=== PATIENT | male | born 1960 | race Hispanic/Latino ===

== ENCOUNTER 2017-08-30 21:00 | Emergency (ER) | payer OTHER ==
[2017-08-30] MEDS ORDERED: LORazepam 2 MG/ML VIAL ONE (23:30)
[2017-08-30] MEDS ORDERED: MORPHINE 4 MG/ML SYR ONE (23:30)
[2017-08-30] MEDS ORDERED: KETOROLAC 30 MG/ML INJ ONE (23:31)
[2017-08-30] MEDS ORDERED: ONDANSETRON 4 MG/2 ML VIAL ONE (23:31)
[2017-08-30] MEDS ORDERED: SMZ./TMP. 800/160 MG TABLET ONE (23:48)
[2017-08-30] MEDS ORDERED: CLINDAMYCIN HCL 150 MG CAP ONE (23:48)
[2017-08-30] MEDS ORDERED: CLINDAMYCIN 900MG/D5W 900 MG/50 ML BAG IV ONE (23:54)
[2017-08-31] MEDS ORDERED: LIDOCAINE 1% MPF 5 ML VIAL ONE (00:15)
--- NOTE | 2017-08-31 05:12 | ER ---
Nurse's Notes [facility] Name: Gasper Fry Age: 57 yrs Sex: Male : 1960 Arrival Date: 08/30/2017 Time: 21:02 Bed 18 Private MD: Diagnosis: Acute Infected Wound Presentation: 08/30 21:20 Presenting complaint: Patient states: Abscess to left flank, does not know when it lp1 started; States painful;. Transition of care: patient was not received from another setting of care. Onset of symptoms was August 30, 2017. Note Patient acting agitated during triage, irrational. Care prior to arrival: None. 21:20 Method Of Arrival: Ambulatory lp1 21:20 Acuity: DARREL 4 lp1 Triage Assessment: 22:40 General: Appears uncomfortable, well nourished, Behavior is cooperative. rk2 22:40 Pain: Complains of pain in back and left low back. Neuro: Level of Consciousness is rk2 alert, obeys commands, Oriented to person, place, situation. Respiratory: Airway is patent Respiratory effort is even, unlabored, Respiratory pattern is regular, symmetrical. Derm: Skin is pink, warm \T\ dry. Historical: - Allergies: 21:23 Haldol (Anaphylaxis); lp1 21:23 Narcan (Anaphylaxis); lp1 - Home Meds: 21:23 Adderall XR Oral [Active]; Cogentin Oral [Active]; Risperdal Oral [Active]; Novolin lp1 70/30 [place] Sub-Q [Active]; Klonopin Oral [Active]; Glucophage Oral [Active]; - PMHx: 21:23 ADD/ADHD; Anxiety; Bipolar disorder; Cellulitis; CVA; Diabetes - IDDM; Hypertension; lp1 neuropathy; Seizures; - PSHx: 21:23 eye surgery; back surgery; toe amputation; lp1 - Immunization history:: Adult Immunizations up to date. - Social history:: Smoking status: Patient uses tobacco products. - Family history:: not pertinent. - Hospitalizations: : No recent hospitalization is reported. - History obtained from: mother. Screenin:23 Abuse screen: Denies threats or abuse. Denies injuries from another. Nutritional lp1 screening: No deficits noted. Tuberculosis screening: No symptoms or risk factors identified. Fall Risk None identified. Assessment: 23:30 Reassessment: Pt. c/o lower back pain, however, has neuropathy in his legs... c/o of rk2 pain \T\ this time. Mother at bedside and patient medicated. 08/31 00:52 Reassessment: Pt. sleeping in room \T\ this time... mother \T\ bedside. Pt. appears to be rk 2 more comfortable after pain medications. Pt. appears to be in no obvious distress. 01:30 Reassessment: Pt. sleeping in room, mother \T\ bedside... appears restless while rk2 sleeping; however, in no obvious distress. No needs voiced \T\ this time. Vital Signs: 08/30 21:23 BP 190 / 71 RA Sitting; Pulse 100; Resp 18; Temp 98.4(TE); Pulse Ox 98% on R/A; Weight lp1 90.72 kg; Height 6 ft. 0 in. (182.88 cm); Pain 10/10; 23:00 BP 140 / 82; Pulse 92; Resp 18; rk2 08/31 01:00 BP 132 / 79; Pulse 94; Resp 16; Pulse Ox 99% on R/A; rk2 08/30 21:23 Body Mass Index 27.13 (90.72 kg, 182.88 cm) lp1 ED Course: 08/30 21:02 Patient arrived in ED. do 21:21 Triage completed. lp1 21:21 Arm band placed on left wrist. lp1 22:32 Roberto Gauthier MD is Attending Physician. ut 22:32 Chelsey Faustin RN is Primary Nurse. 2 08/31 02:30 Patient has correct armband on for positive identification. fc 02:30 No provider procedures requiring assistance completed. Patient did not have IV access fc during this emergency room visit. Administered Medications: 08/30 23: Drug: morphine 4 mg Route: IVP; Site: right forearm; rk2 08/31 00:55 Follow up: Response: No adverse reaction 2 08/30 23: Drug: Zofran 4 mg Route: IVP; Site: right forearm; rk2 08/31 00:55 Follow up: Response: No adverse reaction 2 08/30 23: Drug: Ativan 1 mg Route: IVP; Site: right forearm; rk2 08/31 00:55 Follow up: Response: No adverse reaction rk2 08/30 23:27 Drug: TORadol 30 mg Route: IVP; Site: right forearm; rk2 08/31 00:55 Follow up: Response: No adverse reaction rk2 08/30 23:33 Drug: Bactrim (160 mg-800 mg (DS) 1 tablet Route: PO; rk2 08/31 00:55 Follow up: Response: No adverse reaction rk2 08/30 23:50 Drug: Clindamycin 900 mg Route: IVPB; Infused Over: 30 mins; Site: right forearm; rk2 08/31 00:20 Follow up: IV Status: Completed infusion rk2 Outcome: 01:50 Discharge ordered by . ut 01:51 Discharge ordered by . ut 02:30 Discharged to home ambulatory. 02:30 Condition: good 02:30 Discharge instructions given to patient, family, Instructed on discharge instructions, follow up and referral plans. medication usage, wound care, Demonstrated understanding of instructions, follow-up care, medications, wound care, Prescriptions given X 1. 04:56 Patient left the ED. fc Signatures: Tali Olvera RN MALU Barbara Conway RN RN lp1 Daria Russ William, MD MD wa Kidder, Rhonda, RN RN rk2 Corrections: (The following items were deleted from the chart) 08/30 21:26 21:23 Pulse 100bpm; Resp 18bpm; Pulse Ox 98% RA; Temp 98.4F Temporal; 90.72 kg; Height lp1 6 ft. 0 in.; BMI: 27.1; Pain 10/10; lp1
--- NOTE | 2017-08-31 05:12 | EDPHYS ---
Physician Documentation [facility] Name: Gasper Fry Age: 57 yrs Sex: Male : 1960 Arrival Date: 08/30/2017 Time: 21:02 Bed 18 Private MD: ED Physician Roberto Gauthier HPI: 08/30 23:36 This 57 yrs old Male presents to ER via Ambulatory with complaints of Wound wa Infection. 23:36 the patient presents with a swollen area of the left low back. Description: The wa affected area is moderate sized, irregular, erythematous, swollen. Onset: The symptoms/episode began/occurred 2 day(s) ago. Possible cause(s): unknown. Associated signs and symptoms: Pertinent positives: pain, Pertinent negatives: drainage, fever, headache, nausea. Modifying factors: the symptoms are alleviated by nothing, the symptoms are aggravated by pressure, squeezing the lesion and expressing the contents, touching. Severity of symptoms: At their worst the symptoms were moderate, in the emergency department the symptoms are unchanged. The patient has not experienced similar symptoms in the past. The patient has not recently seen a physician. Historical: - Allergies: 21:23 Haldol (Anaphylaxis); lp1 21:23 Narcan (Anaphylaxis); lp1 - Home Meds: 21:23 Adderall XR Oral [Active]; Cogentin Oral [Active]; Risperdal Oral [Active]; Novolin lp1 70/30 [place] Sub-Q [Active]; Klonopin Oral [Active]; Glucophage Oral [Active]; - PMHx: 21:23 ADD/ADHD; Anxiety; Bipolar disorder; Cellulitis; CVA; Diabetes - IDDM; Hypertension; lp1 neuropathy; Seizures; - PSHx: 21:23 eye surgery; back surgery; toe amputation; lp1 - Immunization history:: Adult Immunizations up to date. - Social history:: Smoking status: Patient uses tobacco products. - Family history:: not pertinent. - Hospitalizations: : No recent hospitalization is reported. - History obtained from: mother. ROS: 23:38 Constitutional: Negative for fever, chills, and weight loss, Eyes: Negative for injury, wa pain, redness, and discharge, ENT: Negative for injury, pain, and discharge, Neck: Negative for injury, pain, and swelling, Cardiovascular: Negative for chest pain, palpitations, and edema, Respiratory: Negative for shortness of breath, cough, wheezing, and pleuritic chest pain, Abdomen/GI: Negative for abdominal pain, nausea, vomiting, diarrhea, and constipation, : Negative for injury, bleeding, discharge, and swelling, MS/Extremity: Negative for injury and deformity, Neuro: Negative for headache, weakness, numbness, tingling, and seizure. 23:38 Back: Positive for of the left low back, tender wound. . 23:38 Skin: Positive for of the left low back, wound. 23:38 All other systems are negative. Exam: 23:39 Constitutional: This is a well developed, well nourished patient who is awake, alert, wa and in no acute distress. Head/Face: Normocephalic, atraumatic. Eyes: Pupils equal round and reactive to light, extra-ocular motions intact. Lids and lashes normal. Conjunctiva and sclera are non-icteric and not injected. Cornea within normal limits. Periorbital areas with no swelling, redness, or edema. ENT: Nares patent. No nasal discharge, no septal abnormalities noted. Tympanic membranes are normal and external auditory canals are clear. Oropharynx with no redness, swelling, or masses, exudates, or evidence of obstruction, uvula midline. Mucous membranes moist. Neck: Trachea midline, no thyromegaly or masses palpated, and no cervical lymphadenopathy. Supple, full range of motion without nuchal rigidity, or vertebral point tenderness. No Meningismus. Cardiovascular: Regular rate and rhythm with a normal S1 and S2. No gallops, murmurs, or rubs. Normal PMI, no JVD. No pulse deficits. Respiratory: Lungs have equal breath sounds bilaterally, clear to auscultation and percussion. No rales, rhonchi or wheezes noted. No increased work of breathing, no retractions or nasal flaring. Abdomen/GI: Soft, non-tender, with normal bowel sounds. No distension or tympany. No guarding or rebound. No evidence of tenderness throughout. MS/ Extremity: Pulses equal, no cyanosis. Neurovascular intact. Full, normal range of motion. Neuro: Awake and alert, GCS 15, oriented to person, place, time, and situation. Cranial nerves II-XII grossly intact. Motor strength 5/5 in all extremities. Sensory grossly intact. Cerebellar exam normal. Normal gait. Psych: Awake, alert, with orientation to person, place and time. Behavior, mood, and affect are within normal limits. 23:39 Back: pain, that is moderate, of the left low back, wound. noted scab in center of wound. 23:39 Skin: noted wound with central scab L lower back no surrounding redness. tender to palp. Vital Signs: 21:23 BP 190 / 71 RA Sitting; Pulse 100; Resp 18; Temp 98.4(TE); Pulse Ox 98% on R/A; Weight lp1 90.72 kg; Height 6 ft. 0 in. (182.88 cm); Pain 10/10; 23:00 BP 140 / 82; Pulse 92; Resp 18; rk2 08/31 01:00 BP 132 / 79; Pulse 94; Resp 16; Pulse Ox 99% on R/A; rk2 08/30 21:23 Body Mass Index 27.13 (90.72 kg, 182.88 cm) lp1 MDM: 08/30 22:32 Patient medically screened. ne 23:41 Differential diagnosis: abscess, cellulitis, ulcer. Data reviewed: vital signs, nurses wa notes. 08/30 22:51 Order name: IV Start; Complete Time: 23:39 ne 08/30 23:04 Order name: I\T\D Setup; Complete Time: 23:50 ne Administered Medications: 23:26 Drug: morphine 4 mg Route: IVP; Site: right forearm; [facility] 08/31 00:55 Follow up: Response: No adverse reaction [facility] 08/30 23:26 Drug: Zofran 4 mg Route: IVP; Site: right forearm; 08/31 00:55 Follow up: Response: No adverse reaction [facility] 08/30 23:26 Drug: Ativan 1 mg Route: IVP; Site: right forearm; [facility] 08/31 00:55 Follow up: Response: No adverse reaction [facility] 08/30 23:27 Drug: TORadol 30 mg Route: IVP; Site: right forearm; [facility] 08/31 00:55 Follow up: Response: No adverse reaction [facility] 08/30 23:33 Drug: Bactrim (160 mg-800 mg (DS) 1 tablet Route: PO; [facility] 08/31 00:55 Follow up: Response: No adverse reaction [facility] 08/30 23:50 Drug: Clindamycin 900 mg Route: IVPB; Infused Over: 30 mins; Site: right forearm; rk2 08/31 00:20 Follow up: IV Status: Completed infusion rk2 Disposition: 08/31/17 01:51 Discharged to Home. Impression: Acute Infected Wound. - Condition is Stable. - Prescriptions for Clindamycin HCl 300 mg Oral Capsule - take 1 capsule by ORAL route every 8 hours for 7 days; 21 capsule. - Medication Reconciliation Form, Thank You Letter, Antibiotic Education, Prescription Opioid Use form. - Follow up: Private Physician; When: 2 - 3 days; Reason: Recheck today's complaints. - Problem is new. - Symptoms have improved. - Notes: follow up with your doctor for wound care Signatures: Tali Olvera RN RN Barbara Conway RN RN lp1 Roberto Gauthier MD MD wa Kidder, Rhonda, RN RN rk2
[2017-08-31 06:00] VITALS: TEMP 98.4
[2017-08-31 06:02] VITALS: BP 132/79; O2SAT 99
== END 2017-08-31 04:56 | disposition home or self-care (01) ==
LOC: ER 21:00
DX: L08.89 Other specified local infections of the skin and subcutaneous tissue (principal); S31.000A Unspecified open wound of lower back and pelvis without penetration into retroperitoneum, initial encounter; I10 Essential (primary) hypertension; E11.9 Type 2 diabetes mellitus without complications; F31.9 Bipolar disorder, unspecified; F90.9 Attention-deficit hyperactivity disorder, unspecified type; Z88.5 Allergy status to narcotic agent
CPT/HCPCS: 96365; 96375; 99283; J2405

== ENCOUNTER 2017-09-23 23:35 | Emergency (ER) | payer OTHER ==
--- NOTE | 2017-09-24 00:43 | ER ---
Nurse's Notes [facility] Name: Gasper Fry Age: 57 yrs Sex: Male : 1960 Arrival Date: 09/23/2017 Time: 23:38 Bed 16 Private MD: Diagnosis: Dental caries Presentation: 09/24 00:35 Presenting complaint: Patient states: "I have some infected teeth, it is hurting in the jd3 front bottom and in the back on the left which is is making my left ear hurt". Transition of care: patient was not received from another setting of care. Onset of symptoms was September 21, 2017. Initial Sepsis Screen: Does the patient meet any 2 criteria? No. Patient's initial sepsis screen is negative. Does the patient have a suspected source of infection? No. Patient's initial sepsis screen is negative. Care prior to arrival: None. 00:35 Method Of Arrival: Ambulatory jd3 00:35 Acuity: DARREL 4 jd3 Historical: - Allergies: 00:38 Haldol (Anaphylaxis); jd3 00:38 Narcan (Anaphylaxis); jd3 - Home Meds: 00:38 Adderall XR Oral [Active]; Cogentin Oral [Active]; Glucophage Oral [Active]; Klonopin jd3 Oral [Active]; Novolin 70/30 [place] Sub-Q [Active]; Risperdal Oral [Active]; - PMHx: 00:38 Anxiety; ADD/ADHD; Bipolar disorder; Cellulitis; CVA; Diabetes - IDDM; Hypertension; jd3 neuropathy; Seizures; - PSHx: 00:38 eye surgery; back surgery; toe amputation; jd3 - Immunization history:: Adult Immunizations up to date. - Social history:: Smoking status: Patient uses tobacco products, smokes one-half pack cigarettes per day. Screenin:40 Abuse screen: Denies threats or abuse. Nutritional screening: No deficits noted. jd3 Tuberculosis screening: No symptoms or risk factors identified. Fall Risk None identified. Assessment: 00:40 General: Appears in no apparent distress. uncomfortable, Behavior is calm, cooperative, jd3 appropriate for age. Pain: Complains of pain in mouth Pain currently is 9 out of 10 on a pain scale. Quality of pain is described as aching. Neuro: Level of Consciousness is awake, alert, obeys commands, Oriented to person, place, time, situation. Cardiovascular: Capillary refill < 3 seconds Patient's skin is warm and dry. Respiratory: Airway is patent Respiratory effort is even, unlabored, Respiratory pattern is regular, symmetrical. GI: No signs and/or symptoms were reported involving the gastrointestinal system. : No signs and/or symptoms were reported regarding the genitourinary system. EENT: Oral mucosa is moist. Poor dentition noted. Derm: Skin is intact, Skin is dry, Skin is normal, Skin temperature is warm. Musculoskeletal: Circulation, motion, and sensation intact. Range of motion: intact in all extremities. 01:03 Reassessment: Patient appears in no apparent distress at this time. Patient and/or jd3 family updated on plan of care and expected duration. Pain level reassessed. Patient is alert, oriented x 3, equal unlabored respirations, skin warm/dry/pink. pt reported understanding of discharge instructions, even and steady gait upon discharge. Vital Signs: 00:39 BP 165 / 99; Pulse 88; Resp 19 S; Temp 98.1(O); Pulse Ox 98% on R/A; Weight 90.72 kg jd3 (R); Height 6 ft. 0 in. (182.88 cm) (R); Pain 9/10; 00:39 Body Mass Index 27.12 (90.72 kg, 182.88 cm) [facility] ED Course: 09/23 23:38 Patient arrived in ED. es 18 00:12 Lubna Williamson FNP-C is PSYCHIATRICP. kb 00:12 Lnace Ponce MD is Attending Physician. kb 00:34 Cirilo Castro RN is Primary Nurse. jd3 00:36 Triage completed. jd3 00:39 Arm band placed on. jd3 00:40 Patient has correct armband on for positive identification. Bed in low position. Call j light in reach. Side rails up X 1. 01:04 No provider procedures requiring assistance completed. Patient did not have IV access jd3 during this emergency room visit. Administered Medications: 00:55 Drug: Augmentin 875 mg Route: PO; jd3 01:02 Follow up: Response: Medication administered at discharge. jd3 00:55 Drug: [place] (7.5 mg-325 mg) 1 tabs Route: PO; jd3 01:03 Follow up: Response: Medication administered at discharge. jd3 Outcome: 00:42 Discharge ordered by MD. bernal 01:04 Discharged to home ambulatory. jd3 01:04 Condition: stable 01:04 Discharge instructions given to patient, Instructed on discharge instructions, follow up and referral plans. medication usage, Demonstrated understanding of instructions, follow-up care, medications, Prescriptions given X 1. 01:05 Patient left the ED. jd3 Signatures: Lubna Williamson, MODELING MANAGER-C MODELING MANAGER-Gerri Abraham Jonathon, RN RN jd3
--- NOTE | 2017-09-24 00:43 | EDPHYS ---
Physician Documentation [facility] Name: Gasper Fry Age: 57 yrs Sex: Male : 1960 Arrival Date: 09/23/2017 Time: 23:38 Bed 16 Private MD: ED Physician Lance Ponce HPI: 09/24 00:39 This 57 yrs old Male presents to ER via Ambulatory with complaints of Infected kb teeth. 00:39 The patient presents with pain, redness, swelling. The problem is located in the lower kb left first molar, lower left second bicuspid, lower left first bicuspid, lower left cuspid and lower left lateral incisor. Onset: The symptoms/episode began/occurred 3 day(s) ago. Duration: The symptoms are continuous. Modifying factors: The symptoms are alleviated by nothing, the symptoms are aggravated by nothing. Associated signs and symptoms: Pertinent positives: pain, redness in area, swelling. Severity of symptoms: At their worst the symptoms were moderate, in the emergency department the symptoms are unchanged. The patient has not experienced similar symptoms in the past. The patient has not recently seen a physician. Historical: - Allergies: 00:38 Haldol (Anaphylaxis); jd3 00:38 Narcan (Anaphylaxis); jd3 - Home Meds: 00:38 Adderall XR Oral [Active]; Cogentin Oral [Active]; Glucophage Oral [Active]; Klonopin jd3 Oral [Active]; Novolin 70/30 [place] Sub-Q [Active]; Risperdal Oral [Active]; - PMHx: 00:38 Anxiety; ADD/ADHD; Bipolar disorder; Cellulitis; CVA; Diabetes - IDDM; Hypertension; jd3 neuropathy; Seizures; - PSHx: 00:38 eye surgery; back surgery; toe amputation; jd3 - Immunization history:: Adult Immunizations up to date. - Social history:: Smoking status: Patient uses tobacco products, smokes one-half pack cigarettes per day. ROS: 00:38 Constitutional: Negative for fever, chills, and weight loss, Cardiovascular: Negative kb for chest pain, palpitations, and edema, Respiratory: Negative for shortness of breath, cough, wheezing, and pleuritic chest pain, Abdomen/GI: Negative for abdominal pain, nausea, vomiting, diarrhea, and constipation, MS/Extremity: Negative for injury and deformity, Skin: Negative for injury, rash, and discoloration, Neuro: Negative for headache, weakness, numbness, tingling, and seizure. 00:38 ENT: Positive for dental pain, ear pain. Exam: 00:38 Constitutional: This is a well developed, well nourished patient who is awake, alert, kb and in no acute distress. Head/Face: Normocephalic, atraumatic. Chest/axilla: Normal chest wall appearance and motion. Nontender with no deformity. No lesions are appreciated. Cardiovascular: Regular rate and rhythm with a normal S1 and S2. No gallops, murmurs, or rubs. Normal PMI, no JVD. No pulse deficits. Respiratory: Lungs have equal breath sounds bilaterally, clear to auscultation and percussion. No rales, rhonchi or wheezes noted. No increased work of breathing, no retractions or nasal flaring. Abdomen/GI: Soft, non-tender, with normal bowel sounds. No distension or tympany. No guarding or rebound. No evidence of tenderness throughout. Skin: Warm, dry with normal turgor. Normal color with no rashes, no lesions, and no evidence of cellulitis. MS/ Extremity: Pulses equal, no cyanosis. Neurovascular intact. Full, normal range of motion. Neuro: Awake and alert, GCS 15, oriented to person, place, time, and situation. Cranial nerves II-XII grossly intact. Motor strength 5/5 in all extremities. Sensory grossly intact. Cerebellar exam normal. Normal gait. 00:38 ENT: Dental exam: dental caries, that is moderate, gum swelling, that is mild, missing teeth, diffusely, pain, that is moderate. Vital Signs: 00:39 BP 165 / 99; Pulse 88; Resp 19 S; Temp 98.1(O); Pulse Ox 98% on R/A; Weight 90.72 kg jd3 (R); Height 6 ft. 0 in. (182.88 cm) (R); Pain 9/10; 00:39 Body Mass Index 27.12 (90.72 kg, 182.88 cm) jd3 MDM: 00:12 Patient medically screened. kb 00:38 Data reviewed: vital signs, nurses notes. Data interpreted: Pulse oximetry: on room air kb is 100 %. Interpretation: normal. Counseling: I had a detailed discussion with the patient and/or guardian regarding: the historical points, exam findings, and any diagnostic results supporting the discharge/admit diagnosis, the need for outpatient follow up, a dentist, to return to the emergency department if symptoms worsen or persist or if there are any questions or concerns that arise at home. Administered Medications: 00:55 Drug: Augmentin 875 mg Route: PO; jd3 01:02 Follow up: Response: Medication administered at discharge. jd3 00:55 Drug: [place] (7.5 mg-325 mg) 1 tabs Route: PO; jd3 01:03 Follow up: Response: Medication administered at discharge. jd3 Disposition: 09/24/17 00:42 Discharged to Home. Impression: Dental caries. - Condition is Stable. - Discharge Instructions: Dental Pain, [id number]. - Prescriptions for Augmentin 875- 125 mg Oral Tablet - take 1 tablet by ORAL route every 12 hours for 10 days; 20 tablet. - Medication Reconciliation Form, Thank You Letter, Antibiotic Education, Prescription Opioid Use form. - Follow up: Emergency Department; When: As needed; Reason: Worsening of condition. Follow up: Private Physician; When: 2 - 3 days; Reason: Recheck today's complaints, Continuance of care, Re-evaluation by your physician. Addendum: 09/25/2017 18:59 Co-signature as Attending Physician, Lance Ponce MD I agree with the assessment and c hickey plan of care. Signatures: Lubna Williamson, AUDIO VISUAL ARTS DIRECTOR-C AUDIO VISUAL ARTS DIRECTOR-Ckb Lance Ponce MD MD cha Davies, Jonathon, RN RN jd3
[2017-09-24] MEDS ORDERED: AMOX/K CLAV 875 MG TAB ONE (00:57)
[2017-09-24] MEDS ORDERED: HYDROCODONE/APAP 7.5/325 MG TAB ONE (00:57)
[2017-09-24 01:10] VITALS: BP 165/99; TEMP 98.1; O2SAT 98
== END 2017-09-24 01:05 | disposition home or self-care (01) ==
LOC: ER 23:35
DX: K02.9 Dental caries, unspecified (principal); F17.210 Nicotine dependence, cigarettes, uncomplicated; I10 Essential (primary) hypertension; E11.9 Type 2 diabetes mellitus without complications; F31.9 Bipolar disorder, unspecified; Z86.73 Personal history of transient ischemic attack (TIA), and cerebral infarction without residual deficits; Z88.4 Allergy status to anesthetic agent; Z88.8 Allergy status to other drugs, medicaments and biological substances; Z79.4 Long term (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
CPT/HCPCS: 99283

== ENCOUNTER 2017-12-31 00:41 | Emergency (ER) | payer OTHER ==
[2017-12-31 01:38] LABS: Absolute Lymphocytes (CBC) 1.5 K/uL (0.7-4.9); Absolute Monocytes 0.5 K/uL (0.1-1.3); Absolute Neutrophil 3.3 K/uL (1.8-8.0); Basophils % 0.8 % (0-1.3); Eosinophils % 1.9 % (0-4.4); Lymphocytes % 28.3 % (15.3-44.8); MCH 32.6 pg (27.0-35.0); MPV 9.3 fL (7.6-11.3); Monocytes % 8.7 % (3.3-12.3); RBC Red Blood Cell Count 4.26 M/uL (4.33-5.43)
[2017-12-31 01:56] LABS: ALT/SGPT 35 U/L (12-78); AST/SGOT 28 U/L (15-37); Albumin 3.7 g/dL (3.4-5.0); Alkaline Phosphatase 150 U/L (45-117); BUN Blood Urea Nitrogen 17 mg/dL (7-18); Bicarbonate 25 mmol/L (21-32); Bilirubin Direct < 0.1 mg/dL (0-0.2); Bilirubin Total 0.3 mg/dL (0.2-1.0); CKMB Creatine Kinase MB 3.2 ng/mL (0.3-3.6); Creatine Phosphokinase 111 U/L (39-308); NT PRO-BNP 172 pg/mL (<125); Potassium 4.1 mmol/L (3.5-5.1); Protein, Total 7.4 g/dL (6.4-8.2); Sodium Level 135 mmol/L (136-145)
[2017-12-31 01:58] LABS: Glucose Level 498 mg/dL (74-106); Magnesium 1.4 mg/dL (1.8-2.4)
[2017-12-31 02:02] LABS: Protime INR 0.91
[2017-12-31] MEDS ORDERED: NA CHLORIDE 0.9% 1,000 ML ONE ×2 (02:09→03:31)
[2017-12-31] MEDS ORDERED: Magnesium Sulfate 1gm IVPB 1 GM/50 ML BAG IV ONE (02:09)
[2017-12-31] MEDS ORDERED: INSULIN -REGULAR HUMAN 50 UNIT/0.5 ML ML ONE (02:09)
[2017-12-31] MEDS ORDERED: MORPHINE 4 MG/ML SYR ONE (02:30)
[2017-12-31] MEDS ORDERED: PROMETHAZINE 25 MG/ML VIAL ONE (02:30)
[2017-12-31 03:51] LABS: Urine Blood NEGATIVE (NEG); Urine Glucose 2+ (NEG); Urine Protein 1+ (NEG); Urine pH 5.5 (5.0-7.0)
--- NOTE | 2017-12-31 04:14 | EDPHYS ---
Physician Documentation [facility] Name: Gasper Fry Age: 57 yrs Sex: Male : 1960 Arrival Date: 12/31/2017 Time: 00:42 Bed 14 Private MD: ED Physician Johan Weinstein HPI: 12/31 02:00 This 57 yrs old Male presents to ER via Wheelchair with complaints of Chest pm1 Pain. 03:28 The patient or guardian reports chest pain that is located primarily in the anterior pm1 chest wall, right. Onset: 4 day(s) ago. The pain does not radiate. Associated signs and symptoms: Pertinent negatives: abdominal pain, cough, diaphoresis, dizziness, headache, nausea, shortness of breath, vomiting. The chest pain is described as aching. Duration: The patient or guardian reports a single episode, that is still ongoing. Modifying factors: The symptoms are alleviated by nothing. the symptoms are aggravated by emotionally stressful situations, palpation of area. Severity of pain: in the emergency department the pain is actually worse. The patient has experienced similar episodes in the past, several times. The patient has been recently seen by a physician: for apparently unrelated complaints, wound care center right foot wound. Patient reports chest pain increased when blood pressure cuff was placed on his right lower leg for lower extremity arterial exam. Historical: - Allergies: 00:53 No Known Drug Allergies; aa1 - PMHx: 00:53 ADD/ADHD; Anxiety; Bipolar disorder; Cellulitis; CVA; Diabetes - IDDM; Hypertension; aa1 neuropathy; Seizures; - PSHx: 00:53 eye surgery; back surgery; toe amputation; Knee surgery; aa1 - Immunization history:: Flu vaccine is not up to date. - Social history:: Smoking status: Patient uses tobacco products, smokes one-half pack cigarettes per day. - Ebola Screening: : No symptoms or risks identified at this time. ROS: 03:31 Constitutional: Negative for fever, chills, and weight loss, Eyes: Negative for injury, pm1 pain, redness, and discharge, ENT: Negative for injury, pain, and discharge, Neck: Negative for injury, pain, and swelling. 03:31 Respiratory: Negative for shortness of breath, cough, wheezing, and pleuritic chest pain, Abdomen/GI: Negative for abdominal pain, nausea, vomiting, diarrhea, and constipation, Back: Negative for injury and pain, : Negative for injury, bleeding, discharge, and swelling, MS/Extremity: Negative for injury and deformity, Skin: Negative for injury, rash, and discoloration, Neuro: Negative for headache, weakness, numbness, tingling, and seizure. 03:31 Cardiovascular: Positive for chest pain, Negative for edema, orthopnea, palpitations. Exam: 03:31 Constitutional: This is a well developed, well nourished patient who is awake, alert, pm1 and in no acute distress. Head/Face: Normocephalic, atraumatic. Eyes: Pupils equal round and reactive to light, extra-ocular motions intact. Lids and lashes normal. Conjunctiva and sclera are non-icteric and not injected. Cornea within normal limits. Periorbital areas with no swelling, redness, or edema. ENT: Nares patent. No nasal discharge, no septal abnormalities noted. Tympanic membranes are normal and external auditory canals are clear. Oropharynx with no redness, swelling, or masses, exudates, or evidence of obstruction, uvula midline. Mucous membranes moist. Neck: Trachea midline, no thyromegaly or masses palpated, and no cervical lymphadenopathy. Supple, full range of motion without nuchal rigidity, or vertebral point tenderness. No Meningismus. 03:31 Cardiovascular: Regular rate and rhythm with a normal S1 and S2. No gallops, murmurs, or rubs. Normal PMI, no JVD. No pulse deficits. 03:31 Respiratory: Lungs have equal breath sounds bilaterally, clear to auscultation and percussion. No rales, rhonchi or wheezes noted. No increased work of breathing, no retractions or nasal flaring. Abdomen/GI: Soft, non-tender, with normal bowel sounds. No distension or tympany. No guarding or rebound. No evidence of tenderness throughout. Back: No spinal tenderness. No costovertebral tenderness. Full range of motion. Skin: Warm, dry with normal turgor. Normal color with no rashes, no lesions, and no evidence of cellulitis. MS/ Extremity: Pulses equal, no cyanosis. Neurovascular intact. Full, normal range of motion. 03:31 Chest/axilla: Inspection: normal, Palpation: tenderness, that is mild, of the anterior aspect of right upper chest, that totally reproduces the patient's complaints. 03:31 NSR. No STEMI 03:31 Neuro: Orientation: is normal, Motor: is normal, moves all fours, Sensation: is normal, no obvious gross deficits. Vital Signs: 00:53 BP 197 / 98; Pulse 88; Resp 20; Temp 98.7; Pulse Ox 98% on R/A; Weight 95.25 kg; Height aa1 6 ft. 0 in. (182.88 cm); Pain 10/10; 01:04 BP 171 / 83; Pulse 83; Resp 16; Pulse Ox 98% on R/A; aa1 01:48 BP 165 / 91; Pulse 76; Resp 20; Pulse Ox 99% on R/A; aa1 02:48 BP 149 / 95; Pulse 70; Resp 16; Pulse Ox 98% on R/A; aa1 03:41 BP 157 / 94; Pulse 79; Resp 20; Pulse Ox 100% on R/A; aa1 04:00 BP 158 / 79; Pulse 82; Resp 20; Pulse Ox 97% on R/A; Pain 10/10; aa1 00:53 Body Mass Index 28.48 (95.25 kg, 182.88 cm) aa1 MDM: 00:51 Patient medically screened. pm1 02:04 Data reviewed: vital signs. Data interpreted: Pulse oximetry: on room air is 99 %. pm1 Interpretation: normal. 02:04 ED course: No anion gap present. Patient with hyperglycemia. Will treat with insulin pm1 and IV fluids. 12/31 00:55 Order name: Basic Metabolic Panel; Complete Time: 01:59 pm12/31 00:55 Order name: CBC with Diff; Complete Time: 01:56 pm12/31 00:55 Order name: Ckmb; Complete Time: 01:59 pm12/31 00:55 Order name: CPK; Complete Time: : pm12/31 00:55 Order name: LFT's; Complete Time: 01: pm12/31 00:55 Order name: Magnesium; Complete Time: 01:59 pm12/31 00:55 Order name: NT PRO-BNP; Complete Time: 01:59 pm12/31 00:55 Order name: PT-INR; Complete Time: 02:04 pm12/31 00:55 Order name: Ptt, Activated; Complete Time: 02:04 pm12/31 00:55 Order name: Troponin (emerg Dept Use Only); Complete Time: 01:56 pm12/31 00:55 Order name: XRAY Chest (1 view) 12/31 03:43 Order name: Urine Dipstick--Ancillary (enter results); Complete Time: 04:02 ms 12/31 00:55 Order name: EKG; Complete Time: 00:56 pm12/31 00:55 Order name: Cardiac monitoring; Complete Time: 01:01 pm12/31 00:55 Order name: EKG - Nurse/Tech; Complete Time: 01:01 pm12/31 00:55 Order name: IV Saline Lock; Complete Time: 01:22 pm12/31 00:55 Order name: Labs collected and sent; Complete Time: 01:22 pm12/31 00:55 Order name: O2 Per Protocol; Complete Time: 01:01 pm12/31 00:55 Order name: O2 Sat Monitoring; Complete Time: 01:01 pm12/31 00:55 Order name: Urine Dipstick-Ancillary (obtain specimen); Complete Time: 03:40 pm1 Administered Medications: 02:14 Drug: NS 0.9% 1000 ml Route: IV; Rate: 1000 ml; Site: right antecubital; aa1 03:40 Follow up: IV Status: Completed infusion aa1 02:14 Drug: Insulin Regular Human 10 units {Co-Signature: susy (Kristen Bradshaw RN).} Route: IVP; aa1 Site: right antecubital; 02:14 Drug: Magnesium Sulfate 1 grams Route: IVPB; Infused Over: 1 hrs; Site: right aa1 antecubital; 02:38 Drug: morphine 4 mg Route: IVP; Site: right antecubital; ea 02:39 Drug: Phenergan 12.5 mg Route: IVP; Site: right antecubital; ea 03:40 Drug: NS 0.9% 1000 ml Route: IV; Rate: 1000 ml; Site: right antecubital; aa1 04:14 Follow up: IV Status: pt removed IV bb Disposition: 04:12 Co-signature as Attending Physician, Johan Weinstein MD. pkl Disposition: 12/31/17 04:13 Discharged to Home. Impression: Chest pain. Uncontrolled diabetes. - Condition is Stable. - Medication Reconciliation Form, Thank You Letter, Antibiotic Education, Prescription Opioid Use form. - Follow up: Private Physician; When: 2 - 3 days; Reason: Re-evaluation by your physician. - Problem is new. - Symptoms have improved. Signatures: Dispatcher [employer] EDMS Mary Ellen Calderón RN RN aa1 Johan Weinstein MD MD pkl Ballard, Brenda, RN RN bb Clif Arndt, INTERIOR PAINTER INTERIOR PAINTER pm1 Kristen Bradshaw RN RN ea Elena Antunez RN ea Corrections: (The following items were deleted from the chart) 04:19 04:13 12/31/2017 04:13 Discharged to Home. Impression: Chest pain. Uncontrolled bb diabetes. Condition is Stable. Forms are Medication Reconciliation Form, Thank You Letter, Antibiotic Education, Prescription Opioid Use. Follow up: Private Physician; When: 2 - 3 days; Reason: Re-evaluation by your physician. Problem is new. Symptoms have improved. pkl
--- NOTE | 2017-12-31 04:14 | ER ---
Nurse's Notes [facility] Name: Gasper Fry Age: 57 yrs Sex: Male : 1960 Arrival Date: 12/31/2017 Time: 00:42 Bed 14 Private MD: Diagnosis: Chest pain. Uncontrolled diabetes Presentation: 12/31 00:50 Presenting complaint: Patient states: R sided CP x 3-4 days but became worse yesterday aa1 after having a blood flow test done in the wound healing clinic. Reports throbbing pain 10/10. Transition of care: patient was not received from another setting of care. Onset of symptoms was December 29, 2017. Risk Assessment: Do you want to hurt yourself or someone else? Patient reports no desire to harm self or others. Initial Sepsis Screen: Does the patient meet any 2 criteria? No. Patient's initial sepsis screen is negative. Does the patient have a suspected source of infection? No. Patient's initial sepsis screen is negative. Care prior to arrival: None. 00:50 Method Of Arrival: Wheelchair aa1 00:50 Acuity: DARREL 3 aa1 Historical: - Allergies: 00:53 No Known Drug Allergies; aa1 - PMHx: 00:53 ADD/ADHD; Anxiety; Bipolar disorder; Cellulitis; CVA; Diabetes - IDDM; Hypertension; aa1 neuropathy; Seizures; - PSHx: 00:53 eye surgery; back surgery; toe amputation; Knee surgery; aa1 - Immunization history:: Flu vaccine is not up to date. - Social history:: Smoking status: Patient uses tobacco products, smokes one-half pack cigarettes per day. - Ebola Screening: : No symptoms or risks identified at this time. Screenin:59 Abuse screen: Denies threats or abuse. Denies injuries from another. Nutritional aa1 screening: No deficits noted. Tuberculosis screening: No symptoms or risk factors identified. Fall Risk None identified. Assessment: 00:59 General: Appears in no apparent distress. comfortable, Behavior is calm, cooperative, aa1 appropriate for age. Pain: Complains of pain in anterior aspect of right upper chest and right breast Pain does not radiate. Pain currently is 10 out of 10 on a pain scale. Quality of pain is described as throbbing, Pain began 3-4 days ago. Neuro: Level of Consciousness is awake, alert, obeys commands, Oriented to person, place, time, situation, Moves all extremities. Cardiovascular: Reports chest pain, Heart tones S1 S2 present Capillary refill < 3 seconds Clubbing of nail beds is absent JVD is absent Rhythm is regular Chest pain is located in right anterior chest wall. Respiratory: Airway is patent Respiratory effort is even, unlabored, Respiratory pattern is regular, symmetrical. GI: No signs and/or symptoms were reported involving the gastrointestinal system. : No signs and/or symptoms were reported regarding the genitourinary system. EENT: No signs and/or symptoms were reported regarding the EENT system. Derm: Skin is intact, is healthy with good turgor, Skin is pink, warm \T\ dry. Musculoskeletal: Circulation, motion, and sensation intact. Capillary refill < 3 seconds. 01:19 Reassessment: Patient and/or family updated on plan of care and expected duration. Pain ea level reassessed. Patient is alert, oriented x 3, equal unlabored respirations, skin warm/dry/pink. 01:48 Reassessment: Patient appears in no apparent distress at this time. Patient and/or aa1 family updated on plan of care and expected duration. Pain level reassessed. Patient is alert, oriented x 3, equal unlabored respirations, skin warm/dry/pink. Awaiting lab results. Pt resting quietly. 02:48 Reassessment: Patient appears in no apparent distress at this time. Patient and/or aa1 family updated on plan of care and expected duration. Pain level reassessed. Patient is alert, oriented x 3, equal unlabored respirations, skin warm/dry/pink. Awaiting provider reassessment. 03:41 Reassessment: Patient appears in no apparent distress at this time. Patient and/or aa1 family updated on plan of care and expected duration. Pain level reassessed. Patient is alert, oriented x 3, equal unlabored respirations, skin warm/dry/pink. 2nd liter NS bolus infusing at this time. 04:12 Reassessment: pt yelling and cussing states he is in pain and he is leaving . Dr Weinstein bb notified and discussed discharge instructions with pt. Pt had removed IV himself. Pt ambulated with steady gait to the exit before paperwork was given. Vital Signs: 00:53 BP 197 / 98; Pulse 88; Resp 20; Temp 98.7; Pulse Ox 98% on R/A; Weight 95.25 kg; Height aa1 6 ft. 0 in. (182.88 cm); Pain 10/10; 01:04 BP 171 / 83; Pulse 83; Resp 16; Pulse Ox 98% on R/A; aa1 01:48 BP 165 / 91; Pulse 76; Resp 20; Pulse Ox 99% on R/A; aa1 02:48 BP 149 / 95; Pulse 70; Resp 16; Pulse Ox 98% on R/A; aa1 03:41 BP 157 / 94; Pulse 79; Resp 20; Pulse Ox 100% on R/A; aa1 04:00 BP 158 / 79; Pulse 82; Resp 20; Pulse Ox 97% on R/A; Pain 10/10; aa1 00:53 Body Mass Index 28.48 (95.25 kg, 182.88 cm) aa1 ED Course: 00:42 Patient arrived in ED. es 00:46 Clif Arndt NP is PHCP. pm1 00:46 Johan Weinstein MD is Attending Physician. pm1 00:49 Mary Ellen Calderón RN is Primary Nurse. aa1 00:51 Triage completed. aa1 00:53 Arm band placed on right wrist. aa1 00:59 Patient has correct armband on for positive identification. Placed in gown. Bed in low aa1 position. Call light in reach. classroom monitor on. Pulse ox on. NIBP on. 00:59 Patient maintains SpO2 saturation greater than 95% on room air. aa1 01:05 Inserted saline lock: 20 gauge in right antecubital area, using aseptic technique. ea Blood collected. 01:06 X-ray completed. Portable x-ray completed in exam room. Patient tolerated procedure kp1 well. 01:09 XRAY Chest (1 view) In Process Unspecified. EDMS 04:15 No provider procedures requiring assistance completed. pt removed IV catheter was bb intact bleeding was controlled. Administered Medications: 02:14 Drug: NS 0.9% 1000 ml Route: IV; Rate: 1000 ml; Site: right antecubital; aa1 03:40 Follow up: IV Status: Completed infusion aa1 02:14 Drug: Insulin Regular Human 10 units {Co-Signature: susy (Kristen Bradshaw RN).} Route: IVP; aa1 Site: right antecubital; 02:14 Drug: Magnesium Sulfate 1 grams Route: IVPB; Infused Over: 1 hrs; Site: right aa1 antecubital; 02:38 Drug: morphine 4 mg Route: IVP; Site: right antecubital; ea 02:39 Drug: Phenergan 12.5 mg Route: IVP; Site: right antecubital; ea 03:40 Drug: NS 0.9% 1000 ml Route: IV; Rate: 1000 ml; Site: right antecubital; aa1 04:14 Follow up: IV Status: pt removed IV bb Outcome: 04:13 Discharge ordered by . marilee 04:16 Condition: stable bb 04:16 Discharged to home ambulatory. bb 04:16 Discharge instructions given to patient, pt instructed on f/u with provider 04:19 Patient left the ED. bb Signatures: Dispatcher [employer] Mary Ellen Rojo RN RN aa1 Johan Weinstein MD MD pkl Salyer, Edna es Ballard, Brenda, RN RN bb Clif Arndt, DEPUTY REGISTER OF DEEDS DEPUTY REGISTER OF DEEDS pm1 Angeline Dean kp1 Kristen Bradshaw RN RN ea Elena Antunez RN ea Corrections: (The following items were deleted from the chart) 04:19 04:12 Reassessment: pt yelling and cussing states he is in pain and he is leaving pt bb removed IV and ambulated with steady gait to the exit bb
[2017-12-31 04:25] VITALS: TEMP 98.7
[2017-12-31 04:30] VITALS: BP 158/79; O2SAT 97
--- NOTE | 2017-12-31 06:46 | EKG ---
Test Date: 2017-12-31 Test Time: 00:46:22 Office Services Associate: ABRAN MEASUREMENT RESULTS: Intervals: Rate: 87 IA: 160 QRSD: 104 QT: 374 QTc: 450 Steen: P: 62 IA: 160 QRS: -33 T: 39 INTERPRETIVE STATEMENTS: Normal sinus rhythm Left axis deviation Abnormal ECG Compared to ECG 02/19/2017 01:09:03 Left-axis deviation now present Electronically Signed On 12-31-17 06:45:56 CDT by Dino Rios
--- NOTE | 2017-12-31 07:21 | RAD REPORT ---
EXAM DESCRIPTION: RAD - Chest Single View - 12/31/2017 1:08 am CLINICAL HISTORY: Chest pain COMPARISON: February 2017 TECHNIQUE: AP portable chest image was obtained 0102 hours . FINDINGS: Shallow inspiration accentuates chest findings. No peripheral consolidation, mass or failu re finding. Lung markings are similar to the comparison. Trachea is midline. Heart and vasculature are normal. No measurable pleural effusion and no pneumothorax. No gross bony abnormality seen. No acute aortic findings suspected. IMPRESSION: No acute cardiopulmonary process. No significant change from comparison.
== END 2017-12-31 04:19 | disposition home or self-care (01) ==
LOC: ER 00:41
DX: R07.9 Chest pain, unspecified (principal); E11.65 Type 2 diabetes mellitus with hyperglycemia; I10 Essential (primary) hypertension; F17.210 Nicotine dependence, cigarettes, uncomplicated
CPT/HCPCS: 36415; 71045; 80048; 80076; 81003; 82550; 82553; 83735; 83880; 84484; 85025; 85610; 85730; 93005; 96361; 96374; 96375; 99285; J2550; J3475; J7030 ×2

== ENCOUNTER 2018-03-17 23:15 | Emergency (ER) | payer OTHER ==
[2018-03-18] MEDS ORDERED: HYDROCODONE/APAP 10/325 TAB ONE (00:39)
[2018-03-18] MEDS ORDERED: KETOROLAC 30 MG/ML INJ ONE (00:39)
--- NOTE | 2018-03-18 01:00 | ER ---
Nurse's Notes [facility] Name: Gasper Fry Age: 58 yrs Sex: Male : 1960 Arrival Date: 03/17/2018 Time: 23:25 Bed 7 Private MD: Rajendra Adkins Diagnosis: Dental caries Presentation: 03/17 23:27 Presenting complaint: Patient states: LEFT lower teeth pain, scheduled to see oral sr5 surgeon tomorrow. Also, c/o pain/wound to base of RIGHT great toe, +open wound, reports "it popped and leaked pus this morning". 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 Transition of care: patient was not received from another setting of care. Onset of symptoms was March 15, 2018. 23:27 Method Of Arrival: Ambulatory sr5 23:27 Acuity: DARREL 3 sr5 03/18 00:04 Risk Assessment: Do you want to hurt yourself or someone else? Patient reports no ea desire to harm self or others. Initial Sepsis Screen: Does the patient meet any 2 criteria? No. Patient's initial sepsis screen is negative. Does the patient have a suspected source of infection? Yes: Skin breakdown/wound. Triage Assessment: 03/17 23:34 General: Appears uncomfortable, Behavior is calm, cooperative. Pain: Complains of pain sr5 in lower left third molar, lower left second molar and lower left first molar Pain currently is 10 out of 10 on a pain scale. EENT: Reports pain in mouth. Neuro: No deficits noted. Cardiovascular: No deficits noted. Respiratory: No deficits noted. Derm: Reports open wound to base of RIGHT great toe, on bottom of foot. Historical: - Allergies: 23:34 Haldol (Anaphylaxis); sr5 23:34 Narcan (Anaphylaxis); sr5 - PMHx: 23:34 ADD/ADHD; Anxiety; Bipolar disorder; Cellulitis; CVA; Diabetes - IDDM; Hypertension; sr5 neuropathy; Seizures; - PSHx: 23:34 eye surgery; back surgery; toe amputation; Knee surgery; sr5 - Immunization history:: Adult Immunizations up to date. - Social history:: Smoking status: Patient/guardian denies using tobacco. - Ebola Screening: : No symptoms or risks identified at this time. - Family history:: not pertinent. - Hospitalizations: : No recent hospitalization is reported. Screenin/10 00:03 Abuse screen: Denies threats or abuse. Nutritional screening: No deficits noted. ea Tuberculosis screening: No symptoms or risk factors identified. Fall Risk None identified. Assessment: 03/17 23:57 General: Appears uncomfortable, Behavior is calm. Pain: Complains of pain in lower left ea first molar and lower left second molar and lower left third molar Pain currently is 10 out of 10 on a pain scale. Quality of pain is described as aching. Neuro: Level of Consciousness is awake, alert, obeys commands, Oriented to person, place, time, situation. Cardiovascular: Patient's skin is warm and dry. Respiratory: Airway is patent Respiratory effort is even, unlabored, Respiratory pattern is regular, symmetrical. GI: No signs and/or symptoms were reported involving the gastrointestinal system. Derm: Wound noted ball of right foot. 03/18 00:37 Reassessment: Patient and/or family updated on plan of care and expected duration. Pain ea level reassessed. Patient is alert, oriented x 3, equal unlabored respirations, skin warm/dry/pink. 01:06 Reassessment: Patient and/or family updated on plan of care and expected duration. Pain ea level reassessed. Patient is alert, oriented x 3, equal unlabored respirations, skin warm/dry/pink. Discharge instructions given to patient, verbalized the understanding of instruction. Vital Signs: 03/17 23:34 BP 158 / 95; Pulse 97; Resp 18; Temp 98.6; Pulse Ox 97% on R/A; Weight 88.45 kg (R); sr5 Height 6 ft. 0 in. (182.88 cm); Pain 03/18; 03/18 00:37 BP 130 / 85; Pulse 90; Resp 18; Pulse Ox 98% on R/A; ea 03/17 23:34 Body Mass Index 26.45 (88.45 kg, 182.88 cm) sr5 ED Course: 03/17 23:25 Patient arrived in ED. am2 23:26 Rajendra Adkins MD is Private Physician. am2 23:33 Triage completed. sr5 23:34 Arm band placed on. sr5 23:50 Tayo Rivas MD is Attending Physician. rn 23:53 Kristen Bradshaw RN is Primary Nurse. ea 03/18 00:05 Patient has correct armband on for positive identification. Bed in low position. Call ea light in reach. Side rails up X 1. 01:10 No provider procedures requiring assistance completed. Patient did not have IV access ea during this emergency room visit. Administered Medications: 00:37 Drug: TORadol 30 mg Route: IM; Site: right deltoid; ea 01:11 Follow up: Response: No adverse reaction ea 00:37 Drug: [place] 10 mg-325 mg 1 tabs Route: PO; ea 01:11 Follow up: Response: No adverse reaction ea Outcome: 01:00 Discharge ordered by . rn 01:10 Discharged to home ambulatory. ea 01:10 Condition: good 01:10 Instructed on discharge instructions, follow up and referral plans. medication usage, Demonstrated understanding of instructions, follow-up care, medications, Prescriptions given X 1. 01:12 Patient left the ED. ea Signatures: Tayo Rivas MD MD rn Resecker, Dameon RN RN sr5 Pat Kendall Elena RN RN ea
--- NOTE | 2018-03-18 01:00 | EDPHYS ---
Physician Documentation [facility] Name: Gasper Fry Age: 58 yrs Sex: Male : 1960 Arrival Date: 03/17/2018 Time: 23:25 Bed 7 Private MD: Rajendra Adkins ED Physician Tayo Rivas HPI: 03/18 00:54 This 58 yrs old Male presents to ER via Ambulatory with complaints of rn Toothache. 00:54 The patient presents with pain. The problem is located in the lower left first molar rn and lower left second molar and lower left third molar. Onset: The symptoms/episode began/occurred at an unknown time. Duration: The symptoms are intermittent. Associated signs and symptoms: Pertinent positives: pain. Severity of symptoms: At their worst the symptoms were moderate, in the emergency department the symptoms are unchanged. The patient has experienced similar episodes in the past. Reports toothache, chronic, just saw dentist this week, referred to oral surgeon, has appt tomorrow, reports pain got worse, came in with hopes of getting pain shot. Also reports chronic wound to right foot, no recent change, reports goes to wound care, has been cleaning wound with betadine. No fever. Would like his foot checked since he is here, but primarily here for teeth. . Historical: - Allergies: 03/17 23:34 Haldol (Anaphylaxis); sr5 23:34 Narcan (Anaphylaxis); sr5 - PMHx: 23:34 ADD/ADHD; Anxiety; Bipolar disorder; Cellulitis; CVA; Diabetes - IDDM; Hypertension; sr5 neuropathy; Seizures; - PSHx: 23:34 eye surgery; back surgery; toe amputation; Knee surgery; sr5 - Immunization history:: Adult Immunizations up to date. - Social history:: Smoking status: Patient/guardian denies using tobacco. - Ebola Screening: : No symptoms or risks identified at this time. - Family history:: not pertinent. - Hospitalizations: : No recent hospitalization is reported. ROS: 03/18 00:54 Constitutional: Negative for fever, chills, and weight loss, Eyes: Negative for injury, rn pain, redness, and discharge, ENT: + dental pain MS/Extremity: Negative for injury and deformity, Skin: + chronic wound to right foot Neuro: Negative for headache, weakness, numbness, tingling, and seizure. Exam: 00:54 Constitutional: This is a well developed, well nourished patient who is awake, alert, rn and in no acute distress. ENT: poor dentition without evidence of oral swelling or abscess, multiple black teeth, even with gum, left mouth worse than right. Skin: warm, dry, right medial foot with chronic wound, no drainage, no warmth, no fluctuance. MS/ Extremity: Pulses equal, no cyanosis. Neurovascular intact. Full, normal range of motion. Equal circumference. Vital Signs: 03/17 23:34 BP 158 / 95; Pulse 97; Resp 18; Temp 98.6; Pulse Ox 97% on R/A; Weight 88.45 kg (R); sr5 Height 6 ft. 0 in. (182.88 cm); Pain 03/18; 03/18 00:37 BP 130 / 85; Pulse 90; Resp 18; Pulse Ox 98% on R/A; ea 03/17 23:34 Body Mass Index 26.45 (88.45 kg, 182.88 cm) sr5 MDM: 03/17 23:50 Patient medically screened. rn 03/18 00:54 Differential diagnosis: dental caries. Data reviewed: vital signs, nurses notes, and as rn a result, I will discharge patient. Counseling: I had a detailed discussion with the patient and/or guardian regarding: the historical points, exam findings, and any diagnostic results supporting the discharge/admit diagnosis, the need for outpatient follow up, to return to the emergency department if symptoms worsen or persist or if there are any questions or concerns that arise at home. Special discussion: I discussed with the patient/guardian in detail that at this point there is no indication for admission to the hospital. It is understood, however, that if the symptoms persist or worsen the patient needs to return immediately for re-evaluation. Based on the history and exam findings, there is no indication for further emergent testing or inpatient evaluation. I discussed with the patient/guardian the need to see a dentist for further evaluation of the symptoms. I discussed with the patient/guardian the need to see the oral maxillofacial surgeon for further evaluation of the symptoms. ED course: Pt already on abx, has pain meds at home and also takes his 's norco, given norco and toradol here, improved, advised him to keep his appt later today with oral surgeon, and continue with wound care. . Administered Medications: 00:37 Drug: TORadol 30 mg Route: IM; Site: right deltoid; ea 01:11 Follow up: Response: No adverse reaction ea 00:37 Drug: [place] 10 mg-325 mg 1 tabs Route: PO; ea 01:11 Follow up: Response: No adverse reaction ea Disposition: 03/18/18 01:00 Discharged to Home. Impression: Dental caries. - Condition is Stable. - Discharge Instructions: Dental Pain. - Prescriptions for Clindamycin HCl 300 mg Oral Capsule - take 1 capsule by ORAL route every 6 hours for 10 days; 40 capsule. - Medication Reconciliation Form, Thank You Letter, Antibiotic Education, Prescription Opioid Use form. - Follow up: Private Physician; When: As needed; Reason: Recheck today's complaints, Re-evaluation by your physician. - Problem is chronic. - Symptoms have improved. Signatures: Tayo Rivas MD MD rn Josué, Dameon RN RN sr5 Kristen Bradshaw RN MALU ea Corrections: (The following items were deleted from the chart) 01:12 01:00 03/18/2018 01:00 Discharged to Home. Impression: Dental caries. Condition is ea Stable. Forms are Medication Reconciliation Form, Thank You Letter, Antibiotic Education, Prescription Opioid Use. Follow up: Private Physician; When: As needed; Reason: Recheck today's complaints, Re-evaluation by your physician. Problem is chronic. Symptoms have improved. rn
[2018-03-18 01:34] VITALS: TEMP 98.6
[2018-03-18 01:35] VITALS: BP 130/85; O2SAT 98
== END 2018-03-18 01:12 | disposition home or self-care (01) ==
LOC: ER 23:15
DX: K02.9 Dental caries, unspecified (principal); I10 Essential (primary) hypertension; Z88.5 Allergy status to narcotic agent
CPT/HCPCS: 96372; 99283

== ENCOUNTER 2018-04-03 21:22 | Emergency (ER) | payer OTHER ==
[2018-04-03] MEDS ORDERED: KETOROLAC 30 MG/ML INJ ONE (21:59)
[2018-04-03 22:13] LABS: Absolute Lymphocytes (CBC) 1.6 K/uL (0.7-4.9); Absolute Monocytes 0.5 K/uL (0.1-1.3); Absolute Neutrophil 3.3 K/uL (1.8-8.0); Basophils % 0.5 % (0-1.3); Hematocrit 35.2 % (39.6-49.0); Lymphocytes % 28.3 % (15.3-44.8); MCH 32.5 pg (27.0-35.0); Monocytes % 8.9 % (3.3-12.3); RBC Red Blood Cell Count 3.83 M/uL (4.33-5.43)
[2018-04-03 22:20] LABS: Urine Blood TRACE (NEG); Urine Glucose 3+ (NEG); Urine Protein 1+ (NEG); Urine pH 5.5 (5.0-7.0)
[2018-04-03 22:32] LABS: Albumin 3.7 g/dL (3.4-5.0); Bilirubin Direct 0.1 mg/dL (0-0.2); Bilirubin Total 0.3 mg/dL (0.2-1.0); Potassium 4.3 mmol/L (3.5-5.1); Protein, Total 7.6 g/dL (6.4-8.2)
[2018-04-03] MEDS ORDERED: NA CHLORIDE 0.9% 1,000 ML ONE (22:33)
[2018-04-03] MEDS ORDERED: INSULIN -REGULAR HUMAN 50 UNIT/0.5 ML ML ONE (22:33)
[2018-04-03 23:15] LABS: Urine Bacteria <20 /HPF (NONE SEEN); Urine Culture Reflex Order NOT NEEDED; Urine RBC <5 /HPF (NONE SEEN)
[2018-04-03] MEDS ORDERED: MORPHINE 4 MG/ML SYR ONE (23:32)
[2018-04-04] MEDS ORDERED: INSULIN -REGULAR HUMAN 50 UNIT/0.5 ML ML ONE (00:27)
--- NOTE | 2018-04-04 00:56 | EDPHYS ---
Physician Documentation [facility] Name: Gasper Fry Age: 58 yrs Sex: Male : 1960 Arrival Date: 04/03/2018 Time: 21:23 Bed 13 Private MD: ED Physician Bernardino Alejandro HPI: 04/03 21:47 This 58 yrs old Male presents to ER via Ambulatory with complaints of Back cp Pain. 21:47 The patient presents with pain that is acute, with no known mechanism of injury. The cp symptoms are located in the left low back. 21:47 The pain radiates to the left leg. cp 21:47 Onset: The symptoms/episode began/occurred 3 day(s) ago. Associated signs and symptoms: cp Pertinent negatives: abdominal pain, chest pain, constipation, dysuria, fever, hematuria, incontinence, numbness, urinary retention, weakness. The problem was sustained from unknown cause. Severity of symptoms: in the emergency department the symptoms are unchanged, despite home interventions. Historical: - Allergies: 21:31 Haldol (Anaphylaxis); aj 21:31 Narcan (Anaphylaxis); aj - Home Meds: 21:31 Adderall XR Oral [Active]; Cogentin Oral [Active]; Glucophage Oral [Active]; Klonopin aj Oral [Active]; Novolin 70/30 [place] Sub-Q [Active]; Risperdal Oral [Active]; Tramadol Oral [Active]; - PMHx: 21:31 ADD/ADHD; Anxiety; Bipolar disorder; Cellulitis; CVA; Diabetes - IDDM; Hypertension; aj neuropathy; Seizures; Chronic pain; - PSHx: 21:31 eye surgery; back surgery; toe amputation; Knee surgery; aj - Immunization history:: Adult Immunizations up to date. - Social history:: Smoking status: Patient/guardian denies using tobacco. - Ebola Screening: : Patient negative for fever greater than or equal to 101.5 degrees Fahrenheit, and additional compatible Ebola Virus Disease symptoms Patient denies exposure to infectious person Patient denies travel to an Ebola-affected area in the 21 days before illness onset No symptoms or risks identified at this time. ROS: 22:00 Constitutional: Negative for body aches, chills, fever, poor PO intake. cp 22:00 Eyes: Negative for injury, pain, redness, and discharge. cp Exam: 22:05 Constitutional: The patient appears in no acute distress, alert, awake, cp non-diaphoretic, non-toxic, well developed, well nourished. 22:05 Head/Face: Normocephalic, atraumatic. cp 22:05 Eyes: Periorbital structures: appear normal, Pupils: equal, round, and reactive to light and accomodation, Conjunctiva: normal, no exudate, no injection, Sclera: no appreciated abnormality, Lids and lashes: appear normal, bilaterally. 22:05 ENT: External ear(s): are unremarkable, Nose: is normal, Mouth: Lips: moist, Oral mucosa: moist, Posterior pharynx: is normal, airway is patent, no erythema, no exudate. 22:05 Neck: ROM/movement: is normal, is supple, without pain, no range of motions limitations, no nuchal rigidity. 22:05 Chest/axilla: Inspection: normal, Palpation: is normal, no crepitus, no tenderness. 22:05 Cardiovascular: Rate: normal, Rhythm: regular, Edema: is not appreciated, JVD: is not appreciated. 22:05 Respiratory: the patient does not display signs of respiratory distress, Respirations: normal, no use of accessory muscles, no retractions, no splinting, no tachypnea, labored breathing, is not present, Breath sounds: are clear throughout, no decreased breath sounds, no stridor, no wheezing. 22:05 Abdomen/GI: Inspection: abdomen appears normal, Bowel sounds: active, all quadrants, Palpation: soft, in all quadrants, nontender, in all quadrants, involuntary guarding, is not appreciated. 22:05 Back: pain, that is moderate, of the left low back, vertebral tenderness, is not appreciated, Straight leg raises: of both lower extremities does not illicit pain. 22:05 Musculoskeletal/extremity: Extremities: grossly normal except: noted in the left leg: pain, There is no evidence of decreased ROM, deformity, swelling, tenderness. 22:05 Skin: cellulitis, is not appreciated. 22:05 Neuro: Orientation: to person, place \T\ time. Mentation: is normal, Cerebellar function: is grossly normal, Motor: moves all fours, strength is normal, Sensation: no obvious gross deficits, Deep tendon reflexes are 2+ (normal) in the right patellar, right Achilles, left patellar and left Achilles. Vital Signs: 21:31 BP 190 / 88; Pulse 89; Resp 19; Temp 97.6; Pulse Ox 100% on R/A; Weight 95.25 kg; aj Height 5 ft. 11 in. (180.34 cm); 21:39 BP 180 / 93; Pulse 80; Resp 18; Pulse Ox 99% on R/A; mt 22:21 BP 155 / 81; Pulse 77; Resp 18; Pulse Ox 99% on R/A; mt 23:16 BP 153 / 109; Pulse 79; Resp 18; Pulse Ox 100% on R/A; mt 23:51 BP 179 / 94; Pulse 72; Resp 18; Pulse Ox 98% on R/A; jb4 04/04 00:35 BP 154 / 70; Pulse 69; Resp 18; Pulse Ox 100% on R/A; jb4 01:08 BP 158 / 76; Pulse 72; Resp 18; Pulse Ox 98% on R/A; jb4 04/03 21:31 Body Mass Index 29.29 (95.25 kg, 180.34 cm) aj MDM: 04/03 21:41 Patient medically screened. cp 22:00 Differential diagnosis: chronic back pain, Fracture Osteomyelitis ruptured disc, cp Ureterolithiasis sciatica, spinal stenosis. 04/04 00:55 Data reviewed: vital signs, nurses notes, lab test result(s), radiologic studies, CT cp scan. 00:55 Counseling: I had a detailed discussion with the patient and/or guardian regarding: the cp historical points, exam findings, and any diagnostic results supporting the discharge/admit diagnosis, lab results, radiology results, the need for outpatient follow up, a family practitioner, to return to the emergency department if symptoms worsen or persist or if there are any questions or concerns that arise at home. 04/03 21:46 Order name: Basic Metabolic Panel; Complete Time: 22:37 cp 04/03 22:38 Interpretation: Normal except: NA 131; CL 94; GLUC 549; BUN 25; CRE 1.60; GFR 45. cp 04/03 21:46 Order name: CBC with Diff; Complete Time: 22:31 cp 04/03 22:31 Interpretation: Normal except: RBC 3.83; HGB 12.4; HCT 35.2. cp 04/03 21:46 Order name: Creatinine for Radiology; Complete Time: 22:31 cp 04/03 22:31 Interpretation: Abnormal: CRE 1.60; GFR 45. cp 04/03 21:46 Order name: Hepatic Function; Complete Time: 22:37 cp 04/03 23:13 Interpretation: Normal except: ALK 211; GLOB 3.9; A/G 0.9. cp 04/03 21:46 Order name: Lipase; Complete Time: 22:37 cp 04/03 21:46 Order name: Urine Microscopic Only; Complete Time: 23:31 cp 04/03 21:46 Order name: CT Stone Protocol cp 04/03 22:05 Order name: Urine Dipstick--Ancillary (enter results); Complete Time: 22:31 ms 04/03 22:31 Interpretation: Normal except: UBLD TRACE; UPROT 1+. cp 04/03 21:46 Order name: Accucheck Blood Glucose; Complete Time: 22:10 cp 04/03 21:46 Order name: IV Saline Lock; Complete Time: 22:10 cp 04/03 21:46 Order name: Labs collected and sent; Complete Time: 22:10 cp 04/03 21:46 Order name: Urine Dipstick-Ancillary (obtain specimen); Complete Time: 22:10 cp 04/03 23:31 Order name: Accucheck Blood Glucose; Complete Time: 23:38 cp Administered Medications: 04/03 22:13 Drug: TORadol 30 mg Route: IVP; Site: right antecubital; 4 04/04 00:29 Follow up: Response: No adverse reaction; Pain is decreased 4 04/03 22:36 Drug: NS 0.9% 1000 ml Route: IV; Rate: 1 bolus; Site: right antecubital; jb4 04/04 00:30 Follow up: Response: No adverse reaction; IV Status: Completed infusion jb4 04/03 22:37 Drug: Insulin Regular Human 10 units {Co-Signature: debbie (Vick Purdy RN).} Route: IVP; rv Site: right antecubital; 23:26 Follow up: Response: No adverse reaction; Blood sugar is lowered jb4 23:36 Drug: morphine 2 mg Route: IVP; Site: left antecubital; jb4 04/04 00:29 Follow up: Response: No adverse reaction; Pain is decreased jb4 00:20 Drug: Insulin Regular Human 10 units {Co-Signature: susy (Kristen Bradshaw RN).} Route: IVP; jb4 Site: right antecubital; 00:42 Follow up: Response: No adverse reaction; Blood sugar is lowered 4 01:06 Drug: Flexeril 10 mg Route: PO; 4 01:07 Follow up: Response: No adverse reaction 4 01:06 Drug: Hydrocodone-Acetaminophen (7.5 mg-325 mg) 1 tabs Route: PO; 4 01:07 Follow up: Response: No adverse reaction jb4 Point of Care Testing: Blood Glucose: 04/03 22:10 Blood Glucose: High (>450 mg/dL); md 23:26 Blood Glucose: 388 mg/dL; mt 04/04 00:48 Blood Glucose: 264 mg/dL; jb4 Ranges: Critical Glucose Levels:Adult <50 mg/dl or >400 mg/dl <40 mg/dl or >180 mg/dl Disposition: 01:40 Co-signature as Attending Physician, Bernardino Alejandro MD I agree with the assessment and kdr plan of care. Disposition: 04/04/18 00:55 Discharged to Home. Impression: Low back pain. - Condition is Stable. - Discharge Instructions: Back Pain, Adult, Back Exercises, [id number]. - Prescriptions for Anaprox DS 550 mg Oral Tablet - take 1 tablet by ORAL route every 12 hours As needed; 20 tablet. Cyclobenzaprine 10 mg Oral Tablet - take 1 tablet by ORAL route every 8 hours As needed; 20 tablet. Tramadol 50 mg Oral Tablet - take 1 tablet by ORAL route every 8 hours as needed; 12 tablet. - Medication Reconciliation Form, Thank You Letter, Antibiotic Education, Prescription Opioid Use form. - Follow up: Private Physician; When: 2 - 3 days; Reason: Recheck today's complaints. - Problem is new. - Symptoms have improved. Signatures: Dispatcher [employer] EDPat Elias RN Bernardino Dowell MD MD kdr Page, Corey, PA PA cp Bryson, James, RN RN jb4 Josiah Gonsalez RN RN rv James Bryson RN jb4 Elena Antunez RN ea Corrections: (The following items were deleted from the chart) 01:11 00:55 04/04/2018 00:55 Discharged to Home. Impression: Low back pain. Condition is jb4 Stable. Forms are Medication Reconciliation Form, Thank You Letter, Antibiotic Education, Prescription Opioid Use. Follow up: Private Physician; When: 2 - 3 days; Reason: Recheck today's complaints. Problem is new. Symptoms have improved. cp
--- NOTE | 2018-04-04 00:56 | ER ---
Nurse's Notes [facility] Name: Gasper Fry Age: 58 yrs Sex: Male : 1960 Arrival Date: 04/03/2018 Time: 21:23 Bed 13 Private MD: Diagnosis: Low back pain Presentation: 04/03 21:28 Presenting complaint: Patient states: Low back and leg pain for 3 days. Patient aj ambulated to triage with slow steady gait. Patient appears sedated in triage and is falling asleep in between sentences but awakes with verbal stimulation. Transition of care: patient was not received from another setting of care. Onset of symptoms was March 31, 2018. Risk Assessment: Do you want to hurt yourself or someone else? Patient reports no desire to harm self or others. Initial Sepsis Screen: Does the patient meet any 2 criteria? No. Patient's initial sepsis screen is negative. Does the patient have a suspected source of infection? No. Patient's initial sepsis screen is negative. Care prior to arrival: None. 21:28 Method Of Arrival: Ambulatory 21:28 Acuity: DARREL 2 aj Triage Assessment: 21:31 General: Appears in no apparent distress. comfortable, Behavior is calm, drowsy. Pain: aj Complains of pain in low back area, right leg and left leg. Neuro: Level of Consciousness is obeys commands, lethargic, Oriented to person, place, time, situation, Appropriate for age. Respiratory: Airway is patent Respiratory effort is even, unlabored, Respiratory pattern is regular, symmetrical. Derm: Skin is intact, is healthy with good turgor, Skin is pink, warm \T\ dry. normal. Musculoskeletal: Range of motion: intact in all extremities, Reports pain in low back area, right leg and left leg. Historical: - Allergies: 21:31 Haldol (Anaphylaxis); aj 21:31 Narcan (Anaphylaxis); aj - Home Meds: 21:31 Adderall XR Oral [Active]; Cogentin Oral [Active]; Glucophage Oral [Active]; Klonopin aj Oral [Active]; Novolin 70/30 [place] Sub-Q [Active]; Risperdal Oral [Active]; Tramadol Oral [Active]; - PMHx: 21:31 ADD/ADHD; Anxiety; Bipolar disorder; Cellulitis; CVA; Diabetes - IDDM; Hypertension; aj neuropathy; Seizures; Chronic pain; - PSHx: 21:31 eye surgery; back surgery; toe amputation; Knee surgery; aj - Immunization history:: Adult Immunizations up to date. - Social history:: Smoking status: Patient/guardian denies using tobacco. - Ebola Screening: : Patient negative for fever greater than or equal to 101.5 degrees Fahrenheit, and additional compatible Ebola Virus Disease symptoms Patient denies exposure to infectious person Patient denies travel to an Ebola-affected area in the 21 days before illness onset No symptoms or risks identified at this time. Screenin:50 Abuse screen: Denies threats or abuse. Nutritional screening: No deficits noted. jb4 Tuberculosis screening: No symptoms or risk factors identified. Fall Risk None identified. Assessment: 21:50 General: Appears in no apparent distress. uncomfortable, Behavior is calm, cooperative, jb4 appropriate for age. Pain: Complains of pain in low back area, right leg and left leg Pain does not radiate. Pain currently is 10 out of 10 on a pain scale. Quality of pain is described as sharp. Neuro: Level of Consciousness is awake, alert, obeys commands, Oriented to person, place, time, situation. Cardiovascular: Patient's skin is warm and dry. Respiratory: Airway is patent Respiratory effort is even, unlabored, Respiratory pattern is regular, symmetrical. GI: No signs and/or symptoms were reported involving the gastrointestinal system. : No signs and/or symptoms were reported regarding the genitourinary system. EENT: No signs and/or symptoms were reported regarding the EENT system. Derm: Skin is dry, Skin is normal, Skin temperature is warm multiple scabbed areas noted to legs and arms. Musculoskeletal: Circulation, motion, and sensation intact. 22:47 Reassessment: Patient appears in no apparent distress at this time. Patient and/or jb4 family updated on plan of care and expected duration. Pain level reassessed. Patient is alert, oriented x 3, equal unlabored respirations, skin warm/dry/pink. 23:51 Reassessment: Patient appears in no apparent distress at this time. Patient and/or jb4 family updated on plan of care and expected duration. Pain level reassessed. Patient is alert, oriented x 3, equal unlabored respirations, skin warm/dry/pink. Patient states feeling better. 04/04 00:32 Reassessment: Patient appears in no apparent distress at this time. Patient and/or jb4 family updated on plan of care and expected duration. Pain level reassessed. Patient is alert, oriented x 3, equal unlabored respirations, skin warm/dry/pink. 01:08 Reassessment: Patient appears in no apparent distress at this time. Patient and/or jb4 family updated on plan of care and expected duration. Pain level reassessed. Patient is alert, oriented x 3, equal unlabored respirations, skin warm/dry/pink. Discussed D/c, F/u with patient, denies questions or concerns. Vital Signs: 04/03 21:31 BP 190 / 88; Pulse 89; Resp 19; Temp 97.6; Pulse Ox 100% on R/A; Weight 95.25 kg; aj Height 5 ft. 11 in. (180.34 cm); 21:39 BP 180 / 93; Pulse 80; Resp 18; Pulse Ox 99% on R/A; mt 22:21 BP 155 / 81; Pulse 77; Resp 18; Pulse Ox 99% on R/A; mt 23:16 BP 153 / 109; Pulse 79; Resp 18; Pulse Ox 100% on R/A; mt 23:51 BP 179 / 94; Pulse 72; Resp 18; Pulse Ox 98% on R/A; jb4 04/04 00:35 BP 154 / 70; Pulse 69; Resp 18; Pulse Ox 100% on R/A; jb4 01:08 BP 158 / 76; Pulse 72; Resp 18; Pulse Ox 98% on R/A; jb4 04/03 21:31 Body Mass Index 29.29 (95.25 kg, 180.34 cm) ED Course: 04/03 21:23 Patient arrived in ED. ag3 21:30 Triage completed. aj 21:31 Arm band placed on left wrist. Patient placed in an exam room. aj 21:41 Lance Montes PA is PHCP. cp 21:41 Bernardino Alejandro MD is Attending Physician. cp 21:49 Vick Purdy, MALU is Primary Nurse. 4 21:50 Patient has correct armband on for positive identification. Bed in low position. Call jb4 light in reach. Side rails up X 1. Pulse ox on. NIBP on. 22:04 CT Stone Protocol In Process Unspecified. EDMS 22:10 Inserted saline lock: 20 gauge in right antecubital area, using aseptic technique. mt Blood collected. 22:33 Notified Nurse Practitioner and/or Physician Stable Manager of a critical lab result(s), fc glucose of 549. 23:00 Inserted saline lock: 20 gauge in left antecubital area, using aseptic technique. jb4 04/04 01:08 No provider procedures requiring assistance completed. IV discontinued, intact, jb4 bleeding controlled. Administered Medications: 04/03 22:13 Drug: TORadol 30 mg Route: IVP; Site: right antecubital; jb4 04/04 00:29 Follow up: Response: No adverse reaction; Pain is decreased jb4 04/03 22:36 Drug: NS 0.9% 1000 ml Route: IV; Rate: 1 bolus; Site: right antecubital; jb4 04/04 00:30 Follow up: Response: No adverse reaction; IV Status: Completed infusion 4 04/03 22:37 Drug: Insulin Regular Human 10 units {Co-Signature: debbie (Vick Purdy RN).} Route: IVP; rv Site: right antecubital; 23:26 Follow up: Response: No adverse reaction; Blood sugar is lowered jb4 23:36 Drug: morphine 2 mg Route: IVP; Site: left antecubital; jb4 04/04 00:29 Follow up: Response: No adverse reaction; Pain is decreased jb4 00:20 Drug: Insulin Regular Human 10 units {Co-Signature: susy (Kristen Bradshaw RN).} Route: IVP; [facility] Site: right antecubital; 00:42 Follow up: Response: No adverse reaction; Blood sugar is lowered jb4 01:06 Drug: Flexeril 10 mg Route: PO; jb4 01:07 Follow up: Response: No adverse reaction jb4 01:06 Drug: Hydrocodone-Acetaminophen (7.5 mg-325 mg) 1 tabs Route: PO; jb4 01:07 Follow up: Response: No adverse reaction jb4 Point of Care Testing: Blood Glucose: 04/03 22:10 Blood Glucose: High (>450 mg/dL); mt 23:26 Blood Glucose: 388 mg/dL; mt 04/04 00:48 Blood Glucose: 264 mg/dL; 4 Ranges: Outcome: 00:55 Discharge ordered by MD. cp 01:08 Discharged to home ambulatory. jb4 01:08 Condition: stable 01:08 Discharge instructions given to patient, Instructed on discharge instructions, follow up and referral plans. medication usage, Demonstrated understanding of instructions, follow-up care, medications, Prescriptions given X 3. 01:11 Patient left the ED. jb4 Signatures: Dispatcher [employer] EDPat Elias RN Tali Tom RN Lance Brown PA PA cp Bryson, James, RN RN jb4 Stephanie Barcenas mt, Ronaldo, RN RN Xiomara Eason ag3 Vick Purdy RN jb4 Kristen Bradshaw RN, ea Corrections: (The following items were deleted from the chart) 04/03 21:32 21:28 Acuity: DARREL 4 aj bryan 23:51 23:50 Reassessment: Patient appears in no apparent distress at this time. Patient jb4 states feeling better. jb4 04/04 00:33 00:32 BP 163 / 77; Pulse 60bpm; Resp 18bpm; Pulse Ox 99% RA; jb4 jb4
[2018-04-04] MEDS ORDERED: HYDROCODONE/APAP 7.5/325 MG TAB ONE (01:00)
[2018-04-04] MEDS ORDERED: CYCLOBENZAPRINE 10 MG TAB ONE (01:00)
[2018-04-04 01:16] VITALS: TEMP 97.6
[2018-04-04 01:23] VITALS: BP 158/76; O2SAT 98
--- NOTE | 2018-04-04 08:28 | RAD REPORT ---
EXAM DESCRIPTION: CT - Stone Protocol - 04/04/2018 6:34 am CLINICAL HISTORY: Abdominal pain, back pain, leg pain A preliminary report was provided at the time of the study and reviewed prior to final report. COMPARISON: CT study October 2015 CT imaging February 2017 TECHNIQUE: Axial 5 mm thick images were obtained without oral or IV contrast. The [id number] span s the entirety of the system including uppermost abdomen and lung bases. All CT scans are performed using dose optimization technique as appropriate and may include automated exposure control or mA/KV adjustment according to patient size. FINDINGS: No hydronephrosis is present and no obstructing ureteral calculi. No suspicious renal mass es. Isodense masses and pyelonephritis are not excluded on a stone protocol CT scan. No urinary bladd er suspicious finding. Bladder is only partially filled. Prostate gland is not abnormally enlarged. N o pelvic floor mass, stranding or lymphadenopathy seen. Imaged portions of the liver, spleen and pancreas show no suspicious findings on non-contrast imaging . No gallbladder or biliary tree abnormality identified. No significant adrenal finding. Large amount of food is present distending the stomach. No gastric wall thickening or mass. No dilate d small bowel loops. There is a large amount of stool present filling the entirety of the colon. An a cute colon process is not seen. No hernia, mass or bulky lymphadenopathy noted. No free air, free fluid or inflammatory stranding. Disc and bony degenerative changes are present. Findings are prominent at L1-2 and L5-S1. Pain or dreick rostimulator device is present in the right lateral soft tissues. No acute or destructive bone findin g identifiable. Calcified granuloma present in the lower right lung field. Nodularity in the lateral lower left lung field not clearly different from prior imaging. IMPRESSION: Large stool volume filling the colon with no acute colon process seen. Overall no acute GI process identifiable. Stomach is distended by a large ingestion of food. No hydronephrosis or acute finding seen. Isodense masses and pyelonephritis are not excluded on stone protocol technique. Disc and bony degenerative changes in the lumbar spine are present but not clearly different from Feb.
== END 2018-04-04 01:11 | disposition home or self-care (01) ==
LOC: ER 21:22
DX: M54.5 Low back pain (principal); I10 Essential (primary) hypertension; E11.9 Type 2 diabetes mellitus without complications; F90.9 Attention-deficit hyperactivity disorder, unspecified type; F31.9 Bipolar disorder, unspecified; Z86.73 Personal history of transient ischemic attack (TIA), and cerebral infarction without residual deficits; Z88.8 Allergy status to other drugs, medicaments and biological substances
CPT/HCPCS: 36415; 74176; 76377; 80048; 80076; 83690; 85025; 99284; J7030; 81003; 81015; 82962

== ENCOUNTER 2018-05-11 17:12 | Observation (INO) | payer OTHER ==
--- NOTE | 2018-05-11 18:59 | RAD REPORT ---
EXAM DESCRIPTION: CT - Head Brain Wo Cont - 05/11/2018 6:38 pm CLINICAL HISTORY: DIZZINESS Drowsiness COMPARISON: HEAD BRAIN W O CONTRAST dated 10/29/2011; HEAD BRAIN W O CONTRAST dated 09/06/2011 TECHNIQUE: All CT scans are performed using dose optimization technique as appropriate and may inclu de automated exposure control or mA/KV adjustment according to patient size. FINDINGS: No intracranial hemorrhage, hydrocephalus or extra-axial fluid collection.No areas of brai n edema or evidence of midline shift. The paranasal sinuses and mastoids are clear. The calvarium is intact. IMPRESSION: No acute intracranial abnormality.
[2018-05-11 19:00] LABS: Barbiturates NEGATIVE (NEGATIVE); Benzodiazepines NEGATIVE (NEGATIVE); Cocaine NEGATIVE (NEGATIVE); METHAMPHETAM NEGATIVE (NEGATIVE); Methadone NEGATIVE (NEGATIVE); Opiates NEGATIVE (NEGATIVE); Phencyclidine NEGATIVE (NEGATIVE); THC Cannibis NEGATIVE (NEGATIVE)
[2018-05-11 19:07] LABS: Hematocrit 41.9 % (39.6-49.0); MCH 32.2 pg (27.0-35.0); MCV 93.7 fL (80-100); MPV 9.6 fL (7.6-11.3); RBC Red Blood Cell Count 4.47 M/uL (4.33-5.43)
[2018-05-11 19:16] LABS: Protime INR 0.91
--- NOTE | 2018-05-11 19:17 | EDPHYS ---
Physician Documentation [facility] Name: Gasper Fry Age: 58 yrs Sex: Male : 1960 Arrival Date: 05/11/2018 Time: 17:17 Bed 4 Private MD: ED Physician Lance Ponce HPI: 05/11 19:09 This 58 yrs old Male presents to ER via Ambulatory with complaints of jerome Dizziness, Leg Pain. 19:09 The patient presents with dizziness, generalized weakness. Onset: The symptoms/episode jerome began/occurred 1 week(s) ago. Historical: - Allergies: 17:24 Haldol (Anaphylaxis); ss 17:24 Narcan (Anaphylaxis); ss - Home Meds: 21:16 Adderall XR Oral [Active]; Cogentin Oral [Active]; Glucophage Oral [Active]; Klonopin lp1 Oral [Active]; Novolin 70/30 [place] Sub-Q [Active]; Risperdal Oral [Active]; Tramadol Oral [Active]; - PMHx: 17:24 ADD/ADHD; Anxiety; Bipolar disorder; Cellulitis; Chronic pain; CVA; Diabetes - IDDM; ss Hypertension; neuropathy; Seizures; - PSHx: 17:24 eye surgery; back surgery; toe amputation; Knee surgery; ss - Immunization history:: Adult Immunizations unknown. - Social history:: Smoking status: Patient uses tobacco products, denies chronic smoking, but will smoke occasionally. - Ebola Screening: : Patient denies exposure to infectious person Patient denies travel to an Ebola-affected area in the 21 days before illness onset. ROS: 19:10 Constitutional: Negative for fever, chills, and weight loss, Eyes: Negative for injury, jerome pain, redness, and discharge, ENT: Negative for injury, pain, and discharge, Neck: Negative for injury, pain, and swelling, Respiratory: Negative for shortness of breath, cough, wheezing, and pleuritic chest pain, Abdomen/GI: Negative for abdominal pain, nausea, vomiting, diarrhea, and constipation, Back: Negative for injury and pain, : Negative for injury, bleeding, discharge, and swelling, Skin: Negative for injury, rash, and discoloration, Psych: Negative for depression, anxiety, suicide ideation, homicidal ideation, and hallucinations, Allergy/Immunology: Negative for hives, rash, and allergies, Endocrine: Negative for neck swelling, polydipsia, polyuria, polyphagia, and marked weight changes, Hematologic/Lymphatic: Negative for swollen nodes, abnormal bleeding, and unusual bruising. 19:10 Cardiovascular: Positive for chest pain. 19:10 MS/extremity: Positive for pain. 19:10 Neuro: Positive for dizziness. Exam: 19:10 Constitutional: This is a well developed, well nourished patient who is awake, alert, jerome and in no acute distress. Head/Face: Normocephalic, atraumatic. Eyes: Pupils equal round and reactive to light, extra-ocular motions intact. Lids and lashes normal. Conjunctiva and sclera are non-icteric and not injected. Cornea within normal limits. Periorbital areas with no swelling, redness, or edema. ENT: Nares patent. No nasal discharge, no septal abnormalities noted. Tympanic membranes are normal and external auditory canals are clear. Oropharynx with no redness, swelling, or masses, exudates, or evidence of obstruction, uvula midline. Mucous membranes moist. Neck: Trachea midline, no thyromegaly or masses palpated, and no cervical lymphadenopathy. Supple, full range of motion without nuchal rigidity, or vertebral point tenderness. No Meningismus. Chest/axilla: Normal chest wall appearance and motion. Nontender with no deformity. No lesions are appreciated. Cardiovascular: Regular rate and rhythm with a normal S1 and S2. No gallops, murmurs, or rubs. Normal PMI, no JVD. No pulse deficits. Respiratory: Lungs have equal breath sounds bilaterally, clear to auscultation and percussion. No rales, rhonchi or wheezes noted. No increased work of breathing, no retractions or nasal flaring. Abdomen/GI: Soft, non-tender, with normal bowel sounds. No distension or tympany. No guarding or rebound. No evidence of tenderness throughout. Back: No spinal tenderness. No costovertebral tenderness. Full range of motion. Male : Normal genitalia with no discharge or lesions. Skin: Warm, dry with normal turgor. Normal color with no rashes, no lesions, and no evidence of cellulitis. MS/ Extremity: Pulses equal, no cyanosis. Neurovascular intact. Full, normal range of motion. Neuro: Awake and alert, GCS 15, oriented to person, place, time, and situation. Cranial nerves II-XII grossly intact. Motor strength 5/5 in all extremities. Sensory grossly intact. Cerebellar exam normal. Normal gait. Psych: Awake, alert, with orientation to person, place and time. Behavior, mood, and affect are within normal limits. 19:10 Musculoskeletal/extremity: DVT Exam: No signs of deep vein thrombosis. no pain, no swelling, no tenderness, negative Homans' sign noted on exam, no appreciated bluish discoloration, no erythema, no increased warmth. 19:10 Neuro: Orientation: is normal, appropriate for stated age, no acute changes, Mentation: is normal, appropriate for stated age, no acute changes, Memory: is normal, appropriate for stated age, no acute changes, Cranial nerves: grossly normal, is grossly normal based on the patient's age, no acute changes, Cerebellar function: normal finger to nose testing, Sensation: no obvious gross deficits, appropriate no acute changes, Gait: not tested. seizure activity, is not displayed by the patient. Vital Signs: 17:24 BP 178 / 115; Pulse 79; Resp 16; Temp 97.9(TE); Pulse Ox 100% on R/A; Weight 95.71 kg; ss Height 6 ft. 0 in. (182.88 cm); Pain 9/10; 18:38 BP 161 / 83; Pulse 83; Resp 18 S; Pulse Ox 100% on R/A; Pain 9/10; jl7 19:00 BP 157 / 89; Pulse 83; Resp 17; Temp 97.9; Pulse Ox 99% on R/A; Pain 9/10; rr5 20:00 BP 155 / 70; Pulse 80; Resp 17; Pulse Ox 99% on R/A; Pain 9/10; rr5 21:00 BP 115 / 67; Pulse 77; Resp 14; Pulse Ox 98% on R/A; lp1 21:45 BP 118 / 85; Pulse 75; Resp 17; Temp 97.8; Pulse Ox 98% ; rr5 17:24 Body Mass Index 28.62 (95.71 kg, 182.88 cm) ss 20:00 morphine given for reassessment rr5 MDM: 18:19 Patient medically screened. [place] 19:12 Data reviewed: vital signs, nurses notes, lab test result(s), EKG, radiologic studies, [place] CT scan, plain films. 05/11 18:19 Order name: Basic Metabolic Panel; Complete Time: 19:36 [place] 05/11 18:19 Order name: CBC with Diff [place] 05/11 18:19 Order name: LFT's; Complete Time: 19:36 [place] 05/11 18:19 Order name: Magnesium; Complete Time: 19:36 [place] 05/11 18:19 Order name: NT PRO-BNP; Complete Time: 19:36 [place] 05/11 18:19 Order name: PT-INR; Complete Time: 19:30 [place] 05/11 18:19 Order name: Troponin (emerg Dept Use Only); Complete Time: 19:36 [place] 05/11 18:19 Order name: Lipase; Complete Time: 19:36 [place] 05/11 18:19 Order name: Acetaminophen; Complete Time: 19:36 [place] 05/11 18:19 Order name: ETOH Level [place] 05/11 18:19 Order name: Ptt, Activated; Complete Time: 19:30 [place] 05/11 18:19 Order name: Salicylate; Complete Time: 19:36 [place] 05/11 18:19 Order name: Urine Drug Screen; Complete Time: 19:08 [place] 05/11 18:19 Order name: AMMONIA; Complete Time: 19:30 [place] 05/11 18:19 Order name: XRAY Chest (1 view); Complete Time: 19:30 [place] 05/11 18:19 Order name: CT Head Brain wo Cont; Complete Time: 19:08 [place] 05/11 18:19 Order name: Urine Culture [place] 05/11 18:52 Order name: Urine Dipstick--Ancillary (enter results) 05/11 19:18 Order name: Manual Differential [facility] 05/11 19:31 Order name: Echo with Doppler [facility] 05/11 19:31 Order name: Lipid Profile [facility] 05/11 19:31 Order name: Lipid Profile [facility] 05/11 19:31 Order name: Troponin I [facility] 05/11 19:31 Order name: Troponin I [facility] 05/11 19:31 Order name: Troponin I [facility] 05/11 17:31 Order name: EKG; Complete Time: 17:34 05/11 17:31 Order name: EKG - Nurse/Tech; Complete Time: 17:35 05/11 18:19 Order name: Cardiac monitoring; Complete Time: 19:04 [place] 05/11 18:19 Order name: IV Saline Lock; Complete Time: 19:04 [place] 05/11 18:19 Order name: Labs collected and sent; Complete Time: 19:04 [place] 05/11 18:19 Order name: O2 Per Protocol; Complete Time: 19:04 [place] 05/11 18:19 Order name: O2 Sat Monitoring; Complete Time: 19:04 [place] 05/11 18:19 Order name: Urine Dipstick-Ancillary (obtain specimen); Complete Time: 18:42 [place] 05/11 19:31 Order name: Heart Healthy [facility] 05/11 19:31 Order name: EKG Electrocardiogram [facility] 05/11 19:31 Order name: EKG Electrocardiogram [facility] Administered Medications: 19:25 Drug: Pepcid 20 mg Route: IVP; Site: right antecubital; rr5 21:30 Follow up: Response: No adverse reaction rr5 19:30 Drug: Lovenox 90 mg Route: Sub-Q; Site: right lower abdomen; rr5 21:30 Follow up: Response: No adverse reaction rr5 19:37 Drug: NS 0.9% 1000 ml Route: IV; Rate: 75 ml/hr; Site: right antecubital; rr5 21:32 Follow up: Response: No adverse reaction; IV Status: Infusion continued upon transfer rr5 19:37 Drug: Lopressor (metoprolol TARTRATE) 50 mg Route: PO; rr5 21:31 Follow up: Response: No adverse reaction rr5 19:37 Drug: Aspirin 162 mg Route: PO; rr5 21:31 Follow up: Response: No adverse reaction rr5 20:00 Drug: Zofran 4 mg Route: IVP; Site: right antecubital; rr5 20:30 Follow up: Response: No adverse reaction lp1 20:02 Drug: Insulin Regular Human 10 units {Co-Signature: susy (Kristen Bradshaw RN).} {Note: cbg rr5 380 mg/dl IV.} Route: IVP; Site: Other; 21:25 Follow up: Response: Blood sugar is lowered lp1 20:05 Drug: morphine 4 mg Route: IVP; Site: right antecubital; rr5 20:30 Follow up: Response: No adverse reaction; Pain is decreased lp1 20:33 Drug: LanTUS 40 units {Note: cbg 380 mg/dl.} Route: Sub-Q; Site: left lower abdomen; lp1 21:25 Follow up: Response: Blood sugar is lowered lp1 Point of Care Testing: Blood Glucose: 21:25 Blood Glucose: 274 mg/dL; lp1 Ranges: Critical Glucose Levels:Adult <50 mg/dl or >400 mg/dl <40 mg/dl or >180 mg/dl Disposition: 05/11/18 19:16 Hospitalization ordered by Justin Valente for Observation. Preliminary diagnosis are Chest pain, unspecified, Dizziness and giddiness, Type 1 diabetes mellitus - uncontrolled. - Bed requested for Telemetry/MedSurg (observation). - Status is Observation. rr5 - Condition is Fair. - Problem is new. - Symptoms have improved. UTI on Admission? No Signatures: Dispatcher [employer] EDMS Lance Ponce MD MD cha Smirch, Shelby RN RN ss Barbara Conway RN RN lp1 Laura Hodge RN RN cg Inder Paredes RN RN rr5 Kristen Bradshaw RN ea Corrections: (The following items were deleted from the chart) 19:38 19:16 Hospitalization Ordered by Justin Valente MD for Observation. Preliminary jerome diagnosis is Chest pain, unspecified; Dizziness and giddiness; Type 1 diabetes mellitus. Bed requested for Telemetry/MedSurg (observation). Status is Observation. Condition is Fair. Problem is new. Symptoms have improved. UTI on Admission? No. jerome 19:46 19:38 05/11/2018 19:16 Hospitalization Ordered by Justin Valente MD for Observation. cg Preliminary diagnosis is Chest pain, unspecified; Dizziness and giddiness; Type 1 diabetes mellitus - uncontrolled. Bed requested for Telemetry/MedSurg (observation). Status is Observation. Condition is Fair. Problem is new. Symptoms have improved. UTI on Admission? No. jerome 21:58 19:46 05/11/2018 19:16 Hospitalization Ordered by Justin Valente MD for Observation. rr5 Preliminary diagnosis is Chest pain, unspecified; Dizziness and giddiness; Type 1 diabetes mellitus - uncontrolled. Bed requested for Telemetry/MedSurg (observation). Status is Observation. Condition is Fair. Problem is new. Symptoms have improved. UTI on Admission? No. cg
--- NOTE | 2018-05-11 19:17 | ER ---
Nurse's Notes [facility] Name: Gasper Fry Age: 58 yrs Sex: Male : 1960 Arrival Date: 05/11/2018 Time: 17:17 Bed 4 Private MD: Diagnosis: Chest pain, unspecified;Dizziness and giddiness;Type 1 diabetes mellitus-uncontrolled Presentation: 05/11 17:22 Presenting complaint: Patient states: R leg pain, chest pain and dizziness that began 2 ss months ago. Transition of care: patient was not received from another setting of care. Onset of symptoms was March 2018. Risk Assessment: Do you want to hurt yourself or someone else? Patient reports no desire to harm self or others. Initial Sepsis Screen: Does the patient meet any 2 criteria? No. Patient's initial sepsis screen is negative. Does the patient have a suspected source of infection? No. Patient's initial sepsis screen is negative. Care prior to arrival: None. 17:22 Method Of Arrival: Ambulatory ss 17:22 Acuity: DARREL 3 ss Historical: - Allergies: 17:24 Haldol (Anaphylaxis); ss 17:24 Narcan (Anaphylaxis); ss - Home Meds: 21:16 Adderall XR Oral [Active]; Cogentin Oral [Active]; Glucophage Oral [Active]; Klonopin lp1 Oral [Active]; Novolin 70/30 [place] Sub-Q [Active]; Risperdal Oral [Active]; Tramadol Oral [Active]; - PMHx: 17:24 ADD/ADHD; Anxiety; Bipolar disorder; Cellulitis; Chronic pain; CVA; Diabetes - IDDM; ss Hypertension; neuropathy; Seizures; - PSHx: 17:24 eye surgery; back surgery; toe amputation; Knee surgery; ss - Immunization history:: Adult Immunizations unknown. - Social history:: Smoking status: Patient uses tobacco products, denies chronic smoking, but will smoke occasionally. - Ebola Screening: : Patient denies exposure to infectious person Patient denies travel to an Ebola-affected area in the 21 days before illness onset. Screenin:38 Abuse screen: Denies threats or abuse. Denies injuries from another. Nutritional jl7 screening: No deficits noted. Tuberculosis screening: No symptoms or risk factors identified. Fall Risk IV access (20 points). Assessment: 17:37 Reassessment: Pt is having EKG obtained now and is stating that he just wants to go ss home and lay down. Pt verbalizes understanding the importance of staying and having full evaluation as recommended by . 18:00 General: Appears in no apparent distress. uncomfortable, Behavior is cooperative, jl7 anxious. Pain: Complains of pain in "All over, DIAZ, substernal chest pain." Pain currently is 9 out of 10 on a pain scale. Neuro: Level of Consciousness is awake, alert, obeys commands, Oriented to person, place, time, situation. Cardiovascular: Heart tones S1 S2 present Patient's skin is warm and dry. Respiratory: Airway is patent Respiratory effort is even, unlabored, Respiratory pattern is regular, symmetrical, Breath sounds are clear bilaterally. GI: No signs and/or symptoms were reported involving the gastrointestinal system. : No signs and/or symptoms were reported regarding the genitourinary system. EENT: No signs and/or symptoms were reported regarding the EENT system. Derm: Skin is pink, warm \\T\\ dry. Musculoskeletal: No signs and/or symptoms reported regarding the musculoskeletal system. 19:00 General: Appears in no apparent distress. uncomfortable, Behavior is calm, cooperative, rr5 appropriate for age. 19:00 Pain: Complains of pain in right leg and left leg Pain currently is 9 out of 10 on a rr5 pain scale. Quality of pain is described as aching, Pain began gradually, Is intermittent. Neuro: Level of Consciousness is awake, alert, obeys commands, Oriented to person, place, time. Cardiovascular: Capillary refill < 3 seconds Patient's skin is warm and dry. Respiratory: Airway is patent Respiratory effort is even, unlabored, Respiratory pattern is regular, symmetrical. GI: Abdomen is round. : No signs and/or symptoms were reported regarding the genitourinary system. EENT: No signs and/or symptoms were reported regarding the EENT system. Derm: Skin is pink, warm \\T\\ dry. Musculoskeletal: No signs and/or symptoms reported regarding the musculoskeletal system. 20:30 Reassessment: Patient appears in no apparent distress at this time. no facial grimace rr5 Patient states feeling better. Patient states symptoms have improved. 21:18 Reassessment: Attempted to call report, nurse will call back. lp1 Vital Signs: 17:24 BP 178 / 115; Pulse 79; Resp 16; Temp 97.9(TE); Pulse Ox 100% on R/A; Weight 95.71 kg; ss Height 6 ft. 0 in. (182.88 cm); Pain 9/10; 18:38 BP 161 / 83; Pulse 83; Resp 18 S; Pulse Ox 100% on R/A; Pain 9/10; jl7 19:00 BP 157 / 89; Pulse 83; Resp 17; Temp 97.9; Pulse Ox 99% on R/A; Pain 9/10; rr5 20:00 BP 155 / 70; Pulse 80; Resp 17; Pulse Ox 99% on R/A; Pain 9/10; rr5 21:00 BP 115 / 67; Pulse 77; Resp 14; Pulse Ox 98% on R/A; lp1 21:45 BP 118 / 85; Pulse 75; Resp 17; Temp 97.8; Pulse Ox 98% ; rr5 17:24 Body Mass Index 28.62 (95.71 kg, 182.88 cm) ss 20:00 morphine given for reassessment rr5 ED Course: 17:17 Patient arrived in ED. mr 17:23 Triage completed. ss 17:24 Arm band placed on left wrist. ss 18:01 José Antonio Todd, MALU is Primary Nurse. jl7 18:15 Inserted saline lock: 20 gauge in right antecubital area, using aseptic technique. jl7 18:18 Lance Ponce MD is Attending Physician. jerome 18:20 Missed attempt(s): 22 gauge in left forearm. Bleeding controlled, band aid applied, jl7 catheter tip intact. 18:25 Missed attempt(s): 22 gauge in left forearm. Bleeding controlled, band aid applied, jl7 catheter tip intact. 18:30 Missed attempt(s): 22 gauge in left antecubital area. Bleeding controlled, band aid jl7 applied, catheter tip intact. 18:38 CT completed. Patient tolerated procedure well. Patient moved to CT. Patient moved back vm2 from CT. 18:38 Patient has correct armband on for positive identification. Placed in gown. Bed in low jl7 position. Call light in reach. Side rails up X2. case monitor on. Pulse ox on. NIBP on. Warm blanket given. 18:42 CT Head Brain wo Cont In Process Unspecified. EDMS 19:00 XRAY Chest (1 view) In Process Unspecified. EDMS 19:14 Justin Valente MD is Hospitalizing Provider. jerome 21:17 No provider procedures requiring assistance completed. Patient admitted, IV remains in lp1 place. Administered Medications: 19:25 Drug: Pepcid 20 mg Route: IVP; Site: right antecubital; rr5 21:30 Follow up: Response: No adverse reaction rr5 19:30 Drug: Lovenox 90 mg Route: Sub-Q; Site: right lower abdomen; rr5 21:30 Follow up: Response: No adverse reaction rr5 19:37 Drug: NS 0.9% 1000 ml Route: IV; Rate: 75 ml/hr; Site: right antecubital; rr5 21:32 Follow up: Response: No adverse reaction; IV Status: Infusion continued upon transfer rr5 19:37 Drug: Lopressor (metoprolol TARTRATE) 50 mg Route: PO; rr5 21:31 Follow up: Response: No adverse reaction rr5 19:37 Drug: Aspirin 162 mg Route: PO; rr5 21:31 Follow up: Response: No adverse reaction rr5 20:00 Drug: Zofran 4 mg Route: IVP; Site: right antecubital; rr5 20:30 Follow up: Response: No adverse reaction lp1 20:02 Drug: Insulin Regular Human 10 units {Co-Signature: susy (Kristen Bradshaw RN).} {Note: cbg rr5 380 mg/dl IV.} Route: IVP; Site: Other; 21:25 Follow up: Response: Blood sugar is lowered lp1 20:05 Drug: morphine 4 mg Route: IVP; Site: right antecubital; rr5 20:30 Follow up: Response: No adverse reaction; Pain is decreased lp1 20:33 Drug: LanTUS 40 units {Note: cbg 380 mg/dl.} Route: Sub-Q; Site: left lower abdomen; lp1 21:25 Follow up: Response: Blood sugar is lowered lp1 Point of Care Testing: Blood Glucose: 21:25 Blood Glucose: 274 mg/dL; lp1 Ranges: Outcome: 19:16 Decision to Hospitalize by Provider. jerome 21:17 Condition: stable lp1 21:17 Instructed on the need for admit. 21:44 Admitted to Tele accompanied by tech, via wheelchair, with chart, Report called to rr5 ifeoma 21:58 Patient left the ED. rr5 Signatures: Dispatcher [employer] EDLance Cummins MD MD cha Rivera, Sienna mr Maggi Edmond, RN RN ss Barbara Conway RN RN lp1 José Antonio Todd RN RN jl7 Katelynn Oviedo Inder Martinez RN RN rr5 Kristen Bradshaw RN, ea
--- NOTE | 2018-05-11 19:23 | RAD REPORT ---
EXAM DESCRIPTION: RAD - Chest Single View - 05/11/2018 6:59 pm CLINICAL HISTORY: COUGH Chest pain. COMPARISON: Chest Single View dated 12/31/2017; Chest Single View dated 02/19/2017; Chest Single View dated 05/11/2016; Chest Single View dated 10/10/2015 FINDINGS: Portable technique limits examination quality. The lungs are grossly clear. The heart is normal in size. No displaced fractures. IMPRESSION: No acute intrathoracic process suspected.
[2018-05-11] MEDS ORDERED: ALPRAZOLAM 0.25 MG TABLET PO PRN (19:25)
[2018-05-11] MEDS ORDERED: ACETAMINOPHEN 500 MG TAB PO PRN (19:25)
[2018-05-11 19:28] LABS: ALT/SGPT 26 U/L (12-78); AST/SGOT 12 U/L (15-37); Albumin 3.8 g/dL (3.4-5.0); Alkaline Phosphatase 146 U/L (45-117); BUN Blood Urea Nitrogen 18 mg/dL (7-18); Bicarbonate 27 mmol/L (21-32); Bilirubin Direct < 0.1 mg/dL (0-0.2); Bilirubin Total 0.4 mg/dL (0.2-1.0); Glucose Level 380 mg/dL (74-106); Potassium 4.3 mmol/L (3.5-5.1); Protein, Total 7.5 g/dL (6.4-8.2); Sodium Level 137 mmol/L (136-145)
[2018-05-11 19:29] LABS: Lipase 179 U/L (73-393); NT PRO-BNP 285 pg/mL (<125); Troponin (Emerg Dept Use Only) < 0.02 ng/mL (0.0-0.045)
[2018-05-11] MEDS ORDERED: ASPIRIN 81 MG CHEWABLE TABLET ONE (19:30)
[2018-05-11] MEDS ORDERED: METOPROLOL TAR 50 MG TAB ONE (19:30)
[2018-05-11] MEDS ORDERED: NA CHLORIDE 0.9% 1,000 ML ONE (19:31)
[2018-05-11] MEDS ORDERED: FAMOTIDINE 20 MG/2 ML VIAL IV ONE (19:31)
[2018-05-11] MEDS ORDERED: ENOXAPARIN 100 MG/ML SYR SQ ONE (19:31)
[2018-05-11 19:51] LABS: Blood Morphology Comment NOT SEEN (NOT SEEN); Platelet Estimate ADEQ
[2018-05-11] MEDS ORDERED: INSULIN -REGULAR HUMAN 50 UNIT/0.5 ML ML ONE (19:56)
[2018-05-11] MEDS ORDERED: MORPHINE 4 MG/ML SYR ONE (19:57)
[2018-05-11] MEDS ORDERED: ONDANSETRON 4 MG/2 ML VIAL ONE (19:57)
[2018-05-11] MEDS ORDERED: INSULIN GLARGINE 100 UNITS/ML SQ ONE (20:18)
[2018-05-11] MEDS: METOPROLOL TAR 50 MG TAB PO SCH (21:00)
[2018-05-11 22:06] LABS: Urine Blood NEGATIVE (NEG); Urine Glucose 3+ (NEG); Urine Protein 2+ (NEG); Urine Specific Gravity 1.015 (1.005-1.030)
[2018-05-11] MEDS ORDERED: ONDANSETRON 4 MG/2 ML VIAL IV PRN (23:36)
[2018-05-12] MEDS: MORPHINE 4 MG/ML SYR IV PRN ×3 (00:45→09:28)
[2018-05-12 02:50] VITALS: O2SAT 100
[2018-05-12 05:43] LABS: HDL Cholesterol 40 mg/dL (40-60); LDL Cholesterol, Calculated ND (<130)
[2018-05-12 05:56] LABS: LDL, Direct 135 mg/dL (100-129)
[2018-05-12 06:48] VITALS: BMI 27.9
--- NOTE | 2018-05-12 07:06 | EKG ---
Test Date: 2018-05-11 Test Time: 17:35:45 Child Protective Services Social Worker: SHANE MEASUREMENT RESULTS: Intervals: Rate: 84 NM: 160 QRSD: 98 QT: 382 QTc: 451 [place]: P: 49 NM: 160 QRS: -42 T: 45 INTERPRETIVE STATEMENTS: Normal sinus rhythm Left axis deviation Anterior infarct, age undetermined Abnormal ECG Compared to ECG 12/31/2017 00:46:22 Myocardial infarct finding now present Electronically Signed On 05-12-18 07:05:26 [employer] by Tyler Gomez
[2018-05-12] MEDS ORDERED: INFLUENZA VACCINE (for 3y+) 0.5 ML DOSE IMVAC ONE (08:00)
[2018-05-12] MEDS: METOPROLOL TAR 50 MG TAB PO SCH (08:03)
[2018-05-12 08:22] VITALS: TEMP 97.4
[2018-05-12] MEDS ORDERED: ASPIRIN 325 MG TAB PO SCH (09:00)
[2018-05-12] MEDS ORDERED: clonazePAM 1 MG TAB PO SCH (09:00)
[2018-05-12] MEDS ORDERED: INSULIN 70/30 100 UNITS/ML SQ SCH (09:00)
[2018-05-12] MEDS ORDERED: BENZTROPINE 1 MG TAB PO SCH (09:00)
[2018-05-12] MEDS ORDERED: ENOXAPARIN 40 MG/0.4 ML SQ SCH (09:00)
[2018-05-12 09:37] VITALS: BP 140/70
--- NOTE | 2018-05-12 13:14 | P.HP ---
Certification for Inpatient Patient admitted to: Observation With expected LOS: <2 Midnights Patient will require the following post-hospital care: None Practitioner: I am a practitioner with admitting privileges, knowledge of patient current condition, hospital course, and medical plan of care. Services: Services provided to patient in accordance with Admission requirements found in Title 42 Section 412.3 of the Code of Federal Regulations Patient History Date of Service: 05/11/18 Reason for admission: chest pain rule out acute coronary syndrome History of Present Illness: Patient is a 58-year-old who came to the hospital for evaluation of his chest pain. Patient has a history of bipolar disorder and schizophrenia. His symptoms have gradually worsened. He came into the hospital for further evaluation. He has an early taking care of himself because his has breast cancer. He was a frequent visitor to the emergency room but we have not seen him as much. His chest pain was mainly in the sternal region with no radiation. Will be admitted to the hospital for further evaluation. He also has a wound on the foot that will need to be evaluated. Allergies haloperidol [From Haldol] Allergy (Verified 05/12/18 02:07) Anaphylaxis naloxone [From Narcan] Allergy (Verified 05/12/18 02:07) Unknown Home Medications: Benztropine Mesylate [Cogentin] 0.5 mg PO BID 02/19/17 Insulin 70/30 NPH/Reg Human [Novolin 70/30*] 15 unit SQ BID 02/19/17 Risperidone 4 mg PO BEDTIME 02/19/17 clonazePAM [Klonopin*] 1 mg PO TID 02/19/17 Divalproex Sodium [Depakote ER] 500 mg PO BEDTIME 05/12/18 Duloxetine HCl [Cymbalta] 60 mg PO DAILY 05/12/18 Losartan Potassium [Cozaar] 100 mg PO DAILY 05/12/18 - Past Medical/Surgical History Has patient received pneumonia vaccine in the past: No Diabetic: Yes -: Type 1 DM -: HTN -: Bipolar -: Schizophrenia -: high cholesterol -: seizures -: Diabetes mellitus type 2 -: History of seizure -: History of osteomyelitis -: History of amputation to the left great toe -: History of blood clots -: seizures -: Neck and back surgery -: Right eye removal -: Right knee surgery -: Bilateral wrist surgery due to suicide attempt -: Left great toe amputation Psychosocial/ Personal History: Patient is . He has 2 children. He lives at home. - Family History Brother Medical History: Hypertension Sister Medical History: Diabetes Father Medical History: Heart disease Notes: heart attack Mother Medical History: Diabetes - Social History Smoking Status: Current every day smoker Alcohol use: No CD- Drugs: No Caffeine use: Yes Place of Residence: Home Review of Systems 10-point ROS is otherwise unremarkable Physical Examination - Vital Signs Temperature: 97.4 F Blood Pressure: 140/70 Pulse: 73 Respirations: 18 Pulse Ox (%): 96 - Physical Exam General: Alert, In no apparent distress, Oriented x3 HEENT: Atraumatic, PERRLA, Mucous membr. moist/pink, EOMI, Sclerae nonicteric Neck: Supple, 2+ carotid pulse no bruit, No LAD, Without JVD or thyroid abnormality Respiratory: Clear to auscultation bilaterally, Normal air movement Cardiovascular: Regular rate/rhythm, Normal S1 S2 Gastrointestinal: Normal bowel sounds, Soft and benign, Non-distended, No tenderness Musculoskeletal: No tenderness Integumentary: No rashes Neurological: Normal gait, Normal speech, Normal strength at 5/5 x4 extr, Normal tone, Sensation intact, Cranial nerves 3-12 intact, Normal affect Lymphatics: No axilla or inguinal lymphadenopathy - Studies Laboratory Data (last 24 hrs) 05/11/18 18:50: PT 10.7, INR 0.91, APTT 27.5 05/11/18 18:50: WBC 4.3, Hgb 14.4, Hct 41.9, Plt Count 188 05/11/18 18:50: Sodium 137, Potassium 4.3, BUN 18, Creatinine 1.20, Glucose 380 H, Magnesium 2.0 D, Total Bilirubin 0.4, AST 12 L, ALT 26, Alkaline Phosphatase 146 H, Lipase 179 Assessment & Plan - Problems (Diagnosis) (1) Chest pain, rule out acute myocardial infarction Status: Acute (2) DM2 (diabetes mellitus, type 2) Status: Acute (3) Schizophrenia Status: Acute (4) Bipolar 1 disorder Status: Acute - Plan 1. Serial troponins and EKG 2. Cardiology consultation 3. Echocardiogram and inpatient stress test(pending cardiology evaluation) 4. Anti-platelet therapy, anti coagulation, beta-yanely, statin, and O2 as needed 5. IV morphine for pain 6. Wound healing consult - Advance Directives Does patient have a Living Will: Yes Does patient have a Durable POA for Healthcare: No - Code Status/Comfort Care Code Status Assessed: Yes Code Status: Full Code Critical Care: No Time Spent Managing PTS Care (In Minutes): 40
--- NOTE | 2018-05-12 17:48 | P.SSS ---
Patient History Date of Service: 05/12/18 Reason for admission: chest pain rule out acute coronary syndrome History of Present Illness: Patient is a 58-year-old who came to the hospital for evaluation of his chest pain. Patient has a history of bipolar disorder and schizophrenia. His symptoms have gradually worsened. He came into the hospital for further evaluation. He has an early taking care of himself because his has breast cancer. He was a frequent visitor to the emergency room but we have not seen him as much. His chest pain was mainly in the sternal region with no radiation. Will be admitted to the hospital for further evaluation. Allergies haloperidol [From Haldol] Allergy (Verified 05/12/18 02:07) Anaphylaxis naloxone [From Narcan] Allergy (Verified 05/12/18 02:07) Unknown Home Medications: Benztropine Mesylate [Cogentin] 0.5 mg PO BID 02/19/17 Insulin 70/30 NPH/Reg Human [Novolin 70/30*] 15 unit SQ BID 02/19/17 Risperidone 4 mg PO BEDTIME 02/19/17 clonazePAM [Klonopin*] 1 mg PO TID 02/19/17 Divalproex Sodium [Depakote ER] 500 mg PO BEDTIME 05/12/18 Duloxetine HCl [Cymbalta] 60 mg PO DAILY 05/12/18 Losartan Potassium [Cozaar] 100 mg PO DAILY 05/12/18 - Past Medical/Surgical History Has patient received pneumonia vaccine in the past: No Diabetic: Yes -: Type 1 DM -: HTN -: Bipolar -: Schizophrenia -: high cholesterol -: seizures -: Diabetes mellitus type 2 -: History of seizure -: History of osteomyelitis -: History of amputation to the left great toe -: History of blood clots -: seizures -: Neck and back surgery -: Right eye removal -: Right knee surgery -: Bilateral wrist surgery due to suicide attempt -: Left great toe amputation Psychosocial/ Personal History: Patient is . He has 2 children. He lives at home. - Family History Brother -: Hypertension Sister -: Diabetes Father -: Heart disease Notes: heart attack Mother -: Diabetes - Social History Smoking Status: Current every day smoker Alcohol use: No CD- Drugs: No Caffeine use: Yes Place of Residence: Home Review of Systems 10-point ROS is otherwise unremarkable Physical Examination - Vital Signs Temperature: 97.4 F Blood Pressure: 140/70 Pulse: 73 Respirations: 18 Pulse Ox (%): 96 - Physical Exam General: Alert, In no apparent distress HEENT: Atraumatic, PERRLA, Mucous membr. moist/pink, EOMI, Sclerae nonicteric Neck: Supple, 2+ carotid pulse no bruit, No LAD, Without JVD or thyroid abnormality Respiratory: Clear to auscultation bilaterally, Normal air movement Cardiovascular: Regular rate/rhythm, Normal S1 S2 Gastrointestinal: Normal bowel sounds, No tenderness Musculoskeletal: No tenderness Integumentary: No rashes Neurological: Normal gait, Normal speech, Normal strength at 5/5 x4 extr, Normal tone, Normal affect Lymphatics: No axilla or inguinal lymphadenopathy - Studies Laboratory Data (last 24 hrs) 05/11/18 18:50: PT 10.7, INR 0.91, APTT 27.5 05/11/18 18:50: WBC 4.3, Hgb 14.4, Hct 41.9, Plt Count 188 05/11/18 18:50: Sodium 137, Potassium 4.3, BUN 18, Creatinine 1.20, Glucose 380 H, Magnesium 2.0 D, Total Bilirubin 0.4, AST 12 L, ALT 26, Alkaline Phosphatase 146 H, Lipase 179 - Diagnosis (Problem(s)) (1) Chest pain, rule out acute myocardial infarction Status: Acute (2) Amphetamine abuse Onset Date: 02/19/17 Status: Acute (3) Bipolar 1 disorder Onset Date: 02/19/17 Status: Acute (4) DM2 (diabetes mellitus, type 2) Status: Acute (5) Depression Status: Acute (6) Schizophrenia Status: Acute (7) GERD (gastroesophageal reflux disease) Status: Chronic Qualifiers: Esophagitis presence: esophagitis presence not specified Qualified Code(s) : K21.9 - Gastro-esophageal reflux disease without esophagitis (8) History of CVA (cerebrovascular accident) Status: Chronic (9) Hypertension Onset Date: 04/24/15 Status: Chronic Qualifiers: Hypertension type: essential hypertension Qualified Code(s): I10 - Essential (primary) hypertension Treatment Summary: Overall during the hospital stay patient remained stable Patient was initially admitted to the hospital for ACS rule out. Patient's troponin x2 were negative. Patient was pending echo and stress test here in the hospital. Patient however during rounds requested for more pain medication than morphine. Patient was educated extensively on the opioid abuse and was asked to take oral medications if needed for pain management. Patient refused to go comply with the opiate management and stated that he would like either Dilaudid for fentanyl for his pain management. Patient again was notified regarding the appropriate use of pain management here in the hospital. Patient then refused to get further care and left the hospital AMA. - Disposition Disposition: AMA-LEFT AGAINST MEDICAL ADVIC
[2018-05-12] MEDS ORDERED: RISPERIDONE 1 MG TABLET PO SCH (21:00)
== END 2018-05-12 09:56 | disposition left against medical advice (07) ==
LOC: ER 17:12 → ERHOLD 19:44 → INTOOBSV 19:44 → 4TH 21:51
PROVIDERS: ADMIT Hospitalist; ATTEND Hospitalist
DX: R07.9 Chest pain, unspecified (principal); F31.9 Bipolar disorder, unspecified; F20.9 Schizophrenia, unspecified; E10.9 Type 1 diabetes mellitus without complications; I10 Essential (primary) hypertension; Z89.412 Acquired absence of left great toe; F17.210 Nicotine dependence, cigarettes, uncomplicated; Z86.73 Personal history of transient ischemic attack (TIA), and cerebral infarction without residual deficits; Z53.21 Procedure and treatment not carried out due to patient leaving prior to being seen by health care provider; Z23 Encounter for immunization
CPT/HCPCS: 36415; 70450; 71045; 80048; 80061; 80076; 80307 ×8; 80320; 80329 ×2; 81003; 82140; 82962 ×3; 83690; 83721; 83735; 83880; 84484 ×3; 85025; 85610; 85730; 87088; 93005; 96361; 96372; 96374; 96375; 99285; G0008; G0378 ×2; J1650 ×2; J2405 ×2; J7030; Q2035; 87086

== ENCOUNTER 2018-07-22 19:42 | Inpatient (IN) | payer OTHER ==
[2018-07-22] MEDS ORDERED: MORPHINE 4 MG/ML SYR ONE ×2 (21:12→23:26)
[2018-07-22] MEDS ORDERED: ONDANSETRON 4 MG/2 ML VIAL ONE (21:13)
[2018-07-22] MEDS ORDERED: NA CHLORIDE 0.9% 1,000 ML ONE (21:13)
[2018-07-22 21:34] LABS: Absolute Lymphocytes (CBC) 0.8 K/uL (0.7-4.9); Absolute Monocytes 0.5 K/uL (0.1-1.3); Absolute Neutrophil 4.6 K/uL (1.8-8.0); Basophils % 0.5 % (0-1.3); Eosinophils % 2.2 % (0-4.4); Hematocrit 37.1 % (39.6-49.0); Lymphocytes % 12.5 % (15.3-44.8); MPV 10.4 fL (7.6-11.3); Monocytes % 8.7 % (3.3-12.3); RBC Red Blood Cell Count 3.83 M/uL (4.33-5.43)
[2018-07-22 21:37] LABS: Protime INR 0.89
[2018-07-22 21:40] LABS: Urine Blood TRACE (NEG); Urine Glucose 2+ (NEG); Urine Protein TRACE (NEG); Urine Specific Gravity <1.005 (1.005-1.030); Urine pH 5.5 (5.0-7.0)
[2018-07-22 21:54] LABS: Barbiturates NEGATIVE (NEGATIVE); Benzodiazepines NEGATIVE (NEGATIVE); Cocaine NEGATIVE (NEGATIVE); METHAMPHETAM POSITIVE (NEGATIVE); Methadone NEGATIVE (NEGATIVE); Opiates NEGATIVE (NEGATIVE); Phencyclidine NEGATIVE (NEGATIVE); THC Cannibis NEGATIVE (NEGATIVE)
[2018-07-22 22:26] LABS: ALT/SGPT 31 U/L (12-78); AST/SGOT 21 U/L (15-37); Albumin 4.1 g/dL (3.4-5.0); Alkaline Phosphatase 259 U/L (45-117); BUN Blood Urea Nitrogen 49 mg/dL (7-18); Bicarbonate 24 mmol/L (21-32); Bilirubin Direct < 0.1 mg/dL (0-0.2); Bilirubin Total 0.4 mg/dL (0.2-1.0); Magnesium 2.2 mg/dL (1.8-2.4); NT PRO-BNP 87 pg/mL (<125); Potassium 5.1 mmol/L (3.5-5.1); Sodium Level 120 mmol/L (136-145); Troponin (Emerg Dept Use Only) < 0.02 ng/mL (0.0-0.045)
[2018-07-22 22:27] LABS: Glucose Level 1119 mg/dL (74-106)
--- NOTE | 2018-07-22 22:44 | ER ---
Nurse's Notes [facility] Name: Gasper Fry Age: 58 yrs Sex: Male : 1960 Arrival Date: 07/22/2018 Time: 19:43 Bed 8 Private MD: Diagnosis: Type 2 diabetes mellitus;Diabetes mellitus due to underlying condition with hyperosmolarity without nonketotic hyperglycemic-hyperosmolar coma ([facility]);Other chronic pain Presentation: 07/22 20:15 Presenting complaint: Patient states: He has been incontinent of urine for the past aj1 couple of month. Patient reports pain in both legs, states that he has an infection in the bottom of his foot. Patient states that he was going to the wound healing center but he stopped going because "they weren't doing any good, they did give me antibiotics or nothing". Transition of care: patient was not received from another setting of care. Onset of symptoms was 2018. Risk Assessment: Do you want to hurt yourself or someone else? Patient reports no desire to harm self or others. Initial Sepsis Screen: Does the patient meet any 2 criteria? HR > 90 bpm. No. Patient's initial sepsis screen is negative. Does the patient have a suspected source of infection? Yes: Skin breakdown/wound. Care prior to arrival: None. 20:15 Method Of Arrival: Wheelchair aj1 20:15 Acuity: DARREL 3 aj1 Triage Assessment: 20:19 General: Appears in no apparent distress. uncomfortable, Behavior is cooperative, aj1 anxious, restless. Pain: Complains of pain in right leg and left leg. Pain: Pain currently is 9 out of 10 on a pain scale. Neuro: Level of Consciousness is awake, alert, obeys commands. Cardiovascular: Patient's skin is warm and dry. Respiratory: Airway is patent Respiratory effort is even, unlabored, Respiratory pattern is regular, symmetrical. Historical: - Allergies: 20:19 Haldol (Anaphylaxis); aj1 20:19 Narcan (Anaphylaxis); aj1 - Home Meds: 20:19 Adderall XR Oral [Active]; Cogentin Oral [Active]; Glucophage Oral [Active]; Klonopin aj1 Oral [Active]; Novolin 70/30 [place] Sub-Q [Active]; Risperdal Oral [Active]; Tramadol Oral [Active]; - PMHx: 20:19 ADD/ADHD; Anxiety; Bipolar disorder; Cellulitis; Chronic pain; CVA; Diabetes - IDDM; aj1 Hypertension; neuropathy; Seizures; - Immunization history:: Flu vaccine is up to date. - Social history:: Smoking status: Patient uses tobacco products, smokes one-half pack cigarettes per day. - Ebola Screening: : Patient denies travel to an Ebola-affected area in the 21 days before illness onset. - Family history:: not pertinent. Screenin:30 Abuse screen: Denies threats or abuse. Denies injuries from another. Nutritional rv screening: No deficits noted. Tuberculosis screening: No symptoms or risk factors identified. Fall Risk None identified. Assessment: 20:28 General: Appears in no apparent distress. uncomfortable, Behavior is cooperative, rv crying. Pain: Complains of pain in left leg and right leg. Neuro: Level of Consciousness is awake, alert, obeys commands, Oriented to person, place, time, situation. Cardiovascular: Capillary refill < 3 seconds. Respiratory: Airway is patent. GI: No signs and/or symptoms were reported involving the gastrointestinal system. : No signs and/or symptoms were reported regarding the genitourinary system. EENT: No signs and/or symptoms were reported regarding the EENT system. Derm: Wound noted medial aspect of right toes. Musculoskeletal: Reports pain in right leg and left leg. 07/23 01:30 Reassessment: PATIENT IS RESTLESS. rv 02:30 Reassessment: PATIENT IS ASLEEP, INSULIN DRIP DISCONTINUED. rv Vital Signs: 07/22 20:19 BP 156 / 93; Pulse 104; Resp 20; Temp 98.2(TE); Pulse Ox 97% on R/A; Weight 92.08 kg aj1 (R); Height 6 ft. 0 in. (182.88 cm) (R); Pain 9/10; 07/23 01:00 BP 97 / 64; Pulse 81; Resp 15 S; Pulse Ox 99% on R/A; rv 01:46 BP 121 / 64; Pulse 86; Resp 15; Pulse Ox 99% on R/A; rv 02:00 BP 94 / 53; Pulse 82; Resp 13 S; Pulse Ox 97% on R/A; rv 02:30 BP 101 / 67; Pulse 83; Resp 13; Pulse Ox 98% on R/A; rv 03:30 BP 114 / 62; Pulse 77; Resp 12; Pulse Ox 99% on R/A; lp1 14:52 BP 125 / 71; Pulse 79; Resp 15; Pulse Ox 100% on R/A; ph 07/22 20:19 Body Mass Index 27.53 (92.08 kg, 182.88 cm) aj1 ED Course: 07/22 19:43 Patient arrived in ED. ag3 20:18 Triage completed. aj1 20:19 Arm band placed on Patient placed in an exam room. aj1 20:30 Patient has correct armband on for positive identification. Placed in gown. Bed in low rv position. Call light in reach. Side rails up X2. Pulse ox on. NIBP on. 20:37 Lance Ponce MD is Attending Physician. jerome 21:10 Radiology exam delayed due to PT GOING TO THE BATHROOM AT THIS TIME. nj 21:15 Inserted saline lock: 20 gauge in right antecubital area, using aseptic technique. rv 21:[address] via stretcher. vm2 21:19 CT completed. Patient tolerated procedure well. Patient moved back from CT. vm2 21:30 CT Head Brain wo Cont In Process Unspecified. EDMS 21:31 XRAY Chest (1 view) In Process Unspecified. EDMS 22:27 US Lower Extremity Arterial Bilateral In Process Unspecified. EDMS 22:41 Justin Valente MD is Hospitalizing Provider. jerome 23:38 Note: Pt is uncooperative at this time, will try again when pt has calmed down. kw 07/23 01:25 Inserted saline lock: 22 gauge in left forearm, using aseptic technique. rv 03:15 Report received from MALU Rahman. lp1 03:58 No provider procedures requiring assistance completed. Patient admitted, IV remains in lp1 place. 05:18 X-ray completed. Portable x-ray completed in exam room. Patient tolerated procedure kw well. 07:42 Soumya Muro RN is Primary Nurse. ph Administered Medications: Discontinued: Insulin Drip - (Insulin Regular Human 100 units, NS 0.9% 100 ml) IV at 6 units/hr continuous; Standard concentration 1unit/ml; Dose for DKA is 0.1 units/kg/hr 06/08 23:30 Drug: Dilaudid 1 mg Route: IVP; Site: right antecubital; rv 07/23 01:23 Follow up: Response: Pain is decreased 07/22 21:15 Drug: morphine 4 mg Route: IVP; Site: right antecubital; 07/23 01:23 Follow up: Response: Pain is unchanged, physician notified 07/22 21:15 Drug: Zofran 4 mg Route: IVP; Site: right antecubital; 07/23 02:52 Follow up: Response: No adverse reaction 07/22 23:00 Drug: Ativan 1 mg Route: IVP; Site: right antecubital; 07/23 02:54 Follow up: Response: No adverse reaction 07/22 23:00 Drug: NS 0.9% 1000 ml Route: IV; Rate: 1 bolus; Site: right antecubital; 07/23 02:51 Follow up: IV Status: Completed infusion 07/22 23:00 Drug: Zosyn 3.375 grams Route: IVPB; Infused Over: 60 mins; Site: left antecubital; 07/23 01:22 Follow up: IV Status: Completed infusion 07/22 23:00 Drug: Insulin Regular Human 10 units {Co-Signature: alice (Tali Olvera RN).} Route: rv IVP; Site: right antecubital; 07/23 01:24 Follow up: Response: Blood sugar is lowered 07/22 23:15 Drug: morphine 4 mg Route: IVP; Site: right antecubital; rv 07/23 01:31 Follow up: Response: Pain is unchanged, physician notified 07/22 23:30 Drug: NS 0.9% 1000 ml Route: IV; Rate: 125 ml/hr; Site: right antecubital; rv 07/23 02:53 Follow up: IV Status: Completed infusion 07/22 23:30 Drug: Insulin Drip - (Insulin Regular Human 100 units, NS 0.9% 100 ml) {Co-Signature: rv fc (Tali Olvera RN).} Route: IV; Rate: 6 units/hr; Site: left forearm; 07/23 01:30 Follow up: Rate change 4 units/hr rv 07/22 23:54 Drug: NS 0.9% 500 ml Route: IV; Rate: bolus; Site: right antecubital; rv 07/23 02:54 Follow up: IV Status: Completed infusion rv 01:39 Drug: Tetanus-Diphtheria Toxoid Adult 0.5 ml {Environmental Planner: [employer]. Exp: rv 06/27/2020. Lot #: [id number]. } Route: IM; Site: left deltoid; 02:50 Follow up: Response: No adverse reaction rv Point of Care Testing: Blood Glucose: 00:34 Blood Glucose: 453 mg/dL; lt1 03:57 Blood Glucose: 136 mg/dL; lp1 Ranges: Outcome: 07/22 22:43 Decision to Hospitalize by Provider. [facility] 07/23 03:58 Admitted to ER Hold. Please see [facility] for further documentation. lp1 Condition: improved Instructed on the need for admit. 16:12 Patient left the ED. ph Signatures: Dispatcher [employer] Senia Phelps RN RN aj1 Lance Ponce MD MD cha Whitley, Kimberlee kw Pena, Laura, RN RN lp1 Soumya Muro RN RN Art Gutierrez [facility] Josiah Gonsalez RN RN Xiomara Eason Leah 1 Tali Olvera RN Corrections: (The following items were deleted from the chart) 07/22 21:11 20:54 Patient [facility] to [facility]
--- NOTE | 2018-07-22 22:44 | EDPHYS ---
Physician Documentation [facility] Name: Gasper Fry Age: 58 yrs Sex: Male : 1960 Arrival Date: 07/22/2018 Time: 19:43 Bed 8 Private MD: ED Physician Lance Ponce HPI: 07/22 20:52 This 58 yrs old Male presents to ER via Wheelchair with complaints of Leg Pain.jerome 20:52 The patient presents with decreased range of motion, pain. The complaints affect the jerome right leg and left leg. Context: The problem was sustained. Onset: The symptoms/episode began/occurred 2 day(s) ago. Modifying factors: The symptoms are alleviated by nothing. the symptoms are aggravated by nothing. Associated signs and symptoms: The patient has no apparent associated signs or symptoms. Severity of symptoms: At their worst the symptoms were moderate, severe, in the emergency department the symptoms are unchanged. The patient has experienced similar episodes in the past, multiple times. Historical: - Allergies: 20:19 Haldol (Anaphylaxis); aj1 20:19 Narcan (Anaphylaxis); aj1 - Home Meds: 20:19 Adderall XR Oral [Active]; Cogentin Oral [Active]; Glucophage Oral [Active]; Klonopin aj1 Oral [Active]; Novolin 70/30 [place] Sub-Q [Active]; Risperdal Oral [Active]; Tramadol Oral [Active]; - PMHx: 20:19 ADD/ADHD; Anxiety; Bipolar disorder; Cellulitis; Chronic pain; CVA; Diabetes - IDDM; aj1 Hypertension; neuropathy; Seizures; - Immunization history:: Flu vaccine is up to date. - Social history:: Smoking status: Patient uses tobacco products, smokes one-half pack cigarettes per day. - Ebola Screening: : Patient denies travel to an Ebola-affected area in the 21 days before illness onset. - Family history:: not pertinent. ROS: 20:52 Constitutional: Negative for fever, chills, and weight loss, Eyes: Negative for injury, jerome pain, redness, and discharge, ENT: Negative for injury, pain, and discharge, Neck: Negative for injury, pain, and swelling, Cardiovascular: Negative for chest pain, palpitations, and edema, Respiratory: Negative for shortness of breath, cough, wheezing, and pleuritic chest pain, Abdomen/GI: Negative for abdominal pain, nausea, vomiting, diarrhea, and constipation, Back: Negative for injury and pain, : Negative for injury, bleeding, discharge, and swelling, Skin: Negative for injury, rash, and discoloration, Psych: Negative for depression, anxiety, suicide ideation, homicidal ideation, and hallucinations, Allergy/Immunology: Negative for hives, rash, and allergies, Endocrine: Negative for neck swelling, polydipsia, polyuria, polyphagia, and marked weight changes, Hematologic/Lymphatic: Negative for swollen nodes, abnormal bleeding, and unusual bruising. 20:52 MS/extremity: Positive for decreased range of motion, pain, tenderness, of the right leg and left leg. Exam: 20:52 Constitutional: This is a well developed, well nourished patient who is awake, alert, jerome and in no acute distress. Head/Face: Normocephalic, atraumatic. Eyes: Pupils equal round and reactive to light, extra-ocular motions intact. Lids and lashes normal. Conjunctiva and sclera are non-icteric and not injected. Cornea within normal limits. Periorbital areas with no swelling, redness, or edema. ENT: Nares patent. No nasal discharge, no septal abnormalities noted. Tympanic membranes are normal and external auditory canals are clear. Oropharynx with no redness, swelling, or masses, exudates, or evidence of obstruction, uvula midline. Mucous membranes moist. Neck: Trachea midline, no thyromegaly or masses palpated, and no cervical lymphadenopathy. Supple, full range of motion without nuchal rigidity, or vertebral point tenderness. No Meningismus. Chest/axilla: Normal chest wall appearance and motion. Nontender with no deformity. No lesions are appreciated. Respiratory: Lungs have equal breath sounds bilaterally, clear to auscultation and percussion. No rales, rhonchi or wheezes noted. No increased work of breathing, no retractions or nasal flaring. Abdomen/GI: Soft, non-tender, with normal bowel sounds. No distension or tympany. No guarding or rebound. No evidence of tenderness throughout. Back: No spinal tenderness. No costovertebral tenderness. Full range of motion. Male : Normal genitalia with no discharge or lesions. Skin: Warm, dry with normal turgor. Normal color with no rashes, no lesions, and no evidence of cellulitis. Psych: Awake, alert, with orientation to person, place and time. Behavior, mood, and affect are within normal limits. 20:52 Cardiovascular: Rate: tachycardic, Rhythm: regular, Pulses: Pulses are 4+ in bilateral radial, brachial, femoral, popliteal, posterior tibial and and dorsalis pedis arteries.. Heart sounds: normal, Edema: is not appreciated, JVD: is not appreciated. Vital Signs: 20:19 BP 156 / 93; Pulse 104; Resp 20; Temp 98.2(TE); Pulse Ox 97% on R/A; Weight 92.08 kg aj1 (R); Height 6 ft. 0 in. (182.88 cm) (R); Pain 9/10; 07/23 01:00 BP 97 / 64; Pulse 81; Resp 15 S; Pulse Ox 99% on R/A; rv 01:46 BP 121 / 64; Pulse 86; Resp 15; Pulse Ox 99% on R/A; rv 02:00 BP 94 / 53; Pulse 82; Resp 13 S; Pulse Ox 97% on R/A; rv 02:30 BP 101 / 67; Pulse 83; Resp 13; Pulse Ox 98% on R/A; rv 03:30 BP 114 / 62; Pulse 77; Resp 12; Pulse Ox 99% on R/A; lp1 14:52 BP 125 / 71; Pulse 79; Resp 15; Pulse Ox 100% on R/A; ph 07/22 20:19 Body Mass Index 27.53 (92.08 kg, 182.88 cm) [facility] MDM: 07/22 20:37 Patient medically screened. [facility] 20:54 Data reviewed: vital signs, nurses notes, lab test result(s), EKG, radiologic studies, [facility] CT scan, plain films. 07/22 20:49 Order name: Basic Metabolic Panel; Complete Time: 00:43 [facility] 07/22 20:49 Order name: CBC with Diff; Complete Time: 21:49 [facility] 07/22 20:49 Order name: LFT's; Complete Time: 00:43 [facility] 07/22 20:49 Order name: Magnesium; Complete Time: 00:43 [facility] 07/22 20:49 Order name: NT PRO-BNP; Complete Time: 00:43 [facility] 07/22 20:49 Order name: PT-INR; Complete Time: 21:49 [facility] 07/22 20:49 Order name: Troponin (emerg Dept Use Only); Complete Time: 00:43 [facility] 07/22 20:49 Order name: Acetaminophen; Complete Time: 00:43 [facility] 07/22 20:49 Order name: ETOH Level; Complete Time: 21:58 [facility] 07/22 20:49 Order name: Ptt, Activated; Complete Time: 21:49 [facility] 07/22 20:49 Order name: Salicylate; Complete Time: 22:14 [facility] 07/22 20:49 Order name: Urine Drug Screen; Complete Time: 21:58 [facility] 07/22 20:55 Order name: Procalcitonin; Complete Time: 00:43 [facility] 07/22 21:38 Order name: Urine Dipstick--Ancillary (enter results) 07/22 21:41 Order name: Urine Dipstick-Ancillary [facility] 07/22 22:40 Order name: Urine Sodium Random; Complete Time: 00:43 [facility] 07/22 22:40 Order name: Urine Osmolality; Complete Time: 01:26 [facility] 07/22 22:40 Order name: Osmolality, Serum; Complete Time: 02:26 [facility] 07/22 22:40 Order name: ABG; Complete Time: 00:43 [facility] 07/22 22:40 Order name: Blood Culture Adult (2) [facility] 07/22 23:27 Order name: CBC with Automated Diff [facility] 07/22 23:28 Order name: CBC with Automated Diff [facility] 07/22 23:28 Order name: Comprehensive Metabolic Panel [facility] 07/22 23:28 Order name: Comprehensive Metabolic Panel [facility] 07/22 23:28 Order name: Hemoglobin A1c [facility] 07/22 23:28 Order name: Hemoglobin A1c [facility] 07/23 00:41 Order name: BMP lp1 07/23 01:25 Order name: Basic Metabolic Panel; Complete Time: 01:26 [facility] 07/23 01:54 Order name: Glucose, Ancillary Testing; Complete Time: 02:26 [facility] 07/23 02:27 Order name: Glucose, Ancillary Testing; Complete Time: 07:53 [facility] 07/22 20:49 Order name: XRAY Chest (1 view); Complete Time: 07:53 [facility] 07/22 20:49 Order name: EKG; Complete Time: 20:50 [facility] 07/22 20:49 Order name: Cardiac monitoring; Complete Time: 01:23 [facility] 07/22 20:49 Order name: EKG - Nurse/Tech; Complete Time: 01:23 [facility] 07/22 20:49 Order name: IV Saline Lock; Complete Time: 21:33 [facility] 07/22 20:49 Order name: Labs collected and sent; Complete Time: 21:33 [facility] 07/22 20:49 Order name: O2 Per Protocol; Complete Time: 21:33 [facility] 07/22 20:49 Order name: US Lower Extremity Arterial Bilateral [facility] 07/22 20:49 Order name: CT Head Brain wo Cont [facility] 07/22 23:15 Order name: Foot Right 2 View XRAY [facility] 07/22 23:27 Order name: CONS Pharmacy Consult [facility] 07/22 23:27 Order name: Consistent Carb (ADA) [address] [facility] 07/23 06:01 Order name: Glucose, Ancillary Testing; Complete Time: 07:53 [facility] 07/23 06:01 Order name: Glucose, Ancillary Testing; Complete Time: 07:53 [facility] 07/23 09:53 Order name: Glucose, Ancillary Testing [facility] 07/23 10:20 Order name: RAD [facility] 07/23 14:05 Order name: Diet Ada [address]; Complete Time: 14:06 dh3 07/23 14:32 Order name: Gram Stain--Anaerobic Bottle [facility] 07/22 20:49 Order name: O2 Sat Monitoring; Complete Time: 21:33 [facility] 07/22 20:49 Order name: Urine Dipstick-Ancillary (obtain specimen); Complete Time: 21:32 [facility] 07/22 22:48 Order name: IV Saline Lock - Large Bore; Complete Time: 01:18 [facility] 07/22 23:15 Order name: Wound Care; Complete Time: 01:18 [facility] Administered Medications: Discontinued: Insulin Drip - (Insulin Regular Human 100 units, NS 0.9% 100 ml) IV at 6 units/hr continuous; Standard concentration 1unit/ml; Dose for DKA is 0.1 units/kg/hr 06/08 23:30 Drug: Dilaudid 1 mg Route: IVP; Site: right antecubital; 07/23 01:23 Follow up: Response: Pain is decreased 07/22 21:15 Drug: morphine 4 mg Route: IVP; Site: right antecubital; 07/23 01:23 Follow up: Response: Pain is unchanged, physician notified 07/22 21:15 Drug: Zofran 4 mg Route: IVP; Site: right antecubital; 07/23 02:52 Follow up: Response: No adverse reaction 07/22 23:00 Drug: Ativan 1 mg Route: IVP; Site: right antecubital; 07/23 02:54 Follow up: Response: No adverse reaction 07/22 23:00 Drug: NS 0.9% 1000 ml Route: IV; Rate: 1 bolus; Site: right antecubital; 07/23 02:51 Follow up: IV Status: Completed infusion 07/22 23:00 Drug: Zosyn 3.375 grams Route: IVPB; Infused Over: 60 mins; Site: left antecubital; 07/23 01:22 Follow up: IV Status: Completed infusion 07/22 23:00 Drug: Insulin Regular Human 10 units {Co-Signature: fc (Tali Olvera RN).} Route: rv IVP; Site: right antecubital; 07/23 01:24 Follow up: Response: Blood sugar is lowered 07/22 23:15 Drug: morphine 4 mg Route: IVP; Site: right antecubital; 07/23 01:31 Follow up: Response: Pain is unchanged, physician notified 07/22 23:30 Drug: NS 0.9% 1000 ml Route: IV; Rate: 125 ml/hr; Site: right antecubital; 07/23 02:53 Follow up: IV Status: Completed infusion 07/22 23:30 Drug: Insulin Drip - (Insulin Regular Human 100 units, NS 0.9% 100 ml) {Co-Signature: rv fc (Tali Olvera RN).} Route: IV; Rate: 6 units/hr; Site: left forearm; 07/23 01:30 Follow up: Rate change 4 units/hr 07/22 23:54 Drug: NS 0.9% 500 ml Route: IV; Rate: bolus; Site: right antecubital; 07/23 02:54 Follow up: IV Status: Completed infusion rv 01:39 Drug: Tetanus-Diphtheria Toxoid Adult 0.5 ml {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 Exp: 06/27/2020. Lot #: [id number]. } Route: IM; Site: left deltoid; 02:50 Follow up: Response: No adverse reaction rv Point of Care Testing: Blood Glucose: 00:34 Blood Glucose: 453 mg/dL; lt1 03:57 Blood Glucose: 136 mg/dL; lp1 Ranges: Critical Glucose Levels:Adult <50 mg/dl or >400 mg/dl <40 mg/dl or >180 mg/dl Disposition: 07/22/18 22:43 Hospitalization ordered by Justin Valente for Inpatient Admission. Preliminary diagnosis are Type 2 diabetes mellitus, Diabetes mellitus due to underlying condition with hyperosmolarity without nonketotic hyperglycemic-hyperosmolar coma ([facility]), Other chronic pain. - Bed requested for Telemetry/MedSurg (Inpatient). - Status is Inpatient Admission. ph - Condition is Serious. - Problem is new. - Symptoms have improved. UTI on Admission? No Signatures: Dispatcher [employer] EDMS Senia Alvarenga RN RN ajRina Jacob RN RN dw Anderson, Corey, MD MD cha Chretien, Felicia, RN RN fc Hall, Patricia, RN RN ph Page, Corey, PA PA cp Vicente, Ronaldo, RN RN Tali jenkins Corrections: (The following items were deleted from the chart) 03:07/22 22:43 Hospitalization Ordered by Justin Valente MD for Inpatient Admission. fc Preliminary diagnosis is Type 2 diabetes mellitus; Diabetes mellitus due to underlying condition with hyperosmolarity without nonketotic hyperglycemic-hyperosmolar coma ([facility]); Other chronic pain. Bed requested for Intensive Care Unit. Status is Inpatient Admission. Condition is Serious. Problem is new. Symptoms have improved. UTI on Admission? No. jerome 07/23 13:57 03:28 07/22/2018 22:43 Hospitalization Ordered by Justin Valente MD for Inpatient dw Admission. Preliminary diagnosis is Type 2 diabetes mellitus; Diabetes mellitus due to underlying condition with hyperosmolarity without nonketotic hyperglycemic-hyperosmolar coma ([facility]); Other chronic pain. Bed requested for [facility] ER HOLD. Status is Inpatient Admission. Condition is Serious. Problem is new. Symptoms have improved. UTI on Admission? No. alice 13:57 13:57 07/22/2018 22:43 Hospitalization Ordered by Justin Valente MD for Inpatient dw Admission. Preliminary diagnosis is Type 2 diabetes mellitus; Diabetes mellitus due to underlying condition with hyperosmolarity without nonketotic hyperglycemic-hyperosmolar coma ([facility]); Other chronic pain. Bed requested for Telemetry/MedSurg (Inpatient). Status is Inpatient Admission. Condition is Serious. Problem is new. Symptoms have improved. UTI on Admission? No. dw 16:12 13:57 07/22/2018 22:43 Hospitalization Ordered by Justin Valente MD for Inpatient Admission. Preliminary diagnosis is Type 2 diabetes mellitus; Diabetes mellitus due to underlying condition with hyperosmolarity without nonketotic hyperglycemic-hyperosmolar coma ([facility]); Other chronic pain. Bed requested for Telemetry/MedSurg (Inpatient). Status is Inpatient Admission. Condition is Serious. Problem is new. Symptoms have improved. UTI on Admission? No. dw
[2018-07-22] MEDS ORDERED: LORazepam 2 MG/ML VIAL ONE (22:45)
[2018-07-22] MEDS ORDERED: ACETAMINOPHEN 500 MG TAB PO PRN (23:23)
[2018-07-22] MEDS ORDERED: INSULIN -REGULAR HUMAN 50 UNIT/0.5 ML ML ONE (23:25)
[2018-07-22] MEDS ORDERED: PIPER/TAZO/NS 3.375gm 3.375 GM/100 ML BAG ONE (23:26)
[2018-07-22] MEDS ORDERED: NA CHLORIDE 0.9% 100 ML IV ONE (23:26)
[2018-07-22] MEDS ORDERED: NA CHLORIDE 0.9% 500 ML ONE (23:26)
[2018-07-22] MEDS ORDERED: HYDROMORPHONE HCL 2 MG/ML inj ONE (23:49)
[2018-07-23 00:14] LABS: Arterial Blood Carboxyhemoglob 1.2 % (0-1.5); Blood Gas Oxyhemoglobin 95.9 % (94-97); Blood O2 Saturation 98.1 % (92-98.5)
[2018-07-23 01:24] LABS: Potassium 4.6 mmol/L (3.5-5.1)
[2018-07-23] MEDS ORDERED: TETANUS & DIPHTHERIA TOX,ADULT 0.5 ML VIAL ONE (01:48)
[2018-07-23 04:53] VITALS: BMI 27.5
[2018-07-23] MEDS: NA CHLORIDE 0.9% 1,000 ML IV SCH ×4 (05:42→23:45)
[2018-07-23] MEDS ORDERED: NA CHLORIDE 0.9% 1,000 ML ONE (05:48)
--- NOTE | 2018-07-23 07:00 | RAD REPORT ---
EXAM DESCRIPTION: RAD - Chest Single View - 07/22/2018 9:31 pm CLINICAL HISTORY: Cough, shortness of breath COMPARISON: May 11, 2018 TECHNIQUE: AP portable chest image was obtained 2127 hours . FINDINGS: Lung volumes are low. No focal lung parenchymal process. No failure or volume overload. Lo rdotic positioning partially obscures each lung apex. No abnormality suspected. Heart and vasculature are normal. No measurable pleural effusion and no pneumothorax. No acute bony abnormality seen. No a cute aortic findings suspected. IMPRESSION: No acute cardiopulmonary process. No suspicious interval change.
[2018-07-23] MEDS: ONDANSETRON 4 MG/2 ML VIAL IV PRN ×2 (08:05→12:20)
[2018-07-23] MEDS: MORPHINE 4 MG/ML SYR IV PRN ×2 (08:05→12:20)
[2018-07-23] MEDS ORDERED: MORPHINE 4 MG/ML SYR ONE ×2 (08:29→12:21)
[2018-07-23] MEDS ORDERED: ONDANSETRON 4 MG/2 ML VIAL ONE ×2 (08:29→12:21)
[2018-07-23] MEDS: INSULIN -REGULAR HUMAN 50 UNIT/0.5 ML ML SQ SCH ×4 (08:30→20:22)
[2018-07-23] MEDS ORDERED: INSULIN -REGULAR HUMAN 50 UNIT/0.5 ML ML ONE ×2 (09:07→13:24)
--- NOTE | 2018-07-23 09:38 | P.HP ---
Certification for Inpatient Patient admitted to: Inpatient With expected LOS: >2 Midnights Patient will require the following post-hospital care: None Practitioner: I am a practitioner with admitting privileges, knowledge of patient current condition, hospital course, and medical plan of care. Services: Services provided to patient in accordance with Admission requirements found in Title 42 Section 412.3 of the Code of Federal Regulations Patient History Date of Service: 07/23/18 Reason for admission: hyperosmolar nonketotic syndrome /altered mental status /diabetic foot ul History of Present Illness: Patient is a 58-year-old gentleman who is well known to me from prior admissions. Has history of poorly controlled diabetes. He has diabetic foot ulcer which is open and dirty. His blood sugars were greater than 1000. He was admitted with hyperosmolar nonketotic syndrome. He was admitted to the hospital for further workup. Patient was given IV fluids. His blood sugars are improving. He will need wound care and once his mentation improves hopefully will be able to discharge home with outpatient follow-up with wound healing Center. Allergies haloperidol [From Haldol] Allergy (Verified 05/12/18 02:07) Anaphylaxis naloxone [From Narcan] Allergy (Verified 05/12/18 02:07) Unknown Home Medications: Benztropine Mesylate [Cogentin] 0.5 mg PO BID 02/19/17 Insulin 70/30 NPH/Reg Human [Novolin 70/30*] 15 unit SQ BID 02/19/17 Risperidone 4 mg PO BEDTIME 02/19/17 clonazePAM [Klonopin*] 1 mg PO TID 02/19/17 Divalproex Sodium [Depakote ER] 500 mg PO BEDTIME 05/12/18 Duloxetine HCl [Cymbalta] 60 mg PO DAILY 05/12/18 Losartan Potassium [Cozaar] 100 mg PO DAILY 05/12/18 - Past Medical/Surgical History Diabetic: Yes -: Type 1 DM -: HTN -: Bipolar -: Schizophrenia -: high cholesterol -: seizures -: Diabetes mellitus type 2 -: History of seizure -: History of osteomyelitis -: History of amputation to the left great toe -: History of blood clots -: seizures -: Neck and back surgery -: Right eye removal -: Right knee surgery -: Bilateral wrist surgery due to suicide attempt -: Left great toe amputation Psychosocial/ Personal History: Patient is . He has 2 children. He lives at home. - Family History Brother Medical History: Hypertension Sister Medical History: Diabetes Father Medical History: Heart disease Notes: heart attack Mother Medical History: Diabetes - Social History Alcohol use: No CD- Drugs: No Caffeine use: Yes Review of Systems is unable to be obtained Physical Examination - Vital Signs Temperature: 99 F Blood Pressure: 114/62 Pulse: 77 Respirations: 12 Pulse Ox (%): 99 - Physical Exam General: In no apparent distress, Confused HEENT: Atraumatic, PERRLA, Mucous membr. moist/pink, EOMI, Sclerae nonicteric Neck: Supple, 2+ carotid pulse no bruit, No LAD, Without JVD or thyroid abnormality Respiratory: Clear to auscultation bilaterally, Normal air movement Cardiovascular: Regular rate/rhythm, Normal S1 S2, No murmurs Gastrointestinal: Normal bowel sounds, Soft and benign, Non-distended, No tenderness Musculoskeletal: No clubbing, No swelling, No tenderness Integumentary: No rashes Neurological: Normal tone, Sensation intact, Cranial nerves 3-12 intact, Normal affect, Abnormal gait, Abnormal speech, Abnormal strength Lymphatics: No axilla or inguinal lymphadenopathy - Studies Laboratory Data (last 24 hrs) 07/22/18 21:10: PT 10.6, INR 0.89, APTT 26.4 07/22/18 21:10: WBC 6.1, Hgb 12.3 L, Hct 37.1 L, Plt Count 208 07/22/18 21:10: Sodium 120 L, Potassium 5.1, BUN 49 H, Creatinine 2.13 H, Glucose 1119 H*, Magnesium 2.2, Total Bilirubin 0.4, AST 21, ALT 31, Alkaline Phosphatase 259 H Assessment & Plan - Problems (Diagnosis) (1) Diabetic ulcer of left foot Current Visit: Yes Status: Acute (2) Cellulitis of foot, left Current Visit: Yes Status: Acute (3) Altered awareness, transient Onset Date: 02/19/17 Current Visit: No Status: Acute (4) Bipolar 1 disorder Onset Date: 02/19/17 Current Visit: No Status: Acute (5) Bipolar 1 disorder Current Visit: No Status: Acute (6) DM2 (diabetes mellitus, type 2) Current Visit: No Status: Acute (7) Diabetic ulcer of right foot Current Visit: No Status: Acute (8) Hard of hearing Current Visit: No Status: Acute (9) History of DVT (deep vein thrombosis) Current Visit: No Status: Acute (10) Hx of suicide attempt Current Visit: No Status: Acute (11) History of CVA (cerebrovascular accident) Current Visit: No Status: Chronic (12) Hypertension Onset Date: 04/24/15 Current Visit: No Status: Chronic Qualifiers: Hypertension type: essential hypertension Qualified Code(s): I10 - Essential (primary) hypertension (13) Schizophrenia Onset Date: 04/24/15 Current Visit: No Status: Chronic Qualifiers: Schizophrenia type: unspecified Qualified Code(s): F20.9 - Schizophrenia, unspecified (14) Seizure disorder Onset Date: 04/24/15 Current Visit: No Status: Chronic (15) Hyperosmolar (nonketotic) coma Current Visit: Yes Status: Acute - Plan Plan: 1. IV hydration 2. Strict blood sugar control 3. Accu-Cheks Q 6 4. wound healing consultation 5. IV antibiotics 6. Neurochecks Q 6 hr 7. GI and DVT prophylaxis Discharge Plan: Home Plan to discharge in: 24 Hours - Advance Directives Does patient have a Living Will: Yes Does patient have a Durable POA for Healthcare: No - Code Status/Comfort Care Code Status Assessed: Yes Code Status: Full Code Critical Care: No Time Spent Managing PTS Care (In Minutes): 45
[2018-07-23 09:46] LABS: Absolute Lymphocytes (CBC) 1.9 K/uL (0.7-4.9); Absolute Monocytes 0.6 K/uL (0.1-1.3); Basophils % 0.5 % (0-1.3); Hematocrit 36.2 % (39.6-49.0); Lymphocytes % 32.4 % (15.3-44.8); MPV 9.3 fL (7.6-11.3); Monocytes % 10.5 % (3.3-12.3)
--- NOTE | 2018-07-23 09:49 | RAD REPORT ---
EXAM DESCRIPTION: US - Lower Extremity Arterial Bilat - 07/22/2018 10:28 pm CLINICAL HISTORY: Bilateral leg pain. Preliminary findings provided at the time of the study. COMPARISON: None. TECHNIQUE: Waveforms and velocities were obtained along the length of each lower extremity. Visual i nspection of the lower extremity arterial tree performed. FINDINGS: Both lower extremities show a triphasic waveform pattern in the common femoral and superfi cial femoral arteries. Monophasic waveform patterns were seen at the posterior tibial and dorsalis pe dis arteries at each ankle. There is a transition of a more biphasic waveform pattern near each popli teal artery. On visual inspection no focal occlusion or flow restricting lesion identified. Atherosclerotic calcif ications are identifiable. Velocity values overall are increased over what is typically seen. This ca n be an indication of iliac atherosclerotic disease as well. IMPRESSION: Moderate severity bilateral lower extremity peripheral arterial disease without a focal occlusion or focal flow restricting lesion.
--- NOTE | 2018-07-23 09:49 | EKG ---
Test Date: 2018-07-22 Test Time: 23:23:01 Furniture Packer: BOZENA MEASUREMENT RESULTS: Intervals: Rate: 90 OR: 170 QRSD: 96 QT: 400 QTc: 489 [place]: P: 52 OR: 170 QRS: -39 T: 59 INTERPRETIVE STATEMENTS: Normal sinus rhythm Left axis deviation Prolonged QT Abnormal ECG Compared to ECG 05/11/2018 17:35:45 Prolonged QT interval now present Myocardial infarct finding no longer present Electronically Signed On 07-23-18 08:33:32 [employer]IX[employer] by Dino Rios
--- NOTE | 2018-07-23 09:50 | RAD REPORT ---
EXAM DESCRIPTION: RAD - Foot Right 2 View - 07/23/2018 5:19 am CLINICAL HISTORY: Foot pain, foot wound medial margin first MTP joint region COMPARISON: March 2016 FINDINGS: No acute fracture changes identifiable. No acute or destructive bone process that would in dicate osteomyelitis. Soft tissue swelling is present near the medial margin first MTP joint and medi al margin of the first proximal phalanx. Patient has advanced degenerative change to the first toe IP joint and the first MTP joint. This is progressive from the 2016 comparison. IP degenerative changes are present in the second- fifth toes with no significant MTP degenerative change at that level. Mid foot degenerative changes are present. No plantar spur. No air or foreign body in the soft tissues. Arterial calcifications are present. IMPRESSION: Patient has advanced degenerative change at the first MTP joint and the first toe IP cecil nt, both progressive from 2016 comparison. No fracture changes are present. No erosive or destructive process to indicate osteomyelitis. Soft tissue swelling around the first MTP joint and first proximal phalanx. No air or foreign body.
[2018-07-23 10:07] LABS: Albumin 3.7 g/dL (3.4-5.0); Bilirubin Total 0.5 mg/dL (0.2-1.0); Potassium 3.8 mmol/L (3.5-5.1); Protein, Total 7.3 g/dL (6.4-8.2)
--- NOTE | 2018-07-23 11:21 | RAD REPORT ---
EXAM DESCRIPTION: CT - Head Brain Wo Cont CLINICAL HISTORY: 58 years Male HEADACHE COMPARISON: None. TECHNIQUE: Images were obtained in axial, sagittal, and coronal planes. This exam was performed according to our departmental dose-optimization program, which includes autom ated exposure control, adjustment of the mA and/or kV according to patient size and/or less of iterat geri reconstruction technique. FINDINGS: Ventricular system appears age appropriate in size. Mild prominence of the cortical sulci. No abnormal areas of increased or decreased attenuation seen. No extra-axial collections noted. No evidence for skull fractures. Incomplete pneumatization medial left mastoid air cells. Unremarkabl e paranasal sinuses. IMPRESSION: No acute intracranial abnormality. No evidence for hemorrhage, mass lesion, or large acute infarction . Electronically signed by Sanam Weber MD 07/22/2018 9:40 AM EVENT PROMOTIONS COORDINATOR Due to temporary technical issues with the PACS/Fluency reporting system, reports are being signed by the in house radiologist as a courtesy to ensure prompt reporting. The interpreting radiologist is f ully responsible for the content of the report.
[2018-07-23] MEDS ORDERED: GLUCAGON 1 MG/VIAL IM PRN ×2 (15:55→16:59)
[2018-07-23] MEDS ORDERED: D50W 25 GM/50 ML SYRINGE IV PRN ×2 (15:55→16:59)
[2018-07-23 16:35] VITALS: O2SAT 100
[2018-07-23] MEDS ORDERED: INSULIN 70/30 100 UNITS/ML SQ ONE (17:00)
[2018-07-23] MEDS: BENZTROPINE 1 MG TAB PO SCH (20:20)
[2018-07-23] MEDS: clonazePAM 1 MG TAB PO SCH (20:21)
[2018-07-23] MEDS ORDERED: RISPERIDONE 1 MG TABLET PO SCH (21:00)
[2018-07-23] MEDS ORDERED: DIVALPROEX ER 250 MG TAB PO SCH (21:00)
[2018-07-23] MEDS ORDERED: BENZTROPINE MESYLATE 0.5 MG PO SCH (21:00)
[2018-07-23] MEDS ORDERED: RISPERIDONE 4 MG PO SCH (21:00)
[2018-07-23] MEDS ORDERED: HOME MED 1 EA UNK (Divalproex Sodium [Depakote Er] 500 MG) PO SCH (21:00)
[2018-07-24] MEDS ORDERED: D50W 25 GM/50 ML SYRINGE IV PRN (01:35)
[2018-07-24] MEDS ORDERED: GLUCAGON 1 MG/VIAL IM PRN (01:35)
[2018-07-24] MEDS ORDERED: INSULIN 70/30 100 UNITS/ML SQ ONE (01:35)
[2018-07-24] MEDS: INSULIN -REGULAR HUMAN 50 UNIT/0.5 ML ML SQ SCH (07:30)
[2018-07-24] MEDS: NA CHLORIDE 0.9% 1,000 ML IV SCH (07:45)
[2018-07-24] MEDS ORDERED: MEDIHONEY 44 ML TOPICAL TUBE TOP SCH (09:00)
[2018-07-24] MEDS ORDERED: HOME MED 1 EA UNK (Losartan Potassium [Cozaar] 100 MG) PO SCH (09:00)
[2018-07-24] MEDS ORDERED: DULOXETINE 30 MG CAP PO SCH (09:00)
[2018-07-24] MEDS ORDERED: LOSARTAN POTASSIUM 50 MG TABLET PO SCH (09:00)
[2018-07-24] MEDS ORDERED: INSULIN 70/30 100 UNITS/ML SQ SCH (09:00)
[2018-07-24] MEDS ORDERED: HOME MED 1 EA UNK (Duloxetine Hcl [Cymbalta] 60 MG) PO SCH (09:00)
[2018-07-24 09:08] VITALS: BP 105/61; TEMP 98
[2018-07-24] MEDS: BENZTROPINE 1 MG TAB PO SCH (09:39)
[2018-07-24] MEDS: clonazePAM 1 MG TAB PO SCH (09:40)
--- NOTE | 2018-07-27 06:24 | P.DS ---
Discharge Date: 07/24/18 Disposition: ROUTINE DISCHARGE Discharge Condition: GOOD Reason for Admission: hyperosmolar nonketotic syndrome /altered mental status /diabetic foot ul - Problems (1) Diabetic ulcer of left foot Onset Date: 07/23/18 Status: Acute (2) Cellulitis of foot, left Onset Date: 07/23/18 Status: Acute (3) Altered awareness, transient Onset Date: 02/19/17 Status: Acute (4) Bipolar 1 disorder Onset Date: 02/19/17 Status: Acute (5) Bipolar 1 disorder Status: Acute (6) DM2 (diabetes mellitus, type 2) Status: Acute (7) Diabetic ulcer of right foot Status: Acute (8) Hard of hearing Status: Acute (9) History of DVT (deep vein thrombosis) Status: Acute (10) Hx of suicide attempt Status: Acute (11) History of CVA (cerebrovascular accident) Status: Chronic (12) Hypertension Onset Date: 04/24/15 Status: Chronic Qualifiers: Hypertension type: essential hypertension Qualified Code(s): I10 - Essential (primary) hypertension (13) Schizophrenia Onset Date: 04/24/15 Status: Chronic Qualifiers: Schizophrenia type: unspecified Qualified Code(s): F20.9 - Schizophrenia, unspecified (14) Seizure disorder Onset Date: 04/24/15 Status: Chronic (15) Hyperosmolar (nonketotic) coma Onset Date: 07/23/18 Status: Acute Brief History of Present Illness: Patient is a 58-year-old gentleman who is well known to me from prior admissions. Has history of poorly controlled diabetes. He has diabetic foot ulcer which is open and dirty. His blood sugars were greater than 1000. He was admitted with hyperosmolar nonketotic syndrome. He was admitted to the hospital for further workup. Patient was given IV fluids. His blood sugars are improving. He will need wound care and once his mentation improves hopefully will be able to discharge home with outpatient follow-up with wound healing Center. Vital Signs/Physical Exam: Temp Pulse Resp BP Pulse Ox 98.0 F 75 20 105/61 98 07/24/18 08:00 07/24/18 08:00 07/24/18 08:00 07/24/18 08:00 07/24/18 08:00 Laboratory Data at Discharge: WBC 5.7 K/uL (4.3-10.9) 07/23/18 09:35 Hgb 12.5 g/dL (13.6-17.9) L 07/23/18 09:35 Hct 36.2 % (39.6-49.0) L 07/23/18 09:35 Plt Count 223 K/uL (152-406) 07/23/18 09:35 PT 10.6 SECONDS (9.5-12.5) 07/22/18 21:10 INR 0.89 07/22/18 21:10 APTT 26.4 SECONDS (24.3-36.9) 07/22/18 21:10 Sodium 133 mmol/L (136-145) L 07/23/18 09:35 Potassium 3.8 mmol/L (3.5-5.1) 07/23/18 09:35 BUN 40 mg/dL (7-18) H 07/23/18 09:35 Creatinine 1.58 mg/dL (0.55-1.3) H 07/23/18 09:35 Glucose 262 mg/dL (74-106) H 07/23/18 09:35 Magnesium 2.2 mg/dL (1.8-2.4) 07/22/18 21:10 Total Bilirubin 0.5 mg/dL (0.2-1.0) 07/23/18 09:35 AST 28 U/L (15-37) 07/23/18 09:35 ALT 30 U/L (12-78) 07/23/18 09:35 Alkaline Phosphatase 151 U/L (45-117) H 07/23/18 09:35 Home Medications: Benztropine Mesylate [Cogentin] 0.5 mg PO BID 02/19/17 Insulin 70/30 NPH/Reg Human [Novolin 70/30*] 15 unit SQ BID 02/19/17 Risperidone 4 mg PO BEDTIME 02/19/17 clonazePAM [Klonopin*] 1 mg PO TID 02/19/17 Divalproex Sodium [Depakote ER] 500 mg PO BEDTIME 05/12/18 Duloxetine HCl [Cymbalta] 60 mg PO DAILY 05/12/18 Losartan Potassium [Cozaar] 100 mg PO DAILY 05/12/18 Medihoney [Medihoney Woundcare Gel] 44 appl TOP DAILY #1 tube 07/23/18 New Medications: Medihoney [Medihoney Woundcare Gel] 44 appl TOP DAILY #1 tube Patient Discharge Instructions: OK TO DC IV AND DC HOME. FOLLOW-UP WITH PCP IN 1-2 WEEKS. CALL ME AT [phone] IF ANY QUESTIONS REGARDING HOSPITAL STAY. RETURN TO THE ER IF SYMPTOMS WORSENS. PLEASE DO DIABETIC EDUCATION PRIOR TO DISCHARGE AND ADVISE THE IMPORTANCE OF STRICT BLOOD SUGAR CONTROL([id number]=04.5) Diet: ADA Activity: Fall precautions
== END 2018-07-24 11:20 | disposition home or self-care (01) | DRG 641 ==
LOC: ER 19:42 → ERHOLD 23:23 → 4TH 07-23 15:49
PROVIDERS: ADMIT Hospitalist; ATTEND Hospitalist
DX: E87.0 Hyperosmolality and hypernatremia (principal); L03.116 Cellulitis of left lower limb; I10 Essential (primary) hypertension; F31.9 Bipolar disorder, unspecified; E11.621 Type 2 diabetes mellitus with foot ulcer; G40.909 Epilepsy, unspecified, not intractable, without status epilepticus; F20.9 Schizophrenia, unspecified; E78.00 Pure hypercholesterolemia, unspecified; Z86.718 Personal history of other venous thrombosis and embolism
CPT/HCPCS: 36415; 70450; 71045; 80048; 80053; 80076; 80307; 80320; 80329; 81003; 82805; 82962; 83036; 83735; 83880; 83930; 83935; 84145; 84300; 84484; 85025; 85610; 85730; 87040; 87070; 87077; 87186; 87205; 90714; 93005; 93925; 99285; J1170; J2405; J2543; J7030

== ENCOUNTER 2018-10-01 15:19 | Emergency (ER) | payer OTHER ==
[2018-10-01] MEDS ORDERED: TRAMADOL HCL 50 MG TAB ONE (17:37)
--- NOTE | 2018-10-01 18:11 | RAD REPORT ---
EXAM DESCRIPTION: RAD - Foot Right 3 View - 10/01/2018 5:56 pm CLINICAL HISTORY: chronic wound MTP first toe plantar aspect;Pain COMPARISON: Foot Right 2 View dated 07/23/2018; Foot Right 3 View dated 03/13/2016 FINDINGS: Degenerative changes are present involving the great toe intertarsal joint as well as the first MTP joint. Moderate soft tissue swelling is present involving the great toe extending along the forefoot, both plantar and dorsal aspects. No soft tissue gas seen. No radiographic finding to indic ate osteomyelitis. Vascular calcifications are present.
--- NOTE | 2018-10-01 18:33 | ER ---
Nurse's Notes [facility] Name: Gasper Fry Age: 58 yrs Sex: Male : 1960 Arrival Date: 10/01/2018 Time: 15:21 Bed 14 Private MD: Rajendra Adkins Diagnosis: Presentation: 10/01 15:41 Presenting complaint: Patient states: "I got infection in my leg, but both my legs have aj1 been hurting me for some time, and I've been told that my legs infected" Patient reports that he has been seeing the wound care center and his family doctor for the infection in his leg. He saw his pain specialist today and he was advised to come to the ER because his leg is still looking infected. Transition of care: patient was not received from another setting of care. Onset of symptoms was October 01, 2018. Risk Assessment: Do you want to hurt yourself or someone else? Patient reports no desire to harm self or others. Initial Sepsis Screen: Does the patient meet any 2 criteria? HR > 90 bpm. No. Patient's initial sepsis screen is negative. Does the patient have a suspected source of infection? Yes: Skin breakdown/wound. Care prior to arrival: None. 15:41 Method Of Arrival: Ambulatory aj1 15:41 Acuity: DARREL 3 aj1 Triage Assessment: 15:46 General: Appears in no apparent distress. uncomfortable, Behavior is calm, cooperative, aj1 appropriate for age. Pain: Complains of pain in right leg and left leg Pain currently is 8 out of 10 on a pain scale. Neuro: Level of Consciousness is awake, alert, obeys commands. Cardiovascular: Patient's skin is warm and dry. Respiratory: Airway is patent Respiratory effort is even, unlabored, Respiratory pattern is regular, symmetrical. Historical: - Allergies: 15:46 Haldol (Anaphylaxis); aj1 15:46 Narcan (Anaphylaxis); aj1 - Home Meds: 15:46 Adderall XR Oral [Active]; Cogentin Oral [Active]; Glucophage Oral [Active]; Klonopin aj1 Oral [Active]; Novolin 70/30 [place] Sub-Q [Active]; Risperdal Oral [Active]; Tramadol Oral [Active]; - PMHx: 15:46 ADD/ADHD; Anxiety; Bipolar disorder; Cellulitis; Chronic pain; CVA; Diabetes - IDDM; aj1 Hypertension; neuropathy; Seizures; - Immunization history:: Flu vaccine status is unknown. - Social history:: Smoking status: Patient uses tobacco products, denies chronic smoking, but will smoke occasionally. - Ebola Screening: : Patient denies travel to an Ebola-affected area in the 21 days before illness onset. Screenin:30 Abuse screen: Denies threats or abuse. Nutritional screening: No deficits noted. rb1 Tuberculosis screening: No symptoms or risk factors identified. Fall Risk None identified. Assessment: 16:30 General: Denies fever. Pain: Complains of pain in left leg and right leg Pain currently rb1 is 10 out of 10 on a pain scale. Neuro: Level of Consciousness is awake, alert, obeys commands, Oriented to person, place, time, situation. Cardiovascular: Capillary refill < 3 seconds is brisk in bilateral fingers. Respiratory: Airway is patent Respiratory effort is even, unlabored, Respiratory pattern is regular, symmetrical. GI: No signs and/or symptoms were reported involving the gastrointestinal system. : No signs and/or symptoms were reported regarding the genitourinary system. Derm: Skin is dusky, bilateral lower extremities. Musculoskeletal: Range of motion: intact in all extremities. 17:15 General: Appears comfortable, Pt. stated, "I'm not here to play no waiting game. Give rb1 me some pain medication within the next ten minutes or I'm walking." as soon as I entered the room. Provider notified. . Behavior is agitated. 17:21 Reassessment: When I tried to administer the pain medication that the provider ordered, rb1 the pt. refused it and stated, "I have stronger pain medication at home than that." I notified the provider, no new order received at this time. 17:27 Reassessment: Pt. stated, "I am not waiting around" and continued to refuse the pain rb1 medication. 18:05 Reassessment: When I went in to check on the pt. he was not in his room. Provider rb1 notified. 18:10 Reassessment: Pt. has not returned to his room and can not be found at this time. rb1 18:20 Reassessment: Pt. still cannot be located at this time. Provider notified. rb1 Vital Signs: 15:46 BP 144 / 103; Pulse 95; Resp 20; Temp 98.2; Pulse Ox 100% on R/A; Weight 90.72 kg (R); aj1 Height 6 ft. 0 in. (182.88 cm) (R); 16:45 BP 148 / 99; Pulse 96; Resp 19; Pulse Ox 100% on R/A; Pain 10/10; rb1 17:43 BP 151 / 100; Pulse 97; Resp 20; Pulse Ox 100% on R/A; rb1 18:34 rb1 15:46 Body Mass Index 27.12 (90.72 kg, 182.88 cm) aj1 18:34 Pt. eloped. rb1 ED Course: 15:21 Patient arrived in ED. rg4 15:22 Rajendra Adkins MD is Private Physician. rg4 15:45 Triage completed. aj1 15:46 Arm band placed on Patient placed in waiting room, Patient notified of wait time. aj1 16:26 Mik Ledbetter PA is PHCP. jr8 16:26 Bernardino Alejandro MD is Attending Physician. jr8 16:30 Gretchen Marie, RN is Primary Nurse. rb1 16:30 Patient has correct armband on for positive identification. Bed in low position. Call rb1 light in reach. Side rails up X 1. Pulse ox on. NIBP on. Warm blanket given. 17:56 XRAY Foot RIGHT 3 View In Process Unspecified. EDMS Administered Medications: 17:30 Not Given (Patient Refused): traMADol 50 mg PO once rb1 Outcome: 18:34 Patient left the ED. rb1 18:34 Eloped from patient exam room. rb1 18:34 Condition: stable Signatures: Dispatcher [employer] EDMS Senia Alvarenga, RN RN aj1 Mik Ledbetter PA PA jr8 Gretchen Marie, RN RN rb1 Brianna Hodge rg4
--- NOTE | 2018-10-01 18:34 | EDPHYS ---
Physician Documentation [facility] Name: Gasper Fry Age: 58 yrs Sex: Male : 1960 Arrival Date: 10/01/2018 Time: 15:21 Bed 14 Private MD: Rajendra Adkins ED Physician Bernardino Alejandro HPI: 10/01 18:24 This 58 yrs old Male presents to ER via Ambulatory with complaints of Foot jr8 Infection. 18:24 Patient came to ED today for continued wound on foot. Stated that he saw pain jr8 management doctor and sent him to ED for further evaluation of foot. Stated that he had been going to wound management for a while but was not pleased . Historical: - Allergies: 15:46 Haldol (Anaphylaxis); aj1 15:46 Narcan (Anaphylaxis); aj1 - Home Meds: 15:46 Adderall XR Oral [Active]; Cogentin Oral [Active]; Glucophage Oral [Active]; Klonopin aj1 Oral [Active]; Novolin 70/30 [place] Sub-Q [Active]; Risperdal Oral [Active]; Tramadol Oral [Active]; - PMHx: 15:46 ADD/ADHD; Anxiety; Bipolar disorder; Cellulitis; Chronic pain; CVA; Diabetes - IDDM; aj1 Hypertension; neuropathy; Seizures; - Immunization history:: Flu vaccine status is unknown. - Social history:: Smoking status: Patient uses tobacco products, denies chronic smoking, but will smoke occasionally. - Ebola Screening: : Patient denies travel to an Ebola-affected area in the 21 days before illness onset. ROS: 18:24 Eyes: Negative for injury, pain, redness, and discharge, ENT: Negative for injury, jr8 pain, and discharge, Neck: Negative for injury, pain, and swelling, Cardiovascular: Negative for chest pain, palpitations, and edema, Respiratory: Negative for shortness of breath, cough, wheezing, and pleuritic chest pain, Abdomen/GI: Negative for abdominal pain, nausea, vomiting, diarrhea, and constipation, Back: Negative for injury and pain, MS/Extremity: Negative for injury and deformity, Neuro: Negative for headache, weakness, numbness, tingling, and seizure. 18:24 Skin: Positive for open wound right foot. Exam: 18:24 Eyes: Pupils equal round and reactive to light, extra-ocular motions intact. Lids and jr8 lashes normal. Conjunctiva and sclera are non-icteric and not injected. Cornea within normal limits. Periorbital areas with no swelling, redness, or edema. ENT: Nares patent. No nasal discharge, no septal abnormalities noted. Tympanic membranes are normal and external auditory canals are clear. Oropharynx with no redness, swelling, or masses, exudates, or evidence of obstruction, uvula midline. Mucous membranes moist. Neck: Trachea midline, no thyromegaly or masses palpated, and no cervical lymphadenopathy. Supple, full range of motion without nuchal rigidity, or vertebral point tenderness. No Meningismus. Cardiovascular: Regular rate and rhythm with a normal S1 and S2. No gallops, murmurs, or rubs. Normal PMI, no JVD. No pulse deficits. Respiratory: Lungs have equal breath sounds bilaterally, clear to auscultation and percussion. No rales, rhonchi or wheezes noted. No increased work of breathing, no retractions or nasal flaring. Abdomen/GI: Soft, non-tender, with normal bowel sounds. No distension or tympany. No guarding or rebound. No evidence of tenderness throughout. Back: No spinal tenderness. No costovertebral tenderness. Full range of motion. MS/ Extremity: Pulses equal, no cyanosis. Neurovascular intact. Full, normal range of motion. Neuro: Awake and alert, GCS 15, oriented to person, place, time, and situation. Cranial nerves II-XII grossly intact. Motor strength 5/5 in all extremities. Sensory grossly intact. Cerebellar exam normal. Normal gait. 18:24 Skin: Patient has open wound to bottom of right foot. No discharge, erythema noted. Mild swelling to foot seen. Tissue pink in appearance. Non tender to touch . Vital Signs: 15:46 BP 144 / 103; Pulse 95; Resp 20; Temp 98.2; Pulse Ox 100% on R/A; Weight 90.72 kg (R); aj1 Height 6 ft. 0 in. (182.88 cm) (R); 16:45 BP 148 / 99; Pulse 96; Resp 19; Pulse Ox 100% on R/A; Pain 10/10; rb1 17:43 BP 151 / 100; Pulse 97; Resp 20; Pulse Ox 100% on R/A; rb1 18:34 rb1 15:46 Body Mass Index 27.12 (90.72 kg, 182.88 cm) aj1 18:34 Pt. eloped. rb1 MDM: 16:43 Patient medically screened. jr8 18:24 Data reviewed: vital signs, nurses notes, radiologic studies, plain films. Data jr8 interpreted: Pulse oximetry: on room air is 100 %. Interpretation: normal. ED course: Patient left before getting results of exam back. 10/01 16:50 Order name: XRAY Foot RIGHT 3 View; Complete Time: 18:23 jr8 Administered Medications: 17:30 Not Given (Patient Refused): traMADol 50 mg PO once rb1 Disposition: 10/01/18 18:33 Patient left the facility after being seen by provider. - Patient left due to unknown. - Condition is Stable. Addendum: 10/06/2018 10:29 Co-signature as Attending Physician, Bernardino Alejandro MD I agree with the assessment and k dr plan of care. Signatures: Dispatcher [employer] EDMS Senia Alvarenga RN RN aj1 Bernardino Alejandro MD MD [facility] Mik Ledbetter PA PA jr8 Gretchen Marie, RN RN rb1 Corrections: (The following items were deleted from the chart) 10/01 18:34 18:33 10/01/2018 18:33 Patient left the facility after being seen by provider. Reason rb1 stated they are leaving due to unknown. Condition is Stable. jr8
[2018-10-01 19:33] VITALS: BP 144/103; TEMP 98.2; O2SAT 100
== END 2018-10-01 18:34 | disposition left against medical advice (07) ==
LOC: ER 15:19
DX: S91.301A Unspecified open wound, right foot, initial encounter (principal); Z53.29 Procedure and treatment not carried out because of patient's decision for other reasons; F31.9 Bipolar disorder, unspecified; E11.9 Type 2 diabetes mellitus without complications; I10 Essential (primary) hypertension; F90.9 Attention-deficit hyperactivity disorder, unspecified type; Z79.4 Long term (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; Z88.5 Allergy status to narcotic agent; Z72.0 Tobacco use
CPT/HCPCS: 99283

== ENCOUNTER 2018-10-12 13:07 | Emergency (ER) | payer OTHER ==
--- NOTE | 2018-10-12 15:15 | EKG ---
Test Date: 2018-10-12 Test Time: 13:20:20 Surgical Tech: CHRISTOPHER MEASUREMENT RESULTS: Intervals: Rate: 89 [place]: 164 QRSD: 96 QT: 380 QTc: 462 [place]: P: 54 [place]: 164 QRS: -33 T: 56 INTERPRETIVE STATEMENTS: Normal sinus rhythm Left axis deviation Abnormal ECG Compared to ECG 07/22/2018 23:23:01 Prolonged QT interval no longer present Electronically Signed On 10-12-18 15:14:50 CDT by Dino Rios
--- NOTE | 2018-10-12 15:18 | ER ---
Nurse's Notes [facility] Name: Gasper Fry Age: 58 yrs Sex: Male : 1960 Arrival Date: 10/12/2018 Time: 13:14 Bed 28 Private MD: Diagnosis: Hyperglycemia, unspecified;Non-pressure chronic ulcer of other part of unspecified foot;Chronic pain syndrome Presentation: 10/12 13:35 Presenting complaint: Patient states: "I've been having some chest and leg pains for a ss while now and I just can't take the pain. I came to the ER last week for the same thing, but they didn't want to give me anything for the pain." Pt reports pain has been intermittent x months. Transition of care: patient was not received from another setting of care. Onset of symptoms is unknown. Risk Assessment: Do you want to hurt yourself or someone else? Patient reports no desire to harm self or others. Initial Sepsis Screen: Does the patient have a suspected source of infection? Yes: Skin breakdown/wound. Initial Sepsis Screen: Does the patient meet any 2 criteria? HR > 90 bpm. No. Patient's initial sepsis screen is negative. Care prior to arrival: None. 13:35 Method Of Arrival: Ambulatory ss 13:35 Acuity: DARREL 3 ss Triage Assessment: 15:25 General: Behavior is cooperative. mg2 Historical: - Allergies: 13:38 Haldol (Anaphylaxis); ss 13:38 Narcan (Anaphylaxis); ss - Home Meds: 15:37 Adderall XR Oral [Active]; Glucophage Oral [Active]; Cogentin Oral [Active]; Klonopin mg2 Oral [Active]; Novolin 70/30 [place] Sub-Q [Active]; Risperdal Oral [Active]; Tramadol Oral [Active]; - PMHx: 13:38 ADD/ADHD; Anxiety; Bipolar disorder; Cellulitis; Chronic pain; CVA; Diabetes - IDDM; ss Hypertension; neuropathy; Seizures; - Immunization history:: Adult Immunizations up to date. - Social history:: Smoking status: Patient uses tobacco products, smokes one-half pack cigarettes per day. - Ebola Screening: : Patient denies exposure to infectious person Patient denies travel to an Ebola-affected area in the 21 days before illness onset. Screenin:34 Abuse screen: Denies threats or abuse. Denies injuries from another. Nutritional mg2 screening: No deficits noted. Tuberculosis screening: No symptoms or risk factors identified. Fall Risk None identified. Assessment: 15:30 General: Appears in no apparent distress. comfortable. Pain: Complains of pain in mg2 dorsum of right foot Pain does not radiate. Pain currently is 6 out of 10 on a pain scale. Quality of pain is described as aching, Pain began gradually, Is intermittent. Neuro: Level of Consciousness is awake, alert, obeys commands, Oriented to person, place, time, situation. Cardiovascular: Capillary refill < 3 seconds Patient's skin is warm and dry. Respiratory: Airway is patent Respiratory effort is even, unlabored, Respiratory pattern is regular, symmetrical. GI: No signs and/or symptoms were reported involving the gastrointestinal system. : No signs and/or symptoms were reported regarding the genitourinary system. EENT: No signs and/or symptoms were reported regarding the EENT system. Musculoskeletal: Reports pain in dorsum of right foot since for a long time. 15:30 Derm: Skin diabetic foot. mg2 15:40 Reassessment: patient is on chronic pain and was requesting for ultram and antibiotic mg2 and get mad when was not prescribed with the above mentioned medications. discharged and refused to sign the discharge papers. provider made aware. Vital Signs: 13:38 BP 149 / 91; Pulse 91; Resp 16; Temp 98.6(TE); Pulse Ox 99% on R/A; Weight 88.45 kg; ss Height 6 ft. 0 in. (182.88 cm); Pain 9/10; 14:34 BP 172 / 93; Pulse 85; Resp 13; Temp 98.2; Pulse Ox 99% on R/A; mh5 15:38 BP 155 / 81; Pulse 90; Resp 18; Temp 98.6(O); Pulse Ox 100% on R/A; Pain 4/10; mg2 13:38 Body Mass Index 26.45 (88.45 kg, 182.88 cm) ED Course: 13:14 Patient arrived in ED. mr 13:26 EKG done, by nanotechnologist. reviewed by Lance Ponce MD. sm3 13:37 Triage completed. ss 13:38 Arm band placed on left wrist. 14:32 Mehul Ponce, RN is Primary Nurse. mg2 14:35 Gideon Horvath MD is Attending Physician. 15:34 No provider procedures requiring assistance completed. Patient did not have IV access mg2 during this emergency room visit. Patient maintains SpO2 saturation greater than 95% on room air. 15:34 Patient has correct armband on for positive identification. Pulse ox on. NIBP on. Door mg2 closed. Administered Medications: No medications were administered Point of Care Testing: Blood Glucose: 14:51 Blood Glucose: 375 mg/dL; mg2 Ranges: Outcome: 15:17 Discharge ordered by MD. gs 15:41 Discharged to home ambulatory, with family. mg2 15:41 Condition: stable 15:41 Discharge instructions given to patient, family, Instructed on discharge instructions, follow up and referral plans. Demonstrated understanding of instructions, follow-up care. 15:42 Patient left the ED. mg2 Signatures: Shyam Sienna HahnMaggi fernandes, MALU TORIBIO Lucina Parra 5 Gideon Horvath MD MD Mehul Ponce RN RN [facility] Laura Flores 3 Corrections: (The following items were deleted from the chart) 15:40 15:30 Derm: Skin is intact, is healthy with good turgor, Skin is pink, warm \\T\\ dry. mg2 normal, mg2
--- NOTE | 2018-10-12 15:18 | EDPHYS ---
Physician Documentation [facility] Name: Gasper Fry Age: 58 yrs Sex: Male : 1960 Arrival Date: 10/12/2018 Time: 13:14 Bed 28 Private MD: ED Physician Gideon Horvath HPI: 10/12 14:58 This 58 yrs old Male presents to ER via Ambulatory with complaints of Leg gs Pain, Chest Pain. 14:58 The complaints affect the dorsum of right foot. Onset: The symptoms/episode gs began/occurred 1 month(s) ago. Modifying factors: The symptoms are alleviated by nothing. the symptoms are aggravated by nothing. Associated signs and symptoms: Pertinent negatives calf tenderness, fever. Severity of symptoms: At their worst the symptoms were moderate, in the emergency department the symptoms are unchanged. The patient has experienced similar episodes in the past, chronically. Historical: - Allergies: 13:38 Haldol (Anaphylaxis); ss 13:38 Narcan (Anaphylaxis); ss - Home Meds: 15:37 Adderall XR Oral [Active]; Glucophage Oral [Active]; Cogentin Oral [Active]; Klonopin mg2 Oral [Active]; Novolin 70/30 [place] Sub-Q [Active]; Risperdal Oral [Active]; Tramadol Oral [Active]; - PMHx: 13:38 ADD/ADHD; Anxiety; Bipolar disorder; Cellulitis; Chronic pain; CVA; Diabetes - IDDM; ss Hypertension; neuropathy; Seizures; - Immunization history:: Adult Immunizations up to date. - Social history:: Smoking status: Patient uses tobacco products, smokes one-half pack cigarettes per day. - Ebola Screening: : Patient denies exposure to infectious person Patient denies travel to an Ebola-affected area in the 21 days before illness onset. ROS: 14:58 Cardiovascular: Positive for chest pain. gs 15:08 Cardiovascular: Positive for brief intermittent waxes and wanes, similar in past no gs pain now. 15:08 All other systems are negative. Exam: 15:08 Head/Face: Normocephalic, atraumatic. Eyes: Pupils equal round and reactive to light, gs extra-ocular motions intact. Lids and lashes normal. Conjunctiva and sclera are non-icteric and not injected. Cornea within normal limits. Periorbital areas with no swelling, redness, or edema. ENT: Nares patent. No nasal discharge, no septal abnormalities noted. Tympanic membranes are normal and external auditory canals are clear. Oropharynx with no redness, swelling, or masses, exudates, or evidence of obstruction, uvula midline. Mucous membranes moist. Neck: Trachea midline, no thyromegaly or masses palpated, and no cervical lymphadenopathy. Supple, full range of motion without nuchal rigidity, or vertebral point tenderness. No Meningismus. Chest/axilla: Normal chest wall appearance and motion. Nontender with no deformity. No lesions are appreciated. Cardiovascular: Regular rate and rhythm with a normal S1 and S2. No gallops, murmurs, or rubs. Normal PMI, no JVD. No pulse deficits. Respiratory: Lungs have equal breath sounds bilaterally, clear to auscultation and percussion. No rales, rhonchi or wheezes noted. No increased work of breathing, no retractions or nasal flaring. Abdomen/GI: Soft, non-tender, with normal bowel sounds. No distension or tympany. No guarding or rebound. No evidence of tenderness throughout. Back: No spinal tenderness. No costovertebral tenderness. Full range of motion. Skin: Warm, dry with normal turgor. Normal color with no rashes, no lesions, and no evidence of cellulitis. Neuro: Awake and alert, GCS 15, oriented to person, place, time, and situation. Cranial nerves II-XII grossly intact. Motor strength 5/5 in all extremities. Sensory grossly intact. Cerebellar exam normal. Normal gait. 15:08 Constitutional: The patient appears alert, awake. 15:08 Musculoskeletal/extremity: Perfusion: the patient is warm, Calf tenderness, is absent, chronic wound r foot stable no acute changes. 15:08 ECG was reviewed by the Attending Physician. Vital Signs: 13:38 BP 149 / 91; Pulse 91; Resp 16; Temp 98.6(TE); Pulse Ox 99% on R/A; Weight 88.45 kg; ss Height 6 ft. 0 in. (182.88 cm); Pain 9/10; 14:34 BP 172 / 93; Pulse 85; Resp 13; Temp 98.2; Pulse Ox 99% on R/A; mh5 15:38 BP 155 / 81; Pulse 90; Resp 18; Temp 98.6(O); Pulse Ox 100% on R/A; Pain 4/10; mg2 13:38 Body Mass Index 26.45 (88.45 kg, 182.88 cm) MDM: 14:47 Patient medically screened. 15:08 Data reviewed: vital signs, nurses notes. 10/12 14:54 Order name: Glucose, Ancillary Testing; Complete Time: 15:08 EDMS 10/12 13:26 Order name: EKG; Complete Time: 13:26 10/12 13:26 Order name: EKG - Nurse/Tech; Complete Time: 13:26 10/12 14:47 Order name: Fingerstick Glucose; Complete Time: 14:51 EC:08 Rate is 89 beats/min. Rhythm is regular. QRS interval is normal. QT interval is normal. gs T waves are Normal. No ST changes noted. Clinical impression: Abnormal EKG without significant change. Interpreted by me. Administered Medications: No medications were administered Point of Care Testing: Blood Glucose: 14:51 Blood Glucose: 375 mg/dL; mg2 Ranges: Critical Glucose Levels:Adult <50 mg/dl or >400 mg/dl <40 mg/dl or >180 mg/dl Disposition: 10/12/18 15:17 Discharged to Home. Impression: Hyperglycemia, unspecified, Non-pressure chronic ulcer of other part of unspecified foot, Chronic pain syndrome. - Condition is Stable. - Discharge Instructions: Hyperglycemia. - Medication Reconciliation Form, Thank You Letter, Antibiotic Education, Prescription Opioid Use form. - Follow up: Private Physician; When: 1 - 2 days; Reason: Re-evaluation by your physician. Signatures: Maggi Edmond RN RN iGdeon Horvath MD MD Mehul Ponce RN RN mg2 Corrections: (The following items were deleted from the chart) 15:39 15:17 10/12/2018 15:17 Discharged to Home. Impression: Hyperglycemia, unspecified; gs Non-pressure chronic ulcer of other part of unspecified foot. Condition is Stable. Forms are Medication Reconciliation Form, Thank You Letter, Antibiotic Education, Prescription Opioid Use. Follow up: Private Physician; When: 1 - 2 days; Reason: Re-evaluation by your physician. 15:42 15:39 10/12/2018 15:17 Discharged to Home. Impression: Hyperglycemia, unspecified; mg2 Non-pressure chronic ulcer of other part of unspecified foot; Chronic pain syndrome. Condition is Stable. Discharge Instructions: Hyperglycemia. Forms are Medication Reconciliation Form, Thank You Letter, Antibiotic Education, Prescription Opioid Use. Follow up: Private Physician; When: 1 - 2 days; Reason: Re-evaluation by your physician. gs
[2018-10-12 15:56] VITALS: BP 155/81; TEMP 98.6; O2SAT 100
== END 2018-10-12 15:42 | disposition home or self-care (01) ==
LOC: ER 13:07
DX: L97.519 Non-pressure chronic ulcer of other part of right foot with unspecified severity (principal); E11.65 Type 2 diabetes mellitus with hyperglycemia; G89.4 Chronic pain syndrome; F90.9 Attention-deficit hyperactivity disorder, unspecified type; F41.9 Anxiety disorder, unspecified; F31.9 Bipolar disorder, unspecified; E11.9 Type 2 diabetes mellitus without complications; I10 Essential (primary) hypertension; Z79.4 Long term (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
CPT/HCPCS: 82962; 93005; 99284

== ENCOUNTER 2018-12-07 09:55 | Emergency (ER) | payer OTHER ==
--- NOTE | 2018-12-07 10:42 | ER ---
Nurse's Notes [facility] Name: Gasper Fry Age: 58 yrs Sex: Male : 1960 Arrival Date: 12/07/2018 Time: 09:57 Bed Waiting Private MD: Diagnosis: Presentation: 12/07 10:02 Presenting complaint: Patient states: i feel weak since this morning, i woke up that hj way, i nauseated and about to passed out; reports leg pain;. Transition of care: patient was not received from another setting of care. Onset of symptoms was December 07, 2018. Risk Assessment: Do you want to hurt yourself or someone else? Patient reports no desire to harm self or others. Initial Sepsis Screen: Does the patient meet any 2 criteria? No. Patient's initial sepsis screen is negative. Does the patient have a suspected source of infection? No. Patient's initial sepsis screen is negative. Care prior to arrival: None. 10:02 Method Of Arrival: Wheelchair 10:02 Acuity: DARREL 3 hj 10:39 Note pt doesn't want ot be checked out, awaiting for mom to pick him up, pt insisted he hj wanted to go to [facility], is on life support and wanted to see her;. 10:40 Note called but pt is not on the lobby in a wheelchair; mom could have picked up pt;. hj Historical: - Allergies: 10:05 Haldol (Anaphylaxis); hj 10:05 Narcan (Anaphylaxis); hj - PMHx: 10:05 ADD/ADHD; Anxiety; Bipolar disorder; Cellulitis; Chronic pain; CVA; Diabetes - IDDM; hj Hypertension; neuropathy; Seizures; - PSHx: 10:05 Unable to obtain; hj Vital Signs: 10:06 BP 140 / 78; Pulse 89; Resp 18; Temp 98.1(O); Pulse Ox 100% on R/A; Weight 95.25 kg; hj Height 5 ft. 11 in. (180.34 cm); 10:06 Body Mass Index 29.29 (95.25 kg, 180.34 cm) ED Course: 09:57 Patient arrived in ED. mr 10:04 Triage completed. hj 10:04 Arm band placed on left wrist. hj Administered Medications: No medications were administered Point of Care Testing: Blood Glucose: 10:16 Blood Glucose: 427 mg/dL; hj Ranges: Outcome: 10:41 Patient left the ED. shannon Signatures: Sienna Howe Henry RN RN shannon
[2018-12-09 16:57] VITALS: BP 140/78; TEMP 98.1; O2SAT 100
== END 2018-12-07 10:41 | disposition left against medical advice (07) ==
LOC: ER 09:55
DX: Z53.21 Procedure and treatment not carried out due to patient leaving prior to being seen by health care provider (principal)
CPT/HCPCS: 82962; 99281

== ENCOUNTER 2018-12-11 15:56 | Inpatient (IN) | payer OTHER ==
[2018-12-11] MEDS ORDERED: CIPROFLOXACIN 400mg IV 0 MG/0 ML BAG IV ONE (16:41)
[2018-12-11 16:53] LABS: Absolute Lymphocytes (CBC) 1.1 K/uL (0.7-4.9); Basophils % 0.5 % (0-1.3); Eosinophils % 0.7 % (0-4.4); Hematocrit 36.5 % (39.6-49.0); Lymphocytes % 7.8 % (15.3-44.8); MPV 8.6 fL (7.6-11.3); Monocytes % 9.1 % (3.3-12.3)
[2018-12-11] MEDS ORDERED: NA CHLORIDE 0.9% 1,000 ML ONE (16:54)
[2018-12-11 16:59] LABS: Protime INR 1.27
--- NOTE | 2018-12-11 17:05 | RAD REPORT ---
EXAM DESCRIPTION: RAD - Foot Left 3 View - 12/11/2018 4:51 pm CLINICAL HISTORY: Left foot cellulitis, soft tissue swelling, fever and pain COMPARISON: Left foot October 08, 2015 FINDINGS: No fracture, dislocation or periosteal reaction. No acute or destructive bony process. Ri ght first toe is surgically absent. Hypertrophy of the first metatarsal sesamoid bones noted similar to comparison. No air or foreign body in the soft tissues. Arterial tree calcifications are present. IMPRESSION: No acute or destructive left foot finding. No suspicious change from 2016 comparison.
[2018-12-11 17:16] LABS: Albumin 2.9 g/dL (3.4-5.0); Bilirubin Direct 0.3 mg/dL (0-0.2); Bilirubin Total 0.6 mg/dL (0.2-1.0); Protein, Total 8.3 g/dL (6.4-8.2)
[2018-12-11 17:21] LABS: Potassium 2.9 mmol/L (3.5-5.1)
--- NOTE | 2018-12-11 17:37 | EDPHYS ---
Physician Documentation [facility] Name: Gasper Fry Age: 58 yrs Sex: Male : 1960 Arrival Date: 12/11/2018 Time: 15:58 Bed 20 Private MD: OLEG Physician Lance Ponce HPI: 12/11 16:24 This 58 yrs old Male presents to ER via Wheelchair with complaints of Left Leg pm1 Pain. 16:24 The patient presents with pain, Infection. The complaints affect the dorsum of left pm1 foot. Context: resulted from worsening of left foot wound. Onset: The symptoms/episode began/occurred 4 day(s) ago. Modifying factors: The symptoms are alleviated by elevating leg, the symptoms are aggravated by nothing. Associated signs and symptoms: Pertinent positives: fever, swelling. Treatment prior to arrival includes: no previous treatment. Severity of symptoms: in the emergency department the symptoms are actually worse. The patient has experienced similar episodes in the past, several times, to both lower extremities. The patient has not recently seen a physician. Historical: - Allergies: 16:07 Haldol (Anaphylaxis); hb 16:07 Narcan (Anaphylaxis); hb - Home Meds: 16:07 Adderall XR Oral [Active]; Cogentin Oral [Active]; Glucophage Oral [Active]; Klonopin hb Oral [Active]; Novolin 70/30 [place] Sub-Q [Active]; Risperdal Oral [Active]; Tramadol Oral [Active]; - PMHx: 16:07 ADD/ADHD; Anxiety; Bipolar disorder; Cellulitis; Chronic pain; CVA; Diabetes - IDDM; hb Hypertension; neuropathy; Seizures; - PSHx: 16:07 Knee - Right; neck; back; Left great toe - amputation; Eye - Right; hb - Immunization history:: Adult Immunizations up to date. - Social history:: Smoking status: Patient uses tobacco products, smokes one-half pack cigarettes per day. - Ebola Screening: : No symptoms or risks identified at this time. ROS: 16:24 Constitutional: Negative for fever, chills, and weight loss, Eyes: Negative for injury, pm1 pain, redness, and discharge, ENT: Negative for injury, pain, and discharge, Neck: Negative for injury, pain, and swelling, Cardiovascular: Negative for chest pain, palpitations, and edema, Respiratory: Negative for shortness of breath, cough, wheezing, and pleuritic chest pain, Abdomen/GI: Negative for abdominal pain, nausea, vomiting, diarrhea, and constipation, Back: Negative for injury and pain, : Negative for injury, bleeding, discharge, and swelling. 16:24 Neuro: Negative for headache, weakness, numbness, tingling, and seizure. 16:24 MS/extremity: Positive for pain, swelling, of the left lower leg and left foot, Negative for decreased range of motion, deformity. 16:24 Skin: Positive for cellulitis, of the dorsum of left foot and left kaiser. Exam: 16:24 Constitutional: This is a well developed, well nourished patient who is awake, alert, pm1 and in no acute distress. Head/Face: Normocephalic, atraumatic. Neck: Trachea midline, no thyromegaly or masses palpated, and no cervical lymphadenopathy. Supple, full range of motion without nuchal rigidity, or vertebral point tenderness. No Meningismus. Chest/axilla: Normal chest wall appearance and motion. Nontender with no deformity. No lesions are appreciated. Cardiovascular: Regular rate and rhythm with a normal S1 and S2. No gallops, murmurs, or rubs. Normal PMI, no JVD. No pulse deficits. Respiratory: Lungs have equal breath sounds bilaterally, clear to auscultation and percussion. No rales, rhonchi or wheezes noted. No increased work of breathing, no retractions or nasal flaring. Abdomen/GI: Soft, non-tender, with normal bowel sounds. No distension or tympany. No guarding or rebound. No evidence of tenderness throughout. Back: No spinal tenderness. No costovertebral tenderness. Full range of motion. 16:24 MS/ Extremity: Pulses equal, no cyanosis. Neurovascular intact. Full, normal range of motion. 16:24 Skin: cellulitis, Ulceration present lateral aspect of dorsum of left foot with surrounding cellulitis to distal portion of left kaiser. 16:24 Neuro: Orientation: is normal, Motor: is normal, moves all fours. Vital Signs: 16:04 BP 125 / 63; Pulse 104; Resp 16; Temp 99; Pulse Ox 96% on R/A; Weight 90.72 kg; Height hb 6 ft. (182.88 cm); Pain 10/10; 16:49 BP 147 / 76; Pulse 99; Resp 18; Pulse Ox 96% on R/A; Pain 10/10; em 18:13 BP 154 / 80; Pulse 100; Resp 18; Pulse Ox 100% on R/A; em 16:04 Body Mass Index 27.12 (90.72 kg, 182.88 cm) hb MDM: 16:12 Patient medically screened. pm1 17:33 Data reviewed: vital signs. Data interpreted: Pulse oximetry: on room air is 96 %. pm1 Interpretation: normal. Counseling: I had a detailed discussion with the patient and/or guardian regarding: the historical points, exam findings, and any diagnostic results supporting the discharge/admit diagnosis, lab results, radiology results, the need for further work-up and treatment in the hospital. 17:34 Physician consultation: Polo Ignacio DO was contacted at 17:34, regarding admission, pm1 patient's condition, would like medications started, vancomycin and cefepime, in the emergency department to see patient at 17:34. 17:40 Physician consultation: Polo Ignacio DO would like further tests performed, venous pm1 dopplers, LLE. 17:56 Physician consultation: Polo Ignacio DO will be putting surgical consult with Dr. dee Balbuena. Let Dr. Balbuena evaluate foot and address foreign body in left foot. 18:15 Physician consultation: Sanya Balbuena MD Requested discussion with Dr Mcfadden regarding his pm1 patient's condition. Dr. Mcfadden is out of town until Friday Evening and will be in wound care clinic on Friday. Would like Dr. Balbuena to address patient's condition and agrees with patient admission. 18:35 Physician consultation: Sanya Balbuena MD Requested Dakins solution infused gauze dressing pm1 to foot and then wrapped with lori wrap. Dakins solution unavailable in ER so requested Betadine in place of Dakins solution. 19:18 Physician consultation: Justin Valente MD patient positive for DVT. Initiation of pm1 Lovenox is fine in ER. 19:57 ED course: Updated Dr. Balbuena on presence of DVT left leg and coverage with lovenox. pm1 12/11 16:22 Order name: Basic Metabolic Panel; Complete Time: 17:23 pm1 12/11 16:22 Order name: Blood Culture Adult (2) pm1 12/11 16:22 Order name: CBC with Diff; Complete Time: 17:37 pm1 12/11 16:22 Order name: Lactate; Complete Time: 17:09 pm12/11 16:22 Order name: LFT's; Complete Time: 17:23 pm1 12/11 16:22 Order name: Procalcitonin; Complete Time: 17:21 pm12/11 16:22 Order name: Protime (+inr); Complete Time: 17:26 pm1 12/11 16:22 Order name: Ptt, Activated; Complete Time: 17:26 pm12/11 16:27 Order name: Foot Left 3 View XRAY; Complete Time: 17:09 pm12/11 17:40 Order name: Extremity Venous Uni Ltd US pm12/11 19:59 Order name: US; Complete Time: 20:08 EDMS 12/11 16:22 Order name: Accucheck; Complete Time: 16:52 pm1 12/11 16:22 Order name: Labs collected and sent; Complete Time: 16:42 pm1 Administered Medications: 16:30 Drug: NS 0.9% 1000 ml Route: IV; Rate: 1000 ml; Site: right antecubital; em 17:57 Follow up: IV Status: Completed infusion; IV Intake: 1000ml em 17:57 Drug: Cefepime 1 grams Route: IVPB; Rate: 200 ml/hr; Infused Over: 30 mins; Site: right em antecubital; 18:57 Follow up: Response: No adverse reaction; IV Status: Completed infusion; IV Intake: em 100ml 18:11 Drug: Potassium Chloride 20 mEq Route: IV; Rate: calculated rate; Site: left em antecubital; 19:58 Follow up: IV Status: Infusion continued upon admission ak1 18:50 Drug: Potassium Effervescent Tablet 50 mEq Route: PO; em 18:57 Follow up: Response: No adverse reaction em 18:55 Drug: vancoMYCIN 1 grams Route: IVPB; Infused Over: 2 hrs; Site: right antecubital; em 19:59 Follow up: IV Status: Infusion continued upon admission ak1 19:32 Drug: [place] 10 mg-325 mg 1 tabs Route: PO; ak1 19:32 Follow up: Response: No adverse reaction ak1 19:32 Drug: Lovenox 1 mg/kg Route: Sub-Q; Site: left lower abdomen; ak1 19:33 Follow up: Response: No adverse reaction ak1 Disposition: 12/11/18 17:36 Hospitalization ordered by Polo Ignacio for Inpatient Admission. Preliminary diagnosis are Cellulitis of left lower limb, Superficial foreign body, left foot - ball of left foot. - Bed requested for Telemetry/MedSurg (Inpatient). - Status is Inpatient Admission. ak1 - Condition is Stable. - Problem is new. - Symptoms have improved. UTI on Admission? No Addendum: 12/16/2018 16:40 Co-signature as Attending Physician, Lance Ponce MD I agree with the assessment and c hickey plan of care. Signatures: Dispatcher [employer] EDLance Cummins MD MD cha Munoz, Edgar, SURVEYOR INSTRUMENT ASSISTANT SURVEYOR INSTRUMENT ASSISTANT em Emily Mosley RN RN ak1 Laura Hodge RN RN Clif Arndt, ASSISTANT DISTRIBUTION MANAGER ASSISTANT DISTRIBUTION MANAGER pm1 Jolnee Reyna RN RN Corrections: (The following items were deleted from the chart) 12/11 19:37 17:36 Hospitalization Ordered by Polo Ignacio DO for Inpatient Admission. Preliminary cg diagnosis is Cellulitis of left lower limb; Superficial foreign body, left foot - ball of left foot. Bed requested for Telemetry/MedSurg (Inpatient). Status is Inpatient Admission. Condition is Stable. Problem is new. Symptoms have improved. UTI on Admission? No. pm1 20:24 19:37 12/11/2018 17:36 Hospitalization Ordered by Polo Ignacio DO for Inpatient ak1 Admission. Preliminary diagnosis is Cellulitis of left lower limb; Superficial foreign body, left foot - ball of left foot. Bed requested for Telemetry/MedSurg (Inpatient). Status is Inpatient Admission. Condition is Stable. Problem is new. Symptoms have improved. UTI on Admission? No. cg
--- NOTE | 2018-12-11 17:37 | ER ---
Nurse's Notes [facility] Name: Gasper Fry Age: 58 yrs Sex: Male : 1960 Arrival Date: 12/11/2018 Time: 15:58 Bed 20 Private MD: Diagnosis: Cellulitis of left lower limb;Superficial foreign body, left foot-ball of left foot Presentation: 12/11 16:03 Presenting complaint: N/V x 5 days, fever and bilateral lower leg pain x 2 days. Pain hb is worse on left. TMAX 100.1. Transition of care: patient was not received from another setting of care. Onset of symptoms was December 07, 2018. Risk Assessment: Do you want to hurt yourself or someone else? Patient reports no desire to harm self or others. Care prior to arrival: None. 16:03 Method Of Arrival: Wheelchair hb 16:03 Acuity: DARREL 3 hb 16:20 Initial Sepsis Screen: Does the patient meet any 2 criteria? HR > 90 bpm. No. Patient's em initial sepsis screen is negative. Does the patient have a suspected source of infection? Yes: Skin breakdown/wound. Historical: - Allergies: 16:07 Haldol (Anaphylaxis); hb 16:07 Narcan (Anaphylaxis); hb - Home Meds: 16:07 Adderall XR Oral [Active]; Cogentin Oral [Active]; Glucophage Oral [Active]; Klonopin hb Oral [Active]; Novolin 70/30 [place] Sub-Q [Active]; Risperdal Oral [Active]; Tramadol Oral [Active]; - PMHx: 16:07 ADD/ADHD; Anxiety; Bipolar disorder; Cellulitis; Chronic pain; CVA; Diabetes - IDDM; hb Hypertension; neuropathy; Seizures; - PSHx: 16:07 Knee - Right; neck; back; Left great toe - amputation; Eye - Right; hb - Immunization history:: Adult Immunizations up to date. - Social history:: Smoking status: Patient uses tobacco products, smokes one-half pack cigarettes per day. - Ebola Screening: : No symptoms or risks identified at this time. Screenin:20 Abuse screen: Denies threats or abuse. Nutritional screening: No deficits noted. em Tuberculosis screening: No symptoms or risk factors identified. Fall Risk None identified. Assessment: 16:20 General: Appears in no apparent distress. comfortable, Behavior is calm, cooperative, em Reports fever for 1-2 days. Pain: Complains of pain in left foot Pain currently is 10 out of 10 on a pain scale. Neuro: Level of Consciousness is awake, alert, obeys commands, Oriented to person, place, time, situation. Cardiovascular: Capillary refill < 3 seconds Patient's skin is warm and dry. Respiratory: Airway is patent Respiratory effort is even, unlabored, Respiratory pattern is regular, symmetrical. GI: Reports nausea. Derm: Skin is intact, is healthy with good turgor, Skin is pink, warm \T\ dry. Wound noted ball of right foot and ball of left foot. Musculoskeletal: Amputation of left first toe. Capillary refill is > 3 seconds, is sluggish, in bilateral toes. Swelling present in left kaiser, anterior aspect of left ankle and dorsum of left foot Reports pain in left kaiser. 16:45 Reassessment: Patient appears in no apparent distress at this time. I agree with above iw assessment by Oren Lomax LVN. 17:07 Reassessment: Patient appears in no apparent distress at this time. Patient and/or em family updated on plan of care and expected duration. Pain level reassessed. Patient is alert, oriented x 3, equal unlabored respirations, skin warm/dry/pink. 18:07 Reassessment: Patient appears in no apparent distress at this time. Patient and/or em family updated on plan of care and expected duration. Pain level reassessed. Patient is alert, oriented x 3, equal unlabored respirations, skin warm/dry/pink. Dr. Balbuena at bedside. 19:15 General: Appears in no apparent distress. comfortable, Behavior is calm, cooperative. ak1 Pain: Complains of pain in left leg and right foot. Neuro: Level of Consciousness is awake, alert, obeys commands, Oriented to person, place, time, situation. Cardiovascular: No deficits noted. Respiratory: No deficits noted. Respiratory: No deficits noted. GI: No signs and/or symptoms were reported involving the gastrointestinal system. : No signs and/or symptoms were reported regarding the genitourinary system. EENT: No signs and/or symptoms were reported regarding the EENT system. Musculoskeletal: Amputation of left first toe. Vital Signs: 16:04 BP 125 / 63; Pulse 104; Resp 16; Temp 99; Pulse Ox 96% on R/A; Weight 90.72 kg; Height hb 6 ft. (182.88 cm); Pain 10/10; 16:49 BP 147 / 76; Pulse 99; Resp 18; Pulse Ox 96% on R/A; Pain 10/10; em 18:13 BP 154 / 80; Pulse 100; Resp 18; Pulse Ox 100% on R/A; em 16:04 Body Mass Index 27.12 (90.72 kg, 182.88 cm) hb ED Course: 15:58 Patient arrived in ED. mr 16:04 Triage completed. hb 16:04 Arm band placed on left wrist. hb 16:10 Clif Arndt, KARIN is PHCP. pm1 16:10 Lance Ponce MD is Attending Physician. pm1 16:20 Oren Lomax LVN is Primary Nurse. em 16:20 Patient has correct armband on for positive identification. Bed in low position. Call em light in reach. Side rails up X2. Adult w/ patient. Pulse ox on. NIBP on. 16:30 Inserted saline lock: 20 gauge in right antecubital area, using aseptic technique. em Blood collected. 16:30 Initial lab(s) drawn, by me, sent to lab. First set of blood cultures drawn by me. em 16:53 Foot Left 3 View XRAY In Process Unspecified. EDMS 17:35 Polo Ignacio DO is Hospitalizing Provider. pm1 18:56 Ultrasound completed. Patient tolerated well. sg3 19:00 Wound care: to diabetic ulcer located on left foot was soaked in Betadine solution, em dressed with 4X4s, Kerlix, lori wrap x 1. 19:48 No provider procedures requiring assistance completed. Patient admitted, IV remains in ak1 place. Administered Medications: 16:30 Drug: NS 0.9% 1000 ml Route: IV; Rate: 1000 ml; Site: right antecubital; em 17:57 Follow up: IV Status: Completed infusion; IV Intake: 1000ml em 17:57 Drug: Cefepime 1 grams Route: IVPB; Rate: 200 ml/hr; Infused Over: 30 mins; Site: right em antecubital; 18:57 Follow up: Response: No adverse reaction; IV Status: Completed infusion; IV Intake: em 100ml 18:11 Drug: Potassium Chloride 20 mEq Route: IV; Rate: calculated rate; Site: left em antecubital; 19:58 Follow up: IV Status: Infusion continued upon admission ak1 18:50 Drug: Potassium Effervescent Tablet 50 mEq Route: PO; em 18:57 Follow up: Response: No adverse reaction em 18:55 Drug: vancoMYCIN 1 grams Route: IVPB; Infused Over: 2 hrs; Site: right antecubital; em 19:59 Follow up: IV Status: Infusion continued upon admission ak1 19:32 Drug: Matlock 10 mg-325 mg 1 tabs Route: PO; ak1 19:32 Follow up: Response: No adverse reaction ak1 19:32 Drug: Lovenox 1 mg/kg Route: Sub-Q; Site: left lower abdomen; ak1 19:33 Follow up: Response: No adverse reaction ak1 Intake: 17:57 IV: 1000ml; Total: 1000ml. em 18:57 IV: 100ml; Total: 1100ml. em Outcome: 17:36 Decision to Hospitalize by Provider. pm1 19:57 Admitted to Med/surg accompanied by tech, via stretcher, room 413, with chart, Report ak1 called to shelley TORIBIO for 413 19:57 Condition: good 19:57 Instructed on the need for admit. 20:24 Patient left the ED. ak1 Signatures: Dispatcher [employer] Sienna Douglas mr Lomax, Oren, TELETYPE MECHANIC TELETYPE MECHANIC em Ju Anton RN RN Emily Mosley RN RN ak1 Clif Arndt, EMPLOYMENT LAW ATTORNEY EMPLOYMENT LAW ATTORNEY pm1 Jolene Reyna RN RN Meg Goncalves 3
[2018-12-11] MEDS: VANCOMYCIN 1.75 GM in NA CHLORIDE 0.9% 500 ML IVPB SCH (18:00)
--- NOTE | 2018-12-11 18:02 | P.HP ---
Certification for Inpatient Patient admitted to: Inpatient With expected LOS: >2 Midnights Patient will require the following post-hospital care: None Practitioner: I am a practitioner with admitting privileges, knowledge of patient current condition, hospital course, and medical plan of care. Services: Services provided to patient in accordance with Admission requirements found in Title 42 Section 412.3 of the Code of Federal Regulations Patient History Date of Service: 12/11/18 Primary Care Provider: Dr. Prajapati Reason for admission: Left foot swelling and pain History of Present Illness: 58-year-old male presented to the emergency room with increasing swelling, pain and erythema to the left lower extremity primarily the foot. Patient with underlying diabetes, insulin-dependent, tobacco abuse, bipolar disorder. Patient has noted increasing pain, swelling and erythema to the left foot. There is a chronic wound to the lateral portion of the foot anteriorly. Patient had a prior amputation of the left great toe in the past. It appeared to be getting worse with edema to the left lower extremity above the ankle region. He came to the ER for further evaluation. In the ER patient evaluated. White count elevated at 13.6. Lactic acid normal. Pro calcitonin was elevated. Sodium 133, potassium 2.9, BUN of 22, creatinine 1.85. GFR of 38. Glucose 118. Left foot does not show any evidence of osteo. There is a questionable needle foreign body to the bottom of the foot. Patient was started on antibiotic therapy. Patient admitted for further evaluation and treatment. I saw the patient in ER, patient appeared stable. Pain under control. Allergies haloperidol [From Haldol] Allergy (Verified 05/12/18 02:07) Anaphylaxis naloxone [From Narcan] Allergy (Verified 05/12/18 02:07) Unknown Home medications list reviewed: Yes Home Medications: Benztropine Mesylate [Cogentin] 0.5 mg PO BID 02/19/17 Insulin 70/30 NPH/Reg Human [Novolin 70/30*] 15 unit SQ BID 02/19/17 Risperidone 4 mg PO BEDTIME 02/19/17 clonazePAM [Klonopin*] 1 mg PO TID 02/19/17 Divalproex Sodium [Depakote ER] 500 mg PO BEDTIME 05/12/18 Duloxetine HCl [Cymbalta] 60 mg PO DAILY 05/12/18 Losartan Potassium [Cozaar] 100 mg PO DAILY 05/12/18 Medihoney [Medihoney Woundcare Gel] 44 appl TOP DAILY #1 tube 07/23/18 - Past Medical/Surgical History Diabetic: Yes -: Diabetes mellitus type 2, insulin-dependent -: Hypertension -: Seizure disorder -: Peripheral vascular disease -: History of osteomyelitis -: Hyperlipidemia -: Bipolar disorder -: Tobacco abuse -: Neck and back surgery -: Right eye removal -: Right knee surgery -: Bilateral wrist surgery due to suicide attempt -: Left great toe amputation Psychosocial/ Personal History: Patient is . He has 2 children. He lives at home. - Family History Brother -: Hypertension Sister -: Diabetes Father -: Heart disease Notes: heart attack Mother -: Diabetes - Social History Smoking Status: Heavy Tobacco smoker (>10 cigarettes/day) Counseled patient to stop smoking for: less than 10 minutes Smoking therapy provided: Yes Patient receptive to therapy: No Alcohol use: No CD- Drugs: No Caffeine use: Yes Place of Residence: Home Review of Systems General: As per HPI Eyes: Unremarkable ENT: Unremarkable Respiratory: Unremarkable Cardiovascular: Unremarkable Gastrointestinal: Unremarkable Musculoskeletal: Pedal edema, As per HPI Integumentary: As per HPI Neurological: Unremarkable Lymphatics: Unremarkable Physical Examination - Physical Exam General: Alert, In no apparent distress, Oriented x3, Cooperative HEENT: Atraumatic, Normocephalic, Mucous membr. moist/pink Neck: Supple, No Thyromegaly Respiratory: Clear to auscultation bilaterally, Normal air movement Cardiovascular: Normal pulses, Regular rate/rhythm Gastrointestinal: Normal bowel sounds, Soft and benign, Non-distended, No tenderness, No masses, No rebound, No guarding Musculoskeletal: Other (Warmth, erythema, swelling to the lower extremity below the knee. Foot has noticeable erythema. There is a chronic wound to the left lateral portion anteriorly of the foot. Prior left great toe amputation noted. No exudate noted to the area. The area of irritation to the anterior lateral portion of the foot has some odor.) Neurological: Normal speech, Normal strength at 5/5 x4 extr, Normal tone, Normal affect - Studies Laboratory Data (last 24 hrs) 12/11/18 16:30: PT 14.9 H, INR 1.27, APTT 28.3 12/11/18 16:30: WBC 13.6 H, Hgb 12.5 L, Hct 36.5 L, Plt Count 399 12/11/18 16:30: Sodium 133 L, Potassium 2.9 L*, BUN 22 H, Creatinine 1.85 H, Glucose 118 H, Total Bilirubin 0.6, AST 54 H, ALT 27, Alkaline Phosphatase 597 H Assessment and Plan - Plan Impression: Left lower extremity cellulitis with chronic diabetic ulcer Diabetes mellitus type 2, insulin-dependent Suspect PVD Hypokalemia Acute on Chronic renal disease, stage III Bipolar disorder Tobacco abuse History of seizure disorder Plan: Left lower extremity cellulitis with chronic diabetic ulcer: Patient will be admitted for further evaluation and treatment. Will start IV vancomycin and cefepime. Patient may have a foreign body-needle to the bottom of the foot. Will consult surgery to evaluate. Patient may require surgical debridement. Pharmacy to monitor and adjust medication. Will check venous and arterial doppler to evaluate further. Patient likely has underlying PVD. Will provide medication for pain provide DVT prophylaxis-Lovenox. Will continue to reassess. Await further recommendations from surgery. Diabetes mellitus type 2, insulin-dependent: Will start insulin sliding scale. Will also start basal insulin. Suspect PVD: Will have arterial Doppler done to evaluate further. Hypokalemia: Will monitor and replace appropriately. Acute on Chronic renal disease: Patient likely with chronic renal disease, stage IV. Will monitor closely. Will start low-dose IV fluids. Will consult Nephrology to further evaluate. Bipolar disorder: Will need to obtain and restart home medication. Tobacco abuse: Will provide nicotine patch. History of seizure disorder: Will need to review and restart home medication. Discharge Plan: Home Plan to discharge in: Greater than 2 days - Advance Directives Does patient have a Living Will: Yes Does patient have a Durable POA for Healthcare: No - Code Status/Comfort Care Code Status Assessed: Yes (Patient is full code) Time Spent Managing Pts Care (In Minutes): 55
[2018-12-11] MEDS ORDERED: CEFEPIME 1 GM/100 ML BAG IV ONE (18:05)
[2018-12-11] MEDS ORDERED: KCL 20 MEQ/100 mL IVPB 20 MEQ/100 ML BAG IV ONE (18:05)
[2018-12-11] MEDS ORDERED: POTASSIUM 25 MEQ EFFERV TAB ONE (18:52)
--- NOTE | 2018-12-11 19:24 | RAD REPORT ---
EXAM DESCRIPTION: US - Extremity Venous Uni Ltd - 12/11/2018 7:05 pm CLINICAL HISTORY: Left leg pain and swelling COMPARISON: None. TECHNIQUE: Real-time sonographic evaluation of the left lower extremity deep venous system was perfo rmed. FINDINGS: Normal compressibility, flow augmentation, phasic flow and spontaneous flow are identified in the left lower extremity common femoral vein. Thrombus is present with absent compression in the femoral vein and popliteal vein. . No mass or abnormal fluid collection in the soft tissues. IMPRESSION: Acute deep venous thrombosis left lower extremity involving the femoral and popliteal ve ins.
[2018-12-11] MEDS ORDERED: HYDROCODONE/APAP 10/325 TAB ONE (19:44)
[2018-12-11] MEDS ORDERED: ENOXAPARIN 100 MG/ML SYR SQ ONE (19:45)
[2018-12-11] MEDS ORDERED: ACETAMINOPHEN 500 MG TAB PO PRN (20:34)
[2018-12-11] MEDS ORDERED: TRAMADOL HCL 50 MG TAB PO PRN (20:34)
[2018-12-11] MEDS ORDERED: HYDRALAZINE HCL 20 MG/ML VIAL IV PRN (20:34)
[2018-12-11] MEDS ORDERED: GLUCAGON 1 MG/VIAL IM PRN (20:34)
[2018-12-11] MEDS ORDERED: D50W 25 GM/50 ML SYRINGE IV PRN (20:34)
[2018-12-11] MEDS ORDERED: ONDANSETRON 4 MG/2 ML VIAL IV PRN (20:34)
[2018-12-11] MEDS: INSULIN -REGULAR HUMAN 50 UNIT/0.5 ML ML SQ SCH (21:00)
[2018-12-11 21:16] VITALS: BMI 26.8
[2018-12-11] MEDS: NA CHLORIDE 0.9% 1,000 ML IV SCH (21:19)
[2018-12-11] MEDS: INSULIN GLARGINE 100 UNITS/ML SQ SCH (21:26)
[2018-12-11] MEDS ORDERED: MORPHINE 4 MG/ML SYR IV PRN (21:34)
[2018-12-11] MEDS ORDERED: POTASSIUM 25 MEQ EFFERV TAB PO ONE (22:20)
--- NOTE | 2018-12-11 22:26 | CON ---
Date of Consultation: 12/11/2018 Brief History Of Present Illness: The patient is a 58-year-old male known to me from previo us admissions and surgical procedures, I evaluated his foot prior in the past for osteomyelitis, who now presents with increasing swelling, pain and erythema of the left lower extremity in the area of t he dorsal aspect of the foot along the fifth and fourth ray distribution on the metatarsal aspect. T he patient has a history of underlying diabetes insulin-dependent, tobacco user, bipolar disorder. H e noted that he has had a chronic wound to the lateral portion of the left foot on the anterior aspec t, had prior amputation of the left great toe in the past. He states that he continued to notice the worsening of the above symptoms for approximately 3-4 days. He has missed several Wound Care appoin tments in the past. He has been noncompliant with wound care in the past as well. Past Medical History: Significant for diabetes, hypertension, seizure disorder, peripheral vascular disease, osteomyelitis, hyperlipidemia, bipolar disorder, tobacco use. Past Surgical History: Includes neck and back surgery, right eye removal, right knee surgery, bilate ral wrist surgery due to a suicide attempt, left great toe amputation. Family History: Significant for hypertension, diabetes, heart attack. Social History: He is a greater than half pack per day smoker, 35+ pack-year history. Denies alcoho l or recreational drug use. Home Medications: Include Cogentin, insulin, risperidone, Klonopin, Depakote, Cymbalta, Cozaar, and Medihoney. Allergies: TO HALDOL AND NARCAN/NALOXONE. Review of Systems: A 10-point review of systems other than HPI, denies. Physical Examination: General: At the time of my examination, he is awake, alert, oriented. Psychiatric: He is appropriate. Conversive. He answers questions appropriately. HEENT: He is otherwise normocephalic. Chest: Normal expansion and excursion. Abdomen: Soft, nontender. Extremities: He has tenderness, redness, swelling to the left lower extre mity [id number], primarily in the area of the dorsal aspect of the foot. There is swelling gener ally of the entire area. There are some cellulitic changes to this area with no obvious drainable fl uid collections. There is some skin excoriation on the lateral aspect along the metatarsal aspect an d the dorsal part of the foot in the fourth and fifth ray distribution. Laboratory Data: He had a laboratory exam, which reveals a white blood cell count 13.6, hemoglobin i s 12.5, hematocrit 36.5, neutrophils 81%, his platelets are 399. PT 14.9, INR 1.27, PTT 28.3. Sodiu m 133, potassium 2.9, chloride 93, carbon dioxide 29, BUN 22, creatinine 1.8, glucose is 118. Lactic acid is normal at 1.5 and Procalcitonin is 1.86. He had a foot x-ray performed 3 views, which was o fficially read as no acute or destructive left foot finding. No suspicious change in 2016. No fract ure dislocation or periosteal retractions. No acute or destructive bony process. First right toe kee rgically absent, hypertrophy of the first metatarsal sesamoid bones noted similar into comparison. N o air or foreign body in the soft tissues, arterial tree calcifications present. Assessment And Plan: This is a 58-year-old male who presents with cellulitis over the left foot. 1.IV fluid hydration. 2.Continue medical management. 3.Antibiotic coverage. 4.Serial exams, elevation and local wound care, wraps and elevation are bear and the repeated evaluat ion. 5.The patient does not require surgery at this time, however, I will recommend that he is n.p.o. aft er midnight for daily evaluation should surgical intervention be necessary. I have explained the ris ks, benefits, and alternatives of surgical procedures which would not be a debridement of the affecte d area. Complications could include but are not limited to bleeding, infection, damage to surround t issue, need for further operative procedures, loss of the foot, blood clots, heart attacks and other anesthesia issues. The patient agrees to proceed as indicated. Thank you for this interesting consult. HERNAN/PER Voice ID: [id number] Report ID: [id number]
[2018-12-12 02:53] LABS: Urine Appearance CLEAR; Urine Bilirubin NEGATIVE (NEG); Urine Blood NEGATIVE (NEG); Urine Color YELLOW; Urine Glucose NEGATIVE (NEG); Urine Protein 2+ (NEG); Urine Specific Gravity 1.015 (1.005-1.030)
[2018-12-12 03:15] LABS: Urine Microscopic Reflex ORDER UMIC
[2018-12-12 03:25] LABS: Urine Bacteria <20 /HPF (NONE SEEN); Urine Culture Reflex Order NOT NEEDED; Urine RBC NONE SEEN /HPF (NONE SEEN)
[2018-12-12] MEDS: FENTANYL CITR 100 MCG/2 ML IV PRN ×2 (04:59→15:31)
[2018-12-12 06:00] LABS: Absolute Lymphocytes (CBC) 1.1 K/uL (0.7-4.9); Basophils % 0.2 % (0-1.3); Hematocrit 32.1 % (39.6-49.0); MPV 8.3 fL (7.6-11.3); Monocytes % 12.4 % (3.3-12.3); RBC Red Blood Cell Count 3.59 M/uL (4.33-5.43)
[2018-12-12 06:21] LABS: Magnesium 1.5 mg/dL (1.8-2.4); Potassium 3.5 mmol/L (3.5-5.1)
--- NOTE | 2018-12-12 07:21 | P.PN ---
Date of Service: 12/11/18 Patient with DVT of the left lower extremity. Lovenox in a.m. if okay with surgery.
[2018-12-12] MEDS: INSULIN -REGULAR HUMAN 50 UNIT/0.5 ML ML SQ SCH ×4 (07:30→21:00)
--- NOTE | 2018-12-12 08:54 | P.PN ---
Subjective Date of Service: 12/12/18 Primary Care Provider: Dr. Prajapati Chief Complaint: Left foot swelling and pain Subjective: Other (Patient appears stable. Some pain to the left lower extremity. Patient had positive venous Doppler for DVT.) Physical Examination - Vital Signs Temperature: 98.9 F Blood Pressure: 144/76 Pulse: 95 Respirations: 18 Pulse Ox (%): 96 - Physical Exam General: Alert, In no apparent distress, Oriented x3, Cooperative, Other ( Increased anxiety) HEENT: Atraumatic Neck: Supple Respiratory: Clear to auscultation bilaterally, Normal air movement Cardiovascular: Normal pulses, Regular rate/rhythm Gastrointestinal: Normal bowel sounds, Soft and benign, Non-distended, No masses , No rebound, No guarding Integumentary: Other (Erythema, swelling to the left lower extremity improved. No changes to diabetic ulcer.) Neurological: Normal speech, Normal strength at 5/5 x4 extr, Normal tone - Studies Laboratory Data (last 24 hrs) 12/11/18 16:30: PT 14.9 H, INR 1.27, APTT 28.3 12/11/18 16:30: WBC 13.6 H, Hgb 12.5 L, Hct 36.5 L, Plt Count 399 12/11/18 16:30: Sodium 133 L, Potassium 2.9 L*, BUN 22 H, Creatinine 1.85 H, Glucose 118 H, Total Bilirubin 0.6, AST 54 H, ALT 27, Alkaline Phosphatase 597 H Medications List Reviewed: Yes Assessment & Plan Discharge Plan: Home Plan to discharge in: 72 Hours Physician Review Additional Text: Impression: Left lower extremity cellulitis with chronic diabetic ulcer Diabetes mellitus type 2, insulin-dependent Suspect PVD Left lower extremity DVT with prior history of DVT Hypokalemia Acute on Chronic renal disease, stage III Bipolar disorder Tobacco abuse History of seizure disorder Plan: Left lower extremity cellulitis with chronic diabetic ulcer: Continue with IV vancomycin and cefepime. Case discussed with surgery. No surgical debridement required at this time. Continue with medical management. Patient has seen podiatry as an outpatient. Venous Doppler positive for DVT. Patient with history DVT. Will start Lovenox at 1 milligram/kilogram subcu twice daily. Patient will likely require long-term chronic anti coagulation therapy indefinitely. Will check MRI of foot to rule out osteomyelitis. It may nonweightbearing. Will have physical therapy and occupational therapy assess ambulation. Continue to monitor closely. Will discuss further with surgery. Diabetes mellitus type 2, insulin-dependent: Continue basal insulin. Patient also on sliding scale.. Suspect PVD: Await arterial doppler result.. Left lower extremity DVT with prior history of DVT: Patient with history of DVT. Patient now on Lovenox at 1 milligram/kilogram subcu twice daily. Patient will need chronic anti coagulation therapy in the future. Likely need for indefinite treatment due to recurrence of DVT. Hypokalemia: Will monitor and replace appropriately. Acute on Chronic renal disease: This has improved with hydration. Continue IV fluids. Nephrology consulted to further assess. Renal ultrasound obtained. Bipolar disorder: Will restart home medication. Tobacco abuse: Will provide nicotine patch. History of seizure disorder: Will restart home medication. Time Spent Managing Pts Care (In Minutes): 55
[2018-12-12] MEDS: NICOTINE 21 MG/PAT TD SCH (08:57)
[2018-12-12] MEDS: BENZTROPINE 1 MG TAB PO SCH ×3 (09:00→21:26)
[2018-12-12] MEDS ORDERED: ENOXAPARIN 40 MG/0.4 ML SQ SCH (09:00)
[2018-12-12] MEDS: LOSARTAN POTASSIUM 50 MG TABLET PO SCH ×2 (09:00→09:20)
[2018-12-12] MEDS ORDERED: ENOXAPARIN 100 MG/ML SYR SQ SCH (09:00)
[2018-12-12] MEDS ORDERED: POTASSIUM CL SA 10 MEQ TAB PO ONE (09:00)
[2018-12-12] MEDS: MEDIHONEY 44 ML TOPICAL TUBE TOP SCH (09:00)
[2018-12-12] MEDS ORDERED: VANCOMYCIN 1 GM in NA CHLORIDE 0.9% 500 ML IVPB SCH (09:00)
[2018-12-12] MEDS ORDERED: Magnesium Sulfate 2gm IVPB 2 G/50 ML BAG IV ONE (09:00)
[2018-12-12] MEDS ORDERED: KCL 20 MEQ/100 mL IVPB 20 MEQ/100 ML BAG IV SCH (09:00)
[2018-12-12] MEDS: clonazePAM 1 MG TAB PO SCH ×4 (09:00→21:25)
[2018-12-12] MEDS: DULOXETINE 30 MG CAP PO SCH ×2 (09:00→09:18)
[2018-12-12] MEDS: CEFEPIME/SWI 1gm 10 ML IV SCH ×2 (09:06→20:44)
[2018-12-12] MEDS: HYDROCODONE/APAP 7.5/325 MG TAB PO PRN (09:23)
[2018-12-12] MEDS ORDERED: LORazepam 2 MG/ML VIAL IV ONE (09:55)
--- NOTE | 2018-12-12 10:41 | P.PN ---
Subjective Date of Service: 12/12/18 Primary Care Provider: Dr. Prajapati Chief Complaint: Left foot swelling and pain Subjective: Worsening (LEFT dorsal foot more tender, enlarged) Physical Examination - Vital Signs Temperature: 98.9 F Blood Pressure: 144/76 Pulse: 95 Respirations: 18 Pulse Ox (%): 96 - Physical Exam General: Alert, In no apparent distress, Cooperative Musculoskeletal: Other (LEFT foot, dorsal aspect now with collection) - Studies Laboratory Data (last 24 hrs) 12/11/18 16:30: PT 14.9 H, INR 1.27, APTT 28.3 12/11/18 16:30: WBC 13.6 H, Hgb 12.5 L, Hct 36.5 L, Plt Count 399 12/11/18 16:30: Sodium 133 L, Potassium 2.9 L*, BUN 22 H, Creatinine 1.85 H, Glucose 118 H, Total Bilirubin 0.6, AST 54 H, ALT 27, Alkaline Phosphatase 597 H Medications List Reviewed: Yes Assessment And Plan - Current Problems (Diagnosis) (1) Bacteremia Onset Date: 10/10/15 Current Visit: No Status: Acute Plan: Incision and Drainage of LEFT foot collection in AM - continue antibiotics and elevation Physician Review Additional Text: Impression: Left lower extremity cellulitis with chronic diabetic ulcer Diabetes mellitus type 2, insulin-dependent Suspect PVD Left lower extremity DVT with prior history of DVT Hypokalemia Acute on Chronic renal disease, stage III Bipolar disorder Tobacco abuse History of seizure disorder Plan: Left lower extremity cellulitis with chronic diabetic ulcer: Continue with IV vancomycin and cefepime. Case discussed with surgery. No surgical debridement required at this time. Continue with medical management. Patient has seen podiatry as an outpatient. Venous Doppler positive for DVT. Patient with history DVT. Will start Lovenox at 1 milligram/kilogram subcu twice daily. Patient will likely require long-term chronic anti coagulation therapy indefinitely. Will check MRI of foot to rule out osteomyelitis. It may nonweightbearing. Will have physical therapy and occupational therapy assess ambulation. Continue to monitor closely. Will discuss further with surgery. Diabetes mellitus type 2, insulin-dependent: Continue basal insulin. Patient also on sliding scale.. Suspect PVD: Await arterial doppler result.. Left lower extremity DVT with prior history of DVT: Patient with history of DVT. Patient now on Lovenox at 1 milligram/kilogram subcu twice daily. Patient will need chronic anti coagulation therapy in the future. Likely need for indefinite treatment due to recurrence of DVT. Hypokalemia: Will monitor and replace appropriately. Acute on Chronic renal disease: This has improved with hydration. Continue IV fluids. Nephrology consulted to further assess. Renal ultrasound obtained. Bipolar disorder: Will restart home medication. Tobacco abuse: Will provide nicotine patch. History of seizure disorder: Will restart home medication.
[2018-12-12] MEDS: LORazepam 2 MG/ML VIAL IV PRN ×6 (11:02→21:55)
--- NOTE | 2018-12-12 11:21 | RAD REPORT ---
EXAM DESCRIPTION: US - Lower Extremity Arterial Bilat - 12/11/2018 10:48 pm CLINICAL HISTORY: Evaluate left lower extremity for PVD Leg pain, claudication COMPARISON: Lower Extremity Arterial Bilat dated 07/22/2018 TECHNIQUE: Bilateral lower extremity arterial Doppler examination was performed with maryuri sanchez FINDINGS: Both common femoral artery show moderate atherosclerotic plaquing. The right lower extremity arterial system demonstrates triphasic waveforms throughout. No evidence of a significant flow restricting le nessa or occlusion. The left lower extremity system demonstrates triphasic waveforms involving the com mon femoral artery to the popliteal artery. Monophasic waveforms are seen in the left posterior tibia l artery and dorsalis pedis artery. No occlusion seen. IMPRESSION: Infrapopliteal moderately severe PVD noted on the left.
--- NOTE | 2018-12-12 11:24 | RAD REPORT ---
EXAM DESCRIPTION: US - Renal Ultrasound-Complete - 12/11/2018 10:48 pm CLINICAL HISTORY: Evaluate acute on chronic renal disease Flank pain COMPARISON: No comparisons FINDINGS: Both kidneys are normal in size, shape and echotexture. The right kidney measures 11.4 x 6.6 x 6.2 cm. No hydronephrosis, focal mass or perinephric fluid. The left kidney measures 12.9 x 6.2 x 6.2 cm. No hydronephrosis, focal mass or perinephric fluid. The urinary bladder is incompletely distended without gross abnormality seen. IMPRESSION: Unremarkable renal sonogram.
[2018-12-12] MEDS: NA CHLORIDE 0.9% 1,000 ML IV SCH ×2 (16:34→20:46)
[2018-12-12] MEDS: VANCOMYCIN 1.75 GM in NA CHLORIDE 0.9% 500 ML IVPB SCH (17:10)
[2018-12-12] MEDS ORDERED: CEFEPIME 1 GM/VIAL IV SCH (18:00)
[2018-12-12] MEDS ORDERED: CEFEPIME/SWI 1gm 10 ML IV SCH (18:00)
[2018-12-12] MEDS ORDERED: MAGNESIUM SULFATE 1 gm IVPB 1 GM/100 ML BAG IV ONE (21:00)
[2018-12-12] MEDS: RISPERIDONE 1 MG TABLET PO SCH (21:25)
[2018-12-12] MEDS: DIVALPROEX ER 250 MG TAB PO SCH (22:11)
[2018-12-12] MEDS: INSULIN GLARGINE 100 UNITS/ML SQ SCH (22:18)
--- NOTE | 2018-12-13 00:22 | CON ---
Date of Consultation: 12/12/2018 Chief Complaint: Acute kidney injury. History Of Present Illness: Acute kidney injury, severe, nonoliguric, associated with prerenal azotemia and nonoliguric ATN, accelerated, but renal hypoperfusion in setting of chronic kidney disease. The patient was found to have elevated BUN and creatinine levels when he came to the hospital. The patient was evaluated in the emergency room yesterday. Blood work was obtained and showed leukocytosis, white count 13.6. The patient was found to have severe hypokalemia, potassium was 2.9 and sodium 133, chloride 93, CO2 of 29, BUN 22, creatinine 1.85. Glucose was 427. Hemoglobin A1c 12.6 and a random glucose level was 118, although prior to that, he was found to have severe hyperglycemia, glucose of 427. The patient has history of chronic kidney disease and acute kidney injury. In the past back in July, creatinine level was up to 2.13. He developed acute nonoliguric kidney injury and the patient's creatinine baseline level was 1.2 back in May 2018 and in July 2018, was up to 2.13. He is not a good historian and is complaining of some lower urinary tract symptoms and history of incomplete voiding. He has history of diabetes mellitus which is poorly controlled. Urinalysis was obtained during this admission and showed 2+ protein. There is no active urinary sediment. The patient has history of proteinuria. The patient was found to have hyponatremia, moderately severe, and severe hypokalemia. Previously, he was found to have sodium level of 120 during admission back in July and this was associated with severe hyperglycemia with blood glucose of 1119 and corrected sodium level was in acceptable ranges. The patient has history of uncontrolled diabetes. He has a history of acute kidney injury secondary to prerenal azotemia related to uncontrolled diabetes mellitus and renal hypoperfusion. The patient was found to have hypokalemia, potassium was 2.9. There is no evidence of metabolic acidosis. Renal ultrasound was done to rule out obstructive uropathy to rule out urinary retention. Renal ultrasound did not reveal hydronephrosis. Right kidney size is 11.4 and left kidney 12.9. Urinary bladder was incompletely distended without gross abnormality seen. The patient has multiple medical problems including long-term history of uncontrolled diabetes mellitus, peripheral vascular disease, bipolar disorder, nonhealing lower extremity wounds. He is insulin dependent. He is a tobacco user. The patient was complaining of increasing severity of pain related to the left foot, and swelling and erythema were progressively worse. He was brought to the hospital. He has chronic wound to the lateral portion of the foot anteriorly. The patient had prior amputation of the left great toe in the past. During evaluation in the emergency room, the patient was consulted by surgical team for chronic wounds and nonhealing wounds with possible osteomyelitis. He was started on antibiotics. Lab work show procalcitonin elevated and electrolytes abnormalities and acute on chronic kidney failure. The patient has nonoliguric urine output. Review of Systems: Unobtainable. The patient is agitated and medicated for pain, cannot provide review of systems. Past Medical History: Diabetes mellitus type 2, insulin dependent; hypertension ; seizure disorder; bipolar disorder; peripheral vascular disease; history of osteomyelitis; hyperlipidemia; tobacco abuse; neck and back surgery; right eye removal; right knee surgery; left great toe amputation. Family History: Brother, hypertension. Sister, diabetes. Father, heart disease. Social History: Tobacco smoker. Denies alcohol. Denies drugs. Physical Examination: General: The patient is awake, alert, although he is somewhat confused and agitated. Eyes: Anicteric sclerae. EOMI. Ears, nose, mouth and Throat: Oral mucosa moist. No pallor. Neck: Supple. No bruits. Lungs: Clear to auscultation bilaterally. No rhonchi. No wheezing. Heart: S1, S2. No pericardial friction rub. Abdomen: Soft, benign, nontender. No rebound. No guarding. Extremities: No edema. No clubbing. No cyanosis. Neurologic: The patient follows commands and no tremor. Laboratory Data: Hemoglobin 12.5, hematocrit 36.5, platelet count 399,000, WBC 13.6. INR 1.27, aPTT 28.3, PT 14.9. Impression And Plan: 1. Acute kidney injury secondary to uncontrolled diabetes, prerenal azotemia, hypovolemia. Continue IV fluids for hydration. The patient needs to be ruled out for bacteremia. The patient will be started on vancomycin and cefepime to provide broad-spectrum antibiotic coverage for diabetic foot infection. The patient will have workup for peripheral vascular disease. Recommend Doppler arterial of both extremities. The patient is a high risk for IV contrast. In case he needs IV contrast, he will need IV fluids to stabilize kidney function and Mucomyst to prevent contrast-induced nephropathy. Despite the above measures, there is still substantial risk of contrast-induced nephropathy and acute kidney failure, which may lead to end-stage renal disease. 2. Hypokalemia. Replacement as needed. Monitor phosphorus and magnesium and electrolyte replacement. Plan is to check CK level to rule out rhabdomyolysis and start IV fluids for hydration to stabilize renal function, prevent renal hypoperfusion and treat acute kidney injury. 3. Diabetes mellitus. Avoid metformin and oral hypoglycemic agents. The patient will continue insulin and plan is to adjust insulin per sliding scale. DELANEY/[facility] Voice ID: [id number] Report ID: [id number] HERLINDA
[2018-12-13] MEDS: LORazepam 2 MG/ML VIAL IV PRN (00:51)
[2018-12-13] MEDS: NA CHLORIDE 0.9% 1,000 ML IV SCH ×2 (05:43→15:43)
[2018-12-13 06:28] LABS: Magnesium 2.1 mg/dL (1.8-2.4); Potassium 3.5 mmol/L (3.5-5.1)
[2018-12-13 06:45] LABS: Basophils % 0.2 % (0-1.3); Lymphocytes % 11.9 % (15.3-44.8); Monocytes % 14.6 % (3.3-12.3); RBC Red Blood Cell Count 3.23 M/uL (4.33-5.43)
[2018-12-13] MEDS ORDERED: KCL 20 MEQ/100 mL IVPB 20 MEQ/100 ML BAG IV SCH (07:00)
[2018-12-13] MEDS: INSULIN -REGULAR HUMAN 50 UNIT/0.5 ML ML SQ SCH ×4 (07:24→20:25)
[2018-12-13] MEDS: CEFEPIME/SWI 1gm 10 ML IV SCH ×2 (08:01→20:01)
[2018-12-13] MEDS: DULOXETINE 30 MG CAP PO SCH (08:01)
[2018-12-13] MEDS: BENZTROPINE 1 MG TAB PO SCH ×2 (08:01→22:30)
[2018-12-13] MEDS: clonazePAM 1 MG TAB PO SCH ×3 (08:01→22:29)
[2018-12-13] MEDS: MEDIHONEY 44 ML TOPICAL TUBE TOP SCH (08:02)
[2018-12-13] MEDS: SODIUM HYPOCHLORITE 0.5% 473 ML TOP SCH (08:02)
[2018-12-13] MEDS: NICOTINE 21 MG/PAT TD SCH (08:22)
--- NOTE | 2018-12-13 08:49 | P.PN ---
Subjective Date of Service: 12/13/18 Primary Care Provider: Dr. Prajapati Chief Complaint: Left foot swelling and pain Subjective: Other (Patient did receive his psychiatric medications last night. Patient rested last night. Nurses report better night. Patient NPO for surgical intervention today.) Physical Examination - Vital Signs Temperature: 98.4 F Blood Pressure: 133/59 Pulse: 95 Respirations: 18 Pulse Ox (%): 94 - Physical Exam General: Alert, Other (Resting in bed) HEENT: Atraumatic Neck: Supple Respiratory: Clear to auscultation bilaterally, Normal air movement Cardiovascular: Normal pulses, Regular rate/rhythm Gastrointestinal: Normal bowel sounds, Soft and benign, Non-distended Neurological: Other (Left foot with bandage in place. Swelling to the left lower extremity improved) - Studies Medications List Reviewed: Yes Assessment & Plan Discharge Plan: Home Plan to discharge in: 48 Hours Physician Review Additional Text: Impression: Left lower extremity cellulitis with chronic diabetic ulcer Diabetes mellitus type 2, insulin-dependent Suspect PVD Left lower extremity DVT with prior history of DVT Hypokalemia Acute on Chronic renal disease, stage III Bipolar disorder Tobacco abuse History of seizure disorder Plan: Left lower extremity cellulitis with chronic diabetic ulcer: Continue with IV vancomycin and cefepime. 1/ blood culture positive for Gram positive cocci. This is likely a contaminant. Patient NPO for surgical intervention. Lovenox on hold due to surgical intervention today. Patient will need to be restarted on anti coalition therapy for his DVT. Will discuss with surgery about plan of care after debridement. Continue with physical therapy and wound care. Likely home in the next 1-2 days pending clinical improvement. Diabetes mellitus type 2, insulin-dependent: Continue to adjust basal insulin for better control. Patient also on sliding scale.. PVD: Arterial doppler showed moderate to severe PVD to the left lower extremity. Left lower extremity DVT with prior history of DVT: Lovenox on hold due to surgical intervention. After intervention patient will need to be restarted on anti coagulation therapy. This will be transitioned to oral medication tomorrow. Patient likely requires lifetime medication due to recurrence of DVT Hypokalemia: Will monitor and replace appropriately. Acute on Chronic renal disease, stage III: This has improved with hydration. Continue IV fluids. Nephrology consulted to further assess. Renal ultrasound obtained. Bipolar disorder: Continue with home medication. Patient was agitated yesterday and required medication. Patient received his medications last night. Tobacco abuse: Will provide nicotine patch. History of seizure disorder: Continue home medication. Time Spent Managing Pts Care (In Minutes): 55
[2018-12-13] MEDS ORDERED: SUCCINYLCHOLINE 20 MG/ML (10 ML) IV ONE (09:48)
[2018-12-13] MEDS ORDERED: PROPOFOL 200 MG/20 ML VIAL IV ONE (09:50)
[2018-12-13] MEDS ORDERED: NA CHLORIDE 0.9% 1,000 ML ONE (09:52)
--- NOTE | 2018-12-13 10:09 | P.OP ---
Preoperative diagnosis: LEFT foot abscess Postoperative diagnosis: LEFT foot abscess Primary procedure: Incision and Drainage of LEFT foot abscess Secondary procedure: Debridement of left foot necrotic tissue Anesthesia: GETA Estimated blood loss: <5cc Specimen: Cultures and tissue sent Findings: necrosis to skin on dosum of foot, poor blood supply Complications: None Transferred to: Recovery Room Condition: Good
[2018-12-13] MEDS ORDERED: COLLAGENASE 30 GM OINTMENT TOP ONE (10:18)
[2018-12-13] MEDS: VANCOMYCIN 1.75 GM in NA CHLORIDE 0.9% 500 ML IVPB SCH (17:17)
[2018-12-13] MEDS: ENOXAPARIN 100 MG/ML SYR SQ SCH (20:12)
[2018-12-13] MEDS: INSULIN GLARGINE 100 UNITS/ML SQ SCH (20:24)
[2018-12-13] MEDS: DIVALPROEX ER 250 MG TAB PO SCH (21:00)
--- NOTE | 2018-12-13 21:21 | OP ---
Date of Procedure: 12/13/2018 Surgeon: Sanya Balbuena MD, Preoperative Diagnosis: Left foot abscess. Postoperative Diagnosis: Left foot abscess. Procedure Performed: 1.Incision and drainage of left foot abscess. 2.Debridement of left foot necrotic tissue. Anesthesia: General endotracheal. Estimated Blood Loss: Less than 5 cc. Specimen: Cultures sent and tissues sent. Findings: 1.Necrosis to the skin on the dorsum of the foot along the fourth and fifth metatarsal region extend ing down to the tendons. 2.Poor blood supply and poor venous bleeding and no arterial bleeding throughout procedure. Complications: None. Disposition: Transferred to recovery room in good condition. Procedure In Detail: After informed consent was obtained, the patient was brought to the operating r oom, prepped and draped in the usual sterile fashion. After adequate anesthesia was achieved, an ell iptical area on the dorsal aspect of the foot extending proximal to the fourth and fifth rays on the dorsal aspect of the foot metatarsal region, was dissected down through the subcutaneous tissues usin g a scalpel blade, an elliptical incision for approximately 5 x 6 cm ellipse of tissue taken down to expose a necrotic abscess cavity. This was opened in its entirety, cultured for both aerobic and mary erobic speciation and the tissue was sent off for pathologic examination. I then curetted all necrot ic tissue and removed the remainder of the necrotic tissue. There was poor venous bleeding at this t evelyn, easily controlled with minimal electrocautery. The area was then pulse lavaged aggressively and the tendons were exposed. At this point, the necrosis extended all the way to this area, but I did not have to remove any tendons. After the area appeared clean, I placed Santyl soaked gauze into the wound and a sterile dressing was placed over top. The patient tolerated the procedure well without evidence of complication and transferred to PACU in good condition. All counts were correct at the e nd of the case. HERNAN/MODL Voice ID: [id number] Report ID: [id number]
[2018-12-13] MEDS: RISPERIDONE 1 MG TABLET PO SCH (22:29)
[2018-12-14] MEDS: NA CHLORIDE 0.9% 1,000 ML IV SCH ×2 (01:11→11:42)
--- NOTE | 2018-12-14 01:22 | PN ---
Date of Progress Note: 12/13/2018 Chief Complaint: Acute on chronic kidney injury. History: The patient presented to the hospital because of generalized weakness and pain in the lower extremities. He was found to have severe nonoliguric acute kidney injury on chronic kidney disease associated with prerenal azotemia, nonoliguric ATN. In setting of chronic kidney disease, the patien t was found to have elevated BUN and creatinine when he came to emergency room. The patient was sandra filiberto for severe hypokalemia. Potassium was 2.9, sodium 133, chloride 93, CO2 of 29, BUN 22, creatinin e 1.85, glucose was 425. The patient has history of uncontrolled diabetes. Hemoglobin A1c was 12.6 and random glucose during this admission has stabilized after insulin treatment and was 118. The patient has chronic kidney disease stage 3. Previous baseline creatinine was 1.2. The patient has uncontrolled diabetes and there is no evidence of metabolic acidosis. There was hypo kalemia on admission of 2.9 and the patient had magnesium level checked. Review of Systems: Denies fever, chills. Physical Examination: Lungs: Few crackles at bases. Heart: S1, S2. Abdomen: Soft, benign, nontender. Extremities: Dressing in place. Lab Work: Hemoglobin 10.2, WBC 8.1, platelet count is 342,000. Sodium 138, potassium 3.5, chloride 104, CO2 of 25, BUN 23, creatinine 1.41, glucose 190, calcium 8.0, magnesium 2.1. Impression And Plan: 1.[id number] kidney injury secondary to prerenal azotemia, nonoliguric acute tubular necrosis associated with hypokalemia. The patient was found to have uncontrolled diabetes which was possible culprit for polyuria and prerenal azotemia. Continue IV fluids for adequate hydration. The patient received insulin for diabetic management. 2.Diabetic foot infection, per primary team, continue antibiotics. Adjust antibiotics to renal func tion. 3.Patient is undergoing workup to rule out rhabdomyolysis. CK level will be checked. Continue IV f luids for management of acute kidney injury. Avoid nonsteroidal anti-inflammatory medications. EB/MODL Voice ID: [id number] Report ID: [id number]
[2018-12-14 06:00] LABS: Magnesium 1.8 mg/dL (1.8-2.4); Potassium 3.7 mmol/L (3.5-5.1)
[2018-12-14 06:01] LABS: Absolute Lymphocytes (CBC) 1.2 K/uL (0.7-4.9); Basophils % 0.2 % (0-1.3); Hematocrit 30.2 % (39.6-49.0); RBC Red Blood Cell Count 3.35 M/uL (4.33-5.43)
[2018-12-14] MEDS ORDERED: MAGNESIUM SULFATE 1 gm IVPB 1 GM/100 ML BAG IV ONE (07:00)
[2018-12-14] MEDS: INSULIN -REGULAR HUMAN 50 UNIT/0.5 ML ML SQ SCH ×2 (07:30→11:40)
[2018-12-14] MEDS: CEFEPIME/SWI 1gm 10 ML IV SCH (08:11)
[2018-12-14 08:51] VITALS: O2SAT 97
[2018-12-14 08:57] LABS: Blood Morphology Comment NOT SEEN (NOT SEEN); Platelet Estimate ADEQ
[2018-12-14] MEDS: clonazePAM 1 MG TAB PO SCH (09:00)
[2018-12-14] MEDS ORDERED: KCL 20 MEQ/100 mL IVPB 20 MEQ/100 ML BAG IV SCH (09:00)
[2018-12-14] MEDS ORDERED: COLLAGENASE 30 GM OINTMENT TOP SCH (09:00)
[2018-12-14] MEDS: NICOTINE 21 MG/PAT TD SCH (09:27)
[2018-12-14] MEDS: DULOXETINE 30 MG CAP PO SCH (09:27)
[2018-12-14] MEDS: BENZTROPINE 1 MG TAB PO SCH (09:27)
[2018-12-14] MEDS: ENOXAPARIN 100 MG/ML SYR SQ SCH (09:28)
--- NOTE | 2018-12-14 11:11 | P.DS ---
Admission Date: 12/11/18 Discharge Date: 12/14/18 Primary Care Provider: Dr. Prajapati Disposition: DC HOME/HOME HEALTH CARE Discharge Condition: GOOD Reason for Admission: Left foot swelling and pain Consultations: Surgery-Dr. Balbuena Procedures: Xray: FINDINGS: No fracture, dislocation or periosteal reaction. No acute or destructive bony process. Right first toe is surgically absent. Hypertrophy of the first metatarsal sesamoid bones noted similar to comparison. No air or foreign body in the soft tissues. Arterial tree calcifications are present. IMPRESSION: No acute or destructive left foot finding. No suspicious change from 2016 comparison Renal US: COMPARISON: No comparisons FINDINGS: Both kidneys are normal in size, shape and echotexture. The right kidney measures 11.4 x 6.6 x 6.2 cm. No hydronephrosis, focal mass or perinephric fluid. The left kidney measures 12.9 x 6.2 x 6.2 cm. No hydronephrosis, focal mass or perinephric fluid. The urinary bladder is incompletely distended without gross abnormality seen. IMPRESSION: Unremarkable renal sonogram. Venous doppler: FINDINGS: Normal compressibility, flow augmentation, phasic flow and spontaneous flow are identified in the left lower extremity common femoral vein. Thrombus is present with absent compression in the femoral vein and popliteal vein. . No mass or abnormal fluid collection in the soft tissues. IMPRESSION: Acute deep venous thrombosis left lower extremity involving the femoral and popliteal veins. Arterial doppler: FINDINGS: Both common femoral artery show moderate atherosclerotic plaquing. The right lower extremity arterial system demonstrates triphasic waveforms throughout. No evidence of a significant flow restricting lesion or occlusion. The left lower extremity system demonstrates triphasic waveforms involving the common femoral artery to the popliteal artery. Monophasic waveforms are seen in the left posterior tibial artery and dorsalis pedis artery. No occlusion seen. IMPRESSION: Infrapopliteal moderately severe PVD noted on the left. Surgery: Dated procedure 12/13/2018 Surgeon: Dr. Balbuena Primary procedure: incision and drainage of left foot abscess Secondary procedure: debridement of left foot necrotic tissue Medical Problem List: Left lower extremity cellulitis/abscess with chronic diabetic ulcer, status post incision and drainage of left foot abscess with debridement of left foot necrotic tissue Diabetes mellitus type 2, insulin-dependent Moderate to severe PVD, infrapopliteal area Left lower extremity DVT involving femoral and popliteal vein with prior history of DVT Hypokalemia Acute on Chronic renal disease, stage III Bipolar disorder Tobacco abuse History of seizure disorder Brief History of Present Illness: 58-year-old male presented to the emergency room with increasing swelling, pain and erythema to the left lower extremity primarily the foot. Patient with underlying diabetes, insulin-dependent, tobacco abuse, bipolar disorder. Patient has noted increasing pain, swelling and erythema to the left foot. There is a chronic wound to the lateral portion of the foot anteriorly. Patient had a prior amputation of the left great toe in the past. It appeared to be getting worse with edema to the left lower extremity above the ankle region. He came to the ER for further evaluation. In the ER patient evaluated. White count elevated at 13.6. Lactic acid normal. Pro calcitonin was elevated. Sodium 133, potassium 2.9, BUN of 22, creatinine 1.85. GFR of 38. Glucose 118. Left foot does not show any evidence of osteo. There is a questionable needle foreign body to the bottom of the foot. Patient was started on antibiotic therapy. Patient admitted for further evaluation and treatment. I saw the patient in ER, patient appeared stable. Pain under control. Hospital Course: Patient presented with left extremity cellulitis/abscess with chronic diabetic foot ulcer. Patient was admitted for treatment. Patient evaluated by surgery. Surgical intervention was required. Patient had incision and drainage of the left foot abscess with debridement of the left foot necrotic tissue. Patient tolerated the procedure well. So far wound culture negative. Blood culture 1/ grew Staph aureus. At discharge patient will continue with wound care as recommended by surgery. Patient seen and followed by the [facility] with Dr. Mcfadden. Recommend follow up with Dr. Mcfadden in 1 week to follow up this hospitalization. At discharge he will continue with Doxycycline 100 mg 1 pill twice daily for 7 days. Home health and wound care will be arranged prior to discharge. His mother will be taught wound care. His family will help at home. Fall precautions in place. Patient will be given a prescription for a walker to use at home. Patient with diabetes mellitus type 2, insulin-dependent. This has remained stable. At discharge he will continue with his insulin regimen-insulin 70/30 45 units subcu twice daily. Patient also takes Victoza 1.8 mg subcu daily. Recommend to maintain blood sugars less 140 fasting less than 200 after meals. Further adjustment can be done by his PCP. Patient found to have left lower extremity DVT. Patient with prior history of DVT. Patient started on anti coagulation therapy. At discharge he will continue with Eliquis 10 mg 1 pill twice daily for 7 days then 5 mg 1 pill twice daily. Due to his history of DVT patient will likely require lifetime anti coagulation therapy. Recommend follow up with hematology as an outpatient to further address. Education on DVT and medication will be provided. Patient with acute on chronic renal disease, stage III. Renal ultrasound unremarkable. Renal function has improved with IV fluids. Recommend follow up with nephrology in 1-2 weeks. Recommend recheck lab-BMP in 1 week. Future medications will need to be renally dosed. Recommend no further use of nonsteroidal anti-inflammatories. Patient with bipolar disorder. Patient did have some agitation in the hospital. Overall stable at this time. At discharge he will continue with his current medications-Elavil 10 mg at bedtime, Cogentin 0.5 mg 1 pill twice daily , clonazepam 1 mg 1 pill 3 times a day, Adderall 30 mg 1 pill twice daily, and Cymbalta 60 mg 2 pills daily, risperidone 4 mg at bedtime. Recommend follow up with psychiatry as directed. Patient with history of seizure disorder. Patient will continue with his medication-Depakote ER 500 mg at bedtime. Patient also found to have moderate to severe left lower extremity PVD. Recommend follow up with cardiology as an outpatient to further evaluate and treat. Patient may require CV intervention. Education provided. Patient with hypertension. His blood pressure medication was held during the hospital as blood pressure remained stable off medication. At discharge he will continue with losartan 100 mg daily and metoprolol 50 mg 1 pill twice daily. Recommended maintain blood pressures less 150/80. Further adjustment can be done by his PCP. Patient will continue to hold his blood pressure medication if blood pressure less than 110 systolic. Vital Signs/Physical Exam: Temp Pulse Resp BP Pulse Ox 97.8 F 80 18 116/48 L 98 12/14/18 08:00 12/14/18 08:00 12/14/18 08:00 12/14/18 08:00 12/14/18 08:00 General: Alert, In no apparent distress, Cooperative HEENT: Atraumatic Neck: Supple Respiratory: Clear to auscultation bilaterally, Normal air movement Cardiovascular: Normal pulses, Regular rate/rhythm Gastrointestinal: Normal bowel sounds, Soft and benign, Non-distended Integumentary: Other (Left foot bandaged.) Neurological: Normal speech, Normal strength at 5/5 x4 extr, Normal tone Laboratory Data at Discharge: WBC 7.9 K/uL (4.3-10.9) 12/14/18 05:26 Hgb 10.2 g/dL (13.6-17.9) L 12/14/18 05:26 Hct 30.2 % (39.6-49.0) L 12/14/18 05:26 Plt Count 372 K/uL (152-406) 12/14/18 05:26 PT 14.9 SECONDS (9.5-12.5) H 12/11/18 16:30 INR 1.27 12/11/18 16:30 APTT 28.3 SECONDS (24.3-36.9) 12/11/18 16:30 Sodium 143 mmol/L (136-145) 12/14/18 05:26 Potassium 3.7 mmol/L (3.5-5.1) 12/14/18 05:26 BUN 17 mg/dL (7-18) 12/14/18 05:26 Creatinine 1.18 mg/dL (0.55-1.3) 12/14/18 05:26 Glucose 142 mg/dL (74-106) H 12/14/18 05:26 Magnesium 1.8 mg/dL (1.8-2.4) 12/14/18 05:26 Total Bilirubin 0.6 mg/dL (0.2-1.0) 12/11/18 16:30 AST 54 U/L (15-37) H 12/11/18 16:30 ALT 27 U/L (12-78) 12/11/18 16:30 Alkaline Phosphatase 597 U/L (45-117) H 12/11/18 16:30 Home Medications: Amitriptyline [Elavil*] 10 mg PO BEDTIME 12/14/18 Apixaban [Eliquis] 5 mg PO SEECOM #70 tablet 12/14/18 Benztropine Mesylate [Cogentin] 0.5 mg PO BID 12/14/18 Collagenase [Santyl Ointment*] 1 appl TOP DAILY #1 tube 12/14/18 Dextroamphetamine/Amphetamine [Adderall 30 mg Tablet] 30 mg PO BID 12/14/18 Divalproex ER [Depakote *ER] 500 mg PO BEDTIME 12/14/18 Doxycycline Hyclate 100 mg PO BID #14 tablet 12/14/18 Duloxetine HCl [Cymbalta] 2 cap PO DAILY 12/14/18 Hydrocodone/Acetaminophen [[place] 10-325 Tablet] 1 tab PO TID 12/14/18 Insulin NPH Hum/Reg Insulin Hm [Novolin 70-30 Flexpen] 45 units SQ BID 12/14/18 Liraglutide [Victoza 2-Reid] 1.8 mg SQ DAILY 12/14/18 Losartan Potassium [Cozaar*] 50 mg PO DAILY 12/14/18 Metoprolol Tartrate 50 mg PO BID 12/14/18 Risperidone [Risperidone Odt] 4 mg PO BEDTIME 12/14/18 clonazePAM [Clonazepam] 1 mg PO TID 12/14/18 New Medications: Apixaban [Eliquis] 5 mg PO SEECOM #70 tablet Collagenase [Santyl Ointment*] 1 appl TOP DAILY #1 tube Doxycycline Hyclate 100 mg PO BID #14 tablet Patient Discharge Instructions: 1. Recommend follow-up with his PCP in 1 week to follow up this hospitalization. 2. Patient presented with left extremity cellulitis/abscess with chronic diabetic foot ulcer. Patient was admitted for treatment. Patient evaluated by surgery. Surgical intervention was required. Patient had incision and drainage of the left foot abscess with debridement of the left foot necrotic tissue. Patient tolerated the procedure well. So far wound culture negative. Blood culture 1/ grew Staph aureus. At discharge patient will continue with wound care as recommended by surgery. Patient [facility] and [facility] with Dr. Mcfadden. Recommend follow up with Dr. Mcfadden in 1 week to follow up this hospitalization. At discharge he will continue with Doxycycline 100 mg 1 pill twice daily for 7 days. Home health and wound care will be arranged prior to discharge. His mother will be taught wound care. His family will help at home. Fall precautions in place. Patient will be given a prescription for a walker to use at home. 3. Patient with diabetes mellitus type 2, insulin-dependent. This has remained stable. At discharge he will continue with his insulin regimen-insulin 70/30 45 units subcu twice daily. Patient also takes Victoza 1.8 mg subcu daily. Recommend to maintain blood sugars less 140 fasting less than 200 after meals. Further adjustment can be done by his PCP. 4. Patient found to have left lower extremity DVT. Patient with prior history of DVT. Patient started on anti coagulation therapy. At discharge he will continue with Eliquis 10 mg 1 pill twice daily for 7 days then 5 mg 1 pill twice daily. Due to his history of DVT patient will likely require lifetime anti coagulation therapy. Recommend follow up with hematology as an outpatient to further address. Education on DVT and medication will be provided. 5. Patient with acute on chronic renal disease, stage III. Renal ultrasound unremarkable. Renal function has improved with IV fluids. Recommend follow up with nephrology in 1-2 weeks. Recommend recheck lab-BMP in 1 week. Future medications will need to be renally dosed. Recommend no further use of nonsteroidal anti-inflammatories. 6. Patient with bipolar disorder. Patient did have some agitation in the hospital. Overall stable at this time. At discharge he will continue with his current medications-Elavil 10 mg at bedtime, Cogentin 0.5 mg 1 pill twice daily , clonazepam 1 mg 1 pill 3 times a day, Adderall 30 mg 1 pill twice daily, and Cymbalta 60 mg 2 pills daily, risperidone 4 mg at bedtime. Recommend follow up with psychiatry as directed. 7. Patient with history of seizure disorder. Patient will continue with his medication-Depakote ER 500 mg at bedtime. 8. Patient also found to have moderate to severe left lower extremity PVD. Recommend follow up with cardiology as an outpatient to further evaluate and treat. Patient may require CV intervention. Education provided. 9. Patient with hypertension. Blood pressure medication was held in the hospital stay as blood pressures remain stable off his medication. At discharge he will continue with losartan 100 mg daily and metoprolol 50 mg 1 pill twice daily. Recommended maintain blood pressures less 150/80. Further adjustment can be done by his PCP. Patient to continue to hold blood pressure medication if blood pressure less than 110 systolic. Diet: ADA Activity: Fall precautions Time spent managing pt's care (in minutes): 55
[2018-12-14 13:38] VITALS: BP 143/63; TEMP 99.3
[2018-12-14] MEDS: SODIUM HYPOCHLORITE 0.5% 473 ML TOP SCH (14:06)
[2018-12-14] MEDS: HYDROCODONE/APAP 7.5/325 MG TAB PO PRN (14:11)
--- NOTE | 2018-12-15 01:27 | PN ---
Date of Progress Note: 12/14/2018 Chief Complaint: Acute on chronic kidney injury. History Of Present Illness: The patient presented to the hospital because of generalized weakness and pain in the lower extremities. He has diabetic foot infection and chronic osteomyelitis. He was treated with antibiotics. He was found to have acute on chronic kidney injury with prerenal azotemia and nonoliguric ATN in setting of chronic kidney disease secondary to diabetic kidney disease and hypertensive kidney disease. The patient was found to have hypokalemia. Potassium was 2.9. There was no evidence of metabolic acidosis. The patient received replacement and potassium level has improved. The patient was found to have uncontrolled diabetes. Glucose was up to 125, sodium 133, potassium 2.2, chloride 93, CO2 29. Subsequently, with treatment, glucose level improved to 118 gradually. The patient has chronic kidney disease stage 3. Baseline creatinine is 1.2. Renal function has been gradually improving during this admission in response to IV fluids. Review of Systems: Denies fever, chills. Physical Examination: Lungs: Few crackles at bases. Heart: S1, S2. No pericardial friction rub. Abdomen: Soft, benign. Extremities: Minimal peripheral edema. Laboratory Data: Blood work: Sodium 138, potassium 3.5, BUN 23, creatinine 1.41, magnesium 2.1. Impression And Plan: 1. Acute on chronic kidney injury secondary to prerenal azotemia, nonoliguric tubular necrosis associated with hypokalemia. The patient had polyuria secondary to uncontrolled diabetes, which resulted in prerenal azotemia. Continue adequate hydration. IV fluids were used to initiate control of acute kidney injury and provide hydration. 2. Diabetic foot infection. Per primary team, continue antibiotics. Adjust antibiotics to renal functions. 3. The patient is undergoing workup to rule out rhabdomyolysis. CK level was checked. There is no evidence of significant rhabdomyolysis. Avoid nephrotoxic medication. The patient cannot take nonsteroidal anti-inflammatory medication. 4. Diabetes mellitus. The patient is not a candidate for metformin due to chronic kidney disease and history of acute kidney injury. I spent total 36 min including 26 min to coordinate care plan. DELANEY/PER Voice ID: [id number] Report ID: [id number] HERLINDA
== END 2018-12-14 14:42 | disposition home health service (06) | DRG 982 ==
LOC: ER 15:56 → ERHOLD 17:43 → 4TH 20:06
PROVIDERS: ADMIT Family Medicine; ATTEND Family Medicine
PROC: 0LDW0ZZ Extraction of Left Foot Tendon, Open Approach (ICD-10-PCS; 2018-12-13)
PROC: 0L9W0ZZ Drainage of Left Foot Tendon, Open Approach (ICD-10-PCS; principal; 2018-12-13 09:30)
DX: E11.621 Type 2 diabetes mellitus with foot ulcer (principal); L03.116 Cellulitis of left lower limb; L02.612 Cutaneous abscess of left foot; E87.1 Hypo-osmolality and hyponatremia; E11.628 Type 2 diabetes mellitus with other skin complications; E11.51 Type 2 diabetes mellitus with diabetic peripheral angiopathy without gangrene; E87.6 Hypokalemia; I82.432 Acute embolism and thrombosis of left popliteal vein; N17.0 Acute kidney failure with tubular necrosis; I12.9 Hypertensive chronic kidney disease with stage 1 through stage 4 chronic kidney disease, or unspecified chronic kidney disease; E11.22 Type 2 diabetes mellitus with diabetic chronic kidney disease; N18.3 Chronic kidney disease, stage 3 (moderate); E11.65 Type 2 diabetes mellitus with hyperglycemia; Z91.19 Patient's noncompliance with other medical treatment and regimen; F31.9 Bipolar disorder, unspecified; G40.909 Epilepsy, unspecified, not intractable, without status epilepticus; F17.210 Nicotine dependence, cigarettes, uncomplicated; E78.5 Hyperlipidemia, unspecified; Z79.4 Long term (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; Z86.718 Personal history of other venous thrombosis and embolism; Z89.412 Acquired absence of left great toe
CPT/HCPCS: 36415; 76770; 80048; 80076; 81003; 81015; 82962; 83605; 83735; 84132; 84145; 85025; 85610; 85730; 87040; 87070; 87075; 87077; 87186; 87205; 88304; 93925; 93971; 96372; 99285; J0330; J0692; J0744; J1650; J2704; J3010; J3475; J3590; J7030

== ENCOUNTER 2019-01-04 10:08 | Inpatient (IN) | payer OTHER ==
[2019-01-04 10:53] VITALS: BMI 28.5
[2019-01-04] MEDS ORDERED: HYDROCODONE/APAP 7.5/325 MG TAB PO PRN (10:57)
[2019-01-04] MEDS ORDERED: ONDANSETRON 4 MG/2 ML VIAL IV PRN (10:57)
[2019-01-04] MEDS ORDERED: ACETAMINOPHEN 500 MG TAB PO PRN (10:57)
[2019-01-04] MEDS ORDERED: VANCOMYCIN/NS 1 gm 1 GM/250 ML BAG IVPB SCH (11:00)
[2019-01-04] MEDS: INSULIN -REGULAR HUMAN 50 UNIT/0.5 ML ML SQ SCH ×3 (11:34→21:17)
[2019-01-04] MEDS ORDERED: clonazePAM 1 MG TAB PO PRN (11:35)
[2019-01-04] MEDS ORDERED: D50W 25 GM/50 ML SYRINGE IV PRN (11:36)
[2019-01-04] MEDS ORDERED: GLUCAGON 1 MG/VIAL IM PRN (11:36)
[2019-01-04] MEDS: NA CHLORIDE 0.9% 1,000 ML IV SCH ×2 (11:40→23:02)
--- NOTE | 2019-01-04 11:56 | RAD REPORT ---
EXAM DESCRIPTION: Kaylene Single View01/04/2019 11:41 am CLINICAL HISTORY: cough COMPARISON: July 2018 FINDINGS: Left base is mildly hazy Right lung appears clear The heart is normal size IMPRESSION: Left base is mildly hazy which could indicate a mild infiltrate or overlying soft tissue . PA and lateral chest series would be helpful for further evaluation
[2019-01-04 11:58] LABS: Absolute Lymphocytes (CBC) 1.1 K/uL (0.7-4.9); Basophils % 0.3 % (0-1.3); Hematocrit 27.7 % (39.6-49.0); Lymphocytes % 15.4 % (15.3-44.8); MPV 8.2 fL (7.6-11.3); RBC Red Blood Cell Count 3.14 M/uL (4.33-5.43)
--- NOTE | 2019-01-04 11:59 | RAD REPORT ---
EXAM DESCRIPTION: RAD - Foot Left 2 View - 01/04/2019 11:41 am CLINICAL HISTORY: Left Foot pain FINDINGS: Amputation first phalanx Lucency within the soft tissue surrounding the fifth metatarsal may indicate air Lucencies within the fifth metatarsal head and base of the fifth proximal phalanx may indicate osteom yelitis. No fracture or dislocation seen Vascular calcifications present
[2019-01-04] MEDS ORDERED: VANCOMYCIN 1.75 GM in NA CHLORIDE 0.9% 500 ML IVPB ONE (12:00)
[2019-01-04] MEDS: CEFEPIME/SWI 2gm 2 GM/20 ML SYR IV SCH ×2 (12:08→21:12)
[2019-01-04 12:09] LABS: Potassium 4.1 mmol/L (3.5-5.1)
[2019-01-04] MEDS ORDERED: MORPHINE 2 MG/ML SYR IV PRN (12:14)
[2019-01-04] MEDS: HYDROMORPHONE HCL 1 MG/ML INJ IV PRN ×3 (14:33→22:58)
[2019-01-04] MEDS: DIVALPROEX ER 250 MG TAB PO SCH (21:00)
[2019-01-04] MEDS ORDERED: CEFEPIME 2 GM VIAL IV SCH (21:00)
[2019-01-04] MEDS: HOME MED 1 EA UNK (Dextroamphetamine/Amphetamine [Adderall 30 Mg Tablet] 30 MG) PO SCH (21:00)
[2019-01-04] MEDS: METOPROLOL TAR 50 MG TAB PO SCH (21:15)
[2019-01-04] MEDS: INSULIN GLARGINE 100 UNITS/ML SQ SCH (21:18)
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
[2019-01-05] MEDS: HYDROMORPHONE HCL 1 MG/ML INJ IV PRN ×6 (02:29→21:14)
[2019-01-05] MEDS: VANCOMYCIN 1.75 GM in NA CHLORIDE 0.9% 500 ML IVPB SCH (05:12)
[2019-01-05 06:27] LABS: Absolute Lymphocytes (CBC) 1.1 K/uL (0.7-4.9); Basophils % 0.3 % (0-1.3); Lymphocytes % 18.6 % (15.3-44.8); MPV 8.5 fL (7.6-11.3)
[2019-01-05 06:39] LABS: Potassium 4.1 mmol/L (3.5-5.1)
--- NOTE | 2019-01-05 06:47 | P.CNS ---
Date of Consult: 01/05/19 Reason for Consult: left foot osteomyelitis with cellulitis Chief Complaint: Left foot wound Allergies haloperidol [From Haldol] Allergy (Verified 12/11/18 20:38) Anaphylaxis naloxone [From Narcan] Allergy (Verified 12/11/18 20:38) Anaphylaxis Home Medications: Collagenase [Santyl Ointment*] 1 appl TOP DAILY #1 tube 12/14/18 Dextroamphetamine/Amphetamine [Adderall 30 mg Tablet] 30 mg PO BID 12/14/18 Divalproex ER [Depakote *ER] 500 mg PO BEDTIME 12/14/18 Hydrocodone/Acetaminophen [[place] 10-325 Tablet] 2 tab PO TID PRN 12/14/18 Insulin NPH Hum/Reg Insulin Hm [Novolin 70-30 Flexpen] 45 units SQ BID 12/14/18 Liraglutide [Victoza 2-Reid] 1.8 mg SQ DAILY 12/14/18 Losartan Potassium [Cozaar*] 50 mg PO DAILY 12/14/18 Metoprolol Tartrate 50 mg PO BID 12/14/18 clonazePAM [Clonazepam] 1 mg PO TID PRN 12/14/18 Apixaban [Eliquis] 5 mg PO BID 01/04/19 - Past Medical/Surgical History Diabetic: Yes -: Diabetes mellitus type 2, insulin-dependent -: Hypertension -: Seizure disorder -: Peripheral vascular disease -: History of osteomyelitis -: Hyperlipidemia -: Bipolar disorder -: Tobacco abuse -: schizophrenia -: History of amputation to the left great toe -: History of blood clots -: seizures -: Neck and back surgery -: Right eye removal -: Right knee surgery -: Bilateral wrist surgery due to suicide attempt -: Left great toe amputation Psychosocial/ Personal History: Patient is . He has 2 children. He lives at home. - Family History Brother Medical History: Hypertension Sister Medical History: Diabetes Father Medical History: Heart disease Notes: heart attack Mother Medical History: Diabetes - Social History Smoking Status: Current every day smoker Alcohol use: No CD- Drugs: No Caffeine use: Yes Place of Residence: Home Review of Systems 10-point ROS is otherwise unremarkable Physical Examination Temp Pulse Resp BP Pulse Ox 97.3 F 78 16 150/70 H 99 01/05/19 00:00 01/05/19 00:00 01/05/19 00:00 01/05/19 00:00 01/05/19 00:00 General: Alert, In no apparent distress, Oriented x3 Cardiovascular: Edema, Abnormal pulses Capillary refill: >2 Seconds Musculoskeletal: No clubbing, No swelling, No contractures, No erythema, No tenderness, No warmth Integumentary: Diabetic ulcer (large ulceration dorsal lateral aspect of left foot with bone and tendon exposure. Moderate necrotic tissue noted that was debrided bedside with an incision and drainage kit via excisional debridement down to bone. No purulence expressed from wound. The wound did bleed upon debridement and left fifth digit is noted to be edematous ) Neurological: Abnormal sensation Laboratory Data (last 24 hrs) 01/05/19 05:39: Sodium 137, Potassium 4.1, BUN 19 H, Creatinine 1.01, Glucose 102 01/05/19 05:39: WBC 6.0 D, Hgb 8.6 L, Hct 25.0 L, Plt Count 277 01/04/19 11:40: Sodium 134 L, Potassium 4.1, BUN 20 H, Creatinine 1.19, Glucose 320 H 01/04/19 11:40: WBC 7.1, Hgb 9.2 L, Hct 27.7 L, Plt Count 300 - Problems (1) Cellulitis of foot, left Onset Date: 07/23/18 Current Visit: No Status: Acute Conclusions/Impression: 1. Infectious disease consult 2. Patient is wanting to give iv antibiotics a chance to treat the osteomyelitis. patient will need a prolonged course of iv antibiotics and possible hyperbarics. 3. Wound vac to be applied 4. MRI left foot to evaluate the foot in addition to the left fifth metatarsal which is diagnosed as having osteomyelitis Physician Review: Patient Assessed, Agree with Above Assessment and Plan
[2019-01-05] MEDS: INSULIN -REGULAR HUMAN 50 UNIT/0.5 ML ML SQ SCH ×4 (07:30→21:13)
[2019-01-05] MEDS: HOME MED 1 EA UNK (Liraglutide [Victoza 2-Pak] 1.8 MG) SQ SCH (09:00)
[2019-01-05] MEDS: HOME MED 1 EA UNK (Dextroamphetamine/Amphetamine [Adderall 30 Mg Tablet] 30 MG) PO SCH ×2 (09:00→21:00)
[2019-01-05] MEDS: COLLAGENASE 30 GM OINTMENT TOP SCH (09:00)
[2019-01-05] MEDS: CEFEPIME/SWI 2gm 2 GM/20 ML SYR IV SCH ×2 (09:03→21:12)
[2019-01-05] MEDS: LOSARTAN POTASSIUM 50 MG TABLET PO SCH (09:05)
[2019-01-05] MEDS: METOPROLOL TAR 50 MG TAB PO SCH ×2 (09:05→21:13)
[2019-01-05] MEDS: NA CHLORIDE 0.9% 1,000 ML IV SCH ×3 (09:41→23:10)
[2019-01-05] MEDS: HYDROCODONE/APAP 10/325 TAB PO PRN (11:31)
--- NOTE | 2019-01-05 13:38 | P.PN ---
Subjective Date of Service: 01/05/19 Chief Complaint: Left foot wound Patient seen and examined at bedside. No family at bedside. Chart reviewed and case discussed with nursing staff. Continues to complain of pain. No events noted overnight Review of Systems 10-point ROS is otherwise unremarkable Physical Examination - Vital Signs Temperature: 98.5 F Blood Pressure: 174/87 Pulse: 68 Respirations: 18 Pulse Ox (%): 97 - Physical Exam General: Mild distress, Other (Appears older than stated age) HEENT: Atraumatic, PERRLA, EOMI Neck: Supple, JVD not distended Respiratory: Clear to auscultation bilaterally, Normal air movement Cardiovascular: Regular rate/rhythm, Normal S1 S2 Gastrointestinal: Normal bowel sounds, No tenderness Musculoskeletal: Other (Left foot erythema, mild tenderness to palpation. Wound on the left lateral foot with foul odor and discharge with tendon exposed. Left foot great toe status post amputation) Neurological: Normal speech, Normal tone, Normal affect Lymphatics: No axilla or inguinal lymphadenopathy - Studies Laboratory Data (last 24 hrs) 01/05/19 05:39: Sodium 137, Potassium 4.1, BUN 19 H, Creatinine 1.01, Glucose 102 01/05/19 05:39: WBC 6.0 D, Hgb 8.6 L, Hct 25.0 L, Plt Count 277 Microbiology Data (last 24 hrs): 01/05/19 05:15 Wound - Left Foot Gram Stain - Final Assessment And Plan - Plan 58-year-old male with: Acute left lower extremity cellulitis with involvement of the foot. -X-ray reveals changes of osteomyelitis and possible free air. This is likely due to recent surgery. Pending MRI of the foot. -continue broad-spectrum IV antibiotics. cultures pending, negative so far. -Dr. Mcfadden with Podiatry has been consulted, recommendations appreciated. -Patient will need long-term IV antibiotics. Will continue with broad-spectrum vancomycin/cefepime. -patient will need PICC line placement, along with L tach for further hyperbaric treatment as well as IV antibiotics. Social work on board Diabetes mellitus type 2, insulin requiring with hyperglycemia. -Last hemoglobin A1c from October 26 was 12.6%. -We will adjust insulin dose, start on sliding scale insulin, monitor blood glucose levels. Essential hypertension. -We will continue home medications Seizure disorder. -We will continue Depakote. Peripheral vascular disease. Mixed hyperlipidemia. We will continue home medications. Bipolar disorder. Nicotine dependence with cigarette smoking. Counseled for less than 10 minutes. Deep vein thrombosis prophylaxis with Lovenox. Plan: Continue broad-spectrum IV antibiotics. He will require long-term IV antibiotics and hyperbaric treatment. Social work on board for Ltac placement. Physician Review: Patient Assessed, Agree with Above Assessment and Plan
--- NOTE | 2019-01-05 13:39 | EKG ---
Test Date: 2019-01-04 Test Time: 11:24:33 Lung Puller: NIRU MEASUREMENT RESULTS: Intervals: Rate: 76 CO: 160 QRSD: 98 QT: 396 QTc: 445 [place]: P: 77 CO: 160 QRS: 49 T: 43 INTERPRETIVE STATEMENTS: Normal sinus rhythm Possible Anterior infarct, age undetermined Abnormal ECG Compared to ECG 10/12/2018 13:20:20 Myocardial infarct finding now present Left-axis deviation no longer present Electronically Signed On 01-05-19 13:34:30 CDT by Tyler Gomez
--- NOTE | 2019-01-05 19:49 | RAD REPORT ---
EXAM DESCRIPTION: MRI - Foot Left Wo Cont - 01/05/2019 6:43 pm CLINICAL HISTORY: Soft tissue wound dorsum of the left foot, prior amputation of the right first toe COMPARISON: Left foot January 04 TECHNIQUE: Multiplanar imaging of the left foot performed using T1 weighted, T1 fat saturation, T2 S TIR and T2 fat saturation sequencing. FINDINGS: First toe has been resected. The second- fourth toes show no suspicious findings. Hypointe nse T1 and hyperintense T2 signal is present in the fifth proximal phalanx. Fracture along the dorsal margin of the fifth proximal phalanx shaft is suspected. Middle and distal phalanges of the fifth to e show normal signal characteristics. No suspicious marrow pattern in the first- fourth metatarsals. There is hypointense T1 and hyperinten se T2 signal throughout the fifth metatarsal. There is irregular cortical signal in the fifth metatar avril head. There is likely bone loss present. Thinning and disruption of cortex of the base of the fif th metatarsal suspected as well. Tarsal bones, talus and calcaneus show no suspicious marrow signal p attern. Prominent soft tissue wound changes present dorsal lateral margin of the foot. No abscess or drainabl e fluid collection identified. IMPRESSION: Osteomyelitis throughout the entirety of the fifth metatarsal with evidence for bone los s changes at the base and head of the fifth metatarsal. Osteomyelitis with fracture change involving the fifth toe proximal phalanx. Large soft tissue wound dorsal lateral foot without abscess or drainable fluid collection.
[2019-01-05] MEDS: INSULIN GLARGINE 100 UNITS/ML SQ SCH (21:13)
[2019-01-05] MEDS: DIVALPROEX ER 250 MG TAB PO SCH (21:13)
[2019-01-06] MEDS: VANCOMYCIN 1.75 GM in NA CHLORIDE 0.9% 500 ML IVPB SCH (01:00)
[2019-01-06] MEDS: HYDROMORPHONE HCL 1 MG/ML INJ IV PRN ×4 (01:20→14:33)
[2019-01-06] MEDS: INSULIN -REGULAR HUMAN 50 UNIT/0.5 ML ML SQ SCH ×2 (07:30→11:30)
[2019-01-06 07:59] VITALS: O2SAT 98
[2019-01-06] MEDS: HOME MED 1 EA UNK (Dextroamphetamine/Amphetamine [Adderall 30 Mg Tablet] 30 MG) PO SCH (09:00)
[2019-01-06] MEDS: HOME MED 1 EA UNK (Liraglutide [Victoza 2-Pak] 1.8 MG) SQ SCH (09:00)
[2019-01-06] MEDS: NA CHLORIDE 0.9% 1,000 ML IV SCH (09:47)
[2019-01-06] MEDS: LOSARTAN POTASSIUM 50 MG TABLET PO SCH (09:48)
[2019-01-06] MEDS: CEFEPIME/SWI 2gm 2 GM/20 ML SYR IV SCH (09:48)
[2019-01-06] MEDS: METOPROLOL TAR 50 MG TAB PO SCH (09:48)
[2019-01-06] MEDS: COLLAGENASE 30 GM OINTMENT TOP SCH (09:50)
--- NOTE | 2019-01-06 11:13 | P.PN ---
Subjective Date of Service: 01/06/19 Chief Complaint: Left foot wound Subjective: Doing well Review of Systems 10-point ROS is otherwise unremarkable Physical Examination - Vital Signs Temperature: 97.6 F Blood Pressure: 169/81 Pulse: 74 Respirations: 20 Pulse Ox (%): 99 - Physical Exam General: Alert, In no apparent distress, Oriented x3 Cardiovascular: Edema (diminished compared to last visit.), Abnormal pulses Capillary refill: <2 Seconds Musculoskeletal: No clubbing, No swelling, No contractures, No erythema, No tenderness, No warmth Integumentary: Diabetic ulcer (Negative pressure wound therapy in place, no periwound erythema. Patient tolerating NPWT well) Neurological: Abnormal sensation - Studies Microbiology Data (last 24 hrs): 01/05/19 05:15 Wound - Left Foot Gram Stain - Final Imagings Data: MRI positive for osteomyelitis left fifth metatarsal and fifth digit Assessment And Plan - Current Problems (Diagnosis) (1) Cellulitis of foot, left Onset Date: 07/23/18 Current Visit: No Status: Acute - Plan Continue iv antibiotics and agree with transfer to LTAC Continue NPWT Discharge Plan: LTAC Physician Review: Patient Assessed, Agree with Above Assessment and Plan
[2019-01-06] MEDS: HYDROCODONE/APAP 10/325 TAB PO PRN (12:09)
--- NOTE | 2019-01-06 14:04 | P.PN ---
Subjective Date of Service: 01/06/19 Chief Complaint: Left foot wound Patient seen and examined at bedside. No family at bedside. Chart reviewed and case discussed with nursing staff. Doing better. No events noted overnight Review of Systems 10-point ROS is otherwise unremarkable Physical Examination - Vital Signs Temperature: 97.6 F Blood Pressure: 169/81 Pulse: 74 Respirations: 20 Pulse Ox (%): 99 - Physical Exam General: Alert, In no apparent distress HEENT: Atraumatic, PERRLA, EOMI Neck: Supple, JVD not distended Respiratory: Clear to auscultation bilaterally, Normal air movement Cardiovascular: Regular rate/rhythm, Normal S1 S2 Gastrointestinal: Normal bowel sounds, No tenderness Musculoskeletal: Tenderness Integumentary: Diabetic ulcer (Negative pressure wound vac in place, left foot. ) Neurological: Normal speech, Normal tone, Normal affect - Studies Microbiology Data (last 24 hrs): 01/05/19 05:15 Wound - Left Foot Gram Stain - Final Assessment And Plan - Plan 58-year-old male with: Acute left lower extremity cellulitis with involvement of the foot. s/p bedside debridement and negative pressure wound vac placement. -X-ray reveals changes of osteomyelitis and possible free air. This is likely due to recent surgery. MRI of the foot consistent with osteomyelitis. -continue broad-spectrum IV antibiotics. cultures pending, negative so far. -Dr. Mcfadden with Podiatry has been consulted, recommendations appreciated. -Patient will need long-term IV antibiotics. Will continue with broad-spectrum vancomycin/cefepime. -pending PICC line placement, along with Ltac for further hyperbaric treatment as well as IV antibiotics. Social work on board Diabetes mellitus type 2, insulin requiring with hyperglycemia. -Last hemoglobin A1c from October 26 was 12.6%. -We will adjust insulin dose, start on sliding scale insulin, monitor blood glucose levels. Essential hypertension. -We will continue home medications Seizure disorder. -We will continue Depakote. Peripheral vascular disease. Mixed hyperlipidemia. We will continue home medications. Bipolar disorder. Nicotine dependence with cigarette smoking. Counseled for less than 10 minutes. Deep vein thrombosis prophylaxis with Lovenox. Plan: Continue broad-spectrum IV antibiotics. He will require long-term IV antibiotics and hyperbaric treatment. Social work on board for Ltac placement. Physician Review: Patient Assessed, Agree with Above Assessment and Plan
[2019-01-06 18:46] VITALS: BP 162/74; TEMP 97.1
--- NOTE | 2019-01-06 18:56 | P.DS ---
Admission Date: 01/04/19 Discharge Date: 01/06/19 Disposition: [facility] Discharge Condition: FAIR Reason for Admission: Left foot wound Consultations: Podiatry Procedures: Bedside debridement with wound VAC placement Brief History of Present Illness: Patient is a 58-year-old male with past medical history of diabetes, hypertension, seizure disorder, bipolar disorder, peripheral vascular disease, history of osteomyelitis, hyperlipidemia, smoking, who has had previous left great toe amputation, who was recently admitted to the hospital on 12/11/2018, had surgery done by Dr. Balbuena, comes back in for follow[facility], found to have worsening cellulitis, foul-smelling odor , therefore was referred to the hospital for direct admission. Patient does report redness, swelling of the left lower extremity, and wound with tendon exposure. His symptoms are constant, moderate, progressively worsening. He admits that his blood sugars are not well controlled, usually run in the 200s to 300s. States that he does take his 70/30 insulin. When seen on the floor, he was awake, alert, and oriented x3, in some mild distress. Hospital Course: Patient was admitted for: Acute left lower extremity cellulitis with involvement of the foot. Podiatry was consulted. He underwent bedside debridement and negative pressure wound vac placement. -X-ray revealed changes of osteomyelitis and possible free air. This is likely due to recent surgery. MRI of the foot consistent with osteomyelitis. -he was started on broad-spectrum IV antibiotics. -Patient will need long-term IV antibiotics. Social work was consulted for long -term acute care placement. He was accepted at [facility]. A PICC line will be placed once he is transferred to the long-term acute care facility. He will need to continue with broad-spectrum vancomycin/cefepime for 6 weeks along with hyperbaric treatment. Diabetes mellitus type 2, insulin requiring with hyperglycemia. Essential hypertension. Seizure disorder. Peripheral vascular disease. Mixed hyperlipidemia. Bipolar disorder. Nicotine dependence with cigarette smoking. He otherwise remained stable throughout the stay. He was discharged to [facility] for long-term IV antibiotics for 6 weeks along with hyperbaric treatment. He will need a PICC line placement once he is at the facility Vital Signs/Physical Exam: Temp Pulse Resp BP Pulse Ox 97.1 F 85 20 162/74 H 98 01/06/19 16:00 01/06/19 16:00 01/06/19 16:00 01/06/19 16:00 01/06/19 16:00 Laboratory Data at Discharge: WBC 6.0 K/uL (4.3-10.9) D 01/05/19 05:39 Hgb 8.6 g/dL (13.6-17.9) L 01/05/19 05:39 Hct 25.0 % (39.6-49.0) L 01/05/19 05:39 Plt Count 277 K/uL (152-406) 01/05/19 05:39 Sodium 137 mmol/L (136-145) 01/05/19 05:39 Potassium 4.1 mmol/L (3.5-5.1) 01/05/19 05:39 BUN 19 mg/dL (7-18) H 01/05/19 05:39 Creatinine 1.01 mg/dL (0.55-1.3) 01/05/19 05:39 Glucose 102 mg/dL (74-106) 01/05/19 05:39 Home Medications: Collagenase [Santyl Ointment*] 1 appl TOP DAILY #1 tube 12/14/18 Dextroamphetamine/Amphetamine [Adderall 30 mg Tablet] 30 mg PO BID 12/14/18 Divalproex ER [Depakote *ER] 500 mg PO BEDTIME 12/14/18 Hydrocodone/Acetaminophen [[place] 10-325 Tablet] 2 tab PO TID PRN 12/14/18 Insulin NPH Hum/Reg Insulin Hm [Novolin 70-30 Flexpen] 45 units SQ BID 12/14/18 Liraglutide [Victoza 2-Reid] 1.8 mg SQ DAILY 12/14/18 Losartan Potassium [Cozaar*] 50 mg PO DAILY 12/14/18 Metoprolol Tartrate 50 mg PO BID 12/14/18 clonazePAM [Clonazepam] 1 mg PO TID PRN 12/14/18 Apixaban [Eliquis] 5 mg PO BID 01/04/19 CEFEPIME/SWI 2gm [Maxipime 2 gm/20 ml Swi Ivp] 2 gm IV Q12HR 42 Days syr Vancomycin HCl in 5 % Dextrose [Vancomycin 1.75 Gram/500Ml-D5w] 1.75 gm IV Q18H 42 Days plast..bag 01/06/19 New Medications: CEFEPIME/SWI 2gm [Maxipime 2 gm/20 ml Swi Ivp] 2 gm IV Q12HR 42 Days syr Vancomycin HCl in 5 % Dextrose [Vancomycin 1.75 Gram/500Ml-D5w] 1.75 gm IV Q18H 42 Days plast..bag Diet: ADA Activity: Ad samantha Followup: Jesus Mcfadden JR, DPM [ASSOCIATE-ACTIVE - CAN ADMIT] -
== END 2019-01-06 17:35 | DRG 540 ==
LOC: 2ND 10:08
PROVIDERS: ADMIT Family Medicine; ATTEND Family Medicine
DX: M86.9 Osteomyelitis, unspecified (principal); L03.116 Cellulitis of left lower limb; E11.69 Type 2 diabetes mellitus with other specified complication; E11.65 Type 2 diabetes mellitus with hyperglycemia; I10 Essential (primary) hypertension; G40.909 Epilepsy, unspecified, not intractable, without status epilepticus; E78.2 Mixed hyperlipidemia; I73.9 Peripheral vascular disease, unspecified; F17.210 Nicotine dependence, cigarettes, uncomplicated; Z89.412 Acquired absence of left great toe
CPT/HCPCS: 11042; 11045; 36415; 71045; 80048; 80202; 82962; 85025; 86140; 87040; 87070; 87077; 87186; 87205; 93005; 94760; J0692; J1170; J2270; J3590; J7030

== ENCOUNTER 2019-03-01 00:06 | Emergency (ER) | payer OTHER ==
[2019-03-01 01:04] LABS: Absolute Lymphocytes (CBC) 1.8 K/uL (0.7-4.9); Basophils % 0.3 % (0-1.3); Hematocrit 29.1 % (39.6-49.0); Lymphocytes % 28.8 % (15.3-44.8); MPV 8.7 fL (7.6-11.3); RBC Red Blood Cell Count 3.37 M/uL (4.33-5.43)
[2019-03-01 01:08] LABS: Protime INR 1.45
[2019-03-01 01:30] LABS: ALT/SGPT 40 U/L (12-78); AST/SGOT 154 U/L (15-37); Albumin 3.4 g/dL (3.4-5.0); Alkaline Phosphatase 111 U/L (45-117); BUN Blood Urea Nitrogen 65 mg/dL (7-18); Bicarbonate 24 mmol/L (21-32); Bilirubin Direct 0.1 mg/dL (0-0.2); Bilirubin Total 0.5 mg/dL (0.2-1.0); Glucose Level 66 mg/dL (74-106); Potassium 4.3 mmol/L (3.5-5.1); Protein, Total 8.1 g/dL (6.4-8.2); Sodium Level 142 mmol/L (136-145)
[2019-03-01 02:21] LABS: Barbiturates NEGATIVE (NEGATIVE); Benzodiazepines NEGATIVE (NEGATIVE); Cocaine NEGATIVE (NEGATIVE); METHAMPHETAM POSITIVE (NEGATIVE); Methadone NEGATIVE (NEGATIVE); Opiates POSITIVE (NEGATIVE); Phencyclidine NEGATIVE (NEGATIVE); THC Cannibis NEGATIVE (NEGATIVE)
[2019-03-01 02:27] LABS: Urine Blood 2+ (NEG); Urine Glucose NEGATIVE (NEG); Urine Protein 3+ (NEG); Urine Specific Gravity >1.030 (1.005-1.030)
[2019-03-01] MEDS ORDERED: D50W 25 GM/50 ML SYRINGE IV ONE (02:50)
[2019-03-01] MEDS ORDERED: NA CHLORIDE 0.9% 1,000 ML ONE ×2 (02:50→03:25)
--- NOTE | 2019-03-01 03:59 | EDPHYS ---
Physician Documentation [facility] Name: Gasper Fry Age: 59 yrs Sex: Male : 1960 Arrival Date: 03/01/2019 Time: 00:19 Bed 14 Private MD: ED Physician Adrián Ahumada HPI: 03/01 00:45 This 59 yrs old Male presents to ER via EMS with complaints of altered mental pm1 status. 00:45 The patient presents with decreased mental status. Onset: The symptoms/episode pm1 began/occurred today. Possible causes: possible Adderall overdose. Associated signs and symptoms: The patient has no apparent associated signs or symptoms, Pertinent negatives: chest pain, shortness of breath, vertigo. 00:45 Current symptoms: In the emergency department the patient's symptoms chronic foot pain. pm1 patient alert and oriented to person, place and situation. Patient's baseline: Neuro: alert and fully oriented, Motor: no deficits. Patient at skilled nursing and concerned that he might have overdosed on his Adderall, 18 pills missing, causing altered mental status. Historical: - Allergies: 00:27 Haldol (Anaphylaxis); jd3 00:27 Narcan (Anaphylaxis); jd3 - Home Meds: 00:27 Adderall XR Oral [Active]; Cogentin Oral [Active]; Glucophage Oral [Active]; Klonopin jd3 Oral [Active]; Novolin 70/30 [place] Sub-Q [Active]; Risperdal Oral [Active]; Tramadol Oral [Active]; - PMHx: 00:27 Hypertension; Anxiety; ADD/ADHD; Bipolar disorder; Cellulitis; Chronic pain; CVA; jd3 Diabetes - IDDM; neuropathy; Seizures; - PSHx: 00:27 Knee - Right; back; Left great toe - amputation; Eye - Right; neck; jd3 - Immunization history:: Adult Immunizations up to date. - Social history:: Smoking status: Patient/guardian denies using tobacco, the patient reports quitting approximately 0.5 years ago. - Ebola Screening: : Patient negative for fever greater than or equal to 101.5 degrees Fahrenheit, and additional compatible Ebola Virus Disease symptoms. ROS: 00:45 Constitutional: Negative for fever, chills, and weight loss, Eyes: Negative for injury, pm1 pain, redness, and discharge, ENT: Negative for injury, pain, and discharge, Neck: Negative for injury, pain, and swelling, Cardiovascular: Negative for chest pain, palpitations, and edema, Respiratory: Negative for shortness of breath, cough, wheezing, and pleuritic chest pain, Abdomen/GI: Negative for abdominal pain, nausea, vomiting, diarrhea, and constipation, Back: Negative for injury and pain. 00:45 Skin: Negative for injury, rash, and discoloration, Neuro: Negative for headache, weakness, numbness, tingling, and seizure. 00:45 MS/extremity: Positive for pain, of the left foot and right foot. Exam: 00:45 Constitutional: This is a well developed, well nourished patient who is awake, alert, pm1 and in no acute distress. Head/Face: Normocephalic, atraumatic. Eyes: Pupils equal round and reactive to light, extra-ocular motions intact. Lids and lashes normal. Conjunctiva and sclera are non-icteric and not injected. Cornea within normal limits. Periorbital areas with no swelling, redness, or edema. ENT: Nares patent. No nasal discharge, no septal abnormalities noted. Tympanic membranes are normal and external auditory canals are clear. Oropharynx with no redness, swelling, or masses, exudates, or evidence of obstruction, uvula midline. Mucous membranes moist. Neck: Trachea midline, no thyromegaly or masses palpated, and no cervical lymphadenopathy. Supple, full range of motion without nuchal rigidity, or vertebral point tenderness. No Meningismus. Chest/axilla: Normal chest wall appearance and motion. Nontender with no deformity. No lesions are appreciated. Cardiovascular: Regular rate and rhythm with a normal S1 and S2. No gallops, murmurs, or rubs. Normal PMI, no JVD. No pulse deficits. Respiratory: Lungs have equal breath sounds bilaterally, clear to auscultation and percussion. No rales, rhonchi or wheezes noted. No increased work of breathing, no retractions or nasal flaring. Abdomen/GI: Soft, non-tender, with normal bowel sounds. No distension or tympany. No guarding or rebound. No evidence of tenderness throughout. Back: No spinal tenderness. No costovertebral tenderness. Full range of motion. Skin: Warm, dry with normal turgor. Normal color with no rashes, no lesions, and no evidence of cellulitis. 00:45 Musculoskeletal/extremity: Extremities: grossly normal except: noted in the dressing to left foot with amputation of left great toe: 00:45 Neuro: Orientation: to person, place, situation, Motor: is normal, moves all fours. Vital Signs: 00:28 BP 133 / 90; Pulse 88; Resp 19 S; Pulse Ox 100% on R/A; Weight 95.25 kg (R); Height 5 jd3 ft. 11 in. (180.34 cm) (R); Pain 10/10; 01:30 BP 119 / 102; Pulse 129; Resp 20; Pulse Ox 99% on R/A; jb4 02:45 BP 110 / 93; Pulse 69; Resp 18; Pulse Ox 94% on R/A; jb4 03:51 BP 115 / 90; Pulse 88; Resp 16; Temp 98.7(TE); Pulse Ox 98% on R/A; jb4 04:41 BP 151 / 90; Pulse 88; Resp 16; Pulse Ox 100% on R/A; jb4 05:30 jb4 00:28 Body Mass Index 29.29 (95.25 kg, 180.34 cm) jd3 05:30 Pt refused further vitals. jb4 MDM: 00:31 Patient medically screened. pm1 03:33 Data reviewed: vital signs. pm1 03:33 Physician consultation: Polo Ignacio DO was contacted at 03:20, regarding admission, pm1 patient's condition, Recommends that patient does not need to be admitted. Give patient additional fluids and follow up labs at skilled nursing. 03:54 Counseling: I had a detailed discussion with the patient and/or guardian regarding: the pm1 historical points, exam findings, and any diagnostic results supporting the discharge/admit diagnosis, lab results, the need for outpatient follow up, Physician at skilled nursing, to return to the emergency department if symptoms worsen or persist or if there are any questions or concerns that arise at home. 03/01 00:32 Order name: Acetaminophen; Complete Time: 02:32 pm1 03/01 00:32 Order name: Basic Metabolic Panel; Complete Time: 02:32 pm1 03/01 00:32 Order name: CBC with Diff; Complete Time: 02:32 pm1 03/01 00:32 Order name: ETOH Level; Complete Time: 02:32 pm03/01 00:32 Order name: Hepatic Function; Complete Time: 02:32 pm03/01 00:32 Order name: PT-INR pm03/01 00:32 Order name: Ptt, Activated pm03/01 00:32 Order name: Salicylate; Complete Time: 02:32 pm03/01 00:32 Order name: Urine Drug Screen; Complete Time: 02:32 pm03/01 02:01 Order name: Urine Dipstick--Ancillary (enter results); Complete Time: 02:32 em1 03/01 03:44 Order name: Glucose, Ancillary Testing; Complete Time: 03:46 EDMS 03/01 00:32 Order name: EKG; Complete Time: 00:35 pm03/01 00:32 Order name: EKG - Nurse/Tech; Complete Time: 00:59 pm03/01 00:32 Order name: IV Saline Lock; Complete Time: 01:00 pm03/01 00:32 Order name: Labs collected and sent; Complete Time: 01:00 pm03/01 00:32 Order name: Urine Dipstick-Ancillary (obtain specimen); Complete Time: 01:59 pm03/01 03:21 Order name: Diet Regular; Complete Time: 03:21 pm1 Administered Medications: 02:56 Drug: NS 0.9% 1000 ml Route: IV; Rate: 1000 ml; Site: right antecubital; jb4 05:20 Follow up: Response: No adverse reaction; IV Status: Completed infusion; IV Intake: jb4 1000ml 02:56 Drug: D50W 50 ml Route: IVP; Site: right antecubital; jb4 03:30 Follow up: Response: No adverse reaction; Blood sugar is elevated jb4 03:34 Drug: NS 0.9% 1000 ml Route: IV; Rate: 1000 ml; Site: right antecubital; jb4 05:21 Follow up: Response: No adverse reaction; IV Status: Completed infusion; IV Intake: jb4 1000ml Disposition: 03/01/19 03:57 Discharged to Home. Impression: Dehydration. - Condition is Stable. - Discharge Instructions: Dehydration, Adult, Rehydration, Adult. - Medication Reconciliation Form, Thank You Letter, Antibiotic Education, Prescription Opioid Use, SBAR form form. - Follow up: Emergency Department; When: As needed; Reason: Worsening of condition. Follow up: Private Physician; When: 2 - 3 days; Reason: Recheck today's complaints, Continuance of care, Re-evaluation by your physician. - Problem is new. - Symptoms have improved. Signatures: Dispatcher [employer] EDMS Clif Arndt NP FLEXIBLE NANNY pm1 Vick Purdy RN RN jb4 Cirilo Castro RN RN jd3 Corrections: (The following items were deleted from the chart) 06:22 03:57 03/01/2019 03:57 Discharged to Home. Impression: Dehydration. Condition is jb4 Stable. Forms are Medication Reconciliation Form, Thank You Letter, Antibiotic Education, Prescription Opioid Use. Follow up: Emergency Department; When: As needed; Reason: Worsening of condition. Follow up: Private Physician; When: 2 - 3 days; Reason: Recheck today's complaints, Continuance of care, Re-evaluation by your physician. Problem is new. Symptoms have improved. pm1
--- NOTE | 2019-03-01 03:59 | ER ---
Nurse's Notes [facility] Name: Gasper Fry Age: 59 yrs Sex: Male : 1960 Arrival Date: 03/01/2019 Time: 00:19 Bed 14 Private MD: Diagnosis: Dehydration Presentation: 03/01 00:19 Presenting complaint: EMS states: "We were called out for a pt acting unlike himself. jd3 The pt is A\\T\\O X 3 and answers questions appropriately, but the nursing staff claims he is acting altered and took to much of his Adderall. The nursing staff reported to us that he was prescribed Adderall 2 days ago and that he was found with an almost empty Adderall bottle this evening." [facility] nursing staff: Dianna: "the pt has been acting different over the past two days with a lot of shouting and not acting himself. He is still alert and oriented, just acting different. he was prescribed Adderall 2 days ago and today we found the pill bottle in his room with 19 pills missing. We just want him checked out and to make sure he didn't take to many and see why he is acting altered.". Transition of care: patient was not received from another setting of care. Onset of symptoms was March 01, 2019. Risk Assessment: Do you want to hurt yourself or someone else? Patient reports no desire to harm self or others. Initial Sepsis Screen: Does the patient meet any 2 criteria? No. Patient's initial sepsis screen is negative. Does the patient have a suspected source of infection? No. Patient's initial sepsis screen is negative. Care prior to arrival: None. 00:19 Method Of Arrival: EMS: [facility] jd3 00:19 Acuity: DARREL 3 jd3 Historical: - Allergies: 00:27 Haldol (Anaphylaxis); jd3 00:27 Narcan (Anaphylaxis); jd3 - Home Meds: 00:27 Adderall XR Oral [Active]; Cogentin Oral [Active]; Glucophage Oral [Active]; Klonopin jd3 Oral [Active]; Novolin 70/30 [place] Sub-Q [Active]; Risperdal Oral [Active]; Tramadol Oral [Active]; - PMHx: 00:27 Hypertension; Anxiety; ADD/ADHD; Bipolar disorder; Cellulitis; Chronic pain; CVA; jd3 Diabetes - IDDM; neuropathy; Seizures; - PSHx: 00:27 Knee - Right; back; Left great toe - amputation; Eye - Right; neck; jd3 - Immunization history:: Adult Immunizations up to date. - Social history:: Smoking status: Patient/guardian denies using tobacco, the patient reports quitting approximately 0.5 years ago. - Ebola Screening: : Patient negative for fever greater than or equal to 101.5 degrees Fahrenheit, and additional compatible Ebola Virus Disease symptoms. Screenin:29 Abuse screen: Denies threats or abuse. Nutritional screening: No deficits noted. jd3 Tuberculosis screening: No symptoms or risk factors identified. Fall Risk Ambulatory Aid- None/Bed Rest/Nurse Assist (0 pts). Gait- Normal/Bed Rest/Wheelchair (0 pts) Mental Status- Oriented to own ability (0 pts). Total Martínez Fall Scale indicates No Risk (0-24 pts). Assessment: 00:30 General: Appears in no apparent distress. uncomfortable, Behavior is cooperative, jb4 agitated, Pt reports being in pain and that the care givers at [facility] are stealing his medications and not giving him his pain medication. Fentanyl patch noted to the left upper chest.. Pain: Complains of pain in right foot and left foot Pain does not radiate. Pain currently is 10 out of 10 on a pain scale. Quality of pain is described as stabbing. Neuro: Level of Consciousness is awake, alert, obeys commands, Oriented to person, place, time, situation. Cardiovascular: Patient's skin is warm and dry. Respiratory: Airway is patent Respiratory effort is even, unlabored, Respiratory pattern is regular, symmetrical. GI: No deficits noted. No signs and/or symptoms were reported involving the gastrointestinal system. : No deficits noted. No signs and/or symptoms were reported regarding the genitourinary system. EENT:. Derm: Skin is intact, Skin is pink, warm \\T\\ dry. Musculoskeletal: Circulation, motion, and sensation intact. 01:30 Reassessment: Patient appears in no apparent distress at this time. No changes from jb4 previously documented assessment. Patient and/or family updated on plan of care and expected duration. Pain level reassessed. 02:30 Reassessment: Patient appears in no apparent distress at this time. No changes from jb4 previously documented assessment. Patient and/or family updated on plan of care and expected duration. Pain level reassessed. Patient is alert, oriented x 3, equal unlabored respirations, skin warm/dry/pink. 03:51 Reassessment: Patient appears in no apparent distress at this time. Patient and/or jb4 family updated on plan of care and expected duration. Pain level reassessed. Patient is alert, oriented x 3, equal unlabored respirations, skin warm/dry/pink. D/c pending completion of fluids. 05:00 Reassessment: Patient appears in no apparent distress at this time. Patient and/or jb4 family updated on plan of care and expected duration. Pain level reassessed. Patient is alert, oriented x 3, equal unlabored respirations, skin warm/dry/pink. 05:32 Reassessment: attempted to call reports, was informed that [facility] was instructed [facility] not to receive the patient back until their DON arrived at 7am and was able to talk to us. 06:18 Reassessment: Patient appears in no apparent distress at this time. Patient and/or jb4 family updated on plan of care and expected duration. Pain level reassessed. Patient is alert, oriented x 3, equal unlabored respirations, skin warm/dry/pink. PT left ED, discharged. Verbalized understanding of d/c and follow up instruction's. Asked to wait until he could be transported back to [facility]. PT states" I am leaving. Y'all are not helping me." informed a cab could be called to take him back to [facility]. Pt states " I am leaving. I am not going back over there. They steal from me.". [employer] notified. Pt left ED with a steady gait. Vital Signs: 00:28 BP 133 / 90; Pulse 88; Resp 19 S; Pulse Ox 100% on R/A; Weight 95.25 kg (R); Height 5 jd3 ft. 11 in. (180.34 cm) (R); Pain 10/10; 01:30 BP 119 / 102; Pulse 129; Resp 20; Pulse Ox 99% on R/A; jb4 02:45 BP 110 / 93; Pulse 69; Resp 18; Pulse Ox 94% on R/A; jb4 03:51 BP 115 / 90; Pulse 88; Resp 16; Temp 98.7(TE); Pulse Ox 98% on R/A; jb4 04:41 BP 151 / 90; Pulse 88; Resp 16; Pulse Ox 100% on R/A; jb4 05:30 jb4 00:28 Body Mass Index 29.29 (95.25 kg, 180.34 cm) jd3 05:30 Pt refused further vitals. jb4 ED Course: 00:19 Patient arrived in ED. jd3 00:21 Clif Arndt NP is PHCP. pm1 00:21 Adrián Ahumada MD is Attending Physician. pm1 00:25 Triage completed. jd3 00:28 Arm band placed on. jd3 00:29 Patient has correct armband on for positive identification. Bed in low position. Call jd3 light in reach. Side rails up X 1. Adult w/ patient. 00:59 Vick Purdy, RN is Primary Nurse. jb4 06:18 No provider procedures requiring assistance completed. IV discontinued, intact, jb4 bleeding controlled, No redness/swelling at site. Pressure dressing applied. Administered Medications: 02:56 Drug: NS 0.9% 1000 ml Route: IV; Rate: 1000 ml; Site: right antecubital; jb4 05:20 Follow up: Response: No adverse reaction; IV Status: Completed infusion; IV Intake: jb4 1000ml 02:56 Drug: D50W 50 ml Route: IVP; Site: right antecubital; jb4 03:30 Follow up: Response: No adverse reaction; Blood sugar is elevated jb4 03:34 Drug: NS 0.9% 1000 ml Route: IV; Rate: 1000 ml; Site: right antecubital; jb4 05:21 Follow up: Response: No adverse reaction; IV Status: Completed infusion; IV Intake: jb4 1000ml Intake: 05:20 IV: 1000ml; Total: 1000ml. jb4 05:21 IV: 1000ml; Total: 2000ml. jb4 Outcome: 03:57 Discharge ordered by . pm1 06:18 Discharged to home ambulatory. jb4 06:18 Condition: stable 06:18 Discharge instructions given to patient, Instructed on discharge instructions, follow up and referral plans. Demonstrated understanding of instructions, follow-up care. 06:22 Patient left the ED. jb4 Signatures: Clif Arndt NP GREASE MAN pm1 Vick Purdy, RN RN jb4 Cirilo Castro, RN RN jd3 Corrections: (The following items were deleted from the chart) 04:08 03:51 BP 115 / 90; Pulse 88bpm; Resp 16bpm; Pulse Ox 98% RA; jb4 jb4 05:34 03:51 Reassessment: Patient appears in no apparent distress at this time. Patient jb4 and/or family updated on plan of care and expected duration. Pain level reassessed. Patient is alert, oriented x 3, equal unlabored respirations, skin warm/dry/pink. jb4
[2019-03-01 06:31] VITALS: TEMP 98.7
[2019-03-01 06:32] VITALS: BP 151/90; O2SAT 100
--- NOTE | 2019-03-01 13:36 | EKG ---
Test Date: 2019-03-01 Test Time: 01:22:32 Draughtsman: BARRY MEASUREMENT RESULTS: Intervals: Rate: 98 WI: 176 QRSD: 98 QT: 380 QTc: 485 [place]: P: 44 WI: 176 QRS: -31 T: 16 INTERPRETIVE STATEMENTS: Normal sinus rhythm Left axis deviation Prolonged QT Abnormal ECG Compared to ECG 01/04/2019 11:24:33 Left-axis deviation now present Prolonged QT interval now present Electronically Signed On 03-01-19 13:35:31 CDT by Dino Rios
== END 2019-03-01 06:22 | disposition home or self-care (01) ==
LOC: ER 00:06
DX: E86.0 Dehydration (principal); I10 Essential (primary) hypertension; E11.9 Type 2 diabetes mellitus without complications; F41.9 Anxiety disorder, unspecified; F31.9 Bipolar disorder, unspecified; F90.9 Attention-deficit hyperactivity disorder, unspecified type; G40.909 Epilepsy, unspecified, not intractable, without status epilepticus; Z88.5 Allergy status to narcotic agent
CPT/HCPCS: 96361; 93005; 85025; 80048; 36415; 80320; 80329 ×2; 85610; 82962; 80076; 80307 ×8; 85730; 81003; 96374; 99283; J7030 ×2

== ENCOUNTER 2019-03-28 18:34 | Observation (INO) | payer OTHER ==
[2019-03-28] MEDS ORDERED: NA CHLORIDE 0.9% 1,000 ML ONE (20:06)
--- NOTE | 2019-03-28 21:06 | RAD REPORT ---
EXAM DESCRIPTION: Kaylene Single View03/28/2019 8:25 pm CLINICAL HISTORY: cough COMPARISON: December 2018 FINDINGS: The lungs appear clear of acute infiltrate. The heart is normal size IMPRESSION: No acute abnormalities displayed
--- NOTE | 2019-03-28 21:06 | RAD REPORT ---
EXAM DESCRIPTION: USExtrem Venous W Compress Bil03/28/2019 8:47 pm CLINICAL HISTORY: Leg pain COMPARISON: December 2018 FINDINGS: The right common femoral, superficial femoral, popliteal and posterior tibial veins bilate rally are compressible and demonstrate augmentation. Extensive thrombus throughout the left superficial femoral and left popliteal veins. Little signal a nd flow is visualized. Left common femoral vein is patent IMPRESSION: Progression in the thrombus which involves most of the left superficial femoral and left popliteal veins since the prior exam.
[2019-03-28 21:07] LABS: Absolute Lymphocytes (CBC) 1.3 K/uL (0.7-4.9); Basophils % 0.4 % (0-1.3); Hematocrit 38.9 % (39.6-49.0); MPV 8.5 fL (7.6-11.3); RBC Red Blood Cell Count 4.44 M/uL (4.33-5.43)
[2019-03-28 21:13] LABS: Protime INR 1.02
[2019-03-28 21:26] LABS: ALT/SGPT 34 U/L (12-78); AST/SGOT 21 U/L (15-37); Albumin 3.4 g/dL (3.4-5.0); Alkaline Phosphatase 101 U/L (45-117); BUN Blood Urea Nitrogen 22 mg/dL (7-18); Bicarbonate 29 mmol/L (21-32); Bilirubin Direct < 0.1 mg/dL (0-0.2); Bilirubin Total 0.3 mg/dL (0.2-1.0); Glucose Level 232 mg/dL (74-106); Magnesium 1.7 mg/dL (1.8-2.4); NT PRO-BNP 682 pg/mL (<125); Protein, Total 7.8 g/dL (6.4-8.2); Sodium Level 142 mmol/L (136-145); Troponin (Emerg Dept Use Only) < 0.02 ng/mL (0.0-0.045)
[2019-03-28] MEDS ORDERED: HEPARIN/D5W 25,000 UNIT/500 ML BAG IV ONE (21:29)
[2019-03-28] MEDS ORDERED: ONDANSETRON 4 MG/2 ML VIAL ONE (21:29)
[2019-03-28] MEDS ORDERED: HEPARIN 5000 UNIT/ML 1 ML VIAL ONE (21:29)
[2019-03-28] MEDS ORDERED: MORPHINE 4 MG/ML SYR ONE (21:29)
--- NOTE | 2019-03-28 21:31 | ER ---
Nurse's Notes [facility] Name: Gasper Fry Age: 59 yrs Sex: Male : 1960 Arrival Date: 03/28/2019 Time: 18:37 Bed 7 Private MD: Diagnosis: Unspecified kidney failure;Dyspnea;Acute embolism and thrombosis of deep veins of lower extremity;Anemia, unspecified;Type 1 diabetes mellitus;Hypomagnesemia Presentation: 03/28 18:43 Presenting complaint: SOB and bilateral leg pain 12/16. Pt reports he was seen at [facility] yesterday, told he has blood clots in his left leg and needs surgery, he got scared and left AMA. Transition of care: patient was not received from another setting of care. Onset of symptoms was March 28, 2019. Risk Assessment: Do you want to hurt yourself or someone else? Patient reports no desire to harm self or others. Initial Sepsis Screen: Does the patient meet any 2 criteria? No. Patient's initial sepsis screen is negative. Does the patient have a suspected source of infection? No. Patient's initial sepsis screen is negative. Care prior to arrival: None. 18:43 Method Of Arrival: Ambulatory 18:43 Acuity: DARREL 3 hb Historical: - Allergies: 18:45 Haldol (Anaphylaxis); hb 18:45 Narcan (Anaphylaxis); hb - Home Meds: 19:31 Adderall XR Oral [Active]; Cogentin Oral [Active]; Glucophage Oral [Active]; Klonopin lp1 Oral [Active]; Novolin 70/30 [place] Sub-Q [Active]; Risperdal Oral [Active]; Tramadol Oral [Active]; - PMHx: 19:31 ADD/ADHD; Anxiety; Bipolar disorder; Cellulitis; Chronic pain; CVA; Diabetes - IDDM; lp1 Hypertension; neuropathy; Seizures; - PSHx: 19:32 L great toe amputation; R knee surgery; R eye surgery; lp1 - Immunization history:: Adult Immunizations up to date. - Social history:: Smoking status: Patient/guardian denies using tobacco. - Ebola Screening: : No symptoms or risks identified at this time. Screenin:30 Abuse screen: Denies threats or abuse. Denies injuries from another. Nutritional lp1 screening: No deficits noted. Tuberculosis screening: No symptoms or risk factors identified. Fall Risk None identified. Assessment: 19:26 General: Appears in no apparent distress. comfortable, Behavior is calm, cooperative, lp1 appropriate for age. Pain: Complains of pain in left lower leg Pain currently is 8 out of 10 on a pain scale. Quality of pain is described as aching. Neuro: Level of Consciousness is awake, alert, obeys commands, Oriented to person, place, situation. Cardiovascular: Patient's skin is warm and dry. Rhythm is sinus rhythm. Respiratory: Reports shortness of breath at rest Airway is patent Respiratory effort is even, unlabored, Breath sounds are clear bilaterally. Onset: The symptoms/episode began/occurred gradually, the patient has mild shortness of breath. GI: Abdomen is non-distended. : No signs and/or symptoms were reported regarding the genitourinary system. EENT: No signs and/or symptoms were reported regarding the EENT system. Derm: Wound noted Other: wound to lateral left foot, healthy pink skin noted, no drainage; Dressed with triple antibiotic ointment, 4x4, tegaderm; left great toe amputation. Musculoskeletal: No deficits noted. 20:28 Reassessment: Ultrasound at bedside. lp1 22:06 Reassessment: Hospitalist at bedside. lp1 22:56 Reassessment: Provider notified of patient complaint of continued pain to left leg; lp1 Verbal order for Dilaudid 1mg IV. 23:17 Reassessment: Attempted to give report, nurse unable to take report. lp1 Vital Signs: 18:45 BP 142 / 90; Pulse 93; Resp 16; Temp 97.8; Pulse Ox 100% on R/A; Pain 7/10; hb 18:45 Weight 99.79 kg; Height 6 ft. (182.88 cm); hb 19:29 BP 166 / 73; Pulse 82; Resp 18; Pulse Ox 100% on R/A; lp1 20:30 BP 191 / 96; Pulse 80; Resp 15; Pulse Ox 97% on R/A; lp1 21:23 Weight 97.1 kg (M); lp1 21:30 BP 157 / 90; Pulse 77; Resp 14; Pulse Ox 98% on R/A; lp1 22:30 BP 178 / 89; Pulse 78; Resp 15; Pulse Ox 97% on R/A; lp1 23:00 BP 171 / 91; Pulse 71; Resp 13; Pulse Ox 96% on R/A; Pain 7/10; lp1 23:32 BP 166 / 87; Pulse 68; Resp 13; Pulse Ox 97% on R/A; lp1 21:23 Body Mass Index 29.03 (97.10 kg, 182.88 cm) lp1 ED Course: 18:37 Patient arrived in ED. as 18:45 Triage completed. hb 18:45 Arm band placed on. hb 19:26 Barbara Conway, MALU is Primary Nurse. lp1 19:31 Lance Ponce MD is Attending Physician. jerome 20:10 Patient has correct armband on for positive identification. Placed in gown. Cardiac lp1 monitor on. Pulse ox on. NIBP on. 20:26 XRAY Chest (1 view) In Process Unspecified. EDMS 20:47 US Extremity Venous W Compression Bud In Process Unspecified. EDMS 21:04 Inserted saline lock: 20 gauge in right antecubital area, using aseptic technique. oe Blood collected. 21:25 Emmanuel Bland is Hospitalizing Provider. jerome 22:25 Missed attempt(s): 22 gauge Bleeding controlled, band aid applied, catheter tip intact. oe 22:25 Inserted saline lock: 20 gauge in left forearm, using aseptic technique. oe 23:17 No provider procedures requiring assistance completed. Patient admitted, IV remains in lp1 place. Administered Medications: 21:02 Drug: NS 0.9% 1000 ml Route: IV; Rate: 125 ml/hr; Site: right antecubital; lp1 23:53 Follow up: IV Status: Infusion continued upon admission lp1 21:35 Drug: morphine 4 mg Route: IVP; Site: right antecubital; lp1 22:55 Follow up: Response: No change in condition; Pain is unchanged, physician notified; lp1 RASS: Alert and Calm (0) 21:35 Drug: Zofran 4 mg Route: IVP; Site: right antecubital; lp1 22:56 Follow up: Response: No adverse reaction lp1 21:40 Drug: Heparin (DVT/PE- Bolus per protocol) - HEParin 80 units/kg {Co-Signature: susy lp1 (Kristen Bradshaw RN).} Route: IVP; Site: right antecubital; 22:55 Follow up: Response: No adverse reaction lp1 21:40 Drug: Heparin (MO Drip) 12 units/kg/hr - (HEParin 40954 units, D5W 500 ml) lp1 {Co-Signature: susy (Kristen Bradshaw RN).} {Note: verbal order per Provider, 18 units/kg/hr administered.} Route: IV; Rate: calculated rate; Site: right antecubital; 23:53 Follow up: IV Status: Infusion continued upon admission lp1 22:55 Drug: Magnesium Sulfate 1 grams Route: IVPB; Infused Over: 1 hrs; Site: left forearm; lp1 23:52 Follow up: IV Status: Completed infusion; IV Intake: 100ml lp1 22:55 Drug: Pepcid 20 mg Route: IVP; Site: left forearm; lp1 23:53 Follow up: Response: No adverse reaction lp1 23:00 Drug: Dilaudid 1 mg {Note: RASS 0.} Route: IVP; Site: right antecubital; lp1 23:53 Follow up: Response: Marked relief of symptoms; RASS: Alert and Calm (0) lp1 Intake: 23:52 IV: 100ml; Total: 100ml. lp1 Outcome: 21:30 Decision to Hospitalize by Provider. jerome 23:18 Condition: stable lp1 23:18 Instructed on the need for admit. 23:33 Admitted to Tele accompanied by tech, via stretcher, room 422, with chart, Report lp1 called to Amada Mishra RN 23:54 Patient left the ED. lp1 Signatures: Dispatcher [employer] EDLance Cummins MD MD cha Martinez, Amelia as Pena, Laura, RN RN lp1 Jolene Reyna RN RN Kris Villalpando RN, ea Corrections: (The following items were deleted from the chart) 23:18 19:26 Cardiovascular: Patient's skin is warm and dry. lp1 lp1 23:18 19:26 Respiratory: Reports shortness of breath at rest Airway is patent Respiratory lp1 effort is even, unlabored, Breath sounds are clear bilaterally. lp1
--- NOTE | 2019-03-28 21:31 | EDPHYS ---
Physician Documentation [facility] Name: Gasper Fry Age: 59 yrs Sex: Male : 1960 Arrival Date: 03/28/2019 Time: 18:37 Bed 7 Private MD: ED Physician Lance Ponce HPI: 03/28 20:04 This 59 yrs old Male presents to ER via Ambulatory with complaints of jerome Shortness Of Breath. 20:04 The patient has shortness of breath at rest. Onset: The symptoms/episode began/occurred jerome 3 day(s) ago. The patient's shortness of breath has no apparent modifying factors. Severity of symptoms: At their worst the symptoms were mild in the emergency department the symptoms are unchanged. Historical: - Allergies: 18:45 Haldol (Anaphylaxis); hb 18:45 Narcan (Anaphylaxis); hb - Home Meds: 19:31 Adderall XR Oral [Active]; Cogentin Oral [Active]; Glucophage Oral [Active]; Klonopin lp1 Oral [Active]; Novolin 70/30 [place] Sub-Q [Active]; Risperdal Oral [Active]; Tramadol Oral [Active]; - PMHx: 19:31 ADD/ADHD; Anxiety; Bipolar disorder; Cellulitis; Chronic pain; CVA; Diabetes - IDDM; lp1 Hypertension; neuropathy; Seizures; - PSHx: 19:32 L great toe amputation; R knee surgery; R eye surgery; lp1 - Immunization history:: Adult Immunizations up to date. - Social history:: Smoking status: Patient/guardian denies using tobacco. - Ebola Screening: : No symptoms or risks identified at this time. ROS: 20:05 Constitutional: Negative for fever, chills, and weight loss, Eyes: Negative for injury, jerome pain, redness, and discharge, ENT: Negative for injury, pain, and discharge, Neck: Negative for injury, pain, and swelling, Cardiovascular: Negative for chest pain, palpitations, and edema, Abdomen/GI: Negative for abdominal pain, nausea, vomiting, diarrhea, and constipation, Back: Negative for injury and pain, : Negative for injury, bleeding, discharge, and swelling, Skin: Negative for injury, rash, and discoloration, Neuro: Negative for headache, weakness, numbness, tingling, and seizure, Psych: Negative for depression, anxiety, suicide ideation, homicidal ideation, and hallucinations, Allergy/Immunology: Negative for hives, rash, and allergies, Endocrine: Negative for neck swelling, polydipsia, polyuria, polyphagia, and marked weight changes, Hematologic/Lymphatic: Negative for swollen nodes, abnormal bleeding, and unusual bruising. 20:05 Respiratory: Positive for cough, shortness of breath, at rest. 20:05 MS/extremity: Positive for pain, tenderness, of the left leg. Exam: 20:05 Constitutional: This is a well developed, well nourished patient who is awake, alert, jerome and in no acute distress. Head/Face: Normocephalic, atraumatic. Eyes: Pupils equal round and reactive to light, extra-ocular motions intact. Lids and lashes normal. Conjunctiva and sclera are non-icteric and not injected. Cornea within normal limits. Periorbital areas with no swelling, redness, or edema. ENT: Nares patent. No nasal discharge, no septal abnormalities noted. Tympanic membranes are normal and external auditory canals are clear. Oropharynx with no redness, swelling, or masses, exudates, or evidence of obstruction, uvula midline. Mucous membranes moist. Neck: Trachea midline, no thyromegaly or masses palpated, and no cervical lymphadenopathy. Supple, full range of motion without nuchal rigidity, or vertebral point tenderness. No Meningismus. Chest/axilla: Normal chest wall appearance and motion. Nontender with no deformity. No lesions are appreciated. Cardiovascular: Regular rate and rhythm with a normal S1 and S2. No gallops, murmurs, or rubs. Normal PMI, no JVD. No pulse deficits. Respiratory: Lungs have equal breath sounds bilaterally, clear to auscultation and percussion. No rales, rhonchi or wheezes noted. No increased work of breathing, no retractions or nasal flaring. Abdomen/GI: Soft, non-tender, with normal bowel sounds. No distension or tympany. No guarding or rebound. No evidence of tenderness throughout. Back: No spinal tenderness. No costovertebral tenderness. Full range of motion. Male : Normal genitalia with no discharge or lesions. Neuro: Awake and alert, GCS 15, oriented to person, place, time, and situation. Cranial nerves II-XII grossly intact. Motor strength 5/5 in all extremities. Sensory grossly intact. Cerebellar exam normal. Normal gait. Psych: Awake, alert, with orientation to person, place and time. Behavior, mood, and affect are within normal limits. 20:05 Skin: Appearance: Color: normal in color, Temperature: normal temperature, Moisture: normal moisture, petechiae, not noted, ecchymosis, not noted, diaphoresis is not appreciated. 20:07 Musculoskeletal/extremity: Pulses: noted to be 2+ in the right popliteal artery, right jerome posterior tibial artery, right dorsalis pedis artery, left popliteal artery, left posterior tibial artery and left dorsalis pedis artery, DVT Exam: no swelling, no tenderness, negative Homans' sign noted on exam, no appreciated bluish discoloration, no erythema, no increased warmth, pain. Vital Signs: 18:45 BP 142 / 90; Pulse 93; Resp 16; Temp 97.8; Pulse Ox 100% on R/A; Pain 7/10; hb 18:45 Weight 99.79 kg; Height 6 ft. (182.88 cm); hb 19:29 BP 166 / 73; Pulse 82; Resp 18; Pulse Ox 100% on R/A; lp1 20:30 BP 191 / 96; Pulse 80; Resp 15; Pulse Ox 97% on R/A; lp1 21:23 Weight 97.1 kg (M); lp1 21:30 BP 157 / 90; Pulse 77; Resp 14; Pulse Ox 98% on R/A; lp1 22:30 BP 178 / 89; Pulse 78; Resp 15; Pulse Ox 97% on R/A; lp1 23:00 BP 171 / 91; Pulse 71; Resp 13; Pulse Ox 96% on R/A; Pain 7/10; lp1 23:32 BP 166 / 87; Pulse 68; Resp 13; Pulse Ox 97% on R/A; lp1 21:23 Body Mass Index 29.03 (97.10 kg, 182.88 cm) lp1 MDM: 19:31 [facility] medically screened. [facility] 20:07 Data reviewed: vital signs, nurses notes, lab test result(s), EKG, radiologic studies, [facility] doppler, plain films. 03/28 20:04 Order name: Basic Metabolic Panel; Complete Time: 21:30 [facility] 10/20 20:04 Order name: CBC with Diff; Complete Time: 21:13 [facility] 03/28 20:04 Order name: LFT's; Complete Time: 21:30 [facility] 03/28 20:04 Order name: Magnesium; Complete Time: 21:30 [facility] 03/28 20:04 Order name: NT PRO-BNP; Complete Time: 21:30 [facility] 03/28 20:04 Order name: PT-INR; Complete Time: 21:30 [facility] 03/28 20:04 Order name: Troponin (emerg Dept Use Only); Complete Time: 21:30 [facility] 03/28 20:04 Order name: XRAY Chest (1 view); Complete Time: 21:13 [facility] 03/28 20:04 Order name: US Extremity Venous W Compression Bud; Complete Time: 21:13 [facility] 03/28 21:24 Order name: VQ scan (Nuclear Medicine) [facility] 03/28 21:25 Order name: Type And Screen [facility] 03/28 22:35 Order name: ABO/RH no charge EDMS 03/28 20:04 Order name: EKG; Complete Time: 20:05 [facility] 03/28 20:04 Order name: Cardiac monitoring; Complete Time: 20:11 [facility] 03/28 20:04 Order name: EKG - Nurse/Tech; Complete Time: 20:11 [facility] 03/28 20:04 Order name: IV Saline Lock; Complete Time: 21:03 [facility] 03/28 20:04 Order name: Labs collected and sent; Complete Time: 21:03 [facility] 03/28 20:04 Order name: O2 Per Protocol; Complete Time: 20:11 [facility] 03/28 20:04 Order name: O2 Sat Monitoring; Complete Time: 20:11 [facility] Administered Medications: 21:02 Drug: NS 0.9% 1000 ml Route: IV; Rate: 125 ml/hr; Site: right antecubital; lp1 23:53 Follow up: IV Status: Infusion continued upon admission lp1 21:35 Drug: morphine 4 mg Route: IVP; Site: right antecubital; lp1 22:55 Follow up: Response: No change in condition; Pain is unchanged, physician notified; lp1 RASS: Alert and Calm (0) 21:35 Drug: Zofran 4 mg Route: IVP; Site: right antecubital; lp1 22:56 Follow up: Response: No adverse reaction lp1 21:40 Drug: Heparin (DVT/PE- Bolus per protocol) - HEParin 80 units/kg {Co-Signature: susy lp1 (Kristen Bradshaw RN).} Route: IVP; Site: right antecubital; 22:55 Follow up: Response: No adverse reaction lp1 21:40 Drug: Heparin (MD Drip) 12 units/kg/hr - (HEParin 47019 units, D5W 500 ml) lp1 {Co-Signature: susy (Kristen Bradshaw RN).} {Note: verbal order per Provider, 18 units/kg/hr administered.} Route: IV; Rate: calculated rate; Site: right antecubital; 23:53 Follow up: IV Status: Infusion continued upon admission lp1 22:55 Drug: Magnesium Sulfate 1 grams Route: IVPB; Infused Over: 1 hrs; Site: left forearm; lp1 23:52 Follow up: IV Status: Completed infusion; IV Intake: 100ml lp1 22:55 Drug: Pepcid 20 mg Route: IVP; Site: left forearm; lp1 23:53 Follow up: Response: No adverse reaction lp1 23:00 Drug: Dilaudid 1 mg {Note: RASS 0.} Route: IVP; Site: right antecubital; lp1 23:53 Follow up: Response: Marked relief of symptoms; RASS: Alert and Calm (0) lp1 Disposition: 03/28/19 21:30 Hospitalization ordered by Emmanuel Bland for Inpatient Admission. Preliminary diagnosis are Unspecified kidney failure, Dyspnea, Acute embolism and thrombosis of deep veins of lower extremity, Anemia, unspecified, Type 1 diabetes mellitus, Hypomagnesemia. - Bed requested for Telemetry/MedSurg (Inpatient). - Status is Inpatient Admission. lp1 - Condition is Fair. - Problem is new. - Symptoms have improved. UTI on Admission? No Signatures: Dispatcher [employer] EDLance Cummins MD MD cha Pena, Laura RN MALU [facility] Laura Hodge RN RN Jolene Reyna RN RN Kristen Bradshaw RN, ea Corrections: (The following items were deleted from the chart) 21:33 21:30 Hospitalization Ordered by Emmanuel Bland for Inpatient Admission. Preliminary jerome diagnosis is Unspecified kidney failure; Dyspnea; Acute embolism and thrombosis of deep veins of lower extremity; Anemia, unspecified; Type 1 diabetes mellitus. Bed requested for Telemetry/MedSurg (Inpatient). Status is Inpatient Admission. Condition is Fair. Problem is new. Symptoms have improved. UTI on Admission? No. jerome 23:05 21:33 03/28/2019 21:30 Hospitalization Ordered by Emmanuel Bland for Inpatient cg Admission. Preliminary diagnosis is Unspecified kidney failure; Dyspnea; Acute embolism and thrombosis of deep veins of lower extremity; Anemia, unspecified; Type 1 diabetes mellitus; Hypomagnesemia. Bed requested for Telemetry/MedSurg (Inpatient). Status is Inpatient Admission. Condition is Fair. Problem is new. Symptoms have improved. UTI on Admission? No. [facility] 23:54 23:05 03/28/2019 21:30 Hospitalization Ordered by Emmanuel Bland for Inpatient lp1 Admission. Preliminary diagnosis is Unspecified kidney failure; Dyspnea; Acute embolism and thrombosis of deep veins of lower extremity; Anemia, unspecified; Type 1 diabetes mellitus; Hypomagnesemia. Bed requested for Telemetry/MedSurg (Inpatient). Status is Inpatient Admission. Condition is Fair. Problem is new. Symptoms have improved. UTI on Admission? No. cg
[2019-03-28] MEDS ORDERED: FAMOTIDINE 20 MG/2 ML VIAL IV ONE (21:43)
[2019-03-28] MEDS ORDERED: MAGNESIUM SULFATE 1 gm IVPB 1 GM/100 ML BAG IV ONE (21:43)
[2019-03-28] MEDS ORDERED: HYDROMORPHONE HCL 1 MG/ML INJ ONE (22:57)
--- NOTE | 2019-03-28 23:13 | P.HP ---
Certification for Inpatient Patient admitted to: Inpatient With expected LOS: >2 Midnights Practitioner: I am a practitioner with admitting privileges, knowledge of patient current condition, hospital course, and medical plan of care. Services: Services provided to patient in accordance with Admission requirements found in Title 42 Section 412.3 of the Code of Federal Regulations Patient History Date of Service: 03/29/19 Reason for admission: Shortness of breath and bilateral leg pain History of Present Illness: 59-year-old gentleman with a history of diabetes mellitus, peripheral vascular disease, recently diagnosed DVT of lower extremity about 3 months ago, recently diagnosed osteomyelitis of the left foot and chronic nonhealing wound presented emergency department with a complaint bilateral lower extremity pain and shortness of breath of onset about 1 week ago. Patient was hospitalized in December 2018 for infected left foot wound, diagnosed with osteomyelitis of the left 5th metatarsal head and base of the 5th proximal phalanx. He was discharged with prolonged IV antibiotics-Cefepime and Vanco which the patient said he completed. He also saw Dr. Mcfadden for wound care. His wound has been healing. He was diagnosed with DVT of left lower extremity prior to this and was being treated with Eliquis. Patient has defaulted taking Eliquis for about 1 month. He was hospitalized in [facility] yesterday and was told he will need heparin drip for his DVT. He was also told he still has osteomyelitis involving the left metatarsal and needed his left 5th toe amputated. Patient signed out AMA and felt he would better off in a hospital close to home. He presented to the ED today with a complaint of shortness of breath and bilateral lower extremity pain. Venous Doppler of the lower extremities report progression of the left lower extremity DVT, now involving the superficial femoral vein and popliteal vein. Patient is admitted for further management. Allergies haloperidol [From Haldol] Allergy (Verified 12/11/18 20:38) Anaphylaxis naloxone [From Narcan] Allergy (Verified 12/11/18 20:38) Anaphylaxis - Past Medical/Surgical History Diabetic: Yes -: Diabetes mellitus type 2, insulin-dependent -: Hypertension -: Seizure disorder -: Peripheral vascular disease -: History of osteomyelitis -: Hyperlipidemia -: Bipolar disorder -: Tobacco abuse -: schizophrenia -: History of amputation to the left great toe -: History of blood clots -: seizures -: Neck and back surgery -: Right eye removal -: Right knee surgery -: Bilateral wrist surgery due to suicide attempt -: Left great toe amputation Psychosocial/ Personal History: Patient is . He has 2 children. He lives at home. - Family History Brother -: Hypertension Sister -: Diabetes Father -: Heart disease Notes: heart attack Mother -: Diabetes - Social History Alcohol use: No CD- Drugs: No Caffeine use: Yes Review of Systems Other: General: No fever, no malaise, no unintentional weight loss. Eyes: No eye discharge, Respiratory: No cough. CVS: No chest pain, no palpitation, no lightheadedness. GI: No abdominal pain, no nausea no vomit, no constipation, no diarrhea. Genitourinary: No dysuria, no urinary frequency, no incontinence, no hematuria. Musculoskeletal: No joint pains, or joint swelling. Neurology: No headache, no asymmetric, weakness, no problem with swallowing. Except as documented, all other systems reviewed and negative. Physical Examination - Physical Exam General: Alert, In no apparent distress, Oriented x3 HEENT: Normocephalic, PERRLA, Mucous membr. moist/pink Neck: Supple, JVD not distended, No Thyromegaly Respiratory: Clear to auscultation bilaterally, Normal air movement Cardiovascular: No edema, Normal pulses, Regular rate/rhythm, Normal S1 S2, No murmurs Capillary refill: <2 Seconds Gastrointestinal: Normal bowel sounds, Soft and benign, Non-distended, No tenderness Musculoskeletal: No swelling, Other (Left big toe amputated) Integumentary: Other (Healing wound on the lateral aspect of the dorsum of the left foot) Neurological: Normal strength at 5/5 x4 extr, Cranial nerves 3-12 intact - Studies Laboratory Data (last 24 hrs) 03/28/19 20:53: PT 12.0, INR 1.02 03/28/19 20:53: WBC 4.3, Hgb 13.1 L, Hct 38.9 L, Plt Count 232 03/28/19 20:53: Sodium 142, Potassium 4.0, BUN 22 H, Creatinine 1.36 H, Glucose 232 H, Magnesium 1.7 L, Total Bilirubin 0.3, AST 21, ALT 34, Alkaline Phosphatase 101 Assessment and Plan - Problems (Diagnosis) (1) Deep vein thrombosis (DVT) of left lower extremity Current Visit: Yes Status: Acute Qualifiers: Chronicity: acute (2) Shortness of breath Current Visit: Yes Status: Acute (3) Osteomyelitis of foot Current Visit: Yes Status: Acute (4) Ulcer of left foot Current Visit: Yes Status: Chronic (5) Bipolar disorder Onset Date: 01/02/15 Current Visit: No Status: Chronic Qualifiers: Active/Remission status: remission status unspecified Qualified Code(s): F31.9 - Bipolar disorder, unspecified (6) Diabetes mellitus Onset Date: 04/24/15 Current Visit: No Status: Chronic Qualifiers: Diabetes mellitus type: type 2 Diabetes mellitus intermediate insulin use: with tank terminal gauger use Diabetes mellitus complication status: with neurologic complications Diabetes mellitus complication detail: with polyneuropathy Qualified Code(s): E11.42 - Type 2 diabetes mellitus with diabetic polyneuropathy; Z79.4 - 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 Otherwise V/Q scan. Start Heparin drip Will start IV vancomycin and cefepime General Surgery consult to evaluate the osteomyelitis Pain management. NPH insulin and insulin sliding scale for glucose management. Wound care - Advance Directives Does patient have a Living Will: Yes Does patient have a Durable POA for Healthcare: Yes
[2019-03-28] MEDS ORDERED: ONDANSETRON 4 MG/2 ML VIAL IV PRN (23:35)
[2019-03-28] MEDS ORDERED: ACETAMINOPHEN 500 MG TAB PO PRN (23:35)
[2019-03-28] MEDS ORDERED: NA CHLORIDE 0.9% 1,000 ML IV SCH (23:45)
[2019-03-29] MEDS ORDERED: AMLODIPINE 5 MG TAB PO ONE (00:56)
[2019-03-29] MEDS ORDERED: HYDROCODONE/APAP 5/325 MG TAB PO PRN (00:57)
[2019-03-29 01:00] VITALS: BMI 29.0
[2019-03-29] MEDS ORDERED: HEPARIN/D5W 25,000 UNIT/500 ML BAG IV SCH (01:00)
[2019-03-29] MEDS: INSULIN -REGULAR HUMAN 50 UNIT/0.5 ML ML SQ SCH ×2 (01:17→09:06)
[2019-03-29] MEDS ORDERED: VANCOMYCIN 1 GM/VIAL ONE (01:30)
[2019-03-29] MEDS ORDERED: VANCOMYCIN 500 MG/VIAL ONE (01:31)
[2019-03-29] MEDS ORDERED: NA CHLORIDE 0.9% 500 ML ONE (01:33)
[2019-03-29] MEDS ORDERED: CEFEPIME 1 GM/100 ML BAG IV ONE (01:41)
[2019-03-29] MEDS ORDERED: CEFEPIME/SWI 1gm 10 ML IV SCH ×2 (02:00→09:00)
[2019-03-29] MEDS ORDERED: VANCOMYCIN 2.5 GM in NA CHLORIDE 0.9% 500 ML IVPB ONE (02:00)
[2019-03-29 03:29] LABS: Urine Appearance CLEAR; Urine Bilirubin NEGATIVE (NEG); Urine Blood TRACE (NEG); Urine Color YELLOW; Urine Glucose 3+ (NEG); Urine Protein 3+ (NEG); Urine Specific Gravity >=1.030 (1.005-1.030); Urine Urobilinogen 0.2 mg/dL (0.2-1.0)
[2019-03-29] MEDS: MORPHINE 2 MG/ML SYR IV PRN ×2 (03:43→09:07)
[2019-03-29 03:48] LABS: Urine Microscopic Reflex ORDER UMIC
[2019-03-29 04:17] LABS: Urine Bacteria <20 /HPF (NONE SEEN); Urine Culture Reflex Order NOT NEEDED; Urine RBC <5 /HPF (NONE SEEN)
[2019-03-29] MEDS: HYDROCODONE/APAP 10/325 TAB PO PRN ×2 (06:30→10:28)
--- NOTE | 2019-03-29 07:52 | EKG ---
Test Date: 2019-03-28 Test Time: 20:13:45 Bleach Analyst: AURELIA MEASUREMENT RESULTS: Intervals: Rate: 85 SC: 150 QRSD: 106 QT: 390 QTc: 464 Lucan: P: 40 SC: 150 QRS: -40 T: 52 INTERPRETIVE STATEMENTS: Normal sinus rhythm Left axis deviation Septal infarct, age undetermined Abnormal ECG Compared to ECG 03/01/2019 01:22:32 Myocardial infarct finding now present Prolonged QT interval no longer present Electronically Signed On 03-29-19 07:51:27 CDT by Dino Rios
[2019-03-29 08:57] LABS: Absolute Lymphocytes (CBC) 1.4 K/uL (0.7-4.9); Basophils % 0.4 % (0-1.3); Hematocrit 34.4 % (39.6-49.0); Lymphocytes % 32.1 % (15.3-44.8); MPV 9.1 fL (7.6-11.3); RBC Red Blood Cell Count 3.96 M/uL (4.33-5.43)
[2019-03-29] MEDS ORDERED: AMLODIPINE 5 MG TAB PO SCH (09:00)
[2019-03-29] MEDS ORDERED: PNEUMOCOCCAL VACCINE 0.5 ML IMVAC ONE (09:00)
[2019-03-29] MEDS ORDERED: CEFEPIME 1 GM/VIAL IV SCH (09:00)
[2019-03-29] MEDS ORDERED: INFLUENZA VACCINE (for 3y+) 0.5 ML DOSE IMVAC ONE (09:00)
[2019-03-29 09:13] LABS: Magnesium 1.9 mg/dL (1.8-2.4); Phosphorus 2.7 mg/dL (2.5-4.9); Potassium 3.8 mmol/L (3.5-5.1)
--- NOTE | 2019-03-29 09:21 | RAD REPORT ---
EXAM DESCRIPTION: NM - Vent Perfusion VQ Scan - 03/29/2019 8:08 am CLINICAL HISTORY: Shortness of breath COMPARISON: March 28, 2019 chest x-ray TECHNIQUE: 7 Mci [id number] was administered by inhalation. First breath, equilibrium, and washout images of the cecil ngs obtained 20.1 millicuries Technetium-99 MAA was administered intravenously. Anterior, posterior, lateral and o blique views of the lungs were taken. FINDINGS: The lungs demonstrate relatively homogeneous radiotracer activity on ventilation and perfu nessa sequences. No mismatched segmental or lobar perfusion defects are seen. IMPRESSION: No evidence of a pulmonary embolus
[2019-03-29 09:52] VITALS: O2SAT 97
--- NOTE | 2019-03-29 10:43 | P.CNS ---
Date of Consult: 03/29/19 Chief Complaint: Shortness of breath and bilateral leg pain History of Present Illness: long standing wound to left foot. Patient was last seen in wound care 2 weeks previous with improvement of wound. Patient began having pain and visited Edgardo Castillo for treatment at which time they wanted surgical intervention and the patient left AMA Allergies haloperidol [From Haldol] Allergy (Verified 12/11/18 20:38) Anaphylaxis naloxone [From Narcan] Allergy (Verified 12/11/18 20:38) Anaphylaxis - Past Medical/Surgical History Diabetic: Yes -: Diabetes mellitus type 2, insulin-dependent -: Hypertension -: Seizure disorder -: Peripheral vascular disease -: History of osteomyelitis -: Hyperlipidemia -: Bipolar disorder -: Tobacco abuse -: schizophrenia -: History of amputation to the left great toe -: History of blood clots -: seizures -: Neck and back surgery -: Right eye removal -: Right knee surgery -: Bilateral wrist surgery due to suicide attempt -: Left great toe amputation Psychosocial/ Personal History: Patient is . He has 2 children. He lives at home. - Family History Brother Medical History: Hypertension Sister Medical History: Diabetes Father Medical History: Heart disease Notes: heart attack Mother Medical History: Diabetes - Social History Smoking Status: Current every day smoker Alcohol use: No CD- Drugs: No Caffeine use: Yes Place of Residence: Home Review of Systems 10-point ROS is otherwise unremarkable Physical Examination Temp Pulse Resp BP Pulse Ox 97.4 F 69 16 183/90 H 100 03/29/19 08:00 03/29/19 09:05 03/29/19 08:00 03/29/19 09:05 03/29/19 08:00 General: Alert, In no apparent distress, Oriented x3 Cardiovascular: No edema, Normal pulses Capillary refill: <2 Seconds Musculoskeletal: No clubbing, No swelling, No contractures, No erythema, No tenderness, No warmth Integumentary: Diabetic ulcer (Wound to dorsum left fifth metatarsal is improved with decreases in all dimension, no drainage, no probing no signs of infection) Neurological: Abnormal sensation Laboratory Data (last 24 hrs) 03/28/19 20:53: PT 12.0, INR 1.02 03/28/19 20:53: WBC 4.3, Hgb 13.1 L, Hct 38.9 L, Plt Count 232 03/28/19 20:53: Sodium 142, Potassium 4.0, BUN 22 H, Creatinine 1.36 H, Glucose 232 H, Magnesium 1.7 L, Total Bilirubin 0.3, AST 21, ALT 34, Alkaline Phosphatase 101 - Problems (1) Osteomyelitis of foot Current Visit: Yes Status: Acute Conclusions/Impression: Patient to continue gerri to wound q48h and follow up in Wound care on . Osteomyelitis that may be seen on xray is latent in nature and has been treated recently with iv and oral antibiotics. No need for surgical intervention at this time
[2019-03-29 12:14] VITALS: BP 148/71; TEMP 97.1
[2019-03-29] MEDS ORDERED: clonazePAM 1 MG TAB PO SCH (14:00)
[2019-03-29] MEDS ORDERED: HYDROCODONE/APAP 10/325 TAB PO SCH (14:00)
--- NOTE | 2019-03-29 14:22 | P.SSS ---
Patient History Date of Service: 03/29/19 Reason for admission: Shortness of breath and bilateral leg pain History of Present Illness: 59-year-old gentleman with a history of diabetes mellitus, peripheral vascular disease, recently diagnosed DVT of lower extremity about 3 months ago, recently diagnosed osteomyelitis of the left foot and chronic nonhealing wound presented emergency department with a complaint bilateral lower extremity pain and shortness of breath of onset about 1 week ago. Patient was hospitalized in December 2018 for infected left foot wound, diagnosed with osteomyelitis of the left 5th metatarsal head and base of the 5th proximal phalanx. He was discharged with prolonged IV antibiotics-Cefepime and Vanco which the patient said he completed. He also saw Dr. Mcfadden for wound care. His wound has been healing. He was diagnosed with DVT of left lower extremity prior to this and was being treated with Eliquis. Patient has defaulted taking Eliquis for about 1 month. He was hospitalized in [facility] yesterday and was told he will need heparin drip for his DVT. He was also told he still has osteomyelitis involving the left metatarsal and needed his left 5th toe amputated. Patient signed out AMA and felt he would better off in a hospital close to home. He presented to the ED today with a complaint of shortness of breath and bilateral lower extremity pain. Venous Doppler of the lower extremities report progression of the left lower extremity DVT, now involving the superficial femoral vein and popliteal vein. Patient is admitted for further management. Allergies haloperidol [From Haldol] Allergy (Verified 12/11/18 20:38) Anaphylaxis naloxone [From Narcan] Allergy (Verified 12/11/18 20:38) Anaphylaxis Home Medications: Amphet Asp/Amphet/D-Amphet [Adderall 30 mg Tablet] 30 mg PO BID 03/29/19 Apixaban [Eliquis *] 5 mg PO BID 03/29/19 Benztropine Mesylate [Cogentin] 0.5 mg PO BID 03/29/19 Divalproex ER [Depakote *ER] 1,000 mg PO BEDTIME 03/29/19 Duloxetine [Cymbalta *] 120 mg PO DAILY 03/29/19 Hydrocodone Bit/Acetaminophen [Hydrocodon-Acetaminophn 10-325] 1 tab PO TID Losartan Potassium [Cozaar*] 50 mg PO BEDTIME 03/29/19 Tramadol HCl [Ultram] 50 mg PO BID 03/29/19 clonazePAM [Clonazepam] 1 mg PO TID 03/29/19 - Past Medical/Surgical History Has patient received pneumonia vaccine in the past: No Diabetic: Yes -: Diabetes mellitus type 2, insulin-dependent -: Hypertension -: Seizure disorder -: Peripheral vascular disease -: History of osteomyelitis -: Hyperlipidemia -: Bipolar disorder -: Tobacco abuse -: schizophrenia -: History of amputation to the left great toe -: History of blood clots -: seizures -: Neck and back surgery -: Right eye removal -: Right knee surgery -: Bilateral wrist surgery due to suicide attempt -: Left great toe amputation Psychosocial/ Personal History: Patient is . He has 2 children. He lives at home. - Family History Brother -: Hypertension Sister -: Diabetes Father -: Heart disease Notes: heart attack Mother -: Diabetes - Social History Smoking Status: Former smoker Alcohol use: No CD- Drugs: No Caffeine use: Yes Place of Residence: Home Review of Systems 10-point ROS is otherwise unremarkable Physical Examination - Vital Signs Temperature: 97.1 F Blood Pressure: 148/71 Pulse: 70 Respirations: 17 Pulse Ox (%): 98 - Physical Exam General: Alert, In no apparent distress HEENT: Atraumatic, PERRLA, Mucous membr. moist/pink, EOMI, Sclerae nonicteric Neck: Supple, 2+ carotid pulse no bruit, No LAD, Without JVD or thyroid abnormality Respiratory: Clear to auscultation bilaterally, Normal air movement Cardiovascular: Regular rate/rhythm, Normal S1 S2 Gastrointestinal: Normal bowel sounds, No tenderness Musculoskeletal: No swelling, No contractures, No erythema, No tenderness Integumentary: No rashes Neurological: Normal gait, Normal speech, Normal strength at 5/5 x4 extr Lymphatics: No axilla or inguinal lymphadenopathy - Studies Laboratory Data (last 24 hrs) 03/28/19 20:53: PT 12.0, INR 1.02 03/28/19 20:53: WBC 4.3, Hgb 13.1 L, Hct 38.9 L, Plt Count 232 03/28/19 20:53: Sodium 142, Potassium 4.0, BUN 22 H, Creatinine 1.36 H, Glucose 232 H, Magnesium 1.7 L, Total Bilirubin 0.3, AST 21, ALT 34, Alkaline Phosphatase 101 - Diagnosis (Problem(s)) (1) Osteomyelitis of foot Status: Chronic Plan: Patient was admitted to the hospital for possible worsening of osteomyelitis. Podiatry was consulted. Podiatry saw the patient here in the hospital and stated that his wound looks much better than before. Patient was recently seen at the wound Care Clinic as well. Patient has already completed IV antibiotics for osteomyelitis and that this time podiatry recommended no further antibiotic treatment. Podiatry recommended the patient could be discharged home and will follow up with wound care in about 1 week post discharge. Qualifiers: Osteomyelitis type: subacute Laterality: left Qualified Code(s): M86.272 - Subacute osteomyelitis, left ankle and foot (2) Deep vein thrombosis (DVT) of left lower extremity Status: Chronic Plan: DVT of the left lower extremity which had progressed to the superficial veins as well. Patient is noncompliant with his medication. Educated extensively regarding taking medication as prescribed and taking Eliquis to prevent further DVT. Patient had a V/Q scan done here to rule out PE. V/Q scan was negative. At this time will resume Eliquis. Patient may need to consider getting IVC filter placed if he is going to be non compliant with his medication. Patient at this time wants to try Eliquis 1st before getting IVC filter placed. Patient was asked to follow up with cardiology and vascular surgeon post discharge. 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: without nursing home use Diabetes mellitus complication status: with circulatory complication Diabetes mellitus complication detail: with peripheral angiopathy without gangrene Qualified Code(s): E11.51 - Type 2 diabetes mellitus with diabetic peripheral angiopathy without gangrene (5) Schizophrenia Onset Date: 02/19/17 Status: Chronic Qualifiers: Schizophrenia type: other Qualified Code(s): F20.89 - Other schizophrenia; F20.8 - Other schizophrenia (6) GERD (gastroesophageal reflux disease) Status: Chronic Qualifiers: Esophagitis presence: esophagitis presence not specified Qualified Code(s) : K21.9 - Gastro-esophageal reflux disease without esophagitis (7) Hypertension Onset Date: 04/24/15 Status: Chronic Qualifiers: Hypertension type: essential hypertension Qualified Code(s): I10 - Essential (primary) hypertension (8) Seizure disorder Onset Date: 04/24/15 Status: Chronic - Disposition Disposition: ROUTINE DISCHARGE Condition: GOOD Patient Discharge Instructions: Please f.u with wound care center in 1 to 2 week post discharge. NO new medication. Continue with eliquis and all other medication as prescribed by PCP Diet: Regular Activity: Ad samantha
[2019-03-29] MEDS ORDERED: VANCOMYCIN 1.75 GM in NA CHLORIDE 0.9% 500 ML IVPB SCH (20:00)
[2019-03-29] MEDS ORDERED: DIVALPROEX ER 250 MG TAB PO SCH (21:00)
[2019-03-29] MEDS ORDERED: LOSARTAN POTASSIUM 50 MG TABLET PO SCH (21:00)
[2019-03-29] MEDS ORDERED: BENZTROPINE 1 MG TAB PO SCH (21:00)
[2019-03-29] MEDS ORDERED: APIXABAN 5 MG TABLET PO SCH (21:00)
[2019-03-30] MEDS ORDERED: DULOXETINE 30 MG CAP PO SCH (09:00)
--- OUTSIDE RECORDS SUMMARY | 2019-04-18 03:36 | XMS REPORT ---
:1960 [facility] Address [address] Carlson [address] [place] [id number] Care Team Providers Name Role Phone Unavailable Unavailable Unavailable Problems This patient has no known problems. Allergies, Adverse Reactions, Alerts This patient has no known allergies or adverse reactions. Medications This patient has no known medications. Encounters Start End Encounter Admission Attending Care Care Encounter Date/Time Date/Time Type Type Clinicians Facility Department ID 2019-03-27 2019-03-27 Emergency [facility] [id number] 11:00:00 11:00:00 2019-03-27 2019-03-27 Emergency [facility] [id number] 10:55:25 10:55:25 2019-03-27 2019-03-27 Emergency [facility] [id number] 08:02:06 08:02:06 2019-03-27 2019-03-27 Emergency [facility] [id number] 00:00:00 00:00:00
== END 2019-03-29 12:27 | disposition home or self-care (01) ==
LOC: ER 18:34 → 4TH 23:24 → INTOOBSV 23:24
PROVIDERS: ADMIT Internal Medicine; ATTEND Internal Medicine
DX: M86.272 Subacute osteomyelitis, left ankle and foot (principal); I82.512 Chronic embolism and thrombosis of left femoral vein; I82.532 Chronic embolism and thrombosis of left popliteal vein; M54.9 Dorsalgia, unspecified; I73.9 Peripheral vascular disease, unspecified; F20.9 Schizophrenia, unspecified; K21.9 Gastro-esophageal reflux disease without esophagitis; I10 Essential (primary) hypertension; G40.909 Epilepsy, unspecified, not intractable, without status epilepticus; E11.9 Type 2 diabetes mellitus without complications
CPT/HCPCS: 96365; 96361; 96368; 93005; 85025 ×2; 80048 ×2; 36415; 86900; 83735 ×2; 86850; 84100; 85610; 86901; 82962 ×3; 80076; 85730 ×2; 84484; 83880; 71045; 93970; 94760 ×2; 78582; 96375; 99285; 96366; J1644 ×2; J3475; J2270 ×2; J1170; J0692 ×2; J7040; J7030 ×2; J2405; A9558; A9540; G0378 ×2; 81003; 81015

== ENCOUNTER 2019-06-21 15:15 | Emergency (ER) | payer OTHER ==
--- OUTSIDE RECORDS SUMMARY | 2019-06-21 15:18 | XMS REPORT ---
:1960 [facility] Address [address] [place] [address] Dr. Carlson [address] [place] [id number] Care Team Providers Name Role Phone Unavailable Unavailable Unavailable Problems This patient has no known problems. Allergies, Adverse Reactions, Alerts This patient has no known allergies or adverse reactions. Medications This patient has no known medications. Encounters Start End Encounter Admission Attending Care Care Encounter Date/Time Date/Time Type Type Clinicians Facility Department ID 2019-03-27 2019-03-27 Emergency [facility] [id number] 11:00:00 11:00:00 2019-03-27 2019-03-27 Emergency [facility] [id number] 10:55:25 10:55:25 2019-03-27 2019-03-27 Emergency [facility] [id number] 08:02:06 08:02:06 2019-03-27 2019-03-27 Emergency [facility] [id number] 00:00:00 00:00:00
[2019-06-21] MEDS ORDERED: TRAMADOL HCL 50 MG TAB ONE (16:23)
--- NOTE | 2019-06-21 16:36 | ER ---
Nurse's Notes [facility] Name: Gasper Fry Age: 59 yrs Sex: Male : 1960 Arrival Date: 06/21/2019 Time: 15:19 Bed 28 Private MD: Diagnosis: Other chronic pain Presentation: 06/21 15:25 Presenting complaint: Patient states: they just put stent in my left leg 2 weeks ago mg2 and for the last 2 days both leg has been hurting and i have shortness of breath. they put the stent because i have foot infection before. Transition of care: patient was not received from another setting of care. Onset of symptoms was June 20, 2019. Risk Assessment: Do you want to hurt yourself or someone else? Patient reports no desire to harm self or others. Initial Sepsis Screen: Does the patient meet any 2 criteria? No. Patient's initial sepsis screen is negative. Does the patient have a suspected source of infection? No. Patient's initial sepsis screen is negative. Care prior to arrival: None. 15:25 Method Of Arrival: Ambulatory mg2 15:25 Acuity: DARREL 2 mg2 Historical: - Allergies: 15:30 Haldol (Anaphylaxis); mg2 15:30 Narcan (Anaphylaxis); mg2 - Home Meds: 15:30 Adderall XR Oral [Active]; Eliquis oral oral [Active]; mg2 - PMHx: 15:30 ADD/ADHD; Anxiety; Bipolar disorder; Cellulitis; Chronic pain; CVA; Diabetes - IDDM; mg2 Hypertension; neuropathy; Seizures; - PSHx: 15:30 stent on my left leg; mg2 - Immunization history:: Flu vaccine is up to date. - Social history:: Smoking status: Patient uses tobacco products, 1 stick a day, Patient/guardian denies using alcohol, street drugs, IV drugs. - Ebola Screening: : No symptoms or risks identified at this time. Screenin:00 Abuse screen: Denies threats or abuse. Nutritional screening: No deficits noted. em Tuberculosis screening: No symptoms or risk factors identified. Fall Risk None identified. Assessment: 16:00 General: Appears in no apparent distress. comfortable, Behavior is calm, cooperative, em Denies fever. Pain: Complains of pain in chest, right leg and left leg Pain currently is 9 out of 10 on a pain scale. Quality of pain is described as pressure, Pain began several days. Neuro: Level of Consciousness is awake, alert, obeys commands, Oriented to person, place, time, situation, Appropriate for age. Cardiovascular: Reports chest pain, Capillary refill < 3 seconds Patient's skin is warm and dry. Pulses are all present. Rhythm is sinus rhythm. Respiratory: Airway is patent Respiratory effort is even, unlabored, Respiratory pattern is regular, symmetrical, Breath sounds are clear bilaterally. Denies cough. GI: Patient currently denies nausea, vomiting. Derm: Skin is intact, is healthy with good turgor, Skin is pink, warm \T\ dry. Musculoskeletal: Amputation of Capillary refill < 3 seconds, Range of motion: intact in all extremities. Vital Signs: 15:28 BP 171 / 94; Pulse 79; Resp 18; Temp 98.3; Pulse Ox 100% on R/A; Weight 99.79 kg; mg2 Height 6 ft. 0 in. (182.88 cm); Pain 9/10; 16:30 BP 164 / 85; Pulse 80; Resp 17 S; Pulse Ox 100% on R/A; ca1 15:28 Body Mass Index 29.84 (99.79 kg, 182.88 cm) mg2 ED Course: 15:19 Patient arrived in ED. mr 15:28 Triage completed. mg2 15:30 Arm band placed on. mg2 15:33 Oren Lomax, RN is Primary Nurse. em 16:00 Patient has correct armband on for positive identification. Placed in gown. Bed in low em position. Call light in reach. Pulse ox on. NIBP on. 16:01 Mik Ledbetter PA is PHCP. jr8 16:01 Tayo Rivas MD is Attending Physician. jr8 17:11 No provider procedures requiring assistance completed. em 17:11 Patient did not have IV access during this emergency room visit. em Administered Medications: 16:23 Drug: traMADol 100 mg Route: PO; em 17:11 Follow up: Response: No adverse reaction; Marked relief of symptoms; Pain is decreased; em RASS: Alert and Calm (0) Outcome: 16:35 Discharge ordered by . jr8 17:11 Discharged to home ambulatory. em 17:11 Condition: good 17:11 Discharge instructions given to patient, Instructed on discharge instructions, follow up and referral plans. Demonstrated understanding of instructions, follow-up care. 17:16 Patient left the ED. em Signatures: Sienna Howe mr Oren Lomax, RN RN em Mik Ledbetter PA PA jr8 Mehul Ponce RN RN mg2 Angelica Hood RN RN ca1
--- NOTE | 2019-06-21 16:36 | EDPHYS ---
Physician Documentation [facility] Name: Gasper Fry Age: 59 yrs Sex: Male : 1960 Arrival Date: 06/21/2019 Time: 15:19 Bed 28 Private MD: ED Physician Tayo Rivas HPI: 06/21 16:28 This 59 yrs old Male presents to ER via Ambulatory with complaints of Leg Pain.jr8 16:29 Patient stated that he has had increased lower extremity pain. On/off difficulty jr8 breathing but feels better now. Denies any other complaints at this time . Onset: The symptoms/episode began/occurred acutely, today. Severity of symptoms: At their worst the symptoms were mild in the emergency department the symptoms are unchanged. The patient has experienced similar episodes in the past, chronically. The patient has not recently seen a physician. Historical: - Allergies: 15:30 Haldol (Anaphylaxis); mg2 15:30 Narcan (Anaphylaxis); mg2 - Home Meds: 15:30 Adderall XR Oral [Active]; Eliquis oral oral [Active]; mg2 - PMHx: 15:30 ADD/ADHD; Anxiety; Bipolar disorder; Cellulitis; Chronic pain; CVA; Diabetes - IDDM; mg2 Hypertension; neuropathy; Seizures; - PSHx: 15:30 stent on my left leg; mg2 - Immunization history:: Flu vaccine is up to date. - Social history:: Smoking status: Patient uses tobacco products, 1 stick a day, Patient/guardian denies using alcohol, street drugs, IV drugs. - Ebola Screening: : No symptoms or risks identified at this time. ROS: 16:29 Eyes: Negative for injury, pain, redness, and discharge, ENT: Negative for injury, jr8 pain, and discharge, Neck: Negative for injury, pain, and swelling, Cardiovascular: Negative for chest pain, palpitations, and edema, Respiratory: Negative for shortness of breath, cough, wheezing, and pleuritic chest pain, Abdomen/GI: Negative for abdominal pain, nausea, vomiting, diarrhea, and constipation, Back: Negative for injury and pain, Skin: Negative for injury, rash, and discoloration, Neuro: Negative for headache, weakness, numbness, tingling, and seizure. 16:29 MS/extremity: Positive for pain, of the right leg and left leg. Exam: 16:29 Eyes: Pupils equal round and reactive to light, extra-ocular motions intact. Lids and jr8 lashes normal. Conjunctiva and sclera are non-icteric and not injected. Cornea within normal limits. Periorbital areas with no swelling, redness, or edema. ENT: Nares patent. No nasal discharge, no septal abnormalities noted. Tympanic membranes are normal and external auditory canals are clear. Oropharynx with no redness, swelling, or masses, exudates, or evidence of obstruction, uvula midline. Mucous membranes moist. Neck: Trachea midline, no thyromegaly or masses palpated, and no cervical lymphadenopathy. Supple, full range of motion without nuchal rigidity, or vertebral point tenderness. No Meningismus. Cardiovascular: Regular rate and rhythm with a normal S1 and S2. No gallops, murmurs, or rubs. Normal PMI, no JVD. No pulse deficits in upper or lower extremities Respiratory: Lungs have equal breath sounds bilaterally, clear to auscultation and percussion. No rales, rhonchi or wheezes noted. No increased work of breathing, no retractions or nasal flaring. Abdomen/GI: Soft, non-tender, with normal bowel sounds. No distension or tympany. No guarding or rebound. No evidence of tenderness throughout. Back: No spinal tenderness. No costovertebral tenderness. Full range of motion. Skin: Warm, dry with normal turgor. Normal color with no rashes, no lesions, and no evidence of cellulitis. MS/ Extremity: Pulses equal, no cyanosis. Neurovascular intact. Full, normal range of motion. Neuro: Awake and alert, GCS 15, oriented to person, place, time, and situation. Cranial nerves II-XII grossly intact. Motor strength 5/5 in all extremities. Sensory grossly intact. Cerebellar exam normal. Normal gait. Vital Signs: 15:28 BP 171 / 94; Pulse 79; Resp 18; Temp 98.3; Pulse Ox 100% on R/A; Weight 99.79 kg; mg2 Height 6 ft. 0 in. (182.88 cm); Pain 9/10; 16:30 BP 164 / 85; Pulse 80; Resp 17 S; Pulse Ox 100% on R/A; ca1 15:28 Body Mass Index 29.84 (99.79 kg, 182.88 cm) mg2 MDM: 16:01 Patient medically screened. jr8 16:29 Data reviewed: vital signs, nurses notes, EKG, and as a result, I will discharge jr8 patient. Data interpreted: Pulse oximetry: on room air is 100 %. Interpretation: normal. 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 ED course: Patient hemodynamically stable. No acute findings on physical exam. Will d/c home to f/u with PCP and pain management . 06/21 16:12 Order name: EKG; Complete Time: 16:15 jr8 06/21 16:12 Order name: EKG - Nurse/Tech; Complete Time: 16:23 jr8 Administered Medications: 16:23 Drug: traMADol 100 mg Route: PO; em 17:11 Follow up: Response: No adverse reaction; Marked relief of symptoms; Pain is decreased; em RASS: Alert and Calm (0) Disposition: 17:50 Co-signature as Attending Physician, Tayo Rivas MD. rn Disposition: 06/21/19 16:35 Discharged to Home. Impression: Other chronic pain. - Condition is Stable. - Discharge Instructions: Chronic Pain. - Medication Reconciliation Form, Thank You Letter, Antibiotic Education, Prescription Opioid Use form. - Follow up: Private Physician; When: 2 - 3 days; Reason: Recheck today's complaints, Continuance of care, Re-evaluation by your physician. - Problem is new. - Symptoms have improved. Signatures: Oren Lomax, RN RN em Tayo Rivas MD MD rn Roszak, Josh, PA PA jr8 Mehul Ponce RN RN mg2 Corrections: (The following items were deleted from the chart) 17:16 16:35 06/21/2019 16:35 Discharged to Home. Impression: Other chronic pain. Condition is em Stable. Forms are Medication Reconciliation Form, Thank You Letter, Antibiotic Education, Prescription Opioid Use. Follow up: Private Physician; When: 2 - 3 days; Reason: Recheck today's complaints, Continuance of care, Re-evaluation by your physician. Problem is new. Symptoms have improved. jr8
[2019-06-21 18:27] VITALS: TEMP 98.3; O2SAT 100
[2019-06-21 18:29] VITALS: BP 164/85
--- NOTE | 2019-06-22 20:58 | EKG ---
Test Date: 2019-06-21 Test Time: 16:21:30 Shirt Cleaner: BOZENA MEASUREMENT RESULTS: Intervals: Rate: 81 DC: 164 QRSD: 94 QT: 400 QTc: 464 Drumore: P: 42 DC: 164 QRS: -26 T: 55 INTERPRETIVE STATEMENTS: Normal sinus rhythm Possible Anterior infarct, age undetermined Abnormal ECG Compared to ECG 03/28/2019 20:13:45 Left-axis deviation no longer present Myocardial infarct finding still present Electronically Signed On 06-22-19 20:55:23 ASSISTANT PROFESSOR OF ENGLISH by Tyler Gomez
== END 2019-06-21 17:16 | disposition home or self-care (01) ==
LOC: ER 15:15
DX: G89.29 Other chronic pain (principal); Z88.8 Allergy status to other drugs, medicaments and biological substances; F90.9 Attention-deficit hyperactivity disorder, unspecified type
CPT/HCPCS: 93005; 99284

== ENCOUNTER 2019-07-17 10:42 | Emergency (ER) | payer OTHER ==
--- OUTSIDE RECORDS SUMMARY | 2019-07-17 10:44 | XMS REPORT ---
:1960 Author Organization [facility] Address [address] Carlson [address] [place] [id number] Care Team Providers Name Role Phone Unavailable Unavailable Unavailable Problems This patient has no known problems. Allergies, Adverse Reactions, Alerts This patient has no known allergies or adverse reactions. Medications This patient has no known medications. Encounters Start End Encounter Admission Attending Care Care Encounter Date/Time Date/Time Type Type Clinicians Facility Department ID 2019-03-27 2019-03-27 Emergency [facility] [id number] 11:00:00 11:00:00 2019-03-27 2019-03-27 Emergency [facility] [id number] 10:55:25 10:55:25 2019-03-27 2019-03-27 Emergency [facility] [id number] 08:02:06 08:02:06 2019-03-27 2019-03-27 Emergency [facility] [id number] 00:00:00 00:00:00
--- NOTE | 2019-07-17 12:07 | ER ---
Nurse's Notes [facility] Name: Gasper Fry Age: 59 yrs Sex: Male : 1960 Arrival Date: 07/17/2019 Time: 10:44 Bed 19 Private MD: Diagnosis: Other chronic pain Presentation: 07/17 10:59 Presenting complaint: Patient states: "my leg has been hurting me and I can't get iw anything for pain and I wanna shoot myself, I can't sleep, last time I came here they wouldn't do nothing for me" pt states he has been hurting so bad and that is why he feels like hurting himself, pt c/o linette leg pain that is chronic. Transition of care: patient was not received from another setting of care. Onset of symptoms. Risk Assessment: Do you want to hurt yourself or someone else? Patient reports no desire to harm self or others. Initial Sepsis Screen: Does the patient meet any 2 criteria? No. Patient's initial sepsis screen is negative. Does the patient have a suspected source of infection? No. Patient's initial sepsis screen is negative. Care prior to arrival: None. 10:59 Method Of Arrival: Ambulatory iw 10:59 Acuity: DARREL 3 iw Historical: - Allergies: 11:02 Haldol (Anaphylaxis); iw 11:02 Narcan (Anaphylaxis); iw - Home Meds: 11:45 Adderall XR 30 mg oral cp24 1 cap twice a day [Active]; Cogentin Oral 0.5 mg twice a rb1 day [Active]; Eliquis 5 mg oral tab 1 tab 2 times per day [Active]; Klonopin 0.5 mg oral tab 1 tab 2 times per day [Active]; Novolin 70/30 Innolet 45 units Sub-Q 45 units twice a day with meals [Active]; Risperdal 4 mg oral tab 1 tab 2 times per day [Active]; tramadol 50 mg oral tab 1 tab twice a day [Active]; - PMHx: 11:02 ADD/ADHD; Anxiety; Bipolar disorder; Cellulitis; Chronic pain; CVA; Diabetes - IDDM; iw Hypertension; neuropathy; Seizures; - PSHx: 11:02 stent on my left leg; iw - Immunization history:: Adult Immunizations up to date. - Coronavirus screen:: The patient has NOT traveled to [place], [place], or [place] in the past 14 days. Proceed with normal triage process as indicated. - Social history:: Smoking status: . - Ebola Screening: : Patient negative for fever greater than or equal to 101.5 degrees Fahrenheit, and additional compatible Ebola Virus Disease symptoms Patient denies exposure to infectious person Patient denies travel to an Ebola-affected area in the 21 days before illness onset No symptoms or risks identified at this time. Screenin:10 Abuse screen: Denies threats or abuse. Nutritional screening: No deficits noted. rb1 Tuberculosis screening: No symptoms or risk factors identified. Fall Risk None identified. Assessment: 11:10 General: Appears comfortable, Behavior is agitated, Denies fever. Pain: Complains of rb1 pain in bilateral legs Pain currently is 10 out of 10 on a pain scale. Pain began chronic. Neuro: Level of Consciousness is awake, alert, obeys commands, Oriented to person, place, time, situation. Cardiovascular: Capillary refill is > 3 seconds toes. Respiratory: Reports shortness of breath on exertion Airway is patent Respiratory effort is even, unlabored, Respiratory pattern is regular, symmetrical. GI: No signs and/or symptoms were reported involving the gastrointestinal system. : No signs and/or symptoms were reported regarding the genitourinary system. Derm: Skin is dusky, bilateral legs. Musculoskeletal: Amputation of left great toe. 11:10 General: Pt. denies wanting to hurt himself or anyone else, he stated, "My legs hurt so rb1 bad and I can't take it anymore. I just want some pain relief.". 11:45 Reassessment: Called [facility] pharmacy [phone] to obtain a recent list of the pt. rb1 medications. 12:10 Reassessment: Patient appears in no apparent distress at this time. No changes from rb1 previously documented assessment. Psych: 11:10 Subjective: Patient's mood is irritable, Having thoughts of denies being suicidal or rb1 homicidal. Objective: Patient is irritable. Interventions: Pt. reports that he is not suicidal or homicidal he just wants some pain relief for his legs because the pain is so bad. Belongings remain with the pt. Suicide Risk Assessment: Sad Person Scale: Sex of patient: Male: Score 1 point. Age of patient: Score 0 point if patient falls outside of specified age parameters. Depression: Score 0 point if signs of depression are not present. Previous Attempt: Score 0 point if patient has not previously attempted suicide. Substance Abuse: Score 0 point if patient does not abuse alcohol or drugs. Rational Thinking: Score 0 point if patient has rational thinking. Social Support: Score 0 if social support is present/available. Organized Plan: Score 0 if patient did not have an organized plan in place. Relationship: Score 1 point if patient is , , , or for a single male Chronic Sickness: Score 1 point if patient has illness, chronic, debilitating, or severe. TOTAL POINTS: If total points are 3-4, proposed clinical action is close follow-up/consider hospitalization. 11:10 Safety Checks: Denies being suicidal or homicidal, wants pain relief for his legs. Pt rb1 denies substance abuse. Commitment: denies having SI. Vital Signs: 11:02 BP 160 / 88; Pulse 100; Resp 16; Temp 98.2; Pulse Ox 100% on R/A; Weight 95.25 kg; iw Height 6 ft. 0 in. (182.88 cm); Pain 10/10; 12:00 BP 121 / 93; Pulse 98; Resp 19; Pulse Ox 99% on R/A; Pain 10/10; rb1 11:02 Body Mass Index 28.48 (95.25 kg, 182.88 cm) iw ED Course: 10:44 Patient arrived in ED. as 11:01 Triage completed. iw 11:02 Arm band placed on. iw 11:07 Clif Arndt NP is PHCP. pm1 11:08 Tayo Rivas MD is Attending Physician. pm1 11:10 Patient has correct armband on for positive identification. Placed in gown. Bed in low rb1 position. Call light in reach. Side rails up X 1. Pulse ox on. NIBP on. Warm blanket given. 11:15 Gretchen Marie, MALU is Primary Nurse. rb1 12:06 Reji Nugent DO is Referral Physician. pm1 12:35 No provider procedures requiring assistance completed. Patient did not have IV access rb1 during this emergency room visit. Administered Medications: 12:13 Drug: morphine 4 mg Route: IM; Site: right deltoid; rb1 12:30 Follow up: Response: No adverse reaction; Pain is decreased rb1 12:13 Drug: Zofran 4 mg Route: PO; rb1 12:30 Follow up: Response: No adverse reaction rb1 Outcome: 12:07 Discharge ordered by MD. pm1 12:35 Patient left the ED. rb1 12:35 Discharged to home via wheelchair, with family. rb1 12:35 Condition: stable 12:35 Discharge instructions given to patient, Instructed on discharge instructions, follow up and referral plans. Demonstrated understanding of instructions, follow-up care, Prescriptions given X none Signatures: Mary Parra Irene RN RN iw Gretchen Marie RN RN rb1 Clif Arndt, ORACLE HYPERION CONSULTANT ORACLE HYPERION CONSULTANT pm1 Corrections: (The following items were deleted from the chart) 12:51 12:49 Patient left the ED. rb1 rb1
--- NOTE | 2019-07-17 12:08 | EDPHYS ---
Physician Documentation [facility] Name: Gasper Fry Age: 59 yrs Sex: Male : 1960 Arrival Date: 07/17/2019 Time: 10:44 Bed 19 Private MD: ED Physician Tayo Rivas HPI: 07/17 11:15 This 59 yrs old Male presents to ER via Ambulatory with complaints of Leg Pain.pm1 11:15 The patient presents with pain, that is chronic. The complaints affect the right leg pm1 and left leg. Context: the patient can fully bear weight, the patient is able to ambulate. 11:15 Modifying factors: The symptoms are alleviated by nothing. Reports that the pm1 prescriptions from his pain management MD are not currently working. Associated signs and symptoms: The patient has no apparent associated signs or symptoms, Pertinent negatives calf tenderness, fever, swelling. Severity of symptoms: in the emergency department the symptoms are actually worse. The patient has experienced similar episodes in the past, chronically. Dr. Carrillo, pain management. Patient denies homicidal and suicidal ideation, he just wants pain relief. Historical: - Allergies: 11:02 Haldol (Anaphylaxis); iw 11:02 Narcan (Anaphylaxis); iw - Home Meds: 11:45 Adderall XR 30 mg oral cp24 1 cap twice a day [Active]; Cogentin Oral 0.5 mg twice a rb1 day [Active]; Eliquis 5 mg oral tab 1 tab 2 times per day [Active]; Klonopin 0.5 mg oral tab 1 tab 2 times per day [Active]; Novolin 70/30 Innolet 45 units Sub-Q 45 units twice a day with meals [Active]; Risperdal 4 mg oral tab 1 tab 2 times per day [Active]; tramadol 50 mg oral tab 1 tab twice a day [Active]; - PMHx: 11:02 ADD/ADHD; Anxiety; Bipolar disorder; Cellulitis; Chronic pain; CVA; Diabetes - IDDM; iw Hypertension; neuropathy; Seizures; - PSHx: 11:02 stent on my left leg; iw - Immunization history:: Adult Immunizations up to date. - Coronavirus screen:: The patient has NOT traveled to [place], [place], or [place] in the past 14 days. Proceed with normal triage process as indicated. - Social history:: Smoking status: . - Ebola Screening: : Patient negative for fever greater than or equal to 101.5 degrees Fahrenheit, and additional compatible Ebola Virus Disease symptoms Patient denies exposure to infectious person Patient denies travel to an Ebola-affected area in the 21 days before illness onset No symptoms or risks identified at this time. ROS: 11:15 Constitutional: Negative for fever, chills, and weight loss, Cardiovascular: Negative pm1 for chest pain, palpitations, and edema, Respiratory: Negative for shortness of breath, cough, wheezing, and pleuritic chest pain, Abdomen/GI: Negative for abdominal pain, nausea, vomiting, diarrhea, and constipation, Back: Negative for injury and pain. 11:15 Skin: Negative for injury, rash, and discoloration, Neuro: Negative for headache, weakness, numbness, tingling, and seizure. 11:15 MS/extremity: Positive for bilateral leg pain, Negative for decreased range of motion, paresthesias, swelling, tenderness, tingling. Exam: 11:15 Constitutional: This is a well developed, well nourished patient who is awake, alert, pm1 and in no acute distress. Head/Face: Normocephalic, atraumatic. Neck: Trachea midline, no thyromegaly or masses palpated, and no cervical lymphadenopathy. Supple, full range of motion without nuchal rigidity, or vertebral point tenderness. No Meningismus. Chest/axilla: Normal chest wall appearance and motion. Nontender with no deformity. No lesions are appreciated. Cardiovascular: Regular rate and rhythm with a normal S1 and S2. No gallops, murmurs, or rubs. No pulse deficits. Respiratory: Lungs have equal breath sounds bilaterally, clear to auscultation and percussion. No rales, rhonchi or wheezes noted. No increased work of breathing, no retractions or nasal flaring. Abdomen/GI: Soft, non-tender, with normal bowel sounds. No distension or tympany. No guarding or rebound. No evidence of tenderness throughout. Back: No spinal tenderness. No costovertebral tenderness. Full range of motion. Skin: Warm, dry with normal turgor. Normal color with no rashes, no lesions, and no evidence of cellulitis. 11:15 Musculoskeletal/extremity: Extremities: grossly normal except: Left great toe amputation, ROM: intact in all extremities, Circulation is intact in all extremities. the right leg and left leg Sensation intact. 11:15 Neuro: Orientation: is normal, Motor: is normal, moves all fours. Vital Signs: 11:02 BP 160 / 88; Pulse 100; Resp 16; Temp 98.2; Pulse Ox 100% on R/A; Weight 95.25 kg; iw Height 6 ft. 0 in. (182.88 cm); Pain 10/10; 12:00 BP 121 / 93; Pulse 98; Resp 19; Pulse Ox 99% on R/A; Pain 10/10; rb1 11:02 Body Mass Index 28.48 (95.25 kg, 182.88 cm) iw MDM: 11:19 Patient medically screened. pm1 11:44 Data reviewed: vital signs. Data interpreted: Pulse oximetry: on room air is 100 %. pm1 Interpretation: normal. 12:05 Counseling: I had a detailed discussion with the patient and/or guardian regarding: the pm1 historical points, exam findings, and any diagnostic results supporting the discharge/admit diagnosis, the need for outpatient follow up, for definitive care, Dr. Ruby for continued pain management, to return to the emergency department if symptoms worsen or persist or if there are any questions or concerns that arise at home. 12:05 ED course: DATA COMPILER Aware data collected on patient and shown to him. Patient is currently pm1 getting one week prescriptions on a weekly basis from his pain management MD for tramadol and hydrocodone. Last prescription for 7 days of tramadol and hydrocodone was filled on 07/13/2019. Will give the patient pain medication in the ER for breakthrough pain relief and instructed him to continue his prescribed medications and to follow up with Dr. Nugent. Administered Medications: 12:13 Drug: morphine 4 mg Route: IM; Site: right deltoid; rb1 12:30 Follow up: Response: No adverse reaction; Pain is decreased rb1 12:13 Drug: Zofran 4 mg Route: PO; rb1 12:30 Follow up: Response: No adverse reaction rb1 Disposition: 14:16 Co-signature as Attending Physician, Tayo Rivas MD. rn Disposition: 07/17/19 12:07 Discharged to Home. Impression: Other chronic pain. - Condition is Stable. - Discharge Instructions: Chronic Pain. - Medication Reconciliation Form, Thank You Letter, Antibiotic Education, Prescription Opioid Use form. - Follow up: Emergency Department; When: As needed; Reason: Worsening of condition. Follow up: Reji Nugent DO; When: 2 - 3 days; Reason: Recheck today's complaints, Continuance of care, Re-evaluation by your physician. - Problem is chronic. - Symptoms have improved. Signatures: Ju Anton RN RN iw Nieto, Roman, MD MD rn Barber, Rebecca, RN RN rb1 Marinas, Patrick, NP DIETETIC TECHNICIAN REGISTERED pm1 Corrections: (The following items were deleted from the chart) 12:49 12:07 07/17/2019 12:07 Discharged to Home. Impression: Other chronic pain. Condition is rb1 Stable. Forms are Medication Reconciliation Form, Thank You Letter, Antibiotic Education, Prescription Opioid Use. Follow up: Emergency Department; When: As needed; Reason: Worsening of condition. Follow up: Reji Nugent; When: 2 - 3 days; Reason: Recheck today's complaints, Continuance of care, Re-evaluation by your physician. Problem is chronic. Symptoms have improved. pm1
[2019-07-17] MEDS ORDERED: MORPHINE 4 MG/ML SYR ONE (12:11)
[2019-07-17] MEDS ORDERED: ONDANSETRON 4 MG (ODT) TAB ONE (12:14)
[2019-07-17 13:09] VITALS: TEMP 98.2
[2019-07-17 13:11] VITALS: BP 121/93; O2SAT 99
== END 2019-07-17 12:49 | disposition home or self-care (01) ==
LOC: ER 10:42
DX: G89.29 Other chronic pain (principal); M79.604 Pain in right leg; I10 Essential (primary) hypertension; E11.9 Type 2 diabetes mellitus without complications; G40.909 Epilepsy, unspecified, not intractable, without status epilepticus; F31.9 Bipolar disorder, unspecified; F90.9 Attention-deficit hyperactivity disorder, unspecified type; Z79.4 Long term (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; Z86.73 Personal history of transient ischemic attack (TIA), and cerebral infarction without residual deficits; Z88.5 Allergy status to narcotic agent
CPT/HCPCS: 96372; 99284

== ENCOUNTER 2019-07-17 19:57 | Emergency (ER) | payer OTHER ==
--- OUTSIDE RECORDS SUMMARY | 2019-07-17 19:59 | XMS REPORT ---
:1960 Author Organization [facility] Address [address] [place]son [address] [place] [id number] Care Team Providers Name Role Phone Unavailable Unavailable Unavailable Problems This patient has no known problems. Allergies, Adverse Reactions, Alerts This patient has no known allergies or adverse reactions. Medications This patient has no known medications. Encounters Start End Encounter Admission Attending Care Care Encounter Date/Time Date/Time Type Type Clinicians Facility Department ID 2019-03-27 2019-03-27 Emergency [facility] [id number] 11:00:00 11:00:00 2019-03-27 2019-03-27 Emergency [facility] [id number] 10:55:25 10:55:25 2019-03-27 2019-03-27 Emergency [facility] [id number] 08:02:06 08:02:06 2019-03-27 2019-03-27 Emergency [facility] [id number] 00:00:00 00:00:00
--- NOTE | 2019-07-17 20:45 | EDPHYS ---
Physician Documentation [facility] Name: Gasper Fry Age: 59 yrs Sex: Male : 1960 Arrival Date: 07/17/2019 Time: 19:59 Bed Waiting Private MD: ED Physician Adrián Ahumada HPI: 07/17 20:39 This 59 yrs old Male presents to ER via Ambulatory with complaints of pm1 Bilateral Leg Pain. 20:39 The patient presents with pain, that is chronic. The complaints affect the right leg pm1 and left leg. Modifying factors: The symptoms are alleviated by Pain medications given in the ER this AM. Associated signs and symptoms: Pertinent positives: nausea, on and off shortness of breath that is resolved. Treatment prior to arrival includes: no previous treatment at home. Did not take his prescription pain medications. . Severity of symptoms: in the emergency department the symptoms are actually worse. The patient has experienced similar episodes in the past, chronically. The patient has been recently seen at the [facility] Emergency Department, today, by me, for the same complaint of chronic pain to bilateral legs. Historical: - Allergies: 20:23 Haldol (Anaphylaxis); bb 20:23 Narcan (Anaphylaxis); bb - Home Meds: 20:23 Adderall XR 30 mg Oral cp24 1 cap twice a day [Active]; Cogentin Oral [Active]; bb Cogentin Oral 0.5 mg twice a day [Active]; Eliquis 5 mg Oral tab 1 tab 2 times per day [Active]; Glucophage Oral [Active]; Klonopin 0.5 mg Oral tab 1 tab 2 times per day [Active]; Novolin 70/30 Innolet 45 units Sub-Q 45 units twice a day with meals [Active]; Risperdal 4 mg Oral tab 1 tab 2 times per day [Active]; tramadol 50 mg Oral tab 1 tab twice a day [Active]; - PMHx: 20:23 ADD/ADHD; Anxiety; Bipolar disorder; Cellulitis; Chronic pain; CVA; Diabetes - IDDM; bb Hypertension; neuropathy; Seizures; - PSHx: 20:23 stent on my left leg; bb - Immunization history:: Adult Immunizations up to date. - Coronavirus screen:: The patient has NOT traveled to [place], [place], or [place] in the past 14 days. Proceed with normal triage process as indicated. - Social history:: Smoking status: Patient/guardian denies using tobacco. - Ebola Screening: : No symptoms or risks identified at this time. ROS: 20:39 Constitutional: Negative for fever, chills, and weight loss, Cardiovascular: Negative pm1 for chest pain, palpitations, and edema, Respiratory: Negative for shortness of breath, cough, wheezing, and pleuritic chest pain, Abdomen/GI: Negative for abdominal pain, nausea, vomiting, diarrhea, and constipation, Back: Negative for injury and pain, Skin: Negative for injury, rash, and discoloration. 20:39 Neuro: Negative for headache, weakness, numbness, tingling, and seizure. 20:39 MS/extremity: Positive for pain, of the left leg and right leg, Negative for decreased range of motion, paresthesias. Exam: 20:39 Constitutional: This is a well developed, well nourished patient who is awake, alert, pm1 and in no acute distress. Head/Face: Normocephalic, atraumatic. Neck: Trachea midline, no thyromegaly or masses palpated, and no cervical lymphadenopathy. Supple, full range of motion without nuchal rigidity, or vertebral point tenderness. No Meningismus. Chest/axilla: Normal chest wall appearance and motion. Nontender with no deformity. No lesions are appreciated. Cardiovascular: Regular rate and rhythm with a normal S1 and S2. No gallops, murmurs, or rubs. Normal PMI, no JVD. No pulse deficits. Respiratory: Lungs have equal breath sounds bilaterally, clear to auscultation and percussion. No rales, rhonchi or wheezes noted. No increased work of breathing, no retractions or nasal flaring. Abdomen/GI: Soft, non-tender, with normal bowel sounds. No distension or tympany. No guarding or rebound. No evidence of tenderness throughout. Back: No spinal tenderness. No costovertebral tenderness. Full range of motion. Skin: Warm, dry with normal turgor. Normal color with no rashes, no lesions, and no evidence of cellulitis. MS/ Extremity: Pulses equal, no cyanosis. Neurovascular intact. Full, normal range of motion. 20:39 Neuro: Orientation: is normal, Motor: is normal, moves all fours. Vital Signs: 20:23 BP 183 / 86; Pulse 99; Resp 18 S; Temp 98.5(O); Pulse Ox 100% on R/A; Weight 95.25 kg bb (R); Height 6 ft. 0 in. (182.88 cm) (R); Pain 10/10; 20:23 Body Mass Index 28.48 (95.25 kg, 182.88 cm) bb MDM: 20:39 Data reviewed: vital signs. Data interpreted: Pulse oximetry: on room air is 100 %. pm1 Interpretation: normal. 20:39 Medical screen evaluation completed. [facility] emergency medical condition absent. pm1 20:39 ED course: Patient was seen by me this AM for the same complaint. Patient reports that pm1 the morphine worked this AM for his pain but it's effect has run out and his chronic pain to his bilateral legs is back. He did not take any of his home prescription medications of tramadol or hydrocodone since discharge from the ER this AM. I instructed the patient that he needed to follow up with Dr. Goodwin, take his prescription pain medications, and use distraction or any other techniques to ease the pain until follow up. He has an appointment with him on Friday. Explained to patient that I cannot give him any further medications in the ER for chronic pain and he understood. 20:45 Patient medically screened. pm1 Administered Medications: No medications were administered Disposition: 07/18 06:34 Co-signature as Attending Physician, Adrián Ahumada MD I agree with the assessment and tw4 plan of care. Disposition: 07/17/19 20:45 Discharged to Home. Impression: Other chronic pain. - Condition is Stable. - Discharge Instructions: Chronic Pain. - Medication Reconciliation Form, Thank You Letter, Antibiotic Education, Prescription Opioid Use form. - Follow up: Reji Nugent DO; When: 2 - 3 days; Reason: Recheck today's complaints, Continuance of care, Re-evaluation by your physician. - Problem is chronic. - Symptoms are unchanged. Signatures: Guadalupe Samayoa RN RN bb Clif Arndt, GRAIN SPOUTER GRAIN SPOUTER pm1 Adrián Ahumada MD MD tw4 Corrections: (The following items were deleted from the chart) 07/17 20:45 20:45 07/17/2019 20:45 Discharged to Home. Impression: Other chronic pain. Condition is bb Stable. Forms are Medication Reconciliation Form, Thank You Letter, Antibiotic Education, Prescription Opioid Use. Follow up: Reji Nugent; When: 2 - 3 days; Reason: Recheck today's complaints, Continuance of care, Re-evaluation by your physician. Problem is chronic. Symptoms are unchanged. pm1
--- NOTE | 2019-07-17 20:45 | ER ---
Nurse's Notes [facility] Name: Gasper Fry Age: 59 yrs Sex: Male : 1960 Arrival Date: 07/17/2019 Time: 19:59 Bed Waiting Private MD: Diagnosis: Other chronic pain Presentation: 07/17 20:20 Presenting complaint: Patient states: he is having so much pain in his legs he is bb unable to sleep. Transition of care: patient was not received from another setting of care. Onset of symptoms was July 12, 2019. Risk Assessment: Do you want to hurt yourself or someone else? Patient reports no desire to harm self or others. Initial Sepsis Screen: Does the patient meet any 2 criteria? No. Patient's initial sepsis screen is negative. Does the patient have a suspected source of infection? No. Patient's initial sepsis screen is negative. Care prior to arrival: None. 20:20 Method Of Arrival: Ambulatory bb 20:20 Acuity: DARREL 5 bb Triage Assessment: 20:23 General: Appears in no apparent distress. uncomfortable, Behavior is anxious. Pain: bb Complains of pain in right leg and left leg Pain currently is 10 out of 10 on a pain scale. Neuro: Level of Consciousness is awake, alert, obeys commands, Oriented to person, place, time, situation. Cardiovascular: No deficits noted. Respiratory: Respiratory effort is even, unlabored, Respiratory pattern is regular. GI: Reports pt does not report any GI symptoms. Derm: Skin is dry, Skin is normal, Skin temperature is warm. Musculoskeletal: Circulation, motion, and sensation intact. Reports pain in right leg and left leg. Historical: - Allergies: 20:23 Haldol (Anaphylaxis); bb 20:23 Narcan (Anaphylaxis); bb - Home Meds: 20:23 Adderall XR 30 mg Oral cp24 1 cap twice a day [Active]; Cogentin Oral [Active]; bb Cogentin Oral 0.5 mg twice a day [Active]; Eliquis 5 mg Oral tab 1 tab 2 times per day [Active]; Glucophage Oral [Active]; Klonopin 0.5 mg Oral tab 1 tab 2 times per day [Active]; Novolin 70/30 Innolet 45 units Sub-Q 45 units twice a day with meals [Active]; Risperdal 4 mg Oral tab 1 tab 2 times per day [Active]; tramadol 50 mg Oral tab 1 tab twice a day [Active]; - PMHx: 20:23 ADD/ADHD; Anxiety; Bipolar disorder; Cellulitis; Chronic pain; CVA; Diabetes - IDDM; bb Hypertension; neuropathy; Seizures; - PSHx: 20:23 stent on my left leg; bb - Immunization history:: Adult Immunizations up to date. - Coronavirus screen:: The patient has NOT traveled to [place], [place], or [place] in the past 14 days. Proceed with normal triage process as indicated. - Social history:: Smoking status: Patient/guardian denies using tobacco. - Ebola Screening: : No symptoms or risks identified at this time. Assessment: 20:43 Reassessment: pt received MSE by Clif Arndt NP. bb Vital Signs: 20:23 BP 183 / 86; Pulse 99; Resp 18 S; Temp 98.5(O); Pulse Ox 100% on R/A; Weight 95.25 kg bb (R); Height 6 ft. 0 in. (182.88 cm) (R); Pain 10/10; 20:23 Body Mass Index 28.48 (95.25 kg, 182.88 cm) bb ED Course: 19:59 Patient arrived in ED. jg7 20:22 Triage completed. bb 20:23 Arm band placed on. bb 20:38 Clif Arndt NP is PHCP. pm1 20:38 Adrián Ahumada MD is Attending Physician. pm1 20:44 Reji Nugent DO is Referral Physician. pm1 Administered Medications: No medications were administered Outcome: 20:45 Discharge ordered by . pm1 20:45 Patient left the ED. bb Signatures: Guadalupe Samayoa, RN RN bb Clif Arndt NP RECORDS MANAGEMENT TECHNICIAN pm1 Cherry Quiroz jg7
[2019-07-17 21:04] VITALS: BP 183/86; TEMP 98.5; O2SAT 100
== END 2019-07-17 20:45 | disposition home or self-care (01) ==
LOC: ER 19:57
DX: G89.29 Other chronic pain (principal); M79.604 Pain in right leg; I10 Essential (primary) hypertension; E11.9 Type 2 diabetes mellitus without complications; F31.9 Bipolar disorder, unspecified; G40.909 Epilepsy, unspecified, not intractable, without status epilepticus; Z79.4 Long term (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; Z79.01 Long term (current) use of anticoagulants; Z88.5 Allergy status to narcotic agent; Z86.73 Personal history of transient ischemic attack (TIA), and cerebral infarction without residual deficits
CPT/HCPCS: 99281

== ENCOUNTER 2019-09-04 20:16 | Observation (INO) | payer OTHER ==
--- OUTSIDE RECORDS SUMMARY | 2019-09-04 20:18 | XMS REPORT ---
:1960 Author Organization [facility] Address [address] [place] [address] [place] [id number] Care Team Providers Name Role Phone Unavailable Unavailable Unavailable Problems This patient has no known problems. Allergies, Adverse Reactions, Alerts This patient has no known allergies or adverse reactions. Medications This patient has no known medications. Encounters Start End Encounter Admission Attending Care Care Encounter Date/Time Date/Time Type Type Clinicians Facility Department ID 2019-03-27 2019-03-27 Emergency [facility] [id number] 11:00:00 11:00:00 2019-03-27 2019-03-27 Emergency [facility] [id number] 10:55:25 10:55:25 2019-03-27 2019-03-27 Emergency [facility] [id number] 08:02:06 08:02:06 2019-03-27 2019-03-27 Emergency [facility] [id number] 00:00:00 00:00:00
[2019-09-04 21:08] LABS: Absolute Lymphocytes (CBC) 1.4 K/uL (0.7-4.9); Basophils % 0.4 % (0-1.3); Hematocrit 35.7 % (39.6-49.0); Lymphocytes % 23.3 % (15.3-44.8); MPV 8.7 fL (7.6-11.3); RBC Red Blood Cell Count 3.84 M/uL (4.33-5.43)
--- NOTE | 2019-09-04 21:22 | RAD REPORT ---
EXAM DESCRIPTION: RAD - Chest Single View - 09/04/2019 8:55 pm CLINICAL HISTORY: Chest pain;Dyspnea Chest pain. COMPARISON: Chest Single View dated 03/28/2019; Chest Single View dated 01/04/2019; Chest Single View dated 07/22/2018; Chest Single View dated 05/11/2018 FINDINGS: Portable technique limits examination quality. The lungs are grossly clear. The heart is normal in size. No displaced fractures. IMPRESSION: No acute intrathoracic process suspected.
[2019-09-04 21:26] LABS: Protime INR 0.93
[2019-09-04 21:29] LABS: BUN Blood Urea Nitrogen 37 mg/dL (7-18); Bicarbonate 26 mmol/L (21-32); NT PRO-BNP 290 pg/mL (<125); Potassium 5.1 mmol/L (3.5-5.1); Sodium Level 134 mmol/L (136-145); Troponin (Emerg Dept Use Only) < 0.02 ng/mL (0.0-0.045)
[2019-09-04 21:30] LABS: Glucose Level 409 mg/dL (74-106)
--- NOTE | 2019-09-04 21:46 | EDPHYS ---
Physician Documentation [facility] Name: Gasper Fry Age: 59 yrs Sex: Male : 1960 Arrival Date: 09/04/2019 Time: 20:18 Bed 17 Private MD: ED Physician Tayo Rivas HPI: 09/03 20:45 This 59 yrs old Male presents to ER via Wheelchair with complaints of Chest rn Pain, Shortness Of Breath, Nausea. 20:45 The patient or guardian reports chest pain that is located primarily in the anterior rn chest wall. Onset: at an unknown time. The pain does not radiate. Associated signs and symptoms: Pertinent positives: cough, nausea, shortness of breath, Pertinent negatives: headache, near syncope, syncope, vomiting. The chest pain is described as aching, dull. Duration: The patient or guardian reports multiple episodes, that are intermittent. Modifying factors: The symptoms are alleviated by nothing. the symptoms are aggravated by deep breath. Severity of pain: At its worst the pain was mild in the emergency department the pain is unchanged. The patient has experienced a previous episode. Reports unknown onset, but + chest pain, dull, assoc with sob and cough, no fever, reports feels like when diagnosed with blood clot. On blood thinners. NO trauma. Does not feel like has lung infection.. Historical: - Allergies: 20:40 Haldol (Anaphylaxis); ca1 20:40 Narcan (Anaphylaxis); ca1 - Home Meds: 20:40 hydrocodone-acetaminophen 10-325 mg Oral tab 1 tab twice a day [Active]; Eliquis 5 mg ca1 Oral tab 1 tab 2 times per day [Active]; metoprolol tartrate 50 mg Oral tab 1 tab 2 times per day [Active]; atorvastatin 40 mg oral tab 1 tab once daily [Active]; losartan 50 mg oral tab 1 tab once daily [Active]; Novolin 70/30 Innolet 45 units Sub-Q 45 units twice a day with meals [Active]; Victoza 2-Reid subcutaneous subcutaneous [Active]; - PMHx: 20:40 ADD/ADHD; Anxiety; Bipolar disorder; Cellulitis; Chronic pain; CVA; Diabetes - IDDM; ca1 Hypertension; neuropathy; Seizures; - PSHx: 20:40 stent on my left leg; ca1 - Immunization history:: Adult Immunizations up to date, Pneumococcal vaccine is up to date, Flu vaccine is up to date. - Family history:: not pertinent. - Social history:: Smoking status: unknown. - Hospitalizations: : No recent hospitalization is reported. ROS: 20:45 Constitutional: Negative for fever, chills, and weight loss, Eyes: Negative for injury, rn pain, redness, and discharge, Neck: Negative for injury, pain, and swelling, Cardiovascular: + chest pain Respiratory: + sob and cough Abdomen/GI: Negative for abdominal pain, vomiting, diarrhea, and constipation, MS/Extremity: Negative for injury and deformity, Skin: Negative for injury, rash, and discoloration, Neuro: Negative for headache, weakness, numbness, tingling, and seizure. Exam: 20:45 Constitutional: This is a well developed, well nourished patient who is awake, alert, rn and in no acute distress. Head/Face: Normocephalic, atraumatic. ENT: No oral swelling, no stridor. Cardiovascular: Regular rate and rhythm. No pulse deficits. Respiratory: Mild tachypnea, clear bilateral breath sounds Abdomen/GI: soft, non-tender Male : + several sub-centimeter areas of induration, no fluctuance as bases if pubic hair, most seemed crusted over MS/ Extremity: Pulses equal, no cyanosis. Neuro: Awake and alert, GCS 15 20:50 ECG was reviewed by the Attending Physician. rn Vital Signs: 20:35 BP 175 / 85; Pulse 90; Resp 20 S; Temp 98.2(O); Pulse Ox 95% on R/A; Weight 99.79 kg ca1 (R); Height 6 ft. 0 in. (182.88 cm) (R); 22:24 BP 138 / 87; Pulse 81; Resp 18; Pulse Ox 98% on R/A; mg2 23:41 BP 161 / 73; Pulse 82; Resp 18; Pulse Ox 99% on R/A; mg2 09/04 00:40 BP 165 / 89; Pulse 87; Resp 18; Temp 98; Pulse Ox 100% on R/A; mg2 09/03 20:35 Body Mass Index 29.84 (99.79 kg, 182.88 cm) ca1 MDM: 09/03 20:29 Patient medically screened. rn 21:41 Differential diagnosis: acute myocardial infarction, acute pericarditis, anxiety, rn coronary artery disease pleurisy, pneumonia, pneumothorax, pulmonary embolus. Data reviewed: vital signs, nurses notes, lab test result(s), EKG, radiologic studies, plain films, and as a result, I will discharge patient. Counseling: I had a detailed discussion with the patient and/or guardian regarding: the historical points, exam findings, and any diagnostic results supporting the discharge/admit diagnosis, lab results, radiology results, the need for further work-up and treatment in the hospital. Admission orders: after a detailed discussion of the patient's condition and case, the admit orders are written by me. ED course: Pt with worsening renal function, unable to get CT PE protocol in ER to rule out PE, also, hyperglycemic without AG, will admit to Dr. Valente for further w/u. Neg trop and ECG without ischemia. On Eliquis. . 09/03 20:42 Order name: Blood Culture Adult (2) 09/03 20:42 Order name: BMP; Complete Time: 21:33 09/03 20:42 Order name: CBC with Diff; Complete Time: 21:17 09/03 20:42 Order name: NT PRO-BNP; Complete Time: 21:33 09/03 20:42 Order name: PT-INR; Complete Time: 21:55 09/03 20:42 Order name: Ptt, Activated; Complete Time: 21:55 09/03 20:42 Order name: Troponin (emerg Dept Use Only); Complete Time: 21:33 09/03 20:42 Order name: Flu; Complete Time: 21: 09/03 22:31 Order name: Urine Dipstick--Ancillary (enter results); Complete Time: 22:46 mt 09/03 23:04 Order name: CBC with Automated Diff EDTN 09/03 23:04 Order name: CBC with Automated Diff EDTN 09/03 23:04 Order name: Comprehensive Metabolic Panel EDTN 09/03 23:04 Order name: Comprehensive Metabolic Panel [facility] 09/04 00:19 Order name: Glucose, Ancillary Testing [facility] 09/03 20:42 Order name: XRAY CXR (1 view); Complete Time: 21:25 09/03 20:42 Order name: EKG; Complete Time: 20:43 09/03 20:42 Order name: Cardiac monitoring; Complete Time: 21: rn 09/03 20:42 Order name: EKG - Nurse/Tech; Complete Time: 21: rn 09/03 20:42 Order name: IV Saline Lock; Complete Time: 21: rn 09/03 20:42 Order name: Labs collected and sent; Complete Time: 21: rn 09/03 20:42 Order name: O2 Per Protocol; Complete Time: 21: rn 09/03 20:42 Order name: O2 Sat Monitoring; Complete Time: 21: rn 09/03 23:04 Order name: CONS Pharmacy Consult EDMS 09/03 23:04 Order name: Consistent Carb (ADA) [address] EDMS 09/03 23:04 Order name: Heart Healthy EDTN EC:50 Rate is 87 beats/min. Rhythm is regular. Left axis deviation noted. QRS is positive in rn lead I and negative in lead aVF. UT interval is normal. QRS interval is normal. QT interval is normal. No Q waves. T waves are Normal. No ST changes noted. Clinical impression: NSR w/ Non-specific ST/T Changes and LAD. Interpreted by me. Reviewed by me. Administered Medications: 22:55 Drug: Insulin Regular Human 10 units {Co-Signature: [email or web address] (Inder Paredes RN).} Route: mg2 Sub-Q; Site: right lower abdomen; 09/04 00:14 Follow up: Response: No adverse reaction; Blood sugar is lowered mg2 09/03 22:55 Drug: Albuterol 2.5 mg Route: Inhalation; mg2 09/04 00:13 Follow up: Response: No adverse reaction mg2 Disposition: 09/04/19 21:44 Hospitalization ordered by Justin Valente for Observation. Preliminary diagnosis are Dyspnea, unspecified, Hyperglycemia, unspecified, Folliculitis. - Bed requested for Telemetry/MedSurg (observation). - Status is Observation. mg2 - Condition is Stable. - Problem is new. - Symptoms have improved. Signatures: Dispatcher [employer] [facility] Anita Larry RN RN mw Nieto, Roman, MD MD rn Gardose, Michele, RN RN mg2 Angelica Hood RN RN ca1 Inder Paredes RN [email or web address] Corrections: (The following items were deleted from the chart) 09/03 23:58 21:44 Hospitalization Ordered by Justin Valente MD for Observation. Preliminary mw diagnosis is Dyspnea, unspecified; Hyperglycemia, unspecified; Folliculitis. Bed requested for Telemetry/MedSurg (observation). Status is Observation. Condition is Stable. Problem is new. Symptoms have improved. rn 09/04 00:43 09/03 23:58 09/04/2019 21:44 Hospitalization Ordered by Justin Valente MD for mg2 Observation. Preliminary diagnosis is Dyspnea, unspecified; Hyperglycemia, unspecified; Folliculitis. Bed requested for Telemetry/MedSurg (observation). Status is Observation. Condition is Stable. Problem is new. Symptoms have improved. mw
--- NOTE | 2019-09-04 21:46 | ER ---
Nurse's Notes [facility] Name: Gasper Fry Age: 59 yrs Sex: Male : 1960 Arrival Date: 09/04/2019 Time: 20:18 Bed 17 Private MD: Diagnosis: Dyspnea, unspecified;Hyperglycemia, unspecified;Folliculitis Presentation: 09/03 20:35 Chief complaint: Patient states: Chest pain since last night. SOB for a couple of weeks ca1 on/off. Cough x 1 week. Pus spots across the groin area. Denies fever. Coronavirus screen: Surgical mask placed on patient. Patient moved to private room, placed in contact and droplet isolation with eye protection until further assessment. Patient reports a cough. Patient reports shortness of breath or difficulty breathing. Patient denies measured and/or subjective temperature greater than 100.4F. Patient denies travel on a cruise ship or to a country the [facility] currently lists as an affected area. Patient denies contact with known and/or suspected case of COVID-19. Ebola Screen: Patient negative for fever greater than or equal to 101.5 degrees Fahrenheit, and additional compatible Ebola Virus Disease symptoms Patient denies exposure to infectious person. Patient denies travel to an Ebola-affected area in the 21 days before illness onset. No symptoms or risks identified at this time. Initial Sepsis Screen: Does the patient meet any 2 criteria? No. Patient's initial sepsis screen is negative. Does the patient have a suspected source of infection? No. Patient's initial sepsis screen is negative. Risk Assessment: Do you want to hurt yourself or someone else? Patient reports no desire to harm self or others. Note Pt put on mask, pt states, "I am having hard time breathing with this mask on". Onset of symptoms was September 04, 2019. 20:35 Method Of Arrival: Wheelchair ca1 20:35 Acuity: DARREL 3 ca1 Historical: - Allergies: 20:40 Haldol (Anaphylaxis); ca1 20:40 Narcan (Anaphylaxis); ca1 - Home Meds: 20:40 hydrocodone-acetaminophen 10-325 mg Oral tab 1 tab twice a day [Active]; Eliquis 5 mg ca1 Oral tab 1 tab 2 times per day [Active]; metoprolol tartrate 50 mg Oral tab 1 tab 2 times per day [Active]; atorvastatin 40 mg oral tab 1 tab once daily [Active]; losartan 50 mg oral tab 1 tab once daily [Active]; Novolin 70/30 Innolet 45 units Sub-Q 45 units twice a day with meals [Active]; Victoza 2-Reid subcutaneous subcutaneous [Active]; - PMHx: 20:40 ADD/ADHD; Anxiety; Bipolar disorder; Cellulitis; Chronic pain; CVA; Diabetes - IDDM; ca1 Hypertension; neuropathy; Seizures; - PSHx: 20:40 stent on my left leg; ca1 - Immunization history:: Adult Immunizations up to date, Pneumococcal vaccine is up to date, Flu vaccine is up to date. - Family history:: not pertinent. - Social history:: Smoking status: unknown. - Hospitalizations: : No recent hospitalization is reported. Screenin:06 Abuse screen: Denies threats or abuse. Denies injuries from another. Nutritional mg2 screening: No deficits noted. Tuberculosis screening: No symptoms or risk factors identified. Fall Risk IV access (20 points). Assessment: 21:04 General: Appears in no apparent distress. comfortable, Behavior is calm, cooperative. mg2 Pain: Complains of pain in chest Pain does not radiate. Pain currently is 3 out of 10 on a pain scale. Quality of pain is described as aching, Pain began gradually, Is intermittent. Neuro: Level of Consciousness is awake, alert, obeys commands, Oriented to person, place, time, situation. Cardiovascular: Reports chest pain, Capillary refill < 3 seconds Patient's skin is warm and dry. Respiratory: Airway is patent Respiratory effort is even, unlabored, Respiratory pattern is regular, symmetrical. GI: Reports nausea. : No signs and/or symptoms were reported regarding the genitourinary system. EENT: No signs and/or symptoms were reported regarding the EENT system. Derm: Skin is intact, is healthy with good turgor, Skin is pink, warm \\T\\ dry. normal. Vital Signs: 20:35 BP 175 / 85; Pulse 90; Resp 20 S; Temp 98.2(O); Pulse Ox 95% on R/A; Weight 99.79 kg ca1 (R); Height 6 ft. 0 in. (182.88 cm) (R); 22:24 BP 138 / 87; Pulse 81; Resp 18; Pulse Ox 98% on R/A; mg2 23:41 BP 161 / 73; Pulse 82; Resp 18; Pulse Ox 99% on R/A; mg2 09/04 00:40 BP 165 / 89; Pulse 87; Resp 18; Temp 98; Pulse Ox 100% on R/A; mg2 09/03 20:35 Body Mass Index 29.84 (99.79 kg, 182.88 cm) ca1 ED Course: 09/03 20:18 Patient arrived in ED. ag3 20:29 Tayo Rivas MD is Attending Physician. rn 20:29 Mehul Ponce, MALU is Primary Nurse. mg2 20:38 Triage completed. ca1 20:40 Arm band placed on right wrist. ca1 20:55 XRAY CXR (1 view) In Process Unspecified. EDMS 21:00 Patient maintains SpO2 saturation greater than 95% on room air. mg2 21:06 No provider procedures requiring assistance completed. Inserted saline lock: 20 gauge mg2 in left forearm, using aseptic technique. Blood collected. 21:07 Patient has correct armband on for positive identification. court recording monitor on. Pulse mg2 ox on. NIBP on. Door closed. Warm blanket given. 21:44 Justin Valente MD is Hospitalizing Provider. rn 22:36 Patient admitted, IV remains in place. mg2 Administered Medications: 22:55 Drug: Insulin Regular Human 10 units {Co-Signature: [email or web address] (Inder Paredes RN).} Route: mg2 Sub-Q; Site: right lower abdomen; 09/04 00:14 Follow up: Response: No adverse reaction; Blood sugar is lowered mg2 09/03 22:55 Drug: Albuterol 2.5 mg Route: Inhalation; mg2 09/04 00:13 Follow up: Response: No adverse reaction mg2 Output: 00:13 Urine: 200ml (Voided); Total: 200ml. mg2 Outcome: 09/03 21:44 Decision to Hospitalize by Provider. rn 09/04 00:35 Admitted to Tele accompanied by nurse, via wheelchair, room 409, with chart, Report mg2 called to MALU Castillo Condition: stable Instructed on the need for admit, Demonstrated understanding of instructions. 00:43 Patient left the ED. mg2 Signatures: Dispatcher [employer] EDMS Tayo Rivas MD MD rn Gardose, Michele, RN RN mg2 Xiomara Eason ag3 Angelica Hood RN RN ca1 Inder Paredes RN [email or web address]
[2019-09-04 22:44] LABS: Urine Glucose 2+ (NEG); Urine Specific Gravity 1.025 (1.005-1.030)
[2019-09-04 22:45] LABS: Urine Blood 1+ (NEG); Urine Protein 3+ (NEG); Urine pH 5.5 (5.0-7.0)
[2019-09-04] MEDS ORDERED: ALBUTEROL 2.5 MG/3 ML NEB SOL ONE (22:54)
[2019-09-04] MEDS ORDERED: INSULIN -REGULAR HUMAN 50 UNIT/0.5 ML ML ONE (22:58)
[2019-09-04] MEDS ORDERED: ACETAMINOPHEN 500 MG TAB PO PRN (23:02)
[2019-09-04] MEDS ORDERED: ONDANSETRON 4 MG/2 ML VIAL IV PRN (23:02)
[2019-09-04] MEDS ORDERED: NA CHLORIDE 0.9% 1,000 ML IV SCH (23:45)
[2019-09-05] MEDS: MORPHINE 4 MG/ML SYR IV PRN ×5 (01:30→21:22)
[2019-09-05 03:22] VITALS: BMI 29.8
[2019-09-05 06:51] LABS: Absolute Lymphocytes (CBC) 2.2 K/uL (0.7-4.9); Basophils % 0.6 % (0-1.3); Hematocrit 33.9 % (39.6-49.0); Lymphocytes % 34.9 % (15.3-44.8); MPV 8.7 fL (7.6-11.3)
[2019-09-05 07:05] LABS: Albumin 3.2 g/dL (3.4-5.0); Bilirubin Total 0.2 mg/dL (0.2-1.0); Potassium 5.1 mmol/L (3.5-5.1)
--- NOTE | 2019-09-05 07:26 | P.HP ---
Certification for Inpatient Patient admitted to: Observation With expected LOS: <2 Midnights Patient will require the following post-hospital care: None Practitioner: I am a practitioner with admitting privileges, knowledge of patient current condition, hospital course, and medical plan of care. Services: Services provided to patient in accordance with Admission requirements found in Title 42 Section 412.3 of the Code of Federal Regulations Patient History Date of Service: 09/05/19 Reason for admission: Patient came in with shortness of breath and chest pain History of Present Illness: Patient is a 59-year-old gentleman who was well known to me from prior multiple admissions. He came to the hospital with shortness of breath. He was also having some chest discomfort. He gets these frequent symptoms whenever he is anxious. His been really concerned about what is been going on in the knees with the morejon virus as he and his have a lot of medical conditions. He suffers from schizophrenia and has had be a real disorders. He has been in the hospital on numerous occasions. He has also been very aggressive at times and has had to be escorted. However, on this occasion he seems to be doing very well. His psychiatrist has his medication regimen to where he is being very polite & functional. In the emergency room, he was seen by the ER physician who was concerned with this shortness of breath. He also had acute on chronic renal insufficiency. Plan was to do a CT PE protocol as patient has had a history of DVT. However, with his creatinine elevated this was not able to be done. I will go ahead and admit him to the hospital. Will monitor him symptomatically. Will also check his troponins serially. May need to order V/ Q scan but offers monitor a D-dimer in a.m. and if this is normal then we can hold off on V/Q scan. If this comes back elevated then we can schedule the V/Q scan for Friday morning. Allergies haloperidol [From Haldol] Allergy (Verified 12/11/18 20:38) Anaphylaxis naloxone [From Narcan] Allergy (Verified 12/11/18 20:38) Anaphylaxis Home Medications: Amphet Asp/Amphet/D-Amphet [Adderall 30 mg Tablet] 30 mg PO BID 03/29/19 Apixaban [Eliquis *] 5 mg PO BID 03/29/19 Benztropine Mesylate [Cogentin] 0.5 mg PO BID 03/29/19 Duloxetine [Cymbalta *] 120 mg PO DAILY 03/29/19 Hydrocodone Bit/Acetaminophen [Hydrocodon-Acetaminophn 10-325] 1 tab PO BID Losartan Potassium [Cozaar*] 50 mg PO BEDTIME 03/29/19 Tramadol HCl [Ultram] 50 mg PO BID 03/29/19 clonazePAM [Clonazepam] 1 mg PO BID 03/29/19 Atorvastatin Calcium [Lipitor] 40 mg PO DAILY 09/05/19 Divalproex Sodium [Depakote ER] 1,500 mg PO TID 09/05/19 Insulin 70/30 NPH/Reg Human [Novolin 70/30*] 65 units SQ BIDWM 09/05/19 Liraglutide [Victoza 2-Reid] 1.8 mg SQ DAILY 09/05/19 Metoprolol Tartrate [Lopressor*] 50 mg PO BID 09/05/19 Risperidone 4 mg PO BEDTIME 09/05/19 - Past Medical/Surgical History Has patient received pneumonia vaccine in the past: Yes Diabetic: Yes -: Diabetes mellitus type 2, insulin-dependent -: Hypertension -: Seizure disorder -: Peripheral vascular disease -: History of osteomyelitis -: Hyperlipidemia -: Bipolar disorder -: Tobacco abuse -: schizophrenia -: History of amputation to the left great toe -: History of blood clots -: seizures -: Neck and back surgery -: Right eye removal -: Right knee surgery -: Bilateral wrist surgery due to suicide attempt -: Left great toe amputation Psychosocial/ Personal History: Patient is . He has 2 children. He lives at home. - Family History Brother Medical History: Hypertension Sister Medical History: Diabetes Father Medical History: Heart disease Notes: heart attack Mother Medical History: Diabetes - Social History Smoking Status: Current some day smoker Alcohol use: No CD- Drugs: No Caffeine use: Yes Place of Residence: Home Review of Systems 10-point ROS is otherwise unremarkable Physical Examination - Vital Signs Temperature: 97.4 F Blood Pressure: 160/70 Pulse: 81 Respirations: 18 Pulse Ox (%): 98 - Physical Exam General: Alert, In no apparent distress, Oriented x3 HEENT: Atraumatic, PERRLA, Mucous membr. moist/pink, EOMI, Sclerae nonicteric Neck: Supple, 2+ carotid pulse no bruit, No LAD, Without JVD or thyroid abnormality Respiratory: Clear to auscultation bilaterally, Normal air movement Cardiovascular: Regular rate/rhythm, Normal S1 S2, No murmurs Gastrointestinal: Normal bowel sounds, Soft and benign, Non-distended, No tenderness Musculoskeletal: No clubbing, No swelling, No tenderness Integumentary: No rashes Neurological: Normal gait, Normal speech, Normal strength at 5/5 x4 extr, Normal tone, Sensation intact, Cranial nerves 3-12 intact, Normal affect Lymphatics: No axilla or inguinal lymphadenopathy - Studies Laboratory Data (last 24 hrs) 09/04/19 21:00: PT 11.0, INR 0.93, APTT 27.9 09/04/19 21:00: WBC 6.0, Hgb 12.2 L, Hct 35.7 L, Plt Count 221 09/04/19 21:00: Sodium 134 L, Potassium 5.1, BUN 37 H, Creatinine 2.48 H, Glucose 409 H* Microbiology Data (last 24 hrs): 09/04/19 21:00 Nasopharnyx Influenza Type A Antigen Screen - Final 09/04/19 21:00 Nasopharnyx Influenza Type B Antigen Screen - Final Assessment & Plan - Problems (Diagnosis) (1) LISBETH (acute kidney injury) Onset Date: 02/19/17 Current Visit: No Status: Acute (2) Chest pain Current Visit: No Status: Inactive (3) Dyspnea Current Visit: Yes Status: Acute Qualifiers: Dyspnea type: shortness of breath Qualified Code(s): R06.02 - Shortness of breath; R06.00 - Dyspnea, unspecified; R06.01 - Orthopnea (4) Bipolar disorder Onset Date: 01/02/15 Current Visit: No Status: Chronic Qualifiers: (5) Claustrophobia Current Visit: No Status: Chronic (6) DM2 (diabetes mellitus, type 2) Current Visit: No Status: Chronic Qualifiers: (7) Deep vein thrombosis (DVT) of left lower extremity Current Visit: No Status: Chronic Qualifiers: (8) Depression Current Visit: No Status: Chronic (9) History of CVA (cerebrovascular accident) Current Visit: No Status: Chronic (10) Hx of suicide attempt Current Visit: No Status: Chronic (11) Hypertension Onset Date: 04/24/15 Current Visit: No Status: Chronic Qualifiers: (12) Neuropathy Current Visit: No Status: Chronic (13) Schizophrenia Onset Date: 02/19/17 Current Visit: No Status: Chronic Qualifiers: (14) Seizure disorder Onset Date: 04/24/15 Current Visit: No Status: Chronic - Plan Plan: 1. Hydrate gently to correct renal insufficiency 2. Check D-dimer as well as troponins. 3. Patient is on Eliquis so he is being adequately treated even if he had a pulmonary embolism. He is not hypoxic,and his symptoms tend to be fairly vague. We can do a V/Q scan but I will think the latter much to the treatment plan. My main goal will be to correct his renal insufficiency. If he is having chest pain and worsening shortness of breath then we can consider doing further diagnostic studies but with him on Eliquis he should be fairly well anticoagulated. 4. Continue his antipsychotic as well as is other psychiatric medications. He does tend to become angry and aggressive if these are not given routinely. He is on a very get schedule an I have never seen him so a relaxed and calm and appropriate in all my years of taking care of him. Will continue the regimen while in the hospital. He is on large doses of Depakote but apparently it is working for him. Continue this along with his Risperdal, Klonopin, Cymbalta, and his pain medications. 5. GI and DVT prophylaxis Discharge Plan: Home Plan to discharge in: 48 Hours - Advance Directives Does patient have a Living Will: Yes Does patient have a Durable POA for Healthcare: Yes - Code Status/Comfort Care Code Status Assessed: Yes Code Status: Full Code Critical Care: No Time Spent Managing PTS Care (In Minutes): 45
[2019-09-05] MEDS: INSULIN -REGULAR HUMAN 50 UNIT/0.5 ML ML SQ SCH ×4 (07:30→21:00)
[2019-09-05] MEDS ORDERED: RISPERIDONE 1 MG TABLET PO ONE (08:00)
[2019-09-05] MEDS ORDERED: NA CHLORIDE 0.9% 1,000 ML IV SCH (08:00)
[2019-09-05] MEDS: AMPHET ASP PO SCH ×2 (09:00→21:00)
[2019-09-05] MEDS: HYDROCODONE/APAP 10/325 TAB PO SCH ×3 (09:00→21:00)
[2019-09-05] MEDS: TRAMADOL HCL 50 MG TAB PO SCH ×2 (09:00→21:00)
[2019-09-05] MEDS: AMPHET PO SCH ×2 (09:00→21:00)
[2019-09-05] MEDS: DULOXETINE 30 MG CAP PO SCH (09:00)
[2019-09-05] MEDS ORDERED: HOME MED 1 EA UNK (Divalproex Sodium [Depakote Er] 1,500 MG) PO SCH (09:00)
[2019-09-05] MEDS: BENZTROPINE 1 MG TAB PO SCH ×2 (09:00→21:00)
[2019-09-05] MEDS ORDERED: BENZTROPINE MESYLATE 0.5 MG PO SCH (09:00)
[2019-09-05] MEDS: Liraglutide [Victoza 2-Pak] 1.8 MG SQ SCH ×2 (09:00→09:18)
[2019-09-05] MEDS: clonazePAM 1 MG TAB PO SCH ×3 (09:00→23:49)
[2019-09-05] MEDS: D AMPHET PO SCH ×2 (09:00→21:00)
[2019-09-05] MEDS: DIVALPROEX DR 500MG TAB PO SCH ×3 (09:00→21:00)
[2019-09-05] MEDS: ATORVASTATIN 40 MG TAB PO SCH (09:16)
[2019-09-05] MEDS: METOPROLOL TAR 50 MG TAB PO SCH ×2 (09:16→21:36)
[2019-09-05] MEDS: APIXABAN 5 MG TABLET PO SCH ×2 (09:16→21:39)
--- NOTE | 2019-09-05 09:16 | EKG ---
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
[2019-09-05] MEDS: INSULIN 70/30 100 UNITS/ML SQ SCH ×2 (09:18→17:46)
[2019-09-05] MEDS ORDERED: LORazepam 2 MG/ML VIAL IV ONE (11:00)
[2019-09-05] MEDS: NA CHLORIDE 0.9% 1,000 ML IV SCH ×2 (11:59→22:31)
--- NOTE | 2019-09-05 12:15 | P.PN ---
Date of Service: 09/05/19 Patient was refusing Eliquis because he feels it was making him short of breath. He also feels his psych meds are also making him short of breath. I informed him it is unlikely for the Eliquis to make him short of breath bowel should rather protect him from developing pulmonary embolism. His D-dimer is within normal range. Pulmonary embolism is highly unlikely. Management will not change even if he has shortness of breath and will not pursue V/Q scan. Serum creatinine has started trending down. Troponin x2 negative. Continue to trend troponin. Continue IV hydration. All psych meds resumed. Ativan p.r.n. for anxiety.
[2019-09-05] MEDS ORDERED: LORazepam 2 MG/ML VIAL IV PRN (17:15)
[2019-09-05] MEDS ORDERED: LOSARTAN POTASSIUM 50 MG TABLET PO SCH (21:00)
[2019-09-05] MEDS ORDERED: RISPERIDONE 1 MG TABLET PO SCH (21:00)
[2019-09-05] MEDS ORDERED: RISPERIDONE 4 MG PO SCH (21:00)
[2019-09-06] MEDS: MORPHINE 4 MG/ML SYR IV PRN (03:23)
[2019-09-06 04:48] LABS: Potassium 4.5 mmol/L (3.5-5.1)
[2019-09-06] MEDS: INSULIN -REGULAR HUMAN 50 UNIT/0.5 ML ML SQ SCH (07:30)
[2019-09-06] MEDS: INSULIN 70/30 100 UNITS/ML SQ SCH (08:00)
[2019-09-06 08:24] VITALS: BP 158/90; TEMP 97.2
[2019-09-06] MEDS: APIXABAN 5 MG TABLET PO SCH (09:00)
[2019-09-06] MEDS: BENZTROPINE 1 MG TAB PO SCH (09:00)
[2019-09-06] MEDS: AMPHET ASP PO SCH (09:00)
[2019-09-06] MEDS: clonazePAM 1 MG TAB PO SCH (09:00)
[2019-09-06] MEDS: D AMPHET PO SCH (09:00)
[2019-09-06] MEDS: DULOXETINE 30 MG CAP PO SCH (09:00)
[2019-09-06] MEDS: TRAMADOL HCL 50 MG TAB PO SCH (09:00)
[2019-09-06] MEDS: ATORVASTATIN 40 MG TAB PO SCH (09:00)
[2019-09-06] MEDS: METOPROLOL TAR 50 MG TAB PO SCH (09:00)
[2019-09-06] MEDS: HYDROCODONE/APAP 10/325 TAB PO SCH (09:00)
[2019-09-06] MEDS: AMPHET PO SCH (09:00)
[2019-09-06] MEDS: DIVALPROEX DR 500MG TAB PO SCH (09:00)
[2019-09-06] MEDS: Liraglutide [Victoza 2-Pak] 1.8 MG SQ SCH (09:00)
--- NOTE | 2019-09-06 09:48 | P.DS ---
Admission Date: 09/04/19 Discharge Date: 09/06/19 Disposition: ROUTINE DISCHARGE Discharge Condition: GOOD Reason for Admission: Patient came in with shortness of breath and chest pain Consultations: none Procedures: CXR: COMPARISON: Chest Single View dated 03/28/2019; Chest Single View dated 2018; Chest Single View dated 07/22/2018; Chest Single View dated 05/11/2018 FINDINGS: Portable technique limits examination quality. The lungs are grossly clear. The heart is normal in size. No displaced fractures. IMPRESSION: No acute intrathoracic process suspected. Medical Problem List: Shortness of breath likely underlying COPD Acute renal injury likely dehydration Schizophrenia complicated with bipolar disorder Diabetes mellitus type 2 Hypertension History of DVT on chronic anti coagulation therapy History CVA History of seizure disorder Brief History of Present Illness: 59-year-old male with multiple medical problems including diabetes, hypertension, chronic renal disease, COPD, schizophrenia, bipolar disorder, history of DVT on chronic anti coagulation therapy. Patient presented with shortness of breath. Chest x-ray unremarkable in the emergency room. Patient currently on Eliquis for DVT. Patient was admitted for further evaluation. Initial lab showed mild dehydration. Hospital Course: Patient presented with shortness of breath. This is likely related to underlying COPD. Patient with history of tobacco abuse. Patient not taking any medication. Vital signs remained stable. At discharge she is without significant shortness of breath. D-dimer negative. No indication for CT at this time. At discharge will recommend to start Advair 1 puff twice daily and Pro air 2 puffs 3 times a day as needed for shortness of breath. Patient may follow up with pulmonology as an outpatient to further evaluate. Patient may benefit with pulmonary function test to further evaluate for underlying COPD. Patient also had acute on chronic renal failure. Patient was given IV fluid is. His condition improved. Patient now at baseline stage III. Recommend no further use of nonsteroidal anti-inflammatories. Future medications will need to be renally dosed. Recommend to recheck lab-BMP in 1-2 weeks to monitors progress. Patient with schizophrenia and bipolar disorder. At discharge patient may continue with his current medications. Will recommend follow up with psychiatry in 1-2 weeks to further monitor and address this condition. Patient with history of DVT on chronic anti coagulation therapy. Patient takes Eliquis. D-dimer negative. At this time will recommend for the patient to continue with Eliquis 5 mg 1 pill twice daily. Patient may follow up with his PCP to further monitor. Patient reports history of lower extremity stent. Recommend follow up with his vascular surgeon. He has been told that he may need to see a vein specialist. This can be further addressed as an outpatient. Patient with diabetes mellitus type 2. At discharge he will continue with his current medications. Patient with hypertension. At discharge he will continue with his current medications. Vital Signs/Physical Exam: Temp Pulse Resp BP Pulse Ox 97.2 F 73 18 158/90 H 96 09/06/19 08:00 09/06/19 08:00 09/06/19 08:00 09/06/19 08:00 09/06/19 08:00 General: Alert, Other (Increase anxiety) HEENT: Atraumatic Neck: Supple Respiratory: Clear to auscultation bilaterally, Normal air movement Cardiovascular: Normal pulses, Regular rate/rhythm Gastrointestinal: Normal bowel sounds, Soft and benign, Non-distended Neurological: Normal speech, Normal strength at 5/5 x4 extr, Normal tone, Abnormal affect (Increased anxiety) Laboratory Data at Discharge: WBC 6.2 K/uL (4.3-10.9) 09/05/19 06:40 Hgb 11.7 g/dL (13.6-17.9) L 09/05/19 06:40 Hct 33.9 % (39.6-49.0) L 09/05/19 06:40 Plt Count 210 K/uL (152-406) 09/05/19 06:40 PT 11.0 SECONDS (9.5-12.5) 09/04/19 21:00 INR 0.93 09/04/19 21:00 APTT 27.9 SECONDS (24.3-36.9) 09/04/19 21:00 Sodium 140 mmol/L (136-145) 09/06/19 03:58 Potassium 4.5 mmol/L (3.5-5.1) 09/06/19 03:58 BUN 31 mg/dL (7-18) H 09/06/19 03:58 Creatinine 1.32 mg/dL (0.55-1.3) H 09/06/19 03:58 Glucose 179 mg/dL (74-106) H 09/06/19 03:58 Total Bilirubin 0.2 mg/dL (0.2-1.0) 09/05/19 06:40 AST 15 U/L (15-37) 09/05/19 06:40 ALT 21 U/L (12-78) 09/05/19 06:40 Alkaline Phosphatase 107 U/L (45-117) 09/05/19 06:40 Troponin I < 0.02 ng/mL (0.0-0.045) 09/05/19 12:49 Home Medications: Amphet Asp/Amphet/D-Amphet [Adderall 30 mg Tablet] 30 mg PO BID 03/29/19 Apixaban [Eliquis *] 5 mg PO BID 03/29/19 Benztropine Mesylate [Cogentin] 0.5 mg PO BID 03/29/19 Duloxetine [Cymbalta *] 120 mg PO DAILY 03/29/19 Hydrocodone Bit/Acetaminophen [Hydrocodon-Acetaminophn 10-325] 1 tab PO BID Losartan Potassium [Cozaar*] 50 mg PO BEDTIME 03/29/19 Tramadol HCl [Ultram] 50 mg PO BID 03/29/19 clonazePAM [Clonazepam] 1 mg PO BID 03/29/19 Atorvastatin Calcium [Lipitor] 40 mg PO DAILY 09/05/19 Divalproex Sodium [Depakote ER] 1,500 mg PO TID 09/05/19 Insulin 70/30 NPH/Reg Human [Novolin 70/30*] 65 units SQ BIDWM 09/05/19 Liraglutide [Victoza 2-Reid] 1.8 mg SQ DAILY 09/05/19 Metoprolol Tartrate [Lopressor*] 50 mg PO BID 09/05/19 Risperidone 4 mg PO BEDTIME 09/05/19 Albuterol Sulfate [Proair Hfa] 2 puff IH TID PRN #1 hfa.[email or web address] 09/06/19 Fluticasone/Salmeterol [Advair 250-50 Diskus] 1 each IH BID #1 blst.w.dev New Medications: Albuterol Sulfate [Proair Hfa] 2 puff IH TID PRN #1 hfa.aer.ad PRN Reason: Shortness Of Breath Fluticasone/Salmeterol [Advair 250-50 Diskus] 1 each IH BID #1 blst.w.dev Patient Discharge Instructions: 1. Follow up with PCP to follow up this hospitalization. 2. Shortness of breath likely COPD related. Will start Advair 1 puff BID and Proair 2 puffs TID as needed for SOB. Follow up with Pulmonary as outpatient. 3. Continue with home meds including Eliquis. Diet: ADA Activity: Ad samantha Time spent managing pt's care (in minutes): 55
[2019-09-06 09:49] VITALS: O2SAT 96
--- NOTE | 2019-09-07 05:26 | EKG ---
Test Date: 2019-09-05 Test Time: 21:33:52 Colorer Machine: KALEB MEASUREMENT RESULTS: Intervals: Rate: 73 [place]: 166 QRSD: 90 QT: 408 QTc: 449 [place]: P: 46 [place]: 166 QRS: -38 T: 33 INTERPRETIVE STATEMENTS: Normal sinus rhythm Left axis deviation Minimal voltage criteria for LVH, may be normal variant Possible Anterior infarct, age undetermined Abnormal ECG Compared to ECG 09/04/2019 20:44:01 Left ventricular hypertrophy now present Myocardial infarct finding still present Electronically Signed On 09-07-19 05:25:08 CDT by Tyler Gomez
== END 2019-09-06 09:15 | disposition home or self-care (01) ==
LOC: ER 20:16 → ERHOLD 23:02 → 4TH 09-05 00:37
PROVIDERS: ADMIT Hospitalist; ATTEND Family Medicine
DX: R06.02 Shortness of breath (principal); N17.9 Acute kidney failure, unspecified; E11.22 Type 2 diabetes mellitus with diabetic chronic kidney disease; I12.9 Hypertensive chronic kidney disease with stage 1 through stage 4 chronic kidney disease, or unspecified chronic kidney disease; N18.3 Chronic kidney disease, stage 3 (moderate); E86.0 Dehydration; R07.9 Chest pain, unspecified; R06.00 Dyspnea, unspecified; R06.01 Orthopnea; R94.31 Abnormal electrocardiogram [ECG] [EKG]; E11.65 Type 2 diabetes mellitus with hyperglycemia; L73.9 Follicular disorder, unspecified; F31.9 Bipolar disorder, unspecified; F20.9 Schizophrenia, unspecified; G40.909 Epilepsy, unspecified, not intractable, without status epilepticus; E11.40 Type 2 diabetes mellitus with diabetic neuropathy, unspecified; E11.51 Type 2 diabetes mellitus with diabetic peripheral angiopathy without gangrene; E78.5 Hyperlipidemia, unspecified; F41.9 Anxiety disorder, unspecified; F90.9 Attention-deficit hyperactivity disorder, unspecified type; G89.29 Other chronic pain; F40.240 Claustrophobia; F17.200 Nicotine dependence, unspecified, uncomplicated; Z79.01 Long term (current) use of anticoagulants; Z79.4 Long term (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; Z79.899 Other long term (current) drug therapy; Z86.718 Personal history of other venous thrombosis and embolism; Z89.412 Acquired absence of left great toe; Z86.73 Personal history of transient ischemic attack (TIA), and cerebral infarction without residual deficits; Z87.39 Personal history of other diseases of the musculoskeletal system and connective tissue
CPT/HCPCS: 93005 ×2; 87040 ×2; 85025 ×2; 80048 ×2; 36415 ×2; 85610; 82947 ×6; 85379; 85730; 81003; 84484 ×3; 80053; 83880; 87804 ×2; 71045; 96372; 99285; J7030 ×3; J2405; G0378 ×3; J1815

== ENCOUNTER 2019-12-01 14:03 | Inpatient (IN) | payer OTHER ==
[2019-12-01 15:11] LABS: Absolute Lymphocytes (CBC) 1.8 K/uL (0.7-4.9); Basophils % 0.4 % (0-1.3); Hematocrit 34.9 % (39.6-49.0); Lymphocytes % 28.9 % (15.3-44.8); MPV 9.3 fL (7.6-11.3); RBC Red Blood Cell Count 3.82 M/uL (4.33-5.43)
--- NOTE | 2019-12-01 15:20 | RAD REPORT ---
EXAM DESCRIPTION: CT - Head Brain Wo Cont - 12/01/2019 3:11 pm CLINICAL HISTORY: MENTAL STATUS CHANGE COMPARISON: Head Brain Wo Cont dated 07/22/2018 TECHNIQUE: Axial 5 mm thick images of the head were obtained without IV contrast. All CT scans are performed using dose optimization technique as appropriate and may include automated exposure control or mA/KV adjustment according to patient size. FINDINGS: No intracranial hemorrhage, mass, edema or shift of mid-line structures. No acute infarcti on changes seen. No abnormal extra-axial fluid collections. Patient does appear to have some minimal volume loss. Ventricles are in proportion to any volume loss. No significant change from comparison s monique. Postsurgical changes with right orbit prosthesis. Mastoid air cells and visualized portions of the paranasal sinuses are clear. No acute bony findings. IMPRESSION: Negative non-contrast CT head examination for acute finding. No significant change from July 2018 study.
[2019-12-01 15:25] LABS: Potassium 3.9 mmol/L (3.5-5.1)
--- NOTE | 2019-12-01 15:57 | RAD REPORT ---
EXAM DESCRIPTION: RAD - Foot Left 3 View - 12/01/2019 3:07 pm CLINICAL HISTORY: r/o osteo, left foot pain COMPARISON: Foot Left 2 View dated 01/04/2019; Foot Left 3 View dated 12/11/2018 FINDINGS: First toe is absent. Degenerative changes are present at the first metatarsal head similar to comparison. The second-fourth metatarsals and phalanges show a minimal degenerative change with n o destructive process seen. No normal fifth metatarsal head present. There is deformity of the distal fifth metatarsal and base of the fifth proximal phalanx. Provided history indicates only first toe a mputation. No detail regarding any surgical change around the fifth MTP joint. The distal end of the fifth metatarsal shaft is smooth and rounded without a destructive process seen. Patient may have that had either surgical resection of the fifth metatarsal head or the patient may h ave had osteomyelitis bone destruction with subsequent resolution. Currently there is no active bone destruction suspicious for osteomyelitis. Stable degenerative change present at the tarsal-metatarsal articulation. Arterial tree calcification s are present. No air or foreign body in the soft tissues. IMPRESSION: Postsurgical or post treatment changes are present involving the fifth metatarsal head a nd fifth MTP joint. No active bone destruction suspicious for osteomyelitis. Osteomyelitis can exist prior to radiographi c bone destruction.
--- OUTSIDE RECORDS SUMMARY | 2019-12-01 15:59 | XMS REPORT | Continuity of Care Document ---
:1960 Author Organization [facility] t Address [address] [place] [address] Care Team Providers Name Role Phone Perry VALENCIA R Attending Clinician Héctor Toscano MD Attending Clinician Payers Payer Name Policy Type Policy Number Effective Date Expiration Date S jonel MEDICAREMEDICARE PART xxxxxxxxxxx 2004 [place] & 00:00:00 Health Bxxxxxxxxxxx2004- [phone], [place] [address] [place] [id number] xxxxxxxxx 2013 [facility] SSI 00:00:00 Health 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 [facility] (current) (current) Luke s - use of use of Memoria insulin insulin l [facility] ent Clinics Chronic Chronic Problem Active [facility] pain pain [facility] - syndrome syndrome Memori a l [facility] Clinics History of History of Diagnosis Active [facility] pulmonary pulmonary Luke s - embolism embolism Memori a l [facility] Clinics Bipolar Bipolar Problem Active [facility] affective affective Luke s - disorder, disorder, Joe cristina currently currently l depressed, depressed, Ou tpati moderate moderate ent Clinics Seizures Seizures Problem [facility] Clinics Generalize Generalize Problem Active [facility] d anxiety d anxiety Luke s - disorder disorder Memori a l [facility] ent Clinics Tobacco Tobacco Problem Active [facility] use use [facility] - disorder disorder Memori a l [facility] ent Clinics 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[facility] 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 Me moria l [facility] ent Clinics Attention Attention Problem Active [facility] deficit deficit [facility] - hyperactiv hyperactiv Me moria ity ity l disorder disorder Outpat i (ADHD), (ADHD), ent combined combined Clinic s type type Chronic Chronic Problem Active [facility] obstructiv obstructiv Rita kes - e e Memoria pulmonary pulmonary l disease, disease, Outpat i unspecifie unspecifie en t d COPD d COPD Clinics type type Type 2 Type [address] [facility] diabetes diabetes [facility] - mellitus mellitus Memori a with with l hyperglyce hyperglyce [facility] Clinics Mixed Mixed Problem Active [facility] hyperlipid hyperlipid Rita kes - emia emia [facility] Clinics Essential Essential Diagnosis Active [facility] hypertensi hypertensi Rita kes - on on Memoria l [facility] ent Clinics Panic Panic Problem Active [facility] disorder disorder [facility] - [episodic [episodic Joe cristina paroxysmal paroxysmal l anxiety] anxiety] Outpat i ent Clinics Current Current Diagnosis Active [facility] moderate moderate [facility] - episode of episode of Me moria major major l depressive depressive Ou tpati disorder disorder ent without without Clinics prior prior episode episode Type 2 Type [address] [facility] diabetes diabetes [facility] - mellitus mellitus Memori a with with l diabetic diabetic Outpat i chronic chronic ent kidney kidney Clinics disease disease Chronic Chronic Problem Active [facility] kidney kidney [facility]ukes - disease, disease, Memori a stage 3 stage 3 l (moderate) (moderate) Ou tpati ent Clinics Hyperkalem Hyperkalem Diagnosis Active [facility] ia ia [facility] Clinics Proteinuri Proteinuri Diagnosis Active [facility] a, a, Lukes - unspecifie unspecifie Me moria d type d type l [facility] ent Clinics Acute deep Acute deep Disease Active H arris vein vein Health thrombosis thrombosis (DVT) of (DVT) of proximal proximal vein of vein of left lower left lower extremity extremity Osteomyeli Osteomyeli Disease Active H arris tis of tis of Health left foot left foot Allergies, Adverse Reactions, Alerts This patient has no known allergies or adverse reactions. Social History Social Habit Start Date Stop Date Quantity Comments Source Sex Assigned At Gabriel Harrington alth Alcohol intake 2019-03-27 2019-03-27 Gabriel Hyde lt 00:00:00 00:00:00 Smoking Status Start Date Stop Date Source Former smoker 2019-03-27 00:00:00 2019-03-27 00:00:00 Gabriel Lujan ealt Medications Ordered Filled Start Stop Current Ordering Indication Dosage Frequency Signature Comments Components Source Medication Medication Date Date Medication? Clinician (SIG) Name Name Uri Grewal Yes Sylvain Inject 1.[address] Dietrich mg/day [facility] Clinics Albuterol Albuterol Yes Sylvain [address] [facility] Sulfate HFA Sulfate HFA Dietrich needed [facility]ics Duloxetine Duloxetine Yes Sylvain [address] [facility] HCl HCl Dietrich [facility]ics Clonazepam Clonazepam Yes Sylvain [address] [facility] [address] Dietrich at bedtime [facility] Clinics NovoLIN NovoLIN Yes Sylvain Inject [address] 70/30 70/30 Dietrich units [facility] - FlexPen FlexPen Memoria l [facility] Clinics Tramadol Tramadol Yes Sylvain [address] HCl HCl Dietrich as needed [facility]ics Hydrocodone Hydrocodone Yes Sylvain [address] [address] -Acetaminop -Acetaminop Dietrich as needed [facility] - hen hen Memoria l [facility] Clinics Eliquis Eliquis Yes Sylvain TAKE 1 [facility] TABLET BY [facility]ukes - MOUTH Memoria TWICE l DAILY [facility] Clinics Benztropine Benztropine Yes Sylvain [address] [facility] [address] Mesylate Mesylate Dietrich at bedtime [facility] Clinics Amphetamine Amphetamine Yes Sylvain [address] -Dextroamph -Dextroamph Dietrich Lukes - etamine etamine Memoria l [facility] Clinics Risperidone Risperidone Yes Sylvain [address] Dietrich [facility]ics Metoprolol Metoprolol Yes Sylvain [address] [facility] [address] Tartrate Tartrate Dietrich with food L ukes - Memoria l [facility] Clinics Losartan Losartan Yes Sylvain [address] Potassium Potassium Dietrich Luke [facility] - Memoria l [facility] Clinics Divalproex Divalproex Yes Sylvain [address] Sodium ER Sodium ER Dietrich Luke s - Memoria l [facility] Clinics BusPIRone BusPIRone Yes Sylvain [address] [facility] HCl HCl Dietrich [facility] Clinics Pen Webster Pen Webster Yes Sylvain N/s [facility] Dietrich [facility] Clinics Atorvastati Atorvastati Yes Sylvain [address] [facility] n Calcium n Calcium Dietrich Luke s - Memoria l [facility] Clinics Advair Advair Yes Sylvain [address] Diskus Diskus Dietrich [facility] Clinics True Metrix True Metrix Yes Sylvain USE TO [facility] Blood Blood Dietrich TEST BLOOD Lukes - Glucose Glucose SUGAR 1-2 Joe cristina Test Test TIMES l EVERY DAY [facility] Clinics Vital Signs Vital Name Observation Time Observation Value Comments Source Body height 2019-03-27 17:51:00 182.9 cm [facility] Body weight 2019-03-27 14:22:00 99.791 kg [facility] BMI 2019-03-27 14:22:00 29.84 kg/m2 [facility] Systolic blood 2019-03-27 13:16:00 180 mm[Hg] [facility]ica [facility] pressure Diastolic blood 2019-03-27 13:16:00 94 mm[Hg] [facility]ica [facility] pressure Heart rate 2019-03-27 13:16:00 74 /min [facility] Respiratory rate 2019-03-27 13:16:00 17 /min [facility] Oxygen saturation in 2019-03-27 13:16:00 100 /min [facility] Arterial blood by Pulse oximetry Body temperature 2019-03-27 11:00:00 36.56 Cece [facility] Procedures Procedure Date / Time Performed Performing Clinician Sourc e PTT 2019-03-27 22:34:[address] [facility] GLUCOSE POC 2019-03-27 21:50:00 Lyssa Lozano SED RATE 2019-03-27 18:29:00 Lyssa Lozano C-REACTIVE PROTEIN HIGH 2019-03-27 18:29:00 Lyssa Lozano [facility] SENSITIVITY (CRP-HS) DUPLEX DOPPLER LOWER 2019-03-27 17:02:[address] [facility] EXTREMITY VENOUS, UNILATERAL OR LIMITED XRAY FOOT 3 VIEWS MIN 2019-03-27 16:15:07 Lyssa Lozano [facility] XRAY CHEST 2 VIEWS 2019-03-27 16:15:07 Lyssa Lozano ealth 12 LEAD EKG 2019-03-27 15:54:22 Lyssa Lozano [facility] PT/INR/PTT 2019-03-27 15:52:00 Lyssa Lozano [facility] CBC/DIFF 2019-03-27 15:51:00 Lyssa Lozano [facility] B-TYPE NATRIURETIC PEPTIDE 2019-03-27 15:51:[address] [facility] (BNP) COMPREHENSIVE METABOLIC 2019-03-27 15:51:00 Lyssa Lozano [facility] PANEL CBC 2019-03-27 15:51:00 Lyssa Lozano [facility] Plan of Care Planned Activity Planned Date Details Comments Source Future Scheduled Test 2020-03-09 00:00:00 IMM Influenza Seasonal [facility] Mar to August (>/= 19 yrs) [code = IMM Influenza Seasonal Mar to August (>/= 19 yrs)] Future Scheduled Test 2011 00:00:00 Colorectal Cancer [facility] Annual (FIT/FOBT) Age 50 to 75 [code = Colorectal Cancer [facility] Annual (FIT/FOBT) Age 50 to 75] Encounters Start End Encounter Admission Attending Care Care Encounter Source Date/Time Date/Time Type Type Clinicians Facility Department ID 2019-11-24 2019-11-24 [facility] [id number] [facility] [address] 11:15:00 11:15:00 [employer] [facility] Family Medicine l Medicine Outpati ent Clinics 2019-11-11 2019-11-11 [facility] [id number] [address] 09[facility]41[facility]00 [facility]41[facility]pati ent Clinics 2019-11-10 2019-11-10 [facility] [id number] 10:30:00 10:30:00 [employer] [facility] Medicine l Medicine Outpati ent Clinics 2019-03-27 2019-03-27 [facility] [id number] [place] 11:00:00 11:00:00 Health 2019-03-27 2019-03-27 [facility] [id number] [place] 10:55:25 10:55:25 Health 2019-03-27 2019-03-27 Emergency [facility] [id number] [place] 08:02:06 08:02:06 Health 2019-03-27 2019-03-27 [facility] [id number] [place] 00:00:00 00:00:00 Health Results Test Description Test Time Test Comments Results Result Comments Source PTT - every 6 hours x 24 hours 2019-03-27 18:07:00 Test Item Value Reference Range Interpretation Comme nts PTT (test code = 09160210) 26.6 23.6- 36.4 Seconds The recommended therapuetic ran ge is an APTT 61-103 sec onds which corresponds to 0.3-0.7 anti Xa u/ml. Lab Interpretation (test code Normal = 39063-2) [facility] GLUCOSE POC docked [id number] 16:51:00 Test Item Value Reference Range Interpretation Comments Glucose POC (test code = 20918279) 98 mg/dL 74-106 Lab Interpretation (test code = Normal 52159-3) [facility]-27 14:41:00 Test Item Value Reference Range Interpretation Comments CRP, High Sensitivity (test code = 1.0 mg/L <1.0 H 71851686) Lab Interpretation (test code = Abnormal 02985-4) [facility] [id number] 14:26:00 Test Item Value Reference Range Interpretation Comments Sed Rate (test code = 46684658) 18 0-<20 mm/Hr Lab Interpretation (test code = Normal 63899-5) [facility]-Type Natriuretic Peptide]2019-03-27 13:12:00 Test Item Value Reference Range Interpretation Comments B Natriuretic Peptide (BNP) (test 93 pg/mL <=100 code = 25507286) Lab Interpretation (test code = Normal 05841-8) [place] [id number] LEAD [id number] 12:48:5612 LEAD EKG FOR [facility] Test Date: [id number] Name: MARCOS RAMOS Department: [id number] ID: [id number] Room: Gender: M Field Service Coordinator: [id number]: 1960 Requested By: LYSSA LOZANO [facility] Number: [id number] Jr MD: Audi Betancur M.D. MeasurementsIntervals [place] Rate: 74 P: 37PR: 164 QRS: -28QRSD: 111 T: 11QT: 397 QTc: 442 Interpretive StatementsSINUS RH YTHMBORDERLINE LEFT AXIS DEVIATION [QRS AXIS < -20]MODERATE INTRAVENTRICULAR CONDUCTION DELAY [110+ ms QRS DURATION]MINIMAL VOLTAGE CRITERIA FOR LVH, CONSIDER NORMAL VARIANT [MEETS CRITERIA INONE OF: R(aVL), S(V1), R(V5), R(V5/V6)+S(V1)]Electronically Signed On 03-27-2019 12:48:54 CDT by Audi simmons M.D.[facility] DOPPLER LOWER EXTREMITY VENOUS, UNILATERAL OR [id number] 12:24:51IMPRESSION: Occlusive deep venous thrombosis involving the left lower extremity fromthe mid femoral vein extending into the popliteal vein. Findings discussed with Dr. Lozano by Dr. Dietrich at 12:18pm on 03/27/19. Dictated By: Ramone Dietrich MD, 03/27/2019 12:19 PM I have reviewed the study and agree with the findings in this report. Signed By: Gary Sierra MD, 03/27/2019 12:24 PM Interface, Rad/Mammog In - 03/27/2019 1:12 PM CDTEXAM: Unilateral Lower Extremity Venous Duplex UltrasoundINDICATION: leg pain COMPARISON: None TECHNIQUE: Stevens scale, color Doppler and spectral waveform analysis ofthe left lower extremity deep venous system was performed. FINDINGS: Common Femoral: Fully compressible with normal spontaneous waveforms. Proximal Greater Saphenous: Fully compressible. Femoral: Noncompressible with absent waveforms, consistent with occlusivethrombus starting in the mid fe moral vein and extending inferiorly intothe popliteal vein. Proximal Deep Femoral: Normal spontaneous waveforms. Popliteal: Noncompressible with absent waveforms, consistent with occlusivethrombus.IMPRESSIONIMPRESSION: Occlusive deep venous thrombosis involving the left lower extremity fromthe mid femoral vein extending into the popliteal vein.Findings discussed with Dr. Lozano by Dr. Dietrich at 12:18pm on 03/27/19. Dictated By: Ramone Dietrich MD, 03/27/2019 12:19 PMI have reviewed the study and agree with the findings in this report.Signed By: Gary Sierra MD, 03/27/2019 12:[address] [facility] Comprehensive Metabolic [id number] 12:17:00 Test Item Value Reference Range Interpretation Comments Sodium (test code = 2951-2) 140 mmol/L 136-145 Potassium (test code = 2823-3) 4.1 mmol/L 3.5-5.1 Chloride (test code = 2075-0) 104 mmol/L 98-107 CO2 (test code = 62992298) 28 mmol/L 21-31 Glucose (test code = 15239124) 146 mg/dL 70-110 H Calcium (test code = 48747872) 9.1 mg/dL 8.6-10.3 Urea Nitrogen (test code = 25.0 mg/dL 7-25 94538756) Creatinine (test code = 1.0 mg/dL 0.7-1.3 08895662) Alkaline Phosphatase (test 89 U/L 34-104 code = 54441194) ALT (test code = 59230601) 30 U/L 7-52 AST (test code = 34382602) 21 U/L 13-39 Total Protein (test code = 7.3 g/dL 6-8.3 2885-2) GFR, Estimated (test code = 77 >=90 mL/min/1.73 m2 L 69698392) Albumin (test code = 85004-9) 4.0 g/dL 4.2-5.5 L Anion Gap (test code = 8 mmol/L 5-16 56430726) Lab Interpretation (test code Abnormal = 41398-7) [facility] CHEST 2 [id number] 12:02:29IMPRESSION: Mild central pulmonary vascular congestion. No consolidative pneumoniaor edema. If the report is "FINALIZED" it indicates that the attending/staffradiologist has reviewed the images and agrees with the resident'sinterpretation. Dictated By: Raymond Aguero MD, 03/27/2019 11:26 AM I have reviewed the study and agree with the findings in this report. Signed By: Gary Sierra MD, 03/27/2019 12:02 PM Interface, Rad/Mammog In - 03/27/2019 12:07 PM CDTEXAMINATION: XRAY CHEST 2 VIEWS INDICATION: shortness of breath, lower extremity edema COMPARISON: None FINDINGS: PA and lateral viewsTUBES, LINES, AND DEVICES: None.LUNGS AND PLEURA: Mildly prominent central pulmonary vasculature. Nofocal consolidations or edema. No pleural effusion or pneumothorax.HEART AND MEDIASTINUM: The cardiomediastinal silhouette isunremarkable. BONES AND SOFT TISSUES: No acute osseous lesion. Soft tissuesareunremarkable.UPPER ABDOMEN: No free air under the diaphragm. IMPRESSIONIMPRESSION: Mild central pulmonary vascular congestion. No consolidative pneumoniaor edema.If the report is "FINALIZED" it indicates that the attending/staffradiologist has reviewed the images and agrees with the resident'sinterpretation.Dictated By: Raymond Aguero MD, 03/27/2019 11:26 AMI have reviewed the study and agree with the findings in this report.Signed By: Gary Sierra MD, 03/27/2019 12:[address] [facility] CenterXRAY FOOT 3 VIEWS [id number] 11:51:43IMPRESSION: Radiographic findings compatible with osteomyelitis of the fifth digit.An MRI of the forefoot WITH and WITHOUT contrast would provideadditional information regarding the extent of the osteomyelitis. If the report is "FINALIZED" it indicates that the attending/staffradiologist has reviewed the images and agrees with the resident'sinterpretation. Dictated By: Raymond Aguero MD, 03/27/2019 11:33 AM I have reviewed the study and agree with the findings in this report. Signed By: Gary Sierra MD, 03/27/2019 11:[address] 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 If the report is "FINALIZED" it indicates thatthe attending/staffradiologist has reviewed the images and agrees with the resident'sinterpretation.Dictated By: Raymond Aguero MD, 03/27/2019 11:33 AMI have reviewed the study and agree with the findings in this report.Signed By: Gary Sierra MD, 03/27/2019 11:51 [id number] 11:27:00 Test Item Value Reference Range Interpretation Comments PT (test code = 5902-2) 12.3 11.8- 15.0 Seconds INR (test code = 0.9 Refer to INR 2.0 - 3.0 for moderate 87270138) ranges intensity anticoagulation 2.5 - 3.5 for high in tensity anticoagulation PTT (test code = 25.9 23.6- 36.4 The recomm ended 95138677) Seconds therapuetic ran ge is an APTT 61-103 sec onds which correspon ds to 0.3-0.7 anti Xa u/ml. Lab Interpretation Normal (test code = 88013-1) [facility][id number] 11:15:00 Test Item Value Reference Range Interpretation Comments WBC (test code = 6690-2) 4.6 K/uL 4.5-12 RBC (test code = 789-8) 4.09 4.60- 6.20 M/uL L Hemoglobin (test code = 718-7) 11.7 g/dL 14-18 L Hematocrit (test code = 4544-3) 36.0 % 40-54 L MCV (test code = 787-2) 88.0 fL 82-92 MCH (test code = 785-6) 28.6 pg 27-31 MCHC (test code = 786-4) 32.5 g/dL 32-36 RDW (test code = 71882-0) 50.3 fL 35.1-43.9 H Platelet (test code = 777-3) 216 K/uL 150-400 Mean Platelet Volume (test code = 10.2 fL 9.4-12.4 04219-0) Percent NRBC (test code = 31419795) 0.0 % Neutrophil (test code = 770-8) 53.9 % 34-67.9 Lymphs (test code = 736-9) 32.8 % 21.8-50 Monocytes (test code = 5905-5) 11.0 % 5.3-12 Eos (test code = 713-8) 1.5 % 0.8-5 Basos (test code = 706-2) 0.2 % 0.2-1.2 Immature Granulocytes (test code = 0.6 % 0-0.5 H 32170354) Neutrophils (Absolute) (test code = 2.50 K/uL 1.78-5.36 56894225) Lymphs (Absolute) (test code = 1.52 K/uL 1.32-3.57 12853984) Monocytes(Absolute) (test code = 0.51 K/uL 0.3-0.82 00247859) Eos (Absolute) (test code = 0.07 K/uL 0.04-0.54 98835217) Baso (Absolute) (test code = 0.01 K/uL 0.01-0.08 42200809) Immature Grans (Abs) (test code = 0.03 K/uL 0-0.03 21014255) Absolute NRBC (test code = 0.00 K/uL 68035050) Lab Interpretation (test code = Abnormal 30846-3) [facility]
--- OUTSIDE RECORDS SUMMARY | 2019-12-01 15:59 | XMS REPORT ---
:1960 Author Organization [employer] Care Team Providers Name Role Phone DietrichSylvain Provider Role Unavailable Allergies No Known Allergies Problems Problem Type Condition Code Onset Dates Condition Statu s Problem FDC (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 Z79.4 Active Problem Tobacco use disorder F17.200 Active Problem Type 2 diabetes mellitus with E11.65 Active hyperglycemia Problem History of pulmonary embolism Z86.711 Active Problem Generalized anxiety disorder F41.1 Active Problem Essential hypertension I10 Activ e Problem Mixed hyperlipidemia E78.2 Active Problem Panic disorder [episodic paroxysmal F41.0 Active anxiety] Problem Seizures R56.9 Active Problem Chronic pain syndrome G89.4 Active Problem Bipolar affective disorder, F31.32 Active currently depressed, moderate Problem Chronic obstructive pulmonary J44.9 Active disease, unspecified COPD type Problem Continuous opioid dependence F11.20 Active Problem History of CVA with residual I69.30 Active deficit Problem Current moderate episode of major F32.1 Active depressive disorder without prior episode Problem Attention deficit hyperactivity F90.2 Active disorder (ADHD), combined type Medications No Known Medications Results No Known Results Summary Purpose eClinicalWorks Submission
--- OUTSIDE RECORDS SUMMARY | 2019-12-01 15:59 | XMS REPORT | Clinical Summary ---
:1960 Author Organization [facility] Address [address] [place] [address] Care Team Providers Name Role Phone Unavailable Primary Care Provider Unavailable Allergies No Known Allergies Medications Not on file Active Problems Problem Noted Date Acute deep vein thrombosis (DVT) of proximal vein of l eft lower extremity Osteomyelitis of left foot Encounters Date Type Specialty Care Team Description 03/27/2019 - Emergency Emergency Medicine Lyssa Amador Acut e deep vein thrombosis (DVT) of proximal vein of left lower extremity (Primary Dx); 03/28/2019 Open wound of left foot, initial encount er; Meg Toscano, Shortness of breath; Osteomyelitis o f left foot, unspecified type; Poorly-controll ed hypertension after 11/30/2018 Social History Tobacco Use Types Packs/Day Years Used Date Former Smoker Smokeless Tobacco: Never Used Alcohol Use Drinks/Week oz/Week Comments Not Currently Sex Assigned at Date Recorded Not on file Job Start Date Occupation Industry Not on file Not on file Not on file Travel History Travel Start Travel End No recent travel history available. Last Filed Vital Signs Vital Sign Reading Time Taken Comments Blood Pressure 180/94 03/27/2019 1:16 PM yesica awar e CDT Pulse 74 03/27/2019 1:16 PM CDT Temperature 36.6 C (97.8 F) 03/27/2019 11:00 AM CDT Respiratory Rate 17 03/27/2019 1:16 PM CDT Oxygen Saturation 100% 03/27/2019 1:16 PM CDT Inhaled Oxygen Concentration - - Weight 99.8 kg (220 lb) 03/27/2019 2:22 PM CDT Height 182.9 cm (6') 03/27/2019 5:51 PM CDT Body Mass Index 29.84 03/27/2019 2:22 PM CDT Plan of Treatment Health Maintenance Due Date Last Done Comments Colorectal Cancer Scrn Annual (FIT/FOBT) Age 50 to 75 2011 IMM Influenza Seasonal Mar to August (>/= 19 yrs) 03/09/2020 Procedures Procedure Name Priority Date/Time Associated Comments Diagnosis PTT STAT 03/27/2019 5:34 Results for this PM CDT procedure are i n the results section. GLUCOSE POC Routine 03/27/2019 4:50 Results for this PM CDT procedure are i n the results section. C-REACTIVE PROTEIN STAT 03/27/2019 1:29 Resul ts for this HIGH SENSITIVITY PM CDT procedure a re in (CRP-HS) the results section. SED RATE STAT 03/27/2019 1:29 Results for this PM CDT procedure are i n the results section. DUPLEX DOPPLER LOWER STAT 03/27/2019 12:02 Res ults for this EXTREMITY VENOUS, PM CDT procedure are in UNILATERAL OR LIMITED the re sults section. XRAY CHEST 2 VIEWS STAT 03/27/2019 11:15 Shortness of breat h Results for this AM CDT procedure are i n the results section. XRAY FOOT 3 VIEWS MIN STAT 03/27/2019 11:15 Open wound of l eft Results for this AM CDT foot, initial procedure are in encounter the results section. 12 LEAD EKG Routine 03/27/2019 10:54 Results for this AM CDT procedure are i n the results section. PT/INR/PTT STAT 03/27/2019 10:52 Results for this AM CDT procedure are i n the results section. CBC STAT 03/27/2019 10:51 Results for this AM CDT procedure are i n the results section. COMPREHENSIVE STAT 03/27/2019 10:51 Results fo r this METABOLIC PANEL AM CDT procedure ar e in the results section. B-TYPE NATRIURETIC STAT 03/27/2019 10:51 Resul ts for this PEPTIDE (BNP) AM CDT procedure are in the results section. CBC/DIFF STAT 03/27/2019 10:51 Results for this AM CDT procedure are i n the results section. after 11/30/2018 Results PTT - every 6 hours x 24 hours (03/27/2019 5:34 PM CDT) PTT 26.6 23.6 - 36.4 [facility] Comment: Seconds The recommended therapuetic range is an APTT 61-103 seconds which corresponds to 0.3-0.7 anti Xa u/ml. Specimen Blood Performing Organization Address [facility] Phone Number [facility] [address] [place] [address] POCT GLUCOSE POC docked device (03/27/2019 4:50 PM CDT) Pathologist Sig nature Glucose POC 98 74 - 106 mg/dL [facility] Specimen Blood Performing Organization Address [facility] Phone Number [facility] [address] [place] [address] [phone] CRP (High Sensitivity) (03/27/2019 1:29 PM CDT) Pathologist Sig nature CRP, High Sensitivity 1.0 (H) <1.0 mg/L [facility] Specimen Blood Performing Organization Address [facility] Phone Number [facility] [address] [place] [address] [phone] SED Rate (03/27/2019 1:29 PM CDT) Pathologist Sig nature Sed Rate 18 0-<20 mm/Hr [facility] Specimen Blood Performing Organization Address [facility] Phone Number [facility] [address] [place] [address] DUPLEX DOPPLER LOWER EXTREMITY VENOUS, UNILATERAL OR LIMITED (03/27/2019 12:02 PM CDT) Specimen Impressions Performed At IMPRESSION: SMS Occlusive deep venous thrombosis involvi ng the left lower extremity from the mid femoral vein extending into the popliteal vein. Findings discussed with Dr. Amador by Dr Sebas Dietrich at 12:18pm on 03/27/19. Dictated By: Ramone Dietrich MD, 03/27/2019 12:19 PM I have reviewed the study and agree with the findings in this report. Signed By: Gary Sierra MD, 03/27/2019 12:24 PM Narrative Performed At EXAM: Unilateral Lower Extremity Venous Duplex Ultrasound SMS INDICATION: leg pain COMPARISON: None TECHNIQUE: Stevens scale, color Doppler and spectral waveform analysis of the left lower extremity deep venous sys tem was performed. FINDINGS: Common Femoral: Fully compressible with normal sp ontaneous waveforms. Proximal Greater Saphenous: Fully compressible. Femoral: Noncompressible with absent waveforms, c onsistent with occlusive thrombus starting in the mid femoral vei n and extending inferiorly into the popliteal vein. Proximal Deep Femoral: Normal spontaneous waveforms. Popliteal: Noncompressible with absent waveforms, c onsistent with occlusive thrombus. Procedure Note Interface, Rad/Mammog In - 03/27/2019 1 :12 PM CDT EXAM: Unilateral Lower Extremity Venous Duplex Ultrasound INDICATION: leg pain COMPARISON: None TECHNIQUE: Stevens scale, color Doppler and spectral waveform analysis of the left lower extremity deep venous sys tem was performed. FINDINGS: Common Femoral: Fully compressible with normal spon taneous waveforms. Proximal Greater Saphenous: Fully compressible. Femoral: Noncompressible with absent waveforms, c onsistent with occlusive thrombus starting in the mid femoral vei n and extending inferiorly into the popliteal vein. Proximal Deep Femoral: Normal spontaneous waveforms. Popliteal: Noncompressible with absent waveforms, c onsistent with occlusive thrombus. IMPRESSION IMPRESSION: Occlusive deep venous thrombosis involvi ng the left lower extremity from the mid femoral vein extending into the popliteal vein. Findings discussed with Dr. Amador by Dr Sebas Dietrich at 12:18pm on 03/27/19. Dictated By: Ramone Dietrich MD, 03/27/2019 12:19 PM I have reviewed the study and agree with the findings in this report. Signed By: Gary Sierra MD, 03/27/2019 12:24 PM Performing Organization Address City/State/Zipcode Phone Number [facility] XRAY CHEST 2 VIEWS (03/27/2019 11:15 AM CDT) Specimen Impressions Performed At IMPRESSION: SMS Mild central pulmonary vascular congesti on. No consolidative pneumonia or edema. If the report is "FINALIZED" it indicate s that the attending/staff radiologist has reviewed the images and agrees with the resident's interpretation. Dictated By: Raymond Aguero MD, 03/27/2019 11:26 AM I have reviewed the study and agree with the findings in this report. Signed By: Gary Sierra MD, 03/27/2019 12:02 PM Narrative Performed At EXAMINATION: XRAY CHEST [address] [facility] INDICATION: shortness of breath, lower e xtremity edema COMPARISON: None FINDINGS: PA and lateral views TUBES, LINES, AND DEVICES: None. LUNGS AND PLEURA: Mildly prominent centr al pulmonary vasculature. No focal consolidations or edema. No pleura l effusion or pneumothorax. HEART AND MEDIASTINUM: The cardiomedia stinal silhouette is unremarkable. BONES AND SOFT TISSUES: No acute osseo us lesion. Soft tissues are unremarkable. UPPER ABDOMEN: No free air under the melvin phragm. Procedure Note Interface, Rad/Mammog In - 03/27/2019 12 :07 PM CDT EXAMINATION: XRAY CHEST 2 VIEWS INDICATION: shortness of breath, lower e xtremity edema COMPARISON: None FINDINGS: PA and lateral views TUBES, LINES, AND DEVICES: None. LUNGS AND PLEURA: Mildly prominent centr al pulmonary vasculature. No focal consolidations or edema. No pleura l effusion or pneumothorax. HEART AND MEDIASTINUM: The cardiomedias tinal silhouette is unremarkable. BONES AND SOFT TISSUES: No acute osseou s lesion. Soft tissues are unremarkable. UPPER ABDOMEN: No free air under the melvin phragm. IMPRESSION IMPRESSION: Mild central pulmonary vascular congesti on. No consolidative pneumonia or edema. If the report is "FINALIZED" it indicate s that the attending/staff radiologist has reviewed the images and agrees with the resident's interpretation. Dictated By: Raymond Aguero MD, 03/27/2019 11:26 AM I have reviewed the study and agree with the findings in this report. Signed By: Gary Sierra MD, 03/27/2019 12:02 PM Performing Organization Address City/State/Zipcode Phone Number [facility] XRAY FOOT 3 VIEWS MIN (03/27/2019 11:15 AM CDT) Specimen Impressions Performed At IMPRESSION: SMS Radiographic findings compatible with os teomyelitis of the fifth digit. An MRI of the forefoot WITH and WITHOUT contrast would provide additional information regarding the ext ent of the osteomyelitis. If the report is "FINALIZED" it indicate s that the attending/staff radiologist has reviewed the images and agrees with the resident's interpretation. Dictated By: Raymond Aguero MD, 03/27/2019 11:33 AM I have reviewed the study and agree with the findings in this report. Signed By: Gary Sierra MD, 03/27/2019 11:51 AM Narrative Performed At EXAMINATION: XRAY FOOT [address] [facility] SIDE: Left INDICATION: L foot wound COMPARISON: None FINDINGS: BONES: No acute fracture. 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 Severe erosion of the fifth digit at the distal metatarsal and proximal portion of the proximal phalanx with per iosteal reaction and fluffy bony callus formation. JOINTS: No malalignment. SOFT TISSUES: Soft tissue swelling, most prominent at the lateral aspect. Vascular calcifications. Procedure Note Interface, Rad/Mammog In - 03/27/2019 11 :56 AM CDT EXAMINATION: XRAY FOOT 3 VIEWS MIN SIDE: Left INDICATION: L foot wound COMPARISON: None FINDINGS: BONES: No acute fracture. 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 Severe erosion of the fifth digit at the distal metatarsal and proximal portion of the proximal phalanx with per iosteal reaction and fluffy bony callus formation. JOINTS: No malalignment. SOFT TISSUES: Soft tissue swelling, most prominent at the lateral aspect. Vascular calcifications. IMPRESSION IMPRESSION: Radiographic findings compatible with os teomyelitis of the fifth digit. An MRI of the forefoot WITH and WITHOUT contrast would provide additional information regarding the ext ent of the osteomyelitis. If the report is "FINALIZED" it indicate s that the attending/staff radiologist has reviewed the images and agrees with the resident's interpretation. Dictated By: Raymond Aguero MD, 03/27/2019 11:33 AM I have reviewed the study and agree with the findings in this report. Signed By: Gary Sierra MD, 03/27/2019 11:51 AM Performing Organization Address City/State/Zipcode Phone Number [facility] 12 LEAD EKG (03/27/2019 10:54 AM CDT) 12 LEAD EKG FOR [facility] Test Date: 2019-03-27 Pat Name: MARCOS FRY Depart ent: [id number] Room: Gender: M Clinical Phlebotomist: [id number] : 1960 9 Requested By: LYSSA Mireles Order Number: [id number] Reading MD: Audi Betancur M.D. Measu rements Intervals [place] Rate: 74 P: 37 MO: 164 QRS: -28 QRSD: 111 T: 11 QT: 397 QTc: 442 Interpretive S tatements SINUS RHYTHM BORDERLINE LEFT AXIS DEVIATION [QRS AXIS < -20] MODERATE INTRAVENTRICULAR CONDUCTION DELAY [110+ ms QR S DURATION] MINIMAL VOLTAGE CRITERIA FOR LVH, CONSIDER NORMAL VARI ANT [MEETS CRITERIA IN ONE OF: R(aVL), S(V1), R(V5), R(V5/V6)+S(V1)] Electronically Signed On 03-27-2019 12:48:54 CDT by Daniela Betancur M.D. Specimen Performing Organization Address City/[facility]/Zipcode Phone Number SMS PT/INR/PTT (03/27/2019 10:52 AM CDT) PT 12.3 11.8 - 15.0 [facility] INR 0.9 Refer to INR [facility] Comment: ranges LABORATORY 2.0 - 3.0 for moderate intensity anticoagulation 2.5 - 3.5 for high intensity anticoagulation PTT 25.9 23.6 - 36.4 [facility] Comment: Seconds LABORATORY The recommended therapuetic range is an APTT 61-103 seconds which corresponds to 0.3-0.7 anti Xa u/ml. Specimen Blood Performing Organization Address [facility] Phone Number [facility] [address] [place] [address] CBC/Diff (03/27/2019 10:51 AM CDT) WBC 4.6 4.5 - 12.0 K/uL [facility] RBC 4.09 (L) 4.60 - 6.20 [facility] M/uL Hemoglobin 11.7 (L) 14.0 - 18.0 [facility] g/dL Hematocrit 36.0 (L) 40.0 - 54.0 % [facility] MCV 88.0 82.0 - 92.0 fL [facility] MCH 28.6 27.0 - 31.0 pg [facility] MCHC 32.5 32.0 - 36.0 [facility] g/dL RDW 50.3 (H) 35.1 - 43.9 fL [facility] Platelet 216 150 - 400 K/uL [facility] Mean Platelet Volume 10.2 9.4 - 12.4 fL [facility] Percent NRBC 0.0 % [facility] Neutrophil 53.9 34.0 - 67.9 % [facility] Lymphs 32.8 21.8 - 50.0 % [facility] Monocytes 11.0 5.3 - 12.0 % [facility] Eos 1.5 0.8 - 5.0 % [facility] Basos 0.2 0.2 - 1.2 % [facility] Immature Granulocytes 0.6 (H) 0.0 - 0.5 % [facility] Neutrophils (Absolute) 2.50 1.78 - 5.36 [facility] Y K/uL Lymphs (Absolute) 1.52 1.32 - 3.57 [facility] K/uL Monocytes(Absolute) 0.51 0.30 - 0.82 [facility] K/uL Eos (Absolute) 0.07 0.04 - 0.54 [facility] K/uL Baso (Absolute) 0.01 0.01 - 0.08 [facility] K/uL Immature Grans (Abs) 0.03 0.00 - 0.03 [facility] K/uL Absolute NRBC 0.00 K/uL [facility] Specimen Blood Performing Organization Address [facility] Phone Number [facility] [address] [place] [address] Comprehensive Metabolic Panel (03/27/2019 10:51 AM CDT) [facility] Sodium 140 136 - 145 [facility] mmol/L Potassium 4.1 3.5 - 5.1 [facility] mmol/L Chloride 104 98 - 107 mmol/L [facility] CO2 28 21 - 31 mmol/L [facility] Glucose 146 (H) 70 - 110 mg/dL [facility] Calcium 9.1 8.6 - 10.3 [facility] mg/dL Urea Nitrogen 25.0 7.0 - 25.0 [facility] mg/dL Creatinine 1.0 0.7 - 1.3 mg/dL [facility] Alkaline Phosphatase 89 34 - 104 U/L [facility] ALT 30 7 - 52 U/L [facility] AST 21 13 - 39 U/L [facility] Bilirubin, Total 0.3 0.2 - 1.2 mg/dL [facility] Total Protein 7.3 6.0 - 8.3 g/dL [facility] GFR, Estimated 77 (L) >=90 [facility] mL/min/1.73 m2 Albumin 4.0 (L) 4.2 - 5.5 g/dL [facility] Anion Gap 8 5 - 16 mmol/L [facility] Specimen Blood Performing Organization Address [facility] Phone Number [facility] [address] [place] [address] BNP [B-Type Natriuretic Peptide] (03/27/2019 10:51 AM CDT) Pathologist Sig nature B Natriuretic Peptide 93 <=100 pg/mL [facility] (BNP) Specimen Blood Performing Organization Address City/State/Zipcode Phone Number [facility] [address] [place] [address] after 11/30/2018 Insurance Payer Benefit Plan / Subscriber ID Effective Dates Phone Addre ss Type Group MEDICARE MEDICARE PART xxxxxxxxxxx 2004-Janis [id number] [place] [address] [place] MED[place] [id number] MQMB SSI xxxxxxxxx 2013-Nadira [phone] [phone] [place] [address]
--- OUTSIDE RECORDS SUMMARY | 2019-12-01 15:59 | XMS REPORT ---
:1960 Author Organization [employer] Care Team Providers Name Role Phone DietrichSylvain Provider Role Unavailable Allergies, Adverse Reactions, Alerts Substance Reaction Event Type N.K.D.A. 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 Active deficit Assessment snf (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 Z79.4 Active Assessment Chronic pain syndrome G89.4 Active Assessment History of pulmonary embolism Z86.711 Active Assessment Bipolar affective disorder, F31.32 Active currently depressed, moderate Assessment Seizures R56.9 Active Assessment Generalized anxiety disorder F41.1 Active Assessment Tobacco use disorder F17.200 Active Problem History of CVA with residual I69.30 Active deficit Assessment Continuous opioid dependence F11.20 Active Problem Attention deficit hyperactivity F90.2 Active disorder (ADHD), combined type Assessment Chronic obstructive pulmonary J44.9 Active disease, unspecified COPD type Problem manager terminal (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 Z79.4 Active Problem Tobacco use disorder F17.200 Active Problem Type 2 diabetes mellitus with E11.65 Active hyperglycemia Problem History of pulmonary embolism Z86.711 Active Problem Generalized anxiety disorder F41.1 Active Assessment Mixed hyperlipidemia E78.2 Active Assessment Attention deficit hyperactivity F90.2 Active disorder (ADHD), combined type Problem Essential hypertension I10 Activ e Assessment Panic disorder [episodic paroxysmal F41.0 Active anxiety] Problem Mixed hyperlipidemia E78.2 Active Problem Panic disorder [episodic paroxysmal F41.0 Active anxiety] Problem Seizures R56.9 Active Problem Chronic pain syndrome G89.4 Active Assessment Essential hypertension I10 Activ e Assessment Type 2 diabetes mellitus with E11.65 Active hyperglycemia Assessment Current moderate episode of major F32.1 Active depressive disorder without prior episode Problem Bipolar affective disorder, F31.32 Active currently depressed, moderate Problem Chronic obstructive pulmonary J44.9 Active disease, unspecified COPD type Problem Continuous opioid dependence F11.20 Active Problem Current moderate episode of major F32.1 Active depressive disorder without prior episode Medications Medication Code Code Instructions Start End Status Dosage System Date Date Silvino [facility] [id number] 18 MG/3ML Active Inject 1.8 Subcutaneous mg/day Once a day Albuterol [facility] 03517017208 108 (90 Base) Active 1 pu ff as Sulfate HFA MCG/ACT needed Inhalation every 4 hrs Duloxetine HCl [facility] 70376605180 60 MG Orally Active 1 capsule Once a day Clonazepam [facility] 72966680709 0.5 MG Orally Active 1 t ablet Once a day at bedtime NovoLIN 70/30 [facility] 70868485177 (70-30) 100 Active In ject 65 FlexPen UNIT/ML units Subcutaneous BID Tramadol HCl [facility] 29162919495 50 MG Orally Active 1 tablet Once a day as needed Hydrocodone-Acet [facility] 29559623261 10-325 MG Active 1 tablet aminophen Orally every 6 as need ed hrs Eliquis [facility] 55041236201 5 MG Orally Active 1 tablet Once a day Benztropine [facility] 15153332075 0.5 MG Orally Active 1 tablet Mesylate Once a day at bedtime Amphetamine-Dext [facility] 32520715012 30 MG Orally Active 1 tablet roamphetamine Twice a day Risperidone [facility] 86657524763 4 MG Orally Active 1 ta blet Once a day Metoprolol [facility] 45383411526 50 MG Orally Active 1 ta blet Tartrate Twice a day with food Losartan [facility] 65802553223 50 MG Orally Active 1 tabl et Potassium Once a day Divalproex [facility] 83419936665 500 MG Orally Active 1 t ablet Sodium ER Once a day BusPIRone HCl [facility] 24673899662 10 MG Orally Active 1 tablet Twice a day Pen Ransom [facility] 37060309495 32G x 4 mm 06/14" Active N/s n/s once a day Atorvastatin [facility] 74636722638 40 MG Orally Active 1 tablet Calcium Once a day Advair Diskus [facility] 31522784275 250-50 MCG/DOSE Active 1 puff Inhalation Twice a day Results No Known Results Summary Purpose [employer] Submission
--- OUTSIDE RECORDS SUMMARY | 2019-12-01 16:00 | XMS REPORT ---
:1960 Author Organization [employer] Care Team Providers Name Role Phone Karlo Sylvain Provider Role Unavailable Allergies, Adverse Reactions, Alerts Substance Reaction Event Type N.K.D.A. Info Not Available Non Drug Allergy Problems Problem Type Condition Code Onset Dates Condition Statu s Assessment Type 2 diabetes mellitus with E11.22 Active diabetic chronic kidney disease Assessment Chronic pain syndrome G89.4 Active Assessment Bipolar affective disorder, F31.32 Active currently depressed, moderate Assessment Chronic kidney disease, stage 3 N18.3 Active (moderate) Assessment Seizures R56.9 Active Assessment Generalized anxiety disorder F41.1 Active Assessment Tobacco use disorder F17.200 Active Assessment Continuous opioid dependence F11.20 Active Assessment Chronic obstructive pulmonary J44.9 Active disease, unspecified COPD type Problem History of pulmonary embolism Z86.711 Active Assessment Panic disorder [episodic paroxysmal F41.0 Active anxiety] Problem Essential hypertension I10 Activ e Assessment Attention deficit hyperactivity F90.2 Active disorder (ADHD), combined type Problem Continuous opioid dependence F11.20 Active Problem Bipolar affective disorder, F31.32 Active currently depressed, moderate Problem Current moderate episode of major F32.1 Active depressive disorder without prior episode Problem Type 2 diabetes mellitus with E11.22 Active diabetic chronic kidney disease Problem Type 2 diabetes mellitus with E11.65 Active hyperglycemia Assessment Current moderate episode of major F32.1 Active depressive disorder without prior episode Assessment Type 2 diabetes mellitus with E11.65 Active hyperglycemia Problem Chronic kidney disease, stage 3 N18.3 Active (moderate) Assessment Mixed hyperlipidemia E78.2 Active Problem History of CVA with residual I69.30 Active deficit Problem Chronic obstructive pulmonary J44.9 Active disease, unspecified COPD type Problem [facility] (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 Z79.4 Active Problem Attention deficit hyperactivity F90.2 Active disorder (ADHD), combined type Assessment Hyperkalemia E87.5 Active Problem Tobacco use disorder F17.200 Active Assessment Proteinuria, unspecified type R80.9 Active Problem Panic disorder [episodic paroxysmal F41.0 Active anxiety] Assessment History of pulmonary embolism Z86.711 Active Assessment Essential hypertension I10 Activ e Assessment 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.4 Active Problem Seizures R56.9 Active Assessment History of CVA with residual I69.30 Active deficit Problem Generalized anxiety disorder F41.1 Active Problem Mixed hyperlipidemia E78.2 Active Problem Chronic pain syndrome G89.4 Active Medications Medication Code Code Instructions Start End Status Dosage System Date Date Hydrocodone-Acet [facility] [place] 40236127626 10-325 MG Active 1 tablet aminophen Orally every 6 as need ed hrs Clonazepam [facility] [place] 71121104890 0.5 MG Orally Active 1 t ablet Once a day at bedtime Duloxetine HCl [facility] [place] 89782578213 60 MG Orally Active 1 capsule Once a day [place] [facility] [place] 71037780185 32G x 4 mm 6" Active N/s n/s once a day True Metrix [facility] [place] 68292466322 - Active USE TO Blood Glucose TEST BLOOD Test SUGAR 1-2 TIMES EVERY DAY Albuterol [facility] [place] 06041320824 108 (90 Base) Active 1 pu ff as Sulfate HFA MCG/ACT needed Inhalation every 4 hrs Atorvastatin [facility] [place] 84481514031 40 MG Orally Active 1 tablet Calcium Once a day Benztropine [facility] [place] 69771747736 0.5 MG Orally Active 1 tablet Mesylate Once a day at bedtime Victoza [facility] [place] 87279585895 18 MG/3ML Active Inject 1.8 Subcutaneous mg/day Once a day NovoLIN 70/30 [facility] [place] 22000663029 (70-30) 100 Active In ject 65 FlexPen UNIT/ML units Subcutaneous BID BusPIRone HCl [facility] [place] 56985721424 10 MG Orally Active 1 tablet Twice a day Tramadol HCl [facility] [place] 29666036255 50 MG Orally Active 1 tablet Once a day as needed Advair Diskus [facility] [place] 52167852444 250-50 MCG/DOSE Active 1 puff Inhalation Twice a day Divalproex [facility] [place] 60317442583 500 MG Orally Active 1 t ablet Sodium ER Once a day Eliquis [facility] [place] 94060867947 5 MG Active TAKE 1 TABLET BY MOUTH TWICE DAILY Losartan [facility] [place] 05986898829 50 MG Orally Active 1 tabl et Potassium Once a day Amphetamine-Dext [facility] [place] 86074369711 30 MG Orally Active 1 tablet roamphetamine Twice a day Risperidone [facility] [place] 25714405816 4 MG Orally Active 1 ta blet Once a day Metoprolol [facility] [place] 63285143718 50 MG Orally Active 1 ta blet Tartrate Twice a day with food Results No Known Results Summary Purpose eClinicalWorks Submission
--- NOTE | 2019-12-01 16:04 | ER ---
Nurse's Notes [facility] Name: Gasper Fry Age: 59 yrs Sex: Male : 1960 Arrival Date: 12/01/2019 Time: 14:06 Bed 17 Private MD: Diagnosis: Acute kidney failure Presentation: 11/30 14:17 Chief complaint: Patient states: "My legs hurt really bad and I don't know why" EMS vc states: "His home health nurse came to take his vitals and said he was really groggy and difficult to arouse.". Coronavirus screen: Proceed with normal triage. Patient denies a cough. Patient denies shortness of breath or difficulty breathing. Patient denies measured and/or subjective temperature greater than 100.4F prior to today's visit. Patient denies travel on a cruise ship or to a country the [facility] currently lists as an affected area. Patient denies contact with known and/or suspected case of COVID-19. Ebola Screen: No symptoms or risks identified at this time. Initial Sepsis Screen: Does the patient meet any 2 criteria? No. Patient's initial sepsis screen is negative. Does the patient have a suspected source of infection? Yes: Skin breakdown/wound. Risk Assessment: Do you want to hurt yourself or someone else? Patient reports no desire to harm self or others. Onset of symptoms is unknown. 14:17 Method Of Arrival: EMS: [facility] vc 14:17 Acuity: DARREL 3 vc Triage Assessment: 14:24 General: Appears in no apparent distress. uncomfortable, Behavior is calm, cooperative, vc appropriate for age. Pain: Complains of pain in right leg and left leg Pain does not radiate. Pain currently is 9 out of 10 on a pain scale. Quality of pain is described as stabbing, squeezing, Pain began a week ago. Historical: - Allergies: 14:23 Haldol (Anaphylaxis); vc 14:23 Narcan (Anaphylaxis); vc - PMHx: 14:23 ADD/ADHD; Anxiety; Bipolar disorder; Cellulitis; Chronic pain; CVA; Diabetes - IDDM; vc Hypertension; neuropathy; Seizures; - PSHx: 14:23 stent on my left leg; right great toe amputation; vc - Immunization history:: Adult Immunizations up to date, Pneumococcal vaccine is up to date, Flu vaccine is up to date. - Social history:: Smoking status: Patient reports the use of cigarette tobacco products, denies chronic smoking, but will smoke occasionally, Patient/guardian denies using alcohol, street drugs. Screenin:24 Abuse screen: Denies threats or abuse. Nutritional screening: No deficits noted. vc Tuberculosis screening: No symptoms or risk factors identified. Fall Risk Secondary diagnosis (15 points) seizures, CVA, Ambulatory Aid- None/Bed Rest/Nurse Assist (0 pts). Gait- Weak (10 pts.). Mental Status- Oriented to own ability (0 pts). Total Martínez Fall Scale indicates Low Risk Score (25-44 pts). Fall prevention measures have been instituted. Side Rails Up X 2 Placed close to Nursing Station. Assessment: 14:15 General: Appears in no apparent distress. uncomfortable, ill, obese, unkempt, Behavior vc is cooperative, drowsy, flat. Pain: Complains of pain in left foot and left leg and right leg Pain does not radiate. Pain currently is 9 out of 10 on a pain scale. Quality of pain is described as sharp, squeezing, Pain began a week ago Is continuous, Noted to be grimacing, moaning, Also complains of sleeplessness. Neuro: Level of Consciousness is obeys commands, lethargic, Oriented to person, place, time, situation, Appropriate for age. Cardiovascular: Capillary refill < 3 seconds Patient's skin is warm and dry. Respiratory: Airway is patent Respiratory effort is even, unlabored, Respiratory pattern is regular, symmetrical, Denies cough, shortness of breath. GI: No signs and/or symptoms were reported involving the gastrointestinal system. : Reports not voiding very often. EENT: No deficits noted. Derm: Skin is black, Wound noted left second toe. Musculoskeletal: Amputation of left first toe. Swelling present in left leg and right leg. 15:15 Reassessment: Patient appears in no apparent distress at this time. Patient and/or vc family updated on plan of care and expected duration. Pain level reassessed. 16:15 Reassessment: Patient appears in no apparent distress at this time. Patient and/or vc family updated on plan of care and expected duration. Pain level reassessed. Patient states symptoms have not improved. 16:50 Reassessment: Patient appears in no apparent distress at this time. Patient and/or vc family updated on plan of care and expected duration. Pain level reassessed. Patient bladder scanned, shows 440mls Patient states symptoms have not improved. 17:45 Reassessment: Pt to radiology for CT scan. Vital Signs: 14:17 BP 126 / 86; Pulse 77; Resp 17; Temp 97.4; Pulse Ox 100% on R/A; Weight 95.25 kg; vc Height 5 ft. 10 in. (177.80 cm); Pain 9/10; 15:00 BP 125 / 76; Pulse 75; Resp 18; Pulse Ox 99% on R/A; vc 16:00 BP 146 / 87; Pulse 78; Resp 18; Pulse Ox 98% on R/A; vc 17:00 BP 154 / 88; Pulse 73; Resp 19; Temp 97.7; Pulse Ox 98% on R/A; vc 14:17 Body Mass Index 30.13 (95.25 kg, 177.80 cm) vc ED Course: 14:06 Patient arrived in ED. ss 14:17 Gabbi Vigil, MALU is Primary Nurse. vc 14:21 Triage completed. vc 14:24 Mik Ledbetter PA is PHCP. jr8 14:24 Tayo Rivas MD is Attending Physician. jr8 14:25 Arm band placed on. vc 14:25 Patient has correct armband on for positive identification. Bed in low position. Call vc light in reach. Side rails up X 1. Pulse ox on. NIBP on. 14:55 Initial lab(s) drawn, by il, sent to lab. X-ray(s) taken. Inserted saline lock: 20 jp3 gauge in left antecubital area, using aseptic technique. Blood collected. Patient maintains SpO2 saturation greater than 95% on room air. 15:07 XRAY Foot LEFT 3 View In Process Unspecified. EDMS 15:11 CT Head Brain wo Cont In Process Unspecified. EDMS 16:03 Jay Sapp MD is Hospitalizing Provider. jr8 16:51 Primary Nurse role handed off by Gabbi Vigil, MALU vc 16:52 Gabbi Vigil RN is Primary Nurse. vc 16:53 Bladder scan completed. 440 ml present. jp3 17:02 No provider procedures requiring assistance completed. Patient admitted, IV remains in vc place. Administered Medications: 16:09 Drug: NS 0.9% 1000 ml Route: IV; Rate: 1000 ml; Site: left antecubital; vc 17:06 Follow up: IV Status: Completed infusion; IV Intake: 1000ml vc 16:09 Drug: Gabapentin 300 mg Route: PO; vc 17:06 Follow up: Response: No adverse reaction vc Intake: 17:06 IV: 1000ml; Total: 1000ml. vc Outcome: 16:03 Decision to Hospitalize by Provider. jrRick 16:50 Patient left the ED. vc 17:02 Condition: good vc 17:02 Instructed on the need for admit. 17:47 Admitted to Tele accompanied by nurse, via wheelchair, room 208, with chart, Report ah called to Receiving nurse 17:58 Patient left the ED. ll1 Signatures: Dispatcher [employer] Maggi Street, RN RN Mik Ledbetter PA PA jr8 Manuelito Sam jp3 Gabbi Vigil RN RN Margot Rios RN RN Keira Roy RN RN ll1
--- NOTE | 2019-12-01 16:04 | EDPHYS ---
Physician Documentation [facility] Name: Gasper Fry Age: 59 yrs Sex: Male : 1960 Arrival Date: 12/01/2019 Time: 14:06 Bed 17 Private MD: ED Physician Tayo Rivas HPI: 11/30 15:07 This 59 yrs old Male presents to ER via EMS with complaints of Leg Pain. jr8 15:07 Onset: The symptoms/episode began/occurred acutely, today. Modifying factors: The jr8 symptoms are alleviated by nothing. the symptoms are aggravated by movement. Associated signs and symptoms: The patient has no apparent associated signs or symptoms. Severity of symptoms: At their worst the symptoms were moderate, in the emergency department the symptoms are unchanged. The patient has experienced similar episodes in the past, several times. It is unknown whether or not the patient has recently seen a physician. Home health called 911 after evaluating patient this afternoon. Stated that he was more sleepy then normal. Also was found to have diabetic foot wound that was not there about a week ago. Patient alert and oriented to person, place, time, event. Is sleepy but east to arouse. Complains of burning and sharp bilateral lower extremity pain . Historical: - Allergies: 14:23 Haldol (Anaphylaxis); vc 14:23 Narcan (Anaphylaxis); vc - PMHx: 14:23 ADD/ADHD; Anxiety; Bipolar disorder; Cellulitis; Chronic pain; CVA; Diabetes - IDDM; vc Hypertension; neuropathy; Seizures; - PSHx: 14:23 stent on my left leg; right great toe amputation; vc - Immunization history:: Adult Immunizations up to date, Pneumococcal vaccine is up to date, Flu vaccine is up to date. - Social history:: Smoking status: Patient reports the use of cigarette tobacco products, denies chronic smoking, but will smoke occasionally, Patient/guardian denies using alcohol, street drugs. ROS: 15:07 Eyes: Negative for injury, pain, redness, and discharge, ENT: Negative for injury, jr8 pain, and discharge, Neck: Negative for injury, pain, and swelling, Cardiovascular: Negative for chest pain, palpitations, and edema, Respiratory: Negative for shortness of breath, cough, wheezing, and pleuritic chest pain, Abdomen/GI: Negative for abdominal pain, nausea, vomiting, diarrhea, and constipation, Back: Negative for injury and pain, Skin: Negative for injury, rash, and discoloration, Neuro: Negative for headache, weakness, numbness, tingling, and seizure. 15:07 MS/extremity: Positive for pain, tingling. Exam: 15:07 Eyes: Pupils equal round and reactive to light, extra-ocular motions intact. Lids and jr8 lashes normal. Conjunctiva and sclera are non-icteric and not injected. Cornea within normal limits. Periorbital areas with no swelling, redness, or edema. ENT: Nares patent. No nasal discharge, no septal abnormalities noted. Tympanic membranes are normal and external auditory canals are clear. Oropharynx with no redness, swelling, or masses, exudates, or evidence of obstruction, uvula midline. Mucous membranes moist. Neck: Trachea midline, no thyromegaly or masses palpated, and no cervical lymphadenopathy. Supple, full range of motion without nuchal rigidity, or vertebral point tenderness. No Meningismus. Cardiovascular: Regular rate and rhythm with a normal S1 and S2. No gallops, murmurs, or rubs. Normal PMI, no JVD. No pulse deficits. Respiratory: Lungs have equal breath sounds bilaterally, clear to auscultation and percussion. No rales, rhonchi or wheezes noted. No increased work of breathing, no retractions or nasal flaring. Abdomen/GI: Soft, non-tender, with normal bowel sounds. No distension or tympany. No guarding or rebound. No evidence of tenderness throughout. Back: No spinal tenderness. No costovertebral tenderness. Full range of motion. Skin: Warm, dry with normal turgor. Normal color with no rashes, no lesions, and no evidence of cellulitis. Neuro: Awake and alert, GCS 14, oriented to person, place, time, and situation. Cranial nerves II-XII grossly intact. Motor strength 5/5 in all extremities. Decreased lower extremity sensation present bilaterally 15:07 Musculoskeletal/extremity: Extremities: grossly normal except: noted in the left foot: open wound to 2nd digit. No discharge or cellulitis noted , ROM: intact in all extremities, Circulation is intact in all extremities. Sensation intact. Vital Signs: 14:17 BP 126 / 86; Pulse 77; Resp 17; Temp 97.4; Pulse Ox 100% on R/A; Weight 95.25 kg; vc Height 5 ft. 10 in. (177.80 cm); Pain 9/10; 15:00 BP 125 / 76; Pulse 75; Resp 18; Pulse Ox 99% on R/A; vc 16:00 BP 146 / 87; Pulse 78; Resp 18; Pulse Ox 98% on R/A; vc 17:00 BP 154 / 88; Pulse 73; Resp 19; Temp 97.7; Pulse Ox 98% on R/A; vc 14:17 Body Mass Index 30.13 (95.25 kg, 177.80 cm) vc MDM: 14:24 Patient medically screened. [facility] 15:58 Data reviewed: vital signs, nurses notes, lab test result(s), EKG, radiologic studies, [facility] CT scan, plain films. Data interpreted: Pulse oximetry: on room air is 100 %. Interpretation: normal. Counseling: I had a detailed discussion with the patient and/or guardian regarding: the historical points, exam findings, and any diagnostic results supporting the discharge/admit diagnosis, lab results, radiology results, the need for further work-up and treatment in the hospital. 11/30 14:38 Order name: CBC with Diff; Complete Time: 15:25 [facility] 11/30 14:38 Order name: Basic Metabolic Panel; Complete Time: 15:26 [facility] 11/30 14:38 Order name: XRAY Foot LEFT 3 View; Complete Time: 16:02 [facility] 11/30 14:38 Order name: CRP; Complete Time: 15:26 [facility] 11/30 14:38 Order name: CT Head Brain wo Cont; Complete Time: 15:22 [facility] 11/30 15:03 Order name: Glucose, Ancillary Testing; Complete Time: 15:11 EDMS 11/30 14:38 Order name: IV; Complete Time: 14:52 [facility] 11/30 14:38 Order name: Glucose Level; Complete Time: 14:52 [facility] 11/30 17:26 Order name: CT Stone Protocol 8 Administered Medications: 16:09 Drug: NS 0.9% 1000 ml Route: IV; Rate: 1000 ml; Site: left antecubital; vc 17:06 Follow up: IV Status: Completed infusion; IV Intake: 1000ml vc 16:09 Drug: Gabapentin 300 mg Route: PO; vc 17:06 Follow up: Response: No adverse reaction vc Disposition: 18:16 Co-signature as Attending Physician, Tayo Rivas MD. rn Disposition: 12/01/19 16:03 Hospitalization ordered by Jay Sapp for Inpatient Admission. Preliminary diagnosis is Acute kidney failure. - Bed requested for Telemetry/MedSurg (Inpatient). - Status is Inpatient Admission. ll1 - Condition is Stable. - Problem is new. - Symptoms are unchanged. Signatures: Dispatcher [employer] EDMS Gisele Roy RN RN kl Nieto, Roman, MD MD rn Roszak, Josh, PA PA jr8 Gabbi Vigil RN RN vc Lewis, Lynsay, RN RN ll1 Corrections: (The following items were deleted from the chart) 16:06 15:07 Eyes: Pupils equal round and reactive to light, extra-ocular motions intact. Lids jr8 and lashes normal. Conjunctiva and sclera are non-icteric and not injected. Cornea within normal limits. Periorbital areas with no swelling, redness, or edema. ENT: Nares patent. No nasal discharge, no septal abnormalities noted. Tympanic membranes are normal and external auditory canals are clear. Oropharynx with no redness, swelling, or masses, exudates, or evidence of obstruction, uvula midline. Mucous membranes moist. Neck: Trachea midline, no thyromegaly or masses palpated, and no cervical lymphadenopathy. Supple, full range of motion without nuchal rigidity, or vertebral point tenderness. No Meningismus. Cardiovascular: Regular rate and rhythm with a normal S1 and S2. No gallops, murmurs, or rubs. Normal PMI, no JVD. No pulse deficits. Respiratory: Lungs have equal breath sounds bilaterally, clear to auscultation and percussion. No rales, rhonchi or wheezes noted. No increased work of breathing, no retractions or nasal flaring. Abdomen/GI: Soft, non-tender, with normal bowel sounds. No distension or tympany. No guarding or rebound. No evidence of tenderness throughout. Back: No spinal tenderness. No costovertebral tenderness. Full range of motion. Skin: Warm, dry with normal turgor. Normal color with no rashes, no lesions, and no evidence of cellulitis. Neuro: Awake and alert, GCS 14, oriented to person, place, time, and situation. Cranial nerves II-XII grossly intact. Motor strength 5/5 in all extremities. Decreased lower extremity sensation present bilaterally jr8 16:06 15:07 Musculoskeletal/extremity: Extremities: grossly normal except: noted in the left jr8 foot: open wound to 2nd digit. No discharge or cellulitis noted , ROM: intact in all extremities, Circulation is intact in all extremities. Sensation intact. jr8 16:28 16:03 Hospitalization Ordered by Jay Sapp MD for Inpatient Admission. Preliminary kl diagnosis is Acute kidney failure. Bed requested for Telemetry/MedSurg (Inpatient). Status is Inpatient Admission. Condition is Stable. Problem is new. Symptoms are unchanged. jr8 16:50 16:28 12/01/2019 16:03 Hospitalization Ordered by Jay Sapp MD for Inpatient vc Admission. Preliminary diagnosis is Acute kidney failure. Bed requested for Telemetry/MedSurg (Inpatient). Status is Inpatient Admission. Condition is Stable. Problem is new. Symptoms are unchanged. kl 17:58 16:50 12/01/2019 16:03 Hospitalization Ordered by Jay Sapp MD for Inpatient ll1 Admission. Preliminary diagnosis is Acute kidney failure. Bed requested for Telemetry/MedSurg (Inpatient). Status is Inpatient Admission. Condition is Stable. Problem is new. Symptoms are unchanged. vc
[2019-12-01] MEDS ORDERED: GABAPENTIN 300 MG CAP ONE (16:12)
[2019-12-01] MEDS ORDERED: NA CHLORIDE 0.9% 1,000 ML ONE (16:12)
--- NOTE | 2019-12-01 17:59 | RAD REPORT ---
EXAM DESCRIPTION: US - Urinary Bladder - 12/01/2019 5:45 pm CLINICAL HISTORY: Urinary retention COMPARISON: Stone Protocol dated 12/01/2019 FINDINGS: No bladder wall thickening or mass. No stone or other intraluminal filling defect identifi ed. Prevoid volume was 395 milliliters. Postvoid volume was 10 milliliters. IMPRESSION: Bladder ultrasound as detailed.
--- NOTE | 2019-12-01 18:07 | RAD REPORT ---
EXAM DESCRIPTION: CT - Stone Protocol - 12/01/2019 5:50 pm CLINICAL HISTORY: DISTENTION COMPARISON: Stone Protocol dated 04/03/2018; Abdomen Pelvis W Contrast dated 10/09/2015 TECHNIQUE: Axial 5 mm thick images were obtained without oral or IV contrast. The [id number] span s the entirety of the system including uppermost abdomen and lung bases. All CT scans are performed using dose optimization technique as appropriate and may include automated exposure control or mA/KV adjustment according to patient size. FINDINGS: No hydronephrosis is present and no obstructing ureteral calculi. No suspicious renal mass es. Isodense masses and pyelonephritis are not excluded on a stone protocol CT scan. No significant a drenal finding. Urinary bladder is contracted limiting assessment. Ultrasound prior to the study show ed no wall thickening or mass. No bladder or proximal urethra calcification. Imaged portions of the liver, spleen and pancreas show no suspicious findings on non-contrast imaging . No gallbladder or biliary tree abnormality identified. Large amount of ingested food distends the stomach. Gastric outlet obstruction is not suspected. This pattern has been seen previously. No acute small bowel finding. No appendicitis findings. Appendicol ith is present. Moderate stool volume is throughout the colon without colon wall thickening or mass. No mass or bulky lymphadenopathy in the peritoneal or retroperitoneal spaces. Fat extends into the or igin of the left inguinal canal. No free air, free fluid or inflammatory stranding. Patient has bilat eral prominent inguinal lymphadenopathy up to 3 cm in size. Findings are more pronounced on the left. No other abnormal lymphadenopathy pattern. Patient has a few small 1 centimeter or less iliac chain lymph nodes. Prominent disc and bony degenerative changes are present. Pain pump or neurostimulator devices presen t. Battery pack is in the subcutaneous tissues right lower abdomen. No acute lung base finding. Several small calcified granulomas are present. No pericardial thickening or pericardial effusion. IMPRESSION: No hydronephrosis. No obstructing or nonobstructing calculi seen in the ureters, bladder or proximal urethra. Urinary bladder is fully contracted. Patient underwent bladder ultrasound with pre and postvoid volum es immediately prior to the study. Isodense masses and pyelonephritis are not excluded on stone protocol technique. Moderate stool volume throughout the colon. No acute colon process. Significant distention of the sto mach by ingested food noted. Outlet obstruction is not suspected. Similar pattern has been previously seen. Multiple bilateral inguinal lymph nodes with a few small external iliac chain lymph nodes. These are likely reactive and can be correlated with any lower extremity process. Lymph node pattern is only sl ightly more pronounced than 2018. Malignant etiology for the lymph nodes on likely but not entirely e xcluded.
[2019-12-01] MEDS: INSULIN -REGULAR HUMAN 50 UNIT/0.5 ML ML SQ SCH ×2 (18:16→21:00)
[2019-12-01] MEDS ORDERED: ONDANSETRON 4 MG/2 ML VIAL IV PRN (18:16)
[2019-12-01] MEDS ORDERED: ACETAMINOPHEN 500 MG TAB PO PRN (18:16)
[2019-12-01] MEDS: NA CHLORIDE 0.9% 1,000 ML IV SCH (18:44)
[2019-12-01] MEDS: MORPHINE 2 MG/ML SYR IV PRN (21:39)
[2019-12-01 22:36] VITALS: BMI 30.1
[2019-12-01 23:18] VITALS: O2SAT 95
[2019-12-02] MEDS: MORPHINE 2 MG/ML SYR IV PRN (01:24)
--- NOTE | 2019-12-02 02:13 | HP ---
Date of Admission: 12/01/2019 Chief Complaint: Lower extremity pain. Code Status: Full. Consultants: Dr. Bundy with Nephrology. History Of Present Illness: Patient is a 59-year-old male with past medical history of chronic kidne y disease, schizophrenia, complicated with bipolar disorder, diabetes mellitus type 2, hypertension, history of DVT on chronic anticoagulation therapy, history of CVA, history of seizure disorders, come s in with pain in his lower extremities which is worse than usual. He does have a chronic diabetic w ound on his left foot, which is being treated by Podiatry. X-ray was done, shows no acute free air o r any suspicious findings. His workup did reveal elevated kidney function with a creatinine of 3.3. His baseline is about 1.5. Patient denies any NSAID use. Patient did complain of oliguria with min imal urination this morning, may have urinary retention. Patient's symptoms are constant, moderate, progressively worsening. States that his Ashfield for his legs is not working. Patient was referred fo r admission by the ER for further workup. When seen in the ER, he was awake, alert, oriented x3, in some mild distress. Past Medical History: Schizophrenia, bipolar disorder, diabetes mellitus type 2, insulin dependent, hypertension, seizure disorder, peripheral vascular disease, history of osteomyelitis, hyperlipidemia , history of DVT, on anticoagulation. Surgical History: Amputation of the left great toe, neck and back surgery, right eye removal, right knee surgery, bilateral wrist surgery due to suicide attempt. Allergies: TO HALOPERIDOL AND NALOXONE. Medications: List reviewed. Social History: Patient does smoke cigarettes less than a pack a day. No alcohol use or illicit kali g use. Patient is , lives at home. Has 2 children. Family History: Brother has hypertension. Sister has diabetes. Father has heart disease. Mother h as diabetes. Review of Systems: Ten-point system reviewed, negative except as per HPI. Physical Examination: Vital Signs: Blood pressure 126/86, pulse 77, respirations 17, temperature 97.4, O2 100% on room air . BMI 30. General: Awake, alert, oriented x3, in some mild distress, ill-appearing male. HEENT: Normocephalic, atraumatic. Left pupil round, reactive to light. Extraocular movements intac t. Conjunctivae anicteric. Neck: Supple. No JVD. Trachea midline. CV: S1, S2. Regular rate and rhythm. Peripheral pulses present, but diminished. No murmurs. Respiratory: Moving air well bilaterally. No wheezing or stridor. No use of accessory muscles. Gastrointestinal: Abdomen is soft, nontender, nondistended. Positive bowel sounds. No guarding or rigidity. Extremities: No clubbing or cyanosis. Patient has peripheral edema, bilateral lower extremities. N o calf tenderness. Neuro: Cranial nerves 3 through 12 intact grossly. No focal neurological deficit. Strength is symm etric, bilateral upper and lower extremities. Patient has some abnormal speech from his CVA. Skin: Patient has wound on the left second toe, which is chronic. No drainage. Has chronic venous stasis changes bilateral lower extremities. Psych: Mood is somewhat anxious. Affect congruent with mood. Insight and judgment are fair. Laboratory Data: Sodium 139, potassium 3.9, chloride 101, CO2 of 29, BUN 48, creatinine 3.03, glucos e 103, calcium 9.4. CRP 42. WBC 6.1, H and H 11.9 and 34.9, platelets 195, neutrophils 57%. Imaging Studies: CT scan of the head shows no acute intracranial changes, no significant change from comparison. Postsurgical changes with right orbit prosthesis. X-ray of the left foot personally re viewed shows postsurgical or post treatment changes present involving the fifth metatarsal head and f ifth MTP joint, no active bone destruction suspicious for osteomyelitis. Osteomyelitis can exist kera or to radiographs and bone destruction. Assessment And Plan: A 59-year-old male with 1.Acute on chronic kidney disease. Patient's baseline creatinine is around 1.32, stage 2. We will start on IV fluids. Consult Nephrology. May be secondary to urinary retention. Patient had complai aubrey of oliguria. Bladder scan showed [address] urinary catheter. We will obtain CT sca n abdomen to rule out any kidney stones. Patient otherwise denies any NSAID use. 2.Lower extremity pain. Patient states his pain is not controlled with Ashfield. We will add morphine p.r.n., maybe secondary to his diabetic foot wound on the left. We will consult Dr. Mcfadden who has b een managing the patient's wounds in the past. X-ray did not show any acute changes suspicious for o steo. No need for IV antibiotics at this time. White blood cell count is normal. We will continue with topical treatment. 3.Urinary retention as above. We will place a Gilltete catheter and obtain CT rule out any nephrolithi asis or other cause. 4.Diabetes mellitus type 2, insulin requiring. We will start on sliding scale insulin. Monitor blo od glucose levels. 5.Bipolar disorder, stable. We will resume home medications. 6.History of deep venous thrombosis, on chronic anticoagulation. We will continue once home medicat ions have been reconciled. 7.Essential hypertension, stable. Will resume home medications as appropriate. 8.Seizure disorder, stable. Placed on seizure precautions. 9.History of schizophrenia. 10.Nicotine dependence, cigarette smoking, counseled. 11.Mixed hyperlipidemia, continue statin. 12.Peripheral vascular disease. PLAN: Deep venous thrombosis prophylaxis with oral anticoagulation and the patient is taking chronically. Admit patient to Med-Surg, place as inpatient. Length of stay greater than 2 midnights. MONICA Voice ID: [id number]
[2019-12-02 04:24] LABS: Absolute Lymphocytes (CBC) 1.6 K/uL (0.7-4.9); Basophils % 0.5 % (0-1.3); Hematocrit 31.8 % (39.6-49.0); Lymphocytes % 33.2 % (15.3-44.8); MPV 9.9 fL (7.6-11.3); RBC Red Blood Cell Count 3.44 M/uL (4.33-5.43)
[2019-12-02] MEDS: NA CHLORIDE 0.9% 1,000 ML IV SCH ×2 (04:33→13:46)
[2019-12-02 04:34] LABS: Albumin 2.7 g/dL (3.4-5.0); Bilirubin Total 0.3 mg/dL (0.2-1.0); Phosphorus 3.3 mg/dL (2.5-4.9); Protein, Total 6.4 g/dL (6.4-8.2)
[2019-12-02 04:35] LABS: Potassium 4.7 mmol/L (3.5-5.1)
[2019-12-02 04:36] LABS: Magnesium 1.6 mg/dL (1.8-2.4)
[2019-12-02] MEDS: INSULIN -REGULAR HUMAN 50 UNIT/0.5 ML ML SQ SCH ×3 (07:30→17:08)
--- NOTE | 2019-12-02 08:18 | P.CNS ---
Date of Consult: 12/02/19 Reason for Consult: wound left foot History of Present Illness: Patient is a long standing wound care patient . We have seen him in Wound care in the past month. Allergies haloperidol [From Haldol] Allergy (Verified 12/11/18 20:38) Anaphylaxis naloxone [From Narcan] Allergy (Verified 12/11/18 20:38) Anaphylaxis Home Medications: Apixaban [Eliquis] 1 tab PO BID 12/01/19 Benztropine Mesylate [Cogentin*] 1 tab PO BEDTIME 12/01/19 Divalproex Sodium [Depakote] 3 tab PO BEDTIME 12/01/19 Fluticasone/Salmeterol [Advair 250-50 Diskus] 1 puff IH BID PRN 12/01/19 Hydrocodone 10/APAP 325 [Parsons 10/325*] 1 tab PO BID 12/01/19 Losartan Potassium [Cozaar*] 1 tab PO DAILY 12/01/19 Metoprolol Tartrate [Lopressor*] 1 tab PO BID 12/01/19 Risperidone 1 tab PO DAILY 12/01/19 Tramadol HCl [Ultram] 1 tab PO BID 12/01/19 clonazePAM [Klonopin*] 1 tab PO BID 12/01/19 - Past Medical/Surgical History Diabetic: Yes -: Diabetes mellitus type 2, insulin-dependent -: Hypertension -: Seizure disorder -: Peripheral vascular disease -: History of osteomyelitis -: Hyperlipidemia -: Bipolar disorder -: Tobacco abuse -: schizophrenia -: History of amputation to the left great toe -: History of blood clots -: seizures -: Neck and back surgery -: Right eye removal -: Right knee surgery -: Bilateral wrist surgery due to suicide attempt -: Left great toe amputation Psychosocial/ Personal History: Patient is . He has 2 children. He lives at home. - Family History Brother Medical History: Hypertension Sister Medical History: Diabetes Father Medical History: Heart disease Notes: heart attack Mother Medical History: Diabetes - Social History Smoking Status: Current some day smoker Alcohol use: No CD- Drugs: No Caffeine use: Yes Place of Residence: Home Review of Systems 10-point ROS is otherwise unremarkable Physical Examination Temp Pulse Resp BP Pulse Ox 97.7 F 83 18 146/71 H 99 12/02/19 04:00 12/02/19 04:00 12/02/19 04:00 12/02/19 04:00 12/02/19 04:00 General: Alert, In no apparent distress, Oriented x3 Cardiovascular: No edema, Normal pulses Capillary refill: <2 Seconds Musculoskeletal: No clubbing, No swelling, No contractures, No erythema, No tenderness, No warmth Integumentary: Diabetic ulcer (ulceration dorsum left second digit with mostly granular base, no purulence, no edema, no drainage noted. Wound is dry at this time.) Neurological: Abnormal sensation Laboratory Data (last 24 hrs) 12/01/19 14:50: Sodium 139, Potassium 3.9, BUN 48 H, Creatinine 3.03 H, Glucose 103 12/01/19 14:50: WBC 6.1, Hgb 11.9 L, Hct 34.9 L, Plt Count 195 Imagings Data: Foot radiographs left foot were negative for osteomyelitis - Problems (1) Diabetic ulcer of left foot Onset Date: 07/23/18 Current Visit: No Status: Acute Qualifiers: Diabetes mellitus type: type 2 Conclusions/Impression: Sandhu grade 2 left second digit. Will order medihoney to the wound daily. Patient can follow up in wound care upon discharge. Please contact Dr. Mcfadden if wound worsens or signs of infection present Critical Care: No Time Spent Managing Pts care (In Minutes): 25
[2019-12-02] MEDS ORDERED: MEDIHONEY 44 ML TOPICAL TUBE TOP SCH (09:00)
[2019-12-02] MEDS ORDERED: MAGNESIUM SULFATE 1 gm IVPB 1 GM/100 ML BAG IV ONE (10:32)
--- NOTE | 2019-12-02 11:58 | CON ---
Date of Consultation: 12/02/2019 Reason For Consultation: Elevated BUN and creatinine. History Of Present Illness: This is a pleasant 59-year-old gentleman, poor historian with significan t past medical history of diabetes complicated with neuropathy, no retinopathy; seizure; peripheral v ascular disease; history of osteomyelitis; DVT; CVA; patient came to the hospital with pain on the lo wer extremity where his wound. Upon arrival to the hospital, primary workup in the ER showed creatin ine 3.3 without any hyperkalemia, marginal acidosis. Ultrasound was done in the emergency room showe d urine retention of 440. After voiding, has 10 mL of postvoid. Patient denied taking any nonsteroi amber. No IV contrast. Patient was started on IV hydration as of yesterday. Kidney function, creatin ine dropped from 3.3 to 1.8. Reviewing the record for the patient back in August of 2019, creatinine 1.3, GFR of 56. Again, patient denies taking any nonsteroidal. Patient apparently been on losartan. Past Medical History: 1.Schizophrenia. 2.CVA. 3.Bipolar. 4.Diabetes complicated with neuropathy. 5.Peripheral vascular disease. 6.Osteomyelitis. 7.Hyperlipidemia. 8.Chronic kidney disease stage 3, baseline creatinine as of August 2019 1.3, GFR of 56. Surgical History: Amputation of the left great toe, right eye removal, right knee surgery, carpal tu nnel, bilateral wrist surgery due to suicidal attempt. Allergies: TO HALOPERIDOL AND NALOXONE. Social History: Active smoker. Denied alcohol. Denied drug abuse. Current Medications: At home its include; 1.Losartan. 2.Advair. 3.Tramadol. 4.Risperidone. 5.Metoprolol. 6.Depakote. 7.Eliquis. 8.Hydrocodone. Current medications in the hospital include insulin, IV fluid, and Zofran. Review of Systems: Head and Neck: No red eye. No ear pain. Had eye removal. GI: Has nausea without vomiting. : No polyuria. No dysuria. No hematuria. Had urine retention. Tire Spotter: Not applicable. Respiratory: No shortness of breath. Cardiovascular: No chest pain. Endocrine: No polydipsia. Skin: No rash. Neuro: Has neuropathy. Musculoskeletal: Toe pain. Physical Examination: General: Patient lying in bed. Vital Signs: Blood pressure 167/90, pulse of 82, afebrile. Patient had urine output of 550. Chest: Clear to auscultation. Heart: S1, S2. Regular. Abdomen: Soft, nontender. Extremities: Left big toe amputation and dressing on that foot. Neurologic: Alert. No focality. Laboratory Data: WBC 4.8, H and H 10.8/31.8, platelets 171. Sodium 139, potassium 4.7, bicarb 26, B UN 34, creatinine 1.8. Calcium 7.8, phosphorus 3.3, magnesium 1.6, albumin 2.7. Assessment And Plan: 1.Acute kidney injury on chronic kidney disease secondary to prerenal, superimposed with ARB on the recovery, still on the dry side. I am going to continue hydration. I agree with holding the losarta n. We will monitor. 2.Hypertension with the presence of acute kidney injury. Hold losartan. We will start the patient on amlodipine and beta yanely for blood pressure control and we will follow up. 3.Anemia with the presence of acute kidney injury. I am going to go ahead and send for anemia keysha p, serum protein electrophoresis and PC ratio. 4.Hypomagnesemia. We will supplement. 5.Chronic wound infection secondary to diabetes and neuropathy. Follow up with the primary. Follow up with Podiatry. Osteomyelitis has been ruled out. DENIA/PER Voice ID: [id number] Report ID: [id number]
[2019-12-02 15:00] LABS: Urine Appearance CLEAR; Urine Bilirubin NEGATIVE (NEG); Urine Blood NEGATIVE (NEG); Urine Color YELLOW; Urine Glucose 1+ (NEG); Urine Protein 2+ (NEG); Urine Specific Gravity 1.015 (1.005-1.030); Urine Urobilinogen 0.2 mg/dL (0.2-1.0)
[2019-12-02 15:12] LABS: Urine Protein/Creatinine Ratio 1.12 ratio (<0.15)
[2019-12-02 15:20] LABS: Urine Microscopic Reflex ORDER UMIC
[2019-12-02 16:04] LABS: Urine Bacteria NONE SEEN /HPF (NONE SEEN); Urine RBC NONE SEEN /HPF (NONE SEEN)
[2019-12-02 16:05] LABS: Urine Culture Reflex Order NOT NEEDED
[2019-12-02 16:56] VITALS: BP 152/71; TEMP 97.2
[2019-12-02] MEDS ORDERED: HOME MED 1 EA UNK (Fluticasone/Salmeterol [Advair 250-50 Diskus] 1 PUFF) IH PRN (17:13)
--- NOTE | 2019-12-02 20:04 | PN ---
Date of Progress Note: 12/02/2019 Subjective: Patient seen and examined. Chart reviewed and case discussed with RN and Dr. Bundy. Patient seems to be somewhat sleepy today. Does not have any complaints. Medications: List reviewed. Physical Examination: Vital Signs: Temperature 97.8, heart rate 85, blood pressure 165/94, respirations 16, O2 98% on room air. General: Awake, alert, oriented x3, not in any acute distress, obese male. CV: S1, S2. Regular rate and rhythm. Peripheral pulses weak. Respiratory: Moving air well bilaterally. Abdomen: Soft, nontender, nondistended. Positive bowel sounds. Extremities: No clubbing, cyanosis. Patient has lower extremity edema. Neuro: Nonfocal. Moves all 4 extremities. Cranial nerves 3 through 12 intact grossly. Skin: Patient has left foot 2nd toe diabetic foot ulcer with no drainage. Psych: Mood is okay. Affect is flat. Insight and judgment are fair. Laboratory Data: Sodium 139, potassium 4.7, chloride 106, CO2 26, BUN 34, creatinine 1.8, glucose 23 3, calcium 7.8, phosphorus 3.3, magnesium 1.6, albumin 2.7. WBC 4.8, H and H 10.8 and 31.8, platelet s 171. UA is negative. CT scan, abdomen, stone protocol shows no hydronephrosis. No obstructing or nonobstructing calculi seen in the ureters, bladder, or proximal urethra. Significant distention of the stomach by ingested food noted. Multiple bilateral inguinal lymph nodes with small external florentin ac chain lymph nodes, likely reactive and being correlated with lower extremity process. Assessment: 59-year-old male with: 1.Acute on chronic kidney disease stage 2. Creatinine has come down, likely secondary to urinary re tention. Gillette catheter was placed yesterday. CT scan ruled out any stones or hydronephrosis. 2.Lower extremity pain, worse on the left, likely due to his diabetic foot wound. X-ray is negative for osteo. Seen by Dr. Mcfadden. Appreciate his input. We will continue topical wound care with Medi honey. 3.Urinary retention. Patient has Gillette catheter in place. CT is negative. 4.Diabetes mellitus type 2, insulin requiring. We will continue sliding scale insulin. Monitor blo od glucose levels. 5.Bipolar disorder, stable. 6.Essential hypertension, stable. Continue home medications. 7.Seizure disorder, stable. 8.History of schizophrenia. 9.Nicotine dependence, cigarette smoking, counseled. 10.Chronic anticoagulation. We will continue. 11.Mixed hyperlipidemia. We will continue statin. 12.History of deep venous thrombosis. Continue Eliquis. 13.Peripheral vascular disease. Plan: DVT prophylaxis. Patient is on Eliquis. Kidney function is improving. Continue to monitor k idney function and electrolytes, likely discontinue in a.m. once cleared by Nephrology. /MODL Voice ID: [id number] Report ID: [id number]
[2019-12-02] MEDS ORDERED: DIVALPROEX DR 500MG TAB PO SCH (21:00)
[2019-12-02] MEDS ORDERED: carvediloL 6.25 MG TAB PO SCH (21:00)
[2019-12-02] MEDS ORDERED: APIXABAN 5 MG TABLET PO SCH (21:00)
[2019-12-02] MEDS ORDERED: BENZTROPINE 1 MG TAB PO SCH (21:00)
[2019-12-02] MEDS ORDERED: clonazePAM 0.5 MG TAB PO SCH (21:00)
[2019-12-02] MEDS ORDERED: HYDROCODONE/APAP 10/325 TAB PO SCH (21:00)
[2019-12-02] MEDS ORDERED: TRAMADOL HCL 50 MG TAB PO SCH (21:00)
[2019-12-03] MEDS ORDERED: RISPERIDONE PO SCH (09:00)
[2019-12-03] MEDS ORDERED: RISPERIDONE 1 MG TABLET PO SCH (09:00)
[2019-12-03] MEDS ORDERED: AMLODIPINE 10 MG TAB PO SCH (09:00)
--- NOTE | 2019-12-04 00:53 | DS ---
Date of Discharge: 12/02/2019 Consultants: Dr. Mcfadden with Podiatry, Dr. Bundy with Nephrology. Discharge Diagnoses: 1.Acute on chronic kidney disease stage 2, improved. 2.Lower extremity pain worse on the left due to diabetic foot wound, stable. Continue with local wo und care with Medihoney. 3.Urinary retention. CT negative for hydronephrosis. 4.Diabetes mellitus type 2, insulin requiring, stable. 5.Bipolar disorder, stable. 6.Essential hypertension, stable. 7.Seizure disorder, stable. 8.History of schizophrenia, stable. 9.Nicotine dependence, cigarette smoking, counseled. 10.History of deep venous thrombosis, on Eliquis. 11.Mixed hyperlipidemia, on statin. 12.Peripheral vascular disease. Hospital Course: Patient is a 59-year-old male admitted to the hospital for lower extremity pain. H e was found to have elevated kidney function and high at 3.3, which was above his baseline. Started on IV fluids. His kidney function improved. Patient did seem to have some urinary retention and Fol ey catheter was placed. Patient was seen by Nephrology, Dr. Bundy, and CT scan was done, which wa s without any stone or hydronephrosis. Foot x-ray did not show any osteomyelitis. Patient does have some wounds on the left second toe, which is being managed by Dr. Mcfadden, Podiatry as outpatient. He recommended continuing Medihoney and local wound care. Patient pain was being controlled with morph ine. He was then transitioned to oral narcotics. Patient suddenly became upset, wanted IV pain medi cations which were ordered, however, before they were given the patient pulled out his IV blood and I V were found in the bed and patient sneaked out of the hospital from the rear door without telling an y of the nursing staff and was not witnessed. Patient left against medical advice. For physical exam findings please see progress note dictated on day of discharge. /PER Voice ID: [id number] Report ID: [id number]
== END 2019-12-02 18:29 | disposition left against medical advice (07) | DRG 639 ==
LOC: ER 14:03 → ERHOLD 16:18 → 2ND 17:49
PROVIDERS: ADMIT Family Medicine; ATTEND Family Medicine
DX: E11.621 Type 2 diabetes mellitus with foot ulcer (principal); I12.9 Hypertensive chronic kidney disease with stage 1 through stage 4 chronic kidney disease, or unspecified chronic kidney disease; N17.9 Acute kidney failure, unspecified; E11.22 Type 2 diabetes mellitus with diabetic chronic kidney disease; Z86.718 Personal history of other venous thrombosis and embolism; Z86.73 Personal history of transient ischemic attack (TIA), and cerebral infarction without residual deficits; Z79.01 Long term (current) use of anticoagulants; Z79.4 Long term (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; E11.51 Type 2 diabetes mellitus with diabetic peripheral angiopathy without gangrene; Z89.412 Acquired absence of left great toe; Z88.5 Allergy status to narcotic agent; Z88.8 Allergy status to other drugs, medicaments and biological substances; F17.210 Nicotine dependence, cigarettes, uncomplicated; R33.9 Retention of urine, unspecified; F31.9 Bipolar disorder, unspecified; E78.2 Mixed hyperlipidemia; N18.2 Chronic kidney disease, stage 2 (mild); Z11.59 Encounter for screening for other viral diseases; D64.9 Anemia, unspecified; E83.42 Hypomagnesemia; Z79.899 Other long term (current) drug therapy; L97.529 Non-pressure chronic ulcer of other part of left foot with unspecified severity
CPT/HCPCS: 36415; 70450; 74176; 76377; 76857; 80048; 80053; 81003; 81015; 82570; 82947; 83735; 84100; 84156; 85025; 86140; 94760; 96360; 99285; J2270; J3475; J7030; U0002

== ENCOUNTER 2020-02-02 12:59 | Emergency (ER) | payer OTHER ==
--- OUTSIDE RECORDS SUMMARY | 2020-02-02 13:07 | XMS REPORT | Clinical Summary ---
:[address] [facility] Distr ict Address [facility] [place] [address] Care Team Providers Name Role Phone Unavailable [...] foot, unspecified type; Poorly-controll ed hypertension after 02/01/2019 Social History Tobacco Use Types Packs/Day Years [...] SENSITIVITY PM CDT procedure a re in (CARDIAC) the results section. SED RATE STAT 03/27/2019 [...] are i n the results section. after 02/01/2019 Results PTT - every 6 hours x 24 hours (03/27/2019 5:34 PM CDT) PTT 26.6 23.6 - 36.4 [facility] Comment: Seconds The recommended therapuetic range is an APTT 61-103 seconds which corresponds to 0.3-0.7 anti Xa u/ml. Specimen Blood Performing Organization Address [facility] Phone Number [facility] [address] [place] [address] POCT GLUCOSE POC docked device (03/27/2019 4:50 PM CDT) Pathologist Sig [facility] Glucose POC 98 74 - 106 mg/dL [facility] Specimen Blood Performing Organization Address [facility] Phone Number [facility] [address] [place] [address] CRP (High Sensitivity) (03/27/2019 1:29 PM CDT) Pathologist Sig nature CRP, High Sensitivity 1.0 (H) <1.0 mg/L [facility] (Cardiac) Specimen Blood Performing Organization Address [facility] Phone Number [facility] [address] [place] [address] SED Rate (03/27/2019 1:29 PM CDT) Pathologist Sig [facility] Sed Rate 18 0-<20 mm/Hr [facility] Specimen Blood Performing Organization Address [facility] Phone Number [facility] [address] [place] [address] [phone] DUPLEX DOPPLER LOWER EXTREMITY VENOUS, UNILATERAL OR [...] PM Performing Organization Address City/State/Zipcode Phone Number [facility] XRAY CHEST 2 VIEWS (03/27/2019 11:15 [...] Performed At EXAMINATION: XRAY CHEST 2 VIEWS [facility] INDICATION: shortness of breath, lower e [...] PM Performing Organization Address City/State/Zipcode Phone Number [facility] XRAY FOOT 3 VIEWS MIN (03/27/2019 [...] At EXAMINATION: XRAY FOOT 3 VIEWS MIN [facility] SIDE: Left INDICATION: L foot wound [...] AM Performing Organization Address City/State/Zipcode Phone Number [facility] 12 LEAD EKG (03/27/2019 10:54 AM CDT) 12 LEAD EKG FOR [facility] Test Date: 2019-03-27 Pat Name: MARCOS FRY Depart ent: [id number] Room: Gender: M [place] Mixer: [id number] : 1960 9 Requested By: LYSSA Mireles Order Number: [id number] Reading MD: Audi Betancur M.D. Measu rements Intervals [place] Rate: 74 P: 37 VA: 164 QRS: -28 QRSD: 111 T: 11 [...] Daniela Betancur M.D. Specimen Performing Organization Address City/[facility]/Zipcode Phone Number [facility] PT/INR/PTT (03/27/2019 10:52 AM CDT) PT 12.3 [...] Xa u/ml. Specimen Blood Performing Organization Address [facility] Phone Number [facility] [address] [place] [address] CBC/Diff (03/27/2019 10:51 AM CDT) WBC 4.6 [...] [facility] Specimen Blood Performing Organization Address [facility] Phone Number [facility] [address] [place] [address] Comprehensive Metabolic Panel (03/27/2019 10:51 AM CDT) [facility] Sodium 140 136 - 145 [facility] mmol/L Potassium 4.1 3.5 - 5.1 [facility] mmol/L Chloride 104 98 - 107 mmol/L [facility] CO2 28 21 - 31 mmol/L [facility] Glucose 146 (H) 70 - 110 mg/dL [facility] Calcium 9.1 8.6 - 10.3 [...] [facility] Specimen Blood Performing Organization Address [facility] Phone Number [facility] [address] [place] [address] [phone] BNP [B-Type Natriuretic Peptide] (03/27/2019 10:51 AM CDT) Pathologist Sig nature B Natriuretic Peptide 93 <=100 pg/mL [facility] (BNP) Specimen Blood Performing Organization Address City/State/Zipcode Phone Number [facility] [address] [place] [address] after 02/01/2019 Insurance Payer Benefit Plan / Subscriber ID Effective Dates Phone Addre ss Type Group MEDICARE MEDICARE PART xxxxxxxxxxx 2004-Janis [id number] [place] [address] [place] [id number] MQMB SSI xxxxxxxxx 2013-Nadira [phone] [place] [address]
--- OUTSIDE RECORDS SUMMARY | 2020-02-02 13:07 | XMS REPORT | Continuity of Care Document ---
:1960 Author Organization [facility] t Address [address] [place] [address] Care Team Providers Name Role Phone Corine VALENCIA, H Attending Clinician Perry VALENCIA, R Attending Clinician Dorcas VALENCIA, K Attending Clinician Payers Payer Name Policy Type Policy Number Effective Date Expiration Date S jonel MEDICAREMEDICARE PART xxxxxxxxxxx 2004 [place] & 00:00:00 Health [id number]- [id number], [place] [address] [place] [id number] xxxxxxxxx 2013 [facility] SSI 00:00:00 Health [id number], [place] [address] Problems Condition Condition Condition Status Onset Resolution Last Treating Co mments Source Name Details Category Date Date Treatment Clinician Date Unspecifie Unspecifie Disease Active Overview : MD garcia Delirium d Delirium 12-22 psych An derso 00:00: team on n 00 board O/E - Left O/E - Left Disease Active 2018- M D diabetic diabetic 12-22 Lee o foot - foot - 00:00: n ulcerated ulcerated 00 Chronic Chronic Disease Active pain of pain of 12-22 Anderso left foot left foot 00:00: n 00 History of History of Disease Active M D amputation amputation 16 An derso of left of left 00:00: n great toe great toe 00 Hypomagnes Hypomagnes Disease Active M D emia emia 12-22 Anderso 00:00: n 00 Hypertensi Hypertensi Disease Active M D on on 12-21 Anderso 00:00: n 00 Deep Deep Disease Active Overview: venous venous 12-21 Left LE Anderso thrombosis thrombosis 00:00: DVT per n 00 venous Doppler US Altered Altered Disease Active mental mental 3-05 Anderso status status 00:00: n 00 Hyperglyce Hyperglyce Disease Active M D dante dante 108 Anderso 00:00: n 00 History of History of Problem Active [facility] 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 Memori a deficit deficit [facility] ent Clinics retirement retirement Problem Active [facility] (current) (current[facility] Luke s - use of use of Memoria insulin insulin [facility] ent [facility] Chronic Chronic Problem Active [facility] pain pain [facility] History of History of Problem Active [facility] pulmonary pulmonary Luke s - embolism embolism Memori a [facility] Bipolar Bipolar Problem Active [facility] affective affective Luke s - disorder, disorder, Joe cristina currently currently l depressed, depressed, Ou tpati moderate moderate ent Clinics Seizures Seizures Problem [facility] ent [facility] Generalize Generalize Problem Active [facility] d anxiety d anxiety Luke s - disorder disorder Memori a [facility] ent Clinics Tobacco Tobacco Problem Active [facility] use use [facility] - disorder disorder Memori a [facility] ent Clinics 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[facility] 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 Me moria [facility] ent Clinics Attention Attention Problem Active [...] Clinics type type Type 2 Type [address] [facility] diabetes diabetes [facility] - mellitus mellitus Memori a with with l hyperglyce hyperglyce Ou tpati dante dante ent Clinics Mixed Mixed Problem Active [facility] hyperlipid hyperlipid Rita kes - emia emia Memoria l Outpati ent Clinics Essential Essential Problem Active [facility] hypertensi hypertensi Rita kes - on on Memoria l Outpati ent Clinics Panic Panic Problem Active [facility] disorder disorder [facility] - [episodic [episodic Joe cristina paroxysmal paroxysmal l anxiety] anxiety] Outpat i ent Clinics Current Current Problem Active [facility] moderate moderate [facility] - episode of episode [...] l (moderate) (moderate) Ou tpati ent Clinics 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 diabetes Lee o mellitus mellitus n with foot with foot ulcer ulcer Renal Renal Disease Active MD insufficie insufficie An derso ncy ncy n Chronic Chronic Disease Active MD pain of pain of Anderso right foot right foot n Acute deep Acute deep Disease Active H [...] Date Quantity Comments Source Sex Assigned [facility] Alcohol intake 2019-03-27 2019-03-27 Ex-drinker Gabriel Hyde [facility] 00:00:00 00:00:00 (finding) Tobacco use and 2018-12-25 2018-12-25 Current user MD Elio forbes exposure 00:00:00 00:00:00 Smoking Status Start Date Stop Date Source Former smoker 2019-03-27 00:00:00 2019-03-27 00:00:00 Gabriel romero Current some day smoker 2018-12-25 00:00:00 MD A nderson Medications Ordered Filled Start Stop Current Ordering Indication Dosage Frequency Signature Comments Components Source Medication Medication Date Date Medication? Clinician (SIG) Name Name cadexomer Yes Chronic Apply MD iodine 7-20 pain of topically Vj so (IODOSORB) 00:00: right foot to n 0.9% gel 00 affected area(s) every other day. benztropine 2019- Yes .5mg Take 0.5 MD (COGENTIN) 7-19 mg by Anderso 0.5 mg 15:59: mouth n tablet 33 twice daily. HYDROcodone 2019- Yes 1{tbl} Take 1 MD -acetaminop 7-19 tablet by And erso hen (NORCO) 15:59: mouth 3 n 10 mg-325 33 (three) mg per times a tablet day. apixaban Yes deep venous 5mg Take 5 mg MD (ELIQUIS) 5 7-19 thrombosis by mouth Anderso mg tablet 15:59: twice n 33 daily. losartan Yes Chronic 25mg Take 1 MD (COZAAR) 25 7-19 pain of tablet (25 Anderso mg tablet 00:00: right foot mg) by n 00 mouth daily. metoprolol Yes Chronic 25mg Take 1 MD tartrate 7-19 pain of tablet (25 An derso (LOPRESSOR) 00:00: right foot mg) by n 25 mg 00 mouth tablet twice daily. risperiDONE Yes Chronic 4mg Take 1 M D (RisperDAL) 7-19 pain of tablet (4 Anderso 4 mg tablet 00:00: right foot mg) by n 00 mouth at bedtime. collagenase Yes Chronic Apply MD (SANTYL) 7-19 pain of topically And erso ointment 00:00: right foot to n 00 affected area(s) daily. polyethylen Yes Chronic 17g Take 17 g MD e glycol 7-19 pain of by mouth Elio rso (MIRALAX) 00:00: right foot daily. n 17 g packet 00 Can get over the counter senna-docus Yes Chronic 2{tbl} Take 2 MD ate 7-19 pain of tablets by Lee o (SENOKOT-S) 00:00: right foot mouth n 8.6 mg-50 00 twice mg tablet daily. Can get over the counter divalproex Yes Chronic 750mg Take 3 M D (DEPAKOTE) 7-19 pain of tablets And erso 250 mg 24 00:00: right foot (750 mg) n hr tablet 00 by mouth at bedtime. NOVOLIN Yes Type 2 Inject 35 MD 70/30 U-100 7-19 diabetes units And erso INSULIN 100 00:00: mellitus before n unit/mL 00 with foot breakfast (70-30) ulcer and 20 injection units before dinner. HOLD if sugar is less than 100 methocarbam Yes Chronic 500mg Take 1 MD ol 718 pain tablet Anderso (ROBAXIN) 00:00: (500 mg) n 500 mg 00 by mouth tablet every 8 (eight) hours. Victoza Victoza Yes Sylvain Inject 1.[address] Dietrich mg/day [facility] Albuterol Albuterol Yes Sylvain [address] [facility] Sulfate HFA Sulfate HFA Dietrich needed [facility] Duloxetine Duloxetine Yes Sylvain [address] [facility] [facility] HCl HCl Dietrich [facility] Clonazepam Clonazepam Yes Sylvain [address] [facility] Dietrich at bedtime [facility] NovoLIN NovoLIN Yes Sylvain Inject [address] 70/30 70/30 Dietrich units [facility] - FlexPen FlexPen Memoria l Outpati ent Clinics Tramadol Tramadol Yes Sylvain [address] HCl HCl Dietrich as needed [facility] Hydrocodone Hydrocodone Yes Sylvain [address] [facility] -Acetaminop -Acetaminop Dietrich as needed [facility] - hen hen [facility]oria l Outpati ent Clinics Eliquis Eliquis Yes Sylvain TAKE 1 [facility]rich TABLET BY [facility] - MOUTH Memoria TWICE l DAILY Outpati ent Clinics Benztropine Benztropine Yes Sylvain [address] [facility] Mesylate Mesylate Dietrich at bedtime [facility] Amphetamine Amphetamine Yes Sylvain [address] -Dextroamph -Dextroamph Dietrich [facility] - etamine etamine Memoria l Outpati ent Clinics Risperidone Risperidone Yes Sylvain [address] [facility] Dietrich [facility] Metoprolol Metoprolol Yes Sylvain [address] Tartrate Tartrate Dietrich with food [facility] - [facility] Losartan Losartan Yes Sylvain [address] Potassium Potassium Dietrich [facility] - [facility] Divalproex Divalproex Yes Sylvain [address] Sodium ER Sodium ER Dietrich [facility] - [facility] ent Clinics BusPIRone BusPIRone Yes Sylvain [address] HCl HCl Dietrich [facility] Pen [place] Pen [place] Yes Sylvain N/s [facility] Dietrich [facility]ics Atorvastati Atorvastati Yes Sylvain [address] [facility] n Calcium n Calcium Dietrich [facility] - [facility] ent Clinics Advair Advair Yes Sylvain [address] Diskus Diskus Dietrich [facility] True Metrix True Metrix Yes Sylvain USE TO [facility] Blood Blood Dietrich TEST BLOOD Lukes - Glucose Glucose SUGAR 1-2 Joe cristina Test Test TIMES l EVERY DAY Outpati ent Clinics NovoLIN NovoLIN Yes Sylvain INJECT [facility] t 70/30 70/30 Dietrich SUBQUTANEO [facility]ukes - FlexPen FlexPen USLY 65 Memori a UNITS l TWICE Outpati DAILY ent Clinics UltiCare UltiCare Yes Sylvain USE ONE [facility] Micro Pen Micro Pen Dietrich NEEDLE Rita kes - [place] THREE Memoria TIMES l DAILY WITH Outpati VICTOZA ent AND Clinics NOVOLIN FLEXPEN Vital Signs Vital Name Observation Time Observation Value Comments Source Body height 2019-03-27 17:51:[address] [facility] Body weight 2019-03-27 14:22:[address] [facility] BMI 2019-03-27 14:22:00 29.84 kg/m2 [facility] Systolic blood 2019-03-27 13:16:00 180 mm[Hg] [facility]ica [facility] pressure Diastolic blood 2019-03-27 13:16:00 94 mm[Hg] yesica [facility] pressure Heart rate 2019-03-27 13:16:00 74 /min [facility] Respiratory rate 2019-03-27 13:16:00 17 /min [facility] Oxygen saturation in 2019-03-27 13:16:00 100 /min [facility] Arterial blood by Pulse oximetry Body temperature 2019-03-27 11:00:00 36.56 Cece [facility] Procedures Procedure Date / Time Performed Performing Clinician Sourc e PTT 2019-03-27 17:34:00 Leyla Beckett [facility] GLUCOSE POC 2019-03-27 16:50:00 Lyssa Amador [facility] SED RATE 2019-03-27 13:29:00 Lyssa Amador [facility] C-REACTIVE PROTEIN HIGH 2019-03-27 13:29:00 Lyssa Amador [facility] SENSITIVITY (CARDIAC) DUPLEX DOPPLER LOWER 2019-03-27 12:02:47 Paul Stone [facility] EXTREMITY VENOUS, UNILATERAL OR LIMITED XRAY FOOT 3 VIEWS MIN 2019-03-27 11:15[facility]IEWS 2019-03-27 11:15:07 Lyssa Amador ealth 12 LEAD EKG 2019-03-27 10:54:22 Lyssa Amador [facility] PT/INR/PTT 2019-03-27 10:52:00 Lyssa Amador [facility] CBC/DIFF 2019-03-27 10:51:00 Lyssa Amador [facility] B-TYPE NATRIURETIC PEPTIDE 2019-03-27 10:51:00 Lyssa Amador [facility] (BNP) COMPREHENSIVE METABOLIC 2019-03-27 10:51:00 [facility] PANEL CBC 2019-03-27 10:51:00 Lyssa Amador [facility] Plan of Care Planned Activity Planned Date Details Comments Source Future Scheduled Test 2020-03-09 00:00:00 IMM Influenza [facility] Seasonal Mar to August (>/= 19 yrs) [code = IMM Influenza Seasonal Mar to August (>/= 19 yrs)] Future Scheduled Test 2011 00:00:00 Screening for [facility] malignant neoplasm of colon (procedure) [code = 968094296] Encounters Start End Encounter Admission Attending Care Care Encounter Source Date/Time Date/Time Type Type Clinicians Facility Department ID 2020-01-26 2020-01-26 [facility] [id number] [facility] 11:04:00 11:04:00 [facility] Medicine Medicine Outpati ent Clinics 2020-01-05 2020-01-05 [facility] [id number] 16:30:00 16:30:00 [place] [address] [facility] Medicine l Medicine Outpati ent Clinics 2020-01-03 2020-01-03 [facility] [id number] 10:59:00 10:59:00 [facility] [address] [facility] Medicine Outpati ent Clinics 2019-12-17 2019-12-17 [facility] [id number] 12:00:00 12:30:00 Visit Bernardino Le Joel [id number] [place] [id number] [place] [id number] [address] 2019-11-24 2019-11-24 [facility] [id number] 11:16:00 11:16:00 [facility] l Medicine Outpati ent Clinics 2019-11-24 2019-11-24 [facility] [id number] 11:15:00 11:15:00 [facility] [employer] [facility] Medicine Medicine Outpati ent Clinics 2019-11-11 2019-11-11 [facility] [id number] 09:41:00 09:41:00 [facility] l Medicine Outpati ent Clinics 2019-11-10 2019-11-10 [facility] [id number] 10:30:00 10:30:00 [facility] [address] [facility] Medicine l Medicine Outpati ent Clinics 2019-03-27 2019-03-27 Emergency [facility] [id number] Gabriel 11:00:00 11:00:00 Health 2019-03-27 2019-03-27 Emergency [facility] [id number] Gabriel 10:55:25 10:55:25 Health 2019-03-27 2019-03-27 Emergency [facility] [id number] Gabriel 08:02:06 08:02:06 Health 2019-03-27 2019-03-27 Emergency [facility] [id number] [place] 00:00:00 00:00:00 Health Results Test Description Test Time Test Comments Results Result Comments Source PTT - every 6 hours x 24 hours 2019-03-27 18:07:00 Test Item Value Reference Range Interpretation Comme nts PTT (test code = 32337157) 26.6 23.6- 36.4 Seconds The recommended therapuetic ran ge is an APTT 61-103 sec onds which corresponds to 0.3-0.7 anti Xa u/ml. Lab Interpretation (test code Normal = 51905-2) [facility] GLUCOSE POC docked [id number] 16:51:00 Test Item Value Reference Range Interpretation Comments Glucose POC (test code = 63298570) 98 mg/dL 74-106 Lab Interpretation (test code = Normal 33147-4) [facility]2019-03-27 14:41:00 Test Item Value Reference Range Interpretation Comments CRP, High Sensitivity (Cardiac) 1.0 mg/L <1.0 H (test code = 61196998) Lab Interpretation (test code = Abnormal 44050-2) [facility] [id number] 14:26:00 Test Item Value Reference Range Interpretation Comments Sed Rate (test code = 75243721) 18 0-<20 mm/Hr Lab Interpretation (test code = Normal 85352-6) [facility] [B-Type Natriuretic Peptide]2019-03-27 13:12:00 Test Item Value Reference Range Interpretation Comments B Natriuretic Peptide (BNP) (test 93 pg/mL <=100 code = 43052868) Lab Interpretation (test code = Normal 23144-0) [place] [address] LEAD [id number] 12:48:5612 LEAD EKG FOR [facility] Test Date: [id number] Name: MARCOS RAMOS Department: 5520Patient ID: [id number] Room: Gender: M Recruiting Internship: [id number]: 1960 Requested By: LYSSA Freeman Number: [id number] Jr MD: Audi Betancur M.D. MeasurementsIntervals [place] Rate: 74 P: 37PR: 164 QRS: -28QRSD: 111 T: 11QT: 397 QTc: 442 Interpretive StatementsSINUS RH YTHMBORDERLINE LEFT AXIS DEVIATION [QRS AXIS < -20]MODERATE INTRAVENTRICULAR CONDUCTION DELAY [110+ ms QRS DURATION]MINIMAL VOLTAGE CRITERIA FOR LVH, CONSIDER NORMAL VARIANT [MEETS CRITERIA INONE OF: R(aVL), S(V1), R(V5), R(V5/V6)+S(V1)]Electronically Signed On 03-27-2019 12:48:54 CDT by Audi simmons M.D.[facility] DOPPLER LOWER EXTREMITY VENOUS, UNILATERAL OR [id number] 12:24:51IMPRESSION: Occlusive deep venous thrombosis involving the left lower extremity fromthe mid femoral vein extending into the popliteal vein. Findings discussed with Dr. Amador by Dr. Dietrich at 12:18pm on 03/27/19. [...] into the popliteal vein.Findings discussed with Dr. Amador by Dr. Dietrich at 12:18pm on 03/27/19. Dictated By: Ramone Dietrich MD, 03/27/2019 12:19 PMI have reviewed the study and agree with the findings in this report.Signed By: Gary Sierra MD, 03/27/2019 12:24 [facility] Comprehensive Metabolic [id number] 12:17:00 Test Item Value Reference Range Interpretation Comments Sodium (test code = 2951-2) 140 mmol/L 136-145 Potassium (test code = 2823-3) 4.1 mmol/L 3.5-5.1 Chloride (test code = 2075-0) 104 mmol/L 98-107 CO2 (test code = 29950167) 28 mmol/L 21-31 Glucose (test code = 02169944) 146 mg/dL 70-110 H Calcium (test code = 08758400) 9.1 mg/dL 8.6-10.3 Urea Nitrogen (test code = 25.0 mg/dL 7-25 58034405) Creatinine (test code = 1.0 mg/dL 0.7-1.3 71073077) Alkaline Phosphatase (test 89 U/L 34-104 code = 22846918) ALT (test code = 20589188) 30 U/L 7-52 AST (test code = 66864467) 21 U/L 13-39 Total Protein (test code = 7.3 g/dL 6-8.3 2885-2) GFR, Estimated (test code = 77 >=90 mL/min/1.73 m2 L 05822795) Albumin (test code = 34657-0) 4.0 g/dL 4.2-5.5 L Anion Gap (test code = 8 mmol/L 5-16 44765678) Lab Interpretation (test code Abnormal = 31430-8) [facility] 2 [id number] 12:02:29IMPRESSION: Mild central pulmonary vascular congestion. No [...] report.Signed By: Gary Sierra MD, 03/27/2019 12:02 [facility] 3 VIEWS [id number] 11:51:43IMPRESSION: Radiographic findings compatible with osteomyelitis of [...] By: Gary Sierra MD, 03/27/2019 11:51 AM Interface, Rad/Mammog In - 03/27/2019 11:56 AM CDTEXAMINATION: XRAY [...] report.Signed By: Gary Sierra MD, 03/27/2019 11:51 [id number] 11:27:00 Test Item Value Reference Range Interpretation Comments PT (test code = 5902-2) 12.3 11.8- 15.0 Seconds INR (test code = 0.9 Refer to INR 2.0 - 3.0 for moderate 00590403) ranges intensity anticoagulation 2.5 - 3.5 for high in tensity anticoagulation PTT (test code = 25.9 23.6- 36.4 The recomm ended 37005013) Seconds therapuetic ran ge is an APTT 61-103 sec onds which correspon ds to 0.3-0.7 anti Xa u/ml. Lab Interpretation Normal (test code = 83856-4) [facility][id number] 11:15:00 Test Item Value Reference Range Interpretation [...] 32.5 g/dL 32-36 RDW (test code = 74101-1) 50.3 fL 35.1-43.9 H Platelet (test code = 777-3) 216 K/uL 150-400 Mean Platelet Volume (test code = 10.2 fL 9.4-12.4 99217-8) Percent NRBC (test code = 54596802) 0.0 % Neutrophil (test code = 770-8) 53.9 % 34-67.9 Lymphs (test code = 736-9) 32.8 % 21.8-50 Monocytes (test code = 5905-5) 11.0 % 5.3-12 Eos (test code = 713-8) 1.5 % 0.8-5 Basos (test code = 706-2) 0.2 % 0.2-1.2 Immature Granulocytes (test code = 0.6 % 0-0.5 H 21209224) Neutrophils (Absolute) (test code = 2.50 K/uL 1.78-5.36 48315919) Lymphs (Absolute) (test code = 1.52 K/uL 1.32-3.57 57244491) Monocytes(Absolute) (test code = 0.51 K/uL 0.3-0.82 90960862) Eos (Absolute) (test code = 0.07 K/uL 0.04-0.54 02668562) Baso (Absolute) (test code = 0.01 K/uL 0.01-0.08 42300528) Immature Grans (Abs) (test code = 0.03 K/uL 0-0.03 12511463) Absolute NRBC (test code = 0.00 K/uL 53973739) Lab Interpretation (test code = Abnormal 36208-1) [facility]
--- OUTSIDE RECORDS SUMMARY | 2020-02-02 13:07 | XMS REPORT ---
:1960 Author Organization [employer] Care Team Providers Name Role Phone DietrichSylvain Provider Role Unavailable Allergies, Adverse Reactions, Alerts Substance Reaction Event Type N.K.D.A. 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 Z79.4 Active Problem [...] Status Dosage System Date Date Silvino [facility] 24874796969 18 MG/3ML Active Inject 1.8 Subcutaneous mg/day Once a day Albuterol [facility] 85258327889 108 (90 Base) Active 1 pu ff as Sulfate HFA MCG/ACT needed Inhalation every 4 hrs Duloxetine HCl [facility] 91835991435 60 MG Orally Active 1 capsule Once a day Clonazepam [facility] 99539522904 0.5 MG Orally Active 1 t ablet Once a day at bedtime NovoLIN 70/30 [facility] 37332399469 (70-30) 100 Active In ject 65 FlexPen UNIT/ML units Subcutaneous BID Tramadol HCl [facility] 90737209442 50 MG Orally Active 1 tablet Once a day as needed Hydrocodone-Acet [facility] 63867973724 10-325 MG Active 1 tablet aminophen Orally every 6 as need ed hrs Eliquis [facility] 33673765281 5 MG Orally Active 1 tablet Once a day Benztropine [facility] 66010688277 0.5 MG Orally Active 1 tablet Mesylate Once a day at bedtime Amphetamine-Dext [facility] 03839547007 30 MG Orally Active 1 tablet roamphetamine Twice a day Risperidone [facility] 41230276869 4 MG Orally Active 1 ta blet Once a day Metoprolol [facility] 44798218356 50 MG Orally Active 1 ta blet Tartrate Twice a day with food Losartan [facility] 48851359786 50 MG Orally Active 1 tabl et Potassium Once a day Divalproex [facility] 60139684934 500 MG Orally Active 1 t ablet Sodium ER Once a day BusPIRone HCl [facility] 27677109295 10 MG Orally Active 1 tablet Twice a day Pen [place] [facility] 22620452807 32G x 4 mm 06/14" Active N/s n/s once a day Atorvastatin [facility] 89475323673 40 MG Orally Active 1 tablet Calcium Once a day Advair Diskus [facility] 26234202311 250-50 MCG/DOSE Active 1 puff Inhalation Twice a day Results No Known Results Summary Purpose [employer] Submission
--- OUTSIDE RECORDS SUMMARY | 2020-02-02 13:07 | XMS REPORT ---
:1960 Author Organization [employer] Care Team Providers Name Role Phone DietrichSylvain Provider Role Unavailable Allergies No Known Allergies Problems Problem Type Condition Code Onset Dates Condition Statu s Problem senior care (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 Z79.4 Active Problem [...]
--- OUTSIDE RECORDS SUMMARY | 2020-02-02 13:08 | XMS REPORT | Summary of Care ---
:1960 Author Organization [facility] Address [address] [place] [address] Care Team Providers Name Role Phone Sylvain Dietrich Primary Care Provider Reason for Visit Reason Comments Establish Care Diabetes Encounter Details Date Type Department Care Team Description 12/17/2019 Office Visit [facility] Bernardino Pool, NO SHOW ( Primary Dx) Endocrinology- [place] [address] [place] [address] [address] [facility] [address] [facility], [address] [place] [address] [place], [place] [phone] [address] [phone] Allergies No Known Allergiesdocumented as of this encounter (statuses as of 01/16/2020) Medications Medication Sig Dispensed Refills Start Date End Date Status FLUOXETINE 20 MG ORAL 1 Cap Oral DAILY 30 1 08/15/2005 Active CAP CLONAZEPAM 1 MG ORAL 1 Tab Oral BIDPRN 30 0 08/15/2005 Active TAB Additional Information Patient taking differently: Take 1 tablet by mouth three times daily., Reported on 03/07/2017 11:10 AM QUETIAPINE 300 MG ORAL TAB 1 Tab Oral QHS 30 1 08/16/19 06 Active DEPAKOTE ER 500 MG ORAL TB24 take one tab oral qam and two 90 1 08/15/2005 Active tabs oral qpm Additional Information Patient taking differently: Take 2 tablets by mouth QHS, Reported on 03/07/2017 11:10 AM ADDERALL 20 MG ORAL TAB take one tab by mouth 60 0 02/2006 Active twice daily meclizine (ANTIVERT) 25 mg Take 1 Tab by mouth 3 12 Tab 0 0 10/18/2012 Active tablet (three) times daily as needed for Dizziness. benztropine (COGENTIN) 0.5 mg TAKE 1 TABLET BY MOUTH 5 03/24/2016 Active tablet TWICE A DAY pantoprazole (PROTONIX) 40 mg TAKE ONE (1) TABLET(S) 0 05/12/2016 Active EC tablet BY MOUTH ONCE A DAY BEFORE MEALS. risperiDONE (RISPERDAL) 4 mg TAKE 1 TABLET BY MOUTH 5 03/24/2016 Active tablet AT BEDTIME traMADOL (ULTRAM) 50 mg Take 1 tablet by mouth 0 09/2015 Active tablet three times daily. diclofenac (VOLTAREN) 75 mg Take 1 tablet by mouth 2 60 tablet 1 05/21/2016 Active EC tablet (two) times daily with meals. dextroamphetamine-amphetamine Take 30 mg by mouth 2 0 Active (ADDERALL) 30 mg tablet (two) times daily. HYDROcodone-acetaminophen Take 1 tablet by mouth 3 0 Active 10-325 mg tablet (three) times daily. metoprolol tartrate 50 mg Take 50 mg by mouth 2 0 Active tablet (two) times daily. losartan 50 mg tablet Take 50 mg by mouth 0 Active daily. DULoxetine 60 mg capsule Take 60 mg by mouth 0 Active daily. insulin glargine 100 unit/mL inject 15 Units under 10 mL 0 06/17/2017 Active injection the skin 2 (two) times daily. documented as of this encounter (statuses as of 01/16/2020) Active Problems Problem Noted Date Altered mental state 08/11/2017 Hyperglycemia 06/16/2017 Bipolar I disorder, most recent episode (or current) d epressed, severe, 08/13/2005 without mention of psychotic behavior documented as of this encounter (statuses as of 01/16/2020) Social History Tobacco Use Types Packs/Day Years Used Date Current Some Day Smoker Cigarettes 0.5 Smokeless Tobacco: Never Used Comments: smokes 5 cigarettes a day Alcohol Use Drinks/Week oz/Week Comments No 0 Standard drinks or equivalent 0.0 Sex Assigned at Date Recorded Not on file COVID-19 Exposure Response Date Recorded In the last month, have you been in contact with No / Unsure 12/15/2019 3:03 PM CDT someone who was confirmed or suspected to have Coronavirus / COVID-19? documented as of this encounter Last Filed Vital Signs Not on filedocumented in this encounter Progress Notes Bernardino Pool MD - 12/17/2019 12:00 PM CDTNo show documented in this encounter Plan of Treatment Date Type Specialty Care Team Description 02/18/2020 Office Visit Endocrinology Diabetes & Bernardino Knox MD Metabolism [address] [place] [address] 15 [phone] Health Maintenance Due Date Last Done Comments HEPATITIS C (HCV) SCREEN 1960 Depression Screening 1973 DTaP,Tdap,and Td Vaccines (1 - 02/16/1980 Tdap) COLON CANCER SCREENING ANNUAL 2011 FIT/FOBT COLON CANCER SCREENING FIT DNA 2011 EVERY 3 YEARS COLON CANCER SCREENING 2011 SIGMOIDOSCOPY EVERY 5 YEARS COLONOSCOPY 2011 Colorectal Cancer Screening 2011 Zoster Recombinant Vaccine 2011 (SHINGRIX) (1 of 2) LUNG CANCER SCREEN: Recommended for 02/16/2016 age 55-80 with 30 + pack year history INFLUENZA VACCINE (#1) 2020 PNEUMOCOCCAL 0-64 YEARS COMBINED Aged Out No longer eligible based on SERIES patient's age to complete this topic documented as of this encounter Implants Implanted Type Area Nurse Quality Device Identifier Shelf Exp iration Model / Date Serial / L ot Pain Pump Pain Pump documented as of this encounter Results Not on filedocumented in this encounter Visit Diagnoses Diagnosis NO SHOW - Primary documented in this encounter Insurance Payer Benefit Plan / Subscriber ID Effective Dates Phone Addre ss Type Group MEDICARE MEDICARE PART [id number] 2004-Janis [phone] [address] Medicare A & B t 2 [id number] ESTEFANY HOLLOWAY [address] [facility] MEDICAID OF [id number] 2013-Nadira [phone] [address] Medicaid [place] nt 0 [id number] [place] [address] documented as of this encounter
--- OUTSIDE RECORDS SUMMARY | 2020-02-02 13:08 | XMS REPORT ---
:1960 Author Organization [employer] Care Team Providers Name Role Phone Sylvain Dietrich Provider Role Unavailable Allergies No Known Allergies Problems Problem Type Condition Code Onset Dates Condition Statu s Problem Continuous opioid dependence F11.20 Active Problem Bipolar affective disorder, F31.32 Active currently depressed, moderate Problem Current moderate episode of major F32.1 Active depressive disorder without prior episode Problem Type 2 diabetes mellitus with E11.22 Active diabetic chronic kidney disease Problem Type 2 diabetes mellitus with E11.65 Active hyperglycemia Problem Chronic kidney disease, stage 3 N18.3 Active (moderate) Problem History of CVA with residual I69.30 Active deficit Problem Chronic obstructive pulmonary J44.9 Active disease, unspecified COPD type Problem terminal manager (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 Z79.4 Active Problem Attention deficit hyperactivity F90.2 Active disorder (ADHD), combined type Problem Tobacco use disorder F17.200 Active Problem Panic disorder [episodic paroxysmal F41.0 Active anxiety] Problem Seizures R56.9 Active Problem Generalized anxiety disorder F41.1 Active Problem Mixed hyperlipidemia E78.2 Active Problem History of pulmonary embolism Z86.711 Active Problem Chronic pain syndrome G89.4 Active Problem Essential hypertension I10 Activ e Medications No Known Medications Results No Known Results Summary Purpose eClinicalWorks Submission
--- OUTSIDE RECORDS SUMMARY | 2020-02-02 13:08 | XMS REPORT | Summary of Care ---
:1960 Author Organization [facility] Address [address] [place] [address] Care Team Providers Name Role Phone Sylvain Dietrich Primary Care Provider Reason for Visit Reason Comments Establish Care Diabetes Encounter Details Date Type Department Care Team Description 12/17/2019 Office Visit [facility] Bernardino Pool, NO SHOW ( Primary Dx) Endocrinology- [place] [address] [place] [address] Dr 146 [facility] [address] [facility], [address] [place] [address] [place], [place] [phone] [address] [phone] Allergies No Known Allergiesdocumented as of this [...] [address] [place] [address] 15 [phone] Health Maintenance Due Date Last Done Comments [...] of this encounter Implants Implanted Type Area Fruit Culler Device Identifier Shelf Exp iration Model / Date Serial / L ot Pain Pump Pain Pump documented as of this encounter Results Not on filedocumented in this encounter Visit Diagnoses Diagnosis NO SHOW - Primary documented in this encounter Insurance Payer Benefit Plan / Subscriber ID Effective Dates Phone Addre ss Type Group MEDICARE MEDICARE PART [id number] 2004-Janis [phone] [address] Medicare A & B t 2 [id number] ESTEFANY HOLLOWAY [address] [facility] MEDICAID OF [id number] 2013-Nadira [phone] [address] Medicaid [place] 0 [id number] [place] [address] documented as of this encounter
--- OUTSIDE RECORDS SUMMARY | 2020-02-02 13:08 | XMS REPORT ---
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.4 Active Problem Seizures R56.9 Active Assessment History of CVA with residual I69.30 Active deficit Problem Generalized anxiety disorder F41.1 Active Problem Mixed hyperlipidemia E78.2 Active Problem Chronic pain syndrome G89.4 Active Medications Medication Code Code Instructions Start End Status Dosage System Date Date Hydrocodone-Acet [facility] 40734232977 10-325 MG Active 1 tablet aminophen Orally every 6 as need ed hrs Clonazepam [facility] 78919378896 0.5 MG Orally Active 1 t ablet Once a day at bedtime Duloxetine HCl [facility] 19137823001 60 MG Orally Active 1 capsule Once a day Pen [place] [facility] 34704261899 32G x 4 mm 6" Active N/s n/s once a day True Metrix [facility] 53872114800 - Active USE TO Blood Glucose TEST BLOOD Test SUGAR 1-2 TIMES EVERY DAY Albuterol [facility] 97958177276 108 (90 Base) Active 1 pu ff as Sulfate HFA MCG/ACT needed Inhalation every 4 hrs Atorvastatin [facility] 37687027140 40 MG Orally Active 1 tablet Calcium Once a day Benztropine [facility] 58452037005 0.5 MG Orally Active 1 tablet Mesylate Once a day at bedtime Victoza [facility] 79051510557 18 MG/3ML Active Inject 1.8 Subcutaneous mg/day Once a day NovoLIN 70/30 [facility] 85676974322 (70-30) 100 Active In ject 65 FlexPen UNIT/ML units Subcutaneous BID BusPIRone HCl [facility] 30436708703 10 MG Orally Active 1 tablet Twice a day Tramadol HCl [facility] 72920826048 50 MG Orally Active 1 tablet Once a day as needed Advair Diskus [facility] 72294209172 250-50 MCG/DOSE Active 1 puff Inhalation Twice a day Divalproex [facility] 76591027321 500 MG Orally Active 1 t ablet Sodium ER Once a day Eliquis [facility] 83444231846 5 MG Active TAKE 1 TABLET BY MOUTH TWICE DAILY Losartan [facility] 99469600431 50 MG Orally Active 1 tabl et Potassium Once a day Amphetamine-Dext [facility] 12651598856 30 MG Orally Active 1 tablet roamphetamine Twice a day Risperidone [facility] 20702485420 4 MG Orally Active 1 ta blet Once a day Metoprolol [facility] 52175137975 50 MG Orally Active 1 ta blet Tartrate Twice a day with food Results No Known Results Summary Purpose eClinicalWorks Submission
--- OUTSIDE RECORDS SUMMARY | 2020-02-02 13:08 | XMS REPORT ---
[...] diabetes mellitus with E11.65 Active hyperglycemia Assessment At risk for polypharmacy Z91.89 Act geri Problem Chronic kidney disease, stage 3 N18.3 Active (moderate) Assessment Mixed hyperlipidemia E78.2 Active Problem History of CVA with residual I69.30 Active deficit Problem Chronic obstructive pulmonary J44.9 Active disease, unspecified COPD type Problem custodial (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 Z79.4 Active Problem Attention deficit hyperactivity F90.2 Active disorder (ADHD), combined type Assessment Hyperkalemia E87.5 Active Problem Tobacco use disorder F17.200 Active Assessment Proteinuria, unspecified type R80.9 Active Problem Panic disorder [episodic paroxysmal F41.0 Active anxiety] Assessment History of pulmonary embolism Z86.711 Active Assessment Essential hypertension I10 Activ e Assessment 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 (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 Z79.4 Active Assessment Lower urinary tract symptoms R39.9 Active Problem Seizures R56.9 Active Assessment History of CVA with residual I69.30 Active deficit Problem Generalized anxiety disorder F41.1 Active Problem Mixed hyperlipidemia E78.2 Active Problem Chronic pain syndrome G89.4 Active Medications Medication Code Code Instructions Start End Status Dosage System Date Date Albuterol [facility] 49941486306 108 (90 Base) Active 1 pu ff as needed Sulfate HFA MCG/ACT Inhalation every 4 hrs Clonazepam ND 01261072076 0.5 MG Orally Active 1 t ablet at Once a day bedtime Divalproex ND 32901685122 500 MG Orally Active 1 t ablet Sodium ER Once a day BusPIRone HCl ND 35863407882 10 MG Orally Active 1 tablet Twice a day Metoprolol ND 64645651032 50 MG Orally Active 1 ta blet with Tartrate Twice a day food NovoLIN 70/30 ND 15155941281 () 100 Active IN JECT FlexPen UNIT/ML SUBQUTANEOUSLY 65 UNITS TWICE DAILY Victoza ND 43318801977 18 MG/3ML Active Inject 1.8 Subcutaneous mg/day Once a day Advair Diskus [facility] 91594838715 250-50 Active 1 puff MCG/DOSE Inhalation Twice a day Hydrocodone-Misael ND 67074993037 10-325 MG Active 1 tablet as taminophen Orally every 6 needed hrs Benztropine ND 79686666635 0.5 MG Orally Active 1 tablet at Mesylate Once a day bedtime Eliquis [facility] 69458385530 5 MG Active TAKE 1 TABLE T BY MOUTH TWICE DAILY UltiCare Micro ND 59556364164 32G X 4 MM Active US E ONE NEEDLE [place] THREE TIMES DAILY WITH VICTOZA AND NOVOLIN FLEXPEN True Metrix [facility] 23800842454 - Active USE TO T EST Blood Glucose BLOOD SUGA R 1-2 Test TIMES EVERY DAY NovoLIN 70/30 ND 20144337840 () 100 Active In ject 65 units FlexPen UNIT/ML Subcutaneous BID Risperidone ND 99933473543 4 MG Orally Active 1 ta blet Once a day Amphetamine-Dex [facility] 16674214965 30 MG Orally Active 1 tablet troamphetamine Twice a day Tramadol HCl [facility] 05220843353 50 MG Orally Active 1 tablet as Once a day needed [place] [facility] 73333186423 32G x 4 mm Active N/s /6" n/s once a day Losartan [facility] 61560726446 50 MG Orally Active 1 tabl et Potassium Once a day Duloxetine HCl [facility] 59308077921 60 MG Orally Active 1 capsule Once a day Atorvastatin [facility] 34982696635 40 MG Orally Active 1 tablet Calcium Once a day Results No Known Results Summary Purpose eClinicalWorks Submission
--- OUTSIDE RECORDS SUMMARY | 2020-02-02 13:08 | XMS REPORT | Summary of Care ---
:1960 Author Organization [facility] Address [address] [place] [address] Care Team Providers Name Role Phone Pcp, Patient Does Not Have A Primary Care Provider +[id number] 0-0000 Nabeel Dietrich Primary Care Provider Encounter Details Date Type Department Care Team Description 12/08/2019 Orders Only [facility] Doctor Unassigned, No [address] [facility] [place] [address] [address] [place] [address] Allergies No Known Allergiesdocumented as of this encounter (statuses as of 12/30/2019) Medications Medication Sig Dispensed Refills Start Date End Date Status FLUOXETINE 20 MG ORAL 1 Cap Oral DAILY 30 1 08/15/2005 Active CAP CLONAZEPAM 1 MG ORAL 1 Tab Oral BIDPRN 30 0 08/15/2005 Active TAB Additional information Patient taking differently: Take 1 tablet by mouth three times daily., Reported on 03/07/2017 11:10 AM QUETIAPINE 300 MG ORAL TAB 1 Tab Oral QHS 30 1 08/16/19 06 Active DEPAKOTE ER 500 MG ORAL TB24 take one tab oral qam and two 90 1 08/15/2005 Active tabs oral qpm Additional information Patient taking differently: Take 2 tablets by [...] as of this encounter (statuses as of 12/30/2019) Active Problems Problem Noted Date Altered mental state 08/11/2017 Hyperglycemia 06/16/2017 Bipolar I disorder, most recent episode (or current) d epressed, severe, 08/13/2005 without mention of psychotic behavior documented as of this encounter (statuses as of 12/30/2019) Social History Tobacco Use Types Packs/Day Years [...] Travel End No recent travel history available. COVID-19 Exposure Response Date Recorded In the last month, have you been in contact with No / Unsure 12/15/2019 3:03 PM CDT someone who was confirmed or suspected to have Coronavirus / COVID-19? documented as of this encounter Last Filed Vital Signs Not on filedocumented in this encounter Plan of Treatment Health Maintenance Due Date Last Done Comments HEPATITIS C (HCV) SCREEN 1960 DTaP,Tdap,and Td Vaccines (1 - 02/16/1972 Tdap) Depression Screening 1973 COLONOSCOPY 2011 Zoster Recombinant Vaccine 2011 (SHINGRIX) (1 of 2) LUNG CANCER SCREEN: Recommended 02/16/2016 for age 55-80 with 30 + pack year history INFLUENZA VACCINE (#1) 2020 PNEUMOCOCCAL 0-64 YEARS COMBINED Aged Out No longer eligible based on SERIES patient's age to complete this topic documented as of this encounter Implants Implanted Type Area Community Relations Manager Device Identifier Shelf Exp iration Model / Date Serial / L ot Pain Pump Pain Pump documented as of this encounter Procedures Procedure Name Priority Date/Time Associated Diagnosis Comme nts REFERRAL- Routine 12/08/2019 12:01 AM CDT REQUEST/RESPONSE documented in this encounter Results Not on filedocumented in this encounter Insurance Payer Benefit Plan / Subscriber ID Effective Dates Phone Addre ss Type Group MEDICARE MEDICARE PART xxxxxxxxxx 2004-Janis [phone] P[address] Medicare A & B t 2 [id number] ESTEFANY HOLLOWAY [address] [facility] MEDICAID OF xxxxxxxxx 2013-Nadira [phone] [address] Medicaid [place] nt 0 [id number] [place] [address] documented as of this encounter
--- OUTSIDE RECORDS SUMMARY | 2020-02-02 13:08 | XMS REPORT ---
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
--- OUTSIDE RECORDS SUMMARY | 2020-02-02 13:09 | XMS REPORT ---
[...] J44.9 Active disease, unspecified COPD type Problem assisted (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 Z79.4 Active Problem [...]
[2020-02-02 15:51] LABS: Absolute Lymphocytes (CBC) 2.2 K/uL (0.7-4.9); Basophils % 0.5 % (0-1.3); Hematocrit 35.6 % (39.6-49.0); Lymphocytes % 34.6 % (15.3-44.8); MPV 9.8 fL (7.6-11.3); RBC Red Blood Cell Count 3.91 M/uL (4.33-5.43)
[2020-02-02 16:06] LABS: Magnesium 1.7 mg/dL (1.8-2.4)
--- NOTE | 2020-02-02 16:28 | ER ---
Nurse's Notes [facility] Name: Gasper Fry Age: 59 yrs Sex: Male : 1960 Arrival Date: 02/02/2020 Time: 13:01 Bed 6 Private MD: Diagnosis: Near Syncope Presentation: 02/01 13:44 Chief complaint: Patient states: Dr. Dietrich sent me here to get checked out because I've jl7 been dizzy, my BP has been running high and my sugar has been running high, and my legs have been hurting. BGL in triage 240. Coronavirus screen: Client denies travel out of the [place] in the last 14 days. At this time, the client does not indicate any symptoms associated with coronavirus-19. Ebola Screen: No symptoms or risks identified at this time. Initial Sepsis Screen: Does the patient meet any 2 criteria? No. Patient's initial sepsis screen is negative. Does the patient have a suspected source of infection? No. Patient's initial sepsis screen is negative. Risk Assessment: Do you want to hurt yourself or someone else? Patient reports no desire to harm self or others. Onset of symptoms is unknown. Care prior to arrival: None. Transition of care: patient was not received from another setting of care. 13:44 Method Of Arrival: Ambulatory [facility] 13:44 Acuity: DARREL 3 jl7 Triage Assessment: 13:48 General: Appears in no apparent distress. uncomfortable, Behavior is calm, cooperative, jl7 appropriate for age. Pain: Complains of pain in right leg and left leg Pain currently is 8 out of 10 on a pain scale. Historical: - Allergies: 13:48 Haldol (Anaphylaxis); jl7 13:48 Narcan (Anaphylaxis); jl7 - Home Meds: 13:48 Adderall XR 30 mg Oral cp24 1 cap twice a day [Active]; atorvastatin 40 mg Oral tab 1 jl7 tab once daily [Active]; Cogentin Oral 0.5 mg twice a day [Active]; Eliquis 5 mg Oral tab 1 tab 2 times per day [Active]; hydrocodone-acetaminophen 10-325 mg Oral tab 1 tab twice a day [Active]; Glucophage Oral [Active]; Klonopin 0.5 mg Oral tab 1 tab 2 times per day [Active]; losartan 50 mg Oral tab 1 tab once daily [Active]; Novolin 70/30 [place] 45 units Sub-Q 45 units twice a day with meals [Active]; metoprolol tartrate 50 mg Oral tab 1 tab 2 times per day [Active]; Risperdal 4 mg Oral tab 1 tab 2 times per day [Active]; tramadol 50 mg Oral tab 1 tab twice a day [Active]; Victoza 2-Reid subcutaneous [Active]; - PMHx: 13:48 ADD/ADHD; Anxiety; Bipolar disorder; Cellulitis; Chronic pain; CVA; Diabetes - IDDM; jl7 Hypertension; neuropathy; Seizures; - PSHx: 13:48 stent on my left leg; right great toe amputation; jl7 - Immunization history:: Adult Immunizations unknown. - Social history:: Smoking status: Patient reports the use of cigarette tobacco products, smokes one-half pack cigarettes per day. Screenin:50 Abuse screen: Denies threats or abuse. Denies injuries from another. Nutritional bp screening: No deficits noted. Tuberculosis screening: No symptoms or risk factors identified. Fall Risk None identified. Assessment: 13:50 General: SEE TRIAGE NOTE. bp 15:00 Reassessment: VS STABLE ON MONITOR, PT ASYMPTOMATIC. bp 16:50 Reassessment: PT D/C HOME AMBULATORY, DX WITH NEAR--SYNCOPE. bp Vital Signs: 13:44 BP 149 / 86; Pulse 88; Resp 17; Temp 97.8; Pulse Ox 100% ; Weight 95.25 kg; Pain 8/10; jl7 15:14 BP 173 / 68 Sitting; Pulse 84; Resp 17; Pulse Ox 100% on R/A; mh5 15:16 BP 154 / 78 Supine; Pulse 81; Resp 18; Pulse Ox 100% on R/A; mh5 15:18 BP 142 / 72 Standing; Pulse 83; Resp 18; Pulse Ox 100% on R/A; mh5 16:51 BP 185 / 89; Pulse 85; Resp 20; Temp 98; Pulse Ox 100% ; bp ED Course: 13:01 Patient arrived in ED. ag5 13:46 Triage completed. jl7 13:48 Arm band placed on right wrist. jl7 13:49 Patient placed in waiting room, Patient notified of wait time. jl7 13:50 Patient has correct armband on for positive identification. Bed in low position. Call bp light in reach. Side rails up X2. 14:22 Mik Ledbetter PA is PHCP. jr8 14:22 Tayo Rivas MD is Attending Physician. jr 14:40 Micky Torres, RN is Primary Nurse. bp 15:23 Placed in gown. Warm blanket given. library monitor on. Pulse ox on. NIBP on. mh5 15:23 EKG done, by ED staff, reviewed by Mik ALLISON. 5 15:43 Magnesium Sent. mh5 15:43 Basic Metabolic Panel Sent. 5 15:43 CBC with Diff Sent. 5 16:27 Sylvain Dietrich DO is Referral Physician. jr8 16:51 No provider procedures requiring assistance completed. IV discontinued, intact, bp bleeding controlled, No redness/swelling at site. Pressure dressing applied. Administered Medications: 16:30 Drug: NS 0.9% 500 ml Route: IV; Rate: bolus; Site: left antecubital; bp 16:49 Follow up: IV Status: Completed infusion; IV Intake: 500ml bp Intake: 16:49 IV: 500ml; Total: 500ml. bp Outcome: 16:27 Discharge ordered by MD. jr8 16:51 Discharged to home ambulatory. bp 16:51 Condition: stable 16:51 Discharge instructions given to patient, Instructed on discharge instructions, follow up and referral plans. Demonstrated understanding of instructions, follow-up care. 16:52 Patient left the ED. bp Signatures: Mik Ledbetter PA PA [facility] Lucina Parra 5 José Antonio Todd RN RN jl7 Micky Torres, MALU RN bp Logan Lancaster 5
--- NOTE | 2020-02-02 16:28 | EDPHYS ---
Physician Documentation [facility] Name: Gasper Fry Age: 59 yrs Sex: Male : 1960 Arrival Date: 02/02/2020 Time: 13:01 Bed 6 Private MD: ED Physician Tayo Rivas HPI: 02/01 15:48 This 59 yrs old Male presents to ER via Ambulatory with complaints of jr8 Dizziness, High Blood Pressure, High Blood Sugar. 15:48 Onset: The symptoms/episode began/occurred gradually, 2 day(s) ago. Modifying factors: jr8 The symptoms are alleviated by nothing, the symptoms are aggravated by standing up. Associated signs and symptoms: The patient has no apparent associated signs or symptoms. Severity of symptoms: At their worst the symptoms were mild in the emergency department the symptoms are unchanged. Patient's baseline: Neuro: alert and fully oriented, Motor: no deficits, Ambulation: walks without assistance, Speech: normal. It is unknown whether or not the patient has had similar symptoms in the past. The patient has not recently seen a physician. Patient stated that for the past couple of days has had dizziness and near syncope episodes with walking for short distances. Denies chest pain or shortness of breath . Historical: - Allergies: 13:48 Haldol (Anaphylaxis); jl7 13:48 Narcan (Anaphylaxis); jl7 - Home Meds: 13:48 Adderall XR 30 mg Oral cp24 1 cap twice a day [Active]; atorvastatin 40 mg Oral tab 1 jl7 tab once daily [Active]; Cogentin Oral 0.5 mg twice a day [Active]; Eliquis 5 mg Oral tab 1 tab 2 times per day [Active]; hydrocodone-acetaminophen 10-325 mg Oral tab 1 tab twice a day [Active]; Glucophage Oral [Active]; Klonopin 0.5 mg Oral tab 1 tab 2 times per day [Active]; losartan 50 mg Oral tab 1 tab once daily [Active]; Novolin 70/30 Innolet 45 units Sub-Q 45 units twice a day with meals [Active]; metoprolol tartrate 50 mg Oral tab 1 tab 2 times per day [Active]; Risperdal 4 mg Oral tab 1 tab 2 times per day [Active]; tramadol 50 mg Oral tab 1 tab twice a day [Active]; Victoza 2-Reid subcutaneous [Active]; - PMHx: 13:48 ADD/ADHD; Anxiety; Bipolar disorder; Cellulitis; Chronic pain; CVA; Diabetes - IDDM; jl7 Hypertension; neuropathy; Seizures; - PSHx: 13:48 stent on my left leg; right great toe amputation; jl7 - Immunization history:: Adult Immunizations unknown. - Social history:: Smoking status: Patient reports the use of cigarette tobacco products, smokes one-half pack cigarettes per day. ROS: 16:10 Eyes: Negative for injury, pain, redness, and discharge, ENT: Negative for injury, jr8 pain, and discharge, Neck: Negative for injury, pain, and swelling, Cardiovascular: Negative for chest pain, palpitations, and edema, Respiratory: Negative for shortness of breath, cough, wheezing, and pleuritic chest pain, Abdomen/GI: Negative for abdominal pain, nausea, vomiting, diarrhea, and constipation, Back: Negative for injury and pain, MS/Extremity: Negative for injury and deformity, Skin: Negative for injury, rash, and discoloration. 16:10 Neuro: Positive for dizziness, near syncope. Exam: 16:10 Eyes: Pupils equal round and reactive to light, extra-ocular motions intact. Lids and jr8 lashes normal. Conjunctiva and sclera are non-icteric and not injected. Cornea within normal limits. Periorbital areas with no swelling, redness, or edema. ENT: Nares patent. No nasal discharge, no septal abnormalities noted. Tympanic membranes are normal and external auditory canals are clear. Oropharynx with no redness, swelling, or masses, exudates, or evidence of obstruction, uvula midline. Mucous membranes moist. Neck: Trachea midline, no thyromegaly or masses palpated, and no cervical lymphadenopathy. Supple, full range of motion without nuchal rigidity, or vertebral point tenderness. No Meningismus. Cardiovascular: Regular rate and rhythm with a normal S1 and S2. No gallops, murmurs, or rubs. Normal PMI, no JVD. No pulse deficits. Respiratory: Lungs have equal breath sounds bilaterally, clear to auscultation and percussion. No rales, rhonchi or wheezes noted. No increased work of breathing, no retractions or nasal flaring. Abdomen/GI: Soft, non-tender, with normal bowel sounds. No distension or tympany. No guarding or rebound. No evidence of tenderness throughout. Back: No spinal tenderness. No costovertebral tenderness. Full range of motion. Skin: Warm, dry with normal turgor. Normal color with no rashes, no lesions, and no evidence of cellulitis. MS/ Extremity: Pulses equal, no cyanosis. Neurovascular intact. Full, normal range of motion. Neuro: Awake and alert, GCS 15, oriented to person, place, time, and situation. Cranial nerves II-XII grossly intact. Motor strength 5/5 in all extremities. Sensory grossly intact. Cerebellar exam normal. Normal gait. Vital Signs: 13:44 BP 149 / 86; Pulse 88; Resp 17; Temp 97.8; Pulse Ox 100% ; Weight 95.25 kg; Pain 8/10; jl7 15:14 BP 173 / 68 Sitting; Pulse 84; Resp 17; Pulse Ox 100% on R/A; mh5 15:16 BP 154 / 78 Supine; Pulse 81; Resp 18; Pulse Ox 100% on R/A; mh5 15:18 BP 142 / 72 Standing; Pulse 83; Resp 18; Pulse Ox 100% on R/A; mh5 16:51 BP 185 / 89; Pulse 85; Resp 20; Temp 98; Pulse Ox 100% ; bp MDM: 14:36 Patient medically screened. [facility] 16:10 Data reviewed: vital signs, nurses notes, lab test result(s), EKG, and as a result, I [facility] will discharge patient. Data interpreted: Pulse oximetry: on room air is 100 %. Interpretation: normal. Counseling: I had a detailed discussion with the patient and/or guardian regarding: the historical points, exam findings, and any diagnostic results supporting the discharge/admit diagnosis, lab results, the need for outpatient follow up, a family practitioner, to return to the emergency department if symptoms worsen or persist or if there are any questions or concerns that arise at home. Response to treatment: the patient's symptoms have markedly improved after treatment, patient is well hydrated. 02/01 13:55 Order name: Glucose, Ancillary Testing; Complete Time: 14:40 EDMS 02/01 14:53 Order name: CBC with Diff; Complete Time: 15:57 8 02/01 14:53 Order name: Basic Metabolic Panel; Complete Time: 16:09 jr02/01 14:53 Order name: Magnesium; Complete Time: 16:09 8 02/01 14:53 Order name: IV; Complete Time: 15:43 02/01 14:53 Order name: EKG - Nurse/Tech; Complete Time: 15:19 02/01 14:53 Order name: Orthostatic Blood Pressure; Complete Time: 15:19 Administered Medications: 16:30 Drug: NS 0.9% 500 ml Route: IV; Rate: bolus; Site: left antecubital; bp 16:49 Follow up: IV Status: Completed infusion; IV Intake: 500ml bp Disposition: 17:10 Co-signature as Attending Physician, Tayo Rivas MD. rn Disposition: 02/02/20 16:27 Discharged to Home. Impression: Near Syncope . - Condition is Stable. - Discharge Instructions: Near-Syncope. - Medication Reconciliation Form, Thank You Letter, Antibiotic Education, Prescription Opioid Use form. - Follow up: Sylvain Dietrich DO; When: 2 - 3 days; Reason: Recheck today's complaints, Continuance of care, Re-evaluation by your physician. - Problem is new. - Symptoms have improved. Signatures: Dispatcher [employer] EDMS Tayo Rivas MD MD rn Roszak, Josh, PA PA jr8 José Antonio Todd RN RN jl7 Micky Torres RN RN bp Corrections: (The following items were deleted from the chart) 16:52 16:27 02/02/2020 16:27 Discharged to Home. Impression: Near Syncope . Condition is bp Stable. Forms are Medication Reconciliation Form, Thank You Letter, Antibiotic Education, Prescription Opioid Use. Follow up: Sylvain Dietrich; When: 2 - 3 days; Reason: Recheck today's complaints, Continuance of care, Re-evaluation by your physician. Problem is new. Symptoms have improved. jr8
[2020-02-07 12:58] VITALS: O2SAT 100
[2020-02-07 13:03] VITALS: BP 185/89; TEMP 98
== END 2020-02-02 16:52 | disposition home or self-care (01) ==
LOC: ER 12:59
DX: R55 Syncope and collapse (principal); I10 Essential (primary) hypertension; F17.210 Nicotine dependence, cigarettes, uncomplicated; G40.909 Epilepsy, unspecified, not intractable, without status epilepticus; E11.9 Type 2 diabetes mellitus without complications; F31.9 Bipolar disorder, unspecified; Z79.4 Long term (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; Z79.01 Long term (current) use of anticoagulants; Z88.5 Allergy status to narcotic agent
CPT/HCPCS: 36415; 80048; 82947; 83735; 85025; 93005; 99284

== ENCOUNTER 2020-02-11 21:36 | Emergency (ER) | payer OTHER ==
--- OUTSIDE RECORDS SUMMARY | 2020-02-11 21:38 | XMS REPORT | Clinical Summary ---
:1960 Author Organization [facility] Address [facility] [place] [address] Care Team Providers Name Role Phone Unavailable [...] foot, unspecified type; Poorly-controll ed hypertension after 02/10/2019 Social History Tobacco Use Types Packs/Day Years [...] are i n the results section. after 02/10/2019 Results PTT - every 6 hours x 24 hours (03/27/2019 5:34 PM CDT) PTT 26.6 23.6 - 36.4 [facility] Comment: Seconds The recommended therapuetic range is an APTT 61-103 seconds which corresponds to 0.3-0.7 anti Xa u/ml. Specimen Blood Performing Organization Address [facility] Phone Number [facility] [address] [place] [address] POCT GLUCOSE POC docked device (03/27/2019 4:50 PM CDT) Pathologist Sig [facility] Glucose POC 98 74 - 106 mg/dL [facility] Specimen Blood Performing Organization Address [facility] Phone Number [facility] [address] [place] [address] [phone] CRP (High Sensitivity) (03/27/2019 1:29 PM CDT) Pathologist Sig nature CRP, High Sensitivity 1.0 (H) <1.0 mg/L [facility] (Cardiac) Specimen Blood Performing Organization Address [facility] Phone Number [facility] [address] [place] [address] [phone] SED Rate (03/27/2019 1:29 PM CDT) Pathologist Sig [facility] Sed Rate 18 0-<20 mm/Hr [facility] Specimen Blood Performing Organization Address [facility] Phone Number [facility] [address] [place] [address] DUPLEX DOPPLER LOWER EXTREMITY VENOUS, UNILATERAL OR [...] PM Performing Organization Address City/State/Zipcode Phone Number [facility] XRAY CHEST 2 VIEWS (03/27/2019 11:15 [...] Performed At EXAMINATION: XRAY CHEST 2 VIEWS [facility] INDICATION: shortness of breath, lower e [...] PM Performing Organization Address City/State/Zipcode Phone Number [facility] XRAY FOOT 3 VIEWS MIN (03/27/2019 [...] At EXAMINATION: XRAY FOOT 3 VIEWS MIN [facility] SIDE: Left INDICATION: L foot wound [...] AM Performing Organization Address City/State/Zipcode Phone Number [facility] 12 LEAD EKG (03/27/2019 10:54 AM CDT) 12 LEAD EKG FOR [facility] Test Date: 2019-03-27 Pat Name: MARCOS FRY Depart ent: [id number] Room: Gender: M Signal Tester: [id number] : 1960 9 Requested By: LYSSA Mireles Order Number: [id number] Reading MD: Audi Betancur M.D. Measu rements Intervals [place] Rate: 74 P: 37 [place]: 164 QRS: -28 QRSD: 111 T: 11 [...] Daniela Betancur M.D. Specimen Performing Organization Address City/[facility]/Zipcode Phone Number [facility] PT/INR/PTT (03/27/2019 10:52 AM CDT) PT [...] Xa u/ml. Specimen Blood Performing Organization Address [facility] Phone Number [facility] [address] [place] [address] [phone] CBC/Diff (03/27/2019 10:51 AM CDT) WBC 4.6 [...] [facility] Specimen Blood Performing Organization Address [facility] Phone Number [facility] [address] [place] [address] Comprehensive Metabolic Panel (03/27/2019 10:51 AM CDT) [facility] Sodium 140 136 - 145 [facility] [...] [facility] Specimen Blood Performing Organization Address [facility] Phone Number [facility] [address] [place] [address] BNP [B-Type Natriuretic Peptide] (03/27/2019 10:51 AM CDT) Pathologist Sig nature B Natriuretic Peptide 93 <=100 pg/mL [facility] (BNP) Specimen Blood Performing Organization Address City/State/Zipcode Phone Number [facility] [address] [place] [address] after 02/10/2019 Insurance Payer Benefit Plan / Subscriber ID Effective Dates Phone Addre ss Type Group MEDICARE MEDICARE PART xxxxxxxxxxx 2004-Janis [id number] [place] [address] [place] MED[place] [id number] MQMB SSI xxxxxxxxx 2013-Nadira [phone] [phone] [place] [address]
--- OUTSIDE RECORDS SUMMARY | 2020-02-11 21:40 | XMS REPORT ---
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 Problem Seizures R56.9 Active Assessment History of CVA with residual I69.30 Active deficit Problem Generalized anxiety disorder F41.1 Active Problem Mixed hyperlipidemia E78.2 Active Problem Chronic pain syndrome G89.4 Active Medications Medication Code Code Instructions Start End Status Dosage System Date Date Hydrocodone-Acet [facility] 49332009852 10-325 MG Active 1 tablet aminophen Orally every 6 as need ed hrs Clonazepam [facility] 43462131000 0.5 MG Orally Active 1 t ablet Once a day at bedtime Duloxetine HCl [facility] 09859601484 60 MG Orally Active 1 capsule Once a day Pen Ravalli [facility] 77258719736 32G x 4 mm 6" Active N/s n/s once a day True Metrix [facility] 96061853690 - Active USE TO Blood Glucose TEST BLOOD Test SUGAR 1-2 TIMES EVERY DAY Albuterol [facility] 79253384308 108 (90 Base) Active 1 pu ff as Sulfate HFA MCG/ACT needed Inhalation every 4 hrs Atorvastatin [facility] 98510998985 40 MG Orally Active 1 tablet Calcium Once a day Benztropine [facility] 25978740115 0.5 MG Orally Active 1 tablet Mesylate Once a day at bedtime Victoza [facility] 95068929850 18 MG/3ML Active Inject 1.8 Subcutaneous mg/day Once a day NovoLIN 70/30 [facility] 07128059723 (70-30) 100 Active In ject 65 FlexPen UNIT/ML units Subcutaneous BID BusPIRone HCl [facility] 15657046077 10 MG Orally Active 1 tablet Twice a day Tramadol HCl [facility] 38948255830 50 MG Orally Active 1 tablet Once a day as needed Advair Diskus [facility] 36225132575 250-50 MCG/DOSE Active 1 puff Inhalation Twice a day Divalproex [facility] 65765541229 500 MG Orally Active 1 t ablet Sodium ER Once a day Eliquis [facility] 40807917909 5 MG Active TAKE 1 TABLET BY MOUTH TWICE DAILY Losartan [facility] 11070749023 50 MG Orally Active 1 tabl et Potassium Once a day Amphetamine-Dext [facility] 80577839062 30 MG Orally Active 1 tablet roamphetamine Twice a day Risperidone [facility] 75560085924 4 MG Orally Active 1 ta blet Once a day Metoprolol [facility] 69398221802 50 MG Orally Active 1 ta blet Tartrate Twice a day with food Results No Known Results Summary Purpose eClinicalWorks Submission
--- OUTSIDE RECORDS SUMMARY | 2020-02-11 21:40 | XMS REPORT ---
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 Active Assessment Lower urinary tract symptoms R39.9 Active Problem Seizures R56.9 Active Assessment History of CVA with residual I69.30 Active deficit Problem Generalized anxiety disorder F41.1 Active Problem Mixed hyperlipidemia E78.2 Active Problem Chronic pain syndrome G89.4 Active Medications Medication Code Code Instructions Start End Status Dosage System Date Date Albuterol [facility] 74914148234 108 (90 Base) Active 1 pu ff as needed Sulfate HFA MCG/ACT Inhalation every 4 hrs Clonazepam ND 19392464324 0.5 MG Orally Active 1 t ablet at Once a day bedtime Divalproex ND 22987734943 500 MG Orally Active 1 t ablet Sodium ER Once a day BusPIRone HCl ND 45552880788 10 MG Orally Active 1 tablet Twice a day Metoprolol ND 64113832668 50 MG Orally Active 1 ta blet with Tartrate Twice a day food NovoLIN 70/30 ND 28350269759 () 100 Active IN JECT FlexPen UNIT/ML SUBQUTANEOUSLY 65 UNITS TWICE DAILY Victoza ND 57285067367 18 MG/3ML Active Inject 1.8 Subcutaneous mg/day Once a day Advair Diskus [facility] 99111629862 250-50 Active 1 puff MCG/DOSE Inhalation Twice a day Hydrocodone-Misael ND 33137477300 10-325 MG Active 1 tablet as taminophen Orally every 6 needed hrs Benztropine ND 21911199399 0.5 MG Orally Active 1 tablet at Mesylate Once a day bedtime Eliquis [facility] 83534864270 5 MG Active TAKE 1 TABLE T BY MOUTH TWICE DAILY [employer] ND 48081657433 32G X 4 MM Active US E ONE NEEDLE Pen Bode THREE TIMES DAILY WITH VICTOZA AND NOVOLIN FLEXPEN True Metrix [facility] 62566997662 - Active USE TO T EST Blood Glucose BLOOD SUGA R 1-2 Test TIMES EVERY DAY NovoLIN 70/30 ND 54865962954 () 100 Active In ject 65 units FlexPen UNIT/ML Subcutaneous BID Risperidone ND 95610675878 4 MG Orally Active 1 ta blet Once a day Amphetamine-Dex [facility] 32963385549 30 MG Orally Active 1 tablet troamphetamine Twice a day Tramadol HCl [facility] 98007548286 50 MG Orally Active 1 tablet as Once a day needed Pen Bode [facility] 02619323716 32G x 4 mm Active N/s /6" n/s once a day Losartan [facility] 31341405936 50 MG Orally Active 1 tabl et Potassium Once a day Duloxetine HCl [facility] 95683782009 60 MG Orally Active 1 capsule Once a day Atorvastatin [facility] 88018408878 40 MG Orally Active 1 tablet Calcium Once a day Results No Known Results Summary Purpose eClinicalWorks Submission
--- OUTSIDE RECORDS SUMMARY | 2020-02-11 21:40 | XMS REPORT | Continuity of Care Document ---
:[address] [facility] t Address [address] [place] [address] Care Team Providers Name Role Phone Corine VALENCIA, H Attending Clinician Perry VALENCIA, R Attending Clinician Dorcas VALENCIA, K Attending Clinician Payers Payer Name Policy Type Policy Number Effective Date Expiration Date S jonel MEDICAREMEDICARE PART xxxxxxxxxxx 2004 [place] & 00:00:00 Health Bxxxxxxxxxxx2004- [phone] [address] [place] [id number] xxxxxxxxx 2013 [facility] SSI 00:00:00 Health [id number], [place] [address] Problems Condition Condition Condition Status Onset Resolution Last Treating Co mments Source Name Details Category Date Date Treatment Clinician Date Unspecifie Unspecifie Disease Active Overview : MD garcia Delirium d Delirium 12-22 psych An derso 00:00: team on n 00 board O/E - Left O/E - Left Disease Active M D diabetic diabetic 12-22 Lee o [...] - residual residual Memori a deficit deficit [facility] ent Clinics FDC FDC Problem Active [facility]current[facility] (current[facility] Luke s - use of use of Memoria insulin insulin [facility] ent [facility] Chronic Chronic Problem Active [facility] pain pain [facility] - syndrome [facility] History of History of Problem Active [facility] pulmonary pulmonary Luke s - embolism embolism Memori a [facility] Bipolar Bipolar Problem Active [facility] affective affective Luke s - disorder, disorder, Joe cristina currently currently l depressed, depressed, Ou tpati moderate moderate ent Clinics Seizures Seizures Problem [facility] - Memoria [facility] ent [facility] Generalize Generalize Problem Active [facility] d anxiety d anxiety Luke s - disorder disorder Memori a [facility] ent Clinics Tobacco Tobacco Problem Active [facility] use use Lukes - disorder disorder Memori a [facility] ent Clinics 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[facility] 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 Me moria [facility] ent Clinics Attention Attention Problem Active [...] Date Quantity Comments Source Sex Assigned At [facility] Alcohol intake 2019-03-27 2019-03-27 Ex-drinker Gabriel Hyde [facility] 00:00:00 00:00:00 (finding) Tobacco use and [...] - Memoria l Outpati ent Clinics [place] Yes Sylvain N/s [facility]rich [facility] [...] Micro Pen Dietrich NEEDLE Rita kes - [place] THREE Memoria TIMES l DAILY WITH Outpati VICTOZA ent AND Clinics NOVOLIN FLEXPEN Vital Signs Vital Name Observation Time Observation Value Comments Source Body height 2019-03-27 17:51:00 182.9 cm [facility] Body weight 2019-03-27 14:22:00 99.791 kg [facility] BMI 2019-03-27 14:22:00 29.84 kg/m2 [facility] Systolic blood 2019-03-27 13:16:00 180 mm[Hg] [facility]ica [facility] pressure Diastolic blood 2019-03-27 13:16:00 94 mm[Hg] yesica [facility] pressure Heart rate 2019-03-27 13:16:00 74 /min [facility] Respiratory rate 2019-03-27 13:16:00 17 /min [facility] Oxygen saturation in 2019-03-27 13:16:00 100 /min [facility] Arterial blood by Pulse oximetry Body temperature 2019-03-27 11:00:00 36.56 Cece [facility] Procedures Procedure Date / Time Performed Performing Clinician Sourc e PTT 2019-03-27 17:34:00 Leyla Beckett [facility] GLUCOSE POC 2019-03-27 16:50:00 Lyssa Amador [facility] SED RATE 2019-03-27 13:29:00 Lyssa Amador [facility] C-REACTIVE PROTEIN HIGH 2019-03-27 13:29:00 Lyssa Amador [facility] SENSITIVITY (CARDIAC) DUPLEX DOPPLER LOWER 2019-03-27 12:02:47 Paul Stone [facility] EXTREMITY VENOUS, UNILATERAL OR LIMITED XRAY FOOT 3 VIEWS MIN 2019-03-27 11:15:07 [facility] 2 VIEWS 2019-03-27 11:15:07 Lyssa Amador [facility] 12 LEAD EKG 2019-03-27 10:54:22 Lyssa Amador [facility] PT/INR/PTT 2019-03-27 10:52:00 Lyssa Amador [facility] CBC/DIFF 2019-03-27 10:51:00 Lyssa Amador [facility] B-TYPE NATRIURETIC PEPTIDE 2019-03-27 10:51:00 Lyssa Amador [facility] (BNP) COMPREHENSIVE METABOLIC 2019-03-27 10:51:00 Lysas Amador [facility] PANEL CBC 2019-03-27 10:51:00 Lyssa Amador [facility] Plan of Care Planned Activity Planned Date Details Comments Source Future Scheduled Test 2020-03-09 00:00:00 IMM Influenza [facility] Seasonal Mar to August (>/= 19 yrs) [code = IMM Influenza Seasonal Mar to August (>/= 19 yrs)] Future Scheduled Test 2011 00:00:00 Screening for [facility] malignant neoplasm of colon (procedure) [code = 013345483] Encounters Start End Encounter Admission Attending Care Care Encounter Source Date/Time Date/Time Type Type Clinicians Facility Department ID 2020-01-26 2020-01-26 [facility] [id number] [facility] 11:04:00 11:04:00 [facility] Medicine Medicine Outpati ent Clinics 2020-01-05 2020-01-05 [facility] [id number] 16:30:00 16:30:[address] [facility] Medicine l Medicine Outpati ent Clinics 2020-01-03 2020-01-03 [facility] [id number] 10:59:00 10:59:00 [facility] [address] [facility] Medicine Outpati ent Clinics 2019-12-17 2019-12-17 [facility] [id number] 12:00:00 12:30:00 Visit Bernardino Le Joel [id number] [place] [id number] [place] [id number] 2019-11-24 2019-11-24 [facility] [id number] 11:16:00 11:16:00 [facility] l Medicine Outpati ent Clinics 2019-11-24 2019-11-24 [facility] [id number] 11:15:00 11:15:00 [facility] MaxMilhas Litigain s [facility] Medicine Medicine Outpati ent Clinics 2019-11-11 2019-11-11 [facility] [id number] 09:41:00 09:41:00 [facility] l Medicine Outpati ent Clinics 2019-11-10 2019-11-10 [facility] [id number] 10:30:00 10:30:00 [facility] [address] [facility] Medicine l Medicine Outpati ent Clinics 2019-03-27 2019-03-27 Emergency [facility] [id number] 1 Gabriel 11:00:00 11:00:00 Health 2019-03-27 2019-03-27 Emergency [facility] [id number] 3 Gabriel 10:55:25 10:55:25 Health 2019-03-27 2019-03-27 Emergency [facility] [id number] 6 Gabriel 08:02:06 08:02:06 Health 2019-03-27 2019-03-27 Emergency [facility] [id number] 5 [place] 00:00:00 00:00:00 Health Results Test Description Test Time Test Comments Results Result Comments Source PTT - every 6 hours x 24 hours 2019-03-27 18:07:00 Test Item Value Reference Range Interpretation Comme nts PTT (test code = 63498592) 26.6 23.6- 36.4 Seconds The recommended therapuetic ran ge is an APTT 61-103 sec onds which corresponds to 0.3-0.7 anti Xa u/ml. Lab Interpretation (test code Normal = 26344-9) [facility] GLUCOSE POC docked [id number] 16:51:00 Test Item Value Reference Range Interpretation Comments Glucose POC (test code = 73499963) 98 mg/dL 74-106 Lab Interpretation (test code = Normal 98909-3) [facility]-03-27 14:41:00 Test Item Value Reference Range Interpretation Comments CRP, High Sensitivity (Cardiac) 1.0 mg/L <1.0 H (test code = 72675428) Lab Interpretation (test code = Abnormal 15859-4) [facility] [id number] 14:26:00 Test Item Value Reference Range Interpretation Comments Sed Rate (test code = 26993019) 18 0-<20 mm/Hr Lab Interpretation (test code = Normal 75495-1) [facility] [B-Type Natriuretic Peptide]2019-03-27 13:12:00 Test Item Value Reference Range Interpretation Comments B Natriuretic Peptide (BNP) (test 93 pg/mL <=100 code = 39179561) Lab Interpretation (test code = Normal 19399-7) [place] [address] LEAD [id number] 12:48:5612 LEAD EKG FOR [facility] Test Date: [id number] Name: MARCOS RAMOS Department: [id number] ID: [id number] Room: Gender: M Medical Scientific Officer: [id number]: 1960 Requested By: LYSSA Freeman Number: [id number] Jr MD: Audi Betancur M.D. MeasurementsIntervals Leon Rate: 74 P: 37PR: 164 QRS: -28QRSD: 111 T: 11QT: 397 QTc: 442 Interpretive StatementsSINUS RH YTHMBORDERLINE LEFT AXIS DEVIATION [QRS AXIS < -20]MODERATE INTRAVENTRICULAR CONDUCTION DELAY [110+ ms QRS DURATION]MINIMAL VOLTAGE CRITERIA FOR LVH, CONSIDER NORMAL VARIANT [MEETS CRITERIA INONE OF: R(aVL), S(V1), R(V5), R(V5/V6)+S(V1)]Electronically Signed On 03-27-2019 12:48:54 CDT by Audi simmons M.D.[facility] CenterD[facility] DOPPLER LOWER EXTREMITY VENOUS, UNILATERAL OR [id number] 12:24:51IMPRESSION: Occlusive deep venous thrombosis involving the [...] report.Signed By: Gary Sierra MD, 03/27/2019 12:24 [facility] Comprehensive Metabolic [id number] 12:17:00 Test Item Value Reference Range Interpretation Comments Sodium (test code = 2951-2) 140 mmol/L 136-145 Potassium (test code = 2823-3) 4.1 mmol/L 3.5-5.1 Chloride (test code = 2075-0) 104 mmol/L 98-107 CO2 (test code = 20274414) 28 mmol/L 21-31 Glucose (test code = 97716295) 146 mg/dL 70-110 H Calcium (test code = 53543515) 9.1 mg/dL 8.6-10.3 Urea Nitrogen (test code = 25.0 mg/dL 7-25 81769714) Creatinine (test code = 1.0 mg/dL 0.7-1.3 09129778) Alkaline Phosphatase (test 89 U/L 34-104 code = 40038928) ALT (test code = 90949766) 30 U/L 7-52 AST (test code = 64915947) 21 U/L 13-39 Total Protein (test code = 7.3 g/dL 6-8.3 2885-2) GFR, Estimated (test code = 77 >=90 mL/min/1.73 m2 L 81933208) Albumin (test code = 56362-7) 4.0 g/dL 4.2-5.5 L Anion Gap (test code = 8 mmol/L 5-16 77978304) Lab Interpretation (test code Abnormal = 50588-6) [facility] CHEST 2 [id number] 12:02:29IMPRESSION: Mild central pulmonary vascular congestion. No [...] report.Signed By: Gary Sierra MD, 03/27/2019 12:02 [facility] 3 VIEWS [id number] 11:51:43IMPRESSION: Radiographic findings compatible with osteomyelitis of [...] By: Gary Sierra MD, 03/27/2019 11:51 [id number] 11:27:00 Test Item Value Reference Range Interpretation Comments PT (test code = 5902-2) 12.3 11.8- 15.0 Seconds INR (test code = 0.9 Refer to INR 2.0 - 3.0 for moderate 86226338) ranges intensity anticoagulation 2.5 - 3.5 for high in tensity anticoagulation PTT (test code = 25.9 23.6- 36.4 The recomm ended 11307716) Seconds therapuetic ran ge is an APTT 61-103 sec onds which correspon ds to 0.3-0.7 anti Xa u/ml. Lab Interpretation Normal (test code = 76375-0) [facility]/[id number] 11:15:00 Test Item Value Reference Range Interpretation [...] 32.5 g/dL 32-36 RDW (test code = 23976-4) 50.3 fL 35.1-43.9 H Platelet (test code = 777-3) 216 K/uL 150-400 Mean Platelet Volume (test code = 10.2 fL 9.4-12.4 12604-5) Percent NRBC (test code = 73407477) 0.0 % Neutrophil (test code = 770-8) 53.9 % 34-67.9 Lymphs (test code = 736-9) 32.8 % 21.8-50 Monocytes (test code = 5905-5) 11.0 % 5.3-12 Eos (test code = 713-8) 1.5 % 0.8-5 Basos (test code = 706-2) 0.2 % 0.2-1.2 Immature Granulocytes (test code = 0.6 % 0-0.5 H 94089426) Neutrophils (Absolute) (test code = 2.50 K/uL 1.78-5.36 28495450) Lymphs (Absolute) (test code = 1.52 K/uL 1.32-3.57 79018497) Monocytes(Absolute) (test code = 0.51 K/uL 0.3-0.82 12071180) Eos (Absolute) (test code = 0.07 K/uL 0.04-0.54 42499651) Baso (Absolute) (test code = 0.01 K/uL 0.01-0.08 47930993) Immature Grans (Abs) (test code = 0.03 K/uL 0-0.03 35632863) Absolute NRBC (test code = 0.00 K/uL 93094355) Lab Interpretation (test code = Abnormal 71462-9) [facility]
--- OUTSIDE RECORDS SUMMARY | 2020-02-11 21:40 | XMS REPORT ---
[...] J44.9 Active disease, unspecified COPD type Problem long term (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 Z79.4 Active Problem [...]
--- OUTSIDE RECORDS SUMMARY | 2020-02-11 21:40 | XMS REPORT ---
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
--- OUTSIDE RECORDS SUMMARY | 2020-02-11 21:41 | XMS REPORT ---
[...] J44.9 Active disease, unspecified COPD type Problem retirement (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 Z79.4 Active Problem [...]
--- NOTE | 2020-02-11 22:33 | ER ---
Nurse's Notes [facility] Name: Gasper Fry Age: 59 yrs Sex: Male : 1960 Arrival Date: 02/11/2020 Time: 21:40 Bed 5 Private MD: Sylvain Dietrich Diagnosis: Other chronic pain;Other idiopathic peripheral autonomic neuropathy Presentation: 02/10 21:52 Chief complaint: Patient states: Pain to lower legs x 2-3 days; states legs are lp1 swollen; wounds to bilateral feet, being seen by Wound Care. Coronavirus screen: Client denies travel out of the [place] in the last 14 days. At this time, the client does not indicate any symptoms associated with coronavirus-19. Ebola Screen: No symptoms or risks identified at this time. Initial Sepsis Screen: Does the patient meet any 2 criteria? No. Patient's initial sepsis screen is negative. Does the patient have a suspected source of infection? No. Patient's initial sepsis screen is negative. Risk Assessment: Do you want to hurt yourself or someone else? Patient reports no desire to harm self or others. Onset of symptoms was February 11, 2020. 21:52 Method Of Arrival: Wheelchair lp1 21:52 Acuity: DARREL 3 lp1 Historical: - Allergies: 21:54 Haldol (Anaphylaxis); lp1 21:54 Narcan (Anaphylaxis); lp1 - Home Meds: 21:54 Adderall XR 30 mg Oral cp24 1 cap twice a day [Active]; atorvastatin 40 mg Oral tab 1 lp1 tab once daily [Active]; Cogentin Oral 0.5 mg twice a day [Active]; Eliquis 5 mg Oral tab 1 tab 2 times per day [Active]; Glucophage Oral [Active]; hydrocodone-acetaminophen 10-325 mg Oral tab 1 tab twice a day [Active]; Klonopin 0.5 mg Oral tab 1 tab 2 times per day [Active]; losartan 50 mg Oral tab 1 tab once daily [Active]; metoprolol tartrate 50 mg Oral tab 1 tab 2 times per day [Active]; Novolin 70/30 Innolet 45 units Sub-Q 45 units twice a day with meals [Active]; Risperdal 4 mg Oral tab 1 tab 2 times per day [Active]; tramadol 50 mg Oral tab 1 tab twice a day [Active]; Victoza 2-Reid subcutaneous [Active]; - PMHx: 21:54 ADD/ADHD; Anxiety; Bipolar disorder; Cellulitis; Chronic pain; CVA; Diabetes - IDDM; lp1 Hypertension; neuropathy; Seizures; - Immunization history:: Adult Immunizations up to date. - Social history:: Smoking status: Patient reports the use of cigarette tobacco products, denies chronic smoking, but will smoke occasionally. Screenin:48 Abuse screen: Denies threats or abuse. Denies injuries from another. Nutritional mg2 screening: No deficits noted. Tuberculosis screening: No symptoms or risk factors identified. Fall Risk None identified. Assessment: 22:30 General: Appears in no apparent distress. uncomfortable. Pain: Complains of pain in mg2 right leg and left leg Quality of pain is described as aching. 22:30 Neuro: Level of Consciousness is awake, alert, obeys commands, Oriented to person, mg2 place, time, situation. Cardiovascular: Capillary refill < 3 seconds Patient's skin is warm and dry. Respiratory: Airway is patent Respiratory effort is even, unlabored, Respiratory pattern is regular, symmetrical. GI: No signs and/or symptoms were reported involving the gastrointestinal system. : EENT: Derm: diabetic wound in both feet. Musculoskeletal: Circulation, motion, and sensation intact. Capillary refill < 3 seconds. Vital Signs: 21:52 BP 186 / 95; Pulse 90; Resp 18; Temp 98.2(TE); Pulse Ox 100% ; Weight 102.06 kg (R); lp1 Height 6 ft. 0 in. (182.88 cm); Pain 10/10; 21:52 Body Mass Index 30.52 (102.06 kg, 182.88 cm) lp1 ED Course: 21:40 Patient arrived in ED. am2 21:41 Sylvain Dietrich DO is Private Physician. am2 21:53 Triage completed. lp1 21:53 Arm band placed on right wrist. lp1 22:14 Mehul Ponce, MALU is Primary Nurse. mg2 22:15 Adrián Ahumada MD is Attending Physician. tw4 22:30 Patient has correct armband on for positive identification. Door closed. Warm blanket mg2 given. 22:32 Sylvain Dietrich DO is Referral Physician. tw4 22:48 No provider procedures requiring assistance completed. Patient did not have IV access mg2 during this emergency room visit. Administered Medications: 22:44 Not Given (Patient Refused): traMADol 50 mg PO once; RASS on ADMIN: Combtv4, Very mg2 Agttd3, Agttd2, Rstlss1, AlertClm0, Drwsy-1, Lt Sdtn-2, Mod Sdtn-3, Dp Sdtn-4, UnArsble-5 Outcome: 22:33 Discharge ordered by . denisse 22:50 Discharged to home via wheelchair. mg2 22:50 Condition: stable 22:50 Discharge instructions given to patient, Instructed on discharge instructions, follow up and referral plans. medication usage, Demonstrated understanding of instructions, follow-up care, medications, Prescriptions given X 1. 22:50 Patient left the ED. mg2 Signatures: Barbara Conway, RN RN lp1 Pat Kendall am2 Adrián Ahumada MD MD tw4 Mehul Ponce RN RN mg2
[2020-02-11] MEDS ORDERED: TRAMADOL HCL 50 MG TAB ONE (22:49)
--- NOTE | 2020-02-13 02:59 | EDPHYS ---
Physician Documentation [facility] Name: Gasper Fry Age: 59 yrs Sex: Male : 1960 Arrival Date: 02/11/2020 Time: 21:40 Bed 5 Private MD: Sylvain Dietrich ED Physician Adrián Ahumada HPI: 02/11 04:56 This 59 yrs old Male presents to ER via Wheelchair with complaints of Leg tw4 Swelling, Feet Swelling. 04:56 The patient presents with pain, that is chronic. The complaints affect the lateral tw4 aspect of left calf, lateral aspect of left foot, left calf, left heel, medial aspect of left calf, medial aspect of left foot, left kaiser and dorsum of left foot, lateral aspect of right calf, lateral aspect of right foot, right calf, right heel, medial aspect of right calf, medial aspect of right foot, right kaiser and dorsum of right foot. Context: The problem was sustained at home. Onset: The symptoms/episode began/occurred today. Modifying factors: The symptoms are alleviated by nothing. the symptoms are aggravated by nothing. Severity of symptoms: At their worst the symptoms were moderate, in the emergency department the symptoms are unchanged. The patient has not experienced similar symptoms in the past. Historical: - Allergies: 02/10 21:54 Haldol (Anaphylaxis); lp1 21:54 Narcan (Anaphylaxis); lp1 - Home Meds: 21:54 Adderall XR 30 mg Oral cp24 1 cap twice a day [Active]; atorvastatin 40 mg Oral tab 1 lp1 tab once daily [Active]; Cogentin Oral 0.5 mg twice a day [Active]; Eliquis 5 mg Oral tab 1 tab 2 times per day [Active]; Glucophage Oral [Active]; hydrocodone-acetaminophen 10-325 mg Oral tab 1 tab twice a day [Active]; Klonopin 0.5 mg Oral tab 1 tab 2 times per day [Active]; losartan 50 mg Oral tab 1 tab once daily [Active]; metoprolol tartrate 50 mg Oral tab 1 tab 2 times per day [Active]; Novolin 70/30 Innolet 45 units Sub-Q 45 units twice a day with meals [Active]; Risperdal 4 mg Oral tab 1 tab 2 times per day [Active]; tramadol 50 mg Oral tab 1 tab twice a day [Active]; Victoza 2-Reid subcutaneous [Active]; - PMHx: 21:54 ADD/ADHD; Anxiety; Bipolar disorder; Cellulitis; Chronic pain; CVA; Diabetes - IDDM; lp1 Hypertension; neuropathy; Seizures; - Immunization history:: Adult Immunizations up to date. - Social history:: Smoking status: Patient reports the use of cigarette tobacco products, denies chronic smoking, but will smoke occasionally. ROS: 02/11 04:56 Constitutional: Negative for fever, chills, and weight loss, Eyes: Negative for injury, tw4 pain, redness, and discharge, Cardiovascular: Negative for chest pain, palpitations, and edema, Respiratory: Negative for shortness of breath, cough, wheezing, and pleuritic chest pain, Abdomen/GI: Negative for abdominal pain, nausea, vomiting, diarrhea, and constipation, Back: Negative for injury and pain, Skin: Negative for injury, rash, and discoloration, Neuro: Negative for headache, weakness, numbness, tingling, and seizure. MS/extremity: Positive for pain, swelling, tenderness. Exam: 04:56 Constitutional: This is a well developed, well nourished patient who is awake, alert, tw4 and in no acute distress. Head/Face: Normocephalic, atraumatic. Chest/axilla: Normal chest wall appearance and motion. Nontender with no deformity. No lesions are appreciated. Cardiovascular: Regular rate and rhythm with a normal S1 and S2. No gallops, murmurs, or rubs. Normal PMI, no JVD. No pulse deficits. Respiratory: Lungs have equal breath sounds bilaterally, clear to auscultation and percussion. No rales, rhonchi or wheezes noted. No increased work of breathing, no retractions or nasal flaring. Abdomen/GI: Soft, non-tender, with normal bowel sounds. No distension or tympany. No guarding or rebound. No evidence of tenderness throughout. Back: No spinal tenderness. No costovertebral tenderness. Full range of motion. Skin: Warm, dry with normal turgor. Normal color with no rashes, no lesions, and no evidence of cellulitis. Neuro: Awake and alert, GCS 15, oriented to person, place, time, and situation. Cranial nerves II-XII grossly intact. Motor strength 5/5 in all extremities. Sensory grossly intact. Cerebellar exam normal. Normal gait. 04:56 Musculoskeletal/extremity: Extremities: noted in the right leg: pain, swelling, tenderness, noted in the left leg: pain, swelling, tenderness. Vital Signs: 02/10 21:52 BP 186 / 95; Pulse 90; Resp 18; Temp 98.2(TE); Pulse Ox 100% ; Weight 102.06 kg (R); lp1 Height 6 ft. 0 in. (182.88 cm); Pain 10/10; 21:52 Body Mass Index 30.52 (102.06 kg, 182.88 cm) lp1 MDM: 22:16 Patient medically screened. tw4 02/11 04:59 Differential diagnosis: contusion, abrasion, tendonitis. Data reviewed: vital signs, tw4 nurses notes. Data interpreted: Pulse oximetry: Interpretation: normal. Counseling: I had a detailed discussion with the patient and/or guardian regarding: the historical points, exam findings, and any diagnostic results supporting the discharge/admit diagnosis. Medication response: tramadol. Response to treatment: the patient's symptoms have mildly improved after treatment, and as a result, I will discharge patient. Special discussion: I discussed with the patient/guardian in detail that at this point there is no indication for admission to the hospital. It is understood, however, that if the symptoms persist or worsen the patient needs to return immediately for re-evaluation. Administered Medications: 02/10 22:44 Not Given (Patient Refused): traMADol 50 mg PO once; RASS on ADMIN: Combtv4, Very mg2 Agttd3, Agttd2, Rstlss1, AlertClm0, Drwsy-1, Lt Sdtn-2, Mod Sdtn-3, Dp Sdtn-4, UnArsble-5 Disposition: 02/11/20 22:33 Discharged to Home. Impression: Other chronic pain, Other idiopathic peripheral autonomic neuropathy. - Condition is Stable. - Discharge Instructions: Chronic Pain, Neuropathic Pain, Diabetic Neuropathy. - Prescriptions for Tramadol 50 mg Oral Tablet - take 1 tablet by ORAL route every 8 hours as needed; 10 tablet. - Medication Reconciliation Form, Thank You Letter, Antibiotic Education, Prescription Opioid Use form. - Follow up: Sylvain Dietrich DO; When: Upon discharge from the Emergency Department; Reason: Recheck today's complaints, Continuance of care, Re-evaluation by your physician. Follow up: Private Physician; When: Upon discharge from the Emergency Department; Reason: Recheck today's complaints, Continuance of care, Re-evaluation by your physician. - Problem is an ongoing problem. - Symptoms have improved. Signatures: Barbara Conway RN RN lp1 Adrián Ahumada MD MD tw4 Mehul Ponce RN RN mg2 Corrections: (The following items were deleted from the chart) 22:50 22:33 02/11/2020 22:33 Discharged to Home. Impression: Other chronic pain; Other mg2 idiopathic peripheral autonomic neuropathy. Condition is Stable. Forms are Medication Reconciliation Form, Thank You Letter, Antibiotic Education, Prescription Opioid Use. Follow up: Sylvain Dietrich; When: Upon discharge from the Emergency Department; Reason: Recheck today's complaints, Continuance of care, Re-evaluation by your physician. Follow up: Private Physician; When: Upon discharge from the Emergency Department; Reason: Recheck today's complaints, Continuance of care, Re-evaluation by your physician. Problem is an ongoing problem. Symptoms have improved. tw4
[2020-02-13 04:48] VITALS: BP 186/95; TEMP 98.2; O2SAT 100
== END 2020-02-11 22:50 | disposition home or self-care (01) ==
LOC: ER 21:36
DX: G90.09 Other idiopathic peripheral autonomic neuropathy (principal); I10 Essential (primary) hypertension; F31.9 Bipolar disorder, unspecified; G40.909 Epilepsy, unspecified, not intractable, without status epilepticus; E11.9 Type 2 diabetes mellitus without complications; Z79.4 Long term (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; Z79.01 Long term (current) use of anticoagulants; Z88.5 Allergy status to narcotic agent
CPT/HCPCS: 99282

== ENCOUNTER 2020-02-21 10:42 | Emergency (ER) | payer OTHER ==
--- OUTSIDE RECORDS SUMMARY | 2020-02-21 10:44 | XMS REPORT | Clinical Summary ---
:[address] [facility] Distr ict Address [facility] [place] [address] Care Team Providers Name Role Phone Unavailable [...] foot, unspecified type; Poorly-controll ed hypertension after 02/20/2019 Social History Tobacco Use Types Packs/Day Years [...] are i n the results section. after 02/20/2019 Results PTT - every 6 hours x 24 hours (03/27/2019 5:34 PM CDT) PTT 26.6 23.6 - 36.4 [facility] Comment: Seconds The recommended therapuetic range is an APTT 61-103 seconds which corresponds to 0.3-0.7 anti Xa u/ml. Specimen Blood Performing Organization Address [facility] Phone Number [facility] [address] [place] [address] POCT GLUCOSE POC docked device (03/27/2019 4:50 PM CDT) Pathologist Sig [facility] Glucose POC 98 74 - 106 mg/dL [facility] Specimen Blood Performing Organization Address [facility] Phone Number [facility] [address] [place] [address] [phone] CRP (High Sensitivity) (03/27/2019 1:29 PM CDT) Pathologist Sig nature CRP, High Sensitivity 1.0 (H) <1.0 mg/L [facility] (Cardiac) Specimen Blood Performing Organization Address [facility] Phone Number [facility] [address] [place] [address] SED Rate (03/27/2019 1:29 PM CDT) Pathologist Sig [facility] Sed Rate 18 0-<20 mm/Hr [facility] Specimen Blood Performing Organization Address [facility] Phone Number [facility] [address] [place] [address] [phone] DUPLEX DOPPLER LOWER EXTREMITY VENOUS, UNILATERAL [...] PM Performing Organization Address City/State/Zipcode Phone Number [facility] XRAY CHEST 2 VIEWS (03/27/2019 11:15 AM [...] Performed At EXAMINATION: XRAY CHEST 2 VIEWS [facility] INDICATION: shortness of breath, lower e xtremity [...] PM Performing Organization Address City/State/Zipcode Phone Number [facility] XRAY FOOT 3 VIEWS MIN (03/27/2019 11:15 [...] At EXAMINATION: XRAY FOOT 3 VIEWS MIN [facility] SIDE: Left INDICATION: L foot wound COMPARISON: [...] AM Performing Organization Address City/State/Zipcode Phone Number [facility] 12 LEAD EKG (03/27/2019 10:54 AM CDT) 12 LEAD EKG FOR [facility] Test Date: 2019-03-27 Pat Name: MARCOS FRY Depart ent: [id number] Room: Gender: M 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 Measu rements Intervals [place] Rate: 74 P: 37 ID: [id number] QRS: -28 QRSD: 111 T: 11 [...] Daniela Betancur M.D. Specimen Performing Organization Address City/[facility]/Zipcode Phone Number [facility] PT/INR/PTT (03/27/2019 10:52 AM CDT) PT 12.3 [...] Xa u/ml. Specimen Blood Performing Organization Address [facility] Phone Number [facility] [address] [place] [address] [phone] CBC/Diff (03/27/2019 10:51 AM CDT) WBC [...] [facility] Specimen Blood Performing Organization Address [facility] Phone Number [facility] [address] [place] [address] [phone] Comprehensive Metabolic Panel (03/27/2019 10:51 AM CDT) [facility] Sodium 140 136 - 145 [facility] [...] [facility] Specimen Blood Performing Organization Address [facility] Phone Number [facility] [address] [place] [address] BNP [B-Type Natriuretic Peptide] (03/27/2019 10:51 AM CDT) Pathologist Sig nature B Natriuretic Peptide 93 <=100 pg/mL [facility] (BNP) Specimen Blood Performing Organization Address City/State/Zipcode Phone Number [facility] [address] [place] [address] after 02/20/2019 Insurance Payer Benefit Plan / Subscriber ID Effective Dates Phone Addre ss Type Group MEDICARE MEDICARE PART xxxxxxxxxxx 2004-Janis [id number] [place] [address] [place] MED[place] [id number] MQMB SSI xxxxxxxxx 2013-Nadira [id number] [place] [address]
--- OUTSIDE RECORDS SUMMARY | 2020-02-21 10:45 | XMS REPORT | Continuity of Care Document ---
:1960 Author Organization [facility] t Address [address] [place] [address] Care Team Providers Name Role Phone Kana Alcantara Attending Clinician Sari VALENCIA Attending Clinician Doctor Unassigned, Name Attending Clinician Unavailable Corine VALENCIA, H Attending Clinician Perry VALENCIA, R Attending Clinician Dorcas VALENCIA, K Attending Clinician Sari VALENCIA Admitting Clinician Payers Payer Name Policy Type Policy Number Effective Date Expiration Date S [facility] MEDICAREMEDIC[place] PART xxxxxxxxxxx 2004 [place] A & 00:00:00 Health Bxxxxxxxxxxx2004- [phone], [place] [address] [place] [id number] xxxxxxxxx 2013 [facility] SSI 00:00:00 Health [id number] [address], [place] [address] Problems Condition Condition Condition Status Onset Resolution Last Treating Co mments Source Name Details Category Date Date Treatment Clinician Date Unspecifie Unspecifie Disease Active Overview : MD d Delirium d Delirium 16 psych An derso 00:00: team on n 00 board O/E - Left O/E - Left Disease Active M D diabetic diabetic 12-22 Lee o foot - foot - 00:00: n ulcerated ulcerated 00 Chronic Chronic Disease Active pain of pain of 12-22 Anderso left foot left foot 00:00: n 00 History of History of Disease Active M D amputation amputation 12-22 An derso of left of left 00:00: [...] Hyperglyce Disease Active M D dante dante 1-08 Anderso 00:00: n 00 History of History of Problem Active [facility] 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 Memori a deficit deficit [facility] 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 [facility] (current) (current[facility] Luke s - use of use of Memoria insulin insulin [facility] Chronic Chronic Problem Active [facility] pain pain [facility] History of History of Problem Active [facility] pulmonary pulmonary Luke s - embolism embolism Memori a [facility] Bipolar Bipolar Problem Active [facility] affective affective Luke s - disorder, disorder, Joe cristina currently currently l depressed, depressed, Ou tpati moderate moderate ent Clinics Seizures Seizures Problem Active [facility] Generalize Generalize Problem Active [facility] d anxiety d anxiety Luke s - disorder disorder Memori a [facility] Tobacco Tobacco Problem Active [facility] use use [facility] - disorder disorder Memori a [facility] 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[facility] 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 Me moria [facility] Attention Attention Problem Active [facility] deficit [...] Date Quantity Comments Source Sex Assigned At Rios Len alth Alcohol intake 2019-03-27 2019-03-27 Ex-drinker Gabriel Hyde [facility] 00:00:00 00:00:00 (finding) Tobacco use and 2018-12-25 2018-12-25 Current user MD Elio forbes exposure 00:00:00 00:00:00 Smoking Status Start Date Stop Date Source Former smoker 2019-03-27 00:00:00 2019-03-27 00:00:00 Gabriel dickey Current some day smoker 2018-12-25 00:00:00 MD Ravin spencer Medications Ordered Filled Start Stop Current Ordering Indication Dosage Frequency Signature Comments Components Source Medication Medication Date Date Medication? Clinician (SIG) Name Name stanley Yes Chronic Apply MD iodine 7-20 pain of topically Vj so (IODOSORB) 00:00: right foot to n 0.9% gel 00 affected area(s) every other day. benztropine Yes .5mg Take 0.5 MD (COGENTIN) 7-19 mg by Anderso 0.5 mg 15:59: mouth n tablet 33 twice daily. HYDROcodone Yes 1{tbl} Take 1 MD -acetaminop 7-19 [...] Yes Chronic 500mg Take 1 MD ol 7 pain tablet Anderso (ROBAXIN) 00:00: (500 mg) n 500 mg 00 by mouth tablet every 8 (eight) hours. Victoza Victoza Yes Sylvain Inject 1.[address] Dietrich mg/day [facility] Albuterol Albuterol Yes Sylvain [address] [facility] Sulfate HFA Sulfate HFA Dietrich needed [facility] Duloxetine Duloxetine Yes Sylvain [address] HCl HCl Dietrich [facility] Clonazepam Clonazepam Yes Sylvain [address] [facility] Dietrich at bedtime [facility] NovoLIN NovoLIN Yes Sylvain Inject [address] 70/30 70/30 Dietrich units [facility] - FlexPen FlexPen Memoria l [facility] Tramadol Tramadol Yes Sylvain [address] HCl HCl Dietrich as needed [facility] Hydrocodone Hydrocodone Yes Sylvain [address] -Acetaminop -Acetaminop Dietrich as needed [facility] - hen hen Memoria l [facility] Eliquis Eliquis Yes Sylvain TAKE 1 [facility] Dietrich TABLET BY [facility] - MOUTH Memoria TWICE l DAILY [facility] Benztropine Benztropine Yes Sylvain 1 [...] HCl HCl Dietrich [facility] Pen [place] Pen [place] Yes Sylvain N/s [facility] Dietrich [facility] Atorvastati Atorvastati Yes Sylvain [address] n Calcium n Calcium Dietrich Luke s - Memoria l [facility] Advair Advair Yes Sylvain [address] Diskus Diskus Dietrich [facility] True Metrix True Metrix Yes Sylvain USE TO [facility] Blood Blood Dietrich TEST BLOOD [facility]ukes - Glucose Glucose SUGAR 1-2 Joe cristina Test Test TIMES l EVERY DAY [facility] NovoLIN NovoLIN Yes Sylvain INJECT [facility] t 70/30 70/30 Dietrich SUBQUTANEO [facility]ukes - FlexPen FlexPen USLY 65 Memori a UNITS l TWICE Outpati DAILY ent Clinics UltiCare UltiCare Yes Sylvain USE ONE [facility] Micro Pen Micro Pen Dietrich NEEDLE Rita kes - [place] THREE Memoria TIMES l DAILY WITH [facility] VICTOZA ent AND Clinics NOVOLIN FLEXPEN Vital Signs Vital Name Observation Time Observation Value Comments Source Body height 2019-03-27 17:51:00 182.9 cm Gabriel [facility] Body weight 2019-03-27 14:22:00 99.791 kg [facility] BMI 2019-03-27 14:22:00 29.84 kg/m2 [facility] Systolic blood 2019-03-27 13:16:00 180 mm[Hg] yesica [facility] pressure Diastolic blood 2019-03-27 13:16:00 94 mm[Hg] yesica aware [facility] pressure Heart rate 2019-03-27 13:16:00 74 /min [facility] Respiratory rate 2019-03-27 13:16:00 17 /min [facility] Oxygen saturation in 2019-03-27 13:16:00 100 /min [facility] Arterial blood by Pulse oximetry Body temperature 2019-03-27 11:00:00 36.56 Cece [facility] Procedures Procedure Date / Time Performed Performing Clinician Sourc e PTT 2019-03-27 17:34:00 Leyla Beckett [facility] GLUCOSE POC 2019-03-27 16:50:00 [facility] SED RATE 2019-03-27 13:29:00 Lyssa [facility] C-REACTIVE PROTEIN HIGH 2019-03-27 13:29:00 Lyssa Lozano [facility] SENSITIVITY (CARDIAC) DUPLEX DOPPLER LOWER 2019-03-27 12:02:47 Paul Stone [facility] EXTREMITY VENOUS, UNILATERAL OR LIMITED XRAY FOOT 3 VIEWS MIN 2019-03-27 11:15:07 [facility]IEWS 2019-03-27 11:15:07 Lyssa Lozano ealt 12 LEAD EKG 2019-03-27 10:54:22 Lyssa [facility] PT/INR/PTT 2019-03-27 10:52:00 Lyssa [facility] CBC/DIFF 2019-03-27 10:51:00 Lyssa L[facility] B-TYPE NATRIURETIC PEPTIDE 2019-03-27 10:51:[address] [facility] (BNP) COMPREHENSIVE METABOLIC 2019-03-27 10:51:00 Lyssa Lozano [facility] PANEL CBC 2019-03-27 10:51:00 Lyssa [facility] Plan of Care Planned Activity Planned Date Details Comments Source Future Scheduled Test 2020-03-09 00:00:00 IMM Influenza [facility] Seasonal Mar to August (>/= 19 yrs) [code = IMM Influenza Seasonal Mar to August (>/= 19 yrs)] Future Scheduled Test 2011 00:00:00 Screening for [facility] malignant neoplasm of colon (procedure) [code = 463759319] Encounters Start End Encounter Admission Attending Care Care Encounter Source Date/Time Date/Time Type Type Clinicians Facility Department ID 2020-02-13 2020-02-18 [facility] Yazmin Gillette [facility] [id number] 17:07:00 18:00:00 Encounter Avis Guo [id number] [place] [id number] [place] [id number] 2020-02-13 2020-02-13 Orders Doctor CHEW [id number] 00:00:00 00:00:00 Only UnassignedMARIELOS [id number] [place] [id number] 2020-01-28 2020-01-28 [facility] [id number] [facility] 08:27:00 08:27:00 [facility] Medicine Medicine Outpati ent Clinics 2020-01-26 2020-01-26 [facility] [id number] [facility] 11:04:00 11:04:00 t [facility] Medicine l Medicine Outpati ent Clinics 2020-01-05 2020-01-05 [facility] [id number] [address] 16:30:00 16:30:00 [facility] Medicine l Medicine Outpati ent Clinics 2020-01-03 2020-01-03 [facility] [id number] 10:59:00 10:59:00 [employer] [facility] [facility] Medicine Outpati ent Clinics 2019-12-17 2019-12-17 [id number] 12:00:00 12:30:00 Visit Bernardino Lujan Joel [id number] [place] [id number] [facility] [id number] [address] 2019-11-24 2019-11-24 [facility] [id number] 11:16:00 11:16:00 [facility] [employer] [facility] Medicine Outpati ent Clinics 2019-11-24 2019-11-24 [facility] [id number] 11:15:00 11:15:[address] Luke s - [facility] l Medicine Outpati ent Clinics 2019-11-11 2019-11-11 [facility] [id number] 09:41:00 09:41:00 t [facility] Road Luke s - Road [facility] l Medicine Outpati ent Clinics 2019-11-10 2019-11-10 [facility] [id number] 10:30:00 10:30:00 t [employer] s - Drive [facility] l Medicine Outpati ent Clinics 2019-03-27 2019-03-27 Emergency [facility] [id number] [place] 11:00:00 11:00:00 [facility] 2019-03-27 2019-03-27 Emergency [facility] [id number] [place] 10:55:25 10:55:25 Health 2019-03-27 2019-03-27 Emergency [facility] [id number] [place] 08:02:06 08:02:06 [facility] 2019-03-27 2019-03-27 Emergency [facility] [id number] [place] 00:00:00 00:00:00 Health Results Test Description Test Time Test Comments Results Result Comments Source PTT - every 6 hours x 24 hours 2019-03-27 18:07:00 Test Item Value Reference Range Interpretation Comme nts PTT (test code = 94288793) 26.6 23.6- 36.4 Seconds The recommended therapuetic ran ge is an APTT 61-103 sec onds which corresponds to 0.3-0.7 anti Xa u/ml. Lab Interpretation (test code Normal = 08537-8) [facility] GLUCOSE POC docked [id number] 16:51:00 Test Item Value Reference Range Interpretation Comments Glucose POC (test code = 73444722) 98 mg/dL 74-106 Lab Interpretation (test code = Normal 33472-0) [facility]2019-03-27 14:41:00 Test Item Value Reference Range Interpretation Comments CRP, High Sensitivity (Cardiac) 1.0 mg/L <1.0 H (test code = 70607735) Lab Interpretation (test code = Abnormal 06564-3) [facility] [id number] 14:26:00 Test Item Value Reference Range Interpretation Comments Sed Rate (test code = 50536977) 18 0-<20 mm/Hr Lab Interpretation (test code = Normal 40293-8) [facility] [B-Type Natriuretic Peptide]2019-03-27 13:12:00 Test Item Value Reference Range Interpretation Comments B Natriuretic Peptide (BNP) (test 93 pg/mL <=100 code = 62538369) Lab Interpretation (test code = Normal 22206-0) [place] [address] LEAD [id number] 12:48:5612 LEAD EKG FOR [facility] Test Date: [id number] Name: MARCOS RAMOS Department: [id number] ID: [id number] Room: 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 MeasurementsIntervals [place] Rate: 74 P: 37PR: 164 QRS: -28QRSD: 111 T: 11QT: 397 QTc: 442 Interpretive StatementsSINUS RH YTHMBORDERLINE LEFT AXIS DEVIATION [QRS AXIS < -20]MODERATE INTRAVENTRICULAR CONDUCTION DELAY [110+ ms QRS DURATION]MINIMAL VOLTAGE CRITERIA FOR LVH, CONSIDER NORMAL VARIANT [MEETS CRITERIA INONE OF: R(aVL), S(V1), R(V5), R(V5/V6)+S(V1)]Electronically Signed On 03-27-2019 12:48:54 CDT by Audi simmons M.D.[facility] DOPPLER LOWER EXTREMITY VENOUS, UNILATERAL OR [id number] 12:24:51IMPRESSION: Occlusive deep venous thrombosis involving the [...] report.Signed By: Gary Sierra MD, 03/27/2019 12:24 [facility] Comprehensive Metabolic [id number] 12:17:00 Test Item Value Reference Range Interpretation Comments Sodium (test code = 2951-2) 140 mmol/L 136-145 Potassium (test code = 2823-3) 4.1 mmol/L 3.5-5.1 Chloride (test code = 2075-0) 104 mmol/L 98-107 CO2 (test code = 30027658) 28 mmol/L 21-31 Glucose (test code = 01452931) 146 mg/dL 70-110 H Calcium (test code = 67188127) 9.1 mg/dL 8.6-10.3 Urea Nitrogen (test code = 25.0 mg/dL 7-25 17468166) Creatinine (test code = 1.0 mg/dL 0.7-1.3 26670493) Alkaline Phosphatase (test 89 U/L 34-104 code = 35332536) ALT (test code = 53819773) 30 U/L 7-52 AST (test code = 35405942) 21 U/L 13-39 Total Protein (test code = 7.3 g/dL 6-8.3 2885-2) GFR, Estimated (test code = 77 >=90 mL/min/1.73 m2 L 22545614) Albumin (test code = 12022-1) 4.0 g/dL 4.2-5.5 L Anion Gap (test code = 8 mmol/L 5-16 70181450) Lab Interpretation (test code Abnormal = 16214-3) [facility] CHEST 2 [id number] 12:02:29IMPRESSION: Mild central pulmonary vascular congestion. No [...] report.Signed By: Gary Sierra MD, 03/27/2019 12:02 PMHarris HealthXRAY FOOT 3 VIEWS [id number] 11:51:43IMPRESSION: Radiographic findings compatible with osteomyelitis of [...] report.Signed By: Gary Sierra MD, 03/27/2019 11:51 [facility] HealthPT/INR/[id number] 11:27:00 Test Item Value Reference Range Interpretation Comments PT (test code = 5902-2) 12.3 11.8- 15.0 Seconds INR (test code = 0.9 Refer to INR 2.0 - 3.0 for moderate 15060130) ranges intensity anticoagulation 2.5 - 3.5 for high in tensity anticoagulation PTT (test code = 25.9 23.6- 36.4 The recomm ended 68177745) Seconds therapuetic ran ge is an APTT 61-103 sec onds which correspon ds to 0.3-0.7 anti Xa u/ml. Lab Interpretation Normal (test code = 09128-3) [facility]/[id number] 11:15:00 Test Item Value Reference Range Interpretation [...] 32.5 g/dL 32-36 RDW (test code = 68644-9) 50.3 fL 35.1-43.9 H Platelet (test code = 777-3) 216 K/uL 150-400 Mean Platelet Volume (test code = 10.2 fL 9.4-12.4 80236-9) Percent NRBC (test code = 69885387) 0.0 % Neutrophil (test code = 770-8) 53.9 % 34-67.9 Lymphs (test code = 736-9) 32.8 % 21.8-50 Monocytes (test code = 5905-5) 11.0 % 5.3-12 Eos (test code = 713-8) 1.5 % 0.8-5 Basos (test code = 706-2) 0.2 % 0.2-1.2 Immature Granulocytes (test code = 0.6 % 0-0.5 H 11901104) Neutrophils (Absolute) (test code = 2.50 K/uL 1.78-5.36 51977088) Lymphs (Absolute) (test code = 1.52 K/uL 1.32-3.57 51873257) Monocytes(Absolute) (test code = 0.51 K/uL 0.3-0.82 41764695) Eos (Absolute) (test code = 0.07 K/uL 0.04-0.54 18196203) Baso (Absolute) (test code = 0.01 K/uL 0.01-0.08 37071997) Immature Grans (Abs) (test code = 0.03 K/uL 0-0.03 32121155) Absolute NRBC (test code = 0.00 K/uL 33936079) Lab Interpretation (test code = Abnormal 65522-8) [facility]
--- OUTSIDE RECORDS SUMMARY | 2020-02-21 10:45 | XMS REPORT ---
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 Problem Seizures R56.9 Active Assessment History of CVA with residual I69.30 Active deficit Problem Generalized anxiety disorder F41.1 Active Problem Mixed hyperlipidemia E78.2 Active Problem Chronic pain syndrome G89.4 Active Medications Medication Code Code Instructions Start End Status Dosage System Date Date Hydrocodone-Acet [facility] 72253609821 10-325 MG Active 1 tablet aminophen Orally every 6 as need ed hrs Clonazepam [facility] 04799493504 0.5 MG Orally Active 1 t ablet Once a day at bedtime Duloxetine HCl [facility] 20734263975 60 MG Orally Active 1 capsule Once a day Pen Browning [facility] 00496990480 32G x 4 mm 6" Active N/s n/s once a day True Metrix [facility] 16545332892 - Active USE TO Blood Glucose TEST BLOOD Test SUGAR 1-2 TIMES EVERY DAY Albuterol [facility] 20094198332 108 (90 Base) Active 1 pu ff as Sulfate HFA MCG/ACT needed Inhalation every 4 hrs Atorvastatin [facility] 07045517996 40 MG Orally Active 1 tablet Calcium Once a day Benztropine [facility] 26517360514 0.5 MG Orally Active 1 tablet Mesylate Once a day at bedtime Victoza [facility] 66426457506 18 MG/3ML Active Inject 1.8 Subcutaneous mg/day Once a day NovoLIN 70/30 [facility] 46934556303 (70-30) 100 Active In ject 65 FlexPen UNIT/ML units Subcutaneous BID BusPIRone HCl [facility] 26164428448 10 MG Orally Active 1 tablet Twice a day Tramadol HCl [facility] 65444713097 50 MG Orally Active 1 tablet Once a day as needed Advair Diskus [facility] 19959443956 250-50 MCG/DOSE Active 1 puff Inhalation Twice a day Divalproex [facility] 36917393465 500 MG Orally Active 1 t ablet Sodium ER Once a day Eliquis [facility] 91418791451 5 MG Active TAKE 1 TABLET BY MOUTH TWICE DAILY Losartan [facility] 46844779239 50 MG Orally Active 1 tabl et Potassium Once a day Amphetamine-Dext [facility] 34956119026 30 MG Orally Active 1 tablet roamphetamine Twice a day Risperidone [facility] 32411803427 4 MG Orally Active 1 ta blet Once a day Metoprolol [facility] 02995112051 50 MG Orally Active 1 ta blet Tartrate Twice a day with food Results No Known Results Summary Purpose eClinicalWorks Submission
--- OUTSIDE RECORDS SUMMARY | 2020-02-21 10:45 | XMS REPORT ---
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
--- OUTSIDE RECORDS SUMMARY | 2020-02-21 10:46 | XMS REPORT ---
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
--- OUTSIDE RECORDS SUMMARY | 2020-02-21 10:46 | XMS REPORT ---
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 Active Assessment Lower urinary tract symptoms R39.9 Active Problem Seizures R56.9 Active Assessment History of CVA with residual I69.30 Active deficit Problem Generalized anxiety disorder F41.1 Active Problem Mixed hyperlipidemia E78.2 Active Problem Chronic pain syndrome G89.4 Active Medications Medication Code Code Instructions Start End Status Dosage System Date Date Albuterol [facility] 19056826348 108 (90 Base) Active 1 pu ff as needed Sulfate HFA MCG/ACT Inhalation every 4 hrs Clonazepam ND 69762057709 0.5 MG Orally Active 1 t ablet at Once a day bedtime Divalproex ND 79933361341 500 MG Orally Active 1 t ablet Sodium ER Once a day BusPIRone HCl ND 23748470416 10 MG Orally Active 1 tablet Twice a day Metoprolol ND 81757706611 50 MG Orally Active 1 ta blet with Tartrate Twice a day food NovoLIN 70/30 ND 33215047996 () 100 Active IN JECT FlexPen UNIT/ML SUBQUTANEOUSLY 65 UNITS TWICE DAILY Victoza ND 83867926500 18 MG/3ML Active Inject 1.8 Subcutaneous mg/day Once a day Advair Diskus [facility] 24733205808 250-50 Active 1 puff MCG/DOSE Inhalation Twice a day Hydrocodone-Misael ND 06268641414 10-325 MG Active 1 tablet as taminophen Orally every 6 needed hrs Benztropine ND 03131628643 0.5 MG Orally Active 1 tablet at Mesylate Once a day bedtime Eliquis [facility] 96724653062 5 MG Active TAKE 1 TABLE T BY MOUTH TWICE DAILY UltiCare Micro ND 26314077308 32G X 4 MM Active US E ONE NEEDLE Pen [place] THREE TIMES DAILY WITH VICTOZA AND NOVOLIN FLEXPEN True Metrix [facility] 72867232357 - Active USE TO T EST Blood Glucose BLOOD SUGA R 1-2 Test TIMES EVERY DAY NovoLIN 70/30 ND 05559639212 () 100 Active In ject 65 units FlexPen UNIT/ML Subcutaneous BID Risperidone ND 56850217642 4 MG Orally Active 1 ta blet Once a day Amphetamine-Dex [facility] 68053694735 30 MG Orally Active 1 tablet troamphetamine Twice a day Tramadol HCl [facility] 41618179631 50 MG Orally Active 1 tablet as Once a day needed Pen [place] [facility] 72932340048 32G x 4 mm Active N/s /6" n/s once a day Losartan [facility] 47538305153 50 MG Orally Active 1 tabl et Potassium Once a day Duloxetine HCl [facility] 31357694706 60 MG Orally Active 1 capsule Once a day Atorvastatin [facility] 00942948627 40 MG Orally Active 1 tablet Calcium Once a day Results No Known Results Summary Purpose eClinicalWorks Submission
--- OUTSIDE RECORDS SUMMARY | 2020-02-21 10:47 | XMS REPORT ---
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
--- OUTSIDE RECORDS SUMMARY | 2020-02-21 10:47 | XMS REPORT | Summary of Care ---
:1960 Author Organization [facility] - Health Address [address] [place] [address] Care Team Providers Name Role Phone Sylvain Dietrich Primary Care Provider Encounter Details Date Type Department Care Team Description 02/13/2020 Orders Only [facility] Doctor Unassigned, No [address] [facility] [place] [address] [address] [place] [address] Allergies No Known Allergiesdocumented as of this encounter (statuses as of 02/13/2020) Medications Medication Sig Dispensed Refills Start Date [...] as of this encounter (statuses as of 02/13/2020) Active Problems Problem Noted Date Altered mental state 08/11/2017 Hyperglycemia 06/16/2017 Bipolar I disorder, most recent episode (or current) d epressed, severe, 08/13/2005 without mention of psychotic behavior documented as of this encounter (statuses as of 02/13/2020) Social History Tobacco Use Types Packs/Day Years Used Date Current Some Day Smoker Cigarettes 0.5 Smokeless Tobacco: Never Used Comments: smokes 5 cigarettes a day Alcohol Use Drinks/Week oz/Week Comments No 0 Standard drinks or equivalent 0.0 Sex Assigned at Date Recorded Not on file documented as of this encounter Last Filed Vital Signs Not on filedocumented in this encounter Plan of Treatment Date Type Specialty Care Team Description 02/18/2020 Office Visit Endocrinology Diabetes & Bernardino Knox MD Metabolism [address] [place] [address] 15 [phone] Health Maintenance Due Date Last Done Comments HEPATITIS C (HCV) SCREEN 1960 Depression Screening 1973 DTaP,Tdap,and Td Vaccines ( - 02/16/1980 Tdap) COLON CANCER SCREENING ANNUAL [...] of this encounter Implants Implanted Type Area Diagnostic Radiologic Technologist Device Identifier Shelf Exp iration Model / Date Serial / L ot Pain Pump Pain Pump documented as of this encounter Procedures Procedure Name Priority Date/Time Associated Diagnosis Comme nts NOTICE OF PRIVACY Routine 02/13/2020 4:42 PM CDT PRACTICES CONSENT/REFUSAL FOR Routine 02/13/2020 4:42 PM CDT DIAGNOSIS AND TREATMENT documented in this encounter Results Not on filedocumented in this encounter Insurance Payer Benefit Plan / Subscriber ID Effective Dates Phone Addre ss Type Group MEDICARE MEDICARE PART [id number] 2004-Janis [phone] [place] [address] Medicare A & B t 2 [id number] [place] [id number] [facility] MEDICAID OF [id number] 2013-Nadira [phone] [address] Medicaid [facility] [id number] [place] [address] documented as of this encounter
--- OUTSIDE RECORDS SUMMARY | 2020-02-21 10:49 | XMS REPORT | Summary of Care ---
:1960 Author Organization [facility] Address [address] [place] [id number] Care Team Providers Name Role Phone Dietrich Sylvain Lees Primary Care Provider Reason for Referral (Routine) Status Reason Specialty Diagnoses / Referred By Referred To Procedures Contact Contact New Request PO-FAST FOOD FRY COOK Diagnoses Toe infection Jesus Mcfadden Procedures Discharge Follow-Up: Specialty Service PO-FAST FOOD FRY COOK; 2 Weeks , DP [address] [facility] [address] SALAS [address] [place] [address] Radiology Services (STAT) Status Reason Specialty Diagnoses / Referred By Referred To Procedures Contact Contact New Request Diagnostic Diagnoses Toe infection Yazmin Coello Radiology Procedures XR CHEST 1 VW Marcelina, POLICYHOLDER INFORMATION CLERK [address] [facility] [address] [place] [id number] MRI/CAT Scan (Routine) Status Reason Specialty Diagnoses / Referred By Referred To Procedures Contact Contact New Request Diagnostic Diagnoses Diabetic infection of right foot Chuck Flores, Radiology Procedures CT FOOT RIGHT WO CONTRAST [address] [place] [id number] Radiology Services (STAT) Status Reason Specialty Diagnoses / Referred By Referred To Procedures Contact Contact New Request Diagnostic Diagnoses Toe infection Other specified diabetes mellitus with other specified complication, unspecified whether buttermaker continuous churn insulin use Yazmin Gillette, Radiology Procedures XR TOES 2 VW RIGHT PAC [address] [facility] [address] [place] [address] Reason for Visit Reason Comments Infection Auth/Cert Status Reason Specialty Diagnoses / Referred By Referred To Procedures Contact Contact Emergency Medicine Diagnoses INFECTION [facility] Emergency Dept [address] [place] [phone] Fax: Encounter Details Date Type Department Care Team Description 02/13/2020 - [facility] Medicine Yazmin Gillette, PAC [address] [place] [address] DR MARTIN, [place] [id number] Diabetic infection 02/18/2020 Encounter Surgery Unit Avis Guo MD [address] [place] [address]. [place] [address] of right foot [address] [place] [address] Dr Martin, [place] [id number] Allergies No Known Allergiesdocumented as of this encounter (statuses as of 02/18/2020) Medications Medication Sig Dispensed Refills Start Date End Date Status ADDERALL 20 MG ORAL TAB take one tab by 60 0 08/15/2005 Active mouth twice daily Additional Information Patient taking differently: 30 mg Oral BID, Reported on 02/14/2020 1:08 PM meclizine Take 1 Tab by 12 Tab 0 10/18/2012 Activ e (ANTIVERT) 25 mg mouth 3 (three) tablet times daily as needed for Dizziness. traMADOL (ULTRAM) Take 1 tablet by 0 05/12/2016 Active 50 mg tablet mouth three times daily. HYDROcodone-acetami Take 1 tablet by 0 Active nophen 10-325 mg mouth 3 (three) tablet times daily. risperiDONE 4 mg Take 1 tablet by 30 tablet 5 02/18/2020 Active tabletIndications: mouth at bedtime. Toe infection metoprolol tartrate Take 1 tablet by 60 tablet 0 02/18/2020 Active 50 mg mouth 2 (two) 020 tabletIndications: times daily for Toe infection 30 days. clonazePAM 1 mg Take 1 tablet by 30 tablet 0 02/18/2020 Active tabletIndications: mouth 2 (two) 020 Toe infection times daily as needed (anxiety) for up to 30 days. benztropine 0.5 mg Take 1 tablet by 30 tablet 5 02/18/202004/10 Active tabletIndications: mouth at bedtime 020 Toe infection for 30 days. dextroamphetamine-a Take 1 tablet by 60 tablet 0 02/18/2020 Active mphetamine 30 mg mouth 2 (two) 020 tabletIndications: times daily for Toe infection 30 days. divalproex ER 500 Take 2 tablets by 60 tablet 0 02/18/202004/10 Active mg 24 hr mouth at bedtime 020 tabletIndications: for 30 days. Toe infection losartan 25 mg Take 3 tablets by 90 tablet 0 02/19/2020 Active tabletIndications: mouth daily for 020 Toe infection 30 days. pantoprazole 40 mg Take 1 tablet by 30 tablet 0 02/19/202005/10 Active EC mouth daily for 020 tabletIndications: 30 days. Toe infection collagenase 250 Apply to 30 g 0 02/19/2020 Act geri unit/gram affected area(s) ointmentIndications daily. : Toe infection hydrALAZINE 25 mg Take 1 tablet by 30 tablet 0 02/19/202003/09 Active tabletIndications: mouth daily for 020 Toe infection 30 days. insulin NPH and inject 65 Units 39 mL 0 02/18/2020 Active regular human 70-30 under the skin 2 020 100 unit/mL (70-30) (two) times daily injectionIndication before breakfast s: Toe infection and dinner for 30 days. FLUOXETINE 20 MG 1 Cap Oral DAILY 30 1 08/15/200502/13 Discontinued ORAL CAP 020 CLONAZEPAM 1 MG 1 Tab Oral BIDPRN 30 0 08/15/200502/17 Discontinued ORAL TAB 020 (Reorder) QUETIAPINE 300 MG 1 Tab Oral QHS 30 1 08/15/2005 Discontinued ORAL TAB 020 DEPAKOTE ER 500 MG take one tab oral 90 1 08/15/2005 Discontinued ORAL TB24 qam and two tabs 020 oral qpm benztropine Take 0.5 mg by 5 03/24/2016 Di scontinued (COGENTIN) 0.5 mg mouth at bedtime. 020 (Reorder) tablet pantoprazole TAKE ONE (1) 0 05/12/2016 Dis continued (PROTONIX) 40 mg EC TABLET(S) BY 020 tablet MOUTH ONCE A DAY BEFORE MEALS. risperiDONE TAKE 1 TABLET BY 5 03/24/2016 Discontinued (RISPERDAL) 4 mg MOUTH AT BEDTIME 020 (Reorder) tablet diclofenac Take 1 tablet by 60 tablet 1 05/21/2016 D iscontinued (VOLTAREN) 75 mg EC mouth 2 (two) 020 tablet times daily with meals. dextroamphetamine-a Take 30 mg by 0 Discontinued mphetamine mouth 2 (two) 020 (ADDERALL) 30 mg times daily. tablet metoprolol tartrate Take 50 mg by 0 Discontinued 50 mg tablet mouth 2 (two) 020 (Re order) times daily. losartan 50 mg Take 50 mg by 0 D iscontinued tablet mouth daily. 020 DULoxetine 60 mg Take 60 mg by 0 Discontinued capsule mouth daily. 020 insulin glargine inject 15 Units 10 mL 0 06/17/2017 Discontinued 100 unit/mL under the skin 2 020 injection (two) times daily. documented as of this encounter (statuses as of 02/18/2020) Active Problems Problem Noted Date Obesity (BMI 30-39.9) 02/14/2020 Diabetic infection of right foot 02/13/2020 Altered mental state 08/11/2017 Hyperglycemia 06/16/2017 Bipolar I disorder, most recent episode (or current) d epressed, severe, 08/13/2005 without mention of psychotic behavior documented as of this encounter (statuses as of 02/18/2020) Immunizations Name Administration Dates Next Due Pneumococcal 13 Conjugate, PCV13 (Prevnar 13) 07/12/2019, documented as of this encounter Social History Tobacco Use Types Packs/Day Years Used Date Current Some Day Smoker Cigarettes 0.5 Smokeless Tobacco: Never Used Comments: smokes 5 cigarettes a day Alcohol Use Drinks/Week oz/Week Comments No 0 Standard drinks or equivalent 0.0 Sex Assigned at Date Recorded Not on file COVID-19 Exposure Response Date Recorded In the last month, have you been in contact with No / Unsure 02/13/2020 5:20 PM CDT someone who was confirmed or suspected to have Coronavirus / COVID-19? documented as of this encounter Last Filed Vital Signs Vital Sign Reading Time Taken Comments Blood Pressure 180/94 02/18/2020 4:35 PM CDT Pulse 77 02/18/2020 4:35 PM CDT Temperature 36.7 C (98 F) 02/18/2020 4:35 PM CDT Respiratory Rate 20 02/18/2020 4:35 PM CDT Oxygen Saturation 95% 02/18/2020 4:35 PM CDT Inhaled Oxygen Concentration - - Weight 118 kg (260 lb 1.6 oz) 02/18/2020 2:46 AM CDT Height 182.9 cm (6') 02/13/2020 4:47 PM CDT Body Mass Index 35.28 02/13/2020 4:47 PM CDT documented in this encounter Discharge Summaries Yazmin Coello, POLICYHOLDER INFORMATION CLERK - 02/18/2020 4:57 PM CDT [facility] Hospitalist Discharge Summary ADMIT DATE: 02/13/2020 DISCHARGE DATE: 02/18/2020 ATTENDING MD: Zachariah Liang MD PCP: Sylvain Dietrich REASON FOR ADMISSION Foot pain CONSULTING SERVICES: ID, signal intelligence analyst PROCEDURES: Bedside foot debridement by Dr Mcfadden [facility]: Gasper Fry is a 60 year old male with PMH as listed above, admitted to the hospital with: 1.Diabetic infection of right [id number] toe: definitely a wound, but unsure the stage of possible infection -- Will continue with IVzosyn/ vanco day6 will need antibiotic for a total of 2 weeks -- no evidence of osteomyelitis -- Dr Mcfadden signal intelligence analyst ordered santyl to wound Dailywith debridement at bedside -- Will follow up with Dr Mcfadden outpatient with in 2 weeks -- Consult ID Dr Cole recommended skilled facility for antibiotic and wound treatment 2. Diabetes: [id number] 11.1 -- Will order ISS -- 70/30 65 units BID -- Will resume other outpatient glycemic agent once medication has been reconciled with family 3. HTN:trending high --metoprolol 50 mg BID --[id number] daily -- start hydralazine 25 mg daily 4. Acute renal failure: -- Holding any nephrotoxic agents -- Fluid hydration 5. Bipolar/ depression/ Schizophrenia Unclear psych history -- adderall 30 m g BID -- Cogentin 0.5 mg QHS -- Risperidone 4 mg QHS 6. Seizures -- Depakote 1000 mg BID PHYSICAL EXAM: NAD, lying comfortably Anicteric sclera, oral mucosa clear Good air entry b/l RRR, nl s1s2 Abd soft NT No significant LE, no calf tenderness AAO, no gross deficits Right foot 5th toe ulcer with grandulation tissue, Left Second toe ulcer Bilateral knees inspected and palpated and is not red or swollen SIGNIFICANT LAB/X-RAYS: LABS - reviewed pertinent labs as below: CBC BMP PT/INR WBC x10^3 (/uL) Date Value 10/18/2012 6.3 WBC (10*3/L) Date Value 02/18/2020 5.56 NA Date Value 02/18/2020 139 mmol/L 10/18/2012 138 MMOL/L No results found for: PT RBC x10^6 (/uL) Date Value 10/18/2012 4.62 RBC (10*6/L) Date Value 02/18/2020 3.02 (L) K Date Value 02/18/2020 3.8 mmol/L 10/18/2012 4.2 MMOL/L PT INR (no units) Date Value 07/13/2003 1.0 INR (no units) Date Value 06/12/2017 0.9 PLT x10^3 (/uL) Date Value 10/18/2012 212 PLT (10*3/L) Date Value 02/18/2020 274 CALCIUM Date Value 02/18/2020 8.2 mg/dL (L) 10/18/2012 9.1 MG/DL HGB Date Value 02/18/2020 9.4 g/dL (L) 10/18/2012 14.9 G/DL CL Date Value 02/18/2020 109 mmol/L (H) 10/18/2012 100 MMOL/L aPTT HCT (%) Date Value 02/18/2020 27.3 (L) 10/18/2012 41.3 BUN Date Value 02/18/2020 16 mg/dL 10/18/2012 24 MG/DL (H) APTT (SEC) Date Value 07/13/2003 22 APTT Patient (Seconds) Date Value 06/12/2017 22 (L) CREATININE Date Value 02/18/2020 1.13 mg/dL 10/18/2012 0.70 MG/DL IMAGING - reviewed Hospital Encounter on 02/13/20 XR TOES 2 VW RIGHT Narrative EXAM: Right toes 2 views HISTORY: small toe infection/wound rule out osteomyelitis TECHNIQUE:AP and lateral views of the toes of the right foot are obtained. FINDINGS:Hammertoe deformities are noted. No bony erosive changes are seen. Degenerative changes are seen in the PIP and DIP joint of the little toe. Diffuse soft tissue swelling is seen in the forefoot particularly prominent surrounding the fourth and fifth toes. Impression 1. No definite radiographic evidence of osteomyelitis. If osteomyelitis is clinically suspected consider either 3 phase bone scan or MRI. CT FOOT RIGHT WO CONTRAST Narrative EXAM: CT FOOT RIGHT WO CONTRAST HISTORY: Osteomyelitis suspected, foot swelling, diabetic R 5th toe wound, evaluate for osteo COMPARISON: 02/13/2020 foot radiographs. FINDINGS: Contrast-enhanced multiplanar CT imaging of the right foot was performed. Diabetic type vascular calcifications are present. Remote medial malleolus corticated avulsions are present. Calcaneal enthesophyte formation is seen. No acute bony abnormality is present. Moderate joint space narrowing, subchondral sclerosis and marginal osteophyte formation involve the first MTP joint, great toe IP joint and hallux metatarsal sesamoid articulations. There is chronic cortical fragmentation at the plantar base of the great toe distal phalanx. Diffuse circumferential subcutaneous fat stranding is seen at the level of the ankle and foot. No rim-enhancing fluid collections are seen. Ulceration with superficial gas is seen along the lateral distal small toe with marked swelling. No aggressive periosteal reaction or vlad osteolysis is seen about the small toe. Impression Fifth toe ulceration with surrounding cellulitis with no CT findings of osteomyelitis. Cannot exclude early osteomyelitis. If clinical concern persists, MRI of the forefoot recommended as this is the study of choice for exclusion of early osteomyelitis. No abscess. XR CHEST 1 VW Narrative XR CHEST 1 VW HISTORY: 60 years-old; Male; PICC PLACEMENT COMPARISON: Chest radiograph 06/17/2017 FINDINGS: Underpenetration of the x-ray beams due to large body habitus. The right PICC line tip projects at the atriocaval junction. Interstitial vascular congestion and cephalization is noted. No focal consolidation is identified. No pleural effusion or pneumothorax is seen. The cardiomediastinal silhouette is enlarged. Impression The right PICC line tip terminates in the atriocaval junction. No pneumothorax. Interstitial pulmonary edema and cardiomegaly. Preliminary Report Dictated by Resident: Aimee Fernandze I, Jone Velarde MD., have reviewed this study and agree with the above report. ITEMS FOR FOLLOW UP PROVIDER: FUNCTIONAL STATUS: ambulate with assistance DISCHARGE CONDITION: good DIET: cardiac and diabetic ACTIVITY: as tolerated DISCHARGE MEDICATIONS: Current Discharge Medication List START taking these medications Details collagenase 250 unit/gram ointment Apply to affected area(s) daily. Qty: 30 g, Refills: 0 Start date: 02/19/2020 Associated Diagnoses: Toe infection dextroamphetamine-amphetamine (ADDERALL) 30 mg Take 30 mg by mouth 2 (two) times daily. Qty: 60 tablet, Refills: 0 Start date: 02/18/2020, End date: 03/19/2020 Associated Diagnoses: Toe infection hydrALAZINE (APRESOLINE) 25 mg Take 25 mg by mouth daily. Qty: 30 tablet, Refills: 0 Start date: 02/19/2020, End date: 03/20/2020 Associated Diagnoses: Toe infection insulin NPH and regular human 70-30 (HUMULIN 70-30 U-100 INSULIN) 65 Units inject 65 Units under theskin 2 (two) times daily before breakfast and dinner. Qty: 39 mL, Refills: 0 Start date: 02/18/2020, End date: 03/19/2020 Associated Diagnoses: Toe infection CONTINUE these medications which have CHANGED Details benztropine (COGENTIN) 0.5 mg Take 0.5 mg by mouth at bedtime. Qty: 30 tablet, Refills: 5 Start date: 02/18/2020, End date: 03/19/2020 Associated Diagnoses: Toe infection clonazePAM (KLONOPIN) 1 mg Take 1 mg by mouth 2 (two) times daily as needed (anxiety). Qty: 30 tablet, Refills: 0 Start date: 02/18/2020, End date: 03/19/2020 Associated Diagnoses: Toe infection divalproex ER (DEPAKOTE ER) 1,000 mg Take 1,000 mg by mouth at bedtime. Qty: 60 tablet, Refills: 0 Start date: 02/18/2020, End date: 03/19/2020 Associated Diagnoses: Toe infection losartan (COZAAR) 75 mg Take 75 mg by mouth daily. Qty: 90 tablet, Refills: 0 Start date: 02/19/2020, End date: 03/20/2020 Associated Diagnoses: Toe infection metoprolol tartrate (LOPRESSOR) 50 mg Take 50 mg by mouth 2 (two) times daily. Qty: 60 tablet, Refills: 0 Start date: 02/18/2020, End date: 03/19/2020 Associated Diagnoses: Toe infection pantoprazole (PROTONIX) 40 mg Take 40 mg by mouth daily. Qty: 30 tablet, Refills: 0 Start date: 02/19/2020, End date: 03/20/2020 Associated Diagnoses: Toe infection risperiDONE (RISPERDAL) 4 mg Take 4 mg by mouth at bedtime. Qty: 30 tablet, Refills: 5 Start date: 02/18/2020 Associated Diagnoses: Toe infection CONTINUE these medications which have NOT CHANGED Details HYDROcodone-acetaminophen (NORCO) 1 tablet Take 1 tablet by mouth 3 (three) times daily. traMADOL (ULTRAM) 50 mg tablet Take 1 tablet by mouth three times daily. Refills: 0 meclizine (TRAVEL-EASE (MECLIZINE)) 25 mg Take 25 mg by mouth 3 (three) times daily as needed for Dizziness. Qty: 12 Tab, Refills: 0 ADDERALL 20 MG ORAL TAB take one tab by mouth twice daily Qty: 60, Refills: 0 DISCHARGE: long term facility or longterm FOLLOW-UP APPOINTMENT: Right foot 5th digit and Left foot second toe diabetic foot ulcer, would recommend changing to betadine daily Zosyn and Vancomycin day5, Patient will need minimum of 2 weeks of antibiotics Follow up with Dr Mcfadden for wound care Please call paging services at [phone] to contact GODWIN Collado with any questions. GODWIN Collado [facility] was viewed during this stay Hospital discharge time took longer than 35 minutes. Associated attestation - Zachariah Liang MD - 02/18/2020 5:25 PM CDTI personally evaluated and examined the patient on 02/18/2020 and agree with the note as detailed by the nurse practitioner. I actively participated in the decision- making process. In summary, patient was admitted for recurrent diabetic foot infection. Treated with iv abx. Seen byID and podiatry. Discharged to SNF for iv abx per ID's recommendation. Rest of plan per below. Zachariah Liang M.D. 02/18/2020 5:24 PM documented in this encounter Discharge Instructions AttachmentsThe following attachments cannot be sent through Care Everywhere. Diabetic Foot Pressure Injuries, Discharge Instructions (Georgian)Minor Foot Infections, Treating for Diabetes (Georgian)Vancomycin injection (Georgian) Piperacillin; Tazobactam injection (Georgian)documented in this encounter Progress Notes Misty Zambrano LBSW - 02/18/2020 2:50 PM CDT Care Management Discharge Disposition Note (DCDN) -2- Interventions: Disease specific education;Intensive medication reconciliation/management;Teachback;Clear discharge plan;Follow-up appointments -2-1 Providers: Physician;Hand Crocheter/Preschool Assistant;Nurse -2-1 Patient Capacity Improvements: Avoidance of adverse events/readmission Discharge Plan for ongoing care and services: Care Home Facility (SNF) Is this a new referral: Yes Patient Choice completed for referred services: Yes DME location: Other DME location: Durable Medical Equipment: Home Health location: Discharge location(s): SNF location: [place] [address] () [phone] () [phone] Patient choice completed for referred services: Yes Discussed with patient/patients family involved in decision making: Yes Patient or family caregiver understands, and agrees with discharge plan. Community resources/referrals made or provided to patient: No Resources/Referrals: Transportation: Wheelchair Van Mental Status: Alert & Oriented to Person,Place & Time Living Arrangement: Home Other living arrangement: Address of living arrangement: [address] [place] [address] Funding Resources: Medicare A & B Nursing informed of discharge plan: Yes Name of RN informed: MALU Gonzalez Expected discharge date: Time: Additional Information: MARLENE/RAF Name & Contact number: LOIS Ayala Ph. [phone] The following information has been provided to the facility noted above: reason for the patient discharge or transfer; patients physical and psychosocial status; summary of care, treatment, servicesprovided to patient; and the patient progress toward goals. Gareth Flores FNP - 02/18/2020 12:27 PM CDT Subjective: Patient is a 59 year old male who presents with bilateral foot wounds for the past few weeks. Patient has been seen by Dr. Mcfadden outpatient but reports worsening redness, swelling and pain.Patient reports he was supposed to follow up with vein specialist but did not go. I was consulted for bilateral foot wounds. Patient examined at bedside. No new changes Objective: Vitals: 02/18/20 0246 02/18/20 0353 02/18/20 0727 02/18/20 1112 BP: (!) 182/92 (!) 162/110 (!) 151/82 Pulse: 77 79 69 Resp: Temp: 36.8 C (98.2 F) 36.4 C (97.5 F) 36.8 C (98.2 F) TempSrc: Temporal Artery Tympanic Tympanic SpO2: 94% 95% 94% Weight: 118 kg (260 lb 1.6 oz) Height: CBC WBC x10^3 (/uL) Date Value 10/18/2012 6.3 WBC (10*3/L) Date Value 02/18/2020 5.56 RBC x10^6 (/uL) Date Value 10/18/2012 4.62 RBC (10*6/L) Date Value 02/18/2020 3.02 (L) PLT x10^3 (/uL) Date Value 10/18/2012 212 PLT (10*3/L) Date Value 02/18/2020 274 HGB Date Value 02/18/2020 9.4 g/dL (L) 10/18/2012 14.9 G/DL HCT (%) Date Value 02/18/2020 27.3 (L) 10/18/2012 41.3 CMP NA Date Value 02/18/2020 139 mmol/L 10/18/2012 138 MMOL/L K Date Value 02/18/2020 3.8 mmol/L 10/18/2012 4.2 MMOL/L CALCIUM Date Value 02/18/2020 8.2 mg/dL (L) 10/18/2012 9.1 MG/DL CL Date Value 02/18/2020 109 mmol/L (H) 10/18/2012 100 MMOL/L BUN Date Value 02/18/2020 16 mg/dL 10/18/2012 24 MG/DL (H) CREATININE Date Value 02/18/2020 1.13 mg/dL 10/18/2012 0.70 MG/DL GLUCOSE Date Value 02/18/2020 147 mg/dL (H) 10/18/2012 289 MG/DL (H) CO2 TOTAL Date Value 02/18/2020 22 mmol/L (L) 10/18/2012 27 MMOL/L ALBUMIN Date Value 06/17/2017 3.0 g/dL (L) 10/18/2012 4.0 G/DL T PROTEIN Date Value 06/17/2017 5.3 g/dL (L) 10/18/2012 6.5 G/DL TOTAL BILI Date Value 06/17/2017 0.2 mg/dL 10/18/2012 0.3 MG/DL BILI UNCON Date Value 06/17/2017 0.0 mg/dL (L) 08/13/2005 0.1 MG/DL BILI CONJ Date Value 06/17/2017 0.0 mg/dL 08/13/2005 0.0 MG/DL ALT(SGPT) (U/L) Date Value 06/17/2017 33 10/18/2012 25 AST(SGOT) (U/L) Date Value 06/17/2017 19 10/18/2012 21 ALK PHOS (U/L) Date Value 06/17/2017 93 10/18/[address] right foot: EXAM: CT FOOT RIGHT WO CONTRAST HISTORY: Osteomyelitis suspected, foot swelling, diabetic R 5th toe wound, evaluate for osteo COMPARISON: 02/13/2020 foot radiographs. FINDINGS: Contrast-enhanced multiplanar CT imaging of the right foot was performed. Diabetic type vascular calcifications are present. Remote medial malleolus corticated avulsions are present. Calcaneal enthesophyte formation is seen. No acute bony abnormality is present. Moderate joint space narrowing, subchondral sclerosis and marginal osteophyte formation involve the first MTP joint, great toe IP joint and hallux metatarsal sesamoid articulations. There is chronic cortical fragmentation at the plantar base of the great toe distal phalanx. Diffuse circumferential subcutaneous fat stranding is seen at the level of the ankle and foot. No rim-enhancing fluid collections are seen. Ulceration with superficial gas is seen along the lateral distal small toe with marked swelling. No aggressive periosteal reaction or vlad osteolysis is seen about the small toe. IMPRESSION Fifth toe ulceration with surrounding cellulitis with no CT findings of osteomyelitis. Cannot exclude early osteomyelitis. If clinical concern persists, MRI of the forefoot recommended as this is the study of choice for exclusion of early osteomyelitis. ROS: General: Awake, cooporative CV: S1,S2 RESP: Good breath sounds ABD: nontender, bowel sounds present Extremities: swelling to bilateral lower extremities with stasis changes. Weak pedal pulses. Skin: Right foot lateral 5th toe ulcer with granulation tissue, sloughand serosanguinous drainage.Left foot second toe with ulcer, wound bed with granulation tissue Assessment and plan: Right foot 5th digit and Left foot second toe diabetic foot ulcer, would recommend changing to betadine daily Xray not suggestive of osteomyelitis Zosyn and Vancomycin day5, continue while in hospital Patient will need minimum of 2 weeks of antibiotics Upon discharge can switch to Clindamycin 300mg PO TID Patient will need to follow up at the wound healing center Diabetes mellitus, monitor glycemic control Educated the patient to keep leg elevated Will continue to monitor Patient discussed with Dr. Hernandez Mary Ann Perales - 02/18/2020 10:00 AM CDTEncounter: Visit with patient per saturation equipment operator Taoism: Gnosticist Assessment: Patient expressed some anger due to social issues, which visibly decreased after mainspring strip gauger interventions Intervention: Facilitated story telling; listened empathetically; identified and evaluated coping strategies; provided prayer Outcome: Patient shared some of his medical and life narrative; patient was able to express anger; patient accepted support; patient expressed gratitude Plan of Care: Follow-up support is available if needed/wanted Family Assessment: DOUGLAS Sierra Yazmin Ward FNP - 02/17/2020 3:[address] [facility] Hospitalist Progress Note SUBJECTIVE: Patient seen at bedside patient denies any pain at this time or stated he is holding out for pain meds. No overnight event CURRENT MEDICATIONS - reviewed. Current Facility-Administered Medications Medication Dose Route Frequency Last Rate Last Dose vancomycin 1250 mg in NS 250 mL RTU IV Piggyback 1,250 mg 1,250 mg IV Infusion Q12H ABX losartan (COZAAR) tablet 75 mg 75 mg Oral DAILY 75 mg at 02/17/20 0807 acetaminophen (TYLENOL) tablet 650 mg 650 mg Oral Q6HPRN 650 mg at 02/16/20 0549 benztropine (COGENTIN) tablet 0.5 mg 0.5 mg Oral QHS 0.5 mg at 02/14/20 2113 clonazePAM (KLONOPIN) tablet 1 mg 1 mg Oral BIDPRN 1 mg at 02/15/20 0318 collagenase (SANTYL) ointment Topical (Apply To Affected Areas) DAILY dextroamphetamine-amphetamine (ADDERALL) 10 mg tablet 30 mg 30 mg Oral BID 30 mg at 02/17/20 08 dextrose 50 % in water (D50W) injection 25 mL 25 mL Slow IV Push PRN 25 mL at 02/15/20 0837 divalproex ER (DEPAKOTE ER) 24 hr tablet 1,000 mg 1,000 mg Oral QHS 1,000 mg at 02/14/20 211 glucagon (GLUCAGEN DIAGNOSTIC KIT) injection 1 mg 1 mg Intramuscular PRN heparin (porcine) injection 5,000 Units 5,000 Units Subcutaneous Q8H 5,000 Units at 02/17/20 0730 insulin NPH and regular human 70-30 (HUMULIN 70-30 U-100 INSULIN) 100 unit/mL (70-30) injection 65 Units 65 Units Subcutaneous BIDAC 65 Units at 02/17/20 0802 metoprolol tartrate (LOPRESSOR) tablet 50 mg 50 mg Oral BID 50 mg at 02/17/20 0801 NaCl 0.9% (NS) IV infusion 1,000 mL 1,000 mL IV Infusion CONTINUOUS 125 mL/hr at 02/17/20 1537 1,000 mL at 02/17/20 1537 ondansetron (ZOFRAN (PF)) injection 4 mg 4 mg Slow IV Push Q6HPRN 4 mg at 02/16/202051 pantoprazole (PROTONIX) EC tablet 40 mg 40 mg Oral DAILY 40 mg at 02/17/20 0801 piperacillin-tazobactam (ZOSYN) 3.375 g in NaCl 0.9% (NS) 100 mL MINI-BAG 3.375 g IV Piggyback Q6H ABX 3.375 g at 02/17/20 1129 risperiDONE (RISPERDAL) tablet 4 mg 4 mg Oral QHS 4 mg at 02/14/20 2112 Sliding Scale Insulin-Regular + Fsbg Testing Subcutaneous AC+HS 2 Units at 02/17/20 1129 PHYSICAL EXAM: BP (!) 184/89 | Pulse 71 | Temp 36.4 C (97.6 F) (Temporal Artery) | Resp 18 | Ht 1.829 m (6') | Wt 109.7 kg (241 lb 14.4 oz) | SpO2 96% | BMI 32.81 kg/m General: NAD HEENT: Anicteric sclerae, NCAT Lungs: CTAB Cardio: RRR, strong symmetric pulses Abdomen: Soft, NTND Genitourinary: No lesions Musculoskeletal: Normal muscle mass, no synovitis Skin: right foot 5th toe and left foot second toe ulcer noted, dressing in place no drainage Neuro: AAOx3, no focal deficits Psych: Normal affect LABS/IMAGING - reviewed, pertinent results as below: CBC BMP PT/INR WBC x10^3 (/uL) Date Value 10/18/2012 6.3 WBC (10*3/L) Date Value 02/17/2020 5.14 NA Date Value 02/17/2020 142 mmol/L 10/18/2012 138 MMOL/L No results found for: PT RBC x10^6 (/uL) Date Value 10/18/2012 4.62 RBC (10*6/L) Date Value 02/17/2020 3.04 (L) K Date Value 02/17/2020 3.9 mmol/L 10/18/2012 4.2 MMOL/L PT INR (no units) Date Value 07/13/2003 1.0 INR (no units) Date Value 06/12/2017 0.9 PLT x10^3 (/uL) Date Value 10/18/2012 212 PLT (10*3/L) Date Value 02/17/2020 269 CALCIUM Date Value 02/17/2020 8.2 mg/dL (L) 10/18/2012 9.1 MG/DL HGB Date Value 02/17/2020 9.3 g/dL (L) 10/18/2012 14.9 G/DL CL Date Value 02/17/2020 112 mmol/L (H) 10/18/2012 100 MMOL/L aPTT HCT (%) Date Value 02/17/2020 28.0 (L) 10/18/2012 41.3 BUN Date Value 02/17/2020 18 mg/dL 10/18/2012 24 MG/DL (H) APTT (SEC) Date Value 07/13/2003 22 APTT Patient (Seconds) Date Value 06/12/2017 22 (L) CREATININE Date Value 02/17/2020 1.26 mg/dL (H) 10/18/2012 0.70 MG/DL IMAGING- Hospital Encounter on 02/13/20 XR TOES 2 VW RIGHT Narrative EXAM: Right toes 2 views HISTORY: small toe infection/wound rule out osteomyelitis TECHNIQUE:AP and lateral views of the toes of the right foot are obtained. FINDINGS:Hammertoe deformities are noted. No bony erosive changes are seen. Degenerative changes are seen in the PIP and DIP joint of the little toe. Diffuse soft tissue swelling is seen in the forefoot particularly prominent surrounding the fourth and fifth toes. Impression 1. No definite radiographic evidence of osteomyelitis. If osteomyelitis is clinically suspected consider either 3 phase bone scan or MRI. CT FOOT RIGHT WO CONTRAST Narrative EXAM: CT FOOT RIGHT WO CONTRAST HISTORY: Osteomyelitis suspected, foot swelling, diabetic R 5th toe wound, evaluate for osteo COMPARISON: 02/13/2020 foot radiographs. FINDINGS: Contrast-enhanced multiplanar CT imaging of the right foot was performed. Diabetic type vascular calcifications are present. Remote medial malleolus corticated avulsions are present. Calcaneal enthesophyte formation is seen. No acute bony abnormality is present. Moderate joint space narrowing, subchondral sclerosis and marginal osteophyte formation involve the first MTP joint, great toe IP joint and hallux metatarsal sesamoid articulations. There is chronic cortical fragmentation at the plantar base of the great toe distal phalanx. Diffuse circumferential subcutaneous fat stranding is seen at the level of the ankle and foot. No rim-enhancing fluid collections are seen. Ulceration with superficial gas is seen along the lateral distal small toe with marked swelling. No aggressive periosteal reaction or vlad osteolysis is seen about the small toe. Impression Fifth toe ulceration with surrounding cellulitis with no CT findings of osteomyelitis. Cannot exclude early osteomyelitis. If clinical concern persists, MRI of the forefoot recommended as this is the study of choice for exclusion of early osteomyelitis. No abscess. ASSESSMENT/PLAN Gasper Fry is a 60 year old male with PMH as listed above, admitted to the hospital with: 1.Diabetic infection of right [id number] toe: definitely a wound, but unsure the stage of possible infection -- Will continue with IVzosyn/ vanco day5 -- no evidence of osteomyelitis -- Pain control -- sNS @ 125 ml/hr -- Dr Mcfadden signal intelligence analyst ordered santyl to wound Dailywith debridement at bedside -- Will watch 1 more day, oral antibiotic for discharge -- Consult ID Dr Hernandezfollowing recommended skilled facility for antibiotic and wound treatment --unable to approve SNF will consider sending patient home with oral antibiotics per Dr. Hernandez recommendations 2. Diabetes: [id number] 11.1 -- Will order ISS -- 70/30 65 units BID -- Will resume other outpatient glycemic agent once medication has been reconciled with family 3. HTN: trending high --metoprolol 50 mg BID -- Increase Losartan 75 mg daily -- start hydralazine 25 mg daily 4. Acute renal failure: -- Holding any nephrotoxic agents -- Fluid hydration 5. Bipolar/ depression/ Schizophrenia Unclear psych history -- adderall 30 m g BID -- Cogentin 0.5 mg QHS -- Risperidone 4 mg QHS 6. Seizures -- Depakote 1000 mg BID Prophylaxis: DVT- heparin Stress Ulcer: no indication for prophylaxis Code Status: addressed: FC Disposition: home with HH, with oral antibiotics, and wound care versus SNF, after collaborating with BALAJI Cruz CAFETERIA MANAGER was viewed during this stay GODWIN Collado Associated attestation - Zachariah Liang MD - 02/17/2020 6:47 PM CDTI personally evaluated and examined the patient on 02/17/2020 and agree with the note as detailed by the nurse practitioner. I actively participated in the decision- making process. In summary, patient was admitted for recurrent diabetic foot infection. Unable to get placement approval for iv abx. Possible home with oral abx per ID. Rest of plan per below. Zachariah Liang M.D. 02/17/2020 6:46 PM Gareth Prajapati FNP - 02/17/2020 1:51 PM CDT Subjective: Patient is a 59 year old male who presents with bilateral foot wounds for the past few weeks. Patient has been seen by Dr. Mcfadden outpatient but reports worsening redness, swelling and pain.Patient reports he was supposed to follow up with vein specialist but did not go. I was consulted for bilateral foot wounds. Patient examined at bedside. No new changes Objective: Vitals: 02/16/20 2333 02/17/20 0333 02/17/20 0735 02/17/20 1052 BP: (!) 170/87 (!) 192/93 (!) 180/93 (!) 184/89 Pulse: 85 69 76 71 Resp: 17 18 18 Temp: 36.2 C (97.2 F) 36.2 C (97.2 F) 36.3 C (97.4 F) 36.4 C (97.6 F) TempSrc: Temporal Artery Temporal Artery Temporal Artery Temporal Artery SpO2: 97% 96% 94% 96% Weight: 109.7 kg (241 lb 14.4 oz) Height: CBC WBC x10^3 (/uL) Date Value 10/18/2012 6.3 WBC (10*3/L) Date Value 02/17/2020 5.14 RBC x10^6 (/uL) Date Value 10/18/2012 4.62 RBC (10*6/L) Date Value 02/17/2020 3.04 (L) PLT x10^3 (/uL) Date Value 10/18/2012 212 PLT (10*3/L) Date Value 02/17/2020 269 HGB Date Value 02/17/2020 9.3 g/dL (L) 10/18/2012 14.9 G/DL HCT (%) Date Value 02/17/2020 28.0 (L) 10/18/2012 41.3 CMP NA Date Value 02/17/2020 142 mmol/L 10/18/2012 138 MMOL/L K Date Value 02/17/2020 3.9 mmol/L 10/18/2012 4.2 MMOL/L CALCIUM Date Value 02/17/2020 8.2 mg/dL (L) 10/18/2012 9.1 MG/DL CL Date Value 02/17/2020 112 mmol/L (H) 10/18/2012 100 MMOL/L BUN Date Value 02/17/2020 18 mg/dL 10/18/2012 24 MG/DL (H) CREATININE Date Value 02/17/2020 1.26 mg/dL (H) 10/18/2012 0.70 MG/DL GLUCOSE Date Value 02/17/2020 56 mg/dL (L) 10/18/2012 289 MG/DL (H) CO2 TOTAL Date Value 02/17/2020 24 mmol/L 10/18/2012 27 MMOL/L ALBUMIN Date Value 06/17/2017 3.0 g/dL (L) 10/18/2012 4.0 G/DL T PROTEIN Date Value 06/17/2017 5.3 g/dL (L) 10/18/2012 6.5 G/DL TOTAL BILI Date Value 06/17/2017 0.2 mg/dL 10/18/2012 0.3 MG/DL BILI UNCON Date Value 06/17/2017 0.0 mg/dL (L) 08/13/2005 0.1 MG/DL BILI CONJ Date Value 06/17/2017 0.0 mg/dL 08/13/2005 0.0 MG/DL ALT(SGPT) (U/L) Date Value 06/17/2017 33 10/18/2012 25 AST(SGOT) (U/L) Date Value 06/17/2017 19 10/18/2012 21 ALK PHOS (U/L) Date Value 06/17/2017 93 10/18/[address] right foot: EXAM: CT FOOT RIGHT WO CONTRAST HISTORY: Osteomyelitis suspected, foot swelling, diabetic R 5th toe wound, evaluate for osteo COMPARISON: 02/13/2020 foot radiographs. FINDINGS: Contrast-enhanced multiplanar CT imaging of the right foot was performed. Diabetic type vascular calcifications are present. Remote medial malleolus corticated avulsions are present. Calcaneal enthesophyte formation is seen. No acute bony abnormality is present. Moderate joint space narrowing, subchondral sclerosis and marginal osteophyte formation involve the first MTP joint, great toe IP joint and hallux metatarsal sesamoid articulations. There is chronic cortical fragmentation at the plantar base of the great toe distal phalanx. Diffuse circumferential subcutaneous fat stranding is seen at the level of the ankle and foot. No rim-enhancing fluid collections are seen. Ulceration with superficial gas is seen along the lateral distal small toe with marked swelling. No aggressive periosteal reaction or vlad osteolysis is seen about the small toe. IMPRESSION Fifth toe ulceration with surrounding cellulitis with no CT findings of osteomyelitis. Cannot exclude early osteomyelitis. If clinical concern persists, MRI of the forefoot recommended as this is the study of choice for exclusion of early osteomyelitis. ROS: General: Awake, cooporative CV: S1,S2 RESP: Good breath sounds ABD: nontender, bowel sounds present Extremities: swelling to bilateral lower extremities with stasis changes. Weak pedal pulses. Skin: Right foot lateral 5th toe ulcer with granulation tissue, slough and serosanguinous drainage. Left foot second toe with ulcer, wound bed with granulation tissue Assessment and plan: Right foot 5th digit and Left foot second toe diabetic foot ulcer, continue santyl per Dr. Neville order Xray not suggestive of osteomyelitis Zosyn and Vancomycin day 4, continue Patient will need minimum of 2 weeks of antibiotics Diabetes mellitus, monitor glycemic control Educated the patient to keep leg elevated Patient would benefit from LTAC or rehab facility for wound management, rehabilitation and antibiotics Will continue to monitor Patient discussed with Dr. Hernandez Gareth sequeira FNP - 02/16/2020 4:47 PM CDT Subjective: Patient is a 59 year old male who presents with bilateral foot wounds for the past few weeks. Patient has been seen by Dr. Mcfadden outpatient but reports worsening redness, swelling and pain.Patient reports he was supposed to follow up with vein specialist but did not go. I was consulted for bilateral foot wounds. Patient examined at bedside. No new changes Objective: Vitals: 02/16/20 0320 02/16/20 0748 02/16/20 1055 02/16/20 1514 BP: (!) 152/81 (!) 167/82 (!) 163/85 (!) 178/86 Pulse: 71 69 63 71 Resp: 16 16 16 16 Temp: 36.4 C (97.6 F) 36.4 C (97.6 F) 36.6 C (97.8 F) 36 C (96.8 F) TempSrc: Temporal Artery Temporal Artery Temporal Artery Temporal Artery SpO2: 97% 100% 99% 94% Weight: Height: CBC WBC x10^3 (/uL) Date Value 10/18/2012 6.3 WBC (10*3/L) Date Value 02/16/2020 3.91 (L) RBC x10^6 (/uL) Date Value 10/18/2012 4.62 RBC (10*6/L) Date Value 02/16/2020 3.09 (L) PLT x10^3 (/uL) Date Value 10/18/2012 212 PLT (10*3/L) Date Value 02/16/2020 243 HGB Date Value 02/16/2020 9.5 g/dL (L) 10/18/2012 14.9 G/DL HCT (%) Date Value 02/16/2020 29.1 (L) 10/18/2012 41.3 CMP NA Date Value 02/16/2020 142 mmol/L 10/18/2012 138 MMOL/L K Date Value 02/16/2020 4.7 mmol/L 10/18/2012 4.2 MMOL/L CALCIUM Date Value 02/16/2020 8.1 mg/dL (L) 10/18/2012 9.1 MG/DL CL Date Value 02/16/2020 112 mmol/L (H) 10/18/2012 100 MMOL/L BUN Date Value 02/16/2020 20 mg/dL 10/18/2012 24 MG/DL (H) CREATININE Date Value 02/16/2020 1.35 mg/dL (H) 10/18/2012 0.70 MG/DL GLUCOSE Date Value 02/16/2020 70 mg/dL 10/18/2012 289 MG/DL (H) CO2 TOTAL Date Value 02/16/2020 22 mmol/L (L) 10/18/2012 27 MMOL/L ALBUMIN Date Value 06/17/2017 3.0 g/dL (L) 10/18/2012 4.0 G/DL T PROTEIN Date Value 06/17/2017 5.3 g/dL (L) 10/18/2012 6.5 G/DL TOTAL BILI Date Value 06/17/2017 0.2 mg/dL 10/18/2012 0.3 MG/DL BILI UNCON Date Value 06/17/2017 0.0 mg/dL (L) 08/13/2005 0.1 MG/DL BILI CONJ Date Value 06/17/2017 0.0 mg/dL 08/13/2005 0.0 MG/DL ALT(SGPT) (U/L) Date Value 06/17/2017 33 10/18/2012 25 AST(SGOT) (U/L) Date Value 06/17/2017 19 10/18/2012 21 ALK PHOS (U/L) Date Value 06/17/2017 93 10/18/[address] right foot: EXAM: CT FOOT RIGHT WO CONTRAST HISTORY: Osteomyelitis suspected, foot swelling, diabetic R 5th toe wound, evaluate for osteo COMPARISON: 02/13/2020 foot radiographs. FINDINGS: Contrast-enhanced multiplanar CT imaging of the right foot was performed. Diabetic type vascular calcifications are present. Remote medial malleolus corticated avulsions are present. Calcaneal enthesophyte formation is seen. No acute bony abnormality is present. Moderate joint space narrowing, subchondral sclerosis and marginal osteophyte formation involve the first MTP joint, great toe IP joint and hallux metatarsal sesamoid articulations. There is chronic cortical fragmentation at the plantar base of the great toe distal phalanx. Diffuse circumferential subcutaneous fat stranding is seen at the level of the ankle and foot. No rim-enhancing fluid collections are seen. Ulceration with superficial gas is seen along the lateral distal small toe with marked swelling. No aggressive periosteal reaction or vlad osteolysis is seen about the small toe. IMPRESSION Fifth toe ulceration with surrounding cellulitis with no CT findings of osteomyelitis. Cannot exclude early osteomyelitis. If clinical concern persists, MRI of the forefoot recommended as this is the study of choice for exclusion of early osteomyelitis. ROS: General: Awake, cooporative CV: S1,S2 RESP: Good breath sounds ABD: nontender, bowel sounds present Extremities: swelling to bilateral lower extremities with stasis changes. Weak pedal pulses. Skin: Right foot lateral 5th toe ulcer with granulation tissue, slough and serosanguinous drainage. Left foot second toe with ulcer, wound bed with granulation tissue Assessment and plan: Right foot 5th digit and Left foot second toe diabetic foot ulcer, continue santyl per Dr. Neville order Xray not suggestive of osteomyelitis Zosyn and Vancomycin day 3 Patient will need minimum of 2 weeks of antibiotics Diabetes mellitus, monitor glycemic control Educated the patient to keep leg elevated Patient would benefit from LTAC facility for wound management and antibiotics Will continue to monitor Patient discussed with Dr. Hernandez Yazmin Ward FNP - 02/16/2020 2:[address] [facility] Hospitalist Progress Note SUBJECTIVE: Patient stable no distress noted. Patient wanting to go to SNF for abx/ wound treatment CURRENT MEDICATIONS - reviewed. Current Facility-Administered Medications Medication Dose Route Frequency Last Rate Last Dose morpHINE injection 2 mg 2 mg Slow IV Push Q4HPRN 2 mg at 02/16/20 1039 acetaminophen (TYLENOL) tablet 650 mg 650 mg Oral Q6HPRN 650 mg at 02/16/20 0549 benztropine (COGENTIN) tablet 0.5 mg 0.5 mg Oral QHS 0.5 mg at 02/14/20 2113 clonazePAM (KLONOPIN) tablet 1 mg 1 mg Oral BIDPRN 1 mg at 02/15/20 0318 collagenase (SANTYL) ointment Topical (Apply To Affected Areas) DAILY dextroamphetamine-amphetamine (ADDERALL) 10 mg tablet 30 mg 30 mg Oral BID 30 mg at 02/16/20 0815 dextrose 50 % in water (D50W) injection 25 mL 25 mL Slow IV Push PRN 25 mL at 02/15/20 0837 divalproex ER (DEPAKOTE ER) 24 hr tablet 1,000 mg 1,000 mg Oral QHS 1,000 mg at 02/14/20 2111 glucagon (GLUCAGEN DIAGNOSTIC KIT) injection 1 mg 1 mg Intramuscular PRN heparin (porcine) injection 5,000 Units 5,000 Units Subcutaneous Q8H 5,000 Units at 02/16/20 1417 insulin NPH and regular human 70-30 (HUMULIN 70-30 U-100 INSULIN) 100 unit/mL (70-30) injection 65 Units 65 Units Subcutaneous BIDAC Stopped at 02/16/20 0730 losartan (COZAAR) tablet 50 mg 50 mg Oral DAILY 50 mg at 02/16/20 0815 metoprolol tartrate (LOPRESSOR) tablet 50 mg 50 mg Oral BID 50 mg at 02/16/20 0815 NaCl 0.9% (NS) IV infusion 1,000 mL 1,000 mL IV Infusion CONTINUOUS 125 mL/hr at 02/16/20 0933 1,000 mL at 02/16/20 0933 ondansetron (ZOFRAN (PF)) injection 4 mg 4 mg Slow IV Push Q6HPRN pantoprazole (PROTONIX) EC tablet 40 mg 40 mg Oral DAILY 40 mg at 02/16/20 0815 piperacillin-tazobactam (ZOSYN) 3.375 g in NaCl 0.9% (NS) 100 mL MINI-BAG 3.375 g IV Piggyback Q6H ABX 3.375 g at 02/16/20 1038 risperiDONE (RISPERDAL) tablet 4 mg 4 mg Oral QHS 4 mg at 02/14/202 Sliding Scale Insulin-Regular + Fsbg Testing Subcutaneous AC+HS Stopped at 02/16/20 0730 vancomycin (VANCOCIN) 1,000 mg in NaCl 0.9% (NS) 250 mL VIAL-MATE IV piggyback 1,000 mg IV Piggyback Q24H ABX 1,000 mg at 02/15/20 2201 PHYSICAL EXAM: BP (!) 163/85 | Pulse 63 | Temp 36.6 C (97.8 F) (Temporal Artery) | Resp 16 | Ht 1.829 m (6') | Wt 102.7 kg (226 lb 8 oz) | SpO2 99% | BMI 30.72 kg/m General: NAD HEENT: Anicteric sclerae, NCAT Lungs: CTAB Cardio: RRR, strong symmetric pulses Abdomen: Soft, NTND Genitourinary: No lesions Musculoskeletal: Normal muscle mass, no synovitis Skin: right great toes site drsg, old drainage noted Neuro: AAOx3, no focal deficits Psych: Normal affect LABS/IMAGING - reviewed, pertinent results as below: CBC BMP PT/INR WBC x10^3 (/uL) Date Value 10/18/2012 6.3 WBC (10*3/L) Date Value 02/16/2020 3.91 (L) NA Date Value 02/16/2020 142 mmol/L 10/18/2012 138 MMOL/L No results found for: PT RBC x10^6 (/uL) Date Value 10/18/2012 4.62 RBC (10*6/L) Date Value 02/16/2020 3.09 (L) K Date Value 02/16/2020 4.7 mmol/L 10/18/2012 4.2 MMOL/L PT INR (no units) Date Value 07/13/2003 1.0 INR (no units) Date Value 06/12/2017 0.9 PLT x10^3 (/uL) Date Value 10/18/2012 212 PLT (10*3/L) Date Value 02/16/2020 243 CALCIUM Date Value 02/16/2020 8.1 mg/dL (L) 10/18/2012 9.1 MG/DL HGB Date Value 02/16/2020 9.5 g/dL (L) 10/18/2012 14.9 G/DL CL Date Value 02/16/2020 112 mmol/L (H) 10/18/2012 100 MMOL/L aPTT HCT (%) Date Value 02/16/2020 29.1 (L) 10/18/2012 41.3 BUN Date Value 02/16/2020 20 mg/dL 10/18/2012 24 MG/DL (H) APTT (SEC) Date Value 07/13/2003 22 APTT Patient (Seconds) Date Value 06/12/2017 22 (L) CREATININE Date Value 02/16/2020 1.35 mg/dL (H) 10/18/2012 0.70 MG/DL IMAGING- Hospital Encounter on 02/13/20 XR TOES 2 VW RIGHT Narrative EXAM: Right toes 2 views HISTORY: small toe infection/wound rule out osteomyelitis TECHNIQUE:AP and lateral views of the toes of the right foot are obtained. FINDINGS:Hammertoe deformities are noted. No bony erosive changes are seen. Degenerative changes are seen in the PIP and DIP joint of the little toe. Diffuse soft tissue swelling is seen in the forefoot particularly prominent surrounding the fourth and fifth toes. Impression 1. No definite radiographic evidence of osteomyelitis. If osteomyelitis is clinically suspected consider either 3 phase bone scan or MRI. CT FOOT RIGHT WO CONTRAST Narrative EXAM: CT FOOT RIGHT WO CONTRAST HISTORY: Osteomyelitis suspected, foot swelling, diabetic R 5th toe wound, evaluate for osteo COMPARISON: 02/13/2020 foot radiographs. FINDINGS: Contrast-enhanced multiplanar CT imaging of the right foot was performed. Diabetic type vascular calcifications are present. Remote medial malleolus corticated avulsions are present. Calcaneal enthesophyte formation is seen. No acute bony abnormality is present. Moderate joint space narrowing, subchondral sclerosis and marginal osteophyte formation involve the first MTP joint, great toe IP joint and hallux metatarsal sesamoid articulations. There is chronic cortical fragmentation at the plantar base of the great toe distal phalanx. Diffuse circumferential subcutaneous fat stranding is seen at the level of the ankle and foot. No rim-enhancing fluid collections are seen. Ulceration with superficial gas is seen along the lateral distal small toe with marked swelling. No aggressive periosteal reaction or vlad osteolysis is seen about the small toe. Impression Fifth toe ulceration with surrounding cellulitis with no CT findings of osteomyelitis. Cannot exclude early osteomyelitis. If clinical concern persists, MRI of the forefoot recommended as this is the study of choice for exclusion of early osteomyelitis. No abscess. ASSESSMENT/PLAN Gasper Fry is a 60 year old male with PMH as listed above, admitted to the hospital with: 1.Diabetic infection of right [id number] toe: definitely a wound, but unsure the stage of possible infection -- Will continue with IVzosyn/ vanco day 4 -- no evidence of osteomyelitis -- Pain control -- NS @ 125 ml/hr -- Dr Mcfadden signal intelligence analyst ordered santyl to wound Daily with debridement at bedside -- Will watch 1 more day, oral antibiotic for discharge -- Consult ID Dr Hernandez following recommended skilled facility for antibiotic and wound treatment 2. Diabetes: [id number] 11.1 -- Will order ISS -- 70/30 65 units BID -- Will resume other outpatient glycemic agent once medication has been reconciled with family 3. HTN: improving --metoprolol 50 mg BID -- Increase Losartan 75 mg daily 4. Acute renal failure: -- Holding any nephrotoxic agents -- Fluid hydration 5. Bipolar/ depression/ Schizophrenia Unclear psych history -- adderall 30 m g BID -- Cogentin 0.5 mg QHS -- Risperidone 4 mg QHS 6. Seizures -- Depakote 1000 mg BID Prophylaxis: DVT-heparin Stress Ulcer:no indication for prophylaxis Code Status:addressed:full code Disposition: placement to [facility] or [facility] CAFETERIA MANAGER was viewed during this stay GODWIN Collado Associated attestation - Zachariah Liang MD - 02/16/2020 6:09 PM CDTI personally evaluated and examined the patient on 02/16/2020 and agree with the note as detailed by the nurse practitioner. I actively participated in the decision- making process. In summary, patient was admitted for recurrent diabetic foot infection. ID recommended LTAC. However, patient is not qualified. SW consulted for placement. Rest of plan per below. Zachariah Liang M.D. 02/16/2020 6:08 PM Misty Zambrano LBSW - 02/16/2020 1:35 PM CDTSubjective Patient ID: Gasper Fry is a 60 year old male. Spoke extensively with patient regarding discharge recommendations per ID for LTAC and explained that due to patient not having an ICU stay, he would not meet criteria for LTAC placement. Provided alternative options for placement for continued IV ABX and wound care. Pt prefers placement at [facility] as first option and [facility] as second. Referral will be faxed accordingly. Will await determination. LOIS Huerta Preschool Assistant - Care Management [facility] [phone] [email or web address] Review of Systems Objective Physical Exam Assessment/Plan SNF placement LOIS [employer] - Care Management [facility] [phone] [email or web address] Jr., DPM - 2020 4:43 PM CDTS: Patient seen at bedside. Complains of bilateral leg pain, no pain in feet. No N/V/F/D O: Neurovascular status unchanged Excisional wound debrided at bedside to subcutaneous level. No purulence noted. No bone exposure. Fibrin noted distal lateral aspect of toe A: Sandhu grade II ulceration right foot P: Continue current iv antibiotics Continue santyl daily all foot wounds Will follow Yazmin Ward FNP - 2020 3:52 PM CDT [facility] Hospitalist Progress Note SUBJECTIVE: Patient seen at bedside no distress noted at this time. No overnight events CURRENT MEDICATIONS - reviewed. Current Facility-Administered Medications Medication Dose Route Frequency Last Rate Last Dose morpHINE injection 2 mg 2 mg Slow IV Push Q4HPRN 2 mg at 02/15/20 1340 acetaminophen (TYLENOL) tablet 650 mg 650 mg Oral Q6HPRN benztropine (COGENTIN) tablet 0.5 mg 0.5 mg Oral QHS 0.5 mg at 02/14/20 2113 clonazePAM (KLONOPIN) tablet 1 mg 1 mg Oral BIDPRN 1 mg at 02/15/20 0318 collagenase (SANTYL) ointment Topical (Apply To Affected Areas) DAILY dextroamphetamine-amphetamine (ADDERALL) 10 mg tablet 30 mg 30 mg Oral BID 30 mg at 02/14/202111 dextrose 50 % in water (D50W) injection 25 mL 25 mL Slow IV Push PRN 25 mL at 02/15/20 0837 divalproex ER (DEPAKOTE ER) 24 hr tablet 1,000 mg 1,000 mg Oral QHS 1,000 mg at 02/14/20 2111 glucagon (GLUCAGEN DIAGNOSTIC KIT) injection 1 mg 1 mg Intramuscular PRN heparin (porcine) injection 5,000 Units 5,000 Units Subcutaneous Q8H 5,000 Units at 02/15/20 0444 insulin NPH and regular human 70-30 (HUMULIN 70-30 U-100 INSULIN) 100 unit/mL (70-30) injection 65 Units 65 Units Subcutaneous BIDAC Stopped at 02/15/20 0730 losartan (COZAAR) tablet 50 mg 50 mg Oral DAILY 50 mg at 02/15/20 0836 metoprolol tartrate (LOPRESSOR) tablet 50 mg 50 mg Oral BID 50 mg at 02/15/20 0836 NaCl 0.9% (NS) IV infusion 1,000 mL 1,000 mL IV Infusion CONTINUOUS 125 mL/hr at 02/15/20 1340 1,000 mL at 02/15/20 1340 ondansetron (ZOFRAN (PF)) injection 4 mg 4 mg Slow IV Push Q6HPRN pantoprazole (PROTONIX) EC tablet 40 mg 40 mg Oral DAILY 40 mg at 02/15/20 0836 piperacillin-tazobactam (ZOSYN) 3.375 g in NaCl 0.9% (NS) 100 mL MINI-BAG 3.375 g IV Piggyback Q6H ABX 3.375 g at 02/15/20 1209 risperiDONE (RISPERDAL) tablet 4 mg 4 mg Oral QHS 4 mg at 02/14/20 2112 Sliding Scale Insulin-Regular + Fsbg Testing Subcutaneous AC+HS Stopped at 02/15/20 0730 traMADoL (ULTRAM) tablet 50 mg 50 mg Oral Q8HPRN 50 mg at 02/15/20 0318 vancomycin (VANCOCIN) 1,000 mg in NaCl 0.9% (NS) 250 mL VIAL-MATE IV piggyback 1,000 mg IV Piggyback Q24H ABX 1,000 mg at 02/14/202125 PHYSICAL EXAM: BP 138/73 | Pulse 59 | Temp 36.2 C (97.1 F) (Temporal Artery) | Resp 20 | Ht 1.829 m (6') |Wt 102.7 kg (226 lb 8 oz) | SpO2 97% | BMI 30.72 kg/m General: NAD, lethargic HEENT: Anicteric sclerae, NCAT Lungs: CTAB Cardio: RRR, strong symmetric pulses Abdomen: Soft, NTND Genitourinary: No lesions Musculoskeletal: Normal muscle mass, no synovitis Skin: right foot wound with drsg Neuro: AAOx3, no focal deficits Psych: Normal affect LABS/IMAGING - reviewed, pertinent results as below: CBC BMP PT/INR WBC x10^3 (/uL) Date Value 10/18/2012 6.3 WBC (10*3/L) Date Value 2020 4.08 (L) NA Date Value 2020 139 mmol/L 10/18/2012 138 MMOL/L No results found for: PT RBC x10^6 (/uL) Date Value 10/18/2012 4.62 RBC (10*6/L) Date Value 2020 2.94 (L) K Date Value 2020 4.0 mmol/L 10/18/2012 4.2 MMOL/L PT INR (no units) Date Value 07/13/2003 1.0 INR (no units) Date Value 06/12/2017 0.9 PLT x10^3 (/uL) Date Value 10/18/2012 212 PLT (10*3/L) Date Value 2020 224 CALCIUM Date Value 2020 7.9 mg/dL (L) 10/18/2012 9.1 MG/DL HGB Date Value 2020 9.1 g/dL (L) 10/18/2012 14.9 G/DL CL Date Value 2020 116 mmol/L (H) 10/18/2012 100 MMOL/L aPTT HCT (%) Date Value 2020 27.4 (L) 10/18/2012 41.3 BUN Date Value 2020 28 mg/dL (H) 10/18/2012 24 MG/DL (H) APTT (SEC) Date Value 07/13/2003 22 APTT Patient (Seconds) Date Value 06/12/2017 22 (L) CREATININE Date Value 2020 1.33 mg/dL (H) 10/18/2012 0.70 MG/DL IMAGING- Hospital Encounter on 02/13/20 XR TOES 2 VW RIGHT Narrative EXAM: Right toes 2 views HISTORY: small toe infection/wound rule out osteomyelitis TECHNIQUE:AP and lateral views of the toes of the right foot are obtained. FINDINGS:Hammertoe deformities are noted. No bony erosive changes are seen. Degenerative changes are seen in the PIP and DIP joint of the little toe. Diffuse soft tissue swelling is seen in the forefoot particularly prominent surrounding the fourth and fifth toes. Impression 1. No definite radiographic evidence of osteomyelitis. If osteomyelitis is clinically suspected consider either 3 phase bone scan or MRI. CT FOOT RIGHT WO CONTRAST Narrative EXAM: CT FOOT RIGHT WO CONTRAST HISTORY: Osteomyelitis suspected, foot swelling, diabetic R 5th toe wound, evaluate for osteo COMPARISON: 02/13/2020 foot radiographs. FINDINGS: Contrast-enhanced multiplanar CT imaging of the right foot was performed. Diabetic type vascular calcifications are present. Remote medial malleolus corticated avulsions are present. Calcaneal enthesophyte formation is seen. No acute bony abnormality is present. Moderate joint space narrowing, subchondral sclerosis and marginal osteophyte formation involve the first MTP joint, great toe IP joint and hallux metatarsal sesamoid articulations. There is chronic cortical fragmentation at the plantar base of the great toe distal phalanx. Diffuse circumferential subcutaneous fat stranding is seen at the level of the ankle and foot. No rim-enhancing fluid collections are seen. Ulceration with superficial gas is seen along the lateral distal small toe with marked swelling. No aggressive periosteal reaction or vlad osteolysis is seen about the small toe. Impression Fifth toe ulceration with surrounding cellulitis with no CT findings of osteomyelitis. Cannot exclude early osteomyelitis. If clinical concern persists, MRI of the forefoot recommended as this is the study of choice for exclusion of early osteomyelitis. No abscess. ASSESSMENT/PLAN Gasper Fry is a 59 year old male with PMH as listed above, admitted to the hospital with: 1.Diabetic infection of right foot 2nd toe: definitely a wound, but unsure the stage of possible infection -- Will continue with IV zosyn/ vanco day 3 -- no evidence of osteomyelitis -- Pain control -- NS @ 125 ml/hr -- Dr Mcfadden signal intelligence analyst ordered santyl to wound Daily with debridement at bedside -- Will watch 1 more day, oral antibiotic for discharge -- Consult ID Dr Hernandez per note will transition to oral and keep glycemic controlled 2. Diabetes: controlled A1c 11.1 -- Will order ISS -- 70/30 65 units BID -- Will resume other outpatient glycemic agent once medication has been reconciled with family 3. HTN: somewhat controlled -- metoprolol 50 mg BID -- Losartan 50 mg daily 4. Acute renal failure: -- Holding any nephrotoxic agents -- Fluid hydration 5. Bipolar/ depression/ Schizophrenia Unclear psych history -- adderall 30 m g BID -- Cogentin 0.5 mg QHS -- Risperidone 4 mg QHS 6. Seizures -- Depakote 1000 mg BID Prophylaxis: DVT- heparin Stress Ulcer: no indication for prophylaxis Code Status: addressed: full code Prophylaxis: DVT- heparin Stress Ulcer: no indication for prophylaxis Code Status: addressed: Full code Disposition: home, patient may need wound care [place] CAFETERIA MANAGER was viewed during this stay GODWIN Collado Associated attestation - Zachariah Liang MD - 2020 6:28 PM CDTI personally evaluated and examined the patient on 2020 and agree with the note as detailed by the nurse practitioner. I actively participated in the decision- making process. In summary, patient was admitted for recurrent diabetic foot infection. Rest of plan per below. Zachariah Liang M.D. 2020 6:27 PM Misty Zambrano LBSW - 2020 11:27 AM CDTSubjective Patient ID: Gasper Fry is a 59 year old male. Care Management Social Functional Assessment Patient Name: Gasper Fry Age: [age] year old Sex: male Patient's Previous Admission Date at [facility]: 08/13/2005 Current diagnosis and co-morbidities: R foot diabetic infection Readmission Questions: Was patient discharged from any acute care hospital within the last 30 days: No Social Functional Assessment: Primary language spoken/preferred: Georgian Mental Status: Alert & Oriented to Person,Place & Time Information given by: Self Patient's support system: Parent Name and number of support system: Susan Fry, Primary Director [employer]: Self MPOA: No Living Arrangement: Home Address of living arrangement : [address] [place] [id number] Persons living in home: Self Barriers to returning home: None Baseline functional status- ambulation: Independent Functional status-baseline personal care: Independent Baseline functional status- driving: Independent Baseline functional status- grocery shopping: Independent Functional status-baseline housekeeping: Independent Functional status-baseline meal prep: Independent Current functional status same as prior: No Current functional status- ambulation: Requires minimal to moderate assistance Current functional status- personal care: Requires minimal to moderate assistance Current functional status- driving: Dependent Current functional status- grocery shopping: Requires minimal to moderate assistance Current functional status-house keeping: Requires minimal to moderate assistance Current functional status- meal preparation: Requires minimal to moderate assistance Do you have a PCP?: Yes Name of PCP: Dr. Sylvain Dietrich Home Health Care Agency: Yes Name of Home Health Agency: Other Name of other Home Health Agency: [facility] [phone], fx: [phone] Previous or current Home Health Care Agency: Current Provider Services: No DME Company: No Equipment: None Hemodialysis: No Community resources utilized: None Funding Resources: Medicare A & B;Medicaid HMO Prescription coverage plan: Medicaid unlimited slots Pharmacy where meds are filled: Other Other pharmacy: [facility] Anticipated services prior to disharge: Continue Medical Eval Expected mode of discharge transportation: Same as support system Additional Recommendations for DC: Medical clearance, pt will resume services with [facility] forskilled nursing/wound care Additional info required for discharge planning: Pending medical evaluation Recommended discharge plan: Home;Update/Resume orders SFA Complete: Social Functional Assessment complete: Yes Alcohol Use Screening (AUDIT-C) How often do you have a drink containing alcohol?: Never SCORE: 0 Did patient elect to have resources provided: No Role of Care Management explained. Any issues or concerns with obtaining/affording your medications at home: no. Are you or your support system able to berry picker medications at discharge: yes. Review of Systems Objective Physical Exam Assessment/Plan Resume services with [facility] [phone] LOIS [employer] Assistant - Care Management [facility] [phone] [email or web address], POLICYHOLDER INFORMATION CLERK - 02/14/2020 1:[address] [facility] Hospitalist Progress Note SUBJECTIVE: Patient able to verbalize medication that he is taking. Patient also complaints of pain to foot at this time. CURRENT MEDICATIONS - reviewed. Current Facility-Administered Medications Medication Dose Route Frequency Last Rate Last Dose acetaminophen (TYLENOL) tablet 650 mg 650 mg Oral Q6HPRN collagenase (SANTYL) ointment Topical (Apply To Affected Areas) DAILY dextrose 50 % in water (D50W) injection 25 mL 25 mL Slow IV Push PRN glucagon (GLUCAGEN DIAGNOSTIC KIT) injection 1 mg 1 mg Intramuscular PRN heparin (porcine) injection 5,000 Units 5,000 Units Subcutaneous Q8H 5,000 Units at 02/14/20 0632 insulin NPH and regular human 70-30 (HUMULIN 70-30 U-100 INSULIN) 100 unit/mL (70-30) injection 65 Units 65 Units Subcutaneous BIDAC morpHINE injection 2 mg 2 mg Slow IV Push Q4HPRN 2 mg at 02/14/20 1036 NaCl 0.9% (NS) IV infusion 1,000 mL 1,000 mL IV Infusion CONTINUOUS 125 mL/hr at 02/14/20 1036 1,000 mL at 02/14/20 1036 ondansetron (ZOFRAN (PF)) injection 4 mg 4 mg Slow IV Push Q6HPRN piperacillin-tazobactam (ZOSYN) 3.375 g in NaCl 0.9% (NS) 100 mL MINI-BAG 3.375 g IV Piggyback Q6H ABX 3.375 g at 02/14/20 1036 Sliding Scale Insulin-Regular + Fsbg Testing Subcutaneous AC+HS Stopped at 02/14/20 0730 traMADoL (ULTRAM) tablet 50 mg 50 mg Oral Q8HPRN 50 mg at 02/14/20 0458 vancomycin (VANCOCIN) 1,000 mg in NaCl 0.9% (NS) 250 mL VIAL-MATE IV piggyback 1,000 mg IV Piggyback Q24H ABX PHYSICAL EXAM: BP (!) 147/77 | Pulse 77 | Temp 36.4 C (97.6 F) (Temporal Artery) | Resp 20 | Ht 1.829 m (6') | Wt 102.7 kg (226 lb 8 oz) | SpO2 99% | BMI 30.72 kg/m General: NAD HEENT: Anicteric sclerae, NCAT Lungs: CTAB Cardio: RRR, strong symmetric pulses Abdomen: Soft, NTND Genitourinary: No lesions Musculoskeletal: Normal muscle mass, no synovitis Skin: Right foot 2nd toe with wound JR scant drainage noted Neuro: AAOx3, no focal deficits Psych: Normal affect LABS/IMAGING - reviewed, pertinent results as below: CBC BMP PT/INR WBC x10^3 (/uL) Date Value 10/18/2012 6.3 WBC (10*3/L) Date Value 02/13/2020 5.78 NA Date Value 02/13/2020 135 mmol/L 10/18/2012 138 MMOL/L No results found for: PT RBC x10^6 (/uL) Date Value 10/18/2012 4.62 RBC (10*6/L) Date Value 02/13/2020 3.12 (L) K Date Value 02/13/2020 4.2 mmol/L 10/18/2012 4.2 MMOL/L PT INR (no units) Date Value 07/13/2003 1.0 INR (no units) Date Value 06/12/2017 0.9 PLT x10^3 (/uL) Date Value 10/18/2012 212 PLT (10*3/L) Date Value 02/13/2020 264 CALCIUM Date Value 02/13/2020 8.7 mg/dL 10/18/2012 9.1 MG/DL HGB Date Value 02/13/2020 9.7 g/dL (L) 10/18/2012 14.9 G/DL CL Date Value 02/13/2020 103 mmol/L 10/18/2012 100 MMOL/L aPTT HCT (%) Date Value 02/13/2020 28.0 (L) 10/18/2012 41.3 BUN Date Value 02/13/2020 55 mg/dL (H) 10/18/2012 24 MG/DL (H) APTT (SEC) Date Value 07/13/2003 22 APTT Patient (Seconds) Date Value 06/12/2017 22 (L) CREATININE Date Value 02/13/2020 2.77 mg/dL (H) 10/18/2012 0.70 MG/DL IMAGING- Hospital Encounter on 02/13/20 XR TOES 2 VW RIGHT Narrative EXAM: Right toes 2 views HISTORY: small toe infection/wound rule out osteomyelitis TECHNIQUE:AP and lateral views of the toes of the right foot are obtained. FINDINGS:Hammertoe deformities are noted. No bony erosive changes are seen. Degenerative changes are seen in the PIP and DIP joint of the little toe. Diffuse soft tissue swelling is seen in the forefoot particularly prominent surrounding the fourth and fifth toes. Impression 1. No definite radiographic evidence of osteomyelitis. If osteomyelitis is clinically suspected consider either 3 phase bone scan or MRI. CT FOOT RIGHT WO CONTRAST Narrative EXAM: CT FOOT RIGHT WO CONTRAST HISTORY: Osteomyelitis suspected, foot swelling, diabetic R 5th toe wound, evaluate for osteo COMPARISON: 02/13/2020 foot radiographs. FINDINGS: Contrast-enhanced multiplanar CT imaging of the right foot was performed. Diabetic type vascular calcifications are present. Remote medial malleolus corticated avulsions are present. Calcaneal enthesophyte formation is seen. No acute bony abnormality is present. Moderate joint space narrowing, subchondral sclerosis and marginal osteophyte formation involve the first MTP joint, great toe IP joint and hallux metatarsal sesamoid articulations. There is chronic cortical fragmentation at the plantar base of the great toe distal phalanx. Diffuse circumferential subcutaneous fat stranding is seen at the level of the ankle and foot. No rim-enhancing fluid collections are seen. Ulceration with superficial gas is seen along the lateral distal small toe with marked swelling. No aggressive periosteal reaction or vlad osteolysis is seen about the small toe. Impression Fifth toe ulceration with surrounding cellulitis with no CT findings of osteomyelitis. Cannot exclude early osteomyelitis. If clinical concern persists, MRI of the forefoot recommended as this is the study of choice for exclusion of early osteomyelitis. No abscess. ASSESSMENT/PLAN Gasper Fry is a 59 year old male with PMH as listed above, admitted to the hospital with: 1. Diabetic infection of right foot 2nd toe: definitely a wound, but unsure the stage of possible infection -- Will continue with IV zosyn/ vanco day 2 -- no evidence of osteomyelitis -- Pain control -- NS @ 125 ml/hr -- Dr Mcfadden signal intelligence analyst ordered santyl to wound Daily -- Consult ID Dr Hernandez will appreciate your input 2. Diabetes: controlled A1c 11.1 -- Will order ISS -- 70/30 65 units BID -- Will resume other outpatient glycemic agent once medication has been reconciled with family 3. HTN: somewhat controlled -- metoprolol 50 mg BID -- Losartan 50 mg daily 4. Acute renal failure: -- Holding any nephrotoxic agents -- Fluid hydration 5. Bipolar/ depression/ Schizophrenia Unclear psych history -- adderall 30 m g BID -- Cogentin 0.5 mg QHS -- Risperidone 4 mg QHS 6. Seizures -- Depakote 1000 mg BID Prophylaxis: DVT- heparin Stress Ulcer: no indication for prophylaxis Code Status: addressed: full code Disposition: home [place] CAFETERIA MANAGER was viewed during this stay GODWIN Collado Associated attestation - Chuck Flores MD - 02/14/2020 6:07 PM CDTI have independently seen and evaluated this patient. I agree with the note below including physicalexam and plan. In summary, patient is admitted for R 5th toe wound, Dr. Mcfadden to evaluate. Rest of plan per below. documented in this encounter H&P Notes Avis Guo MD - 02/14/2020 12:52 AM CDT MEDICINE ADC ADMIT H&P Date of Service: 02/14/2020 CHIEF COMPLAINT: right foot wound History of Present Illness 59 year-old male with pmh of DM, GERD, HTN, CVA, diabetic foot wounds who presents to the ED due to right foot pain. Patient appears to be a poor historian (chronic) and family was not available for aphone conversation, therefore, had to rely on previous notes and nursing staffs' account. Previous he has a history of left chronic foot wound for which he is being seen by wound care weekly at home as well as Dr. Mcfadden. However, recently, he was found to have a fifth toe wound. Unsure initial onsetor type of trauma involved to the leg. He was seen the day before at an [facility] for [facility] ([place]) for which he was given Bactrim for. Unsure if he took the Bactrim, but his mother brought him back to the ED due to continual swelling, redness, and pain to the leg despite that intial evaluation. PAST MEDICAL HISTORY Past Medical History: Diagnosis Date Back pain Diabetes mellitus Esophageal reflux Hypertension Pain management [place] patient, morhpine pump Stroke Past Surgical History: Procedure Laterality Date AMPUTATION TOE,I-P JT EYE SURGERY OPEN CARPAL TUNNEL RELEASE bilteral OTHER Right knee ligament repair NH HIT PAIN IMP PUMP ANGELY SPINE SURGERY Family History Problem Relation Age of Onset Diabetes Mother Stroke Father Hypertension Father Heart Father ALLERGIES No Known Allergies MEDICATIONS No current facility-administered medications on file prior to encounter. Current Outpatient Medications on File Prior to Encounter Medication Sig Dispense Refill insulin glargine 100 unit/mL injection inject 15 Units under the skin 2 (two) times daily. 10 mL0 dextroamphetamine-amphetamine (ADDERALL) 30 mg tablet Take 30 mg by mouth 2 (two) times daily. DULoxetine 60 mg capsule Take 60 mg by mouth daily. HYDROcodone-acetaminophen 10-325 mg tablet Take 1 tablet by mouth 3 (three) times daily. losartan 50 mg tablet Take 50 mg by mouth daily. metoprolol tartrate 50 mg tablet Take 50 mg by mouth 2 (two) times daily. diclofenac (VOLTAREN) 75 mg EC tablet Take 1 tablet by mouth 2 (two) times daily with meals. 60 tablet 1 benztropine (COGENTIN) 0.5 mg tablet TAKE 1 TABLET BY MOUTH TWICE A DAY 5 pantoprazole (PROTONIX) 40 mg EC tablet TAKE ONE (1) TABLET(S) BY MOUTH ONCE A DAY BEFORE MEALS. 0 risperiDONE (RISPERDAL) 4 mg tablet TAKE 1 TABLET BY MOUTH AT BEDTIME 5 traMADOL (ULTRAM) 50 mg tablet Take 1 tablet by mouth three times daily. 0 meclizine (ANTIVERT) 25 mg tablet Take 1 Tab by mouth 3 (three) times daily as needed for Dizziness. 12 Tab 0 ADDERALL 20 MG ORAL TAB take one tab by mouth twice daily 60 0 CLONAZEPAM 1 MG ORAL TAB 1 Tab Oral BIDPRN (Patient taking differently: Take 1 tablet by mouth three times daily.) 30 0 DEPAKOTE ER 500 MG ORAL TB24 take one tab oral qam and two tabs oral qpm (Patient taking differently: Take 2 tablets by mouth QHS) 90 1 FLUOXETINE 20 MG ORAL CAP 1 Cap Oral DAILY 30 1 QUETIAPINE 300 MG ORAL TAB 1 Tab Oral QHS 30 1 SOCIAL HISTORY Social History Socioeconomic History Marital status: Spouse name: Not on file Number of children: Not on file Years of education: Not on file Highest education level: Not on file Occupational History Occupation: Disabled Social Needs Financial resource strain: Not on file Food insecurity Worry: Not on file Inability: Not on file Transportation needs Medical: Not on file Non-medical: Not on file Tobacco Use Smoking status: Current Some Day Smoker Packs/day: 0.50 Types: Cigarettes Smokeless tobacco: Never Used Tobacco comment: smokes 5 cigarettes a day Substance and Sexual Activity Alcohol use: No Alcohol/week: 0.0 standard drinks Drug use: No Sexual activity: Not on file Lifestyle Physical activity Days per week: Not on file Minutes per session: Not on file Stress: Not on file Relationships Social connections Talks on phone: Not on file Gets together: Not on file Attends bahai service: Not on file Active member of club or organization: Not on file Attends meetings of clubs or organizations: Not on file Relationship status: Not on file Intimate partner violence Fear of current or ex partner: Not on file Emotionally abused: Not on file Physically abused: Not on file Forced sexual activity: Not on file Other Topics Concern Not on file Social History Narrative Not on file Review of Systems Unable to perform ROS: Other PHYSICAL EXAMINATION Vitals: 02/13/20 2215 02/13/20 2249 02/13/20 2305 02/13/20 2345 BP: (!) 152/90 (!) 140/104 (!) 146/71 137/90 Pulse: 82 80 79 79 Resp: 18 19 19 Temp: 36.4 C (97.5 F) TempSrc: Temporal Artery SpO2: 99% 95% 99% Weight: 102.7 kg (226 lb 8 oz) Height: Physical Exam Constitutional: He appears well-developed and well-nourished. He appears distressed (pain). HENT: Head: Normocephalic and atraumatic. Right Ear: External ear normal. Left Ear: External ear normal. Mouth/Throat: No oropharyngeal exudate. Eyes: Pupils are equal, round, and reactive to light. Conjunctivae and EOM are normal. Right eye exhibits no discharge. Left eye exhibits no discharge. Neck: Normal range of motion. Neck supple. Cardiovascular: Normal rate and regular rhythm. Pulmonary/Chest: Breath sounds normal. No respiratory distress. He exhibits no tenderness. Abdominal: Soft. He exhibits no distension. There is no abdominal tenderness. There is no guarding. Musculoskeletal: Normal range of motion. General: No edema. Neurological: He is alert. Skin: Skin is warm and dry. He is not diaphoretic. Right fifth toe: noted to desquamative changes to the leg. Appears that it could be swollen. No noted obvious discharge. LABS - reviewed pertinent labs as below: Reviewed IMAGING - reviewed, pertinent results as below: EXAM: Right toes 2 views HISTORY: small toe infection/wound rule out osteomyelitis TECHNIQUE:AP and lateral views of the toes of the right foot are obtained. FINDINGS:Hammertoe deformities are noted. No bony erosive changes are seen. Degenerative changes are seen in the PIP and DIP joint of the little toe. Diffuse soft tissue swelling is seen in the forefoot particularly prominent surrounding the fourth and fifth toes. IMPRESSION 1. No definite radiographic evidence of osteomyelitis. If osteomyelitis is clinically suspected consider either 3 phase bone scan or MRI. ASSESSMENT/PLAN Gasper Fry is a 59 year old male with PMH as listed above, admitted to the hospital with: 1. Diabetic infection of right foot: definitely a wound, but unsure the stage of possible infection -- Will continue with IV antibiotics -- Pain control 2. Diabetes: controlled -- Will order ISS -- Will resume other outpatient glycemic agent once medication has been reconciled with family 3. HTN: somewhat controlled -- Will resume outpatient antihypertensive agent once medication has been reconciled. 4. Acute renal failure: -- Holding any nephrotoxic agents -- Fluid hydration Prophylaxis: DVT- heparin Code Status: not addressed: patient refused conversation and could not get a hold of amily. documented in this encounter Procedure Notes Dewey Rascon RN - 02/18/2020 3:50 PM CDTVascular Access Services Date of Service: 02/18/2020 Procedure performed by: Ubaldo Rascon Rn Patient location: [place] [address] Indication/Diagnosis: jail antibiotics Consent: indications/complications discussed; verbal consent obtained from patient and indications/complications discussed; written consent obtained from patient Education provided to Gasper Ang, including pros and cons of PICC insertion. Questions encouraged and answered accordingly. Time Out was Performed According to Checklist: yes Co-signer: Lisa Alvarenga RN Any breaches/deviations from checklist noted: no Sterile technique was used : A cap and mask were donned, hand hygiene was performed and sterile gownand gloves were donned. The skin was prepped with 2% chlorhexidine and the solution was allowed to dry. A full body fenestrated drape was placed over the patient without contaminating the drape during placement. Anesthesia: local: 1% lidocaine Ultrasound utilized: yes [facility] Location used: yes 3CG Tip Location System used: yes Sterile dressing: yes Narrative: Patient was prepped using chlorhexidine and draped utilizing max-barrier precautions. A single-lumenBard PICC line was introduced with the Modified- Seldinger technique into the right brachial vein in one attempt(s). Guide wire was threaded without difficulty. The micro-introducer was then placed overthe guide wire, the guide wire was removed, and then the catheter was inserted through the micro-introducer. The micro-introducer was then peeled away and the PICC was secured using sutures and transparent dressing. Good flow was noted from the port(s) and the catheter flushed easily. Blood loss was minimal. Trimmed length: 35 cm. Baseline Arm Circumference: 36 cm. Complications: none Chest x-ray: ordered and pending Tip Confirmed and released using 3CG Tip Location System: no REF#: [id number] Lot #: [id number] Exp Date: 10/06/2020 documented in this encounter Consult Notes Gareth Prajapati FNP - 2020 1:44 PM CDTAssociated Order(s): CONSULT INFECTIOUS DISEASE Subjective: Patient is a 59 year old male who presents with bilateral foot wounds for the past few weeks. Patient has been seen by Dr. Mcfadden outpatient but reports worsening redness, swelling and pain.Patient reports he was supposed to follow up with vein specialist but did not go. I was consulted for bilateral foot wounds. Past Medical History: Diagnosis Date Back pain Diabetes mellitus Esophageal reflux Hypertension Pain management [place] patient, morhpine pump Stroke Past Surgical History: Procedure Laterality Date AMPUTATION TOE,I-P JT EYE SURGERY OPEN CARPAL TUNNEL RELEASE bilteral OTHER Right knee ligament repair NH HIT PAIN IMP PUMP ANGELY SPINE SURGERY Social History Socioeconomic History Marital status: Spouse name: Not on file Number of children: Not on file Years of education: Not on file Highest education level: Not on file Occupational History Occupation: Disabled Social Needs Financial resource strain: Not on file Food insecurity Worry: Not on file Inability: Not on file Transportation needs Medical: Not on file Non-medical: Not on file Tobacco Use Smoking status: Current Some Day Smoker Packs/day: 0.50 Types: Cigarettes Smokeless tobacco: Never Used Tobacco comment: smokes 5 cigarettes a day Substance and Sexual Activity Alcohol use: No Alcohol/week: 0.0 standard drinks Drug use: No Sexual activity: Not on file Lifestyle Physical activity Days per week: Not on file Minutes per session: Not on file Stress: Not on file Relationships Social connections Talks on phone: Not on file Gets together: Not on file Attends bahai service: Not on file Active member of club or organization: Not on file Attends meetings of clubs or organizations: Not on file Relationship status: Not on file Intimate partner violence Fear of current or ex partner: Not on file Emotionally abused: Not on file Physically abused: Not on file Forced sexual activity: Not on file Other Topics Concern Not on file Social History Narrative Not on file Family History Problem Relation Age of Onset Diabetes Mother Stroke Father Hypertension Father Heart Father No Known Allergies Current Facility-Administered Medications: morpHINE injection 2 mg, 2 mg, Slow IV Push, Q4HPRNSari Mercy, MD, 2 mg at 02/15/20 1340 acetaminophen (TYLENOL) tablet 650 mg, 650 mg, Oral, Q6HPSari TORIBIO Mercy, MD benztropine (COGENTIN) tablet 0.5 mg, 0.5 mg, Oral, QHS, Yazmin Coello FNP, 0.5 mg at 02/14/20 2113 clonazePAM (KLONOPIN) tablet 1 mg, 1 mg, Oral, BIDPRN, Yazmin Coello FNP, 1 mg at 02/15/20 0318 collagenase (SANTYL) ointment, , Topical (Apply To Affected Areas), DAILY, Jesus Mcfadden Jr.,DPNabeel dextroamphetamine-amphetamine (ADDERALL) 10 mg tablet 30 mg, 30 mg, Oral, BID, Yazmin Coello FNP, 30 mg at 02/14/20 2112 dextrose 50 % in water (D50W) injection 25 mL, 25 mL, Slow IV Push, PRN, Avis Guo MD, 25mL at 02/15/20 0837 divalproex ER (DEPAKOTE ER) 24 hr tablet 1,000 mg, 1,000 mg, Oral, QHS, Yazmin Coello FNP, 1,000 mg at 02/14/20 2111 glucagon (GLUCAGEN DIAGNOSTIC KIT) injection 1 mg, 1 mg, Intramuscular, PRN, Avis Guo MD heparin (porcine) injection 5,000 Units, 5,000 Units, Subcutaneous, Q8H, Avis Guo MD, 5,000 Units at 02/15/20 0444 insulin NPH and regular human 70-30 (HUMULIN 70-30 U-100 INSULIN) 100 unit/mL (70-30) tsuponlip58 Units, 65 Units, Subcutaneous, BIDAC, Yazmin Coello FNP, Stopped at 02/15/20 0730 losartan (COZAAR) tablet 50 mg, 50 mg, Oral, DAILY, Yazmin Coello FNP, 50 mg at 02/15/200836 metoprolol tartrate (LOPRESSOR) tablet 50 mg, 50 mg, Oral, BID, Yazmin Coello FNP, 50 mgat 02/15/20 0836 NaCl 0.9% (NS) IV infusion 1,000 mL, 1,000 mL, IV Infusion, CONTINUOUS, Avis Guo MD, Last Rate: 125 mL/hr at 02/15/20 1340, 1,000 mL at 02/15/20 1340 ondansetron (ZOFRAN (PF)) injection 4 mg, 4 mg, Slow IV Push, Q6HPRN, Avis Guo MD pantoprazole (PROTONIX) EC tablet 40 mg, 40 mg, Oral, DAILY, Yazmin Coello, POLICYHOLDER INFORMATION CLERK, 40 mg at02/15/20 0836 piperacillin-tazobactam (ZOSYN) 3.375 g in NaCl 0.9% (NS) 100 mL MINI-BAG, 3.375 g, IV Piggyback, Q6H ABX, Avis Guo MD, 3.375 g at 02/15/20 1209 risperiDONE (RISPERDAL) tablet 4 mg, 4 mg, Oral, QHS, Yazmin Coello, POLICYHOLDER INFORMATION CLERK, 4 mg at 02/14/20 2112 Sliding Scale Insulin-Regular + Fsbg Testing, , Subcutaneous, AC+HS, Avis Guo MD, Stopped at 02/15/20 0730 traMADoL (ULTRAM) tablet 50 mg, 50 mg, Oral, Q8HPRN, Avis Guo MD, 50 mg at 02/15/20 0318 vancomycin (VANCOCIN) 1,000 mg in NaCl 0.9% (NS) 250 mL VIAL-MATE IV piggyback, 1,000 mg, IV Piggyback, Q24H ABX, Chuck Flores MD, 1,000 mg at 02/14/206 ROS: CV: Denies chest pain RESP: Denies shortness of breath : Denies dysuria GI: Denies nausea and diarrhea Extremities: Reports erythema, swelling and pain to bilateral lower extremities for the past few weeks Objective: Vitals: 02/15/20 0012 02/15/20 0418 02/15/20 0757 02/15/20 1123 BP: 127/68 124/63 (!) 150/73 138/73 Pulse: 72 69 68 59 Resp: Temp: 36.8 C (98.2 F) 36.4 C (97.5 F) 36.4 C (97.5 F) 36.2 C (97.1 F) TempSrc: Temporal Artery Temporal Artery Temporal Artery Temporal Artery SpO2: 94% 98% 99% 97% Weight: Height: CBC WBC x10^3 (/uL) Date Value 10/18/2012 6.3 WBC (10*3/L) Date Value 2020 4.08 (L) RBC x10^6 (/uL) Date Value 10/18/2012 4.62 RBC (10*6/L) Date Value 2020 2.94 (L) PLT x10^3 (/uL) Date Value 10/18/2012 212 PLT (10*3/L) Date Value 2020 224 HGB Date Value 2020 9.1 g/dL (L) 10/18/2012 14.9 G/DL HCT (%) Date Value 2020 27.4 (L) 10/18/2012 41.3 CMP NA Date Value 2020 139 mmol/L 10/18/2012 138 MMOL/L K Date Value 2020 4.0 mmol/L 10/18/2012 4.2 MMOL/L CALCIUM Date Value 2020 7.9 mg/dL (L) 10/18/2012 9.1 MG/DL CL Date Value 2020 116 mmol/L (H) 10/18/2012 100 MMOL/L BUN Date Value 2020 28 mg/dL (H) 10/18/2012 24 MG/DL (H) CREATININE Date Value 2020 1.33 mg/dL (H) 10/18/2012 0.70 MG/DL GLUCOSE Date Value 2020 84 mg/dL 10/18/2012 289 MG/DL (H) CO2 TOTAL Date Value 2020 21 mmol/L (L) 10/18/2012 27 MMOL/L ALBUMIN Date Value 06/17/2017 3.0 g/dL (L) 10/18/2012 4.0 G/DL T PROTEIN Date Value 06/17/2017 5.3 g/dL (L) 10/18/2012 6.5 G/DL TOTAL BILI Date Value 06/17/2017 0.2 mg/dL 10/18/2012 0.3 MG/DL BILI UNCON Date Value 06/17/2017 0.0 mg/dL (L) 08/13/2005 0.1 MG/DL BILI CONJ Date Value 06/17/2017 0.0 mg/dL 08/13/2005 0.0 MG/DL ALT(SGPT) (U/L) Date Value 06/17/2017 33 10/18/2012 25 AST(SGOT) (U/L) Date Value 06/17/2017 19 10/18/2012 21 ALK PHOS (U/L) Date Value 06/17/2017 93 10/18/[address] right foot: EXAM: CT FOOT RIGHT WO CONTRAST HISTORY: Osteomyelitis suspected, foot swelling, diabetic R 5th toe wound, evaluate for osteo COMPARISON: 02/13/2020 foot radiographs. FINDINGS: Contrast-enhanced multiplanar CT imaging of the right foot was performed. Diabetic type vascular calcifications are present. Remote medial malleolus corticated avulsions are present. Calcaneal enthesophyte formation is seen. No acute bony abnormality is present. Moderate joint space narrowing, subchondral sclerosis and marginal osteophyte formation involve the first MTP joint, great toe IP joint and hallux metatarsal sesamoid articulations. There is chronic cortical fragmentation at the plantar base of the great toe distal phalanx. Diffuse circumferential subcutaneous fat stranding is seen at the level of the ankle and foot. No rim-enhancing fluid collections are seen. Ulceration with superficial gas is seen along the lateral distal small toe with marked swelling. No aggressive periosteal reaction or vlad osteolysis is seen about the small toe. IMPRESSION Fifth toe ulceration with surrounding cellulitis with no CT findings of osteomyelitis. Cannot exclude early osteomyelitis. If clinical concern persists, MRI of the forefoot recommended as this is the study of choice for exclusion of early osteomyelitis. ROS: General: Awake, cooporative CV: S1,S2 RESP: Good breath sounds ABD: nontender, bowel sounds present Extremities: swelling to bilateral lower extremities with stasis changes. Weak pedal pulses. Skin: Right foot lateral 5th toe ulcer with granulation tissue and serosanguinous drainage. Left foot second toe with ulcer, wound bed with granulation tissue Assessment and plan: Right foot 5th digit and Left foot second toe diabetic foot ulcer, continue santyl per Dr. Neville order Xray not suggestive of osteomyelitis Zosyn and Vancomycin day 2, continue IV for a couple more days Will consider changing to oral Diabetes mellitus, monitor glycemic control Educated the patient to keep leg elevated Will continue to monitor Thank you for consult Patient discussed with Dr. Hernandez documented in this encounter ED Notes Debbie Meier RN - 02/13/2020 4:45 PM CDTPatient with swelling to bilateral feet x 4 days with redness seen at [facility] yesterday and told that hehad MSRA but also told they could not give him antibiotics. Pain 11/16 to feet unable to ambulate. documented in this encounter Miscellaneous Notes Nursing Note - Lisa Alvarenga RN - 02/18/2020 4:57 PM CDTReport called to SHYANN Bellamy at [facility]. [facility] - Yazmin Aguilar RN - 02/18/2020 1:54 AM CDT Problem: Pain Goal: Control of pain at or below patient's documented comfort goal Outcome: Progressing as expected Goal: Reduction in pain sensation Outcome: Progressing as expected Problem: Discharge Planning Goal: Absence of venous thromboembolism Outcome: Progressing as expected Goal: Adequate for discharge Outcome: Progressing as expected Goal: Effective communication Outcome: Progressing as expected Problem: Infection Risk Goal: Absence of infection Outcome: Progressing as expected Problem: Skin integrity Impaired (Risk or Actual) Goal: Wound healing Outcome: Progressing as expected Goal: Prevention of new skin breakdown Outcome: Progressing as expected Joycelyn Jang RN - 02/17/2020 6:37 PM CDT Problem: Pain Goal: Control of pain at or below patient's documented comfort goal Outcome: Progressing as expected Goal: Reduction in pain sensation Outcome: Progressing as expected Problem: Discharge Planning Goal: Absence of venous thromboembolism Outcome: Progressing as expected Goal: Adequate for discharge Outcome: Progressing as expected Goal: Effective communication Outcome: Progressing as expected Problem: Infection Risk Goal: Absence of infection Outcome: Progressing as expected Problem: Skin integrity Impaired (Risk or Actual) Goal: Wound healing Outcome: Progressing as expected Goal: Prevention of new skin breakdown Outcome: Progressing as expected ARETTCYazmin Monterroso RN - 02/17/2020 1:23 AM CDT Problem: Pain Goal: Control of pain at or below patient's documented comfort goal Outcome: Progressing as expected Goal: Reduction in pain sensation Outcome: Progressing as expected Problem: Discharge Planning Goal: Absence of venous thromboembolism Outcome: Progressing as expected Goal: Adequate for discharge Outcome: Progressing as expected Goal: Effective communication Outcome: Progressing as expected Problem: Infection Risk Goal: Absence of infection Outcome: Progressing as expected Problem: Skin integrity Impaired (Risk or Actual) Goal: Wound healing Outcome: Progressing as expected Goal: Prevention of new skin breakdown Outcome: Progressing as expected Debbie Alvarenga RN - 02/16/2020 8:14 AM CDT Problem: Pain Goal: Control of pain at or below patient's documented comfort goal Outcome: Progressing as expected Goal: Reduction in pain sensation Outcome: Progressing as expected Problem: Discharge Planning Goal: Absence of venous thromboembolism Outcome: Progressing as expected Goal: Adequate for discharge Outcome: Progressing as expected Goal: Effective communication Outcome: Progressing as expected Problem: Infection Risk Goal: Absence of infection Outcome: Progressing as expected Problem: Skin integrity Impaired (Risk or Actual) Goal: Wound healing Outcome: Progressing as expected Goal: Prevention of new skin breakdown Outcome: Progressing as expected Yazmin Hogan RN - 02/16/2020 1:02 AM CDT Problem: Pain Goal: Control of pain at or below patient's documented comfort goal Outcome: Progressing as expected Goal: Reduction in pain sensation Outcome: Progressing as expected Problem: Discharge Planning Goal: Absence of venous thromboembolism Outcome: Progressing as expected Goal: Adequate for discharge Outcome: Progressing as expected Goal: Effective communication Outcome: Progressing as expected Problem: Infection Risk Goal: Absence of infection Outcome: Progressing as expected Problem: Skin integrity Impaired (Risk or Actual) Goal: Wound healing Outcome: Progressing as expected Goal: Prevention of new skin breakdown Outcome: Progressing as expected Debbie Alvarenga RN - 2020 8:36 AM CDT Problem: Pain Goal: Control of pain at or below patient's documented comfort goal Outcome: Progressing as expected Goal: Reduction in pain sensation Outcome: Progressing as expected Problem: Discharge Planning Goal: Absence of venous thromboembolism Outcome: Progressing as expected Goal: Adequate for discharge Outcome: Progressing as expected Goal: Effective communication Outcome: Progressing as expected Problem: Infection Risk Goal: Absence of infection Outcome: Progressing as expected Problem: Skin integrity Impaired (Risk or Actual) Goal: Wound healing Outcome: Progressing as expected Goal: Prevention of new skin breakdown Outcome: Progressing as expected ARETTCRoland Ji RN - 02/14/2020 8:27 PM CDT Problem: Pain Goal: Control of pain at or below patient's documented comfort goal Outcome: Progressing as expected Goal: Reduction in pain sensation Outcome: Progressing as expected Problem: Discharge Planning Goal: Absence of venous thromboembolism Outcome: Progressing as expected Goal: Adequate for discharge Outcome: Progressing as expected Goal: Effective communication Outcome: Progressing as expected Problem: Infection Risk Goal: Absence of infection Outcome: Progressing as expected Problem: Skin integrity Impaired (Risk or Actual) Goal: Wound healing Outcome: Progressing as expected Goal: Prevention of new skin breakdown Outcome: Progressing as expected are Latonia Britton RN - 02/14/2020 7:44 PM CDT Problem: Pain Goal: Control of pain at or below patient's documented comfort goal Outcome: Progressing as expected Goal: Reduction in pain sensation Outcome: Progressing as expected Problem: Discharge Planning Goal: Absence of venous thromboembolism Outcome: Progressing as expected Goal: Adequate for discharge Outcome: Progressing as expected Goal: Effective communication Outcome: Progressing as expected Problem: Infection Risk Goal: Absence of infection Outcome: Progressing as expected Problem: Skin integrity Impaired (Risk or Actual) Goal: Wound healing Outcome: Progressing as expected Goal: Prevention of new skin breakdown Outcome: Progressing as expected are Roland Felder RN - 02/14/2020 2:22 AM CDT Problem: Pain Goal: Control of pain at or below patient's documented comfort goal Outcome: Progressing as expected Goal: Reduction in pain sensation Outcome: Progressing as expected Problem: Discharge Planning Goal: Absence of venous thromboembolism Outcome: Progressing as expected Goal: Adequate for discharge Outcome: Progressing as expected Goal: Effective communication Outcome: Progressing as expected Problem: Infection Risk Goal: Absence of infection Outcome: Progressing as expected Problem: Skin integrity Impaired (Risk or Actual) Goal: Wound healing Outcome: Progressing as expected Goal: Prevention of new skin breakdown Outcome: Progressing as expected D Nurse Note - Aleksandra Nassar RN - 02/13/2020 11:28 PM CDTPatient admitted to [facility] for diagnosis of foot swelling. Patient agrees to admission, discussed plan of care with patient and family. Patient is awake, alert, oriented, resp reg unlabored, color appropriate for race, PIV intact. No adverse reaction to medications administered while in ED. Belongings with patient to unit. Report to Roland TORIBIO. D Nurse Note - Aleksandra Nassar RN - 02/13/2020 10:49 PM CDTPatient complaining of urinary urgency and is unable to void continent, Provider notified and the patient was catheterized to drain 1700 ml. Of urine. documented in this encounter Plan of Treatment Name Type Priority Associated Diagnoses Order S chedule CBC with Differential LAB Routine EVERY MORNING AT 0400 for 5 Occurrenc es starting 2019 until 0, 4 completed Basic Metabolic Panel (NA, LAB Routine E VERY MORNING AT 0400 K, CL, CO2, GLUCOSE, BUN, fo r 5 Occurrences CREATININE, CA) starting 01/2020 until 0, 4 completed Vancomycin Trough Level - LAB Routine ON CE for 1 Occurrences Draw within 30 minutes start ing 02/14/2020 prior to 4TH dose. until 12/2019 Vancomycin Trough Level - LAB Routine ON CE for 1 Occurrences Draw immediately prior to st arting 02/19/2020 the 0400 dose, but, no until 02/19/2020 more than 60 minutes before Health Maintenance Due Date Last Done Comments HEPATITIS C (HCV) SCREEN 1961 EYE EXAM 1971 Depression Screening 1973 FOOT EXAM 1979 DTaP,Tdap,and Td Vaccines (1 - 02/16/1980 Tdap) LDL-C 01/10/2006 01/10/2005, 12/07/2003, 07/14/2003 URINE MICROALBUMIN 07/11/2006 07/11/2005, 02/23/2004 COLON CANCER SCREENING ANNUAL 2011 FIT/FOBT COLON CANCER SCREENING FIT DNA 2011 EVERY 3 YEARS COLON CANCER SCREENING 2011 SIGMOIDOSCOPY EVERY 5 YEARS COLONOSCOPY 2011 Colorectal Cancer Screening 2011 Zoster Recombinant Vaccine 2011 (SHINGRIX) (1 of 2) LUNG CANCER SCREEN: Recommended 02/16/2016 for age 55-80 with 30 + pack year history PNEUMOCOCCAL 0-64 YEARS COMBINED 09/06/2019 07/12/2019, SERIES (1 of 1 - PPSV23) INFLUENZA VACCINE (#1) 2020 HgA1C 08/13/2020 02/14/2020, 10/18/2019, 06/17/2017, Additional history exists CREATININE (SERUM) 02/16/2021 02/17/2020, 02/16/2020, 2020, Additional history exists documented as of this encounter Implants Implanted Type Area Propeller Mechanic Device Identifier Shelf Exp iration Model / Date Serial / L ot Pain Pump Pain Pump documented as of this encounter Procedures Procedure Name Priority Date/Time Associated Diagnosis Comme nts POCT GLUCOSE Routine 02/18/2020 4:40 Results for this (AUTOMATED) PM CDT procedure are i n the results section. XR CHEST 1 VW STAT 02/18/2020 3:32 Toe infection Results f or this PM CDT procedure are i n the results section. POCT GLUCOSE Routine 02/18/2020 12:02 Results for this (AUTOMATED) PM CDT procedure are i n the results section. POCT GLUCOSE Routine 02/18/2020 8:11 Results for this (AUTOMATED) AM CDT procedure are i n the results section. CBC WITH DIFF Routine 02/18/2020 4:43 Results fo r this AM CDT procedure are i n the results section. BASIC METABOLIC PANEL Routine 02/18/2020 4:43 Re sults for this (NA, K, CL, CO2, AM CDT procedure a re in GLUCOSE, BUN, the results CREATININE, CA) section. POCT GLUCOSE Routine 02/17/2020 7:46 Results for this (AUTOMATED) PM CDT procedure are i n the results section. POCT GLUCOSE Routine 02/17/2020 5:10 Results for this (AUTOMATED) PM CDT procedure are i n the results section. POCT GLUCOSE Routine 02/17/2020 3:40 Results for this (AUTOMATED) PM CDT procedure are i n the results section. POCT GLUCOSE Routine 02/17/2020 10:54 Results for this (AUTOMATED) AM CDT procedure are i n the results section. POCT GLUCOSE Routine 02/17/2020 7:40 Results for this (AUTOMATED) AM CDT procedure are i n the results section. CBC WITH DIFF Routine 02/17/2020 3:57 Results fo r this AM CDT procedure are i n the results section. BASIC METABOLIC PANEL Routine 02/17/2020 3:57 Re sults for this (NA, K, CL, CO2, AM CDT procedure a re in GLUCOSE, BUN, the results CREATININE, CA) section. VANCOMYCIN TROUGH Routine 02/16/2020 8:31 Result s for this PM CDT procedure are i n the results section. POCT GLUCOSE Routine 02/16/2020 7:54 Results for this (AUTOMATED) PM CDT procedure are i n the results section. POCT GLUCOSE Routine 02/16/2020 3:19 Results for this (AUTOMATED) PM CDT procedure are i n the results section. POCT GLUCOSE Routine 02/16/2020 7:53 Results for this (AUTOMATED) AM CDT procedure are i n the results section. CBC WITH DIFF Routine 02/16/2020 3:55 Results fo r this AM CDT procedure are i n the results section. BASIC METABOLIC PANEL Routine 02/16/2020 3:55 Re sults for this (NA, K, CL, CO2, AM CDT procedure a re in GLUCOSE, BUN, the results CREATININE, CA) section. POCT GLUCOSE Routine 02/16/2020 2:56 Results for this (AUTOMATED) AM CDT procedure are i n the results section. POCT GLUCOSE Routine 2020 8:37 Results for this (AUTOMATED) PM CDT procedure are i n the results section. POCT GLUCOSE Routine 2020 4:51 Results for this (AUTOMATED) PM CDT procedure are i n the results section. POCT GLUCOSE Routine 2020 11:25 Results for this (AUTOMATED) AM CDT procedure are i n the results section. POCT GLUCOSE Routine 2020 8:07 Results for this (AUTOMATED) AM CDT procedure are i n the results section. CBC WITH DIFF Routine 2020 3:13 Results fo r this AM CDT procedure are i n the results section. BASIC METABOLIC PANEL Routine 2020 3:13 Re sults for this (NA, K, CL, CO2, AM CDT procedure a re in GLUCOSE, BUN, the results CREATININE, CA) section. POCT GLUCOSE Routine 02/14/2020 9:25 Results for this (AUTOMATED) PM CDT procedure are i n the results section. POCT GLUCOSE Routine 02/14/2020 4:41 Results for this (AUTOMATED) PM CDT procedure are i n the results section. POCT GLUCOSE Routine 02/14/2020 11:16 Results for this (AUTOMATED) AM CDT procedure are i n the results section. CT FOOT RIGHT WO Routine 02/14/2020 9:45 Diabetic infection R esults for this CONTRAST AM CDT of right foot procedure are in the results section. POCT GLUCOSE Routine 02/14/2020 7:50 Results for this (AUTOMATED) AM CDT procedure are i n the results section. GLYCOSYLATED Routine 02/14/2020 4:53 Results for this HEMOGLOBIN (A1C) AM CDT procedure a re in the results section. COVID-19 (ID NOW STAT 02/13/2020 8:20 Diabetic foot Result s for this RAPID TESTING) PM CDT infection procedure are in the results section. XR TOES 2 VW RIGHT STAT 02/13/2020 6:47 Toe infectio n Results for this PM CDT Other specified procedure ar e in diabetes mellitus the result s with other specified section . complication, unspecified whether jail insulin use CBC WITH DIFF STAT 02/13/2020 5:54 Toe infection Results for this PM CDT Other specified procedure ar e in diabetes mellitus the result s with other specified section . complication, unspecified whether buttermaker continuous churn insulin use BASIC METABOLIC PANEL STAT 02/13/2020 5:54 Toe infec tion Results for this (NA, K, CL, CO2, PM CDT Other specified procedur e are in GLUCOSE, BUN, diabetes mellitus the resul ts CREATININE, CA) with other specified sect ion. complication, unspecified whether jail insulin use documented in this encounter Results POCT GLUCOSE (AUTOMATED) (02/18/2020 4:40 PM CDT) Pathologist Sig nature POCT GLU 165 (H) 70 - 110 mg/dL [facility] Specimen Blood Performing Organization Address City/State/Zipcode Phone Number [facility] CLIA: [id number] [place] [address] XR CHEST 1 VW (02/18/2020 3:32 PM CDT) Specimen Impressions Performed At PACS/VR/DOSE The right PICC line tip terminates in th e atriocaval junction. No pneumothorax. Interstitial pulmonary edema and cardiom egaly. Preliminary Report Dictated by Resident: Jone Sosa MD., have reviewed this study and agree with the above report. Narrative Performed At XR CHEST 1 VW PACS/VR/DOSE HISTORY: 60 years-old; Male; PICC PLACEM ENT COMPARISON: Chest radiograph 06/17/2017 FINDINGS: Underpenetration of the x-ray beams due to large body habitus. The right PICC line tip projects at the atriocaval junction. Interstitial vascular congestion and cep halization is noted. No focal consolidation is identified. No pleural effusion or pn eumothorax is seen. The cardiomediastinal silhouette is enla rged. Procedure Note [facility], Radiant Results Inft User - 2019 3:58 PM CDT XR CHEST 1 VW HISTORY: 60 years-old; Male; PICC PLACEM ENT COMPARISON: Chest radiograph 06/17/2017 FINDINGS: Underpenetration of the x-ray beams due to large body habitus. The right PICC line tip projects at the atriocaval junction. Interstitial vascular congestion and cep halization is noted. No focal consolidation is identified. No pleural effusion or pneumothorax is seen. The cardiomediastinal silhouette is enla rged. IMPRESSION The right PICC line tip terminates in th e atriocaval junction. No pneumothorax. Interstitial pulmonary edema and cardiom egaly. Preliminary Report Dictated by Resident: Jone Sosa MD., have revie wed this study and agree with the above report. Performing Organization Address City/[facility] Phone Number PACS/VR/DOSE POCT GLUCOSE (AUTOMATED) (02/18/2020 12:02 PM CDT) Pathologist Sig nature POCT GLU 105 70 - 110 mg/dL [facility] Specimen Blood Performing Organization Address City/[facility] Phone Number [facility] CLIA: [id number] [place] [address] LABORATORY [address] [facility] POCT GLUCOSE (AUTOMATED) (02/18/2020 8:11 AM CDT) [facility] POCT GLU 80 70 - 110 mg/dL [facility] Specimen Blood Performing Organization Address [facility] Phone Number [facility] CLIA: [id number] [place] [address] LABORATORY [address] [facility] Basic Metabolic Panel (NA, K, CL, CO2, GLUCOSE, BUN, CREATININE, CA) (02/18/2020 4:43 AM CDT) [facility] NA 139 135 - 145 [facility] mmol/L [facility] K 3.8 3.5 - 5.0 [facility] mmol/L [facility] CL 109 (H) 98 - 108 mmol/L [facility] CO2 TOTAL 22 (L) 23 - 31 mmol/L [facility] AGAP 8 2 - 16 [facility] BUN 16 7 - 23 mg/dL [facility] GLUCOSE 147 (H) 70 - 110 mg/dL [facility] CREATININE 1.13 0.60 - 1.25 [facility] mg/dL [facility] CALCIUM 8.2 (L) 8.6 - 10.6 [facility] mg/dL [facility] eGFR Calculation 66.4 mL/min/1.73m2 [facility] ([facility] [place] [facility] [place] [facility] [place] eGFR Calculation 80.5 mL/min/1.73m2 [facility] () [facility] Specimen Blood - HAND, LEFT Narrative Performed At Association of Glomerular Filtration Rate (GFR) [facility] and Staging of Kidney Disease* + + +- + | GFR (mL/min/1.73 m2) | With Kidney Damage | Without Kidney Damage + + +- + | >90 | Stage one | Normal + + +- + | 60-89 | Stage two | Decreased GFR + + +- + | 30-59 | Stage three | Stage three + + +- + | 15-29 | Stage four | Stage four + + +- + | <15 (or dialysis) | Stage five | Stage five + + +- + *Each stage assumes the associated GFR level has been in effect for at least three months. Stages 1 to 5, with or without kidney disease, indicate chronic kidney disease. Notes: Determination of stages one and two (with eGFR >59mL/min/1.73 m2) requires estimation of kidney damage for at least three months as defined by structural or functional abnormalities of the kidney, manifested by either: Pathological abnormalities or Markers of kidney damage (including abnormalities in the composition of the blood or urine or abnormalities in imaging tests). Performing Organization Address City/State/Zipcode Phone Number [facility] CLIA: [id number] [place] [address] CBC with Differential (02/18/2020 4:43 AM CDT) Pathologist Sig nature WBC 5.56 4.20 - 10.70 [facility] 10*3/L [facility] RBC 3.02 (L) 4.26 - 5.52 [facility] 10*6/L [facility] HGB 9.4 (L) 12.2 - 16.4 [facility] g/dL [facility] HCT 27.3 (L) 38.4 - 49.3 % [facility] MCV 90.4 81.7 - 95.6 fL [facility] MCH 31.1 26.1 - 32.7 pg [facility] MCHC 34.4 31.2 - 35.0 [facility] g/dL [facility] RDW-SD 42.6 38.5 - 51.6 fL [facility] RDW-CV 12.9 12.1 - 15.4 % [facility] PLT 274 150 - 328 [facility] 10*3/L [facility] MPV 11.0 9.8 - 13.0 fL [facility] NRBC/100 WBC 0.0 0.0 - 10.0 /100 [facility] WBCs [facility] NRBC x10^3 <0.01 10*3/L [facility] GRAN MAT (NEUT) % 60.0 % [facility] IMM GRAN % 1.10 % [facility] LYMPH % 22.5 % [facility] MONO % 14.4 % [facility] EOS % 1.8 % [facility] BASO % 0.2 % [facility] GRAN MAT x10^3(ANC) 3.34 1.99 - 6.95 [facility] 10*3/uL HOSPITAL LABORATORY IMM GRAN x10^3 0.06 0.00 - 0.06 [facility] 10*3/uL HOSPITAL LABORATORY LYMPH x10^3 1.25 1.09 - 3.23 [facility] 10*3/uL HOSPITAL LABORATORY MONO x10^3 0.80 0.36 - 1.02 [facility] 10*3/uL HOSPITAL LABORATORY EOS x10^3 0.10 0.06 - 0.53 [facility] 10*3/uL HOSPITAL LABORATORY BASO x10^3 <0.03 0.01 - 0.09 [facility] 10*3/uL [facility] Specimen Blood - HAND, LEFT Performing Organization Address [facility] [place] Phone Number [facility] CLIA: [id number] [place] [address] POCT GLUCOSE (AUTOMATED) (02/17/2020 7:46 PM CDT) Pathologist Sig nature POCT GLU 202 (H) 70 - 110 mg/dL [facility] Specimen Blood Performing Organization Address [facility] [place] Phone Number [facility] CLIA: [id number] [place] [address] POCT GLUCOSE (AUTOMATED) (02/17/2020 5:10 PM CDT) Pathologist Sig nature POCT GLU 178 (H) 70 - 110 mg/dL [facility] Specimen Blood Performing Organization Address [facility] [place] Phone Number [facility] CLIA: [id number] [place] [id number] LABORATORY [address] POCT GLUCOSE (AUTOMATED) (02/17/2020 3:40 PM CDT) Pathologist Sig nature POCT GLU 55 (L) 70 - 110 mg/dL [facility] Specimen Blood Performing Organization Address [facility] [place] Phone Number [facility] CLIA: [id number] [place] [address] POCT GLUCOSE (AUTOMATED) (02/17/2020 10:54 AM CDT) Pathologist Sig nature POCT GLU 225 (H) 70 - 110 mg/dL [facility] Specimen Blood Performing Organization Address [facility] Phone Number [facility] CLIA: [id number] [place] [address] LAB[address] [facility] [address] POCT GLUCOSE (AUTOMATED) (02/17/2020 7:40 AM CDT) Pathologist Sig nature POCT GLU 165 (H) 70 - 110 mg/dL [facility] Specimen Blood Performing Organization Address [facility] Phone Number [facility] CLIA: [id number] [place] [address] LABORATORY [address] [facility] Basic Metabolic Panel (NA, K, CL, CO2, GLUCOSE, BUN, CREATININE, CA) (02/17/2020 3:57 AM CDT) NA 142 135 - 145 [facility] mmol/L [facility] K 3.9 3.5 - 5.0 [facility] mmol/L [facility] CL 112 (H) 98 - 108 mmol/L [facility] CO2 TOTAL 24 23 - 31 mmol/L [facility] AGAP 6 2 - 16 [facility] BUN 18 7 - 23 mg/dL [facility] GLUCOSE 56 (L) 70 - 110 mg/dL [facility] CREATININE 1.26 (H) 0.60 - 1.25 [facility] mg/dL [facility] CALCIUM 8.2 (L) 8.6 - 10.6 [facility] mg/dL [facility] eGFR Calculation 58.6 mL/min/1.73m2 [facility] ([facility] [place] [facility] [place] [facility] [place]) eGFR Calculation 71.0 mL/min/1.73m2 [facility] () [facility] Specimen Blood - ARM, LEFT Narrative Performed At Association of Glomerular Filtration Rate (GFR) [facility] and Staging of Kidney Disease* + + +- + | GFR (mL/min/1.73 m2) | With Kidney Damage | Without Kidney Damage + + +- + | >90 | Stage one | Normal + + +- + | 60-89 | Stage two | Decreased GFR + + +- + | 30-59 | Stage three | Stage three + + +- + | 15-29 | Stage four | Stage four + + +- + | <15 (or dialysis) | Stage five | Stage five + + +- + *Each stage assumes the associated GFR level has been in effect for at least three months. Stages 1 to 5, with or without kidney disease, indicate chronic kidney disease. Notes: Determination of stages one and two (with eGFR >59mL/min/1.73 m2) requires estimation of kidney damage for at least three months as defined by structural or functional abnormalities of the kidney, manifested by either: Pathological abnormalities or Markers of kidney damage (including abnormalities in the composition of the blood or urine or abnormalities in imaging tests). Performing Organization Address City/State/Zipcode Phone Number [facility] CLIA: [id number] [place] [address] CBC with Differential (02/17/2020 3:57 AM CDT) Pathologist Sig nature WBC 5.14 4.20 - 10.70 [facility] 10*3/L [facility] RBC 3.04 (L) 4.26 - 5.52 [facility] 10*6/L [facility] HGB 9.3 (L) 12.2 - 16.4 [facility] g/dL [facility] HCT 28.0 (L) 38.4 - 49.3 % [facility] MCV 92.1 81.7 - 95.6 fL [facility] MCH 30.6 26.1 - 32.7 pg [facility] MCHC 33.2 31.2 - 35.0 [facility] g/dL [facility] RDW-SD 43.8 38.5 - 51.6 fL [facility] RDW-CV 12.9 12.1 - 15.4 % [facility] PLT 269 150 - 328 [facility] 10*3/L [facility] MPV 10.5 9.8 - 13.0 fL [facility] NRBC/100 WBC 0.0 0.0 - 10.0 /100 [facility] WBCs [facility] NRBC x10^3 <0.01 10*3/L [facility] GRAN MAT (NEUT) % 58.9 % [facility] IMM GRAN % 1.20 % [facility] LYMPH % 25.7 % [facility] MONO % 11.5 % [facility] EOS % 2.3 % [facility] BASO % 0.4 % [facility] GRAN MAT x10^3(ANC) 3.03 1.99 - 6.95 [facility] 10*3/uL HOSPITAL LABORATORY IMM GRAN x10^3 0.06 0.00 - 0.06 [facility] 10*3/uL HOSPITAL LABORATORY LYMPH x10^3 1.32 1.09 - 3.23 [facility] 10*3/uL HOSPITAL LABORATORY MONO x10^3 0.59 0.36 - 1.02 [facility] 10*3/uL HOSPITAL LABORATORY EOS x10^3 0.12 0.06 - 0.53 [facility] 10*3/uL HOSPITAL LAB[facility]ATORY BASO x10^3 <0.03 0.01 - 0.09 [facility] 10*3/uL [facility] Specimen Blood - ARM, LEFT Performing Organization Address [facility] Phone Number [facility] CLIA: [id number] [place] [id number] LABORATORY [address] Vancomycin Trough Level - Draw no more than 60 minutes before the 2000 dose. (02/16/2020 8:31 PM CDT) [facility] VANCO TROUGH 5.4 (L) 10.0 - 20.0 ug/mL [facility] Specimen Blood - ARM, LEFT Narrative Performed At Toxic Range: >20 ug/mL [facility] 15-20 ug/mL is recommended for severe infection or when Vancomycin KUNAL is greater than or equal to 2. Performing Organization Address [facility] Phone Number [facility] CLIA: [id number] [place] [address] POCT GLUCOSE (AUTOMATED) (02/16/2020 7:54 PM CDT) [facility] POCT GLU 163 (H) 70 - 110 mg/dL [facility] Specimen Blood Performing Organization Address City/[facility] Phone Number [facility] CLIA: [id number] [place] [address] LABOR[address] POCT GLUCOSE (AUTOMATED) (02/16/2020 3:19 PM CDT) Pathologist Sig nature POCT GLU 145 (H) 70 - 110 mg/dL [facility] Specimen Blood Performing Organization Address [facility] Centercode Phone Number [facility] CLIA: [id number] [place] [address] LABOR[address]ORY [address] POCT GLUCOSE (AUTOMATED) (02/16/2020 7:53 AM CDT) Pathologist Sig nature POCT GLU 74 70 - 110 mg/dL [facility] Specimen Blood Performing Organization Address [facility] Phone Number [facility] CLIA: [id number] [place] [address] LABORATORY [address] [facility] Basic Metabolic Panel (NA, K, CL, CO2, GLUCOSE, BUN, CREATININE, CA) (02/16/2020 3:55 AM CDT) NA 142 135 - 145 [facility] mmol/L [facility] K 4.7 3.5 - 5.0 [facility] mmol/L [facility] CL 112 (H) 98 - 108 mmol/L [facility] CO2 TOTAL 22 (L) 23 - 31 mmol/L [facility] AGAP 8 2 - 16 [facility] BUN 20 7 - 23 mg/dL [facility] GLUCOSE 70 70 - 110 mg/dL [facility] CREATININE 1.35 (H) 0.60 - 1.25 [facility] mg/dL [facility] CALCIUM 8.1 (L) 8.6 - 10.6 [facility] mg/dL [facility] eGFR Calculation 54.1 mL/min/1.73m2 [facility] ([facility] [place] [facility] [place] [facility] [place] eGFR Calculation 65.6 mL/min/1.73m2 [facility] () [facility] Specimen Blood - ARM, LEFT Narrative Performed At Association of Glomerular Filtration Rate (GFR) [facility] and Staging of Kidney Disease* + + +- + | GFR (mL/min/1.73 m2) | With Kidney Damage | Without Kidney Damage + + +- + | >90 | Stage one | Normal + + +- + | 60-89 | Stage two | Decreased GFR + + +- + | 30-59 | Stage three | Stage three + + +- + | 15-29 | Stage four | Stage four + + +- + | <15 (or dialysis) | Stage five | Stage five + + +- + *Each stage assumes the associated GFR level has been in effect for at least three months. Stages 1 to 5, with or without kidney disease, indicate chronic kidney disease. Notes: Determination of stages one and two (with eGFR >59mL/min/1.73 m2) requires estimation of kidney damage for at least three months as defined by structural or functional abnormalities of the kidney, manifested by either: Pathological abnormalities or Markers of kidney damage (including abnormalities in the composition of the blood or urine or abnormalities in imaging tests). Performing Organization Address City/State/Zipcode Phone Number [facility] CLIA: [id number] [place] [address] CBC with Differential (02/16/2020 3:55 AM CDT) Pathologist Sig nature WBC 3.91 (L) 4.20 - 10.70 [facility] 10*3/L [facility] RBC 3.09 (L) 4.26 - 5.52 [facility] 10*6/L [facility] HGB 9.5 (L) 12.2 - 16.4 [facility] g/dL [facility] HCT 29.1 (L) 38.4 - 49.3 % [facility] MCV 94.2 81.7 - 95.6 fL [facility] MCH 30.7 26.1 - 32.7 pg [facility] MCHC 32.6 31.2 - 35.0 [facility] g/dL [facility] RDW-SD 45.4 38.5 - 51.6 fL [facility] RDW-CV 13.2 12.1 - 15.4 % [facility] PLT 243 150 - 328 [facility] 10*3/L [facility] MPV 11.4 9.8 - 13.0 fL [facility] NRBC/100 WBC 0.0 0.0 - 10.0 /100 [facility] WBCs [facility] NRBC x10^3 <0.01 10*3/L [facility] GRAN MAT (NEUT) % 58.0 % [facility] IMM GRAN % 0.50 % [facility] LYMPH % 25.6 % [facility] MONO % 13.6 % [facility] EOS % 2.0 % [facility] BASO % 0.3 % [facility] GRAN MAT x10^3(ANC) 2.27 1.99 - 6.95 [facility] 10*3/uL HOSPITAL LABORATORY IMM GRAN x10^3 <0.03 0.00 - 0.06 [facility] 10*3/uL HOSPITAL LAB[facility]ATORY LYMPH x10^3 1.00 (L) 1.09 - 3.23 [facility] 103/uL [facility] MONO x10^3 0.53 0.36 - 1.02 [facility] 10*3/uL [facility] EOS x10^3 0.08 0.06 - 0.53 [facility] 10*3/uL [facility] BASO x10^3 <0.03 0.01 - 0.[address]3/uL [facility] Specimen Blood - ARM, LEFT Performing Organization Address [facility] Phone Number [facility] CLIA: [id number] [place] [address] POCT GLUCOSE (AUTOMATED) (02/16/2020 2:56 AM CDT) Pathologist Sig nature POCT GLU 111 (H) 70 - 110 mg/dL [facility] Specimen Blood Performing Organization Address [facility] Phone Number [facility] CLIA: [id number] [place] [address] POCT GLUCOSE (AUTOMATED) (2020 8:37 PM CDT) Pathologist Sig nature POCT GLU 248 (H) 70 - 110 mg/dL [facility] Specimen Blood Performing Organization Address [facility] [place] Phone Number [facility] CLIA: [id number] [place] [address] POCT GLUCOSE (AUTOMATED) (2020 4:51 PM CDT) Pathologist Sig nature POCT GLU 193 (H) 70 - 110 mg/dL [facility] Specimen Blood Performing Organization Address [facility] [place] Phone Number [facility] CLIA: [id number] [place] [address] LAB[address] POCT GLUCOSE (AUTOMATED) (2020 11:25 AM CDT) Pathologist Sig nature POCT GLU 130 (H) 70 - 110 mg/dL [facility] Specimen Blood Performing Organization Address [facility] Phone Number [facility] CLIA: [id number] [place] [address] POCT GLUCOSE (AUTOMATED) (2020 8:07 AM CDT) Pathologist Sig nature POCT GLU 62 (L) 70 - 110 mg/dL [facility] Specimen Blood Performing Organization Address [facility] Phone Number [facility] CLIA: [id number] [place] [address] LAB[address] Basic Metabolic Panel (NA, K, CL, CO2, GLUCOSE, BUN, CREATININE, CA) (2020 3:13 AM CDT) NA 139 135 - 145 [facility] mmol/L [facility] K 4.0 3.5 - 5.0 [facility] mmol/L [facility] CL 116 (H) 98 - 108 mmol/L [facility] CO2 TOTAL 21 (L) 23 - 31 mmol/L [facility] AGAP 2 2 - 16 [facility] BUN 28 (H) 7 - 23 mg/dL [facility] GLUCOSE 84 70 - 110 mg/dL [facility] CREATININE 1.33 (H) 0.60 - 1.25 [facility] mg/dL [facility] CALCIUM 7.9 (L) 8.6 - 10.6 [facility] mg/dL [facility] eGFR Calculation 55.2 mL/min/1.73m2 [facility] ([facility] [place] [facility] [place] [facility] [place] eGFR Calculation 66.9 mL/min/1.73m2 [facility] ([facility] LABORATORY Specimen Blood - ARM, RIGHT Narrative Performed At [facility] Glomerular Filtration Rate (GFR) [facility] and Staging of Kidney Disease* + + +- + | GFR (mL/min/1.73 m2) | With Kidney Damage | Without Kidney Damage + + +- + | >90 | Stage one | Normal + + +- + | 60-89 | Stage two | Decreased GFR + + +- + | 30-59 | Stage three | Stage three + + +- + | 15-29 | Stage four | Stage four + + +- + | <15 (or dialysis) | Stage five | Stage five + + +- + *Each stage assumes the associated GFR level has been in effect for at least three months. Stages 1 to 5, with or without kidney disease, indicate chronic kidney disease. Notes: Determination of stages one and two (with eGFR >59mL/min/1.73 m2) requires estimation of kidney damage for at least three months as defined by structural or functional abnormalities of the kidney, manifested by either: Pathological abnormalities or Markers of kidney damage (including abnormalities in the composition of the blood or urine or abnormalities in imaging tests). Performing Organization Address City/State/Zipcode Phone Number [facility] CLIA: [id number] [place] [address] CBC with Differential (2020 3:13 AM CDT) [facility] WBC 4.08 (L) 4.20 - 10.70 [facility] 10*3/L [facility] RBC 2.94 (L) 4.26 - 5.52 [facility] 10*6/L [facility] HGB 9.1 (L) 12.2 - 16.4 [facility] g/dL [facility] HCT 27.4 (L) 38.4 - 49.3 % [facility] MCV 93.2 81.7 - 95.6 fL [facility] MCH 31.0 26.1 - 32.7 pg [facility] MCHC 33.2 31.2 - 35.0 [facility] g/dL [facility] RDW-SD 44.0 38.5 - 51.6 fL [facility] RDW-CV 13.0 12.1 - 15.4 % [facility] PLT 224 150 - 328 [facility] 10*3/L [facility] MPV 11.1 9.8 - 13.0 fL [facility] NRBC/100 WBC 0.0 0.0 - 10.0 /100 [facility] WBCs [facility] NRBC x10^3 <0.01 10*3/L [facility] GRAN MAT (NEUT) % 54.2 % [facility] IMM GRAN % 1.20 % [facility] LYMPH % 28.9 % [facility] MONO % 12.5 % [facility] EOS % 3.2 % [facility] BASO % 0.0 % [facility] GRAN MAT x10^3(ANC) 2.21 1.99 - 6.95 [facility] 10*3/uL HOSPITAL LABORATORY IMM GRAN x10^3 0.05 0.00 - 0.06 [facility] 10*3/uL HOSPITAL LABORATORY LYMPH x10^3 1.18 1.09 - 3.23 [facility] 10*3/uL HOSPITAL LABORATORY MONO x10^3 0.51 0.36 - 1.02 [facility] 10*3/uL HOSPITAL LABORATORY EOS x10^3 0.13 0.06 - 0.53 [facility] 10*3/uL HOSPITAL LABORATORY BASO x10^3 <0.03 0.01 - 0.09 [facility] 10*3/uL HOSPITAL LABORATORY Specimen Blood - ARM, RIGHT Performing Organization Address [facility] [place] Phone Number [facility] CLIA: [id number] [place] [id number] LABORATORY [address] POCT GLUCOSE (AUTOMATED) (02/14/2020 9:25 PM CDT) Pathologist Sig nature POCT GLU 259 (H) 70 - 110 mg/dL [facility] Specimen Blood Performing Organization Address [facility] Phone Number [facility] CLIA: [id number] [place], [place] [id number] LABORATORY [address] [place] [address] Drive POCT GLUCOSE (AUTOMATED) (02/14/2020 4:41 PM CDT) Pathologist Sig nature POCT GLU 247 (H) 70 - 110 mg/dL [facility] Specimen Blood Performing Organization Address [facility]/State/Zipcode Phone Number [facility] CLIA: [id number] [place] [address] POCT GLUCOSE (AUTOMATED) (02/14/2020 11:16 AM CDT) Pathologist Sig nature POCT GLU 129 (H) 70 - 110 mg/dL [facility] Specimen Blood Performing Organization Address City/State/Zipcode Phone Number [facility] CLIA: [id number] [place] [address] FOOT RIGHT WO CONTRAST (02/14/2020 9:45 AM CDT) Specimen Impressions Performed At PACS/VR/DOSE Fifth toe ulceration with surrounding ce llulitis with no CT findings of osteomyelitis. Cannot exclude early oste omyelitis. If clinical concern persists, MRI of the forefoot recommende d as this is the study of choice for exclusion of early osteomyelitis. No abscess. Narrative Performed At EXAM: PACS/VR/DOSE CT FOOT RIGHT WO CONTRAST HISTORY: Osteomyelitis suspected, foot swelling, diabetic R 5th toe wound, evaluate for osteo COMPARISON: 02/13/2020 foot radiographs. FINDINGS: Contrast-enhanced multiplanar CT imaging of the right foot was performed. Diabetic type vascular calcifications ar e present. Remote medial malleolus corticated avuls ions are present. Calcaneal enthesophyte formation is seen. No acute bony abnormality is present. Mo derate joint space narrowing, subchondral sclerosis and marginal osteophyte formatio n involve the first MTP joint, great toe IP joint and hallux metatarsal se samoid articulations. There is chronic cortical fragmentation at the plantar base of the great toe distal phalanx. Diffuse circumferential subcutaneo us fat stranding is seen at the level of the ankle and foot. No rim-enhanc ing fluid collections are seen. Ulceration with superficial gas is seen along the late ral distal small toe with marked swelling. No aggressive periosteal reactio n or vlad osteolysis is seen about the small toe. Procedure Note [facility], Radiant Results Inft User - 2019 10:48 AM CDT EXAM: CT FOOT RIGHT WO CONTRAST HISTORY: Osteomyelitis suspected, foot swelling, diabetic R 5th toe wound, evaluate for osteo COMPARISON: 02/13/2020 foot radiographs. FINDINGS: Contrast-enhanced multiplanar CT imaging of the right foot was performed. Diabetic type vascular calcifications ar e present. Remote medial malleolus corticated avuls ions are present. Calcaneal enthesophyte formation is seen. No acute bony abnormality is present. Mo derate joint space narrowing, subchondral sclerosis and marginal osteo phyte formation involve the first MTP joint, great toe IP joint and hallux metatarsal sesamoid articulations. There is chronic cortical fragmentation at the plantar base of the great toe distal phalanx. Diffuse circumferent ial subcutaneous fat stranding is seen at the level of the ankle and foot. No rim-enhancing fluid collections are seen. Ulceration with superficial gas is seen along the lateral distal small toe with marked swelling. No aggressive emmanuel osteal reaction or vlad osteolysis is seen about the small toe. IMPRESSION Fifth toe ulceration with surrounding ce llulitis with no CT findings of osteomyelitis. Cannot exclude early oste omyelitis. If clinical concern persists, MRI of the forefoot recommende d as this is the study of choice for exclusion of early osteomyelitis. No abscess. Performing Organization Address [facility] [place] Phone Number PACS/VR/DOSE POCT GLUCOSE (AUTOMATED) (02/14/2020 7:50 AM CDT) Pathologist Sig nature POCT GLU 109 70 - 110 mg/dL [facility] Specimen Blood Performing Organization Address [facility] Phone Number [facility] CLIA: [id number] [place] [address] GLYCOSYLATED HEMOGLOBIN (A1C) (02/14/2020 4:53 AM CDT) Pathologist Sig [employer] HGB A1C 11.1 (H) 4.0 - 6.0 % [facility] Specimen Blood - ARM, RIGHT Narrative Performed At %A1C (NGSP) Interpretation (ADA) [facility] 4.8-5.6 Normal or (Non-Diabetic Ra nge) 5.7-6.4 Increased Risk (Pre-Diabet ic) >6.5 Diabetes Indicated Performing Organization Address [facility] [place] Phone Number [facility] CLIA: [id number] [place] [address] COVID-19 (ID NOW RAPID TESTING) (02/13/2020 8:20 PM CDT) SARS-CoV-2 Rapid ID Not Detected Not Detected [facility] Specimen Swab - NASOPHARYNGEAL SWAB Narrative Performed At ID NOW COVID-19 Assay is an isothermal nucleic [facility] acid amplification test intended for the qualitative detection of nucleic acid from SARS-CoV-2 viral RNA in nasopharyngeal (CASTING COORDINATOR) specimens. It is used under Emergency Use Authorization (EUA) by FDA. The limit of detection (LOD) of the assay is 125 Genome Equivalents/mL. A positive result is indicative of the presence of SARS-CoV-2 RNA. Clinical correlation with patient history and other diagnostic information is necessary to determine patient infection status. A negative (Not Detected) result does not preclude SARS-CoV-2 infection. In patients with clinical symptoms and other tests that are consistent with SARS-CoV-2 infection, negative results should be treated as presumptive negative and a new specimen should be tested with alternative PCR molecular test. Invalid: Please collect a new specimen for repeat patient testing if clinically indicated. Performing Organization Address City/State/Zipcode Phone Number [facility] CLIA: [id number] [place] [address] XR TOES 2 VW RIGHT (02/13/2020 6:47 PM CDT) Specimen Impressions Performed At 1. No definite radiographic evidence of osteomyelitis. If osteomyelitis PACS/VR/DOSE is clinically suspected consider either 3 p hase bone scan or MRI. Narrative Performed At EXAM: Right toes 2 views PACS/VR/DOSE HISTORY: small toe infection/wound rule out osteomyelitis TECHNIQUE:AP and lateral views of the toes of the righ t foot are obtained. FINDINGS:Hammertoe deformities are noted. No bony eros geri changes are seen. Degenerative changes are seen in the PIP and DIP joint of the little toe. Diffuse soft tissue swelling is seen in the forefoot p articularly prominent surrounding the fourth and fifth toes. Procedure Note [facility], Radiant Results Inft User - 2019 7:13 PM CDT EXAM: Right toes 2 views HISTORY: small toe infection/wound rule out osteomyelitis TECHNIQUE:AP and lateral views of the to es of the right foot are obtained. FINDINGS:Hammertoe deformities are noted . No bony erosive changes are seen. Degenerative changes are seen in the PIP and DIP joint of the little toe. Diffuse soft tissue swelling is seen in the forefoot particularly prominent surrounding the fourth and fifth toes. IMPRESSION 1. No definite radiographic evidence of osteomyelitis. If osteomyelitis is clinically suspected consider either 3 p hase bone scan or MRI. Performing Organization Address City/State/Zipcode Phone Number PACS/VR/DOSE BASIC METABOLIC PANEL (NA, K, CL, CO2, GLUCOSE, BUN, CREATININE, CA) (02/13/2020 5:54 PM CDT) NA 135 135 - 145 [facility] mmol/L [facility] K 4.2 3.5 - 5.0 [facility] mmol/L [facility] CL 103 98 - 108 mmol/L [facility] CO2 TOTAL 20 (L) 23 - 31 mmol/L [facility] AGAP 12 2 - 16 [facility] BUN 55 (H) 7 - 23 mg/dL [facility] GLUCOSE 154 (H) 70 - 110 mg/dL [facility] CREATININE 2.77 (H) 0.60 - 1.25 [facility] mg/dL [facility] CALCIUM 8.7 8.6 - 10.6 [facility] mg/dL [facility] eGFR Calculation 23.7 mL/min/1.73m2 [facility] ([facility] [place] [facility] [place] [facility] [place]) eGFR Calculation 28.7 mL/min/1.73m2 [facility] () [facility] Specimen Blood - VENOUS Narrative Performed At [facility] Glomerular Filtration Rate (GFR) [facility] and Staging of Kidney Disease* + + +- + | GFR (mL/min/1.73 m2) | With Kidney Damage | Without Kidney Damage + + +- + | >90 | Stage one | Normal + + +- + | 60-89 | Stage two | Decreased GFR + + +- + | 30-59 | Stage three | Stage three + + +- + | 15-29 | Stage four | Stage four + + +- + | <15 (or dialysis) | Stage five | Stage five + + +- + *Each stage assumes the associated GFR level has been in effect for at least three months. Stages 1 to 5, with or without kidney disease, indicate chronic kidney disease. Notes: Determination of stages one and two (with eGFR >59mL/min/1.73 m2) requires estimation of kidney damage for at least three months as defined by structural or functional abnormalities of the kidney, manifested by either: Pathological abnormalities or Markers of kidney damage (including abnormalities in the composition of the blood or urine or abnormalities in imaging tests). Performing Organization Address City/State/Zipcode Phone Number [facility] CLIA: [id number] [place] [address] CBC WITH DIFF (02/13/2020 5:54 PM CDT) Pathologist Sig nature WBC 5.78 4.20 - 10.70 [facility] 10*3/L [facility] RBC 3.12 (L) 4.26 - 5.52 [facility] 10*6/L [facility] HGB 9.7 (L) 12.2 - 16.4 [facility] g/dL [facility] HCT 28.0 (L) 38.4 - 49.3 % [facility] MCV 89.7 81.7 - 95.6 fL [facility] MCH 31.1 26.1 - 32.7 pg [facility] MCHC 34.6 31.2 - 35.0 [facility] g/dL [facility] RDW-SD 41.9 38.5 - 51.6 fL [facility] RDW-CV 12.9 12.1 - 15.4 % [facility] PLT 264 150 - 328 [facility] 10*3/L [facility] MPV 10.9 9.8 - 13.0 fL [facility] NRBC/100 WBC 0.0 0.0 - 10.0 /100 [facility] WBCs [facility] NRBC x10^3 <0.01 10*3/L [facility] GRAN MAT (NEUT) % 63.6 % [facility] IMM GRAN % 0.90 % [facility] LYMPH % 17.1 % [facility] MONO % 16.3 % [facility] EOS % 1.9 % [facility] BASO % 0.2 % [facility] GRAN MAT x10^3(ANC) 3.68 1.99 - 6.95 [facility] 10*3/uL HOSPITAL LABORATORY IMM GRAN x10^3 0.05 0.00 - 0.06 [facility] 10*3/uL HOSPITAL LABORATORY LYMPH x10^3 0.99 (L) 1.09 - 3.23 [facility] 10*3/uL [facility] MONO x10^3 0.94 0.36 - 1.02 [facility] 10*3/uL [facility] EOS x10^3 0.11 0.06 - 0.53 [facility] 10*3/uL [facility] BASO x10^3 <0.03 0.01 - 0.09 [place] [address]*3/uL [facility] Specimen Blood - VENOUS Performing Organization Address City/State/Zipcode Phone Number [facility] CLIA: [id number] [place] [address] documented in this encounter Visit Diagnoses Diagnosis Toe infection - Primary Unspecified local infection of skin and subcutaneous tissue Other specified diabetes mellitus with o ther specified complication, unspecified whether jail insulin use Diabetic foot infection Type II or unspecified 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, not stated as uncontrolled Obesity (BMI 30-39.9) Obesity, unspecified documented in this encounter Administered Medications Medication Order MAR Action Action Date Dose Rate Site acetaminophen (TYLENOL) tablet Given 02/16/2020 5:49 AM CDT 650 mg 650 mg 650 mg, Oral, Q6HPRN, Starting Fri02/14/20 at 0049, Until Discontinued, Routine, Pain (scale 1-3) benztropine (COGENTIN) tablet 0.5 mg Given 02/14/2020 9:13 PM CDT 0.5 mg 0.5 mg, Oral, QHS, First dose on Fri02/14/20 at 2100, Until Discontinued, Routine clonazePAM (KLONOPIN) tablet 1 mg Given 02/17/2020 11:31 PM CDT 1 mg 1 mg, Oral, BIDPRN, Starting Fri02/14/20 at 1349, Until Discontinued, Routine, anxiety Given 2020 3:18 AM CDT 1 mg collagenase (SANTYL) ointment Given 02/18/2020 4:21 PM CDT Topical (Apply To Affected Areas), DAILY, First dose on Fri02/14/20 at 1230, Until Discontinued, Routine Given 02/17/2020 8:01 AM CDT Given 02/16/2020 8:14 AM CDT dextroamphetamine-amphetamine (ADDERALL) 10 Given 02/18/2020 8:34 AM CDT 30 mg mg tablet 30 mg 30 mg, Oral, BID, First dose on Fri02/14/20 at 2000, Until Discontinued, Routine Given 02/17/2020 8:07 PM CDT 30 mg Given 02/17/2020 8:01 AM CDT 30 mg dextrose 50 % in water (D50W) injection 25 mL Given 2020 8:37 AM CDT 25 mL 25 mL, Slow IV Push, PRN, Starting Fri02/14/20 at 0050, Until Discontinued, DEEPALI, Blood Glucose < or = 70 mg/dL and patient is unable to swallow or has mental status changes. divalproex ER (DEPAKOTE ER) 24 hr tablet Given 02/14/2020 9 :11 PM CDT 1,000 mg 1,000 mg 1,000 mg, Oral, QHS, First dose on Fri02/14/20 at 2100, Until Discontinued, Routine glucagon (GLUCAGEN DIAGNOSTIC KIT) injec tion 1 mg 1 mg, Intramuscular, PRN, Starting Fri at 0050, Until Discontinued, DEEPALI, Blood Glucose < or = 70 mg/dL and patient is unable to swallow or has mental changes. heparin (porcine) injection Given 02/18/2020 4:16 PM CDT 5,000 Units Abdomen-SC 5,000 Units 5,000 Units, Subcutaneous, Q8H, First dose on Fri02/14/20 at 0600, Until Discontinued, Routine Given 02/18/2020 6:43 AM CDT 5,000 Units Abdo men-SC Given 02/17/2020 11:32 PM CDT 5,000 Units Abdo men-SC hydrALAZINE (APRESOLINE) tablet 25 mg Given 02/18/2020 8:34 AM CDT 25 mg 25 mg, Oral, DAILY, First dose on Alicia 02/17/20 at 1600, Until Discontinued, Routine Given 02/17/2020 4:08 PM CDT 25 mg insulin NPH and regular human Given 02/17/2020 8:02 AM CDT 65 U nits Abdomen-SC 70-30 (HUMULIN 70-30 U-100 INSULIN) 100 unit/mL (70-30) injection 65 Units 65 Units, Subcutaneous, BIDAC, First dose on Fri02/14/20 at 1630, Until Discontinued, Routine Given 02/16/2020 4:41 PM CDT 65 Units Abdo men-SC Given 2020 5:10 PM CDT 65 Units Abdo men-SC losartan (COZAAR) tablet 75 mg Given 02/18/2020 8:34 AM CDT 75 mg 75 mg, Oral, DAILY, First dose (after last modification) on Alicia 02/17/20 at 0900, Until Discontinued, Routine Given 02/17/2020 8:07 AM CDT 75 mg metoprolol tartrate (LOPRESSOR) tablet 5 0 mg Given 02/18/2020 8:34 AM CDT 50 mg 50 mg, Oral, BID, First dose on Fri02/14/20 at 2000, Until Discontinued, Routine Given 02/17/2020 7:58 PM CDT 50 mg Given 02/17/2020 8:01 AM CDT 50 mg NaCl 0.9% (NS) injection 10 mL 10 mL, Slow IV Push, PRN, Starting Fri02/18/20 at 1311 , Until Discontinued, Routine, pipeline dispatcher ondansetron (ZOFRAN (PF)) injection 4 mg Given 02/16/2020 8:52 PM CDT 4 mg 4 mg, Slow IV Push, Q6HPRN, Starting Fri02/14/20 at 0050, Until Discontinued, Routine, Nausea and Vomiting (N/V) pantoprazole (PROTONIX) EC tablet 40 mg Given 02/18/2020 8:35 AM CDT 40 mg 40 mg, Oral, DAILY, First dose on Fri02/15/20 at 0900, Until Discontinued, Routine Given 02/17/2020 8:01 AM CDT 40 mg Given 02/16/2020 8:15 AM CDT 40 mg piperacillin-tazobactam (ZOSYN) 3.375 g in Given 02/17 11:14 AM CDT 3.375 g NaCl 0.9% (NS) 100 mL MINI-BAG 3.375 g, IV Piggyback, Q6H ABX, First dose on Fri02/14/20 at 0445, Until Discontinued, 100 mL, Reason for Anti-Infective: Empiric Therapy for Suspected Infection, Empiric Therapy Site: Skin / Soft tissue, Duration of therapy: 7 days Given 02/18/2020 6:42 AM CDT 3.375 g Given 02/17/2020 11:33 PM CDT 3.375 g risperiDONE (RISPERDAL) tablet 4 mg Given 02/14/2020 9:12 PM CDT 4 mg 4 mg, Oral, QHS, First dose on Fri02/14/20 at 2100, Until Discontinued, Routine Sliding Scale Insulin-Regular + Given 02/17/2020 7:58 PM CDT 1 Units Abdomen-SC Fsbg Testing Subcutaneous, AC+HS, First dose on Fri02/14/20 at 0730, Until Discontinued, Routine Given 02/17/2020 11:29 AM CDT 2 Units Abdo men-SC Given 2020 10:02 PM CDT 2 Units Abdo men-SC vancomycin 1250 mg in NS 250 mL RTU IV Given 02/18/2020 4:15 PM CDT 1,250 mg Piggyback 1,250 mg 1,250 mg, IV Infusion, Q12H ABX, First dose on Fri02/17/20 at 1600, Until Discontinued, Reason for Anti-Infective: Empiric Therapy for Suspected Infection, Empiric Therapy Site: Skin / Soft tissue, Duration of therapy: 7 days Given 02/18/2020 4:11 AM CDT 1,250 mg Given 02/17/2020 4:09 PM CDT 1,250 mg Medication Order MAR Action Action Date Dose Rate Site lidocaine 1% (PF) Given 02/18/2020 3:22 PM 5 mL Right Upper Arm-SC (XYLOCAINE) injection 5 CDT mL 5 mL, Subcutaneous, ONCE, 1 dose, Fri02/18/20 at 1315, Routine losartan (COZAAR) tablet 50 mg Given 02/16/2020 8:15 AM CDT 50 mg 50 mg, Oral, DAILY, First dose on Fri02/15/20 at 0900, Until Discontinued, Routine Given 2020 8:36 AM CDT 50 mg morpHINE injection 2 mg Given 02/14/2020 5:32 PM CDT 2 mg 2 mg, Slow IV Push, Q4HPRN, Starting Fri02/14/20 at 0050, Until Fri02/15/20 at 0049, Routine, Pain (scale 7-10) Given 02/14/2020 10:36 AM CDT 2 mg Given 02/14/2020 6:32 AM CDT 2 mg morpHINE injection 2 mg Given 02/16/2020 3:51 AM CDT 2 mg 2 mg, Slow IV Push, Q4HPRN, Starting Fri02/15/20 at 0438, Until Fri02/16/20 at 0437, Routine, Pain (scale 7-10) Given 2020 10:23 PM CDT 2 mg Given 2020 6:27 PM CDT 2 mg morpHINE injection 2 mg Given 02/17/2020 8:46 AM CDT 2 mg 2 mg, Slow IV Push, Q4HPRN, Starting Fri02/16/20 at 1030, Until Fri02/17/20 at 1029, Routine, Pain (scale 7-10) Given 02/17/2020 3:53 AM CDT 2 mg Given 02/16/2020 8:52 PM CDT 2 mg morpHINE injection 2 mg Given 02/18/2020 4:15 PM CDT 2 mg 2 mg, Slow IV Push, Q4HPRN, Starting Fri02/17/20 at 1709, Until Fri02/18/20 at 1708, Routine, Pain (scale 7-10) Given 02/18/2020 9:31 AM CDT 2 mg Given 02/18/2020 4:12 AM CDT 2 mg morpHINE injection 4 mg Given 02/13/2020 5:37 PM CDT 4 mg 4 mg, Slow IV Push, ONCE, 1 dose, [place] 02/13/20 at 1845, STAT morpHINE injection 4 mg Given 02/13/2020 6:42 PM CDT 4 mg 4 mg, Slow IV Push, ONCE, 1 dose, [place] 02/13/20 at 1945, STAT morpHINE injection 4 mg Given 02/13/2020 10:33 PM CDT 4 mg 4 mg, Slow IV Push, ONCE, 1 dose, [place] 02/13/20 at 2330, STAT NaCl 0.9% (NS) IV infusion 1,000 New Bag 02/17/2020 3:37 PM C DT 1,000 mL 125 mL/hr mL at 125 mL/hr, IV Infusion, CONTINUOUS, Starting Fri02/14/20 at 0100, Until Fri02/17/20 at 1548, Routine New Bag 02/17/2020 6:13 AM CDT 1,000 mL 125 mL/hr New Bag 02/16/2020 6:41 PM CDT 1,000 mL 125 mL/hr ondansetron (ZOFRAN (PF)) injection 4 mg Given 02/13/2020 5:37 PM CDT 4 mg 4 mg, Slow IV Push, ONCE, 1 dose, 02/13/20 at 1845, DEEPALI traMADoL (ULTRAM) tablet 50 mg Given 2020 3:18 AM CDT 50 mg 50 mg, Oral, Q8HPRN, Starting 02/14/20 at 0049, Until 02/16/20 at 0048, Routine, Pain (scale 4-6) Given 02/14/2020 4:58 AM CDT 50 mg vancomycin (VANCOCIN) 1,000 mg in NaCl Given 02/13/2020 7:18 PM CDT 1,000 mg 0.9% (NS) 250 mL VIAL-MATE IV piggyback 1,000 mg, IV Piggyback, ONCE, 1 dose, [place] 02/13/20 at 2015, 250 mL, Reason for Anti-Infective: Documented Infection, Documented Infection Site: Wound, Duration of Therapy: Other (see Comments) vancomycin (VANCOCIN) 1,000 mg in NaCl Given 02/16/2020 8:33 PM CDT 1,000 mg 0.9% (NS) 250 mL VIAL-MATE IV piggyback 1,000 mg, IV Piggyback, Q24H ABX, First dose on 02/14/20 at 2000, Until Discontinued, 250 mL, Reason for Anti-Infective: Empiric Therapy for Suspected Infection, Empiric Therapy Site: Skin / Soft tissue, Duration of therapy: 7 days Given 2020 10:01 PM CDT 1,000 mg Given 02/14/2020 9:26 PM CDT 1,000 mg documented in this encounter Additional Health Concerns Infection Onset Date Last Indicated Resolved Time COVID-19 Rule Out 02/13/2020 02/13/2020 02/13/2020 9: 08 PM CDT documented as of this encounter Insurance Payer Benefit Plan / Subscriber ID Effective Phone Address T ype Group Dates MEDICARE MEDICARE PART [id number] 2004-Pres [phone] Medicare A & B ent [id number] ESTEFANY HOLLOWAY [address] MARQUIS CHO [id number] 2015-Pres [address] Medica id HEALTHCARE - [place]ARE [place] [id number] MANAGED MEDICAID [place], [place]ID [place] documented as of this encounter"
[2020-02-21 12:45] LABS: Absolute Lymphocytes (CBC) 1.4 K/uL (0.7-4.9); Basophils % 0.4 % (0-1.3); Lymphocytes % 29.7 % (15.3-44.8); MPV 8.3 fL (7.6-11.3); RBC Red Blood Cell Count 2.74 M/uL (4.33-5.43)
[2020-02-21 12:58] LABS: Albumin 2.9 g/dL (3.4-5.0); Bilirubin Total 0.2 mg/dL (0.2-1.0); Potassium 4.2 mmol/L (3.5-5.1); Protein, Total 7.1 g/dL (6.4-8.2)
--- NOTE | 2020-02-21 13:24 | RAD REPORT ---
EXAM DESCRIPTION: RAD - Foot Right 3 View - 02/21/2020 1:07 pm CLINICAL HISTORY: PAIN COMPARISON: Foot Right 3 View dated 10/01/2018; Foot Right 2 View dated 07/23/2018 FINDINGS: Prominent arthritic changes are seen involving the great toe interphalangeal joint and fir st MTP joint. Moderate soft tissue swelling seen about the fluid with vascular calcification evident. Soft tissue defect is seen along the lateral margin fifth toe. No radiographic finding of osteomyeli tis.
--- NOTE | 2020-02-21 14:31 | EDPHYS ---
Physician Documentation [facility] Name: Gasper Fry Age: 60 yrs Sex: Male : 1960 Arrival Date: 02/21/2020 Time: 10:43 Bed 14 Private MD: OLEG Physician Lance Ponce HPI: 02/20 12:36 This 60 yrs old Male presents to ER via Wheelchair with complaints of Wound pm1 Check. 12:36 Patient presents to ED for recheck of: cellulitis, right foot. Previous treatment: pm1 According to wound care here. Patient was seen at [facility] and admitted for cellulitis to right foot. A PICC line was placed and he was given abx and discharged to a senior living for further abx treatment. He left AMA from the senior living. He then showed up at the wound care center requesting abx treatment. Wound care sent him here for evaluation. The patient has experienced similar episodes in the past, chronically. 12:36 The patient does not know why wound care sent him to the ER. pm1 Historical: - Allergies: 11:01 Haldol (Anaphylaxis); ca1 11:01 Narcan (Anaphylaxis); ca1 - PMHx: 11:01 ADD/ADHD; Anxiety; Bipolar disorder; Cellulitis; Chronic pain; CVA; Diabetes - IDDM; ca1 Hypertension; neuropathy; Seizures; - PSHx: 11:01 Neck Surgery; Back Surgery; knee Surgery; ca1 - Immunization history:: Adult Immunizations up to date. - Social history:: Smoking status: Patient/guardian denies using tobacco. ROS: 12:36 Constitutional: Negative for fever, chills, and weight loss, Cardiovascular: Negative pm1 for chest pain, palpitations, and edema, Respiratory: Negative for shortness of breath, cough, wheezing, and pleuritic chest pain, Abdomen/GI: Negative for abdominal pain, nausea, vomiting, diarrhea, and constipation, Back: Negative for injury and pain, MS/Extremity: Negative for injury and deformity, Skin: Negative for injury, rash, and discoloration, Neuro: Negative for headache, weakness, numbness, tingling, and seizure. Exam: 12:36 Constitutional: This is a well developed, well nourished patient who is awake, alert, pm1 and in no acute distress. Head/Face: Normocephalic, atraumatic. Neck: Trachea midline, no thyromegaly or masses palpated, and no cervical lymphadenopathy. Supple, full range of motion without nuchal rigidity, or vertebral point tenderness. No Meningismus. 12:36 Cardiovascular: Exam negative for acute changes, Rate: normal, Rhythm: regular, Pulses: no pulse deficits are appreciated. 12:36 Respiratory: Exam negative for acute changes, respiratory distress, shortness of breath. 12:36 Musculoskeletal/extremity: Exam is negative for acute changes. 12:36 Skin: cellulitis, that is mild, on the right fifth toe. 12:36 Neuro: Exam negative for acute changes, Orientation: is normal, Mentation: is normal, Motor: is normal, moves all fours. Vital Signs: 10:56 BP 151 / 101; Pulse 69; Resp 16 S; Temp 97.9(TE); Pulse Ox 98% on R/A; Weight 99.79 kg ca1 (R); Height 6 ft. 0 in. (182.88 cm) (R); 12:08 BP 142 / 80; Pulse 70; Resp 17; Pulse Ox 98% on R/A; tw2 13:00 BP 162 / 91; Pulse 67; Resp 17; Pulse Ox 100% on R/A; tw2 13:41 BP 173 / 86; Pulse 77; Resp 17; Pulse Ox 100% on R/A; tw2 14:55 BP 150 / 76; Pulse 75; Resp 17; Pulse Ox 97% on R/A; tw2 10:56 Body Mass Index 29.84 (99.79 kg, 182.88 cm) ca1 MDM: 11:05 Patient medically screened. [facility] 14:27 Data reviewed: vital signs. Data interpreted: Pulse oximetry: on room air is 100 %. pm1 Interpretation: normal. 14:59 ED course: WBC, lactate, procalcitonin negative. No osteomyelitis present on x-ray. pm1 Patient with chronic wounds present to feet. Will prescribe antibiotics and patient to follow up with his PCP/wound care. 14:59 Counseling: I had a detailed discussion with the patient and/or guardian regarding: the pm1 historical points, exam findings, and any diagnostic results supporting the discharge/admit diagnosis, lab results, radiology results, the need for outpatient follow up, 02/20 12:20 Order name: CBC with Diff; Complete Time: 13:30 pm1 02/20 12:20 Order name: CMP; Complete Time: 13:30 pm1 02/20 12:20 Order name: Procalcitonin; Complete Time: 13:46 pm1 02/20 12:20 Order name: Lactate; Complete Time: 13:30 pm1 02/20 12:20 Order name: Foot Right 3 View XRAY; Complete Time: 13:30 pm1 02/20 12:20 Order name: Blood Culture Adult (2) pm1 Administered Medications: No medications were administered Disposition: 02/21 08:23 Co-signature as Attending Physician, Lance Ponce MD I agree with the assessment and jerome plan of care. Disposition: 02/21/20 14:30 Discharged to Home. Impression: Cellulitis of right toe. - Condition is Stable. - Discharge Instructions: Cellulitis, Adult. - Prescriptions for Cipro 500 mg Oral Tablet - take 1 tablet by ORAL route every 12 hours for 10 days; 20 tablet. - Medication Reconciliation Form, Thank You Letter, Antibiotic Education, Prescription Opioid Use form. - Follow up: Emergency Department; When: As needed; Reason: Worsening of condition. Follow up: Private Physician; When: 2 - 3 days; Reason: Recheck today's complaints, Continuance of care, Re-evaluation by your physician. - Problem is new. - Symptoms have improved. Signatures: Dispatcher [employer] Lance Bradley MD MD cha Marinas, Patrick, OPERATIONS SUPPORT REPRESENTATIVE OPERATIONS SUPPORT REPRESENTATIVE pm1 Jeannine Sosa RN RN tw2 Angelica Hood RN RN ca1 Corrections: (The following items were deleted from the chart) 02/20 12:35 12:20 IV Saline Lock ordered. pm1 tw2 14:59 14:30 02/21/2020 14:30 Discharged to Home. Impression: Cellulitis of right toe. tw2 Condition is Stable. Forms are Medication Reconciliation Form, Thank You Letter, Antibiotic Education, Prescription Opioid Use. Follow up: Emergency Department; When: As needed; Reason: Worsening of condition. Follow up: Private Physician; When: 2 - 3 days; Reason: Recheck today's complaints, Continuance of care, Re-evaluation by your physician. Problem is new. Symptoms have improved. pm1
--- NOTE | 2020-02-21 14:31 | ER ---
Nurse's Notes [facility] Name: Gasper Arevalo Age: 60 yrs Sex: Male : 1960 Arrival Date: 02/21/2020 Time: 10:43 Bed 14 Private MD: Diagnosis: Cellulitis of right toe Presentation: 02/20 10:56 Chief complaint: Patient states: Went to the wound care center today and they sent me ca1 over here. I have no idea why they sent me here. Reports pain on both legs. Denies fever. Pt has a PICC line on R upper arm and pt reported he hasn't started IV abx yet. Coronavirus screen: Client denies travel out of the [place] in the last 14 days. At this time, the client does not indicate any symptoms associated with coronavirus-19. Ebola Screen: Patient negative for fever greater than or equal to 101.5 degrees Fahrenheit, and additional compatible Ebola Virus Disease symptoms Patient denies exposure to infectious person. Patient denies travel to an Ebola-affected area in the 21 days before illness onset. No symptoms or risks identified at this time. Initial Sepsis Screen: Does the patient meet any 2 criteria? No. Patient's initial sepsis screen is negative. Does the patient have a suspected source of infection? No. Patient's initial sepsis screen is negative. Risk Assessment: Do you want to hurt yourself or someone else? Patient reports no desire to harm self or others. Onset of symptoms was February 21, 2020. 10:56 Method Of Arrival: Wheelchair ca1 10:56 Acuity: DARREL 3 ca1 Historical: - Allergies: 11:01 Haldol (Anaphylaxis); ca1 11:01 Narcan (Anaphylaxis); ca1 - PMHx: 11:01 ADD/ADHD; Anxiety; Bipolar disorder; Cellulitis; Chronic pain; CVA; Diabetes - IDDM; ca1 Hypertension; neuropathy; Seizures; - PSHx: 11:01 Neck Surgery; Back Surgery; knee Surgery; ca1 - Immunization history:: Adult Immunizations up to date. - Social history:: Smoking status: Patient/guardian denies using tobacco. Screenin:29 Abuse screen: Denies threats or abuse. Nutritional screening: No deficits noted. tw2 Tuberculosis screening: No symptoms or risk factors identified. Fall Risk Secondary diagnosis (15 points) impaired mobility. Assessment: 11:10 General: Appears obese, unkempt, Behavior is appropriate for age, fussy. Pain: tw2 Complains of pain in right foot. Neuro: Level of Consciousness is awake, alert, obeys commands, Oriented to person, place, situation. Cardiovascular: Heart tones S1 S2 Patient's skin is warm and dry. Respiratory: Airway is patent Respiratory effort is even, unlabored, Respiratory pattern is regular, symmetrical, Breath sounds are clear bilaterally. GI: No signs and/or symptoms were reported involving the gastrointestinal system. Abdomen is round non-distended, obese, Bowel sounds present X 4 quads. : No signs and/or symptoms were reported regarding the genitourinary system. EENT: No signs and/or symptoms were reported regarding the EENT system. Derm: Wound noted plantar aspect of right fifth toe and right fifth toe. Derm: Musculoskeletal: Amputation of left first toe and left second toe. 11:10 Reassessment: pt has PICC line RIGHT upper arm in place at this time, dressing dated tw2 02/17. 11:29 Reassessment: Ericka from Wound Healing states pt was recently diagnosed with foot iw infection and was to start oral abx but he never picked up abx. Mr. arevalo then showed up at [facility] and was admitted for the foot infection and was d/c to [facility]dc to complete IV abx therapy via PICC line .Mr. Arevalo left AMA from fdc and has not had any abx treatment for 2 days. Pt was being treated by Dr. Mcfadden at [facility]. Mr. Arevalo showed up to today expecting them to re-initiate his IV abx. Pt was referred to be seen in ER if he felt he needed treatment. 12:11 Reassessment: No changes from previously documented assessment. Patient and/or family tw2 updated on plan of care and expected duration. Pain level reassessed. Patient is alert, oriented x 3, equal unlabored respirations, skin warm/dry/pink. 12:24 Reassessment: per provider can use PICC line for blood work at this time. tw2 13:41 Reassessment: No changes from previously documented assessment. Patient and/or family tw2 updated on plan of care and expected duration. Pain level reassessed. Patient is alert, oriented x 3, equal unlabored respirations, skin warm/dry/pink. 14:55 Reassessment: No changes from previously documented assessment. Patient and/or family tw2 updated on plan of care and expected duration. Pain level reassessed. Patient is alert, oriented x 3, equal unlabored respirations, skin warm/dry/pink. pt in restroom at this time. Vital Signs: 10:56 BP 151 / 101; Pulse 69; Resp 16 S; Temp 97.9(TE); Pulse Ox 98% on R/A; Weight 99.79 kg ca1 (R); Height 6 ft. 0 in. (182.88 cm) (R); 12:08 BP 142 / 80; Pulse 70; Resp 17; Pulse Ox 98% on R/A; tw2 13:00 BP 162 / 91; Pulse 67; Resp 17; Pulse Ox 100% on R/A; tw2 13:41 BP 173 / 86; Pulse 77; Resp 17; Pulse Ox 100% on R/A; tw2 14:55 BP 150 / 76; Pulse 75; Resp 17; Pulse Ox 97% on R/A; tw2 10:56 Body Mass Index 29.84 (99.79 kg, 182.88 cm) ca1 ED Course: 10:43 Patient arrived in ED. as 10:59 Triage completed. ca1 11:01 Arm band placed on right wrist. ca1 11:01 Bed in low position. Call light in reach. Side rails up X2. Pulse ox on. NIBP on. tw2 11:05 Clif Arndt NP is PHCP. pm1 11:05 Lance Ponce MD is Attending Physician. pm1 11:13 Jeannine Sosa, MALU is Primary Nurse. tw2 13:08 Foot Right 3 View XRAY In Process Unspecified. EDMS 14:56 No provider procedures requiring assistance completed. Patient did not have IV access tw2 during this emergency room visit. pts PICC to Right UPPER arm remains in place at discharge. Administered Medications: No medications were administered Outcome: 14:30 Discharge ordered by . pm1 14:56 Discharged to home via wheelchair. tw2 14:56 Condition: stable 14:56 Discharge instructions given to patient, Instructed on discharge instructions, Demonstrated understanding of instructions, follow-up care, medications, Prescriptions given X 1. 14:59 Patient left the ED. tw2 Signatures: Dispatcher [employer] EDPaul Hardinia as Ju Anton, RN RN iw Clif Arndt, VINEYARD SUPERVISOR VINEYARD SUPERVISOR pm1 Jeannine Sosa, RN RN tw2 Angelica Hood, RN RN ca1
[2020-02-21 15:07] VITALS: TEMP 97.9
[2020-02-21 15:11] VITALS: BP 150/76; O2SAT 97
== END 2020-02-21 14:59 | disposition home or self-care (01) ==
LOC: ER 10:42
DX: L03.031 Cellulitis of right toe (principal); I10 Essential (primary) hypertension; Z88.5 Allergy status to narcotic agent; Z88.6 Allergy status to analgesic agent
CPT/HCPCS: 36415; 80053; 83605; 84145; 85025; 87040; 99283

== ENCOUNTER 2020-03-04 20:06 | Emergency (ER) | payer OTHER ==
--- OUTSIDE RECORDS SUMMARY | 2020-03-04 20:09 | XMS REPORT | Clinical Summary ---
:1960 Author Organization [facility] Address [facility] [place] [address] Care Team Providers Name Role Phone Unavailable [...] foot, unspecified type; Poorly-controll ed hypertension after 03/04/2019 Social History Tobacco Use Types Packs/Day Years [...] are i n the results section. after 03/04/2019 Results PTT - every 6 hours x 24 hours (03/27/2019 5:34 PM CDT) PTT 26.6 23.6 - 36.4 [facility] Comment: Seconds The recommended therapuetic range is an APTT 61-103 seconds which corresponds to 0.3-0.7 anti Xa u/ml. Specimen Blood Performing Organization Address [facility] Phone Number [facility] [address] [place] [address] POCT GLUCOSE POC docked device (03/27/2019 4:50 PM CDT) Pathologist Sig [facility] Glucose POC 98 74 - 106 mg/dL [facility] Specimen Blood Performing Organization Address [facility] Phone Number [facility] [address] [place] [address] [phone] CRP (High Sensitivity) (03/27/2019 1:29 PM CDT) Pathologist Sig nature CRP, High Sensitivity 1.0 (H) <1.0 mg/L [facility] (Cardiac) Specimen Blood Performing Organization Address [facility] Phone Number [facility] [address] [place] [address] SED Rate (03/27/2019 1:29 PM CDT) Pathologist Sig [facility] Sed Rate 18 0-<20 mm/Hr [facility] Specimen Blood Performing Organization Address [facility] Phone Number [facility] [address] [place] [address] DUPLEX DOPPLER LOWER EXTREMITY VENOUS, UNILATERAL OR [...] PM Performing Organization Address City/State/Zipcode Phone Number [facility] XRAY CHEST 2 VIEWS (03/27/2019 11:15 [...] Performed At EXAMINATION: XRAY CHEST 2 VIEWS [facility] INDICATION: shortness of breath, lower e [...] PM Performing Organization Address City/State/Zipcode Phone Number [facility] XRAY FOOT 3 VIEWS MIN (03/27/2019 [...] At EXAMINATION: XRAY FOOT 3 VIEWS MIN [facility] SIDE: Left INDICATION: L foot wound [...] AM Performing Organization Address City/State/Zipcode Phone Number [facility] 12 LEAD EKG (03/27/2019 10:54 AM CDT) 12 LEAD EKG FOR [facility] Test Date: 2019-03-27 Pat Name: MARCOS FRY Depart ent: [id number] Room: Gender: M 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 Measu rements Intervals [place] Rate: 74 P: 37 PA: 164 QRS: -28 QRSD: 111 T: 11 [...] Daniela Betancur M.D. Specimen Performing Organization Address City/[facility]/Zipcode Phone Number [facility] PT/INR/PTT (03/27/2019 10:52 AM CDT) PT [...] Blood Performing Organization Address [facility] Phone Number [facility] [address] [place] [address] CBC/Diff (03/27/2019 10:51 AM CDT) WBC 4.6 [...] Blood Performing Organization Address [facility] Phone Number [facility] [address] [place] [address] [phone] Comprehensive Metabolic Panel (03/27/2019 10:51 AM CDT) [facility] Sodium 140 136 - 145 [facility] [...] Blood Performing Organization Address [facility] Phone Number [facility] [address] [place] [address] BNP [B-Type Natriuretic Peptide] (03/27/2019 10:51 AM CDT) Pathologist Sig nature B Natriuretic Peptide 93 <=100 pg/mL [facility] (BNP) Specimen Blood Performing Organization Address City/State/Zipcode Phone Number [facility] [address] [place] [address] after 03/04/2019 Insurance Payer Benefit Plan / Subscriber ID Effective Dates Phone Addre ss Type Group MEDICARE MEDICARE PART xxxxxxxxxxx 2004-Janis [id number] [place] [address] [place] [id number] MQMB SSI xxxxxxxxx 2013-Nadira [phone] [phone] [place] [address]
--- OUTSIDE RECORDS SUMMARY | 2020-03-04 20:10 | XMS REPORT | Continuity of Care Document ---
:1960 Author Organization [facility] t Address [address] [place] [address] Care Team Providers Name Role Phone Gonzalez GODWIN Attending Clinician Nain PRUETT, S Attending Clinician Sari VALENCIA Attending Clinician Doctor Unassigned, Name Attending Clinician Unavailable Corine VALENCIA, H Attending Clinician Perry VALENCIA, R Attending Clinician Dorcas VALENCIA, K Attending Clinician Sari VALENCIA Admitting Clinician Payers Payer Name Policy Type Policy Number Effective Date Expiration Date S neelam MEDICAREMEDICARE PART xxxxxxxxxxx 2004 [place] A & 00:00:00 Health Bxxxxxxxxxxx2004- [phone], [place] [address] [place] [id number] xxxxxxxxx 2013 Gabriel MQMB SSI 00:00:00 Health 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 collagenase 2018- Yes Chronic Apply MD (SANTYL) 7-19 pain [...] Chronic 750mg Take 3 M D (DEPAKOTE) 719 pain of tablets And erso 250 mg [...] [facility] Dietrich mg/day [facility] Albuterol Albuterol Yes Sylvain [...] needed [facility] Eliquis Eliquis Yes Sylvain TAKE 1 [facility] TABLET BY [facility]TH [facility] TWICE l DAILY [facility]pat[facility] ent Clinics Benztropine Benztropine Yes Sylvain [address] [facility] [address] Mesylate Mesylate Dietrich at bedtime [facility] Amphetamine Amphetamine Yes Sylvain [address] -Dextroamph -Dextroamph Dietrich [facility] etamine etamine [facility] Risperidone Risperidone Yes Sylvain [address] [facility] Dietrich [facility] Metoprolol Metoprolol Yes Sylvain [address] Tartrate Tartrate Dietrich with food [facility] Losartan Losartan Yes Sylvain [address] Potassium Potassium Dietrich [facility] Divalproex Divalproex Yes Sylvain [address] Sodium ER Sodium ER Dietrich [facility] BusPIRone BusPIRone Yes Sylvain [address] HCl HCl Dietrich [facility] Pen Moira Pen Moira Yes Sylvain N/s [facility] Dietrich [facility] Atorvastati Atorvastati Yes Sylvain [address] n Calcium n Calcium Dietrich [facility] Advair Advair Yes Sylvain [address] Diskus Diskus Dietrich [facility] True Metrix True Metrix Yes Sylvain USE TO [facility] Blood Blood Dietrich TEST BLOOD [facility] Glucose Glucose SUGAR 1-2 Joe cristina Test Test TIMES l EVERY DAY [facility] NovoLIN NovoLIN Yes Sylvain INJECT [facility] t 70/30 70/30 Dietrich SUBQUTANEO [facility] - FlexPen FlexPen USLY 65 Memori a UNITS l TWICE Outpati DAILY ent Clinics UltiCare UltiCare Yes Sylvain USE ONE [facility] Micro Pen Micro Pen Dietrich NEEDLE Rita kes - Moira Moira THREE Memoria TIMES l [facility] NOVOLIN FLEXPEN Vital Signs Vital Name Observation Time Observation Value Comments Source Body height 2019-03-27 17:51:00 182.9 cm [facility] Body weight 2019-03-27 14:22:00 99.791 kg [facility] BMI 2019-03-27 14:22:00 29.84 kg/m2 [facility] Systolic blood 2019-03-27 13:16:00 180 mm[Hg] yesica [facility] pressure Diastolic blood 2019-03-27 13:16:00 94 mm[Hg] yesica aware [facility] pressure Heart rate 2019-03-27 13:16:00 74 /min [facility] Respiratory rate 2019-03-27 13:16:00 17 /min [facility] Oxygen saturation in 2019-03-27 13:16:00 100 /min [facility] Arterial blood by Pulse oximetry Body temperature 2019-03-27 11:00:00 36.56 Cece [facility] Procedures Procedure Date / Time Performed Performing Clinician Sourc e PTT 2019-03-27 17:34:00 Leyla Beckett [facility] GLUCOSE POC 2019-03-27 16:50:00 Lyssa Lozano [facility] SED RATE 2019-03-27 13:29:00 Lyssa Lozano [facility] C-REACTIVE PROTEIN HIGH 2019-03-27 13:29:00 Lyssa Lozano [facility] SENSITIVITY (CARDIAC) DUPLEX DOPPLER LOWER 2019-03-27 12:02:47 Paul Stone [facility] EXTREMITY VENOUS, UNILATERAL OR LIMITED XRAY FOOT 3 VIEWS MIN 2019-03-27 11:15:07 [facility] 2 VIEWS 2019-03-27 11:15:07 Lyssa Lozano [facility] 12 LEAD EKG 2019-03-27 10:54:22 Lyssa Lozano [facility] PT/INR/PTT 2019-03-27 10:52:00 Lyssa Lozano [facility] CBC/DIFF 2019-03-27 10:51:00 Lyssa Lozano [facility] B-TYPE NATRIURETIC PEPTIDE 2019-03-27 10:51:00 Lyssa Lozano [facility] (BNP) COMPREHENSIVE METABOLIC 2019-03-27 10:51:00 Lyssa Lozano [facility] Health PANEL CBC 2019-03-27 10:51:00 Lyssa Lozano [facility] Plan of Care Planned Activity Planned Date Details Comments Source Future Scheduled Test 2020-03-09 00:00:00 IMM Influenza [facility] Seasonal Mar to August (>/= 19 yrs) [code = IMM Influenza Seasonal Mar to August (>/= 19 yrs)] Future Scheduled Test 2011 00:00:00 Screening for [facility] malignant neoplasm of colon (procedure) [code = 936583450] Encounters Start End Encounter Admission Attending Care Care Encounter Source Date/Time Date/Time Type Type Clinicians Facility Department ID 2020-03-03 2020-03-03 Emergency Roth, [facility] [id number] 18:26:00 23:02:00 Trinh Maldonado [id number] [place] 4.2.7.2.686 [place] [id number] 2020-03-01 2020-03-01 Outpatient [facility] [id number] [facility]00 [facility] ent Clinics 2020-02-22 2020-02-22 Outpatient [facility] [id number] [facility] 00[facility]00 [facility] ent Clinics 2020-02-13 2020-02-18 [facility] Yazmin [place] [facility] [id number] 17:07:00 18:00:00 Encounter Avis Guo Joel [id number] [place] [id number] [place] [id number] 2020-02-13 2020-02-13 Orders Doctor CHEW [id number] 00:00:00 00:00:00 Only Unassigned MARIELOS 350.1.13.10 [place] [address].686 [id number] 2020-01-28 2020-01-28 [facility] [id number] [address] 08:27:00 08:27:00 t [email or web address] [facility] Medicine Medicine [facility] 2020-01-26 2020-01-26 [facility] [id number] 11:04:00 11:04:00 t [email or web address] [facility] Medicine [facility] 2020-01-05 2020-01-05 [facility] [id number] 16:30:00 16:30:00 t [employer] [address] [facility] Medicine l Medicine Outpati ent Clinics 2020-01-03 2020-01-03 [facility] [id number] 10:59:00 10:59:00 t [employer] [address] - [address] [facility] Medicine Outpati ent Clinics 2019-12-17 2019-12-17 Office Corine [facility] [id number] 12:00:00 12:30:00 Visit Bernardino Maldonado 350.1.13.10 [place] [address] [facility] [id number] [address] 2019-11-24 2019-11-24 [facility] [id number] 11:16:00 11:16:00 [facility] Medicine l Medicine Outpati ent Clinics 2019-11-24 2019-11-24 [facility] [id number] 11:15:00 11:15:00 [employer] [facility] Medicine l Medicine Outpati ent Clinics 2019-11-11 2019-11-11 [facility] [id number] 09:41:00 09:41:00 [facility] Medicine l Medicine Outpati ent Clinics 2019-11-10 2019-11-10 [facility] [id number] 10:30:00 10:30:00 [employer] [facility] Medicine Medicine Outpati ent Clinics 2019-03-27 2019-03-27 Emergency [facility] [id number] Gabriel 11:00:00 11:00:00 Health 2019-03-27 2019-03-27 Emergency [facility] [id number] Gabriel 10:55:25 10:55:25 Health 2019-03-27 2019-03-27 Emergency [facility] [id number] Gabriel 08:02:06 08:02:06 Health 2019-03-27 2019-03-27 Emergency [facility] [id number] Gabriel 00:00:00 00:00:00 Health Results Test Description Test Time Test Comments Results Result Comments Source PTT - every 6 hours x 24 hours 2019-03-27 18:07:00 Test Item Value Reference Range Interpretation Comme nts PTT (test code = 18065502) 26.6 23.6- 36.4 Seconds The recommended therapuetic ran ge is an APTT 61-103 sec onds which corresponds to 0.3-0.7 anti Xa u/ml. Lab Interpretation (test code Normal = 43309-9) [facility] GLUCOSE POC docked [id number] 16:51:00 Test Item Value Reference Range Interpretation Comments Glucose POC (test code = 53948785) 98 mg/dL 74-106 Lab Interpretation (test code = Normal 68927-6) [facility]2019-03-27 14:41:00 Test Item Value Reference Range Interpretation Comments CRP, High Sensitivity (Cardiac) 1.0 mg/L <1.0 H (test code = 63116700) Lab Interpretation (test code = Abnormal 75864-4) [facility] [id number] 14:26:00 Test Item Value Reference Range Interpretation Comments Sed Rate (test code = 15289732) 18 0-<20 mm/Hr Lab Interpretation (test code = Normal 32230-7) [facility] [B-Type Natriuretic Peptide]2019-03-27 13:12:00 Test Item Value Reference Range Interpretation Comments B Natriuretic Peptide (BNP) (test 93 pg/mL <=100 code = 18091448) Lab Interpretation (test code = Normal 52481-3) [facility]12 LEAD [id number] 12:48:5612 LEAD EKG FOR [facility] Test Date: [id number] Name: MARCOS RAMOS Department: 5520Patient ID: [id number] Room: Gender: M 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 MeasurementsIntervals [place] Rate: 74 P: 37PR: 164 QRS: -28QRSD: 111 T: 11QT: 397 QTc: 442 Interpretive StatementsSINUS RH YTHMBORDERLINE LEFT AXIS DEVIATION [QRS AXIS < -20]MODERATE INTRAVENTRICULAR CONDUCTION DELAY [110+ ms QRS DURATION]MINIMAL VOLTAGE CRITERIA FOR LVH, CONSIDER NORMAL VARIANT [MEETS CRITERIA INONE OF: R(aVL), S(V1), R(V5), R(V5/V6)+S(V1)]Electronically Signed On 03-27-2019 12:48:54 CDT by Audi simmons M.D.[facility] DOPPLER LOWER EXTREMITY VENOUS, UNILATERAL OR [id number] 12:24:51IMPRESSION: Occlusive deep venous thrombosis involving the [...] report.Signed By: Gary Sierra MD, 03/27/2019 12:24 [facility] Comprehensive Metabolic [id number] 12:17:00 Test Item Value Reference Range Interpretation Comments Sodium (test code = 2951-2) 140 mmol/L 136-145 Potassium (test code = 2823-3) 4.1 mmol/L 3.5-5.1 Chloride (test code = 2075-0) 104 mmol/L 98-107 CO2 (test code = 89314010) 28 mmol/L 21-31 Glucose (test code = 25270900) 146 mg/dL 70-110 H Calcium (test code = 89452173) 9.1 mg/dL 8.6-10.3 Urea Nitrogen (test code = 25.0 mg/dL 7-25 62202262) Creatinine (test code = 1.0 mg/dL 0.7-1.3 73378302) Alkaline Phosphatase (test 89 U/L 34-104 code = 94893848) ALT (test code = 61069667) 30 U/L 7-52 AST (test code = 45255899) 21 U/L 13-39 Total Protein (test code = 7.3 g/dL 6-8.3 2885-2) GFR, Estimated (test code = 77 >=90 mL/min/1.73 m2 L 37917664) Albumin (test code = 29894-8) 4.0 g/dL 4.2-5.5 L Anion Gap (test code = 8 mmol/L 5-16 72594776) Lab Interpretation (test code Abnormal = 59840-6) [facility] CHEST 2 [id number] 12:02:29IMPRESSION: Mild central pulmonary vascular congestion. No [...] 03/27/2019 12:02 PMHarris HealthXRAY FOOT 3 VIEWS [id number] 11:51:43IMPRESSION: Radiographic findings compatible with osteomyelitis of [...] report.Signed By: Gary Sierra MD, 03/27/2019 11:51 [facility]/INR/[id number] 11:27:00 Test Item Value Reference Range Interpretation Comments PT (test code = 5902-2) 12.3 11.8- 15.0 Seconds INR (test code = 0.9 Refer to INR 2.0 - 3.0 for moderate 12064467) ranges intensity anticoagulation 2.5 - 3.5 for high in tensity anticoagulation PTT (test code = 25.9 23.6- 36.4 The recomm ended 53254783) Seconds therapuetic ran ge is an APTT 61-103 sec onds which correspon ds to 0.3-0.7 anti Xa u/ml. Lab Interpretation Normal (test code = 56870-6) [facility]/[id number] 11:15:00 Test Item Value Reference Range Interpretation [...] 32.5 g/dL 32-36 RDW (test code = 17333-9) 50.3 fL 35.1-43.9 H Platelet (test code = 777-3) 216 K/uL 150-400 Mean Platelet Volume (test code = 10.2 fL 9.4-12.4 42191-4) Percent NRBC (test code = 40506188) 0.0 % Neutrophil (test code = 770-8) 53.9 % 34-67.9 Lymphs (test code = 736-9) 32.8 % 21.8-50 Monocytes (test code = 5905-5) 11.0 % 5.3-12 Eos (test code = 713-8) 1.5 % 0.8-5 Basos (test code = 706-2) 0.2 % 0.2-1.2 Immature Granulocytes (test code = 0.6 % 0-0.5 H 55357665) Neutrophils (Absolute) (test code = 2.50 K/uL 1.78-5.36 33790164) Lymphs (Absolute) (test code = 1.52 K/uL 1.32-3.57 88708408) Monocytes(Absolute) (test code = 0.51 K/uL 0.3-0.82 34363305) Eos (Absolute) (test code = 0.07 K/uL 0.04-0.54 87905628) Baso (Absolute) (test code = 0.01 K/uL 0.01-0.08 93240300) Immature Grans (Abs) (test code = 0.03 K/uL 0-0.03 56322784) Absolute NRBC (test code = 0.00 K/uL 63890195) Lab Interpretation (test code = Abnormal 20970-5) [facility]
--- OUTSIDE RECORDS SUMMARY | 2020-03-04 20:10 | XMS REPORT ---
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
--- OUTSIDE RECORDS SUMMARY | 2020-03-04 20:10 | XMS REPORT ---
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
--- OUTSIDE RECORDS SUMMARY | 2020-03-04 20:10 | XMS REPORT ---
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 Active deficit Problem Generalized anxiety disorder F41.1 Active Problem Mixed hyperlipidemia E78.2 Active Problem Chronic pain syndrome G89.4 Active Medications Medication Code Code Instructions Start End Status Dosage System Date Date Albuterol [facility] 37563471332 108 (90 Base) Active 1 pu ff as needed Sulfate HFA MCG/ACT Inhalation every 4 hrs Clonazepam ND 97492060105 0.5 MG Orally Active 1 t ablet at Once a day bedtime Divalproex ND 00380615379 500 MG Orally Active 1 t ablet Sodium ER Once a day BusPIRone HCl ND 53953601356 10 MG Orally Active 1 tablet Twice a day Metoprolol ND 08398484749 50 MG Orally Active 1 ta blet with Tartrate Twice a day food NovoLIN 70/30 ND 65372889376 () 100 Active IN JECT FlexPen UNIT/ML SUBQUTANEOUSLY 65 UNITS TWICE DAILY Victoza ND 12135376281 18 MG/3ML Active Inject 1.8 Subcutaneous mg/day Once a day Advair Diskus [facility] 93638573580 250-50 Active 1 puff MCG/DOSE Inhalation Twice a day Hydrocodone-Misael ND 48580261569 10-325 MG Active 1 tablet as taminophen Orally every 6 needed hrs Benztropine ND 08595717176 0.5 MG Orally Active 1 tablet at Mesylate Once a day bedtime Eliquis [facility] 46970065137 5 MG Active TAKE 1 TABLE T BY MOUTH TWICE DAILY UltiCare Micro ND 79936866874 32G X 4 MM Active US E ONE NEEDLE Pen [place] THREE TIMES DAILY WITH VICTOZA AND NOVOLIN FLEXPEN True Metrix [facility] 92420041779 - Active USE TO T EST Blood Glucose BLOOD SUGA R 1-2 Test TIMES EVERY DAY NovoLIN 70/30 ND 04840272117 () 100 Active In ject 65 units FlexPen UNIT/ML Subcutaneous BID Risperidone ND 85274794104 4 MG Orally Active 1 ta blet Once a day Amphetamine-Dex [facility] 41891873031 30 MG Orally Active 1 tablet troamphetamine Twice a day Tramadol HCl [facility] 55034483653 50 MG Orally Active 1 tablet as Once a day needed Pen Upland [facility] 55661073865 32G x 4 mm Active N/s /6" n/s once a day Losartan [facility] 43945970247 50 MG Orally Active 1 tabl et Potassium Once a day Duloxetine HCl [facility] 94039815504 60 MG Orally Active 1 capsule Once a day Atorvastatin [facility] 56570566276 40 MG Orally Active 1 tablet Calcium Once a day Results No Known Results Summary Purpose eClinicalWorks Submission
--- OUTSIDE RECORDS SUMMARY | 2020-03-04 20:11 | XMS REPORT ---
[...] J44.9 Active disease, unspecified COPD type Problem vp cardiovascular (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 Z79.4 Active Problem [...]
--- OUTSIDE RECORDS SUMMARY | 2020-03-04 20:12 | XMS REPORT ---
:1960 Author Organization [facility] Address [address] [place], [address]. [address] [place] [address] Care Team Providers Name Role Phone Dietrich Unavailable [phone] PROBLEMS Type Condition ICD9-CM JEL88-[id number] Onset Condition SNOMED Code Notes Code Code Dates Status Problem Tobacco use F17.200 Active 272110128 disorder Problem Mixed E78.2 Active 951406032 hyperlipidemia Problem Panic disorder F41.0 Active 020889847 [episodic paroxysmal anxiety] Problem Seizures R56.9 Active 70702749 Problem Chronic pain G89.4 Active 869642342 syndrome Problem History of Z86.711 Active 967195782 pulmonary embolism Problem Generalized F41.1 Active 64209555 anxiety disorder Problem Current moderate F32.1 Active 65538828 episode of major depressive disorder without prior episode Problem Bipolar affective F31.32 Active 077183222 disorder, currently depressed, moderate Problem Chronic J44.9 Active 33370654 obstructive pulmonary disease, unspecified COPD type Problem Type 2 diabetes E11.22 Active 908466364628 mellitus with diabetic chronic kidney disease Problem Continuous opioid F11.20 Active 744373564 dependence Problem Chronic kidney N18.3 Active 039472950 disease, stage 3 (moderate) Problem Essential I10 Active 73448060 hypertension Problem History of CVA I69.30 Active 420437917 with residual deficit Problem Attention deficit F90.2 Active 90643509 hyperactivity disorder (ADHD), combined type 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 587512706 (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 Problem Type 2 diabetes E11.65 Active 09979260 mellitus with hyperglycemia ALLERGIES No Known Allergies ENCOUNTERS from 1960 to 2020-03-03 Encounter Location Date Provider Diagnosis Sanjuana Roger [address] [place] [address] IMMUNIZATIONS Vaccine Route Administration Date Status Prevnar 13 -Pneumonia Vaccine Unknown Jul 12, 2019 Ad ministered SOCIAL HISTORY Tobacco Use: Social History Observation Description Date Details (start date - stop date) Current Smoker Sex Assigned At : Social History Observation Description Sex Assigned At Unknown Alcohol Screen Question Answer Notes Did you have a drink containing alcohol in the past year? No Points 0 Interpretation Negative Tobacco Use/Smoking Question Answer Notes Are you a current smoker How many cigarettes a day do you smoke? 5 or less How often do you smoke cigarettes? some days, but not every day REASON FOR REFERRAL No Information VITAL SIGNS No information MEDICATIONS Medication SIG (Take, Route, Frequency, Start Date End Date Status Duration) Duloxetine HCl 60 MG 1 capsule Orally Once a day Active Advair Diskus 250-50 1 puff Inhalation Twice a day Active MCG/DOSE BusPIRone HCl 10 MG 1 tablet Orally Twice a day Active Losartan Potassium 50 MG 1 tablet Orally Once a day for Active 90 days Divalproex Sodium ER 500 MG 1 tablet Orally Once a day Active Risperidone 4 MG 1 tablet Orally Once a day Active Clonazepam 0.5 MG 1 tablet at bedtime Orally Active Once a day Benztropine Mesylate 0.5 MG 1 tablet at bedtime Orally Active Once a day Atorvastatin Calcium 40 MG 1 tablet Orally Once a day for Active 90 days UltiCare Micro Pen [place] USE ONE NEEDLE THREE TIMES Active 32G X 4 MM DAILY WITH VICTOZA AND NOVOLIN FLEXPEN for 34 NovoLIN 70/30 FlexPen INJECT SUBQUTANEOUSLY 65 UNITS Active (70-30) 100 UNIT/ML TWICE DAILY for 34 NovoLIN 70/30 FlexPen Inject 65 units Subcutaneous Active (70-30) 100 UNIT/ML BID for 90 days Victoza 18 MG/3ML Inject 1.8 mg/day Subcutaneous Active Once a day for 90 days Albuterol Sulfate HFA 108 1 puff as needed Inhalation Active (90 Base) MCG/ACT every 4 hrs Hydrocodone-Acetaminophen 1 tablet as needed Orally Active 10-325 MG every 6 hrs Metoprolol Tartrate 50 MG 1 tablet with food Orally Active Twice a day for 90 days Tramadol HCl 50 MG 1 tablet as needed Orally Once Active a day Eliquis 5 MG TAKE 1 TABLET BY MOUTH TWICE Active DAILY for 30 Amphetamine-Dextroamphetamin 1 tablet Orally Twice a day Active e 30 MG Pen [place] 32G x 4 mm 1/6" N/s n/s once a day for 90 days Active True Metrix Blood Glucose USE TO TEST BLOOD SUGAR 1-2 Active Test - TIMES EVERY DAY for 50 PROCEDURES No Information RESULTS No Results REASON FOR VISIT Pt non-compliance, pic line removal order request MEDICAL (GENERAL) HISTORY Type Description Date Surgical History Eyes Surgical History Right knee Surgical History Back, Neck Surgical History Left big toe amputated 2019 Surgical History Groin 1988 Surgical History Both hands Goals Section No Information Health Concerns No Information MEDICAL EQUIPMENT No Information MENTAL STATUS No Information FUNCTIONAL STATUS No Information ASSESSMENTS No Information PLAN OF TREATMENT Medication Medication Name Sig Start Date Stop Date Atorvastatin Calcium 40 MG 1 tablet Orally Once a day for 90 days UltiCare Micro Pen [place] 32G USE ONE NEEDLE THREE TIMES DAILY X 4 MM WITH VICTOZA AND NOVOLIN FLEXPEN for 34 Pen [place] 32G x 4 mm 1/6" N/s n/s once a day for 90 days Victoza 18 MG/3ML Inject 1.8 mg/day Subcutaneous Once a day for 90 days Eliquis 5 MG TAKE 1 TABLET BY MOUTH TWICE DAILY for 30 Losartan Potassium 50 MG 1 tablet Orally Once a day for 90 days Metoprolol Tartrate 50 MG 1 tablet with food Orally Twice a day for 90 days NovoLIN 70/30 FlexPen (70-30) INJECT SUBQUTANEOUSLY 65 UNITS 100 UNIT/ML TWICE DAILY for 34 NovoLIN 70/30 FlexPen (70-30) Inject 65 units Subcutaneous BID 100 UNIT/ML for 90 days Next Appt Details Provider Name:Sylvain Dietrich, 2020-03-07 0 8:30:00 AM, [address], [address], [place], [address], Insurance Providers Payer Name Payer Address Payer Insured Patient Coverage Cover age Phone Name Relationship to Start Date End Date Insured MEDICARE Attn Part B [id number] Aries Fry [employer] Claims [address] [facility] [address] CHO [address] [address] [phone] Fry [facility] [address] [place] [address] [id number]
--- OUTSIDE RECORDS SUMMARY | 2020-03-04 20:12 | XMS REPORT | Summary of Care ---
:1960 Author Organization [facility] Address [address] [place] [address] Care Team Providers Name Role Phone Sylvain Dietrich Primary Care Provider Reason for Visit Reason Comments SWELLING Legs Auth/Cert Status Reason Specialty Diagnoses / Referred By Referred To Procedures Contact Contact Emergency Medicine [facility] Em ergency Dept [address] [place] [address] Fax: Encounter Details Date Type Department Care Team Description 03/03/2020 Emergency [facility]-Emergency Trinh Roth FNP Diabetic ulcer of toe associated with ty pe 2 diabetes mellitus, unspecified laterality, unspecified ulcer stage (Primary Dx); Department [address] [place] [address] Edema of both lower extremities; [address] [place] [address] Obesity ( BMI 30-39.9); Drive [address] Elevated serum creatinine; [place] [address] PICC (peripherally inserted central cath eter) in place [phone] Allergies No Known Allergiesdocumented as of this encounter (statuses as of 03/03/2020) Medications Medication Sig Dispensed Refills Start Date End Date Status ADDERALL 20 MG ORAL TAB take one tab by 60 0 08/15/2005 Active mouth twice daily Additional Information Patient taking differently: 30 mg Oral BID, Reported on 02/14/2020 1:08 PM meclizine (ANTIVERT) 25 Take 1 Tab by mouth 3 12 Tab 0 10/07 Active mg tablet (three) times daily as needed for Dizziness. traMADOL (ULTRAM) 50 mg Take 1 tablet by 0 6 Active tablet mouth three times daily. HYDROcodone-acetaminoph Take 1 tablet by 0 Active en 10-325 mg tablet mouth 3 (three) times daily. risperiDONE 4 mg Take 1 tablet by 30 tablet 5 02/18/2020 Active tabletIndications: Toe mouth at bedtime. infection metoprolol tartrate 50 Take 1 tablet by 60 tablet 0 02/18/2020 03/19/2020 Active mg tabletIndications: mouth 2 (two) times Toe infection daily for 30 days. clonazePAM 1 mg Take 1 tablet by 30 tablet 0 02/18/20202019 Active tabletIndications: Toe mouth 2 (two) times infection daily as needed (anxiety) for up to 30 days. benztropine 0.5 mg Take 1 tablet by 30 tablet 5 02/18/202004/2020 Active tabletIndications: Toe mouth at bedtime for infection 30 days. dextroamphetamine-amphe Take 1 tablet by 60 tablet 0 0 03/19/2020 Active tamine 30 mg mouth 2 (two) times tabletIndications: Toe daily for 30 days. infection divalproex ER 500 mg 24 Take 2 tablets by 60 tablet 0 02/18/20 20 03/19/2020 Active hr tabletIndications: mouth at bedtime for Toe infection 30 days. losartan 25 mg Take 3 tablets by 90 tablet 0 02/19/20202019 Active tabletIndications: Toe mouth daily for 30 infection days. pantoprazole 40 mg EC Take 1 tablet by 30 tablet 0 02/19/2020 03/20/2020 Active tabletIndications: Toe mouth daily for 30 infection days. collagenase 250 Apply to affected 30 g 0 02/19/2020 Active unit/gram area(s) daily. ointmentIndications: Toe infection hydrALAZINE 25 mg Take 1 tablet by 30 tablet 0 02/19/202003/09 Active tabletIndications: Toe mouth daily for 30 infection days. insulin NPH and regular inject 65 Units under 39 mL 0 02/0703/19/2020 Active human 70-30 100 unit/mL the skin 2 (two) (70-30) times daily before injectionIndications: breakfast and dinner Toe infection for 30 days. documented as of this encounter (statuses as of 03/03/2020) Active Problems Problem Noted Date Obesity (BMI 30-39.9) 02/14/2020 Diabetic infection of right foot 02/13/2020 Altered mental state 08/11/2017 Hyperglycemia 06/16/2017 Bipolar I disorder, most recent episode (or current) d epressed, severe, 08/13/2005 without mention of psychotic behavior documented as of this encounter (statuses as of 03/03/2020) Immunizations Name Administration Dates Next Due Pneumococcal [...] been in contact with No / Unsure 03/03/2020 6:14 PM CDT someone who was confirmed or suspected to have Coronavirus / COVID-19? documented as of this encounter Last Filed Vital Signs Vital Sign Reading Time Taken Comments Blood Pressure 179/85 03/03/2020 9:00 PM CDT Pulse 79 03/03/2020 9:00 PM CDT Temperature 37.2 C (98.9 F) 03/03/2020 6:34 PM CDT Respiratory Rate 18 03/03/2020 9:00 PM CDT Oxygen Saturation 96% 03/03/2020 9:00 PM CDT Inhaled Oxygen Concentration - - Weight 95.3 kg (210 lb) 03/03/2020 6:34 PM CDT Height - - Body Mass Index 28.48 02/13/2020 4:47 PM CDT documented in this encounter Discharge Instructions Trinh Morris FNP - 03/03/2020Please return to the ER if you have any increased redness, drainage, or any worsening swelling, any fever, chills, nausea or vomiting, or any other symptom you feel is abnormal. Please follow up with your PCP for wound recheck. Take all antibiotics as prescribed. Thank you. Please continue to take Vancomycin as directed by doctor. Please make sure Home Health agency is checking vancomycin levels. His kidney function is improving from last admission. If his regular doctor wants him to see a kidney doctor, this can be done as an outpatient follow up. He did not meet criteria for admission to [facility]. AttachmentsThe following attachments cannot be sent through Care Everywhere.Skin Infection, Cellulitis (Zambian)Diabetic Foot Pressure Injuries, Discharge Instructions (Zambian)documented in this encounter ED Notes Pat García RN - 03/03/2020 6:33 PM CDT60 year old male coming to the ER for swelling in the lower extremities. Patient has been treating the infection at home with home health. Patient reports hs legs are painful. documented in this encounter Miscellaneous Notes ED Nurse Note - Pat Moffett RN - 03/03/2020 11:01 PM CDTHouse supervisor decorating in to discuss concerns and results with sister and patient on why he doesn't meet admission criteria. D Nurse Note - Estrellita Chapman RN - 03/03/2020 10:43 PM CDT D Nurse Note - Aleksandra Nassar RN - 03/03/2020 10:33 PM CDTPt given printed and verbal discharge instructions regarding pedal edema, encouraged hydration. 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 Advised to seek medical attention for new/prolonged/worsening of symptoms. No adverse reaction to meds given in ER noted upon discharge. PIV d'cd, dressing to site, catheter in tact. Awake, alert oriented, resp reg unlabored, skin w/d, pt leaving amb with steady gait, in no apparent distress. D Nurse Note - Farooq Thomas RN - 03/03/2020 10:33 PM CDTExtended discharge instructions explained to patient and sister. supervisor laboratory animal facility speaking with sister now. documented in this encounter Plan of Treatment Health [...] 10/18/2019, 06/17/2017, Additional history exists CREATININE (SERUM) 02/17/2021 02/18/2020, 02/17/2020, 02/16/2020, Additional history exists documented as of this encounter Implants Implanted Type Area Steam Shovel Runner Device Identifier Shelf Exp iration Model / Date Serial / L ot Pain Pump Pain Pump documented as of this encounter Procedures Procedure Name Priority Date/Time Associated Diagnosis Comme nts VANCOMYCIN TROUGH STAT 03/03/2020 7:34 Edema of both lower Results for this PM CDT extremities procedure are i n the results section. COVID-19 (ID NOW STAT 03/03/2020 7:07 Edema of both lower Results for this RAPID TESTING) PM CDT extremities procedure are in the results section. URINALYSIS STAT 03/03/2020 7:04 Edema of both lower Resu lts for this PM CDT extremities procedure are i n the results section. N-TERMINAL PRO-BNP STAT 03/03/2020 6:52 Edema of both lowe r Results for this PM CDT extremities procedure are i n the results section. CBC WITH DIFF STAT 03/03/2020 6:52 Edema of both lower Res ults for this PM CDT extremities procedure are i n the results section. BASIC METABOLIC STAT 03/03/2020 6:52 Edema of both lower R esults for this PANEL (NA, K, CL, PM CDT extremities procedure are in CO2, GLUCOSE, BUN, the resul ts CREATININE, CA) section. HEPATIC FUNCTION STAT 03/03/2020 6:52 Edema of both lower Results for this PANEL (00800) PM CDT extremities procedure are in (ALB,T.PRO,BILI the results T,BU/BC,ALT,AST,ALK section. PHOS) CONSENT/REFUSAL FOR Routine 03/03/2020 6:14 DIAGNOSIS AND PM CDT TREATMENT documented in this encounter Results Vancomycin Trough Level - Draw stat (03/03/2020 7:34 PM CDT) Pathologist Sig nature VANCO TROUGH 12.2 10.0 - 20.0 ug/mL [facility] Specimen Blood - VENOUS Narrative Performed At Toxic Range: >20 ug/mL [facility] 15-20 ug/mL is recommended for severe infection or when Vancomycin KUNAL is greater than or equal to 2. Performing Organization Address City/State/Zipcode Phone Number [facility] CLIA: [id number] [place] [address] COVID-19 (ID NOW RAPID TESTING) (03/03/2020 7:07 PM CDT) SARS-CoV-2 Rapid ID Not Detected Not Detected [facility] Specimen Swab - NASOPHARYNGEAL SWAB Narrative Performed At [facility] NOW COVID-19 Assay is an isothermal nucleic [facility] acid amplification test intended for the qualitative detection of nucleic acid from SARS-CoV-2 viral RNA in nasopharyngeal (LEAD CARGOMAN) specimens. It is used under Emergency Use [...] testing if clinically indicated. Performing Organization Address [facility] Phone Number [facility] CLIA: [id number] [place] [address] LABORAT[address] [facility] [address] Urinalysis (03/03/2020 7:04 PM CDT) Pathologist Sig nature APPEARANCE Hazy (A) Clear [facility] COLOR Yellow Yellow [facility] PH 6.0 4.8 - 8.0 [facility] SP GRAVITY 1.020 1.003 - 1.030 [facility] GLU U QUAL Normal Normal [facility] BLOOD 1+ (A) Negative [facility] KETONES Negative Negative [facility] PROTEIN 500 mg/dL (A) Negative [facility] UROBILIN Normal Normal [facility] BILIRUBIN Negative Negative [facility] NITRITE Negative Negative [facility] [place] Negative Negative [facility] RBC/HPF 9 (H) 0 - 3 HPF [facility] WBC/HPF 2 0 - 5 HPF [facility] BACTERIA Negative Negative [facility] MUCOUS Slight (A) Negative LPF [facility] HYAL CAST 6 (H) <=2 LPF [facility] Specimen Urine - URINE, CLEAN CATCH Performing Organization Address [facility] Phone Number [facility] CLIA: [id number] [place] [address] [place] [address] Drive N-TERMINAL PRO-BNP (03/03/2020 6:52 PM CDT) Pathologist Sig nature NT-proBNP 893 (H) <=125 pg/mL [facility] Specimen Blood - VENOUS Narrative Performed At [facility] has been reported to cause a negative [facility] bias, interpret results relative to patient's use of biotin. Performing Organization Address [facility] Phone Number [facility] CLIA: [id number] [place] [address] LABORATORY [address] [facility] Hepatic Function Panel (ALB, T.PRO, BILI T, BU/BC, ALT, AST, ALK PHOS) (03/03/2020 6:52 PM CDT) Pathologist Sig nature TOTAL BILI 0.4 0.1 - 1.1 mg/dL [facility] BILI UNCON 0.5 0.1 - 1.1 mg/dL [facility] BILI CONJ 0.0 0.0 - 0.3 mg/dL [facility] T PROTEIN 7.5 6.3 - 8.2 g/dL [facility] ALBUMIN 3.8 3.5 - 5.0 g/dL [facility] ALK PHOS 67 34 - 122 U/L [facility] ALTv 34 5 - 50 U/L [facility] AST(SGOT) 44 (H) 13 - 40 U/L [facility] Specimen Blood - VENOUS Performing Organization Address [facility] Phone Number [facility] CLIA: [id number] [place] [address] [place] [address] Basic Metabolic Panel (NA, K, CL, CO2, GLUCOSE, BUN, CREATININE, CA) (03/03/2020 6:52 PM CDT) NA 135 135 - 145 [facility] mmol/L [facility] K 4.6 3.5 - 5.0 [facility] mmol/L [facility] CL 98 98 - 108 mmol/L [facility] CO2 TOTAL 29 23 - 31 mmol/L [facility] AGAP 8 2 - 16 [facility] BUN 24 (H) 7 - 23 mg/dL [facility] GLUCOSE 73 70 - 110 mg/dL [facility] CREATININE 1.57 (H) 0.60 - 1.25 [facility] mg/dL HOSPITAL LAB[facility]ATORY CALCIUM 8.7 8.6 - 10.6 [facility] mg/dL HOSPITAL LABORATORY eGFR Calculation 45.4 mL/min/1.73m2 [facility] ([facility] [place]) eGFR Calculation 55.1 mL/min/1.73m2 [facility] () [facility] Specimen Blood - VENOUS Narrative Performed At Association of Glomerular Filtration Rate (GFR) [facility] and Staging of Kidney Disease* [...] tests). Performing Organization Address City/State/Zipcode Phone Number [facility] CLIA: [id number] [place], [place] [id number] LABORATORY [address] CBC with Differential (03/03/2020 6:52 PM CDT) [facility] WBC 5.36 4.20 - 10.70 [facility] 10*3/L [facility] RBC 3.44 (L) 4.26 - 5.52 [facility] 10*6/L [facility] HGB 10.5 (L) 12.2 - 16.4 [facility] g/dL [facility] HCT 31.5 (L) 38.4 - 49.3 % [facility] MCV 91.6 81.7 - 95.6 fL [facility] MCH 30.5 26.1 - 32.7 pg [facility] MCHC 33.3 31.2 - 35.0 [facility] g/dL [facility] RDW-SD 44.3 38.5 - 51.6 fL [facility] RDW-CV 13.4 12.1 - 15.4 % [facility] PLT 289 150 - 328 [facility] 10*3/L HOSPITAL LABORATORY MPV 9.7 (L) 9.8 - 13.0 fL [facility] NRBC/100 WBC 0.0 0.0 - 10.0 /100 [facility] WBCs [facility] NRBC x10^3 <0.01 10*3/L [facility] GRAN MAT (NEUT) % 53.6 % [facility] IMM GRAN % 0.90 % [facility] LYMPH % 30.2 % [facility] MONO % 12.1 % [facility] EOS % 2.8 % [facility] BASO % 0.4 % [facility] GRAN MAT x10^3(ANC) 2.87 1.99 - 6.95 [facility] 10*3/uL [facility] IMM GRAN x10^3 0.05 0.00 - 0.06 [facility] 10*3/uL [facility] LYMPH x10^3 1.62 1.09 - 3.23 [facility] 10*3/uL [facility] MONO x10^3 0.65 0.36 - 1.02 [facility] 10*3/uL [facility] EOS x10^3 0.15 0.06 - 0.53 [facility] 10*3/uL [facility] BASO x10^3 <0.03 0.01 - 0.09 [facility] 10*3/uL [facility] Specimen Blood - VENOUS Performing Organization Address City/State/Zipcode Phone Number [facility] CLIA: [id number] [place] [address] documented in this encounter Visit Diagnoses Diagnosis Diabetic ulcer of toe associated with ty pe 2 diabetes mellitus, unspecified laterality, unspecified ulcer stage - Pr imary Edema of both lower extremities Obesity (BMI 30-39.9) Obesity, unspecified Elevated serum creatinine Other nonspecific findings on examinatio n of blood PICC (peripherally inserted central cath eter) in place Fitting and adjustment of vascular basilia ter documented in this encounter Administered Medications Medication Order MAR Action Action Date Dose Rate Site morpHINE injection 4 mg Given 03/03/2020 7:58 PM CDT 4 mg 4 mg, Slow IV Push, ONCE, 1 dose, Fri03/03/20 at 2045, STAT ondansetron (ZOFRAN (PF)) injection 4 mg Given 03/03/2020 7:58 PM CDT 4 mg 4 mg, Slow IV Push, ONCE, 1 dose, Fri03/03/20 at 2045, DEEPALI documented in this encounter Additional Health Concerns Infection Onset Date Last Indicated Resolved Time COVID-19 Rule Out 03/03/2020 03/03/2020 03/03/2020 9: 14 PM CDT documented as of this encounter Insurance Payer Benefit Plan / Subscriber ID Effective Phone Address T ype Group Dates MEDICARE MEDICARE PART [id number] 2004-Pres [phone] Medicare A & B ent [id number] [place] [id number] MARQUIS CHO [id number] 2015-Pres [address] Medica id HEALTHCARE - HEALTHCARE ent [id number] MANAGED MEDICAID [place], [place] documented as of this encounter"
--- OUTSIDE RECORDS SUMMARY | 2020-03-04 20:12 | XMS REPORT ---
:1960 Author Organization [facility] Address [address] [place], [address] [place] [address] Care Team Providers Name Role Phone Dietrich Unavailable [phone] PROBLEMS Type Condition ICD9-CM DNC07-EU Onset Condition SNOMED Code Notes Code Code Dates Status Problem Tobacco use F17.200 Active 645222420 disorder Problem Mixed E78.2 Active 935430808 hyperlipidemia Problem Panic disorder F41.0 Active 525429164 [episodic paroxysmal anxiety] Problem Seizures R56.9 Active 35996954 Problem Chronic pain G89.4 Active 451123980 syndrome Problem History of Z86.711 Active 729762738 pulmonary embolism Problem Generalized F41.1 Active 59889389 anxiety disorder Problem Current moderate F32.1 Active 71024303 episode of major depressive disorder without prior episode Problem Bipolar affective F31.32 Active 518870697 disorder, currently depressed, moderate Problem Chronic J44.9 Active 38311408 obstructive pulmonary disease, unspecified COPD type Problem Type 2 diabetes E11.22 Active 116363909054 mellitus with diabetic chronic kidney disease Problem Continuous opioid F11.20 Active 770543514 dependence Problem Chronic kidney N18.3 Active 342788151 disease, stage 3 (moderate) Problem Essential I10 Active 41655251 hypertension Problem History of CVA I69.30 Active 229653585 with residual deficit Problem Attention deficit F90.2 Active 20214686 hyperactivity disorder (ADHD), combined type 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 Active 987014772 (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 Problem Type 2 diabetes E11.65 Active 08990121 mellitus with hyperglycemia ALLERGIES No Known Allergies ENCOUNTERS from 1960 to 2020-03-02 Encounter Location Date Provider Diagnosis Sanjuana Roger [address], [place] [address] IMMUNIZATIONS Vaccine Route Administration Date Status Prevnar [...] for Active 90 days UltiCare Micro Pen Earp USE ONE NEEDLE THREE TIMES Active 32G [...] a day Active e 30 MG Pen Earp 32G x 4 mm 1/6" N/s n/s once a day for 90 days Active True Metrix Blood Glucose USE TO TEST BLOOD SUGAR 1-2 Active Test - TIMES EVERY DAY for 50 PROCEDURES No Information RESULTS No Results REASON FOR VISIT Lab alert MEDICAL (GENERAL) HISTORY Type Description Date Surgical [...] day for 90 days UltiCare Micro Pen Earp 32G USE ONE NEEDLE THREE TIMES DAILY X 4 MM WITH VICTOZA AND NOVOLIN FLEXPEN for 34 Pen Earp 32G x 4 mm 1/6" N/s n/s [...] 8:30:00 AM, [address], [address], [place], [address], Insurance Providers Payer Name Payer Address Payer Insured Patient Coverage Cover age Phone Name Relationship to Start Date End Date Insured CHO [address] [address] [phone] Fry [facility] [id number] [id number] MEDICARE Attn Part B [id number] Aries Fry [employer] Claims [address] [place] [address]
[2020-03-04] MEDS ORDERED: MORPHINE 4 MG/ML SYR ONE (21:56)
--- NOTE | 2020-03-04 22:08 | ER ---
Nurse's Notes [facility] Name: Gasper Fry Age: 60 yrs Sex: Male : 1960 Arrival Date: 03/04/2020 Time: 20:07 Bed 15 Private MD: Diagnosis: Bilateral Foot Pain Presentation: 03/04 20:19 Chief complaint: Patient states: Bilateral foot infections for over 2 weeks. Admitted ll1 to [facility], sent home with IV antibiotics. His kidney function started decreasing. Dr. Dietrich sent him in for eval/possible admission. Coronavirus screen: Client denies travel out of the [place] in the last 14 days. At this time, the client does not indicate any symptoms associated with coronavirus-19. Ebola Screen: Patient denies travel to an Ebola-affected area in the 21 days before illness onset. Initial Sepsis Screen: Does the patient meet any 2 criteria? No. Patient's initial sepsis screen is negative. Risk Assessment: Do you want to hurt yourself or someone else? Patient reports no desire to harm self or others. Onset of symptoms was February 19, 2020. 20:19 Method Of Arrival: Ambulatory 1 20:19 Acuity: DARREL 3 ll1 20:42 Initial Sepsis Screen: Does the patient have a suspected source of infection? Yes: Bone rr5 or joint infection. Historical: - Allergies: 20:22 Narcan (Anaphylaxis); ll1 20:22 Haldol (Anaphylaxis); ll1 - Home Meds: 20:44 Adderall XR 30 mg Oral cp24 1 cap twice a day [Active]; atorvastatin 40 mg Oral tab 1 rr5 tab once daily [Active]; Cogentin Oral 0.5 mg twice a day [Active]; Eliquis 5 mg Oral tab 1 tab 2 times per day [Active]; losartan 50 mg Oral tab 1 tab once daily [Active]; hydrocodone-acetaminophen 10-325 mg Oral tab 1 tab twice a day [Active]; Novolin 70/30 Innolet 45 units Sub-Q 45 units twice a day with meals [Active]; Risperdal 4 mg Oral tab 1 tab 2 times per day [Active]; tramadol 50 mg Oral tab 1 tab twice a day [Active]; Victoza 2-Reid subcutaneous [Active]; Klonopin 0.5 mg Oral tab 1 tab 2 times per day [Active]; Glucophage Oral [Active]; metoprolol tartrate 50 mg Oral tab 1 tab 2 times per day [Active]; - PMHx: 20:22 ADD/ADHD; Bipolar disorder; Hypertension; Chronic pain; CVA; neuropathy; Anxiety; ll1 Cellulitis; Diabetes - IDDM; Seizures; - PSHx: 20:22 Neck Surgery; Knee surgery; Back Surgery; ll1 - Immunization history:: Flu vaccine is up to date. - Social history:: Smoking status: Patient reports the use of cigarette tobacco products, denies chronic smoking, but will smoke occasionally. Screenin:30 Abuse screen: Denies threats or abuse. Denies injuries from another. Nutritional rr5 screening: No deficits noted. Tuberculosis screening: No symptoms or risk factors identified. Fall Risk None identified. Total Martínez Fall Scale indicates No Risk (0-24 pts). Assessment: 20:30 General: Appears in no apparent distress. comfortable, Behavior is calm, cooperative, rr5 appropriate for age. 20:30 Pain: Complains of pain in right foot and left foot Pain currently is 9 out of 10 on a rr5 pain scale. Quality of pain is described as aching, Pain began gradually, Is intermittent. Neuro: Level of Consciousness is awake, alert, obeys commands, Oriented to person, place, time, situation. Cardiovascular: Capillary refill < 3 seconds Patient's skin is warm and dry. Respiratory: Airway is patent Respiratory effort is even, unlabored, Respiratory pattern is regular, symmetrical. GI: No signs and/or symptoms were reported involving the gastrointestinal system. : No signs and/or symptoms were reported regarding the genitourinary system. EENT: No signs and/or symptoms were reported regarding the EENT system. Derm: Skin is intact, Skin temperature is warm Wound noted right foot and left foot Wound is diabetic foot. Musculoskeletal: Circulation, motion, and sensation intact. Capillary refill < 3 seconds. 21:50 Reassessment: Patient appears in no apparent distress at this time. seen and examined rr5 by ED provider discussed the admission process, possible to be transfer to other facility. patient decided to leave and signed AMA. Vital Signs: 20:19 BP 177 / 97; Pulse 87; Resp 18; Temp 98.1; Pulse Ox 95% ; Weight 95.25 kg; Height 6 ft. ll1 (182.88 cm); Pain 9/10; 21:35 BP 165 / 85; Pulse 80; Resp 17; Pulse Ox 99% ; rr5 20:19 Body Mass Index 28.48 (95.25 kg, 182.88 cm) 1 ED Course: 20:07 Patient arrived in ED. cl3 20:21 Triage completed. ll1 20:22 Arm band placed on Patient placed in an exam room, on a stretcher. ll1 20:25 Inder Paredes RN is Primary Nurse. rr5 20:42 Patient has correct armband on for positive identification. Placed in gown. Bed in low rr5 position. Call light in reach. Side rails up X2. Pulse ox on. NIBP on. 20:58 Otto Burgos MD is Attending Physician. [facility] 22:02 No provider procedures requiring assistance completed. Patient did not have IV access wh during this emergency room visit. PT had previous PICC line. 22:07 Sylvain Dietrich DO is Referral Physician. 7 Administered Medications: 21:45 Drug: morphine 4 mg {Note: RASS 0.} Route: IVP; Site: PICC; 22:02 Follow up: Response: No adverse reaction; Pain is decreased; RASS: Alert and Calm (0) 22:01 Not Given (Physician Discretion): morphine 4 mg IM once; RASS on ADMIN: Combtv4, Very wh Agttd3, Agttd2, Rstlss1, AlertClm0, Drwsy-1, Lt Sdtn-2, Mod Sdtn-3, Dp Sdtn-4, UnArsble-5 Outcome: 22:02 AMA AMA form signed 22:02 Condition: stable 22:02 Instructed on follow up and referral plans. 22:10 Patient left the ED. rr5 Signatures: Stephanie León Inder Paredes RN RN rr5 Ketan Roy 3 Keira Roy RN RN 1 Otto Burgos MD MD [facility]
--- NOTE | 2020-03-04 22:08 | EDPHYS ---
Physician Documentation [facility] Name: Gasper Fry Age: 60 yrs Sex: Male : 1960 Arrival Date: 03/04/2020 Time: 20:07 Bed 15 Private MD: ED Physician Otto Burgos HPI: 03/04 21:58 This 60 yrs old Male presents to ER via Ambulatory with complaints of mh7 Infection On Foot. 21:58 The patient presents with pain, that is acute, infection. The complaints affect the mh7 left foot and right foot. Context: Foot infection started 2 weeks ago, seen at another hospital and started on IV antibiotics which he continues at home, states that his PCP told him to come for evaluation/admission today.. Onset: The symptoms/episode began/occurred 2 week(s) ago. Modifying factors: The symptoms are alleviated by nothing, the symptoms are aggravated by weight bearing. Associated signs and symptoms: Pertinent negatives: calf tenderness, fever, nausea, numbness, rash, swelling, tingling, vomiting, warmth, weakness. Severity of symptoms: At their worst the symptoms were moderate, 7 day(s) ago, in the emergency department the symptoms are unchanged. Historical: - Allergies: 20:22 Narcan (Anaphylaxis); ll1 20:22 Haldol (Anaphylaxis); ll1 - Home Meds: 20:44 Adderall XR 30 mg Oral cp24 1 cap twice a day [Active]; atorvastatin 40 mg Oral tab 1 rr5 tab once daily [Active]; Cogentin Oral 0.5 mg twice a day [Active]; Eliquis 5 mg Oral tab 1 tab 2 times per day [Active]; losartan 50 mg Oral tab 1 tab once daily [Active]; hydrocodone-acetaminophen 10-325 mg Oral tab 1 tab twice a day [Active]; Novolin 70/30 Innolet 45 units Sub-Q 45 units twice a day with meals [Active]; Risperdal 4 mg Oral tab 1 tab 2 times per day [Active]; tramadol 50 mg Oral tab 1 tab twice a day [Active]; Victoza 2-Reid subcutaneous [Active]; Klonopin 0.5 mg Oral tab 1 tab 2 times per day [Active]; Glucophage Oral [Active]; metoprolol tartrate 50 mg Oral tab 1 tab 2 times per day [Active]; - PMHx: 20:22 ADD/ADHD; Bipolar disorder; Hypertension; Chronic pain; CVA; neuropathy; Anxiety; ll1 Cellulitis; Diabetes - IDDM; Seizures; - PSHx: 20:22 Neck Surgery; Knee surgery; Back Surgery; ll1 - Immunization history:: Flu vaccine is up to date. - Social history:: Smoking status: Patient reports the use of cigarette tobacco products, denies chronic smoking, but will smoke occasionally. ROS: 21:58 Constitutional: Negative for fever, chills, and weight loss, Eyes: Negative for injury, mh7 pain, redness, and discharge, ENT: Negative for injury, pain, and discharge, Neck: Negative for injury, pain, and swelling, Cardiovascular: Negative for chest pain, palpitations, and edema, Respiratory: Negative for shortness of breath, cough, wheezing, and pleuritic chest pain, Abdomen/GI: Negative for abdominal pain, nausea, vomiting, diarrhea, and constipation, Back: Negative for injury and pain, : Negative for injury, bleeding, discharge, and swelling, Skin: Negative for injury, rash, and discoloration, Neuro: Negative for headache, weakness, numbness, tingling, and seizure, Psych: Negative for depression, anxiety, suicide ideation, homicidal ideation, and hallucinations, Allergy/Immunology: Negative for hives, rash, and allergies, Endocrine: Negative for neck swelling, polydipsia, polyuria, polyphagia, and marked weight changes. Exam: 21:58 Constitutional: This is a well developed, well nourished patient who is awake, alert, mh7 and in no acute distress. Head/Face: Normocephalic, atraumatic. Eyes: Pupils equal round and reactive to light, extra-ocular motions intact. Lids and lashes normal. Conjunctiva and sclera are non-icteric and not injected. Cornea within normal limits. Periorbital areas with no swelling, redness, or edema. Neck: Trachea midline, no thyromegaly or masses palpated, and no cervical lymphadenopathy. Supple, full range of motion without nuchal rigidity, or vertebral point tenderness. No Meningismus. Chest/axilla: Normal chest wall appearance and motion. Nontender with no deformity. No lesions are appreciated. Cardiovascular: Regular rate and rhythm with a normal S1 and S2. No gallops, murmurs, or rubs. Normal PMI, no JVD. No pulse deficits. Respiratory: Lungs have equal breath sounds bilaterally, clear to auscultation and percussion. No rales, rhonchi or wheezes noted. No increased work of breathing, no retractions or nasal flaring. Abdomen/GI: Soft, non-tender, with normal bowel sounds. No distension or tympany. No guarding or rebound. No evidence of tenderness throughout. Back: No spinal tenderness. No costovertebral tenderness. Full range of motion. Skin: Warm, dry with normal turgor. Normal color with no rashes, no lesions, and no evidence of cellulitis. 21:58 Neuro: Awake and alert, GCS 15, oriented to person, place, time, and situation. Cranial nerves II-XII grossly intact. Motor strength 5/5 in all extremities. Sensory grossly intact. Cerebellar exam normal. Normal gait. Psych: Awake, alert, with orientation to person, place and time. Behavior, mood, and affect are within normal limits. 21:58 Musculoskeletal/extremity: Extremities: noted in the left foot and right foot: pain, tenderness, left foot great toe s/p amputation, ROM: intact in all extremities, Circulation is intact in all extremities. Pulses: are normal with no appreciated deficits, Perfusion: the patient is normally perfused throughout, Perfusion: the extremity is normally perfused throughout, Calf tenderness, is absent, Edema, is not appreciated, Sensation intact. Compartment Syndrome exam of affected extremity: is normal. no numbness, no tingling, no sensation deficit, no palor, no weak pulses, Joints: All joints appear normal with full range of motion. Weight bearing: Calves: are non-tender, have equal circumference. Vital Signs: 20:19 BP 177 / 97; Pulse 87; Resp 18; Temp 98.1; Pulse Ox 95% ; Weight 95.25 kg; Height 6 ft. ll1 (182.88 cm); Pain 9/10; 21:35 BP 165 / 85; Pulse 80; Resp 17; Pulse Ox 99% ; rr5 20:19 Body Mass Index 28.48 (95.25 kg, 182.88 cm) ll1 MDM: 21:34 Patient medically screened. [facility] 21:58 Differential diagnosis: sprain, arthritis, gout, cellulitis, osteomyelitis, peripheral mh7 neuropathy. Data reviewed: vital signs, nurses notes. Data interpreted: Pulse oximetry: on room air is 95 %. Interpretation: normal. Refusal of service: The patient/guardian displays adequate decision making capability and despite a detailed discussion of alternatives, benefits, risks, and consequences refuses: Admission to the hospital for further work-up and treatment, all lab tests, all X-rays. 03/05 01:20 ED course: NAD, VSS, no focal neurological deficits. Patient declined any further care [facility] and evaluation here and decided to leave against medical advice. Explained the possibility of permanent disability and/or is serious medical or surgical condition is present and goes untreated. he verbalized that he understood this information as presented. He has a normal mental status and neurological exam. He knows that he can return to the ED if worsening of symptoms or other concerns.. Administered Medications: 03/04 21:45 Drug: morphine 4 mg {Note: RASS 0.} Route: IVP; Site: PICC; 22:02 Follow up: Response: No adverse reaction; Pain is decreased; RASS: Alert and Calm (0) 22:01 Not Given (Physician Discretion): morphine 4 mg IM once; RASS on ADMIN: Combtv4, Very wh Agttd3, Agttd2, Rstlss1, AlertClm0, Drwsy-1, Lt Sdtn-2, Mod Sdtn-3, Dp Sdtn-4, UnArsble-5 Disposition: 03/04/20 22:08 Patient has left against medical advice. Impression: Bilateral Foot Pain. - Patients states they are going to Home. - Condition is Stable. - Discharge Instructions: Foot Pain. Follow up: Sylvain Dietrich, DO; When: Tomorrow; Reason: Worsening of condition, Recheck today's complaints, Continuance of care, Re-evaluation by your physician. - Problem is an ongoing problem. - Symptoms are unchanged. Signatures: Dispatcher [employer] EDMS Stephanie León Inder Paredes RN RN rr5 Keira Roy RN RN ll1 Otto Burgos MD MD 7 Corrections: (The following items were deleted from the chart) 22:03 21:35 Urine Dipstick-Ancillary ordered. [facility] 22:10 22:08 03/04/2020 22:08 Patients has left against medical advice. Impression: Bilateral rr5 Foot Pain. Patient states they are going to Home. Condition is Stable. Follow up: Sylvain Dietrich; When: Tomorrow; Reason: Worsening of condition, Recheck today's complaints, Continuance of care, Re-evaluation by your physician. Problem is an ongoing problem. Symptoms are unchanged. mh7
[2020-03-04 22:39] VITALS: BP 165/85; O2SAT 99
[2020-03-04 22:45] VITALS: TEMP 98.1
== END 2020-03-04 22:10 | disposition left against medical advice (07) ==
LOC: ER 20:06
DX: M79.672 Pain in left foot (principal); M79.671 Pain in right foot; I10 Essential (primary) hypertension; E11.9 Type 2 diabetes mellitus without complications; F31.9 Bipolar disorder, unspecified; F41.9 Anxiety disorder, unspecified; Z79.4 Long term (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; Z79.01 Long term (current) use of anticoagulants; Z88.5 Allergy status to narcotic agent
CPT/HCPCS: 96374; 99283

== ENCOUNTER 2020-03-05 13:24 | Inpatient (IN) | payer OTHER ==
--- OUTSIDE RECORDS SUMMARY | 2020-03-05 13:27 | XMS REPORT | Clinical Summary ---
:1960 Author Organization [facility] Dist[facility] ict Address [facility] [place] [address] Care Team Providers Name Role Phone Unavailable [...] foot, unspecified type; Poorly-controll ed hypertension after 03/05/2019 Social History Tobacco Use Types Packs/Day Years [...] are i n the results section. after 03/05/2019 Results PTT - every 6 hours x 24 hours (03/27/2019 5:34 PM CDT) PTT 26.6 23.6 - 36.4 [facility] Comment: Seconds The recommended therapuetic range is an APTT 61-103 seconds which corresponds to 0.3-0.7 anti Xa u/ml. Specimen Blood Performing Organization Address [facility] Phone Number [facility] [address] [place] [address] [phone] POCT GLUCOSE POC docked device (03/27/2019 4:50 PM CDT) Pathologist Sig [facility] Glucose POC 98 74 - 106 mg/dL [facility] Specimen Blood Performing Organization Address [facility] Phone Number [facility] [address] [place] [address] [phone] CRP (High Sensitivity) (03/27/2019 1:29 PM CDT) Pathologist Sig nature CRP, High Sensitivity 1.0 (H) <1.0 mg/L [facility] (Cardiac) Specimen Blood Performing Organization Address [facility] Phone Number [facility] [address] [place] [address] [phone] SED Rate (03/27/2019 1:29 PM CDT) Pathologist Sig [facility] Sed Rate 18 0-<20 mm/Hr [facility] Specimen Blood Performing Organization Address [facility] Phone Number [facility] [address] [place] [address] DUPLEX DOPPLER LOWER EXTREMITY VENOUS, UNILATERAL OR [...] PM Performing Organization Address City/State/Zipcode Phone Number [facility] XRAY CHEST 2 VIEWS (03/27/2019 11:15 [...] Performed At EXAMINATION: XRAY CHEST 2 VIEWS [facility] INDICATION: shortness of breath, lower e [...] PM Performing Organization Address City/State/Zipcode Phone Number [facility] XRAY FOOT 3 VIEWS MIN (03/27/2019 [...] At EXAMINATION: XRAY FOOT 3 VIEWS MIN [facility] SIDE: Left INDICATION: L foot wound [...] AM Performing Organization Address City/State/Zipcode Phone Number [facility] 12 LEAD EKG (03/27/2019 10:54 AM CDT) 12 LEAD EKG FOR [facility] Test Date: 2019-03-27 Pat Name: MARCOS FRY Depart ent: [id number] Room: Gender: M 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 Measu rements Intervals [place] Rate: 74 P: 37 DE: 164 QRS: -28 QRSD: 111 T: 11 [...] Daniela Betancur M.D. Specimen Performing Organization Address City/[facility]/Zipcode Phone Number [facility] PT/INR/PTT (03/27/2019 10:52 AM CDT) PT [...] Xa u/ml. Specimen Blood Performing Organization Address [facility] Phone Number [facility] [address] [place] [address] [phone] CBC/Diff (03/27/2019 10:51 AM CDT) WBC [...] RDW 50.3 (H) 35.1 - 43.9 fL [facility] Platelet 216 150 - 400 K/uL [facility] Mean Platelet Volume 10.2 9.4 - 12.4 fL [facility] Percent NRBC 0.0 % [facility] [...] [facility] Specimen Blood Performing Organization Address [facility] Phone Number [facility] [address] [place] [address] Comprehensive Metabolic Panel (03/27/2019 10:51 AM CDT) [facility] Sodium 140 136 - 145 [facility] [...] [facility] Specimen Blood Performing Organization Address [facility] Phone Number [facility] [address] [place] [address] BNP [B-Type Natriuretic Peptide] (03/27/2019 10:51 AM CDT) Pathologist Sig nature B Natriuretic Peptide 93 <=100 pg/mL [facility] (BNP) Specimen Blood Performing Organization Address City/State/Zipcode Phone Number [facility] [address] [place] [address] after 03/05/2019 Insurance Payer Benefit Plan / Subscriber ID Effective Dates Phone Addre ss Type Group MEDICARE MEDICARE PART xxxxxxxxxxx 2004-Janis [id number] [place] [address] [place] [id number] MQMB SSI xxxxxxxxx 2013-Nadira [id number] [place] [address]
--- OUTSIDE RECORDS SUMMARY | 2020-03-05 13:28 | XMS REPORT | Continuity of Care Document ---
:1960 Author Organization [facility] t Address [address] [place] [address] Care Team Providers Name Role Phone Roth GODWIN Attending Clinician Nain PRUETT S Attending Clinician Sari VALENCIA Attending Clinician Doctor Unassigned, Name Attending Clinician Unavailable Corine VALENCIA, H Attending Clinician Perry VALENCIA, R Attending Clinician Dorcas VALENCIA, K Attending Clinician Sari VALENCIA Admitting Clinician Payers Payer Name Policy Type Policy Number Effective Date Ex[place] S [facility] [place] 2004 [place] rris A & 00:00:00 Health Bxxxxxxxxxxx/06/2004- [id number], [place] [address] [place] [id number] xxxxxxxxx 2013 [place] MQMB SSI 00:00:00 Health [id number] [address], [place] [address] Problems Condition Condition Condition Status Onset Resolution Last Treating Co mments Source Name Details Category Date Date Treatment Clinician Date Unspecifie Unspecifie Disease Active Overview : d Delirium d Delirium 12-22 psych An derso [...] dante dante 108 Anderso 00:00: n 00 Type 2 Type 2 Disease Active diabetes diabetes Lee o mellitus mellitus n with foot with foot ulcer ulcer Renal Renal Disease Active insufficie insufficie An derso ncy ncy n Chronic Chronic Disease Active pain of pain of Anderso right foot [...] Quantity Comments Source Sex Assigned At Gabriel davis Alcohol intake 2019-03-27 2019-03-27 Ex-drinker Gabriel Hyde lt 00:00:00 00:00:00 (finding) Tobacco use and 2018-12-25 2018-12-25 Current user MD Elio forbes exposure 00:00:00 00:00:00 Smoking Status Start Date Stop Date Source Former smoker 2019-03-27 00:00:00 2019-03-27 00:00:00 Rios Le ealt Current some day smoker 2018-12-25 00:00:00 MD [...] mouth n tablet 33 twice daily. HYDROcodone 2018- Yes 1{tbl} Take 1 MD -acetaminop 7-19 tablet by And erso hen (NORCO) 15:59: mouth 3 n 10 mg-325 33 (three) mg per times a tablet day. apixaban 2018- Yes deep venous 5mg Take 5 mg MD (ELIQUIS) 5 7-19 thrombosis by mouth Anderso mg tablet 15:59: twice n 33 daily. losartan Yes Chronic 25mg Take 1 MD (COZAAR) 25 7-19 pain of tablet (25 Anderso mg tablet 00:00: right foot mg) by n 00 mouth daily. metoprolol 2018- Yes Chronic 25mg Take 1 MD tartrate 7-19 pain of tablet (25 An derso (LOPRESSOR) 00:00: right foot mg) by n 25 mg 00 mouth tablet twice daily. risperiDONE 2018- Yes Chronic 4mg Take 1 M D [...] Yes Chronic 500mg Take 1 MD ol 7-18 pain tablet Anderso (ROBAXIN) 00:00: (500 mg) n 500 mg 00 by mouth tablet every 8 (eight) hours. Victoza Victoza Yes Sylvain Inject 1.[address] [facility] mg/day [facility] Albuterol Albuterol Yes Sylvain [address] [facility] Sulfate HFA Sulfate HFA [facility]rich needed [facility] Duloxetine Duloxetine Yes Sylvain [address] [facility] HCl HCl [facility]rich [facility] Clonazepam Clonazepam Yes Sylvain [address] [facility] Dietrich at bedtime [facility] NovoLIN NovoLIN Yes Sylvain Inject [address] 70/30 70/30 Dietrich units [facility]Pen [facility] Tramadol Tramadol Yes Sylvain [address] HCl HCl Dietrich as needed [facility] Hydrocodone Hydrocodone Yes Sylvain [address] [facility] -Acetaminop -Acetaminop Dietrich as needed [facility] Eliquis Eliquis Yes Sylvain TAKE 1 [facility] TABLET BY [facility] TWICE l DAILY [facility] ent Clinics Benztropine Benztropine Yes Sylvain [address] [facility] Mesylate Mesylate Dietrich at bedtime [facility] Amphetamine Amphetamine Yes Sylvain [address] [facility] [address] -Dextroamph -Dextroamph Dietrich [facility] etamine [facility] Risperidone Risperidone Yes Sylvain [address] [facility] Dietrich [facility] Metoprolol Metoprolol Yes Sylvain [address] [facility] [address] Tartrate Tartrate Dietrich with food [facility] Losartan Losartan Yes Sylvain [address] Potassium Potassium Dietrich [facility] Divalproex Divalproex Yes Sylvain [address] [facility] [address] Sodium ER Sodium ER Dietrich [facility] BusPIRone BusPIRone Yes Sylvain [address] [facility] HCl HCl Dietrich [facility] Pen Curtis Pen Curtis Yes Sylvain N/s [facility] Dietrich [facility] Atorvastati Atorvastati Yes Sylvain [address] [facility] [facility] n Calcium n Calcium Dietrich [facility] Advair Advair Yes Sylvain [address] [facility] [address] Diskus Diskus Dietrich [facility] True Metrix True Metrix Yes Sylvain USE TO [facility] Blood Blood Dietrich TEST BLOOD [facility] Glucose Glucose SUGAR 1-2 Joe cristina Test Test TIMES l EVERY DAY [facility] NovoLIN NovoLIN Yes Sylvain INJECT [facility] t 70/30 70/30 [facility] SUBQUTANEO [facility] FlexPen FlexPen USLY 65 Memori a UNITS l TWICE [facility] DAILY ent Clinics UltiCare UltiCare Yes Sylvain USE ONE [facility] Micro Pen Micro Pen Dietrich NEEDLE Rita kes - Curtis Curtis THREE Memoria TIMES l DAILY WITH [facility] VICTOZA ent AND Clinics NOVOLIN FLEXPEN Vital Signs Vital Name Observation Time Observation Value Comments Source Body height 2019-03-27 17:51:00 182.9 cm Gabriel dickey Body weight 2019-03-27 14:22:[address] [facility] BMI 2019-03-27 14:22:00 29.84 kg/m2 [facility] Systolic blood 2019-03-27 13:16:00 180 mm[Hg] [facility]adaryl [facility] pressure Diastolic blood 2019-03-27 13:16:00 94 mm[Hg] yesica aware [facility] pressure Heart rate 2019-03-27 13:16:00 74 /min [facility] Respiratory rate 2019-03-27 13:16:00 17 /min [facility] Oxygen saturation in 2019-03-27 13:16:00 100 /min [facility] Arterial blood by Pulse oximetry Body temperature 2019-03-27 11:00:00 36.56 Cece [facility] Procedures Procedure Date / Time Performed Performing Clinician Sourc e PTT 2019-03-27 17:34:00 Leyla Beckett [facility] GLUCOSE POC 2019-03-27 16:50:00 Lyssa Amador [facility] SED RATE 2019-03-27 13:29:00 Lyssa Amador [facility] C-REACTIVE PROTEIN HIGH 2019-03-27 13:29:00 Lyssa Amador [facility] SENSITIVITY (CARDIAC) DUPLEX DOPPLER LOWER 2019-03-27 12:02:47 Paul Stone [facility] EXTREMITY VENOUS, UNILATERAL OR LIMITED XRAY FOOT 3 VIEWS MIN 2019-03-27 11:15:07 [facility] XRAY CHEST 2 VIEWS 2019-03-27 11:15:07 Lyssa Amador [facility] 12 LEAD EKG 2019-03-27 10:54:22 Lyssa Amador [facility] PT/INR/PTT 2019-03-27 10:52:00 Lyssa Amador [facility] CBC/DIFF 2019-03-27 10:51:00 Lyssa Amador [facility] B-TYPE NATRIURETIC PEPTIDE 2019-03-27 10:51:00 Lyssa Amador [facility] (BNP) COMPREHENSIVE METABOLIC 2019-03-27 10:51:00 Lyssa Amador [facility] PANEL CBC 2019-03-27 10:51:00 Lyssa Amador [facility] Plan of Care Planned Activity Planned Date Details Comments Source Future Scheduled Test 2020-03-09 00:00:00 IMM Influenza [facility] Seasonal Mar to August (>/= 19 yrs) [code = IMM Influenza Seasonal Mar to August (>/= 19 yrs)] Future Scheduled Test 2011 00:00:00 Screening for [facility] malignant neoplasm of colon (procedure) [code = 623774045] Encounters Start End Encounter Admission Attending Care Care Encounter Source Date/Time Date/Time Type Type Clinicians Facility Department ID 2020-03-03 2020-03-03 Emergency [facility], [facility] [id number] 18:26:00 23:02:00 Trinh Maldonado [id number] [place] [id number] [facility] [id number] 2020-03-01 2020-03-01 Outpatient [facility] [id number] [facility]00 [facility] Outpati ent Clinics 2020-02-22 2020-02-22 Outpatient [facility] [id number] [facility]00 [facility] Outpati ent Clinics 2020-02-13 2020-02-18 [facility] Yazmin Gillette [facility] [id number] 17:07:00 18:00:00 Encounter Avis Guo [id number] [place] [id number] Pa[facility]ines [id number] 2020-02-13 2020-02-13 Orders Doctor CHEW [id number] 00:00:00 00:00:00 Only Unassigned MARIELOS 350.1.13.10 [place] [id number] 2020-01-28 2020-01-28 [facility] [id number] 08:27:00 08:27:00 [place] Medicine Medicine [facility] 2020-01-26 2020-01-26 [facility] [id number] 11:04:00 11:04:00 [employer] [facility] Medicine Medicine [facility] ent Clinics 2020-01-05 2020-01-05 [facility] [id number] 16:30:00 16:30:00 Jdguanjia WAFU s [employer] [facility] Family Medicine l Medicine Outpati ent Clinics 2020-01-03 2020-01-03 [facility] [id number] 10:59:00 10:59:[address] [facility] Medicine l Medicine Outpati ent Clinics 2019-12-17 2019-12-17 Office Corine [facility] [id number] 12:00:00 12:30:00 Visit Bernardino Maldonado 350.1.13.10 [place] 4.2.7.2.686 [facility] [id number] [address] 2019-11-24 2019-11-24 [facility] [id number] 11:16:00 11:16:00 [facility] Medicine l Medicine Outpati ent Clinics 2019-11-24 2019-11-24 [facility] [id number] 11:15:00 11:15:00 [employer] [facility] Family Medicine l Medicine Outpati ent Clinics 2019-11-11 2019-11-11 [facility] [id number] 09:41:00 09:41:00 [facility] Medicine l Medicine Outpati ent Clinics 2019-11-10 2019-11-10 [facility] [id number] 10:30:00 10:30:00 Jdguanjia [employer] [facility] Medicine l Medicine Outpati ent Clinics 2019-03-27 2019-03-27 Emergency [facility] [id number] Gabriel 11:00:00 11:00:00 Health 2019-03-27 2019-03-27 Emergency [facility] [id number] Gabriel 10:55:25 10:55:25 Health 2019-03-27 2019-03-27 Emergency [facility] [id number] Gabriel 08:02:06 08:02:06 Health 2019-03-27 2019-03-27 Emergency [facility] [id number] Gabriel 00:00:00 00:00:00 Health Results Test Description Test Time Test Comments Results Result Comments Source PTT - every 6 hours x 24 hours 2019-03-27 18:07:00 Test Item Value Reference Range Interpretation Comme nts PTT (test code = 64203475) 26.6 23.6- 36.4 Seconds The recommended therapuetic ran ge is an APTT 61-103 sec onds which corresponds to 0.3-0.7 anti Xa u/ml. Lab Interpretation (test code Normal = 35239-4) [facility] GLUCOSE POC docked [id number] 16:51:00 Test Item Value Reference Range Interpretation Comments Glucose POC (test code = 18181947) 98 mg/dL 74-106 Lab Interpretation (test code = Normal 03107-9) [facility]2019-03-27 14:41:00 Test Item Value Reference Range Interpretation Comments CRP, High Sensitivity (Cardiac) 1.0 mg/L <1.0 H (test code = 88732686) Lab Interpretation (test code = Abnormal 16155-4) [facility]ED [id number] 14:26:00 Test Item Value Reference Range Interpretation Comments Sed Rate (test code = 85392546) 18 0-<20 mm/Hr Lab Interpretation (test code = Normal 11272-7) [facility] [B-Type Natriuretic Peptide]2019-03-27 13:12:00 Test Item Value Reference Range Interpretation Comments B Natriuretic Peptide (BNP) (test 93 pg/mL <=100 code = 05042257) Lab Interpretation (test code = Normal 28386-1) [place] [address] LEAD [id number] 12:48:5612 LEAD EKG FOR [facility] Test Date: 5053-11-30Oul Name: MARCOS RAMOS Department: 5520Patient ID: [id number] Room: Gender: Assistant Facility Manager: [id number]: 1960 Requested By: LYSSA Freeman Number: [id number] Jr MD: Audi Betancur M.D. MeasurementsIntervals [place] Rate: 74 P: 37PR: 164 QRS: -28QRSD: 111 T: 11QT: 397 QTc: 442 Interpretive StatementsSINUS RH YTHMBORDERLINE LEFT AXIS DEVIATION [QRS AXIS < -20]MODERATE INTRAVENTRICULAR CONDUCTION DELAY [110+ ms QRS DURATION]MINIMAL VOLTAGE CRITERIA FOR LVH, CONSIDER NORMAL VARIANT [MEETS CRITERIA INONE OF: R(aVL), S(V1), R(V5), R(V5/V6)+S(V1)]Electronically Signed On 03-27-2019 12:48:54 CDT by Audi simmons M.D.[facility] DOPPLER LOWER EXTREMITY VENOUS, UNILATERAL OR [id number] 12:24:51IMPRESSION: Occlusive deep venous thrombosis involving the [...] report.Signed By: Gary Sierra MD, 03/27/2019 12:24 [facility] Comprehensive Metabolic [id number] 12:17:00 Test Item Value Reference Range Interpretation Comments Sodium (test code = 2951-2) 140 mmol/L 136-145 Potassium (test code = 2823-3) 4.1 mmol/L 3.5-5.1 Chloride (test code = 2075-0) 104 mmol/L 98-107 CO2 (test code = 15996690) 28 mmol/L 21-31 Glucose (test code = 05093734) 146 mg/dL 70-110 H Calcium (test code = 99453550) 9.1 mg/dL 8.6-10.3 Urea Nitrogen (test code = 25.0 mg/dL 7-25 46694222) Creatinine (test code = 1.0 mg/dL 0.7-1.3 45244326) Alkaline Phosphatase (test 89 U/L 34-104 code = 03615279) ALT (test code = 12611525) 30 U/L 7-52 AST (test code = 08615367) 21 U/L 13-39 Total Protein (test code = 7.3 g/dL 6-8.3 2885-2) GFR, Estimated (test code = 77 >=90 mL/min/1.73 m2 L 40574243) Albumin (test code = 42656-5) 4.0 g/dL 4.2-5.5 L Anion Gap (test code = 8 mmol/L 5-16 36655025) Lab Interpretation (test code Abnormal = 98654-2) [facility] CHEST 2 [id number] 12:02:29IMPRESSION: Mild central pulmonary vascular congestion. No [...] report.Signed By: Gary Sierra MD, 03/27/2019 12:02 [facility] HealthXRAY FOOT 3 VIEWS [id number] 11:51:43IMPRESSION: Radiographic findings compatible with osteomyelitis of the fifth digit.An MRI of the forefoot WITH and WITHOUT contrast would provideadditional information regarding the extent of the osteomyelitis. If the report is "FINALIZED" it indicates that the attending/staffradiologist has reviewed the images and agrees with the resident'sinterpretation. Dictated By: Ramyond Aguero MD, 03/27/2019 11:33 AM I have reviewed the study and agree with the findings in this report. Signed By: Gary Sierra MD, 03/27/2019 11:51 AM [facility], Rad/Mammog In - 03/27/2019 11:56 AM CDTEXAMINATION: [...] report.Signed By: Gary Sierra MD, 03/27/2019 11:51 [facility]/INR/[id number] 11:27:00 Test Item Value Reference Range Interpretation Comments PT (test code = 5902-2) 12.3 11.8- 15.0 Seconds INR (test code = 0.9 Refer to INR 2.0 - 3.0 for moderate 82935386) ranges intensity anticoagulation 2.5 - 3.5 for high in tensity anticoagulation PTT (test code = 25.9 23.6- 36.4 The recomm ended 46018968) Seconds therapuetic ran ge is an APTT 61-103 sec onds which correspon ds to 0.3-0.7 anti Xa u/ml. Lab Interpretation Normal (test code = 68303-8) [facility]/[id number] 11:15:00 Test Item Value Reference Range Interpretation [...] 32.5 g/dL 32-36 RDW (test code = 64798-5) 50.3 fL 35.1-43.9 H Platelet (test code = 777-3) 216 K/uL 150-400 Mean Platelet Volume (test code = 10.2 fL 9.4-12.4 12244-7) Percent NRBC (test code = 99356900) 0.0 % Neutrophil (test code = 770-8) 53.9 % 34-67.9 Lymphs (test code = 736-9) 32.8 % 21.8-50 Monocytes (test code = 5905-5) 11.0 % 5.3-12 Eos (test code = 713-8) 1.5 % 0.8-5 Basos (test code = 706-2) 0.2 % 0.2-1.2 Immature Granulocytes (test code = 0.6 % 0-0.5 H 87599959) Neutrophils (Absolute) (test code = 2.50 K/uL 1.78-5.36 28138469) Lymphs (Absolute) (test code = 1.52 K/uL 1.32-3.57 88080589) Monocytes(Absolute) (test code = 0.51 K/uL 0.3-0.82 91359464) Eos (Absolute) (test code = 0.07 K/uL 0.04-0.54 29849725) Baso (Absolute) (test code = 0.01 K/uL 0.01-0.08 30583649) Immature Grans (Abs) (test code = 0.03 K/uL 0-0.03 39010066) Absolute NRBC (test code = 0.00 K/uL 25096565) Lab Interpretation (test code = Abnormal 74517-6) [facility]
--- OUTSIDE RECORDS SUMMARY | 2020-03-05 13:28 | XMS REPORT ---
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
--- OUTSIDE RECORDS SUMMARY | 2020-03-05 13:28 | XMS REPORT ---
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
--- OUTSIDE RECORDS SUMMARY | 2020-03-05 13:28 | XMS REPORT ---
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 Z79.4 Active Assessment Lower urinary tract symptoms R39.9 Active Problem Seizures R56.9 Active Assessment History of CVA with residual I69.30 Active deficit Problem Generalized anxiety disorder F41.1 Active Problem Mixed hyperlipidemia E78.2 Active Problem Chronic pain syndrome G89.4 Active Medications Medication Code Code Instructions Start End Status Dosage System Date Date Albuterol [facility] 03780835434 108 (90 Base) Active 1 pu ff as needed Sulfate HFA MCG/ACT Inhalation every 4 hrs Clonazepam ND 14011515415 0.5 MG Orally Active 1 t ablet at Once a day bedtime Divalproex ND 85912551354 500 MG Orally Active 1 t ablet Sodium ER Once a day BusPIRone HCl ND 67443418277 10 MG Orally Active 1 tablet Twice a day Metoprolol ND 40730927688 50 MG Orally Active 1 ta blet with Tartrate Twice a day food NovoLIN 70/30 ND 32841130362 () 100 Active IN JECT FlexPen UNIT/ML SUBQUTANEOUSLY 65 UNITS TWICE DAILY Victoza ND 40713229714 18 MG/3ML Active Inject 1.8 Subcutaneous mg/day Once a day Advair Diskus [facility] 84140420717 250-50 Active 1 puff MCG/DOSE Inhalation Twice a day Hydrocodone-Misael ND 63654916228 10-325 MG Active 1 tablet as taminophen Orally every 6 needed hrs Benztropine ND 23882390511 0.5 MG Orally Active 1 tablet at Mesylate Once a day bedtime Eliquis [facility] 47764744830 5 MG Active TAKE 1 TABLE T BY MOUTH TWICE DAILY UltiCare Micro ND 12997198381 32G X 4 MM Active US E ONE NEEDLE Pen [place] THREE TIMES DAILY WITH VICTOZA AND NOVOLIN FLEXPEN True Metrix [facility] 75480711955 - Active USE TO T EST Blood Glucose BLOOD SUGA R 1-2 Test TIMES EVERY DAY NovoLIN 70/30 ND 27634093700 () 100 Active In ject 65 units FlexPen UNIT/ML Subcutaneous BID Risperidone ND 56935557931 4 MG Orally Active 1 ta blet Once a day Amphetamine-Dex [facility] 08656499768 30 MG Orally Active 1 tablet troamphetamine Twice a day Tramadol HCl [facility] 90280394004 50 MG Orally Active 1 tablet as Once a day needed Pen [place] [facility] 29229946937 32G x 4 mm Active N/s /6" n/s once a day Losartan [facility] 61442585408 50 MG Orally Active 1 tabl et Potassium Once a day Duloxetine HCl [facility] 48171866758 60 MG Orally Active 1 capsule Once a day Atorvastatin [facility] 78258656625 40 MG Orally Active 1 tablet Calcium Once a day Results No Known Results Summary Purpose eClinicalWorks Submission
--- OUTSIDE RECORDS SUMMARY | 2020-03-05 13:28 | XMS REPORT ---
[...] J44.9 Active disease, unspecified COPD type Problem [facility] (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 Z79.4 Active Problem [...]
--- OUTSIDE RECORDS SUMMARY | 2020-03-05 13:29 | XMS REPORT ---
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
[2020-03-05] MEDS ORDERED: ONDANSETRON 4 MG/2 ML VIAL ONE (14:15)
[2020-03-05] MEDS ORDERED: MORPHINE 4 MG/ML SYR ONE ×2 (14:15→15:25)
[2020-03-05] MEDS ORDERED: NA CHLORIDE 0.9% 500 ML ONE (14:16)
[2020-03-05 14:22] LABS: Absolute Lymphocytes (CBC) 1.6 K/uL (0.7-4.9); Basophils % 0.3 % (0-1.3); Hematocrit 29.2 % (39.6-49.0); Lymphocytes % 25.4 % (15.3-44.8); MPV 8.3 fL (7.6-11.3); Protime INR 1.02
[2020-03-05 14:40] LABS: Bilirubin Total 0.2 mg/dL (0.2-1.0); Potassium 4.5 mmol/L (3.5-5.1); Protein, Total 7.1 g/dL (6.4-8.2)
--- NOTE | 2020-03-05 14:46 | RAD REPORT ---
EXAM DESCRIPTION: RAD - Foot Left 3 View - 03/05/2020 2:20 pm CLINICAL HISTORY: possible osteo;Pain, foot pain COMPARISON: Foot Left 3 View dated 12/01/2019; Foot Left 2 View dated 01/04/2019 FINDINGS: No acute fracture changes are seen. There is no dislocation or periosteal reaction present . First toe has been resected. Distal shaft and head of the fifth metatarsal also resected. There is remodeling at the base of the fifth proximal phalanx. No erosive or destructive changes seen. Tarsal- metatarsal articulation degenerative changes are present. Bone and joint findings are similar to the November 30 study. Soft tissue edema present. No air or foreign body in the soft tissues. IMPRESSION: Soft tissue swelling without air or foreign body. Postsurgical changes to the left foot similar to [facility]. No acute or destructive findings ident ifiable.
[2020-03-05] MEDS ORDERED: VANCOMYCIN 1.5 GM in NA CHLORIDE 0.9% 500 ML IVPB ONE (15:00)
[2020-03-05] MEDS ORDERED: VANCOMYCIN/NS 1 gm 1 GM/250 ML BAG IVPB SCH (15:15)
[2020-03-05] MEDS ORDERED: ONDANSETRON 4 MG/2 ML VIAL IV PRN (15:15)
[2020-03-05] MEDS ORDERED: ACETAMINOPHEN 500 MG TAB PO PRN (15:15)
--- NOTE | 2020-03-05 16:06 | ER ---
Nurse's Notes [facility] Name: Gasper Fry Age: 60 yrs Sex: Male : 1960 Arrival Date: 03/05/2020 Time: 13:28 Bed 13 Private MD: Diagnosis: Cellulitis of left lower limb-Foot/second toe Presentation: 03/05 13:39 Chief complaint: Patient states: States he needs admission for IV antibiotics for his ll1 bilateral foot infections that he has had for over 3 weeks. Seen and released from [place], started on IV antibiotics at home. Started having kidney function issues, sent here for eval. Was here last night also, discharged home. Coronavirus screen: Client denies travel out of the [place] in the last 14 days. At this time, the client does not indicate any symptoms associated with coronavirus-19. Ebola Screen: Patient denies travel to an Ebola-affected area in the 21 days before illness onset. Initial Sepsis Screen: Does the patient meet any 2 criteria? No. Patient's initial sepsis screen is negative. Risk Assessment: Do you want to hurt yourself or someone else? Patient reports no desire to harm self or others. Onset of symptoms was February 13, 2020. 13:39 Method Of Arrival: Ambulatory ll1 13:39 Acuity: DARREL 3 ll1 15:34 Initial Sepsis Screen: Does the patient have a suspected source of infection? Yes: Skin ll1 breakdown/wound. Historical: - Allergies: 13:42 Haldol (Anaphylaxis); ll1 13:42 Narcan (Anaphylaxis); ll1 - PMHx: 13:42 ADD/ADHD; Chronic pain; Diabetes - IDDM; Hypertension; Cellulitis; Bipolar disorder; ll1 Anxiety; CVA; Seizures; neuropathy; - PSHx: 13:42 Neck Surgery; Knee surgery; Back Surgery; ll1 - Immunization history:: Flu vaccine is up to date. - Social history:: Smoking status: Patient denies any tobacco usage or history of. Screenin:33 Abuse screen: Denies threats or abuse. Nutritional screening: No deficits noted. ll1 Tuberculosis screening: No symptoms or risk factors identified. Fall Risk IV access (20 points). Ambulatory Aid- Crutches/Cane/Walker (15 pts). Gait- Impaired (20 pts.). Total Martínez Fall Scale indicates High Risk Score (45 or more points). Fall prevention measures have been instituted. Side Rails Up X 2 Frequent Obs/Assessments Occuring As available patient and family educated on Fall Prevention Program and Strategies. Assessment: 14:00 General: Appears uncomfortable, Behavior is calm, cooperative, appropriate for age. ll1 Pain: Complains of pain in L foot Pain currently is 9 out of 10 on a pain scale. Quality of pain is described as aching, throbbing, Pain began over 3 weeks ago. 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 Full function Gait is unsteady, Speech is slurred, Facial symmetry appears normal, Pupils are PERRLA, Reports headache weakness. Cardiovascular: No deficits noted. Respiratory: No deficits noted. GI: Abdomen is flat, Bowel sounds present X 4 quads. Abd is soft and non tender X 4 quads. Reports nausea. Derm: Wound noted Left foot Wound is Left foot 1st digit has been amputated. 2nd digit is red, swollen, and the skin is sloughing off. Blood noted to 2nd digit. Right foot has older, small chronic healing wound to 5th digit. No drainage at this time. Patient states both feet hurt equally, although the left appears more infected. Reports pain. Musculoskeletal: Musculoskeletal: Circulation, motion, and sensation intact. Capillary refill < 3 seconds, Swelling present in L foot Reports pain in L foot. 15:00 Reassessment: Patient and/or family updated on plan of care and expected duration. Pain ll1 level reassessed. Patient is alert, oriented x 3, equal unlabored respirations, skin warm/dry/pink. Vital Signs: 13:39 BP 160 / 77; Pulse 81; Resp 18; Temp 98.6; Pulse Ox 97% ; Pain 9/10; ll1 14:19 BP 153 / 78; Pulse 80; Resp 18; Pulse Ox 98% on R/A; ll1 15:39 BP 148 / 78; Pulse 79; Resp 18; Pulse Ox 97% ; ll1 16:15 BP 155 / 73; Pulse 80; Resp 18; Temp 97.9; Pulse Ox 97% ; Pain 8/10; ll1 16:41 BP 166 / 84; Pulse 81; Resp 18; Pulse Ox 96% ; ll1 ED Course: 13:28 Patient arrived in ED. ds1 13:28 Bernardino Alejandro MD is Attending Physician. kdr 13:32 Keira Roy, MALU is Primary Nurse. ll1 13:42 Triage completed. ll1 13:42 Arm band placed on Patient placed in an exam room, on a stretcher. ll1 15:34 Patient has correct armband on for positive identification. Bed in low position. Call ll1 light in reach. Side rails up X2. Pulse ox on. NIBP on. 16:04 Justin Valente MD is Hospitalizing Provider. kdr 16:16 No provider procedures requiring assistance completed. Patient admitted, IV remains in ll1 place. 16:40 Dressings: Kerlix X 1; Left foot non-adherent dressing x 1 left foot 2nd digit. Wound ll1 care: to cellulitis located on L foot 2nd digit was cleaned with with saline, Patient tolerated well. Administered Medications: 14:12 Drug: morphine 4 mg Route: IVP; Site: PICC; ll1 15:30 Follow up: Response: No adverse reaction; Pain is decreased; RASS: Alert and Calm (0) ll1 14:12 Drug: Zofran (Ondansetron) 4 mg Route: IVP; Site: PICC; ll1 15:30 Follow up: Response: No adverse reaction; RASS: Alert and Calm (0) ll1 14:12 Drug: NS 0.9% 500 ml Route: IV; Rate: bolus; Site: PICC; ll1 15:29 Follow up: Response: No adverse reaction; RASS: Alert and Calm (0); IV Status: ll1 Completed infusion; IV Intake: 500ml 14:36 Drug: vancoMYCIN 1.5 grams Route: IVPB; Rate: calculated rate; Site: PICC; ll1 16:41 Follow up: Response: No adverse reaction; RASS: Alert and Calm (0); IV Status: ll1 Completed infusion; IV Intake: 550ml 15:29 Drug: morphine 4 mg Route: IVP; Site: PICC; ll1 16:31 Follow up: Response: No adverse reaction; RASS: Alert and Calm (0) ll1 Intake: 15:29 IV: 500ml; Total: 500ml. ll1 16:41 IV: 550ml; Total: 1050ml. ll1 Outcome: 16:06 Decision to Hospitalize by Provider. kdr 16:30 Admitted to Med/surg accompanied by tech, room 230, with chart, Report called to [facility] [place] 16:30 Condition: stable 16:30 Instructed on the need for admit, Demonstrated understanding of instructions. 16:46 Patient left the ED. ll1 Signatures: Bernardino Alejandro MD MD kdr Sanford, Demi ds1 Keira Roy RN RN ll1 Corrections: (The following items were deleted from the chart) 15:39 14:00 Derm: Wound noted Left foot Reports pain ll1 ll1 15:39 14:00 Musculoskeletal: Circulation, motion, and sensation intact. Capillary refill < 3 ll1 seconds, Reports pain in L foot ll1
--- NOTE | 2020-03-05 16:06 | EDPHYS ---
Physician Documentation [facility] Name: Gasper Fry Age: 60 yrs Sex: Male : 1960 Arrival Date: 03/05/2020 Time: 13:28 Bed 13 Private MD: ED Physician Bernardino Alejandro HPI: 03/05 16:08 This 60 yrs old Male presents to ER via Ambulatory with complaints of Foot kdr Pain. 16:08 The patient presents with decreased range of motion, a deformity, an injury, pain. The kdr complaints affect the left foot. Context: The problem was sustained at home, resulted from an unknown cause, The patient is diabetic and may have scrapped his foot at any time. Now the second toe next to the prior amputated great toe on the left foot is bleeding with possible cellulitis. Onset: The symptoms/episode began/occurred at an unknown time. Modifying factors: The symptoms are alleviated by nothing, the symptoms are aggravated by weight bearing, movement. Associated signs and symptoms: Pertinent positives: numbness, warmth. Severity of symptoms: At their worst the symptoms were mild, moderate, just prior to arrival, in the emergency department the symptoms are unchanged. The patient has not experienced similar symptoms in the past, The patient has experienced a previous episode. Historical: - Allergies: 13:42 Haldol (Anaphylaxis); ll1 13:42 Narcan (Anaphylaxis); ll1 - PMHx: 13:42 ADD/ADHD; Chronic pain; Diabetes - IDDM; Hypertension; Cellulitis; Bipolar disorder; ll1 Anxiety; CVA; Seizures; neuropathy; - PSHx: 13:42 Neck Surgery; Knee surgery; Back Surgery; ll1 - Immunization history:: Flu vaccine is up to date. - Social history:: Smoking status: Patient denies any tobacco usage or history of. ROS: 16:08 Constitutional: Negative for fever, chills, and weight loss, Eyes: Negative for injury, kdr pain, redness, and discharge, Neck: Negative for injury, pain, and swelling, Cardiovascular: Negative for chest pain, palpitations, and edema, Respiratory: Negative for shortness of breath, cough, wheezing, and pleuritic chest pain, Abdomen/GI: Negative for abdominal pain, nausea, vomiting, diarrhea, and constipation, Back: Negative for injury and pain, : Negative for injury, bleeding, discharge, and swelling, MS/Extremity: There is an obvous injury and drief blood to the dorsum of the left second toe Skin: Negative for injury, rash, and discoloration, Neuro: Negative for headache, weakness, numbness, tingling, and seizure activity. Psych: Negative for depression, anxiety, suicide ideation, homicidal ideation, and hallucinations, Allergy/Immunology: Negative for hives, rash, and allergies, Endocrine: Negative for neck swelling, polydipsia, polyuria, polyphagia, and marked weight changes. Exam: 16:08 Constitutional: This is a well developed, well nourished patient who is awake, alert, kdr and in no acute distress. Head/Face: Normocephalic, atraumatic. Eyes: Pupils equal round and reactive to light, extra-ocular motions intact. Lids and lashes normal. Conjunctiva and sclera are non-icteric and not injected. Cornea within normal limits. Periorbital areas with no swelling, redness, or edema. Neck: Trachea midline, no thyromegaly or masses palpated, and no cervical lymphadenopathy. Supple, full range of motion without nuchal rigidity, or vertebral point tenderness. No Meningismus. Chest/axilla: Normal chest wall appearance and motion. Nontender with no deformity. No lesions are appreciated. Cardiovascular: Regular rate and rhythm with a normal S1 and S2. No gallops, murmurs, or rubs. Normal PMI, no JVD. No pulse deficits. Respiratory: Lungs have equal breath sounds bilaterally, clear to auscultation and percussion. No rales, rhonchi or wheezes noted. No increased work of breathing, no retractions or nasal flaring. Abdomen/GI: Soft, non-tender, with normal bowel sounds. No distension or tympany. No guarding or rebound. No evidence of tenderness throughout. Back: No spinal tenderness. No costovertebral tenderness. Full range of motion. Skin: Warm, dry with normal turgor. Normal color with no rashes, no lesions, and no evidence of cellulitis. Neuro: Awake and alert, GCS 15, oriented to person, place, time, and situation. Cranial nerves II-XII grossly intact. Motor strength 5/5 in all extremities. Sensory grossly intact. Cerebellar exam normal. Normal gait. Psych: Awake, alert, with orientation to person, place and time. Behavior, mood, and affect are within normal limits. 16:08 Musculoskeletal/extremity: See notes above. Vital Signs: 13:39 BP 160 / 77; Pulse 81; Resp 18; Temp 98.6; Pulse Ox 97% ; Pain 9/10; ll1 14:19 BP 153 / 78; Pulse 80; Resp 18; Pulse Ox 98% on R/A; ll1 15:39 BP 148 / 78; Pulse 79; Resp 18; Pulse Ox 97% ; ll1 16:15 BP 155 / 73; Pulse 80; Resp 18; Temp 97.9; Pulse Ox 97% ; Pain 8/10; ll1 16:41 BP 166 / 84; Pulse 81; Resp 18; Pulse Ox 96% ; ll1 MDM: 16:06 Patient medically screened. kdr 16:08 Data reviewed: vital signs, nurses notes, lab test result(s), radiologic studies. kdr Counseling: I had a detailed discussion with the patient and/or guardian regarding: lab results, radiology results, the need for further work-up and treatment in the hospital. Physician consultation: Justin Valente MD regarding patient's condition, and will see patient in ED, immediately. 03/05 13:51 Order name: CMP [facility] 03/05 13:51 Order name: PT-INR [facility] 03/05 13:51 Order name: CBC with Diff [facility] 03/05 14:23 Order name: CBC with Automated Diff; Complete Time: 16:52 EDMS 03/05 14:23 Order name: Protime (+INR); Complete Time: 16:52 EDMS 03/05 14:40 Order name: Comprehensive Metabolic Panel; Complete Time: 16:52 EDMS 03/05 13:51 Order name: Foot Left 3 View XRAY [facility] 03/05 14:47 Order name: RAD; Complete Time: 16:52 EDMS Administered Medications: 14:12 Drug: morphine 4 mg Route: IVP; Site: PICC; ll1 15:30 Follow up: Response: No adverse reaction; Pain is decreased; RASS: Alert and Calm (0) ll1 14:12 Drug: Zofran (Ondansetron) 4 mg Route: IVP; Site: PICC; ll1 15:30 Follow up: Response: No adverse reaction; RASS: Alert and Calm (0) ll1 14:12 Drug: NS 0.9% 500 ml Route: IV; Rate: bolus; Site: PICC; 1 15:29 Follow up: Response: No adverse reaction; RASS: Alert and Calm (0); IV Status: ll1 Completed infusion; IV Intake: 500ml 14:36 Drug: vancoMYCIN 1.5 grams Route: IVPB; Rate: calculated rate; Site: PICC; 1 16:41 Follow up: Response: No adverse reaction; RASS: Alert and Calm (0); IV Status: ll1 Completed infusion; IV Intake: 550ml 15:29 Drug: morphine 4 mg Route: IVP; Site: PICC; 1 16:31 Follow up: Response: No adverse reaction; RASS: Alert and Calm (0) ll1 Disposition: 03/05/20 16:06 Hospitalization ordered by Justin Valente for Inpatient Admission. Preliminary diagnosis is Cellulitis of left lower limb - Foot/second toe. - Bed requested for Telemetry/MedSurg (Inpatient). - Status is Inpatient Admission. ll1 - Condition is Fair. - Problem is an acute exacerbation. - Symptoms are unchanged. Signatures: Dispatcher [employer] EDRina Taylor RN RN Bernardino Alejandro MD MD [facility] Keira Roy RN RN 1 Corrections: (The following items were deleted from the chart) 16:08 16:06 Hospitalization Ordered by Justin Valente MD for Inpatient Admission. Preliminary dw diagnosis is Cellulitis of left lower limb - Foot/second toe. Bed requested for Telemetry/MedSurg (Inpatient). Status is Inpatient Admission. Condition is Fair. Problem is an acute exacerbation. Symptoms are unchanged. kdr 16:46 16:08 03/05/2020 16:06 Hospitalization Ordered by Justin Valente MD for Inpatient ll1 Admission. Preliminary diagnosis is Cellulitis of left lower limb - Foot/second toe. Bed requested for Telemetry/MedSurg (Inpatient). Status is Inpatient Admission. Condition is Fair. Problem is an acute exacerbation. Symptoms are unchanged. dw
[2020-03-05] MEDS ORDERED: ENOXAPARIN 40 MG/0.4 ML SQ SCH (17:00)
--- NOTE | 2020-03-05 17:06 | P.HP ---
Certification for Inpatient Patient admitted to: Inpatient With expected LOS: >2 Midnights Patient will require the following post-hospital care: None Practitioner: I am a practitioner with admitting privileges, knowledge of patient current condition, hospital course, and medical plan of care. Services: Services provided to patient in accordance with Admission requirements found in Title 42 Section 412.3 of the Code of Federal Regulations Patient History Date of Service: 03/05/20 Reason for admission: Cellulitis of the left 2nd toe with possible osteomyelitis History of Present Illness: Patient is a 60-year-old gentleman who was well known to me for prior admissions for diabetes. He also has many psychiatric issues. His psychiatric condition a ppears to be fairly stable. He was being treated with IV antibiotics at the [facility]- but he states they would were never able to get the antibiotics. He came to the ER because his pain was worsening last night. He states that he was told there was nothing they can do for him any was sent home. Came back again because his family was worried that he was bleeding in the pain was getting worse. His 2nd toe does look like the scan is scraped and he has a eschar on the top of it. It looks to be peeled off somewhat. There is quite a bit of bleeding from that region. Questionable history of PAD and will check an arterial Doppler. Patient will be admitted to the hospital for further evaluation. Will get podiatry consultation. Allergies haloperidol [From Haldol] Allergy (Verified 12/11/18 20:38) Anaphylaxis naloxone [From Narcan] Allergy (Verified 12/11/18 20:38) Anaphylaxis Home Medications: Apixaban [Eliquis] 1 tab PO BID 12/01/19 Benztropine Mesylate [Cogentin*] 1 tab PO BEDTIME 12/01/19 Divalproex Sodium [Depakote] 3 tab PO BEDTIME 12/01/19 Fluticasone/Salmeterol [Advair 250-50 Diskus] 1 puff IH BID PRN 12/01/19 Hydrocodone 10/APAP 325 [[place] 10/325*] 1 tab PO BID 12/01/19 Losartan Potassium [Cozaar*] 1 tab PO DAILY 12/01/19 Metoprolol Tartrate [Lopressor*] 1 tab PO BID 12/01/19 Risperidone 1 tab PO DAILY 12/01/19 Tramadol HCl [Ultram] 1 tab PO BID 12/01/19 clonazePAM [Klonopin*] 1 tab PO BID 12/01/19 - Past Medical/Surgical History Diabetic: Yes -: Diabetes mellitus type 2, insulin-dependent -: Hypertension -: Seizure disorder -: Peripheral vascular disease -: History of osteomyelitis -: Hyperlipidemia -: Bipolar disorder -: Tobacco abuse -: schizophrenia -: History of amputation to the left great toe -: History of blood clots -: seizures -: Neck and back surgery -: Right eye removal -: Right knee surgery -: Bilateral wrist surgery due to suicide attempt -: Left great toe amputation Psychosocial/ Personal History: Patient is . He has 2 children. He lives at home. - Family History Brother Medical History: Hypertension Sister Medical History: Diabetes Father Medical History: Heart disease Notes: heart attack Mother Medical History: Diabetes - Social History Smoking Status: Never smoker Alcohol use: No CD- Drugs: No Caffeine use: Yes Review of Systems 10-point ROS is otherwise unremarkable Physical Examination - Vital Signs Temperature: 99 F Blood Pressure: 160/80 Pulse: 99 Respirations: 18 Pulse Ox (%): 94 - Physical Exam General: Alert, In no apparent distress, Oriented x3, Disheveled HEENT: Atraumatic, Normocephalic Neck: Supple, 2+ carotid pulse no bruit, JVD not distended Respiratory: Clear to auscultation bilaterally, Normal air movement Cardiovascular: Regular rate/rhythm, Normal S1 S2 Gastrointestinal: Normal bowel sounds, Soft and benign, Non-distended Musculoskeletal: Erythema, Tenderness, Warmth, Other (These changes are seen in the left foot on the 2nd toe) Integumentary: Tenderness/swelling, Erythema, Warmth, Other (Patient also with some swelling of the right 5th toe) Neurological: Normal strength at 5/5 x4 extr, Cranial nerves 3-12 intact, Abnormal gait, Abnormal tone, Abnormal sensation - Studies Laboratory Data (last 24 hrs) 03/05/20 13:55: WBC 6.2 D, Hgb 9.9 L, Hct 29.2 L D, Plt Count 254 03/05/20 13:55: PT 12.0, INR 1.02 03/05/20 13:55: Sodium 138, Potassium 4.5, BUN 36 H, Creatinine 1.91 H, Glucose 180 H, Total Bilirubin 0.2, AST 19, ALT 26, Alkaline Phosphatase 110 Assessment & Plan - Problems (Diagnosis) (1) Cellulitis Current Visit: Yes Status: Acute (2) Osteomyelitis Current Visit: Yes Status: Acute (3) Peripheral arterial disease Current Visit: Yes Status: Acute (4) Diabetic neuropathy Current Visit: Yes Status: Acute (5) History of amputation of right great toe Current Visit: Yes Status: Acute (6) Depression Current Visit: No Status: Chronic (7) Diabetes mellitus Onset Date: 04/24/15 Current Visit: No Status: Chronic Qualifiers: Diabetes mellitus type: type 2 Diabetes mellitus 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 Diabetes mellitus complication status: with neurologic complications Diabetes mellitus complication detail: with polyneuropathy Qualified Code(s): E11.42 - Type 2 diabetes mellitus with diabetic polyneuropathy; 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 (8) GERD (gastroesophageal reflux disease) Current Visit: No Status: Chronic Qualifiers: Esophagitis presence: esophagitis presence not specified Qualified Code(s): K21.9 - Gastro-esophageal reflux disease without esophagitis (9) History of CVA (cerebrovascular accident) Current Visit: No Status: Chronic (10) Hypertension Onset Date: 04/24/15 Current Visit: No Status: Chronic Qualifiers: (11) Schizophrenia Onset Date: 04/24/15 Current Visit: No Status: Chronic Qualifiers: Schizophrenia type: unspecified Qualified Code(s): F20.9 - Schizophrenia, unspecified (12) CKD (chronic kidney disease) Current Visit: Yes Status: Acute Qualifiers: Chronic kidney disease stage: stage 3 (moderate) Qualified Code(s): N18.3 - Chronic kidney disease, stage 3 (moderate) - Plan 1. Continue with IV antibiotic 2. Continue with local wound care 3. Podiatry consultation 4. Gentle IV hydration 5. Arterial Doppler 6. Strict blood sugar monitoring; check hemoglobin A1c 7. Pain control 8. Continue antipsychotics 9. Blood culture x2 and sed rate 10. May need MRI of the foot 11. GI and DVT prophylaxis Discharge Plan: Home Plan to discharge in: Greater than 2 days - Advance Directives Does patient have a Living Will: Yes Does patient have a Durable POA for Healthcare: Yes - Code Status/Comfort Care Code Status Assessed: Yes Code Status: Full Code Critical Care: No Time Spent Managing PTS Care (In Minutes): 45
[2020-03-05 17:39] VITALS: BMI 31.4
[2020-03-05] MEDS: Levofloxacin500mg IV 500 MG/100 ML BAG IV SCH (17:59)
[2020-03-05] MEDS: NA CHLORIDE 0.9% 1,000 ML IV SCH (18:00)
[2020-03-05] MEDS: HYDROMORPHONE HCL 1 MG/ML INJ IV PRN ×2 (18:00→21:58)
[2020-03-05] MEDS ORDERED: D50W 25 GM/50 ML SYRINGE/VIAL IV PRN (18:38)
[2020-03-05] MEDS ORDERED: GLUCAGON 1 MG/VIAL IM PRN (18:38)
[2020-03-05 18:56] LABS: Ferritin 106.8 ng/mL (26-388); Folic Acid, (Folate) 11.5 ng/mL (3.1-17.5)
[2020-03-05] MEDS: INSULIN -REGULAR HUMAN 50 UNIT/0.5 ML ML SQ SCH (20:56)
[2020-03-05] MEDS ORDERED: HYDROCODONE/APAP 7.5/325 MG TAB ONE (23:53)
[2020-03-05] MEDS: HYDROCODONE/APAP 7.5/325 MG TAB PO PRN (23:59)
[2020-03-06] MEDS ORDERED: VANCOMYCIN/NS 1 gm 1 GM/250 ML BAG IVPB SCH
[2020-03-06] MEDS: HYDRALAZINE HCL 20 MG/ML VIAL IV PRN ×2 (00:33→08:53)
[2020-03-06] MEDS ORDERED: NA CHLORIDE 0.9% 250 ML ONE (00:36)
[2020-03-06] MEDS ORDERED: VANCOMYCIN 1 GM/VIAL ONE (00:38)
[2020-03-06] MEDS: HYDROMORPHONE HCL 1 MG/ML INJ IV PRN ×5 (01:53→20:23)
[2020-03-06 04:30] LABS: Absolute Lymphocytes (CBC) 1.6 K/uL (0.7-4.9); Basophils % 0.3 % (0-1.3); Hematocrit 28.7 % (39.6-49.0); Lymphocytes % 32.7 % (15.3-44.8); MPV 8.6 fL (7.6-11.3); RBC Red Blood Cell Count 3.15 M/uL (4.33-5.43)
[2020-03-06] MEDS: HYDROCODONE/APAP 7.5/325 MG TAB PO PRN ×2 (04:34→13:20)
[2020-03-06 04:43] LABS: BUN Blood Urea Nitrogen 34 mg/dL (7-18); Bicarbonate 26 mmol/L (21-32); Glucose Level 252 mg/dL (74-106); HDL Cholesterol 30 mg/dL (40-60); Potassium 4.7 mmol/L (3.5-5.1); Sodium Level 139 mmol/L (136-145)
[2020-03-06 04:58] LABS: LDL, Direct 104 mg/dL (100-129)
[2020-03-06] MEDS: NA CHLORIDE 0.9% 1,000 ML IV SCH (05:45)
[2020-03-06] MEDS: clonazePAM 0.5 MG TAB PO SCH ×2 (08:25→21:00)
[2020-03-06] MEDS: LOSARTAN POTASSIUM 50 MG TABLET PO SCH (08:26)
[2020-03-06] MEDS: ATORVASTATIN 40 MG TAB PO SCH (08:27)
[2020-03-06] MEDS: RISPERIDONE 1 MG TABLET PO SCH (08:27)
[2020-03-06] MEDS: METOPROLOL TAR 50 MG TAB PO SCH ×2 (08:30→20:13)
[2020-03-06] MEDS: TRAMADOL HCL 50 MG TAB PO SCH ×3 (08:31→21:00)
[2020-03-06] MEDS: INSULIN -REGULAR HUMAN 50 UNIT/0.5 ML ML SQ SCH ×4 (08:31→20:14)
[2020-03-06] MEDS ORDERED: HYDROCODONE/APAP 10/325 TAB PO SCH (09:00)
--- NOTE | 2020-03-06 09:33 | P.CNS ---
Date of Consult: 03/06/20 Reason for Consult: wound left second digit Chief Complaint: Cellulitis of the left 2nd toe with possible osteomyelitis History of Present Illness: Patient was admitted to [facility] over two weeks ago with subsequent admittance to SNF in which patient left AMA Allergies haloperidol [From Haldol] Allergy (Verified 12/11/18 20:38) Anaphylaxis naloxone [From Narcan] Allergy (Verified 12/11/18 20:38) Anaphylaxis Home Medications: Apixaban [Eliquis] 1 tab PO BID 12/01/19 Divalproex Sodium [Depakote] 3 tab PO BEDTIME 12/01/19 Hydrocodone 10/APAP 325 [[place] 10/325*] 1 tab PO BID 12/01/19 Losartan Potassium [Cozaar*] 1 tab PO DAILY 12/01/19 Metoprolol Tartrate [Lopressor*] 1 tab PO BID 12/01/19 Risperidone 1 tab PO DAILY 12/01/19 Tramadol HCl [Ultram] 1 tab PO BID 12/01/19 clonazePAM [Klonopin*] 1 tab PO BID 12/01/19 Atorvastatin Calcium [Lipitor] 40 mg PO DAILY 03/05/20 Dextroamphetamine/Amphetamine [Dextroamp-Amphetamin 30 mg Tab] 1 tab PO BID 03/05/20 - Past Medical/Surgical History Diabetic: Yes -: Diabetes mellitus type 2, insulin-dependent -: Hypertension -: Seizure disorder -: Peripheral vascular disease -: History of osteomyelitis -: Hyperlipidemia -: Bipolar disorder -: Tobacco abuse -: schizophrenia -: History of amputation to the left great toe -: History of blood clots -: seizures -: Neck and back surgery -: Right eye removal -: Right knee surgery -: Bilateral wrist surgery due to suicide attempt -: Left great toe amputation Psychosocial/ Personal History: Patient is . He has 2 children. He lives at home. - Family History Brother Medical History: Hypertension Sister Medical History: Diabetes Father Medical History: Heart disease Notes: heart attack Mother Medical History: Diabetes - Social History Smoking Status: Current some day smoker Alcohol use: No CD- Drugs: No Caffeine use: Yes Review of Systems 10-point ROS is otherwise unremarkable Physical Examination Temp Pulse Resp BP Pulse Ox 97.2 F 83 20 211/91 H 100 03/06/20 08:00 03/06/20 08:30 03/06/20 08:00 03/06/20 08:30 03/06/20 08:00 General: Alert, In no apparent distress, Oriented x3 Cardiovascular: No edema, Normal pulses Capillary refill: <2 Seconds Musculoskeletal: No clubbing, No swelling, No contractures, No erythema, No tenderness, No warmth Integumentary: Diabetic ulcer (ulceration dorsum left second digit with eschar noted. No purulence expressed. Wound lateral right fifth digit is improved with no drainage noted) Neurological: Abnormal sensation Laboratory Data (last 24 hrs) 03/05/20 13:55: WBC 6.2 D, Hgb 9.9 L, Hct 29.2 L D, Plt Count 254 03/05/20 13:55: PT 12.0, INR 1.02 03/05/20 13:55: Sodium 138, Potassium 4.5, BUN 36 H, Creatinine 1.91 H, Glucose 180 H, Total Bilirubin 0.2, AST 19, ALT 26, Alkaline Phosphatase 110 - Problems (1) Peripheral arterial disease Current Visit: Yes Status: Acute (2) Diabetic ulcer of left foot Onset Date: 07/23/18 Current Visit: No Status: Acute Qualifiers: Diabetes mellitus type: type 2 Conclusions/Impression: awaiting MRI left foot. Santyl to left second digit wound daily
--- NOTE | 2020-03-06 12:03 | RAD REPORT ---
EXAM DESCRIPTION: US - Lower Extremity Arterial Bilat - 03/06/2020 11:36 am CLINICAL HISTORY: PAD COMPARISON: None. TECHNIQUE: Waveforms were obtained along the length of each lower extremity. NELSON calculations could not be performed. Patient was unable to tolerate ankle cough pressure due to pain. Visual inspection of the lower extremity arterial tree performed. FINDINGS: Triphasic waveform pattern seen along the length of each lower extremity. No occlusion or focal flow restricting lesion identified. Atherosclerotic changes are identifiable. Significant lumin al narrowing not identified. The bilateral common femoral, superficial femoral and popliteal arteries show asymmetric waveform pat tern with expected tapering of velocity. There significant elevation in the left dorsalis pedis arter y. This is in part technical but does reflect more prominent atherosclerotic change. Right dorsalis p suzanna velocity elevation is less pronounced. IMPRESSION: No occlusion or flow restrictive lesion identified. Normal, triphasic waveform patterns seen in each lower extremity. Patient does have dorsalis pedis artery velocity elevation, left greater than right reflecting areas of greater peripheral arterial disease.
--- NOTE | 2020-03-06 14:45 | P.PN ---
Subjective Date of Service: 03/06/20 Chief Complaint: Cellulitis of the left 2nd toe with possible osteomyelitis Subjective: Improving Physical Examination - Vital Signs Temperature: 97.8 F Blood Pressure: 125/60 Pulse: 69 Respirations: 20 Pulse Ox (%): 99 - Physical Exam General: Alert, In no apparent distress, Oriented x3, Cooperative HEENT: Atraumatic Neck: Supple Respiratory: Clear to auscultation bilaterally, Normal air movement Cardiovascular: Normal pulses, Regular rate/rhythm Gastrointestinal: Normal bowel sounds, Soft and benign, Non-distended Integumentary: Other (Black eschar to the left second toe) Neurological: Normal speech, Normal strength at 5/5 x4 extr, Normal tone, Normal affect - Studies Laboratory Data (last 24 hrs) 03/05/20 13:55: Sodium 138, Potassium 4.5, BUN 36 H, Creatinine 1.91 H, Glucose 180 H, Total Bilirubin 0.2, AST 19, ALT 26, Alkaline Phosphatase 110 Medications List Reviewed: Yes Assessment & Plan Discharge Plan: Home Plan to discharge in: 48 Hours Physician Review Additional Text: Impression: Left 2nd toe and foot cellulitis with history of osteomyelitis Diabetes mellitus type 2 insulin-dependent Acute on chronic renal disease stage III Depression with anxiety/bipolar disorder/schizophrenia GERD Hypertension History CVA Diabetic neuropathy Peripheral arterial disease History of blood clots on chronic anti coagulation therapy Hyperlipidemia Plan: Left 2nd toe and foot cellulitis with history of osteomyelitis: Continue with IV antibiotic therapy. Case discussed with podiatry. 2nd toe has black eschar. From a podiatry standpoint no intervention required. Await MRI. If abnormal flow osteomyelitis patient will likely require IV antibiotic therapy long-term. Will consult infectious disease for recommendation. Continue with current wound care as recommended by Podiatry. Th possible discharge as early as tomorrow or pending MRI results may require skilled verses long-term acute care facility placement. Diabetes mellitus type 2 insulin-dependent: Will start basal insulin. Continue to adjust for better control. A1c greater than 9. Acute on chronic renal disease stage III: Will adjust medication accordingly. Will monitor closely. Depression with anxiety/bipolar disorder/schizophrenia: Continue medication GERD: Continue medication Hypertension: Continue medication History CVA: DVT prophylaxis in place Diabetic neuropathy: Will provide medication Peripheral arterial disease: Continue medication History of blood clots on chronic anti coagulation therapy: Restart medication Hyperlipidemia: Continue medication Time Spent Managing Pts Care (In Minutes): 55
--- NOTE | 2020-03-06 15:03 | P.CNS ---
Date of Consult: 03/06/20 Subjective: The patient is a 60-year-old male with history of diabetes and psychiatric issues who presents to the ED with left foot wound and pain that has been worsening. Patient found to have cellulitis to the left foot 2nd digit which I have been consulted for. Patient examined at bedside. 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 He has 2 children. He lives at home. - Family History Brother Medical History: Hypertension Sister Medical History: Diabetes Father Medical History: Heart disease Notes: heart attack Mother Medical History: Diabetes - Social History Smoking Status: Never smoker Alcohol use: No CD- Drugs: No Caffeine use: Yes Allergies haloperidol [From Haldol] Allergy (Verified 12/11/18 20:38) Anaphylaxis naloxone [From Narcan] Allergy (Verified 12/11/18 20:38) Anaphylaxis Active Medications Acetaminophen (Tylenol -Extra Strength) 500 mg PO Q6H PRN PRN Reason: pain/fever Stop: 04/04/20 15:16 Hydrocodone Bitart/Acetaminophen ([place] 7.5/325 Mg) 1 tab PO Q4HP PRN PRN Reason: Pain scale 8-10 (Severe) Stop: 04/04/20 23:39 Last Admin: 03/06/20 13:20 Dose: 1 tab Documented by: Apixaban (Eliquis) 5 mg PO BID [facility] Stop: 04/05/20 21:01 Atorvastatin Calcium (Lipitor) 40 mg PO DAILY [facility] Stop: 04/05/20 09:01 Last Admin: 03/06/20 08:27 Dose: 40 mg Documented by: Clonazepam (Klonopin) 0.5 mg PO BID [facility] Stop: 04/05/20 09:01 Last Admin: 03/06/20 08:25 Dose: 0.5 mg Documented by: Collagenase (Santyl Ointment) 1 appl TOP DAILY [facility]ACIN[facility] Stop: 04/06/20 09:01 Dextrose (Dextrose 50% Syringe/Vial) 12.5 gm IV PRN PRN; Protocol PRN Reason: HYPOGLYCEMIA Stop: 04/04/20 18:39 Divalproex Sodium (Depakote) 1,500 mg PO BEDTIME [facility] Stop: 04/05/20 21:01 Glucagon (Glucagen) 1 mg IM 1X PRN; Protocol PRN Reason: HYPOGLYCEMIA Stop: 04/04/20 18:39 Hydralazine HCl (Apresoline) 10 mg IV Q6HP PRN PRN Reason: Titrate to SBP (MUST DEFINE) Stop: 04/05/20 00:18 Last Admin: 03/06/20 08:53 Dose: 10 mg Documented by: Hydromorphone HCl (Dilaudid) 1 mg IV Q4H PRN PRN Reason: Pain scale 8-10 (Severe) Stop: 04/04/20 15:16 Last Admin: 03/06/20 10:52 Dose: 1 mg Documented by: Levofloxacin/Dextrose (Levaquin 500 Mg/100 Ml Ivpb) 500 mg in 100 mls @ 100 mls/hr IV Q24H [facility]; Protocol Stop: 04/04/20 16:01 Last Admin: 03/05/20 17:59 Dose: 100 mls Documented by: Vancomycin HCl 1.5 gm/ Sodium (Chloride) 500 mls @ 250 mls/hr IVPB Q24H [facility] Stop: 04/06/20 00:01 Insulin Glargine (Lantus) 10 units SQ BEDTIME [facility] Stop: 04/05/20 21:01 Insulin Human Regular (Novolin -R) 0 unit SQ ACHS [facility]; Protocol Stop: 04/04/20 21:01 Last Admin: 03/06/20 11:57 Dose: 4 unit Documented by: Losartan Potassium (Cozaar) 50 mg PO DAILY [facility] Stop: 04/05/20 09:01 Last Admin: 03/06/20 08:26 Dose: 50 mg Documented by: Metoprolol Tartrate (Lopressor) 50 mg PO BID [facility] Stop: 04/05/20 09:01 Last Admin: 03/06/20 08:30 Dose: 50 mg Documented by: Ondansetron HCl (Zofran) 4 mg IV Q4H PRN PRN Reason: NAUSEA / VOMITING Stop: 04/04/20 15:16 Risperidone (Risperdal 1 Mg Tab) 4 mg PO DAILY [facility] Stop: 04/05/20 09:01 Last Admin: 03/06/20 08:27 Dose: 4 mg Documented by: Sodium Chloride (Normal Saline Flush) 10 ml IV BID [facility] Stop: 04/04/20 21:01 Last Admin: 03/06/20 08:34 Dose: 10 ml Documented by: Tramadol HCl (Ultram) 50 mg PO BID [facility] Stop: 04/05/20 09:01 Last Admin: 03/06/20 08:31 Dose: 50 mg Documented by: ROS: CV: Denies chest pain RESP: Denies shortness of breath GI: Denies diarrhea and nausea : denies dysuria Skin: Reports left foot wound for several months Objective: Temp Pulse Resp BP Pulse Ox 97.8 F 69 20 125/60 99 03/06/20 14:47 03/06/20 14:47 03/06/20 14:47 03/06/20 14:47 03/06/20 14:47 Labs: Sodium 139, potassium 4.7, BUN 34, creatinine 1.73, albumin 3.0, Janusz BC 4.8, hemoglobin 10.0, hematocrit 28.7 EXAM DESCRIPTION: RAD - Foot Left 3 View - 03/05/2020 2:20 pm CLINICAL HISTORY: possible osteo;Pain, foot pain COMPARISON: Foot Left 3 View dated 12/01/2019; Foot Left 2 View dated 01/04/2019 FINDINGS: No acute fracture changes are seen. There is no dislocation or periosteal reaction present. First toe has been resected. Distal shaft and head of the fifth metatarsal also resected. There is remodeling at the base of the fifth proximal phalanx. No erosive or destructive changes seen. Tarsal- metatarsal articulation degenerative changes are present. Bone and joint findings are similar to the November 30 study. Soft tissue edema present. No air or foreign body in the soft tissues. IMPRESSION: Soft tissue swelling without air or foreign body. Postsurgical changes to the left foot similar to [facility]. No acute or destructive findings identifiable. ROS: General: Awake, alert, oriented CV: S1,S2 RESP: Rhonchi throughout lung cummins ABD: Nontender, bowel sounds present Extremities: Stasis changes to bilateral lower extremities. Left foot great toe amputation Skin: Left foot 2nd digit with eschar. Right foot 5th digit callus Assessment and Plan: left foot 2nd digit diabetic foot ulcer and cellulitis, Xray not suggestive of osteomyelitis, MRI pending, recommend to apply betadine daily Blood and wound cultures pending Vancomycin and Levaquin day 2, continue while in hospital Upon discharge can switch to Doxycycline PO for total of 2 weeks if MRI not suggestive of osteomyelitis Diabetes mellitus, A1C 9.4 Protein calorie malnourished Will continue to monitor Thank you for consult Patient discussed with Dr. Hernandez
[2020-03-06] MEDS ORDERED: LORazepam 2 MG/ML VIAL IV ONE (16:00)
[2020-03-06] MEDS: Levofloxacin500mg IV 500 MG/100 ML BAG IV SCH (16:06)
[2020-03-06] MEDS: APIXABAN 5 MG TABLET PO SCH (20:14)
--- NOTE | 2020-03-06 20:49 | RAD REPORT ---
EXAM DESCRIPTION: US - Renal Ultrasound-Complete - 03/06/2020 8:16 pm CLINICAL HISTORY: Chronic renal disease COMPARISON: 2019 FINDINGS: The right kidney measures 11 cm with an increased echotexture. The left kidney measures 11 cm with an increased echotexture. Hydronephrosis is not seen. No gross abnormality of bladder is seen IMPRESSION: Increased renal echotexture consistent with parenchymal disease
[2020-03-06 20:51] VITALS: O2SAT 100
[2020-03-06] MEDS ORDERED: DIVALPROEX DR 500MG TAB PO SCH (21:00)
[2020-03-06] MEDS ORDERED: INSULIN GLARGINE 100 UNITS/ML SQ SCH (21:00)
[2020-03-07] MEDS ORDERED: VANCOMYCIN 1.5 GM in NA CHLORIDE 0.9% 500 ML IVPB SCH ×2
[2020-03-07] MEDS: HYDROMORPHONE HCL 1 MG/ML INJ IV PRN ×2 (00:55→04:20)
[2020-03-07] MEDS: HYDRALAZINE HCL 20 MG/ML VIAL IV PRN (04:20)
[2020-03-07 06:03] LABS: Absolute Lymphocytes (CBC) 1.2 K/uL (0.7-4.9); Basophils % 0.2 % (0-1.3); Hematocrit 28.2 % (39.6-49.0); Lymphocytes % 25.7 % (15.3-44.8); MPV 8.7 fL (7.6-11.3); Magnesium 1.7 mg/dL (1.8-2.4); RBC Red Blood Cell Count 3.12 M/uL (4.33-5.43)
[2020-03-07 06:19] VITALS: BP 157/78
[2020-03-07] MEDS ORDERED: MAGNESIUM SULFATE 1 gm IVPB 1 GM/100 ML BAG IV ONE (07:30)
[2020-03-07] MEDS: INSULIN -REGULAR HUMAN 50 UNIT/0.5 ML ML SQ SCH (07:30)
[2020-03-07] MEDS ORDERED: HYDROMORPHONE HCL 0.5 MG/0.5 ML INJ IV ONE (07:31)
[2020-03-07] MEDS ORDERED: LORazepam 2 MG/ML VIAL ONE (07:34)
--- NOTE | 2020-03-07 07:39 | P.PN ---
Subjective Date of Service: 03/07/20 Chief Complaint: Cellulitis of the left 2nd toe with possible osteomyelitis Subjective: Other (MRI was delayed yesterday due to increase agitation by the patient. Pain better controlled.) Physical Examination - Vital Signs Temperature: 97.3 F Blood Pressure: 157/78 Pulse: 83 Respirations: 18 Pulse Ox (%): 99 - Physical Exam General: Alert, In no apparent distress, Cooperative HEENT: Atraumatic Neck: Supple Respiratory: Clear to auscultation bilaterally, Normal air movement Cardiovascular: Normal pulses, Regular rate/rhythm Gastrointestinal: Normal bowel sounds Integumentary: Other (Black eschar noted to the left 2nd toe. Unchanged since yesterday. No significant erythema or swelling.) Neurological: Normal speech, Normal strength at 5/5 x4 extr, Normal tone, Abnormal affect (Patient with better mood today.) - Studies Medications List Reviewed: Yes Assessment & Plan Discharge Plan: Home Plan to discharge in: 24 Hours Physician Review Additional Text: Impression: Left 2nd toe and foot cellulitis with history of osteomyelitis Diabetes mellitus type 2 insulin-dependent Acute on chronic renal disease stage III Depression with anxiety/bipolar disorder/schizophrenia GERD Hypertension History CVA Diabetic neuropathy with chronic pain Peripheral arterial disease History of blood clots on chronic anti coagulation therapy Hyperlipidemia Plan: Left 2nd toe and foot cellulitis with history of osteomyelitis: Continue IV antibiotic therapy. MRI was delayed yesterday due to agitation. Will provide medication for agitation and pain today prior to MRI. Patient willing to cooperate. If MRI negative will plan to discharge on oral antibiotic therapy as recommended by infectious disease. Continue with current wound care. Patient on DVT prophylaxis. Anticipate possible discharge as early as today if MRI negative. If MRI abnormal showing osteomyelitis patient will likely require IV antibiotic therapy at home verses skilled placement verses long-term acute care facility. Await results on MRI to determine final plan of care. Diabetes mellitus type 2 insulin-dependent: Continue to adjust insulin for better control. Continue to adjust for better control. A1c greater than 9. Acute on chronic renal disease stage III: Overall stable. Will adjust medication accordingly. Will monitor closely. Depression with anxiety/bipolar disorder/schizophrenia: Continue medication. Will provide medication for agitation. GERD: Continue medication Hypertension: Continue medication History CVA: DVT prophylaxis in place Diabetic neuropathy with chronic pain: Will provide medication. Patient would benefit with pain management evaluation and treatment as an outpatient. Peripheral arterial disease: Continue medication History of blood clots on chronic anti coagulation therapy: Continue medication Hyperlipidemia: Continue medication Time Spent Managing Pts Care (In Minutes): 55
--- NOTE | 2020-03-07 08:31 | RAD REPORT ---
EXAM DESCRIPTION: MRI - Foot Left Wo Cont - 03/06/2020 10:16 am CLINICAL HISTORY: Left foot pain and swelling. Possible osteomyelitis second phalanx COMPARISON: X-ray March 05, 2020 TECHNIQUE: Axial, coronal magnetic resonance imaging left foot obtained. Sagittal images could not b e obtained due to difficulty with patient being still. FINDINGS: Amputation involves the first phalanx. Postsurgical changes involve the digit. No significant abnormal signal is seen within the second phalanx to suggest osteomyelitis. No soft tissue abscess visualized IMPRESSION: No evidence of osteomyelitis
[2020-03-07] MEDS: LOSARTAN POTASSIUM 50 MG TABLET PO SCH (08:45)
[2020-03-07] MEDS: METOPROLOL TAR 50 MG TAB PO SCH (08:45)
[2020-03-07] MEDS: ATORVASTATIN 40 MG TAB PO SCH (08:45)
[2020-03-07] MEDS: APIXABAN 5 MG TABLET PO SCH (08:45)
[2020-03-07] MEDS: TRAMADOL HCL 50 MG TAB PO SCH (08:46)
[2020-03-07] MEDS: RISPERIDONE 1 MG TABLET PO SCH (08:46)
[2020-03-07] MEDS: clonazePAM 0.5 MG TAB PO SCH (08:47)
[2020-03-07 08:50] VITALS: TEMP 97
[2020-03-07] MEDS ORDERED: COLLAGENASE 30 GM OINTMENT TOP SCH (09:00)
--- NOTE | 2020-03-07 09:06 | CON ---
Date of Consultation: 03/05/2020 Chief Complaint: Chronic diabetic kidney disease. History Of Present Illness: Patient is a 60-year-old man with history of diabetes mellitus; diabetic kidney disease; chronic kidney disease, stage 3. He is admitted to the hospital with generalized we akness. He recently was treated with IV antibiotics in the half-way. He was complaining of doug re pain and worsening of the pain over last few days. His second toe looked worse and he developed e schar and some bleeding from the second toe. Patient is undergoing workup for peripheral vascular di sease and diabetic foot infection. Treatment is resumed during this admission. Nephrology consultat ion is requested for chronic kidney disease. Patient has multiple medical problems. He has been jean claude ated with angiotensin receptor yanely for diabetic kidney disease. Review of Systems: General: Denies fever or chills. Eyes: Denies vision changes. Ears, Nose, Mouth, and Throat: Denies sore throat or earache. Respiratory: Denies PND or orthopnea. Cardiovascular: Denies chest pain or palpitations. GI: Denies nausea or vomiting. : Denies dysuria or hematuria. Musculoskeletal: He is complaining of leg pain and bleeding. All other systems reviewed and all are negative. Past Medical History: Diabetes mellitus, hypertension, seizure disorder, peripheral vascular disease , history of osteomyelitis, hyperlipidemia, bipolar disorder, tobacco abuse, schizophrenia, history o f amputation to the left great toe, history of blood clots, DVT, seizures, right eye surgery, right k nee surgery, bilateral wrist surgery, left great toe amputation. Family History: Brother, hypertension. Sister, diabetes. Father, heart disease. Mother, diabetes. Social History: Denies tobacco, alcohol, and illicit drugs. Physical Examination: Vital Signs: Blood pressure is 150/80, heart rate 99, respiratory rate 18, SpO2 94%. Eyes: Anicteric sclerae. EOMI. Ears, Nose, Mouth, and Throat: Oral mucosa moist. No pallor. Neck: Supple. No bruits. Lungs: Diminished breath sounds at bases. Heart: S1, S2. No pericardial friction rub. Abdomen: Soft, benign, nontender. No rebound. No guarding. Extremities: Dressing in place. Neurologic: Moving extremities. Cranial nerves intact. Psychiatric: Alert, oriented, lethargic, follows commands. Laboratory Data: Blood work: WBC 6.2, hemoglobin 9.9, hematocrit 29.2, platelet count 254,000. Sod ium 138, potassium 4.5, BUN 36, creatinine 1.91, glucose 180, total bilirubin 0.2, AP 110. Impression And Plan: 1.Cellulitis, osteomyelitis, peripheral vascular disease, diabetic neuropathy, diabetic foot infecti on in setting of recent worsening of cellulitis with bleeding. Patient is undergoing workup with [facility] team for peripheral vascular disease. Patient may need angiogram and patient will require medic ation with Mucomyst and IV fluids for IV contrast procedure. 2.For osteomyelitis, the patient will continue antibiotics. Adjust antibiotic dose to renal functio n. 3.Chronic kidney disease, diabetic kidney disease. Monitor proteinuria. Continue angiotensin medical office receptionist assistant tor yanely. Renal ultrasound is pending for evaluation of possible obstructive uropathy, although scot shankar is asymptomatic at this point and does not have a voiding problem. 4.Hypertension. Continue blood pressure medication and adjust medication for optimal systolic blood pressure 120. DELANEY/PER Voice ID: [id number] Report ID: [id number]
--- NOTE | 2020-03-07 09:30 | PN ---
Date of Progress Note: 03/06/2020 Chief Complaint: Chronic kidney disease, stage 3; diabetic foot infection; diabetes mellitus with re nal manifestation. Subjective: Patient has multiple medical problems. He is admitted for second toe and foot celluliti s with history of osteomyelitis. He is undergoing antibiotics. He is to have workup for peripheral vascular disease. Review of Systems: Denies PND or orthopnea. Physical Examination: Lungs: Diminished breath sounds at bases. Heart: S1 and S2. Abdomen: Soft, benign. Extremities: Dressing in place. Laboratory Data: Sodium 140, potassium 4.5, BUN 36, creatinine 1.9. AP 110. Impression And Plan: 1.Diabetic foot infection. Continue antibiotics. 2.Chronic kidney disease versus some prerenal azotemia. Continue adequate hydration. 3.The patient has diabetic kidney disease. Continue angiotensin receptor yanely. Monitor renal fu nction closely. 4.Hypertension. Blood pressure control. Adjust medication as needed. 5.Diabetes mellitus. Continue medication. Avoid metformin in view of chronic kidney disease. DELANEY/EFRENL Voice ID: [id number] Report ID: [id number]
--- NOTE | 2020-03-07 12:41 | P.DS ---
Admission Date: 03/05/20 Discharge Date: 03/07/20 Primary Care Provider: Dr. Dietrich; Podiatry-Dr. Mcfadden Disposition: AMA-LEFT AGAINST MEDICAL ADVIC Discharge Condition: GOOD Reason for Admission: Cellulitis of the left 2nd toe with possible osteomyelitis Consultations: Podiatry-Dr. Mcfadden Infectious disease-Dr. Hernandez Procedures: Renal US: FINDINGS: The right kidney measures 11 cm with an increased echotexture. The left kidney measures 11 cm with an increased echotexture. Hydronephrosis is not seen. No gross abnormality of bladder is seen IMPRESSION: Increased renal echotexture consistent with parenchymal disease MRI foot FINDINGS: Amputation involves the first phalanx. Postsurgical changes involve the digit. No significant abnormal signal is seen within the second phalanx to suggest osteomyelitis. No soft tissue abscess visualized IMPRESSION: No evidence of osteomyelitis Venous Doppler: FINDINGS: Triphasic waveform pattern seen along the length of each lower extremity. No occlusion or focal flow restricting lesion identified. Atherosclerotic changes are identifiable. Significant luminal narrowing not identified. The bilateral common femoral, superficial femoral and popliteal arteries show asymmetric waveform pattern with expected tapering of velocity. There significant elevation in the left dorsalis pedis artery. This is in part technical but does reflect more prominent atherosclerotic change. Right dorsalis pedis velocity elevation is less pronounced. IMPRESSION: No occlusion or flow restrictive lesion identified. Normal, triphasic waveform patterns seen in each lower extremity. Patient does have dorsalis pedis artery velocity elevation, left greater than right reflecting areas of greater peripheral arterial disease. Impression: Left 2nd toe and foot cellulitis with history of osteomyelitis Chronic right 5th toe osteomyelitis treated as outpatient Diabetes mellitus type 2 insulin-dependent Acute on chronic renal disease stage III Depression with anxiety/bipolar disorder/schizophrenia GERD Hypertension History CVA Diabetic neuropathy with chronic pain Peripheral arterial disease History of blood clots on chronic anti coagulation therapy Hyperlipidemia Brief History of Present Illness: 60-year-old male with multiple medical problems presented to the emergency room with left toe inflammation and pain. Eschar noted to the area. Patient recently hospitalized for osteomyelitis of the right 5th digit currently on outpatient antibiotic therapy IV. Hospital Course: Patient presented with left 2nd toe cellulitis. The patient was admitted for further evaluation. MRI showed no evidence of osteomyelitis. Patient was seen and evaluated by podiatry and infectious disease. Podiatry recommended no surgical intervention. Infectious Disease recommended doxycycline 100 mg twice daily for at least 10 days. Patient was to continue with current wound care as recommended by infectious disease. Before this could be addressed in detail with the patient, the patient decided to leave against medical advice. Patient was upset with his care for pain control. I was not able to go over in detail concerning plan of care as the patient left. Will reach out to podiatry and his PCP to further address so that this can be monitored closely. Patient with history of chronic osteomyelitis of the right 5th digit. Patient had been hospitalized and sent to a skilled facility with a PICC line. He was started on antibiotic therapy. This included vancomycin and Zosyn. Prior to discharge I tried to get accurate information on what dosage of medication he is to continue with. Upon further evaluation from the home health agency, they mentioned that his last day of treatment on vancomycin and Zosyn would be for tomorrow. This had been ordered by a physician at [facility] by the name of Dr. Costello. The patient was to be discharge from home health due to noncompliance. I will follow up with his PCP to further address this in detail. Will recommend to discontinue PICC line after tomorrow. This can be done with the help of his PCP. Patient with diabetes mellitus type 2 insulin dependent, acute on chronic renal disease stage III, depression with anxiety/bipolar disorder/schizophrenia, GERD, hypertension, history of CVA, diabetic neuropathy with chronic pain, peripheral arterial disease, history of blood clots on chronic anti coagulation therapy, and hyperlipidemia. Medications reviewed in detail. Patient may continue with his current medications. Again this will be address in detail with his PCP. Vital Signs/Physical Exam: Temp Pulse Resp BP Pulse Ox 97 F 83 18 157/78 H 99 03/07/20 08:00 03/07/20 08:45 03/07/20 08:46 03/07/20 08:45 03/07/20 08:46 General: Alert, In no apparent distress, Cooperative, Other (Increase anxiety) HEENT: Atraumatic Neck: Supple Respiratory: Clear to auscultation bilaterally Cardiovascular: Normal pulses, Regular rate/rhythm Gastrointestinal: Normal bowel sounds, Soft and benign, Non-distended Neurological: Normal speech, Normal strength at 5/5 x4 extr, Normal tone, Abnormal affect (Increase anxiety) Laboratory Data at Discharge: WBC 4.6 K/uL (4.3-10.9) 03/07/20 03:38 Hgb 9.6 g/dL (13.6-17.9) L 03/07/20 03:38 Hct 28.2 % (39.6-49.0) L 03/07/20 03:38 Plt Count 211 K/uL (152-406) 03/07/20 03:38 PT 12.0 SECONDS (9.5-12.5) 03/05/20 13:55 INR 1.02 03/05/20 13:55 Sodium 141 mmol/L (136-145) 03/07/20 03:38 Potassium 5.0 mmol/L (3.5-5.1) 03/07/20 03:38 BUN 39 mg/dL (7-18) H 03/07/20 03:38 Creatinine 1.81 mg/dL (0.55-1.3) H 03/07/20 03:38 Glucose 183 mg/dL (74-106) H 03/07/20 03:38 Magnesium 1.7 mg/dL (1.8-2.4) L 03/07/20 03:38 Total Bilirubin 0.2 mg/dL (0.2-1.0) 03/05/20 13:55 AST 19 U/L (15-37) 03/05/20 13:55 ALT 26 U/L (12-78) 03/05/20 13:55 Alkaline Phosphatase 110 U/L (45-117) 03/05/20 13:55 Triglycerides Cancelled 03/06/20 06:00 Cholesterol Cancelled 03/06/20 06:00 LDL Cholesterol Direct 104 mg/dL (100-129) 03/06/20 03:54 HDL Cholesterol Cancelled 03/06/20 06:00 Cholesterol/HDL Ratio Cancelled 03/06/20 06:00 Home Medications: Apixaban [Eliquis] 1 tab PO BID 12/01/19 Divalproex Sodium [Depakote] 3 tab PO BEDTIME 12/01/19 Hydrocodone 10/APAP 325 [Sanger 10/325*] 1 tab PO BID 12/01/19 Losartan Potassium [Cozaar*] 1 tab PO DAILY 12/01/19 Metoprolol Tartrate [Lopressor*] 1 tab PO BID 12/01/19 Risperidone 1 tab PO DAILY 12/01/19 Tramadol HCl [Ultram] 1 tab PO BID 12/01/19 clonazePAM [Klonopin*] 1 tab PO BID 12/01/19 Atorvastatin Calcium [Lipitor] 40 mg PO DAILY 03/05/20 Dextroamphetamine/Amphetamine [Dextroamp-Amphetamin 30 mg Tab] 1 tab PO BID 03/05/20 Patient Discharge Instructions: Patient left against medical advice. Please see progress note for details. Diet: ADA Activity: Fall precautions Time spent managing pt's care (in minutes): 55
== END 2020-03-07 08:55 | disposition left against medical advice (07) | DRG 603 ==
LOC: ER 13:24 → ERHOLD 15:36 → 2ND 16:31
PROVIDERS: ADMIT Hospitalist; ATTEND Family Medicine
DX: L03.116 Cellulitis of left lower limb (principal); E11.51 Type 2 diabetes mellitus with diabetic peripheral angiopathy without gangrene; E11.621 Type 2 diabetes mellitus with foot ulcer; L97.529 Non-pressure chronic ulcer of other part of left foot with unspecified severity; E11.42 Type 2 diabetes mellitus with diabetic polyneuropathy; K21.9 Gastro-esophageal reflux disease without esophagitis; F20.9 Schizophrenia, unspecified; F31.9 Bipolar disorder, unspecified; N28.9 Disorder of kidney and ureter, unspecified; E78.5 Hyperlipidemia, unspecified; F41.8 Other specified anxiety disorders; F17.200 Nicotine dependence, unspecified, uncomplicated; I12.9 Hypertensive chronic kidney disease with stage 1 through stage 4 chronic kidney disease, or unspecified chronic kidney disease; N18.3 Chronic kidney disease, stage 3 (moderate); E11.22 Type 2 diabetes mellitus with diabetic chronic kidney disease; Z88.5 Allergy status to narcotic agent; Z88.8 Allergy status to other drugs, medicaments and biological substances; Z86.73 Personal history of transient ischemic attack (TIA), and cerebral infarction without residual deficits; Z53.29 Procedure and treatment not carried out because of patient's decision for other reasons; Z79.01 Long term (current) use of anticoagulants; Z79.899 Other long term (current) drug therapy; Z79.891 Long term (current) use of opiate analgesic; Z89.412 Acquired absence of left great toe; Z91.5 Personal history of self-harm; Z79.4 Long term (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
CPT/HCPCS: 36415; 76770; 80048; 80053; 80061; 82607; 82728; 82746; 82947; 83036; 83540; 83735; 84466; 85025; 85610; 85652; 87040; 87070; 87077; 87186; 87205; 93925; 96365; 96366; 96374; 96375; 99283; 99285; J0360; J1170; J1650; J1815; J2405; J3370; J3475; J3590; J7030; J7040; J7050

== ENCOUNTER 2020-05-01 11:06 | Emergency (ER) | payer OTHER ==
--- OUTSIDE RECORDS SUMMARY | 2020-05-01 11:08 | XMS REPORT | Continuity of Care Document ---
:1960 Author Organization [facility] t Address [address] [place] [address] Care Team Providers Name Role Phone Crispin Anton DO Attending Clinician Sandra VALENCIA Attending Clinician Raul SHETH, R Attending Clinician Unavailable Magdaleno TORIBIO, A Attending Clinician Unavailable Ilene CONNELLY, F Attending Clinician Singer CARRERA Attending Clinician Parminder VALENCIA Attending Clinician Sari VALENCIA Attending Clinician Gonzalez CONNELLY Attending Clinician Nain PRUETT S Attending Clinician Doctor Unassigned, Name Attending Clinician Unavailable Corine VALENCIA, H Attending Clinician Sandra VALENCIA Admitting Clinician Sari VALENCIA Admitting Clinician Problems Condition Condition Condition Status Onset Resolution Last Treating Co mments Source Name Details Category Date Date Treatment Clinician Date Unspecifie Unspecifie Disease Active Overview : MD garcia Delirium d Delirium 16 psych An derso [...] dante dante 06-16 Anderso 00:00: n 00 Acute deep Acute deep Disease Active H arris vein vein Health thrombosis thrombosis (DVT) of (DVT) of proximal proximal vein of vein of left lower left lower extremity extremity Osteomyeli Osteomyeli Disease Active H arris tis of tis of Health left foot left foot Type 2 Type 2 Disease Active diabetes diabetes Lee o mellitus mellitus n with foot with foot ulcer ulcer Renal Renal Disease Active insufficie insufficie An derso ncy ncy n Chronic Chronic Disease Active pain of pain of Anderso right foot right foot n Allergies, Adverse Reactions, Alerts This patient has no known allergies or adverse reactions. Social History Social Habit Start Date Stop Date Quantity Comments Source Sex Assigned At MD Howard on Alcohol intake 2019-03-27 2019-03-27 [facility]-drinker [facility] 00:00:00 00:00:00 (finding) Tobacco use and 2018-12-25 2018-12-25 Current user MD Elio forbes exposure 00:00:00 00:00:00 Smoking Status Start Date Stop Date Source Former smoker 2019-03-27 00:00:00 2019-03-27 00:00:00 Gabriel dickey Current some day smoker 2018-12-25 00:00:00 MD Ihsan spencer Medications Ordered Filled Start Stop Current Ordering Indication Dosage Frequency Signature Comments Components Source Medication Medication Date Date Medication? Clinician (SIG) Name Name cadexomer Yes Chronic Apply MD iodine 7-20 pain of topically Vj so (IODOSORB) 00:00: right foot to n 0.9% gel 00 affected area(s) every other day. benztropine 2018- Yes .5mg Take 0.5 MD (COGENTIN) 7-19 [...] to n 00 affected area(s) daily. polyethylen 2018- Yes Chronic 17g Take 17 g MD [...] [facility] Risperidone Risperidone Yes Sylvain [address] [facility] Metoprolol Metoprolol Yes Sylvain [address] [facility] Tartrate Tartrate Dietrich with food [facility] Losartan Losartan Yes Sylvain [address] Potassium Potassium [facility] Divalproex Divalproex Yes Sylvain [address] [facility] [address] Sodium ER Sodium ER Dietrich [facility] BusPIRone BusPIRone Yes Sylvain [address] [facility] HCl HCl [facility]rich [facility] Pen [place] Pen [place] Yes Sylvain N/s [facility]rich [facility] Atorvastati Atorvastati Yes Sylvain [address] [facility] n Calcium n Calcium Dietrich [facility] Advair Advair Yes Sylvain [address] [facility] [address] Diskus Diskus Dietrich [facility] True Metrix True Metrix Yes Sylvain USE TO [facility] Blood Blood Dietrich TEST BLOOD [facility] - Glucose Glucose SUGAR 1-2 Joe cristina Test Test TIMES l EVERY DAY [facility] NovoLIN NovoLIN Yes Sylvain INJECT [facility] t 70/30 70/30 Dietrich SUBQUTANEO [facility] - FlexPen FlexPen USLY 65 Memori a UNITS l TWICE Outpati DAILY ent Clinics UltiCare UltiCare Yes Sylvain USE ONE [facility] Micro Pen Micro Pen Dietrich NEEDLE Rita kes - [place] THREE Memoria TIMES l DAILY WITH [facility] NOVOLIN FLEXPEN Procedures This patient has no known procedures. Plan of Care Planned Activity Planned Date Details Comments Source Future Scheduled Test 2020-03-09 00:00:00 IMM Influenza [facility] Seasonal Mar to August (>/= 19 yrs) [code = IMM Influenza Seasonal Mar to August (>/= 19 yrs)] Future Scheduled Test 2011 00:00:00 Screening for [facility] malignant neoplasm of colon (procedure) [code = 168079268] Encounters Start End Encounter Admission Attending Care Care Encounter Source Date/Time Date/Time Type Type Clinicians Facility Department ID 2020-04-04 2020-04-[facility] [id number] 2020-04-03 2020-04-03 [facility] [id number] [facility] 2020-04-03 2020-04-03 [facility] [id number] [facility] 2020-03-27 2020-03-29 Emergency Becky Anton [facility] 1.2.8 [id number] 17:12:00 17:10:00 Chuck Flores [id number] [place] [id number] Anabel [id number] 2020-03-23 2020-03-23 Edgar Carter [facility] [id number] 00:00:00 00:00:00 (Out) Elaina Maldonado [id number] [place] [id number] Anabel [id number] 2020-03-21 2020-03-21 Outpatient [facility] [id number] [facility] 2020-03-15 2020-03-15 Transition Rosaline Dolan [id number] 00:00:00 00:00:00 of Care Mehul Vega [id number] [place] [id number] 2020-03-08 2020-03-14 [facility] Grace Odom [facility] 1.2.8 [id number] [id number] 17:36:00 18:10:00 Encounter Rafael Haro [id number] Willy [place] [id number] Avis Guo Anabel [id number] 2020-03-08 2020-03-08 [facility] [id number] [facility] 2020-03-03 2020-03-03 Emergency [facility] [id number] 18:26:00 23:02:00 Trinh Joel [id number] [place] [id number] Anabel [id number] 2020-03-03 2020-03-03 [facility] [id number] [facility] 2020-03-01 2020-03-01 [facility] [id number] [facility] 2020-02-22 2020-02-22 [facility] [id number] [facility] 2020-02-13 2020-02-18 [facility] Yazmin Gilletet [facility] [id number] 17:07:00 18:00:00 Encounter Avis Guo [id number] [place] [id number] Anabel [id number] 2020-02-13 2020-02-13 Orders Doctor CHEW [id number] 00:00:00 00:00:00 Only Unassigned, MARIELOS [id number] [place] [facility] [id number] 2020-01-28 2020-01-28 [facility] [id number] [facility] 08:27:00 08:27:00 t [employer] Medicine Outpati ent Clinics 2020-01-26 2020-01-26 [facility] [id number] [facility] [address] 11:04:00 11:04:00 t [employer] [facility] Medicine Outpati ent Clinics 2020-01-05 2020-01-05 [facility] [id number] [facility] 16:30:00 16:30:00 t [place] [facility] [employer] [facility] Family Medicine l Medicine Outpati ent Clinics 2020-01-03 2020-01-03 [facility] [id number] 10:59:00 10:59:00 [place] [employer] - [address] [facility] Medicine l Medicine Outpati ent Clinics 2019-12-17 2019-12-17 Office Corine [facility] [id number] 12:00:00 12:30:00 Visit Bernardino Maldonado [id number] [place] [id number] [facility] [id number] [address] 2019-11-24 2019-11-24 [facility] [id number] 11:16:00 11:16:00 [facility] Medicine l Medicine Outpati ent Clinics 2019-11-24 2019-11-24 [facility] [id number] 11:15:00 11:15:00 t [place] [employer] [facility] Family Medicine l Medicine Outpati ent Clinics 2019-11-11 2019-11-11 [facility] [id number] [address] 09:41:00 09:41:00 [facility] Family Medicine l Medicine Outpati ent Clinics 2019-11-10 2019-11-10 [facility] [id number] 10:30:00 10:30:00 t [place] [employer] [facility] [address] [facility] Medicine l Medicine Outpati ent Clinics 2019-03-27 2019-03-27 Emergency [facility] [id number] Gabriel 11:00:00 11:00:00 Health 2019-03-27 2019-03-27 Emergency [facility] [id number] Gabriel 10:55:25 10:55:25 Health 2019-03-27 2019-03-27 Emergency [facility] [id number] Gabriel 08:02:06 08:02:06 Health 2019-03-27 2019-03-27 Emergency [facility] [id number] 5 Gabriel 00:00:00 00:00:00 Health Results This patient has no known results.
--- OUTSIDE RECORDS SUMMARY | 2020-05-01 11:08 | XMS REPORT | Clinical Summary ---
:1960 Author Organization [facility] Address [facility] [address] [place] [address] Care Team Providers Name Role Phone Unavailable Primary Care Provider Unavailable Allergies No Known Allergies Medications Not on file Active Problems Problem Noted Date Acute deep vein thrombosis (DVT) of proximal vein of l eft lower extremity Osteomyelitis of left foot Social History Tobacco Use Types Packs/Day Years Used Date Former Smoker Smokeless Tobacco: Never Used Alcohol Use Drinks/Week oz/Week Comments Not Currently Sex Assigned at Date Recorded Not on file Job Start Date Occupation Industry Not on file Not on file Not on file Travel History Travel Start Travel End No recent travel history available. Last Filed Vital Signs Not on file Plan of Treatment Health Maintenance Due Date Last Done Comments Colorectal Cancer Scrn Annual (FIT/FOBT) Age 50 to 75 2011 IMM Influenza Seasonal Mar to August (>/= 19 yrs) 03/09/2020 Results Not on fileafter 05/01/2019 Insurance Payer Benefit Plan / Subscriber ID Effective Dates Phone Addre ss Type Group MEDICARE MEDICARE PART xxxxxxxxxxx 2004-Preslorraine [id number] [place] [address] [place] [id number] SSI xxxxxxxxx 2013-Prese [phone] [id number] [place] [address]
--- OUTSIDE RECORDS SUMMARY | 2020-05-01 11:08 | XMS REPORT ---
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
--- NOTE | 2020-05-01 12:22 | RAD REPORT ---
EXAM DESCRIPTION: RAD - Chest Single View - 05/01/2020 12:02 pm CLINICAL HISTORY: COUGH Chest pain. COMPARISON: Chest Single View dated 09/04/2019; Chest Single View dated 03/28/2019; Chest Single View dated 01/04/2019; Chest Single View dated 07/22/2018 FINDINGS: Portable technique limits examination quality. The lungs are grossly clear. The heart is normal in size. No displaced fractures. IMPRESSION: No acute intrathoracic process suspected.
[2020-05-01 12:47] LABS: Absolute Lymphocytes (CBC) 1.4 K/uL (0.7-4.9); Basophils % 0.3 % (0-1.3); Hematocrit 35.4 % (39.6-49.0); Lymphocytes % 27.5 % (15.3-44.8); RBC Red Blood Cell Count 3.94 M/uL (4.33-5.43)
[2020-05-01 13:02] LABS: ALT/SGPT 27 U/L (12-78); AST/SGOT 22 U/L (15-37); Albumin 3.3 g/dL (3.4-5.0); Alkaline Phosphatase 119 U/L (45-117); BUN Blood Urea Nitrogen 27 mg/dL (7-18); Bicarbonate 27 mmol/L (21-32); Bilirubin Direct < 0.1 mg/dL (0-0.2); Bilirubin Total 0.3 mg/dL (0.2-1.0); Glucose Level 118 mg/dL (74-106); Magnesium 1.6 mg/dL (1.8-2.4); NT PRO-BNP 1236 pg/mL (<125); Potassium 4.8 mmol/L (3.5-5.1); Protein, Total 7.3 g/dL (6.4-8.2); Sodium Level 141 mmol/L (136-145); Troponin (Emerg Dept Use Only) < 0.02 ng/mL (0.0-0.045)
--- NOTE | 2020-05-01 13:11 | EDPHYS ---
Physician Documentation [facility] Name: Gasper Fry Age: 60 yrs Sex: Male : 1960 Arrival Date: 05/01/2020 Time: 11:09 Bed 17 Private MD: ED Physician Lance Ponce HPI: 05/01 11:44 This 60 yrs old Male presents to ER via Ambulatory with complaints of sent jerome from wound care for hypertension. 11:44 no complaints, took losartan and metoprolol this morning. Onset: The symptoms/episode jerome began/occurred just prior to arrival. Severity of symptoms: At their worst the symptoms were mild in the emergency department the symptoms are unchanged. The patient has experienced similar episodes in the past, several times. Historical: - Allergies: 11:15 Haldol (Anaphylaxis); tw2 11:15 Narcan (Anaphylaxis); tw2 - PMHx: 11:15 ADD/ADHD; Anxiety; Bipolar disorder; Cellulitis; Diabetes - IDDM; Chronic pain; CVA; tw2 Hypertension; neuropathy; Seizures; - PSHx: 11:15 Neck Surgery; Knee surgery; Back Surgery; tw2 - Immunization history:: Adult Immunizations. - Social history:: Smoking status: . - Family history:: not pertinent. ROS: 11:44 Constitutional: Negative for fever, chills, and weight loss, Eyes: Negative for injury, jerome pain, redness, and discharge, ENT: Negative for injury, pain, and discharge, Neck: Negative for injury, pain, and swelling, Cardiovascular: Negative for chest pain, palpitations, and edema, Respiratory: Negative for shortness of breath, cough, wheezing, and pleuritic chest pain, Abdomen/GI: Negative for abdominal pain, nausea, vomiting, diarrhea, and constipation, Back: Negative for injury and pain, : Negative for injury, bleeding, discharge, and swelling, MS/Extremity: Negative for injury and deformity, Skin: Negative for injury, rash, and discoloration, Neuro: Negative for headache, weakness, numbness, tingling, and seizure, Psych: Negative for depression, anxiety, suicide ideation, homicidal ideation, and hallucinations, Allergy/Immunology: Negative for hives, rash, and allergies, Endocrine: Negative for neck swelling, polydipsia, polyuria, polyphagia, and marked weight changes, Hematologic/Lymphatic: Negative for swollen nodes, abnormal bleeding, and unusual bruising. Exam: 11:44 Constitutional: This is a well developed, well nourished patient who is awake, alert, jerome and in no acute distress. Head/Face: Normocephalic, atraumatic. Eyes: Pupils equal round and reactive to light, extra-ocular motions intact. Lids and lashes normal. Conjunctiva and sclera are non-icteric and not injected. Cornea within normal limits. Periorbital areas with no swelling, redness, or edema. ENT: Nares patent. No nasal discharge, no septal abnormalities noted. Tympanic membranes are normal and external auditory canals are clear. Oropharynx with no redness, swelling, or masses, exudates, or evidence of obstruction, uvula midline. Mucous membranes moist. Neck: Trachea midline, no thyromegaly or masses palpated, and no cervical lymphadenopathy. Supple, full range of motion without nuchal rigidity, or vertebral point tenderness. No Meningismus. Chest/axilla: Normal chest wall appearance and motion. Nontender with no deformity. No lesions are appreciated. Cardiovascular: Regular rate and rhythm with a normal S1 and S2. No gallops, murmurs, or rubs. Normal PMI, no JVD. No pulse deficits. Respiratory: Lungs have equal breath sounds bilaterally, clear to auscultation and percussion. No rales, rhonchi or wheezes noted. No increased work of breathing, no retractions or nasal flaring. Abdomen/GI: Soft, non-tender, with normal bowel sounds. No distension or tympany. No guarding or rebound. No evidence of tenderness throughout. Back: No spinal tenderness. No costovertebral tenderness. Full range of motion. Male : Normal genitalia with no discharge or lesions. Skin: Warm, dry with normal turgor. Normal color with no rashes, no lesions, and no evidence of cellulitis. MS/ Extremity: Pulses equal, no cyanosis. Neurovascular intact. Full, normal range of motion. Neuro: Awake and alert, GCS 15, oriented to person, place, time, and situation. Cranial nerves II-XII grossly intact. Motor strength 5/5 in all extremities. Sensory grossly intact. Cerebellar exam normal. Normal gait. Psych: Awake, alert, with orientation to person, place and time. Behavior, mood, and affect are within normal limits. 13:12 ECG was reviewed by the Attending Physician. [facility] Vital Signs: 11:11 BP 194 / 113; Pulse 88; Resp 18; Temp 97.9(TE); Pulse Ox 100% on R/A; Weight 99.79 kg tw2 (R); Height 6 ft. 0 in. (182.88 cm); 11:37 BP 181 / 93; Pulse 85; Resp 18; Pulse Ox 100% on R/A; tw2 12:30 BP 178 / 87; Pulse 82; Resp 16; Pulse Ox 100% on R/A; ph 13:37 BP 167 / 90; Pulse 79; Resp 18; Pulse Ox 100% on R/A; ph 14:39 BP 154 / 97; Pulse 78; Resp 18; Temp 97.7(TE); Pulse Ox 100% on R/A; ph 11:11 Body Mass Index 29.84 (99.79 kg, 182.88 cm) tw2 MDM: 11:10 Patient medically screened. [facility] 11:46 Data reviewed: vital signs, nurses notes, lab test result(s), EKG, radiologic studies, jerome plain films. Data interpreted: panel monitor: rate is 85 beats/min, rhythm is regular, Pulse oximetry: on is 100 %. Test interpretation: by ED physician or midlevel provider: ECG, plain radiologic studies. Counseling: I had a detailed discussion with the patient and/or guardian regarding: the historical points, exam findings, and any diagnostic results supporting the discharge/admit diagnosis, lab results, radiology results. 05/01 11: Order name: Basic Metabolic Panel; Complete Time: 13: [facility] 05/01 11: Order name: CBC with Diff; Complete Time: 13: [facility] 05/01 11: Order name: LFT's; Complete Time: 13: [facility] 05/01 11: Order name: Magnesium; Complete Time: 13: [facility] 05/01 11: Order name: NT PRO-BNP; Complete Time: 13: [facility] 05/01 11: Order name: Troponin (emerg Dept Use Only); Complete Time: 13: [facility] 05/01 11: Order name: XRAY Chest (1 view); Complete Time: 12:52 [facility] 05/01 11 Order name: EKG; Complete Time: 11: [facility] 05/01 11:29 Order name: Cardiac monitoring; Complete Time: 11:30 [facility] 05/01 11:29 Order name: EKG - Nurse/Tech; Complete Time: 11:33 [facility] 05/01 11:29 Order name: IV Saline Lock; Complete Time: 12:38 [facility] 05/01 11:29 Order name: Labs collected and sent; Complete Time: 12:37 [facility] 05/01 11:29 Order name: O2 Per Protocol; Complete Time: 12:38 [facility] 05/01 11:29 Order name: O2 Sat Monitoring; Complete Time: 12:38 [facility] EC:12 Rate is 84 beats/min. Rhythm is regular. QRS [place] is Normal. AR interval is normal. QRS jerome interval is normal. QT interval is normal. No Q waves. T waves are Normal. No ST changes noted. Clinical impression: NSR w/ Non-specific ST/T Changes and No evidence of ischemia. Interpreted by me. Reviewed by me. Administered Medications: 13:45 Drug: Magnesium Sulfate 1 grams Route: IVPB; Infused Over: 1 hrs; Site: left antecubital; 14:38 Follow up: Response: No adverse reaction; IV Status: Completed infusion; IV Intake: ph 100ml Disposition: 05/01/20 13:10 Discharged to Home. Impression: Essential (primary) hypertension, Unspecified kidney failure - chronic. - Condition is Stable. - Discharge Instructions: Hypertension, Hypertension, [id number], How to Take Your Blood Pressure, Yqge-nv-[id number], Chronic Kidney Disease, Adult, [id number], Managing Your Hypertension. - Medication Reconciliation Form, Thank You Letter, Antibiotic Education, Prescription Opioid Use form. - Follow up: Private Physician; When: 2 - 3 days; Reason: Recheck today's complaints, Continuance of care, Re-evaluation by your physician. Follow up: Tyler Gomez; When: 2 - 3 days; Reason: Recheck today's complaints, Continuance of care, Re-evaluation by your physician. - Problem is new. - Symptoms have improved. Signatures: Dispatcher [employer] EDLance Cummins MD MD cha Hall, Patricia, RN RN Jeannine Sosa RN RN tw2 Corrections: (The following items were deleted from the chart) 14:43 13:10 05/01/2020 13:10 Discharged to Home. Impression: Essential (primary) ph hypertension; Unspecified kidney failure - chronic. Condition is Stable. Discharge Instructions: Hypertension, Hypertension, [id number], How to Take Your Blood Pressure, Hyxp-hw-[id number], Managing Your Hypertension. Forms are Medication Reconciliation Form, Thank You Letter, Antibiotic Education, Prescription Opioid Use. Follow up: Private Physician; When: 2 - 3 days; Reason: Recheck today's complaints, Continuance of care, Re-evaluation by your physician. Follow up: Tyler Gomez; When: 2 - 3 days; Reason: Recheck today's complaints, Continuance of care, Re-evaluation by your physician. Problem is new. Symptoms have improved. jerome
--- NOTE | 2020-05-01 13:11 | ER ---
Nurse's Notes [facility] Name: Gasper Fry Age: 60 yrs Sex: Male : 1960 Arrival Date: 05/01/2020 Time: 11:09 Bed 17 Private MD: Diagnosis: Essential (primary) hypertension;Unspecified kidney failure-chronic Presentation: 05/01 11:11 Chief complaint: Patient states: i was at wound [facility] and they sent me here tw2 because of my blood pressure, and i am having some chest pain on RIGHT side and RIGHT arm. Coronavirus screen: At this time, the client does not indicate any symptoms associated with coronavirus-19. Ebola Screen: Patient denies travel to an Ebola-affected area in the 21 days before illness onset. Initial Sepsis Screen: Does the patient meet any 2 criteria? No. Patient's initial sepsis screen is negative. Does the patient have a suspected source of infection? No. Patient's initial sepsis screen is negative. Risk Assessment: Do you want to hurt yourself or someone else? Patient reports no desire to harm self or others. Note provider notified of BP at this time and pts c/o of chest pain. Onset of symptoms was May 01, 2020. 11:11 Method Of Arrival: Ambulatory tw2 11:11 Acuity: DARREL 2 tw2 Triage Assessment: 11:13 General: Appears in no apparent distress. Behavior is calm, cooperative, appropriate tw2 for age. Pain: Complains of pain in right clavicle, anterior aspect of right upper chest and right breast Pain radiates to right arm. Historical: - Allergies: 11:15 Haldol (Anaphylaxis); tw2 11:15 Narcan (Anaphylaxis); tw2 - PMHx: 11:15 ADD/ADHD; Anxiety; Bipolar disorder; Cellulitis; Diabetes - IDDM; Chronic pain; CVA; tw2 Hypertension; neuropathy; Seizures; - PSHx: 11:15 Neck Surgery; Knee surgery; Back Surgery; tw2 - Immunization history:: Adult Immunizations. - Social history:: Smoking status: . - Family history:: not pertinent. Screenin:36 Abuse screen: Denies threats or abuse. Denies injuries from another. Nutritional ph screening: No deficits noted. Tuberculosis screening: No symptoms or risk factors identified. Fall Risk None identified. Assessment: 11:37 Reassessment: provider at bedside at this time. tw2 11:37 Reassessment: Patient appears in no apparent distress at this time. No changes from tw2 previously documented assessment. Patient and/or family updated on plan of care and expected duration. Pain level reassessed. Patient is alert, oriented x 3, equal unlabored respirations, skin warm/dry/pink. 12:00 General: Appears in no apparent distress. comfortable, well groomed, Behavior is calm, ph cooperative, appropriate for age, Denies fever, feeling ill. Pain: Denies pain. Neuro: Level of Consciousness is awake, alert, obeys commands, Oriented to person, place, time, situation. 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 Respiratory: Airway is patent Respiratory effort is even, unlabored, Respiratory pattern is regular, symmetrical. GI: No signs and/or symptoms were reported involving the gastrointestinal system. Derm: Skin is healthy with good turgor, Skin is pink, warm \T\ dry. Musculoskeletal: Circulation, motion, and sensation intact. Range of motion: intact in all extremities. 13:38 Reassessment: D/C pending completion of IV medication. ph Vital Signs: 11:11 BP 194 / 113; Pulse 88; Resp 18; Temp 97.9(TE); Pulse Ox 100% on R/A; Weight 99.79 kg tw2 (R); Height 6 ft. 0 in. (182.88 cm); 11:37 BP 181 / 93; Pulse 85; Resp 18; Pulse Ox 100% on R/A; tw2 12:30 BP 178 / 87; Pulse 82; Resp 16; Pulse Ox 100% on R/A; ph 13:37 BP 167 / 90; Pulse 79; Resp 18; Pulse Ox 100% on R/A; ph 14:39 BP 154 / 97; Pulse 78; Resp 18; Temp 97.7(TE); Pulse Ox 100% on R/A; ph 11:11 Body Mass Index 29.84 (99.79 kg, 182.88 cm) tw2 ED Course: 11:09 Patient arrived in ED. jerome 11:09 Lance Ponce MD is Attending Physician. [facility] 11:13 Triage completed. tw2 11:13 Arm band placed on. tw2 11:15 Soumya Muro, RN is Primary Nurse. ph 12:03 XRAY Chest (1 view) In Process Unspecified. EDMS 12:35 Inserted saline lock: 22 gauge in left antecubital area, using aseptic technique. Blood tw2 collected. 13:10 Tyler Gomez MD is Referral Physician. [facility] 13:36 Patient has correct armband on for positive identification. Placed in gown. Bed in low ph position. Call light in reach. Pulse ox on. NIBP on. Door closed. Noise minimized. Warm blanket given. Diet tray given. 14:42 No provider procedures requiring assistance completed. IV discontinued, intact, ph bleeding controlled, No redness/swelling at site. Pressure dressing applied. Administered Medications: 13:45 Drug: Magnesium Sulfate 1 grams Route: IVPB; Infused Over: 1 hrs; Site: left ph antecubital; 14:38 Follow up: Response: No adverse reaction; IV Status: Completed infusion; IV Intake: ph 100ml Intake: 14:38 IV: 100ml; Total: 100ml. ph Outcome: 13:10 Discharge ordered by . [facility] 14:43 Discharged to home via wheelchair, with family. ph 14:43 Condition: good 14:43 Discharge instructions given to patient, Instructed on discharge instructions, follow up and referral plans. Demonstrated understanding of instructions, follow-up care. 14:43 Patient left the ED. ph Signatures: Dispatcher [employer] EDMS Lance Ponce MD MD cha Hall, Patricia, RN RN ph Jeannine Sosa RN RN tw2 Corrections: (The following items were deleted from the chart) 14:38 14:37 Response: No adverse reaction; IV Status: Completed infusion ph ph
[2020-05-01] MEDS ORDERED: MAGNESIUM SULFATE 1 gm IVPB 1 GM/100 ML BAG IV ONE (13:53)
[2020-05-01 17:56] VITALS: O2SAT 100
[2020-05-01 18:07] VITALS: BP 154/97; TEMP 97.7
--- NOTE | 2020-05-02 18:15 | EKG ---
Test Date: 2020-05-01 Test Time: 11:19:40 Business Services Sales Representative: JENNI MEASUREMENT RESULTS: Intervals: Rate: 84 NJ: 158 QRSD: 100 QT: 384 QTc: 453 [place]: P: 43 NJ: 158 QRS: -27 T: 53 INTERPRETIVE STATEMENTS: Normal sinus rhythm Possible Anterolateral infarct, age undetermined Abnormal ECG Compared to ECG 02/02/2020 15:13:45 Myocardial infarct finding now present Left-axis deviation no longer present Electronically Signed On 05-02-20 18:11:39 HOT STAMP OPERATOR by Tyler Gomez
== END 2020-05-01 14:43 | disposition home or self-care (01) ==
LOC: ER 11:06
DX: I12.9 Hypertensive chronic kidney disease with stage 1 through stage 4 chronic kidney disease, or unspecified chronic kidney disease (principal); Z88.5 Allergy status to narcotic agent
CPT/HCPCS: 96365; 93005; 85025; 80048; 36415; 83735; 80076; 84484; 83880; 71045; 99284; J3475

== ENCOUNTER 2020-12-02 19:00 | Inpatient (IN) | payer OTHER ==
--- OUTSIDE RECORDS SUMMARY | 2020-12-02 19:05 | XMS REPORT | Continuity of Care Document ---
:1960 Author Organization [facility] t Address [address] [place] [address] [place] [address] Care Team Providers Name Role Phone Parminder VALENCIA Attending Clinician Sandra VALENCIA Attending Clinician Antonella CONNELLY Attending Clinician Sandra VALENCIA Admitting Clinician Payers Payer Name Policy Type Policy Number Effective Date Expiration Date S ource Problems Condition Condition Condition Status Onset Resolution Last Treating Co mments Source Name Details Category Date Date Treatment Clinician Date Unspecifie Unspecifie Disease Active Overview : d Delirium d Delirium 7-16 [place] 00:00: g of this n 00 note might be different from the original. psych team on board O/E - Left O/E - Left [...] Deep Disease Active Overview: venous venous 12-21 Formattin Anderso thrombosis thrombosis 00:00: g of this n 00 note might be different from the original. Left LE DVT per venous Doppler US Altered Altered Disease Active mental mental 3-05 Anderso status status 00:00: n 00 Hyperglyce Hyperglyce Disease Active M D dante dante 06-16 Anderso 00:00: n 00 STROKE Diagnosis Active 2013-062014-04-16 Mem oria 06-15 00:51:00 l STROKE 00:00: [place] 00 Active 04/15/2014 [facility] BREAKTHROU Diagnosis Active 2013-062014-04-19 Memoria GH SEIZURE 06-15 06:25:00 l 00:00: Raul BREAKTHROU 00 GH SEIZURE Active 04/15/2014 [facility] PORTIA Diagnosis Active 2013-062014-04-18 Memoria BILLING 06-15 17:31:00 l 00:00: Raul PORTIA 00 BILLING Active 04/15/2014 [facility] FEBRILE Diagnosis Active 2014-04-19 Me moria CONVULSION 06:25:00 l S NOS FEBRILE [place] CONVULSION S NOS Active [facility] Acute deep Acute deep Disease Active H arris vein vein Health thrombosis thrombosis (DVT) of (DVT) of proximal proximal vein of vein of left lower left lower extremity extremity Osteomyeli Osteomyeli Disease Active H arris tis of tis of Health left foot left foot Chronic Chronic Disease Active MD pain of pain of Anderso right foot right foot n 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 diabetes Lee o mellitus mellitus n with foot with foot ulcer ulcer Renal Renal Disease Active MD insufficie insufficie An derso ncy ncy n Allergies, Adverse Reactions, Alerts Allergy Allergy Status Severity Reaction(s) Onset Inactive Treating Comm ents Source Name Type Date Date Clinician naloxone DA Active [facility] HCl 8-12 Clear 00:00: Martinez 00 [facility] haloperi DA Active [place] [facility] dol 8-12 Clear 00:00: Martinez 00 [facility] Social History Social Habit Start Date Stop Date Quantity Comments Source Alcohol intake 2019-03-27 2019-03-27 Ex-drinker Gabriel Hyde lt 00:00:00 00:00:00 (finding) Tobacco use and 2018-12-25 2018-12-25 Current user MD Elio forbes exposure 00:00:00 00:00:00 Sex Ass[birth year] At [birth year] MD [place] on 00:00:00 00:00:00 Smoking Status Start Date Stop [...] Dietrich at bedtime [facility] NovoLIN NovoLIN Yes Yslvain Inject [address] 70/30 70/30 Dietrich units [facility] Tramadol Tramadol Yes Sylvain [address] HCl HCl Dietrich as needed [facility] Hydrocodone Hydrocodone Yes Sylvain [address] [facility] -Acetaminop -Acetaminop Dietrich as needed [facility] Eliquis Eliquis Yes Sylvain TAKE 1 [facility] Dietrich TABLET BY [facility] MOUTH [facility] TWICE l DAILY [facility] Benztropine Benztropine Yes Sylvain [address] Mesylate Mesylate Dietrich at bedtime [facility] Amphetamine Amphetamine Yes Sylvain [address] -Dextroamph -Dextroamph Dietrich [facility] etamine etamine [facility] Risperidone Risperidone Yes Sylvain [address] Dietrich [facility] Metoprolol Metoprolol Yes Sylvain [address] Tartrate Tartrate Dietrich with food [facility] Losartan Losartan Yes Sylvain [address] Potassium Potassium Dietrich [facility] Divalproex Divalproex Yes Sylvain [address] Sodium ER Sodium ER Dietrich [facility] BusPIRone BusPIRone Yes Sylvain [address] HCl HCl Dietrich [facility] Pen Erie Pen Erie Yes Sylvain N/s [facility]rich [facility] Atorvastati Atorvastati Yes Sylvain [address] [facility] [facility] n Calcium n Calcium Dietrich [facility] Advair Advair Yes Sylvain [address] Diskus Diskus Dietrich [facility] True Metrix True Metrix Yes [...] Micro Pen Dietrich NEEDLE Rita kes - E[place] Erie THREE Memoria TIMES l DAILY WITH Outpati VICTOZA ent AND Clinics NOVOLIN FLEXPEN Procedures This patient has no known procedures. Plan of Care Planned Activity Planned Date Details Comments Source Future Scheduled Test 2021-03-09 00:00:00 IMM Influenza [facility] Seasonal Mar to August (>/= 19 yrs) [code = IMM Influenza Seasonal Mar to August (>/= 19 yrs)] Future Scheduled Test 2011 00:00:00 Screening for [facility] malignant neoplasm of colon (procedure) [code = 785177967] Future Scheduled Test 1973 00:00:00 COVID-19 Vaccine (1) [facility] [code = COVID-19 Vaccine (1)] Encounters Start End Encounter Admission Attending Care Care Encounter Source Date/Time Date/Time Type Type Clinicians Facility Department ID 2020-11-28 2020-11-29 Emergency Zur[facility]Willy [facility] [id number] 12:37:00 15:13:00 Chuck Flores [id number] [place] [id number] [place] [id number] 2020-11-28 2020-11-28 Office Antonella [facility] [id number] 11:33:51 12:50:43 Visit [facility] [id number] [place] [id number] nal 044 Office [address] One 2020-04-04 2020-04-04 Outpatient [facility] [id number] [facility] 2020-04-03 2020-04-03 Outpatient [facility] [id number] [facility] 2020-04-03 2020-04-03 Out[facility] [id number] [facility] 2020-03-21 2020-03-21 Outpatient [facility] [id number] [facility] 2020-03-08 2020-03-08 [facility] [id number] [facility] 2020-03-03 2020-03-03 Out[facility] [id number] [facility] 2020-03-01 2020-03-01 [facility] [id number] [facility] 2020-02-22 2020-02-22 [facility] [id number] [facility] 2020-01-28 2020-01-28 [facility] [id number] [facility] [address] 08:27:00 08:27:00 t [employer] s - Drive [facility] Medicine l Medicine Outpati ent Clinics 2020-01-26 2020-01-26 [facility] [id number] 11:04:00 11:04:00 t [facility] - Drive [facility] Medicine l Medicine Outpati ent Clinics 2020-01-05 2020-01-05 [facility] [id number] 16:30:00 16:30:00 t [facility] [employer] s - Drive [facility] Medicine l Medicine Outpati ent Clinics 2020-01-03 2020-01-03 [facility] [id number] 10:59:00 10:59:00 t Elliott [employer] s - Drive [facility] Medicine l Medicine Outpati ent Clinics 2019-11-24 2019-11-24 [facility] [id number] 11:16:00 11:16:00 t [facility] [employer] [facility] Family Medicine l Medicine Outpati ent Clinics 2019-11-24 2019-11-24 [facility] [id number] 11:15:00 11:15:00 t [employer] s - Drive [facility] Family Medicine l Medicine Outpati ent Clinics 2019-11-11 2019-11-11 [facility] [id number] 09:41:00 09:41:00 [facility] [place] s - Road [facility] Medicine l Medicine Outpati ent Clinics 2019-11-10 2019-11-10 [facility] [id number] 10:30:00 10:30:00 [employer] s - Drive [facility] Family Medicine l Medicine Outpati ent Clinics 2019-03-27 2019-03-27 Emergency [facility] [id number] Gabriel 11:00:00 11:00:00 [facility] 2019-03-27 2019-03-27 Emergency [facility] [id number] 3 Gabriel 10:55:25 10:55:25 [facility] 2019-03-27 2019-03-27 Emergency [facility] [id number] 6 Gabriel 08:02:06 08:02:06 [facility] 2019-03-27 2019-03-27 Emergency [facility] [id number] 5 [place] 00:00:00 00:00:00 Health Results Test Description Test Time Test Comments Results Result Comments Source GLUBED 2020-07-17 17:26:00 Test Item Value Reference Range Interpretation Comme nts GLUBED (test code = GLUBED) 246 MG/DL 70-110 H Performed by certified 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 at [facility] [id number] 13:12:00 Test Item Value Reference Range Interpretation Comments GLUBED (test code = 233 MG/DL 70-110 H Performe d by certified GLUBED) 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 at [facility] [id number] 08:24:00 Test Item Value Reference Range Interpretation Comments GLUBED (test code = 157 MG/DL 70-110 H Performe d by certified GLUBED) 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 at [facility] [id number] 06:46:00 Test Item Value Reference Range Interpretation Comments GLUBED (test code = 159 MG/DL 70-110 H Performe d by certified GLUBED) 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 at [facility] [id number] 20:20:00 Test Item Value Reference Range Interpretation Comments GLUBED (test code = 174 MG/DL 70-110 H Performe d by certified GLUBED) 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 at [facility] [id number] 17:34:00 Test Item Value Reference Range Interpretation Comments GLUBED (test code = 101 MG/DL 70-110 N Performe d by certified GLUBED) 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 at [facility] [id number] 12:09:00 Test Item Value Reference Range Interpretation Comments GLUBED (test code = 176 MG/DL 70-110 H Performe d by certified GLUBED) 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 at [facility] BASIC METABOLIC [id number] 11:39:00 Test Item Value Reference Range Interpretation Comments SODIUM (test code = NA) 138 mEq/L 134-147 N POTASSIUM (test code = 4.5 mEq/L 3.4-5.0 N K) CHLORIDE (test code = 108 mEq/L 100-108 N CL) CARBON DIOXIDE (test 26 mEq/l 21-33 N code = CO2) ANION GAP (test code = 8 0-20 N GAP) GLUCOSE (test code = 180 mg/dL 70-110 H GLU) BLOOD UREA NITROGEN 30 mg/dL 7-18 H (test code = BUN) GLOMERULAR FILTRATION 38.8 90-95 L Units of measure = RATE (test code = GFR) ml/mi n/1.73 m2 CREATININE (test code = 1.8 mg/dL 0.6-1.3 H CREAT) CALCIUM (test code = 8.3 mg/dL 8.0-10.5 N CA) CBC W/AUTO [id number] 11:24:00 Test Item Value Reference Range Interpretation Comments WHITE BLOOD CELL (test code = 3.9 x10 3/uL 4.5-11.0 L WBC) RED BLOOD CELL (test code = 3.31 x10 6/uL 4.00-5.60 L RBC) HEMOGLOBIN (test code = HGB) 10.2 g/dL 12.5-16.9 L HEMATOCRIT (test code = HCT) 31.6 % 37.5-50.7 L MEAN CELL VOLUME (test code = 95.5 fL 81.0-99.0 N MCV) MEAN CELL HGB (test code = MCH) 30.8 pg 27.0-33.0 N MEAN CELL HGB CONCETRATION 32.3 g/dL 33.0-37.0 L (test code = MCHC) RED CELL DISTRIBUTION WIDTH CV 13.2 % 11.5-14.5 N (test code = RDW) RED CELL DISTRIBUTION WIDTH SD 46.3 fL 37.0-54.0 N (test code = RDW-SD) PLATELET COUNT (test code = 166 x10 3/uL 150-400 N PLT) MEAN PLATELET VOLUME (test code 11.2 fL 7.0-9.0 H = MPV) NEUTROPHIL % (test code = NT%) 58.2 % 56.0-77.0 N IMMATURE GRANULOCYTE % (test 1.3 % 0.0-2.0 N code = IG%) LYMPHOCYTE % (test code = LY%) 22.6 % 14.0-32.0 N MONOCYTE % (test code = MO%) 14.1 % 4.8-9.0 H EOSINOPHIL % (test code = EO%) 3.3 % 0.3-3.7 N BASOPHIL % (test code = BA%) 0.5 % 0.0-2.0 N NUCLEATED RBC % (test code = 0.0 % 0-0 N NRBC%) NEUTROPHIL # (test code = NT#) 2.26 x10 3/uL 2.0-7.6 N IMMATURE GRANULOCYTE # (test 0.05 x10 3/uL 0.00-0.03 H code = IG#) LYMPHOCYTE # (test code = LY#) 0.88 x10 3/uL 1.0-3.8 L MONOCYTE # (test code = MO#) 0.55 x10 3/uL 0.1-0.8 N EOSINOPHIL # (test code = EO#) 0.13 x10 3/uL 0.0-0.2 N BASOPHIL # (test code = BA#) 0.02 x10 3/uL 0.0-0.2 N NUCLEATED RBC # (test code = 0.00 x10 3/uL 0.0-0.1 N NRBC#) MANUAL DIFF REQUIRED (test code NO = MDIFF) [id number] 06:50:00 Test Item Value Reference Range Interpretation Comments GLUBED (test code = 192 MG/DL 70-110 H Performe d by certified GLUBED) 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 at [facility] [id number] 19:48:00 Test Item Value Reference Range Interpretation Comments GLUBED (test code = 187 MG/DL 70-110 H Performe d by certified GLUBED) 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 at [facility] [id number] 17:18:00 Test Item Value Reference Range Interpretation Comments GLUBED (test code = 128 MG/DL 70-110 H Performe d by certified GLUBED) 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 at [facility] C REACTIVE [id number] 13:50:00 Test Item Value Reference Range Interpretation Comments C REACTIVE PROTEIN (test code = CRP) 8.0 mg/L <10.0 N BASIC METABOLIC [id number] 13:50:00 Test Item Value Reference Range Interpretation Comments SODIUM (test code = NA) 138 mEq/L 134-147 N POTASSIUM (test code = 4.5 mEq/L 3.4-5.0 N K) CHLORIDE (test code = 107 mEq/L 100-108 N CL) CARBON DIOXIDE (test 27 mEq/l 21-33 N code = CO2) ANION GAP (test code = 9 0-20 N GAP) GLUCOSE (test code = 169 mg/dL 70-110 H GLU) BLOOD UREA NITROGEN 28 mg/dL 7-18 H (test code = BUN) GLOMERULAR FILTRATION 41.5 90-95 L Units of measure = RATE (test code = GFR) ml/mi n/1.73 m2 CREATININE (test code = 1.7 mg/dL 0.6-1.3 H CREAT) CALCIUM (test code = 8.7 mg/dL 8.0-10.5 N CA) CBC W/AUTO [id number] 13:19:00 Test Item Value Reference Range Interpretation Comments WHITE BLOOD CELL (test code = x10 3/uL 4.5-11.0 WBC) RED BLOOD CELL (test code = RBC) x10 6/uL 4.00-5.60 HEMOGLOBIN (test code = HGB) g/dL 12.5-16.9 HEMATOCRIT (test code = HCT) % 37.5-50.7 MEAN CELL VOLUME (test code = fL 81.0-99.0 MCV) MEAN CELL HGB (test code = MCH) pg 27.0-33.0 MEAN CELL HGB CONCETRATION (test g/dL 33.0-37.0 code = MCHC) RED CELL DISTRIBUTION WIDTH CV % 11.5-14.5 (test code = RDW) PLATELET COUNT (test code = PLT) 200 x10 3/uL 150-400 N NEUTROPHIL % (test code = NT%) % 56.0-77.0 LYMPHOCYTE % (test code = LY%) % 14.0-32.0 NEUTROPHIL # (test code = NT#) x10 3/uL 2.0-7.6 LYMPHOCYTE # (test code = LY#) x10 3/uL 1.0-3.8 MANUAL DIFF REQUIRED (test code = MDIFF) CBC W/AUTO [id number] 13:19:00 Test Item Value Reference Range Interpretation Comments WHITE BLOOD CELL (test code = 4.5 x10 3/uL 4.5-11.0 N WBC) RED BLOOD CELL (test code = 3.63 x10 6/uL 4.00-5.60 L RBC) HEMOGLOBIN (test code = HGB) 10.9 g/dL 12.5-16.9 L HEMATOCRIT (test code = HCT) 34.7 % 37.5-50.7 L MEAN CELL VOLUME (test code = 95.6 fL 81.0-99.0 N MCV) MEAN CELL HGB (test code = MCH) 30.0 pg 27.0-33.0 N MEAN CELL HGB CONCETRATION 31.4 g/dL 33.0-37.0 L (test code = MCHC) RED CELL DISTRIBUTION WIDTH CV 13.2 % 11.5-14.5 N (test code = RDW) RED CELL DISTRIBUTION WIDTH SD 45.6 fL 37.0-54.0 N (test code = RDW-SD) PLATELET COUNT (test code = 200 x10 3/uL 150-400 N PLT) MEAN PLATELET VOLUME (test code 11.2 fL 7.0-9.0 H = MPV) NEUTROPHIL % (test code = NT%) 69.5 % 56.0-77.0 N IMMATURE GRANULOCYTE % (test 1.3 % 0.0-2.0 N code = IG%) LYMPHOCYTE % (test code = LY%) 14.6 % 14.0-32.0 N MONOCYTE % (test code = MO%) 12.4 % 4.8-9.0 H EOSINOPHIL % (test code = EO%) 2.0 % 0.3-3.7 N BASOPHIL % (test code = BA%) 0.2 % 0.0-2.0 N NUCLEATED RBC % (test code = 0.0 % 0-0 N NRBC%) NEUTROPHIL # (test code = NT#) 3.15 x10 3/uL 2.0-7.6 N IMMATURE GRANULOCYTE # (test 0.06 x10 3/uL 0.00-0.03 H code = IG#) LYMPHOCYTE # (test code = LY#) 0.66 x10 3/uL 1.0-3.8 L MONOCYTE # (test code = MO#) 0.56 x10 3/uL 0.1-0.8 N EOSINOPHIL # (test code = EO#) 0.09 x10 3/uL 0.0-0.2 N BASOPHIL # (test code = BA#) 0.01 x10 3/uL 0.0-0.2 N NUCLEATED RBC # (test code = 0.00 x10 3/uL 0.0-0.1 N NRBC#) MANUAL DIFF REQUIRED (test code NO = MDIFF) [id number] 12:05:00 Test Item Value Reference Range Interpretation Comments GLUBED (test code = 209 MG/DL 70-110 H Performe d by certified GLUBED) 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 at [facility] [id number] 08:16:00 Test Item Value Reference Range Interpretation Comments GLUBED (test code = 208 MG/DL 70-110 H Performe d by certified GLUBED) 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 at [facility] [id number] 20:50:00 Test Item Value Reference Range Interpretation Comments GLUBED (test code = 232 MG/DL 70-110 H Performe d by certified GLUBED) 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 at [facility] [id number] 18:45:00 Test Item Value Reference Range Interpretation Comments GLUBED (test code = 146 MG/DL 70-110 H Performe d by certified GLUBED) 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 at [facility] - DUP LE ART [id number] 17:18:00 [facility] 1960 Sex: M Name: MARCOS RAMOS [facility] [place] : 1960 Age/S: 60 / M [address] [place] [address] Unit #: [id number] Loc: [place] [address] Phys: Mark Alexander SITE SUPERVISING TECHNICAL OPERATOR Acct: [id number] Dis Date: Status: ADM IN PHONE #: [phone] Exam Date: 07/14/20201654 FAX #: [phone] Reason: bilat foot uclers EXAMS: CPT CODE: [id number] DUP [place] ART ABHISHEK [address]43 Clinical Indication: Bilateral foot ulcers; Comparison: None TECHNIQUE: Bilateral lower extremity arterial Doppler evaluation without ABIs was performed with arce scale, color Doppler, and spectral Doppler evaluation. 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 FINDINGS: RIGHT LOWER EXTREMITY: INFORMATICS PHYSICIAN LIAISON: Patent, triphasic waveform. SFA: Patent, triphasic waveform. Popliteal: Patent, triphasic waveform. Posterior tibial: Patent, triphasic waveform. Dorsalis pedis: Patent, triphasic waveform. LEFT LOWER EXTREMITY: INFORMATICS PHYSICIAN LIAISON: Patent, triphasic waveform. SFA: Patent, biphasic waveform. Popliteal: Patent, triphasic waveform. Posterior tibial: Patent, biphasic waveform. Dorsalis pedis: Patent, triphasic waveform. IMPRESSION: Patent bilateral lower extremity arterial vasculature with multiphasic waveforms. SL: [id number] at 1718 Reported and signed by: Kuldeep Kuo M.D. PAGE 1 Signed Report (CONTINUED) Name: MARCOS RAMOS [facility] [place] : 1960 Age/S: 60 / M [address] [place] [address] Unit #:[id number] Loc: [place] [address] Phys: Mark Alexander SITE SUPERVISING TECHNICAL OPERATOR Acct: [id number] Dis Date: Status: ADM IN PHONE #: [phone] Exam Date: 07/14/20201654 FAX #: [phone] Reason: bilat foot uclers EXAMS: CPT CODE: [id number] DUP [place] ABHISHEK [address] <Continued> CC: Judah Campuzano MD; Mark Alexander NP Technologist: Sherin Hudson RDMS(AB) Trnscb Date/Time: 07/14/2020 (1717) [email or web address] Orig Print D/T: S: 07/14/2020 (1720) Probe: PAGE 2 Signed Report- DUP VEIN [id number] 17:03:00 [facility] 1960 Sex: M Name: MARCOS RAMOS [facility] : 1960 Age/S: 60 / M [address] [place] [address] Unit #: [id number] Loc: [place] [address] Phys: Jocelynn Mehta SITE SUPERVISING TECHNICAL OPERATORAbiC Acct: [id number] Dis Date: Status: ADM IN PHONE #: [phone] Exam Date: 07/14/20201654 FAX #: [phone] Reason: hx of DVT EXAMS: CPT CODE: [id number] DUP VEIN ABHISHEK [address]271 Clinical Indication: History of DVT, bilateral lower extremity pain; Comparison: None TECHNIQUE: Sonographic evaluation of the bilateral lower extremity veins was performed using high resolution B-mode imaging, along with pulse and color Doppler imaging. FINDINGS: Right lower extremity: Nonocclusive thrombus in the right popliteal vein. Common femoral, femoral, and posterior tibial veins are patent. Saphenofemoral junction is patent. Left lower extremity: Thrombus identified in the femoral vein and popliteal vein. Common femoral and posterior tibial veins are patent. Saphenofemoral junction is patent. IMPRESSION: Bilateral lower extremity DVT. Findings relayed to the patient's nurse Porfirio at 1702 hours on 07/14/2020. SL: [id number] at 1703 Reported and signed by: Kuldeep Kuo M.D. CC: Jocelynn Mehta; Judah Campuzano MD Technologist: MATHEUS Correia() Trnmeb Date/Time: 07/14/2020 (1702) [email or web address] Orig Print D/T: S: 07/14/2020 (170) Probe: PAGE 1 Signed [id number] 16:30:00 Test Item Value Reference Range Interpretation Comments D-DIMER (test 478 ng/mlFEU <=500 N THROMBOSIS AND /OR PULMONARY code = EMBOLISM AND TH E CLINICAL DDIMER) CUT- OFF VALUE FOR EXCLUSION (500 ng/mL FEU) OF THESE CONDITIONSIS VA LIDATED BY THE MANUFACTURE R OF THE METHOD. A NEGAT REINIER D-DIMER RESULT WHEN COM BINED WITH A CLINICALASSESSM ENT OF LOW PRETEST PROBABI LITY HAS BEEN SHOWN TO HAVEA HIGH NEGATIVE PREDICTIVE VALU E OF DVT OR PE. D-DIMER PADMAJA UES >500 ng/mL FEU ARE N OT DIAGNOSTIC FOR DVT, PEor D IC WITHOUT OTHER CONFIRMAT ORY TESTS AND APPROPRIATECLIN ICAL EUALUATIONS. - CTA CHEST FOR [id number] 16:24:00 [facility] 1960 Sex: M Name: MARCOS RAMOS [facility] [place] : 1960 Age/S: 60 / M [address] [place] [address] Unit #: [id number] Loc: [place] [address] Phys: Jocelynn Mehta NP-Jovanny Acct: [id number] Dis Date: Status: ADM IN PHONE #: [phone] Exam Date: 07/14/2020 1553 FAX #: [phone] Reason: rule out PE, Hx of PE EXAMS: CPT CODE: [id number] [place] [address] Clinical Indication: History of PE. Shortness of breath. Comparison: 11/19/2014. TECHNIQUE: Contiguous axial CT angiographic images of the chest were acquired following administration of 100 mL Isovue-300 IV contrast. Coronal and sagittal reconstructions were created. 3D MIP reformatted images were created. CT imaging performed at this location utilize s radiation dose optimization techniques which include one or more of the following: -Automated exposure control -Adjustment of the mA and/or kV according to patient size -Use of iterative reconstruction technique CT Radiation Dose DLP 806.3 mGy-cm FINDINGS: Pulmonary arteries are patent. Main pulmonary artery and thoracic aorta are normal caliber. Scattered atelectatic changes and calcified granulomata. No consolidation, pleural effusion, or pneumothorax. No groundglass opacities. Heart sizenormal. Moderate coronary artery calcifications. Calcified mediastinal and hilar lymph nodes. Visualized thyroid gland is unremarkable. Central airway is patent. Thickening of the mid esophagus. Partially imaged upper abdomen shows few calcified hepatic granulomata. Degenerative changes of the spine. IMPRESSION: 1. No CT angiographic evidence of acute pulmonary embolism. No chronic thrombotic changes. 2. Thickening of the mid esophagus, possibly esophagitis or underlying lesion. Correlate clinically. 3. Moderate coronary artery calcifications. 4. Evidence of prior granulomatous process. SL: [id number] PAGE 1 Signed Report (CONTINUED) Name: MARCOS RAMOS [facility] [place] : 1960 Age/S: 60 / M [address] [place] [address] Unit #: [id number] Loc: [place] [address] Phys: Jocelynn Mehta Acct: [id number] Dis Date: Status: ADM IN PHONE #: [phone] Exam Date: 07/14/2020 1553 FAX #: [phone] Reason: rule out PE, Hx of PE EXAMS: CPT CODE: [id number] [place] [address] <Continued> at 1624 Reported and signed by: Kuldeep Kuo M.D. CC: Jocelynn Mehta; Judah Campuzano MD Wilbert hnologist:RT Schuyler(R) CTDI: DLP: Trnscb Date/Time: 07/14/2020 (1623) [id number] Orig Print D/T: S: 07/14/2020 (0543) PAGE 2 Signed [id number] 15:20:00 Test Item Value Reference Range Interpretation Comments GLUBED (test code = 177 MG/DL 70-110 H Performe d by certified GLUBED) 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 at [facility] SED RATE [id number] 11:49:00 Test Item Value Reference Range Interpretation Comments SED RATE WESTERGREN (test code = 39 mm/hr 0-15 H SEDW) BASIC METABOLIC [id number] 11:18:00 Test Item Value Reference Range Interpretation Comments SODIUM (test code = NA) 137 mEq/L 134-147 N POTASSIUM (test code = 4.4 mEq/L 3.4-5.0 N K) CHLORIDE (test code = 105 mEq/L 100-108 N CL) CARBON DIOXIDE (test 26 mEq/l 21-33 N code = CO2) ANION GAP (test code = 10 0-20 N GAP) GLUCOSE (test code = 205 mg/dL 70-110 H GLU) BLOOD UREA NITROGEN 21 mg/dL 7-18 H (test code = BUN) GLOMERULAR FILTRATION 47.9 90-95 L Units of measure = RATE (test code = GFR) ml/mi n/1.73 m2 CREATININE (test code = 1.5 mg/dL 0.6-1.3 H CREAT) CALCIUM (test code = 8.6 mg/dL 8.0-10.5 N CA) [id number] 11:18:00 Test Item Value Reference Range Interpretation Comments MAGNESIUM (test code = MAG) 1.49 mg/dL 1.80-2.40 L [id number] 11:18:00 Test Item Value Reference Range Interpretation Comments TROPONIN-I 0.037 ng/mL 0.000-0.045 N Negative: <= (test code = 0.045 Positive: TROPI) >= 0.046 Correl ation with serial results, other cardiac markers andclin ical findings is necessary to determine the clinicalsignifi cance of this result. Results using different metho dologies should not be c omparedto one another as aaron titative results may masoud y by method. CBC W/AUTO [id number] 11:02:00 Test Item Value Reference Range Interpretation Comments WHITE BLOOD CELL (test code = 4.7 x10 3/uL 4.5-11.0 N WBC) RED BLOOD CELL (test code = 3.72 x10 6/uL 4.00-5.60 L RBC) HEMOGLOBIN (test code = HGB) 11.3 g/dL 12.5-16.9 L HEMATOCRIT (test code = HCT) 35.0 % 37.5-50.7 L MEAN CELL VOLUME (test code = 94.1 fL 81.0-99.0 N MCV) MEAN CELL HGB (test code = MCH) 30.4 pg 27.0-33.0 N MEAN CELL HGB CONCETRATION 32.3 g/dL 33.0-37.0 L (test code = MCHC) RED CELL DISTRIBUTION WIDTH CV 13.2 % 11.5-14.5 N (test code = RDW) RED CELL DISTRIBUTION WIDTH SD 45.1 fL 37.0-54.0 N (test code = RDW-SD) PLATELET COUNT (test code = 188 x10 3/uL 150-400 N PLT) MEAN PLATELET VOLUME (test code 10.8 fL 7.0-9.0 H = MPV) NEUTROPHIL % (test code = NT%) 47.5 % 56.0-77.0 L IMMATURE GRANULOCYTE % (test 1.1 % 0.0-2.0 N code = IG%) LYMPHOCYTE % (test code = LY%) 35.8 % 14.0-32.0 H MONOCYTE % (test code = MO%) 13.7 % 4.8-9.0 H EOSINOPHIL % (test code = EO%) 1.7 % 0.3-3.7 N BASOPHIL % (test code = BA%) 0.2 % 0.0-2.0 N NUCLEATED RBC % (test code = 0.0 % 0-0 N NRBC%) NEUTROPHIL # (test code = NT#) 2.21 x10 3/uL 2.0-7.6 N IMMATURE GRANULOCYTE # (test 0.05 x10 3/uL 0.00-0.03 H code = IG#) LYMPHOCYTE # (test code = LY#) 1.67 x10 3/uL 1.0-3.8 N MONOCYTE # (test code = MO#) 0.64 x10 3/uL 0.1-0.8 N EOSINOPHIL # (test code = EO#) 0.08 x10 3/uL 0.0-0.2 N BASOPHIL # (test code = BA#) 0.01 x10 3/uL 0.0-0.2 N NUCLEATED RBC # (test code = 0.00 x10 3/uL 0.0-0.1 N NRBC#) MANUAL DIFF REQUIRED (test code NO = MDIFF) CBC W/AUTO [id number] 11:01:00 Test Item Value Reference Range Interpretation Comments WHITE BLOOD CELL (test code = x10 3/uL 4.5-11.0 WBC) RED BLOOD CELL (test code = RBC) x10 6/uL 4.00-5.60 HEMOGLOBIN (test code = HGB) g/dL 12.5-16.9 HEMATOCRIT (test code = HCT) % 37.5-50.7 MEAN CELL VOLUME (test code = fL 81.0-99.0 MCV) MEAN CELL HGB (test code = MCH) pg 27.0-33.0 MEAN CELL HGB CONCETRATION (test g/dL 33.0-37.0 code = MCHC) RED CELL DISTRIBUTION WIDTH CV % 11.5-14.5 (test code = RDW) PLATELET COUNT (test code = PLT) 188 x10 3/uL 150-400 N NEUTROPHIL % (test code = NT%) % 56.0-77.0 LYMPHOCYTE % (test code = LY%) % 14.0-32.0 NEUTROPHIL # (test code = NT#) x10 3/uL 2.0-7.6 LYMPHOCYTE # (test code = LY#) x10 3/uL 1.0-3.8 MANUAL DIFF REQUIRED (test code = MDIFF) [id number] 10:08:00 Test Item Value Reference Range Interpretation Comments GLUBED (test code = 165 MG/DL 70-110 H Performe d by certified GLUBED) 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 at [facility] LACTIC ACID 2ND [id number] 21:31:00 Test Item Value Reference Range Interpretation Comments LACTIC ACID 2ND REPEAT (test code 1.9 mmol/L 0.4-1.9 N = LACT2) [id number] 21:04:00 Test Item Value Reference Range Interpretation Comments GLUBED (test code = 224 MG/DL 70-110 H Performe d by certified GLUBED) 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 at [facility] [id number] 19:23:00 Test Item Value Reference Range Interpretation Comments TROPONIN-I 0.045 ng/mL 0.000-0.045 N Negative: <= (test code = 0.045 Positive: TROPI) >= 0.046 Correl ation with serial results, other cardiac markers andclin ical findings is necessary to determine the clinicalsignifi cance of this result. Results using different metho dologies should not be c omparedto one another as aaron titative results may masoud y by method. [id number] 19:23:00 Test Item Value Reference Range Interpretation Comments HGBA1C% (test code = HGBA1C%) 11.2 %A1C 4.8-6.0 H LACTIC ACID [id number] 19:17:00 Test Item Value Reference Range Interpretation Comments LACTIC ACID REPEAT (test code = 2.3 mmol/l 0.4-1.9 H LACTR) UA RFLX MICR CULT IF [id number] 17:25:00 Test Item Value Reference Range Interpretation Comments UA COLOR (test code = COLU) YELLOW YEL/STRAW UA APPEARANCE (test code = CLOUDY CLEAR A APPU) UA GLUCOSE DIPSTICK (test code 3+ NEGATIVE A = DGLUU) UA BILIRUBIN DIPSTICK (test NEGATIVE NEGATIVE code = BILU) UA KETONE DIPSTICK (test code TRACE NEGATIVE A = KETU) UA SPECIFIC GRAVITY (test code 1.028 1.005-1.030 N = SGU) UA BLOOD DIPSTICK (test code = 1+ NEGATIVE A LUCIANA) UA PH DIPSTICK (test code = 5.0 5.0-7.0 N KEITH) UA PROTEIN DIPSTICK (test code 3+ NEGATIVE A = PROU) UA UROBILINIOGEN DIPSTICK 0.2 mg/dL 0.2-1.0 (test code = URO) UA NITRITE DIPSTICK (test code NEGATIVE NEGATIVE = ELVIN) UA LEUKOCYTE ESTERASE DIPSTICK NEGATIVE NEGATIVE (test code = LEUU) UA WBC (test code = WBCU) 4-9 WBC/HPF 0-3 A UA RBC (test code = RBCU) 4-10 RBC/HPF 0-3 UA WBC NO REFLEX (test code = 4-9 WBC/HPF 0-3 A WBCUCL) UA BACTERIA (test code = BACU) NONE SEEN /HPF NONE SEEN UA SQUAMOUS CELLS (test code = 0-5 /HPF NONE SEEN SQU) UA HYALINE CAST (test code = 11-20 /LPF NONE SEEN HYALU) UA MUCUS (test code = MUCU) 1+ /LPF NONE SEEN Indication for culture: RiskForSepsis-no oth srcSpecimen Description: CLEAN CATCHLIPOPROTEIN [id number] 17:03:00 Test Item Value Reference Range Interpretation Comments LIPOPROTEIN LDL 165.8 mg/dL 0-100 H <100 OPT [id number] (test code = LDL) NEAR OPTI MAL/ABOVE [id number] HIGH>YW=276 VE RY HIGH*Guidelines provided by the National Choles terol Education[employer]gra Adult Treatment Panel III BASIC METABOLIC [id number] 16:44:00 Test Item Value Reference Range Interpretation Comments SODIUM (test code = NA) 137 mEq/L 134-147 N POTASSIUM (test code = 4.3 mEq/L 3.4-5.0 N K) CHLORIDE (test code = 102 mEq/L 100-108 N CL) CARBON DIOXIDE (test 26 mEq/l 21-33 N code = CO2) ANION GAP (test code = 13 0-20 N GAP) GLUCOSE (test code = 283 mg/dL 70-110 H GLU) BLOOD UREA NITROGEN 28 mg/dL 7-18 H (test code = BUN) GLOMERULAR FILTRATION 36.5 90-95 L Units of measure = RATE (test code = GFR) ml/mi n/1.73 m2 CREATININE (test code = 1.9 mg/dL 0.6-1.3 H CREAT) CALCIUM (test code = 8.8 mg/dL 8.0-10.5 N CA) HEPATIC FUNCTION [id number] 16:44:00 Test Item Value Reference Range Interpretation Comments TOTAL PROTEIN (test code = PROT) 6.6 g/dL 6.4-8.2 N ALBUMIN (test code = ALB) 3.60 g/dL 3.4-5.0 N BILIRUBIN TOTAL (test code = 0.20 mg/dL 0.0-1.0 N BILT) BILIRUBIN DIRECT (test code = < 0.10 MG/DL 0.0-0.30 N BILD) BILIRUBIN INDIRECT (test code = 0.10 MG/DL BILIND) SGOT/AST (test code = AST) 22 IUnit/L 15-37 N SGPT/ALT (test code = ALT) 23 IUnit/L 30-65 L ALKALINE PHOSPHATASE TOTAL (test 121 IUnit/L 20-125 N code = ALKP) [id number] 16:44:00 Test Item Value Reference Range Interpretation Comments TROPONIN-I 0.048 ng/mL 0.000-0.045 H Negative: <= (test code = 0.045 Positive: TROPI) >= 0.046 Correl ation with serial results, other cardiac markers andclin ical findings is necessary to determine the clinicalsignifi cance of this result. Results using different metho dologies should not be c omparedto one another as aaron titative results may masoud y by method. BASIC METABOLIC [id number] 16:41:00 Test Item Value Reference Range Interpretation Comments SODIUM (test code = NA) mEq/L 134-147 POTASSIUM (test code = K) mEq/L 3.4-5.0 CHLORIDE (test code = CL) mEq/L 100-108 CARBON DIOXIDE (test code = CO2) mEq/l 21-33 ANION GAP (test code = GAP) 0-20 GLUCOSE (test code = GLU) mg/dL 70-110 BLOOD UREA NITROGEN (test code = BUN) mg/dL 7-18 GLOMERULAR FILTRATION RATE (test code 90-95 = GFR) CREATININE (test code = CREAT) mg/dL 0.6-1.3 CALCIUM (test code = CA) mg/dL 8.0-10.5 HEPATIC FUNCTION [id number] 16:41:00 Test Item Value Reference Range Interpretation Comments TOTAL PROTEIN (test code = PROT) g/dL 6.4-8.2 ALBUMIN (test code = ALB) g/dL 3.4-5.0 BILIRUBIN TOTAL (test code = BILT) mg/dL 0.0-1.0 BILIRUBIN DIRECT (test code = BILD) MG/DL 0.0-0.30 SGOT/AST (test code = AST) IUnit/L 15-37 SGPT/ALT (test code = ALT) IUnit/L 30-65 ALKALINE PHOSPHATASE TOTAL (test IUnit/L 20-125 code = ALKP) [id number] 16:41:00 Test Item Value Reference Range Interpretation Comments TROPONIN-I 0.048 ng/mL 0.000-0.045 H Negative: <= (test code = 0.045 Positive: TROPI) >= 0.046 Correl ation with serial results, other cardiac markers andclin ical findings is necessary to determine the clinicalsignifi cance of this result. Results using different metho dologies should not be c omparedto one another as aaron titative results may masoud y by method. LACTIC [id number] 16:39:00 Test Item Value Reference Range Interpretation Comments LACTIC ACID (test code = LACT) 2.6 mmol/L 0.4-1.9 H - XR CHEST 1 [id number] 16:34:00 [facility] Jovanny : 1960 Sex: M FAX: Buddy Guallpa [phone] [place]: St: ADM Name: MARCOS RAMOS [facility] : 1960 Age/S: 60/M [address] [place] [address] Unit #: [id number] Loc: [place] [address] Phys: Jaylene Pal NP Acct: [id number] Dis Date: Status: ADM IN PHONE #: [phone] Exam Date: 07/13/2020 1629 FAX #: [phone] Reason: sepsis EXAMS: CPT CODE: [id number] XR CHEST 1 V 40264 Portable single view AP chest INDICATION: Sepsis. Shortness of breath. Comparison: 11/20/2014 chest x-ray FINDINGS: The cardiomediastinal silhouette is normal in size. Faint right basilar pulmonary opacities are present and may be exaggerated by asymmetric elevation of the right hemidiaphragm crowding the bronchovascular markings. Remaining lungs are clear. Costophrenic angles are sharp. No suspicious osseous abnormality is seen. IMPRESSION: Suspected faint right basilar infiltrate. SL: LIZ at 9624 Reported and signed by: Festus Mejia M.D. CC: Buddy Pal NP Technologist: Meme Banerjee RT(R); RT Abimbola(R) Trnscrd Date/Time/By: 07/13/2020 (1586) : By: [email or web address] Orig Print D/T: S: 07/13/2020 (4820) PAGE 1 Signed ReportCBC W/AUTO [id number] 16:28:00 Test Item Value Reference Range Interpretation Comments WHITE BLOOD CELL (test code = 7.7 x10 3/uL 4.5-11.0 N WBC) RED BLOOD CELL (test code = 4.07 x10 6/uL 4.00-5.60 N RBC) HEMOGLOBIN (test code = HGB) 12.5 g/dL 12.5-16.9 N HEMATOCRIT (test code = HCT) 37.6 % 37.5-50.7 N MEAN CELL VOLUME (test code = 92.4 fL 81.0-99.0 N MCV) MEAN CELL HGB (test code = MCH) 30.7 pg 27.0-33.0 N MEAN CELL HGB CONCETRATION 33.2 g/dL 33.0-37.0 N (test code = MCHC) RED CELL DISTRIBUTION WIDTH CV 13.2 % 11.5-14.5 N (test code = RDW) RED CELL DISTRIBUTION WIDTH SD 44.7 fL 37.0-54.0 N (test code = RDW-SD) PLATELET COUNT (test code = 261 x10 3/uL 150-400 N PLT) MEAN PLATELET VOLUME (test code 11.2 fL 7.0-9.0 H = MPV) NEUTROPHIL % (test code = NT%) 65.3 % 56.0-77.0 N IMMATURE GRANULOCYTE % (test 1.4 % 0.0-2.0 N code = IG%) LYMPHOCYTE % (test code = LY%) 22.3 % 14.0-32.0 N MONOCYTE % (test code = MO%) 9.9 % 4.8-9.0 H EOSINOPHIL % (test code = EO%) 1.0 % 0.3-3.7 N BASOPHIL % (test code = BA%) 0.1 % 0.0-2.0 N NUCLEATED RBC % (test code = 0.0 % 0-0 N NRBC%) NEUTROPHIL # (test code = NT#) 5.03 x10 3/uL 2.0-7.6 N IMMATURE GRANULOCYTE # (test 0.11 x10 3/uL 0.00-0.03 H code = IG#) LYMPHOCYTE # (test code = LY#) 1.72 x10 3/uL 1.0-3.8 N MONOCYTE # (test code = MO#) 0.76 x10 3/uL 0.1-0.8 N EOSINOPHIL # (test code = EO#) 0.08 x10 3/uL 0.0-0.2 N BASOPHIL # (test code = BA#) 0.01 x10 3/uL 0.0-0.2 N NUCLEATED RBC # (test code = 0.00 x10 3/uL 0.0-0.1 N NRBC#) MANUAL DIFF REQUIRED (test code NO = MDIFF) CBC W/AUTO [id number] 16:27:00 Test Item Value Reference Range Interpretation Comments WHITE BLOOD CELL (test code = x10 3/uL 4.5-11.0 WBC) RED BLOOD CELL (test code = RBC) x10 6/uL 4.00-5.60 HEMOGLOBIN (test code = HGB) 12.5 g/dL 12.5-16.9 N HEMATOCRIT (test code = HCT) 37.6 % 37.5-50.7 N MEAN CELL VOLUME (test code = fL 81.0-99.0 MCV) MEAN CELL HGB (test code = MCH) pg 27.0-33.0 MEAN CELL HGB CONCETRATION (test g/dL 33.0-37.0 code = MCHC) RED CELL DISTRIBUTION WIDTH CV % 11.5-14.5 (test code = RDW) PLATELET COUNT (test code = PLT) 261 x10 3/uL 150-400 N NEUTROPHIL % (test code = NT%) % 56.0-77.0 LYMPHOCYTE % (test code = LY%) % 14.0-32.0 NEUTROPHIL # (test code = NT#) x10 3/uL 2.0-7.6 LYMPHOCYTE # (test code = LY#) x10 3/uL 1.0-3.8 MANUAL DIFF REQUIRED (test code = MDIFF)
[2020-12-02 19:56] LABS: Absolute Lymphocytes (CBC) 0.8 K/uL (0.7-4.9); Basophils % 0.2 % (0-1.3); Hematocrit 26.9 % (39.6-49.0); Lymphocytes % 13.7 % (15.3-44.8); MPV 8.7 fL (7.6-11.3); RBC Red Blood Cell Count 3.07 M/uL (4.33-5.43)
[2020-12-02 20:06] LABS: Protime INR 1.29
[2020-12-02 20:21] LABS: ALT/SGPT 17 U/L (12-78); AST/SGOT 12 U/L (15-37); Albumin 2.5 g/dL (3.4-5.0); Alkaline Phosphatase 124 U/L (45-117); BUN Blood Urea Nitrogen 44 mg/dL (7-18); Bicarbonate 26 mmol/L (21-32); Bilirubin Direct < 0.1 mg/dL (0-0.2); Bilirubin Total 0.2 mg/dL (0.2-1.0); Glucose Level 170 mg/dL (74-106); Magnesium 1.5 mg/dL (1.8-2.4); NT PRO-BNP 1579 pg/mL (<125); Protein, Total 7.6 g/dL (6.4-8.2); Sodium Level 133 mmol/L (136-145); Troponin (Emerg Dept Use Only) < 0.02 ng/mL (0.0-0.045)
[2020-12-02 20:24] LABS: Potassium 5.9 mmol/L (3.5-5.1)
--- NOTE | 2020-12-02 20:46 | RAD REPORT ---
EXAM DESCRIPTION: RAD - Chest Single View - 12/02/2020 7:59 pm CLINICAL HISTORY: CHEST PAIN COMPARISON: April 2020 TECHNIQUE: AP portable chest image was obtained 12/02/2020 7:59 pm . FINDINGS: Lung volumes are low accentuating heart, vasculature and lung markings. No peripheral mass consolidation. No significant failure or volume overload. Heart and vasculature are normal. No measu rable pleural effusion and no pneumothorax. No acute bony abnormality seen. No acute aortic findings suspected. IMPRESSION: No acute cardiopulmonary process. No significant change from comparison study.
--- NOTE | 2020-12-02 20:49 | RAD REPORT ---
EXAM DESCRIPTION: RAD - Foot Left 3 View - 12/02/2020 7:59 pm CLINICAL HISTORY: SWELLING COMPARISON: Foot Left 3 View dated 03/05/2020; Foot Left 3 View dated 12/01/2019 FINDINGS: Significant soft tissue swelling surrounds the second toe. Fracture changes are present in volving the second proximal phalanx distal shaft and head. The second middle and distal phalanges are intact. Third- fifth toes are intact. Chronic postsurgical change to the distal fifth metatarsal. Fi rst toe has been resected. No air or foreign body in the soft tissues. Soft tissue swelling is present. IMPRESSION: Fracture of the left second proximal phalanx suspected to be osteomyelitis pathologic fr acture. Significant soft tissue swelling is present around the second toe. Overall significant soft tissue swelling of the left ankle and foot. No air or foreign body in the so ft tissues.
--- NOTE | 2020-12-02 21:13 | EDPHYS ---
Physician Documentation [facility] Name: Gasper Fry Age: 60 yrs Sex: Male : 1960 Arrival Date: 12/02/2020 Time: 19:02 Bed 20 Private MD: ED Physician Otto Burgos HPI: 12/02 19:15 This 60 yrs old Male presents to ER via Wheelchair with complaints of Leg mh7 Pain, Leg Swelling, Chest Pain. 19:15 The patient or guardian reports chest pain that is located primarily in the substernal mh7 area. Onset: 2 day(s) ago. 19:15 The pain does not radiate. mh7 21:04 Associated signs and symptoms: Pertinent positives: lower extremity pain, lower mh7 extremity swelling, shortness of breath, Pertinent negatives: abdominal pain, cough, diaphoresis, dizziness, headache, lightheadedness, nausea, near syncope, palpitations, recent travel, syncope, vomiting. The chest pain is described as a heaviness. Duration: The patient or guardian reports multiple episodes, that are intermittent, that wax and wane. Modifying factors: The symptoms are alleviated by nothing. the symptoms are aggravated by nothing. Severity of pain: At its worst the pain was moderate last night, in the emergency department the pain has improved moderately. Also complains of left foot wound drainage and odor, left leg pain and swelling over the past 4-5 days.. Historical: - Allergies: 19:12 Haldol (Anaphylaxis); ll1 19:12 Narcan (Anaphylaxis); ll1 - PMHx: 19:12 ADD/ADHD; Bipolar disorder; Diabetes - IDDM; CVA; Chronic pain; Cellulitis; Anxiety; ll1 neuropathy; Hypertension; Seizures; - Immunization history:: Flu vaccine is up to date. - Social history:: Smoking status: Patient reports the use of cigarette tobacco products, denies chronic smoking, but will smoke occasionally. ROS: 21:04 Constitutional: Negative for fever, chills, and weight loss, Eyes: Negative for injury, mh7 pain, redness, and discharge, ENT: Negative for injury, pain, and discharge, Neck: Negative for injury, pain, and swelling, Abdomen/GI: Negative for abdominal pain, nausea, vomiting, diarrhea, and constipation, Back: Negative for injury and pain, : Negative for injury, bleeding, discharge, and swelling, Neuro: Negative for headache, weakness, numbness, tingling, and seizure, Psych: Negative for depression, anxiety, suicide ideation, homicidal ideation, and hallucinations, Allergy/Immunology: Negative for hives, rash, and allergies, Endocrine: Negative for neck swelling, polydipsia, polyuria, polyphagia, and marked weight changes, Hematologic/Lymphatic: Negative for swollen nodes, abnormal bleeding, and unusual bruising. Exam: 21:04 Constitutional: This is a well developed, well nourished patient who is awake, alert, mh7 and in no acute distress. Head/Face: Normocephalic, atraumatic. Eyes: Pupils equal round and reactive to light, extra-ocular motions intact. Lids and lashes normal. Conjunctiva and sclera are non-icteric and not injected. Cornea within normal limits. Periorbital areas with no swelling, redness, or edema. Neck: Trachea midline, no thyromegaly or masses palpated, and no cervical lymphadenopathy. Supple, full range of motion without nuchal rigidity, or vertebral point tenderness. No Meningismus. Chest/axilla: Normal chest wall appearance and motion. Nontender with no deformity. No lesions are appreciated. Cardiovascular: Regular rate and rhythm with a normal S1 and S2. No gallops, murmurs, or rubs. Normal PMI, no JVD. No pulse deficits. 21:04 Abdomen/GI: Soft, non-tender, with normal bowel sounds. No distension or tympany. No guarding or rebound. No evidence of tenderness throughout. Back: No spinal tenderness. No costovertebral tenderness. Full range of motion. 21:04 Skin: Warm, dry with normal turgor. Normal color with no rashes, no lesions, and no evidence of cellulitis. Neuro: Awake and alert, GCS 15, oriented to person, place, time, and situation. Cranial nerves II-XII grossly intact. Motor strength 5/5 in all extremities. Sensory grossly intact. Cerebellar exam normal. Normal gait. Psych: Awake, alert, with orientation to person, place and time. Behavior, mood, and affect are within normal limits. 21:04 Respiratory: the patient does not display signs of respiratory distress, Respirations: normal, Breath sounds: rhonchi, that are mild, are scattered, Respiratory rate: 18 21:04 Musculoskeletal/extremity: Extremities: noted in the left foot: swelling, wound on 2 nd toe with granulation tissue, no erythema, discharge, or swelling., noted in the left leg: swelling, ROM: intact in all extremities, Circulation is intact in all extremities. Sensation intact. Compartment Syndrome exam of affected extremity: is normal. no numbness, no tingling, no sensation deficit, no palor, no weak pulses, Joints: All joints appear normal with full range of motion. Vital Signs: 19:09 BP 164 / 79; Pulse 86; Resp 18; Temp 98.7; Pulse Ox 99% ; Weight 99.79 kg; Height 6 ft. ll1 0 in. (182.88 cm); Pain 8/10; 21:00 BP 178 / 109; Pulse 82; Resp 16; Pulse Ox 100% on R/A; jm8 22:05 BP 167 / 96; Pulse 80; Resp 16; Pulse Ox 100% on R/A; jm8 23:11 BP 150 / 80; Pulse 76; Resp 16; Pulse Ox 99% on R/A; jm8 19:09 Body Mass Index 29.84 (99.79 kg, 182.88 cm) ll1 MDM: 21:04 Differential diagnosis: abnormal EKG, acute myocardial infarction, acute pericarditis, mh7 anxiety, coronary artery disease chest wall pain, congestive heart failure costochondritis, myocarditis, pneumonia, cellulitis, DVT, Osteomyelitis. HEART Score: History: Moderately Suspicious (1), ECG: Non specific repolarization disturbance / LBTB / PM (1), Age: > 45 and < 65 years (1), Risk Factors: 1 or 2 risk factors (1), [Hypertension] [DM] Troponin: < or = 1 x Normal Limit (0), Total Score = 4. Data reviewed: vital signs, nurses notes, lab test result(s), cardiac enzymes, CBC, electrolytes, EKG, radiologic studies, plain films. Data interpreted: Pulse oximetry: on room air is 99 %. Interpretation: normal. Counseling: I had a detailed discussion with the patient and/or guardian regarding: the historical points, exam findings, and any diagnostic results supporting the discharge/admit diagnosis, the presence of at least one elevated blood pressure reading (>120/80) during this emergency department visit, lab results, radiology results, the need for further work-up and treatment in the hospital. Response to treatment: the patient's symptoms have mildly improved after treatment. 21:12 Patient medically screened. [facility] 12/02 19:29 Order name: Basic Metabolic Panel [facility] 12/02 19:29 Order name: CBC with Diff [facility] 12/02 19:29 Order name: LFT's [facility] 12/02 19:29 Order name: Magnesium; Complete Time: 20:26 [facility] 12/02 19:29 Order name: NT PRO-BNP; Complete Time: 20:26 [facility] 12/02 19:29 Order name: PT-INR; Complete Time: 20:17 [facility] 12/02 19:29 Order name: Troponin (emerg Dept Use Only); Complete Time: 20:26 [facility] 12/02 19:29 Order name: Blood Culture Adult (2) [facility] 12/02 19:29 Order name: Lactate; Complete Time: 20:17 [facility] 12/02 19:29 Order name: Basic Metabolic Panel; Complete Time: 20:26 [facility] 12/02 19:29 Order name: CBC with Automated Diff; Complete Time: 20:17 [facility] 12/02 19:29 Order name: Liver (Hepatic) Function; Complete Time: 20:26 [facility] 12/02 21:20 Order name: COVID-19 : Document "Date of Symptom Onset" if Symptomatic. [facility] 12/02 21:47 Order name: CORONAVIRUS [facility] 12/02 19:29 Order name: XRAY Chest (1 view); Complete Time: 21:01 [facility] 12/02 19:29 Order name: EKG; Complete Time: 19:32 [facility] 12/02 19:29 Order name: Cardiac monitoring; Complete Time: 19:41 [facility] 12/02 19:29 Order name: EKG - Nurse/Tech; Complete Time: 19:41 [facility] 12/02 19:29 Order name: IV Saline Lock; Complete Time: 19:45 [facility] 12/02 19:29 Order name: Foot Left 3 View XRAY; Complete Time: 21:01 [facility] 12/02 19:29 Order name: US Extremity Venous Unilateral Ltd [facility] 12/02 22:02 Order name: Urine Dipstick-Ancillary [facility] 12/02 22:54 Order name: SARS-COV-2 RT PCR [facility] 12/02 19:29 Order name: Labs collected and sent; Complete Time: 19:45 [facility] 12/02 19:29 Order name: O2 Per Protocol; Complete Time: 19:45 7 12/02 19:29 Order name: O2 Sat Monitoring; Complete Time: 19:45 [facility] 12/02 19:29 Order name: Urine Dipstick-Ancillary (obtain specimen); Complete Time: 22:14 mh7 Administered Medications: 21:32 Drug: Insulin Regular Human 5 units {Co-Signature: ca1 (Angelica Hood RN).} Route: IVP; 8 Site: right antecubital; 23:12 Follow up: Response: No adverse reaction 8 21:33 Drug: D50W 50 ml Route: IVP; Site: right antecubital; jm8 23:13 Follow up: Response: No adverse reaction 8 21:34 Drug: Calcium Chloride 1 grams Route: IVP; Site: right antecubital; jm8 23:13 Follow up: Response: No adverse reaction 8 21:34 Drug: Kayexalate (polystyrene) 15 grams Route: PO; jm8 23:12 Follow up: Response: No adverse reaction jm8 21:41 Drug: morphine 4 mg Route: IVP; Site: right antecubital; jm8 23:12 Follow up: Response: No adverse reaction jm8 21:41 Drug: Zofran (Ondansetron) 4 mg Route: IVP; Site: right antecubital; jm8 23:12 Follow up: Response: No adverse reaction 8 22:34 Drug: Sodium Bicarbonate 1 amp Route: IVP; Site: right antecubital; jm8 23:12 Follow up: Response: No adverse reaction [facility] Disposition: 12/02/20 21:12 Hospitalization ordered by Polo Ignacio for Inpatient Admission. Preliminary diagnosis are Chest pain, unspecified, Hyperkalemia, Leg pain, Leg Swelling. - Bed requested for Telemetry/MedSurg (Inpatient). - Status is Inpatient Admission. jm8 - Condition is Stable. - Problem is new. - Symptoms have improved. Signatures: Dispatcher [employer] EDMS Manny Almanza FNP-C ENERGY RATER-Cla1 Abena Arguelles 2 Keira Roy RN RN ll1 Otto Burgos MD MD 7 Chelsey Rush RN RN rd1 Emmanuel Grande RN RN jm8 Angelica Hood RN ca1 Corrections: (The following items were deleted from the chart) 22:15 21:12 Hospitalization Ordered by PoloCarlos CARRERA for Inpatient Admission. Preliminary rd1 diagnosis is Chest pain, unspecified; Hyperkalemia; Leg pain, Leg Swelling. Bed requested for Telemetry/MedSurg (Inpatient). Status is Inpatient Admission. Condition is Stable. Problem is new. Symptoms have improved. mh7 22:33 22:15 12/02/2020 21:12 Hospitalization Ordered by PoloCarlos CARRERA for Inpatient mw2 Admission. Preliminary diagnosis is Chest pain, unspecified; Hyperkalemia; Leg pain, Leg Swelling. Bed requested for Telemetry/MedSurg (Inpatient). Status is Inpatient Admission. Condition is Stable. Problem is new. Symptoms have improved. rd1 22:56 22:33 12/02/2020 21:12 [facility] mw2 Admission. Preliminary diagnosis is Chest pain, unspecified; Hyperkalemia; Leg pain, Leg Swelling. Bed requested for Telemetry/MedSurg (Inpatient). Status is Inpatient Admission. Condition is Stable. Problem is new. Symptoms have improved. mw2 23:50 22:56 12/02/2020 21:12 [facility]patient jm8 Admission. Preliminary diagnosis is Chest pain, unspecified; Hyperkalemia; Leg pain, Leg Swelling. Bed requested for Telemetry/MedSurg (Inpatient). Status is Inpatient Admission. Condition is Stable. Problem is new. Symptoms have improved. mw2
--- NOTE | 2020-12-02 21:13 | ER ---
Nurse's Notes [facility] Name: Gasper Fry Age: 60 yrs Sex: Male : 1960 Arrival Date: 12/02/2020 Time: 19:02 Bed 20 Private MD: Diagnosis: Chest pain, unspecified;Hyperkalemia;Leg pain, Leg Swelling Presentation: 12/02 19:09 Chief complaint: Patient states: 1. L leg pain, swelling, foul odor for 2-3 days. No ll1 fever. 2. HTN and CP for 4 days. Coronavirus screen: Client denies travel out of the [place] in the last 14 days. At this time, the client does not indicate any symptoms associated with coronavirus-19. Ebola Screen: Patient denies travel to an Ebola-affected area in the 21 days before illness onset. Initial Sepsis Screen: Does the patient meet any 2 criteria? No. Patient's initial sepsis screen is negative. Does the patient have a suspected source of infection? Yes: Skin breakdown/wound. Risk Assessment: Do you want to hurt yourself or someone else? Patient reports no desire to harm self or others. Onset of symptoms was November 29, 2020. 19:09 Method Of Arrival: Wheelchair ll1 19:09 Acuity: DARREL 3 ll1 Historical: - Allergies: 19:12 Haldol (Anaphylaxis); ll1 19:12 Narcan (Anaphylaxis); ll1 - PMHx: 19:12 ADD/ADHD; Bipolar disorder; Diabetes - IDDM; CVA; Chronic pain; Cellulitis; Anxiety; ll1 neuropathy; Hypertension; Seizures; - Immunization history:: Flu vaccine is up to date. - Social history:: Smoking status: Patient reports the use of cigarette tobacco products, denies chronic smoking, but will smoke occasionally. Screenin:14 Abuse screen: Denies threats or abuse. Denies injuries from another. Nutritional jm8 screening: No deficits noted. Tuberculosis screening: No symptoms or risk factors identified. Fall Risk None identified. Assessment: 19:24 General: Appears in no apparent distress. comfortable, Behavior is calm, cooperative, jm8 appropriate for age. Pain: Complains of pain in chest and left foot Pain does not radiate. Pain currently is 8 out of 10 on a pain scale. Pain began weeks ago. Neuro: No deficits noted. Level of Consciousness is awake, alert, obeys commands, Oriented to person, place, time. Cardiovascular: Reports chest pain, Patient's skin is warm and dry. Chest pain is denied. Respiratory: No deficits noted. Respiratory: Airway is patent Trachea midline Respiratory effort is even, unlabored, Respiratory pattern is regular, symmetrical. GI: No deficits noted. No signs and/or symptoms were reported involving the gastrointestinal system. : No deficits noted. No signs and/or symptoms were reported regarding the genitourinary system. EENT: No deficits noted. No signs and/or symptoms were reported regarding the EENT system. Derm: Reports pain tingling, in left foot. Musculoskeletal: No deficits noted. No signs and/or symptoms reported regarding the musculoskeletal system. 19:51 Cardiovascular: Rhythm is sinus rhythm. [facility] Vital Signs: 19:09 BP 164 / 79; Pulse 86; Resp 18; Temp 98.7; Pulse Ox 99% ; Weight 99.79 kg; Height 6 ft. 1 0 in. (182.88 cm); Pain 8/10; 21:00 BP 178 / 109; Pulse 82; Resp 16; Pulse Ox 100% on R/A; 8 22:05 BP 167 / 96; Pulse 80; Resp 16; Pulse Ox 100% on R/A; 8 23:11 BP 150 / 80; Pulse 76; Resp 16; Pulse Ox 99% on R/A; 8 19:09 Body Mass Index 29.84 (99.79 kg, 182.88 cm) ll1 ED Course: 19:02 Patient arrived in ED. bp1 19:04 Otto Burgos MD is Attending Physician. 7 19:09 Arm band placed on Patient placed in an exam room, on a stretcher. ll1 19:11 Triage completed. ll1 19:14 Patient has correct armband on for positive identification. Bed in low position. Call [facility] light in reach. Side rails up X2. Pulse ox on. NIBP on. 19:28 Patient maintains SpO2 saturation greater than 95% on room air. 8 19:40 Warm blanket given. 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 5 19:41 EKG done, by ED staff, reviewed by Otto Burgos MD. 5 19:46 Inserted saline lock: 20 gauge in left antecubital area, using aseptic technique. jm8 19:59 Foot Left 3 View XRAY In Process Unspecified. EDMS 19:59 XRAY Chest (1 view) In Process Unspecified. EDMS 21:11 Polo Ignacio DO is Hospitalizing Provider. [facility] 23:49 No provider procedures requiring assistance completed. Patient admitted, IV remains in [address] place. Administered Medications: 21:32 Drug: Insulin Regular Human 5 units {Co-Signature: ca1 (Angelica Hood RN).} Route: IVP; 8 Site: right antecubital; 23:12 Follow up: Response: No adverse reaction 8 21:33 Drug: D50W 50 ml Route: IVP; Site: right antecubital; jm8 23:13 Follow up: Response: No adverse reaction [facility] 21:34 Drug: Calcium Chloride 1 grams Route: IVP; Site: right antecubital; jm8 23:13 Follow up: Response: No adverse reaction [facility] 21:34 Drug: Kayexalate (polystyrene) 15 grams Route: PO; jm8 23:12 Follow up: Response: No adverse reaction 8 21:41 Drug: morphine 4 mg Route: IVP; Site: right antecubital; jm8 23:12 Follow up: Response: No adverse reaction jm8 21:41 Drug: Zofran (Ondansetron) 4 mg Route: IVP; Site: right antecubital; jm8 23:12 Follow up: Response: No adverse reaction 8 22:34 Drug: Sodium Bicarbonate 1 amp Route: IVP; Site: right antecubital; jm8 23:12 Follow up: Response: No adverse reaction [facility] Outcome: 21:12 Decision to Hospitalize by Provider. [facility] 23:49 Admitted to Med/surg accompanied by tech, via wheelchair, Report called to Nick TORIBIO 8 23:49 Condition: good 23:49 Instructed on the need for admit. 23:50 Patient left the ED. [facility] Signatures: Dispatcher [employer] Lucina [place] 5 Keira Roy, RN RN ll1 Arabella Zurita Maurice, MD MD mh7 Emmanuel Grande RN RN jm8 Angelica Hood RN ca1 Corrections: (The following items were deleted from the chart) 22:06 21:41 BP 178 / 109; Pulse 82bpm; Resp 16bpm; Pulse Ox 100% RA; jm8 jm8
--- NOTE | 2020-12-02 21:36 | P.HP ---
Certification for Inpatient Patient admitted to: Inpatient With expected LOS: >2 Midnights Patient will require the following post-hospital care: None Practitioner: I am a practitioner with admitting privileges, knowledge of patient current condition, hospital course, and medical plan of care. Services: Services provided to patient in accordance with Admission requirements found in Title 42 Section 412.3 of the Code of Federal Regulations Patient History Date of Service: 12/02/20 Primary Care Provider: Joel presley Reason for admission: Acute renal failure, hyperkalemia, osteomyelitis History of Present Illness: 60-year-old male history of diabetes mellitus type 2, CKD 3, multiple bouts of osteomyelitis, schizophrenia/bipolar disorder hypertension history of CVA and PAD presents emergency department for left lower extremity pain, swelling, worsening of chronic wound to left 2nd toe. Patient evaluated in the emergency department, labs significant for hemoglobin 9.3 hematocrit 46.9 potassium 5.9 sodium 133 BUN 44 creatinine 2.27 GFR 30 glucose 170 magnesium 1.5 BNP 1579 lactic acid 0.9 chest x-ray unremarkable x-ray of left foot suggest possible pathological fracture related to osteomyelitis of the left 2nd toe. 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 Patient very poor historian. ED provider wishes to admit for acute kidney injury superimposed on CKD, hyperkalemia, suspected osteomyelitis. Allergies haloperidol [From Haldol] Allergy (Verified 12/11/18 20:38) Anaphylaxis naloxone [From Narcan] Allergy (Verified 12/11/18 20:38) Anaphylaxis Home Medications: Apixaban [Eliquis] 1 tab PO BID 12/01/19 Divalproex Sodium [Depakote] 3 tab PO BEDTIME 12/01/19 Hydrocodone 10/APAP 325 [[place] 10/325*] 1 tab PO BID 12/01/19 Losartan Potassium [Cozaar*] 1 tab PO DAILY 12/01/19 Metoprolol Tartrate [Lopressor*] 1 tab PO BID 12/01/19 Risperidone 1 tab PO DAILY 12/01/19 Tramadol HCl [Ultram] 1 tab PO BID 12/01/19 clonazePAM [Klonopin*] 1 tab PO BID 12/01/19 Atorvastatin Calcium [Lipitor] 40 mg PO DAILY 03/05/20 Dextroamphetamine/Amphetamine [Dextroamp-Amphetamin 30 mg Tab] 1 tab PO BID 03/05/20 - Past Medical/Surgical History Diabetic: Yes -: Diabetes mellitus type 2, insulin-dependent -: Hypertension -: Seizure disorder -: Peripheral vascular disease -: History of osteomyelitis -: Hyperlipidemia -: Bipolar disorder -: Tobacco abuse -: schizophrenia -: History of amputation to the left great toe -: History of blood clots -: seizures -: Neck and back surgery -: Right eye removal -: Right knee surgery -: Bilateral wrist surgery due to suicide attempt -: Left great toe amputation Psychosocial/ Personal History: Patient is . He has 2 children. He lives at home. - Family History Brother -: Hypertension Sister -: Diabetes Father -: Heart disease Notes: heart attack Mother -: Diabetes - Social History Smoking Status: Current some day smoker Alcohol use: No CD- Drugs: No Caffeine use: Yes Place of Residence: Home Review of Systems 10-point ROS is otherwise unremarkable Respiratory: Shortness of Breath Cardiovascular: Chest Pain Musculoskeletal: Leg Pain, Foot Pain, Other (Chronic wound left 2nd digit) Physical Examination - Physical Exam General: Alert, In no apparent distress, Oriented x3 HEENT: Atraumatic, PERRLA, Mucous membr. moist/pink Neck: Supple, 2+ carotid pulse no bruit, No LAD Respiratory: Clear to auscultation bilaterally, Normal air movement Cardiovascular: Regular rate/rhythm, Normal S1 S2 Capillary refill: <2 Seconds Gastrointestinal: Normal bowel sounds, No tenderness Musculoskeletal: No tenderness Integumentary: Diabetic ulcer (Significant diabetic ulceration to the dorsum of the left 2nd toe) Neurological: Normal speech, Normal strength at 5/5 x4 extr, Normal tone, Normal affect - Studies Laboratory Data (last 24 hrs) 12/02/20 19:42: PT 14.9 H, INR 1.29 12/02/20 19:42: WBC 5.80, Hgb 9.3 L, Hct 26.9 L, Plt Count 304 12/02/20 19:42: Sodium 133 L, Potassium 5.9 H*, BUN 44 H, Creatinine 2.27 H, Glucose 170 H, Magnesium 1.5 L, Total Bilirubin 0.2, AST 12 L, ALT 17, Alkaline Phosphatase 124 H Assessment and Plan - Plan Assessment Acute kidney injury superimposed on CKD 3 with hyperkalemia Chest pain rule out ACS Diabetic ulceration with suspected osteomyelitis of the left 2nd toe Acute on chronic DVT left lower extremity noncompliant with anti coagulation therapy Diabetes mellitus type 2-insulin dependent Depression with anxiety/BPD/schizophrenia GERD Hypertension Anemia of chronic disease History of CVA Hyperlipidemia PAD Plan Acute kidney injury superimposed on CKD 3 with hyperkalemia: Patient given potassium cocktail in the emergency department, will continue gentle hydration, nephrology consulted for additional assistance. Renal ultrasound, CPK, uric acid levels ordered. Continue Eliquis for DVT prophylaxis. Repeat chemistries with morning labs. Chest pain rule out ACS: Trend troponins, monitor on telemetry, continue home medications, cardiology consulted. Diabetic ulceration with suspected osteomyelitis of the left 2nd toe: Will obtain MRI, Infectious Disease consult to continue with vancomycin/cefepime at this time. Wound culture, blood cultures ordered. Patient with multiple amputation/bouts of osteomyelitis in the past with significant medical noncompliance. Patient very poor historian, not sure when he had his last antibiotics or what they were. 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 Acute on chronic DVT left lower extremity noncompliant with anti coagulation therapy: Patient is prescribed Eliquis 5 mg p.o. b.i.d., reports that he is not compliant with this medication only taking it easy daily or every other day depending on how he is feeling, sometimes less than this. Will continue with Eliquis 5 mg p.o. b.i.d. and emphasized importance of taking this medication. Patient also reports history of PE, is with some chest pain at this time. Will continue with full anticoagulation. Patient without hypotension or hypoxia at this time. Consider V/Q scan. Diabetes mellitus type 2-insulin dependent: A.c. HS Accu-Cheks, sliding scale insulin therapy. A1c with morning labs Depression with anxiety/BPD/schizophrenia: Continue medications GERD: Continue medications Hypertension: Continue home meds adjust as necessary Anemia chronic disease: Stable, will monitor daily labs. Transfuse to maintain hemoglobin greater than 7.5. History of CVA: Continue home meds Hyperlipidemia: Continue home meds PAD: Appears to be stable this time. Discharge Plan: Home Plan to discharge in: Greater than 2 days - Advance Directives Does patient have a Living Will: Yes Does patient have a Durable POA for Healthcare: Yes - Code Status/Comfort Care Code Status Assessed: Yes (Full code) Critical Care: No Time Spent Managing Pts Care (In Minutes): 55
[2020-12-02] MEDS ORDERED: CALCIUM GLUCONATE 1 GM IVPB 1 GM/50 ML BAG IV ONE (21:37)
[2020-12-02] MEDS ORDERED: INSULIN -REGULAR HUMAN 50 UNIT/0.5 ML ML ONE (21:37)
[2020-12-02] MEDS ORDERED: D50W 50 ML IV ONE (21:37)
[2020-12-02] MEDS ORDERED: SODIUM BICARB 50 MEQ/50ML VIAL ONE ×2 (21:39→22:39)
[2020-12-02] MEDS ORDERED: SOD POLYSTYREN SUL 15 GM/60 ML UCUP ONE (21:39)
[2020-12-02] MEDS ORDERED: MORPHINE 4 MG/ML SYR ONE (21:57)
[2020-12-02] MEDS ORDERED: ONDANSETRON 4 MG/2 ML VIAL ONE (21:58)
[2020-12-02 22:01] LABS: Urine Blood 1+ (Negative); Urine Glucose Trace (Negative); Urine Protein 3+ (Negative); Urine Specific Gravity >=1.030 (1.005-1.030); Urine pH 6.5 (5.0-7.0)
[2020-12-03] MEDS ORDERED: ONDANSETRON 4 MG/2 ML VIAL IV PRN (00:06)
[2020-12-03] MEDS ORDERED: VANCOMYCIN/NS 1 gm 1 GM/250 ML BAG IVPB SCH (00:06)
[2020-12-03] MEDS ORDERED: VANCOMYCIN 1 GM/VIAL ONE (00:51)
[2020-12-03] MEDS ORDERED: NA CHLORIDE 0.9% 500 ML ONE (00:52)
[2020-12-03] MEDS: NA CHLORIDE 0.9% 1,000 ML IV SCH ×2 (00:59→14:23)
[2020-12-03] MEDS ORDERED: VANCOMYCIN 2.5 GM in NA CHLORIDE 0.9% 500 ML IVPB ONE (01:00)
[2020-12-03] MEDS: CEFEPIME/SWI 1gm 10 ML IVP SCH (01:00)
[2020-12-03] MEDS ORDERED: VANCOMYCIN 500 MG/VIAL ONE (01:02)
[2020-12-03 01:23] VITALS: BMI 31.5
[2020-12-03] MEDS: MORPHINE 2 MG/ML SYR IV PRN ×5 (01:45→20:04)
[2020-12-03] MEDS ORDERED: NITROGLYCERIN 0.4 MG/TAB SL SCH (05:00)
[2020-12-03] MEDS ORDERED: NITROGLYCERIN 0.4 MG/TAB SL PRN (05:12)
[2020-12-03] MEDS: PANTOPRAZOLE 40MG TABLET PO SCH (05:18)
[2020-12-03 06:01] LABS: Urine Appearance CLEAR (Clear); Urine Bilirubin NEGATIVE (Negative); Urine Blood 1+ (Negative); Urine Color YELLOW (Yellow); Urine Glucose TRACE (Negative); Urine Protein 3+ (Negative); Urine Specific Gravity 1.015 (1.005-1.030); Urine Urobilinogen 0.2 mg/dL (0.2-1.0)
--- NOTE | 2020-12-03 06:08 | P.PN ---
Subjective Date of Service: 12/03/20 Primary Care Provider: Joel presley Chief Complaint: Acute renal failure, hyperkalemia, osteomyelitis Subjective: Improving, Doing well Physical Examination - Vital Signs Temperature: 98.0 F Blood Pressure: 171/79 Pulse: 75 Respirations: 18 Pulse Ox (%): 95 - Studies Laboratory Data (last 24 hrs) 12/02/20 19:42: PT 14.9 H, INR 1.29 12/02/20 19:42: WBC 5.80, Hgb 9.3 L, Hct 26.9 L, Plt Count 304 12/02/20 19:42: Sodium 133 L, Potassium 5.9 H*, BUN 44 H, Creatinine 2.27 H, Glucose 170 H, Magnesium 1.5 L, Total Bilirubin 0.2, AST 12 L, ALT 17, Alkaline Phosphatase 124 H Assessment & Plan Discharge Plan: Home Plan to discharge in: Greater than 2 days Physician Review Additional Text: Foot xray: FINDINGS: Significant soft tissue swelling surrounds the second toe. Fracture changes are present involving the second proximal phalanx distal shaft and head. The second middle and distal phalanges are intact. Third- fifth toes are intact. Chronic postsurgical change to the distal fifth metatarsal. First toe has been resected. No air or foreign body in the soft tissues. Soft tissue swelling is present. IMPRESSION: Fracture of the left second proximal phalanx suspected to be osteomyelitis pathologic fracture. Significant soft tissue swelling is present around the second toe. Overall significant soft tissue swelling of the left ankle and foot. No air or foreign body in the soft tissues. Venous doppler: COMPARISON: None. FINDINGS: Echogenic material consistent with thrombus is present within the left superficial femoral and left popliteal vein. The veins are partially compressible with diminished blood flow. Left common femoral vein is patent. IMPRESSION: Acute thrombus within the left superficial femoral and left popliteal veins. The referring physician was notified of the results after this exam Renal US: COMPARISON: September 2020 FINDINGS: The right kidney measures 10 cm with an increased echotexture. The left kidney measures 12 cm with an increased echotexture. Hydronephrosis is not seen. No gross abnormality of bladder is seen IMPRESSION: Increased renal echotexture consistent with parenchymal disease Physical exam General: Alert, In no apparent distress, Oriented x3 HEENT: Atraumatic, PERRLA, Mucous membr. moist/pink Neck: Supple, 2+ carotid pulse no bruit, No LAD Respiratory: Clear to auscultation bilaterally, Normal air movement Cardiovascular: Regular rate/rhythm, Normal S1 S2 Capillary refill: <2 Seconds Gastrointestinal: Normal bowel sounds, No tenderness Musculoskeletal: No tenderness Integumentary: Diabetic ulcer (Significant diabetic ulceration to the dorsum of the left 2nd toe) Neurological: Normal speech, Normal strength at 5/5 x4 extr, Normal tone, Normal affect Impression: Acute on chronic renal disease stage III with hyperkalemia Chest pain atypical Diabetic ulceration with osteomyelitis pathologic fracture to the left second proximal phalanx Acute on chronic DVT left lower extremity within the left superior femoral/popliteal vein, noncompliant with anti coagulation therapy Diabetes mellitus type 2-insulin dependent Depression with anxiety/BPD/schizophrenia GERD Hypertension Anemia of chronic disease History of CVA Hyperlipidemia BPH Plan Acute on chronic renal disease stage III with hyperkalemia: Patient given Kayexalate. We will recheck potassium after. Renal ultrasound shows chronic renal disease. Await recommendations from nephrology. Spoke with surgery concerning osteomyelitis pathologic fracture of the left second proximal phalanx. Patient will require amputation. Will hold Eliquis in preparation for procedure. Will need to restart Eliquis after procedure. We will try to get his diabetes better control. Will adjust blood pressure medication. Continue with his psychiatric medications. Anticipate improvement over the next 72 hours. I will turn the service over to the hospitalist team tomorrow. I will go plan of care with him. Chest pain atypical: Spoke with cardiology. Cardiology plans for echocardiogram. Cardiac stress test also ordered to further evaluate. Continue isosorbide mononitrate. Diabetic ulceration with osteomyelitis pathologic fracture to the left second proximal phalanx: Continue IV vancomycin and cefepime. Wound and blood cultures obtained. Spoke with surgery. Surgery plans for amputation. Hold anticoagulation therapy in preparation for surgery. Acute on chronic DVT left lower extremity within the left superior femoral/ popliteal vein, noncompliant with anti coagulation therapy: Patient has been prescribed Eliquis. Patient noncompliant with medication. Hold anticoagulation in preparation for surgery. Will need to restart anticoagulation therapy after surgery. Compliance will need to be enforced. Diabetes mellitus type 2-insulin dependent: Will check A1c. Continue Accu-Cheks and sliding scale. Depression with anxiety/BPD/schizophrenia: Restart Depakote. GERD: Continue with Protonix. Hypertension: Medications adjusted. Discontinue carvedilol since the patient is already on a beta-blockermetoprolol. Will discontinue losartan due to chronic renal disease. Continue Norvasc and metoprolol. Will monitor and adjust appropriately. Anemia chronic disease: Stable, will monitor daily labs. Transfuse to maintain hemoglobin greater than 7.5. History of CVA: Review and restart home medication Hyperlipidemia: Restart home medication. BPH: Continue with Flomax CODE STATUS: Full code DVT prophylaxis: SCD Advance care planning: Home at discharge Time Spent Managing Pts Care (In Minutes): 55
[2020-12-03 06:23] LABS: Urine Microscopic Reflex ORDER UMIC
[2020-12-03 07:11] LABS: Absolute Lymphocytes (CBC) 0.8 K/uL (0.7-4.9); Basophils % 0.4 % (0-1.3); Hematocrit 27.5 % (39.6-49.0); Lymphocytes % 17.1 % (15.3-44.8); MPV 8.5 fL (7.6-11.3); RBC Red Blood Cell Count 3.08 M/uL (4.33-5.43)
[2020-12-03] MEDS: INSULIN -REGULAR HUMAN 50 UNIT/0.5 ML ML SQ SCH ×4 (07:30→20:38)
[2020-12-03 07:44] LABS: Albumin 2.2 g/dL (3.4-5.0); Bilirubin Total 0.3 mg/dL (0.2-1.0); Magnesium 1.6 mg/dL (1.8-2.4); Potassium 5.6 mmol/L (3.5-5.1); Protein, Total 7.2 g/dL (6.4-8.2)
[2020-12-03] MEDS ORDERED: carvediloL 12.5 MG TAB PO SCH (08:00)
--- NOTE | 2020-12-03 08:40 | RAD REPORT ---
EXAM DESCRIPTION: USExtremity Venous [facility] Ltd12/02/2020 9:31 pm CLINICAL HISTORY: left leg pain and swelling. COMPARISON: None. FINDINGS: Echogenic material consistent with thrombus is present within the left superficial femoral and left popliteal vein. The veins are partially compressible with diminished blood flow. Left common femoral vein is patent. IMPRESSION: Acute thrombus within the left superficial femoral and left popliteal veins. The referri physician was notified of the results after this exam
--- NOTE | 2020-12-03 08:44 | EKG ---
Test Date: 2020-12-02 Test Time: 19:44:24 Regional Account Manager: MILAD MEASUREMENT RESULTS: Intervals: Rate: 83 OH: 182 QRSD: 100 QT: 376 QTc: 441 [place]: P: 52 OH: 182 QRS: -36 T: 58 INTERPRETIVE STATEMENTS: Normal sinus rhythm Left axis deviation Possible Anterior infarct, age undetermined Abnormal ECG Compared to ECG 05/01/2020 11:19:40 Left-axis deviation now present Myocardial infarct finding still present Electronically Signed On 12-03-20 08:43:07 CDT by Tyler Gomez
[2020-12-03] MEDS ORDERED: CEFEPIME 1 GM/VIAL IV SCH (09:00)
[2020-12-03] MEDS: ISOSORBIDE MONO SR 30 MG TAB PO SCH (09:37)
[2020-12-03] MEDS: ATORVASTATIN 40 MG TAB PO SCH (09:37)
[2020-12-03] MEDS: METOPROLOL TAR 50 MG TAB PO SCH ×2 (09:37→20:40)
[2020-12-03] MEDS: TAMSULOSIN 0.4 MG SR CAP PO SCH (09:37)
[2020-12-03] MEDS: AMLODIPINE 10 MG TAB PO SCH (09:37)
[2020-12-03] MEDS ORDERED: SOD POLYSTYREN SUL 15 GM/60 ML UCUP PO ONE (10:00)
[2020-12-03 11:06] LABS: Urine Bacteria NONE SEEN /HPF (NONE SEEN)
[2020-12-03 11:46] LABS: Potassium 5.4 mmol/L (3.5-5.1)
--- NOTE | 2020-12-03 12:51 | RAD REPORT ---
EXAM DESCRIPTION: US - Renal Ultrasound-Complete - 12/03/2020 11:15 am CLINICAL HISTORY: Acute renal failure COMPARISON: September 2020 FINDINGS: The right kidney measures 10 cm with an increased echotexture. The left kidney measures 12 cm with an increased echotexture. Hydronephrosis is not seen. No gross abnormality of bladder is seen IMPRESSION: Increased renal echotexture consistent with parenchymal disease
[2020-12-03 13:14] LABS: Blood Morphology Comment NOT SEEN (NOT SEEN); Platelet Estimate ADEQ; White Blood Cell Scan OK (OK)
[2020-12-03] MEDS: HYDROCODONE/APAP 10/325 TAB PO PRN (14:23)
[2020-12-03 14:44] LABS: Absolute Lymphocytes (CBC) 0.6 K/uL (0.7-4.9); Basophils % 0.7 % (0-1.3); Hematocrit 26.8 % (39.6-49.0); Lymphocytes % 14.2 % (15.3-44.8); MPV 8.4 fL (7.6-11.3); RBC Red Blood Cell Count 3.05 M/uL (4.33-5.43)
[2020-12-03 15:00] LABS: Protime INR 1.23
[2020-12-03] MEDS ORDERED: FUROSEMIDE 40 MG/4 ML VIAL IV ONE (15:00)
[2020-12-03] MEDS: HEPARIN/D5W 25,000 UNIT/500 ML BAG IV PRN (15:16)
[2020-12-03] MEDS: HYDRALAZINE HCL 10 MG TABLET PO SCH ×3 (15:30→20:12)
[2020-12-03 15:55] LABS: Valproic Acid (Depakene) Level < 3.0 ug/mL (50-100)
--- NOTE | 2020-12-03 17:21 | CON ---
Date of Consultation: 12/03/2020 History Of Present Illness: The patient is seen in room 228. The patient presents with some lower e xtremity swelling, shortness of breath, has infection in his lower extremity, left lower extremity pa in. He has had some swelling there. He has had history of PAD and CVA, question of osteomyelitis in the past. The patient is not clear about his medications and is not a very good historian. His cre atinine in the past has been as high as about 3, but he seems to run between 1.4 and 2 and his creati nine 1.8 at this point seems to be close to his baseline. He has had urinalysis usually with some pr otein in the past up to 4 g on the protein creatinine ratio in September, but currently also presents wit h a few RBCs in the urine with elevated blood pressure, some extra swelling of his lower extremities. The patient is also having some mild breathing difficulty right on movement. He is eating some fri ed chicken right now with some fluids and he is able to tolerate that quite well, able to talk to me in full sentences. Does have some edema in his lower extremities on physical examination, does also have some crackles on the base of his lungs, otherwise good air entry. Allergies: HALDOL, . Medications: Reviewed from the chart. The patient does not have any listed NSAIDs, but when I talk to him, he does tell me that he has been taking ibuprofen. He last took some about 2 days ago. He i s not exactly clear if he is taking other NSAIDs and how much ibuprofen he has been taking. Past Medical History: Significant for diabetes, hypertension, seizure disorder, question of schizoph brittaney. The patient also has a question of bipolar disorder. He is on valproic acid, does not seem t o be on any significant dose of antipsychotics, but he is taking risperidone 1 mg p.o. daily. He is also on clonazepam 1 mg p.o. b.i.d. He is mainly on Depakote 3 tablets at bedtime. He has also been on Eliquis b.i.d. for lower extremity DVT. Family History: Noncontributory at this point. The patient is unable to provide much history anyway s. Social History: He is a smoker. He is not clear about what medications or how much alcohol uses if any. He does explain on asking a couple of times that he does take NSAIDs and has been taking ibupro fen about 2 days ago, not sure how reliable his history is. Physical Examination: General: The patient is alert. He is able to answer some questions. Vital Signs: His blood pressure is elevated between 170 and 180 systolic. His diastolic is in the 9 0 range, was about 79 earlier. Pulse is about 80 and regular. He is afebrile, O2 sats are between m id 90s. He did have 1 reading of about 80s, but with taking deep breaths that comes up. His pain le thu is between 6 and 9, mainly in the left lower extremity. Lungs: Clear to auscultation anteriorly with decreased breath sounds, perhaps few crackles at the very bases. Abdomen: Soft. Extremities: Do reveal edema. They do show some mild venous congestion changes. He does also have poor pulses. He has both his feet wrapped up. Medications: Reviewed. He is on hydrocodone. He is on amlodipine. He is on Eliquis. He is on cho lesterol medication with atorvastatin. He has been started on cefepime and on heparin. He is on ins ulin. He is on isosorbide, metoprolol, morphine for pain, nitroglycerin p.r.n., Zofran p.r.n., panto prazole. He is on sodium chloride flushes, tamsulosin, and tramadol p.r.n. Laboratory Data: Lab data reviewed. His labs show WBC count of 4, hemoglobin and hematocrit stable at 9.2 and 26.8, platelet counts are reasonable at 263. Chemistry shows sodium 136, potassium in the mid 5 range, last one was 5.4. Chloride 105, bicarb 28, BUN 36, creatinine 1.89, glucose at 163. Assessment And Plan: The patient is a 60-year-old male with history of a bipolar schizophrenia with history of being a poor historian and some noncompliance with treatments in the past. He has been sp oradically following up for wound care in the lower extremity, has had history of DVT, osteomyelitis, PAD, peripheral vascular disease, now presents with congestion, some lower extremity swelling that i s worse, question of osteomyelitis, may need surgery for amputation of fifth toe on the left leg. He is being prepared for that. His anticoagulation has been stopped and he has been started on heparin . Potassium was slightly elevated. Given his elevated blood pressure and some swelling in the lower extremities, now that he is eating and drinking, and not n.p.o. for today. He can be stopped off hi s IV fluids. He is currently getting 75 cc of normal saline. Also, it seems to me that some of his RBCs in the urine and also his difficulty with his blood pressure and some swelling in the lower extr emities could be secondary to his use of NSAIDs. I counseled him to not use ibuprofen going forward. He does stated back to me and seems like he understands. We have stopped his IV fluids for now. W e will give him a dose of Lasix 40 mg, which will also help us with his potassium to lower that. We will go ahead and start him on hydralazine low dose of 10 mg twice a day and monitor his blood pressu re. His systolic is less than 120. Hydralazine can be held. He is already on a beta yanely. He i s already on anticoagulation with heparin. He is getting pain control. He is getting antibiotics fo r his osteomyelitis broad-spectrum coverage with the cefepime and vancomycin. Given his Depakote dos ing, we will go ahead and get his Depakote level. Also get a level on his ammonia to see if that is contributing to any of his mentation issues. We will go ahead and also get a TSH level to see if isabel t is contributing to any of his blood pressure or edema problems. Appreciate your consultation Dr. Kunal morgan. We will continue to follow this patient with you. Do not hesitate to call me if any question sSebas VALENCIA/PER Voice ID: [id number] Report ID: [id number]
--- NOTE | 2020-12-03 17:42 | CON ---
Date of Consultation: 12/03/2020 Reason For Service: Left second toe gangrene. History Of Present Illness: This is the case of a 60-year-old patient with multiple medical problems including bipolar disorder, schizophrenia, CVA, PAD, diabetes, comes to us with gangrene of the left second toe with osteomyelitis present in the foot. Patient and Surgical Service were consulted for possible amputation. The patient's family is at bedside, so I was able to get some information from them and the patient does not give much information. Allergies: HALDOL AND NARCAN. Medications: Reviewed including Eliquis. Past Medical History: Diabetes, peripheral vascular disease, osteomyelitis, bipolar disorder, schizo phrenia. Past Surgical History: Include previous surgery left great toe amputation, history of blood clots, r ight knee surgery, right eye removal. Bilateral wrist surgery due to suicidal attempt. Social History: He does not smoke. He does not drink alcohol. Family History: Includes heart attack. Review of Systems: See H and P. Ten points are otherwise unremarkable, unable to be obtained. Most of them obtained fr om the patient's family. Physical Examination: General: The patient is awake, in no distress. HEENT: Pupils anicteric. Chest: Clear. Abdomen: Soft and depressible. Extremities: Dorsalis pedis pulses bilaterally diminished. Over the left second toe, the patient hickey s gangrene, but have clinical findings of osteomyelitis and showing the bone, showing tendons, skin g one, just an open toe completely, some destructive effects in that area. The first toe area was prev iously amputated. Laboratory Data: Blood work reviewed. Plan: Left second toe amputation. I explained to him and the family that this is not a cure for dis ease. We are just removing the manifestation of the disease on the gangrene of the second toe, but h e has to be compliant with treatment. Diet, nutrition, wound care, the proper use of shoes to be abl e to save the rest of the foot. Otherwise, I believe from portion we are going in the same direction and he is going to end with higher amputation. They understand. HM/MODL Voice ID: [id number] Report ID: [id number]
[2020-12-03] MEDS ORDERED: MORPHINE 2 MG/ML SYR IV ONE (20:15)
[2020-12-03] MEDS: DIVALPROEX DR 500MG TAB PO SCH (20:40)
[2020-12-03 21:46] LABS: Urine Appearance CLEAR (Clear); Urine Bilirubin NEGATIVE (Negative); Urine Blood 1+ (Negative); Urine Color YELLOW (Yellow); Urine Glucose TRACE (Negative); Urine Protein 3+ (Negative); Urine Urobilinogen 0.2 mg/dL (0.2-1.0); Urine pH 5.5 (5.0-7.0)
[2020-12-03 21:53] LABS: Urine Bacteria <20 /HPF (NONE SEEN); Urine RBC <5 /HPF (NONE SEEN)
[2020-12-03 21:54] LABS: Urine Amorphous Sediment 1+ /HPF (NONE SEEN)
[2020-12-04] MEDS: MORPHINE 2 MG/ML SYR IV PRN ×6 (00:20→23:43)
[2020-12-04] MEDS: VANCOMYCIN 1.75 GM in NA CHLORIDE 0.9% 500 ML IVPB SCH (00:21)
[2020-12-04] MEDS: CEFEPIME/SWI 1gm 10 ML IVP SCH (00:46)
[2020-12-04 06:12] LABS: Absolute Lymphocytes (CBC) 0.9 K/uL (0.7-4.9); Basophils % 0.6 % (0-1.3); Hematocrit 27.3 % (39.6-49.0); MPV 8.6 fL (7.6-11.3); RBC Red Blood Cell Count 3.04 M/uL (4.33-5.43)
[2020-12-04] MEDS: PANTOPRAZOLE 40MG TABLET PO SCH (06:27)
[2020-12-04 06:40] LABS: Albumin 2.2 g/dL (3.4-5.0); Bilirubin Total 0.2 mg/dL (0.2-1.0); Magnesium 1.5 mg/dL (1.8-2.4); Potassium 4.5 mmol/L (3.5-5.1); Protein, Total 7.1 g/dL (6.4-8.2)
[2020-12-04] MEDS: HEPARIN/D5W 25,000 UNIT/500 ML BAG IV PRN (07:04)
[2020-12-04] MEDS: APIXABAN 5 MG TABLET PO SCH ×2 (08:23→21:00)
[2020-12-04] MEDS: AMLODIPINE 10 MG TAB PO SCH (08:33)
[2020-12-04] MEDS: METOPROLOL TAR 50 MG TAB PO SCH ×3 (08:34→21:14)
[2020-12-04] MEDS: HYDRALAZINE HCL 10 MG TABLET PO SCH (08:34)
[2020-12-04] MEDS: INSULIN -REGULAR HUMAN 50 UNIT/0.5 ML ML SQ SCH ×5 (08:34→20:30)
[2020-12-04] MEDS: ISOSORBIDE MONO SR 30 MG TAB PO SCH (08:34)
[2020-12-04] MEDS: ATORVASTATIN 40 MG TAB PO SCH (08:35)
[2020-12-04] MEDS: TAMSULOSIN 0.4 MG SR CAP PO SCH (08:35)
[2020-12-04] MEDS ORDERED: REGADENOSON 0.4 MG/5 ML SYR IV ONE (09:19)
[2020-12-04] MEDS ORDERED: FUROSEMIDE 40 MG/4 ML VIAL IV ONE (10:36)
--- NOTE | 2020-12-04 10:56 | RAD REPORT ---
EXAM DESCRIPTION: NM - Rest Stress Cardiac Imaging - 12/04/2020 10:47 am CLINICAL HISTORY: CARDIAC CLEARANCE Chest pain. COMPARISON: REST STRESS CARDIAC dated 01/02/2015 TECHNIQUE: The patient was administered approximately 10mCi of Tc 99m Sestamibi prior to resting SPE CT imaging of the heart. The patient was then administered approximately 30 mCi of Tc 99m Sestamibi f ollowing exercise or pharmacologic stress. Multiplanar SPECT images were reviewed. FINDINGS: No stress induced ischemic defect is seen to suggest stress induced ischemia. No fixed def ect is seen to suggest hibernating myocardium or scarred myocardium. The end diastolic volume is 123 ml, the end systolic volume is 58 ml, and the ejection fraction is 53 %. IMPRESSION: No stress induced ischemia.
[2020-12-04] MEDS ORDERED: MAGNESIUM SULFATE 1 gm IVPB 1 GM/100 ML BAG IV ONE (11:34)
[2020-12-04] MEDS ORDERED: DRISDOL (VITAMIN D=ERGOCALCIFEROL) 50000 UNIT CAP PO ONE (13:00)
[2020-12-04] MEDS ORDERED: VANCOMYCIN 1.75 GM in NA CHLORIDE 0.9% 500 ML IVPB SCH (13:00)
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
--- NOTE | 2020-12-04 13:46 | CON ---
Date of Consultation: 12/02/2020 Reason For Consultation: Chest pain. History Of Present Illness: Mr. Fry is a 60-year-old, he has a very complicated past history incl uding CVA, neuropathy, seizure disorder, hypertension, diabetes, dyslipidemia, coronary artery diseas e, and bipolar disorder. Came in with osteomyelitis, diabetic wound, leg pain, DVT, hyperkalemia, ac [place] renal failure and chest pain. His chest pain is sharp, stabbing, left lateral chest. No nausea, vomiting, diaphoresis, PND, orthopnea, pedal edema, palpitation, or syncope. His troponin is negati ve. His creatinine was elevated. Hemoglobin 9.2. BNP was 1579. His chest x-ray was negative. EKG was nonspecific. Allergies: HALDOL AND NALOXONE. Medications: At home include Norvasc, Depakote, Eliquis, losartan, Lipitor, metoprolol, Protonix, Co reg, Imdur, and Flomax. Review of Systems: Negative. Social History: Negative. Family History: Positive for diabetes and heart disease. Physical Examination: Vital Signs: Stable. He was afebrile. HEENT: Negative. Neck: Supple. No bruit. Chest: Clear to auscultation and percussion. Cardiac: Revealed a regular rhythm and rate with an S4 gallops. Abdomen: Benign. Extremities: Revealed a diabetic extensive wounds bilaterally. Diagnostic Data: As stated earlier. Impression And Plan: 1.Chest pain. 2.History of deep venous thrombosis. 3.Hyperkalemia. 4.Acute renal failure. 5.Osteomyelitis. 6.Diabetic wounds. 7.Bipolar disorder. 8.Coronary artery disease. 9.Hypertension. 10.Diabetes. 11.Dyslipidemia. 12.History of cerebrovascular accident. 13.Neuropathy. 14.Seizure disorder. I agree with the present regimen. I think once his creatinine is better, he needs to have an extensi ve cardiac workup including Lexiscan. We can get an echocardiogram on him on Friday12/04/2020, if h e stays in the hospital. MALCOM/PER Voice ID: [id number] Report ID: [id number]
[2020-12-04] MEDS ORDERED: D50W 25 GM/50 ML SYRINGE IV PRN (13:50)
[2020-12-04] MEDS ORDERED: GLUCAGON 1 MG/VIAL IM PRN (13:50)
--- NOTE | 2020-12-04 13:58 | PN ---
Date of Progress Note: 12/03/2020 Mr. Fry is a 60-year-old with very extensive past medical history including bipolar disorder, CAD, hypertension, dyslipidemia, and diabetes as well as seizure disorders, CVA and neuropathy, came in w ith acute renal failure, elevated creatinine, chest pain, DVT, diabetic wound, osteomyelitis. He is on antibiotic. Today, he has normal vital signs. He remained in sinus rhythm. No chest pain. His examination is n ot changed. We will continue present regimen. Echocardiogram is pending for 12/04/2020. We will plan for him to have an outpatient Lexiscan down the road. Continue present regimen otherwise. MALCOM/PER Voice ID: [id number] Report ID: [id number]
--- NOTE | 2020-12-04 15:37 | PN ---
Date of Progress Note: 12/04/2020 The patient is seen in room 228 on second floor. Subjective: The patient is alert, awake, just returned back from a stress test. He denies any disco mfort currently. He does say that he gets a little short of breath with moving around, but he is off oxygen currently, O2 sats are in mid 90s. His lungs do reveal a few crackles at the very bases, but improved air entry even compared to yesterday. He does have edema in lower extremities, trace, but is improved compared to yesterday as well. Objective: Vital Signs: He is stable on his vitals. His blood pressure is around 153/74, repeat 15 , pulse is about 81, respirations are regular about 14 to 15. He is afebrile with O2 sats at abo ut 98% on room air. He has been about positive 800 cc overnight on his in's and out's. Lungs: Clear with few crackles at the very bases. Improved air entry and better breathing compared to yesterday. Abdomen: Soft. Extremities: Do reveal trace edema bilaterally. Some venous congestion changes. He does have his l eft foot dressed. Laboratory Data: Reviewed. His labs show WBC of 4.0, hemoglobin 9, hematocrit 27.3, platelet count of 303. Chemistry shows sodium 137, potassium 4.5, chloride 105, bicarb is 24, BUN is 34, creatinine is 2.17. His glucose has been running in about 150 to 300 range. His magnesium level is low at 1.5 . Calcium level is low at 7.8, close to normal with correction of albumin with albumin of 2.2. His TSH is 2.050. His urine seems to be clearing up. He does not have any RBCs in the urine. He has 3+ proteinuria. His specific gravity in the urine also improved at 1.010. His urine was pretty concentrated earlier at about greater than 1.030. Assessment And Plan: The patient presents with mild congestion, chronic kidney disease. His creatin ine has gone up slightly, but that is in the setting of his volume status improving. His specific gr avity in the urine has improved. He is clinically looking a little bit better today, breathing somew hat better and his lungs are sounding improved. His blood pressure is still on the higher side, but improved at about 158/73. He denies any pain. He just returned from the stress test. I also spoke with his parents earlier, who understand that he needs to follow up with his physician visits and als o needs to get that for taking care of and regularly followed up on. The left foot may require surge ry. The surgeon is evaluating him. He has just gone for a stress test, presumably for clearance to go for the surgery. Plan: Give another dose of Lasix at 40 mg IV, increase hydralazine to 25 mg p.o. b.i.d., hold for SB P less than 120. Replace magnesium with 1 g IV. Start gentle vitamin D replacement. We will give a pill of 50,000 units of vitamin D 1 time dose and may need outpatient replacement going forward. Th e patient has been positive overnight with about 800 cc and the Lasix should help keep that in balanc e. He is close to euvolemic currently. His creatinine is close to his baseline. His RBCs in the ur ine have resolved. It looks like he had some irritation from the metformin that he was taking. I hickey ve counseled his parents and also the patient for him to avoid using any ibuprofen, Aleve, Motrin, or naproxen. He can use Tylenol for pain control and other medications need to be in supervision of hi s physician team. The patient does seem to be clinically stable currently. Would need that osteomye litis in the lower extremity addressed, getting surgery evaluation, currently on antibiotics and tole rating well. /PER Voice ID: [id number] Report ID: [id number]
--- NOTE | 2020-12-04 15:50 | EKG ---
Test Date: 2020-12-03 Test Time: 14:52:50 Vegetable Grower: BECKY Petty MEASUREMENT RESULTS: Intervals: Rate: 85 AL: 162 QRSD: 102 QT: 374 QTc: 445 Cody: P: 53 AL: 162 QRS: -31 T: 61 INTERPRETIVE STATEMENTS: Normal sinus rhythm Left axis deviation Possible Anterior infarct, age undetermined Abnormal ECG Compared to ECG 12/02/2020 19:44:24 No significant changes Electronically Signed On 12-04-20 15:47:16 CDT by Tyler Gomez
--- NOTE | 2020-12-04 16:14 | RAD REPORT ---
EXAM DESCRIPTION: MRI - Foot Left Wo Cont - 12/04/2020 3:58 pm CLINICAL HISTORY: eval for osteo, soft tissue infection second toe COMPARISON: Foot Left Wo Cont dated 03/06/2020; Foot Left Wo Cont dated 01/05/2019 TECHNIQUE: Multiplanar imaging of the foot performed using T1 weighted, T1 fat saturation, T2 fat sa turation and T2 stir sequencing. FINDINGS: Hypointense T1 and hyperintense T2 signal are present in the proximal and middle phalanges of the second toe. This is a pattern typical for osteomyelitis. Soft tissue edematous/inflammatory s ignal is present surrounding the second toe. Distal phalanx the second toe maintains normal MR signal characteristics. No gross evidence for cortical destruction. There is motion on examination that limits evaluation of fine cortical thinning or disruption. Second metatarsal head maintains normal signal characteristics. The third- fifth toes and metatarsals show no suspicious findings. First metatarsal shows no suspicious signal pattern. First toe has been previously resected. No abscess or drainable fluid collection in soft tissues. IMPRESSION: Osteomyelitis of the proximal and middle phalanges left second toe. No gross evidence for bone destruction. The amount of motion does limit fine detail. No abscess or drainable fluid collection.
[2020-12-04] MEDS ORDERED: NA CHLORIDE 0.9% 1,000 ML ONE (16:24)
[2020-12-04] MEDS ORDERED: propofoL 200 MG/20 ML VIAL IV ONE (16:32)
[2020-12-04] MEDS ORDERED: LIDOCAINE 2% MPF 5 ML VIAL ONE (16:32)
[2020-12-04] MEDS ORDERED: MIDAZOLAM HCL 2 MG/2 ML INJ ONE (16:33)
--- NOTE | 2020-12-04 17:40 | P.BOP ---
Preoperative diagnosis: left second toe gangrene, osteomyelitis Postoperative diagnosis: same Primary procedure: LEft second toe amputation Estimated blood loss: <5cc Specimen: toe Findings: as above Anesthesia: General Complications: None Transferred to: Recovery Room Condition: Good
[2020-12-04] MEDS ORDERED: GLYCOPYRROLATE 0.2 MG/ML SYR ONE (17:42)
[2020-12-04] MEDS: HYDRALAZINE HCL 25 MG TABLET PO SCH (21:14)
[2020-12-04] MEDS: DIVALPROEX DR 500MG TAB PO SCH (21:14)
--- NOTE | 2020-12-04 23:12 | OP ---
Date of Procedure: 12/04/2020 Surgeon: Robson Parra MD Preoperative Diagnoses: Left second toe gangrene and osteomyelitis. Postoperative Diagnoses: Left second toe gangrene and osteomyelitis. Procedure Performed: Left second toe amputation. Anesthesia: General plus local. Indications: This is the case of a male, who comes to us with a toe that have a dislocation of the p halanx and the bone is sticking through the wound with a big ulceration in that area, purulent discha rge consistent with gangrenous changes and osteomyelitis. The patient explained the need for an ampu tation of that toe with benefits, alternatives, and risks including, but not limited to infection, bl eeding, damage to adjacent structures, anesthesia complication, nonhealing wound, ME, and even . He also understands this may not relieve symptoms. He might need more than one surgical interventi on. He understands the importance of compliance with wound care, compliance with nutrition, complian ce with medications since removing toe is not the challenge he is trying to make it to heal and obvio usly the higher we go the more proximal the higher chance for healing, but he does not want to more t stokes just that toe removed at this moment, so we agree with the consent on that. The area of concern was marked by me and the patient in the holding room. Procedure In Detail: The patient was brought to the operating room and placed in supine position. A nesthesia was done without complication. The left foot was prepped and draped in sterile fashion. A time-out was called. An incision was made over the right intermetatarsal head of the left second to e. The toe was amputated with a sharp knife, leaving some skin behind, but most of the skin is the n ecrotic, so we have to go the right head, get the metatarsal head excoriated with Bovie cau terizer. Remove the callus from that area. I irrigated the area profusely, obtained hemostasis and then covered the area with the dry dressing. The patient tolerated the procedure well. The patient was sent to recovery in stable condition. WALTER/PER Voice ID: [id number] Report ID: [id number]
[2020-12-05] MEDS ORDERED: NA CHLORIDE 0.9% 250 ML ONE (00:03)
[2020-12-05] MEDS: VANCOMYCIN 1.75 GM in NA CHLORIDE 0.9% 500 ML IVPB SCH (00:12)
[2020-12-05] MEDS: CEFEPIME/SWI 1gm 10 ML IVP SCH (00:22)
[2020-12-05] MEDS: HYDROCODONE/APAP 10/325 TAB PO PRN ×3 (01:01→20:15)
[2020-12-05] MEDS: TRAMADOL HCL 50 MG TAB PO PRN (02:53)
[2020-12-05] MEDS: MORPHINE 2 MG/ML SYR IV PRN (04:05)
[2020-12-05] MEDS ORDERED: MORPHINE 2 MG/ML SYR IV ONE (04:28)
[2020-12-05] MEDS: PANTOPRAZOLE 40MG TABLET PO SCH (05:33)
[2020-12-05 06:13] LABS: Basophils % 0.7 % (0-1.3); Lymphocytes % 25.5 % (15.3-44.8); MPV 8.4 fL (7.6-11.3); RBC Red Blood Cell Count 2.78 M/uL (4.33-5.43)
[2020-12-05 06:30] LABS: Albumin 2.4 g/dL (3.4-5.0); Bilirubin Total 0.2 mg/dL (0.2-1.0); Magnesium 1.7 mg/dL (1.8-2.4); Potassium 5.3 mmol/L (3.5-5.1); Protein, Total 7.1 g/dL (6.4-8.2)
--- NOTE | 2020-12-05 06:37 | P.PN ---
Subjective Date of Service: 12/04/20 Had a long conversation with Mr. Fry whom I've known for a long time. Plan for surgery later today as a stress test is been unremarkable. If patient does not do well with this 2nd toe amputation he may eventually need a below-knee amputation. He does not really do a good job taking care of his health. His significant other recently recovered from cancer and is in remission. He lives with his mom and dad. His blood sugars are poorly controlled. Review of Systems 10-point ROS is otherwise unremarkable Physical Examination - Vital Signs Temperature: 97.4 F Blood Pressure: 144/90 Pulse: 63 Respirations: 18 Pulse Ox (%): 96 - Physical Exam General: Alert, In no apparent distress, Oriented x3 Respiratory: Clear to auscultation bilaterally, Normal air movement Cardiovascular: Regular rate/rhythm, Normal S1 S2, Systolic murmur Gastrointestinal: Normal bowel sounds, Soft and benign, Non-distended, No tenderness Musculoskeletal: No clubbing, No tenderness Neurological: Sensation intact, Cranial nerves 3-12 intact Lymphatics: No axilla or inguinal lymphadenopathy - Studies Medications List Reviewed: Yes Assessment & Plan - Problems (Diagnosis) (1) Osteomyelitis of second toe of left foot Current Visit: Yes Status: Acute (2) Bipolar disorder Onset Date: 01/02/15 Current Visit: No Status: Chronic Qualifiers: (3) Claustrophobia Current Visit: No Status: Chronic (4) Diabetes mellitus Onset Date: 04/24/15 Current Visit: No Status: Chronic Qualifiers: Diabetes mellitus type: type 2 Diabetes mellitus roasterman insulin use: with chcf use Diabetes mellitus complication status: with neurologic comp lications Diabetes mellitus complication detail: with polyneuropathy Qualified Code(s): E11.42 - Type 2 diabetes mellitus with diabetic polyneurop athy; 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 Continue with IV antibiotic 2. Continue with local wound care 3. Wound care consultation/surgical consultation appreciated 4. Gentle IV hydration 5. Monitor CBC 6. Strict blood sugar monitoring 7. Pain control 8. Physical therapy evaluation 9. GI and DVT prophylaxis Discharge Plan: Home Plan to discharge in: Greater than 2 days - Advance Directives Does patient have a Living Will: Yes Does patient have a Durable POA for Healthcare: Yes - Code Status/Comfort Care Code Status Assessed: Yes Code Status: Full Code Critical Care: No Time Spent Managing PTS Care (In Minutes): 35
[2020-12-05] MEDS ORDERED: NA CHLORIDE 0.9% 1,000 ML IV SCH (07:00)
[2020-12-05] MEDS: INSULIN -REGULAR HUMAN 50 UNIT/0.5 ML ML SQ SCH ×4 (07:30→20:14)
--- NOTE | 2020-12-05 08:32 | ECHO ---
HEIGHT: 6 ft 0 in WEIGHT: 232 lb 0 oz DATE OF STUDY: 12/04/[address]: Tyler Gomez MD 2-DIMENSIONAL: YES M.MODE: YES DOPPLER: YES COLOR FLOW: YES TDS: NO PORTABLE: NO DEFINITY: NO BUBBLE STUDY: NO DIAGNOSIS: CHEST PAIN CARDIAC HISTORY: CATHERIZATION: NO SURGERY: NO PROSTHETIC VALVE: NO PACEMAKER: NO MEASUREMENTS (cm) DIASTOLIC (NORMALS) SYSTOLIC (NORMALS) IVSd 1.4 (0.6-1.2) LA Diam 3.6 (1.9-4.0) LVEF 70% LVIDd 4.6 (3.5-5.7) LVIDs 2.8 (2.0-3.5) %FS 40% LVPWd 1.2 (0.6-1.2) Ao Diam 2.7 (2.0-3.7) 2 DIMENSIONAL ASSESSMENT: RIGHT ATRIUM: NORMAL LEFT ATRIUM: NORMAL RIGHT VENTRICLE: NORMAL LEFT VENTRICLE: LEFT VENTRICULAR HYPERTROPHY TRICUSPID VALVE: NORMAL MITRAL VALVE: NORMAL PULMONIC VALVE: NORMAL AORTIC VALVE: NORMAL PERICARDIAL EFFUSION: NONE AORTIC ROOT: NORMAL LEFT VENTRICULAR WALL MOTION: NORMAL DOPPLER/COLOR FLOW: MILD TRICUSPID REGURGITATION. COMMENTS: NORMAL LEFT VENTRICULAR SIZE AND FUNCTION. NO WALL MOTION ABNORMALITY. MILD TRICUSPID REGURGITATION. NO EFFUSION. TECHNOLOGIST: Sandeep HASKINS
[2020-12-05] MEDS: AMLODIPINE 10 MG TAB PO SCH (08:51)
--- NOTE | 2020-12-05 08:51 | TREADPHA ---
DX: CHEST PAIN Date of Study: 12/04/2020 Ht: 6' 0 " Wt: 232 lb 0 oz Consulting Physician: JORDY MEDICATIONS: HISTORY: 60 YEAR OLD MALE WITH COMPLAINTS OF CHEST PAIN. MEDICAL HISTORY OF BLINDNESS IN RIGHT EYE, DIABETES MELLITUS, HYPERTENSION AND KIDNEY INJURY. PHYSICIAL EXAMINATION: RESTING B.P.: 155/83 RESTING H.R.: 76 RESTING EKG: SINUS RHYTHM, NORMAL ST PROTOCOL: LEXISCAN EXERCISE TIME: 3:30 B.P. AT PEAK STRESS: 144/77 IMPRESSION: LEXISCAN INJECTED. CARDIOLITE INJECTED PER PROTOCOL. SEE NUCLEAR MEDICINE REPORT. NO SUPRAVENTRICULAR TACHYCARDIA. NO VENTRICULAR TACHYCARDIA. NO PREMATURE VENTRICULAR COMPLEXES. DENIES CHEST PAIN.
[2020-12-05] MEDS: ATORVASTATIN 40 MG TAB PO SCH (08:52)
[2020-12-05] MEDS: ISOSORBIDE MONO SR 30 MG TAB PO SCH (08:52)
[2020-12-05] MEDS: APIXABAN 5 MG TABLET PO SCH ×2 (08:52→20:13)
[2020-12-05] MEDS: HYDRALAZINE HCL 25 MG TABLET PO SCH ×2 (08:53→20:13)
[2020-12-05] MEDS: TAMSULOSIN 0.4 MG SR CAP PO SCH (08:53)
[2020-12-05] MEDS: METOPROLOL TAR 50 MG TAB PO SCH ×2 (08:57→20:13)
[2020-12-05] MEDS ORDERED: SOD POLYSTYREN SUL 15 GM/60 ML UCUP PO ONE (09:46)
[2020-12-05] MEDS ORDERED: FUROSEMIDE 40 MG/4 ML VIAL IV ONE (09:47)
[2020-12-05] MEDS ORDERED: MAGNESIUM SULFATE 1 gm IVPB 1 GM/100 ML BAG IV ONE (09:59)
[2020-12-05] MEDS: MORPHINE 4 MG/ML SYR IV PRN ×3 (10:31→22:30)
--- NOTE | 2020-12-05 10:38 | P.PN ---
Subjective Date of Service: 12/05/20 Primary Care Provider: Joel presley Chief Complaint: Acute renal failure, hyperkalemia, osteomyelitis Patient seen examined at bedside status post remote left 2nd toe amputation. Patient tolerated surgery well, surgical wound dressing in place. Leukopenia noted on WBC, recommend further studies. Review of Systems 10-point ROS is otherwise unremarkable Physical Examination - Vital Signs Temperature: 97.6 F Blood Pressure: 141/80 Pulse: 77 Respirations: 18 Pulse Ox (%): 97 - Studies Medications List Reviewed: Yes Assessment And Plan - Plan Physical exam: General: Alert, In no apparent distress, Oriented x3 HEENT: Atraumatic, Normocephalic, Abnormal EOM Neck: Supple, 2+ carotid pulse no bruit Respiratory: Clear to auscultation bilaterally, Normal air movement Cardiovascular: No edema Gastrointestinal: Normal bowel sounds, Hypoactive, Soft and benign Musculoskeletal: No clubbing, No swelling Integumentary: Other (Left foot callus at head of 1st metatarsal. Right 2nd toe in diabetic foot ulcer: Bone and tendon exposed. Slough tissue present on wound bed.) Conclusions/Impression: Antibiotics: Cefepime Start: 12/03 stop: -- DC: Vancomycin Start: 12/04 stop: 12/05 Assessment: -osteomyelitis of the left 2nd toe. Callus to head of first metatarsal -diabetes mellitus uncontrolled -leukopenia -anemia -Protein caloric malnutrition -PAD and PVD -CKD stage 3 -bipolar and schizophrenia Plan: -left foot x-ray performed on 12/02 showed: : "Fracture of the left second proximal phalanx suspected to be osteomyelitis pathologic fracture. Significant soft tissue swelling is present around the second toe. Overall significant soft tissue swelling of the left ankle and foot. No air or foreign body in the soft tissues." -patient underwent left 2nd toe amputation on 12/05. Wound care orders per Dr. Parra. -wound cultures grew Pseudomonas aeruginosa. Vancomycin discontinued it, continue cefepime a for 3-5 days. Can switch to short course of oral antibiotic therapy for discharge. Long-term antibiotic therapy not needed as infected bone was removed. -To callus on left foot 1st metatarsal: Apply DuoDerm. Medical management per primary team Continue monitor CBC and BMP Plan of care discussed Dr. Hernandez Thank you for consultation. Physician Review Additional Text: Foot xray: FINDINGS: Significant soft tissue swelling surrounds the second toe. Fracture changes are present involving the second proximal phalanx distal shaft and head. The second middle and distal phalanges are intact. Third- fifth toes are intact. Chronic postsurgical change to the distal fifth metatarsal. First toe has been resected. No air or foreign body in the soft tissues. Soft tissue swelling is present. IMPRESSION: Fracture of the left second proximal phalanx suspected to be osteomyelitis pathologic fracture. Significant soft tissue swelling is present around the second toe. Overall significant soft tissue swelling of the left ankle and foot. No air or foreign body in the soft tissues. Venous doppler: COMPARISON: None. FINDINGS: Echogenic material consistent with thrombus is present within the left superficial femoral and left popliteal vein. The veins are partially compressible with diminished blood flow. Left common femoral vein is patent. IMPRESSION: Acute thrombus within the left superficial femoral and left popliteal veins. The referring physician was notified of the results after this exam Renal US: COMPARISON: September 2020 FINDINGS: The right kidney measures 10 cm with an increased echotexture. The left kidney measures 12 cm with an increased echotexture. Hydronephrosis is not seen. No gross abnormality of bladder is seen IMPRESSION: Increased renal echotexture consistent with parenchymal disease Physical exam General: Alert, In no apparent distress, Oriented x3 HEENT: Atraumatic, PERRLA, Mucous membr. moist/pink Neck: Supple, 2+ carotid pulse no bruit, No LAD Respiratory: Clear to auscultation bilaterally, Normal air movement Cardiovascular: Regular rate/rhythm, Normal S1 S2 Capillary refill: <2 Seconds Gastrointestinal: Normal bowel sounds, No tenderness Musculoskeletal: No tenderness Integumentary: Diabetic ulcer (Significant diabetic ulceration to the dorsum of the left 2nd toe) Neurological: Normal speech, Normal strength at 5/5 x4 extr, Normal tone, Normal affect Impression: Acute on chronic renal disease stage III with hyperkalemia Chest pain atypical Diabetic ulceration with osteomyelitis pathologic fracture to the left second proximal phalanx Acute on chronic DVT left lower extremity within the left superior femoral/popliteal vein, noncompliant with anti coagulation therapy Diabetes mellitus type 2-insulin dependent Depression with anxiety/BPD/schizophrenia GERD Hypertension Anemia of chronic disease History of CVA Hyperlipidemia BPH Plan Acute on chronic renal disease stage III with hyperkalemia: Patient given Kayexalate. We will recheck potassium after. Renal ultrasound shows chronic renal disease. Await recommendations from nephrology. Spoke with surgery concerning osteomyelitis pathologic fracture of the left second proximal phalanx. Patient will require amputation. Will hold Eliquis in preparation for procedure. Will need to restart Eliquis after procedure. We will try to get his diabetes better control. Will adjust blood pressure medication. Continue with his psychiatric medications. Anticipate improvement over the next 72 hours. I will turn the service over to the hospitalist team tomorrow. I will go plan of care with him. Chest pain atypical: Spoke with cardiology. Cardiology plans for echocardiogram. Cardiac stress test also ordered to further evaluate. Continue isosorbide mononitrate. Diabetic ulceration with osteomyelitis pathologic fracture to the left second proximal phalanx: Continue IV vancomycin and cefepime. Wound and blood cultures obtained. Spoke with surgery. Surgery plans for amputation. Hold anticoagulation therapy in preparation for surgery. Acute on chronic DVT left lower extremity within the left superior femoral/popliteal vein, noncompliant with anti coagulation therapy: Patient has been prescribed Eliquis. Patient noncompliant with medication. Hold anticoagulation in preparation for surgery. Will need to restart anticoagulation therapy after surgery. Compliance will need to be enforced. Diabetes mellitus type 2-insulin dependent: Will check A1c. Continue Accu-Cheks and sliding scale. Depression with anxiety/BPD/schizophrenia: Restart Depakote. GERD: Continue with Protonix. Hypertension: Medications adjusted. Discontinue carvedilol since the patient is already on a beta-blockermetoprolol. Will discontinue losartan due to chronic renal disease. Continue Norvasc and metoprolol. Will monitor and adjust appropriately. Anemia chronic disease: Stable, will monitor daily labs. Transfuse to maintain hemoglobin greater than 7.5. History of CVA: Review and restart home medication Hyperlipidemia: Restart home medication. BPH: Continue with Flomax CODE STATUS: Full code DVT prophylaxis: SCD Advance care planning: Home at discharge
--- NOTE | 2020-12-05 11:29 | PN ---
Date of Progress Note: 12/05/2020 The patient seen and evaluated in room 228. Subjective: The patient is alert, awake and comfortable. He states that he is a bit upset because le cole got angry at some of the staff earlier in the morning. He says he does not mean to do that, but so metimes that happens. He states that he is apologetic and will try not to do it again. He states th at he does understand you should think before you speak and he should not be yelling at people. He s eemed to be very pleasant. He was just volunteering this information to me and stated that he is oth erwise feeling okay except for the pain in his left lower extremity, which seems to be reasonably con trolled right now. He has been on medications for that and on antibiotics as well recently for an os teomyelitis. He has had surgery done in his left lower extremity with left 2nd toe gangrene and oste omyelitis. He was operated on yesterday by Dr. Parra. The area was irrigated. He has had hemost asis there. He had the right intermetatarsal head of the left 2nd toe incision done and the toe was amputated with a sharp knife leaving some skin behind. This is all documented in the detailed operat geri note by Dr. Segovia. Objective: Vital signs: The patient's vitals show blood pressure 141/80, pulse is about 70 and regu lar, respirations around 14 to 16. He is comfortable. O2 sats are 99% on room air. His pain level has been between 4 and 8. On my evaluation, currently seems to be comfortable. Lungs: Clear to auscultation with decreased breath sounds at the very bases. Abdomen: Soft. Extremities: Do reveal trace edema. Medications: Reviewed. The patient is currently on amlodipine 10 mg. He is on low-dose hydralazine 25 mg p.o. b.i.d. with holding parameters. He is on isosorbide. He is on metoprolol. He is on nit roglycerin p.r.n. He is getting some IV fluids postoperative, but he is currently doing well with hi s p.o. intake. He is also on cefepime for antibiotics. He is on tramadol for pain p.r.n. Lab Data: Reviewed. Labs with WBC 3.9, hemoglobin 8.5, hematocrit 25, platelet count of 268. Chemi stry shows sodium 140, potassium slightly elevated at 5.3, chloride 109, bicarb is 26, BUN is 37, cre atinine is 2.15, calcium level 7.9, magnesium 1.7. Assessment And Plan: The patient with status post amputation of the toe on the left foot, osteomyeli tis, chronic kidney disease with creatinine about 2 range, question use of some NSAIDs recently. His potassium is slightly elevated today at 5.3. He has been eating and drinking well now. His magnesi um is slightly on the lower side. Calcium is slightly on the lower side. Albumin is also low and co rrected calcium is close to normal. At this point, the patient has gotten ergocalciferol ordered. Le cole has had magnesium replacement. We will give him another dose today. He has had a slight elevation of his potassium. We will give him a dose of Lasix and Kayexalate today. He will need some physica l therapy and wound care for his left lower extremity. I advised him not to take any NSAIDs and over -the-counter pain medications. I have also advised this to his parents to watch over him for that. Needs to follow up with Podiatry and for wound care going forward and will need further evaluation fo r CKD monitoring and going forward in clinic to ascertain his current status of CKD. The patient's v olume status seems to be improving, close to euvolemic. He is eating and drinking well. One dose of Lasix today and then further monitoring going forward. Since he is eating and drinking well, we tha l go ahead and discontinue his IV fluids. His blood pressures are stable on current medications. Co ntinue to monitor. /PER Voice ID: [id number] Report ID: [id number]
[2020-12-05] MEDS: DIVALPROEX DR 500MG TAB PO SCH (20:13)
[2020-12-06] MEDS: CEFEPIME/SWI 1gm 10 ML IVP SCH (00:29)
[2020-12-06] MEDS: TRAMADOL HCL 50 MG TAB PO PRN (00:32)
[2020-12-06] MEDS: HYDROCODONE/APAP 10/325 TAB PO PRN ×2 (01:46→12:04)
[2020-12-06 02:39] VITALS: O2SAT 97
[2020-12-06] MEDS: MORPHINE 4 MG/ML SYR IV PRN ×3 (03:17→14:32)
[2020-12-06 04:25] LABS: Absolute Lymphocytes (CBC) 1.3 K/uL (0.7-4.9); Basophils % 0.5 % (0-1.3); Hematocrit 23.7 % (39.6-49.0); MPV 8.4 fL (7.6-11.3)
[2020-12-06 04:52] LABS: Albumin 2.2 g/dL (3.4-5.0); Bilirubin Total 0.2 mg/dL (0.2-1.0); Magnesium 1.7 mg/dL (1.8-2.4); Potassium 4.9 mmol/L (3.5-5.1)
[2020-12-06] MEDS: PANTOPRAZOLE 40MG TABLET PO SCH (05:42)
[2020-12-06] MEDS: INSULIN -REGULAR HUMAN 50 UNIT/0.5 ML ML SQ SCH ×2 (07:30→11:30)
[2020-12-06] MEDS: AMLODIPINE 10 MG TAB PO SCH (08:47)
[2020-12-06] MEDS: ATORVASTATIN 40 MG TAB PO SCH (08:47)
[2020-12-06] MEDS: TAMSULOSIN 0.4 MG SR CAP PO SCH (08:47)
[2020-12-06] MEDS: METOPROLOL TAR 50 MG TAB PO SCH (08:48)
[2020-12-06] MEDS: ISOSORBIDE MONO SR 30 MG TAB PO SCH (08:48)
[2020-12-06] MEDS: HYDRALAZINE HCL 25 MG TABLET PO SCH (08:48)
[2020-12-06] MEDS: APIXABAN 5 MG TABLET PO SCH (08:48)
--- NOTE | 2020-12-06 09:10 | P.PN ---
Date of Service: 12/06/20 Vital Signs Temp Pulse Resp BP Pulse Ox 98.2 F 80 18 142/70 H 92 12/06/20 04:00 12/06/20 08:48 12/06/20 08:46 12/06/20 08:48 12/06/20 08:46 Medications Hydrocodone Bitart/Acetaminophen (Hydrocodone/Apap 10/325 Tab) 1 tab PO Q6H PRN PRN Reason: Pain scale 5-7 (Moderate) Last Admin: 12/06/20 01:46 Dose: 1 tab Documented by: Amlodipine Besylate (Amlodipine 10 Mg Tab) 10 mg PO DAILY [facility] Last Admin: 12/06/20 08:47 Dose: 10 mg Documented by: Apixaban (Apixaban 5 Mg Tablet) 5 mg PO BID [facility] Last Admin: 12/06/20 08:48 Dose: 5 mg Documented by: Atorvastatin Calcium (Atorvastatin 40 Mg Tab) 40 mg PO DAILY [facility] Last Admin: 12/06/20 08:47 Dose: 40 mg Documented by: Dextrose (D50w 25 Gm/50 Ml Syringe) 12.5 gm IV PRN PRN; Protocol PRN Reason: HYPOGLYCEMIA Divalproex Sodium (Divalproex Dr 500mg Tab) 1,500 mg PO BEDTIME [facility] Last Admin: 12/05/20 20:13 Dose: 1,500 mg Documented by: Glucagon (Glucagon 1 Mg/Vial) 1 mg IM 1X PRN; Protocol PRN Reason: HYPOGLYCEMIA Hydralazine HCl (Hydralazine Hcl 25 Mg Tablet) 25 mg PO BID [facility] Last Admin: 12/06/20 08:48 Dose: 25 mg Documented by: Cefepime HCl (Maxipime 1 Gm/10 Ml Ivp) 10 mls @ 120 mls/hr IVP Q24H [facility] Last Admin: 12/06/20 00:29 Dose: 10 mls Documented by: Heparin Sodium/Dextrose (Heparin Drip 25,000 Units/5oo Ml Premix) 25,000 unit in 500 mls @ 36 mls/hr IV UD PRN; Protocol PRN Reason: HEPARIN PROTOCOL Last Admin: 12/04/20 07:04 Dose: 500 mls Documented by: Insulin Human Regular (Insulin -Regular Human 50 Unit/0.5 Ml Ml) 0 unit SQ ACHS JACINTA; Protocol Last Admin: 12/06/20 07:30 Dose: Not Given Documented by: Isosorbide Mononitrate (Isosorbide [place] Sr 30 Mg Tab) 30 mg PO DAILY [facility] Last Admin: 12/06/20 08:48 Dose: 30 mg Documented by: Metoprolol Tartrate (Metoprolol Tar 50 Mg Tab) 50 mg PO BID [facility] Last Admin: 12/06/20 08:48 Dose: 50 mg Documented by: Morphine Sulfate (Morphine 4 Mg/Ml Syr) 4 mg IV Q4H PRN PRN Reason: Pain scale 5-7 (Moderate) Last Admin: 12/06/20 08:46 Dose: 4 mg Documented by: Nitroglycerin (Nitroglycerin 0.4 Mg/Tab) 0.4 mg SL SEECOM PRN PRN Reason: Pain scale 2-4 (Mild) Ondansetron HCl (Ondansetron 4 Mg/2 Ml Vial) 4 mg IV Q6HP PRN PRN Reason: NAUSEA / VOMITING Pantoprazole Sodium ([facility]raz[facility] 40mg Tablet) [facility]; Protocol Last Admin: 12/06/20 05:42 Dose: 40 mg Documented by: Sodium Chloride (Flush Normal Saline 10 Ml) 10 ml IV BID [facility] Last Admin: 12/06/20 08:49 Dose: 10 ml Documented by: Tamsulosin HCl (Tamsulosin 0.4 Mg Sr Cap) 0.4 mg PO DAILY [facility] Last Admin: 12/06/20 08:47 Dose: 0.4 mg Documented by: Tramadol HCl (Tramadol Hcl 50 Mg Tab) 50 mg PO Q6H PRN PRN Reason: Pain scale 2-4 (Mild) Last Admin: 12/06/20 00:32 Dose: 50 mg Documented by: Microbiology Results 12/02/20 19:57 Blood - Blood Aerobic Blood Culture - Preliminary No growth in 24 hours. 12/02/20 19:57 Blood - Blood Anaerobic Blood Culture - Preliminary No growth in 24 hours. 12/02/20 19:42 Blood - Blood Aerobic Blood Culture - Preliminary No growth in 24 hours. 12/02/20 19:42 Blood - Blood Anaerobic Blood Culture - Preliminary No growth in 24 hours. Assessment/ Plan: Nephrology Pain in the Left foot. Fair appetite. CPS stable without CP or SOB. No acute events overnight Vitals, medications, blood work and imaging reviewed in the chart. NAD. Neck supple. CTA. RRR. Soft Abd. No C/C/E. No rash. AAO. LLE Edema 1-2+. Left foot wound. A/P Continue the current POC and Medications other than the changes below. LISBETH improving CKD III with proteinuria -No NSAIDs Hyperkalemia -Kayexalate 15g X1 dose today Hypocalcemia -Start Vitamin D Hypomagnesemia -Replete IV mag prn -Start MagOx qhs HTN -Continue Amlodipine -Continue Metoprolol DM II with CKD, Polyneuropathy & Hyperglycemia -RISS Moderate malnutrition -Encourage nutrition Anemia in chronic illness -Monitor H&H -Transfuse PRBC as needed BPH with LUTS -Continue Flomax Second left toe osteomyelitis sp amputation Acute Pain -Continue Cefepime -ID following
[2020-12-06] MEDS ORDERED: SOD POLYSTYREN SUL 15 GM/60 ML UCUP PO ONE (09:44)
[2020-12-06 10:09] LABS: Phosphorus 3.6 mg/dL (2.5-4.9); Uric Acid 6.2 mg/dL (3.5-7.2)
--- NOTE | 2020-12-06 11:50 | P.PN ---
Subjective Date of Service: 12/06/20 Primary Care Provider: Joel presley Chief Complaint: Acute renal failure, hyperkalemia, osteomyelitis Patient seen examined at bedside, wounds observed. As nurse's Re wrapping of the patient's foot he stated he is in severe pain and was requesting pain me dication. However patient had just received IV morphine of hr ago. Review of Systems 10-point ROS is otherwise unremarkable Physical Examination - Vital Signs Temperature: 98.2 F Blood Pressure: 142/70 Pulse: 80 Respirations: 18 Pulse Ox (%): 92 - Studies Laboratory Last Values WBC 5.80 K/uL (4.3-10.9) 12/02/20 19:42 RBC 3.07 M/uL (4.33-5.43) L 12/02/20 19:42 Hgb 9.3 g/dL (13.6-17.9) L 12/02/20 19:42 Hct 26.9 % (39.6-49.0) L 12/02/20 19:42 MCV 87.7 fL (80-100) D 12/02/20 19:42 MCH 30.2 pg (27.0-35.0) 12/02/20 19:42 MCHC 34.4 g/dL (32.0-36.0) 12/02/20 19:42 RDW 14.3 % (12.1-15.2) 12/02/20 19:42 Plt Count 304 K/uL (152-406) 12/02/20 19:42 MPV 8.7 fL (7.6-11.3) 12/02/20 19:42 Neutrophils % 72.5 % (41.7-73.7) 12/02/20 19:42 Lymphocytes % 13.7 % (15.3-44.8) L 12/02/20 19:42 Monocytes % 12.5 % (3.3-12.3) H 12/02/20 19:42 Eosinophils % 1.1 % (0-4.4) 12/02/20 19:42 Basophils % 0.2 % (0-1.3) 12/02/20 19:42 Absolute Neutrophils 4.2 K/uL (1.8-8.0) 12/02/20 19:42 Absolute Lymphocytes 0.8 K/uL (0.7-4.9) 12/02/20 19:42 Absolute Monocytes 0.7 K/uL (0.1-1.3) 12/02/20 19:42 Absolute Eosinophils 0.1 K/uL (0-0.5) 12/02/20 19:42 Absolute Basophils 0.0 K/uL (0-0.5) 12/02/20 19:42 PT 14.9 SECONDS (9.5-12.5) H 12/02/20 19:42 INR 1.29 12/02/20 19:42 Sodium 133 mmol/L (136-145) L 12/02/20 19:42 Potassium 5.9 mmol/L (3.5-5.1) H* 12/02/20 19:42 Chloride 103 mmol/L (98-107) 12/02/20 19:42 Carbon Dioxide 26 mmol/L (21-32) 12/02/20 19:42 BUN 44 mg/dL (7-18) H 12/02/20 19:42 Creatinine 2.27 mg/dL (0.55-1.3) H 12/02/20 19:42 Estimated GFR 30 mL/min (=/>90) L 12/02/20 19:42 Glucose 170 mg/dL (74-106) H 12/02/20 19:42 Lactic Acid 0.9 mmol/L (0.4-2.0) 12/02/20 19:42 Calcium 8.6 mg/dL (8.5-10.1) 12/02/20 19:42 Magnesium 1.5 mg/dL (1.8-2.4) L 12/02/20 19:42 Total Bilirubin 0.2 mg/dL (0.2-1.0) 12/02/20 19:42 Direct Bilirubin < 0.1 mg/dL (0-0.2) 12/02/20 19:42 AST 12 U/L (15-37) L 12/02/20 19:42 ALT 17 U/L (12-78) 12/02/20 19:42 Alkaline Phosphatase 124 U/L (45-117) H 12/02/20 19:42 Rapid Troponin I < 0.02 ng/mL (0.0-0.045) 12/02/20 19:42 NT-Pro-B Natriuret Pep 1579 pg/mL (<125) H 12/02/20 19:42 Serum Total Protein 7.6 g/dL (6.4-8.2) 12/02/20 19:42 Albumin 2.5 g/dL (3.4-5.0) L 12/02/20 19:42 Globulin 5.1 g/dL (2.3-3.5) H 12/02/20 19:42 Albumin/Globulin Ratio 0.5 (1.1-1.8) L 12/02/20 19:42 Medications List Reviewed: Yes Assessment And Plan - Plan Physical exam: General: Alert, In no apparent distress, Oriented x3 HEENT: Atraumatic, Normocephalic, Abnormal EOM Neck: Supple, 2+ carotid pulse no bruit Respiratory: Clear to auscultation bilaterally, Normal air movement Cardiovascular: No edema Gastrointestinal: Normal bowel sounds, Hypoactive, Soft and benign Musculoskeletal: No clubbing, No swelling Integumentary: Other (Left foot callus at head of 1st metatarsal. Right 2nd toe amputation site: wound left open, minimal depth. Periwound tissue shows no sign of infection. ) Conclusions/Impression: Antibiotics: Cefepime Start: 12/03 stop: -- DC: Vancomycin Start: 12/04 stop: 12/05 Assessment: -osteomyelitis of the left 2nd toe. Callus to head of first metatarsal -diabetes mellitus uncontrolled -leukopenia -anemia -Protein caloric malnutrition -PAD and PVD -CKD stage 3 -bipolar and schizophrenia Plan: -left foot x-ray performed on 12/02 showed: : "Fracture of the left second proximal phalanx suspected to be osteomyelitis pathologic fracture. Significant soft tissue swelling is present around the second toe. Overall significant soft tissue swelling of the left ankle and foot. No air or foreign body in the soft tissues." -patient underwent left 2nd toe amputation on 12/05. Wound care orders per Dr. Parra. -wound cultures grew Pseudomonas aeruginosa. Vancomycin discontinued it, continue cefepime a for 3-5 days. Can switch to short course of oral antibiotic therapy for discharge. Long-term antibiotic therapy not needed as infected bone was removed. For discharge recommend oral doxycycline 100 mg b.i.d. for 7 days. -To callus on left foot 1st metatarsal: Apply DuoDerm. -patient will need to follow up closely with wound care. -patient has several risk factors for decreased wound healing including: Uncontrolled diabetes, peripheral arterial disease, peripheral vascular disease, CKD, protein caloric malnutrition, and anemia Medical management per primary team Continue monitor CBC and BMP Plan of care discussed Dr. Hernandez Thank you for consultation.
--- NOTE | 2020-12-06 12:40 | P.PN ---
Date of Service: 12/05/20 Subjective Patient is doing better. He is little more lethargic any is complaining of pain, the wound is closed and should be healing well. He should be stable for discharge home in the morning. I have spoken to him but he is still very sleepy. Review of Systems 10-point ROS is otherwise unremarkable Physical Examination - Vital Signs Temperature: 97.4 F Blood Pressure: 144/90 Pulse: 63 Respirations: 18 Pulse Ox (%): 96 - Physical Exam General: Alert, In no apparent distress, Oriented x3 Respiratory: Clear to auscultation bilaterally, Normal air movement Cardiovascular: Regular rate/rhythm, Normal S1 S2, Systolic murmur Gastrointestinal: Normal bowel sounds, Soft and benign, Non-distended, No tenderness Musculoskeletal: No clubbing, No tenderness Neurological: Sensation intact, Cranial nerves 3-12 intact Assessment & Plan - Problems (Diagnosis) (1) Osteomyelitis of second toe of left foot Current Visit: Yes Status: Acute (2) Bipolar disorder Onset Date: 01/02/15 Current Visit: No Status: Chronic Qualifiers: (3) Claustrophobia Current Visit: No Status: Chronic (4) Diabetes mellitus Onset Date: 04/24/15 Current Visit: No Status: Chronic Qualifiers: Diabetes mellitus type: type 2 Diabetes mellitus alf insulin use: with paste worker use Diabetes mellitus complication status: with neurologic complications Diabetes mellitus complication detail: with polyneuropathy Qualified Code(s): E11.42 - Type 2 diabetes mellitus with diabetic polyneuropathy; 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 Continue with IV antibiotic 2. Continue with local wound care 3. Wound care consultation/surgical consultation appreciated; patient clear for discharge from surgical standpoint 4. Gentle IV hydration 5. Monitor CBC 6. Strict blood sugar monitoring 7. Pain control 8. Physical therapy evaluation to get patient out of bed and ambulate after his amputation 9. GI and DVT prophylaxis
[2020-12-06] MEDS ORDERED: MAGNESIUM OXIDE 400 MG TAB PO SCH (21:00)
[2020-12-07] MEDS ORDERED: VITAMIN D 5,000 UNIT CAP PO SCH (09:00)
[2020-12-07] MEDS ORDERED: CALCITROL 0.25 MCG CAP PO SCH (09:00)
[2020-12-11 03:22] VITALS: BP 144/90; TEMP 97.4
--- NOTE | 2020-12-11 03:25 | P.DS ---
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 Diabetes mellitus complication status: with neurologic complications Diabetes mellitus complication detail: with polyneuropathy Qualified Code(s): E11.42 - Type 2 diabetes mellitus with diabetic polyneuropathy; 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 Patient evaluated in the emergency department, labs significant for hemoglobin 9.3 hematocrit 46.9 potassium 5.9 sodium 133 BUN 44 creatinine 2.27 GFR 30 glucose 170 magnesium 1.5 BNP 1579 lactic acid 0.9 chest x-ray unremarkable x-ray of left foot suggest possible pathological fracture related to osteomyelitis of the left 2nd toe. 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 Patient very poor historian. ED provider wishes to admit for acute kidney injury superimposed on CKD, hyperkalemia, suspected osteomyelitis. Hospital Course: Patient is clinically doing much better. At this time, patient is stable for discharge. Patient had amputation and the toe was closed. Patient's neurologic status is stable. At this time patient is stable for discharge home. Vital Signs/Physical Exam: Temp Pulse Resp BP Pulse Ox 97.4 F 63 18 144/90 H 96 12/11/20 03:22 12/11/20 03:22 12/11/20 03:22 12/11/20 03:22 12/11/20 03:22 General: Alert, In no apparent distress, Oriented x3 Laboratory Data at Discharge: WBC 5.50 K/uL (4.3-10.9) D 12/06/20 04:01 Hgb 8.1 g/dL (13.6-17.9) L 12/06/20 04:01 Hct 23.7 % (39.6-49.0) L 12/06/20 04:01 Plt Count 257 K/uL (152-406) 12/06/20 04:01 PT 14.2 SECONDS (9.5-12.5) H 12/03/20 14:24 INR 1.23 12/03/20 14:24 APTT 56.4 SECONDS (24.3-36.9) H 12/04/20 05:49 Sodium 138 mmol/L (136-145) 12/06/20 04:01 Sodium Cancelled 12/06/20 04:01 Potassium 4.9 mmol/L (3.5-5.1) 12/06/20 04:01 Potassium Cancelled 12/06/20 04:01 BUN 41 mg/dL (7-18) H 12/06/20 04:01 BUN Cancelled 12/06/20 04:01 Creatinine 1.89 mg/dL (0.55-1.3) H 12/06/20 04:01 Creatinine Cancelled 12/06/20 04:01 Glucose 236 mg/dL (74-106) H 12/06/20 04:01 Glucose Cancelled 12/06/20 04:01 Uric Acid 6.2 mg/dL (3.5-7.2) 12/06/20 04:01 Phosphorus 3.6 mg/dL (2.5-4.9) 12/06/20 04:01 Magnesium 1.7 mg/dL (1.8-2.4) L 12/06/20 04:01 Magnesium Cancelled 12/06/20 04:01 Total Bilirubin 0.2 mg/dL (0.2-1.0) 12/06/20 04:01 Total Bilirubin Cancelled 12/06/20 04:01 AST 19 U/L (15-37) 12/06/20 04:01 AST Cancelled 12/06/20 04:01 ALT 18 U/L (12-78) 12/06/20 04:01 ALT Cancelled 12/06/20 04:01 Alkaline Phosphatase 159 U/L (45-117) H 12/06/20 04:01 Alkaline Phosphatase Cancelled 12/06/20 04:01 Home Medications: Apixaban [Eliquis] 1 tab PO BID 12/01/19 Divalproex Sodium [Depakote] 3 tab PO BEDTIME 12/01/19 Losartan Potassium [Cozaar*] 1 tab PO DAILY 12/01/19 Metoprolol Tartrate [Lopressor*] 1 tab PO BID 12/01/19 Tramadol HCl [Ultram] 1 tab PO BID 12/01/19 Atorvastatin Calcium [Lipitor] 40 mg PO DAILY 03/05/20 Amlodipine [Norvasc*] 10 mg PO DAILY 12/03/20 Carvedilol [Coreg] 12.5 mg PO BID 12/03/20 Isosorbide Mononitrate [Isosorbide Mononitrate ER] 30 mg PO DAILY 12/03/20 Nitroglycerin 0.4 mg SL SEECOM 12/03/20 Pantoprazole [Protonix Tab*] 40 mg PO DAILY 12/03/20 Tamsulosin [Flomax*] 0.4 mg PO DAILY 12/03/20 Calcitrol [Rocaltrol*] 0.5 mcg PO DAILY #30 cap 12/06/20 Hydralazine [Apresoline*] 25 mg PO BID #60 tab 12/06/20 Hydrocodone 10/APAP 325 [[place] 10/325*] 1 tab PO BID #20 tab 12/06/20 Minocycline HCl 100 mg PO BID #14 capsule 12/06/20 Sulfamethoxazole/Trimethoprim [Bactrim Ds Tablet] 1 each PO DAILY #7 tablet 12/06/20 New Medications: Hydralazine [Apresoline*] 25 mg PO BID #60 tab Sulfamethoxazole/Trimethoprim [Bactrim Ds Tablet] 1 each PO DAILY #7 tablet Minocycline HCl 100 mg PO BID #14 capsule Hydrocodone 10/APAP 325 [[place] 10/325*] 1 tab PO BID #20 tab Calcitrol [Rocaltrol*] 0.5 mcg PO DAILY #30 cap Diet: ADA Activity: Fall precautions Followup: Robson Parra MD [ACTIVE - CAN ADMIT] - Unknown,U [Primary Care Provider] - Time spent managing pt's care (in minutes): 35
== END 2020-12-06 17:41 | disposition home health service (06) | DRG 617 ==
LOC: ER 19:00 → ERHOLD 21:19 → 2ND 23:22
PROVIDERS: ADMIT Family Medicine; ATTEND Family Medicine
PROC: 0Y6S0Z0 Detachment at Left 2nd Toe, Complete, Open Approach (ICD-10-PCS; principal; 2020-12-04 13:45)
DX: E11.69 Type 2 diabetes mellitus with other specified complication (principal); M86.172 Other acute osteomyelitis, left ankle and foot; E44.0 Moderate protein-calorie malnutrition; E11.52 Type 2 diabetes mellitus with diabetic peripheral angiopathy with gangrene; I96 Gangrene, not elsewhere classified; M84.675A Pathological fracture in other disease, left foot, initial encounter for fracture; E11.65 Type 2 diabetes mellitus with hyperglycemia; B96.5 Pseudomonas (aeruginosa) (mallei) (pseudomallei) as the cause of diseases classified elsewhere; L84 Corns and callosities; Z68.31 Body mass index [BMI] 31.0-31.9, adult; I12.9 Hypertensive chronic kidney disease with stage 1 through stage 4 chronic kidney disease, or unspecified chronic kidney disease; E11.22 Type 2 diabetes mellitus with diabetic chronic kidney disease; N18.30 Chronic kidney disease, stage 3 unspecified; F20.9 Schizophrenia, unspecified; F31.9 Bipolar disorder, unspecified; F40.240 Claustrophobia; E11.40 Type 2 diabetes mellitus with diabetic neuropathy, unspecified; M19.90 Unspecified osteoarthritis, unspecified site; E87.5 Hyperkalemia; E83.51 Hypocalcemia; E83.42 Hypomagnesemia; D63.8 Anemia in other chronic diseases classified elsewhere; N40.1 Benign prostatic hyperplasia with lower urinary tract symptoms; N17.9 Acute kidney failure, unspecified; Z91.14 Patient's other noncompliance with medication regimen; I82.402 Acute embolism and thrombosis of unspecified deep veins of left lower extremity; Z86.73 Personal history of transient ischemic attack (TIA), and cerebral infarction without residual deficits; Z20.822 Contact with and (suspected) exposure to COVID-19
CPT/HCPCS: 36415; 71045; 76770; 78452; 80048; 80053; 80076; 80164; 80202; 81001; 81003; 81015; 82140; 82947; 83036; 83605; 83735; 83880; 84100; 84132; 84443; 84484; 84550; 85025; 85610; 85730; 87040; 87070; 87077; 87186; 87205; 88305; 88311; 93005; 93017; 93306; 93971; 96374; 96375; 97116; 97161; 97530; 99285; A9500; J0610; J0692; J1644; J1940; J2250; J2270; J2405; J2704; J2785; J3370; J3475; J7030; J7040; J7050; U0003

== ENCOUNTER 2021-01-17 15:40 | Emergency (ER) | payer OTHER ==
[2012-03-01 14:49] VITALS: BP 148/79
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
--- NOTE | 2021-01-17 16:52 | ER ---
Nurse's Notes [facility] Name: Gasper Fry Age: 60 yrs Sex: Male : 1960 Arrival Date: 01/17/2021 Time: 15:41 Bed Waiting Private MD: Diagnosis: Presentation: 01/17 15:45 Chief complaint: EMS states: Toned out for shortness of breath, O2 96% on arrival, 70 jl7 HR, 97.4 temp, BP within normal limits; patient asked before departing his residence if he should go in and we are not allowed to tell patients one way or another. Pt put in lobby awaiting triage. 15:45 Method Of Arrival: EMS: [facility] jl7 ED Course: 15:41 Patient arrived in ED. as 16:30 Patient's name was called from ER lobby. No response. Unable to locate patient. Will jl7 disposition as left without being seen by a provider. Administered Medications: No medications were administered Outcome: 16:52 Patient left the ED. jl7 Signatures: Mary Parra Jahala, RN RN jl7
== END 2021-01-17 16:52 | disposition left against medical advice (07) ==
LOC: ER 15:40
DX: Z53.21 Procedure and treatment not carried out due to patient leaving prior to being seen by health care provider (principal)
CPT/HCPCS: 99282

== ENCOUNTER 2021-08-03 17:13 | Emergency (ER) | payer OTHER ==
--- OUTSIDE RECORDS SUMMARY | 2021-08-03 17:17 | XMS REPORT | Clinical Summary ---
:1960 Author Organization [facility] MD [facility] Address [address] [place] [address] Care Team Providers Name Role Phone Unavailable Primary Care Provider Unavailable Allergies No known active allergies Medications Medication Sig Dispensed Refills Start Date End Date Status benztropine (COGENTIN) Take 0.5 mg by 0 Active 0.5 mg tablet mouth twice daily. HYDROcodone-acetaminop Take 1 tablet by 0 Active hen (NORCO) 10 mg-325 mouth 3 (three) mg per tablet times a day. methocarbamol Take 1 tablet (500 90 tablet 0 12/24/2018 Active (ROBAXIN) 500 mg mg) by mouth every tabletIndications: 8 (eight) hours. Chronic pain apixaban (ELIQUIS) 5 Take 5 mg by mouth 0 Active mg tabletIndications: twice daily. deep venous thrombosis losartan (COZAAR) 25 Take 1 tablet (25 30 tablet 1 12/25/2018 Active mg tabletIndications: mg) by mouth Diabetes mellitus, daily. Renal insufficiency, Altered mental status, Seizure, Schizophrenia, Bronchitis, Patient noncompliance - general, Personal history of stroke, Diabetic foot, Hypomagnesemia, Chronic pain, Hyperglycemia, not otherwise specified, Type 2 diabetes mellitus with foot ulcer, Hypertension, Acute embolism and thrombosis of unspecified deep veins of lower extremity, bilateral, not otherwise specified, Unspecified Delirium, O/E - Left diabetic foot - ulcerated, Chronic pain of left foot, History of amputation of left great toe, Chronic pain of right foot metoprolol tartrate Take 1 tablet (25 60 tablet 1 12/25/2018 Active (LOPRESSOR) 25 mg mg) by mouth twice tabletIndications: daily. Diabetes mellitus, Renal insufficiency, Altered mental status, Seizure, Schizophrenia, Bronchitis, Patient noncompliance - general, Personal history of stroke, Diabetic foot, Hypomagnesemia, Chronic pain, Hyperglycemia, not otherwise specified, Type 2 diabetes mellitus with foot ulcer, Hypertension, Acute embolism and thrombosis of unspecified deep veins of lower extremity, bilateral, not otherwise specified, Unspecified Delirium, O/E - Left diabetic foot - ulcerated, Chronic pain of left foot, History of amputation of left great toe, Chronic pain of right foot risperiDONE Take 1 tablet (4 30 tablet 12/25/2018 Active (RisperDAL) 4 mg mg) by mouth at tabletIndications: bedtime. Diabetes mellitus, Renal insufficiency, Altered mental status, Seizure, Schizophrenia, Bronchitis, Patient noncompliance - general, Personal history of stroke, Diabetic foot, Hypomagnesemia, Chronic pain, Hyperglycemia, not otherwise specified, Type 2 diabetes mellitus with foot ulcer, Hypertension, Acute embolism and thrombosis of unspecified deep veins of lower extremity, bilateral, not otherwise specified, Unspecified Delirium, O/E - Left diabetic foot - ulcerated, Chronic pain of left foot, History of amputation of left great toe, Chronic pain of right foot cadexomer iodine Apply topically to 40 g 12/26/2018 Active (IODOSORB) 0.9% affected area(s) gelIndications: every other day. Diabetes mellitus, Renal insufficiency, Altered mental status, Seizure, Schizophrenia, Bronchitis, Patient noncompliance - general, Personal history of stroke, Diabetic foot, Hypomagnesemia, Chronic pain, Hyperglycemia, not otherwise specified, Type 2 diabetes mellitus with foot ulcer, Hypertension, Acute embolism and thrombosis of unspecified deep veins of lower extremity, bilateral, not otherwise specified, Unspecified Delirium, O/E - Left diabetic foot - ulcerated, Chronic pain of left foot, History of amputation of left great toe, Chronic pain of right foot collagenase (SANTYL) Apply topically to 15 g 12/25/2018 Active ointmentIndications: affected area(s) Diabetes mellitus, daily. Renal insufficiency, Altered mental status, Seizure, Schizophrenia, Bronchitis, Patient noncompliance - general, Personal history of stroke, Diabetic foot, Hypomagnesemia, Chronic pain, Hyperglycemia, not otherwise specified, Type 2 diabetes mellitus with foot ulcer, Hypertension, Acute embolism and thrombosis of unspecified deep veins of lower extremity, bilateral, not otherwise specified, Unspecified Delirium, O/E - Left diabetic foot - ulcerated, Chronic pain of left foot, History of amputation of left great toe, Chronic pain of right foot polyethylene glycol Take 17 g by mouth 14 each 0 12/25/2018 Active (MIRALAX) 17 g daily. Can get packetIndications: over the counter Diabetes mellitus, Renal insufficiency, Altered mental status, Seizure, Schizophrenia, Bronchitis, Patient noncompliance - general, Personal history of stroke, Diabetic foot, Hypomagnesemia, Chronic pain, Hyperglycemia, not otherwise specified, Type 2 diabetes mellitus with foot ulcer, Hypertension, Acute embolism and thrombosis of unspecified deep veins of lower extremity, bilateral, not otherwise specified, Unspecified Delirium, O/E - Left diabetic foot - ulcerated, Chronic pain of left foot, History of amputation of left great toe, Chronic pain of right foot senna-docusate Take 2 tablets by 0 12/25/2018 Active (SENOKOT-S) 8.6 mg-50 mouth twice daily. mg tabletIndications: Can get over the Diabetes mellitus, counter Renal insufficiency, Altered mental status, Seizure, Schizophrenia, Bronchitis, Patient noncompliance - general, Personal history of stroke, Diabetic foot, Hypomagnesemia, Chronic pain, Hyperglycemia, not otherwise specified, Type 2 diabetes mellitus with foot ulcer, Hypertension, Acute embolism and thrombosis of unspecified deep veins of lower extremity, bilateral, not otherwise specified, Unspecified Delirium, O/E - Left diabetic foot - ulcerated, Chronic pain of left foot, History of amputation of left great toe, Chronic pain of right foot divalproex (DEPAKOTE) Take 3 tablets 90 tablet 1 12/25/2018 Active 250 mg 24 hr (750 mg) by mouth tabletIndications: at bedtime. Diabetes mellitus, Renal insufficiency, Altered mental status, Seizure, Schizophrenia, Bronchitis, Patient noncompliance - general, Personal history of stroke, Diabetic foot, Hypomagnesemia, Chronic pain, Hyperglycemia, not otherwise specified, Type 2 diabetes mellitus with foot ulcer, Hypertension, Acute embolism and thrombosis of unspecified deep veins of lower extremity, bilateral, not otherwise specified, Unspecified Delirium, O/E - Left diabetic foot - ulcerated, Chronic pain of left foot, History of amputation of left great toe, Chronic pain of right foot NOVOLIN 70/30 U-100 Inject 35 units 10 mL 0 12/25/2018 Active INSULIN 100 unit/mL before breakfast (70-30) and 20 units injectionIndications: before dinner. Type 2 diabetes HOLD if sugar is mellitus with foot less than 100 ulcer Active Problems Problem Noted Date Unspecified Delirium 12/22/2018 Overview: psych team on board O/E - Left diabetic foot - ulcerated 12/22/2018 Chronic pain of left foot 12/22/2018 History of amputation of left great toe 12/22/2018 Hypomagnesemia 12/22/2018 Hypertension 12/21/2018 Deep venous thrombosis 12/21/2018 Overview: Left LE DVT per venous Doppler US Altered mental status 08/11/2017 Hyperglycemia 06/16/2017 Type 2 diabetes mellitus with foot ulcer Renal insufficiency Chronic pain of right foot Surgical History Surgery Date Site/Laterality Comments TOE AMPUTATION Right Medical History Medical History Date Comments Psychosis Bipolar disorder Seizure Stroke Diabetes mellitus Myocardial infarction Social History Tobacco Use Types Packs/Day Years Used Date Current Some Day Smoker Smokeless Tobacco: Current User Sex Assigned at Date Recorded Not on file Obstetrics History Last Filed Vital Signs Not on file Plan of Treatment Health Maintenance Due Date Last Done Comments COVID-19 Vaccination (1) 1966 Results Not on fileafter 08/03/2020 Insurance Payer Benefit Plan / Subscriber ID Effective Phone Address T ype Group Dates MEDICARE MEDICARE PART A [id number] 2004-Pres [phone] [facility] Medicare AND B ent [id number] [place] [address] [place] [id number] 2018-Pres [address] Medicaid TRADITIONAL TR[employer]ITIONAL ent [id number] [place] [address] Advance Directives Code Status Date Activated Date Inactivated Comments Full Code 12/19/2018 10:01 AM 12/25/2018 1:04 PM
--- OUTSIDE RECORDS SUMMARY | 2021-08-03 17:19 | XMS REPORT | Continuity of Care Document ---
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 [id number] 12:09:00 Test Item Value Reference Range Interpretation Comments GLUBED (test code = 176 MG/DL 70-110 H Performe d by certified GLUBED) 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 [facility] BASIC METABOLIC [id number] 11:39:00 Test Item Value Reference Range Interpretation [...] 8.3 mg/dL 8.0-10.5 N CA) CBC W/AUTO [id number] 11:24:00 Test Item Value Reference Range Interpretation [...] DIFF REQUIRED (test code NO = MDIFF) [id number] 06:50:00 Test Item Value Reference Range Interpretation Comments GLUBED (test code = 192 MG/DL 70-110 H Performe d by certified GLUBED) 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0 N BASIC METABOLIC [id number] 13:50:00 Test Item Value Reference Range Interpretation [...] 8.7 mg/dL 8.0-10.5 N CA) CBC W/AUTO [id number] 13:19:00 Test Item Value Reference Range Interpretation [...] REQUIRED (test code = MDIFF) CBC W/AUTO [id number] 13:19:00 Test Item Value Reference Range Interpretation [...] DIFF REQUIRED (test code NO = MDIFF) [id number] 12:05:00 Test Item Value Reference Range Interpretation Comments GLUBED (test code = 209 MG/DL 70-110 H Performe d by certified GLUBED) 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 [facility] [id number] 08:16:00 Test Item Value Reference Range Interpretation Comments GLUBED (test code = 208 MG/DL 70-110 H Performe d by certified GLUBED) 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 [facility] [id number] 20:50:00 Test Item Value Reference Range Interpretation Comments GLUBED (test code = 232 MG/DL 70-110 H Performe d by certified GLUBED) 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 [facility] [id number] 18:45:00 Test Item Value Reference Range Interpretation Comments GLUBED (test code = 146 MG/DL 70-110 H Performe d by certified GLUBED) 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 [facility] - DUP LE ART [id number] 17:18:00 [facility] 1960 Sex: M Name: MARCOS RAMOS [facility] : 1960 Age/S: 60 / M [address] [place] [address] Unit #: [id number] Loc: [place] [address] Phys: Mark Alexander LATHMAKER Acct: [id number] Dis Date: Status: ADM IN PHONE #: [phone] Exam Date: 07/14/20201654 FAX #: [phone] Reason: bilat foot uclers EXAMS: CPT CODE: [id number] DUP LE ART ABHISHEK [address]326 Clinical Indication: Bilateral foot ulcers; Comparison: None TECHNIQUE: Bilateral lower extremity arterial Doppler evaluation without ABIs was performed with arce scale, color Doppler, and spectral Doppler evaluation. 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 SFA: Patent, triphasic waveform. Popliteal: Patent, triphasic waveform. Posterior tibial: Patent, triphasic waveform. Dorsalis pedis: Patent, triphasic waveform. LEFT LOWER EXTREMITY: WASH WORKER: Patent, triphasic waveform. SFA: Patent, biphasic waveform. Popliteal: Patent, triphasic waveform. Posterior tibial: Patent, biphasic waveform. Dorsalis pedis: Patent, triphasic waveform. IMPRESSION: Patent bilateral lower extremity arterial vasculature with multiphasic waveforms. SL: [id number] at 1718 Reported and signed by: Kuldeep Kuo M.D. PAGE 1 Signed Report (CONTINUED) Name: MARCOS RAMOS [facility] : 1960 Age/S: 60 / M [address] [place] [address] Unit #:[id number] Loc: [place] [address] Phys: Mark Alexander LATHMAKER Acct: [id number] Dis Date: Status: ADM IN PHONE #: [phone] Exam Date: 07/14/20201654 FAX #: [phone] Reason: bilat foot uclers EXAMS: CPT CODE: [id number] DUP LE ART ABHISHEK 76885 <Continued> CC: Judah Campuzano MD; Mark Alexander NP Technologist: Sherin Hudson RDMS(AB) Trnscb Date/Time: 07/14/2020 (1718) [email or web address] Orig Print D/T: S: 07/14/2020 (6488) Probe: PAGE 2 Signed Report- DUP VEIN [id number] 17:03:00 [facility] 1960 Sex: M Name: MARCOS RAMOS [facility] : 1960 Age/S: 60 / M [address] [place] [address] Unit #: [id number] Loc: [place] [address] Phys: Jocelynn Mehta LATHMAKER-C Acct: [id number] Dis Date: Status: ADM IN PHONE #: [phone] Exam Date: 07/14/2020 1655 FAX #: [phone] Reason: hx of DVT EXAMS: CPT CODE: [id number] DUP VEIN ABHISHEK [address] Clinical Indication: History of DVT, bilateral lower [...] Porfirio at 1702 hours on 07/14/2020. SL: [id number] at 1703 Reported and signed by: Kuldeep Kuo M.D. CC: Jocelynn Mehta; Judah Campuzano MD Technologist: MATHEUS Correia() Trnscb Date/Time: 07/14/2020 (1702) [email or web address] Orig Print D/T: S: 07/14/2020 (1096) Probe: PAGE 1 Signed [id number] 16:30:00 Test Item Value Reference Range Interpretation [...] APPROPRIATECLIN ICAL EUALUATIONS. - CTA CHEST FOR [id number] 16:24:00 [facility] 1960 Sex: M Name: MARCOS RAMOS [facility] : 1960 Age/S: 60 / M [address] [place] [address] Unit #: [id number] Loc: [place] [address] Phys: Jocelynn Mehta Acct: [id number] Dis Date: Status: ADM IN PHONE #: [phone] Exam Date: 07/14/2020 1553 FAX #: [phone] Reason: rule out PE, Hx of PE EXAMS: CPT CODE: [id number] [place] [address] Clinical Indication: History of PE. Shortness of [...] 4. Evidence of prior granulomatous process. SL: [id number] PAGE 1 Signed Report (CONTINUED) Name: MARCOS RAMOS [facility] : 1960 Age/S: 60 / M [address] [place] [address] Blvd Unit #: [id number] Loc: [place] [address] Phys: Jocelynn Mehta LATHMAKER-C Acct: [id number] Dis Date: Status: ADM IN PHONE #: [phone] Exam Date: 07/14/2020 1553 FAX #: [phone] Reason: rule out PE, Hx of PE EXAMS: CPT CODE: [id number] [place] [address] <Continued> at 1624 Reported and signed by: Kuldeep Kuo M.D. 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 [facility] LACTIC ACID 2ND [id number] 21:31:00 Test Item Value Reference Range Interpretation Comments LACTIC ACID 2ND REPEAT (test code 1.9 mmol/L 0.4-1.9 N = LACT2) [id number] 21:04:00 Test Item Value Reference Range Interpretation Comments GLUBED (test code = 224 MG/DL 70-110 H Performe d by certified GLUBED) 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 [facility] [id number] 19:23:00 Test Item Value Reference Range Interpretation [...] HGBA1C%) 11.2 %A1C 4.8-6.0 H LACTIC ACID [id number] 19:17:00 Test Item Value Reference Range Interpretation Comments LACTIC ACID REPEAT (test code = 2.3 mmol/l 0.4-1.9 H LACTR) UA RFLX MICR CULT IF [id number] 17:25:00 Test Item Value Reference Range Interpretation [...] culture: RiskForSepsis-no oth srcSpecimen Description: CLEAN CATCHLIPOPROTEIN [id number] 17:03:00 Test Item Value Reference Range Interpretation Comments LIPOPROTEIN LDL 165.8 mg/dL 0-100 H <100 OPT [id number] (test code = LDL) NEAR OPTI MAL/ABOVE [id number] HIGH>NQ=495 VE RY HIGH*Guidelines provided by the National Choles terol [employer] m Adult Treatment Panel III BASIC METABOLIC [id number] 16:44:00 Test Item Value Reference Range Interpretation [...] 8.8 mg/dL 8.0-10.5 N CA) HEPATIC FUNCTION [id number] 16:44:00 Test Item Value Reference Range Interpretation [...] 121 IUnit/L 20-125 N code = ALKP) [id number] 16:44:00 Test Item Value Reference Range Interpretation [...] may masoud y by method. BASIC METABOLIC [id number] 16:41:00 Test Item Value Reference Range Interpretation [...] code = CA) mg/dL 8.0-10.5 HEPATIC FUNCTION [id number] 16:41:00 Test Item Value Reference Range Interpretation Comments TOTAL PROTEIN (test code = PROT) g/dL 6.4-8.2 ALBUMIN (test code = ALB) g/dL 3.4-5.0 BILIRUBIN TOTAL (test code = BILT) mg/dL 0.0-1.0 BILIRUBIN DIRECT (test code = BILD) MG/DL 0.0-0.30 SGOT/AST (test code = AST) IUnit/L 15-37 SGPT/ALT (test code = ALT) IUnit/L 30-65 ALKALINE PHOSPHATASE TOTAL (test IUnit/L 20-125 code = ALKP) [id number] 16:41:00 Test Item Value Reference Range Interpretation [...] results may masoud y by method. LACTIC [id number] 16:39:00 Test Item Value Reference Range Interpretation Comments LACTIC ACID (test code = LACT) 2.6 mmol/L 0.4-1.9 H - XR CHEST 1 [id number] 16:34:00 [facility] : 1960 Sex: M FAX: Buddy Guallpa [phone] [place]: [address] St: ADM Name: MARCOS RAMOS [facility] : 1960 Age/S: 60/M [address] [place] [address] Unit #: [id number] Loc: [place] [address] Phys: Jaylene Pal LATHMAKER Acct: [id number] Dis Date: Status: ADM IN PHONE #: [phone] Exam Date: 07/13/2020 1629 FAX #: [phone] Reason: sepsis EXAMS: CPT CODE: [id number] XR CHEST 1 V 22356 Portable single view AP chest INDICATION: Sepsis. [...] IMPRESSION: Suspected faint right basilar infiltrate. SL: SG-H at 1634 Reported and signed by: Festus Mejia M.D. CC: Buddy Pal NP Technologist: Meme Banerjee, RT(R); Nikki Coello, RT(R) Trnscrd Date/Time/By: 07/13/2020 (1873) : By: [email or web address] Orig Print D/T: S: 07/13/2020 (6811) PAGE 1 Signed ReportCBC W/AUTO [id number] 16:28:00 Test Item Value Reference Range Interpretation [...] (test code NO = MDIFF) CBC W/AUTO [id number] 16:27:00 Test Item Value Reference Range Interpretation [...]
[2021-08-03 18:00] LABS: Absolute Lymphocytes (CBC) 1.1 K/uL (0.7-4.9); Hematocrit 32.4 % (39.6-49.0); Lymphocytes % 22.7 % (15.3-44.8); MPV 8.9 fL (7.6-11.3); RBC Red Blood Cell Count 3.61 M/uL (4.33-5.43)
[2021-08-03] MEDS ORDERED: NA CHLORIDE 0.9% 1,000 ML ONE (18:04)
[2021-08-03 18:24] LABS: Bilirubin Direct 0.1 mg/dL (0-0.2); Bilirubin Total 0.4 mg/dL (0.2-1.0); Potassium 4.2 mmol/L (3.5-5.1); Protein, Total 6.7 g/dL (6.4-8.2)
--- NOTE | 2021-08-03 19:28 | RAD REPORT ---
EXAM DESCRIPTION: CTAbdomen Pelvis Wo Contrast - 08/03/2021 7:10 pm CLINICAL HISTORY: ABD PAIN COMPARISON: Head angio dated 01/10/2019; Head Brain Wo Cont dated 01/10/2019Stone Protocol dated 12/01/19 20; Stone Protocol dated 04/03/2018; Abdomen Pelvis W Contrast dated 10/09/2015 TECHNIQUE: CT of the abdomen and pelvis was performed. All CT scans are performed using dose optimization technique as appropriate and may include automated exposure control or mA/KV adjustment according to patient size. FINDINGS: Lower chest: Small calcified pulmonary nodules in the lower lungs. Multi-vessel coronary a rtery disease. Circumferential thickened distal esophagus. Liver: No acute abnormality or suspicious lesions. Biliary: No biliary ductal dilatation. Stomach: No significant focal abnormality. Duodenum: No significant focal abnormality. Pancreas: No significant abnormality. Spleen: No significant abnormality. Adrenal: No suspicious lesions. Kidney/ureter: No hydronephrosis. No renal calculi. Nonspecific bilateral perinephric stranding. Retroperitoneum: No retroperitoneal adenopathy. Vascular: No aneurysm. Atherosclerosis . Bowel: Moderate rectal stool burden.. Peritoneum: No ascites or free air. Bladder: Grossly unremarkable. Reproductive: No adnexal masses. Bones: No acute fracture. Multilevel degenerative changes are present in the spine. Other: Epidural pain pump. IMPRESSION: No acute intra-abdominal or pelvic finding. Moderate rectal stool burden could reflect f ecal impaction. Other insult findings as noted above .
[2021-08-03 20:16] LABS: Urine Blood 1+ (Negative); Urine Glucose Trace (Negative); Urine Protein 3+ (Negative); Urine Specific Gravity 1.025 (1.005-1.030)
--- NOTE | 2021-08-03 20:39 | EDPHYS ---
Physician Documentation [facility] Name: Gasper Fry Age: 61 yrs Sex: Male : 1960 Arrival Date: 08/03/2021 Time: 17:14 Bed 23 Private MD: ED Physician Otto Burgos HPI: 08/03 17:51 This 61 yrs old Male presents to ER via EMS with complaints of Abdominal Pain. ma2 17:51 The symptoms do not radiate. Associated signs and symptoms: Pertinent negatives: ma2 anorexia, constipation, dysuria, fever, vomiting. Severity of pain: At its worst the pain was moderate in the emergency department the pain is unchanged. The patient has not experienced similar symptoms in the past. Historical: - Allergies: 17:45 Haldol (Anaphylaxis); lr4 17:45 Narcan (Anaphylaxis); lr4 - Home Meds: 17:45 Adderall XR 30 mg Oral cp24 1 cap twice a day [Active]; atorvastatin 40 mg Oral tab 1 lr4 tab once daily [Active]; Cogentin Oral 0.5 mg twice a day [Active]; Eliquis 5 mg Oral tab 1 tab 2 times per day [Active]; Glucophage Oral [Active]; hydrocodone-acetaminophen 10-325 mg Oral tab 1 tab twice a day [Active]; Klonopin 0.5 mg Oral tab 1 tab 2 times per day [Active]; losartan 50 mg Oral tab 1 tab once daily [Active]; metoprolol tartrate 50 mg Oral tab 1 tab 2 times per day [Active]; Novolin 70/30 Innolet 45 units Sub-Q 45 units twice a day with meals [Active]; Risperdal 4 mg Oral tab 1 tab 2 times per day [Active]; tramadol 50 mg Oral tab 1 tab twice a day [Active]; Victoza 2-Reid subcutaneous [Active]; - PMHx: 17:45 ADD/ADHD; Anxiety; Bipolar disorder; Cellulitis; Chronic pain; CVA; Diabetes - IDDM; lr4 Hypertension; Seizures; neuropathy; - Immunization history:: Adult Immunizations not up to date, Client reports having NOT received the Covid vaccine. Last tetanus immunization: < 10 years ago. - Social history:: Smoking status: Patient reports the use of cigarette tobacco products, smokes .25 packs per day, chewing tobacco, Patient/guardian denies using alcohol, street drugs, The patient lives with family. - Family history:: not pertinent. ROS: 17:51 Constitutional: Negative for fever, chills, and weight loss, MS/Extremity: Negative for ma2 injury and deformity. 17:51 All other systems are negative. Exam: 17:51 Constitutional: This is a well developed, well nourished patient who is awake, alert, ma2 and in no acute distress. Chest/axilla: Normal chest wall appearance and motion. Nontender with no deformity. No lesions are appreciated. Cardiovascular: Regular rate and rhythm with a normal S1 and S2. No gallops, murmurs, or rubs. Normal PMI, no JVD. No pulse deficits. Respiratory: Lungs have equal breath sounds bilaterally, clear to auscultation and percussion. No rales, rhonchi or wheezes noted. No increased work of breathing, no retractions or nasal flaring. Abdomen/GI: Soft, non-tender, with normal bowel sounds. No distension or tympany. No guarding or rebound. No evidence of tenderness throughout. Vital Signs: 17:43 BP 109 / 71; Pulse 76; Resp 12; Temp 97.8; Pulse Ox 97% on R/A; Weight 99.79 kg; Height lr4 6 ft. 0 in. (182.88 cm); Pain 10/10; 18:54 BP 141 / 86; Pulse 78; Resp 14; Pulse Ox 98% on R/A; lr4 19:23 BP 139 / 74; Pulse 78; Resp 12; Pulse Ox 100% on R/A; Pain 0/10; ji 20:01 BP 127 / 64; Pulse 61; Resp 18; Pulse Ox 99% on R/A; lr4 20:37 BP 116 / 78; Pulse 82; Resp 20; Pulse Ox 98% on R/A; lr4 17:43 Body Mass Index 29.84 (99.79 kg, 182.88 cm) lr4 MDM: 17:48 Patient medically screened. kb 20:34 Differential diagnosis: appendicitis, bowel obstruction, diverticulitis, non-specific mh7 abd pain, Pyelonephritis, Ureterolithiasis, urinary tract infection. Data reviewed: vital signs, nurses notes, old medical records, lab test result(s), CBC, electrolytes, urinalysis, radiologic studies, CT scan. Data interpreted: Pulse oximetry: on room air is 99 %. Interpretation: normal. Counseling: I had a detailed discussion with the patient and/or guardian regarding: the historical points, exam findings, and any diagnostic results supporting the discharge/admit diagnosis, lab results, radiology results, the need for outpatient follow up, to return to the emergency department if symptoms worsen or persist or if there are any questions or concerns that arise at home. Response to treatment: the patient's symptoms have resolved after treatment, the patient's blood pressure is in an acceptable range, mental status has returned to baseline, the patient no longer shows bradycardia, the patient is not short of breath, the patient is not tachycardic, the patient's pain is gone, the patient's temperature has normalized. ED course: Patient signed out to me at change of shift to check results of CT abdomen/pelvis. Well appearing, NAD, VSS, no focal deficits. No abdominal pain/tenderness, nausea, vomiting, or diarrhea. Tolerating PO intake without difficulty. Discussed all test results and findings. Patient declined rectal exam, but states that he had a very large bowel movement after having the CT scan. He states that he is ready for discharge.. 20:39 Patient medically screened. mh7 08/03 17:48 Order name: Basic Metabolic Panel; Complete Time: 18:37 kb 08/03 17:48 Order name: CBC with Diff; Complete Time: 18:37 kb 08/03 17:48 Order name: Hepatic Function; Complete Time: 18:37 kb 08/03 17:48 Order name: Lipase; Complete Time: 18:37 kb 08/03 17:48 Order name: IV Saline Lock; Complete Time: 17:52 kb 08/03 17:48 Order name: Labs collected and sent; Complete Time: 17:52 kb 08/03 18:54 Order name: Abdomen ; Complete Time: 19:45 EDMS 08/03 20:16 Order name: Urine Dipstick-Ancillary; Complete Time: 20:16 EDMS 08/03 17:48 Order name: IV Saline Lock; Complete Time: 17:52 ma2 08/03 17:48 Order name: Labs collected and sent; Complete Time: 17:52 ma2 08/03 17:48 Order name: Urine Dipstick-Ancillary (obtain specimen); Complete Time: 20:15 [facility] Administered Medications: 18:05 Drug: NS 0.9% 1000 ml Route: IV; Rate: 1 bolus; Site: left forearm; lr4 19:53 Follow up: IV Status: Completed infusion; IV Intake: 1000ml ji Disposition Summary: 08/03/21 20:39 Discharge Ordered Location: Home [facility] Problem: new [facility] Symptoms: have improved [facility] Condition: Stable [facility] Diagnosis - Lower abdominal pain, unspecified 7 - Constipation [facility] Followup: [facility] - With: Private Physician - When: 1 - 2 days - Reason: Worsening of condition, Recheck today's complaints, Continuance of care, Re-evaluation by your physician Discharge Instructions: - Discharge Summary Sheet [facility] - Constipation, Adult, [id number] [facility] - Abdominal Pain, Adult, [id number] [facility] Forms: - Medication Reconciliation Form [facility] - Thank You Letter [facility] - Antibiotic Education [facility] - Prescription Opioid Use [facility] Prescriptions: - Dulcolax (bisacodyl) 10 mg Rectal suppository - insert 1 suppository by RECTAL route once daily As needed as needed for 7 constipation; 5 suppository; Refills: 0, Product Selection Permitted - Colace 100 mg Oral Tablet - take 1 tablet by ORAL route every 12 hours; 14 tablet; Refills: 0, Product [facility] Selection Permitted - Lactulose 10 gram/15 mL Oral Solution - take 30 milliliters by ORAL route once daily; 150 milliliter; Refills: 0, mh7 Product Selection Permitted Signatures: Dispatcher [employer] EDTN Lubna Williamson, PROGRAMMER NUMERICAL CONTROL-C PROGRAMMER NUMERICAL CONTROL-Ckb Justin Gregorio MD MD ma2 Otto Burgos MD MD 7 [place] Arvizu RN RN lr4 Zoe Rea PA PA sb3 Guadalupe Mock RN ji Corrections: (The following items were deleted from the chart) 17:49 17:49 BASIC METABOLIC PANEL+C.LAB.BRZ ordered. EDMS EDMS 17:49 17:49 CBC+H.LAB.BRZ ordered. EDMS EDMS 17:49 17:49 HEPATIC FUNCTION+C.LAB.BRZ ordered. EDMS EDMS 17:49 17:49 LIPASE+C.LAB.BRZ ordered. EDMS EDMS 17:53 17:49 Abdomen Pelvis W Con+CT.RAD.BRZ ordered. EDMS EDMS
--- NOTE | 2021-08-03 20:39 | ER ---
Nurse's Notes [facility] Name: Gasper Fry Age: 61 yrs Sex: Male : 1960 Arrival Date: 08/03/2021 Time: 17:14 Bed 23 Private MD: Diagnosis: Lower abdominal pain, unspecified;Constipation Presentation: 08/03 17:43 Chief complaint: Patient states: RLQ abdominal pain starting this AM, pt reports bm lr4 have been normal and denies any n/v. Coronavirus screen: Vaccine status: Patient reports being unvaccinated. Client denies travel out of the [place] in the last 14 days. At this time, the client does not indicate any symptoms associated with coronavirus-19. Ebola Screen: Patient negative for fever greater than or equal to 101.5 degrees Fahrenheit, and additional compatible Ebola Virus Disease symptoms. Initial Sepsis Screen: Does the patient meet any 2 criteria? No. Patient's initial sepsis screen is negative. Does the patient have a suspected source of infection? No. Patient's initial sepsis screen is negative. Risk Assessment: Do you want to hurt yourself or someone else? Patient reports no desire to harm self or others. Onset of symptoms was August 03, 2021. 17:43 Method Of Arrival: EMS: [facility] lr4 17:43 Acuity: DARREL 3 lr4 Triage Assessment: 17:45 General: Appears in no apparent distress. comfortable, uncomfortable, Behavior is calm, lr4 cooperative. Pain: Complains of pain in abdomen rlq Pain currently is 10 out of 10 on a pain scale. Quality of pain is described as sharp, Pain began suddenly, this AM Is continuous. Neuro: No deficits noted. Cardiovascular: No deficits noted. Respiratory: No deficits noted. GI: Abdomen is flat, non-distended, Bowel sounds present X 4 quads. Abdomen is tender to palpation in right lower quadrant Reports lower abdominal pain, cramping, normal bowel habits. Historical: - Allergies: 17:45 Haldol (Anaphylaxis); lr4 17:45 Narcan (Anaphylaxis); lr4 - Home Meds: 17:45 Adderall XR 30 mg Oral cp24 1 cap twice a day [Active]; atorvastatin 40 mg Oral tab 1 lr4 tab once daily [Active]; Cogentin Oral 0.5 mg twice a day [Active]; Eliquis 5 mg Oral tab 1 tab 2 times per day [Active]; Glucophage Oral [Active]; hydrocodone-acetaminophen 10-325 mg Oral tab 1 tab twice a day [Active]; Klonopin 0.5 mg Oral tab 1 tab 2 times per day [Active]; losartan 50 mg Oral tab 1 tab once daily [Active]; metoprolol tartrate 50 mg Oral tab 1 tab 2 times per day [Active]; Novolin 70/30 Innolet 45 units Sub-Q 45 units twice a day with meals [Active]; Risperdal 4 mg Oral tab 1 tab 2 times per day [Active]; tramadol 50 mg Oral tab 1 tab twice a day [Active]; Victoza 2-Reid subcutaneous [Active]; - PMHx: 17:45 ADD/ADHD; Anxiety; Bipolar disorder; Cellulitis; Chronic pain; CVA; Diabetes - IDDM; lr4 Hypertension; Seizures; neuropathy; - Immunization history:: Adult Immunizations not up to date, Client reports having NOT received the Covid vaccine. Last tetanus immunization: < 10 years ago. - Social history:: Smoking status: Patient reports the use of cigarette tobacco products, smokes .25 packs per day, chewing tobacco, Patient/guardian denies using alcohol, street drugs, The patient lives with family. - Family history:: not pertinent. Screenin:49 Abuse screen: Denies threats or abuse. Nutritional screening: No deficits noted. lr4 Tuberculosis screening: No symptoms or risk factors identified. Fall Risk No fall in past 12 months (0 pts). Secondary diagnosis (15 points) IV access (20 points). Ambulatory Aid- Crutches/Cane/Walker (15 pts). Gait- Impaired (20 pts.). Mental Status- Oriented to own ability (0 pts). Total Martínez Fall Scale indicates High Risk Score (45 or more points). Fall prevention measures have been instituted. Side Rails Up X 2 Placed Close to Nursing Station Frequent Obs/Assessments Occuring As available patient and family educated on Fall Prevention Program and Strategies. Assessment: 18:55 Reassessment: No changes from previously documented assessment. lr4 19:19 General: The pt has just returned from [place] and was placed back on the bedside monitor. ji His mother, Susan, had just left, as she said she needed to get home. She asked that the pt call her \\T\\ [phone], when he returned. He did call and speak with her and told her that the results were not back yet. She is anxious to see if he is to be admitted. The pt lives with his mother, as he says "I had to sell my house. My a few months ago. I was to her for 20 years." We discussed his close relationship with his mother and he said "we're best friends". The pt looks much older than his years and his mother, remarkably, young. He is resting at present and called from his cell phone that he has. . 19:45 General: The pt calls out occasionally,"Moma". He is oriented, but I feel he does this ji when he is sleeping. He grunts occasionally, as well. Per the radiological report, the pt has an "epidural pump". . 20:56 General: pt departed ed via wheelchair, to pt's father car, with all personal effects, lr4 vss, resp even an unlabored. Vital Signs: 17:43 BP 109 / 71; Pulse 76; Resp 12; Temp 97.8; Pulse Ox 97% on R/A; Weight 99.79 kg; Height lr4 6 ft. 0 in. (182.88 cm); Pain 10/10; 18:54 BP 141 / 86; Pulse 78; Resp 14; Pulse Ox 98% on R/A; lr4 19:23 BP 139 / 74; Pulse 78; Resp 12; Pulse Ox 100% on R/A; Pain 0/10; ji 20:01 BP 127 / 64; Pulse 61; Resp 18; Pulse Ox 99% on R/A; lr4 20:37 BP 116 / 78; Pulse 82; Resp 20; Pulse Ox 98% on R/A; lr4 17:43 Body Mass Index 29.84 (99.79 kg, 182.88 cm) lr4 ED Course: 17:14 Patient arrived in ED. jd3 17:43 [place] Arvizu, RN is Primary Nurse. lr4 17:45 Triage completed. lr4 17:45 Inserted saline lock: 20 gauge in left forearm, using aseptic technique. lr4 17:48 Lubna Williamson FNP-C is PHCP. kb 17:48 Justin Gregorio MD is Attending Physician. kb 17:50 Arm band placed on right wrist. lr4 17:50 Patient has correct armband on for positive identification. Bed in low position. Call lr4 light in reach. Side rails up X2. groundwater monitoring technician on. Pulse ox on. NIBP on. Door closed. Noise minimized. Warm blanket given. 17:50 No provider procedures requiring assistance completed. lr4 17:52 Basic Metabolic Panel Sent. lr4 17:52 CBC with Diff Sent. lr4 17:52 Hepatic Function Sent. lr4 17:52 Lipase Sent. lr4 18:06 Basic Metabolic Panel Sent. lr4 18:06 Hepatic Function Sent. lr4 18:06 Lipase Sent. lr4 19:09 Abdomen In Process Unspecified. EDMS 19:10 Attending Physician role handed off by Justin Gregorio MD [facility] 19:10 Otto Burgos MD is Attending Physician. 7 20:56 IV discontinued, intact, bleeding controlled, No redness/swelling at site. Pressure lr4 dressing applied. Administered Medications: 18:05 Drug: NS 0.9% 1000 ml Route: IV; Rate: 1 bolus; Site: left forearm; lr4 19:53 Follow up: IV Status: Completed infusion; IV Intake: 1000ml ji Intake: 19:53 IV: 1000ml; Total: 1000ml. ji Outcome: 17:50 Condition: stable lr4 20:39 Discharge ordered by . mh7 20:56 Discharged to home via wheelchair. lr4 20:56 Discharge instructions given to patient. lr4 20:57 Patient left the ED. lr4 Signatures: Dispatcher [employer] EDGA Lubna Williamson, MAILE CONNELLY-Cirilo Keen RN RN jJustin Briggs MD MD ma2 Holmes, Maurice, MD MD 7 Guadalupe Mock RN [place] Solomon RN RN lr4
[2021-08-03 21:25] VITALS: TEMP 97.8
[2021-08-03 21:30] VITALS: BP 116/78; O2SAT 98
== END 2021-08-03 20:57 | disposition home or self-care (01) ==
LOC: ER 17:13
DX: K59.00 Constipation, unspecified (principal); I10 Essential (primary) hypertension; E11.9 Type 2 diabetes mellitus without complications; F31.9 Bipolar disorder, unspecified; Z88.5 Allergy status to narcotic agent
CPT/HCPCS: 96361; 85025; 80048; 36415; 80076; 81003; 83690; 74176; 96360; 99284; J7030

== ENCOUNTER 2021-10-20 17:11 | Inpatient (IN) | payer OTHER ==
--- OUTSIDE RECORDS SUMMARY | 2021-10-20 17:14 | XMS REPORT | Clinical Summary ---
:1960 Author Organization [facility] MD [facility] Address [address] [place] [address] Care Team Providers Name Role Phone Unavailable [...] Vaccination (1) 1966 Results Not on fileafter 10/20/2020 Insurance Payer Benefit Plan / Subscriber ID Effective Phone Address T ype Group Dates MEDICARE MEDICARE PART A [id number] 2004-Pres [phone] [facility] Medicare AND B ent [id number] [employer] [address] [place] [address] MED[place] [id number] 2018-Pres [address] Medicaid TRADITIONAL TRADITIONAL ent [id number] [place] [address] Advance Directives Code Status Date Activated Date Inactivated Comments Full Code 12/19/2018 10:01 AM 12/25/2018 1:04 PM
--- OUTSIDE RECORDS SUMMARY | 2021-10-20 17:18 | XMS REPORT | Continuity of Care Document ---
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 [id number] 90mg TAKE 3 [facility] MONONITRATE 3-07 02 TABLETS BY it y of 30 mg 24 hr 00:00: MOUTH [place] tablet 00 DAILY. [facility] ISOSORBIDE 2021-0 Yes [id number] 90mg TAKE 3 [facility] MONONITRATE 3-07 02 TABLETS BY it y of 30 mg 24 hr 00:00: MOUTH [place] tablet 00 DAILY. [facility] ISOSORBIDE 0 Yes [id number] 90mg TAKE 3 [facility] MONONITRATE 3-07 02 TABLETS BY it y of 30 mg 24 hr 00:00: MOUTH [place] tablet 00 DAILY. [facility] EASY TOUCH 2021-0 Yes [facility] ALCOHOL 2-02 ity of PREP PADS 00:00: [place] [facility] EASY TOUCH 2021-0 Yes [facility] ALCOHOL 2-02 ity of PREP PADS 00:00: [place] [facility] EASY TOUCH 2021-0 Yes [facility] ALCOHOL 2-02 ity of PREP PADS 00:00: [place] [facility] EASY TOUCH 2021-0 Yes [facility] ALCOHOL 2-02 ity of PREP PADS 00:00: [place] [facility] EASY TOUCH 2021-0 Yes [facility] ALCOHOL 2-02 ity of PREP PADS 00:00: [place] [facility] EASY TOUCH 2021-0 Yes [facility] ALCOHOL 2-02 ity of PREP PADS 00:00: [place] [facility] EASY TOUCH 2021-0 Yes [facility] ALCOHOL 2-02 ity of PREP PADS 00:00: [place] [facility] EASY TOUCH 2021-0 Yes [facility] ALCOHOL 2-02 ity of PREP PADS 00:00: [place] [facility] EASY TOUCH 2021-0 Yes [facility] ALCOHOL 2-02 ity of PREP PADS 00:00: [place] [facility] EASY TOUCH 2021-0 Yes [facility] ALCOHOL 2-02 ity of PREP PADS 00:00: [place] [facility] EASY TOUCH Yes [facility] ALCOHOL 2-02 ity of PREP PADS 00:00: [place] [address] Medical Branch insulin 2020-06 Yes [id number] 20U inject 20 U nivers degludec 2-20 Units ity of (TRESIBA 00:00: under the [employer] FLEXTOUCH 00 skin 2 Medical U-200) 200 (two) Branch unit/mL (3 times mL) InPn daily. Max daily dose of 50 glipiZIDE 2020-06 Yes [id number] 10mg Take 1 [facility] XL 10 mg 24 2-20 tablet by ity of hr tablet 00:00: mouth 2 (two) Medical times Branch daily. insulin 2020-06 Yes [id number] 20U inject 20 U nivers degludec 2-20 Units ity of (TRESIBA 00:00: under the [employer] FLEXTOUCH 00 skin 2 Medical U-200) 200 (two) Branch unit/mL (3 times mL) InPn daily. Max daily dose of 50 glipiZIDE 2020-06 Yes [id number] 10mg Take 1 [facility] [place] XL 10 mg 24 2-20 tablet by ity of hr tablet 00:00: mouth 2 (two) Medical times Branch daily. insulin 2020-06 Yes [id number] 20U inject 20 U nivers degludec 2-20 Units ity of (TRESIBA 00:00: under the [employer] FLEXTOUCH 00 skin 2 Medical U-200) 200 (two) Branch unit/mL (3 times mL) InPn daily. Max daily dose of 50 glipiZIDE 2020-06 Yes [id number] 10mg Take 1 [facility] [place] XL 10 mg 24 2-20 tablet by ity of hr tablet 00:00: mouth 2 (two) Medical times Branch daily. insulin 2020-06 Yes [id number] 20U inject 20 U nivers degludec 2-20 Units ity of (TRESIBA 00:00: under the [employer] FLEXTOUCH 00 skin 2 Medical U-200) 200 (two) Branch unit/mL (3 times mL) InPn daily. Max daily dose of 50 glipiZIDE 2020-06 Yes [id number] 10mg Take 1 [facility] [place] XL 10 mg 24 2-20 tablet by ity of hr tablet 00:00: mouth (two) Medical times Branch daily. insulin 2020-06 Yes [id number] 20U inject 20 U nivers degludec 2-20 Units ity of (TRESIBA 00:00: [place] FLEXTOUCH [place] skin 2 Medical U-200) 200 (two) Branch unit/mL (3 times mL) InPn daily. Max daily dose of 50 glipiZIDE 2020-06 Yes [id number] 10mg Take 1 [facility] [place] XL 10 mg 24 2-20 tablet by ity of hr tablet 00:00: mouth (two) Medical times Branch daily. insulin 2020-06 Yes [id number] 20U inject 20 U nivers degludec 2-20 Units ity of (TRESIBA 00:00: under the [employer] FLEXTOUCH 00 skin 2 Medical U-200) 200 (two) Branch unit/mL (3 times mL) InPn daily. Max daily dose of 50 glipiZIDE 2020-06 Yes [id number] 10mg Take 1 [facility] [place] XL 10 mg 24 2-20 tablet by ity of hr tablet 00:00: mouth (two) Medical times Branch daily. glipiZIDE 2020-06 Yes [id number] 10mg Take 1 [facility] [place] XL 10 mg 24 2-20 tablet by ity of hr tablet 00:00: mouth (two) Medical times Branch daily. glipiZIDE 2020-06 Yes [id number] 10mg Take 1 [facility] [place] XL 10 mg 24 2-20 tablet by ity of hr tablet 00:00: mouth (two) Medical times Branch daily. glipiZIDE 2020-06 Yes [id number] 10mg Take 1 [facility] [place] XL 10 mg 24 2-20 tablet by ity of hr tablet 00:00: mouth (two) Medical times Branch daily. glipiZIDE 2020-06 Yes [id number] 10mg Take 1 [facility] [place] XL 10 mg 24 2-20 tablet by ity of hr tablet 00:00: mouth (two) Medical times Branch daily. glipiZIDE 2020-06 Yes [id number] 10mg Take 1 [facility] [place] XL 10 mg 24 2-20 tablet by ity of hr tablet 00:00: mouth 2 [place] 00 (two) Medical times Branch daily. insulin 2020-06- No [id number] 20U inject 20 [facility] degludec 2-20 04-12 Units ity of (TRESIBA 00:00: 00:00 under the [place] [facility] FLEXTOUCH 00 :00 skin 2 Medical U-200) 200 (two) Branch unit/mL (3 times mL) InPn daily. Max daily dose of 50 insulin 2020-06- No [id number] 20U inject 20 [facility] degludec 2-20 04-12 Units ity of (TRESIBA 00:00: 00:00 under the [place] [facility] FLEXTOUCH 00 :00 skin 2 Medical U-200) 200 (two) Branch unit/mL (3 times mL) InPn daily. Max daily dose of 50 escitalopra 2020-06 Yes [id number] 20mg Take 1 Univers m oxalate 2-17 tablet by ity o f 20 mg 00:00: mouth [place] tablet 00 daily. Medical Branch escitalopra 2020-06 Yes [id number] 20mg Take 1 [facility] m oxalate 2-17 tablet by ity o f 20 mg 00:00: mouth [place] tablet 00 daily. Medical Branch escitalopra 2020-06 Yes [id number] 20mg Take 1 [facility] m oxalate 2-17 tablet by ity o f 20 mg 00:00: mouth [place] tablet 00 daily. Medical Branch escitalopra 2020-06 Yes [id number] 20mg Take 1 [facility] m oxalate 2-17 tablet by ity o f 20 mg 00:00: mouth [place] tablet 00 daily. Medical Branch escitalopra 2020-06 Yes [id number] 20mg Take 1 Univers m oxalate 2-17 tablet by ity o f 20 mg 00:00: mouth [place] tablet 00 daily. [facility] Branch escitalopra 2020-06 Yes [id number] 20mg Take 1 Univers m oxalate 2-17 tablet by ity o f 20 mg 00:00: mouth [place] tablet 00 daily. [facility] Branch escitalopra 2020-06 Yes [id number] 20mg Take 1 Univers m oxalate 2-17 tablet by ity o f 20 mg 00:00: mouth [place] tablet 00 daily. [facility] Branch escitalopra 2020-06 Yes [id number] 20mg Take 1 Univers m oxalate 2-17 tablet by ity o f 20 mg 00:00: mouth [place] tablet 00 daily. [facility] escitalopra 2020-06 Yes [id number] 20mg Take 1 Univers m oxalate 2-17 tablet by ity o f 20 mg 00:00: mouth [place] tablet 00 daily. [facility] escitalopra 2020-06 Yes [id number] 20mg Take 1 Univers m oxalate 2-17 tablet by ity o f 20 mg 00:00: mouth [place] tablet 00 daily. [facility] escitalopra 2020-06 Yes [id number] 20mg Take 1 Univers m oxalate 2-17 tablet by ity o f 20 mg 00:00: mouth [place] tablet 00 daily. [facility] semaglutide 2020-06 Yes [id number] 1mg inject 1 Univers (OZEMPIC) 1 1-22 mg under ity of mg/dose (4 00:00: the skin [place] mg/3 mL) 00 weekly. [facility] semaglutide 2020-06 Yes [id number] 1mg inject 1 Univers (OZEMPIC) 1 1-22 mg under ity of mg/dose (4 00:00: the skin [place] mg/3 mL) 00 weekly. [facility] semaglutide 2020-06- No [id number] 1mg inject 1 Univers (OZEMPIC) 1 1-22 04-11 mg under ity of mg/dose (4 00:00: 00:00 [place] mg/3 mL) 00 :00 weekly. [facility] semaglutide 2020-06- No [id number] 1mg inject 1 Univers (OZEMPIC) 1 1-22 04-11 mg under ity of mg/dose (4 00:00: 00:00 [place] mg/3 mL) 00 :00 weekly. [facility] Branch risperiDONE 2020-06 Yes 4mg Take 4 mg U nivers 4 mg tablet 1-18 by mouth ity of 11:22: at [place] 01 bedtime. [facility] Branch aspirin 2020-06 Yes 81mg Take 81 mg Univ ers (ADULT LOW 1-18 by mouth ity o f DOSE 11:22: daily. [place] ASPIRIN) 81 01 [facility] tablet risperiDONE 2020-06 Yes 4mg Take 4 mg U nivers 4 mg tablet 1-18 by mouth ity of 11:22: at [place] 01 bedtime. [facility] aspirin 2020-06 Yes 81mg Take 81 mg Univ ers (ADULT LOW 1-18 by mouth ity o f DOSE 11:22: daily. [place] ASPIRIN) 81 01 Medical mg EC Branch tablet risperiDONE 2020-06 Yes 4mg Take 4 mg U nivers 4 mg tablet 1-18 by mouth ity of 11:22: at [place] [address] bedtime. Medical Branch aspirin 2020-06 Yes 81mg Take 81 mg Univ ers (ADULT LOW 1-18 by mouth ity o f DOSE 11:22: daily. [place] ASPIRIN) 81 01 Medical mg EC Branch tablet risperiDONE 2020-06 Yes 4mg Take 4 mg U nivers 4 mg tablet 1-18 by mouth ity of 11:22: at [place] [address] bedtime. Medical Branch aspirin 2020-06 Yes 81mg Take 81 mg Univ ers (ADULT LOW 1-18 by mouth ity o f DOSE 11:22: daily. [place] ASPIRIN) 81 01 Medical mg EC Branch tablet risperiDONE 2020-06 Yes 4mg Take 4 mg U nivers 4 mg tablet 1-18 by mouth ity of 11:22: at [place] [address] bedtime. Medical Branch aspirin 2020-06 Yes 81mg Take 81 mg Univ ers (ADULT LOW 1-18 by mouth ity o f DOSE 11:22: daily. [place] ASPIRIN) 81 01 Medical mg EC Branch tablet risperiDONE 2020-06 Yes 4mg Take 4 mg U nivers 4 mg tablet 1-18 by mouth ity of 11:22: at [place] [address] bedtime. Medical Branch aspirin 2020-06 Yes 81mg Take 81 mg Univ ers (ADULT LOW 1-18 by mouth ity o f DOSE 11:22: daily. [place] ASPIRIN) 81 01 Medical mg EC Branch tablet benztropine 2020-06 Yes .5mg Take 0.5 Un [facility] 1 mg tablet 1-04 tablets by it y of 00:00: mouth 2 [place] 00 (two) Medical times Branch daily. sodium 2020-06 Yes [id number] 650mg Take 1 U nivers bicarbonate 1-04 5 tablet by ity of 650 mg 00:00: mouth 2 [place] tablet 00 (two) Medical times Branch daily. amLODIPine 2020-06 Yes [id number] 10mg Take 1 [facility] 10 mg 1-04 tablet by ity of tablet 00:00: mouth at [place] [address] bedtime. Medical Branch DULoxetine 2020-06 Yes [id number] 40mg Take 40 mg Univers 40 mg CpDR 1-04 by mouth ity o f 00:00: daily. Medical Branch benztropine 2020-06 Yes .5mg Take 0.5 [facility] [place] 1 mg tablet 1-04 tablets by it y of 00:00: mouth 2 (two) Medical times Branch daily. sodium 2020-06 Yes [id number] 650mg Take 1 U nivers bicarbonate 1-04 5 tablet by ity of 650 mg 00:00: mouth 2 [place] tablet 00 (two) Medical times Branch daily. amLODIPine 2020-06 Yes [id number] 10mg Take 1 [facility] [place] 10 mg 1-04 tablet by ity of tablet 00:00: mouth at [place] bedtime. Medical Branch DULoxetine 2020-06 Yes [id number] 40mg Take 40 mg Univers 40 mg CpDR 1-04 by mouth ity o f 00:00: daily. Medical Branch benztropine 2020-06 Yes .5mg Take 0.5 [facility] [place] 1 mg tablet 1-04 tablets by it y of 00:00: mouth 2 (two) Medical times Branch daily. sodium 2020-06 Yes [id number] 650mg Take 1 U nivers bicarbonate 1-04 5 tablet by ity of 650 mg 00:00: mouth 2 [place] tablet (two) Medical times Branch daily. amLODIPine 2020-06 Yes [id number] 10mg Take 1 [facility] 10 mg 1-04 tablet by ity of tablet 00:00: mouth at [place] bedtime. Medical Branch DULoxetine 2020-06 Yes [id number] 40mg Take 40 mg Univers 40 mg CpDR 1-04 by mouth ity o f 00:00: daily. Medical Branch benztropine 2020-06 Yes .5mg Take 0.5 [facility] [place] 1 mg tablet 1-04 tablets by it y of 00:00: mouth 2 [place] (two) Medical times Branch daily. sodium 2020-06 Yes [id number] 650mg Take 1 U nivers bicarbonate 1-04 5 tablet by ity of 650 mg 00:00: mouth 2 [place] tablet 00 (two) Medical times Branch daily. amLODIPine 2020-06 Yes [id number] 10mg Take 1 Un [place] 10 mg 1-04 tablet by ity of tablet 00:00: mouth at [place] [address] bedtime. Medical Branch DULoxetine 2020-06 Yes [id number] 40mg Take 40 mg [facility] 40 mg CpDR 1-04 by mouth ity o f 00:00: daily. Medical Branch benztropine 2020-06 Yes .5mg Take 0.5 [facility] [place] 1 mg tablet 1-04 tablets by it y of 00:00: mouth 2 (two) Medical times Branch daily. sodium 2020-06 Yes [id number] 650mg Take 1 U nivers bicarbonate 1-04 5 tablet by ity of 650 mg 00:00: mouth 2 [place] tablet (two) Medical times Branch daily. amLODIPine 2020-06 Yes [id number] 10mg Take 1 Un [place] 10 mg 1-04 tablet by ity of tablet 00:00: mouth at [place] [address] bedtime. Medical Branch DULoxetine 2020-06 Yes [id number] 40mg Take 40 mg [facility] 40 mg CpDR 1-04 by mouth ity o f 00:00: daily. Medical Branch benztropine 2020-06 Yes .5mg Take 0.5 [facility] [place] 1 mg tablet 1-04 tablets by it y of 00:00: mouth 2 [place] (two) Medical times Branch daily. sodium 2020-06 Yes [id number] 650mg Take 1 U nivers bicarbonate 1-04 5 tablet by ity of 650 mg 00:00: mouth 2 [place] tablet (two) Medical times Branch daily. amLODIPine 2020-06 Yes [id number] 10mg Take 1 [facility] [place] 10 mg 1-04 tablet by ity of tablet 00:00: mouth at [place] [address] bedtime. Medical Branch DULoxetine 2020-06 Yes [id number] 40mg Take 40 mg [facility] 40 mg CpDR 1-04 by mouth ity o f 00:00: daily. Medical Branch benztropine 2020-06 Yes .5mg Take 0.5 [facility] [place] 1 mg tablet 1-04 tablets by it y of 00:00: mouth 2 [place] (two) Medical times Branch daily. sodium 2020-06 Yes [id number] 650mg Take 1 U nivers bicarbonate 1-04 5 tablet by ity of 650 mg 00:00: mouth 2 [place] tablet 00 (two) Medical times Branch daily. amLODIPine 2020-06 Yes [id number] 10mg Take 1 [facility] [place] 10 mg 1-04 tablet by ity of tablet 00:00: mouth at [place] [address] bedtime. Medical Branch DULoxetine 2020-06 Yes [id number] 40mg Take 40 mg [facility] 40 mg CpDR 1-04 by mouth ity o f 00:00: daily. Medical Branch benztropine 2020-06 Yes .5mg Take 0.5 [facility] [place] 1 mg tablet 1-04 tablets by it y of 00:00: mouth 2 (two) Medical times Branch daily. sodium 2020-06 Yes [id number] 650mg Take 1 U nivers bicarbonate 1-04 5 tablet by ity of 650 mg 00:00: mouth 2 [place] tablet 00 (two) Medical times Branch daily. amLODIPine 2020-06 Yes [id number] 10mg Take 1 [facility] [place] 10 mg 1-04 tablet by ity of tablet 00:00: mouth at [place] [address] bedtime. Medical Branch DULoxetine 2020-06 Yes [id number] 40mg Take 40 mg [facility] 40 mg CpDR 1-04 by mouth ity o f 00:00: daily. Medical Branch benztropine 2020-06 Yes .5mg Take 0.5 [facility] [place] 1 mg tablet 1-04 tablets by it y of 00:00: mouth 2 [place] (two) Medical times Branch daily. sodium 2020-06 Yes [id number] 650mg Take 1 U nivers bicarbonate 1-04 5 tablet by ity of 650 mg 00:00: mouth 2 [place] tablet 00 (two) Medical times Branch daily. amLODIPine 2020-06 Yes [id number] 10mg Take 1 [facility] [place] 10 mg 1-04 tablet by ity of tablet 00:00: mouth at [place] [address] bedtime. Medical Branch DULoxetine 2020-06 Yes [id number] 40mg Take 40 mg [facility] 40 mg CpDR 1-04 by mouth ity o f 00:00: daily. Medical Branch benztropine 2020-06 Yes .5mg Take 0.5 [facility] [place] 1 mg tablet 1-04 tablets by it y of 00:00: mouth 2 [place] (two) Medical times Branch daily. sodium 2020-06 Yes [id number] 650mg Take 1 U nivers bicarbonate 1-04 5 tablet by ity of 650 mg 00:00: mouth 2 [place] tablet 00 (two) Medical times Branch daily. amLODIPine 2020-06 Yes [id number] 10mg Take 1 [facility] [place] 10 mg 1-04 tablet by ity of tablet 00:00: mouth at [place] 00 bedtime. Medical Branch DULoxetine 2020-06 Yes [id number] 40mg Take 40 mg [facility] 40 mg CpDR 1-04 by mouth ity o f 00:00: daily. Medical Branch benztropine 2020-06 Yes .5mg Take 0.5 [facility] [place] 1 mg tablet 1-04 tablets by it y of 00:00: mouth 2 [place] 00 (two) Medical times Branch daily. sodium 2020-06 Yes [id number] 650mg Take 1 U nivers bicarbonate 1-04 5 tablet by ity of 650 mg 00:00: mouth 2 [place] tablet 00 (two) Medical times Branch daily. amLODIPine 2020-06 Yes [id number] 10mg Take 1 [facility] [place] 10 mg 1-04 tablet by ity of tablet 00:00: mouth at [place] 00 bedtime. Medical Branch DULoxetine 2020-06 Yes [id number] 40mg Take 40 mg [facility] 40 mg CpDR 1-04 by mouth ity o f 00:00: daily. Medical Branch atorvastati 2020-06 Yes [id number] 40mg Take 1 Univers n (LIPITOR) 1-01 tablet by ity of 40 mg 00:00: mouth at [place] tablet 00 bedtime. Medical Branch atorvastati 2020-06 Yes [id number] 40mg Take 1 Univers n (LIPITOR) 1-01 tablet by ity of 40 mg 00:00: mouth at [place] tablet 00 bedtime. Medical Branch atorvastati 2020-06 Yes [id number] 40mg Take 1 Univers n (LIPITOR) 1-01 tablet by ity of 40 mg 00:00: mouth at [place] tablet 00 bedtime. Medical Branch atorvastati 2020-06 Yes [id number] 40mg Take 1 Univers n (LIPITOR) 1-01 tablet by ity of 40 mg 00:00: mouth at [place] tablet 00 bedtime. Medical Branch atorvastati 2020-06 Yes [id number] 40mg Take 1 Univers n (LIPITOR) 1-01 tablet by ity of 40 mg 00:00: mouth at [place] tablet 00 bedtime. Medical Branch atorvastati 2020-06 Yes [id number] 40mg Take 1 Univers n (LIPITOR) 1-01 tablet by ity of 40 mg 00:00: mouth at [place] tablet 00 bedtime. Medical Branch atorvastati 2020-06 Yes [id number] 40mg Take 1 Univers n (LIPITOR) 1-01 tablet by ity of 40 mg 00:00: mouth at [place] tablet 00 bedtime. Medical Branch atorvastati 2020-06 Yes [id number] 40mg Take 1 Univers n (LIPITOR) 1-01 tablet by ity of 40 mg 00:00: mouth at [place] tablet 00 bedtime. Medical Branch atorvastati 2020-06 Yes [id number] 40mg Take 1 Univers n (LIPITOR) 1-01 tablet by ity of 40 mg 00:00: mouth at [place] tablet 00 bedtime. Medical Branch atorvastati 2020-06 Yes [id number] 40mg Take 1 Univers n (LIPITOR) 1-01 tablet by ity of 40 mg 00:00: mouth at [place] tablet 00 bedtime. Medical Branch atorvastati 2020-06 Yes [id number] 40mg Take 1 Univers n (LIPITOR) 1-01 tablet by ity of 40 mg 00:00: mouth at [place] tablet 00 bedtime. Medical Branch bumetanide 2020-06 Yes [id number] 2mg Take 2 Univers 1 mg tablet 0-25 02 tablets by it y of 00:00: mouth 2 (two) Medical times Branch daily. bumetanide 2020-06 Yes [id number] 2mg Take 2 Univers 1 mg tablet 0-25 02 tablets by it y of 00:00: mouth 2 (two) Medical times Branch daily. bumetanide 2020-06 Yes [id number] 2mg Take 2 Univers 1 mg tablet 0-25 02 tablets by it y of 00:00: mouth 2 (two) Medical times Branch daily. bumetanide 2020-06 Yes [id number] 2mg Take 2 Univers 1 mg tablet 0-25 02 tablets by it y of 00:00: mouth 2 (two) Medical times Branch daily. bumetanide 2020-06 Yes [id number] 2mg Take 2 Univers 1 mg tablet 0-25 02 tablets by it y of 00:00: mouth 2 (two) Medical times Branch daily. bumetanide 2020-06 Yes [id number] 2mg Take 2 Univers 1 mg tablet 0-25 02 tablets by it y of 00:00: mouth 2 (two) Medical times Branch daily. bumetanide 2020-06 Yes [id number] 2mg Take 2 Univers 1 mg tablet 0-25 02 tablets by it y of 00:00: mouth 2 (two) Medical times Branch daily. bumetanide 2020-06 Yes [id number] 2mg Take 2 Univers 1 mg tablet 0-25 02 tablets by it y of 00:00: mouth 2 (two) Medical times Branch daily. bumetanide 2020-06 Yes [id number] 2mg Take 2 Univers 1 mg tablet 0-25 02 tablets by it y of 00:00: mouth (two) Medical times Branch daily. bumetanide 2020-06 Yes [id number] 2mg Take 2 Univers 1 mg tablet 0-25 02 tablets by it y of 00:00: mouth [place] (two) Medical times Branch daily. bumetanide 2020-06 Yes [id number] 2mg Take 2 Univers 1 mg tablet 0-25 02 tablets by it y of 00:00: mouth (two) Medical times Branch daily. amitriptyli Yes [id number] 10mg Take 1 Univers ne 10 mg 9-21 tablet by ity of tablet 00:00: mouth at [place] [address] bedtime. Medical Branch amitriptyli Yes [id number] 10mg Take 1 Univers ne 10 mg 9-21 tablet by ity of tablet 00:00: mouth at [place] [address] bedtime. Medical Branch amitriptyli Yes [id number] 10mg Take 1 Univers ne 10 mg 9-21 tablet by ity of tablet 00:00: mouth at [place] [address] bedtime. Medical Branch amitriptyli Yes [id number] 10mg Take 1 Univers ne 10 mg 9-21 tablet by ity of tablet 00:00: mouth at [place] [address] bedtime. Medical Branch amitriptyli Yes [id number] 10mg Take 1 Univers ne 10 mg 9-21 tablet by ity of tablet 00:00: mouth at [place] [address] bedtime. Medical Branch amitriptyli Yes [id number] 10mg Take 1 Univers ne 10 mg 9-21 tablet by ity of tablet 00:00: mouth at [place] [address] bedtime. Medical Branch amitriptyli 0 Yes [id number] 10mg Take 1 Univers ne 10 mg 9-21 tablet by ity of tablet 00:00: mouth at [place] [address] bedtime. Medical Branch amitriptyli 0 Yes [id number] 10mg Take 1 Univers ne 10 mg 9-21 tablet by ity of tablet 00:00: mouth at [place] [address] bedtime. Medical Branch amitriptyli 0 Yes [id number] 10mg Take 1 Univers ne 10 mg 9-21 tablet by ity of tablet 00:00: mouth at [place] [address] bedtime. Medical Branch amitriptyli Yes [id number] 10mg Take 1 Univers ne 10 mg 9-21 tablet by ity of tablet 00:00: mouth at [place] [address] bedtime. Medical Branch amitriptyli Yes [id number] 10mg Take 1 Univers ne 10 mg 9-21 tablet by ity of tablet 00:00: mouth at [place] [address] bedtime. Medical Branch ADVAIR Yes [id number] INHALE 1 Un [facility] DISKUS 9-03 PUFF BY ity of 250-50 00:00: MOUTH INTO [place] mcg/dose 00 THE LUNGS Medica l inhalation TWICE Branch disk DAILY ADVAIR Yes [id number] INHALE 1 [facility] [place] DISKUS 9-03 PUFF BY ity of 250-50 00:00: MOUTH INTO [place] mcg/dose 00 THE LUNGS Medica l inhalation TWICE Branch disk DAILY ADVAIR Yes [id number] INHALE 1 [facility] [place] DISKUS 9-03 PUFF BY ity of 250-50 00:00: MOUTH INTO [place] mcg/dose 00 THE LUNGS Medica l inhalation TWICE Branch disk DAILY ADVAIR Yes [id number] INHALE 1 [facility] [place] DISKUS 9-03 PUFF BY ity of 250-50 00:00: MOUTH INTO [place] mcg/dose 00 THE LUNGS Medica l inhalation TWICE Branch disk DAILY ADVAIR 0 Yes [id number] INHALE 1 [facility] [place] DISKUS 9-03 PUFF BY ity of 250-50 00:00: MOUTH INTO [place] mcg/dose 00 THE LUNGS Medica l inhalation TWICE Branch disk DAILY ADVAIR Yes [id number] INHALE 1 [facility] [place] DISKUS 9-03 PUFF BY ity of 250-50 00:00: MOUTH INTO [place] mcg/dose 00 THE LUNGS Medica l inhalation TWICE Branch disk DAILY ADVAIR Yes [id number] INHALE 1 [facility] [place] DISKUS 9-03 PUFF BY ity of 250-50 00:00: MOUTH INTO [place] mcg/dose 00 THE LUNGS Medica l inhalation TWICE Branch disk DAILY ADVAIR Yes [id number] INHALE 1 [facility] [place] DISKUS 9-03 PUFF BY ity of 250-50 00:00: MOUTH INTO [place] mcg/dose 00 THE LUNGS Medica l inhalation TWICE Branch disk DAILY ADVAIR Yes [id number] INHALE 1 [facility] [place] DISKUS 9-03 PUFF BY ity of 250-50 00:00: MOUTH INTO [place] mcg/dose 00 THE LUNGS Medica l inhalation TWICE Branch disk DAILY ADVAIR Yes [id number] INHALE 1 [facility] [place] DISKUS 9-03 PUFF BY ity of 250-50 00:00: MOUTH INTO [place] mcg/dose 00 THE LUNGS Medica l inhalation TWICE Branch disk DAILY ADVAIR Yes [id number] INHALE 1 [facility] [place] DISKUS 9-03 PUFF BY ity of 250-50 00:00: MOUTH INTO [place] mcg/dose 00 THE LUNGS Medica l inhalation TWICE Branch disk DAILY bacitracin- 2020-0 Yes [id number] Apply to [facility] polymyxin B 02-08 area(s) 2 ity of 500-10,000 00:00: (two) [place] unit/gram 00 times Medical topical daily. Branch ointment bacitracin- 1-0 Yes [id number] Apply to [facility] polymyxin B 02-08 area(s) 2 ity of 500-10,000 00:00: (two) [place] unit/gram 00 times Medical topical daily. Branch ointment bacitracin- 1-0 Yes [id number] Apply to [facility] polymyxin B 02-08 area(s) 2 ity of 500-10,000 00:00: (two) [place] unit/gram 00 times Medical topical daily. Branch ointment bacitracin- 1-0 Yes [id number] Apply to [facility] polymyxin B 02-08 area(s) 2 ity of 500-10,000 00:00: (two) [place] unit/gram 00 times Medical topical daily. Branch ointment bacitracin- 1-0 Yes [id number] Apply to [facility] polymyxin B 02-08 area(s) 2 ity of 500-10,000 00:00: (two) [place] unit/gram 00 times Medical topical daily. Branch ointment bacitracin- 1-0 Yes [id number] Apply to [facility] polymyxin B 02-08 area(s) 2 ity of 500-10,000 00:00: (two) [place] unit/gram 00 times Medical topical daily. Branch ointment bacitracin- 1-0 Yes [id number] Apply to [facility] polymyxin B 02-08 area(s) 2 ity of 500-10,000 00:00: (two) [place] unit/gram 00 times Medical topical daily. Branch ointment bacitracin- 1-0 Yes [id number] Apply to [facility] polymyxin B 02-08 area(s) 2 ity of 500-10,000 00:00: (two) [place] unit/gram 00 times Medical topical daily. Branch ointment bacitracin- 1-0 Yes [id number] Apply to [facility] polymyxin B 02-08 area(s) 2 ity of 500-10,000 00:00: (two) [place] unit/gram 00 times Medical topical daily. Branch ointment bacitracin- 1-0 Yes [id number] Apply to [facility] polymyxin B 02-08 area(s) 2 ity of 500-10,000 00:00: (two) [place] unit/gram 00 times Medical topical daily. Branch ointment bacitracin- 2021-0 Yes [id number] Apply to [facility] polymyxin B 02-08 area(s) 2 ity of 500-10,000 00:00: (two) [place] unit/gram 00 times Medical topical daily. Branch ointment carvediloL 1-0 Yes [id number] 25mg Take 1 [facility] 25 mg 8-30 tablet by ity of tablet 00:00: mouth 2 [place] 00 (two) Medical times Branch daily with meals. ergocalcife 0 Yes [id number] Take 1 [facility] rol, 8-30 capsule by ity of vitamin d2, 00:00: mouth [place] 1,250 mcg 00 weekly. Medical (50,000 Branch unit) capsule pantoprazol 0 Yes [id number] 40mg Take 1 [facility] e 40 mg EC 8-30 tablet by ity of tablet 00:00: mouth 2 (two) Medical times Branch daily. Sennosides Yes [id number] 17.2mg Take 17.2 [facility] 17.2 mg Tab 8-30 mg by ity of 00:00: mouth 2 (two) Medical times Branch daily. albuterol 0 Yes [id number] INHALE 2 [facility] 90 8-30 PUFFS INTO ity of mcg/actuati 00:00: [place]GS [place] on inhaler 00 THREE Medical TIMES Branch DAILY NEEDED FOR SHORTNESS OF BREATH apixaban 0 Yes [id number] 5mg Take 1 [facility] (ELIQUIS) 5 8-30 tablet by ity of mg tablet 00:00: mouth (two) Medical times Branch daily. Indication s: atrial fibrillati on, a fib and DVT tamsulosin Yes [id number] .4mg Take 1 [facility] 0.4 mg 24 8-30 capsule by ity of hr capsule 00:00: mouth 2 [place] (two) Medical times Branch daily. carvediloL Yes [id number] 25mg Take 1 [facility] 25 mg 8-30 tablet by ity of tablet 00:00: mouth (two) Medical times Branch daily with meals. ergocalcife 0 Yes [id number] Take 1 [facility] rol, 8-30 capsule by ity of vitamin d2, 00:00: mouth [place] 1,250 mcg 00 weekly. Medical (50,000 Branch unit) capsule pantoprazol 0 Yes [id number] 40mg Take 1 [facility] e 40 mg EC 8-30 tablet by ity of tablet 00:00: mouth 2 (two) Medical times Branch daily. Sennosides 0 Yes [id number] 17.2mg Take 17.2 [facility] 17.2 mg Tab 8-30 mg by ity of 00:00: mouth [address] [place] [address] (two) Medical times Branch daily. albuterol Yes [id number] INHALE 2 [facility] 90 8-30 PUFFS INTO ity of mcg/actuati 00:00: THE LUNGS [place] on inhaler 00 THREE Medical TIMES Branch DAILY NEEDED FOR SHORTNESS OF BREATH apixaban Yes [id number] 5mg Take 1 [facility] (ELIQUIS) 5 8-30 tablet by ity of mg tablet 00:00: mouth [address] [place] [address] (two) Medical times Branch daily. Indication s: atrial fibrillati on, a fib and DVT tamsulosin Yes [id number] .4mg Take 1 [facility] 0.4 mg 24 8-30 capsule by ity of hr capsule 00:00: mouth [facility] (two) Medical times Branch daily. carvediloL Yes [id number] 25mg Take 1 [facility] 25 mg 8-30 tablet by ity of tablet 00:00: [address] ([facility]) Medical times Branch daily with meals. ergocalcife Yes [id number] Take 1 [facility] rol, 8-30 capsule by ity of vitamin d2, 00:00: mouth [place] 1,250 mcg 00 weekly. Medical (50,000 Branch unit) capsule pantoprazol Yes [id number] 40mg Take 1 [facility] e 40 mg EC 8-30 tablet by ity of tablet 00:00: mouth [address] [place] [address] (two) Medical times Branch daily. Sennosides Yes [id number] 17.2mg Take 17.2 [facility] 17.2 mg Tab 8-30 mg by ity of 00:00: mouth [address] [place] [address] (two) Medical times Branch daily. albuterol Yes [id number] INHALE 2 [facility] 90 8-30 PUFFS INTO ity of mcg/actuati 00:00: THE LUNGS [place] on inhaler 00 THREE Medical TIMES Branch DAILY NEEDED FOR SHORTNESS OF BREATH apixaban 2020-0 Yes 1358 5mg Take 1 [facility] (ELIQUIS) 5 8-30 tablet by ity of mg tablet 00:00: mouth [address] [place] [address] (two) Medical times Branch daily. Indication s: atrial fibrillati on, a fib and DVT tamsulosin 2021-0 Yes [id number] .4mg Take 1 [facility] 0.4 mg 24 8-30 capsule by ity of hr capsule 00:00: mouth 2 [place] (two) Medical times Branch daily. carvediloL 0 Yes [id number] 25mg Take 1 [facility] 25 mg 8-30 tablet by ity of tablet 00:00: mouth 2 [place] (two) Medical times Branch daily with meals. ergocalcife 2020-0 Yes [id number] Take 1 [facility] rol, 8-30 capsule by ity of vitamin d2, 00:00: mouth [place] 1,250 mcg 00 weekly. Medical (50,000 Branch unit) capsule pantoprazol Yes [id number] 40mg Take 1 [facility] e 40 mg EC 8-30 tablet by ity of tablet 00:00: mouth 2 [place] (two) Medical times Branch daily. Sennosides Yes [id number] 17.2mg Take 17.2 [facility] 17.2 mg Tab 8-30 mg by ity of 00:00: mouth (two) Medical times Branch daily. albuterol Yes [id number] INHALE 2 [facility] 90 8-30 PUFFS INTO ity of mcg/actuati 00:00: THE LUNGS [place] on inhaler 00 THREE Medical TIMES Branch DAILY NEEDED FOR SHORTNESS OF BREATH apixaban 0 Yes 1358 5mg Take 1 [facility] (ELIQUIS) 5 8-30 tablet by ity of mg tablet 00:00: mouth (two) Medical times Branch daily. Indication s: atrial fibrillati on, a fib and DVT tamsulosin 0 Yes [id number] .4mg Take 1 [facility] 0.4 mg 24 8-30 capsule by ity of hr capsule 00:00: mouth 2 [place] (two) Medical times Branch daily. carvediloL 0 Yes [id number] 25mg Take 1 [facility] 25 mg 8-30 tablet by ity of tablet 00:00: mouth 2 (two) Medical times Branch daily with meals. ergocalcife 2020-0 Yes [id number] Take 1 [facility] rol, 8-30 capsule by ity of vitamin d2, 00:00: mouth [place] 1,250 mcg 00 weekly. Medical (50,000 Branch unit) capsule pantoprazol Yes [id number] 40mg Take 1 [facility] e 40 mg EC 8-30 tablet by ity of tablet 00:00: mouth 2 (two) Medical times Branch daily. Sennosides Yes [id number] 17.2mg Take 17.2 [facility] 17.2 mg Tab 8-30 mg by ity of 00:00: mouth 2 (two) Medical times Branch daily. albuterol Yes [id number] INHALE 2 [facility] 90 8-30 PUFFS INTO ity of mcg/actuati 00:00: THE LUNGS [place] on inhaler 00 THREE Medical TIMES Branch DAILY NEEDED FOR SHORTNESS OF BREATH apixaban Yes 1358 5mg Take 1 [facility] (ELIQUIS) 5 8-30 tablet by ity of mg tablet 00:00: mouth (two) Medical times Branch daily. Indication s: atrial fibrillati on, a fib and DVT tamsulosin Yes [id number] .4mg Take 1 [facility] 0.4 mg 24 8-30 capsule by ity of hr capsule 00:00: mouth 2 [place] (two) Medical times Branch daily. carvediloL Yes [id number] 25mg Take 1 [facility] 25 mg 8-30 tablet by ity of tablet 00:00: mouth 2 (two) Medical times Branch daily with meals. ergocalcife Yes [id number] Take 1 [facility] rol, 8-30 capsule by ity of vitamin d2, 00:00: mouth [place] 1,250 mcg 00 weekly. Medical (50,000 Branch unit) capsule pantoprazol Yes [id number] 40mg Take 1 [facility] e 40 mg EC 8-30 tablet by ity of tablet 00:00: mouth 2 (two) Medical times Branch daily. Sennosides Yes [id number] 17.2mg Take 17.2 [facility] 17.2 mg Tab 8-30 mg by ity of 00:00: mouth 2 [place] 00 (two) Medical times Branch daily. albuterol 0 Yes [id number] INHALE 2 [facility] 90 8-30 PUFFS INTO ity of mcg/actuati 00:00: THE LUNGS [place] on inhaler 00 THREE Medical TIMES Branch DAILY NEEDED FOR SHORTNESS OF BREATH apixaban Yes 1358 5mg Take 1 [facility] (ELIQUIS) 5 8-30 tablet by ity of mg tablet 00:00: mouth 2 (two) Medical times Branch daily. Indication s: atrial fibrillati on, a fib and DVT tamsulosin Yes [id number] .4mg Take 1 [facility] 0.4 mg 24 8-30 capsule by ity of hr capsule 00:00: mouth 2 [place] (two) Medical times Branch daily. carvediloL Yes [id number] 25mg Take 1 [facility] 25 mg 8-30 tablet by ity of tablet 00:00: mouth (two) Medical times Branch daily with meals. ergocalcife Yes [id number] Take 1 [facility] rol, 8-30 capsule by ity of vitamin d2, 00:00: mouth [place] 1,250 mcg 00 weekly. Medical (50,000 Branch unit) capsule pantoprazol Yes [id number] 40mg Take 1 [facility] e 40 mg EC 8-30 tablet by ity of tablet 00:00: mouth (two) Medical times Branch daily. Sennosides Yes [id number] 17.2mg Take 17.2 [facility] 17.2 mg Tab 8-30 mg by ity of 00:00: mouth 2 (two) Medical times Branch daily. albuterol Yes [id number] INHALE 2 [facility] 90 8-30 PUFFS INTO ity of mcg/actuati 00:00: THE LUNGS [place] on inhaler 00 THREE Medical TIMES Branch DAILY NEEDED FOR SHORTNESS OF BREATH apixaban Yes 1358 5mg Take 1 [facility] (ELIQUIS) 5 8-30 tablet by ity of mg tablet 00:00: mouth 2 (two) Medical times Branch daily. Indication s: atrial fibrillati on, a fib and DVT tamsulosin Yes [id number] .4mg Take 1 [facility] 0.4 mg 24 8-30 capsule by ity of hr capsule 00:00: mouth [facility] Branch daily. carvediloL Yes [id number] 25mg Take 1 [facility] 25 mg 8-30 tablet by ity of tablet 00:00: mouth (two) Medical times Branch daily with meals. ergocalcife 0 Yes [id number] Take 1 [facility] rol, 8-30 capsule by ity of vitamin d2, 00:00: mouth [place] 1,250 mcg 00 weekly. Medical (50,000 Branch unit) capsule pantoprazol Yes [id number] 40mg Take 1 [facility] e 40 mg EC 8-30 tablet by ity of tablet 00:00: mouth (two) Medical times Branch daily. Sennosides Yes [id number] 17.2mg Take 17.2 [facility] 17.2 mg Tab 8-30 mg by ity of 00:00: mouth (two) Medical times Branch daily. albuterol Yes [id number] INHALE 2 [facility] 90 8-30 PUFFS INTO ity of mcg/actuati 00:00: THE LUNGS [place] on inhaler 00 THREE Medical TIMES Branch DAILY NEEDED FOR SHORTNESS OF BREATH apixaban Yes [id number] 5mg Take 1 [facility] (ELIQUIS) 5 8-30 tablet by ity of mg tablet 00:00: mouth (two) Medical times Branch daily. Indication s: atrial fibrillati on, a fib and DVT tamsulosin Yes [id number] .4mg Take 1 [facility] 0.4 mg 24 8-30 capsule by ity of hr capsule 00:00: mouth [facility] (two) Medical times Branch daily. carvediloL Yes [id number] 25mg Take 1 [facility] 25 mg 8-30 tablet by ity of tablet 00:00: mouth (two) Medical times Branch daily with meals. ergocalcife 0 Yes [id number] Take 1 [facility] rol, 8-30 capsule by ity of vitamin d2, 00:00: mouth [place] 1,250 mcg 00 weekly. Medical (50,000 Branch unit) capsule pantoprazol 0 Yes [id number] 40mg Take 1 [facility] e 40 mg EC 8-30 tablet by ity of tablet 00:00: mouth (two) Medical times Branch daily. Sennosides Yes [id number] 17.2mg Take 17.2 [facility] 17.2 mg Tab 8-30 mg by ity of 00:00: mouth [address] [place] [address] (two) Medical times Branch daily. albuterol Yes [id number] INHALE 2 [facility] 90 8-30 PUFFS INTO ity of mcg/actuati 00:00: THE LUNGS [place] on inhaler 00 THREE Medical TIMES Branch DAILY NEEDED FOR SHORTNESS OF BREATH apixaban Yes 1358 5mg Take 1 [facility] (ELIQUIS) 5 8-30 tablet by ity of mg tablet 00:00: mouth [address] [place] [address] (two) Medical times Branch daily. Indication s: atrial fibrillati on, a fib and DVT tamsulosin Yes [id number] .4mg Take 1 [facility] 0.4 mg 24 8-30 capsule by ity of hr capsule 00:00: mouth [address] [place] [address] (two) Medical times Branch daily. carvediloL Yes [id number] 25mg Take 1 [facility] 25 mg 8-30 tablet by ity of tablet 00:00: [address] (two) Medical times Branch daily with meals. ergocalcife Yes [id number] Take 1 [facility] rol, 8-30 capsule by ity of vitamin d2, 00:00: mouth [place] 1,250 mcg 00 weekly. Medical (50,000 Branch unit) capsule pantoprazol Yes [id number] 40mg Take 1 [facility] e 40 mg EC 8-30 tablet by ity of tablet 00:00: [address] (two) Medical times Branch daily. Sennosides Yes [id number] 17.2mg Take 17.2 [facility] 17.2 mg Tab 8-30 mg by ity of 00:00: mouth [address] [place] [address] (two) Medical times Branch daily. albuterol Yes [id number] INHALE 2 [facility] 90 8-30 PUFFS INTO ity of mcg/actuati 00:00: THE LUNGS [place] on inhaler 00 THREE Medical TIMES Branch DAILY NEEDED FOR SHORTNESS OF BREATH apixaban 0 Yes 1358 5mg Take 1 [facility] (ELIQUIS) 5 8-30 tablet by ity of mg tablet 00:00: mouth 2 [place] (two) Medical times Branch daily. Indication s: atrial fibrillati on, a fib and DVT tamsulosin Yes [id number] .4mg Take 1 [facility] 0.4 mg 24 8-30 capsule by ity of hr capsule 00:00: mouth 2 [place] (two) Medical times Branch daily. carvediloL 0 Yes [id number] 25mg Take 1 [facility] 25 mg 8-30 tablet by ity of tablet 00:00: mouth 2 [place] (two) Medical times Branch daily with meals. ergocalcife 0 Yes [id number] Take 1 [facility] rol, 8-30 capsule by ity of vitamin d2, 00:00: mouth [place] 1,250 mcg 00 weekly. Medical (50,000 Branch unit) capsule pantoprazol Yes [id number] 40mg Take 1 [facility] e 40 mg EC 8-30 tablet by ity of tablet 00:00: mouth 2 [place] (two) Medical times Branch daily. Sennosides Yes [id number] 17.2mg Take 17.2 [facility] 17.2 mg Tab 8-30 mg by ity of 00:00: mouth 2 [place] (two) Medical times Branch daily. albuterol Yes [id number] INHALE 2 [facility] 90 8-30 PUFFS INTO ity of mcg/actuati 00:00: THE LUNGS [place] on inhaler 00 THREE Medical TIMES Branch DAILY NEEDED FOR SHORTNESS OF BREATH apixaban 0 Yes 1358 5mg Take 1 [facility] (ELIQUIS) 5 8-30 tablet by ity of mg tablet 00:00: mouth 2 [place] (two) Medical times Branch daily. Indication s: atrial fibrillati on, a fib and DVT tamsulosin 2020-0 Yes [id number] .4mg Take 1 [facility] 0.4 mg 24 8-30 capsule by ity of hr capsule 00:00: mouth 2 [place] (two) Medical times Branch daily. divalproex 0 Yes 1500mg Take 1,500 [facility] ER 500 mg 7-01 mg by ity of 24 hr 00:00: mouth at [place] tablet 00 bedtime. Medical Take 3 Branch tablets by mouth at Bedtime divalproex 2021-0 Yes 1500mg Take 1,500 [facility] ER 500 mg 7-01 mg by ity of 24 hr 00:00: mouth at [place] tablet 00 bedtime. Medical Take 3 Branch tablets by mouth at Bedtime divalproex 2021-0 Yes 1500mg Take 1,500 [facility] ER 500 mg 7-01 mg by ity of 24 hr 00:00: mouth at [place] tablet 00 bedtime. Medical Take 3 Branch tablets by mouth at Bedtime divalproex 2021-0 Yes 1500mg Take 1,500 [facility] ER 500 mg 7-01 mg by ity of 24 hr 00:00: mouth at [place] tablet 00 bedtime. Medical Take 3 Branch tablets by mouth at Bedtime divalproex 2021-0 Yes 1500mg Take 1,500 [facility] ER 500 mg 7-01 mg by ity of 24 hr 00:00: mouth at [place] tablet 00 bedtime. Medical Take 3 Branch tablets by mouth at Bedtime divalproex 2021-0 Yes 1500mg Take 1,500 [facility] ER 500 mg 7-01 mg by ity of 24 hr 00:00: mouth at [place] tablet 00 bedtime. Medical Take 3 Branch tablets by mouth at Bedtime divalproex 2021-0 Yes 1500mg Take 1,500 [facility] ER 500 mg 7-01 mg by ity of 24 hr 00:00: mouth at [place] tablet 00 bedtime. Medical Take 3 Branch tablets by mouth at Bedtime divalproex 2021-0 Yes 1500mg Take 1,500 [facility] ER 500 mg 7-01 mg by ity of 24 hr 00:00: mouth at [place] tablet 00 bedtime. Medical Take 3 Branch tablets by mouth at Bedtime divalproex 2021-0 Yes 1500mg Take 1,500 [facility] ER 500 mg 7-01 mg by ity of 24 hr 00:00: mouth at [place] tablet 00 bedtime. Medical Take 3 Branch tablets by mouth at Bedtime divalproex 2021-0 Yes 1500mg Take 1,500 [facility] ER 500 mg 7-01 mg by ity of 24 hr 00:00: mouth at [place] tablet 00 bedtime. Medical Take 3 Branch tablets by mouth at Bedtime divalproex 2021-0 Yes 1500mg Take 1,500 [facility] ER 500 mg 7-01 mg by ity of 24 hr 00:00: mouth at [place] tablet 00 bedtime. Medical Take 3 Branch tablets by mouth at Bedtime nitroglycer 2020-0 Yes Univer s in 0.4 mg 6-23 ity of sublingual 00:00: [place] tablet 00 Medical Branch nitroglycer 2020-0 Yes Univer s in 0.4 mg 6-23 ity of sublingual 00:00: [place] tablet 00 Medical Branch nitroglycer 2020-0 Yes Univer s in 0.4 mg 6-23 ity of sublingual 00:00: [place] tablet 00 Medical Branch nitroglycer 2020-0 Yes Univer s in 0.4 mg 6-23 ity of sublingual 00:00: [place] tablet 00 Medical Branch nitroglycer 2020-0 Yes Univer s in 0.4 mg 6-23 ity of sublingual 00:00: [place] tablet 00 Medical Branch nitroglycer 2020-0 Yes Univer s in 0.4 mg 6-23 ity of sublingual 00:00: [place] tablet 00 Medical Branch nitroglycer 2020-0 Yes Univer s in 0.4 mg 6-23 ity of sublingual 00:00: [place] tablet 00 Medical Branch nitroglycer 2020-0 Yes Univer s in 0.4 mg 6-23 ity of sublingual 00:00: [place] tablet 00 Medical Branch nitroglycer 2020-0 Yes Univer s in 0.4 mg 6-23 ity of sublingual 00:00: [place] tablet 00 Medical Branch nitroglycer 2020-0 Yes Univer s in 0.4 mg 6-23 ity of sublingual 00:00: [place] tablet 00 Medical Branch nitroglycer 2020-0 Yes Univer s in 0.4 mg 6-23 ity of sublingual 00:00: [place] tablet 00 Medical Branch Gauze 2020-0 Yes [id number] Use as Unive rs Bandage 5-26 directed ity of (KERLIX) 4 00:00: [place] X 4 " Spge 00 Medical Branch Bismuth 2020-0 Yes [id number] Use as Uni vers Tribrom-Pet 5-26 directed ity of rolatum,Wh 00:00: [place] (XEROFORM 00 Medical PETROLATUM Branch DRESSING) 4 X 4 " Bndg Gauze 2020-0 Yes [id number] Use as Unive rs Bandage 5-26 directed ity of (KERLIX) 4 00:00: [place] X 4 " Spge 00 Medical Branch Bismuth 202-0 Yes [id number] Use as Uni vers Tribrom-Pet 5-26 directed ity of rolatum,Wh 00:00: [place] (XEROFORM 00 Medical PETROLATUM Branch DRESSING) 4 X 4 " Bndg Gauze 202-0 Yes [id number] Use as Unive rs Bandage 5-26 directed ity of (KERLIX) 4 00:00: [place] X 4 " Spge 00 Medical Branch Bismuth 2020-0 Yes [id number] Use as Uni vers Tribrom-Pet 5-26 directed ity of rolatum,Wh 00:00: [place] (XEROFORM 00 Medical PETROLATUM Branch DRESSING) 4 X 4 " Bndg Gauze 2020-0 Yes [id number] Use as Unive rs Bandage 5-26 directed ity of (KERLIX) 4 00:00: [place] X 4 " Spge 00 Medical Branch Bismuth 2020-0 Yes [id number] Use as Uni vers Tribrom-Pet 5-26 directed ity of rolatum,Wh 00:00: [place] (XEROFORM 00 Medical PETROLATUM Branch DRESSING) 4 X 4 " Bndg Gauze 202-0 Yes [id number] Use as Unive rs Bandage 5-26 directed ity of (KERLIX) 4 00:00: [place] X 4 " Spge 00 Medical Branch Bismuth 2020-0 Yes [id number] Use as Uni vers Tribrom-Pet 5-26 directed ity of rolatum,Wh 00:00: [place] (XEROFORM 00 Medical PETROLATUM Branch DRESSING) 4 X 4 " Bndg Gauze 202-0 Yes [id number] Use as Unive rs Bandage 5-26 directed ity of (KERLIX) 4 00:00: [place] X 4 " Spge 00 Medical Branch Bismuth 2020-0 Yes [id number] Use as Uni vers Tribrom-Pet 5-26 directed ity of rolatum,Wh 00:00: [place] (XEROFORM 00 Medical PETROLATUM Branch DRESSING) 4 X 4 " Bndg Gauze 2021-0 Yes [id number] Use as Unive rs Bandage 5-26 directed ity of (KERLIX) 4 00:00: [place] X 4 " Spge 00 Medical Branch Bismuth 2020-0 Yes [id number] Use as Uni vers Tribrom-Pet 5-26 directed ity of rolatum,Wh 00:00: [place] (XEROFORM 00 Medical PETROLATUM Branch DRESSING) 4 X 4 " Bndg Gauze 2020-0 Yes [id number] Use as Unive rs Bandage 5-26 directed ity of (KERLIX) 4 00:00: [place] X 4 " Spge 00 Medical Branch Bismuth 2020-0 Yes [id number] Use as Uni vers Tribrom-Pet 5-26 directed ity of rolatum,Wh 00:00: [place] (XEROFORM 00 Medical PETROLATUM Branch DRESSING) 4 X 4 " Bndg Gauze 2020-0 Yes [id number] Use as Unive rs Bandage 5-26 directed ity of (KERLIX) 4 00:00: [place] X 4 " Spge 00 Medical Branch Bismuth 2020-0 Yes [id number] Use as Uni vers Tribrom-Pet 5-26 directed ity of rolatum,Wh 00:00: [place] (XEROFORM 00 Medical PETROLATUM Branch DRESSING) 4 X 4 " Bndg Gauze 2020-0 Yes [id number] Use as Unive rs Bandage 5-26 directed ity of (KERLIX) 4 00:00: [place] X 4 " Spge 00 Medical Branch Bismuth 2020-0 Yes [id number] Use as Uni vers Tribrom-Pet 5-26 directed ity of rolatum,Wh 00:00: [place] (XEROFORM 00 Medical PETROLATUM Branch DRESSING) 4 X 4 " Bndg Gauze 2020-0 Yes [id number] Use as Unive rs Bandage 5-26 directed ity of (KERLIX) 4 00:00: [place] X 4 " Spge 00 Medical Branch Bismuth 2020-0 Yes [id number] Use as Uni vers Tribrom-Pet 5-26 directed ity of rolatum,Wh 00:00: [place] (XEROFORM 00 Medical PETROLATUM Branch DRESSING) 4 X 4 " Bndg Insulin 2020-0 Yes USE [facility] Fr[place], 3-15 DIRECTED ity of Disposable, 00:00: THREE [place] (PEN 00 TIMES Medical NEEDLE) 31 DAILY TO [facility] h gauge x INJECT 3/16" Ndle INSULIN Insulin 2020-0 Yes USE [facility] [place], 3-15 DIRECTED ity of Disposable, 00:00: THREE [place] (PEN 00 TIMES Medical NEEDLE) 31 DAILY TO Branc h gauge x INJECT 3/16" Ndle INSULIN Insulin 2020-0 Yes USE [facility] [place], 3-15 DIRECTED ity of Disposable, 00:00: THREE [place] (PEN 00 TIMES Medical NEEDLE) 31 DAILY TO Branc h gauge x INJECT 3/16" Ndle INSULIN Insulin 2020-0 Yes USE [facility] [place], 3-15 DIRECTED ity of Disposable, 00:00: THREE [place] (PEN 00 TIMES Medical NEEDLE) 31 DAILY TO Branc h gauge x INJECT 3/16" Ndle INSULIN Insulin 2020-0 Yes USE [facility] [place], 3-15 DIRECTED ity of Disposable, 00:00: THREE [place] (PEN 00 TIMES Medical NEEDLE) 31 DAILY TO Branc h gauge x INJECT 3/16" Ndle INSULIN Insulin 2020-0 Yes USE [facility] [place], 3-15 DIRECTED ity of Disposable, 00:00: THREE [place] (PEN 00 TIMES Medical NEEDLE) 31 DAILY TO Branc h gauge x INJECT 3/16" Ndle INSULIN Insulin 2020-0 Yes USE [facility] [place], 3-15 DIRECTED ity of Disposable, 00:00: THREE [place] (PEN 00 TIMES Medical NEEDLE) 31 DAILY TO Branc h gauge x INJECT 3/16" Ndle INSULIN Insulin 2020-0 Yes USE [facility] [place], 3-15 DIRECTED ity of Disposable, 00:00: THREE [place] (PEN 00 TIMES Medical NEEDLE) 31 DAILY TO Branc h gauge x INJECT 3/16" Ndle INSULIN Insulin 2020-0 Yes USE [facility] [place], 3-15 DIRECTED ity of Disposable, 00:00: THREE [place] (PEN 00 TIMES Medical NEEDLE) 31 DAILY TO Branc h gauge x INJECT 3/16" Ndle INSULIN Insulin 2020-0 Yes USE [facility] [place], 3-15 DIRECTED ity of Disposable, 00:00: THREE [place] (PEN 00 TIMES Medical NEEDLE) 31 DAILY TO Branc h gauge x INJECT 3/16" Ndle INSULIN Insulin 2020-0 Yes USE [facility] [place], 3-15 DIRECTED ity of Disposable, 00:00: THREE [place] (PEN 00 TIMES Medical NEEDLE) 31 DAILY TO Branc h gauge x INJECT 3/16" [place] INSULIN traMADoL 50 2020-0 Yes 1 tablet Un [place] mg tablet 3-09 as needed ity o f 00:00: [place] 00 Medical Branch HYDROcodone 1-0 Yes 1 tablet Un [place] -acetaminop 3-09 as needed ity of hen 10-325 00:00: [place] mg tablet 00 Medical Branch traMADoL 50 2020-0 Yes 1 tablet Un [place] mg tablet 3-09 as needed ity o f 00:00: [place] 00 Medical Branch HYDROcodone 2020-0 Yes 1 tablet Un [place] -acetaminop 3-09 as needed ity of hen 10-325 00:00: [place] mg tablet 00 Medical Branch traMADoL 50 2020-0 Yes 1 tablet Un [place] mg tablet 3-09 as needed ity o f 00:00: [place] 00 Medical Branch HYDROcodone 2020-0 Yes 1 tablet Un [place] -acetaminop 3-09 as needed ity of hen 10-325 00:00: [place] mg tablet 00 Medical Branch traMADoL 50 2020-0 Yes 1 tablet Un [place] mg tablet 3-09 as needed ity o f 00:00: [place] 00 Medical Branch HYDROcodone 2020-0 Yes 1 tablet Un [place] -acetaminop 3-09 as needed ity of hen 10-325 00:00: [place] mg tablet 00 Medical Branch traMADoL 50 2020-0 Yes 1 tablet Un [place] mg tablet 3-09 as needed ity o f 00:00: [place] 00 Medical Branch HYDROcodone 1-0 Yes 1 tablet Un [place] -acetaminop 3-09 as needed ity of hen 10-325 00:00: [place] mg tablet 00 Medical Branch traMADoL 50 1-0 Yes 1 tablet Un [place] mg tablet 3-09 as needed ity o f 00:00: [place] 00 Medical Branch HYDROcodone 1-0 Yes 1 tablet Un [place] -acetaminop 3-09 as needed ity of hen 10-325 00:00: [place] mg tablet 00 Medical Branch traMADoL 50 2020-0 Yes 1 tablet Un [place] mg tablet 3-09 as needed ity o f 00:00: [place] 00 Medical Branch HYDROcodone 2021-0 Yes 1 tablet Un [place] -acetaminop 3-09 as needed ity of hen 10-325 00:00: [place] mg tablet 00 Medical Branch traMADoL 50 2021-0 Yes 1 tablet Un [place] mg tablet 3-09 as needed ity o f 00:00: Medical Branch HYDROcodone 2020-0 Yes 1 tablet Un [place] -acetaminop 3-09 as needed ity of hen 10-325 00:00: [place] mg tablet 00 Medical Branch traMADoL 50 Yes 1 tablet Un [place] mg tablet 3-09 as needed ity o f 00:00: Medical Branch HYDROcodone 2020-0 Yes 1 tablet Un [place] -acetaminop 3-09 as needed ity of hen 10-325 00:00: [place] mg tablet 00 Medical Branch traMADoL 50 Yes 1 tablet Un [place] mg tablet 3-09 as needed ity o f 00:00: Medical Branch HYDROcodone Yes 1 tablet Un [place] -acetaminop 3-09 as needed ity of hen 10-325 00:00: [place] mg tablet 00 Medical Branch traMADoL 50 Yes 1 tablet Un ur[place] mg tablet 3-09 as needed ity o f 00:00: Medical Branch HYDROcodone Yes 1 tablet Un [place] -acetaminop 3-09 as needed ity of hen 10-325 00:00: [place] mg tablet 00 Medical Branch Victoza Victoza Yes Sylvain Inject 1.8 C ommon Dietrich mg/day [facility] Albuterol Albuterol Yes Sylvain 1 puff as Common Sulfate HFA Sulfate HFA Dietrich needed [facility] Duloxetine Duloxetine Yes Sylvain 1 capsule Common HCl HCl Dietrich [facility] Clonazepam Clonazepam Yes Sylvain 1 tablet Common Dietrich at bedtime [facility] NovoLIN NovoLIN Yes Sylvain Inject 65 Co mmon 70/30 70/30 Dietrich units [facility] FlexPen FlexPen [facility] Tramadol Tramadol Yes Sylvain 1 tablet C ommon HCl HCl Dietrich as needed [facility] Hydrocodone Hydrocodone Yes Sylvain 1 tablet Common -Acetaminop -Acetaminop Dietrich as needed [facility] hen [facility] Eliquis Eliquis Yes Sylvain TAKE 1 Commo n Dietrich TABLET BY [facility] TWICE [facility] Benztropine Benztropine Yes Sylvain 1 tablet Common Mesylate Mesylate Dietrich at bedtime [facility] Amphetamine Amphetamine Yes Sylvain 1 tablet Common -Dextroamph -Dextroamph Dietrich Spirit etamine etamine [facility] Risperidone Risperidone Yes Sylvain 1 tablet Common Dietrich [facility] Metoprolol Metoprolol Yes Sylvain 1 tablet Common Tartrate Tartrate Dietrich with food S pirit [facility] Losartan Losartan Yes Sylvain 1 tablet C ommon Potassium Potassium Dietrich Spir [facility] Divalproex Divalproex Yes Sylvain 1 tablet Common Sodium ER Sodium ER Dietrich Spir [facility] BusPIRone BusPIRone Yes Sylvain 1 tablet Common HCl HCl Dietrich [facility] Pen Friona Pen Friona Yes Sylvain N/s Common Dietrich [facility] Atorvastati Atorvastati Yes Sylvain 1 tablet Common n Calcium n Calcium Dietrich Spir [facility] Advair Advair Yes Sylvain 1 puff Common Diskus Diskus Dietrich [facility] True Metrix True Metrix Yes Sylvain USE TO Common Blood Blood Dietrich TEST BLOOD Spirit Glucose Glucose SUGAR 1-2 - CH I Test Test TIMES St EVERY DAY [facility] NovoLIN NovoLIN Yes Sylvain INJECT Commo n 70/30 70/30 Dietrich SUBQUTANEO Spirit FlexPen FlexPen USLY 65 - [facility] UNITS [facility] TWICE [facility] UltiCare UltiCare Yes Sylvain USE ONE Co mmon Micro Pen Micro Pen Dietrich NEEDLE Sp kwame Friona Friona THREE - CHI TIMES [facility] DAILY WITH [facility] NOVOLIN FLEXPEN Immunizations Ordered Filled Immunization Date Status Comments [facility] e Immunization Name Name SARS-COV-2 COVID-19 2021-04-20 Completed Unive rsity of MODERNA VACCINE 00:00:00 [facility] SARS-COV-2 COVID-19 2021-04-20 Completed Unive rsity of MODERNA VACCINE 00:00:00 [facility] SARS-COV-2 COVID-19 2021-04-20 Completed Unive rsity of MODERNA VACCINE 00:00:00 [facility] SARS-COV-2 COVID-19 2021-04-20 Completed Unive rsity of MODERNA VACCINE 00:00:00 [place] [facility] ical [facility] SARS-COV-2 COVID-19 2021-04-20 Completed Unive rsity of MODERNA VACCINE 00:00:00 [place] Med ical Branch SARS-COV-2 COVID-19 2021-04-20 Completed Unive rsity of MODERNA VACCINE 00:00:00 [place] Med ical Branch SARS-COV-2 COVID-19 2021-04-20 Completed Unive rsity of MODERNA VACCINE 00:00:00 [place] Med ical Branch SARS-COV-2 COVID-19 2021-04-20 Completed Unive rsity of MODERNA VACCINE 00:00:00 [place] Med ical Branch SARS-COV-2 COVID-19 2021-04-20 Completed Unive rsity of MODERNA VACCINE 00:00:00 [place] [facility] ical Branch SARS-COV-2 COVID-19 2021-04-20 Completed Unive rsity of MODERNA VACCINE 00:00:00 [place] [facility] ical [facility] SARS-COV-2 COVID-19 2021-04-20 Completed Unive rsity of MODERNA VACCINE 00:00:00 [place] [facility] ical Branch SARS-COV-2 COVID-19 2020-09-18 Completed Unive rsity of MODERNA VACCINE 00:00:00 [place] [facility] ical Branch SARS-COV-2 COVID-19 2020-09-18 Completed Unive rsity of MODERNA VACCINE 00:00:00 [place] [facility] ical Branch SARS-COV-2 COVID-19 2020-09-18 Completed Unive rsity of MODERNA VACCINE 00:00:00 [place] [facility] ical Branch SARS-COV-2 COVID-19 2020-09-18 Completed Unive rsity of MODERNA VACCINE 00:00:00 [place] [facility] ical Branch SARS-COV-2 COVID-19 2020-09-18 Completed Unive rsity of MODERNA VACCINE 00:00:00 [place] [facility] ical Branch SARS-COV-2 COVID-19 2020-09-18 Completed Unive rsity of MODERNA VACCINE 00:00:00 [place] Med ical Branch SARS-COV-2 COVID-19 2020-09-18 Completed Unive rsity of MODERNA VACCINE 00:00:00 [place] Med ical Branch SARS-COV-2 COVID-19 2020-09-18 Completed Unive rsity of MODERNA VACCINE 00:00:00 [place] [facility] ical [facility] SARS-COV-2 COVID-19 2020-09-18 Completed Unive rsity of MODERNA VACCINE 00:00:00 [place] [facility] ical [facility] SARS-COV-2 COVID-19 2020-09-18 Completed Unive rsity of MODERNA VACCINE 00:00:00 [place] [facility] ical Branch SARS-COV-2 COVID-19 2020-09-18 Completed Unive rsity of MODERNA VACCINE 00:00:00 [place] [facility] ical Branch SARS-COV-2 COVID-19 2020-08-21 Completed Unive rsity of MODERNA VACCINE 00:00:00 [place] [facility] ical Branch SARS-COV-2 COVID-19 2020-08-21 Completed Unive rsity of MODERNA VACCINE 00:00:00 [place] Med ical Branch SARS-COV-2 COVID-19 2020-08-21 Completed Unive rsity of MODERNA VACCINE 00:00:00 [place] Med ical Branch SARS-COV-2 COVID-19 2020-08-21 Completed Unive rsity of MODERNA VACCINE 00:00:00 [place] Med ical Branch SARS-COV-2 COVID-19 2020-08-21 Completed Unive rsity of MODERNA VACCINE 00:00:00 [place] Med ical Branch SARS-COV-2 COVID-19 2020-08-21 Completed Unive rsity of MODERNA VACCINE 00:00:00 [place] Med ical Branch SARS-COV-2 COVID-19 2020-08-21 Completed Unive rsity of MODERNA VACCINE 00:00:00 [place] Med ical Branch SARS-COV-2 COVID-19 2020-08-21 Completed Unive rsity of MODERNA VACCINE 00:00:00 [place] Med ical Branch SARS-COV-2 COVID-19 2020-08-21 Completed Unive rsity of MODERNA VACCINE 00:00:00 [place] Med ical Branch SARS-COV-2 COVID-19 2020-08-21 Completed Unive rsity of MODERNA VACCINE 00:00:00 [place] Med ical Branch SARS-COV-2 COVID-19 2020-08-21 Completed Unive [facility] of MODERNA VACCINE 00:00:00 [facility] ical Branch Pneumococcal 13 2019-07-12 Completed Universit y of Conjugate, PCV13 00:00:00 [place] Me dical (Prevnar 13) Branch Pneumococcal 13 2019-07-12 Completed Universit y of Conjugate, PCV13 00:00:00 [place] Me dical (Prevnar 13) Branch Pneumococcal 13 2019-07-12 Completed Universit y of Conjugate, PCV13 00:00:00 [place] Me dical (Prevnar 13) Branch Pneumococcal 13 2019-07-12 Completed Universit y of Conjugate, PCV13 00:00:00 [place] Me dical (Prevnar 13) Branch Pneumococcal 13 2019-07-12 Completed Universit y of Conjugate, PCV13 00:00:00 [place] Me dical (Prevnar 13) Branch Pneumococcal 13 2019-07-12 Completed Universit y of Conjugate, PCV13 00:00:00 [place] Me dical (Prevnar 13) Branch Pneumococcal 13 2019-07-12 Completed Universit y of Conjugate, PCV13 00:00:00 [place] Me dical (Prevnar 13) Branch Pneumococcal 13 2019-07-12 Completed Universit y of Conjugate, PCV13 00:00:00 [place] Me dical (Prevnar 13) Branch Pneumococcal 13 2019-07-12 Completed Universit y of Conjugate, PCV13 00:00:00 [place] Me dical (Prevnar 13) Branch Pneumococcal 13 2019-07-12 Completed Universit y of Conjugate, PCV13 00:00:00 [place] Me dical (Prevnar 13) Branch Pneumococcal 13 2019-07-12 Completed Universit y of Conjugate, PCV13 00:00:00 [place] Me dical (Prevnar 13) Branch Pneumococcal 13 2019-05-25 Completed Universit y of Conjugate, PCV13 00:00:00 [place] Me dical (Prevnar 13) Branch Pneumococcal 13 2019-05-25 Completed Universit y of Conjugate, PCV13 00:00:00 [place] Me dical (Prevnar 13) Branch Pneumococcal 13 2019-05-25 Completed Universit y of Conjugate, PCV13 00:00:00 [place] Me dical (Prevnar 13) Branch Pneumococcal 13 2019-05-25 Completed Universit y of Conjugate, PCV13 00:00:00 [place] Me dical (Prevnar 13) Branch Pneumococcal 13 2019-05-25 Completed Universit y of Conjugate, PCV13 00:00:00 [facility] dical (Prevnar 13) Branch Pneumococcal 13 2019-05-25 Completed Universit y of Conjugate, PCV13 00:00:00 [place] Me dical (Prevnar 13) Branch Pneumococcal 13 2019-05-25 Completed Universit y of Conjugate, PCV13 00:00:00 [facility] dical (Prevnar 13) Branch Pneumococcal 13 2019-05-25 Completed Universit y of Conjugate, PCV13 00:00:00 [place] Sd dical (Prevnar 13) Branch Pneumococcal 13 2019-05-25 Completed Universit y of Conjugate, PCV13 00:00:00 [facility] dical (Prevnar 13) Branch Pneumococcal 13 2019-05-25 Completed Universit y of Conjugate, PCV13 00:00:00 [facility] dical (Prevnar 13) Branch Pneumococcal 13 2019-05-25 Completed Universit y of Conjugate, PCV13 00:00:00 [facility] dical (Prevnar 13) Branch Vital Signs Vital Name Observation Time Observation Value Comments Source Heart rate 2021-09-19 12:34:00 77 /min [facility] Respiratory rate 2021-09-19 12:34:00 18 /min [facility] Oxygen saturation in 2021-09-19 12:34:00 97 /min [facility] Arterial blood by [facility] Pulse oximetry Branch Systolic blood 2021-09-19 12:29:00 143 mm[Hg] Univer sity of [facility] Diastolic blood 2021-09-19 12:29:00 85 mm[Hg] Unive rsity of [facility] Body temperature 2021-09-19 12:29:00 36.28 Cece [facility] Body weight 2021-09-19 08:35:00 107.412 kg [facility] BMI 2021-09-19 08:35:00 33.03 kg/m2 [facility] Body height 2021-09-18 20:53:00 180.3 cm [facility] Systolic blood 2021-09-13 20:07:00 173 mm[Hg] Univer sity of pressure [facility] Diastolic blood 2021-09-13 20:07:00 81 mm[Hg] Unive rsity of pressure [facility] Heart rate 2021-09-13 20:06:00 87 /min [facility] [place] [facility] Body height 2021-09-13 20:06:00 182.9 cm [facility] [place] [facility] Body weight 2021-09-13 20:06:00 101.152 kg [facility] [place] [facility] BMI 2021-09-13 20:06:00 30.24 kg/m2 Universi ty of [facility] Oxygen saturation in 2021-09-13 20:06:00 98 /min University of Arterial blood by [facility] Pulse oximetry Branch Systolic blood 2021-09-13 20:07:00 173 mm[Hg] Univer sit of pressure [facility] Diastolic blood 2021-09-13 20:07:00 81 mm[Hg] [facility] Heart rate 2021-09-13 20:06:00 87 /min [facility] [place] [facility] Body height 2021-09-13 20:06:00 182.9 cm Universi ty of [facility] Body weight 2021-09-13 20:06:00 101.152 kg [facility] [place] [facility] BMI 2021-09-13 20:06:00 30.24 kg/m2 [facility] [place] [facility] Oxygen saturation in 2021-09-13 20:06:00 98 /min University of Arterial blood by [facility] Pulse oximetry Branch Body temperature 2021-07-31 19:57:00 36.72 Cece [facility] Respiratory rate 2021-07-31 19:57:00 20 /min [facility] Procedures Procedure Date / Time Performing Clinician Source Performed HOME HEALTH - OTHER 2021-09-20 05:01:00 Doctor Unassigned, [facility] [place] [facility] POCT GLUCOSE (AUTOMATED) 2021-09-19 16:19:00 Jennifer Walden [facility] POCT GLUCOSE (AUTOMATED) 2021-09-19 12:29:00 Jennifer Walden [facility] BASIC METABOLIC PANEL 2021-09-19 08:47:00 Yazmin Coello [facility] (NA, K, CL, CO2, GLUCOSE, Medica l Branch BUN, CREATININE, CA) CBC WITH DIFF 2021-09-19 08:47:00 Yazmin Coello [facility] N-TERMINAL PRO-BNP 2021-09-19 08:47:00 Yazmin Coello [facility] POCT GLUCOSE (AUTOMATED) 2021-09-19 01:40:00 Jennifer Walden [facility] POCT GLUCOSE (AUTOMATED) 2021-09-18 21:56:00 Jennifer Walden [facility] TRANSTHORACIC ECHO (TTE) 2021-09-18 20:53:[address] [facility] POCT GLUCOSE (AUTOMATED) 2021-09-18 16:51:00 Jennifer Walden [facility] POCT GLUCOSE (AUTOMATED) 2021-09-18 12:33:00 Jennifer Walden [facility] GLYCOSYLATED HEMOGLOBIN 2021-09-18 08:51:[address] [facility] (A1C) [facility] XR CHEST 1 VW 2021-09-18 01:40:00 Willy [facility] CERVICAL SPINE WO 2021-09-18 01:30:00 Willy Zurita [facility] CT HEAD WO CONTRAST 2021-09-18 01:30:00 Willy Zurita [facility] CT LUMBAR SPINE WO 2021-09-18 01:30:00 Willy Zurita [facility] CT THORACIC SPINE WO 2021-09-18 01:30:00 Willy Zurita [facility] CONTRAST [facility] LIPASE 2021-09-18 01:02:00 Willy [facility]ita [facility] TROPONIN I 2021-09-18 01:02:00 Willy [facility]ita [facility] COMP. METABOLIC PANEL 2021-09-18 01:02:00 Willy Zurita [facility] ([id number]) [facility] ETHANOL 2021-09-18 01:02:00 Willy [facility]ita [facility] CBC WITH DIFF 2021-09-18 01:02:00 Willy Zurita [facility] PROTHROMBIN TIME / INR 2021-09-18 01:02:00 Willy Zurita [facility] ACTIVATED PARTIAL 2021-09-18 01:02:00 Willy Zurita [facility] THRMPLAS JESSICA [facility] N-TERMINAL PRO-BNP 2021-09-18 01:02:00 Willy Zurita [facility] y of [facility] URINALYSIS 2021-09-18 00:59:00 Willy Zurita Ermine o f [facility] URINE DRUG (IMMUNOASSAY) 2021-09-18 00:59:00 Willy Zurita [facility] Medical [facility] nch SCREEN W/O REFLEX HB ECG ROUTINE & RHYTHM 2021-09-18 00:54:01 Willy Zurita [facility] CONSENT/REFUSAL FOR 2021-09-18 00:29:44 Doctor Unassmali, [facility] DIAGNOSIS AND TREATMENT [place] [facility] [place] NOTICE OF PRIVACY 2021-09-18 00:28:56 Doctor Mazin, [facility] PRACTICES [facility] POCT HEMOGLOBIN A1C TEST 2021-09-13 20:09:00 [place] [facility] POCT HEMOGLOBIN A1C TEST 2021-09-13 20:09:00 [place] [facility] EXTERNAL PROVIDER RECORDS 2021-09-07 05:01:00 Doctor Unassmali, [facility] Name [facility] DME/SUPPLY JUSTIFICATION 2021-07-09 06:01:00 Doctor Unassmali, [facility] [place] [facility] DME/SUPPLY JUSTIFICATION 2021-07-03 06:01:00 Doctor Mazin, [facility] XR KUB 2021-06-24 05:17:31 Grace Odom [facility] TROPONIN I 2021-06-24 05:06:00 Grace Odom [facility] XR CHEST 1 VW 2021-06-24 03:37:27 Grace Odom [facility] CBC WITH DIFF 2021-06-24 03:11:00 Grace Odom [facility] COMP. METABOLIC PANEL 2021-06-24 03:11:00 Grace Odom Un [facility] ([id number]) [facility] TROPONIN I 2021-06-24 03:11:00 Grace Odom [facility] N-TERMINAL PRO-BNP 2021-06-24 03:11:00 Grace Odom [facility] COVID-19 (ID NOW RAPID 2021-06-24 03:11:00 Grace Odom U [facility] TESTING) Medical Branch LAB ONLY COVID 2021-06-24 03:11:00 Grace Odom [facility] INTERPRETATION [facility] HB ECG ROUTINE & RHYTHM 2021-06-24 02:59:26 Grace Odom [facility] [place] CONSENT/REFUSAL FOR 2021-06-24 02:47:35 Doctor Unassigned, [facility] DIAGNOSIS AND TREATMENT [place] [facility] EMERGENCY SERVICES 2021-06-23 06:01:00 Doctor Unassmali, [facility] AGREEMENTS AND [place] [facility] AUTHORIZATIONS Plan of Care Planned Activity Planned Date Details Comments Source Future Scheduled Test 2021-03-09 00:00:00 IMM Influenza [facility] Seasonal Mar to August (>/= 19 yrs) [code = IMM Influenza Seasonal Mar to August (>/= 19 yrs)] Future Scheduled Test 2011 00:00:00 Screening for [facility] malignant neoplasm of colon (procedure) [code = 937373090] Future Scheduled Test 1973 00:00:00 COVID-19 Vaccine (1) [facility] [code = COVID-19 Vaccine (1)] Encounters Start End Encounter Admission Attending Care Care Encounter Source Date/Time Date/Time Type Type Clinicians Facility Department ID 2021-07-05 [place] 3 [place] [id number] ENCPL 10:37:17 Violetta 0918 2021-07-05 Out[place] 3 [place] [id number] ENCPL 10:35:19 Violetta 0914 2021-07-05 Outpatient 3 [id number] ENC[facility] REF [id number] ENCPL 10:33:41 [id number] 2021-07-04 Outpatient Karlo CED [facility] [id number] Common 12:23:16 [facility] [id number] [facility] 2021-07-04 Outpatient Dietrich, [facility] Common 11:58:41 Sylvain [id number] [facility] 2021-07-04 [facility] Common 11:58:34 Sylvain [id number] [facility] 2021-07-04 [facility] Common 11:54:24 Sylvain [id number] [facility] 2021-07-04 [facility] Common 11:24:48 Sylvain [id number] [facility] 2021-07-04 [facility] Common 11:24:36 Sylvain [id number] [facility] 2021-03-20 Outpatient [id number] Memoria 10:39:01 [id number]-7582- B l -E90V-25Z D-[id number] [id number]-77CAFE Raul PMMS2JGZ7 AF2 A1DAF2 2021-03-13 Outpatient [id number] Memoria 08:49:42 [id number] 166-4D51- 8 l -8885-75E 5-47B3M0Z8B 885-75E2A2 Raul [id number] E94 [id number] 2021-02-27 Outpatient [id number] Memoria 16:26:17 [id number] 34-41DF-A62 R20-92MR- A l -B57M-3TT B-1MM69HHRV 62B-5CF45F Raul [id number] E49 CCBE49 2021-02-13 Outpatient [id number] Memoria 13:34:27 FDA5-4DF8 A5-8GY9-OA3 DA5-4DF8- A l -FX2E-12E F-51I37Y7I1 P1M-56G93A Raul 65I3Q2U8T C9E 9A6C9E 2021-02-05 Outpatient [id number] Memoria 13:02:31 42X5-8AT3 E0-3MD0-0WB 6Z6-1FY1- 8 l -5RW9-1B6 7-3G1B2RQ9R BD7-8F3D5B Raul X2BN3F9K6 9A8 B3F9A8 2021-01-31 Outpatient [id number] Memoria 14:21:44 71EF-4A97 EF-7O61-Y1G 1EF-4A97- A l -I6C0-H62 [id number]-[id number] 2Y8-R0179Q Ralu [id number] ABB 67DABB 2021-01-29 Outpatient [id number] Memoria 07:59:59 EAF3-4402 F3-4402-989 AF3-4402- 9 l -9894-E93 4-K359R434Q 894-E932E0 Raul [id number] 73E [id number] 2021-01-26 Outpatient [id number] Memoria 11:30:20 50Z8-4Z9V D3-4E9F-I45 5G2-2K2X- A l -Q688-7U7 0-7C2A23A69 760-9F0F01 Raul [id number] A92 B18A92 2021-01-18 Outpatient [id number] Memoria 19:23:47 [id number] 758-6742- 9 l -904F-E96 F-O02IVB945 04F-E96FEA Raul [id number] FF0 071FF0 2021-01-17 Outpatient [id number] Memoria 15:43:09 [id number] 3M4-1298- 8 l -8608-A37 8-K55Q03A4W 608-A37F06 Raul [id number] 43A F6C43A 2021-01-11 Outpatient [id number] Memoria 16:20:54 [id number] 42-4648-8F1 F93-7893- 8 l -2I3C-RA4 A-VX5M084VD A1Y-FE5A37 Raul A088VHZ1Y A7A 0AAA7A 2020-07-15 Inpatient EM Jegatheswar [facility]L MAS [id number] 14:49:00 an, [address] [facility] 2020-07-13 Inpatient HCACL MARIA D [id number] [facility] 14:41:00 [id number] [facility] 2021-12-24 2021-12-24 [facility] [id number] Univers 15:30:00 15:30:00 SAPPHIRE [id number] [facility] 2021-11-26 2021-11-26 Outpatient R [facility] [id number] Univers 13:30:00 13:30:00 [id number] [facility] 2021-10-30 2021-10-30 [facility] [id number] Univers 15:00:00 15:00:00 MARYLU [facility] 2021-10-02 2021-10-02 Telephone [facility] 1.2.840.114 [id number] Univers 00:00:00 00:00:[address] [facility] 4.2.7.2.686 Sonja KERR [id number] [address] 2021-09-21 2021-09-21 Outpatient R JOHN REYES [facility] [id number] Univers 14:30:00 14:30:00 JOHN REYES [id number] [facility] 2021-09-21 2021-09-21 Outpatient R JOHN REYES [facility] [id number] Univers 14:30:00 14:30:00 AMY KIRSTENJoão ity of [facility] 2021-09-20 2021-09-20 Transition REY Dolan 1.2.840.114 [id number] Univers 00:00:00 00:00:00 of Care Mehul Alicia CASTILLO 350.1.13.10 [place]y [place] [id number] [facility] 403 Branch 2021-09-20 2021-09-20 Orders Doctor NAINA 1..840.114 [id number] Univers 00:00:00 00:00:00 Only Unassigned, MARIELOS 350.1.13.10 ity of [place] [facility] 4.2.7.2.686 Gwyn as [phone] [facility] 009 Branch 2021-09-17 2021-09-19 Outpatient X IRAM [facility] JOSE [id number] Univers 19:42:00 12:00:00 JENNIFER christopher [facility] 2021-09-17 2021-09-19 Emergency Willy Zurita [facility] 1.2.840. 114 [id number] Univers 19:42:00 12:00:00 Jennifer Walden 350.1.13.10 ity of [place].2.[place] [id number] [facility] 081 Branch 2021-09-17 2021-09-17 Refill Aj [facility] 1.2.840.114 [id number] Univers 00:00:00 00:00:00 [place] [facility] 350.1.13.10 it y of [place] 4.2.7.2.686 [place] as RIANA?BLEA [id number] S[address] MEDICAL OFFICE BUILDING 2021-09-17 2021-09-17 Telephone Aj [facility] 1.2.840.114 [id number] Univers 00:00:00 00:00:00 [place] HEALTH 350.1.13.10 it y of [place] 4.2.7.2.686 [place]wyn as RIANA?BLEA [id number] Me dical [facility] [address] MEDICAL OFFICE BUILDING 2021-09-17 2021-09-17 Orders Doctor NAINA 1.2.840.114 [id number] Univers 00:00:00 00:00:00 Only Unassigned, MARIELOS 350.1.13.10 ity of [place] [facility] 4.2.7.2.686 [place] as [id number] [address] 2021-09-15 2021-09-15 Refill Aj, 1.2.840.4 [id number] Univers 00:00:00 00:00:00 [place] 57468.1.1 ity of 3.104.2.7 [place] .3.194067 Medica l [facility] [place] 2021-09-14 2021-09-14 Outpatient R COLTON- [facility] [id number] Univers 14:00:00 14:00:00 NATHANAEL, ity of AL[place]IA [facility] 2021-09-13 2021-09-13 Office Aj, 1.2.840.1 [id number] Univers 15:00:00 15:52:12 Visit [place] 39788.1.1 ity of 3.104.2.7 [place] .3.270135 Medica l 8 [place] 2021-09-13 2021-09-13 Outpatient R AJ, [facility] [id number] Univers 15:00:00 15:52:12 SAPPHIRE ity of [facility] 2021-09-13 2021-09-13 Travel 1.2.840.1 [id number] [id number] Univers 00:00:00 00:00:00 23387.1.1 350.1.13.10 ity of 3.104.2.7 [place].3.698 [place] .3.113527 084.8 Medica l .[address] [place] 2021-09-12 2021-09-12 Patient Aj, 1.2.840.9 [id number] Univers 00:00:00 00:00:00 Secure Msg [place] 47722.1.1 i ty of 3.104.2.7 [place] .3.322687 Medica l .8 Branch 2021-09-11 2021-09-11 Telephone Aj, 1.2.840.3 [id number] Univers 00:00:00 00:00:00 [place] 00850.1.1 ity of 3.104.2.7 [place] .3.959999 Medica l .8 Branch 2021-09-07 2021-09-07 Orders Doctor 1.2.840.2 [id number] Univers 00:00:00 00:00:00 Only Unassigned, 29465.1.1 ity of [place] 3.104.2.7 [place] .3.848442 Medica l .8 Branch 2021-08-27 2021-08-27 Telephone Aj, 1.2.840.7 [id number] Univers 00:00:00 00:00:00 [place] 14747.1.1 ity of 3.104.2.7 [place] .3.148522 [facility] 2021-08-11 2021-08-11 Refill Demond, 1.2.840.6 [id number] Univers 00:00:00 00:00:00 Marylu Alicia 41067.1.1 ity of 3.104.2.7 [place] .3.000117 [facility] [place] 2021-07-31 2021-07-31 Office Demond 1.2.840.3 [id number] Univers 13:40:00 15:22:19 Visit Marylu Alicia 95847.1.1 ity of 3.104.2.7 [place] .3.835068 [facility] [place] 2021-07-31 2021-07-31 Outpatient R DEMOND, [facility] [id number] Univers 13:40:00 15:22:19 MARYLU ity of [facility] 2021-07-31 2021-07-31 Telephone Aj, 1.2.840.7 [id number] Univers 00:00:00 00:00:00 Sapphire 11998.1.1 ity of 3.104.2.7 [place] .3.021712 Med[facility] l [facility] [place] 2021-07-31 2021-07-31 Telephone Colton- 1.2.840.6 [id number] Univers 00:00:00 00:00:00 Nathanael, 87553.1.1 it y of Alesia Petty 3.104.2.7 [place] .3.166372 [facility] [place] 2021-07-30 2021-07-30 Patient Doctor 1.2.840.9 [id number] Univers 00:00:00 00:00:00 Secure Msg Unassigned, 02388.1.1 ity of [place] 3.104.2.7 [place] .3.548306 [facility] [place] 2021-07-30 2021-07-30 Patient Doctor 1.2.840.3 [id number] Univers 00:00:00 00:00:00 Secure Msg Unassigned, 31948.1.1 ity of [place] 3.104.2.7 [place] .3.450487 [facility] [place] 2021-07-20 2021-07-20 Telephone Demond, 1.2.840.9 [id number] Univers 00:00:00 00:00:00 Marylu Alicia 34854.1.1 ity of 3.104.2.7 [place] .3.114293 [facility] .[facility] [place] 2021-07-04 2021-07-04 Telephone Aj, 1.2.840.6 [id number] Univers 00:00:00 00:00:00 [place] 36132.1.1 ity of 3.104.2.7 [place] .3.116962 [facility] [place] 2021-07-03 2021-07-03 Orders Doctor 1.2.840.6 [id number] Univers 00:00:00 00:00:00 Only Unassigned, 15636.1.1 ity of [place] 3.104.2.7 [place] .3.017224 Med[facility] l .8 Branch 2021-06-28 2021-06-28 Patient Doctor 1.2.840.0 [id number] Univers 00:00:00 00:00:00 Secure Unassigned, 69410.1.1 ity of [place] 3.104.2.7 [place] .3.792262 Med[facility] l .8 Branch 2021-06-27 2021-06-27 Telephone Aj, 1.2.840.8 [id number] Univers 00:00:00 00:00:00 [place] 30963.1.1 ity of 3.104.2.7 [place] .3.116064 Medica l .8 Branch 2021-06-26 2021-06-26 Telephone Demond, 1.2.840.3 [id number] Univers 00:00:00 00:00:00 Marylu Alicia 03478.1.1 ity of 3.104.2.7 [place] .3.655055 Medica l .8 Branch 2021-06-23 2021-06-24 Emergency Ibikunle, 1.2.840.0 [id number] Univers 20:56:00 00:43:00 Grace Areli 57601.1.1 it y of 3.104.2.7 [place] .3.516819 Medica l .8 Branch 2021-06-23 2021-06-23 Travel 1.2.840.1 1.2.775.499 [id number] Univers 00:00:00 00:00:00 53974.1.1 350.1.13.10 ity of 3.104.2.7 4[place]7.3.698 [place] .3.420327 084.8 Medica l .8 Branch 2021-06-22 2021-06-22 Telephone Demond, 1.2.840.8 [id number] Univers 00:00:00 00:00:00 Marylu Alicia 56691.1.1 ity of 3.104.2.7 [place] .3.554378 Medica l .8 Branch 2021-01-17 2021-01-17 [facility].2[facility]840.114 [id number] 00:00:00 00:00:00 Marylu Martin 350.1.13.10 [place] 4.2.7.2.686 Professio [id number] [address] 2021-01-10 2021-01-10 [facility] 1.2.840.114 [id number] 00:00:00 00:00:00 Marylu Martin 350.1.13.10 [place] 4.2.7.2.686 Professio [phone] [address] 2020-12-28 2020-12-28 [facility] 1.2.840.114 [id number] 13:00:56 15:02:32 Visit Marylu Martin 350.1.13.10 [place] 4.2.7.2.686 Professio [id number] [address] 2020-04-04 2020-04-04 Outpatient STLMLC STLMLC [id number] Common 00:00:00 00:00:00 [facility] 2020-04-03 2020-04-03 Outpatient STLMLC STLMLC [id number] Common 00:00:00 00:00:00 [facility] 2020-04-03 2020-04-03 Outpatient STLMLC STLMLC [id number] Common 00:00:00 00:00:00 [facility] 2020-03-21 2020-03-21 Outpatient STLMLC STLMLC [id number] Common 00:00:00 00:00:00 [facility] 2020-03-08 2020-03-08 Outpatient STLMLC STLMLC [id number] Common 00:00:00 00:00:00 [facility] 2020-03-03 2020-03-03 Outpatient STLMLC STLMLC [id number] Common 00:00:00 00:00:00 [facility] 2020-03-01 2020-03-01 Outpatient STLMLC STLMLC [id number] Common 00:00:00 00:00:00 [facility] 2020-02-22 2020-02-22 Outpatient STLMLC STLMLC [id number] Common 00:00:00 00:00:00 [facility] 2020-01-28 2020-01-28 [facility] [id number] Common 08:27:00 08:27:[address] [facility] 2020-01-26 2020-01-26 [facility] [id number] Common 11:04:00 11:04:[address] [facility] 2020-01-05 2020-01-05 [facility] 31 [id number] Common 16:30:00 16:30:[address] [facility] 2020-01-03 2020-01-03 [facility] [id number] Common 10:59:00 10:59:[address] [facility] 2019-11-24 2019-11-24 [facility] [id number] Common 11:16:00 11:16:[address] [facility] 2019-11-24 2019-11-24 [facility] [id number] Common 11:15:00 11:15:[address] [facility] 2019-11-11 2019-11-11 [facility] [id number] Common 09:41:00 09:41:[address] [facility] 2019-11-10 2019-11-10 [facility] 30 [id number] Common 10:30:00 10:30:[address] [facility] 2019-03-27 2019-03-27 Emergency [facility] [id number] [place] 11:00:00 11:00:00 Health 2019-03-27 2019-03-27 Emergency [facility] [id number] [place] 10:55:25 10:55:25 Health 2019-03-27 2019-03-27 Emergency [facility] [id number] [place] 08:02:06 08:02:06 Health 2019-03-27 2019-03-27 Emergency [facility] [id number] [place] 00:00:00 00:00:00 Health Results Test Description Test Time Test Comments Results Result Comments Source POCT GLUCOSE (AUTOMATED) 2021-09-19 16:21:43 Test Item Value Reference Range Interpretation Comme nts POCT GLU (test code = 2376734692) 208 mg/dL 70-110 H Lab Interpretation (test code = 13841-7) [facility] 12:42:31 Test Item Value Reference Range Interpretation Comments POCT GLU (test code = 7283373694) 181 mg/dL 70-110 H Lab Interpretation (test code = Abnormal 24611-9) [facility] [id number] 09:50:38 Test Item Value Reference Range Interpretation Comments NT-proBNP (test code 668 pg/mL See_Comment H [Autom ated = 3288630594) message] The system which generated this result transmitted reference range : <=125. The reference range was not used to interpret this result as normal/abnormal . BRENDON (test code = BRENDON) Biotin has been reported to cause a negative bias, interpret results relative to patient's use of biotin. Lab Interpretation Abnormal (test code = 16846-5) [facility] METABOLIC PANEL (NA, K, CL, CO2, GLUCOSE, BUN, CREATININE, CA)2021-09-19 09:43:34 Test Item Value Reference Range Interpretation Comments NA (test code = 136 mmol/L 135-145 4017675370) K (test code = 4.9 mmol/L 3.5-5.0 5405122368) CL (test code = 102 mmol/L 98-108 4118671383) CO2 TOTAL (test code = 28 mmol/L 23-31 2337828284) AGAP (test code = 2-16 9794898378) BUN (test code = 49 mg/dL 7-23 H 5593199919) GLUCOSE (test code = 113 mg/dL 70-110 H 6303439237) CREATININE (test code = 2.25 mg/dL 0.60-1.25 H 8988815638) CALCIUM (test code = 8.5 mg/dL 8.6-10.6 L 3717642164) eGFR (test code = mL/min/1.73m2 3501866628) BRENDON (test code = BRENDON) Association of Glomerular Filtration Rate (GFR) and Staging of Kidney Disease* + --+ --+ ------+| GFR (mL/min/1.73 m2) ?| With Kidney Damage ?| ?Without Kidney Damage+ --------+ --------+ +| ?>90 ?| ?Stage one ?| ? Normal ?+ ---+ ---+ -------+| ?60-89 ?| ?Stage two ?| ? Decreased GFR ? + --+ --+ ------+| ?30-59 ?| ?Stage three ?| ? Stage three ? + --+ --+ ------+| ?15-29 ?| ?Stage four ? | ? Stage four ?+ ---+ ---+ -------+| ?<15 (or dialysis) ? ?| ?Stage five ? | ? Stage five ?+ ---+ ---+ -------+ *Each stage assumes the associated GFR level has been in effect for at least three months. ?Stages 1 to 5, with or without kidney disease, indicate chronic kidney disease. Notes: Determination of stages one and two (with eGFR >59mL/min/1.73 m2) requires estimation of kidney damage for at least three months as defined by structural or functional abnormalities of the kidney, manifested by either:Pathological abnormalities or Markers of kidney damage (including abnormalities in the composition of the blood or urine or abnormalities in imaging tests). Lab Interpretation Abnormal (test code = 02681-9) [facility] WITH [id number] 09:12:12 Test Item Value Reference Range Interpretation Comments WBC (test code = See_Comment [Automated 9540-2) message] The sy stem which generated this result transmitted reference range : 4.20 - 10.70 10*3/?L. The reference range was not used to interpret this result as normal/abnormal . RBC (test code = See_Comment L [Automated 059-8) message] The sy stem which generated this result transmitted reference range : 4.26 - 5.52 10*6/?L. The reference range was not used to interpret this result as normal/abnormal . HGB (test code = 9.7 g/dL 12.2-16.4 L 718-7) HCT (test code = 28.8 % 38.4-49.3 L 4544-3) MCV (test code = 88.9 fL 81.7-95.6 787-2) MCH (test code = 29.9 pg 26.1-32.7 785-6) MCHC (test code = 33.7 g/dL 31.2-35.0 786-4) RDW-SD (test code = 43.4 fL 38.5-51.6 31201-0) RDW-CV (test code = 13.2 % 12.1-15.4 788-0) PLT (test code = See_Comment [Automated 777-3) message] The sy stem which generated this result transmitted reference range : 150 - 328 10*3/ ?L. The reference r yogesh was not used to interpret this result as normal/abnormal . MPV (test code = 10.7 fL 9.8-13.0 44019-1) NRBC/100 WBC (test See_Comment [Automat ed code = 8399504982) message] The system which generated this result transmitted reference range : 0.0 - 10.0 /100 WBCs. The refer ence range was not u sed to interpret th is result as normal/abnormal . NRBC x10^3 (test code <0.01 See_Comment [Auto mated = 6643118575) message] The s ystem which generated this result transmitted reference range : 10*3/?L. The reference range was not used to interpret this result as normal/abnormal . GRAN MAT (NEUT) % 55.9 % (test code = 770-8) IMM GRAN % (test code 1.90 % = 7246714553) LYMPH % (test code = 25.3 % 736-9) MONO % (test code = 14.4 % 5905-5) EOS % (test code = 2.1 % 713-8) BASO % (test code = 0.4 % 706-2) GRAN MAT x10^3(ANC) 2.94 10*3/uL 1.99-6.95 (test code = 7734472311) IMM GRAN x10^3 (test 0.10 10*3/uL 0.00-0.06 H code = 4479973974) LYMPH x10^3 (test code 1.33 10*3/uL 1.09-3.23 = 731-0) MONO x10^3 (test code 0.76 10*3/uL 0.36-1.02 = 742-7) EOS x10^3 (test code = 0.11 10*3/uL 0.06-0.53 711-2) BASO x10^3 (test code <0.03 0.01-0.09 = 704-7) Lab Interpretation Abnormal (test code = 33377-2) [facility] GLUCOSE (AUTOMATED)2021-09-19 01:43:09 Test Item Value Reference Range Interpretation Comments POCT GLU (test code = 7635882748) 131 mg/dL 70-110 H Lab Interpretation (test code = Abnormal 19939-7) [facility] GLUCOSE (AUTOMATED)2021-09-18 22:03:54 Test Item Value Reference Range Interpretation Comments POCT GLU (test code = 4098351942) 152 mg/dL 70-110 H Lab Interpretation (test code = Abnormal 28714-1) [facility] 21:41:28 Test Item Value Reference Range Interpretation Comments LVOT stroke volume (test 75.20 cm3 code = 3922142858) EF(Teich) (test code = 56.40 % 6079916121) LVIDD (test code = 5.00 cm 3371987416) LVIDS (test code = 3.50 cm 0764557789) IVS (test code = 1.22 cm 5656338376) LVPWD (test code = 1.15 cm 6561000592) LVOT diameter (test code 2.04 cm = 8326605814) FS (test code = 30 % 6023382317) MV Peak E Thu (test code 60.4 cm/s = 3926597119) MV Peak A Thu (test code 111.4 cm/s = 3676238419) E/A ratio (test code = ratio 0341403625) E wave decelartion time 0.16 s (test code = 8113398279) MV E/e' septal (test code 4.8 cm/s = 8808403887) LA volume (BP) (test code 65.7 mL = 0911601897) LVOT peak thu (test code 114.3 cm/s = 3287211672) LVOT mn grad (test code = mmHg 8375529110) LA size (test code = 5.2 cm 0613220323) LAV(MOD-sp2) (test code = 60.10 mL 2220877598) LAV(MOD-sp4) (test code = 70.00 mL 8827542905) Tapse (test code = 2.15 cm 5446358734) Aortic valve mean 81.5 cm/s velocity (test code = 1514344426) Ao peak thu (test code = 126.0 cm/s 5189918072) Ao VTI (test code = 24.6 cm 9251705091) AV LVOT peak gradient mmHg (test code = 9790146649) LVOT peak VTI (test code 23.1 cm = 3977062846) AV area by cont VTI (test 3.1 cm2 code = 5946268248) AV area peak thu (test 3.0 cm2 code = 9497841396) LV V1 mean (test code = 74.80 cm/s 4888138255) Ao max PG (test code = 6.30 mm[Hg] 6905259574) Ao root annulus (test 2.8 cm code = 3175546768) Ao root diam (test code = 2.80 cm 3777669314) AV peak gradient (test mmHg code = 5660360711) AV valve area (test code 3.10 cm2 = 5490559510) AV mean gradient (test mmHg code = 7900530613) Aortic root (test code = 2.8 cm 7898669409) PW (test code = 1.15 cm 0.6-1.5 1002772790) EF - 2D (test code = 56.40 % 44408822) Interventricular Septum 1.22 cm Diastolic Thickness by 2D (test code = 1012491) Radiology Study observation (narrative) (test code = 42503-8) BRENDON (test code = BRENDON) ?Left?Ventricle: Left ventricle size is normal. Mild basal septal thickening. Normal wall motion. Normal systolic function with a visually estimated EF of 60 - 65%. There is impaired relaxation. ?Tricuspid?Valve: Insufficient regurgant jet to estimate RVSP. ?RA pressure is 0-5 mmHg. ?Left?Atrium: Left atrium is moderately dilated. ?Pericardium: Trivial pericardial effusion present. VitalsHeight Weight BSA (Calculated - sq m) BP Pulse 5' 11" (1.803 m) 234 lb (106.1 kg) 2.3 sq meters 168/96 79 [facility] GLUCOSE (AUTOMATED)2021-09-18 16:57:05 Test Item Value Reference Range Interpretation Comments POCT GLU (test code = 7781431601) 244 mg/dL 70-110 H Lab Interpretation (test code = Abnormal 39900-2) [facility] GLUCOSE (AUTOMATED)2021-09-18 12:37:44 Test Item Value Reference Range Interpretation Comments POCT GLU (test code = 5288582858) 231 mg/dL 70-110 H Lab Interpretation (test code = Abnormal 20667-6) [facility]2021-09-18 10:56:47 Test Item Value Reference Range Interpretation Comments HGB A1C (test code = 9.7 % 4.0-5.7 H 4548-4) BRENDON (test code = BRENDON) Reference RangesNormal: <5.7%Prediabetes: 5.7 - 6.4%Diabetes: > 6.5% Lab Interpretation (test Abnormal code = 61234-9) [facility] [id number] 01:37:44 Test Item Value Reference Interpretation Comments Range TROPONIN I (test 0.018 ng/mL See_Comment [Automated code = 4186029873) message] The system which generated this result transmitted reference range : <=0.034. The reference range was not used to interpret this result as normal/abnormal . BRENDON (test code = Reference (Normal) BRENDON) Range (defined by the 99th percentile reference limit): <= 0.034 ng/mL Note: Cardiac troponin begins to rise 3-4 hours after the onset of ischemia. Repeat in 4-6 hours if the sample was drawn within 3-4 hours of the onset of the symptom and found normal. Diagnosis of myocardial injury is made with acute changes in cTn concentrations with at least one serial sample above the 99th percentile upper reference limit (URL), taken together with the patient's clinical presentation. Biotin has been reported to cause a negative bias, interpret results relative to patient's use of biotin. Lab Interpretation Normal (test code = 66607-9) [facility] [id number] 01:34:41 Test Item Value Reference Range Interpretation Comments NT-proBNP (test code 1450 pg/mL See_Comment H [Autom ated = 4820396684) message] The system which generated this result transmitted reference range : <=125. The reference range was not used to interpret this result as normal/abnormal . BRENDON (test code = BRENDON) Biotin has been reported to cause a negative bias, interpret results relative to patient's use of biotin. Lab Interpretation Abnormal (test code = 24745-8) [facility] [id number] 01:27:42 Test Item Value Reference Range Interpretation Comments APTT Patient (test See_Comment [Automat ed code = 3173-2) message] The system which generated this result transmitted reference range : 23 - 38 Seconds . The reference range was not used to interpr et this result as normal/abnormal . BRENDON (test code = BRENDON) The [facility] patient population mean normal value for aPTT is 30 seconds. 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 The re ference range was not u sed to interpret this result as normal/abnor mal. INR (test code = 6301-6) Nor mal INR <1.1; Warfarin Therap eutic range 2.0 to 3. 0 or 2.5 to 3.5, dep ending upon the indica tions. Lab Interpretation (test Normal code = 52187-3) [facility]. METABOLIC PANEL (74132)2021-09-18 01:23:58 Test Item Value Reference Range Interpretation Comments NA (test code = 135 mmol/L 135-145 4843039215) K (test code = 4.9 mmol/L 3.5-5.0 3502964195) CL (test code = 101 mmol/L 98-108 2631718823) CO2 TOTAL (test code = 25 mmol/L 23-31 9095377395) AGAP (test code = 2-16 5802143224) BUN (test code = 46 mg/dL 7-23 H 1346079760) GLUCOSE (test code = 223 mg/dL 70-110 H 3529788377) CREATININE (test code = 2.57 mg/dL 0.60-1.25 H 9822528905) TOTAL BILI (test code = 0.4 mg/dL 0.1-1.5 1364450880) CALCIUM (test code = 8.7 mg/dL 8.6-10.6 1225967354) T PROTEIN (test code = 6.3 g/dL 6.3-8.2 9931981175) ALBUMIN (test code = 3.6 g/dL 3.5-5.0 0060350133) ALK PHOS (test code = 108 U/L 34-122 3198636998) ALTv (test code = 16 U/L 5-50 1742-6) AST(SGOT) (test code = 21 U/L 13-40 5037533751) eGFR (test code = mL/min/1.73m2 9628318003) BRENDON (test code = BRENDON) Association of Glomerular Filtration Rate (GFR) and Staging of Kidney Disease* + --+ --+ ------+| GFR (mL/min/1.73 m2) ?| With Kidney Damage ?| ?Without Kidney Damage+ --------+ --------+ +| ?>90 ?| ?Stage one ?| ? Normal ?+ ---+ ---+ -------+| ?60-89 ?| ?Stage two ?| ? Decreased GFR ? + --+ --+ ------+| ?30-59 ?| ?Stage three ?| ? Stage three ? + --+ --+ ------+| ?15-29 ?| ?Stage four ? | ? Stage four ?+ ---+ ---+ -------+| ?<15 (or dialysis) ? ?| ?Stage five ? | ? Stage five ?+ ---+ ---+ -------+ *Each stage assumes the associated GFR level has been in effect for at least three months. ?Stages 1 to 5, with or without kidney disease, indicate chronic kidney disease. Notes: Determination of stages one and two (with eGFR >59mL/min/1.73 m2) requires estimation of kidney damage for at least three months as defined by structural or functional abnormalities of the kidney, manifested by either:Pathological abnormalities or Markers of kidney damage (including abnormalities in the composition of the blood or urine or abnormalities in imaging tests). Lab Interpretation Abnormal (test code = 01734-3) [facility] 01:23:38 Test Item Value Reference Range Interpretation Comments LIPASE (test code = 3915346981) 78 U/L 0-220 Lab Interpretation (test code = Normal 27801-1) [facility] WITH [id number] 01:11:55 Test Item Value Reference Range Interpretation Comments WBC (test code = See_Comment [Automated 1390-2) message] The sy stem which generated this result transmitted reference range : 4.20 - 10.70 10*3/?L. The reference range was not used to interpret this result as normal/abnormal . RBC (test code = See_Comment L [Automated 939-8) message] The sy stem which generated this result transmitted reference range : 4.26 - 5.52 10*6/?L. The reference range was not used to interpret this result as normal/abnormal . HGB (test code = 9.9 g/dL 12.2-16.4 L 718-7) HCT (test code = 29.7 % 38.4-49.3 L 4544-3) MCV (test code = 90.5 fL 81.7-95.6 787-2) MCH (test code = 30.2 pg 26.1-32.7 785-6) MCHC (test code = 33.3 g/dL 31.2-35.0 786-4) RDW-SD (test code = 43.8 fL 38.5-51.6 01392-6) RDW-CV (test code = 13.2 % 12.1-15.4 788-0) PLT (test code = See_Comment [Automated 777-3) message] The sy stem which generated this result transmitted reference range : 150 - 328 10*3/ ?L. The reference r yogesh was not used to interpret this result as normal/abnormal . MPV (test code = 10.4 fL 9.8-13.0 08220-8) NRBC/100 WBC (test See_Comment [Automat ed code = 6340911223) message] The system which generated this result transmitted reference range : 0.0 - 10.0 /100 WBCs. The refer ence range was not u sed to interpret th is result as normal/abnormal . NRBC x10^3 (test code <0.01 See_Comment [Auto mated = 0895874877) message] The s ystem which generated this result transmitted reference range : 10*3/?L. The reference range was not used to interpret this result as normal/abnormal . GRAN MAT (NEUT) % 56.8 % (test code = 770-8) IMM GRAN % (test code 1.90 % = 1526592177) LYMPH % (test code = 26.6 % 736-9) MONO % (test code = 12.8 % 5905-5) EOS % (test code = 1.7 % 713-8) BASO % (test code = 0.2 % 706-2) GRAN MAT x10^3(ANC) 3.28 10*3/uL 1.99-6.95 (test code = 0427474862) IMM GRAN x10^3 (test 0.11 10*3/uL 0.00-0.06 H code = 7091825413) LYMPH x10^3 (test code 1.54 10*3/uL 1.09-3.23 = 731-0) MONO x10^3 (test code 0.74 10*3/uL 0.36-1.02 = 742-7) EOS x10^3 (test code = 0.10 10*3/uL 0.06-0.53 711-2) BASO x10^3 (test code <0.03 0.01-0.09 = 704-7) Lab Interpretation Abnormal (test code = 50506-5) [facility] HEMOGLOBIN A1C [id number] 20:09:00 Test Item Value Reference Range Interpretation Comments POCT HBA1C (test code = 4548-4) 9.1 % 4-6 A Lab Interpretation (test code = Abnormal 44646-4) [facility] HEMOGLOBIN A1C [id number] 20:09:00 Test Item Value Reference Range Interpretation Comments POCT HBA1C (test code = 4548-4) 9.1 % 4-6 A Lab Interpretation (test code = Abnormal 62730-0) [facility] HEMOGLOBIN A1C [id number] 20:09:00 Test Item Value Reference Range Interpretation Comments POCT HBA1C (test code = 4548-4) 9.1 % 4-6 A Lab Interpretation (test code = Abnormal 83587-1) [facility] [id number] 05:58:51 Test Item Value Reference Interpretation Comments Range TROPONIN I (test 0.005 ng/mL See_Comment [Automated code = 4832649794) message] The system which generated this result transmitted reference range : <=0.034. The reference range was not used to interpret this result as normal/abnormal . BRENDON (test code = Reference (Normal) BRENDON) Range (defined by the 99th percentile reference limit): <= 0.034 ng/mL Note: Cardiac troponin begins to rise 3-4 hours after the onset of ischemia. Repeat in 4-6 hours if the sample was drawn within 3-4 hours of the onset of the symptom and found normal. Diagnosis of myocardial injury is made with acute changes in cTn concentrations with at least one serial sample above the 99th percentile upper reference limit (URL), taken together with the patient's clinical presentation. Biotin has been reported to cause a negative bias, interpret results relative to patient's use of biotin. Lab Interpretation Normal (test code = 93514-2) [facility] [id number] 03:59:23 Test Item Value Reference Range Interpretation Comments NT-proBNP (test code 526 pg/mL See_Comment H [Autom ated = 8800894088) message] The system which generated this result transmitted reference range : <=125. The reference range was not used to interpret this result as normal/abnormal . BRENDON (test code = BRENDON) Biotin has been reported to cause a negative bias, interpret results relative to patient's use of biotin. Lab Interpretation Abnormal (test code = 64035-2) [facility]. METABOLIC PANEL (61262)2021-06-24 03:50:26 Test Item Value Reference Range Interpretation Comments NA (test code = 133 mmol/L 135-145 L 3990123172) K (test code = 4.4 mmol/L 3.5-5.0 9890031572) CL (test code = 97 mmol/L 98-108 L 6216748160) CO2 TOTAL (test code = 30 mmol/L 23-31 4575032504) AGAP (test code = 2-16 2032156742) BUN (test code = 35 mg/dL 7-23 H 8211327333) GLUCOSE (test code = 182 mg/dL 70-110 H 4955251410) CREATININE (test code = 2.03 mg/dL 0.60-1.25 H 1502228623) TOTAL BILI (test code = 0.4 mg/dL 0.1-1.6 7055953934) CALCIUM (test code = 8.8 mg/dL 8.6-10.6 1999926370) T PROTEIN (test code = 7.0 g/dL 6.3-8.2 2032975432) ALBUMIN (test code = 3.9 g/dL 3.5-5.0 9745129892) ALK PHOS (test code = 98 U/L 34-122 7981348988) ALTv (test code = 16 U/L 5-50 1742-6) AST(SGOT) (test code = 24 U/L 13-40 8998481040) eGFR (test code = mL/min/1.73m2 2989109734) BRENDON (test code = BRENDON) Association of Glomerular Filtration Rate (GFR) and Staging of Kidney Disease* + --+ --+ ------+| GFR (mL/min/1.73 m2) ?| With Kidney Damage ?| ?Without Kidney Damage+ --------+ --------+ +| ?>90 ?| ?Stage one ?| ? Normal ?+ ---+ ---+ -------+| ?60-89 ?| ?Stage two ?| ? Decreased GFR ? + --+ --+ ------+| ?30-59 ?| ?Stage three ?| ? Stage three ? + --+ --+ ------+| ?15-29 ?| ?Stage four ? | ? Stage four ?+ ---+ ---+ -------+| ?<15 (or dialysis) ? ?| ?Stage five ? | ? Stage five ?+ ---+ ---+ -------+ *Each stage assumes the associated GFR level has been in effect for at least three months. ?Stages 1 to 5, with or without kidney disease, indicate chronic kidney disease. Notes: Determination of stages one and two (with eGFR >59mL/min/1.73 m2) requires estimation of kidney damage for at least three months as defined by structural or functional abnormalities of the kidney, manifested by either:Pathological abnormalities or Markers of kidney damage (including abnormalities in the composition of the blood or urine or abnormalities in imaging tests). Lab Interpretation Abnormal (test code = 56754-6) [facility] WITH [id number] 03:18:01 Test Item Value Reference Range Interpretation Comments WBC (test code = See_Comment [Automated 5990-2) message] The sy stem which generated this result transmitted reference range : 4.20 - 10.70 10*3/?L. The reference range was not used to interpret this result as normal/abnormal . RBC (test code = See_Comment L [Automated 959-8) message] The sy stem which generated this result transmitted reference range : 4.26 - 5.52 10*6/?L. The reference range was not used to interpret this result as normal/abnormal . HGB (test code = 11.9 g/dL 12.2-16.4 L 718-7) HCT (test code = 34.3 % 38.4-49.3 L 4544-3) MCV (test code = 88.4 fL 81.7-95.6 787-2) MCH (test code = 30.7 pg 26.1-32.7 785-6) MCHC (test code = 34.7 g/dL 31.2-35.0 786-4) RDW-SD (test code = 41.5 fL 38.5-51.6 13650-4) RDW-CV (test code = 12.9 % 12.1-15.4 788-0) PLT (test code = See_Comment [Automated 777-3) message] The sy stem which generated this result transmitted reference range : 150 - 328 10*3/ ?L. The reference r yogesh was not used to interpret this result as normal/abnormal . MPV (test code = 9.9 fL 9.8-13.0 94875-9) NRBC/100 WBC (test See_Comment [Automat ed code = 9610577532) message] The system which generated this result transmitted reference range : 0.0 - 10.0 /100 WBCs. The refer ence range was not u sed to interpret th is result as normal/abnormal . NRBC x10^3 (test code <0.01 See_Comment [Auto mated = 2854402530) message] The s ystem which generated this result transmitted reference range : 10*3/?L. The reference range was not used to interpret this result as normal/abnormal . GRAN MAT (NEUT) % 54.0 % (test code = 770-8) IMM GRAN % (test code 0.90 % = 0927973749) LYMPH % (test code = 30.1 % 736-9) MONO % (test code = 12.2 % 5905-5) EOS % (test code = 2.5 % 713-8) BASO % (test code = 0.3 % 706-2) GRAN MAT x10^3(ANC) 3.50 10*3/uL 1.99-6.95 (test code = 0920352318) IMM GRAN x10^3 (test 0.06 10*3/uL 0.00-0.06 code = 8956558396) LYMPH x10^3 (test code 1.95 10*3/uL 1.09-3.23 = 731-0) MONO x10^3 (test code 0.79 10*3/uL 0.36-1.02 = 742-7) EOS x10^3 (test code = 0.16 10*3/uL 0.06-0.53 711-2) BASO x10^3 (test code <0.03 0.01-0.09 = 704-7) Lab Interpretation Abnormal (test code = 68228-7) [facility] Test Item Value Reference Range Interpretation Comments GLUBED (test code = 246 MG/DL 70-110 H 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 C REACTIVE [id number] 13:50:00 Test Item Value Reference Range Interpretation Comments C REACTIVE PROTEIN (test code = CRP) 8.0 mg/L <10.0 N BASIC METABOLIC [id number] 13:50:00 Test Item Value Reference Range Interpretation [...] 8.7 mg/dL 8.0-10.5 N CA) CBC W/AUTO [id number] 13:19:00 Test Item Value Reference Range Interpretation [...] REQUIRED (test code = MDIFF) CBC W/AUTO [id number] 13:19:00 Test Item Value Reference Range Interpretation [...] DIFF REQUIRED (test code NO = MDIFF) [id number] 12:05:00 Test Item Value Reference Range Interpretation Comments GLUBED (test code = 209 MG/DL 70-110 H 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 - DUP LE ART [id number] 17:18:00 [facility] 1960 Sex: M Name: MARCOS RAMOS [facility] : 1960 Age/S: 60 / M [address] [place] [address] Unit #: [id number] Loc: [place] [address] Phys: Mark Alexander BUNDLE SHAKER Acct: [id number] Dis Date: Status: ADM IN PHONE #: [phone] Exam Date: 07/14/2020 1655 FAX #: [phone] Reason: bilat foot uclers EXAMS: CPT CODE: [id number] DUP LE ART ABHISHEK 59852 Clinical Indication: Bilateral foot ulcers; Comparison: None TECHNIQUE: Bilateral lower extremity arterial Doppler evaluation without ABIs was performed with arce scale, color Doppler, and spectral Doppler evaluation. 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 FINDINGS: RIGHT LOWER EXTREMITY: ELECTRONICS MECHANIC: Patent, triphasic waveform. SFA: Patent, triphasic waveform. Popliteal: Patent, triphasic waveform. Posterior tibial: Patent, triphasic waveform. Dorsalis pedis: Patent, triphasic waveform. LEFT LOWER EXTREMITY: ELECTRONICS MECHANIC: Patent, triphasic waveform. SFA: Patent, biphasic waveform. Popliteal: Patent, triphasic waveform. Posterior tibial: Patent, biphasic waveform. Dorsalis pedis: Patent, triphasic waveform. IMPRESSION: Patent bilateral lower extremity arterial vasculature with multiphasic waveforms. SL: [id number] at 1718 Reported and signed by: Kuldeep Kuo M.D. PAGE 1 Signed Report (CONTINUED) Name: MARCOS RAMOS [facility] : 1960 Age/S: 60 / M [address] [place] [address] Blvd Unit #:[id number] Loc: [place] [address] Phys: Mark Alexander NP Acct: [id number] Dis Date: Status: ADM IN PHONE #: [phone] Exam Date: 07/14/2020 1655 FAX #: [phone] Reason: bilat foot uclers EXAMS: CPT CODE: [id number] DUP LE ART ABHISHEK 10559 <Continued> CC: Judah Campuzano MD; Mark Alexander NP Technologist: Sherin Hudson RDMS(AB) Trnscb Date/Time: 07/14/2020 (1717) [email or web address].[email or web address] Orig Print D/T: S: 07/14/2020 (172) Probe: PAGE 2 Signed Report- DUP VEIN [id number] 17:03:00 [facility] 1960 Sex: M Name: MARCOS RAMOS [facility] : 1960 Age/S: 60 / M [address] [place] [address] Unit #: [id number] Loc: [place] [address] Phys: Jocelynn Mehta Acct: [id number] Dis Date: Status: ADM IN PHONE #: [phone] Exam Date: 07/14/2020 1655 FAX #: [phone] Reason: hx of DVT EXAMS: CPT CODE: [id number] DUP VEIN ABHISHEK 28545 Clinical Indication: History of DVT, bilateral lower [...] Porfirio at 1702 hours on 07/14/2020. SL: [id number] at 1703 Reported and signed by: Kuldeep Kuo M.D. CC: Jocelynn Mehta; Judah Campuzano MD Technologist: MATHEUS Correia(AB) Trnscb Date/Time: 07/14/2020 (170) [id number] Orig Print D/T: S: 07/14/2020 (1706) Probe: PAGE 1 Signed [id number]-[id number] 16:30:00 Test Item Value Reference Range Interpretation [...] APPROPRIATECLIN ICAL EUALUATIONS. - CTA CHEST FOR [id number] 16:24:00 [facility] 1960 Sex: M Name: MARCOS RAMOS Jovanny [facility] : 1960 Age/S: 60 / M [address] [place] [address] Blvd Unit #: [id number] Loc: [place] [address] Phys: Jocelynn Mehta BUNDLE SHAKER-C Acct: [id number] Dis Date: Status: ADM IN PHONE #: [phone] Exam Date: 07/14/2020 1553 FAX #: [phone] Reason: rule out PE, Hx of PE EXAMS: CPT CODE: [id number] [place] [address] Clinical Indication: History of PE. Shortness of [...] 4. Evidence of prior granulomatous process. SL: [id number] PAGE 1 Signed Report (CONTINUED) Name: MARCOS RAMOS [facility] : 1960 Age/S: 60 / M [address] [place] [address] Blvd Unit #: [id number] Loc: [place] [address] Phys: Jocelynn Mehta Acct: [id number] Dis Date: Status: ADM IN PHONE #: [phone] Exam Date: 07/14/2020 1553 FAX #: [phone] Reason: rule out PE, Hx of PE EXAMS: CPT CODE: [id number] [place] [address] <Continued> at 7684 Reported and signed by: Kuldeep Kuo M.D. 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 SED RATE [id number] 11:49:00 Test Item Value Reference Range Interpretation Comments SED RATE TOBI (test code = 39 mm/hr 0-15 H SEDW) BASIC METABOLIC [id number] 11:18:00 Test Item Value Reference Range Interpretation [...] code = 8.6 mg/dL 8.0-10.5 N CA) [id number] 11:18:00 Test Item Value Reference Range Interpretation Comments MAGNESIUM (test code = MAG) 1.49 mg/dL 1.80-2.40 L [id number] 11:18:00 Test Item Value Reference Range Interpretation [...] may masoud y by method. 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 [id number] 19:23:00 Test Item Value Reference Range Interpretation [...] HGBA1C%) 11.2 %A1C 4.8-6.0 H LACTIC ACID [id number] 19:17:00 Test Item Value Reference Range Interpretation Comments LACTIC ACID REPEAT (test code = 2.3 mmol/l 0.4-1.9 H LACTR) UA RFLX MICR CULT IF [id number] 17:25:00 Test Item Value Reference Range Interpretation [...] culture: RiskForSepsis-no oth srcSpecimen Description: CLEAN CATCHLIPOPROTEIN [id number] 17:03:00 Test Item Value Reference Range Interpretation Comments LIPOPROTEIN LDL 165.8 mg/dL 0-100 H <100 OPT [id number] (test code = LDL) NEAR OPTI MAL/ABOVE [id number] [id number] 89 HIGH>GY=939 VE RY HIGH*Guidelines provided by the National Choles terol EducationProa Adult Treatment Panel III BASIC METABOLIC [id number] 16:44:00 Test Item Value Reference Range Interpretation [...] 8.8 mg/dL 8.0-10.5 N CA) HEPATIC FUNCTION [id number] 16:44:00 Test Item Value Reference Range Interpretation [...] 121 IUnit/L 20-125 N code = ALKP) [id number] 16:44:00 Test Item Value Reference Range Interpretation [...] may masoud y by method. BASIC METABOLIC [id number] 16:41:00 Test Item Value Reference Range Interpretation [...] code = CA) mg/dL 8.0-10.5 HEPATIC FUNCTION [id number] 16:41:00 Test Item Value Reference Range Interpretation Comments TOTAL PROTEIN (test code = PROT) g/dL 6.4-8.2 ALBUMIN (test code = ALB) g/dL 3.4-5.0 BILIRUBIN TOTAL (test code = BILT) mg/dL 0.0-1.0 BILIRUBIN DIRECT (test code = BILD) MG/DL 0.0-0.30 SGOT/AST (test code = AST) IUnit/L 15-37 SGPT/ALT (test code = ALT) IUnit/L 30-65 ALKALINE PHOSPHATASE TOTAL (test IUnit/L 20-125 code = ALKP) [id number] 16:41:00 Test Item Value Reference Range Interpretation [...] results may masoud y by method. LACTIC [id number] 16:39:00 Test Item Value Reference Range Interpretation Comments LACTIC ACID (test code = LACT) 2.6 mmol/L 0.4-1.9 H - XR CHEST 1 [id number] 16:34:00 [facility] 1960 Sex: M FAX: Buddy Guallpa [phone] [place]: St: ADM Name: MARCOS RAMOS [facility] : 1960 Age/S: 60/M [address] [place] [address] Bl Unit #: [id number] Loc: [place] [address] Phys: Jaylene Pal BUNDLE SHAKER Acct: [id number] Dis Date: Status: ADM IN PHONE #: [phone] Exam Date: 07/13/2020 1620 FAX #: [phone] Reason: sepsis EXAMS: CPT CODE: [id number] XR CHEST 1 V 48663 Portable single view AP chest INDICATION: Sepsis. [...] by: Festus Mejia M.D. CC: Buddy Pal BUNDLE SHAKER Technologist: Meme Banerjee, RT(R); RT Abimbola(R) Trnnjrd Date/Time/By: 07/13/2020 (246) : By: SunnySG9 Orig Print D/T: S: 07/13/2020 (5194) PAGE 1 Signed ReportCBC W/AUTO [id number] 16:28:00 Test Item Value Reference Range Interpretation [...] (test code NO = MDIFF) CBC W/AUTO [id number] 16:27:00 Test Item Value Reference Range Interpretation [...]
[2021-10-20] MEDS ORDERED: MORPHINE 2 MG/ML SYR ONE ×2 (18:05→22:45)
[2021-10-20] MEDS ORDERED: ONDANSETRON 4 MG/2 ML VIAL ONE (18:05)
[2021-10-20] MEDS ORDERED: NA CHLORIDE 0.9% 1,000 ML ONE (18:05)
[2021-10-20 18:24] LABS: Absolute Lymphocytes (CBC) 0.9 K/uL (0.7-4.9); Hematocrit 26.2 % (39.6-49.0); Lymphocytes % 11.9 % (15.3-44.8); MPV 8.6 fL (7.6-11.3); RBC Red Blood Cell Count 2.97 M/uL (4.33-5.43)
[2021-10-20 18:40] LABS: Potassium 4.3 mmol/L (3.5-5.1); Troponin High Sensitivity 12.8 pg/mL (<58.9)
--- NOTE | 2021-10-20 18:45 | RAD REPORT ---
EXAM DESCRIPTION: RAD - Chest Single View - 10/20/2021 6:32 pm CLINICAL HISTORY: CHEST PAIN COMPARISON: Chest Single View dated 12/02/2020; Chest Single View dated 05/01/2020; Chest Single View dated 09/04/2019; Chest Single View dated 03/28/2019 FINDINGS: Lines: None. Lungs: Mild elevation of the right hemidiaphragm and likely underlying atelectasis. Pleural: No significant pleural effusions or pneumothorax. Cardiac: The heart size is within normal limits. Bones: No acute fractures. Other: IMPRESSION: Probable mild right basilar atelectasis. No other acute process identified.
--- NOTE | 2021-10-20 19:46 | ER ---
Nurse's Notes [facility] Name: Gasper Fry Age: 61 yrs Sex: Male : 1960 Arrival Date: 10/20/2021 Time: 17:18 Bed 23 Private MD: Diagnosis: Chest pain, unspecified;Acute kidney failure, unspecified;Chronic kidney disease, unspecified;Syncopal episode Presentation: 10/20 17:18 Chief complaint: EMS states: Pt was at home when he had a syncopal episode. The episode jb4 was witness by family, he hit his head as he was falling. No deformity to the head was noted. Pt was orthostatic positive. Pt given LR fluids. Coronavirus screen: At this time, the client does not indicate any symptoms associated with coronavirus-19. Ebola Screen: No symptoms or risks identified at this time. Initial Sepsis Screen: Does the patient meet any 2 criteria? No. Patient's initial sepsis screen is negative. Does the patient have a suspected source of infection? No. Patient's initial sepsis screen is negative. Risk Assessment: Do you want to hurt yourself or someone else? Patient reports no desire to harm self or others. Onset of symptoms was October 20, 2021. Transition of care: patient was not received from another setting of care. 17:18 Method Of Arrival: EMS: [facility] 17:18 Acuity: DARREL 3 jb4 17:30 Care prior to arrival: IV initiated. 20 GA, in the right forearm, Glucose check: 464. bp Triage Assessment: 17:30 General: Appears in no apparent distress. comfortable, Behavior is cooperative, bp appropriate for age, drowsy. Pain: Denies pain. EENT: No deficits noted. Neuro: Level of Consciousness is alert, obeys commands, lethargic, Oriented to Appropriate for age. Cardiovascular: No deficits noted. Respiratory: No deficits noted. GI: No signs and/or symptoms were reported involving the gastrointestinal system. : No signs and/or symptoms were reported regarding the genitourinary system. Derm: No deficits noted. Musculoskeletal: No deficits noted. Historical: - Allergies: 17:20 Haldol (Anaphylaxis); jb4 17:20 Narcan (Anaphylaxis); jb4 - Home Meds: 20:04 Adderall XR 30 mg Oral cp24 1 cap twice a day [Active]; atorvastatin 40 mg Oral tab 1 ji tab once daily [Active]; Cogentin Oral 0.5 mg twice a day [Active]; Eliquis 5 mg Oral tab 1 tab 2 times per day [Active]; Glucophage Oral [Active]; hydrocodone-acetaminophen 10-325 mg Oral tab 1 tab twice a day [Active]; Klonopin 0.5 mg Oral tab 1 tab 2 times per day [Active]; losartan 50 mg Oral tab 1 tab once daily [Active]; metoprolol tartrate 50 mg Oral tab 1 tab 2 times per day [Active]; Novolin 70/30 Innolet 45 units Sub-Q 45 units twice a day with meals [Active]; Risperdal 4 mg Oral tab 1 tab 2 times per day [Active]; tramadol 50 mg Oral tab 1 tab twice a day [Active]; Victoza 2-Reid subcutaneous [Active]; - PMHx: 17:20 ADD/ADHD; Bipolar disorder; Chronic pain; Cellulitis; Anxiety; CVA; Diabetes - IDDM; jb4 Hypertension; neuropathy; Seizures; - Immunization history:: Adult Immunizations unknown. - Social history:: Smoking status: unknown. Screenin:30 Abuse screen: Denies threats or abuse. Denies injuries from another. Nutritional bp screening: No deficits noted. Tuberculosis screening: No symptoms or risk factors identified. Fall Risk None identified. Assessment: 17:30 General: SEE TRIAGE NOTE. bp 18:22 Reassessment: No changes from previously documented assessment. Patient and/or family bp updated on plan of care and expected duration. Pain level reassessed. 20:07 Reassessment: The pt is to be admitted to the hospital. ji Vital Signs: 17:30 BP 117 / 67; Pulse 81; Resp 16; Temp 98; Pulse Ox 97% ; bp 18:22 BP 126 / 73; Pulse 70; Resp 16; Pulse Ox 98% ; bp 20:03 BP 117 / 61; Pulse 70; Resp 18; Temp 98.3; Pulse Ox 100% on R/A; ji 21:18 BP 104 / 67; Pulse 69; Resp 18; Temp 98.5; Pulse Ox 98% on R/A; Pain 0/10; ji ED Course: 17:18 Patient arrived in ED. jb4 17:20 Triage completed. jb4 17:20 Arm band placed on right wrist. jb4 17:30 Micky Torres, RN is Primary Nurse. bp 17:30 Patient has correct armband on for positive identification. Bed in low position. Call bp light in reach. Side rails up X2. 17:30 Maintain EMS IV. Dressing intact. Good blood return noted. Site clean \T\ dry. Gauge \T\ bp site: 20 GAUGE R FA. 17:40 Marylu Finn PA is PHCP. en 17:40 Justin Gregorio MD is Attending Physician. en 18:34 XRAY Chest (1 view) In Process Unspecified. EDMS 19:22 Client placed on continuous cardiac and pulse oximetry monitoring. NIBP monitoring wm applied. 19:22 EKG done, by ED staff. wm 19:43 Raimundo Lieberman MD is Hospitalizing Provider. en 20:04 No provider procedures requiring assistance completed. ji 20:06 Patient admitted, IV remains in place. ji 10/22 07:21 Primary Nurse role handed off by Micky Torres, MALU bd Administered Medications: 10/20 18:15 Drug: NS 0.9% 1000 ml Route: IV; Rate: 1 bolus; Site: right forearm; bp 18:21 Drug: morphine 2 mg Route: IVP; Site: right forearm; bp 19:06 Follow up: Response: Pain is decreased bp 18:21 Drug: Zofran (Ondansetron) 4 mg Route: IVP; Site: right forearm; bp 19:05 Follow up: Response: No adverse reaction bp 18:21 Not Given (Hemodynamic Parameters): Nitro-Bid (nitroglycerin) Ointment 2 % 1 inches bp Transdermal once 18:57 CANCELLED (Other Intervention Used): NS 0.45 % 1000 ml IV at bolus once en Medication: 17:30 VIS not applicable for this client. bp Outcome: 19:45 Decision to Hospitalize by Provider. en 20:04 Condition: stable ji 20:04 Admitted to ji 10/23 10:06 Patient left the ED. jl7 Signatures: Dispatcher [employer] EDMS Rita Herrera James, RN RN jb4 José Antonio Todd RN RN jl7 Micky Torres RN RN bp Marsh, Wendy Guadalupe Mock RN RN Marylu Obando PA PA en Corrections: (The following items were deleted from the chart) 10/20 19:05 18:22 BP 126 / 3; Pulse 70bpm; Resp 16bpm; Pulse Ox 98%; bp bp
--- NOTE | 2021-10-20 19:46 | EDPHYS ---
Physician Documentation [facility] Name: Gasper Fry Age: 61 yrs Sex: Male : 1960 Arrival Date: 10/20/2021 Time: 17:18 Bed 23 Private MD: ED Physician Justin Gregorio HPI: 10/20 19:29 This 61 yrs old Male presents to ER via EMS with complaints of Syncopal en episode. 19:29 61 yo M with HTN, DM, CKD not on HD, presents to ED s/p syncopal episode. Pt reports en having intermittent left sided chest pressure for past 4 days. Was feeling lightheaded and nauseated and "woke up on floor". EMS was called by family. Pt denies F/C. Has intermittent SOB with LEES and orthopnea, no peripheral edema. Onset: The symptoms/episode began/occurred 4 day(s) ago. Severity of symptoms: At their worst the symptoms were moderate 6 day(s) ago. . Historical: - Allergies: 17:20 Haldol (Anaphylaxis); jb4 17:20 Narcan (Anaphylaxis); jb4 - Home Meds: 20:04 Adderall XR 30 mg Oral cp24 1 cap twice a day [Active]; atorvastatin 40 mg Oral tab 1 ji tab once daily [Active]; Cogentin Oral 0.5 mg twice a day [Active]; Eliquis 5 mg Oral tab 1 tab 2 times per day [Active]; Glucophage Oral [Active]; hydrocodone-acetaminophen 10-325 mg Oral tab 1 tab twice a day [Active]; Klonopin 0.5 mg Oral tab 1 tab 2 times per day [Active]; losartan 50 mg Oral tab 1 tab once daily [Active]; metoprolol tartrate 50 mg Oral tab 1 tab 2 times per day [Active]; Novolin 70/30 Innolet 45 units Sub-Q 45 units twice a day with meals [Active]; Risperdal 4 mg Oral tab 1 tab 2 times per day [Active]; tramadol 50 mg Oral tab 1 tab twice a day [Active]; Victoza 2-Reid subcutaneous [Active]; - PMHx: 17:20 ADD/ADHD; Bipolar disorder; Chronic pain; Cellulitis; Anxiety; CVA; Diabetes - IDDM; jb4 Hypertension; neuropathy; Seizures; - Immunization history:: Adult Immunizations unknown. - Social history:: Smoking status: unknown. ROS: 19:29 Constitutional: Negative for fever, chills, and weight loss. en 19:29 Cardiovascular: Positive for chest pain, orthopnea, Negative for edema, palpitations. 19:29 Respiratory: Positive for dyspnea on exertion, shortness of breath, Negative for cough. 19:29 Abdomen/GI: Negative for nausea and vomiting. 19:29 Neuro: Positive for dizziness, syncope. 19:29 All other systems are negative. Exam: 19:45 Constitutional: The patient appears Chronically ill appearing, cooperative, nontoxic en 19:45 Constitutional: The patient appears 19:45 Neck: No JVD. 19:45 Cardiovascular: Rate: normal, Rhythm: regular, Pulses: no pulse deficits are appreciated, Heart sounds: normal, murmur, not appreciated, rub, not appreciated, gallop, not appreciated. 19:45 Respiratory: the patient does not display signs of respiratory distress, Respirations: normal, Breath sounds: are clear throughout. 19:45 Abdomen/GI: Inspection: abdomen appears normal, Bowel sounds: normal, Palpation: soft. 19:45 Neuro: Orientation: appropriate for stated age, no acute changes, residual slurred en speech from previous CVA otherwise at baseline . 19:49 Constitutional: Elderly appearing, cooperative, nontoxic en Vital Signs: 17:30 BP 117 / 67; Pulse 81; Resp 16; Temp 98; Pulse Ox 97% ; bp 18:22 BP 126 / 73; Pulse 70; Resp 16; Pulse Ox 98% ; bp 20:03 BP 117 / 61; Pulse 70; Resp 18; Temp 98.3; Pulse Ox 100% on R/A; ji 21:18 BP 104 / 67; Pulse 69; Resp 18; Temp 98.5; Pulse Ox 98% on R/A; Pain 0/10; ji MDM: 19:28 Patient medically screened. ms3 19:29 Differential Diagnosis syncope, ACS, dysrythmia, hyperglycemia, worsening LISBETH. Data en reviewed: vital signs, nurses notes, old medical records, lab test result(s), EKG, radiologic studies, and as a result, I will admit patient. Data interpreted: site monitor: rate is 72 beats/min, rhythm is normal sinus rhythm, 1mm ST elevation in V2 normal axis, normal intervals, No STEMI. ED course: Reviewed imaging and labs. Pt glucose 220's here. no insulin in ED. LISBETH on CKD, will get head CT and admit for syncopal episode, CP, LISBETH on CKD. ED course: Accepted by Manny Almanza NP on behalf of Dr Fernández. 10/20 17:54 Order name: Basic Metabolic Panel; Complete Time: 18:42 en 10/20 17:54 Order name: CBC with Diff; Complete Time: 18:29 en 10/20 17:54 Order name: Troponin HS; Complete Time: 18:42 en 10/20 18:17 Order name: Glucose, Ancillary Testing; Complete Time: 18:29 EDMS 10/20 23:03 Order name: Glucose, Ancillary Testing EDMS 10/21 02:45 Order name: SARS-COV-2 RT PCR EDMS 10/21 05:11 Order name: Comprehensive Metabolic Panel EDMS 10/21 05:11 Order name: Troponin High Sensitivity EDMS 10/21 05:20 Order name: CBC with Automated Diff EDMS 10/21 05:57 Order name: Urinalysis EDMS 10/21 06:05 Order name: Urinalysis EDMS 10/21 06:22 Order name: Urine Microscopic Only EDMS 10/21 08:06 Order name: Glucose, Ancillary Testing EDMS 10/21 11:09 Order name: Hemoglobin A1c EDMS 10/21 11:43 Order name: Glucose, Ancillary Testing EDMS 10/21 12:19 Order name: Troponin High Sensitivity EDMS 10/21 12:33 Order name: Creatine Phosphokinase EDMS 10/21 16:02 Order name: Glucose, Ancillary Testing EDMS 10/21 20:24 Order name: Glucose, Ancillary Testing EDMS 10/22 04:38 Order name: CBC with Automated Diff EDMS 10/22 04:48 Order name: Comprehensive Metabolic Panel EDMS 10/22 07:44 Order name: Urinalysis EDMS 10/22 07:50 Order name: Glucose, Ancillary Testing EDMS 10/22 07:51 Order name: Glucose, Ancillary Testing EDMS 10/22 07:59 Order name: Urine Microscopic Only EDMS 10/22 08:01 Order name: Ur Protein EDMS 10/22 08:07 Order name: Urine Culture EDMS 10/22 11:52 Order name: Glucose, Ancillary Testing EDMS 10/22 16:45 Order name: Glucose, Ancillary Testing EDMS 10/22 22:04 Order name: Glucose, Ancillary Testing EDMS 10/20 17:54 Order name: XRAY Chest (1 view); Complete Time: 19:30 en 10/20 17:54 Order name: EKG; Complete Time: 17:54 en 10/20 17:54 Order name: Cardiac monitoring; Complete Time: 19:21 en 10/20 17:54 Order name: EKG - Nurse/Tech; Complete Time: 19:21 en 10/20 17:54 Order name: IV Saline Lock; Complete Time: 18:21 en 10/20 17:54 Order name: Labs collected and sent; Complete Time: 18:21 en 10/20 17:54 Order name: O2 Per Protocol; Complete Time: 18:21 en 10/20 17:54 Order name: O2 Sat Monitoring; Complete Time: 18:21 en 10/21 09:00 Order name: US EDMS 10/21 13:09 Order name: CT EDMS 10/23 03:52 Order name: CBC with Automated Diff EDMS 10/23 04:04 Order name: Comprehensive Metabolic Panel EDMS 10/23 07:31 Order name: Glucose, Ancillary Testing EDMS Administered Medications: 18:15 Drug: NS 0.9% 1000 ml Route: IV; Rate: 1 bolus; Site: right forearm; bp 18:21 Drug: morphine 2 mg Route: IVP; Site: right forearm; bp 19:06 Follow up: Response: Pain is decreased bp 18:21 Drug: Zofran (Ondansetron) 4 mg Route: IVP; Site: right forearm; bp 19:05 Follow up: Response: No adverse reaction bp 18:21 Not Given (Hemodynamic Parameters): Nitro-Bid (nitroglycerin) Ointment 2 % 1 inches bp Transdermal once 18:57 CANCELLED (Other Intervention Used): NS 0.45 % 1000 ml IV at bolus once en Disposition Summary: 10/20/21 19:45 Hospitalization Ordered Hospitalization Status: Inpatient Admission en Provider: Raimundo Lieberman en Condition: Fair en Problem: chronic en Symptoms: have worsened en Bed/Room Type: Standard en Location: [facility] ER HOLD(10/20/21 20:11) tw5 Room Assignment: ERHOLD-(10/20/21 20:11) tw5 Diagnosis - Chest pain, unspecified en - Acute kidney failure, unspecified en - Chronic kidney disease, unspecified en - Syncopal episode en Forms: - Medication Reconciliation Form en - SBAR form en Signatures: Dispatcher [employer] EDMS Manny Almanza, CODING SUPPORT SPECIALIST-C CODING SUPPORT SPECIALIST-Cla1 Vick Purdy, RN RN jb4 Micky Torres RN RN bp Yoni Ortiz, DO ms3 Rosario Carltonfany tw5 Guadalupe Mock RN RN bo Newkirk, Elizabeth, PA PA en Corrections: (The following items were deleted from the chart) 18:57 18:42 NS 0.45 % 1000 ml IV at bolus once ordered. en en : 19:45 Telemetry/MedSurg (Inpatient) en tw5 20:11 19:45 en tw5
--- NOTE | 2021-10-20 20:38 | P.HP ---
Certification for Inpatient Patient admitted to: Inpatient With expected LOS: >2 Midnights Patient will require the following post-hospital care: None Practitioner: I am a practitioner with admitting privileges, knowledge of patient current condition, hospital course, and medical plan of care. Services: Services provided to patient in accordance with Admission requirements found in Title 42 Section 412.3 of the Code of Federal Regulations Patient History Date of Service: 10/20/21 Reason for admission: Syncope, LISBETH, chest pain History of Present Illness: 61-year-old male with history of diabetes mellitus type 2insulin-dependent, CKD, GERD, hypertension, hyperlipidemia, CAD, DVT on chronic anticoagulation presents emergency department for syncope, chest pain. Patient was evaluated in the emergency department found have worsening of his renal function initial troponin is negative chest x-ray noted for some atelectasis patient with anemia of chronic disease. ED provider wishes to admit for further evaluation and management of syncope, acute kidney injury, chest pain. Allergies haloperidol [From Haldol] Allergy (Verified 12/03/20 01:19) Anaphylaxis naloxone [From Narcan] Allergy (Verified 12/03/20 01:19) Anaphylaxis Home Medications: Apixaban [Eliquis] 1 tab PO BID 12/01/19 Divalproex Sodium [Depakote] 3 tab PO BEDTIME 12/01/19 Losartan Potassium [Cozaar*] 1 tab PO DAILY 12/01/19 Metoprolol Tartrate [Lopressor*] 1 tab PO BID 12/01/19 Tramadol HCl [Ultram] 1 tab PO BID 12/01/19 Atorvastatin Calcium [Lipitor] 40 mg PO DAILY 03/05/20 Amlodipine [Norvasc*] 10 mg PO DAILY 12/03/20 Carvedilol [Coreg] 12.5 mg PO BID 12/03/20 Isosorbide Mononitrate [Isosorbide Mononitrate ER] 30 mg PO DAILY 12/03/20 Nitroglycerin 0.4 mg SL SEECOM 12/03/20 Pantoprazole [Protonix Tab*] 40 mg PO DAILY 12/03/20 Tamsulosin [Flomax*] 0.4 mg PO DAILY 12/03/20 Calcitrol [Rocaltrol*] 0.5 mcg PO DAILY #30 cap 12/06/20 Hydralazine [Apresoline*] 25 mg PO BID #60 tab 12/06/20 Hydrocodone 10/APAP 325 [[place] 10/325*] 1 tab PO BID #20 tab 12/06/20 Minocycline HCl 100 mg PO BID #14 capsule 12/06/20 Sulfamethoxazole/Trimethoprim [Bactrim Ds Tablet] 1 each PO DAILY #7 tablet 12/06/20 - Past Medical/Surgical History Diabetic: Yes -: Diabetes mellitus type 2, insulin-dependent -: Hypertension -: Seizure disorder -: Peripheral vascular disease -: History of osteomyelitis -: Hyperlipidemia -: Bipolar disorder -: Tobacco abuse -: schizophrenia -: History of amputation to the left great toe -: History of blood clots -: seizures -: Neck and back surgery -: Right eye removal -: Right knee surgery -: Bilateral wrist surgery due to suicide attempt -: Left great toe amputation Psychosocial/ Personal History: Patient is . He has 2 children. He lives at home. - Family History Brother -: Hypertension Sister -: Diabetes Father -: Heart disease Notes: heart attack Mother -: Diabetes - Social History Smoking Status: Current every day smoker Counseled patient to stop smoking for: less than 10 minutes Smoking therapy provided: No (Patient declined) Alcohol use: No CD- Drugs: No Caffeine use: Yes Place of Residence: Home Review of Systems 10-point ROS is otherwise unremarkable Cardiovascular: Chest Pain, Other (Syncope) Physical Examination - Physical Exam General: Alert, In no apparent distress, Oriented x3 HEENT: Atraumatic, PERRLA, Mucous membr. moist/pink, EOMI, Sclerae nonicteric Neck: Supple, 2+ carotid pulse no bruit, No LAD, Without JVD or thyroid abnormality Respiratory: Clear to auscultation bilaterally, Normal air movement Cardiovascular: Regular rate/rhythm, Normal S1 S2, Edema (Trace edema bilateral lower extremities) Capillary refill: <2 Seconds Gastrointestinal: Normal bowel sounds, No tenderness Musculoskeletal: No tenderness Integumentary: No rashes Neurological: Normal strength at 5/5 x4 extr, Normal tone, Normal affect, Abnormal speech (Mildly slurredat baseline) - Studies Laboratory Data (last 24 hrs) 10/20/21 18:10: WBC 7.8, Hgb 9.1 L, Hct 26.2 L, Plt Count 191 10/20/21 18:10: Sodium 137, Potassium 4.3, BUN 59 H, Creatinine 3.63 H, Glucose 244 H Assessment and Plan - Plan Assessment: Chest pain/syncope Acute worsening of CKD 3 Diabetes type 2insulin-dependent with hyperglycemia History of DVT on chronic anticoagulation therapy Hypertension Hyperlipidemia CAD Depression/anxiety/schizoaffective disorder Plan: Chest pain/syncope: Trend troponins, monitor on telemetry, cardiology consulted, echocardiogram ordered. Patient also with history of DVT on chronic anticoa gulation unable to have CT PE protocol given worsening of renal function consider further evaluation for possible pulmonary embolism. Possible VQ scan. Acute worsening of CKD 3: Nephrology consulted renal ultrasound ordered continue gentle hydration patient with trace edema of lower extremities no signs of significant volume overload at this time. Diabetes type 2insulin-dependent with hyperglycemia: ACH S Accu-Chek, sliding scale insulin, continue patient's home regimen. History of DVT on chronic anticoagulation therapy: Continue Eliquis Hypertension: Continue home meds Hyperlipidemia: Continue home meds CAD: Monitor on telemetry, continue home meds Depression/anxiety/schizoaffective disorder: Continue home meds DVT PPX: Continue Eliquis Code status: Full Discharge Plan: Home Plan to discharge in: 48 Hours - Advance Directives Does patient have a Living Will: Yes Does patient have a Durable POA for Healthcare: Yes - Code Status/Comfort Care Code Status Assessed: Yes (Full code) Critical Care: No Time Spent Managing Pts Care (In Minutes): 55
[2021-10-20] MEDS ORDERED: NITROGLYCERIN 0.4 MG/TAB SL PRN (22:02)
[2021-10-20] MEDS ORDERED: ONDANSETRON 4 MG/2 ML VIAL IV PRN (22:02)
[2021-10-20] MEDS ORDERED: APIXABAN 2.5 MG TABLET PO SCH (22:02)
[2021-10-20] MEDS: Ringers Lactate 1,000 ML IV SCH (22:30)
[2021-10-20] MEDS: MORPHINE 2 MG/ML SYR IV PRN (22:30)
[2021-10-20] MEDS ORDERED: Ringers Lactate 1,000 ML IV ONE (22:45)
[2021-10-20] MEDS ORDERED: APIXABAN 2.5 MG TABLET ONE (23:37)
[2021-10-21] MEDS: INSULIN -REGULAR HUMAN 50 UNIT/0.5 ML ML SQ SCH ×5 (00:18→21:24)
[2021-10-21] MEDS: ATORVASTATIN 40 MG TAB PO SCH ×2 (00:19→21:25)
[2021-10-21] MEDS ORDERED: INSULIN -REGULAR HUMAN 50 UNIT/0.5 ML ML ONE ×3 (00:23→21:23)
[2021-10-21 01:23] VITALS: BMI 31.1
[2021-10-21 05:00] LABS: Absolute Lymphocytes (CBC) 1.2 K/uL (0.7-4.9); Hematocrit 27.8 % (39.6-49.0); Lymphocytes % 18.5 % (15.3-44.8); MPV 8.8 fL (7.6-11.3); RBC Red Blood Cell Count 3.11 M/uL (4.33-5.43)
[2021-10-21 05:10] LABS: Albumin 2.7 g/dL (3.4-5.0); Bilirubin Total 0.2 mg/dL (0.2-1.0); Potassium 4.1 mmol/L (3.5-5.1); Protein, Total 6.3 g/dL (6.4-8.2)
[2021-10-21 05:56] LABS: Urine Appearance Clear (Clear); Urine Bilirubin Negative (Negative); Urine Blood 1+ (Negative); Urine Color Yellow (Yellow); Urine Glucose Trace (Negative); Urine Protein 3+ (Negative); Urine Urobilinogen 0.2 mg/dL (0.2-1.0)
[2021-10-21 06:04] LABS: Urine Microscopic Reflex ORDER UMIC
[2021-10-21] MEDS: MORPHINE 2 MG/ML SYR IV PRN ×3 (06:12→23:22)
[2021-10-21] MEDS ORDERED: MORPHINE 2 MG/ML SYR ONE ×3 (06:15→23:26)
[2021-10-21 06:21] LABS: Urine Amorphous Sediment 2+ /HPF (NONE SEEN); Urine Bacteria >50 /HPF (NONE SEEN); Urine Mucus 2+ /HPF (NONE SEEN)
[2021-10-21] MEDS ORDERED: carvediloL 6.25 MG TAB ONE ×2 (08:22→16:37)
[2021-10-21] MEDS ORDERED: PANTOPRAZOLE 40 MG INJ ONE (08:23)
[2021-10-21] MEDS ORDERED: ATORVASTATIN 20 MG TAB ONE (08:23)
[2021-10-21] MEDS: PANTOPRAZOLE 40MG TABLET PO SCH (08:24)
[2021-10-21] MEDS: AMLODIPINE 10 MG TAB PO SCH ×2 (08:25→08:42)
[2021-10-21] MEDS: TRAMADOL HCL 50 MG TAB PO SCH ×2 (08:26→21:24)
[2021-10-21] MEDS: HYDRALAZINE HCL 25 MG TABLET PO SCH ×2 (08:26→21:24)
[2021-10-21] MEDS: carvediloL 6.25 MG TAB PO SCH ×2 (08:31→16:36)
--- NOTE | 2021-10-21 08:59 | RAD REPORT ---
EXAM DESCRIPTION: US - Renal Ultrasound-Complete - 10/20/2021 10:39 pm CLINICAL HISTORY: Worsening renal function COMPARISON: 2020 FINDINGS: The right kidney measures 11 cm with a normal echotexture. The left kidney measures 11 cm with a normal echotexture. Hydronephrosis is not seen. No gross abnormality of bladder IMPRESSION: Unremarkable renal ultrasound.
[2021-10-21] MEDS ORDERED: TAMSULOSIN 0.4 MG SR CAP PO SCH (09:00)
[2021-10-21] MEDS ORDERED: NITROGLYCERIN 0.4 MG/TAB SL SCH (09:00)
[2021-10-21] MEDS ORDERED: ATORVASTATIN 40 MG TAB PO SCH (09:00)
[2021-10-21] MEDS ORDERED: APIXABAN 5 MG TABLET PO SCH ×2 (09:00→21:00)
[2021-10-21] MEDS: ISOSORBIDE MONO SR 30 MG TAB PO SCH (10:32)
[2021-10-21] MEDS: Ringers Lactate 1,000 ML IV SCH ×2 (11:22→16:36)
--- NOTE | 2021-10-21 12:31 | P.PN ---
Subjective Date of Service: 10/21/21 Chief Complaint: Syncope, LISBETH, chest pain Subjective: No new changes, Improving Physical Examination - Vital Signs Temperature: 97.4 F Blood Pressure: 157/72 Pulse: 74 Respirations: 14 Pulse Ox (%): 100 - Physical Exam General: Alert, Oriented x3 HEENT: Atraumatic, Normocephalic Neck: Supple Respiratory: Normal air movement Cardiovascular: Regular rate/rhythm, Normal S1 S2 Gastrointestinal: Soft and benign Musculoskeletal: No swelling Neurological: Normal speech, Normal strength at 5/5 x4 extr - Studies Laboratory Data (last 24 hrs) 10/20/21 18:10: WBC 7.8, Hgb 9.1 L, Hct 26.2 L, Plt Count 191 10/20/21 18:10: Sodium 137, Potassium 4.3, BUN 59 H, Creatinine 3.63 H, Glucose 244 H Assessment And Plan - Plan Assessment and Plan - Plan Assessment: Chest pain/syncope Acute worsening of CKD 3 Diabetes type 2insulin-dependent with hyperglycemia History of DVT on chronic anticoagulation therapy Hypertension Hyperlipidemia CAD Depression/anxiety/schizoaffective disorder Plan: Chest pain/syncope: Has no new issues. BP looks better. Telemetry to be continued. Troponin trend non revealing. Aspirin and eliquis to be continued. Acute worsening of CKD 3: Cr is slightly better at 3.16 from 3.63. Nephrology consulted for management recs. Diabetes type 2insulin-dependent with hyperglycemia: ACHS Accu-Chek, sliding scale insulin, continue patient's home regimen. History of DVT on chronic anticoagulation therapy: Continue Eliquis dose. Hypertension: BP is still slightly elevated. we will continue BP meds for now. Hyperlipidemia: Continue home meds CAD: Monitor on telemetry, continue home meds Depression/anxiety/schizoaffective disorder: Continue home meds DVT PPX: Continue Eliquis for anticoagulation. Code status: Full. Discharge Plan: Home. Plan to discharge in: possible discharge in next 24 Hours
[2021-10-21] MEDS ORDERED: Ringers Lactate 1,000 ML IV SCH (13:00)
--- NOTE | 2021-10-21 13:09 | RAD REPORT ---
EXAM DESCRIPTION: CT - Head Brain Wo Cont - 10/21/2021 1:02 pm CLINICAL HISTORY: Head injury status post fall COMPARISON: 2019 TECHNIQUE: Computed axial tomography of the head was obtained. IV contrast was not requested. All CT scans are performed using dose optimization technique as appropriate and may include automated exposure control or mA/KV adjustment according to patient size. FINDINGS: An intracranial bleed is not seen . The ventricles are normal in caliber. No extra-axial fluid collection is noted. Right eye prosthesis Fluid within the sinuses/ mastoids is not seen. IMPRESSION: No acute intracranial abnormality is seen. If patient's symptoms persist MRI of the bra in would be recommended.
[2021-10-21] MEDS ORDERED: Ringers Lactate 1,000 ML IV ONE (15:43)
[2021-10-21] MEDS ORDERED: LABETALOL 20 MG/4ML SYRINGE IV PRN (17:55)
[2021-10-21] MEDS ORDERED: LABETALOL HCL 100 MG/20 ML ONE (18:07)
--- NOTE | 2021-10-21 19:26 | CON ---
Date of Consultation: 10/21/2021 Requesting Provider: Dr. Lieberman. Reason For Consultation: Acute kidney injury. History Of Present Illness: Mr. Fry is a 61-year-old male with a longstanding history of chronic kidney disease stage 3 with baseline creatinine approximately 2.1 on the background of diabetes and h ypertension, who presented to the hospital with syncopal events. Patient is currently seen in the em ergency room. States that he has been having episodes of passing out and has been admitted for furth er evaluation. Our consultation is requested for renal insufficiency. The patient had a creatinine on admission of 3.63, which improved to 3.18. Patient has been evaluated and treated with IV fluids at this time. He currently denies any history of contrast or NSAID use. He denies any change in uri nary habits. Past Medical History: Significant for hypertension, diabetes, history of DVT, BPH, chronic pain, and CKD also has bipolar disorder. Family History: Hypertension, diabetes, and heart disease. Social History: Patient is a current smoker. Objective: Vital Signs: Blood pressure is 157/72, pulse 74, afebrile. Input and output 1900 mL in, 1000 mL out. General: No acute distress. Heart: Regular rate and rhythm. No murmurs, rubs, gallops. Abdomen: Distended, but soft, nontender. Extremities: No significant edema. Chronic wounds noted. Laboratory Data: Sodium 141, potassium 4.1, chloride 111, CO2 22, BUN and creatinine 55/3.18, glucos e 140, albumin 2.7. Hemoglobin A1c 8.3. CPK level was added and is pending. Hemoglobin 9.5, hemato crit 27.8. UA appears to be contaminated sample. Current Medications: Reviewed. Impression: 1.Acute kidney on chronic kidney disease, possibly from volume depletion versus progression of under lying chronic kidney disease. 2.Syncopal events. 3.Anemia in the setting of chronic kidney disease. 4.Hypertension. 5.Diabetes mellitus. 6.Peripheral vascular disease. Plan: IV fluids, IV fluid rate was increased to 100 mL/h. Repeat urine assays have been ordered to evaluate for any evidence of urinary tract infection. Protein quantification also ordered. Please a void any NSAIDs or iodinated contrast. Renal dose all medications. There is no acute indication for renal placement therapy at this time. However, will need to follow progress of renal recovery. SE/MODL Voice ID: [id number] Report ID: [id number]
--- NOTE | 2021-10-21 20:54 | CON ---
Date of Consultation: 10/21/2021 Reason For Consultation: Chest pain. History Of Present Illness: 61-year-old male, history of diabetes, chronic kidney disease, acid refl ux, hypertension, stroke with right-sided paralysis, coronary artery disease, came with chest pain an d syncope. Chest pain is frequent, not related to exertion, pressure-like, no radiation. Past Medical History: As outlined above in the HPI. Medications: Refer reconciliation sheet for detailed list. Allergies: HALOPERIDOL AND NALOXONE. Family History: No premature coronary artery disease or cancer. Social History: Smokes a pack per day. Does not drink or use any drugs. Review of Systems: All systems reviewed and negative except mentioned in HPI. Physical Examination: Vital Signs: Reviewed. Head and Neck: Pupils are equal, reactive to light. Intact eye movements. No JVD. No cervical lym phadenopathy. Neck is supple. Thyroid is not enlarged. Lungs: Clear to auscultation bilaterally. No rhonchi, rales, or crackles. No accessory muscle use. Heart: Regular rate and rhythm. No extra sounds. Abdomen: Soft, nontender. Bowel sounds positive. No organomegaly. No masses or hernia. No rigidi ty or rebound. Extremities: No clubbing. No cyanosis. Intact pulses. Skin: No rash. No nodules. Neurologic: Alert, awake, oriented x3. No acute focal deficits appreciated. Lymph nodes: No cervical or axillary lymphadenopathy. Investigations: Troponins are negative x2. Creatinine is 3.18. Assessment And Recommendation: 1.Chest pain. The patient has multiple risk factors, including diabetes, peripheral vascular diseas e, question of history of coronary artery disease as well. However, the patient has elevated creatin ine. Troponin is negative. Please obtain an echocardiogram and Lexiscan nuclear stress test to furt her evaluate presence of ischemia and start baby aspirin if not already on. 2.History of cerebrovascular accident with right-sided paralysis, on Eliquis. I will recommend to a djust the dose from 5 mg twice a day to 2.5 mg twice a day due to renal dysfunction. SR/MODL Voice ID: [id number] Report ID: [id number]
[2021-10-21] MEDS: DIVALPROEX ER 250 MG TAB PO SCH ×2 (21:00→21:25)
[2021-10-21] MEDS ORDERED: TRAMADOL HCL 50 MG TAB ONE (21:28)
[2021-10-21] MEDS ORDERED: HYDRALAZINE HCL 25 MG TABLET ONE (21:28)
[2021-10-21] MEDS ORDERED: APIXABAN 5 MG TABLET ONE (21:37)
[2021-10-21] MEDS: TAMSULOSIN 0.4 MG SR CAP PO SCH (22:06)
[2021-10-21] MEDS ORDERED: TAMSULOSIN 0.4 MG SR CAP ONE (22:10)
[2021-10-22] MEDS ORDERED: LABETALOL HCL 100 MG/20 ML IV PRN (00:02)
[2021-10-22] MEDS ORDERED: LABETALOL HCL 100 MG/20 ML ONE (00:05)
[2021-10-22] MEDS ORDERED: HYDRALAZINE HCL 20 MG/ML VIAL IV ONE (02:26)
[2021-10-22] MEDS ORDERED: HYDRALAZINE HCL 20 MG/ML VIAL ONE (02:45)
[2021-10-22 04:18] LABS: Absolute Lymphocytes (CBC) 1.1 K/uL (0.7-4.9); Lymphocytes % 19.6 % (15.3-44.8); MPV 8.5 fL (7.6-11.3); RBC Red Blood Cell Count 3.25 M/uL (4.33-5.43)
[2021-10-22 04:47] LABS: Albumin 2.7 g/dL (3.4-5.0); Bilirubin Total 0.1 mg/dL (0.2-1.0); Potassium 4.1 mmol/L (3.5-5.1); Protein, Total 6.6 g/dL (6.4-8.2)
[2021-10-22] MEDS ORDERED: PANTOPRAZOLE 40MG TABLET PO ONE (05:44)
[2021-10-22] MEDS: MORPHINE 2 MG/ML SYR IV PRN ×3 (07:14→23:36)
[2021-10-22] MEDS: PANTOPRAZOLE 40MG TABLET PO SCH (07:14)
[2021-10-22] MEDS ORDERED: MORPHINE 2 MG/ML SYR ONE ×3 (07:18→23:40)
[2021-10-22] MEDS: INSULIN -REGULAR HUMAN 50 UNIT/0.5 ML ML SQ SCH ×4 (07:30→22:11)
[2021-10-22 07:44] LABS: Urine Appearance Clear (Clear); Urine Bilirubin Negative (Negative); Urine Blood 1+ (Negative); Urine Color Yellow (Yellow); Urine Glucose 1+ (Negative); Urine Protein 3+ (Negative); Urine Specific Gravity 1.025 (1.005-1.030); Urine Urobilinogen 0.2 mg/dL (0.2-1.0)
[2021-10-22 07:49] LABS: Urine Microscopic Reflex ORDER UMIC
[2021-10-22 07:58] LABS: Urine Bacteria <20 /HPF (NONE SEEN)
[2021-10-22 08:00] LABS: UR PROTEIN 398.9 mg/dL (<11.9); Urine Protein/Creatinine Ratio 5.05 ratio (<0.15)
[2021-10-22] MEDS: carvediloL 6.25 MG TAB PO SCH ×2 (08:00→17:00)
[2021-10-22] MEDS ORDERED: INSULIN -REGULAR HUMAN 50 UNIT/0.5 ML ML ONE ×3 (08:12→22:13)
[2021-10-22] MEDS ORDERED: carvediloL 6.25 MG TAB ONE ×2 (08:44→17:20)
[2021-10-22] MEDS ORDERED: AMLODIPINE 10 MG TAB ONE (08:44)
[2021-10-22] MEDS ORDERED: HYDRALAZINE HCL 25 MG TABLET ONE ×2 (08:44→22:11)
[2021-10-22] MEDS ORDERED: TRAMADOL HCL 50 MG TAB ONE ×2 (08:44→22:12)
[2021-10-22] MEDS ORDERED: TAMSULOSIN 0.4 MG SR CAP ONE ×2 (08:45→22:12)
[2021-10-22] MEDS: TRAMADOL HCL 50 MG TAB PO SCH ×2 (09:00→22:12)
[2021-10-22] MEDS: HYDRALAZINE HCL 25 MG TABLET PO SCH ×2 (09:00→22:12)
[2021-10-22] MEDS: ISOSORBIDE MONO SR 30 MG TAB PO SCH (09:00)
[2021-10-22] MEDS: TAMSULOSIN 0.4 MG SR CAP PO SCH ×2 (09:00→22:12)
[2021-10-22] MEDS: AMLODIPINE 10 MG TAB PO SCH (09:00)
[2021-10-22] MEDS: APIXABAN 2.5 MG TABLET PO SCH ×2 (09:00→22:12)
--- NOTE | 2021-10-22 10:07 | EKG ---
Test Date: 2021-10-20 Test Time: 19:19:02 Workers Compensation Adjuster: MEASUREMENT RESULTS: Intervals: Rate: 72 MI: 190 QRSD: 96 QT: 458 QTc: 501 [place]: P: 62 MI: 190 QRS: -29 T: 45 INTERPRETIVE STATEMENTS: Normal sinus rhythm Nonspecific T wave abnormality Prolonged QT Abnormal ECG Compared to ECG 12/03/2020 14:52:50 T-wave abnormality now present Prolonged QT interval now present Left-axis deviation no longer present Myocardial infarct finding no longer present Electronically Signed On 10-22-21 10:02:54 CDT by Tyler Gomez
[2021-10-22] MEDS ORDERED: REGADENOSON 0.4 MG/5 ML SYR IV ONE (11:05)
[2021-10-22] MEDS: Ringers Lactate 1,000 ML IV SCH (12:38)
[2021-10-22] MEDS ORDERED: Ringers Lactate 1,000 ML IV ONE (12:39)
--- NOTE | 2021-10-22 14:33 | PN ---
Date of Progress Note: 10/22/2021 Mr. Fry had been seen by Dr. Gardiner because of chest pain. He has a history of diabetes, chronic renal disease, hypertension, CVA, CAD, and gastroesophageal reflux disease. He continues to have luis manuel st pain that is sharp, left lateral, has nonstop since he has been in the hospital. Echocardiogram s o far is normal with an ejection fraction of 61%. Lexiscan is pending. We will see what that showed before making further decisions. Meanwhile, continue present regimen. MALCOM/PER Voice ID: [id number] Report ID: [id number]
--- NOTE | 2021-10-22 14:39 | P.CNS ---
Date of Consult: 10/22/21 Reason for Consult: LISBETH/ CKD Requesting Physician: Raimundo Lieberman Primary Care Provider: Dr. Lagos Chief Complaint: Syncope, LISBETH, chest pain History of Present Illness: 61-year-old male with history of diabetes mellitus type 2insulin-dependent, CKD, GERD, hypertension, hyperlipidemia, CAD, DVT on chronic anticoagulation presents emergency department for syncope, chest pain. Patient was evaluated in the emergency department found have worsening of his renal function initial troponin is negative chest x-ray noted for some atelectasis patient with anemia of chronic disease. ED provider wishes to admit for further evaluation and management of syncope, acute kidney injury, chest pain. 19:29 This 61 yrs old Male presents to ER via EMS with complaints of Syncopal en episode. 19:29 61 yo M with HTN, DM, CKD not on HD, presents to ED s/p syncopal episode. Pt reports en having intermittent left sided chest pressure for past 4 days. Was feeling lightheaded and nauseated and "woke up on floor". EMS was called by family. Pt denies F/C. Has intermittent SOB with LEES and orthopnea, no peripheral edema. Onset: The symptoms/episode began/occurred 4 day(s) ago. Severity of symptoms: At their worst the symptoms were moderate 6 day(s) ago Allergies haloperidol [From Haldol] Allergy (Verified 12/03/20 01:19) Anaphylaxis naloxone [From Narcan] Allergy (Verified 12/03/20 01:19) Anaphylaxis Home medications list reviewed: Yes Home Medications: Metoprolol Tartrate [Lopressor*] 1 tab PO BID 12/01/19 Hydralazine [Apresoline*] 25 mg PO BID #60 tab 12/06/20 Amitriptyline HCl 1 tab PO BEDTIME 10/21/21 Amlodipine [Norvasc*] 1 tab PO BEDTIME 10/21/21 Apixaban [Eliquis] 1 tab PO BID 10/21/21 Aspirin [Vazalore] 1 tab PO DAILY 10/21/21 Atorvastatin Calcium 1 tab PO BEDTIME 10/21/21 Benztropine Mesylate [Cogentin*] 1 tab PO DAILY 10/21/21 Bumetanide [Bumex*] 2 tab PO BID 10/21/21 Carvedilol [Coreg] 1 tab PO BID 10/21/21 Divalproex [Depakote Sprinkle*] 250 mg PO BEDTIME 10/21/21 Docusate Sodium [Colace] 1 tab PO BID 10/21/21 Duloxetine [Cymbalta *] 2 tab PO BEDTIME 10/21/21 Ergocalciferol (Vitamin D2) [Vitamin D2] 1 tab PO WMP 10/21/21 Escitalopram Oxalate 1.5 tab PO DAILY 10/21/21 Glipizide [Glipizide Xl] 1 tab PO BID 10/21/21 Hydralazine [Apresoline*] 1 tab PO Q8H 10/21/21 Hydrocodone Bit/Acetaminophen [Hydrocodon-Acetaminophn 10-325] 1 tab PO Q8H 10/21/21 Insulin Degludec [Tresiba] 20 units IJ BID 10/21/21 Isosorbide Mononitrate [Isosorbide Mononitrate ER] 3 tab PO DAILY 10/21/21 Mirtazapine 1 tab PO BEDTIME 10/21/21 Nitroglycerin 1 tab PO PRN PRN MDD 3 10/21/21 Pantoprazole [Protonix Tab*] 1 tab PO BID 10/21/21 Risperidone 1 tab PO DAILY 10/21/21 Semaglutide [Ozempic] 1 mg IJ WMP 10/21/21 Tamsulosin [Flomax*] 1 tab PO BID 10/21/21 Tramadol HCl [Ultram] 1 tab PO PRN PRN 10/21/21 clonazePAM [Clonazepam] 1 tab PO TID 10/21/21 - Past Medical/Surgical History Diabetic: Yes -: Diabetes mellitus type 2, insulin-dependent -: Hypertension -: Seizure disorder -: Peripheral vascular disease -: History of osteomyelitis -: Hyperlipidemia -: Bipolar disorder -: Tobacco abuse -: schizophrenia -: History of amputation to the left great toe -: History of blood clots -: CKD followed by Dr. Bolton -: Neck and back surgery -: Right eye removal -: Right knee surgery -: Bilateral wrist surgery due to suicide attempt -: Left great toe amputation Psychosocial/ Personal History: Patient is . He has 2 children. He lives at home. - Family History Brother Medical History: Hypertension Sister Medical History: Diabetes Father Medical History: Heart disease Notes: heart attack Mother Medical History: Diabetes - Social History Smoking Status: Current some day smoker Alcohol use: No CD- Drugs: No Caffeine use: Yes Place of Residence: Home Review of Systems 10-point ROS is otherwise unremarkable General: Weakness, Malaise Physical Examination Temp Pulse Resp BP Pulse Ox 98.0 F 72 18 153/87 H 99 10/22/21 08:00 10/22/21 12:00 10/22/21 12:00 10/22/21 12:00 10/22/21 12:00 General: In no apparent distress, Oriented x3, Cooperative HEENT: Atraumatic Neck: Supple Respiratory: Clear to auscultation bilaterally Cardiovascular: No edema, Regular rate/rhythm Gastrointestinal: Soft and benign, Non-distended Musculoskeletal: No clubbing, No contractures Integumentary: No rashes, No cyanosis Neurological: Normal speech Blood work reviewed in the chart. Imagings Data: EXAM DESCRIPTION: US - Renal Ultrasound-Complete - 10/20/2021 10:39 pm CLINICAL HISTORY: Worsening renal function COMPARISON: 2020 FINDINGS: The right kidney measures 11 cm with a normal echotexture. The left kidney measures 11 cm with a normal echotexture. Hydronephrosis is not seen. No gross abnormality of bladder IMPRESSION: Unremarkable renal ultrasound. EXAM DESCRIPTION: RAD - Chest Single View - 10/20/2021 6:32 pm CLINICAL HISTORY: CHEST PAIN COMPARISON: Chest Single View dated 12/02/2020; Chest Single View dated 05/01/2020; Chest Single View dated 09/04/2019; Chest Single View dated 03/28/2019 FINDINGS: Lines: None. Lungs: Mild elevation of the right hemidiaphragm and likely underlying atelectas is. Pleural: No significant pleural effusions or pneumothorax. Cardiac: The heart size is within normal limits. Bones: No acute fractures. Other: IMPRESSION: Probable mild right basilar atelectasis. No other acute process identified. Conclusions/Impression: LISBETH likely due to hypovolemia CKD IV with proteinuria -No NSAIDs -Agree with gentle IVF HTN with CKD/ CHF -Continue Amlodipine Diastolic CHF, chronic -Continue Coreg DM II with CKD, Polyneuropathy -RISS Moderate malnutrition -Encourage nutrition Anemia in chronic illness -Monitor H&H -Retacrit PRN CKD MBD -Start Vitamin D BPH with LUTS -Continue Flomax Thank you kindly for the consultation
--- NOTE | 2021-10-22 14:51 | ECHO ---
HEIGHT: 6 ft 0 in WEIGHT: 230 lb 0 oz DATE OF STUDY: 10/22/[address]: Manny Almanza NP 2-DIMENSIONAL: YES M.MODE: YES DOPPLER: YES COLOR FLOW: YES TDS: PORTABLE: YES DEFINITY: BUBBLE STUDY: DIAGNOSIS: SYNCOPE/ CHEST PAIN CARDIAC HISTORY: CATHERIZATION: NO SURGERY: NO PROSTHETIC VALVE: NO PACEMAKER: NO MEASUREMENTS (cm) DIASTOLIC (NORMALS) SYSTOLIC (NORMALS) IVSd 1.4 (0.6-1.2) LA Diam 4.3 (1.9-4.0) LVEF 61% LVIDd 3.5 (3.5-5.7) LVIDs 2.4 (2.0-3.5) %FS 32% LVPWd 1.4 (0.6-1.2) Ao Diam 3.0 (2.0-3.7) 2 DIMENSIONAL ASSESSMENT: RIGHT ATRIUM: NORMAL LEFT ATRIUM: ENLARGED RIGHT VENTRICLE: NORAML LEFT VENTRICLE: LEFT VENTRICULAR HYPERTROPHY TRICUSPID VALVE: NORMAL MITRAL VALVE: NORMAL PULMONIC VALVE: NORMAL AORTIC VALVE: NORMAL PERICARDIAL EFFUSION: TRACE AORTIC ROOT: NORMAL LEFT VENTRICULAR WALL MOTION: NORMAL DOPPLER/COLOR FLOW: MILD MITRAL REGURGITATION. COMMENTS: NORMAL LEFT VENTRICULAR EJECTION FRACTION 55-60%. TRACE PERICARDIAL EFFUSION. LEFT ATRIAL ENLARGEMENT. TECHNOLOGIST: YAYA CHRISTIANSEN
[2021-10-22] MEDS: DIVALPROEX ER 250 MG TAB PO SCH (21:00)
[2021-10-22] MEDS: ATORVASTATIN 40 MG TAB PO SCH (22:12)
[2021-10-23 01:26] VITALS: O2SAT 100
[2021-10-23 03:48] LABS: Absolute Lymphocytes (CBC) 1.2 K/uL (0.7-4.9); Hematocrit 30.7 % (39.6-49.0); Lymphocytes % 20.8 % (15.3-44.8); MPV 8.7 fL (7.6-11.3); RBC Red Blood Cell Count 3.47 M/uL (4.33-5.43)
[2021-10-23 04:03] LABS: Albumin 3.2 g/dL (3.4-5.0); Bilirubin Total 0.2 mg/dL (0.2-1.0); Potassium 5.1 mmol/L (3.5-5.1); Protein, Total 7.3 g/dL (6.4-8.2)
[2021-10-23] MEDS ORDERED: MORPHINE 2 MG/ML SYR ONE (05:20)
[2021-10-23] MEDS ORDERED: PANTOPRAZOLE 40MG TABLET PO ONE (05:21)
[2021-10-23] MEDS: MORPHINE 2 MG/ML SYR IV PRN (05:25)
[2021-10-23] MEDS: PANTOPRAZOLE 40MG TABLET PO SCH (05:26)
[2021-10-23] MEDS: Ringers Lactate 1,000 ML IV SCH (05:51)
[2021-10-23] MEDS: INSULIN -REGULAR HUMAN 50 UNIT/0.5 ML ML SQ SCH (07:30)
[2021-10-23] MEDS: carvediloL 6.25 MG TAB PO SCH (07:30)
[2021-10-23] MEDS ORDERED: INSULIN -REGULAR HUMAN 50 UNIT/0.5 ML ML ONE (07:33)
[2021-10-23] MEDS ORDERED: carvediloL 6.25 MG TAB ONE (07:34)
[2021-10-23 07:43] VITALS: TEMP 97.3
--- NOTE | 2021-10-23 08:44 | P.PN ---
Date of Service: 10/22/21 Subjective Subjective: Chest pain will be done as an outpatient. Physical Examination - Vital Signs Reviewed - Physical Exam General: Alert, Oriented x3 HEENT: Atraumatic, Normocephalic Neck: Supple Respiratory: Normal air movement Cardiovascular: Regular rate/rhythm, Normal S1 S2 Gastrointestinal: Soft and benign Musculoskeletal: No swelling Neurological: Normal speech, Normal strength at 5/5 x4 extr Assessment and Plan - Plan Assessment: Chest pain/syncope Acute worsening of CKD 3 Diabetes type 2insulin-dependent with hyperglycemia History of DVT on chronic anticoagulation therapy Hypertension Hyperlipidemia CAD Depression/anxiety/schizoaffective disorder Plan: -High-sensitivity troponin -Cardiology consultation -Echocardiogram and stress test per cardiology recommendation as an outpatient -Repeat EKG -Work-up for other etiologies of cardiac chest pain if troponins remain negative -Lipid profile -[employer] regarding modifying risk for cardiac disease
[2021-10-23] MEDS: HYDRALAZINE HCL 25 MG TABLET PO SCH (08:48)
[2021-10-23] MEDS: TAMSULOSIN 0.4 MG SR CAP PO SCH (08:49)
[2021-10-23] MEDS: APIXABAN 2.5 MG TABLET PO SCH (08:49)
[2021-10-23] MEDS: AMLODIPINE 10 MG TAB PO SCH (08:49)
[2021-10-23] MEDS: ISOSORBIDE MONO SR 30 MG TAB PO SCH (08:49)
[2021-10-23 08:50] VITALS: BP 164/75
[2021-10-23] MEDS ORDERED: HYDRALAZINE HCL 25 MG TABLET ONE (08:50)
[2021-10-23] MEDS: TRAMADOL HCL 50 MG TAB PO SCH (08:50)
[2021-10-23] MEDS ORDERED: AMLODIPINE 10 MG TAB ONE (08:50)
[2021-10-23] MEDS ORDERED: APIXABAN 5 MG TABLET ONE (08:51)
[2021-10-23] MEDS ORDERED: TAMSULOSIN 0.4 MG SR CAP ONE (08:51)
[2021-10-23] MEDS ORDERED: NACHLORIDE 0.45% 1,000 ML IV ONE (08:51)
[2021-10-23] MEDS ORDERED: TRAMADOL HCL 50 MG TAB ONE (08:51)
[2021-10-23] MEDS ORDERED: NACHLORIDE 0.45% 1,000 ML IV SCH (09:00)
--- NOTE | 2021-10-23 21:48 | PN ---
He was admitted with atypical chest pain and renal failure. Echocardiogram showed a normal ejection fraction at 61% without any wall motion abnormalities. His chest pain is very pleuritic. Yesterday, he was unable to look to perform a stress test because of his body habitus and paralysis, and the st ress test was canceled. I am going to avoid doing a heart catheterization on him because of his florencio l failure. I would like to avoid iodine contrast if at all possible. I think he is pain free now. ID has been ruled out. EKG is nonspecific. Echo is normal. I think he should be treated with low-d ose beta-yanely, nitroglycerin as needed. We will perform a heart catheterization only if it is abs olutely necessary. MALCOM/PER Voice ID: [id number] Report ID: [id number]
== END 2021-10-23 09:51 | disposition home or self-care (01) | DRG 683 ==
LOC: ER 17:11 → ERHOLD 20:13
PROVIDERS: ADMIT Internal Medicine Nephrology; ATTEND Hospitalist
DX: N17.9 Acute kidney failure, unspecified (principal); I69.351 Hemiplegia and hemiparesis following cerebral infarction affecting right dominant side; J98.11 Atelectasis; I13.0 Hypertensive heart and chronic kidney disease with heart failure and stage 1 through stage 4 chronic kidney disease, or unspecified chronic kidney disease; I50.32 Chronic diastolic (congestive) heart failure; E44.0 Moderate protein-calorie malnutrition; R07.89 Other chest pain; N18.4 Chronic kidney disease, stage 4 (severe); E11.22 Type 2 diabetes mellitus with diabetic chronic kidney disease; I12.9 Hypertensive chronic kidney disease with stage 1 through stage 4 chronic kidney disease, or unspecified chronic kidney disease; G40.909 Epilepsy, unspecified, not intractable, without status epilepticus; E11.65 Type 2 diabetes mellitus with hyperglycemia; R55 Syncope and collapse; D63.1 Anemia in chronic kidney disease; E86.1 Hypovolemia; E11.42 Type 2 diabetes mellitus with diabetic polyneuropathy; N40.1 Benign prostatic hyperplasia with lower urinary tract symptoms; E11.621 Type 2 diabetes mellitus with foot ulcer; L97.519 Non-pressure chronic ulcer of other part of right foot with unspecified severity; L97.529 Non-pressure chronic ulcer of other part of left foot with unspecified severity; K21.9 Gastro-esophageal reflux disease without esophagitis; I25.10 Atherosclerotic heart disease of native coronary artery without angina pectoris; E78.5 Hyperlipidemia, unspecified; I73.9 Peripheral vascular disease, unspecified; F31.9 Bipolar disorder, unspecified; F41.8 Other specified anxiety disorders; F90.9 Attention-deficit hyperactivity disorder, unspecified type; F20.9 Schizophrenia, unspecified; F17.200 Nicotine dependence, unspecified, uncomplicated; Z86.718 Personal history of other venous thrombosis and embolism; Z79.01 Long term (current) use of anticoagulants; Z89.412 Acquired absence of left great toe; Z20.822 Contact with and (suspected) exposure to COVID-19; Z68.31 Body mass index [BMI] 31.0-31.9, adult
CPT/HCPCS: 36415; 70450; 71045; 76770; 80048; 80053; 81003; 81015; 82550; 82570; 82947; 83036; 84156; 84484; 85025; 87086; 87088; 93005; 93306; 96374; 96375; 99251; 99285; C9113; J0360; J1815; J2270; J2405; J2785; J7030; J7120; U0003

== ENCOUNTER 2021-12-01 12:53 | Observation (INO) | payer OTHER ==
--- OUTSIDE RECORDS SUMMARY | 2021-12-01 12:57 | XMS REPORT | Clinical Summary ---
:1960 Author Organization [facility] MD [facility] Address [address] [place] [address] Care Team Providers Name Role Phone Unavailable [...] Due Date Last Done Comments COVID-19 Vaccination (#1) 1966 Results Not on fileafter 12/01/2020 Insurance Payer Benefit Plan / Subscriber ID Effective Phone Address T ype Group Dates MEDICARE MEDICARE PART A [id number] 2004-Pres [phone] [facility] Medicare AND B ent [id number] [place] [address] [place]ID [place] [id number] 2018-Pres [address] Medicaid TRADITIONAL TRADITIONAL ent [id number] [place] [address] Advance Directives Code Status Date Activated Date Inactivated Comments Full Code 12/19/2018 10:01 AM 12/25/2018 1:04 PM
--- OUTSIDE RECORDS SUMMARY | 2021-12-01 12:59 | XMS REPORT | Continuity of Care Document ---
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 ommon Potassium Potassium Dietrich [facility] Divalproex Divalproex Yes Sylvain 1 tablet Common Sodium ER Sodium ER Dietrich [facility] BusPIRone BusPIRone Yes Sylvain 1 tablet Common HCl HCl Dietrich [facility] Pen Indiahoma Pen Indiahoma Yes Sylvain N/s Common Dietrich [facility] Atorvastati Atorvastati Yes Sylvain 1 tablet Common n Calcium n Calcium Dietrich [facility] Advair Advair Yes Sylvain 1 puff Common Diskus Diskus Dietrich [facility] True Metrix True Metrix Yes Sylvain USE TO Common Blood Blood Dietrich TEST BLOOD Spirit Glucose Glucose SUGAR 1-2 - CH I Test Test TIMES St EVERY DAY [facility] NovoLIN NovoLIN Yes Sylvain INJECT Commo n 70/30 70/30 Dietrich SUBQUTANEO Spirit FlexPen FlexPen USLY 65 - [facility] UNITS [facility] TWICE kes DAILY [facility] UltiCare UltiCare Yes Sylvain USE ONE Co mmon Micro Pen Micro Pen Dietrich NEEDLE Sp kwame Indiahoma Indiahoma THREE - [facility]I TIMES St DAILY WITH [facility] NOVOLIN FLEXPEN Immunizations Ordered Filled Immunization Date Status Comments [facility] e Immunization Name Name SARS-COV-2 COVID-19 2021-04-20 Completed Unive rsity of MODERNA VACCINE 00:00:00 [facility] SARS-COV-2 COVID-19 2021-04-20 Completed Unive rsity of MODERNA VACCINE 00:00:00 [facility] SARS-COV-2 COVID-19 2020-09-18 Completed Unive rsity of MODERNA VACCINE 00:00:00 [facility] SARS-COV-2 COVID-19 2020-09-18 Completed Unive rsity of MODERNA VACCINE 00:00:00 [facility] SARS-COV-2 COVID-19 2020-08-21 Completed Unive rsity of MODERNA VACCINE 00:00:00 [facility] SARS-COV-2 COVID-19 2020-08-21 Completed Unive rsity of MODERNA VACCINE 00:00:00 [facility] Pneumococcal 13 2019-07-12 Completed Universit y of Conjugate, PCV13 00:00:00 [facility] dical (Prevnar 13) Branch Pneumococcal 13 2019-07-12 Completed Universit y of Conjugate, PCV13 00:00:00 [facility] dical (Prevnar 13) Branch Pneumococcal 13 2019-05-25 Completed Universit y of Conjugate, PCV13 00:00:00 [facility] dical (Prevnar 13) Branch Pneumococcal 13 2019-05-25 Completed Universit y of Conjugate, PCV13 00:00:00 [facility] dical (Prevnar 13) Branch Vital Signs Vital Name Observation Time Observation Value Comments Source Systolic blood 2021-11-19 19:09:00 174 mm[Hg] [facility]iver [facility]ity [facility] Diastolic blood 2021-11-19 19:09:00 91 mm[Hg] Unive rsity [facility] Heart rate 2021-11-19 19:00:00 80 /min [facility] Body weight 2021-11-19 19:00:00 104.962 kg [facility] BMI 2021-11-19 19:00:00 32.27 kg/m2 [facility] Oxygen saturation 2021-11-19 19:00:00 97 /min [facility] in Arterial blood Medical Br anch by Pulse oximetry Procedures This patient has no known procedures. Plan of Care Planned Activity Planned Date Details Comments Source Future Scheduled 2021-11-30 COVID-19 Vaccination Uni [facility] Test 06:12:57 (#1) [code = COVID-19 [facility] Vaccination (#1)] Center Future Scheduled 2021-03-09 IMM Influenza [facility] 00:00:00 Seasonal Mar to August (>/= 19 yrs) [code = IMM Influenza Seasonal Mar to August (>/= 19 yrs)] Future Scheduled 2011 Screening for [facility] 00:00:00 malignant neoplasm of colon (procedure) [code = 853259865] Future Scheduled 1973 COVID-19 Vaccine (1) [facility] Test 00:00:00 [code = COVID-19 Vaccine (1)] Encounters Start End Encounter Admission Attending Care Care Encounter Source Date/Time Date/Time Type Type Clinicians Facility Department ID 2021-10-22 Outpatient Dietrich, [facility] Common 14:35:01 Sylvain [id number] [facility] 2021-07-05 Out[place] 3 [place] [id number] ENCPL 10:37:17 Violetta 18 2021-07-05 Outpatient 3 GAGAN Anton OTH [id number] ENCPL 10:35:19 Violetta 14 2021-07-05 Outpatient 3 [id number] ENCPL REF ENCPL 10:33:41 0909 2021-07-04 Outpatient Dietrich, [facility] [id number] Common 12:23:16 Sylvain 20026 [facility] 2021-07-04 Outpatient Dietrich, [facility] [id number] Common 11:58:41 Sylvain [id number] [facility] 2021-07-04 Outpatient Dietrich, [facility] [id number] Common 11:58:34 Sylvain [id number] [facility] 2021-07-04 Outpatient Dietrich, [facility] Common 11:54:24 Sylvain [id number] [facility] 2021-07-04 Outpatient Dietrich, [facility] Common 11:24:48 Sylvain [id number] [facility] 2021-07-04 Outpatient Dietrich, [facility] Common 11:24:36 Sylvain [id number] [facility] 2021-03-20 Outpatient [id number]-C Memoria 10:39:01 [id number] 7D-4242-B44 W6C-0355- B l -F49O-29N D-04JGSUI3M 44D-77CAFE Raul IKPC9GCI8 AF2 A1DAF2 2021-03-13 Outpatient [id number] [id number] Memoria 08:49:42 6166-4D51 66-4E32-081 166-4D51- 8 l -8885-75E 5-40A9A2H6T 885-75E2A2 Raul 2I1D3MT54 E94 F6FE94 2021-02-27 Outpatient [id number] 4DEB 5C74-0 Memoria 16:26:17 5T90-07PX 34-41DF-A62 Z00-82GO- A l -I38C-0UM B-7UY75ROVN 62B-5CF45F Raul 72DJOJV75 E49 CCBE49 2021-02-13 Outpatient [id number] [id number]-F Memoria 13:34:27 FDA5-4DF8 A5-9XB1-DI1 DA5-4DF8- A l -XY7F-95M F-71M02R9E1 C8J-18V19S Raul 93M1S0O9F C9E 9A6C9E 2021-02-05 Outpatient [id number] Memoria 13:02:31 45L0-2TE0 E0-4KM2-8YE 4X2-6WI0- 8 l -6IO9-4M7 7-4C7K2FY2X BD7-8F3D5B Raul O0IT5U2V8 9A8 B3F9A8 2021-01-31 Outpatient [id number] B3AE FD79-7 Memoria 14:21:44 71EF-4A97 EF-3G29-U7B 1EF-4A97- A l -F0K3-B26 2-D8376J31S 3V6-F0208S Raul 93F26RLOK ABB 67DABB 2021-01-29 Outpatient [id number] 13FC-E Memoria 07:59:59 EAF3-4402 F3-4402-989 AF3-4402- 9 l -9894-E93 4-X935M834V 894-E932E0 Raul 7U112I24F 73E 11E73E 2021-01-26 [facility] [id number] 8D89 309C-0 Memoria 11:30:20 42B8-5L3U D3-0Y4V-Q32 7H1-9P3D- A l -K690-7D0 0-0E2O41P70 760-9F0F01 Raul L53U93K25 A92 B18A92 2021-01-18 [facility] [id number] [id number] Memoria 19:23:47 8045-6797 91-4470-411 455-4896- 9 l -904F-E96 F-W08VBE529 04F-E96FEA Raul QWL627FO9 FF0 071FF0 2021-01-17 Outpatient [id number] B81D 33F9-5 Memoria 15:43:09 12L9-5073 B4-4358-860 5W4-3554- 8 l -8608-A37 8-B17A09N2O 608-A37F06 Raul L78X6B17V 43A F6C43A 2021-01-11 Outpatient [id number]-D Memoria 16:20:54 ET66-0763 42-4648-8F1 P54-7860- 8 l -1H3A-HB4 A-UB9D715UI J5A-LO5L90 Raul O002XHH5V A7A 0AAA7A 2020-07-15 Inpatient EM Annheswar HCACL MAS [id number] [facility] 14:49:00 an, [address] [facility] 2020-07-13 Inpatient HCACL MARIA D [id number] [facility] 14:41:00 [id number] [facility] 2021-11-19 2021-11-19 [facility] [id number] [id number] [facility] 14:00:00 15:01:22 Visit [employer] [id number] william white [facility] 4.2.7.2.686 Gwyn as RIANA?BLEA [phone] [address] 2021-11-19 2021-11-19 Outpatient R AJ [facility] [id number] [facility] 14:00:00 [facility]01[facility] 2021-01-17 2021-01-17 Telephone [place] [id number] 00:00:00 00:00:00 Marylu Maldonado [id number] [place] 4.2.7.2.686 Professio [phone] critical access hospital 044 [facility] 2021-01-10 2021-01-10 [facility] [id number] [id number] 00:00:00 00:00:00 Marylu Maldonado [id number] [place] 4.2.7.2.686 Professio [phone] critical access hospital 231 [facility] 2020-12-28 2020-12-28 Office [facility] [id number] [id number] 13:00:56 15:02:32 Visit Marylu Maldonado [id number] [place] 4.2.7.2.686 [facility] [phone] [address] 2020-04-04 2020-04-04 Outpatient STLMLC STLMLC [id number] Common 00:00:00 00:00:00 [facility] 2020-04-03 2020-04-03 Outpatient STLMLC STLMLC [id number] Common 00:00:00 00:00:00 [facility] 2020-04-03 2020-04-03 Outpatient STLMLC STLMLC [id number] Common 00:00:00 00:00:00 [facility] 2020-03-21 2020-03-21 Outpatient STLMLC STLMLC [id number] Common 00:00:00 00:00:00 [facility] 2020-03-08 2020-03-08 Outpatient STLMLC STLMLC [id number] Common 00:00:00 00:00:00 [facility] 2020-03-03 2020-03-03 Outpatient STLMLC STLMLC [id number] Common 00:00:00 00:00:00 [facility] 2020-03-01 2020-03-01 Outpatient STLMLC STLMLC [id number] Common 00:00:00 00:00:00 [facility] 2020-02-22 2020-02-22 Outpatient STLMLC STLMLC [id number] Common 00:00:00 00:00:00 [facility] 2020-01-28 2020-01-28 [facility] [id number] Common 08:27:00 08:27:[address] [facility] 2020-01-26 2020-01-26 [facility] [id number] Common 11:04:00 11:04:00 [place] [address] [facility] 2020-01-05 2020-01-05 [facility] [id number] Common 16:30:00 16:30:00 [place] [address] [facility] 2020-01-03 2020-01-03 [facility] [id number] Common 10:59:00 10:59:00 [place] [address] [facility] 2019-11-24 2019-11-24 [facility] [id number] Common 11:16:00 11:16:[address] [facility] 2019-11-24 2019-11-24 [facility] [id number] Common 11:15:00 11:15:00 [place] [address] [facility] 2019-11-11 2019-11-11 [facility] [id number] Common 09:41:00 09:41:[address] [facility] 2019-11-10 2019-11-10 [facility] [id number] Common 10:30:00 10:30:[address] [facility] 2019-03-27 2019-03-27 Emergency [facility] [id number] [place] 11:00:00 11:00:[address] [facility] 2019-03-27 2019-03-27 Emergency [facility] [id number] [place] 10:55:25 10:55:25 Health 2019-03-27 2019-03-27 Emergency [facility] [id number] [place] 08:02:06 08:02:[address] [facility] 2019-03-27 2019-03-27 Emergency [facility] [id number] [place] 00:00:00 00:00:00 Health Results Test Description Test Time Test Comments Results Result Comments Source GLUBED 2020-07-17 17:26:00 Test Item Value Reference Range Interpretation Comme nts GLUBED (test code = GLUBED) 246 MG/DL 70-110 H Performed by certified preforming machine operator at [facility] [id number] 13:12:00 Test Item Value Reference Range Interpretation Comments GLUBED (test code = 233 MG/DL 70-110 H Performe d by certified GLUBED) preforming machine operator at [facility] [id number] 08:24:00 Test Item Value Reference Range Interpretation Comments GLUBED (test code = 157 MG/DL 70-110 H Performe d by certified GLUBED) preforming machine operator at [facility] [id number] 06:46:00 Test Item Value Reference Range Interpretation Comments GLUBED (test code = 159 MG/DL 70-110 H Performe d by certified GLUBED) preforming machine operator at [facility] [id number] 20:20:00 Test Item Value Reference Range Interpretation Comments GLUBED (test code = 174 MG/DL 70-110 H Performe d by certified GLUBED) preforming machine operator at [facility] [id number] 17:34:00 Test Item Value Reference Range Interpretation Comments GLUBED (test code = 101 MG/DL 70-110 N Performe d by certified GLUBED) preforming machine operator at [facility] [id number] 12:09:00 Test Item Value Reference Range Interpretation Comments GLUBED (test code = 176 MG/DL 70-110 H Performe d by certified GLUBED) preforming machine operator at [facility] BASIC METABOLIC [id number] 11:39:00 Test Item Value Reference Range Interpretation [...] 8.3 mg/dL 8.0-10.5 N CA) CBC W/AUTO [id number] 11:24:00 Test Item Value Reference Range Interpretation [...] DIFF REQUIRED (test code NO = MDIFF) [id number] 06:50:00 Test Item Value Reference Range Interpretation Comments GLUBED (test code = 192 MG/DL 70-110 H Performe d by certified GLUBED) preforming machine operator at [facility] [id number] 19:48:00 Test Item Value Reference Range Interpretation Comments GLUBED (test code = 187 MG/DL 70-110 H Performe d by certified GLUBED) preforming machine operator at [facility] [id number] 17:18:00 Test Item Value Reference Range Interpretation Comments GLUBED (test code = 128 MG/DL 70-110 H Performe d by certified GLUBED) preforming machine operator at [facility] C REACTIVE [id number] 13:50:00 Test Item Value Reference Range Interpretation Comments C REACTIVE PROTEIN (test code = CRP) 8.0 mg/L <10.0 N BASIC METABOLIC [id number] 13:50:00 Test Item Value Reference Range Interpretation [...] 8.7 mg/dL 8.0-10.5 N CA) CBC W/AUTO [id number] 13:19:00 Test Item Value Reference Range Interpretation [...] REQUIRED (test code = MDIFF) CBC W/AUTO [id number] 13:19:00 Test Item Value Reference Range Interpretation [...] DIFF REQUIRED (test code NO = MDIFF) [id number] 12:05:00 Test Item Value Reference Range Interpretation Comments GLUBED (test code = 209 MG/DL 70-110 H Performe d by certified GLUBED) preforming machine operator at [facility] [id number] 08:16:00 Test Item Value Reference Range Interpretation Comments GLUBED (test code = 208 MG/DL 70-110 H Performe d by certified GLUBED) preforming machine operator at [facility] [id number] 20:50:00 Test Item Value Reference Range Interpretation Comments GLUBED (test code = 232 MG/DL 70-110 H Performe d by certified GLUBED) preforming machine operator at [facility] [id number] 18:45:00 Test Item Value Reference Range Interpretation Comments GLUBED (test code = 146 MG/DL 70-110 H Performe d by certified GLUBED) preforming machine operator at [facility] - DUP LE ART [id number] 17:18:00 [facility] GAIL MOORE HAVENName: MARCOS RAMOS : 1960 Sex: M Name: MARCOS RAMOS [facility] Gail Martinez : 1960 Age/S: 60 / M [address] [place] [address] Blvd Unit #: [id number] Loc: [place] [address] Phys: Mark Alexander CAREER AGENT Acct: [id number] Dis Date: Status: ADM IN PHONE #: [phone] Exam Date: 07/14/2020 1655 FAX #: [phone] Reason: bilat foot uclers EXAMS: CPT CODE: [id number] [facility] ABHISHEK [address]5719 Clinical Indication: Bilateral foot ulcers; Comparison: None TECHNIQUE: Bilateral lower extremity arterial Doppler evaluation without ABIs was performed with arce scale, color Doppler, and spectral Doppler evaluation. 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 FINDINGS: RIGHT LOWER EXTREMITY: FACTORY MACHINE COMPUTER OPERATOR: Patent, triphasic waveform. SFA: Patent, triphasic waveform. Popliteal: Patent, triphasic waveform. Posterior tibial: Patent, triphasic waveform. Dorsalis pedis: Patent, triphasic waveform. LEFT LOWER EXTREMITY: FACTORY MACHINE COMPUTER OPERATOR: Patent, triphasic waveform. SFA: Patent, biphasic waveform. Popliteal: Patent, triphasic waveform. Posterior tibial: Patent, biphasic waveform. Dorsalis pedis: Patent, triphasic waveform. IMPRESSION: Patent bilateral lower extremity arterial vasculature with multiphasic waveforms. SL: [id number] at 1718 Reported and signed by: Keyan Marashi, M.D. PAGE 1 Signed Report (CONTINUED) Name: MARCOS RAMOS [facility] Gail Martinez : 1960 Age/S: 60 / M [address] [facility] Unit #:[id number] Loc: [place] [address] Phys: Mark Alexander CAREER AGENT Acct: [id number] Dis Date: Status: ADM IN PHONE #: [phone] Exam Date: 07/14/20201654 FAX #: [phone] Reason: bilat foot uclers EXAMS: CPT CODE: [id number] [facility] ABHISHEK 18576 <Continued> CC: Judah Campuzano MD; Mark Alexander NP Technologist: Sherin Hudson RDMS(AB) Trnscb Date/Time: 07/14/2020 (1717) [email or web address].[email or web address].KM28 Orig Print D/T: S: 07/14/2020 (172) Probe: PAGE 2 Signed Report- DUP VEIN [id number] 17:03:00 [facility] GAIL MOORE HAVENName: MARCOS RAMOS : 1960 Sex: M Name: MARCOS RAMOS [facility] Gail Martinez : 1960 Age/S: 60 / M [address] [facility] Unit #: [id number] Loc: [place] [address] Phys: Jocelynn MehtaC Acct: [id number] Dis Date: Status: ADM IN PHONE #: [phone] Exam Date: 07/14/20201654 FAX #: [phone] Reason: hx of DVT EXAMS: CPT CODE: [id number] [facility] ABHISHEK 61858 Clinical Indication: History of DVT, bilateral lower [...] Porfirio at 1702 hours on 07/14/2020. SL: [id number] at 1703 Reported and signed by: Kuldeep Kuo M.D. CC: Jocelynn Mehta; Judah Campuzano MD Technologist: MATHEUS Correia(AB) Trnscb Date/Time: 07/14/2020 (1702) t.SDR.KM28 Orig Print D/T: S: 07/14/2020 (170) Probe: PAGE 1 Signed [id number] 16:30:00 Test Item Value Reference Range Interpretation [...] APPROPRIATECLIN ICAL EUALUATIONS. - CTA CHEST FOR [id number] 16:24:00 [facility] GAIL MOORE HAVENName: MARCOS RAMOS : 1960 Sex: M Name: MARCOS RAMOS [facility] Ross : 1960 Age/S: 60 / M [address] [place] [address] Blvd Unit #: [id number] Loc: [place] [address] Phys: Jocelynn Mehta Acct: [id number] Dis Date: Status: ADM IN PHONE #: [phone] Exam Date: 07/14/2020 1553 FAX #: [phone] Reason: rule out PE, Hx of PE EXAMS: CPT CODE: [id number] [place] [address] Clinical Indication: History of PE. Shortness of [...] 4. Evidence of prior granulomatous process. SL: [id number] PAGE 1 Signed Report (CONTINUED) Name: MARCOS RAMOS [facility] : 1960 Age/S: 60 / M [address] [place] [address] Blvd Unit #: [id number] Loc: [place] [address] Phys: Jocelynn Mehta Acct: [id number] Dis Date: Status: ADM IN PHONE #: [phone] Exam Date: 07/14/2020 1553 FAX #: [phone] Reason: rule out PE, Hx of PE EXAMS: CPT CODE: [id number] [place] [address] <Continued> at 1624 Reported and signed by: Kuldeep Kuo M.D. CC: Jocelynn Mehta; Judah Campuzano MD Wilbert hnologist:RT Schuyler(R) CTDI: DLP: Trnscb Date/Time: 07/14/2020 (1623) t.SDR.KM28 Orig Print D/T: S: 07/14/2020 (523) PAGE 2 Signed [id number] 15:20:00 Test Item Value Reference Range Interpretation Comments GLUBED (test code = 177 MG/DL 70-110 H Performe d by certified GLUBED) preforming machine operator at [facility] SED RATE [id number] 11:49:00 Test Item Value Reference Range Interpretation Comments SED RATE WESTERGREN (test code = 39 mm/hr 0-15 H SEDW) BASIC METABOLIC [id number] 11:18:00 Test Item Value Reference Range Interpretation [...] code = 8.6 mg/dL 8.0-10.5 N CA) [id number] 11:18:00 Test Item Value Reference Range Interpretation Comments MAGNESIUM (test code = MAG) 1.49 mg/dL 1.80-2.40 L [id number] 11:18:00 Test Item Value Reference Range Interpretation [...] may masoud y by method. CBC W/AUTO [id number] 11:02:00 Test Item Value Reference Range Interpretation [...] (test code NO = MDIFF) CBC W/AUTO [id number] 11:01:00 Test Item Value Reference Range Interpretation [...] MANUAL DIFF REQUIRED (test code = MDIFF) [id number] 10:08:00 Test Item Value Reference Range Interpretation Comments GLUBED (test code = 165 MG/DL 70-110 H Performe d by certified GLUBED) preforming machine operator at [facility] LACTIC ACID 2ND [id number] 21:31:00 Test Item Value Reference Range Interpretation Comments LACTIC ACID 2ND REPEAT (test code 1.9 mmol/L 0.4-1.9 N = LACT2) [id number] 21:04:00 Test Item Value Reference Range Interpretation Comments GLUBED (test code = 224 MG/DL 70-110 H Performe d by certified GLUBED) preforming machine operator at [facility] [id number] 19:23:00 Test Item Value Reference Range Interpretation [...] HGBA1C%) 11.2 %A1C 4.8-6.0 H LACTIC ACID [id number] 19:17:00 Test Item Value Reference Range Interpretation Comments LACTIC ACID REPEAT (test code = 2.3 mmol/l 0.4-1.9 H LACTR) UA RFLX MICR CULT IF [id number] 17:25:00 Test Item Value Reference Range Interpretation [...] culture: RiskForSepsis-no oth srcSpecimen Description: CLEAN CATCHLIPOPROTEIN [id number] 17:03:00 Test Item Value Reference Range Interpretation Comments LIPOPROTEIN LDL 165.8 mg/dL 0-100 H <100 OPT [id number] (test code = LDL) NEAR OPTI MAL/ABOVE [id number] 89 HIGH>NW=924 VE RY HIGH*Guidelines provided by the National Choles terol EducationProgra m Adult Treatment Panel III BASIC METABOLIC [id number] 16:44:00 Test Item Value Reference Range Interpretation [...] 8.8 mg/dL 8.0-10.5 N CA) HEPATIC FUNCTION [id number] 16:44:00 Test Item Value Reference Range Interpretation [...] 121 IUnit/L 20-125 N code = ALKP) [id number] 16:44:00 Test Item Value Reference Range Interpretation [...] may masoud y by method. BASIC METABOLIC [id number] 16:41:00 Test Item Value Reference Range Interpretation [...] code = CA) mg/dL 8.0-10.5 HEPATIC FUNCTION [id number] 16:41:00 Test Item Value Reference Range Interpretation Comments TOTAL PROTEIN (test code = PROT) g/dL 6.4-8.2 ALBUMIN (test code = ALB) g/dL 3.4-5.0 BILIRUBIN TOTAL (test code = BILT) mg/dL 0.0-1.0 BILIRUBIN DIRECT (test code = BILD) MG/DL 0.0-0.30 SGOT/AST (test code = AST) IUnit/L 15-37 SGPT/ALT (test code = ALT) IUnit/L 30-65 ALKALINE PHOSPHATASE TOTAL (test IUnit/L 20-125 code = ALKP) [id number] 16:41:00 Test Item Value Reference Range Interpretation [...] results may masoud y by method. LACTIC [id number] 16:39:00 Test Item Value Reference Range Interpretation Comments LACTIC ACID (test code = LACT) 2.6 mmol/L 0.4-1.9 H - XR CHEST 1 [id number] 16:34:00 [facility] 1960 Sex: M FAX: Buddy Guallpa [phone] [place]: St: ADM Name: MARCOS RAMOS [facility] : 1960 Age/S: 60/M [address] [place] [address] Bl Unit #: [id number] Loc: [place] [address] Phys: Jaylene Pal NP Acct: [id number] Dis Date: Status: ADM IN PHONE #: [phone] Exam Date: 07/13/2020 162 FAX #: [phone] Reason: sepsis EXAMS: CPT CODE: [id number] XR CHEST 1 V 90345 Portable single view AP chest INDICATION: Sepsis. [...] RT(R); Nikki Coello, RT(R) Trnscrd Date/Time/By: 07/13/2020 ([id number]) : By: [email or web address] Orig Print D/T: S: 07/13/2020 ([id number]) PAGE 1 Signed ReportCBC W/AUTO [id number] 16:28:00 Test Item Value Reference Range Interpretation [...] (test code NO = MDIFF) CBC W/AUTO [id number] 16:27:00 Test Item Value Reference Range Interpretation [...]
--- NOTE | 2021-12-01 13:36 | RAD REPORT ---
EXAM DESCRIPTION: CT - Head C Spine Cap Wo Con - 12/01/2021 1:21 pm CLINICAL HISTORY: Trauma, head and neck injury. Chest, abdomen and pelvis pain. trauma COMPARISON: No comparisons TECHNIQUE: CT head without contrast. CT cervical spine without contrast with coronal and sagittal reformatted images. CT chest, abdomen and pelvis with coronal and sagittal reformatted images of the spine. All CT scans are performed using dose optimization technique as appropriate and may include automated exposure control or mA/KV adjustment according to patient size. FINDINGS: CT HEAD WITHOUT CONTRAST: No intracranial hemorrhage, hydrocephalus or extra-axial fluid collection. No acute large vascular te rritory infarct. The paranasal sinuses and mastoids are clear. The calvarium is intact. CT CERVICAL SPINE WITHOUT CONTRAST: No fracture or subluxation. The prevertebral soft tissues are normal in thickness.Multilevel cervical spondylosis. Near bridging osteophytes are noted. Varying degrees of neural foraminal narrowing. CT CHEST, ABDOMEN, PELVIS: Thorax: Chest Wall: No abnormal mass Lungs: Atelectasis or scarring at the right lung base. Pleura: Small left effusion. Yu/Mediastinum: No lymphadenopathy. Aorta/Pulmonary Arteries: Unremarkable Heart: Cardiomegaly. Coronary artery calcifications. Abdomen/Pelvis: Liver: No acute abnormality or suspicious lesions. Biliary: No biliary ductal dilatation. Stomach: No significant focal abnormality. Duodenum: No significant focal abnormality. Pancreas: No significant abnormality. Spleen: No significant abnormality. Adrenal: No suspicious lesions. Kidney/ureter: No hydronephrosis. No renal calculi. Retroperitoneum: No retroperitoneal adenopathy. Reactive sized inguinal lymph nodes. Vascular: Atherosclerosis. Bowel: No significant focal abnormality. Peritoneum: No ascites or free air. Bladder: Grossly unremarkable. Reproductive: No adnexal masses. Bones: Mildly displaced right posterior tenth and eleventh rib fractures. Epidural pain pump. Other: n/a IMPRESSION: Mildly displaced right posterior tenth and eleventh rib fractures. Small underlying righ t pleural effusion which may reflect hemothorax. No pneumothorax. No other evidence of significant tr auma is identified. No acute intracranial abnormality. No acute fracture traumatic malalignment cervical spine.
--- NOTE | 2021-12-01 15:24 | ER ---
Nurse's Notes [facility] Name: Gasper Fry Age: 61 yrs Sex: Male : 1960 Arrival Date: 12/01/2021 Time: 12:57 Bed 14 Private MD: Diagnosis: Multiple fractures of ribs, right side Presentation: 12/01 12:57 Chief complaint: EMS states: Toned out for fall that occurred yesterday, home health jl7 nurse reported pt's back in hurting, pt reports he may have hit his head on a table. Care prior to arrival: None. Mechanism of Injury: Fall from standing position. Trauma event details: Injury occurred in the [facility], Injury occurred: at home. Injury occurred: November 30, 2021 Injury occurred at: 16:00. 12:57 Acuity: DARREL 2 jl7 12:57 Method Of Arrival: EMS: [facility] 7 13:01 Coronavirus screen: At this time, the client does not indicate any symptoms associated jl7 with coronavirus-19. Ebola Screen: No symptoms or risks identified at this time. Initial Sepsis Screen: Does the patient meet any 2 criteria? No. Patient's initial sepsis screen is negative. Does the patient have a suspected source of infection? No. Patient's initial sepsis screen is negative. Risk Assessment: Do you want to hurt yourself or someone else? Patient reports no desire to harm self or others. Onset of symptoms was November 30, 2021 at 16:00. Trauma Activation: Alert Physician: ED Physician; Name: Darline; Notified At: ; Arrived At: Physician: General Surgeon; Name: ; Notified At: ; Arrived At: Physician: Radiology; Name: ; Notified At: ; Arrived At: Physician: Respiratory; Name: ; Notified At: ; Arrived At: Physician: Lab; Name: Katharina; Notified At: ; Arrived At: Historical: - Allergies: 13:04 Haldol (Anaphylaxis); jl7 13:04 Narcan (Anaphylaxis); jl7 - Home Meds: 13:04 Eliquis 5 mg Oral tab 1 tab 2 times per day [Active]; benztropine 0.5 mg Oral tab 1 tab jl7 2 times per day [Active]; Risperdal 4 mg Oral tab 1 tab 2 times per day [Active]; isosorbide [Active]; Novolin 70/30 Innolet 45 units Sub-Q 45 units twice a day with meals [Active]; Farxiga 5 mg oral tab 1 tab once daily [Active]; glipizide 2.5 mg oral tr24 [Active]; sodium bicarbonate 650 mg Oral tab [Active]; metoprolol tartrate 25 mg oral tab [Active]; tamsulosin 0.4 mg oral cap [Active]; Lexapro 10 mg Oral tab [Active]; Depakote 500 mg Oral TbEC [Active]; amlodipine 10 mg tab 1 tab once daily [Active]; - PMHx: 13:04 ADD/ADHD; Anxiety; Bipolar disorder; Cellulitis; Chronic pain; CVA; Diabetes - IDDM; jl7 Hypertension; neuropathy; Seizures; Parkinson's disease; Congestive heart failure; unstable angina; Schizophrenia; - Immunization history: Last tetanus immunization: unknown. - Social history:: Smoking status: unknown. - Family history:: not pertinent. Screenin:05 Abuse screen: Denies threats or abuse. Nutritional screening: No deficits noted. jd3 Tuberculosis screening: No symptoms or risk factors identified. 13:08 Fall Risk Ambulatory Aid- None/Bed Rest/Nurse Assist (0 pts). Gait- Normal/Bed jd3 Rest/Wheelchair (0 pts) Mental Status- Oriented to own ability (0 pts). Total Martínez Fall Scale indicates No Risk (0-24 pts). Primary Survey: 13:05 NO uncontrolled hemorrhage observed. A: The client responds to verbal stimuli. Airway: jd3 patent, No supplemental oxygen in use on arrival. Breathing/Chest: Spontaneous respiratory effort, equal unlabored respirations, breath sounds clear bilaterally, regular pattern, symmetrical chest rise and fall. Circulation: No external hemorrhage present. Regular and strong central pulse, skin warm/dry/normal color. Disability Client is alert. Exposure/Environment: All clothing and personal items were removed. Forensic evidence collection is not deemed to be indicated at this time. Items placed in patient belonging bag. There is no evidence of uncontrolled external bleeding. No obvious injuries are noted at this time. A warming method has been applied: A warm blanket has been provided to the patient. 13:58 Reassessment Alertness and Airway: Awake and alert. The airway is patent. Breathing: jd3 Spontaneous respiratory effort, equal unlabored respirations, breath sounds clear bilaterally, regular pattern with symmetrical chest rise and fall. Circulation: No external hemorrhage noted. Regular and strong central pulse, skin warm/dry/normal color. Disability: Verbal stimuli. Secondary Survey: 13:05 HEENT: No deficits noted. Gastrointestinal: No deficits noted. : No signs and/or jd3 symptoms were reported regarding the genitourinary system. Musculoskeletal: Circulation, motion, and sensation intact. Range of motion: intact in all extremities. Assessment: 13:01 General: Appears in no apparent distress. comfortable, Behavior is calm, cooperative, jd3 appropriate for age, drowsy. Pain: Complains of pain in head and back Quality of pain is described as aching. Neuro: Cox Agitation-Sedation Scale (RASS): -1 Drowsy Level of Consciousness is awake, obeys commands, Oriented to person, place, situation, pt at baseline per what family reports to EMS. EENT: No signs and/or symptoms were reported regarding the EENT system. Cardiovascular: Heart tones present Capillary refill < 3 seconds Patient's skin is warm and dry. Respiratory: Airway is patent Respiratory effort is even, unlabored, Respiratory pattern is regular, symmetrical, Breath sounds are clear bilaterally. Denies cough, shortness of breath. GI: No signs and/or symptoms were reported involving the gastrointestinal system. Abdomen is non-distended, Bowel sounds present X 4 quads. Abd is soft and non tender X 4 quads. : No signs and/or symptoms were reported regarding the genitourinary system. Derm: Skin is intact, Skin is dry, Skin is normal, Skin temperature is warm no obvious wound noted to head or back. Musculoskeletal: Circulation, motion, and sensation intact. Range of motion: intact in all extremities. 13:58 Reassessment: Patient appears in no apparent distress at this time. No changes from jd3 previously documented assessment. Patient and/or family updated on plan of care and expected duration. Pain level reassessed. 15:09 Reassessment: Patient appears in no apparent distress at this time. No changes from jd3 previously documented assessment. Patient and/or family updated on plan of care and expected duration. Pain level reassessed. 16:00 Reassessment: Patient appears in no apparent distress at this time. No changes from jd3 previously documented assessment. Patient and/or family updated on plan of care and expected duration. Pain level reassessed. Patient is alert, oriented x 3, equal unlabored respirations, skin warm/dry/pink. 17:00 Reassessment: Patient appears in no apparent distress at this time. No changes from jd3 previously documented assessment. Patient and/or family updated on plan of care and expected duration. Pain level reassessed. Patient is alert, oriented x 3, equal unlabored respirations, skin warm/dry/pink. awaiting admission. 18:29 Reassessment: Patient appears in no apparent distress at this time. No changes from jd3 previously documented assessment. Patient and/or family updated on plan of care and expected duration. Pain level reassessed. Patient is alert, oriented x 3, equal unlabored respirations, skin warm/dry/pink. Vital Signs: 13:01 BP 105 / 49; Pulse 61; Resp 17; Temp 98.1; Pulse Ox 94% ; Weight 95.25 kg; Height 5 ft. jl7 11 in. (180.34 cm); 13:58 BP 147 / 73; Pulse 59; Resp 16 S; Pulse Ox 97% on R/A; jd3 15:09 BP 166 / 79; Pulse 59; Resp 16 S; Pulse Ox 99% on R/A; jd3 18:29 BP 171 / 76; Pulse 65; Resp 16 S; Pulse Ox 97% on R/A; jd3 13:01 Body Mass Index 29.29 (95.25 kg, 180.34 cm) jl7 Nicole Coma Score: 13:05 Eye Response: spontaneous(4). Verbal Response: oriented(5). Motor Response: obeys jd3 commands(6). Total: 15. 13:58 Eye Response: spontaneous(4). Verbal Response: oriented(5). Motor Response: obeys jd3 commands(6). Total: 15. 18:35 Eye Response: spontaneous(4). Verbal Response: oriented(5). Motor Response: obeys jd3 commands(6). Total: 15. Trauma Score (Adult): 13:05 Eye Response: spontaneous(1); Verbal Response: oriented(1); Motor Response: obeys jd3 commands(2); Systolic BP: > 89 mm Hg(4); Respiratory Rate: 10 to 29 per min(4); Nicole Score: 15; Trauma Score: 12 13:58 Eye Response: spontaneous(1); Verbal Response: oriented(1); Motor Response: obeys jd3 commands(2); Systolic BP: > 89 mm Hg(4); Respiratory Rate: 10 to 29 per min(4); [place] Score: 15; Trauma Score: 12 18:35 Eye Response: spontaneous(1); Verbal Response: oriented(1); Motor Response: obeys jd3 commands(2); Systolic BP: > 89 mm Hg(4); Respiratory Rate: 10 to 29 per min(4); [place] Score: 15; Trauma Score: 12 ED Course: 12:57 Patient arrived in ED. jl7 12:58 Justin Gregorio MD is Attending Physician. ma2 13:01 Triage completed. jl7 13:01 Cirilo Castro RN is Primary Nurse. jd3 13:05 Patient has correct armband on for positive identification. Placed in gown. Bed in low jd3 position. Call light in reach. Side rails up X2. Client placed on continuous cardiac and pulse oximetry monitoring. NIBP monitoring applied. media monitor on. Pulse ox on. NIBP on. 13:05 Patient maintains SpO2 saturation greater than 95% on room air. Thermoregulation: warm jd3 blanket given to patient. 13:08 Arm band placed on. jd3 13:22 CT Traumagram (Head C Spine CAP wo con) In Process Unspecified. EDMS 15:24 Dhaval Drake MD is Hospitalizing Provider. ma2 15:42 Inserted saline lock: 22 gauge in left antecubital area, using aseptic technique. zm 15:49 CBC with Automated Diff Sent. zm 15:49 Basic Metabolic Panel Sent. zm 15:49 CBC with Automated Diff Sent. zm 19:14 Primary Nurse role handed off by Cirilo Castro, RN mw2 Administered Medications: 15:52 Drug: morphine 4 mg Route: IVP; Infused Over: 4 mins; Site: left antecubital; jd3 16:50 Follow up: Response: No adverse reaction; RASS: Alert and Calm (0) jd3 15:52 Drug: Zofran (Ondansetron) 4 mg Route: IVP; Site: left antecubital; jd3 16:50 Follow up: Response: No adverse reaction jd3 Medication: 13:08 VIS not applicable for this client. jd3 Outcome: 15:24 Decision to Hospitalize by Provider. ma2 20:15 Patient left the ED. bb Signatures: Dispatcher [employer] Guadalupe Floyd RN RN bb Leal, Jahala, RN RN jl7 Cirilo Castro RN RN jd3 Alzahri, Mohammad, MD MD ma2 Abena Arguelles 2 Maye Parra Corrections: (The following items were deleted from the chart) 14:00 13:05 NO uncontrolled hemorrhage observed jd3 jd3 14:00 13:05 A: The client responds to verbal stimuli. Airway: patent, No supplemental oxygen jd3 in use on arrival. jd3 14:00 13:05 Breathing/Chest: Spontaneous respiratory effort, equal unlabored respirations, jd3 breath sounds clear bilaterally, regular pattern, symmetrical chest rise and fall. jd3 14:00 13:05 Circulation: No external hemorrhage present. Regular and strong central pulse, jd3 skin warm/dry/normal color. jd3 14:00 13:05 Exposure/Environment: All clothing and personal items were removed. Forensic jd3 evidence collection is not deemed to be indicated at this time. Items placed in patient belonging bag. There is no evidence of uncontrolled external bleeding. No obvious injuries are noted at this time. A warming method has been applied: A warm blanket has been provided to the patient. jd3 18:36 13:05 Nicole Score=14, Trauma Score=11, jd3 jd3 18:36 13:05 GCS: 14, jd3 jd3 18:36 13:58 [place] Score=14, Trauma Score=11, jd3 jd3 18:36 13:58 GCS: 14, jd3 jd3 18:37 13:01 Neuro: Cox Agitation-Sedation Scale (RASS): -1 Drowsy Level of Consciousness jd3 is awake, obeys commands, Oriented to person, place, situation, pt at baseline per what family reports to EMS. jd3
--- NOTE | 2021-12-01 15:25 | EDPHYS ---
Physician Documentation [facility] Name: Gasper Fry Age: 61 yrs Sex: Male : 1960 Arrival Date: 12/01/2021 Time: 12:57 Bed 14 Private MD: ED Physician Justin Gregorio HPI: 12/01 13:51 This 61 yrs old Male presents to ER via EMS with complaints of Fall Injury. ma2 13:51 61-year-old male history of bipolar chronic back pain, fell at detention yesterday ma2 presents with back pain right lower denies focal weakness no change in sensation no urinary incontinence or retention, no fever.. Historical: - Allergies: 13:04 Haldol (Anaphylaxis); jl7 13:04 Narcan (Anaphylaxis); jl7 - Home Meds: 13:04 Eliquis 5 mg Oral tab 1 tab 2 times per day [Active]; benztropine 0.5 mg Oral tab 1 tab jl7 2 times per day [Active]; Risperdal 4 mg Oral tab 1 tab 2 times per day [Active]; isosorbide [Active]; Novolin 70/30 Innolet 45 units Sub-Q 45 units twice a day with meals [Active]; Farxiga 5 mg oral tab 1 tab once daily [Active]; glipizide 2.5 mg oral tr24 [Active]; sodium bicarbonate 650 mg Oral tab [Active]; metoprolol tartrate 25 mg oral tab [Active]; tamsulosin 0.4 mg oral cap [Active]; Lexapro 10 mg Oral tab [Active]; Depakote 500 mg Oral TbEC [Active]; amlodipine 10 mg tab 1 tab once daily [Active]; - PMHx: 13:04 ADD/ADHD; Anxiety; Bipolar disorder; Cellulitis; Chronic pain; CVA; Diabetes - IDDM; jl7 Hypertension; neuropathy; Seizures; Parkinson's disease; Congestive heart failure; unstable angina; Schizophrenia; - Immunization history: Last tetanus immunization: unknown. - Social history:: Smoking status: unknown. - Family history:: not pertinent. ROS: 13:51 Constitutional: Negative for fever, chills, and weight loss. ma2 13:51 All other systems are negative. Exam: 13:51 Constitutional: This is a well developed, well nourished patient who is awake, alert, ma2 and in no acute distress. Head/Face: Normocephalic, atraumatic. Eyes: Pupils equal round and reactive to light, extra-ocular motions intact. Lids and lashes normal. Conjunctiva and sclera are non-icteric and not injected. Cornea within normal limits. Periorbital areas with no swelling, redness, or edema. ENT: Nares patent. No nasal discharge, no septal abnormalities noted. Tympanic membranes are normal and external auditory canals are clear. Oropharynx with no redness, swelling, or masses, exudates, or evidence of obstruction, uvula midline. Mucous membranes moist. Neck: Trachea midline, no thyromegaly or masses palpated, and no cervical lymphadenopathy. Supple, full range of motion without nuchal rigidity, or vertebral point tenderness. No Meningismus. Chest/axilla: Normal chest wall appearance and motion. Nontender with no deformity. No lesions are appreciated. Cardiovascular: Regular rate and rhythm with a normal S1 and S2. No gallops, murmurs, or rubs. Normal PMI, no JVD. No pulse deficits. Respiratory: Lungs have equal breath sounds bilaterally, clear to auscultation and percussion. No rales, rhonchi or wheezes noted. No increased work of breathing, no retractions or nasal flaring. Abdomen/GI: Soft, non-tender, with normal bowel sounds. No distension or tympany. No guarding or rebound. No evidence of tenderness throughout. Back: No spinal tenderness. No costovertebral tenderness. Full range of motion. Skin: Warm, dry with normal turgor. Normal color with no rashes, no lesions, and no evidence of cellulitis. MS/ Extremity: Pulses equal, no cyanosis. Neurovascular intact. Full, normal range of motion. Neuro: Awake and alert, GCS 15, oriented to person, place, time, and situation. Cranial nerves II-XII grossly intact. Motor strength 5/5 in all extremities. Sensory grossly intact. Cerebellar exam normal. Normal gait. Vital Signs: 13:01 BP 105 / 49; Pulse 61; Resp 17; Temp 98.1; Pulse Ox 94% ; Weight 95.25 kg; Height 5 ft. jl7 11 in. (180.34 cm); 13:58 BP 147 / 73; Pulse 59; Resp 16 S; Pulse Ox 97% on R/A; jd3 15:09 BP 166 / 79; Pulse 59; Resp 16 S; Pulse Ox 99% on R/A; jd3 18:29 BP 171 / 76; Pulse 65; Resp 16 S; Pulse Ox 97% on R/A; jd3 13:01 Body Mass Index 29.29 (95.25 kg, 180.34 cm) jl7 [place] Coma Score: 13:05 Eye Response: spontaneous(4). Verbal Response: oriented(5). Motor Response: obeys jd3 commands(6). Total: 15. 13:58 Eye Response: spontaneous(4). Verbal Response: oriented(5). Motor Response: obeys jd3 commands(6). Total: 15. 18:35 Eye Response: spontaneous(4). Verbal Response: oriented(5). Motor Response: obeys jd3 commands(6). Total: 15. Trauma Score (Adult): 13:05 Eye Response: spontaneous(1); Verbal Response: oriented(1); Motor Response: obeys jd3 commands(2); Systolic BP: > 89 mm Hg(4); Respiratory Rate: 10 to 29 per min(4); Nicole Score: 15; Trauma Score: 12 13:58 Eye Response: spontaneous(1); Verbal Response: oriented(1); Motor Response: obeys jd3 commands(2); Systolic BP: > 89 mm Hg(4); Respiratory Rate: 10 to 29 per min(4); Nicole Score: 15; Trauma Score: 12 18:35 Eye Response: spontaneous(1); Verbal Response: oriented(1); Motor Response: obeys jd3 commands(2); Systolic BP: > 89 mm Hg(4); Respiratory Rate: 10 to 29 per min(4); [place] Score: 15; Trauma Score: 12 MDM: 15:23 Differential diagnosis: fracture, sprain, strain. Data reviewed: vital signs, nurses ma2 notes. Counseling: I had a detailed discussion with the patient and/or guardian regarding: the historical points, exam findings, and any diagnostic results supporting the discharge/admit diagnosis, the presence of at least one elevated blood pressure reading (>120/80) during this emergency department visit, the need for further work-up and treatment in the hospital. Response to treatment: the patient's symptoms have markedly improved after treatment. 15:24 Patient medically screened. ma2 12/01 15:37 Order name: CBC with Automated Diff EDMS 12/01 15:42 Order name: Basic Metabolic Panel EDMS 12/01 12:59 Order name: CT Traumagram (Head C Spine CAP wo con); Complete Time: 13:52 ma2 12/01 15:42 Order name: CBC with Automated Diff EDMS 12/01 15:57 Order name: SARS-COV-2 RT PCR (Document "Date of Onset" if Symptomatic) eb 12/01 17:37 Order name: SARS-COV-2 RT PCR EDMS 12/01 15:37 Order name: Regular EDMS 12/01 15:37 Order name: Chest Single View EDMS Administered Medications: 15:52 Drug: morphine 4 mg Route: IVP; Infused Over: 4 mins; Site: left antecubital; jd3 16:50 Follow up: Response: No adverse reaction; RASS: Alert and Calm (0) jd3 15:52 Drug: Zofran (Ondansetron) 4 mg Route: IVP; Site: left antecubital; jd3 16:50 Follow up: Response: No adverse reaction jd3 Disposition Summary: 12/01/21 15:24 Hospitalization Ordered Hospitalization Status: Inpatient Admission hi2 Provider: Dhaval Drake Location: Telemetry/MedSurg (Inpatient) ma2 Condition: Stable ma2 Problem: new ma2 Symptoms: are unchanged ma2 Bed/Room Type: Standard [facility] Room Assignment: 410(12/01/21 19:59) cg Diagnosis - Multiple fractures of ribs, right side ma2 Forms: - Medication Reconciliation Form ma2 - SBAR form ma2 Signatures: Dispatcher [employer] Laura Berry RN RN cg Leal, Jahala, RN RN Cirilo Winslow RN RN jd3 Justin Gregorio MD MD ma2 Corrections: (The following items were deleted from the chart) 19:59 15:24 ma2 cg
--- NOTE | 2021-12-01 15:26 | P.HP ---
Certification for Inpatient Patient admitted to: Observation With expected LOS: <2 Midnights Patient will require the following post-hospital care: None Practitioner: I am a practitioner with admitting privileges, knowledge of patient current condition, hospital course, and medical plan of care. Services: Services provided to patient in accordance with Admission requirements found in Title 42 Section 412.3 of the Code of Federal Regulations Patient History Date of Service: 12/01/21 (Hospitalist) Reason for admission: Fall R Rib fractures History of Present Illness: age 61 aW rib fractures c/o R lower back pain/history of frequent falls patient can barely walk he is got amputated toes from his diabetes recurrent falls not sure why he fell today planing of pain in his right lower back denies any shortness of breath history of chest pains Mildly displaced right posterior tenth and eleventh rib fractures. Small underlying right pleural effusion which may reflect hemothorax. No pneumothorax. No other evidence of significant trauma is identified. Allergies haloperidol [From Haldol] Allergy (Verified 12/03/20 01:19) Anaphylaxis naloxone [From Narcan] Allergy (Verified 12/03/20 01:19) Anaphylaxis Home Medications: Metoprolol Tartrate [Lopressor*] 1 tab PO BID 12/01/19 Hydralazine [Apresoline*] 25 mg PO BID #60 tab 12/06/20 Amitriptyline HCl 1 tab PO BEDTIME 10/21/21 Amlodipine [Norvasc*] 1 tab PO BEDTIME 10/21/21 Aspirin [Vazalore] 1 tab PO DAILY 10/21/21 Atorvastatin Calcium 1 tab PO BEDTIME 10/21/21 Benztropine Mesylate [Cogentin*] 1 tab PO DAILY 10/21/21 Bumetanide [Bumex*] 2 tab PO BID 10/21/21 Carvedilol [Coreg] 1 tab PO BID 10/21/21 Divalproex [Depakote Sprinkle*] 250 mg PO BEDTIME 10/21/21 Docusate Sodium [Colace] 1 tab PO BID 10/21/21 Duloxetine [Cymbalta *] 2 tab PO BEDTIME 10/21/21 Ergocalciferol (Vitamin D2) [Vitamin D2] 1 tab PO WMP 10/21/21 Escitalopram Oxalate 1.5 tab PO DAILY 10/21/21 Glipizide [Glipizide Xl] 1 tab PO BID 10/21/21 Hydralazine [Apresoline*] 1 tab PO Q8H 10/21/21 Hydrocodone Bit/Acetaminophen [Hydrocodon-Acetaminophn 10-325] 1 tab PO Q8H 10/21/21 Insulin Degludec [Tresiba] 20 units IJ BID 10/21/21 Isosorbide Mononitrate [Isosorbide Mononitrate ER] 3 tab PO DAILY 10/21/21 Mirtazapine 1 tab PO BEDTIME 10/21/21 Nitroglycerin 1 tab PO PRN PRN MDD 3 10/21/21 Pantoprazole [Protonix Tab*] 1 tab PO BID 10/21/21 Risperidone 1 tab PO DAILY 10/21/21 Semaglutide [Ozempic] 1 mg IJ WMP 10/21/21 Tamsulosin [Flomax*] 1 tab PO BID 10/21/21 Tramadol HCl [Ultram] 1 tab PO PRN PRN 10/21/21 clonazePAM [Clonazepam] 1 tab PO TID 10/21/21 Apixaban [Eliquis *] 2.5 mg PO BID #60 tablet 10/23/21 - Past Medical/Surgical History Diabetic: Yes -: Diabetes mellitus type 2, insulin-dependent -: Hypertension -: Seizure disorder -: Peripheral vascular disease -: History of osteomyelitis -: Hyperlipidemia -: Bipolar disorder -: Tobacco abuse -: schizophrenia -: History of amputation to the left great toe -: History of blood clots -: CKD followed by Dr. Bolton -: Neck and back surgery -: Right eye removal -: Right knee surgery -: Bilateral wrist surgery due to suicide attempt -: Left great toe amputation Psychosocial/ Personal History: Patient is . He has 2 children. He lives at home. - Family History Brother -: Hypertension Sister -: Diabetes Father -: Heart disease Notes: heart attack Mother -: Diabetes - Social History Alcohol use: No CD- Drugs: No Caffeine use: Yes Review of Systems 10-point ROS is otherwise unremarkable General: Weakness Cardiovascular: Chest Pain Physical Examination - Vital Signs Temperature: 98.1 F Blood Pressure: 105/49 Pulse: 61 Respirations: 17 Pulse Ox (%): 97 (Ra) - Physical Exam General: Alert, Oriented x3, Cooperative HEENT: Atraumatic Neck: Supple Respiratory: Clear to auscultation bilaterally Cardiovascular: No edema, Normal S1 S2, Abnormal pulses Gastrointestinal: Normal bowel sounds, Soft and benign Musculoskeletal: No clubbing Integumentary: Other (Lower extremity eczema) Neurological: Normal speech, Other (Weakness on the right side particularly his right arm and right leg) Assessment and Plan - Problems (Diagnosis) (1) Right rib fracture Current Visit: Yes Status: Acute Plan: age 61aw R rib fractures/is a 2 rib fractures on the right side complaining of pain he has multiple falls before notable medical problems amputation of toes both feet history of stroke in addition patient has bipolar diabetes patient also has had a cardiac evaluation with a stress test negative for ischemia need to review blood pressure medications due to falls Qualifiers: Encounter type: initial encounter (2) Acute on chronic renal failure Current Visit: Yes Status: Acute Plan: Renal function worse start on half-normal saline Qualifiers: Acute renal failure type: unspecified - Advance Directives Does patient have a Living Will: No Does patient have a Durable POA for Healthcare: No
[2021-12-01] MEDS ORDERED: ONDANSETRON 4 MG/2 ML VIAL IV PRN (15:28)
[2021-12-01] MEDS ORDERED: Oxycodone HCl/Acetaminophen 1 TAB TAB PO PRN (15:35)
[2021-12-01] MEDS ORDERED: ONDANSETRON 4 MG/2 ML VIAL ONE (15:35)
[2021-12-01] MEDS ORDERED: MORPHINE 4 MG/ML SYR ONE (15:35)
[2021-12-01] MEDS ORDERED: D5 0.45 NS 1,000 ML IV SCH (16:00)
[2021-12-01 16:07] LABS: Hematocrit 24.8 % (39.6-49.0); Lymphocytes % 14.7 % (15.3-44.8); MPV 8.7 fL (7.6-11.3); RBC Red Blood Cell Count 2.78 M/uL (4.33-5.43)
[2021-12-01 16:17] LABS: Potassium 4.3 mmol/L (3.5-5.1)
[2021-12-01] MEDS: INSULIN -REGULAR HUMAN 50 UNIT/0.5 ML ML SQ SCH ×2 (16:30→21:00)
[2021-12-01] MEDS: NACHLORIDE 0.45% 1,000 ML IV SCH (17:00)
[2021-12-01] MEDS ORDERED: Oxycodone HCl/Acetaminophen 1 TAB TAB ONE (19:50)
[2021-12-01 20:40] VITALS: O2SAT 97
[2021-12-01] MEDS ORDERED: carvediloL 25 MG TAB PO SCH (21:00)
[2021-12-01] MEDS ORDERED: TAMSULOSIN 0.4 MG SR CAP PO SCH (21:00)
[2021-12-01] MEDS ORDERED: AMLODIPINE 10 MG TAB PO SCH (21:00)
[2021-12-01] MEDS ORDERED: METOPROLOL TAR 50 MG TAB PO SCH (21:00)
[2021-12-01] MEDS ORDERED: DIVALPROEX NA 125 MG CAP PO SCH (21:00)
[2021-12-01] MEDS ORDERED: APIXABAN 2.5 MG TABLET PO SCH (21:00)
[2021-12-01] MEDS: MORPHINE 2 MG/ML SYR IV PRN (21:26)
[2021-12-02] MEDS: MORPHINE 2 MG/ML SYR IV PRN (03:05)
[2021-12-02] MEDS: NACHLORIDE 0.45% 1,000 ML IV SCH (03:06)
[2021-12-02 05:05] VITALS: BP 160/72; TEMP 97.2
[2021-12-02 05:18] LABS: Absolute Lymphocytes (CBC) 1.3 K/uL (0.7-4.9); Hematocrit 25.2 % (39.6-49.0); Lymphocytes % 20.6 % (15.3-44.8); MPV 8.8 fL (7.6-11.3)
--- NOTE | 2021-12-02 07:35 | RAD REPORT ---
EXAM DESCRIPTION: RAD - Chest Single View - 12/02/2021 6:28 am CLINICAL HISTORY: rib fractures, shortness of breath COMPARISON: CT trauma study 12/01/2021 TECHNIQUE: AP portable chest image was obtained 12/02/2021 6:28 am . FINDINGS: Inspiratory effort is shallow. Right lung base atelectasis changes are present. The media coordinator ior right rib fractures are mostly obscured by portable technique and shallow inspiration. Heart and vasculature are normal. No pneumothorax has developed. No acute aortic findings suspected. IMPRESSION: Right lung base atelectasis due to shallow inspiration. No pneumothorax has developed.
[2021-12-02] MEDS ORDERED: ESCITALOPRAM 20 MG TAB PO SCH (09:00)
[2021-12-02] MEDS ORDERED: DIVALPROEX ER 250 MG TAB PO SCH (09:00)
[2021-12-02] MEDS ORDERED: ISOSORBIDE MONO SR 30 MG TAB PO SCH (09:00)
--- NOTE | 2021-12-02 20:49 | P.DS ---
Admission Date: 12/01/21 Discharge Date: 12/02/21 Disposition: AMA-LEFT AGAINST MEDICAL ADVIC Discharge Condition: GOOD Reason for Admission: Fall R Rib fractures Brief History of Present Illness: 61yo M, presented to ED with R posterior thoracic and lower back pain after fall. Patient does not remember fall / why he fell. He has had multiple falls over the last several months. Denies shortness of breath. In the ER, workup revealed mildly displaced right posterior 10th and 11th rib fractures, with small underlying right pleural effusion. Hospital Course: Patient was admitted for pain control. Upon my arrival the following morning. Nursing staff called me that patient was leaving against medical advice due to not receiving more IV pain medication. Patient walked off the floor, and I met him in the (empty) hospital lobby. Patient refused to try and PO pain medication since "none of it helps" and he only wanted IV pain medication. Patient ambulated around the lobby without issue. He refused to discuss this matter any further and called a taxi to pick him up. I expressed this is not recommended, he was undergoing observation due to his rib fractures and possible complications. While I was attempting to talk with the patient, he ambulated away from me without issue. Vital Signs/Physical Exam: Temp Pulse Resp BP Pulse Ox 97.2 F 59 19 160/72 H 94 12/02/21 04:00 12/02/21 04:00 12/02/21 04:00 12/02/21 04:00 12/02/21 04:00 General: Alert, In no apparent distress Laboratory Data at Discharge: WBC 6.2 K/uL (4.3-10.9) 12/02/21 03:52 Hgb 8.6 g/dL (13.6-17.9) L 12/02/21 03:52 Hct 25.2 % (39.6-49.0) L 12/02/21 03:52 Plt Count 209 K/uL (152-406) 12/02/21 03:52 Sodium 137 mmol/L (136-145) 12/02/21 03:52 Potassium 4.0 mmol/L (3.5-5.1) 12/02/21 03:52 BUN 45 mg/dL (7-18) H 12/02/21 03:52 Creatinine 3.09 mg/dL (0.55-1.3) H 12/02/21 03:52 Glucose 105 mg/dL (74-106) 12/02/21 03:52 Home Medications: Metoprolol Tartrate [Lopressor*] 1 tab PO BID 12/01/19 Hydralazine [Apresoline*] 25 mg PO BID #60 tab 12/06/20 Amitriptyline HCl 1 tab PO BEDTIME 10/21/21 Amlodipine [Norvasc*] 1 tab PO BEDTIME 10/21/21 Aspirin [Vazalore] 1 tab PO DAILY 10/21/21 Atorvastatin Calcium 1 tab PO BEDTIME 10/21/21 Benztropine Mesylate [Cogentin*] 1 tab PO DAILY 10/21/21 Bumetanide [Bumex*] 2 tab PO BID 10/21/21 Carvedilol [Coreg] 1 tab PO BID 10/21/21 Divalproex [Depakote Sprinkle*] 250 mg PO BEDTIME 10/21/21 Docusate Sodium [Colace] 1 tab PO BID 10/21/21 Duloxetine [Cymbalta *] 2 tab PO BEDTIME 10/21/21 Ergocalciferol (Vitamin D2) [Vitamin D2] 1 tab PO WMP 10/21/21 Escitalopram Oxalate 1.5 tab PO DAILY 10/21/21 Glipizide [Glipizide Xl] 1 tab PO BID 10/21/21 Hydralazine [Apresoline*] 1 tab PO Q8H 10/21/21 Hydrocodone Bit/Acetaminophen [Hydrocodon-Acetaminophn 10-325] 1 tab PO Q8H 10/21/21 Insulin Degludec [Tresiba] 20 units IJ BID 10/21/21 Isosorbide Mononitrate [Isosorbide Mononitrate ER] 3 tab PO DAILY 10/21/21 Mirtazapine 1 tab PO BEDTIME 10/21/21 Nitroglycerin 1 tab PO PRN PRN MDD 3 10/21/21 Pantoprazole [Protonix Tab*] 1 tab PO BID 10/21/21 Risperidone 1 tab PO DAILY 10/21/21 Semaglutide [Ozempic] 1 mg IJ WMP 10/21/21 Tamsulosin [Flomax*] 1 tab PO BID 10/21/21 Tramadol HCl [Ultram] 1 tab PO PRN PRN 10/21/21 clonazePAM [Clonazepam] 1 tab PO TID 10/21/21 Apixaban [Eliquis *] 2.5 mg PO BID #60 tablet 10/23/21 Followup: NONE,NONE [Primary Care Provider] - Time spent managing pt's care (in minutes): 40
== END 2021-12-02 08:10 | disposition left against medical advice (07) ==
LOC: ER 12:53 → ERHOLD 15:32 → 4TH 20:21
PROVIDERS: ADMIT Internal Medicine Sleep Medicine; ATTEND Hospitalist
DX: S22.41XA Multiple fractures of ribs, right side, initial encounter for closed fracture (principal); W19.XXXA Unspecified fall, initial encounter; Y93.9 Activity, unspecified; Y92.009 Unspecified place in unspecified non-institutional (private) residence as the place of occurrence of the external cause; Z91.81 History of falling; Z53.29 Procedure and treatment not carried out because of patient's decision for other reasons; J90 Pleural effusion, not elsewhere classified; N17.9 Acute kidney failure, unspecified; I12.9 Hypertensive chronic kidney disease with stage 1 through stage 4 chronic kidney disease, or unspecified chronic kidney disease; E11.22 Type 2 diabetes mellitus with diabetic chronic kidney disease; N18.9 Chronic kidney disease, unspecified; E11.40 Type 2 diabetes mellitus with diabetic neuropathy, unspecified; G20 Parkinson's disease; I73.9 Peripheral vascular disease, unspecified; G40.909 Epilepsy, unspecified, not intractable, without status epilepticus; E78.5 Hyperlipidemia, unspecified; G89.29 Other chronic pain; F31.9 Bipolar disorder, unspecified; F41.9 Anxiety disorder, unspecified; Z79.899 Other long term (current) drug therapy; Z79.01 Long term (current) use of anticoagulants; Z79.4 Long term (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; Z88.8 Allergy status to other drugs, medicaments and biological substances; Z89.412 Acquired absence of left great toe; Z90.01 Acquired absence of eye; Z82.49 Family history of ischemic heart disease and other diseases of the circulatory system; Z83.3 Family history of diabetes mellitus
CPT/HCPCS: 85025 ×2; 80048 ×2; 36415 ×2; 82947; 70450; 71250; 72125; 71045; 94760; 96375; 96374; 99285; U0003; J2270 ×2; J2405; G0378

== ENCOUNTER 2021-12-17 14:31 | Emergency (ER) | payer OTHER ==
[2021-12-17 15:46] LABS: Absolute Lymphocytes (CBC) 0.8 K/uL (0.7-4.9); Hematocrit 28.2 % (39.6-49.0); Lymphocytes % 12.2 % (15.3-44.8); MCV 89.3 fL (80-100); MPV 8.1 fL (7.6-11.3); RBC Red Blood Cell Count 3.16 M/uL (4.33-5.43)
[2021-12-17 15:53] LABS: Albumin 2.7 g/dL (3.4-5.0); Bilirubin Total 0.4 mg/dL (0.2-1.0); Potassium 3.7 mmol/L (3.5-5.1); Protein, Total 7.4 g/dL (6.4-8.2)
--- NOTE | 2021-12-17 18:02 | EDPHYS ---
Physician Documentation [facility] Name: Gasper Fry Age: 61 yrs Sex: Male : 1960 Arrival Date: 12/17/2021 Time: 14:37 Bed 2 Private MD: ED Physician Tayo Rivas HPI: 12/17 16:28 This 61 yrs old Male presents to ER via EMS with complaints of Low Blood Sugar.rn 16:28 The patient or guardian reports hypoglycemia, that was potentially precipitated by no rn particular event. Onset: The symptoms/episode began/occurred today. Associated signs and symptoms: Pertinent positives: anorexia, Pertinent negatives: seizure activity, vomiting. Current symptoms: In the emergency department the patient's symptoms have improved. It is unknown whether or not the patient has had similar symptoms in the past. The patient has not recently seen a physician. EMS reports low blood sugar, in 50s, given glucose oral and IV, improvement of glucose and mental status. Pt reports did not eat last night, has not had appetite, and has been having abd pain for a couple of days. No fever. No vomiting. No diarrhea. . Historical: - Allergies: 14:41 Haldol (Anaphylaxis); jl7 14:41 Narcan (Anaphylaxis); jl7 - PMHx: 14:41 ADD/ADHD; Anxiety; Bipolar disorder; Cellulitis; Chronic pain; Congestive heart jl7 failure; CVA; Diabetes - IDDM; Hypertension; neuropathy; Parkinson's disease; Schizophrenia; Seizures; unstable angina; - Immunization history:: Adult Immunizations unknown. - Social history:: Smoking status: Patient reports the use of cigarette tobacco products, denies chronic smoking, but will smoke occasionally. - Family history:: not pertinent. - Hospitalizations: : No recent hospitalization is reported. ROS: 17:24 Constitutional: Negative for fever, chills, and weight loss, Eyes: Negative for injury, rn pain, redness, and discharge, Neck: Negative for injury, pain, and swelling, Cardiovascular: Negative for chest pain, palpitations, and edema, Respiratory: Negative for shortness of breath, cough, wheezing, and pleuritic chest pain, Abdomen/GI: Negative for vomiting, diarrhea, and constipation, Back: Negative for injury and pain, MS/Extremity: Negative for injury and deformity, Skin: Negative for injury, rash, and discoloration, Neuro: Negative for headache, weakness, numbness, tingling, and seizure. Exam: 17:24 Constitutional: This is a well developed, well nourished patient who is awake, alert, rn and in no acute distress. Head/Face: Normocephalic, atraumatic. Cardiovascular: Regular rate and rhythm. No pulse deficits. Respiratory: No increased work of breathing, no retractions or nasal flaring. Abdomen/GI: soft, no focal tenderness, non-distended Skin: Warm, dry MS/ Extremity: Pulses equal, no cyanosis Neuro: Awake and alert, GCS 15, oriented to person, place, time, and situation. Cranial nerves II-XII grossly intact. Motor strength 5/5 in all extremities. Sensory grossly intact. Cerebellar exam normal. Vital Signs: 14:37 BP 169 / 101; Pulse 66; Resp 15; Temp 97.9; Pulse Ox 96% on R/A; Weight 97.52 kg; jl7 Height 6 ft. 0 in. (182.88 cm); Pain 9/10; 15:52 BP 184 / 93; Pulse 65; Resp 15; Pulse Ox 95% ; jl7 17:28 BP 177 / 84; Pulse 65; Resp 18; Pulse Ox 98% ; Pain 7/10; jh6 14:37 Body Mass Index 29.16 (97.52 kg, 182.88 cm) jl7 MDM: 14:39 Patient medically screened. rn 17:59 Differential diagnosis: hypoglycemic episode, abdominal pain, COVID, viral syndrome. rn Data reviewed: vital signs, nurses notes, lab test result(s), and as a result, I will discharge patient. Counseling: I had a detailed discussion with the patient and/or guardian regarding: the historical points, exam findings, and any diagnostic results supporting the discharge/admit diagnosis, lab results, the need for outpatient follow up, to return to the emergency department if symptoms worsen or persist or if there are any questions or concerns that arise at home. Response to treatment: the patient's symptoms have markedly improved after treatment, and as a result, I will discharge patient. ED course: Glucose improved, patient fed here, refuses CT abdomen. States doesn't want it and doesn't need it. He called his family to pick him up and insists on discharge. Stable vitals.. 12/17 14:40 Order name: SARS-COV-2 RT PCR (Document "Date of Onset" if Symptomatic); Complete Time: rn 17:01 12/17 14:40 Order name: CBC with Diff; Complete Time: 16:23 rn 12/17 14:40 Order name: CMP; Complete Time: 16:23 rn 12/17 14:40 Order name: Lipase; Complete Time: 16:23 rn 12/17 16:00 Order name: Glucose, Ancillary Testing; Complete Time: 16:23 [facility] 12/17 18:10 Order name: Glucose, Ancillary Testing [facility] 12/17 14:40 Order name: IV Start; Complete Time: 15:47 rn 12/17 14:40 Order name: Glucose Level; Complete Time: 15:50 rn 12/17 14:40 Order name: Cardiac monitoring; Complete Time: 15:50 rn 12/17 14:40 Order name: O2 Sat Monitoring; Complete Time: 15:47 rn 12/17 14:40 Order name: EKG; Complete Time: 14:41 rn 12/17 14:40 Order name: EKG - Nurse/Tech; Complete Time: 15:47 rn 12/17 14:41 Order name: CT Abd/Pelvis - Without Contrast rn Administered Medications: No medications were administered Disposition Summary: 12/17/21 18:01 Discharge Ordered Location: Home rn Problem: new rn Symptoms: have improved rn Condition: Stable rn Diagnosis - Hypoglycemia, unspecified rn - Abdominal pain, unspecified rn Followup: rn - With: Private Physician - When: As needed - Reason: Recheck today's complaints, Re-evaluation by your physician Discharge Instructions: - Discharge Summary Sheet rn - Abdominal Pain, Adult rn - Hypoglycemia rn - Blood Glucose Monitoring, Adult rn Forms: - Medication Reconciliation Form rn - Thank You Letter rn - Antibiotic web design intern - Prescription Opioid Use rn Signatures: Dispatcher [employer] Tayo Wilson MD MD rn Leal, Jahala, RN RN jl7
--- NOTE | 2021-12-17 18:02 | ER ---
Nurse's Notes [facility] Name: Gasper Fry Age: 61 yrs Sex: Male : 1960 Arrival Date: 12/17/2021 Time: 14:37 Bed 2 Private MD: Diagnosis: Hypoglycemia, unspecified;Abdominal pain, unspecified Presentation: 12/17 14:37 Chief complaint: EMS states: Toned out by home health nurse for low blood glucose, BGL jl7 on arrival was 34, oral glucose given, current bgl 134. Pt reports pain to legs and neck. Coronavirus screen: At this time, the client does not indicate any symptoms associated with coronavirus-19. Ebola Screen: No symptoms or risks identified at this time. Initial Sepsis Screen: Does the patient meet any 2 criteria? No. Patient's initial sepsis screen is negative. Does the patient have a suspected source of infection? No. Patient's initial sepsis screen is negative. Risk Assessment: Do you want to hurt yourself or someone else? Patient reports no desire to harm self or others. Onset of symptoms was December 17, 2021. Care prior to arrival: Glucose check: 34. Care prior to arrival: IV initiated. 22 GA, in the left hand, Glucose check: 134. 14:37 Method Of Arrival: EMS: [facility] 14:37 Acuity: DARREL 3 jl7 Triage Assessment: 14:41 General: Appears in no apparent distress. uncomfortable, Behavior is calm, cooperative, jl7 appropriate for age. Pain: Complains of pain in right leg, left leg and neck Pain currently is 9 out of 10 on a pain scale. Neuro: Level of Consciousness is awake, alert, obeys commands, Oriented to person, place, time. Cardiovascular: Patient's skin is warm and dry. Respiratory: Airway is patent Respiratory effort is even, unlabored, Respiratory pattern is regular, symmetrical. Derm: Skin is pink, warm \T\ dry. Historical: - Allergies: 14:41 Haldol (Anaphylaxis); jl7 14:41 Narcan (Anaphylaxis); jl7 - PMHx: 14:41 ADD/ADHD; Anxiety; Bipolar disorder; Cellulitis; Chronic pain; Congestive heart jl7 failure; CVA; Diabetes - IDDM; Hypertension; neuropathy; Parkinson's disease; Schizophrenia; Seizures; unstable angina; - Immunization history:: Adult Immunizations unknown. - Social history:: Smoking status: Patient reports the use of cigarette tobacco products, denies chronic smoking, but will smoke occasionally. - Family history:: not pertinent. - Hospitalizations: : No recent hospitalization is reported. Screenin:45 Abuse screen: Denies threats or abuse. Denies injuries from another. Nutritional jh6 screening: No deficits noted. 14:45 Tuberculosis screening: No symptoms or risk factors identified. Fall Risk IV access (20 jh6 points). Ambulatory Aid- None/Bed Rest/Nurse Assist (0 pts). Assessment: 14:40 General: See triage assessment. tp1 14:45 General: Appears in no apparent distress. comfortable, Behavior is calm, cooperative. jh6 14:45 Pain: Complains of pain in back Pain currently is 8 out of 10 on a pain scale. Quality jh6 of pain is described as aching, shooting, Pain began years ago. Is continuous. Neuro: No deficits noted. Level of Consciousness is awake, alert, obeys commands, Oriented to person, place, time, situation. Respiratory: No deficits noted. 15:30 General: pt states that he is not going to ct unless he get pain meds. stated that he jh6 took tramadol at home but is not helping. . 17:10 Reassessment: No changes from previously documented assessment. Patient and/or family jh6 updated on plan of care and expected duration. Pain level reassessed. pt stating that he wanting to go home that he feels better and that he doesn't want to have any futher test done. advised provider that pt is wanting to leave. pt has been able to eat pudding and most f ham and cheese sandwich. Vital Signs: 14:37 BP 169 / 101; Pulse 66; Resp 15; Temp 97.9; Pulse Ox 96% on R/A; Weight 97.52 kg; jl7 Height 6 ft. 0 in. (182.88 cm); Pain 9/10; 15:52 BP 184 / 93; Pulse 65; Resp 15; Pulse Ox 95% ; jl7 17:28 BP 177 / 84; Pulse 65; Resp 18; Pulse Ox 98% ; Pain 7/10; jh6 14:37 Body Mass Index 29.16 (97.52 kg, 182.88 cm) 7 ED Course: 14:37 Patient arrived in ED. jl7 14:39 Tayo Rivas MD is Attending Physician. rn 14:40 Client placed on continuous cardiac and pulse oximetry monitoring. NIBP monitoring tp1 applied. 14:41 Triage completed. jl7 14:41 Arm band placed on right wrist. jl7 14:45 Bed in low position. Call light in reach. Side rails up X2. jh6 14:45 Maintain EMS IV. Dressing intact. Good blood return noted. Site clean \T\ dry. Gauge \T\ jh 6 site: 22 l hand. 15:15 EKG done, by ED staff, COVID swab sent to lab. tp1 15:35 Ericka Richards, RN is Primary Nurse. 6 15:37 No provider procedures requiring assistance completed. 6 15:53 José Antonio Todd, RN is Primary Nurse. jl7 17:15 IV discontinued, intact, bleeding controlled, No redness/swelling at site. Pressure jh6 dressing applied. Administered Medications: No medications were administered Medication: 15:36 VIS not applicable for this client. 6 Outcome: 17:20 Discharged to home via wheelchair. 6 17:20 Condition: stable 17:20 Discharge instructions given to patient, Instructed on discharge instructions, 6 Demonstrated understanding of instructions, follow-up care. 18:01 Discharge ordered by . rn 18:31 Patient left the ED. [facility] Signatures: Tayo Rivas MD MD rn Leal, Jahala, RN RN 7 Ericka Richards, MALU TORIBIO 6 AriasRosarioCheri tp1
[2021-12-17 18:47] VITALS: TEMP 97.9
[2021-12-17 18:51] VITALS: BP 177/84; O2SAT 98
--- NOTE | 2021-12-18 08:22 | EKG ---
Test Date: 2021-12-17 Test Time: 14:51:32 Director Child Abuse Therapy: TP MEASUREMENT RESULTS: Intervals: Rate: 66 DE: 172 QRSD: 106 QT: 480 QTc: 503 [place]: P: 44 DE: 172 QRS: -37 T: 47 INTERPRETIVE STATEMENTS: Normal sinus rhythm Left axis deviation Cannot rule out Anterior infarct, age undetermined Prolonged QT Abnormal ECG Compared to ECG 10/20/2021 19:19:02 Left-axis deviation now present Myocardial infarct finding now present T-wave abnormality no longer present Electronically Signed On 12-18-21 08:18:29 CDT by Tyler Gomez
== END 2021-12-17 18:31 | disposition home or self-care (01) ==
LOC: ER 14:31
DX: E11.649 Type 2 diabetes mellitus with hypoglycemia without coma (principal); R10.9 Unspecified abdominal pain; F17.210 Nicotine dependence, cigarettes, uncomplicated; Z20.822 Contact with and (suspected) exposure to COVID-19; I10 Essential (primary) hypertension; I50.9 Heart failure, unspecified; Z88.5 Allergy status to narcotic agent
CPT/HCPCS: 93005; 85025; 36415; 82947 ×2; 83690; 80053; 99283; U0003

== ENCOUNTER 2021-12-25 08:29 | Emergency (ER) | payer OTHER ==
[2021-12-25 09:02] LABS: Lymphocytes % 20.5 % (15.3-44.8); MPV 7.3 fL (7.6-11.3); RBC Red Blood Cell Count 2.72 M/uL (4.33-5.43)
[2021-12-25] MEDS ORDERED: HYDRALAZINE HCL 20 MG/ML VIAL ONE (09:04)
[2021-12-25 09:05] LABS: Protime INR 1.31
--- NOTE | 2021-12-25 09:25 | RAD REPORT ---
EXAM DESCRIPTION: Kaylene Single View12/25/2021 9:18 am CLINICAL HISTORY: Confusion COMPARISON: November 2021 FINDINGS: The lungs appear clear of acute infiltrate. The heart is normal size IMPRESSION: No acute abnormalities displayed
[2021-12-25 09:26] LABS: Albumin 2.8 g/dL (3.4-5.0); Bilirubin Direct 0.1 mg/dL (0-0.2); Bilirubin Total 0.3 mg/dL (0.2-1.0); Magnesium 1.5 mg/dL (1.8-2.4); Potassium 4.2 mmol/L (3.5-5.1); Protein, Total 7.2 g/dL (6.4-8.2); Troponin High Sensitivity 12.4 pg/mL (<58.9)
--- NOTE | 2021-12-25 09:28 | RAD REPORT ---
EXAM DESCRIPTION: CT - Head Brain Wo Cont - 12/25/2021 9:18 am CLINICAL HISTORY: Alteration of awareness/confusion COMPARISON: October 2021 TECHNIQUE: Computed axial tomography of the head was obtained. IV contrast was not requested. All CT scans are performed using dose optimization technique as appropriate and may include automated exposure control or mA/KV adjustment according to patient size. FINDINGS: An intracranial bleed is not seen . The ventricles are normal in caliber. No extra-axial fluid collection is noted. Right eye prosthesis Fluid within the sinuses/ mastoids is not seen. IMPRESSION: No acute intracranial abnormality is seen. If patient's symptoms persist MRI of the bra in would be recommended.
--- NOTE | 2021-12-25 09:57 | EDPHYS ---
Physician Documentation [facility] Name: Gasper Fry Age: 61 yrs Sex: Male : 1960 Arrival Date: 12/25/2021 Time: 08:34 Bed 2 Private MD: ED Physician Yoni Ortiz HPI: 12/25 09:42 This 61 yrs old Male presents to ER via Wheelchair with complaints of AMS. jmm 09:42 The patient presents with decreased mental status. Onset: The symptoms/episode jmm began/occurred 1 day(s) ago. Possible causes: hepatic encephalopathy. Associated signs and symptoms: Pertinent negatives: abdominal pain. Current symptoms: In the emergency department the patient's symptoms are unchanged from the initial presentation. 09:42 This is a 61-year-old male with history of anxiety, bipolar, chronic pain, jmm schizophrenia, liver cirrhosis the presents emerged department with altered mental status. Patient was seen at [facility] for similar episode and discharged on the ER. Patient was initially seen at the wound care department and due to decreased responsiveness sent to the ER.. Historical: - Allergies: 08:43 Haldol (Anaphylaxis); hickey - Home Meds: 08:43 Adderall XR 30 mg Oral cp24 1 cap twice a day [Active]; amlodipine 10 mg tab 1 tab once hickey daily [Active]; atorvastatin 40 mg Oral tab 1 tab once daily [Active]; benztropine 0.5 mg Oral tab 1 tab 2 times per day [Active]; Cogentin Oral 0.5 mg twice a day [Active]; Depakote 500 mg Oral TbEC [Active]; Eliquis 5 mg Oral tab 1 tab 2 times per day [Active]; Farxiga 5 mg Oral tab 1 tab once daily [Active]; glipizide 2.5 mg Oral tr24 [Active]; Glucophage Oral [Active]; hydrocodone-acetaminophen 10-325 mg Oral tab 1 tab twice a day [Active]; isosorbide [Active]; Klonopin 0.5 mg Oral tab 1 tab 2 times per day [Active]; Lexapro 10 mg Oral tab [Active]; losartan 50 mg Oral tab 1 tab once daily [Active]; metoprolol tartrate 25 mg Oral tab [Active]; Novolin 70/30 Innolet 45 units Sub-Q 45 units twice a day with meals [Active]; Risperdal 4 mg Oral tab 1 tab 2 times per day [Active]; sodium bicarbonate 650 mg Oral tab [Active]; tamsulosin 0.4 mg Oral cap [Active]; tramadol 50 mg Oral tab 1 tab twice a day [Active]; Victoza 2-Reid subcutaneous [Active]; - PMHx: 08:43 ADD/ADHD; Anxiety; Bipolar disorder; Cellulitis; Chronic pain; Congestive heart hickey failure; CVA; Diabetes - IDDM; Hypertension; neuropathy; Parkinson's disease; Schizophrenia; Seizures; unstable angina; - Immunization history:: Adult Immunizations unknown. - Social history:: Smoking status: unknown. ROS: 09:42 Constitutional: Negative for fever, chills, and weight loss, Cardiovascular: Negative jmm for chest pain, palpitations, and edema, Respiratory: Negative for shortness of breath, cough, wheezing, and pleuritic chest pain. 09:42 MS/extremity: Positive for pain. 09:42 All other systems are negative. Exam: 09:42 Head/Face: atraumatic. Eyes: EOMI, no conjunctival erythema appreciated ENT: Moist jmm Mucus Membranes Neck: Trachea midline, Supple Chest/axilla: Normal chest wall appearance and motion. 09:42 Abdomen/GI: Non distended Back: Normal ROM 09:42 Cardiovascular: Rate: normal, Rhythm: regular. 09:42 Respiratory: the patient does not display signs of respiratory distress, Respirations: normal, Breath sounds: are clear throughout. 09:42 Skin: Appearance: Color: normal in color. 09:42 Neuro: Orientation: Mentation: able to follow commands, Memory: is normal. 09:42 Psych: Behavior/mood is pleasant, cooperative. Vital Signs: 08:36 BP 212 / 104; Pulse 95; Resp 19; Temp 98.1(O); Pulse Ox 99% on R/A; Weight 97.52 kg; hickey Height 5 ft. 9 in. (175.26 cm); 09:09 BP 174 / 99; Pulse 95; Resp 19; Pulse Ox 99% on R/A; hickey 09:32 BP 183 / 78; Pulse 99; Resp 19; Pulse Ox 100% on R/A; hickey 11:04 BP 149 / 93; Pulse 105; Resp 19; Pulse Ox 94% on R/A; hickey 08:36 Body Mass Index 31.75 (97.52 kg, 175.26 cm) hickey MDM: 08:39 Patient medically screened. [facility] 09:49 ED course: Patient awoke, putting his shirt on. Refusing to stay in the ED. Patient almitacorina threatened to assault staff. Refused to take his IV out. Patient is a x o x 3 upon elopement.. 10:10 ED course: Patient's IV was removed. Patient returns to the ED.. [facility] 11:15 Data reviewed: vital signs, nurses notes. Counseling: I had a detailed discussion with alejandro the patient and/or guardian regarding: the historical points, exam findings, and any diagnostic results supporting the discharge/admit diagnosis, lab results, the need for outpatient follow up, to return to the emergency department if symptoms worsen or persist or if there are any questions or concerns that arise at home. 11:39 ED course: Patient requested pain medication. Refused tylenol. Patient became upset and alejandro requested to leave. Patient is currently a x o x 3. Advised to follow up with wound care upon discharge. . 12/25 08:35 Order name: glucometer results - FOR PT WITH NO ID; Complete Time: 11:10 aa9 12/25 08:42 Order name: Basic Metabolic Panel; Complete Time: 09:27 [facility] 12/25 08:42 Order name: CBC with Diff; Complete Time: 09:09 [facility] 12/25 08:42 Order name: LFT's; Complete Time: 09:27 [facility] 12/25 08:42 Order name: Magnesium; Complete Time: 09:27 [facility] 12/25 08:42 Order name: NT PRO-BNP; Complete Time: 09:27 [facility] 12/25 08:42 Order name: PT-INR; Complete Time: 09:08 [facility] 12/25 08:42 Order name: Troponin HS; Complete Time: 09:27 [facility] 12/25 08:43 Order name: AMMONIA; Complete Time: 09:28 [facility] 12/25 08:43 Order name: Blood Culture Adult (2) [facility] 12/25 09:08 Order name: Urine Drug Screen [facility] 12/25 10:03 Order name: ETOH Level; Complete Time: 10:53 [facility] 12/25 10:55 Order name: Urine Dipstick-Ancillary; Complete Time: 11:10 [facility] 12/25 08:42 Order name: XRAY Chest (1 view); Complete Time: 09:26 [facility] 12/25 08:42 Order name: EKG; Complete Time: 08:43 [facility] 12/25 08:42 Order name: Cardiac monitoring; Complete Time: 08:56 [facility] 12/25 08:42 Order name: EKG - Nurse/Tech; Complete Time: 09:09 [facility] 12/25 08:42 Order name: IV Saline Lock; Complete Time: 08:56 [facility] 12/25 08:42 Order name: Labs collected and sent; Complete Time: 08:56 [facility] 12/25 08:42 Order name: O2 Per Protocol; Complete Time: 08:56 [facility] 12/25 08:42 Order name: O2 Sat Monitoring; Complete Time: 08:56 [facility] 12/25 08:43 Order name: CT Head Brain wo Cont; Complete Time: 09:33 [facility] 12/25 08:44 Order name: Urine Dipstick-Ancillary (obtain specimen); Complete Time: 11:07 [facility] Administered Medications: 09:09 Drug: hydrALAZINE 10 mg Route: IVP; Site: left antecubital; hickey 09:09 Follow up: Response: No adverse reaction hickey Disposition: 14:09 Co-signature as Attending Physician, Yoni Ortiz DO I was immediately available on-site ms3 in the Emergency Department for consultation in the care of the patient. . Disposition Summary: 12/25/21 11:15 Discharge Ordered Location: Home(12/25/21 11:15) [facility] Condition: Stable(12/25/21 11:15) [facility] Diagnosis - Altered mental status, unspecified [facility] Followup: [facility] - With: Private Physician - When: 1 - 2 days - Reason: Recheck today's complaints, Continuance of care, Re-evaluation by your physician Discharge Instructions: - Discharge Summary Sheet jm - Confusion [facility] Forms: - Medication Reconciliation Form [facility] - Thank You Letter jm - Antibiotic Education jmm - Prescription Opioid Use [facility] Signatures: Dispatcher [employer] EDMS Steven aGndhi PA PA jmm Sims, Marcus, DO DO ms3 Jolene Clemons RN RN hickey Corrections: (The following items were deleted from the chart) 10:04 09:56 Home hickey jmm 10:04 09:56 Stable hickey jmm
--- NOTE | 2021-12-25 09:57 | ER ---
Nurse's Notes [facility] Name: Gasper Fry Age: 61 yrs Sex: Male : 1960 Arrival Date: 12/25/2021 Time: 08:34 Bed 2 Private MD: Diagnosis: Altered mental status, unspecified Presentation: 12/25 08:36 Chief complaint: per wound care nurse pt was dropped off by brother for wound care hickey appt. pt was presented with AMS. [facility] 12[facility] for AMS and was sent home. Coronavirus screen: At this time, unable to obtain information related to travel outside the [place] Ebola Screen: Unable to complete the Ebola screening because:. Initial Sepsis Screen: Does the patient meet any 2 criteria? Altered Mental Status. HR > 90 bpm. Does the patient have a suspected source of infection? Yes: Skin breakdown/wound. Risk Assessment: Do you want to hurt yourself or someone else? Patient reports no desire to harm self or others. Onset of symptoms was December 24, 2021. 08:36 Method Of Arrival: Wheelchair hickey 08:36 Acuity: DARREL 2 hickey Triage Assessment: 08:43 General: Appears uncomfortable, Behavior is drowsy, uncooperative. Pain: Unable to use hickey pain scale. Historical: - Allergies: 08:43 Haldol (Anaphylaxis); hickey - Home Meds: 08:43 Adderall XR 30 mg Oral cp24 1 cap twice a day [Active]; amlodipine 10 mg tab 1 tab once hickey daily [Active]; atorvastatin 40 mg Oral tab 1 tab once daily [Active]; benztropine 0.5 mg Oral tab 1 tab 2 times per day [Active]; Cogentin Oral 0.5 mg twice a day [Active]; Depakote 500 mg Oral TbEC [Active]; Eliquis 5 mg Oral tab 1 tab 2 times per day [Active]; Farxiga 5 mg Oral tab 1 tab once daily [Active]; glipizide 2.5 mg Oral tr24 [Active]; Glucophage Oral [Active]; hydrocodone-acetaminophen 10-325 mg Oral tab 1 tab twice a day [Active]; isosorbide [Active]; Klonopin 0.5 mg Oral tab 1 tab 2 times per day [Active]; Lexapro 10 mg Oral tab [Active]; losartan 50 mg Oral tab 1 tab once daily [Active]; metoprolol tartrate 25 mg Oral tab [Active]; Novolin 70/30 Innolet 45 units Sub-Q 45 units twice a day with meals [Active]; Risperdal 4 mg Oral tab 1 tab 2 times per day [Active]; sodium bicarbonate 650 mg Oral tab [Active]; tamsulosin 0.4 mg Oral cap [Active]; tramadol 50 mg Oral tab 1 tab twice a day [Active]; Victoza 2-Reid subcutaneous [Active]; - PMHx: 08:43 ADD/ADHD; Anxiety; Bipolar disorder; Cellulitis; Chronic pain; Congestive heart hickey failure; CVA; Diabetes - IDDM; Hypertension; neuropathy; Parkinson's disease; Schizophrenia; Seizures; unstable angina; - Immunization history:: Adult Immunizations unknown. - Social history:: Smoking status: unknown. Screenin:44 Abuse screen: Denies threats or abuse. Denies injuries from another. Nutritional hickey screening: No deficits noted. Tuberculosis screening: No symptoms or risk factors identified. Fall Risk Gait- Impaired (20 pts.). Mental Status- Overestimates/Forgets Limitations (15 pts.). Assessment: 08:45 General: Appears in no apparent distress. Behavior is drowsy. Pain: Unable to use pain hickey scale. Neuro: Level of Consciousness is lethargic, Oriented to none. 09:53 Reassessment: pt woke up, got dressed, threaten ED MD and staff that he will break hickey every bone of their if we come close to him. pt left ED with IV on the LAC. police was called. 11:03 Reassessment: pt returned to ED with ED director. pt continues to be agitated and hickey curing at staff. Vital Signs: 08:36 BP 212 / 104; Pulse 95; Resp 19; Temp 98.1(O); Pulse Ox 99% on R/A; Weight 97.52 kg; hickey Height 5 ft. 9 in. (175.26 cm); 09:09 BP 174 / 99; Pulse 95; Resp 19; Pulse Ox 99% on R/A; hickey 09:32 BP 183 / 78; Pulse 99; Resp 19; Pulse Ox 100% on R/A; hickey 11:04 BP 149 / 93; Pulse 105; Resp 19; Pulse Ox 94% on R/A; hickey 08:36 Body Mass Index 31.75 (97.52 kg, 175.26 cm) hickey ED Course: 08:34 Patient arrived in ED. hickey 08:38 Steven Gandhi PA is PHCP. alejandro 08:38 Yoni Ortiz DO is Attending Physician. jmm 08:39 Triage completed. hickey 08:42 Jolene Clemons, MALU is Primary Nurse. hickey 08:44 Patient has correct armband on for positive identification. Bed in low position. hickey 08:44 No provider procedures requiring assistance completed. hickey 08:59 Inserted saline lock: 20 gauge in left antecubital area, using aseptic technique. hickey Patient maintains SpO2 saturation greater than 95% on room air. 09:00 Arm band placed on. EKG completed in triage. Results shown to MD. hickey 09:20 XRAY Chest (1 view) In Process Unspecified. EDMS 09:20 CT Head Brain wo Cont In Process Unspecified. EDMS 10:02 Primary Nurse role handed off by Jolene Clemons RN jm 10:11 Jolene Clemons RN is Primary Nurse. hickey 10:19 ETOH Level Sent. bp 10:28 Client placed on continuous cardiac and pulse oximetry monitoring. NIBP monitoring bp applied. Warm blanket given. Head of bed. Assisted with urinal. URINAL GIVEN PT STATES HE IS NOT READY TO VOID. Administered Medications: 09:09 Drug: hydrALAZINE 10 mg Route: IVP; Site: left antecubital; hickey 09:09 Follow up: Response: No adverse reaction hickey Medication: 09:00 VIS not applicable for this client. hickey Outcome: 09:57 Patient left the ED. hickey 11:15 Discharge ordered by . alejandro 11:27 Patient left the ED. hickey Signatures: Dispatcher [employer] EDMS Steven Gandhi PA PA jmm Peltier, Brian, RN RN bp Jolene Clemons RN RN ha Corrections: (The following items were deleted from the chart) 11:06 09:54 Condition: stable hickey hickey 11:06 09:54 AMA Left before signing form, hickey hickey
[2021-12-25 10:24] VITALS: TEMP 98.1
[2021-12-25 10:55] LABS: Urine Blood 1+ (Negative); Urine Glucose Trace (Negative); Urine Protein 3+ (Negative); Urine Specific Gravity 1.025 (1.005-1.030)
[2021-12-25] MEDS ORDERED: ACETAMINOPHEN 500 MG TAB ONE (11:04)
[2021-12-25 11:35] LABS: Barbiturates NEGATIVE (NEGATIVE); Benzodiazepines NEGATIVE (NEGATIVE); Cocaine NEGATIVE (NEGATIVE); METHAMPHETAM POSITIVE (NEGATIVE); Methadone NEGATIVE (NEGATIVE); Opiates NEGATIVE (NEGATIVE); Phencyclidine NEGATIVE (NEGATIVE); THC Cannibis NEGATIVE (NEGATIVE)
[2021-12-25 11:48] VITALS: BP 149/93; O2SAT 94
--- NOTE | 2021-12-26 07:24 | EKG ---
Test Date: 2021-12-25 Test Time: 09:03:35 Door Fitter: CALEB MEASUREMENT RESULTS: Intervals: Rate: 94 DE: 176 QRSD: 100 QT: 382 QTc: 477 [place]: P: DE: 176 QRS: -28 T: 125 INTERPRETIVE STATEMENTS: Normal sinus rhythm Possible Anterior infarct, age undetermined Abnormal ECG Compared to ECG 12/25/2021 09:02:57 Accelerated junctional rhythm no longer present Myocardial infarct finding still present Electronically Signed On 12-26-21 07:20:43 CDT by Tyler Gomez
--- NOTE | 2021-12-26 07:24 | EKG ---
Test Date: 2021-12-25 Test Time: 09:02:57 International Marketing Manager: CALEB MEASUREMENT RESULTS: Intervals: Rate: 94 IA: QRSD: 96 QT: 368 QTc: 460 [place]: P: IA: QRS: -28 T: 54 INTERPRETIVE STATEMENTS: Accelerated Junctional rhythm Anterior infarct, age undetermined Abnormal ECG Compared to ECG 12/17/2021 14:51:32 Accelerated junctional rhythm now present Sinus rhythm no longer present Left-axis deviation no longer present Prolonged QT interval no longer present Myocardial infarct finding still present Electronically Signed On 12-26-21 07:20:44 CDT by Tyler Gomez
--- OUTSIDE RECORDS SUMMARY | 2021-12-27 14:06 | XMS REPORT | Clinical Summary ---
:1960 Author Organization [facility] MD [facility] Address [address] [place] [address] Care Team Providers Name Role Phone Unavailable [...] Date Last Done Comments COVID-19 Vaccination (#1) 1960 Results Not on fileafter 12/25/2020 Insurance Payer Benefit Plan / Subscriber ID Effective Phone Address T ype Group Dates MEDICARE MEDICARE PART A [id number] 2004-Pres [phone] [facility] Medicare AND B ent [id number] [place] [address] [place] [id number] 2018-Pres [address] Medicaid TRADITIONAL TRADITIONAL ent [id number] [place] [address] Advance Directives Code Status Date Activated Date Inactivated Comments Full Code 12/19/2018 10:01 AM 12/25/2018 1:04 PM
--- OUTSIDE RECORDS SUMMARY | 2021-12-27 14:08 | XMS REPORT | Continuity of Care Document ---
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 2020-06 Yes [id number] 10mg Take 1 [facility] [place] 10 mg 1-04 tablet by ity of tablet 00:00: mouth at [place] bedtime. Medical Branch DULoxetine 2020-06 Yes [id number] 40mg Take 40 mg [facility] 40 mg CpDR 1-04 by mouth ity o f 00:00: daily. Medical Branch benztropine 2020-06 Yes .5mg Take 0.5 [facility] [place] 1 mg tablet 1-04 tablets by it y of 00:00: mouth 2 (two) Medical times [place] daily. amLODIPine 2020-06 Yes [id number] 10mg Take 1 [facility] [place] 10 mg 1-04 tablet by ity of tablet 00:00: mouth at [place] bedtime. Medical Branch DULoxetine 2020-06 Yes [id number] 40mg Take 40 mg [facility] 40 mg CpDR 1-04 by mouth ity o f 00:00: daily. Medical Branch benztropine 2020-06 Yes .5mg Take 0.5 [facility] [place] 1 mg tablet 1-04 tablets by it y of 00:00: mouth 2 [place] 00 (two) Medical times Branch daily. amLODIPine 2020-06 Yes [id number] 10mg Take 1 [facility] 10 mg 1-04 tablet by ity of tablet 00:00: mouth at [place] 00 bedtime. Medical Branch DULoxetine 2020-06 Yes [id number] 40mg Take 40 mg [facility] 40 mg CpDR 1-04 by mouth ity o f 00:00: daily. Medical Branch benztropine 2020-06 Yes .5mg Take 0.5 [facility] [place] 1 mg tablet 1-04 tablets by it y of 00:00: mouth 2 00 (two) Medical times Branch daily. amLODIPine 2020-06 Yes [id number] 10mg Take 1 [facility] [place] 10 mg 1-04 tablet by ity of tablet 00:00: mouth at [place] 00 bedtime. Medical Branch DULoxetine 2020-06 Yes [id number] 40mg Take 40 mg [facility] 40 mg CpDR 1-04 by mouth ity o f 00:00: daily. Medical Branch sodium 2020-06- No [id number] 650mg Take 1 [facility] bicarbonate 1-04 06-16 5 tablet by it y of 650 mg 00:00: 00:00 mouth 2 [place] tablet 00 :00 (two) Medical times Branch daily. sodium 2020-06- No [id number] 650mg Take 1 [facility] bicarbonate 1-04 06-16 5 tablet by it y of 650 mg 00:00: 00:00 mouth 2 [place] tablet 00 :00 (two) Medical times Branch daily. atorvastati 2020-06 Yes [id number] 40mg Take 1 Univers n (LIPITOR) 1-01 tablet by ity of 40 mg 00:00: mouth at [place] tablet 00 bedtime. Medical Branch atorvastati 2020-06 Yes [id number] 40mg Take 1 [facility] n (LIPITOR) 1-01 tablet by ity of 40 mg 00:00: mouth at [place] tablet 00 bedtime. Medical Branch atorvastati 2020-06 Yes [id number] 40mg Take 1 [facility] n (LIPITOR) 1-01 tablet by ity of 40 mg 00:00: mouth at [place] tablet 00 bedtime. Medical Branch atorvastati 2020-06 Yes [id number] 40mg Take 1 [facility] n (LIPITOR) 1-01 tablet by ity of 40 mg 00:00: mouth at [place] tablet 00 bedtime. Medical Branch atorvastati 2020-06 Yes [id number] 40mg Take 1 [facility] n (LIPITOR) 1-01 tablet by ity of 40 mg 00:00: mouth at [place] tablet 00 bedtime. Medical Branch atorvastati 2020-06 Yes [id number] 40mg Take 1 [facility] n (LIPITOR) 1-01 tablet by ity of 40 mg 00:00: mouth at [place] tablet 00 bedtime. Medical Branch bumetanide 2020-06- No [id number] 2mg Take 2 [facility] 1 mg tablet 0-25 06-16 02 tablets by i ty of 00:00: 00:00 mouth 2 [place] 00 :00 (two) Medical times Branch daily. bumetanide 2020-06- No [id number] 2mg Take 2 [facility] 1 mg tablet 0-25 06-16 02 tablets by i ty of 00:00: 00:00 mouth 2 [place] 00 :00 (two) Medical times Branch daily. amitriptyli Yes [id number] 10mg Take 1 [facility] ne 10 mg 9-21 tablet by ity of tablet 00:00: mouth at [place] 00 bedtime. Medical Branch amitriptyli Yes [id number] 10mg Take 1 [facility] ne 10 mg 9-21 tablet by ity of tablet 00:00: mouth at [place] 00 bedtime. Medical Branch amitriptyli Yes [id number] 10mg Take 1 [facility] ne 10 mg 9-21 tablet by ity of tablet 00:00: mouth at [place] 00 bedtime. Medical Branch amitriptyli Yes [id number] 10mg Take 1 [facility] ne 10 mg 9-21 tablet by ity of tablet 00:00: mouth at [place] 00 bedtime. Medical Branch amitriptyli Yes [id number] 10mg Take 1 [facility] ne 10 mg 9-21 tablet by ity of tablet 00:00: mouth at [place] 00 bedtime. Medical Branch amitriptyli Yes [id number] 10mg Take 1 [facility] ne 10 mg 9-21 tablet by ity of tablet 00:00: mouth at [place] 00 bedtime. Medical Branch ADVAIR Yes [id number] INHALE 1 [facility] DISKUS 9-03 PUFF BY ity of 250-50 00:00: MOUTH INTO [place] mcg/dose 00 THE LUNGS Medica l inhalation TWICE Branch disk DAILY ADVAIR Yes [id number] INHALE 1 [facility] [place] DISKUS 9-03 PUFF BY ity of 250-50 00:00: MOUTH INTO [place] mcg/dose 00 THE LUNGS Medica l inhalation TWICE Branch disk DAILY ADVAIR Yes [id number] INHALE 1 [facility] [place] DISKUS 9-03 PUFF BY ity of 250-50 00:00: MOUTH INTO [place] mcg/dose 00 THE LUNGS Medica l inhalation TWICE Branch disk DAILY ADVAIR Yes [id number] INHALE 1 [facility] [place] DISKUS 9-03 PUFF BY ity of 250-50 00:00: MOUTH INTO [place] mcg/dose 00 THE LUNGS Medica l inhalation TWICE Branch disk DAILY ADVAIR Yes [id number] INHALE 1 [facility] [place] DISKUS 9-03 PUFF BY ity of 250-50 00:00: MOUTH INTO [place] mcg/dose 00 THE LUNGS Medica l inhalation TWICE Branch disk DAILY ADVAIR Yes [id number] INHALE 1 [facility] [place] DISKUS 9-03 PUFF BY ity of 250-50 00:00: MOUTH INTO [place] mcg/dose 00 THE LUNGS Medica l inhalation TWICE Branch disk DAILY bacitracin- 2021- No [id number] Apply to [facility] polymyxin B 02-08 area(s) 2 it y of 500-10,000 00:00: 00:00 (two) [place] unit/gram 00 :00 times Medical topical daily. Branch ointment bacitracin- 2021- No [id number] Apply to [facility] polymyxin B 02-08 area(s) 2 it y of 500-10,000 00:00: 00:00 (two) [place] unit/gram 00 :00 times Medical topical daily. Branch ointment carvediloL Yes [id number] 25mg Take 1 [facility] 25 mg 8-30 tablet by ity of tablet 00:00: mouth 2 (two) Medical times Branch daily with meals. ergocalcife 0 Yes [id number] 62278P Take 1 [facility] rol, 8-30 capsule by ity of vitamin d2, 00:00: mouth [place] 1,250 mcg 00 weekly. Medical (50,000 Branch unit) capsule pantoprazol 0 Yes [id number] 40mg Take 1 [facility] e 40 mg EC 8-30 tablet by ity of tablet 00:00: mouth 2 (two) Medical times Branch daily. Sennosides Yes [id number] 17.2mg Take 17.2 [facility] 17.2 mg Tab 8-30 mg by ity of 00:00: mouth (two) Medical times Branch daily. albuterol 0 Yes [id number] INHALE 2 Univers 90 8-30 PUFFS INTO ity of mcg/actuati 00:00: THE LUNGS [place] on inhaler 00 THREE Medical TIMES Branch DAILY NEEDED FOR SHORTNESS OF BREATH apixaban 0 Yes [id number] 5mg Take 1 Univers (ELIQUIS) 5 8-30 tablet by ity of mg tablet 00:00: mouth [place] (two) Medical times Branch daily. Indication s: atrial fibrillati on, a fib and DVT tamsulosin 0 Yes [id number] .4mg Take 1 [facility] 0.4 mg 24 8-30 capsule by ity of hr capsule 00:00: mouth 2 [facility] (two) Medical times Branch daily. carvediloL Yes [id number] 25mg Take 1 [facility] 25 mg 8-30 tablet by ity of tablet 00:00: mouth 2 (two) Medical times Branch daily with meals. ergocalcife 0 Yes [id number] 33661E Take 1 [facility] rol, 8-30 capsule by ity of vitamin d2, 00:00: mouth [place] 1,250 mcg 00 weekly. Medical (50,000 Branch unit) capsule pantoprazol 0 Yes [id number] 40mg Take 1 [facility] e 40 mg EC 8-30 tablet by ity of tablet 00:00: mouth 2 [place] (two) Medical times Branch daily. Sennosides Yes [id number] 17.2mg Take 17.2 [facility] 17.2 mg Tab 8-30 mg by ity of 00:00: mouth 2 [place] (two) Medical times Branch daily. albuterol Yes [id number] INHALE 2 [facility] 90 8-30 PUFFS INTO ity of mcg/actuati 00:00: THE LUNGS [place] on inhaler 00 THREE Medical TIMES Branch DAILY NEEDED FOR SHORTNESS OF BREATH apixaban Yes [id number] 5mg Take 1 [facility] (ELIQUIS) 5 8-30 tablet by ity of mg tablet 00:00: mouth 2 [place] (two) Medical times Branch daily. Indication s: atrial fibrillati on, a fib and DVT tamsulosin Yes [id number] .4mg Take 1 [facility] 0.4 mg 24 8-30 capsule by ity of hr capsule 00:00: mouth 2 [facility] s (two) Medical times Branch daily. carvediloL Yes [id number] 25mg Take 1 [facility] 25 mg 8-30 tablet by ity of tablet 00:00: mouth 2 [place] (two) Medical times Branch daily with meals. ergocalcife Yes [id number] Take 1 [facility] rol, 8-30 capsule by ity of vitamin d2, 00:00: mouth [place] 1,250 mcg 00 weekly. Medical (50,000 Branch unit) capsule pantoprazol Yes [id number] 40mg Take 1 [facility] e 40 mg EC 8-30 tablet by ity of tablet 00:00: mouth 2 [place] (two) Medical times Branch daily. Sennosides Yes [id number] 17.2mg Take 17.2 [facility] 17.2 mg Tab 8-30 mg by ity of 00:00: mouth 2 [place] 00 (two) Medical times Branch daily. albuterol Yes [id number] INHALE 2 [facility] 90 8-30 PUFFS INTO ity of mcg/actuati 00:00: THE LUNGS [place] on inhaler 00 THREE Medical TIMES Branch DAILY NEEDED FOR SHORTNESS OF BREATH apixaban 0 Yes [id number] 5mg Take 1 [facility] (ELIQUIS) 5 8-30 tablet by ity of mg tablet 00:00: mouth (two) Medical times Branch daily. Indication s: atrial fibrillati on, a fib and DVT tamsulosin Yes [id number] .4mg Take 1 [facility] 0.4 mg 24 8-30 capsule by ity of hr capsule 00:00: mouth 2 [place] (two) Medical times Branch daily. carvediloL 0 Yes [id number] 25mg Take 1 [facility] 25 mg 8-30 tablet by ity of tablet 00:00: mouth (two) Medical times Branch daily with meals. ergocalcife 0 Yes [id number] 02458H Take 1 [facility] rol, 8-30 capsule by ity of vitamin d2, 00:00: mouth [place] 1,250 mcg 00 weekly. Medical (50,000 Branch unit) capsule pantoprazol Yes [id number] 40mg Take 1 [facility] e 40 mg EC 8-30 tablet by ity of tablet 00:00: mouth (two) Medical times Branch daily. Sennosides Yes [id number] 17.2mg Take 17.2 Univers 17.2 mg Tab 8-30 mg by ity of 00:00: mouth (two) Medical times Branch daily. albuterol Yes [id number] INHALE 2 [facility] 90 8-30 PUFFS INTO [...] a fib and DVT tamsulosin 0 Yes [id number] .4mg Take 1 [facility] 0.4 mg 24 8-30 capsule by ity of hr capsule 00:00: mouth 2 [place] (two) Medical times Branch daily. ergocalcife 0 Yes [id number] Take 1 [facility] rol, 8-30 capsule by ity of vitamin d2, 00:00: mouth [place] 1,250 mcg 00 weekly. Medical (50,000 Branch unit) capsule pantoprazol Yes [id number] 40mg Take 1 [facility] e 40 mg EC 8-30 tablet by ity of tablet 00:00: mouth 2 (two) Medical times Branch daily. Sennosides 0 Yes [id number] 17.2mg Take 17.2 [facility] 17.2 mg Tab 8-30 mg by ity of 00:00: mouth 2 (two) Medical times Branch daily. albuterol Yes [id number] INHALE 2 [facility] 90 8-30 PUFFS INTO ity of mcg/actuati 00:00: THE LUNGS [place] on inhaler 00 THREE Medical TIMES Branch DAILY NEEDED FOR SHORTNESS OF BREATH apixaban 0 Yes [id number] 5mg Take 1 Univers (ELIQUIS) 5 8-30 tablet by ity of mg tablet 00:00: mouth (two) Medical times Branch daily. Indication s: atrial fibrillati on, a fib and DVT tamsulosin Yes [id number] .4mg Take 1 [facility] 0.4 mg 24 8-30 capsule by ity of hr capsule 00:00: mouth 2 [place] (two) Medical times Branch daily. ergocalcife Yes [id number] Take 1 [facility] rol, 8-30 capsule by ity of vitamin d2, 00:00: mouth [place] 1,250 mcg 00 weekly. Medical (50,000 Branch unit) capsule pantoprazol Yes [id number] 40mg Take 1 [facility] e 40 mg EC 8-30 tablet by ity of tablet 00:00: mouth 2 (two) Medical times Branch daily. Sennosides Yes [id number] 17.2mg Take 17.2 [facility] 17.2 mg Tab 8-30 mg by ity of 00:00: mouth 2 (two) Medical times Branch daily. albuterol Yes [id number] INHALE 2 Univers 90 8-30 PUFFS INTO [...] a fib and DVT tamsulosin 2020-0 Yes [id number] .4mg Take 1 [facility] 0.4 mg 24 8-30 capsule by ity of hr capsule 00:00: mouth 2 [place] 00 (two) Medical times Branch daily. carvediloL 2022- No [id number] 25mg Take 1 [facility] 25 mg 8-30 07-12 tablet by ity of tablet 00:00: 00:00 mouth 2 [place] 00 :00 (two) Medical times Branch daily with meals. divalproex 2020-0 Yes 1500mg Take 1,500 Univers [...] 00:00: [place] tablet 00 Medical Branch nitroglycer Yes Univer s in 0.4 mg 6-23 ity of sublingual 00:00: [place] tablet 00 Medical Branch Gauze 0 Yes [id number] Use as Unive rs Bandage 5-26 directed ity of (KERLIX) 4 00:00: [place] X 4 " Spge 00 Medical Branch Gauze 0 Yes [id number] Use as Unive rs Bandage 5-26 directed ity of (KERLIX) 4 00:00: [place] X 4 " Spge 00 Medical Branch Gauze 0 Yes [id number] Use as Unive rs Bandage 5-26 directed ity of (KERLIX) 4 00:00: [place] X 4 " Spge 00 Medical Branch Gauze 0 Yes [id number] Use as Unive rs Bandage 5-26 directed ity of (KERLIX) 4 00:00: [place] X 4 " Spge 00 Medical Branch Gauze 0 Yes [id number] Use as Unive rs Bandage 5-26 directed ity of (KERLIX) 4 00:00: [place] X 4 " Spge 00 Medical Branch Gauze 0 Yes [id number] Use as Unive rs Bandage 5-26 directed ity of (KERLIX) 4 00:00: [place] X 4 " Spge 00 Medical Branch Bismuth 2020-0 2021- No [id number] Use as [facility] Tribrom-Pet -11-22 directed ity of rolatum,Wh 00:00: 00:00 [place] (XEROFORM 00 :00 Medical PETROLATUM Branch DRESSING) 4 X 4 " Bndg Bismuth 0 2021- No [id number] Use as [facility] [place] Tribrom-Pet -26 06-16 directed ity of rolatum,Wh 00:00: 00:00 [place] (XEROFORM 00 :00 Medical PETROLATUM Branch DRESSING) 4 X 4 " Bndg Insulin 2020-0 Yes USE [facility] [place], 3-15 DIRECTED ity of Disposable, 00:00: THREE [place] (PEN 00 TIMES Medical NEEDLE) 31 DAILY TO Branc h gauge x INJECT 3/16" Ndle INSULIN Insulin 2020-0 Yes USE [facility] [place], 3-15 DIRECTED ity of Disposable, 00:00: THREE [place] (PEN 00 TIMES Medical NEEDLE) 31 DAILY TO Branc h gauge x INJECT 3/16" Ndle INSULIN Insulin 2020-0 Yes USE [facility] [place], 3-15 DIRECTED ity of Disposable, 00:00: THREE [place] (PEN 00 TIMES Medical NEEDLE) 31 DAILY TO Branc h gauge x INJECT 3/16" Ndle INSULIN Insulin 2020-0 Yes USE [facility] [place], 3-15 DIRECTED ity of Disposable, 00:00: THREE [place] (PEN 00 TIMES Medical NEEDLE) 31 DAILY TO Branc h gauge x INJECT 3/16" Ndle INSULIN Insulin 2020-0 Yes USE [facility] [place], 3-15 DIRECTED ity of Disposable, 00:00: THREE [place] (PEN 00 TIMES Medical NEEDLE) 31 DAILY TO Branc h gauge x INJECT 3/16" Ndle INSULIN Insulin 2020-0 Yes USE [facility] [place], 3-15 DIRECTED ity of Disposable, 00:00: THREE [place] (PEN 00 TIMES Medical NEEDLE) 31 DAILY TO Branc h gauge x INJECT 3/16" Ndle INSULIN traMADoL 50 2020-0 Yes 1 tablet [facility] mg tablet 3-09 as needed ity o f 00:00: [place] Medical Branch HYDROcodone 2020-0 Yes 1 tablet [facility] [place] -acetaminop 3-09 as needed ity of hen 10-325 00:00: [place] mg tablet 00 Medical Branch traMADoL 50 2020-0 Yes 1 tablet [facility] [place] mg tablet 3-09 as needed ity o f 00:00: [place] Medical Branch HYDROcodone 2020-0 Yes 1 tablet [facility] [place] -acetaminop 3-09 as needed ity of hen 10-325 00:00: [place] mg tablet 00 Medical Branch traMADoL 50 2020-0 Yes 1 tablet [facility] [place] mg tablet 3-09 as needed ity o f 00:00: [place] Medical Branch HYDROcodone 2021-0 Yes 1 tablet [facility] [place] -acetaminop 3-09 as needed ity of hen 10-325 00:00: [place] mg tablet 00 [facility] traMADoL 50 Yes 1 tablet [facility] [place] mg tablet 3-09 as needed ity o f 00:00: [place] [facility] HYDROcodone Yes 1 tablet [facility] [place] -acetaminop 3-09 as needed ity of hen 10-325 00:00: [place] mg tablet 00 [facility] traMADoL 50 Yes 1 tablet [facility] [place] mg tablet 3-09 as needed ity o f 00:00: [place] [facility] HYDROcodone Yes 1 tablet [facility] [place] -acetaminop 3-09 as needed ity of hen 10-325 00:00: [place] mg tablet [facility] traMADoL 50 Yes 1 tablet [facility] [place] mg tablet 3-09 as needed ity o f 00:00: [place] [facility] HYDROcodone Yes 1 tablet [place] -acetaminop 3-09 as needed ity of hen 10-325 00:00: [place] mg tablet 00 [facility] cadexomer Yes Chronic Apply Univ ers iodine 7-20 pain of topically ity o f (IODOSORB) 00:00: right [place] to [place] 0.9% gel 00 affected MD area(s) [place] every n other day. Cancer Tiff cadexomer Yes Chronic Apply Univ ers iodine 7-20 pain of topically ity o f (IODOSORB) 00:00: right foot to [place] 0.9% gel 00 affected MD area(s) [place] every n other day. Cancer Tiff cadexomer Yes Chronic Apply Univ ers iodine 7-20 pain of topically ity o f (IODOSORB) 00:00: right foot to [place] 0.9% gel 00 affected MD area(s) [place] every n other day. Cancer Tiff benztropine 2018- Yes .5mg Take 0.5 [facility] (COGENTIN) 7-19 mg by ity of 0.5 mg 10:59: mouth [place] tablet 33 twice MD daily. [place] n Cancer Tiff HYDROcodone Yes 1{tbl} Take 1 [facility] [place] -acetaminop 7-19 tablet by ity of hen (NORCO) 10:59: mouth 3 [place] as 10 mg-325 33 (three) MD mg per times a [place] tablet day. [facility] apixaban Yes deep venous 5mg Take 5 mg Univers (ELIQUIS) 5 7-19 thrombosis by mouth ity of mg tablet 10:59: twice [place] 33 daily. MD [facility] benztropine Yes .5mg Take 0.5 [facility] (COGENTIN) 7-19 mg by ity of 0.5 mg 10:59: mouth [place] tablet 33 twice MD daily. [facility] HYDROcodone Yes 1{tbl} Take 1 [facility] [place] -acetaminop 7-19 tablet by ity of hen (NORCO) 10:59: mouth 3 [place] 10 mg-325 33 (three) MD mg per times a [place] tablet day. [facility] apixaban Yes deep venous 5mg Take 5 mg Univers (ELIQUIS) 5 7-19 thrombosis by mouth ity of mg tablet 10:59: twice [place] 33 daily. MD [facility] benztropine Yes .5mg Take 0.5 [facility] [place] (COGENTIN) 7-19 mg by ity of 0.5 mg 10:59: mouth [place] tablet 33 twice MD daily. [facility] HYDROcodone Yes 1{tbl} Take 1 [facility] [place] -acetaminop 7-19 tablet by ity of hen (NORCO) 10:59: mouth 3 [place] 10 mg-325 33 (three) MD mg per times a [place] tablet day. [facility] apixaban Yes deep venous 5mg Take 5 mg Univers (ELIQUIS) 5 7-19 thrombosis by mouth ity of mg tablet 10:59: twice [place] 33 daily. MD [place] [facility] losartan Yes Chronic 25mg Take 1 Univ ers (COZAAR) 25 7-19 pain of tablet (25 ity of mg tablet 00:00: right foot mg) by [place] 00 mouth MD daily. [facility] metoprolol Yes Chronic 25mg Take 1 [facility] [place] tartrate 7-19 pain of tablet (25 it y of (LOPRESSOR) 00:00: right foot mg) by [place] 25 mg 00 mouth MD tablet twice [place] daily. n Cancer Tiff risperiDONE Yes Chronic 4mg Take 1 U nivers (RisperDAL) 7-19 pain of tablet (4 ity of 4 mg tablet 00:00: right foot mg) by [place] 00 mouth at MD bedtime. [facility] collagenase Yes Chronic Apply [facility] (SANTYL) 7-19 pain of topically ity of ointment 00:00: right foot to [place] 00 affected MD area(s) [place] daily. n Cancer Tiff polyethylen Yes Chronic 17g Take 17 g Univers e glycol 7-19 pain of by mouth ity of (MIRALAX) 00:00: right foot daily. [place] 17 g packet 00 Can get MD over the [place] counter Cancer Tiff senna-docus Yes Chronic 2{tbl} Take 2 Univers ate 7-19 pain of tablets by ity of (SENOKOT-S) 00:00: right foot mouth [place] 8.6 mg-50 00 twice MD mg tablet daily. [place] Can get n over the Cancer counter Tiff divalproex Yes Chronic 750mg Take 3 U nivers (DEPAKOTE) 7-19 pain of tablets ity of 250 mg 24 00:00: right foot (750 mg) [place] hr tablet 00 by mouth MD at [place] bedtime. n Cancer Tiff NOVOLIN Yes Type 2 Inject 35 Uni vers 70/30 U-100 7-19 diabetes units ity of INSULIN 100 00:00: mellitus before [place] unit/mL 00 with foot breakfast MD (70-30) ulcer and 20 [place] injection units n before Cancer dinner. Center HOLD if sugar is less than 100 losartan Yes Chronic 25mg Take 1 Univ ers (COZAAR) 25 7-19 pain of tablet (25 ity of mg tablet 00:00: right foot mg) by [place] 00 mouth MD daily. [place] Cancer Tiff metoprolol Yes Chronic 25mg Take 1 [facility] [place] tartrate 7-19 pain of tablet (25 it y of (LOPRESSOR) 00:00: right foot mg) by [place] 25 mg 00 mouth MD tablet twice [place] daily. n Cancer Tiff risperiDONE Yes Chronic 4mg Take 1 U nivers (RisperDAL) 7-19 pain of tablet (4 ity of 4 mg tablet 00:00: right foot mg) by [place] 00 mouth at MD bedtime. [place] [facility] collagenase Yes Chronic Apply [facility] [place] (SANTYL) 7-19 pain of topically ity of ointment 00:00: right foot to [place] 00 affected MD area(s) [place] daily. [facility] polyethylen Yes Chronic 17g Take 17 g Univers e glycol 7-19 pain of by mouth ity of (MIRALAX) 00:00: right foot daily. [place] 17 g packet 00 Can get MD over the [place] counter [facility] senna-docus Yes Chronic 2{tbl} Take 2 Univers ate 7-19 pain of tablets by ity of (SENOKOT-S) 00:00: right foot mouth [place] 8.6 mg-50 00 twice MD mg tablet daily. [facility] Can get n over the Cancer counter Tiff divalproex Yes Chronic 750mg Take 3 U nivers (DEPAKOTE) 7-19 pain of tablets ity of 250 mg 24 00:00: right foot (750 mg) [place] hr tablet 00 by mouth MD at [place] bedtime. [facility] NOVOLIN Yes Type 2 Inject 35 Uni vers 70/30 U-100 7-19 diabetes units ity of INSULIN 100 00:00: mellitus before [place] unit/mL 00 with foot breakfast MD (70-30) ulcer and 20 [place] injection units n before Cancer dinner. Center HOLD if sugar is less than 100 losartan Yes Chronic 25mg Take 1 Univ ers (COZAAR) 25 7-19 pain of tablet (25 ity of mg tablet 00:00: right foot mg) by [place] 00 mouth MD daily. [facility] metoprolol Yes Chronic 25mg Take 1 [facility] [place] tartrate 7-19 pain of tablet (25 it y of (LOPRESSOR) 00:00: right foot mg) by [place] 25 mg 00 mouth MD tablet twice [place] daily. Cancer Tiff risperiDONE Yes Chronic 4mg Take 1 U nivers (RisperDAL) 7-19 pain of tablet (4 ity of 4 mg tablet 00:00: right foot mg) by [place] 00 mouth at MD bedtime. [facility] collagenase Yes Chronic Apply [facility] [place] (SANTYL) 7-19 pain of topically ity of ointment 00:00: right foot to [place] 00 affected MD area(s) [place] daily. n Cancer Tiff polyethylen Yes Chronic 17g Take 17 g [...] Can get n over the Cancer counter Tiff divalproex Yes Chronic 750mg Take 3 U nivers (DEPAKOTE) 7-19 pain of tablets ity of 250 mg 24 00:00: right foot (750 mg) [place] hr tablet 00 by mouth MD at [facility] bedtime. n Cancer Center NOVOLIN Yes Type 2 Inject 35 Uni [...] [place] 500 mg 00 by mouth [place] tablet every 8 [place] (eight) n hours. Cancer Center methocarbam Yes Chronic 500mg Take 1 Univers ol 7-18 pain tablet ity of (ROBAXIN) 00:00: (500 mg) [place] 500 mg 00 by mouth [place] tablet every 8 [place] (eight) n hours. Cancer Center methocarbam Yes Chronic 500mg Take 1 Univers ol 7-18 pain tablet ity of (ROBAXIN) 00:00: (500 mg) [place] 500 mg 00 by mouth MD tablet every 8 [place] (eight) n hours. Cancer Center Uri Duboisza Yes Sylvain Inject 1.8 C ommon [place] mg/day [facility] Albuterol Albuterol Yes [place] 1 puff as Common Sulfate HFA Sulfate HFA Diet[place] needed [facility] Duloxetine Duloxetine Yes [place]ain 1 capsule Common HCl HCl Dietrich [facility] Clonazepam Clonazepam Yes [place] 1 tablet Common Dietrich at bedtime [facility] NovoLIN NovoLIN Yes [place] Inject 65 Co mmon 70/30 70/30 Dietrich units [facility] FlexPen FlexPen [facility] Tramadol Tramadol Yes [place] 1 tablet C ommon HCl HCl Diet[place] as needed [facility] Hydrocodone Hydrocodone Yes [place] 1 tablet Common -Acetaminop -Acetaminop [place] as needed [facility] hen hen [facility] Eliquis Eliquis Yes [place] TAKE 1 Commo n Dietrich TABLET BY [facility] MOUTH [facility] TWICE [facility] Benztropine Benztropine Yes [place]vain 1 tablet Common Mesylate Mesylate Dietrich at bedtime [facility] Amphetamine Amphetamine Yes [place] 1 tablet Common -Dextroamph -Dextroamph Dietrich [facility] etamine etamine [facility] Risperidone Risperidone Yes [place] 1 tablet Common Dietrich [facility] Metoprolol Metoprolol Yes Sylvain 1 tablet Common Tartrate Tartrate Dietrich with food S pirit [facility] Losartan Losartan Yes Sylvain 1 tablet C ommon Potassium Potassium Dietrich [facility] Divalproex Divalproex Yes Sylvain 1 tablet Common Sodium ER Sodium ER Dietrich [facility] BusPIRone BusPIRone Yes Sylvain 1 tablet Common HCl HCl Dietrich [facility] Pen Farina Pen Farina Yes Sylvain N/s Common Dietrich [facility] Atorvastati Atorvastati Yes Sylvain 1 tablet Common n Calcium n Calcium Dietrich [facility] Advair Advair Yes Sylvain 1 puff Common Diskus Diskus Dietrich [facility] True Metrix True Metrix Yes Sylvain USE TO Common Blood Blood Dietrich TEST BLOOD Spirit Glucose Glucose SUGAR 1-2 - CH I Test Test TIMES St EVERY DAY [facility] Yes Sylvain INJECT Commo n 70/30 70/30 Dietrich SUBQUTANEO Spirit FlexPen FlexPen USLY 65 - CHI UNITS [facility] TWICE [facility] DAILY [facility] Yes Sylvain USE ONE Co mmon Micro Pen Micro Pen Dietrich NEEDLE Sp kwame Farina Farina THREE - CHI TIMES St DAILY WITH [facility] NOVOLIN FLEXPEN Immunizations Ordered Filled Immunization Date Status Comments [facility] e Immunization Name Name SARS-COV-2 COVID-19 2021-04-20 Completed Unive rsity of MODERNA VACCINE 00:00:00 [facility] SARS-COV-2 COVID-19 2021-04-20 Completed Unive rsity of MODERNA VACCINE 00:00:00 [facility] SARS-COV-2 COVID-19 2021-04-20 Completed Unive rsity of MODERNA VACCINE 00:00:00 [facility] SARS-COV-2 COVID-19 2021-04-20 Completed Unive rsity of MODERNA VACCINE 00:00:00 [facility] SARS-COV-2 COVID-19 2021-04-20 Completed Unive rsity of MODERNA VACCINE 00:00:00 [facility] SARS-COV-2 COVID-19 2021-04-20 Completed Unive rsity of MODERNA VACCINE 00:00:00 [facility] SARS-COV-2 COVID-19 2020-09-18 Completed Unive rsity of MODERNA VACCINE 00:00:00 [facility] SARS-COV-2 COVID-19 2020-09-18 Completed Unive rsity of MODERNA VACCINE 00:00:00 [facility] SARS-COV-2 COVID-19 2020-09-18 Completed Unive rsity of MODERNA VACCINE 00:00:00 [facility] SARS-COV-2 COVID-19 2020-09-18 Completed Unive rsity of MODERNA VACCINE 00:00:00 [facility] SARS-COV-2 COVID-19 2020-09-18 Completed Unive rsity of MODERNA VACCINE 00:00:00 [facility] SARS-COV-2 COVID-19 2020-09-18 Completed Unive rsity of MODERNA VACCINE 00:00:00 [facility] SARS-COV-2 COVID-19 2020-08-21 Completed Unive rsity of MODERNA VACCINE 00:00:00 [facility] SARS-COV-2 COVID-19 2020-08-21 Completed Unive rsity of MODERNA VACCINE 00:00:00 [facility] SARS-COV-2 COVID-19 2020-08-21 Completed Unive rsity of MODERNA VACCINE 00:00:00 [facility] SARS-COV-2 COVID-19 2020-08-21 Completed Unive rsity of MODERNA VACCINE 00:00:00 [facility] SARS-COV-2 COVID-19 2020-08-21 Completed Unive rsity of MODERNA VACCINE 00:00:00 [facility] SARS-COV-2 COVID-19 2020-08-21 Completed Unive rsity of MODERNA VACCINE 00:00:00 [facility] Pneumococcal 13 2019-07-12 Completed Universit y of Conjugate, PCV13 00:00:00 [facility] dical (Prevnar 13) Branch Pneumococcal 13 2019-07-12 Completed Universit y of Conjugate, PCV13 00:00:00 [facility] dical (Prevnar 13) Branch Pneumococcal 13 2019-07-12 Completed Universit y of Conjugate, PCV13 00:00:00 [facility] dical (Prevnar 13) Branch Pneumococcal 13 2019-07-12 Completed Universit y of Conjugate, PCV13 00:00:00 [facility] dical (Prevnar 13) Branch Pneumococcal 13 2019-07-12 Completed Universit y of Conjugate, PCV13 00:00:00 [facility] dical (Prevnar 13) Branch Pneumococcal 13 2019-07-12 Completed Universit y of Conjugate, PCV13 00:00:00 [facility] dical (Prevnar 13) Branch Pneumococcal 13 2019-05-25 Completed Universit y of Conjugate, PCV13 00:00:00 [facility] dical (Prevnar 13) Branch Pneumococcal 13 2019-05-25 Completed Universit y of Conjugate, PCV13 00:00:00 [facility] dical (Prevnar 13) Branch Pneumococcal 13 2019-05-25 Completed Universit y of Conjugate, PCV13 00:00:00 [facility] dical (Prevnar 13) Branch Pneumococcal 13 2019-05-25 Completed Universit y of Conjugate, PCV13 00:00:00 [place] dical (Prevnar 13) Branch Pneumococcal 13 2019-05-25 Completed Universit y of Conjugate, PCV13 00:00:00 [facility] dical (Prevnar 13) Branch Pneumococcal 13 2019-05-25 Completed Universit y of Conjugate, PCV13 00:00:00 [facility] dical (Prevnar 13) Branch Vital Signs Vital Name Observation Time Observation Value Comments Source Diastolic blood 2021-12-24 22:01:00 79 mm[Hg] Unive rsity of [facility] Heart rate 2021-12-24 22:01:00 89 /min Universi ty [facility] Body temperature 2021-12-24 22:01:[address] Respiratory rate 2021-12-24 22:01:00 18 /min [facility] Body height 2021-12-24 22:01:00 182.9 cm Universi ty [facility] Body weight 2021-12-24 22:01:00 105.235 kg Universi ty [facility] BMI 2021-12-24 22:01:00 31.46 kg/m2 Universi ty [facility] Oxygen saturation in 2021-12-24 22:01:00 98 /min University of Arterial blood by [facility] Pulse oximetry Branch Systolic blood 2021-12-24 22:01:00 172 mm[Hg] Univer sity of [facility] Systolic blood 2021-11-19 19:09:00 174 mm[Hg] Univer sity of [facility] Diastolic blood 2021-11-19 19:09:00 91 mm[Hg] Unive rsity of [facility] Heart rate 2021-11-19 19:00:00 80 /min Universi ty [facility] Body weight 2021-11-19 19:00:00 104.962 kg Universi ty [facility] BMI 2021-11-19 19:00:00 32.27 kg/m2 Universi ty [facility] Oxygen saturation in 2021-11-19 19:00:00 97 /min University of Arterial blood by [facility] Pulse oximetry Branch Procedures Procedure Date / Time Performed Performing Clinician Sourjovanny e COMP. METABOLIC PANEL 2021-12-24 22:19:00 Kelvin Darby [facility] ([id number]) [facility] CBC WITH DIFF 2021-12-24 22:19:00 Kelvin Darby Lulu [facility] f [facility] EXTERNAL PROVIDER 2021-12-06 05:01:00 Doctor Unassigned, No [facility] [place] RECORDS Name [facility] HOME HEALTH - OTHER 2021-11-23 05:01:00 [facility], [facility] Plan of Care Planned Activity Planned Date Details Comments Source Future Scheduled 2021-12-25 COVID-19 Vaccination [facility] [place] Test 10:49:05 (#1) [code = COVID-19 [facility] (#1)] Center Future Scheduled 2021-12-25 COVID-19 Vaccination [facility] [place] Test 10:49:05 (#1) [code = COVID-19 [facility] Vaccination (#1)] Center Future Scheduled 2021-11-30 COVID-19 Vaccination [facility] [place] Test 06:12:57 (#1) [code = COVID-19 MD [facility] Vaccination (#1)] Center Future Scheduled 2021-03-09 [facility] Test 00:00:00 Seasonal Mar to August (>/= 19 yrs) [code = IMM Influenza Seasonal Mar to August (>/= 19 yrs)] Future Scheduled 2011 Screening for [facility] Test 00:00:00 malignant neoplasm of colon (procedure) [code = 632000103] Future Scheduled 1973 COVID-19 Vaccine (1) [facility] Test 00:00:00 [code = COVID-19 Vaccine (1)] Encounters Start End Encounter Admission Attending Care Care Encounter Source Date/Time Date/Time Type Type Clinicians Facility Department ID 2021-10-22 Outpatient MARLENY Dietrich [facility] [id number] Common 14:35:01 Sylvain [facility] 2021-07-05 Outpatient 3 [place] [id number] ENCPL 10:37:17 Violetta 18 2021-07-05 [place]patient 3 [place] [id number] ENCPL 10:35:19 Violetta 09Esther 2021-07-05 Outpatient 3 [id number] ENCPL REF [id number] ENCPL 10:33:41 0909 2021-07-04 Outpatient Dietrich, STLMLC [facility] [id number] Common 12:23:16 Sylvain 58103 [facility] 2021-07-04 Outpatient Dietrich, STLMLC [facility] [id number] Common 11:58:41 Sylvain 39192 [facility] 2021-07-04 Outpatient Dietrich, [facility] [id number] Common 11:58:34 Sylvain 01448 [facility] 2021-07-04 Outpatient Dietrich, [facility] [id number] Common 11:54:24 Sylvain 34740 [facility] 2021-07-04 Outpatient Dietrich, [facility] [id number] Common 11:24:48 Sylvain 24084 [facility] 2021-07-04 Outpatient Dietrich, [facility] [id number] Common 11:24:36 Sylvain 39616 [facility] 2021-03-20 Outpatient [id number]-C Memoria 10:39:01 [id number]-4242-B44 L2I-6744- B l -R55O-89M D-59DSQOQ7G 44D-77CAFE Raul XXMZ3UFR0 AF2 A1DAF2 2021-03-13 Outpatient [id number] Memoria 08:49:42 [id number] 166-4D51- 8 l -8885-75E 5-19A7A7Y3M 885-75E2A2 Raul [id number] E94 F6FE94 2021-02-27 Outpatient [id number] [id number] Memoria 16:26:17 9Q71-45KL 34-41DF-A62 K29-50HJ- A l -Y11V-9FW B-5RA78OQSI 62B-5CF45F Raul 95GHOKD06 E49 CCBE49 2021-02-13 Outpatient [id number] Memoria 13:34:27 FDA5-4DF8 A5-0QB5-EB2 DA5-4DF8- A l -AV9R-00L F-00Y79X9R6 D8O-84S48C Raul 51Y5W7G2D C9E 9A6C9E 2021-02-05 Outpatient [id number] Memoria 13:02:31 01O1-3BT3 E0-7SR4-2UD 4T6-7CF5- 8 l -8ZA7-2G3 7-6L1D4LP4T BD7-8F3D5B Raul G0NZ4M4E2 9A8 B3F9A8 2021-01-31 Outpatient [id number] FD79-7 Memoria 14:21:44 71EF-4A97 EF-9J76-Z7F 1EF-4A97- A l -F2A9-X82 2-O1700V49N 0U3-Y9368J Raul 52Q27SOCQ ABB 67DABB 2021-01-29 Outpatient [id number] [id number] Memoria 07:59:59 EAF3-4402 F3-4402-989 AF3-4402- 9 l -9894-E93 4-L182U879U 894-E932E0 [place] 8B031U16W 73E 11E73E 2021-01-26 Outpatient [id number] Memoria 11:30:20 88D6-0J1S D3-7Q3E-X26 4C4-1I8K- A l -Q537-0I6 0-9O8X27O22 760-9F0F01 Raul [id number] A92 B18A92 2021-01-18 Outpatient [id number] Memoria 19:23:47 [id number] 91-4470-660 854-7634- 9 l -904F-E96 F-U28LQR932 04F-E96FEA Raul MML159WX9 FF0 071FF0 2021-01-17 Outpatient [id number] [id number] Memoria 15:43:09 [id number] B4-4358-860 1H2-3772- 8 l -8608-A37 8-A02Y66Y0A 608-A37F06 Raul E77Q2N92V 43A F6C43A 2021-01-11 Outpatient [id number] Memoria 16:20:54 GG04-1648 42-4648-8F1 Q83-7894- 8 l -6A5Z-QA2 A-XV1J046XQ U4Y-OX2M71 Raul Y744HQG5Y A7A 0AAA7A 2020-07-15 Inpatient EM Jegatheswar HCACL MAS [id number] [facility] 14:49:00 an, [address] [facility] 2020-07-13 Inpatient HCACL MARIA D [id number] [facility] 14:41:00 [id number] [facility] 2022-01-23 2022-01-23 Outpatient R LUIS LAM [facility] [id number] Univers 14:00:00 14:00:[address] [facility] 2021-12-24 2021-12-24 Emergency X [facility] ERT [id number] Univers 16:57:00 20:57:00 KELVIN allan [facility] 2021-12-24 2021-12-24 Emergency [facility] [id number] Univers 16:57:00 20:57:00 Kelvin MARTIN 350.1.13.10 i ty [facility] 4.2.7.2.686 [facility] [phone] [place] [address] Branch 2021-12-18 2021-12-18 Patti [facility] [id number] [id number] Univers 00:00:00 00:00:00 Marylu MARTIN 350.1.13.10 [facility] [place] [id number] [facility] [address] Branch BUILDING 2021-12-06 2021-12-06 Orders Doctor CHEW [id number] [id number] Univers 00:00:00 00:00:00 Only Unassigned, MARIELOS 350.1.13.10 [facility] 4.2.7.2.686 [place] as [phone] [facility] 009 Branch 2021-11-26 2021-11-26 Outpatient R [facility] [id number] Univers 13:30:00 13:30:00 ity [facility] 2021-11-23 2021-11-23 Orders Doctor CHEW [id number] [id number] Univers 00:00:00 00:00:00 Only Unassigned, MARIELOS [id number] ity [facility] 4.2.7.2.686 [place] as [phone] [facility] 00[address] [place] 2021-11-19 2021-11-22 Inpatient X [facility] [id number] Univers 18:34:00 15:35:[address] [facility] 2021-11-19 2021-11-19 Office [facility] ..840.114 [id number] Univers 14:00:00 15:01:[address] [facility] 350.1.13.10 it y [facility] 4.2.7.2.686 [place]wyn as RIANA?BLEA [id number] [facility] [address] [place] MEDICAL OFFICE BUILDING 2021-11-19 2021-11-19 Outpatient R AJ [facility] [id number] Univers 14:00:00 15:01:22 [facility] 2021-09-21 2021-09-21 Outpatient R JOHN REYES [facility] [id number] Univers 14:30:00 15:28:[address] [facility] 2021-09-14 2021-09-14 [id number] Univers 14:00:00 14:00:00 LUCIA [facility] 2021-06-14 2021-06-14 Outpatient R YOAV [facility] [id number] Univers 09:30:00 09:30:[address] [facility] 2021-05-23 2021-05-23 Outpatient R FOSTER, [facility] [id number] Univers 12:30:00 13:40:[address] [facility] 2021-05-14 2021-05-14 [facility] [id number] Univers 14:30:00 14:30:[address] [facility] 2021-04-24 2021-04-24 [facility] [id number] Univers 16:00:00 16:00:00 LUCIA [facility] 2021-03-13 2021-03-13 [facility] [id number] Univers 09:15:00 10:16:[address] [facility] 2021-02-20 2021-02-20 [facility] [id number] Univers 15:30:00 16:29:01 LUCIA [facility] 2021-02-05 2021-02-05 Out[facility] [id number] Univers 13:00:00 15:10:[address] [facility] 2021-01-17 2021-01-17 Telephone [facility] [id number] 00:00:00 00:00:00 Marylu Martin [id number] [place] 4.2.7.2.686 [place] [id number] [facility] 044 Building 2021-01-10 2021-01-10 Refill [facility] 1.2.840.114 [id number] 00:00:00 00:00:00 Marylu Ravin Martin 350.1.13.10 [place] 4.2.7.2.686 Professio [id number] [facility] 231 [facility] 2021-01-09 2021-01-09 Outpatient Chi FIGUEREDO, [facility] [id number] Univers 13:30:00 13:30:00 BRIANA allan [facility] 2020-12-28 2020-12-28 Office [facility] 1.2.840.114 [id number] 13:00:56 15:02:32 Visit Marylu Martin 350.1.13.10 [place] 4.2.7.2.686 Professio [id number] [address] 2020-04-04 2020-04-04 Outpatient STLMLC STLMLC [id number] Common 00:00:00 00:00:00 [facility] 2020-04-03 2020-04-03 Outpatient STLMLC STLMLC [id number] Common 00:00:00 00:00:00 [facility] 2020-04-03 2020-04-03 Outpatient STLMLC STLMLC [id number] Common 00:00:00 00:00:00 [facility] 2020-03-21 2020-03-21 Outpatient STLMLC STLMLC [id number] Common 00:00:00 00:00:00 [facility] 2020-03-08 2020-03-08 Outpatient STLMLC STLMLC [id number] Common 00:00:00 00:00:00 [facility] 2020-03-03 2020-03-03 Outpatient STLMLC STLMLC [id number] Common 00:00:00 00:00:00 [facility] 2020-03-01 2020-03-01 Outpatient STLMLC STLMLC [id number] Common 00:00:00 00:00:00 [facility] 2020-02-22 2020-02-22 Outpatient STLMLC STLMLC [id number] Common 00:00:00 00:00:00 [facility] 2020-01-28 2020-01-28 Out[facility] [id number] Common 08:27:00 08:27:[address] [facility] 2020-01-26 2020-01-26 Outpatient [facility] [id number] Common 11:04:00 11:04:[address] [facility] 2020-01-05 2020-01-05 Outpatient [facility] [id number] Common 16:30:00 16:30:[address] [facility] 2020-01-03 2020-01-03 Outpatient [facility] [id number] Common 10:59:00 10:59:[address] [facility] 2019-11-24 2019-11-24 Outpatient [facility] [id number] Common 11:16:00 11:16:00 t [facility] [address] [facility] 2019-11-24 2019-11-24 Outpatient [facility] [id number] Common 11:15:00 11:15:[address] [facility] 2019-11-11 2019-11-11 Outpatient [facility] [id number] Common 09:41:00 09:41:00 t [facility] [address] [facility] 2019-11-10 2019-11-10 Outpatient [facility] [id number] Common 10:30:00 10:30:[address] [facility] 2019-03-27 2019-03-27 Emergency [facility] [id number] Gabriel 11:00:00 11:00:00 Health 2019-03-27 2019-03-27 Emergency [facility] [id number] 3 [place] 10:55:25 10:55:25 Health 2019-03-27 2019-03-27 Emergency [facility] [id number] 6 Gabriel 08:02:06 08:02:06 Health 2019-03-27 2019-03-27 Emergency [facility] [id number] 5 Gabriel 00:00:00 00:00:00 Health Results Test Description Test Time Test Comments Results Result Comments Source [facility] 2020-07-17 17:26:00 Test Item Value Reference Range Interpretation Comme nts GLUBED (test code = GLUBED) 246 MG/DL 70-110 H Performed by certified 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 [facility] [id number] 13:12:00 Test Item Value Reference Range Interpretation Comments GLUBED (test code = 233 MG/DL 70-110 H Performe d by certified GLUBED) 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 [facility] [id number] 08:24:00 Test Item Value Reference Range Interpretation Comments GLUBED (test code = 157 MG/DL 70-110 H Performe d by certified GLUBED) 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 [facility] [id number] 06:46:00 Test Item Value Reference Range Interpretation Comments GLUBED (test code = 159 MG/DL 70-110 H Performe d by certified GLUBED) 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 [facility] [id number] 20:20:00 Test Item Value Reference Range Interpretation Comments GLUBED (test code = 174 MG/DL 70-110 H Performe d by certified GLUBED) 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 [facility] [id number] 17:34:00 Test Item Value Reference Range Interpretation Comments GLUBED (test code = 101 MG/DL 70-110 N Performe d by certified GLUBED) 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 [facility] [id number] 12:09:00 Test Item Value Reference Range Interpretation Comments GLUBED (test code = 176 MG/DL 70-110 H Performe d by certified GLUBED) 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 [facility] BASIC METABOLIC [id number] 11:39:00 Test Item Value Reference Range Interpretation [...] 8.3 mg/dL 8.0-10.5 N CA) CBC W/AUTO [id number] 11:24:00 Test Item Value Reference Range Interpretation [...] DIFF REQUIRED (test code NO = MDIFF) [id number] 06:50:00 Test Item Value Reference Range Interpretation Comments GLUBED (test code = 192 MG/DL 70-110 H Performe d by certified GLUBED) 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 [facility] [id number] 19:48:00 Test Item Value Reference Range Interpretation Comments GLUBED (test code = 187 MG/DL 70-110 H Performe d by certified GLUBED) 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 [facility] [id number] 17:18:00 Test Item Value Reference Range Interpretation Comments GLUBED (test code = 128 MG/DL 70-110 H Performe d by certified GLUBED) 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 [facility] C REACTIVE [id number] 13:50:00 Test Item Value Reference Range Interpretation Comments C REACTIVE PROTEIN (test code = CRP) 8.0 mg/L <10.0 N BASIC METABOLIC [id number] 13:50:00 Test Item Value Reference Range Interpretation [...] 8.7 mg/dL 8.0-10.5 N CA) CBC W/AUTO [id number] 13:19:00 Test Item Value Reference Range Interpretation [...] REQUIRED (test code = MDIFF) CBC W/AUTO [id number] 13:19:00 Test Item Value Reference Range Interpretation [...] DIFF REQUIRED (test code NO = MDIFF) [id number] 12:05:00 Test Item Value Reference Range Interpretation Comments GLUBED (test code = 209 MG/DL 70-110 H Performe d by certified GLUBED) 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 [facility] [id number] 08:16:00 Test Item Value Reference Range Interpretation Comments GLUBED (test code = 208 MG/DL 70-110 H Performe d by certified GLUBED) 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 [facility] [id number] 20:50:00 Test Item Value Reference Range Interpretation Comments GLUBED (test code = 232 MG/DL 70-110 H Performe d by certified GLUBED) 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 [facility] [id number] 18:45:00 Test Item Value Reference Range Interpretation Comments GLUBED (test code = 146 MG/DL 70-110 H Performe d by certified GLUBED) 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 [facility] - DUP LE ART [id number] 17:18:00 [facility] : 1960 Sex: M Name: MARCOS RAMOS [facility] : 1960 Age/S: 60 / M [address] [place] [address] Unit #: [id number] Loc: [place] [address] Phys: Mark Alexander TRANSMISSION SUPERVISOR Acct: [id number] Dis Date: Status: ADM IN PHONE #: [phone] Exam Date: 07/14/2020 1655 FAX #: [phone] Reason: bilat foot uclers EXAMS: CPT CODE: [id number] DUP LE ART ABHISHEK [id number] Clinical Indication: Bilateral foot ulcers; Comparison: None TECHNIQUE: Bilateral lower extremity arterial Doppler evaluation without ABIs was performed with arce scale, color Doppler, and spectral Doppler evaluation. 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 FINDINGS: RIGHT LOWER EXTREMITY: JACQUARD TWINE POLISHER OPERATOR: Patent, triphasic waveform. SFA: Patent, triphasic waveform. Popliteal: Patent, triphasic waveform. Posterior tibial: Patent, triphasic waveform. Dorsalis pedis: Patent, triphasic waveform. LEFT LOWER EXTREMITY: JACQUARD TWINE POLISHER OPERATOR: Patent, triphasic waveform. SFA: Patent, biphasic waveform. Popliteal: Patent, triphasic waveform. Posterior tibial: Patent, biphasic waveform. Dorsalis pedis: Patent, triphasic waveform. IMPRESSION: Patent bilateral lower extremity arterial vasculature with multiphasic waveforms. SL: [id number] at 1718 Reported and signed by: Kuldeep Kuo M.D. PAGE 1 Signed Report (CONTINUED) Name: MARCOS RAMOS [facility] [place] : 1960 Age/S: 60 / M [address] [place] [place] [address] [address] Unit #:[id number] Loc: [place] [address] Phys: Mark Alexander NP Acct: [id number] Dis Date: Status: ADM IN PHONE #: [phone] Exam Date: 07/14/2020 1655 FAX #: [phone] Reason: bilat foot uclers EXAMS: CPT CODE: [id number] DUP LE ART ABHISHEK 42623 <Continued> CC: Judah Campuzano MD; Mark Alexander NP Technologist: Sherin Hudson RDMS(AB) Trnscb Date/Time: 07/14/2020 (171) [email or web address] Orig Print D/T: S: 07/14/2020 (172) Probe: PAGE 2 Signed Report- DUP VEIN [id number] 17:03:00 [facility] 1960 Sex: M Name: MARCOS RAMOS [facility] : 1960 Age/S: 60 / M [address] [place] [address] Unit #: [id number] Loc: [place] [address] Phys: Jocelynn Mehta Acct: [id number] Dis Date: Status: ADM IN PHONE #: [phone] Exam Date: 07/14/2020 1655 FAX #: [phone] Reason: hx of DVT EXAMS: CPT CODE: [id number] DUP VEIN ABHISHEK 31197 Clinical Indication: History of DVT, bilateral lower [...] Porfirio at 1702 hours on 07/14/2020. SL: [id number] at 1703 Reported and signed by: Kuldeep Kuo M.D. CC: Jocelynn Mehta; Judah Campuzano MD Technologist: MATHEUS Correia() Trnscb Date/Time: 07/14/2020 (170) [email or web address] Orig Print D/T: S: 07/14/2020 (1706) Probe: PAGE 1 Signed [id number] 16:30:00 Test Item Value Reference Range Interpretation [...] APPROPRIATECLIN ICAL EUALUATIONS. - CTA CHEST FOR [id number] 16:24:00 [facility] Jovanny : 1960 Sex: M Name: RAMOSGEOFFREYMARCOS C [facility] : 1960 Age/S: 60 / M [address] [place] [address] Blvd Unit #: [id number] Loc: [place] [address] Phys: Jocelynn Mehta TRANSMISSION SUPERVISORDean Acct: [id number] Dis Date: Status: ADM IN PHONE #: [phone] Exam Date: 07/14/2020 1553 FAX #: [phone] Reason: rule out PE, Hx of PE EXAMS: CPT CODE: [id number] [place] [address] Clinical Indication: History of PE. Shortness of [...] 4. Evidence of prior granulomatous process. SL: [id number] PAGE 1 Signed Report (CONTINUED) Name: MARCOS RAMOS [facility] : 1960 Age/S: 60 / M [address] [place] [address] Blvd Unit #: [id number] Loc: [place] [address] Phys: Jocelynn Mehta Acct: [id number] Dis Date: Status: ADM IN PHONE #: [phone] Exam Date: 07/14/2020 1553 FAX #: [phone] Reason: rule out PE, Hx of PE EXAMS: CPT CODE: [id number] [place] [address] <Continued> at 1624 Reported and signed by: Kuldeep Kuo M.D. CC: Jocelynn Mehta; Judah Campuzano MD Wilbert hnologist:RT Schuyler(R) CTDI: DLP: Trnscb Date/Time: 07/14/2020 (1623) [email or web address] Orig Print D/T: S: 07/14/2020 (1626) PAGE 2 Signed [id number] 15:20:00 Test Item Value Reference Range Interpretation Comments GLUBED (test code = 177 MG/DL 70-110 H Performe d by certified GLUBED) 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 [facility] SED RATE [id number] 11:49:00 Test Item Value Reference Range Interpretation Comments SED RATE WESTERGREN (test code = 39 mm/hr 0-15 H SEDW) BASIC METABOLIC [id number] 11:18:00 Test Item Value Reference Range Interpretation [...] code = 8.6 mg/dL 8.0-10.5 N CA) [id number] 11:18:00 Test Item Value Reference Range Interpretation Comments MAGNESIUM (test code = MAG) 1.49 mg/dL 1.80-2.40 L [id number] 11:18:00 Test Item Value Reference Range Interpretation [...] may masoud y by method. 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 [facility] LACTIC ACID 2ND [id number] 21:31:00 Test Item Value Reference Range Interpretation Comments LACTIC ACID 2ND REPEAT (test code 1.9 mmol/L 0.4-1.9 N = LACT2) [id number] 21:04:00 Test Item Value Reference Range Interpretation Comments GLUBED (test code = 224 MG/DL 70-110 H Performe d by certified GLUBED) 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 [facility] [id number] 19:23:00 Test Item Value Reference Range Interpretation [...] HGBA1C%) 11.2 %A1C 4.8-6.0 H LACTIC ACID [id number] 19:17:00 Test Item Value Reference Range Interpretation Comments LACTIC ACID REPEAT (test code = 2.3 mmol/l 0.4-1.9 H LACTR) UA RFLX MICR CULT IF [id number] 17:25:00 Test Item Value Reference Range Interpretation [...] culture: RiskForSepsis-no oth srcSpecimen Description: CLEAN CATCHLIPOPROTEIN [id number] 17:03:00 Test Item Value Reference Range Interpretation Comments LIPOPROTEIN LDL 165.8 mg/dL 0-100 H <100 OPT [id number] (test code = LDL) NEAR OPTI MAL/ABOVE [id number] 89 HIGH>MB=856 VE RY HIGH*Guidelines provided by the [facility] terol [facility] Adult Treatment Panel III BASIC METABOLIC [id number] 16:44:00 Test Item Value Reference Range Interpretation [...] 8.8 mg/dL 8.0-10.5 N CA) HEPATIC FUNCTION [id number] 16:44:00 Test Item Value Reference Range Interpretation [...] 121 IUnit/L 20-125 N code = ALKP) [id number] 16:44:00 Test Item Value Reference Range Interpretation [...] may masoud y by method. BASIC METABOLIC [id number] 16:41:00 Test Item Value Reference Range Interpretation [...] code = CA) mg/dL 8.0-10.5 HEPATIC FUNCTION [id number] 16:41:00 Test Item Value Reference Range Interpretation Comments TOTAL PROTEIN (test code = PROT) g/dL 6.4-8.2 ALBUMIN (test code = ALB) g/dL 3.4-5.0 BILIRUBIN TOTAL (test code = BILT) mg/dL 0.0-1.0 BILIRUBIN DIRECT (test code = BILD) MG/DL 0.0-0.30 SGOT/AST (test code = AST) IUnit/L 15-37 SGPT/ALT (test code = ALT) IUnit/L 30-65 ALKALINE PHOSPHATASE TOTAL (test IUnit/L 20-125 code = ALKP) [id number] 16:41:00 Test Item Value Reference Range Interpretation [...] results may masoud y by method. 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 [...] by: Festus Mejia M.D. CC: Buddy Pal TRANSMISSION SUPERVISOR Technologist: Meme Banerjee, RT(R); Nikki Coello RT(R) Trnscrd Date/Time/By: 07/13/2020 (114) : By: [email or web address] Orig Print D/T: S: 07/13/2020 (7724) PAGE 1 Signed ReportCBC W/AUTO [id number] 16:28:00 Test Item Value Reference Range Interpretation [...] (test code NO = MDIFF) CBC W/AUTO [id number] 16:27:00 Test Item Value Reference Range Interpretation [...]
== END 2021-12-25 11:27 | disposition home or self-care (01) ==
LOC: ER 08:29
DX: R41.82 Altered mental status, unspecified (principal); I10 Essential (primary) hypertension; E11.9 Type 2 diabetes mellitus without complications; I50.9 Heart failure, unspecified; G20 Parkinson's disease; Z79.4 Long term (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; Z79.01 Long term (current) use of anticoagulants; Z88.5 Allergy status to narcotic agent
CPT/HCPCS: 93005 ×2; 87040 ×2; 85025; 80048; 36415; 80320; 82140; 83735; 85610; 82947; 80076; 81003; 84484; 83880; 80307; 70450; 71045; 96374; 99284; J0360

== ENCOUNTER 2022-01-04 13:43 | Emergency (ER) | payer OTHER ==
[2022-01-04 15:18] LABS: Absolute Lymphocytes (CBC) 0.8 K/uL (0.7-4.9); Hematocrit 28.6 % (39.6-49.0); Lymphocytes % 18.4 % (15.3-44.8); MCV 87.7 fL (80-100); MPV 7.5 fL (7.6-11.3); RBC Red Blood Cell Count 3.26 M/uL (4.33-5.43)
[2022-01-04 15:25] LABS: Albumin 2.9 g/dL (3.4-5.0); Bilirubin Total 0.2 mg/dL (0.2-1.0); Potassium 4.6 mmol/L (3.5-5.1); Protein, Total 7.3 g/dL (6.4-8.2)
[2022-01-04] MEDS ORDERED: NA CHLORIDE 0.9% 500 ML ONE (15:52)
[2022-01-04] MEDS ORDERED: ONDANSETRON 4 MG/2 ML VIAL ONE (15:52)
--- NOTE | 2022-01-04 16:40 | RAD REPORT ---
EXAM DESCRIPTION: CT - Abdomen Pelvis Wo Contrast - 01/04/2022 4:34 pm CLINICAL HISTORY: Abdominal pain. Abdominal pain, acute, nonlocalized COMPARISON: <Comparisons> TECHNIQUE: CT imaging of the abdomen and pelvis was performed without contrast. Solid organ, bowel a nd vascular assessment is limited due to lack of IV and oral contrast. All CT scans are performed using dose optimization technique as appropriate and may include automated exposure control or mA/KV adjustment according to patient size. FINDINGS: Hazy ground-glass opacity is present in the right lower lobe with a small right pleural ef fusion, suspicious for infection/developing pneumonia. The liver, spleen, pancreas, adrenal glands and kidneys are within normal limits for a limited non-co ntrast examination. No bowel obstruction, free air, free fluid or abscess. Significant fecal retention particularly in th e rectum. The appendix is normal. The osseous structures are within normal limits. IMPRESSION: Developing right lower lobe pneumonia/infection suspected. Significant fecal retention rectum. A limited non-contrast examination was performed as detailed.
[2022-01-04] MEDS ORDERED: ONDANSETRON 4 MG (ODT) TAB ONE (16:59)
[2022-01-04 17:11] LABS: Urine Blood 1+ (Negative); Urine Glucose Trace (Negative); Urine Protein 3+ (Negative); Urine Specific Gravity 1.025 (1.005-1.030)
[2022-01-04] MEDS ORDERED: AMOX/K CLAV 875 MG TAB ONE (17:11)
[2022-01-04 17:12] LABS: SARS-CoV-2 Antigen Rapid Res Negative (Negative)
--- NOTE | 2022-01-04 17:44 | ER ---
Nurse's Notes [facility] Name: Gasper Fry Age: 61 yrs Sex: Male : 1960 Arrival Date: 01/04/2022 Time: 13:45 Bed 6 Private MD: Diagnosis: Vomiting;Diarrhea, unspecified;Acute upper respiratory infection, unspecified;Unspecified kidney failure-chronic;Constipation-impaction;Anemia, unspecified Presentation: 01/04 14:28 Chief complaint: Patient states: vomiting, nausea , abd pains, chills X 4 days, thinks iw he was exposed to COVID. Coronavirus screen: Client presents with at least one sign or symptom that may indicate coronavirus-19. Ebola Screen: Patient negative for fever greater than or equal to 101.5 degrees Fahrenheit, and additional compatible Ebola Virus Disease symptoms Patient denies exposure to infectious person. Patient denies travel to an Ebola-affected area in the 21 days before illness onset. No symptoms or risks identified at this time. Onset of symptoms was December 31, 2021. 14:28 Method Of Arrival: Wheelchair iw 14:28 Acuity: DARREL 3 iw 18:04 Initial Sepsis Screen: Does the patient meet any 2 criteria? No. Patient's initial ll1 sepsis screen is negative. Does the patient have a suspected source of infection? Yes: Acute abdominal pain. Risk Assessment: Do you want to hurt yourself or someone else? Patient reports no desire to harm self or others. Historical: - Allergies: 14:29 Haldol (Anaphylaxis); iw - Home Meds: 14:29 Adderall XR 30 mg Oral cp24 1 cap twice a day [Active]; amlodipine 10 mg tab 1 tab once iw daily [Active]; atorvastatin 40 mg Oral tab 1 tab once daily [Active]; benztropine 0.5 mg Oral tab 1 tab 2 times per day [Active]; Cogentin Oral 0.5 mg twice a day [Active]; Eliquis 5 mg Oral tab 1 tab 2 times per day [Active]; Depakote 500 mg Oral TbEC [Active]; Farxiga 5 mg Oral tab 1 tab once daily [Active]; glipizide 2.5 mg Oral tr24 [Active]; Glucophage Oral [Active]; hydrocodone-acetaminophen 10-325 mg Oral tab 1 tab twice a day [Active]; isosorbide [Active]; Klonopin 0.5 mg Oral tab 1 tab 2 times per day [Active]; Lexapro 10 mg Oral tab [Active]; losartan 50 mg Oral tab 1 tab once daily [Active]; Novolin 70/30 Innolet 45 units Sub-Q 45 units twice a day with meals [Active]; metoprolol tartrate 25 mg Oral tab [Active]; sodium bicarbonate 650 mg Oral tab [Active]; Risperdal 4 mg Oral tab 1 tab 2 times per day [Active]; tamsulosin 0.4 mg Oral cap [Active]; tramadol 50 mg Oral tab 1 tab twice a day [Active]; Victoza 2-Reid subcutaneous [Active]; - PMHx: 14:29 ADD/ADHD; neuropathy; Congestive heart failure; CVA; Schizophrenia; Chronic pain; iw Diabetes - IDDM; Hypertension; Parkinson's disease; Seizures; unstable angina; Cellulitis; Bipolar disorder; Anxiety; - Immunization history:: Adult Immunizations up to date. - Social history:: Smoking status: Patient/guardian denies using tobacco, the patient reports quitting approximately 3 years ago. Screenin:03 Abuse screen: Denies threats or abuse. Nutritional screening: No deficits noted. ll1 Tuberculosis screening: No symptoms or risk factors identified. Fall Risk Gait- Weak (10 pts.). Total Martínez Fall Scale indicates Low Risk Score (25-44 pts). Fall prevention measures have been instituted. Side Rails Up X 2 Placed close to Nursing Station Frequent Obs/Assesments occuring Family Present and informed to notify staff if they need to leave bedside As available Patient and Family Educated on Fall Prevention Program and strategies. Assessment: 16:00 General: Appears ill, Behavior is calm, cooperative, appropriate for age. Pain: Denies ll1 pain. GI: Bowel sounds present X 4 quads. Abd is soft and non tender X 4 quads. Reports cramping, diarrhea, nausea, vomiting. 17:00 Reassessment: No changes from previously documented assessment. Patient and/or family ll1 updated on plan of care and expected duration. Pain level reassessed. Patient is alert, oriented x 3, equal unlabored respirations, skin warm/dry/pink. 18:00 Reassessment: No changes from previously documented assessment. Patient and/or family ll1 updated on plan of care and expected duration. Pain level reassessed. Patient is alert, oriented x 3, equal unlabored respirations, skin warm/dry/pink. Vital Signs: 14:59 BP 161 / 84; Pulse 71; Resp 16; Temp 98.1; Pulse Ox 97% on R/A; iw 18:02 BP 161 / 81; Pulse 79; Resp 17; Pulse Ox 96% on R/A; ll1 [place] Coma Score: 17:42 Eye Response: spontaneous(4). Verbal Response: oriented(5). Motor Response: obeys jerome commands(6). Total: 15. ED Course: 13:45 Patient arrived in ED. mr 14:29 Triage completed. iw 14:30 Arm band placed on. iw 15:34 Lance Ponce MD is Attending Physician. [facility] 15:42 Keira Roy, MALU is Primary Nurse. ll1 16:15 Missed attempt(s): 22 gauge in right antecubital area. Bleeding controlled, band aid ll1 applied, catheter tip intact. 16:36 CT Abd/Pelvis - Without Contrast In Process Unspecified. EDMS 17:18 Chest Single View XRAY In Process Unspecified. EDMS 18:03 No provider procedures requiring assistance completed. Patient did not have IV access ll1 during this emergency room visit. 18:04 Patient has correct armband on for positive identification. Bed in low position. Call ll1 light in reach. Side rails up X2. Client placed on continuous cardiac and pulse oximetry monitoring. NIBP monitoring applied. licensed prosthetist/orthotist on. Administered Medications: 16:59 Not Given (no IV): NS 0.9% 500 ml IV at bolus once ll1 16:59 Not Given (no IV): Zofran (Ondansetron) 4 mg IVP once; over 2 minutes ll1 17:11 Drug: Augmentin (Amoxicillin-Clavulanate) 875 mg Route: PO; ll1 18:04 Follow up: Response: No adverse reaction ll1 Medication: 18:05 VIS not applicable for this client. ll1 Outcome: 17:44 Discharge ordered by . jerome 18:03 Discharged to home via ambulance. ll1 18:03 Condition: stable 18:03 Discharge instructions given to patient, family, Instructed on discharge instructions, follow up and referral plans. medication usage, Demonstrated understanding of instructions, follow-up care, medications, Prescriptions given X 2. 18:05 Patient left the ED. ll1 Signatures: Dispatcher [employer] EDLance Cummins MD MD cha Rivera, Sienna Ju Moore RN RN iw Lewis, Lynsay, RN RN ll1
--- NOTE | 2022-01-04 17:44 | EDPHYS ---
Physician Documentation [facility] Name: Gasper Fry Age: 61 yrs Sex: Male : 1960 Arrival Date: 01/04/2022 Time: 13:45 Bed 6 Private MD: OLEG Physician Lance Ponce HPI: 01/04 16:06 This 61 yrs old Male presents to ER via Wheelchair with complaints of jerome Abdominal Pain, Vomiting/Diarrhea. 16:06 The patient presents to the emergency department with nausea, vomiting, diarrhea, that jerome is intermittent. Onset: The symptoms/episode began/occurred 2 day(s) ago. Possible causes: unknown. The symptoms are aggravated by. Associated signs and symptoms: Pertinent positives: diarrhea, nausea, vomiting. Severity of symptoms: At their worst the symptoms were mild moderate in the emergency department the symptoms have improved mildly. The patient has experienced similar episodes in the past, a few times. Historical: - Allergies: 14:29 Haldol (Anaphylaxis); iw - Home Meds: 14:29 Adderall XR 30 mg Oral cp24 1 cap twice a day [Active]; amlodipine 10 mg tab 1 tab once iw daily [Active]; atorvastatin 40 mg Oral tab 1 tab once daily [Active]; benztropine 0.5 mg Oral tab 1 tab 2 times per day [Active]; Cogentin Oral 0.5 mg twice a day [Active]; Eliquis 5 mg Oral tab 1 tab 2 times per day [Active]; Depakote 500 mg Oral TbEC [Active]; Farxiga 5 mg Oral tab 1 tab once daily [Active]; glipizide 2.5 mg Oral tr24 [Active]; Glucophage Oral [Active]; hydrocodone-acetaminophen 10-325 mg Oral tab 1 tab twice a day [Active]; isosorbide [Active]; Klonopin 0.5 mg Oral tab 1 tab 2 times per day [Active]; Lexapro 10 mg Oral tab [Active]; losartan 50 mg Oral tab 1 tab once daily [Active]; Novolin 70/30 In[place] 45 units Sub-Q 45 units twice a day with meals [Active]; metoprolol tartrate 25 mg Oral tab [Active]; sodium bicarbonate 650 mg Oral tab [Active]; Risperdal 4 mg Oral tab 1 tab 2 times per day [Active]; tamsulosin 0.4 mg Oral cap [Active]; tramadol 50 mg Oral tab 1 tab twice a day [Active]; Victoza 2-Reid subcutaneous [Active]; - PMHx: 14:29 ADD/ADHD; neuropathy; Congestive heart failure; CVA; Schizophrenia; Chronic pain; iw Diabetes - IDDM; Hypertension; Parkinson's disease; Seizures; unstable angina; Cellulitis; Bipolar disorder; Anxiety; - Immunization history:: Adult Immunizations up to date. - Social history:: Smoking status: Patient/guardian denies using tobacco, the patient reports quitting approximately 3 years ago. ROS: 16:10 Constitutional: Negative for fever, chills, and weight loss, Eyes: Negative for injury, jerome pain, redness, and discharge, ENT: Negative for injury, pain, and discharge, Neck: Negative for injury, pain, and swelling, Cardiovascular: Negative for chest pain, palpitations, and edema, Respiratory: Negative for shortness of breath, cough, wheezing, and pleuritic chest pain, Back: Negative for injury and pain, : Negative for injury, bleeding, discharge, and swelling, MS/Extremity: Negative for injury and deformity, Skin: Negative for injury, rash, and discoloration, Neuro: Negative for headache, weakness, numbness, tingling, and seizure, Psych: Negative for depression, anxiety, suicide ideation, homicidal ideation, and hallucinations, Allergy/Immunology: Negative for hives, rash, and allergies, Endocrine: Negative for neck swelling, polydipsia, polyuria, polyphagia, and marked weight changes, Hematologic/Lymphatic: Negative for swollen nodes, abnormal bleeding, and unusual bruising. 16:10 Abdomen/GI: Positive for abdominal pain, nausea, vomiting, and diarrhea, diarrhea. Exam: 16:10 Constitutional: This is a well developed, well nourished patient who is awake, alert, jerome and in no acute distress. Head/Face: Normocephalic, atraumatic. Eyes: Pupils equal round and reactive to light, extra-ocular motions intact. Lids and lashes normal. Conjunctiva and sclera are non-icteric and not injected. Cornea within normal limits. Periorbital areas with no swelling, redness, or edema. ENT: Nares patent. No nasal discharge, no septal abnormalities noted. Tympanic membranes are normal and external auditory canals are clear. Oropharynx with no redness, swelling, or masses, exudates, or evidence of obstruction, uvula midline. Mucous membranes moist. Neck: Trachea midline, no thyromegaly or masses palpated, and no cervical lymphadenopathy. Supple, full range of motion without nuchal rigidity, or vertebral point tenderness. No Meningismus. Chest/axilla: Normal chest wall appearance and motion. Nontender with no deformity. No lesions are appreciated. Cardiovascular: Regular rate and rhythm with a normal S1 and S2. No gallops, murmurs, or rubs. Normal PMI, no JVD. No pulse deficits. Respiratory: Lungs have equal breath sounds bilaterally, clear to auscultation and percussion. No rales, rhonchi or wheezes noted. No increased work of breathing, no retractions or nasal flaring. Back: No spinal tenderness. No costovertebral tenderness. Full range of motion. Male : Normal genitalia with no discharge or lesions. Skin: Warm, dry with normal turgor. Normal color with no rashes, no lesions, and no evidence of cellulitis. MS/ Extremity: Pulses equal, no cyanosis. Neurovascular intact. Full, normal range of motion. Neuro: Awake and alert, GCS 15, oriented to person, place, time, and situation. Cranial nerves II-XII grossly intact. Motor strength 5/5 in all extremities. Sensory grossly intact. Cerebellar exam normal. Normal gait. Psych: Awake, alert, with orientation to person, place and time. Behavior, mood, and affect are within normal limits. 16:10 Abdomen/GI: Inspection: distension, Bowel sounds: normal, active, all quadrants, Palpation: nontender, Liver: no appreciated palpable abnormalities, Hernia: not appreciated. 16:57 ECG was reviewed by the Attending Physician. [facility] Vital Signs: 14:59 BP 161 / 84; Pulse 71; Resp 16; Temp 98.1; Pulse Ox 97% on R/A; iw 18:02 BP 161 / 81; Pulse 79; Resp 17; Pulse Ox 96% on R/A; ll1 Nicole Coma Score: 17:42 Eye Response: spontaneous(4). Verbal Response: oriented(5). Motor Response: obeys [facility] commands(6). Total: 15. MDM: 15:34 Patient medically screened. [facility] 16:12 Differential diagnosis: Nonspecific abd pain, pancreatitis, diverticulitis, viral jerome gastroenteritis, gastroenteritis. Data reviewed: vital signs, nurses notes, lab test result(s), EKG, radiologic studies, CT scan. Data interpreted: compliance monitor: rate is 71 beats/min, rhythm is regular, Pulse oximetry: on room air is 97 %. Test interpretation: by ED physician or midlevel provider: ECG, plain radiologic studies. Counseling: I had a detailed discussion with the patient and/or guardian regarding: the historical points, exam findings, and any diagnostic results supporting the discharge/admit diagnosis, lab results, radiology results, the need for outpatient follow up, for definitive care, a family practitioner. 17:42 ED course: pt not taking his Depakote as prescribed, makes him sleepy. [facility] 01/04 14:32 Order name: CBC with Diff; Complete Time: 15:37 01/04 14:32 Order name: CMP; Complete Time: 15:37 01/04 14:32 Order name: Lipase; Complete Time: 15:37 01/04 14:32 Order name: SARS-COV-2 RT PCR (Document "Date of Onset" if Symptomatic); Complete Time: 17:13 01/04 15:39 Order name: SARS RAPID; Complete Time: 17:13 [facility] 01/04 15:39 Order name: CT Abd/Pelvis - Without Contrast; Complete Time: 16:52 [facility] 01/04 16:41 Order name: Troponin High Sensitivity; Complete Time: 17:13 [facility] 01/04 16:53 Order name: Chest Single View XRAY [facility] 01/04 17:11 Order name: Urine Dipstick-Ancillary; Complete Time: 17:13 [facility] 01/04 14:32 Order name: IV Saline Lock; Complete Time: 14:59 01/04 14:32 Order name: Labs collected and sent; Complete Time: 14:59 01/04 14:32 Order name: Urine Dipstick-Ancillary (obtain specimen); Complete Time: 17:11 01/04 15:56 Order name: EKG; Complete Time: 15:58 [facility] 01/04 15:56 Order name: EKG - Nurse/Tech; Complete Time: 16:58 [facility] EC:57 Rate is 83 beats/min. Rhythm is regular. QRS [place] is Normal. [place] interval is normal. QRS jerome interval is normal. QT interval is normal. No Q waves. T waves are Normal. No ST changes noted. Clinical impression: NSR w/ Non-specific ST/T Changes and No evidence of ischemia. Interpreted by me. Reviewed by me. Administered Medications: 16:59 Not Given (no IV): NS 0.9% 500 ml IV at bolus once ll1 16:59 Not Given (no IV): Zofran (Ondansetron) 4 mg IVP once; over 2 minutes ll1 17:11 Drug: Augmentin (Amoxicillin-Clavulanate) 875 mg Route: PO; ll1 18:04 Follow up: Response: No adverse reaction ll1 Disposition Summary: 01/04/22 17:44 Discharge Ordered Location: Home [facility] Problem: new [facility] Symptoms: have improved [facility] Condition: Stable jerome Diagnosis - Vomiting jerome - Diarrhea, unspecified jerome - Acute upper respiratory infection, unspecified jerome - Unspecified kidney failure - chronic jerome - Constipation - impaction jerome - Anemia, unspecified jerome Followup: jerome - With: Private Physician - When: 2 - 3 days - Reason: Recheck today's complaints, Continuance of care, Re-evaluation by your physician Discharge Instructions: - Discharge Summary Sheet jerome - Anemia jerome - Food Choices to Help Relieve Diarrhea, Adult jerome - Diarrhea, Adult jerome - Diarrhea, Adult, [id number] jerome - Upper Respiratory Infection, Adult jerome - Vomiting, Adult jerome - Cough, Adult jerome - Chronic Kidney Disease, Adult, [id number] jerome Forms: - Medication Reconciliation Form [facility] - Thank You Letter [facility] - Antibiotic Education [facility] - Prescription Opioid Use [facility] Prescriptions: - Zofran 4 mg Oral Tablet - take 1 tablet by ORAL route every 12 hours As needed; 20 tablet; Refills: 0, [facility] Product Selection Permitted - Augmentin 875-125 mg Oral Tablet - take 1 tablet by ORAL route every 12 hours for 10 days; 20 tablet; Refills: 0, [facility] Product Selection Permitted Signatures: Dispatcher [employer] EDLance Cummins MD MD cha Williams, Irene, RN RN iw Lewis, Lynsay, RN RN ll1 Corrections: (The following items were deleted from the chart) 18:04 16:58 BLOOD CULTURE*+[id number] ordered. EDKY EDMS
--- NOTE | 2022-01-04 18:33 | RAD REPORT ---
EXAM DESCRIPTION: RAD - Chest Single View - 01/04/2022 5:16 pm CLINICAL HISTORY: COUGH Chest pain. COMPARISON: <Comparisons> FINDINGS: Portable technique limits examination quality. Mild linear atelectasis is present in the right lung base. Interstitial opacities bilaterally may rep resent a viral infection or interstitial edema. The heart is normal in size.
[2022-01-04 19:07] VITALS: TEMP 98.1
[2022-01-04 19:09] VITALS: BP 161/81; O2SAT 96
--- NOTE | 2022-01-06 16:58 | EKG ---
Test Date: 2022-01-04 Test Time: 16:58:08 Digital Asset Specialist: BARBARA MEASUREMENT RESULTS: Intervals: Rate: 83 ID: [id number] QRSD: 94 QT: 398 QTc: 467 [place]: P: 47 ID: [id number] QRS: -75 T: 52 INTERPRETIVE STATEMENTS: Normal sinus rhythm Left anterior fascicular block Possible Anterior infarct, age undetermined Abnormal ECG Compared to ECG 12/25/2021 09:03:35 Left anterior fascicular block now present Myocardial infarct finding still present Electronically Signed On 01-06-22 16:57:13 CDT by Ashu Gardiner
== END 2022-01-04 18:05 | disposition home or self-care (01) ==
LOC: ER 13:43
DX: R11.2 Nausea with vomiting, unspecified (principal); R19.7 Diarrhea, unspecified; J06.9 Acute upper respiratory infection, unspecified; K56.41 Fecal impaction; E11.22 Type 2 diabetes mellitus with diabetic chronic kidney disease; I13.0 Hypertensive heart and chronic kidney disease with heart failure and stage 1 through stage 4 chronic kidney disease, or unspecified chronic kidney disease; N18.9 Chronic kidney disease, unspecified; I50.9 Heart failure, unspecified; D64.9 Anemia, unspecified; G20 Parkinson's disease; Z20.822 Contact with and (suspected) exposure to COVID-19; Z79.01 Long term (current) use of anticoagulants; Z79.4 Long term (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; Z88.5 Allergy status to narcotic agent
CPT/HCPCS: 85025; 36415; 81003; 84484; 83690; 80053; 74176; 71045; 87811; U0003; Q0162; J7040; J2405; 93005; 99284

== ENCOUNTER 2022-01-05 09:04 | Emergency (ER) | payer OTHER ==
[2022-01-05 11:59] LABS: Absolute Lymphocytes (CBC) 0.9 K/uL (0.7-4.9); Hematocrit 28.1 % (39.6-49.0); Lymphocytes % 20.6 % (15.3-44.8); MCV 87.9 fL (80-100)
[2022-01-05] MEDS ORDERED: ONDANSETRON 4 MG/2 ML VIAL ONE (11:59)
[2022-01-05] MEDS ORDERED: FLEET ENEMA ADULT PR ONE (11:59)
[2022-01-05] MEDS ORDERED: NA CHLORIDE 0.9% 1,000 ML ONE (11:59)
[2022-01-05 12:27] LABS: Bilirubin Total 0.3 mg/dL (0.2-1.0); Potassium 4.7 mmol/L (3.5-5.1); Protein, Total 7.5 g/dL (6.4-8.2)
[2022-01-05 13:35] LABS: Urine Blood 2+ (Negative); Urine Glucose Trace (Negative); Urine Protein 3+ (Negative)
--- NOTE | 2022-01-05 14:00 | ER ---
Nurse's Notes [facility] Name: Gasper Fry Age: 61 yrs Sex: Male : 1960 Arrival Date: 01/05/2022 Time: 09:06 Bed 14 Private MD: Iza Lagos Diagnosis: Constipation;Fecal impaction Presentation: 01/05 09:16 Chief complaint: Patient states: N/V that began 4-5 days ago. Pt was seen in ER for ss same complaint. Coronavirus screen: Client denies travel out of the [place] in the last 14 days. Ebola Screen: Patient denies exposure to infectious person. Patient denies travel to an Ebola-affected area in the 21 days before illness onset. Initial Sepsis Screen: Does the patient meet any 2 criteria? No. Patient's initial sepsis screen is negative. Does the patient have a suspected source of infection? No. Patient's initial sepsis screen is negative. Risk Assessment: Do you want to hurt yourself or someone else? Patient reports no desire to harm self or others. Onset of symptoms was December 31, 2021. 09:16 Method Of Arrival: Wheelchair ss 09:16 Acuity: DARREL 3 ss Historical: - Allergies: 09:17 Haldol (Anaphylaxis); ss - PMHx: 09:17 ADD/ADHD; Anxiety; Bipolar disorder; Seizures; neuropathy; Parkinson's disease; ss unstable angina; Schizophrenia; Hypertension; Diabetes - IDDM; CVA; Congestive heart failure; Chronic pain; Cellulitis; - Immunization history:: Client reports receiving the 2nd dose of the Covid vaccine. - Social history:: Smoking status: Patient reports the use of cigarette tobacco products, smokes one-half pack cigarettes per day. Assessment: 11:35 General: Appears ill, Behavior is cooperative, appropriate for age. Pain: Complains of ll1 pain in abdomen Quality of pain is described as aching. Neuro: No deficits noted. Cardiovascular: No deficits noted. GI: Abdomen is flat, Bowel sounds present X 4 quads. Abd is soft and non tender X 4 quads. Reports lower abdominal pain, upper abdominal pain, constipation, cramping, nausea, vomiting. 12:30 Reassessment: No changes from previously documented assessment. Patient and/or family ll1 updated on plan of care and expected duration. Pain level reassessed. Patient is alert, oriented x 3, equal unlabored respirations, skin warm/dry/pink. 13:30 Reassessment: No changes from previously documented assessment. Patient and/or family ll1 updated on plan of care and expected duration. Pain level reassessed. Patient is alert, oriented x 3, equal unlabored respirations, skin warm/dry/pink. 14:17 Reassessment: No changes from previously documented assessment. Patient and/or family ll1 updated on plan of care and expected duration. Pain level reassessed. Patient is alert, oriented x 3, equal unlabored respirations, skin warm/dry/pink. Patient states feeling better. Vital Signs: 09:16 BP 161 / 95; Pulse 81; Resp 16; Temp 97.5(TE); Pulse Ox 97% on R/A; Weight 95.25 kg; ss Height 5 ft. 11 in. (180.34 cm); 14:15 BP 151 / 91; Pulse 80; Resp 16; Pulse Ox 97% ; Pain 3/10; ll1 09:16 Body Mass Index 29.29 (95.25 kg, 180.34 cm) ED Course: 09:06 Patient arrived in ED. mr 09:07 Iza Lagos is Private Physician. mr 09:08 Carmen Finnegan MD is Attending Physician. sd2 09:17 Triage completed. ss 09:17 Arm band placed on right wrist. ss 11:36 Keira Roy, RN is Primary Nurse. ll1 11:36 Patient placed in an exam room, on a stretcher. ll1 12:00 Inserted saline lock: 22 gauge in left antecubital area, using aseptic technique. Blood ll1 collected. 12:13 EKG done, by ED staff, reviewed by Keira Roy RN. mb7 13:59 Iza Lagos is Referral Physician. sd2 14:15 No provider procedures requiring assistance completed. IV discontinued, intact, ll1 bleeding controlled, No redness/swelling at site. Pressure dressing applied. Administered Medications: 12:00 Drug: NS 0.9% 1000 ml Route: IV; Rate: 125 ml/hr; Site: left antecubital; ss 14:07 Follow up: Response: No adverse reaction; IV Status: Completed infusion; IV Intake: ll1 500ml 12:00 Drug: Zofran (Ondansetron) 4 mg Route: IVP; Site: left antecubital; ss 13:37 Follow up: Response: No adverse reaction ss 12:30 Drug: Fleet Enema (sodium phosphate) 133 ml Route: MO; ss 13:36 Follow up: Response: No adverse reaction ss 14:07 Drug: Phenergan (promethazine) 12.5 mg Route: IVP; Site: left antecubital; ll1 14:08 Follow up: Response: No adverse reaction 1 Intake: 14:07 IV: 500ml; Total: 500ml. 1 Outcome: 13:59 Discharge ordered by . [email or web address] 14:18 Patient left the ED. 1 Signatures: Sienna Howe Shelby, RN RN ss Lewis, Lynsay, RN RN 1 Sienna Llanos Stephanie, MD MD sd2
--- NOTE | 2022-01-05 14:00 | EDPHYS ---
Physician Documentation [facility] Name: Gasper Fry Age: 61 yrs Sex: Male : 1960 Arrival Date: 01/05/2022 Time: 09:06 Bed 14 Private MD: Iza Lagos ED Physician Carmen Finnegan HPI: 01/05 09:28 This 61 yrs old Male presents to ER via Wheelchair with complaints of sd2 Abdominal Pain, Vomiting. 09:28 61 yo M well known to this facility presents with chief complaint of nausea and sd2 vomiting for the past 4 days. Pt reports being seen yesterday at our facility with negative labs and CT scan and sent home with prescription medications. Reports he took them last night and this morning without relief. Reports mild abdominal pain and subjective fever. Reports BGL has been running in the 170s. Father at bedside reports himself and his have had nausea this week as well but has since resolved. . Historical: - Allergies: 09:17 Haldol (Anaphylaxis); ss - PMHx: 09:17 ADD/ADHD; Anxiety; Bipolar disorder; Seizures; neuropathy; Parkinson's disease; ss unstable angina; Schizophrenia; Hypertension; Diabetes - IDDM; CVA; Congestive heart failure; Chronic pain; Cellulitis; - Immunization history:: Client reports receiving the 2nd dose of the Covid vaccine. - Social history:: Smoking status: Patient reports the use of cigarette tobacco products, smokes one-half pack cigarettes per day. ROS: 09:28 Constitutional: Negative for fever, chills, and weight loss, Eyes: Negative for injury, sd2 pain, redness, and discharge, Cardiovascular: Negative for chest pain, palpitations, and edema, Respiratory: Negative for shortness of breath, cough, wheezing. MS/Extremity: Negative for injury and deformity, Skin: Negative for injury, rash, and discoloration, Neuro: Negative for headache, numbness and tingling. 09:28 Abdomen/GI: Positive for abdominal pain, nausea and vomiting, diarrhea, Negative for hematemesis. Exam: 09:28 Constitutional: This is a well developed, well nourished patient who is awake, alert, sd2 and in no acute distress. Head/Face: Normocephalic, atraumatic. Chest/axilla: Normal chest wall appearance and motion. Nontender with no deformity. Cardiovascular: Regular rate and rhythm with a normal S1 and S2. No gallops, murmurs, or rubs. 2+ distal pulses. Respiratory: Lungs have equal breath sounds bilaterally, clear to auscultation and percussion. No rales, rhonchi or wheezes noted. No increased work of breathing, no retractions or nasal flaring. Abdomen/GI: Soft, mild generalized tenderness, with normal bowel sounds. No guarding or rebound. Skin: Warm, dry with normal turgor. Normal color with no rashes, no lesions, and no evidence of cellulitis. MS/ Extremity: Pulses equal, no cyanosis. Neurovascular intact. Full, normal range of motion. Ambulatory without difficulty. Psych: Awake, alert, with orientation to person, place and time. Behavior, mood, and affect are within normal limits. 12:32 ECG was reviewed by the Attending Physician. NSR, rate 82, no STEMI criteria sd2 Vital Signs: 09:16 BP 161 / 95; Pulse 81; Resp 16; Temp 97.5(TE); Pulse Ox 97% on R/A; Weight 95.25 kg; ss Height 5 ft. 11 in. (180.34 cm); 14:15 BP 151 / 91; Pulse 80; Resp 16; Pulse Ox 97% ; Pain 3/10; ll1 09:16 Body Mass Index 29.29 (95.25 kg, 180.34 cm) ss MDM: 09:28 Differential diagnosis: Nonspecific abd pain, gastritis, cholecystitis, pancreatitis, sd2 appendicitis, diverticulitis, viral gastroenteritis, among others. Data reviewed: vital signs, nurses notes. 09:33 Patient medically screened. sd2 15:12 Counseling: I had a detailed discussion with the patient and/or guardian regarding: the sd2 historical points, exam findings, and any diagnostic results supporting the discharge/admit diagnosis, lab results, radiology results, the need for outpatient follow up, to return to the emergency department if symptoms worsen or persist or if there are any questions or concerns that arise at home. Medical screen evaluation completed. [facility] emergency medical condition absent. ED course: Discussed results with patient. Labs and prior CT imaging reviewed which showed fecal impaction. Labs grossly WNCL today. Pt on tramadol at home which is likely etiology of constipation. FLEET enema given and patient had bowel movement. Advised starting daily bowel regimen and holding off on his Tramadol with plan for follow up with PCP. Will also Rx phenergan as Zofran had not been helping with the nausea at home. Pt verbalizes understanding of discharge plan and strict return precautions.. 01/05 09:26 Order name: CBC with Diff; Complete Time: 12:20 sd2 01/05 09:26 Order name: CMP; Complete Time: 13:42 sd2 01/05 09:26 Order name: Lipase; Complete Time: 13:42 sd2 01/05 09:26 Order name: Urine Microscopic Only; Complete Time: 14:13 sd2 01/05 09:26 Order name: Troponin High Sensitivity; Complete Time: 13:42 sd2 01/05 13:36 Order name: Urine Dipstick-Ancillary; Complete Time: 13:42 EDMS 01/05 09:26 Order name: Urine Dipstick-Ancillary (obtain specimen); Complete Time: 11:47 sd2 01/05 09:26 Order name: EKG - Nurse/Tech; Complete Time: 13:13 sd2 Administered Medications: 12:00 Drug: NS 0.9% 1000 ml Route: IV; Rate: 125 ml/hr; Site: left antecubital; ss 14:07 Follow up: Response: No adverse reaction; IV Status: Completed infusion; IV Intake: ll1 500ml 12:00 Drug: Zofran (Ondansetron) 4 mg Route: IVP; Site: left antecubital; ss 13:37 Follow up: Response: No adverse reaction ss 12:30 Drug: Fleet Enema (sodium phosphate) 133 ml Route: CA; ss 13:36 Follow up: Response: No adverse reaction ss 14:07 Drug: Phenergan (promethazine) 12.5 mg Route: IVP; Site: left antecubital; ll1 14:08 Follow up: Response: No adverse reaction ll1 Disposition Summary: 01/05/22 13:59 Discharge Ordered Location: Home sd2 Problem: an ongoing problem sd2 Symptoms: have improved sd2 Condition: Stable sd2 Diagnosis - Constipation sd2 - Fecal impaction sd2 Followup: sd2 - With: Iza Lagos - When: 2 - 3 days - Reason: Recheck today's complaints, Continuance of care, Re-evaluation by your physician Followup: sd2 - With: Emergency Department - When: As needed - Reason: Discharge Instructions: - Discharge Summary Sheet sd2 - Constipation, Adult sd2 - Fecal Impaction sd2 Forms: - Medication Reconciliation Form sd2 - Thank You Letter sd2 - Antibiotic Education sd2 - Prescription Opioid Use sd2 Prescriptions: - Polyethylene glycol (bulk) - take 17 gram by ORAL route 2-3 times daily for 30 days; 1020 gram; Refills: 0, sd2 Product Selection Permitted - promethazine 25 mg Oral Tablet - take 1 tablet by ORAL route every 6 hours As needed; 20 tablet; Refills: 0, sd2 Product Selection Permitted Signatures: Dispatcher [employer] [address]gi [address] RN RN ss Lewis, Lynsay, RN RN [facility] Carmen Finnegan MD MD sd2
[2022-01-05 14:11] LABS: Urine RBC <5 /HPF (None Seen)
[2022-01-05 14:12] LABS: Urine Bacteria <20 /HPF (<20)
[2022-01-05] MEDS ORDERED: PROMETHAZINE INJ 25 MG/ML AMP ONE (14:12)
[2022-01-05 14:56] VITALS: TEMP 97.5; O2SAT 97
[2022-01-05 15:05] VITALS: BP 151/91
--- NOTE | 2022-01-07 12:25 | EKG ---
Test Date: 2022-01-05 Test Time: 12:04:02 Crayon Grader: MB MEASUREMENT RESULTS: Intervals: Rate: 82 SD: 158 QRSD: 100 QT: 404 QTc: 472 [place]: P: 50 SD: 158 QRS: -76 T: 32 INTERPRETIVE STATEMENTS: Normal sinus rhythm Pulmonary disease pattern Left anterior fascicular block Septal infarct, age undetermined Abnormal ECG Compared to ECG 01/04/2022 16:58:08 No significant changes Electronically Signed On 01-07-22 12:23:30 CDT by Ashu Gardiner
== END 2022-01-05 14:18 | disposition home or self-care (01) ==
LOC: ER 09:04
DX: K56.41 Fecal impaction (principal); R11.2 Nausea with vomiting, unspecified; I10 Essential (primary) hypertension; G20 Parkinson's disease; E11.9 Type 2 diabetes mellitus without complications; I50.9 Heart failure, unspecified; F17.210 Nicotine dependence, cigarettes, uncomplicated; Z88.5 Allergy status to narcotic agent
CPT/HCPCS: 96361; 93005; 85025; 36415; 84484; 83690; 80053; 96375; 96374; 99284; J2550; J7030; J2405; 81003; 81015

== ENCOUNTER 2022-01-12 13:40 | Emergency (ER) | payer OTHER ==
--- OUTSIDE RECORDS SUMMARY | 2022-01-12 13:43 | XMS REPORT | Clinical Summary ---
:1960 Author Organization [facility] MD Zabala [facility] Address [address] [place] [address] Care Team Providers Name Role Phone Unavailable [...] Vaccination (#1) 1960 Results Not on fileafter 01/12/2021 Insurance Payer Benefit Plan / Subscriber ID Effective Phone Address T ype Group Dates MEDICARE MEDICARE PART A [id number] 2004-Pres [phone] [facility] Medicare AND B ent [id number] [place] [address] [place] [id number] 2018-Pres [address] Medicaid TRADITIONAL TRADITIONAL ent [id number] [place] [address] Advance Directives Code Status Date Activated Date Inactivated Comments Full Code 12/19/2018 10:01 AM 12/25/2018 1:04 PM
--- OUTSIDE RECORDS SUMMARY | 2022-01-12 13:48 | XMS REPORT | Continuity of Care Document ---
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 mg 1-04 tablet by ity of tablet 00:00: mouth at 00 bedtime. Medical Branch DULoxetine 2020-06 Yes [id number] 40mg Take 40 mg [facility] 40 mg CpDR 1-04 by mouth ity o f 00:00: daily. Medical Branch benztropine 2020-06 Yes .5mg Take 0.5 [facility] [place] 1 mg tablet 1-04 tablets by it y of 00:00: mouth 2 (two) Medical times [place] daily. amLODIPine 2020-06 Yes [id number] 10mg Take 1 [facility] [place] 10 mg 1-04 tablet by ity of tablet 00:00: mouth at [place] bedtime. Medical Branch DULoxetine 2020-06 Yes [id number] 40mg Take 40 mg [facility] 40 mg CpDR 1-04 by mouth ity o f 00:00: daily. Medical Branch benztropine 2020-06 Yes .5mg Take 0.5 [place] 1 mg tablet 1-04 tablets by it y of 00:00: mouth 2 (two) Medical times Branch daily. amLODIPine 2020-06 Yes [id number] 10mg Take 1 [facility] [place] 10 mg 1-04 tablet by ity of tablet 00:00: mouth at [place] bedtime. Medical Branch DULoxetine 2020-06 Yes [id number] 40mg Take 40 mg [facility] 40 mg CpDR 1-04 by mouth ity o f 00:00: daily. Medical Branch benztropine 2020-06 Yes .5mg Take 0.5 [place] 1 mg tablet 1-04 tablets by it y of 00:00: mouth 2 (two) Medical times [place] daily. amLODIPine 2020-06 Yes [id number] 10mg Take 1 [facility] [place] 10 mg 1-04 tablet by ity of tablet 00:00: mouth at [place] bedtime. Medical Branch DULoxetine 2020-06 Yes [id number] 40mg Take 40 mg [facility] 40 mg CpDR 1-04 by mouth ity o f 00:00: daily. Medical Branch benztropine 2020-06 Yes .5mg Take 0.5 [place] 1 mg tablet 1-04 tablets by it y of 00:00: mouth 2 (two) Medical times [place] daily. amLODIPine 2020-06 Yes [id number] 10mg Take 1 [facility] [place] 10 mg 1-04 tablet by ity of tablet 00:00: mouth at [place] bedtime. Medical Branch DULoxetine 2020-06 Yes [id number] 40mg Take 40 mg [facility] 40 mg CpDR 1-04 by mouth ity o f 00:00: daily. Medical Branch benztropine 2020-06 Yes .5mg Take 0.5 [place] 1 mg tablet 1-04 tablets by it y of 00:00: mouth 2 00 (two) Medical times Branch daily. amLODIPine 2020-06 Yes [id number] 10mg Take 1 [facility] [place] 10 mg 1-04 tablet by ity of tablet 00:00: mouth at [place] 00 bedtime. Medical Branch DULoxetine 2020-06 Yes [id number] 40mg Take 40 mg [facility] 40 mg CpDR 1-04 by mouth ity o f 00:00: daily. Medical Branch benztropine 2020-06 Yes .5mg Take 0.5 [place] 1 mg tablet 1-04 tablets by it y of 00:00: mouth 2 00 (two) Medical times Branch daily. amLODIPine 2020-06 Yes [id number] 10mg Take 1 [facility] [place] 10 mg 1-04 tablet by ity of tablet 00:00: mouth at [place] 00 bedtime. Medical Branch DULoxetine 2020-06 Yes [id number] 40mg Take 40 mg [facility] 40 mg CpDR 1-04 by mouth ity o f 00:00: daily. Medical Branch sodium 2020-06- No [id number] 650mg Take 1 [facility] bicarbonate 1-04 06-16 5 tablet by it y of 650 mg 00:00: 00:00 mouth 2 [place] tablet 00 :00 (two) Medical times Branch daily. sodium 2020-06- No [id number] 650mg Take 1 [facility] bicarbonate 1-04 06-16 5 tablet by it y of 650 mg 00:00: 00:00 mouth 2 [place] tablet 00 :00 (two) Medical times Branch daily. atorvastati 2020-06 Yes [id number] 40mg Take 1 [facility] n (LIPITOR) 1-01 tablet by ity of 40 mg 00:00: mouth at [place] tablet 00 bedtime. Medical Branch atorvastati 2020-06 Yes [id number] 40mg Take 1 [facility] n (LIPITOR) 1-01 tablet by ity of 40 mg 00:00: mouth at [place] tablet 00 bedtime. Medical Branch atorvastati 2020-06 Yes [id number] 40mg Take 1 [facility] n (LIPITOR) 1-01 tablet by ity of 40 mg 00:00: mouth at [place] tablet 00 bedtime. Medical Branch atorvastati 2020-06 Yes [id number] 40mg Take 1 [facility] n (LIPITOR) 1-01 tablet by ity of 40 mg 00:00: mouth at [place] tablet 00 bedtime. Medical Branch atorvastati 2020-06 Yes [id number] 40mg Take 1 [facility] n (LIPITOR) 1-01 tablet by ity of 40 mg 00:00: mouth at [place] tablet 00 bedtime. Medical Branch atorvastati 2020-06 Yes [id number] 40mg Take 1 [facility] n (LIPITOR) 1-01 tablet by ity of 40 mg 00:00: mouth at [place] tablet 00 bedtime. Medical Branch atorvastati 2020-06 Yes [id number] 40mg Take 1 [facility] n (LIPITOR) 1-01 tablet by ity of 40 mg 00:00: mouth at [place] tablet 00 bedtime. Medical Branch bumetanide 2020-06- No [id number] 2mg Take 2 [facility] 1 mg tablet 0-25 -16 02 tablets by i ty of 00:00: 00:00 mouth 2 [place] 00 :00 (two) Medical times Branch daily. bumetanide 2020-06- No [id number] 2mg Take 2 [facility] 1 mg tablet 0-25 - 02 tablets by i ty of 00:00: 00:00 mouth 2 [place] 00 :00 (two) Medical times Branch daily. amitriptyli Yes [id number] 10mg Take 1 [facility] ne 10 mg 9-21 tablet by ity of tablet 00:00: mouth at [place] 00 bedtime. Medical Branch amitriptyli Yes [id number] 10mg Take 1 [facility] ne 10 mg 9-21 tablet by ity of tablet 00:00: mouth at [place] 00 bedtime. Medical Branch amitriptyli Yes [id number] 10mg Take 1 [facility] ne 10 mg 9-21 tablet by ity of tablet 00:00: mouth at [place] 00 bedtime. Medical Branch amitriptyli Yes [id number] 10mg Take 1 [facility] ne 10 mg 9-21 tablet by ity of tablet 00:00: mouth at [place] 00 bedtime. Medical Branch amitriptyli Yes [id number] 10mg Take 1 [facility] ne 10 mg 9-21 tablet by ity of tablet 00:00: mouth at [place] [address] bedtime. Medical Branch amitriptyli Yes [id number] 10mg Take 1 [facility] ne 10 mg 9-21 tablet by ity of tablet 00:00: mouth at [place] [address] bedtime. Medical Branch amitriptyli Yes [id number] 10mg Take 1 [facility] ne 10 mg 9-21 tablet by ity of tablet 00:00: mouth at [place] [address] bedtime. Medical Branch ADVAIR Yes [id number] INHALE 1 [facility] [place] DISKUS 9-03 PUFF BY ity of 250-50 00:00: MOUTH INTO [place] mcg/dose 00 THE LUNGS Medica l inhalation TWICE Branch disk DAILY ADVAIR Yes [id number] INHALE 1 [facility] [place] DISKUS 9-03 PUFF BY ity of 250-50 00:00: MOUTH INTO [place] mcg/dose 00 THE LUNGS Medica l inhalation TWICE Branch disk DAILY ADVAIR Yes [id number] INHALE 1 [place] DISKUS 9-03 PUFF BY ity of 250-50 00:00: MOUTH INTO [place] mcg/dose 00 THE LUNGS Medica l inhalation TWICE Branch disk DAILY ADVAIR Yes [id number] INHALE 1 [facility] [place] DISKUS 9-03 PUFF BY ity of 250-50 00:00: MOUTH INTO [place] mcg/dose 00 THE LUNGS Medica l inhalation TWICE Branch disk DAILY ADVAIR Yes [id number] INHALE 1 [facility] [place] DISKUS 9-03 PUFF BY ity of 250-50 00:00: MOUTH INTO [place] mcg/dose 00 THE LUNGS Medica l inhalation TWICE Branch disk DAILY ADVAIR Yes [id number] INHALE 1 [facility] [place] DISKUS 9-03 PUFF BY ity of 250-50 00:00: MOUTH INTO [place] mcg/dose 00 THE LUNGS Medica l inhalation TWICE Branch disk DAILY ADVAIR Yes [id number] INHALE 1 [place] DISKUS 9-03 PUFF BY ity of 250-50 00:00: MOUTH INTO [place] mcg/dose 00 THE LUNGS Medica l inhalation TWICE Branch disk DAILY bacitracin- 2022- No [id number] Apply to [facility] polymyxin B 02-08 area(s) 2 it y of 500-10,000 00:00: 00:00 (two) [place] unit/gram 00 :00 times Medical topical daily. Branch ointment bacitracin- 2021- No [id number] Apply to [facility] polymyxin B 02-08 area(s) 2 it y of 500-10,000 00:00: 00:00 (two) [place] unit/gram 00 :00 times Medical topical daily. Branch ointment ergocalcife Yes [id number] Take 1 [facility] rol, 8-30 capsule by ity of vitamin d2, 00:00: mouth [place] 1,250 mcg 00 weekly. Medical (50,000 Branch unit) capsule pantoprazol Yes [id number] 40mg Take 1 [facility] e 40 mg EC 8-30 tablet by ity of tablet 00:00: mouth 2 (two) Medical times Branch daily. Sennosides Yes [id number] 17.2mg Take 17.2 [facility] 17.2 mg Tab 8-30 mg by ity of 00:00: mouth [place] (two) Medical times Branch daily. albuterol Yes [id number] INHALE 2 [facility] 90 8-30 PUFFS INTO ity of mcg/actuati 00:00: THE LUNGS [place] on inhaler 00 THREE Medical TIMES Branch DAILY NEEDED FOR SHORTNESS OF BREATH apixaban Yes [id number] 5mg Take 1 [facility] (ELIQUIS) 5 8-30 tablet by ity of mg tablet 00:00: mouth 2 [place] (two) Medical times Branch daily. Indication s: atrial fibrillati on, a fib and DVT tamsulosin Yes [id number] .4mg Take 1 [facility] 0.4 mg 24 8-30 capsule by ity of hr capsule 00:00: mouth 2 [place] [facility] Medical times Branch daily. carvediloL Yes [id number] 25mg Take 1 [facility] 25 mg 8-30 tablet by ity of tablet 00:00: mouth 2 [place] (two) Medical times Branch daily with meals. ergocalcife Yes [id number] Take 1 [facility] rol, 8-30 capsule by ity of vitamin d2, 00:00: mouth [place] 1,250 mcg 00 weekly. Medical (50,000 Branch unit) capsule pantoprazol Yes [id number] 40mg Take 1 [facility] e 40 mg EC 8-30 tablet by ity of tablet 00:00: mouth 2 (two) Medical times Branch daily. Sennosides Yes [id number] 17.2mg Take 17.2 [facility] 17.2 mg Tab 8-30 mg by ity of 00:00: mouth 2 [place] (two) Medical times Branch daily. albuterol Yes [id number] INHALE 2 [facility] 90 8-30 PUFFS INTO ity of mcg/actuati 00:00: THE LUNGS [place] on inhaler 00 THREE Medical TIMES Branch DAILY NEEDED FOR SHORTNESS OF BREATH apixaban Yes [id number] 5mg Take 1 [facility] (ELIQUIS) 5 8-30 tablet by ity of mg tablet 00:00: mouth [place] (two) Medical times Branch daily. Indication s: atrial fibrillati on, a fib and DVT tamsulosin Yes [id number] .4mg Take 1 [facility] 0.4 mg 24 8-30 capsule by ity of hr capsule 00:00: mouth 2 [place] [facility] ([facility] Medical times Branch daily. carvediloL Yes [id number] 25mg Take 1 [facility] 25 mg 8-30 tablet by ity of tablet 00:00: mouth [place] (two) Medical times Branch daily with meals. ergocalcife Yes [id number] Take 1 [facility] rol, 8-30 capsule by ity of vitamin d2, 00:00: mouth [place] 1,250 mcg 00 weekly. Medical (50,000 Branch unit) capsule pantoprazol Yes [id number] 40mg Take 1 [facility] e 40 mg EC 8-30 tablet by ity of tablet 00:00: mouth [place] (two) Medical times Branch daily. Sennosides Yes [id number] 17.2mg Take 17.2 [facility] 17.2 mg Tab 8-30 mg by ity of 00:00: mouth 2 [place] (two) Medical times Branch daily. albuterol Yes [id number] INHALE 2 [facility] 90 8-30 PUFFS INTO ity of mcg/actuati 00:00: THE LUNGS [place] on inhaler 00 THREE Medical TIMES Branch DAILY NEEDED FOR SHORTNESS OF BREATH apixaban Yes [id number] 5mg Take 1 [facility] (ELIQUIS) 5 8-30 tablet by ity of mg tablet 00:00: mouth 2 (two) Medical times Branch daily. Indication s: atrial fibrillati on, a fib and DVT tamsulosin Yes [id number] .4mg Take 1 [facility] 0.4 mg 24 8-30 capsule by [place] of hr capsule 00:00: mouth 2 [place] (two) Medical times Branch daily. carvediloL Yes [id number] 25mg Take 1 [facility] 25 mg 8-30 tablet by ity of tablet 00:00: mouth 2 (two) Medical times Branch daily with meals. ergocalcife Yes [id number] Take 1 [facility] rol, 8-30 capsule by ity of vitamin d2, 00:00: mouth [place] 1,250 mcg 00 weekly. Medical (50,000 Branch unit) capsule pantoprazol Yes [id number] 40mg Take 1 [facility] e 40 mg EC 8-30 tablet by ity of tablet 00:00: mouth (two) Medical times Branch daily. Sennosides Yes [id number] 17.2mg Take 17.2 [facility] 17.2 mg Tab 8-30 mg by ity of 00:00: mouth 2 [place] (two) Medical times Branch daily. albuterol Yes [id number] INHALE 2 [facility] 90 8-30 PUFFS INTO [...] a fib and DVT tamsulosin 2020-0 Yes [id number] .4mg Take 1 [facility] 0.4 mg 24 8-30 capsule by ity of hr capsule 00:00: mouth 2 [place] (two) Medical times Branch daily. carvediloL Yes [id number] 25mg Take 1 [facility] 25 mg 8-30 tablet by ity of tablet 00:00: mouth (two) Medical times Branch daily with meals. ergocalcife Yes [id number] Take 1 [facility] rol, 8-30 capsule by ity of vitamin d2, 00:00: mouth [place] 1,250 mcg 00 weekly. Medical (50,000 Branch unit) capsule pantoprazol Yes [id number] 40mg Take 1 [facility] e 40 mg EC 8-30 tablet by ity of tablet 00:00: mouth (two) Medical times Branch daily. Sennosides Yes [id number] 17.2mg Take 17.2 [facility] 17.2 mg Tab 8-30 mg by ity of 00:00: mouth (two) Medical times Branch daily. albuterol Yes [id number] INHALE 2 [facility] 90 8-30 PUFFS INTO ity of mcg/actuati 00:00: THE LUNGS [place] on inhaler 00 THREE Medical TIMES Branch DAILY NEEDED FOR SHORTNESS OF BREATH apixaban Yes [id number] 5mg Take 1 [facility] (ELIQUIS) 5 8-30 tablet by ity of mg tablet 00:00: mouth (two) Medical times Branch daily. Indication s: atrial fibrillati on, a fib and DVT tamsulosin Yes [id number] .4mg Take 1 [facility] 0.4 mg 24 8-30 capsule by [place]y of hr capsule 00:00: mouth 2 [place] (two) Medical times Branch daily. ergocalcife Yes [id number] Take 1 [facility] rol, 8-30 capsule by ity of vitamin d2, 00:00: mouth [place] 1,250 mcg 00 weekly. Medical (50,000 Branch unit) capsule pantoprazol Yes [id number] 40mg Take 1 [facility] e 40 mg EC 8-30 tablet by ity of tablet 00:00: mouth 2 (two) Medical times Branch daily. Sennosides Yes [id number] 17.2mg Take 17.2 [facility] 17.2 mg Tab 8-30 mg by ity of 00:00: mouth 2 (two) Medical times Branch daily. albuterol Yes [id number] INHALE 2 [facility] 90 8-30 PUFFS INTO ity of mcg/actuati 00:00: THE LUNGS [place] on inhaler 00 THREE Medical TIMES Branch DAILY NEEDED FOR SHORTNESS OF BREATH apixaban Yes [id number] 5mg Take 1 [facility] (ELIQUIS) 5 8-30 tablet by ity of mg tablet 00:00: mouth 2 (two) Medical times Branch daily. Indication s: atrial fibrillati on, a fib and DVT tamsulosin Yes [id number] .4mg Take 1 [facility] 0.4 mg 24 8-30 capsule by ity of hr capsule 00:00: mouth 2 [place] [facility] ([facility] Medical times Branch daily. ergocalcife Yes [id number] Take 1 [facility] rol, 8-30 capsule by ity of vitamin d2, 00:00: mouth [place] 1,250 mcg 00 weekly. Medical (50,000 Branch unit) capsule pantoprazol Yes [id number] 40mg Take 1 [facility] e 40 mg EC 8-30 tablet by ity of tablet 00:00: mouth (two) Medical times Branch daily. Sennosides Yes [id number] 17.2mg Take 17.2 [facility] 17.2 mg Tab 8-30 mg by ity of 00:00: mouth [place] (two) Medical times Branch daily. albuterol Yes [id number] INHALE 2 [facility] 90 8-30 PUFFS INTO ity of mcg/actuati 00:00: THE LUNGS [place] on inhaler 00 THREE Medical TIMES Branch DAILY NEEDED FOR SHORTNESS OF BREATH apixaban 2020- Yes [id number] 5mg Take 1 [facility] (ELIQUIS) 5 8-30 tablet by ity of mg tablet 00:00: mouth 2 [place] (two) Medical times Branch daily. Indication s: atrial fibrillati on, a fib and DVT tamsulosin 2020- Yes [id number] .4mg Take 1 [facility] 0.4 mg 24 8-30 capsule by ity of hr capsule 00:00: mouth 2 [place] (two) Medical times Branch daily. carvediloL 2022- No [id number] 25mg Take 1 [facility] 25 mg 8-30 [...] 6-23 ity of sublingual 00:00: [place] tablet Medical Branch nitroglycer 0 Yes Univer s in 0.4 mg 6-23 ity of sublingual 00:00: [place] tablet Medical Branch nitroglycer 0 Yes Univer s in 0.4 mg 6-23 ity of sublingual 00:00: [place] tablet Medical Branch nitroglycer Yes Univer s in 0.4 mg 6-23 ity of sublingual 00:00: [place] tablet Medical Branch Gauze 0 Yes [id number] Use as Unive rs Bandage 5-26 directed ity of (KERLIX) 4 00:00: [place] X 4 " Spge Medical Branch Gauze 0 Yes [id number] Use as Unive rs Bandage 5-26 directed ity of (KERLIX) 4 00:00: [place] X 4 " Spge Medical Branch Gauze 0 Yes [id number] Use as Unive rs Bandage 5-26 directed ity of (KERLIX) 4 00:00: [place] X 4 " Spge Medical Branch Gauze 0 Yes [id number] Use as Unive rs Bandage 5-26 directed ity of (KERLIX) 4 00:00: [place] X 4 " Spge Medical Branch Gauze 0 Yes [id number] Use as Unive rs Bandage 5-26 directed ity of (KERLIX) 4 00:00: [place] X 4 " Spge Medical Branch Gauze 0 Yes [id number] Use as Unive rs Bandage 5-26 directed ity of (KERLIX) 4 00:00: [place] X 4 " Spge 00 Medical Branch Gauze 0 Yes [id number] Use as Unive rs Bandage 5-26 directed ity of (KERLIX) 4 00:00: [place] X 4 " Spge 00 Medical Branch Bismuth 0 2021- No [id number] Use as [facility] [place] Tribrom-Pet -02 12-16 directed ity of rolatum,Wh 00:00: 00:00 [place] (XEROFORM 00 :00 Medical PETROLATUM Branch DRESSING) 4 X 4 " Bndg Bismuth 0 2021- No [id number] Use as [place] Tribrom-Pet 11-01-16 directed ity of rolatum,Wh 00:00: 00:00 [place] (XEROFORM 00 :00 Medical PETROLATUM Branch DRESSING) 4 X 4 " Bndg Insulin 2020-0 Yes USE [facility] [place], 3-15 DIRECTED ity of Disposable, 00:00: THREE [place] (PEN 00 TIMES Medical NEEDLE) 31 DAILY TO Branc h gauge x INJECT 3/16" Ndle INSULIN Insulin 0 Yes USE Univers [place], 3-15 DIRECTED ity of Disposable, 00:00: THREE [place] (PEN 00 TIMES Medical NEEDLE) 31 DAILY TO Branc h gauge x INJECT 3/16" Ndle INSULIN Insulin 2020-0 Yes USE Univers [place], 3-15 DIRECTED ity of Disposable, 00:00: THREE [place] (PEN 00 TIMES Medical NEEDLE) 31 DAILY TO Branc h gauge x INJECT 3/16" Ndle INSULIN Insulin 2020-0 Yes USE Univers [place], 3-15 DIRECTED ity of Disposable, 00:00: THREE [place] (PEN 00 TIMES Medical NEEDLE) 31 DAILY TO Branc h gauge x INJECT 3/16" Ndle INSULIN Insulin 2020-0 Yes USE Univers [place], 3-15 DIRECTED ity of Disposable, 00:00: THREE [place] (PEN 00 TIMES Medical NEEDLE) 31 DAILY TO Branc h gauge x INJECT 3/16" Ndle INSULIN Insulin 2020-0 Yes USE Univers [place], 3-15 DIRECTED ity of Disposable, 00:00: THREE [place] (PEN 00 TIMES Medical NEEDLE) 31 DAILY TO Branc h gauge x INJECT 3/16" Ndle INSULIN Insulin 2020-0 Yes USE Univers [place], 3-15 DIRECTED ity of Disposable, 00:00: THREE [place] (PEN 00 TIMES Medical NEEDLE) 31 DAILY TO Branc h gauge x INJECT 3/16" Ndle INSULIN traMADoL 50 2020-0 Yes 1 tablet [facility] [place] mg tablet 3-09 as needed ity o f 00:00: [place] Medical Branch HYDROcodone 2020-0 Yes 1 tablet [facility] [place] -acetaminop 3-09 as needed ity of hen 10-325 00:00: [place] mg tablet 00 Medical Branch traMADoL 50 2020-0 Yes 1 tablet [facility] [place] mg tablet 3-09 as needed ity o f 00:00: [place] 00 Medical Branch HYDROcodone 202-0 Yes 1 tablet [place] -acetaminop 3-09 as needed ity of hen 10-325 00:00: [place] mg tablet 00 Medical Branch traMADoL 50 2020-0 Yes 1 tablet [place] mg tablet 3-09 as needed ity o f 00:00: [place] 00 Medical Branch HYDROcodone 202-0 Yes 1 tablet [place] -acetaminop 3-09 as needed ity of hen 10-325 00:00: [place] mg tablet 00 Medical Branch traMADoL 50 2020-0 Yes 1 tablet [place] mg tablet 3-09 as needed ity o f 00:00: [place] [facility] HYDROcodone 202-0 Yes 1 tablet [place] -acetaminop 3-09 [...] o f 00:00: [place] [facility] HYDROcodone 2021-0 Yes 1 tablet [place] -acetaminop 3-09 as needed ity of hen 10-325 00:00: [place] mg tablet 00 Medical Branch traMADoL 50 2020-0 Yes 1 tablet [place] mg tablet 3-09 as needed ity o f 00:00: [place] 00 Medical Branch HYDROcodone 202-0 Yes 1 tablet [place] -acetaminop 3-09 as needed ity of hen 10-325 00:00: [place] mg tablet 00 Medical Branch cadexomer 0 Yes Chronic Apply Univ ers iodine 7-20 pain of topically ity o f (IODOSORB) 00:00: right foot to [place] 0.9% gel 00 affected MD area(s) [place] every n other day. [facility] cadexomer 2019-0 Yes Chronic Apply Univ ers iodine 7-20 pain of topically ity o f (IODOSORB) 00:00: right foot to [place] 0.9% gel 00 affected MD area(s) [place] every n other day. [facility] [place] [facility] Yes Chronic Apply Univ ers iodine 7-20 pain of topically ity o f (IODOSORB) 00:00: right foot to [place] 0.9% gel 00 affected MD area(s) [place] every n other day. [facility] [place] [facility] Yes Chronic Apply Univ ers iodine 7-20 pain of topically ity o f (IODOSORB) 00:00: right foot to [place] 0.9% gel 00 affected MD area(s) [place] every n other day. [facility] benztropine Yes .5mg Take 0.5 [facility] [place] (COGENTIN) 7-19 mg by ity of 0.5 mg 10:59: mouth [place] tablet 33 twice MD daily. [facility] HYDROcodone Yes 1{tbl} Take 1 [place] -acetaminop 7-19 tablet by ity of hen (NORCO) 10:59: mouth 3 [place] as 10 mg-325 33 (three) MD mg per times a [place] tablet day. [facility] apixaban Yes deep venous 5mg Take 5 mg Univers (ELIQUIS) 5 7-19 thrombosis by mouth ity of mg tablet 10:59: twice [place] 33 daily. [place] [facility] benztropine Yes .5mg Take 0.5 [facility] [place] (COGENTIN) 7-19 mg by ity of 0.5 mg 10:59: mouth [place] tablet 33 twice MD daily. [facility] HYDROcodone Yes 1{tbl} Take 1 [place] -acetaminop 7-19 tablet by ity of hen (NORCO) 10:59: mouth 3 [place] as 10 mg-325 33 (three) MD mg per times a [place] tablet day. [facility] apixaban Yes deep venous 5mg Take 5 mg Univers (ELIQUIS) 5 7-19 thrombosis by mouth ity of mg tablet 10:59: twice [place] 33 daily. MD [place] [facility] benztropine Yes .5mg Take 0.5 [place] (COGENTIN) 7-19 mg by ity of 0.5 mg 10:59: mouth [place] tablet 33 twice MD daily. [facility] HYDROcodone Yes 1{tbl} Take 1 [place] -acetaminop 7-19 tablet by ity of hen (NORCO) 10:59: mouth 3 [place] 10 mg-325 33 (three) MD mg per times a [place] tablet day. [facility] apixaban Yes deep venous 5mg Take 5 mg Univers (ELIQUIS) 5 7-19 thrombosis by mouth ity of mg tablet 10:59: twice [place] 33 daily. MD [place] [facility] benztropine Yes .5mg Take 0.5 [facility] [place] (COGENTIN) 7-19 mg by ity of 0.5 mg 10:59: mouth [place] tablet 33 twice MD daily. [facility] HYDROcodone Yes 1{tbl} Take 1 [place] -acetaminop 7-19 tablet by ity of hen (NORCO) 10:59: mouth 3 [place] as 10 mg-325 33 (three) MD mg per times a [place] tablet day. [facility] apixaban Yes deep venous 5mg Take 5 mg Univers (ELIQUIS) 5 7-19 thrombosis by mouth ity of mg tablet 10:59: twice [place] 33 daily. MD [place] [facility] collagenase Yes Chronic Apply [facility] [place] (SANTYL) 7-19 pain of topically ity of ointment 00:00: right foot to [place] 00 affected MD area(s) Anderso daily. [facility] losartan Yes Chronic 25mg Take 1 Univ ers (COZAAR) 25 7-19 pain of tablet (25 ity of mg tablet 00:00: right foot mg) by [place] 00 mouth MD daily. [facility] metoprolol Yes Chronic 25mg Take 1 [facility] [place] tartrate 7-19 pain of tablet (25 it y of (LOPRESSOR) 00:00: right foot mg) by [place] 25 mg 00 mouth MD tablet twice [place] daily. [facility] risperiDONE Yes Chronic 4mg Take 1 U nivers (RisperDAL) 7-19 pain of tablet (4 ity of 4 mg tablet 00:00: right foot mg) by [place] 00 mouth at MD bedtime. [facility] collagenase Yes Chronic Apply [place] (SANTYL) 7-19 pain of topically ity of ointment 00:00: right foot to [place] 00 affected MD area(s) Anders daily. [facility] [place] polyethylen Yes Chronic 17g Take 17 g Univers e glycol 7-19 pain of by mouth ity of (MIRALAX) 00:00: right foot daily. Can [place] 17 g packet 00 get over MD the Anderso counter Cancer [place] senna-docus Yes Chronic 2{tbl} Take 2 Univers ate 7-19 pain of tablets by ity of (SENOKOT-S) 00:00: right foot mouth [place] 8.6 mg-50 00 twice MD mg tablet daily. Can [place] rso get over n the Cancer counter [place] divalproex Yes Chronic 750mg Take 3 U nivers (DEPAKOTE) 7-19 pain of tablets ity of 250 mg 24 00:00: right foot (750 mg) [place] hr tablet 00 by mouth [facility]. [facility] [place] NOVOLIN Yes Type 2 Inject 35 Uni vers 70/30 U-100 7-19 diabetes units ity of INSULIN 100 00:00: mellitus before [place] unit/mL 00 with foot breakfast MD (70-30) ulcer and 20 [place] injection units n before Cancer dinner. Center HOLD if sugar is less than 100 polyethylen Yes Chronic 17g Take 17 g Univers e glycol 7-19 pain of by mouth ity of (MIRALAX) 00:00: right foot daily. Can [place] 17 g packet 00 get over MD the Anders[facility] counter Cancer [place] senna-docus Yes Chronic 2{tbl} Take 2 Univers ate 7-19 pain of tablets by ity of (SENOKOT-S) 00:00: right foot mouth [place] 8.6 mg-50 00 twice MD mg tablet daily. Can Elio rso get over n the Cancer counter [place] divalproex Yes Chronic 750mg Take 3 U nivers (DEPAKOTE) 7-19 pain of tablets ity of 250 mg 24 00:00: right foot (750 mg) [place] hr tablet 00 by mouth MD at Anderso bedtime. [facility] NOVOLIN Yes Type 2 Inject 35 [...] mg) by [place] 00 mouth MD daily. [facility] metoprolol Yes Chronic 25mg Take 1 Un urbano tartrate 7-19 pain of tablet (25 it y of (LOPRESSOR) 00:00: right foot mg) by [place] 25 mg 00 mouth MD tablet twice Anderso daily. [facility] risperiDONE Yes Chronic 4mg Take 1 U nivers (RisperDAL) 7-19 pain of tablet (4 ity of 4 mg tablet 00:00: right foot mg) by [place] 00 mouth at MD bedtime. [facility] collagenase Yes Chronic Apply Un urbano (SANTYL) 7-19 pain of topically ity of ointment 00:00: right foot to G[place] as 00 affected MD area(s) Anderso daily. [facility] polyethylen Yes Chronic 17g Take 17 g Univers e glycol 7-19 pain of by mouth ity of (MIRALAX) 00:00: right foot daily. Can [place] 17 g packet 00 get over MD the Anderso counter [facility] senna-docus Yes Chronic 2{tbl} Take 2 Univers ate 7-19 pain of tablets by ity of (SENOKOT-S) 00:00: right foot mouth [place] 8.6 mg-50 00 twice MD mg tablet daily. Can Elio rso get over the Cancer counter [place] divalproex Yes Chronic 750mg Take 3 U nivers (DEPAKOTE) 7-19 pain of tablets ity of 250 mg 24 00:00: right foot (750 mg) [place] hr tablet 00 by mouth MD at Anderso bedtime. [facility] Yes Type 2 Inject 35 Uni vers [...] [place] 00 mouth MD daily. [facility] [place] metoprolol Yes Chronic 25mg Take 1 Un urbano tartrate 7-19 pain of tablet (25 it y of (LOPRESSOR) 00:00: right foot mg) by [place] 25 mg 00 mouth MD tablet twice Anderso daily. n Cancer [place] risperiDONE Yes Chronic 4mg Take 1 U nivers (RisperDAL) 7-19 pain of tablet (4 ity of 4 mg tablet 00:00: right foot mg) by [place] 00 mouth at MD bedtime. [facility] collagenase Yes Chronic Apply Un urbano (SANTYL) 7-19 pain of topically ity of ointment 00:00: right foot to [place] as 00 affected MD area(s) Anderso daily. Cancer [place] polyethylen Yes Chronic 17g Take 17 g Univers e glycol 7-19 pain of by mouth ity of (MIRALAX) 00:00: right foot daily. Can [place] 17 g packet 00 get over MD the Anderso counter Cancer [place] senna-docus Yes Chronic 2{tbl} Take 2 Univers ate 7-19 pain of tablets by ity of (SENOKOT-S) 00:00: right foot mouth [place] 8.6 mg-50 00 twice MD mg tablet daily. Can Elio rso get over the Cancer counter [place] divalproex Yes Chronic 750mg Take 3 U nivers (DEPAKOTE) 7-19 pain of tablets ity of 250 mg 24 00:00: right foot (750 mg) [place] hr tablet 00 by mouth MD at Anderso bedtime. n Cancer [place] NOVOLIN Yes Type 2 Inject 35 Uni [...] mg tablet 00:00: right foot mg) by [place] 00 mouth MD daily. Anders n [facility] metoprolol Yes Chronic 25mg Take 1 Un urbano tartrate 7-19 pain of tablet (25 it y of (LOPRESSOR) 00:00: right foot mg) by [place] 25 mg 00 mouth MD tablet twice Anderso daily. n [facility] risperiDONE Yes Chronic 4mg Take 1 U nivers (RisperDAL) 7-19 pain of tablet (4 ity of 4 mg tablet 00:00: right foot mg) by [place] 00 mouth at MD [facility]. [facility] methocarbam Yes Chronic 500mg Take 1 Univers ol 7-18 pain tablet ity of (ROBAXIN) 00:00: (500 mg[place] 500 mg 00 by mouth MD tablet every 8 Anderso (eight) n hours. [facility] methocarbam Yes Chronic 500mg Take 1 Univers ol 7-18 pain tablet ity of (ROBAXIN) 00:00: (500 mg[place] 500 mg 00 by mouth MD tablet every 8 Anderso (eight) n hours. [facility] methocarbam Yes Chronic 500mg Take 1 Univers ol 7-18 pain tablet ity of (ROBAXIN) 00:00: (500 mg[place] 500 mg 00 by mouth MD tablet every 8 Anderso (eight) n hours. [facility] methocarbam Yes Chronic 500mg Take 1 Univers ol 7-18 pain tablet ity of (ROBAXIN) 00:00: (500 mg[place] 500 mg 00 by mouth MD tablet every 8 Anderso (eight) n hours. [facility] Uri Grewal Yes Sylvain Inject 1.8 C ommon Dietrich mg/day [facility] Albuterol Albuterol Yes Sylvain 1 puff as Common Sulfate HFA Sulfate HFA Dietrich needed [facility] Duloxetine Duloxetine Yes Sylvain 1 capsule Common HCl HCl Dietrich [facility] Clonazepam Clonazepam Yes Sylvain 1 tablet Common Dietrich at bedtime [facility] NovoLIN NovoLIN Yes Sylvain Inject 65 Co mmon 70/30 70/30 Dietrich units Spirit FlexPen FlexPen [facility] Tramadol Tramadol Yes Sylvain 1 tablet C ommon HCl HCl Dietrich as needed [facility] Hydrocodone Hydrocodone Yes Sylvain 1 tablet Common -Acetaminop -Acetaminop Dietrich as needed [facility] hen hen [facility] Eliquis Eliquis Yes Sylvain TAKE 1 Commo n Dietrich TABLET BY [facility] MOUTH [facility] TWICE [facility] Benztropine Benztropine Yes Sylvain 1 tablet Common Mesylate Mesylate Dietrich at bedtime [facility] Amphetamine Amphetamine Yes Sylvain 1 tablet Common -Dextroamph -Dextroamph Dietrich [facility] etamine etamine [facility] Risperidone Risperidone Yes Sylvain 1 tablet Common Dietrich [facility] Metoprolol Metoprolol Yes Sylvain 1 tablet Common Tartrate Tartrate Dietrich with food S pirit [facility] Losartan Losartan Yes Sylvain 1 tablet C ommon Potassium Potassium Dietrich [facility] Divalproex Divalproex Yes Sylvain 1 tablet Common Sodium ER Sodium ER Dietrich [facility] BusPIRone BusPIRone Yes Sylvain 1 tablet Common HCl HCl Dietrich [facility] Pen [place] Pen [place] Yes Sylvain N/s Common Dietrich [facility] Atorvastati Atorvastati Yes Sylvain 1 tablet Common n Calcium n Calcium Dietrich [facility] Advair Advair Yes Sylvain 1 puff Common Diskus Diskus Dietrich [facility] True Metrix True Metrix Yes Sylvain USE TO Common Blood Blood Dietrich TEST BLOOD Spirit Glucose Glucose SUGAR 1-2 - CH I Test Test TIMES St EVERY DAY [facility] NovoLIN NovoLIN Yes Sylvain INJECT Commo n 70/30 70/30 Dietrich SUBQUTANEO Spirit FlexPen FlexPen USLY 65 - CHI UNITS TWICE [facility] UltiCare UltiCare Yes Sylvain USE ONE Co mmon Micro Pen Micro Pen Dietrich NEEDLE Sp kwame [place] THREE - CHI TIMES St DAILY WITH [facility] NOVOLIN FLEXPEN Immunizations Ordered Filled Immunization Date Status Comments [facility] e Immunization Name Name SARS-COV-2 COVID-19 2021-04-20 Completed Unive rsity of MODERNA VACCINE 00:00:00 [facility] ical Branch SARS-COV-2 COVID-19 2021-04-20 Completed Unive rsity of MODERNA VACCINE 00:00:00 [facility] ical Branch SARS-COV-2 COVID-19 2021-04-20 Completed Unive rsity of MODERNA VACCINE 00:00:00 [facility] SARS-COV-2 COVID-19 2021-04-20 Completed Unive rsity of MODERNA VACCINE 00:00:00 [facility] SARS-COV-2 COVID-19 2021-04-20 Completed Unive rsity of MODERNA VACCINE 00:00:00 [facility] SARS-COV-2 COVID-19 2021-04-20 Completed Unive rsity of MODERNA VACCINE 00:00:00 [facility] SARS-COV-2 COVID-19 2021-04-20 Completed Unive rsity of MODERNA VACCINE 00:00:00 [facility] SARS-COV-2 COVID-19 2020-09-18 Completed Unive rsity of MODERNA VACCINE 00:00:00 [facility] SARS-COV-2 COVID-19 2020-09-18 Completed Unive rsity of MODERNA VACCINE 00:00:00 [facility] SARS-COV-2 COVID-19 2020-09-18 Completed Unive rsity of MODERNA VACCINE 00:00:00 [facility] SARS-COV-2 COVID-19 2020-09-18 Completed Unive rsity of MODERNA VACCINE 00:00:00 [facility] SARS-COV-2 COVID-19 2020-09-18 Completed Unive rsity of MODERNA VACCINE 00:00:00 [facility] SARS-COV-2 COVID-19 2020-09-18 Completed Unive rsity of MODERNA VACCINE 00:00:00 [facility] SARS-COV-2 COVID-19 2020-09-18 Completed Unive rsity of MODERNA VACCINE 00:00:00 [facility] SARS-COV-2 COVID-19 2020-08-21 Completed Unive rsity of MODERNA VACCINE 00:00:00 [facility] SARS-COV-2 COVID-19 2020-08-21 Completed Unive rsity of MODERNA VACCINE 00:00:00 [facility] SARS-COV-2 COVID-19 2020-08-21 Completed Unive rsity of MODERNA VACCINE 00:00:00 [facility] SARS-COV-2 COVID-19 2020-08-21 Completed Unive rsity of MODERNA VACCINE 00:00:00 [facility] SARS-COV-2 COVID-19 2020-08-21 Completed Unive rsity of MODERNA VACCINE 00:00:00 [facility] SARS-COV-2 COVID-19 2020-08-21 Completed Unive rsity of MODERNA VACCINE 00:00:00 [facility] SARS-COV-2 COVID-19 2020-08-21 Completed Unive rsity of MODERNA VACCINE 00:00:00 [facility] Pneumococcal 13 2019-07-12 Completed Universit y of Conjugate, PCV13 00:00:00 [facility] dical (Prevnar 13) Branch Pneumococcal 13 2019-07-12 Completed Universit y of Conjugate, PCV13 00:00:00 [facility] dical (Prevnar 13) Branch Pneumococcal 13 2019-07-12 Completed Universit y of Conjugate, PCV13 00:00:00 [facility] dical (Prevnar 13) Branch Pneumococcal 13 2019-07-12 Completed Universit y of Conjugate, PCV13 00:00:00 [facility] dical (Prevnar 13) Branch Pneumococcal 13 2019-07-12 Completed Universit y of Conjugate, PCV13 00:00:00 [facility] dical (Prevnar 13) Branch Pneumococcal 13 2019-07-12 Completed Universit y of Conjugate, PCV13 00:00:00 [facility] dical (Prevnar 13) Branch Pneumococcal 13 2019-07-12 Completed Universit y of Conjugate, PCV13 00:00:00 [facility] dical (Prevnar 13) Branch Pneumococcal [...] Completed Universit y of Conjugate, PCV13 00:00:00 [place] dical (Prevnar 13) Branch Pneumococcal 13 2019-05-25 Completed Universit y of Conjugate, PCV13 00:00:00 [facility] dical (Prevnar 13) Branch Vital Signs Vital Name Observation Time Observation Value Comments Source Diastolic blood 2021-12-24 22:01:00 79 mm[Hg] Unive rsity of [facility] Heart rate 2021-12-24 22:01:00 89 /min [facility] Body temperature 2021-12-24 22:01:00 36.89 Cece [facility] Respiratory rate 2021-12-24 22:01:00 18 /min [facility] Body height 2021-12-24 22:01:00 182.9 cm [facility] Body weight 2021-12-24 22:01:00 105.235 kg [facility] BMI 2021-12-24 22:01:00 31.46 kg/m2 [facility] Oxygen saturation in 2021-12-24 22:01:00 98 /min [facility] Arterial blood by [facility] Pulse oximetry Branch Systolic blood 2021-12-24 22:01:00 172 mm[Hg] Univer sity of pressure [facility] Systolic blood 2021-11-19 19:09:00 174 mm[Hg] Univer sity of pressure [facility] Diastolic blood 2021-11-19 19:09:00 91 mm[Hg] Unive rsity of [facility] Heart rate 2021-11-19 19:00:00 80 /min [facility] Body weight 2021-11-19 19:00:00 104.962 kg [facility] BMI 2021-11-19 19:00:00 32.27 kg/m2 [facility] Oxygen saturation in 2021-11-19 19:00:00 97 /min [facility] Arterial blood by [facility] Pulse oximetry Branch Procedures Procedure Date / Time Performed Performing Clinician Sour e COMP. METABOLIC PANEL 2021-12-24 22:19:00 Kelvin Draby [facility] ([id number]) Medical Maud CBC WITH DIFF 2021-12-24 22:19:00 Kelvin Darby [place] o [facility] EXTERNAL PROVIDER 2021-12-06 05:01:00 [facility]igned, [facility] Name [facility] HOME HEALTH - OTHER 2021-11-23 05:01:00 [facility] Planned Activity Planned Date Details Comments Source Future Scheduled 2021-12-25 COVID-19 Vaccination Uni versity of [place] Test 10:49:05 (#1) [code = RYANID-19 MD [facility] Vaccination (#1)] Center Future Scheduled 2021-12-25 COVID-19 Vaccination [facility] [place] Test 10:49:05 (#1) [code = RYANID-19 MD [facility] Vaccination (#1)] Center Future Scheduled 2021-12-25 COVID-19 Vaccination Uni vers[facility] of [place] Test 10:49:05 (#1) [code = COVID-19 MD And erson Cancer Vaccination (#1)] Center Future Scheduled 2021-11-30 COVID-19 Vaccination Uni versity of [place] Test 06:12:57 (#1) [code = COVID-19 MD And erson Cancer Vaccination (#1)] [place] Future Scheduled 2021-03-09 IMM Influenza [facility] 00:00:00 Seasonal Mar to August (>/= 19 yrs) [code = IMM Influenza Seasonal Mar to August (>/= 19 yrs)] Future Scheduled 2011 Screening for [facility] 00:00:00 malignant neoplasm of colon (procedure) [code = 735876798] Future Scheduled 1973 COVID-19 Vaccine (1) [facility] Test 00:00:00 [code = COVID-19 Vaccine (1)] Encounters Start End Encounter Admission Attending Care Care Encounter Source Date/Time Date/Time Type Type Clinicians Facility Department ID 2021-10-22 Outpatient Dietrich, STLMLC STLC [id number] Common 14:35:01 Sylvain [id number] [facility] 2021-07-05 Out[place] 3 [place] [id number] ENCPL 10:37:17 Violetta 0918 2021-07-05 Outpatient 3 Desean ENCPL OTH [id number] ENCPL 10:35:19 Violetta 0914 2021-07-05 Outpatient 3 [id number] ENCPL REF ENCPL 10:33:41 0909 2021-07-04 Outpatient Dietrich, STLMLC STLC [id number] Common 12:23:16 Sylvain [id number] [facility] 2021-07-04 Outpatient Dietrich, STLMLC STLC [id number] Common 11:58:41 Sylvain [id number] [facility] 2021-07-04 Outpatient Dietrich, STLMLC STLC [id number] Common 11:58:34 Sylvain [id number] [facility] 2021-07-04 Outpatient Dietrich, STLMLC STLC [id number] Common 11:54:24 Sylvain [id number] [facility] 2021-07-04 Outpatient Dietrich, STLMLC STLC [id number] Common 11:24:48 Sylvain [id number] [facility] 2021-07-04 Outpatient Dietrich, STLMLC STLC [id number] Common 11:24:36 Sylvain [id number] [facility] 2021-03-20 Outpatient [id number] Memoria 10:39:01 [id number]-9577- B l -M36M-54A D-[id number] [id number]-[id number] Raul [id number] AF2 A1DAF2 2021-03-13 Outpatient [id number] Memoria 08:49:42 [id number] 166-4D51- 8 l -8885-75E 5-82S0H2H2X 885-75E2A2 Raul [id number] E94 F6FE94 2021-02-27 Outpatient [id number] Memoria 16:26:17 [id number] 34-41DF-A62 Q04-05RI- A l -R41E-0ST B-5YW08FJQM 62B-5CF45F [place] [id number] E49 CCBE49 2021-02-13 Outpatient [id number] Memoria 13:34:27 FDA5-4DF8 A5-9AU4-VB2 DA5-4DF8- A l -TR7C-34D F-57U32I8E5 U1J-86X96Y [place] 98M0J6S6G C9E 9A6C9E 2021-02-05 Outpatient [id number] Memoria 13:02:31 [id number] E0-7FK6-6QM 2K6-1EP3- 8 l -0JA6-7Q3 7-4M3Y2UM9Z BD7-8F3D5B [place] G5FI6Z3X4 9A8 B3F9A8 2021-01-31 Outpatient [id number] Memoria 14:21:44 71EF-[id number] EF-8U55-K7Q 1EF-4A97- A l -S6B2-Z54 [id number]-[id number] [id number]-[id number] Raul [id number] ABB 67DABB 2021-01-29 Outpatient [id number] Memoria 07:59:59 EAF3-4402 F3-4402-989 AF3-4402- 9 l -9894-E93 4-[id number] 894-E932E0 Raul [id number] 73E [id number] 2021-01-26 Outpatient [id number] Memoria 11:30:20 10H1-9Y4Y D3-7L7S-J76 0B4-9G4M- A l -B250-8G3 0-2O9B87P36 760-9F0F01 Raul [id number] A92 [id number] 2021-01-18 Outpatient [id number] Memoria 19:23:47 [id number] 345-1159- 9 l -904F-E96 [id number] 04F-[id number] Raul [id number] FF0 071FF0 2021-01-17 Outpatient [id number] Memoria 15:43:09 [id number] [id number] 8I2-4899- 8 l -8608-A37 8-[id number] 608-A37F06 Raul [id number] 43A F6C43A 2021-01-11 Outpatient [id number] Memoria 16:20:54 [id number] [id number] P76-9948- 8 l -4A1A-HE7 [id number] J8S-RS1H84 Raul [id number] A7A [id number] 2020-07-15 [facility] MAS [id number] H[facility] 14:49:00 an, 91135 [facility] 2020-07-13 Inpatient HCACL MARIA D [id number] [facility] 14:41:00 [id number] [facility] 2022-01-23 2022-01-23 Outpatient R LUIS LAM [facility] [id number] Univers 14:00:00 14:00:00 LUIS LAM [facility] 2022-01-08 2022-01-08 Outpatient R [facility] [id number] Univers 13:40:00 13:40:00 MARYLU ity [facility] 2021-12-24 2021-12-24 Emergency X [facility] ERT [id number] Univers 16:57:00 20:57:00 KELVIN ity [facility] 2021-12-24 2021-12-24 Emergency [facility] [id number] Univers 16:57:00 20:57:00 Kelvin Chi MARIO [id number] i ty of [place] [phone] [facility] 084 Maud 2021-12-24 2021-12-24 [facility] [id number] Univers 00:00:00 00:00:00 Marylu MARTIN [id number] ity of [place]2.[place] PROF[place] [phone] Ri dic[address] 2021-12-18 2021-12-18 Refill [facility] [id number] [id number] Univers 00:00:00 00:00:00 Marylu MARTIN [id number] ity of [place] [phone] Ri dic[address] 2021-12-06 2021-12-06 Orders Doctor NAINA [id number] [id number] Univers 00:00:00 00:00:00 Only Unassigned, MARIELOS [id number] [facility] 4.2.7.2.686 [place] as [phone] [facility] 009 Maud 2021-11-26 2021-11-26 Outpatient R [facility] [id number] Univers 13:30:00 13:30:00 ity of [facility] 2021-11-23 2021-11-23 Orders Doctor NAINA [id number] [id number] Univers 00:00:00 00:00:00 Only Unassigned, MARIELOS [id number] [facility]y [facility] 4.2.7.2.686 [place] as [phone] [address] 2021-11-19 2021-11-22 Inpatient X IRAM [facility] [id number] Univers 18:34:00 15:35:00 JENNIFER [facility] 2021-11-19 2021-11-19 [facility] 1.2.840.114 [id number] Univers 14:00:00 15:01:22 Visit [facility] [id number] it y of [place] 4.2.7.2.686 Gwyn as RIANA?BLEA [phone] [address] MEDICAL OFFICE BUILDING 2021-11-19 2021-11-19 [id number] Univers 14:00:00 [facility]:01:[facility] 2021-09-21 2021-09-21 Outpatient R JOHN REYES [facility] [id number] Univers 14:30:00 15:28:52 JOHN REYES [facility] 2021-09-14 2021-09-14 [facility] [id number] Univers 14:00:00 14:00:00 LUCIA [facility] 2021-06-14 2021-06-14 Outpatient R YOAV [facility] [id number] Univers 09:30:00 09:30:00 SRINIVAS [facility] 2021-05-23 2021-05-23 Outpatient R CRISTIAN [facility] [id number] Univers 12:30:00 13:40:00 YOGESH [facility] 2021-05-14 2021-05-14 Outpatient R BIANKA [facility] [id number] Univers 14:30:00 14:30:00 MARTITA [facility] 2021-04-24 2021-04-24 [facility] [id number] [facility] 16:00:00 16:00:00 LUCIA [facility] 2021-03-13 2021-03-13 Outpatient R GREGG [facility] [id number] Univers 09:15:00 10:16:13 UMA [facility] 2021-02-20 2021-02-20 [facility] [id number] [facility] 15:30:00 16:29:01 LUCIA [facility] 2021-02-05 2021-02-05 Outpatient [facility] [id number] [facility] 13:00:00 15:10:18 MARYLU [facility] 2021-01-17 2021-01-17 Telephone [facility] 1.2.840.114 [id number] 00:00:00 00:00:00 Marylu Martin [id number] [place] [id number] Professio [phone] [address] 2021-01-10 2021-01-10 Refill [facility] 1.2.840.114 [id number] 00:00:00 00:00:00 Marylu Martin [id number] [place] 4.2.7.2.686 Professio [phone] [address] 2021-01-09 2021-01-09 Outpatient [facility] [id number] Univers 13:30:00 13:30:00 BRIANA [facility] 2020-12-28 2020-12-28 Office [facility] 1.2.840.114 [id number] 13:00:56 15:02:32 Visit Marylu Martin [id number] [place] 4.2.7.2.686 Professio [phone] 2020-04-04 2020-04-04 Outpatient STLMLC STLMLC [id number] Common 00:00:00 00:00:00 [facility] 2020-04-03 2020-04-03 Outpatient STLMLC STLMLC [id number] Common 00:00:00 00:00:00 [facility] 2020-04-03 2020-04-03 Outpatient STLMLC STLMLC [id number] Common 00:00:00 00:00:00 [facility] 2020-03-21 2020-03-21 Outpatient STLMLC STLMLC [id number] Common 00:00:00 00:00:00 [facility] 2020-03-08 2020-03-08 Outpatient STLMLC STLMLC [id number] Common 00:00:00 00:00:00 [facility] 2020-03-03 2020-03-03 Outpatient STLMLC STLMLC [id number] Common 00:00:00 00:00:00 [facility] 2020-03-01 2020-03-01 Outpatient STLMLC STLMLC [id number] Common 00:00:00 00:00:00 [facility] 2020-02-22 2020-02-22 Outpatient STLMLC STLMLC [id number] Common 00:00:00 00:00:00 [facility] 2020-01-28 2020-01-28 Out[facility] [id number] Common 08:27:00 08:27:[address] [facility] 2020-01-26 2020-01-26 Outpatient [facility] [id number] Common 11:04:00 11:04:[address] [facility] 2020-01-05 2020-01-05 Outpatient [facility] [id number] Common 16:30:00 16:30:[address] [facility] 2020-01-03 2020-01-03 Outpatient [facility] [id number] Common 10:59:00 10:59:[address] [facility] 2019-11-24 2019-11-24 Outpatient [facility] [id number] Common 11:16:00 11:16:00 t [facility] [address] [facility] 2019-11-24 2019-11-24 Outpatient [facility] [id number] Common 11:15:00 11:15:[address] [facility] 2019-11-11 2019-11-11 Out[facility] [id number] Common 09:41:00 09:41:[address] [facility] 2019-11-10 2019-11-10 Outpatient [facility] [id number] Common 10:30:00 10:30:[address] [employer] [address] [facility] 2019-03-27 2019-03-27 Emergency [facility] [id number] Rios 11:00:00 11:00:00 [facility] 2019-03-27 2019-03-27 Emergency [facility] [id number] 3 [place] 10:55:25 10:55:25 [facility] 2019-03-27 2019-03-27 Emergency [facility] [id number] 6 [place] 08:02:06 08:02:06 [facility] 2019-03-27 2019-03-27 Emergency [facility] [id number] 5 [place] 00:00:00 00:00:00 Health Results Test Description Test Time Test Comments Results Result Comments Source GLUBED 2020-07-17 17:26:00 Test Item Value Reference Range Interpretation Comme nts GLUBED (test code = GLUBED) 246 MG/DL 70-110 H Performed by certified 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 [facility] [id number] 13:12:00 Test Item Value Reference Range Interpretation Comments GLUBED (test code = 233 MG/DL 70-110 H Performe d by certified GLUBED) 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 [facility] [id number] 08:24:00 Test Item Value Reference Range Interpretation Comments GLUBED (test code = 157 MG/DL 70-110 H Performe d by certified GLUBED) 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 [facility] [id number] 06:46:00 Test Item Value Reference Range Interpretation Comments GLUBED (test code = 159 MG/DL 70-110 H Performe d by certified GLUBED) 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 [facility] [id number] 20:20:00 Test Item Value Reference Range Interpretation Comments GLUBED (test code = 174 MG/DL 70-110 H Performe d by certified GLUBED) 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 [facility] [id number] 17:34:00 Test Item Value Reference Range Interpretation Comments GLUBED (test code = 101 MG/DL 70-110 N Performe d by certified GLUBED) 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 [facility] [id number] 12:09:00 Test Item Value Reference Range Interpretation Comments GLUBED (test code = 176 MG/DL 70-110 H Performe d by certified GLUBED) 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 [facility] BASIC METABOLIC [id number] 11:39:00 Test Item Value Reference Range Interpretation [...] 8.3 mg/dL 8.0-10.5 N CA) CBC W/AUTO [id number] 11:24:00 Test Item Value Reference Range Interpretation [...] DIFF REQUIRED (test code NO = MDIFF) [id number] 06:50:00 Test Item Value Reference Range Interpretation Comments GLUBED (test code = 192 MG/DL 70-110 H Performe d by certified GLUBED) 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 [facility] [id number] 19:48:00 Test Item Value Reference Range Interpretation Comments GLUBED (test code = 187 MG/DL 70-110 H Performe d by certified GLUBED) 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 [facility] [id number] 17:18:00 Test Item Value Reference Range Interpretation Comments GLUBED (test code = 128 MG/DL 70-110 H Performe d by certified GLUBED) 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 [facility] C REACTIVE [id number] 13:50:00 Test Item Value Reference Range Interpretation Comments C REACTIVE PROTEIN (test code = CRP) 8.0 mg/L <10.0 N BASIC METABOLIC [id number] 13:50:00 Test Item Value Reference Range Interpretation [...] 8.7 mg/dL 8.0-10.5 N CA) CBC W/AUTO [id number] 13:19:00 Test Item Value Reference Range Interpretation [...] REQUIRED (test code = MDIFF) CBC W/AUTO [id number] 13:19:00 Test Item Value Reference Range Interpretation [...] DIFF REQUIRED (test code NO = MDIFF) [id number] 12:05:00 Test Item Value Reference Range Interpretation Comments GLUBED (test code = 209 MG/DL 70-110 H Performe d by certified GLUBED) 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 [facility] [id number] 08:16:00 Test Item Value Reference Range Interpretation Comments GLUBED (test code = 208 MG/DL 70-110 H Performe d by certified GLUBED) 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 [facility] [id number] 20:50:00 Test Item Value Reference Range Interpretation Comments GLUBED (test code = 232 MG/DL 70-110 H Performe d by certified 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) 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 [facility] [id number] 18:45:00 Test Item Value Reference Range Interpretation Comments GLUBED (test code = 146 MG/DL 70-110 H Performe d by certified GLUBED) 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 [facility] - DUP LE ART [id number] 17:18:00 [facility] 1960 Sex: M Name: MARCOS RAMOS [facility] [place] : 1960 Age/S: 60 / M [address] [place] [address] Unit #: [id number] Loc: [place] [address] Phys: Mark Alexander 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 FINDINGS: RIGHT LOWER EXTREMITY: TIG WELDER: Patent, triphasic waveform. SFA: Patent, triphasic waveform. Popliteal: Patent, triphasic waveform. Posterior tibial: Patent, triphasic waveform. Dorsalis pedis: Patent, triphasic waveform. LEFT LOWER EXTREMITY: TIG WELDER: Patent, triphasic waveform. SFA: Patent, biphasic waveform. Popliteal: Patent, triphasic waveform. Posterior tibial: Patent, biphasic waveform. Dorsalis pedis: Patent, triphasic waveform. IMPRESSION: Patent bilateral lower extremity arterial vasculature with multiphasic waveforms. SL: [id number] at 1718 Reported and signed by: Kuldeep Kuo M.D. 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 Acct: [id number] Date: Status: ADM IN PHONE #: [phone] Exam Date: 07/14/20201654 FAX #: [phone] Reason: bilat foot uclers EXAMS: CPT CODE: [id number] DUP LE ART ABHISHEK 44885 <Continued> CC: Ceci VALENCIA; Mark Alexander NP Technologist: Sherin Hudson RDMS(AB) Trnscb Date/Time: 07/14/2020 (1717) [email or web address] Orig Print D/T: S: 07/14/2020 (1720) Probe: PAGE 2 Signed Report- DUP VEIN [id number] 17:03:00 [facility] 1960 Sex: M Name: MARCOS RAMOS [facility] : 1960 Age/S: 60 / M [address] [place] [address] Bl Unit #: [id number] Loc: [place] [address] Phys: Jocelynn Mehta 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 FINDINGS: Right lower extremity: Nonocclusive thrombus in the right popliteal vein. Common femoral, femoral, and posterior tibial veins are patent. Saphenofemoral junction is patent. Left lower extremity: Thrombus ident ified in the femoral vein and popliteal vein. Common femoral and posterior tibial veins are patent. Saphenofemoral junction is patent. IMPRESSION: Bilateral lower extremity DVT. Findings relayed to the patient's nurse Porfirio at 1702 hours on 07/14/2020. SL: [id number] at 1703 Reported and signed by: Kuldeep Kuo M.D. CC: Jocelynn Mehta; Judah Campuzano MD Technologist: Sherin Hudson RDMS() Trninb Date/Time: 07/14/2020 (1702) [email or web address] Orig Print D/T: S: 07/14/2020 (170) Probe: PAGE 1 Signed [id number] 16:30:00 Test Item Value Reference Range Interpretation [...] APPROPRIATECLIN ICAL EUALUATIONS. 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 Shortness of breath.Comparison: 11/19/2014. TECHNIQUE: Contiguous axial CT angiographic images of the chest were acquiredfollowing administration of 100 mL Isovue-300 IV contrast. Coronal and sagittal reconstructions werecreated. 3D MIP reformatted images were created. CT imaging performed at this location utilizes radiation dose optimization techniques which include one or more of the following: -Automated exposure co ntrol -Adjustment of the mA and/or kV according to patient size -Use of iterative reconstruction technique CT Radiation Dose DLP 806.3 mGy-cm FINDINGS: Pulmonary arteries are patent. Main pulmonary artery and thoracic aorta are normal caliber. Scattered atelectatic changes and calcified granulomata. No consolidation, pleural effusion, or pneumothorax. No groundglass opacities. Heart size normal. Moderate coronary artery calcifications. Calcified mediastinal and hilar lymph nodes. Visualized thyroidgland is unremarkable. Central airway is patent. Thickening of the mid esophagus. Partially imaged up per abdomen shows few calcified hepatic granulomata. Degenerative changes of the spine. IMPRESSION: 1. No CT angiographic evidence of acute pulmonary embolism. No chronic thrombotic changes. 2. Thickening of the mid esophagus, possibly esophagitis or underlying lesion. Correlate clinically. 3. Moderate coronary artery calcifications. 4. Evidence of prior granulomatous process. SL: [id number] PAGE 1Signed Report (CONTINUED) Name: MARCOS RAMOS [facility] : 1960 Age/S: 60 / M [address] [place] [address] Unit #: [id number] Loc: [place] [address] Phys: Jocelynn Mehta Acct: [id number] Dis Date: Status: ADM IN PHONE #: [phone] Exam Date: 07/14/2020 1553 FAX #: [phone] Reason: rule out PE, Hx of PE EXAMS: CPT CODE: [id number] [place] [address] <Continued> at 1624 Reported and signed by: Aaron Blair CC: Jocelynn Mehta; Judah Campuzano MD Technologist:RT Schuyler(R) CTDI: DLP: Trnscb Date/Time: 07/14/2020 (1623) [email or web address] Orig Print D/T: S: 07/14/2020 (7654) PAGE 2 Signed [id number] 15:20:00 Test Item Value Reference Range Interpretation Comments GLUBED (test code = 177 MG/DL 70-110 H Performe d by certified GLUBED) 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 045 Positive: (test code = >= 0.046 Correl ation with TROPI) serial results, other cardiac markers andclin ical findings is necessary to determine the clinicalsignifi cance of this result. Results using different metho dologies should not be c omparedto one another as aaron titative results may masoud y by method. CBC W/AUTO [id number] 11:02:00 Test Item Value Reference Range Interpretation [...] (test code NO = MDIFF) CBC W/AUTO [id number] 11:01:00 Test Item Value Reference Range Interpretation [...] MANUAL DIFF REQUIRED (test code = MDIFF) [id number] 10:08:00 Test Item Value Reference Range Interpretation Comments GLUBED (test code = 165 MG/DL 70-110 H Performe d by certified GLUBED) 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 [facility] LACTIC ACID 2ND [id number] 21:31:00 Test Item Value Reference Range Interpretation Comments LACTIC ACID 2ND REPEAT (test code 1.9 mmol/L 0.4-1.9 N = LACT2) [id number] 21:04:00 Test Item Value Reference Range Interpretation Comments GLUBED (test code = 224 MG/DL 70-110 H Performe d by certified GLUBED) 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 [facility] [id number] 19:23:00 Test Item Value Reference Range Interpretation Comments TROPONIN-I 0.045 ng/mL 0.000-0.045 N Negative: <= 0. 045 Positive: (test code = >= 0.046 Correl ation with TROPI) serial results, other cardiac markers andclin ical findings is necessary to determine the clinicalsignifi cance of this result. Results using different metho dologies should not be c omparedto one another as aaron titative results may masoud y by method. HGBA1C%2020-07-13 19:23:00 Test Item Value Reference Range Interpretation Comments HGBA1C% (test code = HGBA1C%) 11.2 %A1C 4.8-6.0 H LACTIC ACID [id number] 19:17:00 Test Item Value Reference Range Interpretation Comments LACTIC ACID REPEAT (test code = 2.3 mmol/l 0.4-1.9 H LACTR) UA RFLX MICR CULT IF [id number] 17:25:00 Test Item Value Reference Range Interpretation [...] culture: RiskForSepsis-no oth srcSpecimen Description: CLEAN CATCHLIPOPROTEIN [id number] 17:03:00 Test Item Value Reference Range Interpretation Comments LIPOPROTEIN LDL 165.8 mg/dL 0-100 H <100 OPTIMAL 100-129 (test code = LDL) NEAR OPTIM AL/ABOVE [id number] 89 HIGH>IT=918 MELCHOR Y HIGH*Guidelines provided by the National Choles terol EducationProa Adult Treatment Panel III BASIC METABOLIC [id number] 16:44:00 Test Item Value Reference Range Interpretation [...] 8.8 mg/dL 8.0-10.5 N CA) HEPATIC FUNCTION [id number] 16:44:00 Test Item Value Reference Range Interpretation [...] 121 IUnit/L 20-125 N code = ALKP) [id number] 16:44:00 Test Item Value Reference Range Interpretation Comments TROPONIN-I 0.048 ng/mL 0.000-0.045 H Negative: <= 0. 045 Positive: (test code = >= 0.046 Correl ation with TROPI) serial results, other cardiac markers andclin ical findings is necessary to determine the clinicalsignifi cance of this result. Results using different metho dologies should not be c omparedto one another as aaron titative results may masoud y by method. BASIC METABOLIC [id number] 16:41:00 Test Item Value Reference Range Interpretation [...] code = CA) mg/dL 8.0-10.5 HEPATIC FUNCTION [id number] 16:41:00 Test Item Value Reference Range Interpretation Comments TOTAL PROTEIN (test code = PROT) g/dL 6.4-8.2 ALBUMIN (test code = ALB) g/dL 3.4-5.0 BILIRUBIN TOTAL (test code = BILT) mg/dL 0.0-1.0 BILIRUBIN DIRECT (test code = BILD) MG/DL 0.0-0.30 SGOT/AST (test code = AST) IUnit/L 15-37 SGPT/ALT (test code = ALT) IUnit/L 30-65 ALKALINE PHOSPHATASE TOTAL (test IUnit/L 20-125 code = ALKP) [id number] 16:41:00 Test Item Value Reference Range Interpretation Comments TROPONIN-I 0.048 ng/mL 0.000-0.045 H Negative: <= 0. 045 Positive: (test code = >= 0.046 Correl ation with TROPI) serial results, other cardiac markers andclin ical findings is necessary to determine the clinicalsignifi cance of this result. Results using different metho dologies should not be c omparedto one another as aaron titative results may masoud y by method. LACTIC [id number] 16:39:00 Test Item Value Reference Range Interpretation Comments LACTIC ACID (test code = LACT) 2.6 mmol/L 0.4-1.9 H - XR CHEST 1 [id number] 16:34:00 [facility] : 1960 Sex: M FAX: Buddy Guallpa [phone] [place]: St: ADM Name: MARCOS RAMOS [facility] : 1960 Age/S: 60/M [address] [place] [address] Unit #: [id number] Loc: [place] [address] Phys: Buddy Pal SIGNAL INTEGRITY ENGINEER Acct: [id number] Dis Date: Status: ADM IN PHONE #: [phone] Exam Date: 07/13/20201628 FAX #: [phone] Reason: sepsis EXAMS: CPT CODE: [id number] XR CHEST 1 V 20647 Portable single view AP chest INDICATION: Sepsis. Shortness of breath. Comparison: 11/20/2014 chest x-ray FINDINGS: The cardiomediastinal silhouette is normal in size. Faint right basilar pulmonary opacities are present and maybe exaggerated by asymmetric elevation of the right hemidiaphragm crowding the bronchovascular markings. Remaining lungs are clear. Costophrenic angles are sharp. No suspicious osseous abnormality is seen. IMPRESSION: Suspected faint right basilar infiltrate. SL: LIZ at 1634 Reported and signed by: Festus Mejia M.D. CC: Buddy Pal NP Technologist: Meme Banerjee RT(R); RT Abimbola(R) Trnscrd Date/Time/By: 07/13/2020 (9997) : By: SunnySG9 Orig Print D/T: S: 07/13/2020 (7528) PAGE 1 Signed ReportCBC W/AUTO DIFF 2020-07-13 16:28:00 Test Item Value Reference Range Interpretation [...] (test code NO = MDIFF) CBC W/AUTO [id number] 16:27:00 Test Item Value Reference Range Interpretation [...]
[2022-01-12 14:18] LABS: Urine Blood Trace-lysed (Negative); Urine Glucose Negative (Negative); Urine Protein 3+ (Negative); Urine Specific Gravity 1.015 (1.005-1.030)
[2022-01-12] MEDS ORDERED: NA CHLORIDE 0.9% 1,000 ML ONE (14:18)
[2022-01-12] MEDS ORDERED: ONDANSETRON 4 MG/2 ML VIAL ONE (14:18)
--- NOTE | 2022-01-12 14:39 | RAD REPORT ---
EXAM DESCRIPTION: RAD - Chest Single View - 01/12/2022 2:21 pm CLINICAL HISTORY: ABDOMINAL DISTENTION Chest pain. COMPARISON: Chest Single View dated 01/04/2022; Chest Single View dated 12/25/2021; Chest Single View dated 12/02/2021; Chest Single View dated 10/20/2021 FINDINGS: Portable technique limits examination quality. The lungs are grossly clear. The heart is normal in size. No displaced fractures. IMPRESSION: No acute intrathoracic process suspected.
--- NOTE | 2022-01-12 14:41 | RAD REPORT ---
EXAM DESCRIPTION: CT - Abdomen Pelvis Wo Contrast - 01/12/2022 2:33 pm CLINICAL HISTORY: Abdominal pain. Nausea/vomiting COMPARISON: Abdomen Pelvis Wo Contrast dated 01/04/2022 TECHNIQUE: CT imaging of the abdomen and pelvis was performed without contrast. Solid organ, bowel a nd vascular assessment is limited due to lack of IV and oral contrast. All CT scans are performed using dose optimization technique as appropriate and may include automated exposure control or mA/KV adjustment according to patient size. FINDINGS: The lower lung cummins are clear.Small right pleural effusion. The liver, spleen, pancreas, adrenal glands and kidneys are within normal limits for a limited non-co ntrast examination. No bowel obstruction, free air, free fluid or abscess. There is significant retained stool throughout the colon. The appendix is normal. Moderate lower lumbar spondylosis. IMPRESSION: No acute intra-abdominal or pelvic findings. Prominent fecal retention colon. A limited non-contrast examination was performed as detailed.
[2022-01-12] MEDS ORDERED: PROMETHAZINE INJ 25 MG/ML AMP ONE ×2 (15:10→16:21)
[2022-01-12] MEDS ORDERED: HYDROMORPHONE HCL 1 MG/ML INJ ONE ×2 (15:11→16:21)
[2022-01-12 15:13] LABS: Absolute Lymphocytes (CBC) 1.1 K/uL (0.7-4.9); Hematocrit 29.9 % (39.6-49.0); Lymphocytes % 21.8 % (15.3-44.8); MCV 86.3 fL (80-100); MPV 8.5 fL (7.6-11.3); RBC Red Blood Cell Count 3.47 M/uL (4.33-5.43)
[2022-01-12 15:14] LABS: Protime INR 1.15
[2022-01-12 15:30] LABS: ALT/SGPT 24 U/L (12-78); AST/SGOT 15 U/L (15-37); Albumin 2.9 g/dL (3.4-5.0); Alkaline Phosphatase 110 U/L (45-117); BUN Blood Urea Nitrogen 51 mg/dL (7-18); Bicarbonate 26 mmol/L (21-32); Bilirubin Total 0.3 mg/dL (0.2-1.0); Glomerular Filtration Rate 21 ml/min (=/>90); Glucose Level 87 mg/dL (74-106); Lipase 53 U/L (73-393); Magnesium 1.6 mg/dL (1.8-2.4); NT PRO-BNP 2131 pg/mL (<125); Potassium 4.3 mmol/L (3.5-5.1); Protein, Total 6.8 g/dL (6.4-8.2); Sodium Level 137 mmol/L (136-145); Troponin High Sensitivity 12.5 pg/mL (<58.9)
[2022-01-12 15:37] LABS: Bilirubin Direct < 0.1 mg/dL (0-0.2)
[2022-01-12] MEDS ORDERED: MAGNESIUM SULFATE 1 gm IVPB 1 GM/100 ML BAG IV ONE (15:55)
--- NOTE | 2022-01-12 16:12 | ER ---
Nurse's Notes [facility] Name: Gasper Fry Age: 61 yrs Sex: Male : 1960 Arrival Date: 01/12/2022 Time: 13:41 Bed 10 Private MD: Diagnosis: Abdominal pain, Generalized;Hypomagnesemia;Bipolar disorder, unspecified;Unspecified kidney failure-chronic Presentation: 01/12 13:56 Chief complaint: Patient states: patient states he has been nauseated for approx one ap3 week, and was seen here for it. he states the nausea pills he received have not helped alleviate his symptoms. patient also reports mid-abdominal pain. Coronavirus screen: At this time, the client does not indicate any symptoms associated with coronavirus-19. Ebola Screen: No symptoms or risks identified at this time. Initial Sepsis Screen: Does the patient meet any 2 criteria? No. Patient's initial sepsis screen is negative. Does the patient have a suspected source of infection? No. Patient's initial sepsis screen is negative. Risk Assessment: Do you want to hurt yourself or someone else? Patient reports no desire to harm self or others. Onset of symptoms was January 04, 2022. 13:56 Method Of Arrival: Wheelchair ap3 13:56 Acuity: DARREL 3 ap3 Triage Assessment: 13:59 General: Appears in no apparent distress. Behavior is calm, cooperative. Pain: ap3 Complains of pain in umbilical area Pain currently is 8 out of 10 on a pain scale. Also complains of nausea. Neuro: Level of Consciousness is awake, alert, obeys commands, Oriented to person, place, time, situation, Speech is normal. Cardiovascular: Patient's skin is warm and dry. Respiratory: Airway is patent Respiratory effort is even, unlabored, Respiratory pattern is regular, symmetrical. GI: Reports nausea, vomiting. Historical: - Allergies: 13:58 Haldol (Anaphylaxis); ap3 - PMHx: 13:58 ADD/ADHD; Anxiety; Bipolar disorder; Cellulitis; Chronic pain; unstable angina; ap3 Seizures; Schizophrenia; Parkinson's disease; neuropathy; Hypertension; Diabetes - IDDM; CVA; Congestive heart failure; - Immunization history:: Client reports receiving the 2nd dose of the Covid vaccine. - Social history:: Smoking status: Patient reports the use of cigarette tobacco products, smokes one-half pack cigarettes per day. - Family history:: not pertinent. Screenin:59 Abuse screen: Denies threats or abuse. Nutritional screening: Has had N/V for 3 or more ap3 days. Tuberculosis screening: No symptoms or risk factors identified. 15:17 Fall Risk None identified. bm7 Assessment: 14:00 GI: Abdomen is non-distended, Bowel sounds present X 4 quads. ap3 15:17 Reassessment: Patient and/or family updated on plan of care and expected duration. Pain bm7 level reassessed. Patient is alert, oriented x 3, equal unlabored respirations, skin warm/dry/pink. General: Appears in no apparent distress. uncomfortable, Behavior is calm, cooperative. Pain: Complains of pain in umbilical area Pain does not radiate. Pain currently is 8 out of 10 on a pain scale. Neuro: No deficits noted. Cardiovascular: Chest pain is denied. Respiratory: Denies shortness of breath. GI: Abdomen is round non-distended, Bowel sounds present X 4 quads. Abd is soft X 4 quads Abdomen is tender to palpation in umbilical area Reports nausea. : No deficits noted. No signs and/or symptoms were reported regarding the genitourinary system. EENT: No deficits noted. No signs and/or symptoms were reported regarding the EENT system. Derm: No deficits noted. No signs and/or symptoms reported regarding the dermatologic system. Musculoskeletal: No deficits noted. No signs and/or symptoms reported regarding the musculoskeletal system. 16:09 Reassessment: Patient and/or family updated on plan of care and expected duration. Pain bm7 level reassessed. Patient is alert, oriented x 3, equal unlabored respirations, skin warm/dry/pink. Vital Signs: 13:56 BP 144 / 72; Pulse 76; Resp 18; Temp 98.4; Pulse Ox 100% ; Weight 90.72 kg; Height 6 ap3 ft. (182.88 cm); Pain 8/10; 15:16 BP 134 / 61; Pulse 76; Resp 16; Pulse Ox 100% on R/A; Pain 8/10; bm7 15:51 BP 137 / 82; Pulse 68; Resp 16; Pulse Ox 100% on R/A; Pain 3/10; bm7 16:35 BP 112 / 56; Pulse 75; Resp 14; Temp 97.3(TE); Pulse Ox 97% on R/A; Pain 2/10; bm7 13:56 Body Mass Index 27.12 (90.72 kg, 182.88 cm) ap3 ED Course: 13:41 Patient arrived in ED. as 13:58 Triage completed. ap3 13:59 Arm band placed on right wrist. ap3 14:06 Lance Ponce MD is Attending Physician. jerome 14:09 Arabella Vargas, RN is Primary Nurse. bm7 14:23 XRAY Chest (1 view) In Process Unspecified. EDMS 14:[address] bm7 14:35 Abdomen In Process Unspecified. EDMS 15:17 No apparent distress. Resting quietly. Awaiting lab results. bm7 15:17 Patient has correct armband on for positive identification. Placed in gown. Bed in low bm7 position. Call light in reach. Side rails up X2. Client placed on continuous cardiac and pulse oximetry monitoring. NIBP monitoring applied. secured entrance monitor on. Warm blanket given. Assisted with urinal. 15:17 No provider procedures requiring assistance completed. Inserted saline lock: 20 gauge bm7 in right forearm, using aseptic technique. Blood collected. Patient maintains SpO2 saturation greater than 95% on room air. 16:09 Bryan Lara MD is Referral Physician. [facility] 17:00 IV discontinued, intact, bleeding controlled, No redness/swelling at site. Pressure bm7 dressing applied. Administered Medications: 14:54 Drug: NS 0.9% 1000 ml Route: IV; Rate: 125 ml/hr; Site: right forearm; bm7 17:02 Follow up: IV Status: Completed infusion; IV Intake: 300ml bm7 14:54 Drug: Zofran (Ondansetron) 4 mg Route: IVP; Site: right forearm; bm7 15:16 Follow up: Response: Nausea unchanged bm7 15:12 Drug: Dilaudid (HYDROmorphone) 1 mg Route: IVP; Site: right forearm; bm7 15:45 Follow up: Response: Pain is decreased bm7 15:12 Drug: Phenergan (promethazine) 12.5 mg Route: IVP; Site: right forearm; bm7 15:45 Follow up: Response: Nausea is decreased bm7 15:51 Drug: Magnesium Sulfate 1 grams Route: IVPB; Infused Over: 1 hrs; Site: right forearm; bm7 17:01 Follow up: IV Status: Completed infusion bm7 16:19 Drug: Dilaudid (HYDROmorphone) 1 mg Route: IVP; Site: right forearm; bm7 17:01 Follow up: Response: Pain is decreased bm7 16:19 Drug: Phenergan (promethazine) 12.5 mg Route: IVP; Site: right forearm; bm7 17:01 Follow up: Response: No adverse reaction bm7 Medication: 15:17 VIS not applicable for this client. bm7 Intake: 17:02 IV: 300ml; Total: 300ml. bm7 Outcome: 16:11 Discharge ordered by MD. cano 17:00 Discharged to home via wheelchair. bm7 17:00 Condition: improved 17:00 Discharge instructions given to patient, family, Instructed on discharge instructions, follow up and referral plans. medication usage, Demonstrated understanding of instructions, follow-up care, medications, Prescriptions given X 3. 17:02 Patient left the ED. bm7 Signatures: Dispatcher [employer] EDLance Cummins MD MD cha Martinez, Amelia as Prokisch, Amanda, RN RN ap3 Arabella Vargas RN RN bm7
--- NOTE | 2022-01-12 16:12 | EDPHYS ---
Physician Documentation [facility] Name: Gasper Fry Age: 61 yrs Sex: Male : 1960 Arrival Date: 01/12/2022 Time: 13:41 Bed 10 Private MD: OLEG Physician Lance Ponce HPI: 01/12 16:04 This 61 yrs old Male presents to ER via Wheelchair with complaints of jerome Abdominal Pain. 16:04 The patient presents with abdominal pain in the upper abdomen, in the lower abdomen, jerome abdominal distention in the upper abdomen, in the lower abdomen. Onset: The symptoms/episode began/occurred 7 day(s) ago. The symptoms do not radiate. Associated signs and symptoms: Pertinent positives: nausea. The symptoms are described as crampy. Modifying factors: The symptoms are alleviated by nothing, the symptoms are aggravated by nothing. Severity of pain: At its worst the pain was mild in the emergency department the pain is unchanged. The patient has experienced similar episodes in the past. Historical: - Allergies: 13:58 Haldol (Anaphylaxis); ap3 - PMHx: 13:58 ADD/ADHD; Anxiety; Bipolar disorder; Cellulitis; Chronic pain; unstable angina; ap3 Seizures; Schizophrenia; Parkinson's disease; neuropathy; Hypertension; Diabetes - IDDM; CVA; Congestive heart failure; - Immunization history:: Client reports receiving the 2nd dose of the Covid vaccine. - Social history:: Smoking status: Patient reports the use of cigarette tobacco products, smokes one-half pack cigarettes per day. - Family history:: not pertinent. ROS: 16:04 Constitutional: Negative for fever, chills, and weight loss, Eyes: Negative for injury, jerome pain, redness, and discharge, ENT: Negative for injury, pain, and discharge, Neck: Negative for injury, pain, and swelling, Cardiovascular: Negative for chest pain, palpitations, and edema, Respiratory: Negative for shortness of breath, cough, wheezing, and pleuritic chest pain, Back: Negative for injury and pain, : Negative for injury, bleeding, discharge, and swelling, MS/Extremity: Negative for injury and deformity, Skin: Negative for injury, rash, and discoloration, Neuro: Negative for headache, weakness, numbness, tingling, and seizure, Psych: Negative for depression, anxiety, suicide ideation, homicidal ideation, and hallucinations, Allergy/Immunology: Negative for hives, rash, and allergies, Endocrine: Negative for neck swelling, polydipsia, polyuria, polyphagia, and marked weight changes, Hematologic/Lymphatic: Negative for swollen nodes, abnormal bleeding, and unusual bruising. 16:04 Abdomen/GI: Positive for abdominal pain, nausea. Exam: 16:04 Constitutional: This is a well developed, well nourished patient who is awake, alert, jerome and in no acute distress. Head/Face: Normocephalic, atraumatic. Eyes: Pupils equal round and reactive to light, extra-ocular motions intact. Lids and lashes normal. Conjunctiva and sclera are non-icteric and not injected. Cornea within normal limits. Periorbital areas with no swelling, redness, or edema. ENT: Nares patent. No nasal discharge, no septal abnormalities noted. Tympanic membranes are normal and external auditory canals are clear. Oropharynx with no redness, swelling, or masses, exudates, or evidence of obstruction, uvula midline. Mucous membranes moist. Neck: Trachea midline, no thyromegaly or masses palpated, and no cervical lymphadenopathy. Supple, full range of motion without nuchal rigidity, or vertebral point tenderness. No Meningismus. Chest/axilla: Normal chest wall appearance and motion. Nontender with no deformity. No lesions are appreciated. Cardiovascular: Regular rate and rhythm with a normal S1 and S2. No gallops, murmurs, or rubs. Normal PMI, no JVD. No pulse deficits. Respiratory: Lungs have equal breath sounds bilaterally, clear to auscultation and percussion. No rales, rhonchi or wheezes noted. No increased work of breathing, no retractions or nasal flaring. Abdomen/GI: Soft, non-tender, with normal bowel sounds. No distension or tympany. No guarding or rebound. No evidence of tenderness throughout. Back: No spinal tenderness. No costovertebral tenderness. Full range of motion. Male : Normal genitalia with no discharge or lesions. Skin: Warm, dry with normal turgor. Normal color with no rashes, no lesions, and no evidence of cellulitis. MS/ Extremity: Pulses equal, no cyanosis. Neurovascular intact. Full, normal range of motion. Neuro: Awake and alert, GCS 15, oriented to person, place, time, and situation. Cranial nerves II-XII grossly intact. Motor strength 5/5 in all extremities. Sensory grossly intact. Cerebellar exam normal. Normal gait. Psych: Awake, alert, with orientation to person, place and time. Behavior, mood, and affect are within normal limits. 16:04 Musculoskeletal/extremity: DVT Exam: No signs of deep vein thrombosis. no pain, no swelling, no tenderness, negative Homans' sign noted on exam, no appreciated bluish discoloration, no erythema, no increased warmth. 16:08 Cardiovascular: [facility] 16:08 ECG was reviewed by the Attending Physician. Vital Signs: 13:56 BP 144 / 72; Pulse 76; Resp 18; Temp 98.4; Pulse Ox 100% ; Weight 90.72 kg; Height 6 ap3 ft. (182.88 cm); Pain 8/10; 15:16 BP 134 / 61; Pulse 76; Resp 16; Pulse Ox 100% on R/A; Pain 8/10; bm7 15:51 BP 137 / 82; Pulse 68; Resp 16; Pulse Ox 100% on R/A; Pain 3/10; bm7 16:35 BP 112 / 56; Pulse 75; Resp 14; Temp 97.3(TE); Pulse Ox 97% on R/A; Pain 2/10; bm7 13:56 Body Mass Index 27.12 (90.72 kg, 182.88 cm) ap3 MDM: 14:06 Patient medically screened. [facility] 16:07 Differential diagnosis: bowel obstruction, Cholelithiasis, diverticulitis, gastritis, jerome gastroesophageal reflux disease, non-specific abd pain, pancreatitis, Peptic Ulcer Disease, urinary tract infection. Data reviewed: vital signs, nurses notes, lab test result(s), EKG, radiologic studies, CT scan, plain films. Data interpreted: personnel monitor: rate is 68 beats/min, rhythm is regular, Pulse oximetry: on room air is 100 %. Counseling: I had a detailed discussion with the patient and/or guardian regarding: the historical points, exam findings, and any diagnostic results supporting the discharge/admit diagnosis, lab results, radiology results, the need for outpatient follow up, for definitive care, a family practitioner, a mortician helper. 01/12 14:08 Order name: Basic Metabolic Panel; Complete Time: 15:43 [facility] 01/12 14:08 Order name: CBC with Diff; Complete Time: 15:32 [facility] 01/12 14:08 Order name: LFT's; Complete Time: 15:43 [facility] 01/12 14:08 Order name: Magnesium; Complete Time: 15:43 [facility] 01/12 14:08 Order name: NT PRO-BNP; Complete Time: 15:43 [facility] 01/12 14:08 Order name: PT-INR; Complete Time: 15:32 [facility] 01/12 14:08 Order name: Troponin HS; Complete Time: 15:43 [facility] 01/12 14:08 Order name: XRAY Chest (1 view); Complete Time: 15:32 [facility] 01/12 14:08 Order name: Lipase; Complete Time: 15:43 [facility] 01/12 14:08 Order name: AMMONIA; Complete Time: 15:32 [facility] 01/12 14:08 Order name: CT Abd/Pelvis - Without Contrast [facility] 01/12 14:13 Order name: Abdomen ; Complete Time: 15:32 EDMS 01/12 14:18 Order name: Urine Dipstick-Ancillary; Complete Time: 15:32 EDMS 01/12 14:08 Order name: EKG; Complete Time: 14:09 [facility] 01/12 14:08 Order name: Cardiac monitoring; Complete Time: 14:30 [facility] 01/12 14:08 Order name: EKG - Nurse/Tech; Complete Time: 14:54 [facility] 01/12 14:08 Order name: IV Saline Lock; Complete Time: 14:54 [facility] 01/12 14:08 Order name: Labs collected and sent; Complete Time: 14:54 [facility] 01/12 14:08 Order name: O2 Per Protocol; Complete Time: 14:30 [facility] 01/12 14:08 Order name: O2 Sat Monitoring; Complete Time: 14:30 [facility] 01/12 14:08 Order name: Urine Dipstick-Ancillary (obtain specimen); Complete Time: 14:30 [facility] EC:08 Rate is 42 beats/min. Rhythm is regular. QRS Hume is Normal. TN interval is normal. QRS jerome interval is normal. QT interval is normal. No Q waves. T waves are Normal. No ST changes noted. Clinical impression: Abnormal EKG without significant change and No evidence of ischemia. Interpreted by me. Reviewed by me. Administered Medications: 14:54 Drug: NS 0.9% 1000 ml Route: IV; Rate: 125 ml/hr; Site: right forearm; bm7 17:02 Follow up: IV Status: Completed infusion; IV Intake: 300ml bm7 14:54 Drug: Zofran (Ondansetron) 4 mg Route: IVP; Site: right forearm; bm7 15:16 Follow up: Response: Nausea unchanged bm7 15:12 Drug: Dilaudid (HYDROmorphone) 1 mg Route: IVP; Site: right forearm; bm7 15:45 Follow up: Response: Pain is decreased bm7 15:12 Drug: Phenergan (promethazine) 12.5 mg Route: IVP; Site: right forearm; bm7 15:45 Follow up: Response: Nausea is decreased bm7 15:51 Drug: Magnesium Sulfate 1 grams Route: IVPB; Infused Over: 1 hrs; Site: right forearm; bm7 17:01 Follow up: IV Status: Completed infusion bm7 16:19 Drug: Dilaudid (HYDROmorphone) 1 mg Route: IVP; Site: right forearm; bm7 17:01 Follow up: Response: Pain is decreased bm7 16:19 Drug: Phenergan (promethazine) 12.5 mg Route: IVP; Site: right forearm; bm7 17:01 Follow up: Response: No adverse reaction bm7 Disposition Summary: 01/12/22 16:11 Discharge Ordered Location: Home jerome Problem: new jerome Symptoms: have improved jerome Condition: Stable jerome Diagnosis - Abdominal pain, Generalized jerome - Hypomagnesemia jerome - Bipolar disorder, unspecified jerome - Unspecified kidney failure - chronic jerome Followup: jerome - With: Private Physician - When: 2 - 3 days - Reason: Recheck today's complaints, Continuance of care, Re-evaluation by your physician Followup: jerome - With: Bryan Lara MD - When: 2 - 3 days - Reason: Recheck today's complaints, Re-evaluation by your physician Discharge Instructions: - Discharge Summary Sheet jerome - Abdominal Pain, Adult jerome - Hypomagnesemia jerome - Abdominal Pain, Adult, [id number] jerome - Chronic Kidney Disease, Adult, [id number] jerome - Nausea, Adult jerome - Nausea, Adult, [id number] jerome Forms: - Medication Reconciliation Form jerome - Thank You Letter jerome - Antibiotic Education jerome - Prescription Opioid Use jerome Prescriptions: - Protonix 40 mg Oral Tablet - take 1 tablet by ORAL route once daily; 30 tablet; Refills: 0, Product [facility] Selection Permitted - Zofran 4 mg Oral Tablet - take 1 tablet by ORAL route every 12 hours As needed; 20 tablet; Refills: 0, [facility] Product Selection Permitted - promethazine 25 mg Oral Tablet - take 1 tablet by ORAL route every 6 hours As needed; 20 tablet; Refills: 0, [facility] Product Selection Permitted Signatures: Dispatcher [employer] Lance Bradley MD MD cha Prokisch, Amanda RN RN ap3 Arabella Vargas, MALU RN bm7
[2022-01-12 17:42] VITALS: BP 112/56; TEMP 97.3; O2SAT 97
--- NOTE | 2022-01-14 13:48 | EKG ---
Test Date: 2022-01-12 Test Time: 14:44:55 Greeter Guest Services: BREANNA MEASUREMENT RESULTS: Intervals: Rate: 72 MA: 164 QRSD: 100 QT: 430 QTc: 470 [place]: P: 48 MA: 164 QRS: -45 T: 72 INTERPRETIVE STATEMENTS: Normal sinus rhythm Left anterior fascicular block Abnormal ECG Compared to ECG 01/05/2022 12:04:02 Myocardial infarct finding no longer present Electronically Signed On 01-14-22 13:44:33 CDT by Ashu Gardiner
== END 2022-01-12 17:02 | disposition home or self-care (01) ==
LOC: ER 13:40
DX: R10.84 Generalized abdominal pain (principal); E83.42 Hypomagnesemia; E11.22 Type 2 diabetes mellitus with diabetic chronic kidney disease; I13.0 Hypertensive heart and chronic kidney disease with heart failure and stage 1 through stage 4 chronic kidney disease, or unspecified chronic kidney disease; N18.9 Chronic kidney disease, unspecified; I50.9 Heart failure, unspecified; G20 Parkinson's disease; F17.210 Nicotine dependence, cigarettes, uncomplicated; Z86.73 Personal history of transient ischemic attack (TIA), and cerebral infarction without residual deficits; Z88.5 Allergy status to narcotic agent
CPT/HCPCS: 96365; 96361; 93005; 85025; 80048; 36415; 82140; 83735; 85610; 80076; 81003; 84484; 83690; 83880; 74176; 71045; 96375; 99285; J2550 ×2; J3475; J1170 ×2; J7030; J2405

== ENCOUNTER 2022-01-13 05:27 | Emergency (ER) | payer OTHER ==
--- OUTSIDE RECORDS SUMMARY | 2022-01-13 05:30 | XMS REPORT | Clinical Summary ---
:1960 Author Organization [facility] MD [facility] Center Address [address] [place] [address] Care Team Providers Name Role Phone Unavailable [...] Vaccination (#1) 1960 Results Not on fileafter 01/13/2021 Insurance Payer Benefit Plan / Subscriber ID Effective Phone Address T ype Group Dates MEDICARE MEDICARE PART A [id number] 2004-Pres [phone] [facility] Medicare AND B ent [id number] [place] [address] MEDICAID [place] MED[place]ID MD [id number] 2018-Pres [address] Medicaid TRADITIONAL TRADITIONAL ent [id number] [place] [address] Advance Directives Code Status Date Activated Date Inactivated Comments Full Code 12/19/2018 10:01 AM 12/25/2018 1:04 PM
--- OUTSIDE RECORDS SUMMARY | 2022-01-13 05:36 | XMS REPORT | Continuity of Care Document ---
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 Medical Branch benztropine 2020-06 Yes .5mg Take 0.5 [place] 1 mg tablet 1-04 tablets by it y of 00:00: mouth 2 (two) Medical times Branch daily. amLODIPine 2020-06 Yes [id number] 10mg Take 1 [facility] [place] 10 mg 1-04 tablet by ity of tablet 00:00: mouth at [place] [id number] bedtime. Medical Branch DULoxetine 2020-06 Yes [id number] 40mg Take 40 mg [facility] 40 mg CpDR 1-04 by mouth ity o f 00:00: daily. Medical Branch benztropine 2020-06 Yes .5mg Take 0.5 [facility] [place] 1 mg tablet 1-04 tablets by it y of 00:00: mouth 2 [place] (two) Medical times [place] daily. amLODIPine 2020-06 Yes [id number] 10mg Take 1 [facility] [place] 10 mg 1-04 tablet by ity of tablet 00:00: mouth at [place] [id number] bedtime. Medical Branch DULoxetine 2020-06 Yes [id number] 40mg Take 40 mg [facility] 40 mg CpDR 1-04 by mouth ity o f 00:00: daily. Medical Branch benztropine 2020-06 Yes .5mg Take 0.5 [place] 1 mg tablet 1-04 tablets by it y of 00:00: mouth 2 (two) Medical times Branch daily. amLODIPine 2020-06 Yes [id number] 10mg Take 1 [facility] [place] 10 mg 1-04 tablet by ity of tablet 00:00: mouth at [place] [id number] bedtime. Medical Branch DULoxetine 2020-06 Yes [id number] 40mg Take 40 mg [facility] 40 mg CpDR 1-04 by mouth ity o f 00:00: daily. Medical Branch benztropine 2020-06 Yes .5mg Take 0.5 [place] 1 mg tablet 1-04 tablets by it y of 00:00: mouth 2 [place] 00 (two) Medical times Branch daily. amLODIPine 2020-06 Yes [id number] 10mg Take 1 [facility] [place] 10 mg 1-04 tablet by ity of tablet 00:00: mouth at [place] 00 bedtime. Medical Branch DULoxetine 2020-06 Yes [id number] 40mg Take 40 mg [facility] 40 mg CpDR 1-04 by mouth ity o f 00:00: daily. Medical Branch benztropine 2020-06 Yes .5mg Take 0.5 [place] 1 mg tablet 1-04 tablets by it y of 00:00: mouth 2 [place] 00 (two) Medical times Branch daily. amLODIPine 2020-06 Yes [id number] 10mg Take 1 [facility] [place] 10 mg 1-04 tablet by ity of tablet 00:00: mouth at [place] 00 bedtime. Medical Branch DULoxetine 2020-06 Yes [id number] 40mg Take 40 mg [facility] 40 mg CpDR 1-04 by mouth ity o f 00:00: daily. Medical Branch sodium 2020-06- No [id number] 650mg Take 1 [facility] bicarbonate 1-04 06-16 5 tablet by it y of 650 mg 00:00: 00:00 mouth 2 [place] tablet 00 :00 (two) Medical times Branch daily. sodium 2020-06- No [id number] 650mg Take 1 [facility] bicarbonate 1-04 06-16 5 tablet by it y of 650 mg 00:00: 00:00 mouth 2 [place] tablet 00 :00 (two) Medical times Branch daily. atorvastati 2020-06 Yes [id number] 40mg Take 1 Univers n (LIPITOR) 1-01 tablet by ity of 40 mg 00:00: mouth at [place] tablet 00 bedtime. Medical Branch atorvastati 2020-06 Yes [id number] 40mg Take 1 [facility] n (LIPITOR) 1-01 tablet by ity of 40 mg 00:00: mouth at [place] tablet 00 bedtime. Medical Branch atorvastati 2020-06 Yes [id number] 40mg Take 1 [facility] n (LIPITOR) 1-01 tablet by ity of 40 mg 00:00: mouth at [place] tablet 00 bedtime. Medical Branch atorvastati 2020-06 Yes [id number] 40mg Take 1 [facility] n (LIPITOR) 1-01 tablet by ity of 40 mg 00:00: mouth at [place] tablet 00 bedtime. Medical Branch atorvastati 2020-06 Yes [id number] 40mg Take 1 [facility] n (LIPITOR) 1-01 tablet by ity of 40 mg 00:00: mouth at [place] tablet 00 bedtime. Medical Branch atorvastati 2020-06 Yes [id number] 40mg Take 1 [facility] n (LIPITOR) 1-01 tablet by ity of 40 mg 00:00: mouth at [place] tablet 00 bedtime. Medical Branch atorvastati 2020-06 Yes [id number] 40mg Take 1 [facility] n (LIPITOR) 1-01 tablet by ity of 40 mg 00:00: mouth at [place] tablet 00 bedtime. Medical Branch bumetanide 2020-06- No [id number] 2mg Take 2 [facility] 1 mg tablet 0-01 12-16 02 tablets by i ty of 00:00: 00:00 mouth 2 [place] 00 :00 (two) Medical times Branch daily. bumetanide 2020-06- No [id number] 2mg Take 2 [facility] 1 mg tablet 0-16 02 tablets by i ty of 00:00: 00:00 mouth 2 [place] 00 :00 (two) Medical times Branch daily. amitriptyli Yes [id number] 10mg Take 1 [facility] ne 10 mg 9-21 tablet by ity of tablet 00:00: mouth at [place] 00 bedtime. Medical Branch amitriptyli Yes [id number] 10mg Take 1 [facility] ne 10 mg 9-21 tablet by ity of tablet 00:00: mouth at [place] 00 bedtime. Medical Branch amitriptyli Yes [id number] 10mg Take 1 [facility] ne 10 mg 9-21 tablet by ity of tablet 00:00: mouth at [place] 00 bedtime. Medical Branch amitriptyli Yes [id number] 10mg Take 1 [facility] ne 10 mg 9-21 tablet by ity of tablet 00:00: mouth at [place] 00 bedtime. Medical Branch amitriptyli Yes [id number] 10mg Take 1 [facility] ne 10 mg 9-21 tablet by ity of tablet 00:00: mouth at [place] [address] bedtime. Medical Branch amitriptyli Yes [id number] 10mg Take 1 [facility] ne 10 mg 9-21 tablet by ity of tablet 00:00: mouth at [place] [address] bedtime. Medical Branch amitriptyli Yes [id number] 10mg Take 1 [facility] ne 10 mg 9-21 tablet by ity of tablet 00:00: mouth at [place] [address] bedtime. Medical Branch ADVAIR Yes [id number] INHALE 1 [facility] [place] DISKUS 9-03 PUFF BY ity of 250-50 00:00: MOUTH INTO [place] mcg/dose 00 THE LUNGS Medica l inhalation TWICE Branch disk DAILY ADVAIR Yes [id number] INHALE 1 [facility] [place] DISKUS 9-03 PUFF BY ity of 250-50 00:00: MOUTH INTO [place] mcg/dose 00 THE LUNGS Medica l inhalation TWICE Branch disk DAILY ADVAIR Yes [id number] INHALE 1 [facility] [place] DISKUS 9-03 PUFF BY ity of 250-50 00:00: MOUTH INTO [place] mcg/dose 00 THE LUNGS Medica l inhalation TWICE Branch disk DAILY ADVAIR Yes [id number] INHALE 1 [facility] [place] DISKUS 9-03 PUFF BY ity of 250-50 00:00: MOUTH INTO [place] mcg/dose 00 THE LUNGS Medica l inhalation TWICE Branch disk DAILY ADVAIR Yes [id number] INHALE 1 [facility] [place] DISKUS 9-03 PUFF BY ity of 250-50 00:00: MOUTH INTO [place] mcg/dose 00 THE LUNGS Medica l inhalation TWICE Branch disk DAILY ADVAIR Yes [id number] INHALE 1 [facility] [place] DISKUS 9-03 PUFF BY ity of 250-50 00:00: MOUTH INTO [place] mcg/dose 00 THE LUNGS Medica l inhalation TWICE Branch disk DAILY ADVAIR Yes [id number] INHALE 1 [facility] [place] DISKUS 9-03 PUFF BY ity of 250-50 00:00: MOUTH INTO [place] mcg/dose 00 THE LUNGS Medica l inhalation TWICE Branch disk DAILY bacitracin- 2- No [id number] Apply to [facility] polymyxin B 02-0816 00 area(s) 2 it y of 500-10,000 00:00: 00:00 (two) [place] unit/gram 00 :00 times Medical topical daily. Branch ointment bacitracin- 2022- No [id number] Apply to [facility] polymyxin B 02-0816 area(s) 2 it y of 500-10,000 00:00: 00:00 (two) [place] unit/gram 00 :00 times Medical topical daily. Branch ointment ergocalcife Yes [id number] Take 1 [facility] rol, 8-30 capsule by ity of vitamin d2, 00:00: mouth [place] 1,250 mcg 00 weekly. Medical (50,000 Branch unit) capsule pantoprazol Yes [id number] 40mg Take 1 [facility] e 40 mg EC 8-30 tablet by ity of tablet 00:00: mouth 2 [place] (two) Medical times Branch daily. Sennosides Yes [id number] 17.2mg Take 17.2 [facility] 17.2 mg Tab 8-30 mg by ity of 00:00: mouth 2 [place] (two) Medical times Branch daily. albuterol Yes [id number] INHALE 2 [facility] 90 8-30 PUFFS INTO ity of mcg/actuati 00:00: THE LUNGS [place] on inhaler 00 THREE Medical TIMES Branch DAILY NEEDED FOR SHORTNESS OF BREATH apixaban 0 Yes [id number] 5mg Take 1 [facility] (ELIQUIS) 5 8-30 tablet by ity of mg tablet 00:00: mouth 2 [place] (two) Medical times Branch daily. Indication s: atrial fibrillati on, a fib and DVT tamsulosin 0 Yes [id number] .4mg Take 1 [facility] 0.4 mg 24 8-30 capsule by ity of hr capsule 00:00: mouth [facility] Branch daily. carvediloL Yes [id number] 25mg Take 1 [facility] 25 mg 8-30 tablet by ity of tablet 00:00: mouth 2 [place] (two) Medical times Branch daily with meals. ergocalcife 0 Yes [id number] Take 1 [facility] rol, 8-30 capsule by ity of vitamin d2, 00:00: mouth [place] 1,250 mcg 00 weekly. Medical (50,000 Branch unit) capsule pantoprazol Yes [id number] 40mg Take 1 [facility] e 40 mg EC 8-30 tablet by ity of tablet 00:00: mouth 2 (two) Medical times Branch daily. Sennosides Yes [id number] 17.2mg Take 17.2 [facility] 17.2 mg Tab 8-30 mg by ity of 00:00: mouth 2 (two) Medical times Branch daily. albuterol Yes [id number] INHALE 2 [facility] 90 8-30 PUFFS INTO ity of mcg/actuati 00:00: THE LUNGS [place] on inhaler 00 THREE Medical TIMES Branch DAILY NEEDED FOR SHORTNESS OF BREATH apixaban Yes [id number] 5mg Take 1 [facility] (ELIQUIS) 5 8-30 tablet by ity of mg tablet 00:00: mouth (two) Medical times Branch daily. Indication s: atrial fibrillati on, a fib and DVT tamsulosin Yes [id number] .4mg Take 1 [facility] 0.4 mg 24 8-30 capsule by ity of hr capsule 00:00: mouth [address] [facility] Branch daily. carvediloL Yes [id number] 25mg Take 1 [facility] 25 mg 8-30 tablet by ity of tablet 00:00: mouth (two) Medical times Branch daily with meals. ergocalcife Yes [id number] Take 1 [facility] rol, 8-30 capsule by ity of vitamin d2, 00:00: mouth [place] 1,250 mcg 00 weekly. Medical (50,000 Branch unit) capsule pantoprazol Yes [id number] 40mg Take 1 [facility] e 40 mg EC 8-30 tablet by ity of tablet 00:00: mouth (two) Medical times Branch daily. Sennosides Yes [id number] 17.2mg Take 17.2 [facility] 17.2 mg Tab 8-30 mg by ity of 00:00: mouth 2 [place] 00 (two) Medical times Branch daily. albuterol Yes [id number] INHALE 2 [facility] 90 8-30 PUFFS INTO ity of mcg/actuati 00:00: THE LUNGS [place] on inhaler 00 THREE Medical TIMES Branch DAILY NEEDED FOR SHORTNESS OF BREATH apixaban Yes [id number] 5mg Take 1 [facility] (ELIQUIS) 5 8-30 tablet by ity of mg tablet 00:00: mouth 2 (two) Medical times Branch daily. Indication s: atrial fibrillati on, a fib and DVT tamsulosin Yes [id number] .4mg Take 1 [facility] 0.4 mg 24 8-30 capsule by ity of hr capsule 00:00: mouth 2 [place] (two) Medical times Branch daily. carvediloL Yes [id number] 25mg Take 1 [facility] 25 mg 8-30 tablet by ity of tablet 00:00: mouth (two) Medical times Branch daily with meals. ergocalcife Yes [id number] Take 1 [facility] rol, 8-30 capsule by ity of vitamin d2, 00:00: mouth [place] 1,250 mcg 00 weekly. Medical (50,000 Branch unit) capsule pantoprazol Yes [id number] 40mg Take 1 [facility] e 40 mg EC 8-30 tablet by ity of tablet 00:00: mouth (two) Medical times Branch daily. Sennosides Yes [id number] 17.2mg Take 17.2 [facility] 17.2 mg Tab 8-30 mg by ity of 00:00: mouth 2 (two) Medical times Branch daily. albuterol Yes [id number] INHALE 2 [facility] 90 8-30 PUFFS INTO [...] a fib and DVT tamsulosin 2020- Yes [id number] .4mg Take 1 [facility] 0.4 mg 24 8-30 capsule by ity of hr capsule 00:00: mouth [place] (two[place] Medical times Branch daily. carvediloL Yes [id number] 25mg Take 1 [facility] 25 mg 8-30 tablet by ity of tablet 00:00: mouth (two) Medical times Branch daily with meals. ergocalcife Yes [id number] Take 1 [facility] rol, 8-30 capsule by ity of vitamin d2, 00:00: mouth [place] 1,250 mcg 00 weekly. Medical (50,000 Branch unit) capsule pantoprazol Yes [id number] 40mg Take 1 [facility] e 40 mg EC 8-30 tablet by ity of tablet 00:00: mouth 2 (two) Medical times Branch daily. Sennosides 2020- Yes [id number] 17.2mg Take 17.2 [facility] 17.2 mg Tab 8-30 mg by ity of 00:00: mouth 2 (two) Medical times Branch daily. albuterol Yes [id number] INHALE 2 [facility] 90 8-30 PUFFS INTO [...] a fib and DVT tamsulosin 0 Yes [id number] .4mg Take 1 [facility] 0.4 mg 24 8-30 capsule by [place]y of hr capsule 00:00: mouth 2 [place] (two[place] Medical times Branch daily. ergocalcife Yes [id number] Take 1 [facility] rol, 8-30 capsule by ity of vitamin d2, 00:00: mouth [place] 1,250 mcg 00 weekly. Medical (50,000 Branch unit) capsule pantoprazol 2020-0 Yes [id number] 40mg Take 1 [facility] e 40 mg EC 8-30 tablet by ity of tablet 00:00: mouth 2 (two) Medical times Branch daily. Sennosides 2020-0 Yes [id number] 17.2mg Take 17.2 [facility] 17.2 mg Tab 8-30 mg by ity of 00:00: mouth 2 (two) Medical times Branch daily. albuterol Yes [id number] INHALE 2 [facility] 90 8-30 PUFFS INTO [...] a fib and DVT tamsulosin 2020- Yes [id number] .4mg Take 1 [facility] 0.4 mg 24 8-30 capsule by ity of hr capsule 00:00: mouth [address] [facility] (two) Medical times Branch daily. ergocalcife Yes [id number] Take 1 [facility] rol, 8-30 capsule by ity of vitamin d2, 00:00: mouth [place] 1,250 mcg 00 weekly. Medical (50,000 Branch unit) capsule pantoprazol Yes [id number] 40mg Take 1 [facility] e 40 mg EC 8-30 tablet by ity of tablet 00:00: mouth (two) Medical times Branch daily. Sennosides Yes [id number] 17.2mg Take 17.2 [facility] 17.2 mg Tab 8-30 mg by ity of 00:00: mouth [place] (two) Medical times Branch daily. albuterol Yes [id number] INHALE 2 [facility] 90 8-30 PUFFS INTO [...] a fib and DVT tamsulosin 2020-0 Yes [id number] .4mg Take 1 [facility] 0.4 mg 24 8-30 capsule by ity of hr capsule 00:00: mouth 2 a s (two) Medical times Branch daily. carvediloL 2022- No [id number] 25mg Take 1 [facility] 25 mg 8-30 07-12 tablet by ity of tablet 00:00: 00:00 mouth 2 [place] 00 :00 (two) Medical times Branch daily with meals. divalproex 0 Yes 1500mg Take 1,500 Univers [...] Branch tablets by mouth at Bedtime nitroglycer 0 Yes Univer s in 0.4 [...] tablet 00 Medical Branch Gauze 0 Yes [id number] Use as Unive rs Bandage 5-26 directed ity of (KERLIX) 4 00:00: [place] X 4 " Spge 00 Medical Branch Gauze 0 Yes [id number] Use as Unive rs Bandage 5-26 directed ity of (KERLIX) 4 00:00: [place] X 4 " Spge 00 Medical Branch Gauze 0 Yes [id number] Use as Unive rs Bandage 5-26 directed ity of (KERLIX) 4 00:00: [place] X 4 " Spge 00 Medical Branch Gauze 0 Yes [id number] Use as Unive rs Bandage 5-26 directed ity of (KERLIX) 4 00:00: [place] X 4 " Spge 00 Medical Branch Gauze 0 Yes [id number] Use as Unive rs Bandage 5-26 directed ity of (KERLIX) 4 00:00: [place] X 4 " Spge 00 Medical Branch Gauze 0 Yes [id number] Use as Unive rs Bandage 5-26 directed ity of (KERLIX) 4 00:00: [place] X 4 " Spge 00 Medical Branch Gauze 0 Yes [id number] Use as Unive rs Bandage 5-26 directed ity of (KERLIX) 4 00:00: [place] X 4 " Spge 00 Medical Branch Bismuth 2020-0 2022- No [id number] Use as [place] Tribrom-Pet 5-26 06-16 directed ity of rolatum,Wh 00:00: 00:00 [place] (XEROFORM 00 :00 Medical PETROLATUM Branch DRESSING) 4 X 4 " Bndg Bismuth 0 2021- No [id number] Use as [place] Tribrom-Pet 11-01 06-16 directed ity of rolatum,Wh 00:00: 00:00 [place] (XEROFORM 00 :00 Medical PETROLATUM Branch DRESSING) 4 X 4 " Bndg Insulin 0 Yes USE [facility] [place], 3-15 DIRECTED ity of Disposable, 00:00: THREE [place] (PEN 00 TIMES Medical NEEDLE) 31 DAILY TO Branc h gauge x INJECT 3/16" Ndle INSULIN Insulin 2020-0 Yes USE [facility] [place], 3-15 DIRECTED ity of Disposable, 00:00: THREE [place] (PEN 00 TIMES Medical NEEDLE) 31 DAILY TO Branc h gauge x INJECT 3/16" Ndle INSULIN Insulin 2020-0 Yes USE [facility] [place], 3-15 DIRECTED ity of Disposable, 00:00: THREE [place] (PEN 00 TIMES Medical NEEDLE) 31 DAILY TO Branc h gauge x INJECT 3/16" Ndle INSULIN Insulin 2020-0 Yes USE [facility] [place], 3-15 DIRECTED ity of Disposable, 00:00: THREE [place] (PEN 00 TIMES Medical NEEDLE) 31 DAILY TO Branc h gauge x INJECT 3/16" Ndle INSULIN Insulin 2020-0 Yes USE [facility] [place], 3-15 DIRECTED ity of Disposable, 00:00: THREE [place] (PEN 00 TIMES Medical NEEDLE) 31 DAILY TO Branc h gauge x INJECT 3/16" Ndle INSULIN Insulin 2020-0 Yes USE [facility] [place], 3-15 DIRECTED ity of Disposable, 00:00: THREE [place] (PEN 00 TIMES Medical NEEDLE) 31 DAILY TO Branc h gauge x INJECT 3/16" Ndle INSULIN Insulin 2020-0 Yes USE [facility] [place], 3-15 DIRECTED ity of Disposable, 00:00: THREE [place] (PEN 00 TIMES Medical NEEDLE) 31 DAILY [...] o f 00:00: [place] [facility] HYDROcodone 2020-0 Yes 1 tablet [...] [place] mg tablet 00 Medical Branch cadexomer 2018-0 Yes Chronic Apply Univ ers iodine 7-20 pain of topically ity o f (IODOSORB) 00:00: right foot to [place] 0.9% gel 00 affected MD area(s) [place] every n other day. [facility] cadexomer 2018-0 Yes Chronic Apply Univ ers iodine 7-20 pain of topically ity o f (IODOSORB) 00:00: right foot to [place] 0.9% gel 00 affected MD area(s) [place] every n other day. [facility] Yes Chronic Apply Univ ers iodine 7-20 pain of topically ity o f (IODOSORB) 00:00: right foot to [place] 0.9% gel 00 affected MD area(s) [place] every n other day. [facility] Yes Chronic Apply Univ ers iodine 7-20 pain of topically ity o f (IODOSORB) 00:00: right foot to [place] 0.9% gel 00 affected MD area(s) [place] every n other day. [facility] Yes Chronic Apply Univ ers iodine 7-20 pain of topically ity o f (IODOSORB) 00:00: right foot to [place] 0.9% gel 00 affected MD area(s) [place] every n other day. [facility] benztropine Yes .5mg Take 0.5 [facility] [place] (COGENTIN) 7-19 mg by ity of 0.5 mg 10:59: mouth [place] tablet 33 twice MD daily. [facility] HYDROcodone Yes 1{tbl} Take 1 [facility] [place] -acetaminop 7-19 tablet by ity of hen (NORCO) 10:59: mouth 3 [place] as 10 mg-325 33 (three) MD mg per times a [place] tablet day. n [facility] apixaban Yes deep venous 5mg Take 5 mg Univers (ELIQUIS) 5 7-19 thrombosis by mouth ity of mg tablet 10:59: twice [place] 33 daily. MD [facility] mon[facility] benztropine Yes .5mg Take 0.5 [facility] [place] (COGENTIN) 7-19 mg by ity of 0.5 mg 10:59: mouth [place] tablet 33 twice MD daily. [facility] HYDROcodone Yes 1{tbl} Take 1 [facility] [place] -acetaminop 7-19 tablet by ity of hen (NORCO) 10:59: mouth 3 [place] 10 mg-325 33 (three) MD mg per times a [place] tablet day. n [facility] apixaban Yes deep venous 5mg Take 5 mg Univers (ELIQUIS) 5 7-19 thrombosis by mouth ity of mg tablet 10:59: twice [place] 33 daily. [facility] .5mg Take 0.5 [facility] [place] (COGENTIN) 7-19 mg by ity of 0.5 mg 10:59: mouth [place] tablet 33 twice MD daily. [facility] HYDROcodone Yes 1{tbl} Take 1 [facility] [place] -acetaminop 7-19 tablet by ity of hen (NORCO) 10:59: mouth 3 [place] 10 mg-325 33 (three) MD mg per times a [place] tablet day. [facility] apixaban Yes deep venous 5mg Take 5 mg Univers (ELIQUIS) 5 7-19 thrombosis by mouth ity of mg tablet 10:59: twice [place] 33 daily. MD [place] [facility] benztropine Yes .5mg Take 0.5 [place] (COGENTIN) 7-19 mg by ity of 0.5 mg 10:59: mouth [place] tablet 33 twice MD daily. [facility] HYDROcodone Yes 1{tbl} Take 1 [facility] [place] -acetaminop 7-19 tablet by ity of hen (NORCO) 10:59: mouth 3 [place] 10 mg-325 33 (three) MD mg per times a [place] tablet day. [facility] apixaban Yes deep venous 5mg Take 5 mg Univers (ELIQUIS) 5 7-19 thrombosis by mouth ity of mg tablet 10:59: twice [place] 33 daily. MD [place] [facility] benztropine Yes .5mg Take 0.5 [facility] [place] (COGENTIN) 7-19 mg by ity of 0.5 mg 10:59: mouth [place] tablet 33 twice MD daily. [facility] HYDROcodone Yes 1{tbl} Take 1 [place] -acetaminop 7-19 tablet by ity of hen (NORCO) 10:59: mouth 3 [place] 10 mg-325 33 (three) MD mg per times a [place] tablet day. [facility] apixaban Yes deep venous 5mg Take 5 mg Univers (ELIQUIS) 5 7-19 thrombosis by mouth ity of mg tablet 10:59: twice [place] 33 daily. MD [place] [facility] sendorothea dix hospitaldocus Yes Chronic 2{tbl} Take 2 Univers ate 7-19 pain of tablets by ity of (SENOKOT-S) 00:00: right foot mouth [place] 8.6 mg-50 00 twice MD mg tablet daily. Can Elio dockery get over n the Cancer counter [place] losartan Yes Chronic 25mg Take 1 Univ ers (COZAAR) 25 7-19 pain of tablet (25 ity of mg tablet 00:00: right foot mg) by [place] 00 mouth MD daily. [facility] metoprolol Yes Chronic 25mg Take 1 [facility] [place] tartrate 7-19 pain of tablet (25 it y of (LOPRESSOR) 00:00: right foot mg) by [place] 25 mg 00 mouth MD tablet twice [place] daily. [facility] risperiDONE Yes Chronic 4mg Take 1 U nivers (RisperDAL) 7-19 pain of tablet (4 ity of 4 mg tablet 00:00: right foot mg) by [place] 00 mouth at MD bedtime. [facility] collagenase Yes Chronic Apply [facility] [place] (SANTYL) 7-19 pain of topically ity of ointment 00:00: right foot to [place] 00 affected MD area(s) [place] daily. [facility] polyethylen Yes Chronic 17g Take 17 g Univers e glycol 7-19 pain of by mouth ity of (MIRALAX) 00:00: right foot daily. Can [place] 17 g packet 00 get over MD the [place] counter [facility] senna-docus Yes Chronic 2{tbl} Take 2 Univers ate 7-19 pain of tablets by ity of (SENOKOT-S) 00:00: right foot mouth [place] 8.6 mg-50 00 twice MD mg tablet daily. Can Elio dockery get over n [facility] divalproex Yes Chronic 750mg Take 3 U nivers (DEPAKOTE) 7-19 pain of tablets ity of 250 mg 24 00:00: right foot (750 mg) [place] hr tablet 00 by mouth at [place] bedtime. n [facility] NOVOLIN Yes Type 2 Inject 35 Uni vers 70/30 U-100 7-19 diabetes units ity of INSULIN 100 00:00: mellitus before [place] unit/mL 00 with foot breakfast MD (70-30) ulcer and 20 [place] injection units n before Cancer dinner. Center HOLD if sugar is less than 100 divalproex Yes Chronic 750mg Take 3 U nivers (DEPAKOTE) 7-19 pain of tablets ity of 250 mg 24 00:00: right foot (750 mg) [place] hr tablet 00 [facility] NOVOLIN Yes Type 2 Inject 35 Uni [...] mg tablet 00:00: right foot mg) by [place] 00 [facility] 25mg Take 1 [facility] [place] tartrate 7-19 pain of tablet (25 it y of (LOPRESSOR) 00:00: right foot mg) by [place] 25 mg 00 mouth MD tablet twice [place] daily. n [facility] risperiDONE Yes Chronic 4mg Take 1 U nivers (RisperDAL) 7-19 pain of tablet (4 ity of 4 mg tablet 00:00: right foot mg) by [place] 00 mouth at MD bedtime. [place] [facility] collagenase Yes Chronic Apply Un [place] (SANTYL) 7-19 pain of topically ity of ointment 00:00: right foot to [place] 00 affected MD area(s) [place] daily. [facility] polyethylen Yes Chronic 17g Take 17 g Univers e glycol 7-19 pain of by mouth ity of (MIRALAX) 00:00: right foot daily. Can [place] 17 g packet 00 get over MD the [place] counter [facility] senna-docus Yes Chronic 2{tbl} Take 2 Univers ate 7-19 pain of tablets by ity of (SENOKOT-S) 00:00: right foot mouth [place] 8.6 mg-50 00 twice MD mg tablet daily. Can Elio rso get over n the Cancer counter Center divalproex Yes Chronic 750mg Take 3 U nivers (DEPAKOTE) 7-19 pain of tablets ity of 250 mg 24 00:00: right foot (750 mg) [place] hr tablet 00 by mouth MD at [place] bedtime. n Cancer [place] NOVOLIN Yes Type 2 Inject 35 Uni [...] [place] 00 mouth MD daily. [place] [facility] [place] metoprolol Yes Chronic 25mg Take 1 [facility] [place] tartrate 7-19 pain of tablet (25 it y of (LOPRESSOR) 00:00: right foot mg) by [place] 25 mg 00 mouth MD tablet twice [place] daily. n Cancer [place] risperiDONE Yes Chronic 4mg Take 1 U nivers (RisperDAL) 7-19 pain of tablet (4 ity of 4 mg tablet 00:00: right foot mg) by [place] 00 mouth at MD bedtime. [place] Cancer [place] collagenase Yes Chronic Apply [facility] [place] (SANTYL) 7-19 pain of topically ity of ointment 00:00: right foot to [place] 00 affected MD area(s) [place] daily. n Cancer [place] polyethylen Yes Chronic 17g Take 17 g Univers e glycol 7-19 pain of by mouth ity of (MIRALAX) 00:00: right foot daily. Can [place] 17 g packet 00 get over MD the [place] counter Cancer [place] senna-docus Yes Chronic 2{tbl} Take 2 Univers ate 7-19 pain of tablets by ity of (SENOKOT-S) 00:00: right foot mouth [place] 8.6 mg-50 00 twice MD mg tablet daily. Can Elio rso get over n the Cancer counter [place] divalproex Yes Chronic 750mg Take 3 U nivers (DEPAKOTE) 7-19 pain of tablets ity of 250 mg 24 00:00: right foot (750 mg) [place] hr tablet 00 by mouth MD at Anderso bedtime. [facility] NOVOLIN Yes Type 2 Inject 35 Uni [...] mg) by [place] 00 mouth MD daily. [facility] metoprolol Yes Chronic 25mg Take 1 Un urbano tartrate 7-19 pain of tablet (25 it y of (LOPRESSOR) 00:00: right foot mg) by [place] 25 mg 00 mouth MD tablet twice Anderso daily. [facility] risperiDONE Yes Chronic 4mg Take 1 U nivers (RisperDAL) 7-19 pain of tablet (4 ity of 4 mg tablet 00:00: right foot mg) by [place] 00 mouth at MD bedtime. [facility] collagenase Yes Chronic Apply Un urbano (SANTYL) 7-19 pain of topically ity of ointment 00:00: right foot to [place] as 00 affected MD area(s) Anders daily. [facility] polyethylen Yes Chronic 17g Take 17 g Univers e glycol 7-19 pain of by mouth ity of (MIRALAX) 00:00: right foot daily. Can [place] 17 g packet 00 get over [facility] senna-docus Yes Chronic 2{tbl} Take 2 Univers ate 7-19 pain of tablets by ity of (SENOKOT-S) 00:00: right foot mouth [place] 8.6 mg-50 00 twice MD mg tablet daily. Can Elio rso get over n the [facility] divalproex Yes Chronic 750mg Take 3 U nivers (DEPAKOTE) 7-19 pain of tablets ity of 250 mg 24 00:00: right foot (750 mg) [place] hr tablet 00 by mouth MD at Anderso bedtime. [facility] NOVOLIN Yes Type 2 Inject 35 Uni [...] mg tablet 00:00: right foot mg) by [place] 00 mouth MD daily. [facility] metoprolol Yes Chronic 25mg Take 1 Un urbano tartrate 7-19 pain of tablet (25 it y of (LOPRESSOR) 00:00: right foot mg) by [place] 25 mg 00 mouth MD tablet twice Anderso daily. n Cancer [place] risperiDONE Yes Chronic 4mg Take 1 U nivers (RisperDAL) 7-19 pain of tablet (4 ity of 4 mg tablet 00:00: right foot mg) by [place] 00 mouth at MD bedtime. [facility] collagenase Yes Chronic Apply Un urbano (SANTYL) 7-19 pain of topically ity of ointment 00:00: right foot to [place] as 00 affected MD area(s) Anderso daily. [facility] polyethylen Yes Chronic 17g Take 17 g Univers e glycol 7-19 pain of by mouth ity of (MIRALAX) 00:00: right foot daily. Can [place] 17 g packet 00 get over MD the Anderso counter n Cancer [facility] methocarbam Yes Chronic 500mg Take 1 Univers ol 7-18 pain tablet ity of (ROBAXIN) 00:00: (500 mg[place] 500 mg 00 by mouth MD tablet every 8 Anderso (eight) n hours. [facility] [place] methocarbam Yes Chronic 500mg Take 1 Univers [...] tablet every 8 Anderso (eight) n hours. [facility] methocarbam Yes Chronic 500mg Take 1 Univers ol 7-18 pain tablet ity of (ROBAXIN) 00:00: (500 mg[place] 500 mg 00 by mouth MD tablet every 8 Anderso (eight) n hours. [facility] methsharp [facility] Yes Chronic 500mg Take 1 Univers ol 7-18 pain tablet ity of (ROBAXIN) 00:00: (500 mg[place] 500 mg 00 by mouth MD tablet every 8 Anderso (eight) n hours. [facility] Victoza Victoza Yes Sylvain Inject 1.8 C ommon Dietrich mg/day [facility] Albuterol Albuterol Yes Sylvain 1 puff as Common Sulfate HFA Sulfate HFA Dietrich needed [facility] Duloxetine Duloxetine Yes Sylvain 1 capsule Common HCl HCl Dietrich [facility] Clonazepam Clonazepam Yes Sylvain 1 tablet Common Dietrich at bedtime [facility] NovoLIN NovoLIN Yes Sylvain Inject 65 Co mmon 70/30 70/30 Dietrich units [facility] FlexPen FlexPen [facility] Tramadol Tramadol Yes Sylvain 1 tablet C ommon HCl HCl Dietrich as needed [facility] Hydrocodone Hydrocodone Yes Sylvain 1 tablet Common -Acetaminop -Acetaminop Dietrich as needed [facility] hen hen [facility] Eliquis Eliquis Yes Sylvain TAKE 1 Commo n Dietrich TABLET BY [facility] MOUTH [facility] TWICE [facility] Benztropine Benztropine Yes Sylvain 1 tablet Common Mesylate Mesylate Dietrich at bedtime [facility] Amphetamine Amphetamine Yes Sylvain 1 tablet Common -Dextroamph -Dextroamph Dietrich [facility] etamine etamine [facility] Risperidone Risperidone Yes Sylvain 1 tablet Common Dietrich [facility] Metoprolol Metoprolol Yes Sylvain 1 tablet Common Tartrate Tartrate Dietrich with food S pirit - [facility] Losartan Losartan Yes Sylvain 1 tablet C ommon Potassium Potassium Dietrich [facility] Divalproex Divalproex Yes Sylvain 1 tablet Common Sodium ER Sodium ER Dietrich Spir [facility] BusPIRone BusPIRone Yes Sylvain 1 tablet Common HCl HCl Dietrich [facility] Pen [place] Pen [place] Yes Sylvain N/s Common Dietrich [facility] Atorvastati Atorvastati Yes Sylvain 1 tablet Common n Calcium n Calcium Dietrich Spir [facility] Advair Advair Yes Sylvain 1 puff Common Diskus Diskus [facility] True Metrix True Metrix Yes Sylvain USE TO Common Blood Blood Dietrich TEST BLOOD Spirit Glucose Glucose SUGAR 1-2 - CH I Test Test TIMES St EVERY DAY [facility] NovoLIN NovoLIN Yes Sylvain INJECT Commo n 70/30 70/30 Dietrich SUBQUTANEO Spirit FlexPen FlexPen USLY 65 - CHI UNITS [facility] TWICE [facility] UltiCare UltiCare Yes Sylvain USE ONE Co mmon Micro Pen Micro Pen Dietrich NEEDLE Sp kwame [place] THREE - CHI TIMES St DAILY WITH [facility] NOVOLIN FLEXPEN Immunizations Ordered Filled Immunization Date Status Comments [facility] e Immunization Name Name SARS-COV-2 COVID-19 2021-04-20 Completed Unive rsity of MODERNA VACCINE 00:00:00 [facility] SARS-COV-2 COVID-19 2021-04-20 Completed Unive rsity of MODERNA VACCINE 00:00:00 [facility] SARS-COV-2 COVID-19 2021-04-20 Completed Unive rsity of MODERNA VACCINE 00:00:00 [facility] SARS-COV-2 COVID-19 2021-04-20 Completed Unive rsity of MODERNA VACCINE 00:00:00 [facility] SARS-COV-2 COVID-19 2021-04-20 Completed Unive rsity of MODERNA VACCINE 00:00:00 [facility] SARS-COV-2 COVID-19 2021-04-20 Completed Unive rsity of [...] Completed Unive rsity of MODERNA VACCINE 00:00:00 [facility] ical Branch Pneumococcal 13 2019-07-12 Completed Universit y of Conjugate, PCV13 00:00:00 [place] Me dical (Prevnar 13) Branch Pneumococcal 13 2019-07-12 Completed Universit y of Conjugate, PCV13 00:00:00 [facility] dical (Prevnar 13) Branch Pneumococcal 13 2019-07-12 Completed Universit y of Conjugate, PCV13 00:00:00 [place] Me dical (Prevnar 13) Branch Pneumococcal 13 2019-07-12 Completed Universit y of Conjugate, PCV13 00:00:00 [place] Me dical (Prevnar 13) Branch Pneumococcal 13 2019-07-12 Completed Universit y of Conjugate, PCV13 00:00:00 [place] Me dical (Prevnar 13) Branch Pneumococcal 13 2019-07-12 Completed Universit y of Conjugate, PCV13 00:00:00 [facility] dical (Prevnar 13) Branch Pneumococcal 13 2019-07-12 Completed Universit y of Conjugate, PCV13 00:00:00 [place] Me dical (Prevnar 13) Branch Pneumococcal 13 2019-05-25 Completed Universit y of Conjugate, PCV13 00:00:00 [facility] dical (Prevnar 13) Branch Pneumococcal 13 2019-05-25 Completed Universit y of Conjugate, PCV13 00:00:00 [place] Me dical (Prevnar 13) Branch Pneumococcal 13 2019-05-25 Completed Universit y of Conjugate, PCV13 00:00:00 [facility] dical (Prevnar 13) Branch Pneumococcal 13 2019-05-25 Completed Universit y of Conjugate, PCV13 00:00:00 [place] Me dical (Prevnar 13) Branch Pneumococcal 13 2019-05-25 Completed Universit y of Conjugate, PCV13 00:00:00 [facility] dical (Prevnar 13) Branch Pneumococcal 13 2019-05-25 Completed Universit y of Conjugate, PCV13 00:00:00 [place] Me dical (Prevnar 13) Branch Pneumococcal 13 2019-05-25 Completed Universit y of Conjugate, PCV13 00:00:00 [facility] dical (Prevnar 13) Branch Vital Signs Vital Name Observation Time Observation Value Comments Source Diastolic blood 2021-12-24 22:01:00 79 mm[Hg] Unive rsity of pressure [place] [facility] Heart rate 2021-12-24 22:01:00 89 /min [facility] [place] [facility] Body temperature 2021-12-24 22:01:00 36.89 [facility] [place] [facility] Respiratory rate 2021-12-24 22:01:00 18 /min [facility] [place] [facility] Body height 2021-12-24 22:01:00 182.9 cm [facility] [place] [facility] Body weight 2021-12-24 22:01:00 105.235 kg [facility] [place] [facility] BMI 2021-12-24 22:01:00 31.46 kg/m2 [facility] [place] [facility] Oxygen saturation in 2021-12-24 22:01:00 98 /min University of Arterial blood by [facility] Pulse oximetry Branch Systolic blood 2021-12-24 22:01:00 172 mm[Hg] Univer sity of pressure [place] [facility] [place] Systolic blood 2021-11-19 19:09:00 174 mm[Hg] Univer sity of pressure [place] [facility] Diastolic blood 2021-11-19 19:09:00 91 mm[Hg] [facility] [place] Heart rate 2021-11-19 19:00:00 80 /min [facility]i ty [facility] [place] [facility] Body weight 2021-11-19 19:00:00 104.962 kg [facility] [place] [facility] BMI 2021-11-19 19:00:00 32.27 kg/m2 [facility]i ty [facility] [place] [facility] Oxygen saturation in 2021-11-19 19:00:00 97 /min University of Arterial blood by [facility] Pulse oximetry Branch Procedures Procedure Date / Time Performed Performing Clinician Sour e COMP. METABOLIC PANEL 2021-12-24 22:19:00 Kelvin Darby [facility] ([id number]) Medical Branch CBC WITH DIFF 2021-12-24 22:19:00 Kelvin Darby [place] [facility] EXTERNAL PROVIDER 2021-12-06 05:01:00 Doctor Unassigned, No [facility] HOME HEALTH - OTHER 2021-11-23 05:01:00 Doctor Unassigned, No [facility] [place] Plan of Care Planned Activity Planned Date [...] (#1)] Center Future Scheduled 2021-03-09 [facility] Test 00:00:00 Seasonal Mar to August (>/= 19 yrs) [code = IMM Influenza Seasonal Mar to August (>/= 19 yrs)] Future Scheduled 2011 Screening for [facility] Test 00:00:00 malignant neoplasm of colon (procedure) [code = 244608537] Future Scheduled 1973 COVID-19 Vaccine (1) [facility] Health Test 00:00:00 [code = COVID-19 Vaccine (1)] Encounters Start End Encounter Admission Attending Care Care Encounter Source Date/Time Date/Time Type Type Clinicians Facility Department ID 2021-10-22 Outpatient MARLENY Dietrich [facility] [id number] Common 14:35:01 [facility] 2021-07-05 Outpatient 3 [place] [id number] ENCPL 10:37:17 Violetta 0918 2021-07-05 Outpatient 3 [place] [id number] ENCPL 10:35:19 Violetta 0914 2021-07-05 Outpatient 3 [id number] ENCPL REF ENCPL 10:33:41 [id number] 2021-07-04 Outpatient MIKY DietrichMARVA [facility] [id number] Common 12:23:16 Sylvain [id number] [facility] 2021-07-04 Outpatient Dietrich, STLMLC [facility] Common 11:58:41 Sylvain [id number] [facility] 2021-07-04 Outpatient Dietrich, STLMLC [facility] Common 11:58:34 Sylvain [id number] [facility] 2021-07-04 Outpatient Dietrich, STLMLC [facility] Common 11:54:24 Sylvain [id number] [facility] 2021-07-04 Outpatient Dietrich, STLMLC [facility] Common 11:24:48 Sylvain [id number] [facility] 2021-07-04 Outpatient Dietrich, STLMLC [facility] Common 11:24:36 Sylvain [id number] [facility] 2021-03-20 Outpatient [id number] Memoria 10:39:01 [id number]-3972- B l -B42Y-56Q D-54GGAMZ2R 44D-77CAFE Raul EPUD1HEM2 AF2 A1DAF2 2021-03-13 Outpatient [id number] Memoria 08:49:42 [id number] 166-4D51- 8 l -8885-75E 5-19E3U2N7L 885-75E2A2 Raul [id number] E94 F6FE94 2021-02-27 Outpatient [id number] Memoria 16:26:17 [id number] 34-41DF-A62 R39-15MN- A l -K69Z-1VN B-2HW64ZKDP 62B-5CF45F Raul 22PJRMF69 E49 CCBE49 2021-02-13 Outpatient [id number] Memoria 13:34:27 FDA5-4DF8 A5-5MM9-SL0 DA5-4DF8- A l -JY6P-36M F-31O27F6W6 S5C-80W66B Raul 06V4M1F1P C9E 9A6C9E 2021-02-05 Outpatient [id number] Memoria 13:02:31 66J0-7YI4 E0-5UP1-3FZ 1D9-6CK5- 8 l -9ZK8-6M9 7-2S1A6LI6F BD7-8F3D5B Raul F8DV8E6Q8 9A8 B3F9A8 2021-01-31 Outpatient [id number] Memoria 14:21:44 71EF-4A97 EF-7B97-D1D 1EF-4A97- A l -A7B7-F25 2-[id number] 0E3-R3156I Raul 28F36MEGL ABB 67DABB 2021-01-29 Outpatient [id number] Memoria 07:59:59 EAF3-4402 F3-4402-989 AF3-4402- 9 l -9894-E93 4-J294K751G 894-E932E0 Raul [id number] 73E 11E73E 2021-01-26 [facility] [id number] Memoria 11:30:20 83S6-1V1Q D3-9V3Y-M90 7V9-5S1R- A l -B483-4M2 0-2B5X37B21 760-9F0F01 Raul [id number] A92 B18A92 2021-01-18 [facility] [id number] Memoria 19:23:47 [id number] 91-4470-100 515-9049- 9 l -904F-E96 F-W03BTD367 04F-E96FEA Raul KHH219QF2 FF0 071FF0 2021-01-17 Outpatient [id number] [id number] Memoria 15:43:09 [id number] B4-4358-860 7K6-0912- 8 l -8608-A37 8-I95B19W6T 608-A37F06 Raul A70S8Y52H 43A F6C43A 2021-01-11 Outpatient [id number] Memoria 16:20:54 [id number] 42-4648-8F1 E05-1610- 8 l -1R1M-FS3 A-WU1D694AU D2E-IX5F23 Raul N069XUD4V A7A 0AAA7A 2020-07-15 In[address] EM Marina [facility] [id number] [facility] 14:49:00 an, [address] [facility] 2020-07-13 Inpatient HCACL MARIA D [id number] [facility] 14:41:00 [id number] Psychiatric 2022-01-23 2022-01-23 Outpatient LUIS HANSEN [facility] [id number] Univers 14:00:00 14:00:00 LUIS LAM [facility] 2022-01-08 2022-01-08 Outpatient R DEMOND [facility] [id number] Univers 13:40:00 13:40:00 MARYLU [facility] 2021-12-24 2021-12-24 Emergency X [facility] ERT [id number] Univers 16:57:00 20:57:00 KELVIN [facility] 2021-12-24 2021-12-24 Emergency [facility] [id number] Univers 16:57:00 20:57:00 Kelvin MARTIN [id number] i Jazlyn 4.2.7.2.686 [facility] [id number] [address] 2021-12-24 2021-12-24 Telephone [facility] [id number] Univers 00:00:00 00:00:00 Marylu Alicia MARIO [id number] ity of [facility] 4.[place].2.686 [place] PROF[place] [id number] [address] 2021-12-18 2021-12-18 [place]do [place], [facility] [id number] [id number] Univers 00:00:00 00:00:00 Marylu A MARIO [id number] ity of [facility] [id number] [place] [id number] [address] 2021-12-06 2021-12-06 Orders Doctor NAINA [id number] [id number] Univers 00:00:00 00:00:00 Only Unassigned, MARIELOS [id number] ity of [place] [facility] 4.2.7.2.686 [place] as [phone] [address] 2021-11-26 2021-11-26 Outpatient R [facility] [id number] Univers 13:30:00 13:30:00 ity of [facility] 2021-11-23 2021-11-23 Orders Doctor NAINA [id number] Univers 00:00:00 00:00:00 Only Unassigned, MARIELOS [id number] ity of [place] [facility] 4.2.7.2.686 [place] as [id number] [address] 2021-11-19 2021-11-22 [facility] [id number] Univers 18:34:00 15:35:00 JENNIFER allan of [facility] 2021-11-19 2021-11-19 Office [facility] 1.2.840.114 [id number] Univers 14:00:00 15:01:22 Visit [facility] [id number] it y of [facility] [id number] [place] as RIANA?BLEA [phone] [address] OFFICE [facility] 2021-11-19 2021-11-19 [facility] [id number] Univers 14:00:00 15:01:22 SAPPHIRE [facility] 2021-09-21 2021-09-21 Outpatient R JOHN REYES [facility] [id number] Univers 14:30:00 15:28:52 JOHN REYES [facility] 2021-09-14 2021-09-14 [id number] Univers 14:00:00 14:00:00 LUCIA christopher [facility] 2021-06-14 2021-06-14 Outpatient R YOAV [facility] [id number] Univers 09:30:00 09:30:00 SRINIVAS [facility] 2021-05-23 2021-05-23 Outpatient R [facility] [id number] Univers 12:30:00 13:40:00 YOGESH [facility] 2021-05-14 2021-05-14 Outpatient R BIANKA [facility] [id number] Univers 14:30:00 14:30:00 MARTITA [facility] 2021-04-24 2021-04-24 [id number] Univers 16:00:00 16:00:00 LUCIA christopher [facility] 2021-03-13 2021-03-13 Outpatient R GREGG [facility] [id number] Univers 09:15:00 10:16:13 UMA [facility] 2021-02-20 2021-02-20 [facility] [id number] Univers 15:30:00 16:29:01 LUCIA, [facility] 2021-02-05 2021-02-05 Outpatient R [facility] [id number] Univers 13:00:00 15:10:18 MARYLU thomaschristopher [facility] 2021-01-17 2021-01-17 Telephone [facility] [id number] 00:00:00 00:00:00 Marylu Alicia Mairo [id number] [place] [id number] Professio [phone] [facility] 044 [facility] 2021-01-10 2021-01-10 Refill [facility] 1.2.840.114 [id number] 00:00:00 00:00:00 Marylu A Mario [id number] [place] [id number] Professio [id number] [address] 2021-01-09 2021-01-09 Outpatient Chi [facility] [id number] Univers 13:30:00 13:30:00 BRIANA allan [facility] 2020-12-28 2020-12-28 Office [place], [facility] 1.2.840.114 [id number] 13:00:56 15:02:32 Visit Marylu Ravin Mario [id number] [place] [id number] Professio [phone] [address] 2020-04-04 2020-04-04 Outpatient STLMLC STLMLC [id number] Common 00:00:00 00:00:00 [facility] 2020-04-03 2020-04-03 Outpatient STLMLC STLMLC [id number] Common 00:00:00 00:00:00 [facility] 2020-04-03 2020-04-03 Outpatient STLMLC STLMLC [id number] Common 00:00:00 00:00:00 [facility] 2020-03-21 2020-03-21 Outpatient STLMLC STLMLC [id number] Common 00:00:00 00:00:00 [facility] 2020-03-08 2020-03-08 Outpatient STLMLC STLMLC [id number] Common 00:00:00 00:00:00 [facility] 2020-03-03 2020-03-03 Outpatient STLMLC STLMLC [id number] Common 00:00:00 00:00:00 [facility] 2020-03-01 2020-03-01 Outpatient STLMLC STLMLC [id number] Common 00:00:00 00:00:00 [facility] 2020-02-22 2020-02-22 Outpatient STLMLC STLMLC [id number] Common 00:00:00 00:00:00 [facility] 2020-01-28 2020-01-28 [facility] [id number] Common 08:27:00 08:27:[address] [facility] 2020-01-26 2020-01-26 Out[facility] [id number] Common 11:04:00 11:04:[address] [facility] 2020-01-05 2020-01-05 Out[facility] [id number] Common 16:30:00 16:30:[address] [facility] 2020-01-03 2020-01-03 Out[facility] [id number] Common 10:59:00 10:59:[address] [facility] 2019-11-24 2019-11-24 Outpatient [facility] [id number] Common 11:16:00 11:16:00 [address] [facility] [address] [facility] 2019-11-24 2019-11-24 Outpatient [facility] [id number] Common 11:15:00 11:15:[address] [facility] 2019-11-11 2019-11-11 Outpatient [facility] [id number] Common 09:41:00 09:41:[address] [facility] 2019-11-10 2019-11-10 Outpatient [facility] [id number] Common 10:30:00 10:30:[address] [facility] 2019-03-27 2019-03-[address] [facility] [id number] [place] 11:00:00 11:00:00 Health 2019-03-27 2019-03-[address] [facility] [id number] [place] 10:55:25 10:55:25 Health 2019-03-27 2019-03-27 Emergency [facility] [id number] [place] 08:02:06 08:02:06 Health 2019-03-27 2019-03-[address] [facility] [id number] [place] 00:00:00 00:00:00 Health Results Test Description Test Time Test Comments Results Result Comments Source GLUBED 2020-07-17 17:26:00 Test Item Value Reference Range Interpretation Comme nts GLUBED (test code = GLUBED) 246 MG/DL 70-110 H Performed by certified 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 [facility] [id number] 13:12:00 Test Item Value Reference Range Interpretation Comments GLUBED (test code = 233 MG/DL 70-110 H Performe d by certified GLUBED) 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 [facility] [id number] 08:24:00 Test Item Value Reference Range Interpretation Comments GLUBED (test code = 157 MG/DL 70-110 H Performe d by certified GLUBED) 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 [facility] [id number] 06:46:00 Test Item Value Reference Range Interpretation Comments GLUBED (test code = 159 MG/DL 70-110 H Performe d by certified GLUBED) 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 [facility] [id number] 20:20:00 Test Item Value Reference Range Interpretation Comments GLUBED (test code = 174 MG/DL 70-110 H Performe d by certified GLUBED) 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 [facility] [id number] 17:34:00 Test Item Value Reference Range Interpretation Comments GLUBED (test code = 101 MG/DL 70-110 N Performe d by certified GLUBED) 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 [facility] [id number] 12:09:00 Test Item Value Reference Range Interpretation Comments GLUBED (test code = 176 MG/DL 70-110 H Performe d by certified GLUBED) 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 [facility] BASIC METABOLIC [id number] 11:39:00 Test Item Value Reference Range Interpretation [...] 8.3 mg/dL 8.0-10.5 N CA) CBC W/AUTO [id number] 11:24:00 Test Item Value Reference Range Interpretation [...] DIFF REQUIRED (test code NO = MDIFF) [id number] 06:50:00 Test Item Value Reference Range Interpretation Comments GLUBED (test code = 192 MG/DL 70-110 H Performe d by certified GLUBED) 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 [facility] [id number] 19:48:00 Test Item Value Reference Range Interpretation Comments GLUBED (test code = 187 MG/DL 70-110 H Performe d by certified GLUBED) 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 [facility] [id number] 17:18:00 Test Item Value Reference Range Interpretation Comments GLUBED (test code = 128 MG/DL 70-110 H Performe d by certified GLUBED) 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 [facility] C REACTIVE [id number] 13:50:00 Test Item Value Reference Range Interpretation Comments C REACTIVE PROTEIN (test code = CRP) 8.0 mg/L <10.0 N BASIC METABOLIC [id number] 13:50:00 Test Item Value Reference Range Interpretation [...] 8.7 mg/dL 8.0-10.5 N CA) CBC W/AUTO [id number] 13:19:00 Test Item Value Reference Range Interpretation [...] REQUIRED (test code = MDIFF) CBC W/AUTO [id number] 13:19:00 Test Item Value Reference Range Interpretation [...] DIFF REQUIRED (test code NO = MDIFF) [id number] 12:05:00 Test Item Value Reference Range Interpretation Comments GLUBED (test code = 209 MG/DL 70-110 H Performe d by certified GLUBED) 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 [facility] [id number] 08:16:00 Test Item Value Reference Range Interpretation Comments GLUBED (test code = 208 MG/DL 70-110 H Performe d by certified GLUBED) 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 [facility] [id number] 20:50:00 Test Item Value Reference Range Interpretation Comments GLUBED (test code = 232 MG/DL 70-110 H Performe d by certified GLUBED) 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 [facility] [id number] 18:45:00 Test Item Value Reference Range Interpretation Comments GLUBED (test code = 146 MG/DL 70-110 H Performe d by certified GLUBED) 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 [facility] - DUP LE ART [id number] 17:18:00 [facility] 1960 Sex: M Name: MARCOS RAMOS [facility] : 1960 Age/S: 60 / M [address] [place] [address] Blvd Unit #: [id number] Loc: BILLIE Chu [address] Phys: Mark 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 FINDINGS: RIGHT LOWER EXTREMITY: PHLEBOTOMY SPECIALIST: Patent, triphasic waveform. SFA: Patent, triphasic waveform. Popliteal: Patent, triphasic waveform. Posterior tibial: Patent, triphasic waveform.Dorsalis pedis: Patent, triphasic waveform. LEFT LOWER EXTREMITY: PHLEBOTOMY SPECIALIST: Patent, triphasic waveform. SFA: Patent, biphasic waveform. Popliteal: Patent, triphasic waveform. Posterior tibial: Patent, biphasic waveform. Dorsalis pedis: Patent, triphasic waveform. IMPRESSION: Patent bilateral lower extremity arterial vasculature with multiphasic waveforms. SL: [id number] at 1718 Reported and signed by: Kuldeep Kuo M.D. PAGE 1 Signed Report (CONTINUED) Name: RICHARDMARCOS C [facility] : 1960 Age/S: 60 / M [address] [place] [address] Blvd Unit #: [id number] Loc: [place] [address] Phys: Mark Alexander NP Acct: [id number] DisDate: Status: ADM IN PHONE #: [phone] Exam Date: 07/14/2020 1655 FAX #: [phone] Reason: bilat foot uclers EXAMS: CPT CODE: [id number] DUP LE ART ABHISHEK [address]75 <Continued> CC: Judah Campuzano MD; Mark Alexander NP Technologist: Sherin Hudson RDMS(AB) Trnscb Date/Time: 07/14/2020 (1718) [email or web address] Orig Print D/T: S: 07/14/2020 (172) Probe: PAGE 2 Signed Report- DUP VEIN [id number] 17:03:00 [facility] MARTINE[facility]Name: MARCOS RAMOS : 1960 Sex: M Name: MARCOS RAMOS [facility] [place] : 1960 Age/S: 60 / M [address] [place] [address] Blvd Unit #: [id number] Loc: [place] [address] Phys: Jocelynn Mehta Acct: [id number] Dis Date: Status: ADM IN PHONE #: [phone] Exam Date: 07/14/20201654 FAX #: [phone] Reason: hx of DVT EXAMS: CPT CODE: [id number] DUP VEIN ABHISHEK 15343 Clinical Indication: History of DVT, bilateral lower extremity pain; Comparison: None TECHNIQUE: Sonographic evaluation of the bilateral lower extremity veins was performedusing high resolution B-mode imaging, along with pulse [...] Porfirio at 1702 hours on 07/14/2020. SL: [id number] at 1703 Reported and signed by: Kuldeep Kuo M.D. CC: Delfino Campuzano MD Technologist: Sherin Hudson RDMS(AB) Trnscb Date/Time: 07/14/2020 (1703) [id number] Orig Print D/T: S: 07/14/2020 (1706) Probe: PAGE 1 Signed [id number] 16:30:00 Test Item Value Reference Range Interpretation [...] APPROPRIATECLIN ICAL EUALUATIONS. 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 Shortness of [...] Thickening of the mid esophagus. Partially imaged upp er abdomen shows few calcified hepatic granulomata. Degenerative changes of the spine. IMPRESSION: 1. No CT angiographic evidence of acute pulmonary embolism. No chronic thrombotic changes. 2. Thickening of the mid esophagus, possibly esophagitis or underlying lesion. Correlate clinically. 3. Moderatecoronary artery calcifications. 4. Evidence of prior granulomatous process. SL: [id number] PAGE 1 Signed Report (CONTINUED) Name: MARCOS RAMOS [facility] : 1960 Age/S: 60 / M [address] [place] [address] Blvd Unit #: [id number] Loc: [place] [address] Phys: Jocelynn Mehta Acct: [id number] Dis Date: Status: ADM IN PHONE #: [phone] Exam Date: 07/14/2020 1553 FAX #: [phone] Reason: rule out PE, Hx of PE EXAMS: CPT CODE: [id number] [place] [address] <Continued> at 1624 Reported and signed by: Aaron Blair CC: Jocelynn Mehta; Judah Campuzano MD Technologist:Mann Fernandez, (R) CTDI: DLP: Trnscb Date/Time: 07/14/2020 (162) [email or web address] Orig Print D/T: S: 07/14/2020 (4401) PAGE 2Signed [id number] 15:20:00 Test Item Value Reference Range Interpretation Comments GLUBED (test code = 177 MG/DL 70-110 H Performe d by certified 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 [facility] LACTIC ACID 2ND [id number] 21:31:00 Test Item Value Reference Range Interpretation Comments LACTIC ACID 2ND REPEAT (test code 1.9 mmol/L 0.4-1.9 N = LACT2) [id number] 21:04:00 Test Item Value Reference Range Interpretation Comments GLUBED (test code = 224 MG/DL 70-110 H Performe d by certified GLUBED) 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 [facility] [id number] 19:23:00 Test Item Value Reference Range Interpretation [...] HGBA1C%) 11.2 %A1C 4.8-6.0 H LACTIC ACID [id number] 19:17:00 Test Item Value Reference Range Interpretation Comments LACTIC ACID REPEAT (test code = 2.3 mmol/l 0.4-1.9 H LACTR) UA RFLX MICR CULT IF [id number] 17:25:00 Test Item Value Reference Range Interpretation [...] culture: RiskForSepsis-no oth srcSpecimen Description: CLEAN CATCHLIPOPROTEIN [id number] 17:03:00 Test Item Value Reference Range Interpretation Comments LIPOPROTEIN LDL 165.8 mg/dL 0-100 H <100 OPTIMAL 100-129 (test code = LDL) NEAR OPTIM AL/ABOVE [id number] HIGH>QD=085 MELCHOR Y HIGH*Guidelines provided by the National Choles terol EducationProket[facility] Adult Treatment Panel III BASIC METABOLIC [id number] 16:44:00 Test Item Value Reference Range Interpretation [...] 8.8 mg/dL 8.0-10.5 N CA) HEPATIC FUNCTION [id number] 16:44:00 Test Item Value Reference Range Interpretation [...] 121 IUnit/L 20-125 N code = ALKP) [id number] 16:44:00 Test Item Value Reference Range Interpretation [...] may masoud y by method. BASIC METABOLIC [id number] 16:41:00 Test Item Value Reference Range Interpretation [...] code = CA) mg/dL 8.0-10.5 HEPATIC FUNCTION [id number] 16:41:00 Test Item Value Reference Range Interpretation Comments TOTAL PROTEIN (test code = PROT) g/dL 6.4-8.2 ALBUMIN (test code = ALB) g/dL 3.4-5.0 BILIRUBIN TOTAL (test code = BILT) mg/dL 0.0-1.0 BILIRUBIN DIRECT (test code = BILD) MG/DL 0.0-0.30 SGOT/AST (test code = AST) IUnit/L 15-37 SGPT/ALT (test code = ALT) IUnit/L 30-65 ALKALINE PHOSPHATASE TOTAL (test IUnit/L 20-125 code = ALKP) [id number] 16:41:00 Test Item Value Reference Range Interpretation [...] results may masoud y by method. 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 Shortness of breath. Comparison: 11/20/2014 chest x-ray FINDINGS: The cardiomediastinal silhouette is normal in size. Faint right basilar pulmonary opacities are present and may be exaggerated by asymmetric elevation of the right hemidiaphragm crowding the bronchovascular markings. Remaining lungs are clear. Costophrenic angles are sharp. No suspicious osseous abnormality is seen. IMPRESSION: Suspected faint right basilar infiltrate. SL: LIZ at 9238 Reported and signed by: Festus Mejia M.D. CC: Jaylene Pal BALL WARPER TENDER Technologist: Meme Banerjee, RT(R); Nikki Coello RT(R) Trndcrd Date/Time/By: 07/13/2020 (177) : By: [email or web address] Orig Print D/T: S: 07/13/2020 (2003) PAGE 1 Signed ReportCBC W/AUTO [id number] 16:28:00 Test Item Value Reference Range Interpretation [...] (test code NO = MDIFF) CBC W/AUTO [id number] 16:27:00 Test Item Value Reference Range Interpretation [...]
[2022-01-13] MEDS ORDERED: NA CHLORIDE 0.9% 1,000 ML ONE (06:09)
[2022-01-13] MEDS ORDERED: FAMOTIDINE 20 MG/2 ML VIAL IV ONE (06:09)
[2022-01-13] MEDS ORDERED: ONDANSETRON 4 MG/2 ML VIAL ONE (06:09)
[2022-01-13] MEDS ORDERED: MORPHINE 4 MG/ML SYR ONE (06:54)
[2022-01-13] MEDS ORDERED: PROMETHAZINE INJ 25 MG/ML AMP ONE (06:54)
--- NOTE | 2022-01-13 07:19 | EDPHYS ---
Physician Documentation [facility] Name: Gasper Fry Age: 61 yrs Sex: Male : 1960 Arrival Date: 01/13/2022 Time: 05:31 Bed 14 Private MD: OLEG Physician Lance Ponce HPI: 01/13 06:07 This 61 yrs old Male presents to ER via EMS with complaints of Abdominal Pain. [facility] 06:07 The patient presents with abdominal pain in the lower abdomen. Onset: The [facility] symptoms/episode began/occurred 1 week(s) ago. The symptoms do not radiate. Associated signs and symptoms: Pertinent positives: nausea, vomiting, and diarrhea, Pertinent negatives: chest pain, diarrhea, dysuria, fever, headache, hematuria, palpitations, shortness of breath, testicular pain, vomiting blood. The symptoms are described as intermittent, vague, waxing/waning. Modifying factors: The symptoms are alleviated by nothing, the symptoms are aggravated by nothing. Severity of pain: At its worst the pain was moderate 2 day(s) ago, in the emergency department the pain is unchanged. The patient has experienced similar episodes in the past, multiple times. The patient has been recently seen at the [facility] Emergency Department, yesterday. Historical: - Allergies: 05:33 Haldol (Anaphylaxis); kl - Home Meds: 05:33 Adderall XR 30 mg Oral cp24 1 cap twice a day [Active]; amlodipine 10 mg tab 1 tab once kl daily [Active]; atorvastatin 40 mg Oral tab 1 tab once daily [Active]; benztropine 0.5 mg Oral tab 1 tab 2 times per day [Active]; Cogentin Oral 0.5 mg twice a day [Active]; Depakote 500 mg Oral TbEC [Active]; Eliquis 5 mg Oral tab 1 tab 2 times per day [Active]; Farxiga 5 mg Oral tab 1 tab once daily [Active]; glipizide 2.5 mg Oral tr24 [Active]; Glucophage Oral [Active]; hydrocodone-acetaminophen 10-325 mg Oral tab 1 tab twice a day [Active]; Klonopin 0.5 mg Oral tab 1 tab 2 times per day [Active]; Lexapro 10 mg Oral tab [Active]; losartan 50 mg Oral tab 1 tab once daily [Active]; metoprolol tartrate 25 mg Oral tab [Active]; isosorbide [Active]; Novolin 70/30 [place] 45 units Sub-Q 45 units twice a day with meals [Active]; Risperdal 4 mg Oral tab 1 tab 2 times per day [Active]; sodium bicarbonate 650 mg Oral tab [Active]; tamsulosin 0.4 mg Oral cap [Active]; tramadol 50 mg Oral tab 1 tab twice a day [Active]; Victoza 2-Reid subcutaneous [Active]; - PMHx: 05:33 ADD/ADHD; Anxiety; Bipolar disorder; Cellulitis; Chronic pain; Congestive heart kl failure; CVA; Diabetes - IDDM; Hypertension; neuropathy; Parkinson's disease; Schizophrenia; Seizures; unstable angina; 05:39 cHRONIC FOOT WOUNDS; kl - Immunization history:: Adult Immunizations not up to date. - Social history:: Smoking status: Patient denies any tobacco usage or history of. ROS: 06:07 Constitutional: Negative for fever, chills, and weight loss, Eyes: Negative for injury, mh7 pain, redness, and discharge, ENT: Negative for injury, pain, and discharge, Neck: Negative for injury, pain, and swelling, Cardiovascular: Negative for chest pain, palpitations, and edema, Respiratory: Negative for shortness of breath, cough, wheezing, and pleuritic chest pain, Back: Negative for injury and pain, : Negative for injury, bleeding, discharge, and swelling, MS/Extremity: Negative for injury and deformity, Skin: Negative for injury, rash, and discoloration, Neuro: Negative for headache, weakness, numbness, tingling, and seizure, Psych: Negative for depression, anxiety, suicide ideation, homicidal ideation, and hallucinations, Allergy/Immunology: Negative for hives, rash, and allergies, Endocrine: Negative for neck swelling, polydipsia, polyuria, polyphagia, and marked weight changes, Hematologic/Lymphatic: Negative for swollen nodes, abnormal bleeding, and unusual bruising. Exam: 06:07 Head/Face: Normocephalic, atraumatic. Eyes: Pupils equal round and reactive to light, mh7 extra-ocular motions intact. Lids and lashes normal. Conjunctiva and sclera are non-icteric and not injected. Cornea within normal limits. Periorbital areas with no swelling, redness, or edema. Neck: Trachea midline, no thyromegaly or masses palpated, and no cervical lymphadenopathy. Supple, full range of motion without nuchal rigidity, or vertebral point tenderness. No Meningismus. Chest/axilla: Normal chest wall appearance and motion. Nontender with no deformity. No lesions are appreciated. Cardiovascular: Regular rate and rhythm with a normal S1 and S2. No gallops, murmurs, or rubs. Normal PMI, no JVD. No pulse deficits. Respiratory: Lungs have equal breath sounds bilaterally, clear to auscultation and percussion. No rales, rhonchi or wheezes noted. No increased work of breathing, no retractions or nasal flaring. 06:07 Back: No spinal tenderness. No costovertebral tenderness. Full range of motion. Skin: Warm, dry with normal turgor. Normal color with no rashes, no lesions, and no evidence of cellulitis. MS/ Extremity: Pulses equal, no cyanosis. Neurovascular intact. Full, normal range of motion. Neuro: Awake and alert, GCS 15, oriented to person, place, time, and situation. Cranial nerves II-XII grossly intact. Motor strength 5/5 in all extremities. Sensory grossly intact. Cerebellar exam normal. Normal gait. Psych: Awake, alert, with orientation to person, place and time. Behavior, mood, and affect are within normal limits. 06:07 Constitutional: The patient appears in no acute distress, alert, awake, uncomfortable. 06:07 Abdomen/GI: Inspection: obese Bowel sounds: normal, in all quadrants, Palpation: mild abdominal tenderness, in the right lower quadrant and left lower quadrant, mass, is not appreciated, rebound tenderness, is not appreciated, voluntary guarding, is not appreciated, involuntary guarding, is not appreciated, no appreciated organomegaly, Indicators: McBurney's point is not tender, Garcia's sign is negative, Rovsing's sign is negative, Obturator sign is negative, Psoas sign is negative, Liver: no appreciated palpable abnormalities, Hernia: not appreciated. 07:20 ECG was reviewed by the Attending Physician. jerome Vital Signs: 05:31 BP 187 / 87; Pulse 84; Resp 16; Temp 98.5(TE); Pulse Ox 98% on R/A; Pain 10/10; kl 05:50 BP 159 / 67; kl 07:44 BP 158 / 82; Pulse 82; Resp 17; Pulse Ox 98% ; ll1 MDM: 06:16 Transition of care: After a detail discussion of the patient's case, care is 7 transferred to Lance Ponce MD. 06:18 Patient medically screened. jerome 07:18 Differential diagnosis: diverticulitis, gastritis, non-specific abd pain, pancreatitis, jerome Peptic Ulcer Disease, urinary tract infection. Data reviewed: vital signs, nurses notes, lab test result(s), EKG. Data interpreted: personal lines advisor: rate is 84 beats/min, rhythm is regular, Pulse oximetry: on room air is 98 %. Test interpretation: by ED physician or midlevel provider: ECG. Counseling: I had a detailed discussion with the patient and/or guardian regarding: the historical points, exam findings, and any diagnostic results supporting the discharge/admit diagnosis, lab results, radiology results, the need for outpatient follow up, for definitive care, a family practitioner, a transformation specialist. 01/13 05:58 Order name: IV Saline Lock; Complete Time: 07:44 mh7 01/13 05:58 Order name: EKG; Complete Time: 05:59 mh7 01/13 05:58 Order name: EKG - Nurse/Tech; Complete Time: 06:26 mh7 EC:20 Rate is 80 beats/min. Rhythm is regular. QRS [place] is Normal. [place] interval is normal. QRS jerome interval is normal. QT interval is prolonged at 484 msec. No Q waves. T waves are Normal. No ST changes noted. Clinical impression: NSR w/ Non-specific ST/T Changes and No evidence of ischemia. Interpreted by me. Reviewed by me. Administered Medications: 06:26 Drug: NS 0.9% 1000 ml Route: IV; Rate: 1 bolus; Site: right antecubital; kl 07:44 Follow up: Response: No adverse reaction; IV Status: Completed infusion; IV Intake: ll1 600ml 06:26 Drug: Pepcid (famotidine) 20 mg Route: IVP; Site: right antecubital; kl 07:44 Follow up: Response: No adverse reaction ll1 06:29 Drug: Zofran (Ondansetron) 4 mg Route: IVP; Site: right antecubital; kl 07:43 Follow up: Response: No adverse reaction ll1 06:53 Drug: Phenergan (promethazine) 12.5 mg Route: IVP; Site: right antecubital; kl 07:43 Follow up: Response: No adverse reaction ll1 06:54 Drug: morphine 4 mg Route: IVP; Infused Over: 4 mins; Site: right antecubital; kl 07:43 Follow up: Response: No adverse reaction; Pain is decreased; RASS: Alert and Calm (0) ll1 Disposition Summary: 01/13/22 07:19 Discharge Ordered Location: Home jerome Problem: new jerome Symptoms: have improved jerome Condition: Stable jerome Diagnosis - Abdominal pain, unspecified jerome - Bipolar disorder, unspecified jerome - Chronic kidney disease, unspecified jerome Followup: jerome - With: Private Physician - When: 2 - 3 days - Reason: Recheck today's complaints, Continuance of care, Re-evaluation by your physician Followup: jerome - With: Bryan Lara MD - When: 2 - 3 days - Reason: Recheck today's complaints, Continuance of care, Re-evaluation by your physician Discharge Instructions: - Discharge Summary Sheet jerome - Abdominal Pain, Adult jerome - Chronic Kidney Disease, Adult, Anmd-dw-Rdjc jerome - Managing Bipolar Disorder jerome Forms: - Medication Reconciliation Form jerome - Thank You Letter jerome - Antibiotic Education jerome - Prescription Opioid Use jerome Signatures: Dispatcher [employer] Gisele Quintanilla RN RN kl Anderson, Corey, MD MD cha Holmes, Maurice, MD MD mh7 Lewis, Lynsay RN ll1 Corrections: (The following items were deleted from the chart) 07:44 05:58 Labs collected and sent ordered. [facility]
--- NOTE | 2022-01-13 07:19 | ER ---
Nurse's Notes [facility] Name: Gasper Fry Age: 61 yrs Sex: Male : 1960 Arrival Date: 01/13/2022 Time: 05:31 Bed 14 Private MD: Diagnosis: Abdominal pain, unspecified;Bipolar disorder, unspecified;Chronic kidney disease, unspecified Presentation: 01/13 05:31 Chief complaint: Patient states: nausea vomiting and abdominal pain seen yesterday for same complaints reports anti emetic is not working. Coronavirus screen: Vaccine status: Patient reports receiving the 2nd dose of the covid vaccine. Ebola Screen: Patient negative for fever greater than or equal to 101.5 degrees Fahrenheit, and additional compatible Ebola Virus Disease symptoms. Initial Sepsis Screen: Does the patient meet any 2 criteria? No. Patient's initial sepsis screen is negative. Does the patient have a suspected source of infection? No. Patient's initial sepsis screen is negative. Risk Assessment: Do you want to hurt yourself or someone else? Patient reports no desire to harm self or others. Onset of symptoms was January 12, 2022. 05:31 Method Of Arrival: EMS: [facility] 05:31 Acuity: DARREL 3 06:54 Note PT REFUSING LAB DRAW AT THIS TIME. Triage Assessment: 05:36 General: Appears in no apparent distress. unkempt, Behavior is calm, cooperative, flat. Pain: Complains of pain in abdomen Pain currently is 10 out of 10 on a pain scale. EENT: Eyes left eye blindness. Neuro: No deficits noted. Cox Agitation-Sedation Scale (RASS): 0 - Alert and Calm. Cardiovascular: No deficits noted. Heart tones S1 S2. Respiratory: No deficits noted. Airway is patent Trachea midline Respiratory effort is even, unlabored. GI: Abdomen is obese, Bowel sounds present X 4 quads. Abd is soft Abdomen is tender to palpation X 4 quads. Reports vomiting, since yesterday reports 4 episodes. : No deficits noted. No signs and/or symptoms were reported regarding the genitourinary system. Derm: dressing to bilateral feet. Historical: - Allergies: 05:33 Haldol (Anaphylaxis); kl - Home Meds: 05:33 Adderall XR 30 mg Oral cp24 1 cap twice a day [Active]; amlodipine 10 mg tab 1 tab once kl daily [Active]; atorvastatin 40 mg Oral tab 1 tab once daily [Active]; benztropine 0.5 mg Oral tab 1 tab 2 times per day [Active]; Cogentin Oral 0.5 mg twice a day [Active]; Depakote 500 mg Oral TbEC [Active]; Eliquis 5 mg Oral tab 1 tab 2 times per day [Active]; Farxiga 5 mg Oral tab 1 tab once daily [Active]; glipizide 2.5 mg Oral tr24 [Active]; Glucophage Oral [Active]; hydrocodone-acetaminophen 10-325 mg Oral tab 1 tab twice a day [Active]; Klonopin 0.5 mg Oral tab 1 tab 2 times per day [Active]; Lexapro 10 mg Oral tab [Active]; losartan 50 mg Oral tab 1 tab once daily [Active]; metoprolol tartrate 25 mg Oral tab [Active]; isosorbide [Active]; Novolin 70/30 [place] 45 units Sub-Q 45 units twice a day with meals [Active]; Risperdal 4 mg Oral tab 1 tab 2 times per day [Active]; sodium bicarbonate 650 mg Oral tab [Active]; tamsulosin 0.4 mg Oral cap [Active]; tramadol 50 mg Oral tab 1 tab twice a day [Active]; Victoza 2-Reid subcutaneous [Active]; - PMHx: 05:33 ADD/ADHD; Anxiety; Bipolar disorder; Cellulitis; Chronic pain; Congestive heart kl failure; CVA; Diabetes - IDDM; Hypertension; neuropathy; Parkinson's disease; Schizophrenia; Seizures; unstable angina; 05:39 cHRONIC FOOT WOUNDS; kl - Immunization history:: Adult Immunizations not up to date. - Social history:: Smoking status: Patient denies any tobacco usage or history of. Screenin:40 Abuse screen: Denies threats or abuse. Nutritional screening: No deficits noted. Tuberculosis screening: No symptoms or risk factors identified. Fall Risk None identified. Assessment: 06:28 Reassessment: Patient states symptoms have not improved. 07:40 Reassessment: No changes from previously documented assessment. Patient and/or family ll1 updated on plan of care and expected duration. Pain level reassessed. Vital Signs: 05:31 BP 187 / 87; Pulse 84; Resp 16; Temp 98.5(TE); Pulse Ox 98% on R/A; Pain 10/10; kl 05:50 BP 159 / 67; kl 07:44 BP 158 / 82; Pulse 82; Resp 17; Pulse Ox 98% ; ll1 ED Course: 05:31 Patient arrived in ED. kl 05:33 Triage completed. kl 05:40 Patient has correct armband on for positive identification. Pulse ox on. NIBP on. kl 05:52 Otto Burgos MD is Attending Physician. [facility] 06:18 Attending Physician role handed off by Otto Burgos MD jerome 06:18 Lance Ponce MD is Attending Physician. jerome 06:28 Inserted saline lock: 24 gauge in right antecubital area, using aseptic technique. kl 06:53 Troponin High Sensitivity Sent. kl 07:08 Katelynn Hodge, RN is Primary Nurse. vg1 07:19 Bryan Lara MD is Referral Physician. jerome 07:42 No provider procedures requiring assistance completed. IV discontinued, intact, ll1 bleeding controlled, No redness/swelling at site. Pressure dressing applied. 07:43 Arm band placed on. ll1 Administered Medications: 06:26 Drug: NS 0.9% 1000 ml Route: IV; Rate: 1 bolus; Site: right antecubital; kl 07:44 Follow up: Response: No adverse reaction; IV Status: Completed infusion; IV Intake: ll1 600ml 06:26 Drug: Pepcid (famotidine) 20 mg Route: IVP; Site: right antecubital; kl 07:44 Follow up: Response: No adverse reaction ll1 06:29 Drug: Zofran (Ondansetron) 4 mg Route: IVP; Site: right antecubital; kl 07:43 Follow up: Response: No adverse reaction ll1 06:53 Drug: Phenergan (promethazine) 12.5 mg Route: IVP; Site: right antecubital; kl 07:43 Follow up: Response: No adverse reaction ll1 06:54 Drug: morphine 4 mg Route: IVP; Infused Over: 4 mins; Site: right antecubital; kl 07:43 Follow up: Response: No adverse reaction; Pain is decreased; RASS: Alert and Calm (0) ll1 Medication: 07:43 VIS not applicable for this client. ll1 Intake: 07:44 IV: 600ml; Total: 600ml. ll1 Outcome: 07:19 Discharge ordered by . jerome 07:42 Discharged to home via wheelchair. [facility] 07:42 Condition: stable 07:42 Discharge instructions given to patient, Instructed on discharge instructions, follow up and referral plans. Demonstrated understanding of instructions, follow-up care. 07:49 Patient left the ED. 1 Signatures: Gisele Roy RN RN kl Anderson, Corey, MD MD cha Garcia, Victoria, RN RN 1 Keira Roy RN RN ll1 Otto Burgos MD MD [email or web address]
[2022-01-13 08:14] VITALS: TEMP 98.5; O2SAT 98
[2022-01-13 08:35] VITALS: BP 158/82
--- NOTE | 2022-01-14 13:47 | EKG ---
Test Date: 2022-01-13 Test Time: 06:19:33 [facility] Clerk: RIGOBERTO MEASUREMENT RESULTS: Intervals: Rate: 80 NC: 170 QRSD: 104 QT: 420 QTc: 484 [place]: P: 37 NC: 170 QRS: -48 T: 78 INTERPRETIVE STATEMENTS: Normal sinus rhythm Left anterior fascicular block Prolonged QT Abnormal ECG Compared to ECG 01/12/2022 14:44:55 Prolonged QT interval now present Electronically Signed On 01-14-22 13:43:57 CDT by Ashu Gardiner
== END 2022-01-13 07:49 | disposition home or self-care (01) ==
LOC: ER 05:27
DX: R10.30 Lower abdominal pain, unspecified (principal); N18.9 Chronic kidney disease, unspecified; F31.9 Bipolar disorder, unspecified; R11.2 Nausea with vomiting, unspecified; I50.9 Heart failure, unspecified; G20 Parkinson's disease; Z86.73 Personal history of transient ischemic attack (TIA), and cerebral infarction without residual deficits; Z79.4 Long term (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; Z88.5 Allergy status to narcotic agent
CPT/HCPCS: 96361; 93005; 96375; 96374; 99284; J2550; J7030; J2405

== ENCOUNTER 2022-02-16 21:10 | Emergency (ER) | payer OTHER ==
--- OUTSIDE RECORDS SUMMARY | 2022-02-16 21:13 | XMS REPORT | Clinical Summary ---
:1960 Author Organization [facility] MD [facility] Address [address] [place] [address] Care Team Providers Name Role Phone Unavailable [...] Vaccination (#1) 1960 Results Not on fileafter 02/16/2021 Insurance Payer Benefit Plan / Subscriber ID Effective Phone Address T ype Group Dates MEDICARE MEDICARE PART A [id number] 2004-Pres [phone] [facility] Medicare AND B ent [id number] [place] [address] [place] [id number] 2018-Pres [address] Medicaid TRADITIONAL TRADITIONAL ent [id number] [place] [address] Advance Directives Code Status Date Activated Date Inactivated Comments Full Code 12/19/2018 10:01 AM 12/25/2018 1:04 PM
--- OUTSIDE RECORDS SUMMARY | 2022-02-16 21:18 | XMS REPORT | Continuity of Care Document ---
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 losartan Yes Chronic 25mg Take 1 Univ ers (COZAAR) 25 7-19 pain of tablet (25 ity of mg tablet 00:00: right foot mg) by [place] 00 mouth MD daily. [facility] metoprolol Yes Chronic 25mg Take 1 [...] affected MD area(s) Anderso daily. n Cancer [place] polyethylen Yes Chronic 17g Take 17 g Univers e glycol 7-19 pain of by mouth ity of (MIRALAX) 00:00: right foot daily. Can [place] 17 g packet 00 get over MD the [facility] counter Cancer [place] senna-docus Yes Chronic 2{tbl} Take 2 Univers ate 7-19 pain of tablets by ity of (SENOKOT-S) 00:00: right foot mouth [place] 8.6 mg-50 00 twice MD mg tablet daily. Can Elio rso get over the Cancer counter [place] divalproex Yes Chronic 750mg Take 3 U nivers (DEPAKOTE) 7-19 pain of tablets ity of 250 mg 24 00:00: right foot (750 mg) [place] hr tablet 00 by mouth MD at [facility] bedtime. [facility] [place] NOVOLIN Yes Type 2 Inject 35 Uni [...] mg) by [place] 00 mouth [facility] [place] metoprolol Yes Chronic 25mg Take 1 Un [place] tartrate 7-19 pain of tablet (25 it y of (LOPRESSOR) 00:00: right foot mg) by [place] 25 mg 00 mouth MD tablet twice Anderso daily. n [facility] [place] risperiDONE Yes Chronic 4mg Take 1 U nivers (RisperDAL) 7-19 pain of tablet (4 ity of 4 mg tablet 00:00: right foot mg) by [place] 00 mouth at MD bedtime. [facility] collagenase Yes Chronic Apply Un urbano (SANTYL) 7-19 pain of topically ity of ointment 00:00: right foot to [place] as 00 affected MD area(s) Anderso daily. [facility] [place] polyethylen Yes Chronic 17g Take 17 g Univers e glycol 7-19 pain of by mouth ity of (MIRALAX) 00:00: right foot daily. Can [place] 17 g packet 00 get over MD the [facility] counter Cancer [place] senna-docus Yes Chronic 2{tbl} Take 2 Univers ate 7-19 pain of tablets by ity of (SENOKOT-S) 00:00: right foot mouth [place] 8.6 mg-50 00 twice MD mg tablet daily. Can Elio rso get over n the Cancer counter [place] divalproex Yes Chronic 750mg Take 3 U nivers (DEPAKOTE) 7-19 pain of tablets ity of 250 mg 24 00:00: right foot (750 mg) [place] hr tablet 00 [facility] [place] NOVOLIN Yes Type 2 Inject 35 Uni [...] mg) by [place] 00 mouth MD daily. [facility] metoprolol Yes Chronic 25mg Take 1 Un ur[place] tartrate 7-19 pain of tablet (25 it y of (LOPRESSOR) 00:00: right foot mg) by [place] 25 mg 00 mouth MD tablet twice [facility] daily. [facility] [place] risperiDONE 2018- Yes Chronic 4mg Take 1 U nivers (RisperDAL) 7-19 pain of tablet (4 ity of 4 mg tablet 00:00: right foot mg) by [place] 00 mouth at [facility]. [facility] collagenase Yes Chronic Apply Un ur[place]ano (SANTYL) 7-19 pain of topically ity of ointment 00:00: right foot to Gwyn as 00 affected MD area(s) [facility] daily. [facility] polyethylen Yes Chronic 17g Take 17 g Univers e glycol 7-19 pain of by mouth ity of (MIRALAX) 00:00: right foot daily. Can [place] 17 g packet 00 get over MD the [facility] counter Cancer [place] senna-docus Yes Chronic 2{tbl} Take 2 Univers ate 7-19 pain of tablets by ity of (SENOKOT-S) 00:00: right foot mouth [place] 8.6 mg-50 00 twice MD mg tablet daily. Can Elio rso get over the Cancer counter [place] divalproex Yes Chronic 750mg Take 3 U nivers (DEPAKOTE) 7-19 pain of tablets ity of 250 mg 24 00:00: right foot (750 mg) [place] hr tablet 00 by mouth [facility] NOVOLIN Yes Type 2 Inject 35 [...] right foot mg) by [place] 00 mouth daily. [facility] metoprolol Yes Chronic 25mg Take 1 Un [place] tartrate 7-19 pain of tablet (25 it y of (LOPRESSOR) 00:00: right foot mg) by [place] 25 mg 00 mouth MD tablet twice [facility] daily. [facility] risperiDONE Yes Chronic 4mg Take 1 U nivers (RisperDAL) 7-19 pain of tablet (4 ity of 4 mg tablet 00:00: right foot mg) by [place] 00 mouth at MD bedtime. [facility] collagenase Yes Chronic Apply Un urbano (SANTYL) 7-19 pain of topically ity of ointment 00:00: right foot to [place] as 00 affected MD area(s) Anderso daily. [facility] [place] polyethylen Yes Chronic 17g Take 17 g Univers e glycol 7-19 pain of by mouth ity of (MIRALAX) 00:00: right foot daily. Can [place] 17 g packet 00 get over MD the [facility] counter Cancer [place] senna-docus Yes Chronic 2{tbl} Take 2 Univers ate 7-19 pain of tablets by ity of (SENOKOT-S) 00:00: right foot mouth [place] 8.6 mg-50 00 twice MD mg tablet daily. Can Elio rso get over the Cancer counter [place] divalproex Yes Chronic 750mg Take 3 U nivers (DEPAKOTE) 7-19 pain of tablets ity of 250 mg 24 00:00: right foot (750 mg) [place] hr tablet 00 by mouth MD at [facility] bedtime. [facility] NOVOLIN Yes Type 2 Inject 35 [...] mg) by [place] 00 mouth MD daily. [facility] metoprolol Yes Chronic 25mg Take 1 Un ur[place] tartrate 7-19 pain of tablet (25 it y of (LOPRESSOR) 00:00: right foot mg) by [place] 25 mg 00 mouth MD tablet twice Anderso daily. [facility] [place] risperiDONE Yes Chronic 4mg Take 1 U nivers (RisperDAL) 7-19 pain of tablet (4 ity of 4 mg tablet 00:00: right foot mg) by [place] 00 mouth at MD bedtime. [facility] collagenase Yes Chronic Apply Un urbano (SANTYL) 7-19 pain of topically ity of ointment 00:00: right foot to G[place] as 00 affected MD area(s) Anderso daily. [facility] [place] polyethylen Yes Chronic 17g Take 17 g Univers e glycol 7-19 pain of by mouth ity of (MIRALAX) 00:00: right foot daily. Can [place] 17 g packet 00 get over MD the [facility] counter Cancer [place] senna-docus Yes Chronic 2{tbl} Take 2 Univers [...] 00 by mouth MD at [facility] bedtime. [facility] NOVOLIN Yes Type 2 Inject 35 [...] mg) by [place] 00 mouth MD daily. [facility] metoprolol Yes Chronic 25mg Take 1 Un [place] tartrate 7-19 pain of tablet (25 it y of (LOPRESSOR) 00:00: right foot mg) by [place] 25 mg 00 mouth MD tablet twice [facility] daily. [facility] risperiDONE Yes Chronic 4mg Take 1 U nivers (RisperDAL) 7-19 pain of tablet (4 ity of 4 mg tablet 00:00: right foot mg) by [place] 00 mouth at MD bedtime. [facility] collagenase Yes Chronic Apply Un ur[place]ano (SANTYL) 7-19 pain of topically ity of ointment 00:00: right foot to [place] as 00 affected MD area(s) [facility] daily. [facility] polyethylen Yes Chronic 17g Take 17 g Univers e glycol 7-19 pain of by mouth ity of (MIRALAX) 00:00: right foot daily. Can [place] 17 g packet 00 get over MD the Anderso counter n Cancer [place] senna-docus Yes Chronic 2{tbl} Take 2 Univers ate 7-19 pain of tablets by ity of (SENOKOT-S) 00:00: right foot mouth [place] 8.6 mg-50 00 twice MD mg tablet daily. Can Elio rso get over n the Cancer counter [place] divalproex Yes Chronic 750mg Take 3 U nivers (DEPAKOTE) 7-19 pain of tablets ity of 250 mg 24 00:00: right foot (750 mg) [place] hr tablet 00 by mouth MD at [facility] bedtime. n [facility] [place] NOVOLIN Yes Type 2 Inject 35 Uni vers 70/30 U-100 7-19 diabetes units ity of INSULIN 100 00:00: mellitus before [place] unit/mL 00 with foot breakfast MD (70-30) ulcer and 20 [facility] injection units n before Cancer dinner. Center HOLD if sugar is less than 100 [facility] Yes Chronic 500mg Take 1 Univers ol 7-18 pain tablet ity of (ROBAXIN) 00:00: (500 mg[place] 500 mg 00 by mouth [place] tablet every 8 Anders[facility] (eight) n hours. [facility] Yes Chronic 500mg Take 1 Univers ol 7-18 pain tablet ity of (ROBAXIN) 00:00: (500 mg[place] mg 00 by mouth [place] tablet every 8 Anderso (eight) n hours. [facility] Yes Chronic 500mg Take 1 Univers ol 7-18 pain tablet ity of (ROBAXIN) 00:00: (500 mg[place] mg 00 by mouth MD tablet every 8 Anderso (eight) n hours. [facility] Yes Chronic 500mg Take 1 Univers ol 7-18 pain tablet ity of (ROBAXIN) 00:00: (500 mg) [place] mg 00 by mouth [place] tablet every 8 Anders[facility] (eight) n hours. [facility] Yes Chronic 500mg Take 1 Univers ol 7-18 pain tablet ity of (ROBAXIN) 00:00: (500 mg[place] mg 00 by mouth [place] tablet every 8 Anders[facility] (eight) n hours. [facility] methocarbam 2019-0 Yes Chronic 500mg Take 1 Univers ol 7-18 pain tablet ity of (ROBAXIN) 00:00: (500 mg) [place] mg 00 by mouth MD tablet every 8 [facility] (eight) n hours. [facility] Victoza Victoza Yes Sylvain Inject 1.8 C ommon Dietrich mg/day [facility] Albuterol Albuterol Yes Sylvain 1 puff as Common Sulfate HFA Sulfate HFA Dietrich needed [facility] Duloxetine Duloxetine Yes Sylvain 1 capsule Common HCl HCl Dietrich [facility] Clonazepam Clonazepam Yes Sylvain 1 tablet Common Dietrich at bedtime [facility] NovoLIN NovoLIN Yes Sylvain Inject 65 Co mmon 70/30 70/30 Dietrich units [facility] FlexPen FlexPen [facility] Tramadol Tramadol Yes Sylvain 1 tablet C ommon HCl HCl Dietrich as needed [facility] Hydrocodone Hydrocodone Yes Sylvain 1 tablet Common -Acetaminop -Acetaminop Dietrich as needed [facility] hen hen [facility] Eliquis Eliquis Yes Sylvain TAKE 1 Commo n Dietrich TABLET BY [facility] MOUTH [facility] TWICE [facility] Benztropine Benztropine Yes Sylvain 1 tablet Common Mesylate Mesylate Dietrich at bedtime [facility] Amphetamine Amphetamine Yes Sylvain 1 tablet Common -Dextroamph -Dextroamph Dietrich [facility] etamine etamine [facility] Risperidone Risperidone Yes Sylvain 1 tablet Common Dietrich [facility] Metoprolol Metoprolol Yes Sylvain 1 tablet Common Tartrate Tartrate Dietrich with food S pirit [facility] Losartan Losartan Yes Sylvain 1 tablet C ommon Potassium Potassium Dietrich Spir [facility] Divalproex Divalproex Yes Sylvain 1 tablet Common Sodium ER Sodium ER Dietrich [place] BusPIRone BusPIRone Yes Sylvain 1 tablet Common HCl HCl Dietrich [facility] Pen [place] Pen [place] Yes Sylvain N/s Common Dietrich [facility] Atorvastati Atorvastati Yes Sylvain 1 tablet Common n Calcium n Calcium Dietrich Spir it - [facility] Advair Advair Yes Sylvain 1 puff Common Diskus Diskus Dietrich Spirit - [facility] True Metrix True Metrix Yes Sylvain USE TO Common Blood Blood Dietrich TEST BLOOD Spirit Glucose Glucose SUGAR 1-2 - CH I Test Test TIMES St EVERY DAY [facility] NovoLIN NovoLIN Yes Sylvain INJECT Commo n 70/30 70/30 Dietrich SUBQUTANEO Spirit FlexPen FlexPen USLY 65 - [facility] UNITS [facility] TWICE [facility] DAILY [facility] UltiCare UltiCare Yes Sylvain USE ONE Co mmon Micro Pen Micro Pen Dietrich NEEDLE Sp kwame [place] THREE - [facility] TIMES St DAILY WITH [facility] NOVOLIN FLEXPEN Immunizations Ordered Filled Immunization Date Status Comments [facility] e Immunization Name Name SARS-COV-2 COVID-19 2021-04-20 Completed Unive rsity of MODERNA 12+ YRS 00:00:00 [place] [facility] VACCINE Branch SARS-COV-2 COVID-19 2021-04-20 Completed Unive rsity of MODERNA 12+ YRS 00:00:00 [facility] ical VACCINE Branch SARS-COV-2 COVID-19 2021-04-20 Completed Unive rsity of MODERNA 12+ YRS 00:00:00 [facility] ical VACCINE Branch SARS-COV-2 COVID-19 2020-09-18 Completed Unive rsity of MODERNA 12+ YRS 00:00:00 [place] [facility] VACCINE Branch SARS-COV-2 COVID-19 2020-09-18 Completed Unive rsity of MODERNA 12+ YRS 00:00:00 [place] [facility] VACCINE Branch SARS-COV-2 COVID-19 2020-09-18 Completed Unive rsity of MODERNA 12+ YRS 00:00:00 [place] [facility] VACCINE Branch SARS-COV-2 COVID-19 2020-08-21 Completed Unive rsity of MODERNA 12+ YRS 00:00:00 [facility] ical VACCINE Branch SARS-COV-2 COVID-19 2020-08-21 Completed Unive rsity of MODERNA 12+ YRS 00:00:00 [facility] ical VACCINE Branch SARS-COV-2 COVID-19 2020-08-21 Completed Unive rsity of MODERNA 12+ YRS 00:00:00 [facility] ical VACCINE Branch Pneumococcal 13 2019-07-12 Completed Universit y of Conjugate, PCV13 00:00:00 [place] [facility] dical (Prevnar 13) Branch Pneumococcal 13 2019-07-12 Completed Universit y of Conjugate, PCV13 00:00:00 [place] [facility] dical (Prevnar 13) Branch Pneumococcal 13 2019-07-12 Completed Universit y of Conjugate, PCV13 00:00:00 [place] Me dical (Prevnar 13) Branch Pneumococcal 13 2019-05-25 Completed Universit y of Conjugate, PCV13 00:00:00 [place] [facility] (Prevnar 13) Branch Pneumococcal 13 2019-05-25 Completed Universit y of Conjugate, PCV13 00:00:00 [facility] dical (Prevnar 13) Branch Pneumococcal 13 2019-05-25 Completed Universit y of Conjugate, PCV13 00:00:00 [facility] dical (Prevnar 13) Branch Vital Signs Vital Name Observation Time Observation Value Comments Source Systolic blood 2022-01-30 16:08:00 170 mm[Hg] Univer sity of pressure [facility] Diastolic blood 2022-01-30 16:08:00 91 mm[Hg] Unive rsity of pressure [facility] Heart rate 2022-01-30 16:05:00 70 /min [facility] Body temperature 2022-01-30 16:05:00 36.28 [facility] Respiratory rate 2022-01-30 16:05:00 18 /min [facility] Body height 2022-01-30 16:05:00 182.9 cm [facility] Body weight 2022-01-30 16:05:00 104.418 kg [facility] BMI 2022-01-30 16:05:00 31.22 kg/m2 [facility] Oxygen saturation in 2022-01-30 16:05:00 98 /min [facility] Arterial blood by [facility] [place] [facility] Pulse oximetry Branch Procedures This patient has no known procedures. Plan of Care Planned Activity Planned Date Details Comments Source Future Scheduled 2022-03-09 IMM Influenza [facility] 00:00:00 Seasonal (>/= 19 yrs) [code = IMM Influenza Seasonal (>/= 19 yrs)] Future Scheduled 2021-12-25 COVID-19 Vaccination Uni versity [...] malignant neoplasm of colon (procedure) [code = 216458654] Future Scheduled 2011 [facility] for [facility] 00:00:00 malignant neoplasm of colon (procedure) [code = 427554108] Future Scheduled 1973 COVID-19 Vaccine (1) [facility] 00:00:00 [code = COVID-19 Vaccine (1)] Future Scheduled 1961 COVID-19 Vaccine (#1) [facility] 00:00:00 [code = COVID-19 Vaccine (#1)] Future Scheduled 1961 Fluoride Varnish [facility] 00:00:00 [code = Fluoride Varnish] Encounters Start End Encounter Admission Attending Care Care Encounter Source Date/Time Date/Time Type Type Clinicians Facility Department ID 2022-02-16 Outpatient [id number] Memoria 21:13:44 [id number] l -[id number] [place] [id number] 2021-10-22 Outpatient Dietrich, STLMLC STLC Common 14:35:01 Sylvain [id number] [facility] 2021-07-05 Outpatient 3 Desean ENCPL OTH [id number] ENCPL 10:37:17 Violetta 18 2021-07-05 Outpatient 3 Desean ENCPL OTH [id number] 20 ENCPL 10:35:19 Violetta 0914 2021-07-05 Outpatient 3 [id number] ENCPL REF [id number] ENCPL 10:33:41 0909 2021-07-04 Outpatient Dietrich, STLMLC STLC Common 12:23:16 Sylvain [id number] [facility] 2021-07-04 Outpatient Dietrich, STLMLC STLC Common 11:58:41 Sylvain [id number] [facility] 2021-07-04 Outpatient Dietrich, STLMLC STLC Common 11:58:34 Sylvain [id number] [facility] 2021-07-04 Outpatient Dietrich, STLMLC STLC Common 11:54:24 Sylvain [id number] [facility] 2021-07-04 Outpatient Dietrich, STLMLC STLC Common 11:24:48 Sylvain [id number] [facility] 2021-07-04 Outpatient Dietrich, STLMLC STLC Common 11:24:36 Sylvain [id number] [facility] 2021-03-20 Outpatient [id number] Memoria 10:39:01 [id number] B l -[id number]-[id number] [place] [id number] AF2 A1DAF2 2021-03-13 Outpatient [id number] Memoria 08:49:42 [id number] [id number]- 8 l -[id number] [place] [id number] [id number] 2021-02-27 Outpatient [id number] Memoria 16:26:17 [id number] A l -[id number]-5TZ [id number] [id number] Raul [id number] E49 [id number] 2021-02-13 Outpatient [id number] [facility] 13:34:27 FDA5-4DF8 [id number] DA5-4DF8- A l -DO7Y-[id number] F-[id number] [id number]-[id number] Raul [id number] C9E [id number] 2021-02-05 Outpatient [id number] Memoria 13:02:31 [id number] [id number] 8 l -[id number] [id number] [id number] Raul [id number] 9A8 B3F9A8 2021-01-31 Outpatient [id number] Memoria 14:21:44 [id number] 1EF-4A97- A l -F0H8-C91 [id number] [place] [id number] [id number] 2021-01-29 Outpatient [id number] [facility] 07:59:59 [id number] AF3-4402- 9 l -9894-E93 [id number] Raul [id number] 73E [id number] 2021-01-26 Outpatient [id number] Memoria 11:30:20 [id number] [id number]-Q02 4R2-0D0T- A l -U478-4E0 [id number] [id number] Raul [id number] [id number] 2021-01-18 Outpatient [id number] Memoria 19:23:47 [id number] 150-0095- 9 l -[id number]-E96 [id number] [id number] Raul [id number] FF0 [id number] 2021-01-17 Outpatient [id number] Memoria 15:43:09 [id number] 8 l -8608-A37 [id number] [id number] Raul [id number] 43A [id number] 2021-01-11 Outpatient [id number] [facility]oria 16:20:54 [id number] [id number] 8 l -1T5L-UZ9 [id number] Raul [id number] [id number] 2020-07-19 Inpatient EM Marina HCACL HCACL [id number] [facility] 06:03:52 an, 32 Clear [facility] 2022-02-14 2022-02-14 Telephone SHANNON [place] [id number] [facility] 00:00:00 00:00:00 Marylu A [place] [id number] ity of [facility] 4[place] PROF[place] [phone] [place] dic[address] 2022-02-12 2022-02-12 Telephone [facility] [id number] [facility] 00:00:00 00:00:00 Marylu A [place] [id number] ity of [facility] 4[place]2.[place].2.686 [place] [phone] [address] 2022-01-30 2022-01-30 Office [facility] [id number] Univers 11:00:00 11:42:01 Visit Fabián [place] [id number] ity of [place] 4[place]2.7.2.686 [place] [phone] [address] 2021-01-17 2021-01-17 Telephone [facility] [id number] 00:00:00 00:00:00 Marylu A [place] [id number] [place] 4.2.7.2.686 Professio [phone] [address] 2021-01-10 2021-01-10 Refill [facility] [id number] 00:00:00 00:00:00 Marylu A [place] [id number] [place] 4.2.7.2.686 Professio [phone] [address] 2020-12-28 2020-12-28 Office [facility] 1.2.840.114 [id number] 13:00:56 15:02:32 Visit Marylu Ravin [place] [id number] [place] 4.2.7.2.686 Professio [phone] [address] 2020-04-04 2020-04-04 Outpatient STLMLC STLMLC [id number] Common 00:00:00 00:00:00 [facility] 2020-04-03 2020-04-03 Outpatient STLMLC STLMLC [id number] Common 00:00:00 00:00:00 [facility] 2020-04-03 2020-04-03 Outpatient STLMLC STLMLC [id number] Common 00:00:00 00:00:00 [facility] 2020-03-21 2020-03-21 Outpatient STLMLC STLMLC [id number] Common 00:00:00 00:00:00 [facility] 2020-03-08 2020-03-08 Outpatient STLMLC STLMLC [id number] Common 00:00:00 00:00:00 [facility] 2020-03-03 2020-03-03 Outpatient STLMLC STLMLC [id number] Common 00:00:00 00:00:00 [facility] 2020-03-01 2020-03-01 Outpatient STLMLC STLMLC [id number] Common 00:00:00 00:00:00 [facility] 2020-02-22 2020-02-22 Outpatient STLMLC STLMLC [id number] Common 00:00:00 00:00:00 [facility] 2020-01-28 2020-01-28 Out[facility] [id number] Common 08:27:00 08:27:[address] [facility] 2020-01-26 2020-01-26 Out[facility] [id number] Common 11:04:00 11:04:[address] [facility] 2020-01-05 2020-01-05 Out[facility] [id number] Common 16:30:00 16:30:[address] [facility] 2020-01-03 2020-01-03 Out[facility] [id number] Common 10:59:00 10:59:[address] [facility] 2019-11-24 2019-11-24 Out[facility] [id number] Common 11:16:00 11:16:[address] [facility] 2019-11-24 2019-11-24 Out[facility] [id number] Common 11:15:00 11:15:[address] [facility] 2019-11-11 2019-11-11 Out[facility] [id number] Common 09:41:00 09:41:[address] [facility] 2019-11-10 2019-11-10 Out[facility] [id number] Common 10:30:00 10:30:[address] [facility] 2019-03-27 2019-03-27 Emergency [facility] [id number] [place] 11:00:00 11:00:00 [facility] 2019-03-27 2019-03-27 Emergency [facility] [id number] [place] 10:55:25 10:55:25 Health 2019-03-27 2019-03-27 Emergency [facility] [id number] [place] 08:02:06 08:02:06 [facility] 2019-03-27 2019-03-27 Emergency [facility] [id number] [place] 00:00:00 00:00:00 Health Results Test Description Test Time Test Comments Results Result Comments Source GLUBED 2020-07-17 17:26:00 Test Item Value Reference Range Interpretation Comme nts GLUBED (test code = GLUBED) 246 MG/DL 70-110 H Performed by certified drum operator at [facility] [id number] 13:12:00 Test Item Value Reference Range Interpretation Comments GLUBED (test code = 233 MG/DL 70-110 H Performe d by certified GLUBED) drum operator at [facility] [id number] 08:24:00 Test Item Value Reference Range Interpretation Comments GLUBED (test code = 157 MG/DL 70-110 H Performe d by certified GLUBED) drum operator at [facility] [id number] 06:46:00 Test Item Value Reference Range Interpretation Comments GLUBED (test code = 159 MG/DL 70-110 H Performe d by certified GLUBED) drum operator at [facility] [id number] 20:20:00 Test Item Value Reference Range Interpretation Comments GLUBED (test code = 174 MG/DL 70-110 H Performe d by certified GLUBED) drum operator at [facility] [id number] 17:34:00 Test Item Value Reference Range Interpretation Comments GLUBED (test code = 101 MG/DL 70-110 N Performe d by certified GLUBED) drum operator at [facility] [id number] 12:09:00 Test Item Value Reference Range Interpretation Comments GLUBED (test code = 176 MG/DL 70-110 H Performe d by certified GLUBED) drum operator at [facility] BASIC METABOLIC [id number] 11:39:00 Test Item Value Reference Range Interpretation [...] 8.3 mg/dL 8.0-10.5 N CA) CBC W/AUTO [id number] 11:24:00 Test Item Value Reference Range Interpretation [...] DIFF REQUIRED (test code NO = MDIFF) [id number] 06:50:00 Test Item Value Reference Range Interpretation Comments GLUBED (test code = 192 MG/DL 70-110 H Performe d by certified GLUBED) drum operator at [facility] [id number] 19:48:00 Test Item Value Reference Range Interpretation Comments GLUBED (test code = 187 MG/DL 70-110 H Performe d by certified GLUBED) drum operator at [facility] [id number] 17:18:00 Test Item Value Reference Range Interpretation Comments GLUBED (test code = 128 MG/DL 70-110 H Performe d by certified GLUBED) drum operator at [facility] C REACTIVE [id number] 13:50:00 Test Item Value Reference Range Interpretation Comments C REACTIVE PROTEIN (test code = CRP) 8.0 mg/L <10.0 N BASIC METABOLIC [id number] 13:50:00 Test Item Value Reference Range Interpretation [...] 8.7 mg/dL 8.0-10.5 N CA) CBC W/AUTO [id number] 13:19:00 Test Item Value Reference Range Interpretation [...] REQUIRED (test code = MDIFF) CBC W/AUTO [id number] 13:19:00 Test Item Value Reference Range Interpretation [...] DIFF REQUIRED (test code NO = MDIFF) [id number] 12:05:00 Test Item Value Reference Range Interpretation Comments GLUBED (test code = 209 MG/DL 70-110 H Performe d by certified GLUBED) drum operator at [facility] [id number] 08:16:00 Test Item Value Reference Range Interpretation Comments GLUBED (test code = 208 MG/DL 70-110 H Performe d by certified GLUBED) drum operator at [facility] [id number] 20:50:00 Test Item Value Reference Range Interpretation Comments GLUBED (test code = 232 MG/DL 70-110 H Performe d by certified GLUBED) drum operator at [facility] [id number] 18:45:00 Test Item Value Reference Range Interpretation Comments GLUBED (test code = 146 MG/DL 70-110 H Performe d by certified GLUBED) drum operator at [facility] - DUP LE ART [id number] 17:18:00 [facility] MATY LUXORName: MARCOS RAMOS : 1960 Sex: M Name: MARCOS RAMOS [facility] Hale : 1960 Age/S: 60 / M [address] [facility] Unit #: [id number] Loc: [place] [address] 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 SFA: Patent, triphasic waveform. Popliteal: Patent, triphasic waveform. Posterior tibial: Patent, triphasic waveform.Dorsalis pedis: Patent, triphasic waveform. 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 SFA: Patent, biphasic waveform. Popliteal: Patent, triphasic waveform. Posterior tibial: Patent, biphasic waveform. Dorsalis pedis: Patent, triphasic waveform. IMPRESSION: Patent bilateral lower extremity arterial vasculature with multiphasic waveforms. SL: [id number] at 1718 Reported and signed by: Kuldeep Kuo M.D. PAGE 1 Signed Report (CONTINUED) Name: MARCOS RAMOS [facility] Hale : 1960 Age/S: 60 / M [address] [place] [address] Unit #: [id number] Loc: [place] [address] Phys: Mark Aelxander NP Acct: [id number] Dis Date: Status: ADM IN PHONE #: [phone] Exam Date: 07/14/20201654 FAX #: [phone] Reason: bilat foot uclers EXAMS: CPT CODE: [id number] DUP LE ART ABHISHEK 45637 (Continued) CC: Judah Campuzano MD; Mark Alexander NP Technologist: Sherin Hudson RDMS(AB) Trnscb Date/Time: 07/14/2020 (1717)t.ANTIONETTER.[email or web address] Orig Print D/T: S: 07/14/2020 (1720) Probe: PAGE 2 Signed Report- DUP VEIN [id number] 17:03:00 [facility] 1960 Sex: M Name: AMRCOS RAMOS [facility] : 1960 Age/S: 60 / M [address] [place] [address] Bl Unit #: [id number] Loc: [place] [address] Phys: Jocelynn MehtaC Acct: [id number] Dis Date: Status: ADM IN PHONE #: [phone] Exam Date: 07/14/20201654 FAX #: [phone] Reason: hx of DVT EXAMS: CPT CODE:[id number] DUP VEIN ABHISHEK 17886 Clinical Indication: History of DVT, bilateral lower [...] Porfirio at 1702 hours on 07/14/2020. SL: [id number] at 1703 Reported and signed by: Kuldeep Kuo M.D. CC: Jocelynn Mehta; Judah Campuzano MD Technologist: Sherin Hudson RDMS() Trnscb Date/Time: 07/14/2020 (1702) [email or web address].SDR.KM28 Orig Print D/T: S: 07/14/2020 (1705) Probe: PAGE 1 Signed [id number] 16:30:00 Test Item Value Reference Range Interpretation [...] APPROPRIATECLIN ICAL EUALUATIONS. - CTA CHEST FOR [id number] 16:24:00 [facility] : 1960 Sex: M Name: MARCOS RAMOS 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 Shortness of [...] 4. Evidence of prior granulomatous process. SL: [id number] PAGE 1 Signed Report (CONTINUED) Name: MARCOS RAMOS [facility] : 1960 Age/S: 60 / M [address] [place] [address] Unit #: [id number] Loc: [place] [address] Phys: Jocelynn Mehta Acct: [id number] Dis Date: Status: ADM IN PHONE #: [phone] Exam Date: 07/14/2020 1553 FAX #: [phone] Reason: rule out PE, Hx of PE EXAMS: CPT CODE: [id number] [place] [address] (Continued) at 1624 Reported and signed by: Kuldeep Kuo M.D. 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 045 Positive: (test code = >= 0.046 Correl ation with TROPI) serial results, other cardiac markers andclin ical findings is necessary to determine the clinicalsignifi cance of this result. Results using different metho dologies should not be c omparedto one another as aarno titative results may masoud y by method. CBC W/AUTO [id number] 11:02:00 Test Item Value Reference Range Interpretation [...] (test code NO = MDIFF) CBC W/AUTO [id number] 11:01:00 Test Item Value Reference Range Interpretation [...] MANUAL DIFF REQUIRED (test code = MDIFF) [id number] 10:08:00 Test Item Value Reference Range Interpretation Comments GLUBED (test code = 165 MG/DL 70-110 H Performe d by certified GLUBED) drum operator at [facility] LACTIC ACID 2ND [id number] 21:31:00 Test Item Value Reference Range Interpretation Comments LACTIC ACID 2ND REPEAT (test code 1.9 mmol/L 0.4-1.9 N = LACT2) [id number] 21:04:00 Test Item Value Reference Range Interpretation Comments GLUBED (test code = 224 MG/DL 70-110 H Performe d by certified GLUBED) drum operator at [facility] [id number] 19:23:00 Test Item Value Reference Range Interpretation [...] HGBA1C%) 11.2 %A1C 4.8-6.0 H LACTIC ACID [id number] 19:17:00 Test Item Value Reference Range Interpretation Comments LACTIC ACID REPEAT (test code = 2.3 mmol/l 0.4-1.9 H LACTR) UA RFLX MICR CULT IF [id number] 17:25:00 Test Item Value Reference Range Interpretation [...] culture: RiskForSepsis-no oth srcSpecimen Description: CLEAN CATCHLIPOPROTEIN [id number] 17:03:00 Test Item Value Reference Range Interpretation Comments LIPOPROTEIN LDL 165.8 mg/dL 0-100 H <100 OPTIMAL 100-129 (test code = LDL) NEAR OPTIM AL/ABOVE [id number] HIGH>QF=871 MELCHOR Y HIGH*Guidelines provided by the National Choles terol Education[employer]a Adult Treatment Panel III BASIC METABOLIC [id number] 16:44:00 Test Item Value Reference Range Interpretation [...] 8.8 mg/dL 8.0-10.5 N CA) HEPATIC FUNCTION [id number] 16:44:00 Test Item Value Reference Range Interpretation [...] 121 IUnit/L 20-125 N code = ALKP) [id number] 16:44:00 Test Item Value Reference Range Interpretation [...] may masoud y by method. BASIC METABOLIC [id number] 16:41:00 Test Item Value Reference Range Interpretation [...] code = CA) mg/dL 8.0-10.5 HEPATIC FUNCTION [id number] 16:41:00 Test Item Value Reference Range Interpretation Comments TOTAL PROTEIN (test code = PROT) g/dL 6.4-8.2 ALBUMIN (test code = ALB) g/dL 3.4-5.0 BILIRUBIN TOTAL (test code = BILT) mg/dL 0.0-1.0 BILIRUBIN DIRECT (test code = BILD) MG/DL 0.0-0.30 SGOT/AST (test code = AST) IUnit/L 15-37 SGPT/ALT (test code = ALT) IUnit/L 30-65 ALKALINE PHOSPHATASE TOTAL (test IUnit/L 20-125 code = ALKP) [id number] 16:41:00 Test Item Value Reference Range Interpretation [...] results may masoud y by method. LACTIC [id number] 16:39:00 Test Item Value Reference Range Interpretation Comments LACTIC ACID (test code = LACT) 2.6 mmol/L 0.4-1.9 H - XR CHEST 1 [id number] 16:34:00 [facility] RICH[facility]DM[facility] Jovanny : 1960 Sex: M FAX: [place] Buddy Pal [phone] [place]: St: ADM Name: MARCOS RAMOS 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 Shortness of breath. Comparison: 11/20/2014 chest x-ray FINDINGS: The cardiomediastinal silhouette is normal in size. Faint right basilar pulmonary opacities are present and may be exaggerated by asymmetric elevation of the right hemidiaphragm crowding the bronchovascular markings. Remaining lungs are clear. Costophrenic angles are sharp. No suspicious osseous abnormality isseen. IMPRESSION: Suspected faint right basilar infiltrate. SL: SG-H at 1634 Reported and signed by: Festus Mejia M.D. CC: Buddy Pal NP Technologist: Meme Banerjee, RT(R); Nikki Coello RT(R) Trnscrd Date/Time/By: 07/13/2020 (0395) : By: [email or web address] Orig Print D/T: S: 07/13/2020 (1637) PAGE 1 Signed ReportCBC W/AUTO DIFF 2020-07-13 [...] (test code NO = MDIFF) CBC W/AUTO [id number] 16:27:00 Test Item Value Reference Range Interpretation [...]
[2022-02-16] MEDS ORDERED: NA CHLORIDE 0.9% 500 ML ONE (22:04)
[2022-02-16] MEDS ORDERED: MORPHINE 4 MG/ML SYR ONE (22:04)
[2022-02-16] MEDS ORDERED: ONDANSETRON 4 MG/2 ML VIAL ONE (22:04)
[2022-02-16 22:05] LABS: Absolute Lymphocytes (CBC) 1.2 K/uL (0.7-4.9); Hematocrit 26.1 % (39.6-49.0); Lymphocytes % 19.9 % (15.3-44.8); MCV 86.9 fL (80-100); MPV 7.5 fL (7.6-11.3); RBC Red Blood Cell Count 3.01 M/uL (4.33-5.43)
[2022-02-16 22:29] LABS: ALT/SGPT 20 U/L (12-78); AST/SGOT 17 U/L (15-37); Albumin 2.7 g/dL (3.4-5.0); Alkaline Phosphatase 156 U/L (45-117); BUN Blood Urea Nitrogen 41 mg/dL (7-18); Bicarbonate 24 mmol/L (21-32); Bilirubin Total 0.2 mg/dL (0.2-1.0); Glomerular Filtration Rate 23 ml/min (=/>90); Glucose Level 248 mg/dL (74-106); Lipase 72 U/L (73-393); NT PRO-BNP 8922 pg/mL (<125); Potassium 4.1 mmol/L (3.5-5.1); Sodium Level 136 mmol/L (136-145); Troponin High Sensitivity 29.7 pg/mL (<58.9)
[2022-02-16 22:31] LABS: Bilirubin Direct < 0.1 mg/dL (0-0.2)
[2022-02-16] MEDS ORDERED: HYDROMORPHONE HCL 1 MG/ML INJ ONE (23:21)
--- NOTE | 2022-02-17 00:50 | ER ---
Nurse's Notes [facility] Name: Gasper Fry Age: 62 yrs Sex: Male : 1960 Arrival Date: 02/16/2022 Time: 21:14 Bed 20 Private MD: Diagnosis: Chest pain, unspecified;Nausea with vomiting, unspecified;Generalized anxiety disorder Presentation: 02/16 21:17 Chief complaint: Left sided chest pain, headache, and nausea x 3-4 days. Coronavirus hb screen: At this time, the client does not indicate any symptoms associated with coronavirus-19. Ebola Screen: No symptoms or risks identified at this time. Initial Sepsis Screen: Does the patient meet any 2 criteria? No. Patient's initial sepsis screen is negative. Does the patient have a suspected source of infection? No. Patient's initial sepsis screen is negative. Risk Assessment: Do you want to hurt yourself or someone else? Patient reports no desire to harm self or others. Onset of symptoms was February 12, 2022. 21:17 Method Of Arrival: Wheelchair hb 21:17 Acuity: DARREL 3 hb Triage Assessment: 21:30 General: Appears uncomfortable, Behavior is appropriate for age. ke1 Historical: - Allergies: 21:19 Haldol (Anaphylaxis); hb - PMHx: 21:19 ADD/ADHD; Anxiety; Bipolar disorder; Diabetes - IDDM; neuropathy; Schizophrenia; hb Seizures; Hypertension; Parkinson's disease; Congestive heart failure; cHRONIC FOOT WOUNDS; Chronic pain; Cellulitis; CVA; unstable angina; - Immunization history:: Adult Immunizations up to date. - Social history:: Smoking status: Patient/guardian denies using tobacco. - Family history:: not pertinent. - Hospitalizations: : No recent hospitalization is reported. Screenin:30 Abuse screen: Denies threats or abuse. Nutritional screening: No deficits noted. ke1 Tuberculosis screening: No symptoms or risk factors identified. Fall Risk No fall in past 12 months (0 pts). Secondary diagnosis (15 points) CVA, IV access (20 points). Ambulatory Aid- None/Bed Rest/Nurse Assist (0 pts). Gait- Weak (10 pts.). Mental Status- Oriented to own ability (0 pts). Total Martínez Fall Scale indicates High Risk Score (45 or more points). Fall prevention measures have been instituted. Side Rails Up X 2 Placed Close to Nursing Station. Assessment: 21:30 Pain: Complains of pain in chest Pain radiates to left arm Quality of pain is described ke1 as pressure, Pain began gradually, 2-3 days ago. 22:06 Reassessment: Patient is alert, oriented x 3, equal unlabored respirations, skin ke1 warm/dry/pink. 22:09 Cardiovascular: Rhythm is sinus rhythm. ke1 23:04 Reassessment: Patient is alert, oriented x 3, equal unlabored respirations, skin ke1 warm/dry/pink. Patient denies pain at this time. Patient states feeling better. Patient states symptoms have improved. 23:10 Pain: Complains of pain in chest Pain currently is 6 out of 10 on a pain scale. Quality ke1 of pain is described as pressure. Vital Signs: 21:17 BP 210 / 95; Pulse 84; Resp 16; Temp 97.3; Pulse Ox 99% on R/A; Weight 99.79 kg; Height hb 6 ft. (182.88 cm); Pain 9/10; 22:12 BP 207 / 104; Pulse 79; Resp 15; Pulse Ox 97% on R/A; ke1 22:31 Pain 1/10; ke1 23:33 Pain 3/10; ke1 21:17 Body Mass Index 29.84 (99.79 kg, 182.88 cm) hb ED Course: 21:14 Patient arrived in ED. ja2 21:19 Triage completed. hb 21:22 Ana Lilia Elder, MALU is Primary Nurse. ke1 21:27 Tayo Rivas MD is Attending Physician. rn 21:30 Patient maintains SpO2 saturation greater than 95% on room air. ke1 21:30 Arm band placed on. ke1 21:36 Inserted saline lock: 20 gauge in left antecubital area, using aseptic technique. ke1 21:49 Flu Sent. ke1 21:49 SARS-COV-2 RT PCR (Document "Date of Onset" if Symptomatic) Sent. ke1 22:06 SARS-COV-2 RT PCR (Document "Date of Onset" if Symptomatic) Sent. ke1 22:06 Flu Sent. ke1 22:12 Bed in low position. Call light in reach. Side rails up X 1. Side rails up X2. ke1 22:33 XRAY Chest (1 view) In Process Unspecified. EDMS 23:47 CT Chest Abdomen Pelvis W/O Contrast In Process Unspecified. EDMS 02/17 01:30 IV discontinued. ke1 01:30 No provider procedures requiring assistance completed. ke1 01:30 Client placed on continuous cardiac and pulse oximetry monitoring. NIBP monitoring ke1 applied. 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 Pulse ox on. NIBP on. Administered Medications: 02/16 22:06 Drug: Zofran (Ondansetron) 4 mg Route: IVP; Site: left antecubital; ke1 22:31 Follow up: Response: no nausea post morphine administration ke1 22:06 Drug: morphine 4 mg Route: IVP; Infused Over: 4 mins; Site: left antecubital; ke1 22:31 Follow up: Pain 06/18 Adult ke1 22:06 Drug: NS 0.9% 500 ml Route: IV; Rate: bolus; Site: left antecubital; ke1 23:17 Drug: Dilaudid (HYDROmorphone) 1 mg Route: IVP; Site: left antecubital; ke1 23:33 Follow up: Pain 3 Adult; Response: Pain is decreased ke1 Medication: 02/17 00:30 VIS not applicable for this client. ke1 Outcome: 00:49 Discharge ordered by . rn 01:28 Patient left the ED. ke1 01:30 Discharged to home ambulatory. ke1 01:30 Condition: good 01:30 Discharge instructions given to patient. Signatures: Dispatcher [employer] EDCA Tayo Rivas MD MD rn Baxter, Heather, RN RN Cherry Palomo Kouassi, RN RN ke1 Corrections: (The following items were deleted from the chart) 02/16 22:10 21:30 Pain: Complains of pain in chest ke1 ke1
--- NOTE | 2022-02-17 00:50 | EDPHYS ---
Physician Documentation [facility] Name: Gasper Fry Age: 62 yrs Sex: Male : 1960 Arrival Date: 02/16/2022 Time: 21:14 Bed 20 Private MD: ED Physician Tayo Rivas HPI: 02/16 21:46 This 62 yrs old Male presents to ER via Wheelchair with complaints of Chest rn Pain, Nausea. 21:46 The patient or guardian reports chest pain that is located primarily in the anterior rn chest wall, left. Onset: 4 day(s) ago. The pain does not radiate. Associated signs and symptoms: Pertinent positives: nausea, vomiting, Pertinent negatives: cough, shortness of breath, syncope. The chest pain is described as aching. Duration: The patient or guardian reports multiple episodes, that are intermittent. Modifying factors: The symptoms are alleviated by nothing. the symptoms are aggravated by nothing. Severity of pain: At its worst the pain was mild in the emergency department the pain is unchanged. The patient has experienced similar episodes in the past. The patient has not recently seen a physician. Pt states doesn't feel well, experiencing chest pain and nausea/vomiting for 3-4 days now. No fever. Sister had COVID last week and she helps him with his medication. Denies sob or cough. No trauma. . Historical: - Allergies: 21:19 Haldol (Anaphylaxis); hb - PMHx: 21:19 ADD/ADHD; Anxiety; Bipolar disorder; Diabetes - IDDM; neuropathy; Schizophrenia; hb Seizures; Hypertension; Parkinson's disease; Congestive heart failure; cHRONIC FOOT WOUNDS; Chronic pain; Cellulitis; CVA; unstable angina; - Immunization history:: Adult Immunizations up to date. - Social history:: Smoking status: Patient/guardian denies using tobacco. - Family history:: not pertinent. - Hospitalizations: : No recent hospitalization is reported. ROS: 21:46 Constitutional: Negative for fever, chills, and weight loss, Eyes: Negative for injury, rn pain, redness, and discharge, ENT: Negative for injury, pain, and discharge, Neck: Negative for injury, pain, and swelling, Cardiovascular: Negative for palpitations, and edema, Respiratory: Negative for shortness of breath, cough, wheezing, and pleuritic chest pain, Abdomen/GI: Negative for abdominal pain, diarrhea, and constipation, Back: Negative for injury and pain, MS/Extremity: Negative for injury and deformity, Skin: Negative for injury, rash, and discoloration, Neuro: Negative for weakness, numbness, tingling, and seizure. Exam: 21:48 Constitutional: This is a well developed, well nourished patient who is awake, alert, rn and in no acute distress. Head/Face: Normocephalic, atraumatic. ENT: dry MM Neck: Trachea midline, no thyromegaly or masses palpated, and no cervical lymphadenopathy. Supple, full range of motion without nuchal rigidity, or vertebral point tenderness. No Meningismus. Cardiovascular: Regular rate and rhythm. No pulse deficits. Respiratory: No increased work of breathing, no retractions or nasal flaring. Abdomen/GI: Soft, non-tender Skin: Warm, dry MS/ Extremity: Pulses equal, no cyanosis. Neuro: Awake and alert, GCS 15 22:28 ECG was reviewed by the Attending Physician. rn Vital Signs: 21:17 BP 210 / 95; Pulse 84; Resp 16; Temp 97.3; Pulse Ox 99% on R/A; Weight 99.79 kg; Height hb 6 ft. (182.88 cm); Pain 9/10; 22:12 BP 207 / 104; Pulse 79; Resp 15; Pulse Ox 97% on R/A; ke1 22:31 Pain 1/10; ke1 23:33 Pain 3/10; ke1 21:17 Body Mass Index 29.84 (99.79 kg, 182.88 cm) hb MDM: 21:27 Patient medically screened. rn 02/17 00:47 Differential diagnosis: acute myocardial infarction, acute pericarditis, coronary rn artery disease costochondritis, pancreatitis, pericarditis, pleurisy, pneumonia, pneumothorax. Data reviewed: vital signs, nurses notes, lab test result(s), EKG, radiologic studies, CT scan, plain films, and as a result, I will discharge patient. Counseling: I had a detailed discussion with the patient and/or guardian regarding: the historical points, exam findings, and any diagnostic results supporting the discharge/admit diagnosis, lab results, radiology results, the need for outpatient follow up, to return to the emergency department if symptoms worsen or persist or if there are any questions or concerns that arise at home. Special discussion: Based on the patient's history, exam, and Dx evaluation, there is no indication for emergent intervention or inpatient Tx. It is understood by the patient/guardian that if the Sx's persist or worsen they need to return immediately for re-evaluation. Based on the patient's Hx, exam, and Dx evaluation, there is no indication for emergent surgery or inpatient Tx. It is understood by the patient/guardian that if the Sx's persist or worsen they need to return immediately for re-evaluation. I discussed with the patient/guardian in detail that at this point there is no indication for admission to the hospital. It is understood, however, that if the symptoms persist or worsen the patient needs to return immediately for re-evaluation. ED course: No acute findings on CT chest or blood work, neg trop. Will dc home with return precautions. Family member here asking if he can take him home yet.. 00:55 ED course: Pt states fell 2 weeks ago and possibly broke ribs then. rn 00:57 ED course: Pt requests tylenol #3 but [facility] checked and has active prescription, rn will not give another. . 02/16 21:33 Order name: Basic Metabolic Panel; Complete Time: 22:35 02/16 21:33 Order name: CBC with Diff; Complete Time: 22:35 02/16 21:33 Order name: LFT's; Complete Time: 22:35 02/16 21:33 Order name: NT PRO-BNP; Complete Time: 22:35 02/16 21:33 Order name: Troponin HS; Complete Time: 22:35 02/16 21:33 Order name: Lipase; Complete Time: 22:35 02/16 21:33 Order name: XRAY Chest (1 view) rn 02/16 21:33 Order name: SARS-COV-2 RT PCR (Document "Date of Onset" if Symptomatic); Complete Time: rn :35 02/16 21:33 Order name: Flu; Complete Time: 22:35 02/16 23:06 Order name: CT Chest Abdomen Pelvis W/O Contrast rn 02/16 21:33 Order name: EKG; Complete Time: 21:34 02/16 21:33 Order name: Cardiac monitoring; Complete Time: 21:49 02/16 21:33 Order name: EKG - Nurse/Tech; Complete Time: 21:37 rn 02/16 21:33 Order name: IV Saline Lock; Complete Time: 21:37 rn 02/16 21:33 Order name: Labs collected and sent; Complete Time: 21:49 rn 02/16 21:33 Order name: O2 Per Protocol; Complete Time: 21:50 rn 02/16 21:33 Order name: O2 Sat Monitoring; Complete Time: 21:50 rn EC/10 22:28 Rate is 83 beats/min. Rhythm is regular. Left axis deviation noted. QRS is positive in rn lead I and negative in lead aVF. MI interval is normal. QRS interval is normal. QT interval is normal. No Q waves. T waves are Normal. No ST changes noted. Clinical impression: NSR w/ Non-specific ST/T Changes. Interpreted by me. Reviewed by me. Administered Medications: 22:06 Drug: Zofran (Ondansetron) 4 mg Route: IVP; Site: left antecubital; ke1 22:31 Follow up: Response: no nausea post morphine administration ke1 22:06 Drug: morphine 4 mg Route: IVP; Infused Over: 4 mins; Site: left antecubital; ke1 22:31 Follow up: Pain 1/10 Adult ke1 22:06 Drug: NS 0.9% 500 ml Route: IV; Rate: bolus; Site: left antecubital; ke1 23:17 Drug: Dilaudid (HYDROmorphone) 1 mg Route: IVP; Site: left antecubital; ke1 23:33 Follow up: Pain 3/10 Adult; Response: Pain is decreased ke1 Disposition Summary: 02/17/22 00:49 Discharge Ordered Location: Home rn Problem: new rn Symptoms: have improved rn Condition: Stable rn Diagnosis - Chest pain, unspecified rn - Nausea with vomiting, unspecified rn - Generalized anxiety disorder rn Followup: rn - With: Private Physician - When: As needed - Reason: Recheck today's complaints, Re-evaluation by your physician Discharge Instructions: - Discharge Summary Sheet rn - Nonspecific Chest Pain, Adult rn - Rib Fracture rn Forms: - Medication Reconciliation Form rn - Thank You Letter rn - 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
[2022-02-17 06:36] VITALS: TEMP 97.3
[2022-02-17 06:45] VITALS: BP 207/104; O2SAT 97
--- NOTE | 2022-02-17 18:55 | RAD REPORT ---
EXAM DESCRIPTION: CT Chest, Abdomen and Pelvis Without Intravenous Contrast CLINICAL HISTORY: The patient is 62 years old and is Male; chest pain, abd pain, nausea, HTN TECHNIQUE: Axial computed tomography images of the chest, abdomen and pelvis without intravenous con trast. Sagittal and coronal reformatted images were created and reviewed. This CT exam was perfor med using one or more of the following dose reduction techniques: automated exposure control, adjus tment of the mA and/or kV according to patient size, and/or use of iterative reconstruction technique . COMPARISON: CT abdomen and pelvis without contrast January 12, 2022. FINDINGS: CHEST: Lungs: See below. Pleural space: Small right pleural effusion. No pneumothorax. Heart: Coronary artery disease. No significant pericardial effusion. Mediastinum: Mediastinal and hilar rosa elena calcification. ABDOMEN: Liver: Unremarkable. Gallbladder and bile ducts: Unremarkable. No calcified stones. No ductal dilation. Pancreas: Unremarkable. No ductal dilation. Spleen: Calcified granulomas in the spleen. Adrenals: Unremarkable. No mass. Kidneys and ureters: Mild to moderate bilateral perinephric stranding which may be chronic, simil ar prior. No obstructing stones. No hydronephrosis. Stomach and bowel: Scattered colonic diverticula. No obstruction. No mucosal thickening. PELVIS: Appendix: No findings to suggest acute appendicitis. Bladder: Unremarkable. No stones. Reproductive: Unremarkable as visualized. CHEST, ABDOMEN and PELVIS: Intraperitoneal space: Unremarkable. No significant fluid collection. No free air. Bones/joints: Mildly displaced fractures of the right posterior 10th and 11th ribs. Disc space narrowing with degenerative endplate changes in the spine. No dislocation. Soft tissues: Unremarkable. Vasculature: Scattered atherosclerotic vascular calcifications. No aortic aneurysm. Lymph nodes: Prominent inguinal lymph nodes bilaterally. Tubes, lines and devices: Spinal stimulator leads in place. IMPRESSION: 1. Small right pleural effusion. 2. Coronary artery disease. 3. Mildly displaced fractures of the right posterior 10th and 11th ribs. 4. No acute finding in the abdomen/pelvis. 5. Additional non-emergent findings as above. Electronically signed by: Roger Barrera MD 02/17/2022 12:44 AM CDT Due to temporary technical issues with the PACS/Fluency reporting system, reports are being signed by the in house radiologists without review as a courtesy to insure prompt reporting. The interpreting radiologist is fully responsible for the content of the report.
--- NOTE | 2022-02-18 15:09 | EKG ---
Test Date: 2022-02-16 Test Time: 21:16:40 Garment Mender: MARIA ANTONIA MEASUREMENT RESULTS: Intervals: Rate: 83 IN: 164 QRSD: 98 QT: 398 QTc: 467 [place]: P: 51 IN: 164 QRS: -55 T: 49 INTERPRETIVE STATEMENTS: Normal sinus rhythm Left anterior fascicular block Anterior infarct, age undetermined Abnormal ECG Compared to ECG 01/13/2022 06:19:33 Myocardial infarct finding now present Prolonged QT interval no longer present Electronically Signed On 02-18-22 15:07:51 CDT by Ashu Gardiner
== END 2022-02-17 01:28 | disposition home or self-care (01) ==
LOC: ER 21:10
DX: R07.89 Other chest pain (principal); F41.1 Generalized anxiety disorder; R11.2 Nausea with vomiting, unspecified; I10 Essential (primary) hypertension; E11.9 Type 2 diabetes mellitus without complications; Z20.822 Contact with and (suspected) exposure to COVID-19; Z88.5 Allergy status to narcotic agent
CPT/HCPCS: 93005; 85025; 80048; 36415; 80076; 84484; 83690; 83880; 87804 ×2; 71250; 74176; 71045; 96375; 96374; 99285; U0003; J1170; J7040; J2405

== ENCOUNTER 2022-03-29 01:54 | Inpatient (IN) | payer OTHER ==
--- OUTSIDE RECORDS SUMMARY | 2022-03-29 01:57 | XMS REPORT | Clinical Summary ---
:1960 Author Organization [facility] MD [facility] Address [address] [place] [address] Care Team Providers Name Role Phone Unavailable [...] Vaccination (#1) 1960 Results Not on fileafter 03/29/2021 Insurance Payer Benefit Plan / Subscriber ID Effective Phone Address T ype Group Dates MEDICARE MEDICARE PART A [id number] 2004-Pres [phone] [facility] Medicare AND B ent [id number] [place] [address] [id number] 2018-Pres [address] Medicaid TRADITIONAL TRADITIONAL ent [id number] [place] [address] Advance Directives Code Status Date Activated Date Inactivated Comments Full Code 12/19/2018 10:01 AM 12/25/2018 1:04 PM
--- OUTSIDE RECORDS SUMMARY | 2022-03-29 02:06 | XMS REPORT | Continuity of Care Document ---
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 [facility] 03/16/22 at Branch 0800, Until Discontinu ed, Routine apixaban 2021-06 Yes 1358 5mg 5 mg, Univers (ELIQUIS) 0-08 Oral, BID, ity of tablet 5 mg 13:00: First dose [place] 00 on [facility] 03/16/22 at Branch 0800, Until Discontinu ed, Routine
Indicatio ns: DVT/PE carvediloL 2021-06- No 3.125mg 3.125 mg, Univers (COREG) 0-08 10-08 Oral, BID ity of tablet 13:00: 15:45 MEALS, [place] 3.125 mg 00 :57 First dose Medic al on [facility] 03/16/22 at 0800, Until Discontinu ed, Routine
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 atorvastati 2021-06 Yes 40mg 40 mg, Univ ers n (LIPITOR) 0-08 Oral, QHS, it y of tablet 40 02:00: [place] mg 00 on [facility] 03/15/22 at Branch 2100, Until Discontinu ed, Routine amLODIPine 2021-06 Yes 10mg 10 mg, Unive rs (NORVASC) 0-08 Oral, QHS, ity of tablet 10 02:00: First dose [place] mg 00 on [facility] 03/15/22 at Branch 2100, Until Discontinu ed, Routine amitriptyli 2021-06 Yes 10mg 10 mg, Univ ers ne (ELAVIL) 0-08 Oral, QHS, it y of tablet 10 02:00: First dose [place] mg 00 on [facility] 10/7/22 at Branch 2100, Until Discontinu ed, Routine Sliding 2021-06 Yes Subcutaneo [facility] ers Scale 0-08 us, AC+HS, ity of Insulin-Reg 02:00: First dose [place] ular + Fsbg 00 on Fri Medica l Testing 03/15/22 at Branch 2100, Until Discontinu ed, Routine NaCl 0.9% 2021-06- No 1000mL at 50 [facility] ers (NS) IV 0-08 10-09 mL/hr, IV ity of infusion 02:00: 13:49 Infusion, [place] 1,000 mL 00 :55 CONTINUOUS Medic al , Starting Branch on Fri03/15/22 at 2100, Until 03/17/22 at 0849, Routine albuterol 2021-06 Yes 2{puff} 2 Puff, Un [place] (VENTOLIN) 0-08 Inhalation ity of inhaler 2 01:52: , Q6HPRN, [place] Puff 15 Starting Medical on Fri Branch 03/15/22 at 2052, Until Discontinu ed, Routine, Wheezing, Shortness of Breath ondansetron 2021-06 Yes 4mg 4 mg, Slow Univers (ZOFRAN 0-08 IV Push, ity of (PF)) 01:44: Q6HPRN, [place] injection 4 32 Starting Medi [place] mg on Fri Branch 03/15/22 at 2044, Until Discontinu ed, Routine, Nausea and Vomiting (N/V) HYDROcodone 2021-06- Yes 1{tbl} 1 tablet, Univers -acetaminop 0-08 10-10 Oral, ity of hen (NORCO 01:35: 01:34 Q6HPRN, [place] 5) 5-325 mg 41 :41 Starting [place] tablet 1 on Fri Branch tablet 03/15/22 at 2034, Until 03/17/22 at 2033, Routine, Pain (scale 4-6) acetaminoph 2021-06 Yes 650mg 650 mg, Un [place] en 0-08 Oral, ity of (TYLENOL) 01:35: Q6HPRN, [place] tablet 650 36 Starting Medic al mg on Fri Branch 03/15/22 at 2034, Until Discontinu ed, Routine, Pain (scale 1-3) morpHINE (2 2021-06- No 2mg 2 mg, Slow Univers mg/mL) 0-08 10-08 IV Push, ity of injection 2 01:00: 00:47 ONCE, 1 [place] mg 00 :00 dose, On Medical Fri Branch 03/15/22 at 2000, STAT ondansetron 2021-06 No 4mg 4 mg, Slow Univers (ZOFRAN 003-15 IV Push, ity of (PF)) 23:30: 22:34 ONCE, 1 [place] injection 4 00 :00 dose, On [place]i [place] mg Fri Branch 03/15/22 at 1830, DEEPALI morpHINE (2 2021-06 No 4mg 4 mg, Slow Univers mg/mL) 003-15 IV Push, ity of injection 4 23:30: 22:35 ONCE, 1 [place] mg 00 :00 dose, On Medical Fri Branch 03/15/22 at 1830, STAT insulin 2021-06 No 8U 8 Units, Unive rs regular 003-15 Subcutaneo ity o f human 22:45: 22:11 us, ONCE, [place] (HUMULIN R) 00 :00 1 dose, On Me dical injection 8 Fri Branch Units 03/15/22 at 1745, Routine
Indicatio n for insulin: Hyperglyce dante magnesium 2021-06 2g 2 g, IV Univ ers sulfate in 003-15 Piggyback, it y of water 2 22:45: 23:02 Administer [place] gram/50 mL 00 :00 over 60 Medica l (4 %) Minutes, Branch infusion 2 ONCE, 1 g dose, On 03/15/22 at 1745, Routine HYDROcodone 2021-06- No 1{tbl} 1 tablet, Univers -acetaminop 003-15 Oral, ity of hen (NORCO 22:30: 21:17 ONCE, 1 [place] 5) 5-325 mg 00 :00 dose, On [place] tablet 1 Fri Branch tablet 03/15/22 at 1730, DEEPALI nitroglycer 2021-06- No 1[in_us 1 Inch, Univers in (NITROL) 003-15 ] Transderma i ty of 2 % 22:00: 21:08 l (Apply [place] ointment 1 00 :00 To Skin), [place] Inch ONCE, 1 Branch dose, On 03/15/22 at 1700, DEEPALI aspirin 2021- 202- No 243mg 243 mg, Unive rs chewable 0-07 03-15 Oral, ity of tablet 243 22:00: 20:51 ONCE, 1 [place] mg 00 :00 dose, On Medical Fri Branch 03/15/22 at 1700, Routine ondansetron 2022-0 Yes 4mg Take 1 Univ ers 4 mg 9-08 tablet by ity of disintegrat 00:00: mouth [place] ing tablet 00 every 8 Medica l (eight) Branch hours as needed for Nausea and Vomiting (N/V). ondansetron 2022-0 Yes 4mg Take 1 Univ ers 4 mg 9-08 tablet by ity of disintegrat 00:00: mouth [place] ing tablet 00 every 8 Medica l (eight) Branch hours as needed for Nausea and Vomiting (N/V). ondansetron 2022-0 Yes 4mg Take 1 Univ ers 4 mg 9-08 tablet by ity of disintegrat 00:00: mouth [place] ing tablet 00 every 8 Medica l (eight) Branch hours as needed for Nausea and Vomiting (N/V). ondansetron 2022-0 Yes 4mg Take 1 Univ ers 4 mg 9-08 tablet by ity of disintegrat 00:00: mouth [place] ing tablet 00 every 8 Medica l (eight) Branch hours as needed for Nausea and Vomiting (N/V). ondansetron 2022-0 Yes 4mg Take 1 Univ ers 4 mg 9-08 tablet by ity of disintegrat 00:00: mouth [place] ing tablet 00 every 8 Medica l (eight) Branch hours as needed for Nausea and Vomiting (N/V). ondansetron 2022-0 Yes 4mg Take 1 Univ ers 4 mg 9-08 tablet by ity of disintegrat 00:00: mouth [place] ing tablet 00 every 8 Medica l (eight) Branch hours as needed for Nausea and Vomiting (N/V). ondansetron 2022-0 Yes 4mg Take 1 Univ ers 4 mg 9-08 tablet by ity of disintegrat 00:00: mouth [place] ing tablet 00 every 8 Medica l (eight) Branch hours as needed for Nausea and Vomiting (N/V). risperiDONE 2022-0 Yes 4mg Take 4 mg U nivers 4 mg tablet 8-17 by mouth ity of 17:55: at [place] 15 bedtime. Medical Branch aspirin 0 Yes 81mg Take 81 mg Univ ers (ADULT LOW 8-17 by mouth ity o f DOSE 17:55: daily. [place] ASPIRIN) 81 15 Medical mg EC Branch tablet risperiDONE 0 Yes 4mg Take 4 mg U nivers 4 mg tablet 8-17 by mouth ity of 17:55: at [place] 15 bedtime. Medical Branch aspirin 0 Yes 81mg Take 81 mg Univ ers (ADULT LOW 8-17 by mouth ity o f DOSE 17:55: daily. [place] ASPIRIN) 81 15 Medical mg EC Branch tablet mupirocin 2 Yes [id number] Apply to Univers % ointment 8-17 area(s) 2 ity of 00:00: (two) [place] 00 times Medical daily. Branch mupirocin 2 0 Yes [id number] Apply to Univers % ointment 8-17 area(s) 2 ity of 00:00: (two) [place] 00 times Medical daily. Branch mupirocin 2 0 Yes [id number] Apply to Univers % ointment 8-17 area(s) 2 ity of 00:00: (two) [place] 00 times Medical daily. Branch mupirocin 2 2021-0 Yes [id number] Apply to Univers % ointment 8-17 area(s) 2 ity of 00:00: (two) [place] 00 times Medical daily. Branch mupirocin 2 2021-0 Yes [id number] Apply to Univers % ointment 8-17 area(s) 2 ity of 00:00: (two) [place] 00 times Medical daily. Branch mupirocin 2 2021-0 Yes [id number] Apply to Univers % ointment 8-17 area(s) 2 ity of 00:00: (two) [place] 00 times Medical daily. Branch mupirocin 2 2021-0 Yes [id number] Apply to Univers % ointment 8-17 area(s) 2 ity of 00:00: (two) [place] 00 times Medical daily. Branch CARVEDILOL Yes [id number] 25mg TAKE 1 Univers 25 mg 7-12 TABLET BY ity of tablet 00:00: MOUTH 2 [place] (TWO) Medical TIMES Branch DAILY WITH MEALS. CARVEDILOL 2021-0 Yes [id number] 25mg TAKE 1 Univers 25 mg 7-12 TABLET BY ity of tablet 00:00: MOUTH 2 [place] (TWO) Medical TIMES Branch DAILY WITH MEALS. CARVEDILOL 2021-0 Yes [id number] 25mg TAKE 1 Univers 25 mg 7-12 TABLET BY ity of tablet 00:00: MOUTH 2 [place] (TWO) Medical TIMES Branch DAILY WITH MEALS. CARVEDILOL 2021-0 Yes [id number] 25mg TAKE 1 Univers 25 mg 7-12 TABLET BY ity of tablet 00:00: MOUTH 2 [place] (TWO) Medical TIMES Branch DAILY WITH MEALS. CARVEDILOL 2021-0 Yes [id number] 25mg TAKE 1 Univers 25 mg 7-12 TABLET BY ity of tablet 00:00: MOUTH 2 [place] (TWO) Medical TIMES Branch DAILY WITH MEALS. CARVEDILOL 2021-0 Yes [id number] 25mg TAKE 1 Univers 25 mg 7-12 TABLET BY ity of tablet 00:00: MOUTH [place] (TWO) Medical TIMES Branch DAILY WITH MEALS. CARVEDILOL 2021-0 Yes [id number] 25mg TAKE 1 Univers 25 mg 7-12 TABLET BY ity of tablet 00:00: MOUTH [place] (TWO) Medical TIMES Branch DAILY WITH MEALS. sodium 2021-0 Yes [id number] 1300mg Take 2 Un [place] bicarbonate 6-16 tablets by it y of 650 mg 00:00: mouth 2 [place] tablet 00 (two) Medical times Branch daily. sodium 2021-0 Yes [id number] 1300mg Take 2 [place] bicarbonate 6-16 tablets by it y of 650 mg 00:00: mouth 2 [place] tablet 00 (two) Medical times Branch daily. sodium 2021-0 2021- No [id number] 1300mg Take 2 U nivers bicarbonate 6-16 10-09 tablets by i ty of 650 mg 00:00: 00:00 mouth 2 [place] tablet 00 :00 (two) Medical times Branch daily. flash 0 Yes [id number] 1{each} 1 Each Uni vers glucose 6-13 every 2 ity of sensor 00:00: (two) [place] (FREESTYLE 00 weeks. Medical FOUZIA 2 Branch SENSOR) Kit flash 2022-0 Yes [id number] 1{each} 1 Each Uni vers glucose 6-13 daily. ity of scanning 00:00: [place] reader 00 Medical (FREESTYLE Branch FOUZIA 2 READER) Misc flash 2022-0 Yes [id number] 1{each} 1 Each Uni vers glucose 6-13 every 2 ity of sensor 00:00: (two) [place] (FREESTYLE weeks. Medical FOUZIA 2 Branch SENSOR) Kit flash 2022-0 Yes [id number] 1{each} 1 Each Uni vers glucose 6-13 daily. ity of scanning 00:00: [place] reader 00 Medical (FREESTYLE Branch FOUZIA 2 READER) Misc flash 2022-0 Yes [id number] 1{each} 1 Each Uni vers glucose 6-13 every 2 ity of sensor 00:00: (two) [place] (FREESTYLE weeks. Medical FOUZIA 2 Branch SENSOR) Kit flash 2022-0 Yes [id number] 1{each} 1 Each Uni vers glucose 6-13 daily. ity of scanning 00:00: [place] reader 00 Medical (FREESTYLE Branch FOUZIA 2 READER) Misc flash 2022-0 Yes [id number] 1{each} 1 Each Uni vers glucose 6-13 every 2 ity of sensor 00:00: (two) [place] (FREESTYLE weeks. Medical FOUZIA 2 Branch SENSOR) Kit flash 2022-0 Yes [id number] 1{each} 1 Each Uni vers glucose 6-13 daily. ity of scanning 00:00: [place] reader 00 Medical (FREESTYLE Branch FOUZIA 2 READER) Misc flash 2022-0 Yes [id number] 1{each} 1 Each Uni vers glucose 6-13 every 2 ity of sensor 00:00: (two) [place] (FREESTYLE weeks. Medical FOUZIA 2 Branch SENSOR) Kit flash 2022-0 Yes [id number] 1{each} 1 Each Uni vers glucose 6-13 daily. ity of scanning 00:00: [place] reader 00 Medical (FREESTYLE Branch FOUZIA 2 READER) Misc flash 2022-0 Yes [id number] 1{each} 1 Each Uni vers glucose 6-13 every 2 ity of sensor 00:00: (two) [place] (FREESTYLE weeks. Medical FOUZIA 2 Branch SENSOR) Kit flash 2022-0 Yes [id number] 1{each} 1 Each Uni vers glucose 6-13 daily. ity of scanning 00:00: [place] reader 00 Medical (FREESTYLE Branch FOUZIA 2 READER) Misc flash 2021-0 Yes [id number] 1{each} 1 Each Uni vers glucose 6-13 every 2 ity of sensor 00:00: (two) [place] (FREESTYLE 00 weeks. Medical FOUZIA 2 Branch SENSOR) Kit flash 2021-0 Yes [id number] 1{each} 1 Each Uni vers glucose 6-13 daily. ity of scanning 00:00: [place] reader 00 Medical (FREESTYLE Branch FOUZIA 2 READER) Misc insulin 0 Yes [id number] 40U inject 40 U nivers degludec 4-12 Units ity of (TRESIBA 00:00: [place] FLEXTOUCH 00 skin Medical U-200) 200 daily. Max Bra nch unit/mL (3 daily dose mL) InPn of 50 insulin 2021-0 Yes [id number] 40U inject 40 U nivers degludec 4-12 Units ity of (TRESIBA 00:00: under [place] FLEXTOUCH 00 skin Medical U-200) 200 daily. Max Bra nch unit/mL (3 daily dose mL) InPn of 50 insulin 2021-0 Yes [id number] 40U inject 40 U nivers degludec 4-12 Units ity of (TRESIBA 00:00: under [place] FLEXTOUCH 00 skin Medical U-200) 200 daily. Max Bra nch unit/mL (3 daily dose mL) InPn of 50 insulin 2021-0 Yes [id number] 40U inject 40 U nivers degludec 4-12 Units ity of (TRESIBA 00:00: under [place] FLEXTOUCH 00 skin Medical U-200) 200 daily. Max Bra nch unit/mL (3 daily dose mL) InPn of 50 insulin 2021-0 Yes [id number] 40U inject 40 U nivers degludec 4-12 Units ity of (TRESIBA 00:00: under [place] FLEXTOUCH 00 skin Medical U-200) 200 daily. Max Bra nch unit/mL (3 daily dose mL) InPn of 50 insulin 2021-0 Yes [id number] 40U inject 40 U nivers degludec 4-12 Units ity of (TRESIBA 00:00: under [place] FLEXTOUCH 00 skin Medical U-200) 200 daily. Max Bra nch unit/mL (3 daily dose mL) InPn of 50 insulin Yes [id number] 40U inject 40 U nivers degludec 4-12 Units ity of (TRESIBA 00:00: under [place] FLEXTOUCH 00 skin Medical U-200) 200 daily. Max Bra nch unit/mL (3 daily dose mL) InPn of 50 OZEMPIC 1 Yes [id number] 1mg INJECT 1 Univers mg/dose (4 4-11 MG UNDER ity o f mg/3 mL) 00:00: THE SKIN [place] PnIj 00 WEEKLY. Medical Branch OZPARNASSUS CAMPUSIC 1 Yes [id number] 1mg INJECT 1 Univers mg/dose (4 4-11 MG UNDER ity o f mg/3 mL) 00:00: THE SKIN [place] PnIj 00 WEEKLY. Medical Branch OZPARNASSUS CAMPUSIC 1 Yes [id number] 1mg INJECT 1 Univers mg/dose (4 4-11 MG UNDER ity o f mg/3 mL) 00:00: THE SKIN [place] PnIj 00 WEEKLY. Medical Branch OZPARNASSUS CAMPUSIC 1 Yes [id number] 1mg INJECT 1 Univers mg/dose (4 4-11 MG UNDER ity o f mg/3 mL) 00:00: THE SKIN [place] PnIj 00 WEEKLY. Medical Branch OZEMPIC 1 Yes [id number] 1mg INJECT 1 Univers mg/dose (4 4-11 MG UNDER ity o f mg/3 mL) 00:00: THE SKIN [place] PnIj 00 WEEKLY. Medical Branch OZEMPIC 1 Yes [id number] 1mg INJECT 1 Univers mg/dose (4 4-11 MG UNDER ity o f mg/3 mL) 00:00: THE SKIN [place] PnIj 00 WEEKLY. Medical Branch OZEMPIC 1 Yes [id number] 1mg INJECT 1 Univers mg/dose (4 4-11 MG UNDER ity o f mg/3 mL) 00:00: THE SKIN [place] PnIj 00 WEEKLY. Medical Branch EASY TOUCH Yes Univers ALCOHOL 2-02 ity of PREP PADS 00:00: [place] Pad 00 Medical Branch EASY TOUCH Yes Univers ALCOHOL 2-02 ity of PREP PADS 00:00: [place] Pad Medical Branch EASY TOUCH 2021-0 Yes Univers ALCOHOL 2-02 ity of PREP PADS 00:00: [facility] Medical Branch EASY TOUCH 2021-0 Yes Univers ALCOHOL 2-02 ity of PREP PADS 00:00: [place] [facility] Medical Branch EASY TOUCH 2021-0 Yes Univers ALCOHOL 2-02 ity of PREP PADS 00:00: [place] Medical Branch EASY TOUCH 2021-0 Yes Univers ALCOHOL 2-02 ity of PREP PADS 00:00: [place] [facility] Medical Branch EASY TOUCH 2021-0 Yes Univers ALCOHOL 2-02 ity of PREP PADS 00:00: [place] Medical Branch glipiZIDE 2020-06 Yes [id number] 10mg Take 1 [place] XL 10 mg 24 2-20 tablet by ity of hr tablet 00:00: mouth 2 (two) Medical times Branch daily. glipiZIDE 2020-06 Yes [id number] 10mg Take 1 [place] XL 10 mg 24 2-20 tablet by ity of hr tablet 00:00: mouth 2 (two) Medical times Branch daily. glipiZIDE 2020-06- No [id number] 10mg Take 1 U nivers XL 10 mg 24 2-20 10-09 tablet by it y of hr tablet 00:00: 00:00 mouth 2 [place] 00 :00 (two) Medical times Branch daily. benztropine 2020-06 Yes .5mg Take 0.5 [place] 1 mg tablet 1-04 tablets by it y of 00:00: mouth 2 (two) Medical times Branch daily. amLODIPine 2020-06 Yes [id number] 10mg Take 1 [place] 10 mg 1-04 tablet by ity of tablet 00:00: mouth at [place] bedtime. Medical Branch benztropine 2020-06 Yes .5mg Take 0.5 [place] 1 mg tablet 1-04 tablets by it y of 00:00: mouth 2 (two) Medical times Branch daily. amLODIPine 2020-06 Yes [id number] 10mg Take 1 [place] 10 mg 1-04 tablet by ity of tablet 00:00: mouth at [place] bedtime. Medical Branch benztropine 2020-06 Yes .5mg Take 0.5 [place] 1 mg tablet 1-04 tablets by it y of 00:00: mouth 2 (two) Medical times Branch daily. amLODIPine 2020-06 Yes [id number] 10mg Take 1 [place] 10 mg 1-04 tablet by ity of tablet 00:00: mouth at [place] bedtime. Medical Branch benztropine 2020-06 Yes .5mg Take 0.5 [place] 1 mg tablet 1-04 tablets by it y of 00:00: mouth 2 (two) Medical times Branch daily. amLODIPine 2020-06 Yes [id number] 10mg Take 1 [place] 10 mg 1-04 tablet by ity of tablet 00:00: mouth at [place] [address] bedtime. Medical Branch benztropine 2020-06 Yes .5mg Take 0.5 [place] 1 mg tablet 1-04 tablets by it y of 00:00: mouth 2 (two) Medical times Branch daily. amLODIPine 2020-06 Yes [id number] 10mg Take 1 [place] 10 mg 1-04 tablet by ity of tablet 00:00: mouth at [place] bedtime. Medical Branch benztropine 2020-06 Yes .5mg Take 0.5 [place] 1 mg tablet 1-04 tablets by it y of 00:00: mouth 2 () Medical times Branch daily. amLODIPine 2020-06 Yes [id number] 10mg Take 1 [place] 10 mg 1-04 tablet by ity of tablet 00:00: mouth at [place] bedtime. Medical Branch benztropine 2020-06 Yes .5mg Take 0.5 [place] 1 mg tablet 1-04 tablets by it y of 00:00: mouth 2 (two) Medical times Branch daily. amLODIPine 2020-06 Yes [id number] 10mg Take 1 [place] 10 mg 1-04 tablet by ity of tablet 00:00: mouth at [place] [address] bedtime. Medical Branch atorvastati 2020-06 Yes [id number] 40mg Take 1 Univers n (LIPITOR) 1-01 tablet by ity of 40 mg 00:00: mouth at [facility] 00 bedtime. Medical Branch atorvastati 2020-06 Yes [id number] 40mg Take 1 Univers n (LIPITOR) 1-01 tablet by ity of 40 mg 00:00: mouth at [place] tablet 00 bedtime. Medical Branch atorvastati 2020-06 Yes [id number] 40mg Take 1 Univers n (LIPITOR) 1-01 tablet by ity of 40 mg 00:00: mouth at [place] tablet 00 bedtime. Medical Branch atorvastati 2020-06 Yes [id number] 40mg Take 1 Univers n (LIPITOR) 1-01 tablet by ity of 40 mg 00:00: mouth at [place] tablet 00 bedtime. Medical Branch atorvastati 2020-06 Yes [id number] 40mg Take 1 Univers n (LIPITOR) 1-01 tablet by ity of 40 mg 00:00: mouth at [place] tablet 00 bedtime. Medical Branch atorvasta 2020-06 Yes [id number] 40mg Take 1 Univers n (LIPITOR) 1-01 tablet by ity of 40 mg 00:00: mouth at [place] tablet 00 bedtime. Medical Branch atorvasta 2020-06 Yes [id number] 40mg Take 1 Univers n (LIPITOR) 1-01 tablet by ity of 40 mg 00:00: mouth at [place] tablet 00 bedtime. Medical Branch amitriptyli Yes [id number] 10mg Take 1 Univers ne 10 mg 9-21 tablet by ity of tablet 00:00: mouth at [place] 00 bedtime. Medical Branch amitriptyli Yes [id number] 10mg Take 1 Univers ne 10 mg 9-21 tablet by ity of tablet 00:00: mouth at [place] 00 bedtime. Medical Branch amitriptyli Yes [id number] 10mg Take 1 Univers ne 10 mg 9-21 tablet by ity of tablet 00:00: mouth at [place] 00 bedtime. Medical Branch amitriptyli Yes [id number] 10mg Take 1 Univers ne 10 mg 9-21 tablet by ity of tablet 00:00: mouth at [place] 00 bedtime. Medical Branch amitriptyli Yes [id number] 10mg Take 1 Univers ne 10 mg 9-21 tablet by ity of tablet 00:00: mouth at [place] 00 bedtime. Medical Branch amitriptyli Yes [id number] 10mg Take 1 Univers ne 10 mg 9-21 tablet by ity of tablet 00:00: mouth at [place] 00 bedtime. Medical Branch amitriptyli Yes [id number] 10mg Take 1 Univers ne 10 mg 9-21 tablet by ity of tablet 00:00: mouth at [place] 00 bedtime. Medical Branch ADVAIR Yes [id number] INHALE 1 [facility] [place] DISKUS 9-03 PUFF BY ity of 250-50 00:00: MOUTH INTO [place] mcg/dose 00 THE LUNGS Medica l inhalation TWICE Branch disk DAILY ADVAIR Yes [id number] INHALE 1 [place] DISKUS 9-03 PUFF BY ity of 250-50 00:00: MOUTH INTO [place] mcg/dose 00 THE LUNGS Medica l inhalation TWICE Branch disk DAILY ADVAIR Yes [id number] INHALE 1 [place] DISKUS 9-03 PUFF BY ity of 250-50 00:00: MOUTH INTO [place] mcg/dose 00 THE LUNGS Medica l inhalation TWICE Branch disk DAILY ADVAIR Yes [id number] INHALE 1 [place] DISKUS 9-03 PUFF BY ity of 250-50 00:00: MOUTH INTO [place] mcg/dose 00 THE LUNGS Medica l inhalation TWICE Branch disk DAILY ADVAIR Yes [id number] INHALE 1 [place] DISKUS 9-03 PUFF BY ity of 250-50 00:00: MOUTH INTO [place] mcg/dose 00 THE LUNGS Medica l inhalation TWICE Branch disk DAILY ADVAIR Yes [id number] INHALE 1 [place] DISKUS 9-03 PUFF BY ity of 250-50 00:00: MOUTH INTO [place] mcg/dose 00 THE LUNGS Medica l inhalation TWICE Branch disk DAILY ADVAIR Yes [id number] INHALE 1 [place] DISKUS 9-03 PUFF BY ity of 250-50 00:00: MOUTH INTO [place] mcg/dose 00 THE LUNGS Medica l inhalation TWICE Branch disk DAILY ergocalcife Yes [id number] Take 1 Univers rol, 8-30 capsule by ity of vitamin d2, 00:00: mouth [place] 1,250 mcg 00 weekly. Medical (50,000 Branch unit) capsule pantoprazol Yes [id number] 40mg Take 1 Univers e 40 mg EC 8-30 tablet by ity of tablet 00:00: mouth [place] (two) Medical times Branch daily. Sennosides Yes [id number] 17.2mg Take 17.2 Univers 17.2 mg Tab 8-30 mg by ity of 00:00: mouth 2 [place] (two) Medical times Branch daily. albuterol Yes [id number] INHALE 2 Univers 90 8-30 PUFFS INTO ity of mcg/actuati 00:00: THE LUNGS [place] on inhaler 00 THREE Medical TIMES Branch DAILY NEEDED FOR SHORTNESS OF BREATH apixaban 0 Yes [id number] 5mg Take 1 Univers (ELIQUIS) 5 8-30 tablet by ity of mg tablet 00:00: mouth [place] (two) Medical times Branch daily. Indication s: atrial fibrillati on, a fib and DVT tamsulosin Yes [id number] .4mg Take 1 Univers 0.4 mg 24 8-30 capsule by ity of hr capsule 00:00: mouth 2 [facility] (two) Medical times Branch daily. ergocalcife Yes [id number] Take 1 Univers rol, 8-30 capsule by ity of vitamin d2, 00:00: mouth [place] 1,250 mcg 00 weekly. Medical (50,000 Branch unit) capsule pantoprazol Yes [id number] 40mg Take 1 Univers e 40 mg EC 8-30 tablet by ity of tablet 00:00: mouth [place] (two) Medical times Branch daily. Sennosides Yes [id number] 17.2mg Take 17.2 Univers 17.2 mg Tab 8-30 mg by ity of 00:00: mouth [place] (two) Medical times Branch daily. albuterol Yes [id number] INHALE 2 Univers 90 8-30 PUFFS INTO ity of mcg/actuati 00:00: [place] LUNGS [place] on inhaler 00 THREE Medical TIMES Branch DAILY NEEDED FOR SHORTNESS OF BREATH apixaban 0 Yes 1358 5mg Take 1 Univers (ELIQUIS) 5 8-30 tablet by ity of mg tablet 00:00: mouth [address] [place] [address] (two) Medical times Branch daily. Indication s: atrial fibrillati on, a fib and DVT tamsulosin Yes [id number] .4mg Take 1 [facility] 0.4 mg 24 8-30 capsule by [place]y of hr capsule 00:00: mouth [place] (two) Medical times Branch daily. ergocalcife Yes [id number] Take 1 Univers rol, 8-30 capsule by ity of vitamin d2, 00:00: mouth [place] 1,250 mcg 00 weekly. Medical (50,000 Branch unit) capsule pantoprazol Yes [id number] 40mg Take 1 Univers e 40 mg EC 8-30 tablet by ity of tablet 00:00: mouth 2 [place] (two) Medical times Branch daily. Sennosides Yes [id number] 17.2mg Take 17.2 [facility] 17.2 mg Tab 8-30 mg by ity of 00:00: mouth 2 [place] (two) Medical times Branch daily. albuterol Yes [id number] INHALE 2 Univers 90 8-30 PUFFS INTO ity of mcg/actuati 00:00: THE LUNGS [place] on inhaler 00 THREE Medical TIMES Branch DAILY NEEDED FOR SHORTNESS OF BREATH apixaban 0 Yes 1358 5mg Take 1 Univers (ELIQUIS) 5 8-30 tablet by ity of mg tablet 00:00: mouth 2 (two) Medical times Branch daily. Indication s: atrial fibrillati on, a fib and DVT ergocalcife 0 Yes [id number] Take 1 Univers rol, 8-30 capsule by ity of vitamin d2, 00:00: mouth [place] 1,250 mcg 00 weekly. Medical (50,000 Branch unit) capsule pantoprazol Yes [id number] 40mg Take 1 Univers e 40 mg EC 8-30 tablet by ity of tablet 00:00: mouth 2 [place] (two) Medical times Branch daily. Sennosides 0 Yes [id number] 17.2mg Take 17.2 [facility] 17.2 mg Tab 8-30 mg by ity of 00:00: mouth 2 [place] 00 (two) Medical times Branch daily. albuterol Yes [id number] INHALE 2 Univers 90 8-30 PUFFS INTO [...] atrial fibrillati on, a fib and DVT ergocalcife 2020-0 Yes [id number] Take 1 Univers rol, 8-30 capsule by ity of vitamin d2, 00:00: mouth [place] 1,250 mcg 00 weekly. Medical (50,000 Branch unit) capsule pantoprazol 2020-0 Yes [id number] 40mg Take 1 Univers e 40 mg EC 8-30 tablet by ity of tablet 00:00: mouth 2 [place] (two) Medical times Branch daily. Sennosides 2020-0 Yes [id number] 17.2mg Take 17.2 [facility] 17.2 mg Tab 8-30 mg by ity of 00:00: mouth 2 (two) Medical times Branch daily. albuterol 0 Yes [id number] INHALE 2 [facility] 90 8-30 PUFFS INTO ity of mcg/actuati 00:00: THE LUNGS [place] on inhaler 00 THREE Medical TIMES Branch DAILY NEEDED FOR SHORTNESS OF BREATH apixaban 2020-0 Yes 1358 5mg Take 1 Univers (ELIQUIS) 5 8-30 tablet by ity of mg tablet 00:00: mouth 2 [place] (two) Medical times Branch daily. Indication s: atrial fibrillati on, a fib and DVT ergocalcife 2020-0 Yes [id number] Take 1 Univers rol, 8-30 capsule by ity of vitamin d2, 00:00: mouth [place] 1,250 mcg 00 weekly. Medical (50,000 Branch unit) capsule pantoprazol 2020-0 Yes [id number] 40mg Take 1 Univers e 40 mg EC 8-30 tablet by ity of tablet 00:00: mouth 2 [place] 00 (two) Medical times Branch daily. Sennosides 2020-0 Yes [id number] 17.2mg Take 17.2 [facility] 17.2 mg Tab 8-30 mg by ity of 00:00: mouth 2 [place] 00 (two) Medical times Branch daily. albuterol Yes [id number] INHALE 2 [facility] 90 8-30 PUFFS INTO ity of mcg/actuati 00:00: THE LUNGS [place] on inhaler 00 THREE Medical TIMES Branch DAILY NEEDED FOR SHORTNESS OF BREATH apixaban 0 Yes 1358 5mg Take 1 Univers (ELIQUIS) 5 8-30 tablet by ity of mg tablet 00:00: mouth 2 [place] (two) Medical times Branch daily. Indication s: atrial fibrillati on, a fib and DVT ergocalcife Yes [id number] Take 1 Univers rol, 8-30 capsule by ity of vitamin d2, 00:00: mouth [place] 1,250 mcg 00 weekly. Medical (50,000 Branch unit) capsule pantoprazol Yes [id number] 40mg Take 1 Univers e 40 mg EC 8-30 tablet by ity of tablet 00:00: mouth 2 [place] (two) Medical times Branch daily. Sennosides Yes [id number] 17.2mg Take 17.2 Univers 17.2 mg Tab 8-30 mg by ity of 00:00: mouth 2 [place] (two) Medical times Branch daily. albuterol Yes [id number] INHALE 2 Univers 90 8-30 PUFFS INTO ity of mcg/actuati 00:00: THE LUNGS [place] on inhaler 00 THREE Medical TIMES Branch DAILY NEEDED FOR SHORTNESS OF BREATH apixaban Yes 1358 5mg Take 1 Univers (ELIQUIS) 5 8-30 tablet by ity of mg tablet 00:00: mouth 2 [place] (two) Medical times Branch daily. Indication s: atrial fibrillati on, a fib and DVT tamsulosin 2022- No [id number] .4mg Take 1 [facility] 0.4 mg 24 8-30 10-09 capsule by ity of hr capsule 00:00: 00:00 mouth 2 [place] 00 :00 (two) Medical times Branch daily. divalproex 0 Yes 1500mg Take 1,500 Univers ER 500 mg 7-01 mg by ity of 24 hr 00:00: mouth at [place] tablet 00 bedtime. Medical Take 3 Branch [...] tablet 00 Medical Branch Gauze 0 Yes [id number] Use as Unive rs Bandage 5-26 directed ity of (KERLIX) 4 00:00: [place] X 4 " Spge 00 Medical Branch Gauze 0 Yes [id number] Use as Unive rs Bandage 5-26 directed ity of (KERLIX) 4 00:00: [place] X 4 " Spge 00 Medical Branch Gauze 0 Yes [id number] Use as Unive rs Bandage 5-26 directed ity of (KERLIX) 4 00:00: [place] X 4 " Spge 00 Medical Branch Gauze Yes [id number] Use as Unive rs Bandage 5-26 directed ity of (KERLIX) 4 00:00: [place] X 4 " Spge 00 Medical Branch Gauze 0 Yes [id number] Use as Unive rs Bandage 5-26 directed ity of (KERLIX) 4 00:00: [place] X 4 " Spge 00 Medical Branch Gauze 0 Yes [id number] Use as Unive rs Bandage 5-26 directed ity of (KERLIX) 4 00:00: [place] X 4 " Spge 00 Medical Branch Gauze 0 Yes [id number] Use as Unive rs Bandage 5-26 directed ity of (KERLIX) 4 00:00: [place] X 4 " Spge 00 Medical Branch Insulin 0 Yes USE [facility] [place], 3-15 DIRECTED ity of Disposable, 00:00: THREE [place] (PEN 00 TIMES Medical NEEDLE) 31 DAILY TO Branc h gauge x INJECT 3/16" Ndle INSULIN Insulin Yes USE [facility] [place], 3-15 DIRECTED ity of Disposable, 00:00: THREE [place] (PEN 00 TIMES Medical NEEDLE) 31 DAILY TO Branc h gauge x INJECT 3/16" Ndle INSULIN Insulin 2020-0 Yes USE [facility] [place], 3-15 DIRECTED ity of Disposable, 00:00: THREE [place] (PEN 00 TIMES Medical NEEDLE) 31 DAILY TO Branc h gauge x INJECT 3/16" Ndle INSULIN Insulin 2020-0 Yes USE [facility] [place], 3-15 DIRECTED ity of Disposable, 00:00: THREE [place] (PEN 00 TIMES Medical NEEDLE) 31 DAILY TO Branc h gauge x INJECT 3/16" Ndle INSULIN Insulin Yes USE [facility] [place], 3-15 DIRECTED ity of Disposable, 00:00: THREE [place] (PEN 00 TIMES Medical NEEDLE) 31 DAILY TO Branc h gauge x INJECT 3/16" Ndle INSULIN Insulin Yes USE [facility] [place], 3-15 DIRECTED ity of Disposable, 00:00: THREE [place] (PEN 00 TIMES Medical NEEDLE) 31 DAILY TO Branc h gauge x INJECT 3/16" Ndle INSULIN Insulin Yes USE [facility] [place], 3-15 DIRECTED ity of Disposable, 00:00: THREE [place] (PEN 00 TIMES Medical NEEDLE) 31 DAILY TO Branc h gauge x INJECT 3/16" N[facility] Univ ers iodine 7-20 pain of topically ity o f (IODOSORB) 00:00: right foot to [place] 0.9% gel 00 affected MD area(s) [place] every n other day. [facility] Yes Chronic Apply Univ ers iodine 7-20 pain of topically ity o f (IODOSORB) 00:00: right foot to [place] 0.9% gel 00 affected MD area(s) [place] every n other day. [facility] Yes Chronic Apply Univ ers iodine 7-20 pain of topically ity o f (IODOSORB) 00:00: right foot to [place] 0.9% gel 00 affected MD area(s) [place] every n other day. [facility] Yes Chronic Apply Univ ers iodine 7-20 pain of topically ity o f (IODOSORB) 00:00: right foot to [place] 0.9% gel 00 affected MD area(s) [place] every n other day. [facility] Yes Chronic Apply Univ ers iodine 7-20 pain of topically ity o f (IODOSORB) 00:00: right foot to [place] 0.9% gel 00 affected MD area(s) [place] every n other day. [facility] Yes Chronic Apply Univ ers iodine 7-20 pain of topically ity o f (IODOSORB) 00:00: right foot to [place] 0.9% gel 00 affected MD area(s) [place] every n other day. [facility] cadexomer Yes Chronic Apply Univ ers iodine 7-20 pain of topically ity o f (IODOSORB) 00:00: right foot to [place] 0.9% gel 00 affected MD area(s) [place] every n other day. [facility] benztropine Yes .5mg Take 0.5 Un [place] (COGENTIN) 7-19 mg by ity of 0.5 mg 10:59: mouth [place] tablet 33 twice MD daily. [facility] HYDROcodone Yes 1{tbl} Take 1 Un [place] -acetaminop 7-19 tablet by ity of hen (NORCO) 10:59: mouth 3 [place] 10 mg-325 33 (three) MD mg per times a [place] tablet day. [facility] apixaban Yes deep venous 5mg Take 5 mg Univers (ELIQUIS) 5 7-19 thrombosis by mouth ity of mg tablet 10:59: twice [place] 33 daily. [place] [facility] benztropine Yes .5mg Take 0.5 Un [place] (COGENTIN) 7-19 mg by ity of 0.5 mg 10:59: mouth [place] tablet 33 twice MD daily. [facility] HYDROcodone Yes 1{tbl} Take 1 Un [place] -acetaminop 7-19 tablet by ity of hen (NORCO) 10:59: mouth 3 [place] 10 mg-325 33 (three) MD mg per times a [place] tablet day. [facility] benztropine Yes .5mg Take 0.5 Un [place] (COGENTIN) 7-19 mg by ity of 0.5 mg 10:59: mouth [place] tablet 33 twice MD daily. [facility] HYDROcodone Yes 1{tbl} Take 1 Un [place] -acetaminop 7-19 tablet by ity of hen (NORCO) 10:59: mouth 3 [place] 10 mg-325 33 (three) MD mg per times a [place] tablet day. [facility] apixaban 2019-0 Yes deep venous 5mg Take 5 mg Univers (ELIQUIS) 5 7-19 thrombosis by mouth ity of mg tablet 10:59: twice [place] 33 daily. [place] [facility] apixaban Yes deep venous 5mg Take 5 mg Univers (ELIQUIS) 5 7-19 thrombosis by mouth ity of mg tablet 10:59: twice [place] 33 daily. [place] [facility] benztropine Yes .5mg Take 0.5 Un [place] (COGENTIN) 7-19 mg by ity of 0.5 mg 10:59: mouth [place] tablet 33 twice MD daily. [facility] HYDROcodone Yes 1{tbl} Take 1 Un [place] -acetaminop 7-19 tablet by ity of hen (NORCO) 10:59: mouth 3 [place] 10 mg-325 33 (three) MD mg per times a [place] tablet day. [facility] apixaban Yes deep venous 5mg Take 5 mg Univers (ELIQUIS) 5 7-19 thrombosis by mouth ity of mg tablet 10:59: twice [place] 33 daily. [place] [facility] benztropine Yes .5mg Take 0.5 Un [place] (COGENTIN) 7-19 mg by ity of 0.5 mg 10:59: mouth [place] tablet 33 twice MD daily. [facility] HYDROcodone Yes 1{tbl} Take 1 Un [place] -acetaminop 7-19 tablet by ity of hen (NORCO) 10:59: mouth 3 [place] 10 mg-325 33 (three) MD mg per times a [place] tablet day. [facility] apixaban Yes deep venous 5mg Take 5 mg Univers (ELIQUIS) 5 7-19 thrombosis by mouth ity of mg tablet 10:59: twice [place] 33 daily. [place] [facility] benztropine Yes .5mg Take 0.5 Un [place] (COGENTIN) 7-19 mg by ity of 0.5 mg 10:59: mouth [place] tablet 33 twice MD daily. [facility] HYDROcodone Yes 1{tbl} Take 1 Un [place] -acetaminop 7-19 tablet by ity of hen (NORCO) 10:59: mouth 3 [place] 10 mg-325 33 (three) MD mg per times a [place] tablet day. [facility] apixaban Yes deep venous 5mg Take 5 mg Univers (ELIQUIS) 5 7-19 thrombosis by mouth ity of mg tablet 10:59: twice [place] 33 daily. [place] [facility] benztropine Yes .5mg Take 0.5 Un [place] (COGENTIN) 7-19 mg by ity of 0.5 mg 10:59: mouth [place] tablet 33 twice [facility] daily. [facility] HY[facility] Yes 1{tbl} Take 1 Un [place] -acetaminop 7-19 tablet by ity of hen (NORCO) 10:59: mouth 3 [place] 10 mg-325 33 (three) MD mg per times a [place] tablet day. [facility] apixaban Yes deep venous 5mg Take 5 mg Univers (ELIQUIS) 5 7-19 thrombosis by mouth ity of mg tablet 10:59: twice [place] 33 daily. [place] [facility] metoprolol Yes Chronic 25mg Take 1 Un [place] tartrate 7-19 pain of tablet (25 it y of (LOPRESSOR) 00:00: right foot mg) by [place] 25 mg 00 mouth MD tablet twice [place] daily. [facility] risperiDONE Yes Chronic 4mg Take 1 U nivers (RisperDAL) 7-19 pain of tablet (4 ity of 4 mg tablet 00:00: right foot mg) by [place] 00 mouth at MD bedtime. [place] [facility] collagenase Yes Chronic Apply Un [place] (SANTYL) 7-19 pain of topically ity of ointment 00:00: right foot to [place] 00 affected MD area(s) [place] daily. [facility] polyethylen Yes Chronic 17g Take 17 g Univers e glycol 7-19 pain of by mouth ity of (MIRALAX) 00:00: right foot daily. Can [place] 17 g packet 00 get over MD the [place] counter [facility] senna-docus Yes Chronic 2{tbl} Take 2 Univers ate 7-19 pain of tablets by ity of (SENOKOT-S) 00:00: right foot mouth [place] 8.6 mg-50 00 twice MD mg tablet daily. Can Elio rso get over n the Cancer [facility] divalproex Yes Chronic 750mg Take 3 U nivers (DEPAKOTE) 7-19 pain of tablets ity of 250 mg 24 00:00: right foot (750 mg) [place] hr tablet 00 by [facility] NOVOLIN Yes Type 2 Inject 35 Uni [...] mg) by [place] 00 mouth MD daily. [facility] metoprolol Yes Chronic 25mg Take 1 Un [place] tartrate 7-19 pain of tablet (25 it y of (LOPRESSOR) 00:00: right foot mg) by [place] 25 mg 00 mouth MD tablet twice [place] daily. [facility] risperiDONE Yes Chronic 4mg Take 1 U nivers (RisperDAL) 7-19 pain of tablet (4 ity of 4 mg tablet 00:00: right foot mg) by [place] 00 mouth at MD bedtime. [facility] collagenase Yes Chronic Apply Un [place] (SANTYL) 7-19 pain of topically ity of ointment 00:00: right foot to [place] 00 affected MD area(s) [place] daily. [facility] polyethylen Yes Chronic 17g Take 17 g Univers e glycol 7-19 pain of by mouth ity of (MIRALAX) 00:00: right foot daily. Can [place] 17 g packet 00 get over MD the [place] counter [facility] senna-docus Yes Chronic 2{tbl} Take 2 Univers ate 7-19 pain of tablets by ity of (SENOKOT-S) 00:00: right foot mouth [place] 8.6 mg-50 00 twice MD mg tablet daily. Can Eloi rso get over n the Cancer [facility] divalproex Yes Chronic 750mg Take 3 U nivers (DEPAKOTE) 7-19 pain of tablets ity of 250 mg 24 00:00: right foot (750 mg) [place] hr tablet 00 by mouth MD at [place] bedtime. [facility] [place] NOVOLIN Yes Type 2 Inject 35 Uni [...] mg) by [place] 00 mouth MD daily. [facility] metoprolol Yes Chronic 25mg Take 1 Un [place] tartrate 7-19 pain of tablet (25 it y of (LOPRESSOR) 00:00: right foot mg) by [place] 25 mg 00 mouth MD tablet twice [place] daily. [facility] [place] risperiDONE Yes Chronic 4mg Take 1 U nivers (RisperDAL) 7-19 pain of tablet (4 ity of 4 mg tablet 00:00: right foot mg) by [place] 00 mouth at MD bedtime. [facility] collagenase Yes Chronic Apply Un [place] (SANTYL) 7-19 pain of topically ity of ointment 00:00: right foot to [place] 00 affected MD area(s) [place] daily. [facility] polyethylen Yes Chronic 17g Take 17 g Univers e glycol 7-19 pain of by mouth ity of (MIRALAX) 00:00: right foot daily. Can [place] 17 g packet 00 get over MD the [place] counter [facility] senna-docus Yes Chronic 2{tbl} Take 2 Univers ate 7-19 pain of tablets by ity of (SENOKOT-S) 00:00: right foot mouth [place] 8.6 mg-50 00 twice MD mg tablet daily. Can Elio rso get over n the Cancer [facility] [place] divalproex Yes Chronic 750mg Take 3 U nivers (DEPAKOTE) 7-19 pain of tablets ity of 250 mg 24 00:00: right foot (750 mg) [place] hr tablet 00 by mouth MD at [place] bedtime. [facility] [place] NOVOLIN Yes Type 2 Inject 35 Uni [...] mg) by [place] 00 mouth MD daily. [facility] metoprolol Yes Chronic 25mg Take 1 Un [place] tartrate 7-19 pain of tablet (25 it y of (LOPRESSOR) 00:00: right foot mg) by [place] 25 mg 00 mouth MD tablet twice [place] daily. [facility] risperiDONE Yes Chronic 4mg Take 1 U nivers (RisperDAL) 7-19 pain of tablet (4 ity of 4 mg tablet 00:00: right foot mg) by [place] 00 mouth at MD bedtime. [facility] collagenase Yes Chronic Apply Un [place] (SANTYL) 7-19 pain of topically ity of ointment 00:00: right foot to [place] 00 affected MD area(s) [place] daily. [facility] polyethylen Yes Chronic 17g Take 17 g Univers e glycol 7-19 pain of by mouth ity of (MIRALAX) 00:00: right foot daily. Can [place] 17 g packet 00 get over MD the [place] counter [facility] senna-docus Yes Chronic 2{tbl} Take 2 Univers ate 7-19 pain of tablets by ity of (SENOKOT-S) 00:00: right foot mouth [place] 8.6 mg-50 00 twice MD mg tablet daily. Can [place] r[place] get over the Cancer [facility] [place] divalproex Yes Chronic 750mg Take 3 U nivers (DEPAKOTE) 7-19 pain of tablets ity of 250 mg 24 00:00: right foot (750 mg) [place] hr tablet 00 by mouth at [place] bedtime. [facility] NOVOLIN [...] [place] 00 mouth MD daily. [place] [facility] [place] metoprolol Yes Chronic 25mg Take 1 Un [place] tartrate 7-19 pain of tablet (25 it y of (LOPRESSOR) 00:00: right foot mg) by [place] 25 mg 00 mouth MD tablet twice [place] daily. n [facility] [place] risperiDONE Yes Chronic 4mg Take 1 U nivers (RisperDAL) 7-19 pain of tablet (4 ity of 4 mg tablet 00:00: right foot mg) by [place] 00 mouth at MD bedtime. [facility] collagenase Yes Chronic Apply Un [place] (SANTYL) 7-19 pain of topically ity of ointment 00:00: right foot to [place] 00 affected MD area(s) [place] daily. [facility] [place] polyethylen Yes Chronic 17g Take 17 g Univers e glycol 7-19 pain of by mouth ity of (MIRALAX) 00:00: right foot daily. Can [place] 17 g packet 00 get over MD the [place] counter [facility] [place] senna-docus Yes Chronic 2{tbl} Take 2 Univers ate 7-19 pain of tablets by ity of (SENOKOT-S) 00:00: right foot mouth [place] 8.6 mg-50 00 twice MD mg tablet daily. Can [place] r[place] get over the Cancer [facility] [place] divalproex Yes Chronic 750mg Take 3 U nivers (DEPAKOTE) 7-19 pain of tablets ity of 250 mg 24 00:00: right foot (750 mg) [place] hr tablet 00 by mouth MD at [place] bedtime. n [facility] [place] NOVOLIN Yes Type 2 Inject 35 Uni [...] mg) by [place] 00 mouth MD daily. [facility] [place] metoprolol Yes Chronic 25mg Take 1 Un [place] tartrate 7-19 pain of tablet (25 it y of (LOPRESSOR) 00:00: right foot mg) by [place] 25 mg 00 mouth MD tablet twice [place] daily. [facility] [place] risperiDONE Yes Chronic 4mg Take 1 U nivers (RisperDAL) 7-19 pain of tablet (4 ity of 4 mg tablet 00:00: right foot mg) by [place] 00 mouth at MD bedtime. [facility] [place] collagenase Yes Chronic Apply Un [place] (SANTYL) 7-19 pain of topically ity of ointment 00:00: right foot to [place] 00 affected MD area(s) [place] daily. [facility] [place] polyethylen Yes Chronic 17g Take 17 g Univers e glycol 7-19 pain of by mouth ity of (MIRALAX) 00:00: right foot daily. Can [place] 17 g packet 00 get over MD the [place] counter [facility] [place] senna-docus Yes Chronic 2{tbl} Take 2 Univers ate 7-19 pain of tablets by ity of (SENOKOT-S) 00:00: right foot mouth [place] 8.6 mg-50 00 twice MD mg tablet daily. Can [place]io r[place] get over the Cancer [facility] [place] divalproex Yes Chronic 750mg Take 3 U nivers (DEPAKOTE) 7-19 pain of tablets ity of 250 mg 24 00:00: right foot (750 mg) [place] hr tablet 00 by mouth MD at [place] bedtime. [facility] [place] NOVOLIN Yes Type 2 Inject 35 Uni vers 70/30 U-100 7-19 diabetes units ity of INSULIN 100 00:00: mellitus before [place] unit/mL 00 with foot breakfast (70-30) ulcer and 20 [place] injection units n before Cancer dinner. Center HOLD if sugar is less than 100 losartan Yes Chronic 25mg Take 1 Univ ers (COZAAR) 25 7-19 pain of tablet (25 ity of mg tablet 00:00: right foot mg) by [place] 00 mouth MD daily. [facility] metoprolol Yes Chronic 25mg Take 1 Un [place] tartrate 7-19 pain of tablet (25 it y of (LOPRESSOR) 00:00: right foot mg) by [place] 25 mg 00 mouth MD tablet twice [place] daily. [facility] risperiDONE Yes Chronic 4mg Take 1 U nivers (RisperDAL) 7-19 pain of tablet (4 ity of 4 mg tablet 00:00: right foot mg) by [place] 00 mouth at MD bedtime. [facility] collagenase Yes Chronic Apply Un [place] (SANTYL) 7-19 pain of topically ity of ointment 00:00: right foot to [place] 00 affected MD area(s) [place] daily. [facility] polyethylen Yes Chronic 17g Take 17 g Univers e glycol 7-19 pain of by mouth ity of (MIRALAX) 00:00: right foot daily. Can [place] 17 g packet 00 get over MD the Anderso counter [facility] senna-docus Yes Chronic 2{tbl} Take 2 Univers ate 7-19 pain of tablets by ity of (SENOKOT-S) 00:00: right foot mouth [place] 8.6 mg-50 00 twice MD mg tablet daily. Can Elio rso get over the Cancer [facility] divalproex Yes Chronic 750mg Take 3 U nivers (DEPAKOTE) 7-19 pain of tablets ity of 250 mg 24 00:00: right foot (750 mg) [place] hr tablet 00 by mouth [facility] bed[facility]. [facility] NOVOLIN Yes Type 2 Inject 35 Uni [...] mg tablet 00:00: right foot mg) by [place] 00 mouth MD daily. [place] n [facility] Yes Chronic 500mg Take 1 Univers ol 7-18 pain tablet ity of (ROBAXIN) 00:00: (500 mg) [place] 500 mg 00 by mouth MD tablet every 8 [place] (eight) n hours. [facility] Yes Chronic 500mg Take 1 Univers ol 7-18 pain tablet ity of (ROBAXIN) 00:00: (500 mg) [place] 500 mg 00 by mouth MD tablet every 8 [place] (eight) n hours. [facility] Yes Chronic 500mg Take 1 Univers ol 7-18 pain tablet ity of (ROBAXIN) 00:00: (500 mg) [place] 500 mg 00 by mouth MD tablet every 8 [place] (eight) n hours. [facility] Yes Chronic 500mg Take 1 Univers ol 7-18 pain tablet ity of (ROBAXIN) 00:00: (500 mg) [place] 500 mg 00 by mouth MD tablet every 8 [place] (eight) n hours. [facility] Yes Chronic 500mg Take 1 Univers ol 7-18 pain tablet ity of (ROBAXIN) 00:00: (500 mg) [place] 500 mg 00 by mouth MD tablet every 8 [place] (eight) n hours. [facility] Yes Chronic 500mg Take 1 Univers ol 7-18 pain tablet ity of (ROBAXIN) 00:00: (500 mg) [place] 500 mg 00 by mouth MD tablet every 8 [place] (eight) n hours. [facility] Yes Chronic 500mg Take 1 Univers ol 7-18 pain tablet ity of (ROBAXIN) 00:00: (500 mg) [place] 500 mg 00 by mouth MD tablet every 8 [place] (eight) n hours. [facility] Uri Grewal Yes [place] Inject 1.8 C ommon [place] mg/day [facility] Albuterol Albuterol Yes [place] 1 puff as Common Sulfate HFA Sulfate HFA Dietrich needed [facility] Duloxetine Duloxetine Yes [place] 1 capsule Common HCl HCl Dietrich [facility] Clonazepam Clonazepam Yes [place] 1 tablet Common Dietrich at bedtime [facility] NovoLIN NovoLIN Yes [place] Inject 65 Co mmon 70/30 70/30 [place] units Spirit FlexPen FlexPen [facility] Tramadol Tramadol Yes [place] 1 tablet C ommon HCl HCl [place] as needed [facility] Hydrocodone Hydrocodone Yes [place] 1 tablet Common -Acetaminop -Acetaminop [place] as needed [facility] hen hen [facility] Eliquis Eliquis Yes [place]ain TAKE 1 Commo n Dietrich TABLET BY [facility] MOUTH [facility] TWICE [facility] Benztropine Benztropine Yes [place] 1 tablet Common Mesylate Mesylate Dietrich at bedtime [facility] Amphetamine Amphetamine Yes [place] 1 tablet Common -Dextroamph -Dextroamph Dietrich [facility] etamine etamine [facility] Risperidone Risperidone Yes [place] 1 tablet Common Dietrich [facility] Metoprolol Metoprolol Yes [place] 1 tablet Common Tartrate Tartrate Dietrich with food S pirit [facility] Losartan Losartan Yes Sylvain 1 tablet C ommon Potassium Potassium Dietrich [facility] Divalproex Divalproex Yes Sylvain 1 tablet Common Sodium ER Sodium ER Dietrich [facility] BusPIRone BusPIRone Yes Sylvain 1 tablet Common HCl HCl Dietrich [facility] Pen [place] Pen [place] Yes Sylvain N/s Common Dietrich [facility] Atorvastati Atorvastati Yes Sylvain 1 tablet Common n Calcium n Calcium Dietrich [facility] Advair Advair Yes Sylvain 1 puff Common Diskus Diskus Dietrich [facility] True Metrix True Metrix Yes Sylvain USE TO Common Blood Blood Dietrich TEST BLOOD Spirit Glucose Glucose SUGAR 1-2 - CH I Test Test TIMES St EVERY DAY [facility] NovoLIN NovoLIN Yes Sylvain INJECT Commo n 70/30 70/30 Dietrich SUBQUTANEO [facility] FlexPen FlexPen USLY 65 - CHI UNITS TWICE [facility] UltiCare UltiCare Yes Sylvain USE ONE Co mmon Micro Pen Micro Pen Dietrich NEEDLE Sp kwame [place] THREE - CHI TIMES St DAILY WITH [facility] NOVOLIN FLEXPEN Risperidone Risperidone No 1{table QD Risperidon 4 MG 4 MG t} e 4 MG Clonazepam Clonazepam No 1{table QD Clonazepam 0.5 MG 0.5 MG t_at_be 0.5 MG dtime} Benztropine Benztropine No 1{table QD Benztropin Mesylate Mesylate t_at_be e Mesylate 0.5 MG 0.5 MG dtime} 0.5 MG Atorvastati Atorvastati No 1{table QD Atorvastat n Calcium n Calcium t} in Calcium 40 MG 40 MG 40 MG tiCare tiCare No tiCare Micro Pen Micro Pen Micro Pen [place] 32G [place] 32G [place] X 4 MM X 4 MM 32G X 4 MM NovoLIN NovoLIN No NovoLIN 70/30 70/30 70/30 FlexPen FlexPen FlexPen (70-30) 100 (70-30) 100 (70-30) UNIT/ML UNIT/ML 100 UNIT/ML NovoLIN NovoLIN No BID NovoLIN 70/30 70/30 70/30 FlexPen FlexPen FlexPen (70-30) 100 (70-30) 100 (70-30) UNIT/ML UNIT/ML 100 UNIT/ML Victoza 18 Victoza 18 No QD Victoza 18 MG/3ML MG/3ML MG/3ML Albuterol Albuterol No 1{puff_ 6xD Albuterol Sulfate HFA Sulfate HFA as_need Sulfate 108 (90 108 (90 ed} HFA 108 Base) Base) (90 Base) MCG/ACT MCG/ACT MCG/ACT Hydrocodone Hydrocodone No 1{table QID Hydrocodon -Acetaminop -Acetaminop t_as_ne e-Acetamin hen 10-325 hen 10-325 eded} ophen MG MG 10-325 MG Metoprolol Metoprolol No 1{table BID Metoprolol Tartrate 50 Tartrate 50 t_with_ Tartrate MG MG food} 50 MG Tramadol Tramadol No 1{table QD Tramadol HCl 50 MG HCl 50 MG t_as_ne HCl 50 MG eded} Eliquis 5 Eliquis 5 No Eliquis 5 MG MG MG Amphetamine Amphetamine No 1{table BID Amphetamin -Dextroamph -Dextroamph t} e-Dextroam etamine 30 etamine 30 phetamine MG MG 30 MG Pen [place] Pen [place] No QD Pen 32G x 4 mm 32G x 4 mm [place] /6" 06/14" 32G x 4 mm 06/14" True Metrix True Metrix No True Blood Blood Metrix Glucose Glucose Blood Test - Test - Glucose Test - UltiCare UltiCare No UltiCare Micro Pen Micro Pen Micro Pen [place] 32G [place] 32G [place] X 4 MM X 4 MM 32G X 4 MM Tramadol Tramadol No 1{table QD Tramadol HCl 50 MG HCl 50 MG t_as_ne HCl 50 MG eded} Losartan Losartan No 1{table QD Losartan Potassium Potassium t} Potassium 50 MG 50 MG 50 MG Advair Advair No 1{puff} BID Advair Diskus Diskus Diskus 250-50 250-50 250-50 MCG/DOSE MCG/DOSE MCG/DOSE BusPIRone BusPIRone No 1{table BID BusPIRone HCl 10 MG HCl 10 MG t} HCl 10 MG Atorvastati Atorvastati No 1{table QD Atorvastat n Calcium n Calcium t} in Calcium 40 MG 40 MG 40 MG Duloxetine Duloxetine No 1{capsu QD Duloxetine HCl 60 MG HCl 60 MG le} HCl 60 MG Amphetamine Amphetamine No 1{table BID Amphetamin -Dextroamph -Dextroamph t} e-Dextroam etamine 30 etamine 30 phetamine MG MG 30 MG Pen [place] Pen [place] No QD Pen 32G x 4 mm 32G x 4 mm [place] 06/14" 06/14" 32G x 4 mm 06/14" Risperidone Risperidone No 1{table QD Risperidon 4 MG 4 MG t} e 4 MG Eliquis 5 Eliquis 5 No Eliquis 5 MG MG MG Albuterol Albuterol No 1{puff_ 6xD Albuterol Sulfate HFA Sulfate HFA as_need Sulfate 108 (90 108 (90 ed} HFA 108 Base) Base) (90 Base) MCG/ACT MCG/ACT MCG/ACT Victoza 18 Victoza 18 No QD Victoza 18 MG/3ML MG/3ML MG/3ML True Metrix True Metrix No True Blood Blood Metrix Glucose Glucose Blood Test - Test - Glucose Test - Divalproex Divalproex No 1{table QD Divalproex Sodium ER Sodium ER t} Sodium ER 500 MG 500 MG 500 MG Hydrocodone Hydrocodone No 1{table QID Hydrocodon -Acetaminop -Acetaminop t_as_ne e-Acetamin hen 10-325 hen 10-325 eded} ophen MG MG 10-325 MG NovoLIN NovoLIN No NovoLIN 70/30 70/30 70/30 FlexPen FlexPen FlexPen (70-30) 100 (70-30) 100 (70-30) UNIT/ML UNIT/ML 100 UNIT/ML Benztropine Benztropine No 1{table QD Benztropin Mesylate Mesylate t_at_be e Mesylate 0.5 MG 0.5 MG dtime} 0.5 MG Clonazepam Clonazepam No 1{table QD Clonazepam 0.5 MG 0.5 MG t_at_be 0.5 MG dtime} Metoprolol Metoprolol No 1{table BID Metoprolol Tartrate 50 Tartrate 50 t_with_ Tartrate MG MG food} 50 MG Victoza 18 Victoza 18 No QD Victoza 18 MG/3ML MG/3ML MG/3ML Eliquis 5 Eliquis 5 No Eliquis 5 MG MG MG Duloxetine Duloxetine No 1{capsu QD Duloxetine HCl 60 MG HCl 60 MG le} HCl 60 MG True Metrix True Metrix No True Blood Blood Metrix Glucose Glucose Blood Test - Test - Glucose Test - Benztropine Benztropine No 1{table QD Benztropin Mesylate Mesylate t_at_be e Mesylate 0.5 MG 0.5 MG dtime} 0.5 MG Risperidone Risperidone No 1{table QD Risperidon 4 MG 4 MG t} e 4 MG UltiCare UltiCare No UltiCare Micro Pen Micro Pen Micro Pen [place] 32G [place] 32G [place] X 4 MM X 4 MM 32G X 4 MM NovoLIN NovoLIN No NovoLIN 70/30 70/30 70/30 FlexPen FlexPen FlexPen (70-30) 100 (70-30) 100 (70-30) UNIT/ML UNIT/ML 100 UNIT/ML Amphetamine Amphetamine No 1{table BID Amphetamin -Dextroamph -Dextroamph t} e-Dextroam etamine 30 etamine 30 phetamine MG MG 30 MG Clonazepam Clonazepam No 1{table QD Clonazepam 0.5 MG 0.5 MG t_at_be 0.5 MG dtime} Albuterol Albuterol No 1{puff_ 6xD Albuterol Sulfate HFA Sulfate HFA as_need Sulfate 108 (90 108 (90 ed} HFA 108 Base) Base) (90 Base) MCG/ACT MCG/ACT MCG/ACT NovoLIN NovoLIN No BID NovoLIN 70/30 70/30 70/30 FlexPen FlexPen FlexPen (70-30) 100 (70-30) 100 (70-30) UNIT/ML UNIT/ML 100 UNIT/ML Metoprolol Metoprolol No 1{table BID Metoprolol Tartrate 50 Tartrate 50 t_with_ Tartrate MG MG food} 50 MG Advair Advair No 1{puff} BID Advair Diskus Diskus Diskus 250-50 250-50 250-50 MCG/DOSE MCG/DOSE MCG/DOSE BusPIRone BusPIRone No 1{table BID BusPIRone HCl 10 MG HCl 10 MG t} HCl 10 MG Hydrocodone Hydrocodone No 1{table QID Hydrocodon -Acetaminop -Acetaminop t_as_ne e-Acetamin hen 10-325 hen 10-325 eded} ophen MG MG 10-325 MG Losartan Losartan No 1{table QD Losartan Potassium Potassium t} Potassium 50 MG 50 MG 50 MG Pen [place] Pen [place] No QD Pen 32G x 4 mm 32G x 4 mm [place] 06/14" 06/14" 32G x 4 mm 06/14" Divalproex Divalproex No 1{table QD Divalproex Sodium ER Sodium ER t} Sodium ER 500 MG 500 MG 500 MG Tramadol Tramadol No 1{table QD Tramadol HCl 50 MG HCl 50 MG t_as_ne HCl 50 MG eded} Atorvastati Atorvastati No 1{table QD Atorvastat n Calcium n Calcium t} in Calcium 40 MG 40 MG 40 MG Victoza 18 Victoza 18 No QD Victoza 18 MG/3ML MG/3ML MG/3ML Eliquis 5 Eliquis 5 No Eliquis 5 MG MG MG Duloxetine Duloxetine No 1{capsu QD Duloxetine HCl 60 MG HCl 60 MG le} HCl 60 MG True Metrix True Metrix No True Blood Blood Metrix Glucose Glucose Blood Test - Test - Glucose Test - Benztropine Benztropine No 1{table QD Benztropin Mesylate Mesylate t_at_be e Mesylate 0.5 MG 0.5 MG dtime} 0.5 MG Risperidone Risperidone No 1{table QD Risperidon 4 MG 4 MG t} e 4 MG UltiCare UltiCare No UltiCare Micro Pen Micro Pen Micro Pen [place] 32G [place] 32G [place] X 4 MM X 4 MM 32G X 4 MM NovoLIN NovoLIN No NovoLIN 70/30 70/30 70/30 FlexPen FlexPen FlexPen (70-30) 100 (70-30) 100 (70-30) UNIT/ML UNIT/ML 100 UNIT/ML Amphetamine Amphetamine No 1{table BID Amphetamin -Dextroamph -Dextroamph t} e-Dextroam etamine 30 etamine 30 phetamine MG MG 30 MG Clonazepam Clonazepam No 1{table QD Clonazepam 0.5 MG 0.5 MG t_at_be 0.5 MG dtime} Albuterol Albuterol No 1{puff_ 6xD Albuterol Sulfate HFA Sulfate HFA as_need Sulfate 108 (90 108 (90 ed} HFA 108 Base) Base) (90 Base) MCG/ACT MCG/ACT MCG/ACT NovoLIN NovoLIN No BID NovoLIN 70/30 70/30 70/30 FlexPen FlexPen FlexPen (70-30) 100 (70-30) 100 (70-30) UNIT/ML UNIT/ML 100 UNIT/ML Metoprolol Metoprolol No 1{table BID Metoprolol Tartrate 50 Tartrate 50 t_with_ Tartrate MG MG food} 50 MG Advair Advair No 1{puff} BID Advair Diskus Diskus Diskus 250-50 250-50 250-50 MCG/DOSE MCG/DOSE MCG/DOSE BusPIRone BusPIRone No 1{table BID BusPIRone HCl 10 MG HCl 10 MG t} HCl 10 MG Hydrocodone Hydrocodone No 1{table QID Hydrocodon -Acetaminop -Acetaminop t_as_ne e-Acetamin hen 10-325 hen 10-325 eded} ophen MG MG 10-325 MG Losartan Losartan No 1{table QD Losartan Potassium Potassium t} Potassium 50 MG 50 MG 50 MG Pen [place] Pen [place] No QD Pen 32G x 4 mm 32G x 4 mm [place] /6" 6" 32G x 4 mm 06/14" Divalproex Divalproex No 1{table QD Divalproex Sodium ER Sodium ER t} Sodium ER 500 MG 500 MG 500 MG Tramadol Tramadol No 1{table QD Tramadol HCl 50 MG HCl 50 MG t_as_ne HCl 50 MG eded} Atorvastati Atorvastati No 1{table QD Atorvastat n Calcium n Calcium t} in Calcium 40 MG 40 MG 40 MG Victoza 18 Victoza 18 No QD Victoza 18 MG/3ML MG/3ML MG/3ML Eliquis 5 Eliquis 5 No Eliquis 5 MG MG MG Duloxetine Duloxetine No 1{capsu QD Duloxetine HCl 60 MG HCl 60 MG le} HCl 60 MG True Metrix True Metrix No True Blood Blood Metrix Glucose Glucose Blood Test - Test - Glucose Test - Benztropine Benztropine No 1{table QD Benztropin Mesylate Mesylate t_at_be e Mesylate 0.5 MG 0.5 MG dtime} 0.5 MG Risperidone Risperidone No 1{table QD Risperidon 4 MG 4 MG t} e 4 MG UltiCare UltiCare No UltiCare Micro Pen Micro Pen Micro Pen [place] 32G [place] 32G [place] X 4 MM X 4 MM 32G X 4 MM NovoLIN NovoLIN No NovoLIN 70/30 70/30 70/30 FlexPen FlexPen FlexPen (70-30) 100 (70-30) 100 (70-30) UNIT/ML UNIT/ML 100 UNIT/ML Amphetamine Amphetamine No 1{table BID Amphetamin -Dextroamph -Dextroamph t} e-Dextroam etamine 30 etamine 30 phetamine MG MG 30 MG Clonazepam Clonazepam No 1{table QD Clonazepam 0.5 MG 0.5 MG t_at_be 0.5 MG dtime} Albuterol Albuterol No 1{puff_ 6xD Albuterol Sulfate HFA Sulfate HFA as_need Sulfate 108 (90 108 (90 ed} HFA 108 Base) Base) (90 Base) MCG/ACT MCG/ACT MCG/ACT NovoLIN NovoLIN No BID NovoLIN 70/30 70/30 70/30 FlexPen FlexPen FlexPen (70-30) 100 (70-30) 100 (70-30) UNIT/ML UNIT/ML 100 UNIT/ML Metoprolol Metoprolol No 1{table BID Metoprolol Tartrate 50 Tartrate 50 t_with_ Tartrate MG MG food} 50 MG Advair Advair No 1{puff} BID Advair Diskus Diskus Diskus 250-50 250-50 250-50 MCG/DOSE MCG/DOSE MCG/DOSE BusPIRone BusPIRone No 1{table BID BusPIRone HCl 10 MG HCl 10 MG t} HCl 10 MG Hydrocodone Hydrocodone No 1{table QID Hydrocodon -Acetaminop -Acetaminop t_as_ne e-Acetamin hen 10-325 hen 10-325 eded} ophen MG MG 10-325 MG Losartan Losartan No 1{table QD Losartan Potassium Potassium t} Potassium 50 MG 50 MG 50 MG Pen [place] Pen [place] No QD Pen 32G x 4 mm 32G x 4 mm [place] /" 6" 32G x 4 mm 06/14" Divalproex Divalproex No 1{table QD Divalproex Sodium ER Sodium ER t} Sodium ER 500 MG 500 MG 500 MG Tramadol Tramadol No 1{table QD Tramadol HCl 50 MG HCl 50 MG t_as_ne HCl 50 MG eded} Atorvastati Atorvastati No 1{table QD Atorvastat n Calcium n Calcium t} in Calcium 40 MG 40 MG 40 MG Duloxetine Duloxetine No 1{capsu QD Duloxetine HCl 60 MG HCl 60 MG le} HCl 60 MG Advair Advair No 1{puff} BID Advair Diskus Diskus Diskus 250-50 250-50 250-50 MCG/DOSE MCG/DOSE MCG/DOSE BusPIRone BusPIRone No 1{table BID BusPIRone HCl 10 MG HCl 10 MG t} HCl 10 MG Losartan Losartan No 1{table QD Losartan Potassium Potassium t} Potassium 50 MG 50 MG 50 MG Divalproex Divalproex No 1{table QD Divalproex Sodium ER Sodium ER t} Sodium ER 500 MG 500 MG 500 MG Risperidone Risperidone No 1{table QD Risperidon 4 MG 4 MG t} e 4 MG Clonazepam Clonazepam No 1{table QD Clonazepam 0.5 MG 0.5 MG t_at_be 0.5 MG dtime} Benztropine Benztropine No 1{table QD Benztropin Mesylate Mesylate t_at_be e Mesylate 0.5 MG 0.5 MG dtime} 0.5 MG Atorvastati Atorvastati No 1{table QD Atorvastat n Calcium n Calcium t} in Calcium 40 MG 40 MG 40 MG UltiCare UltiCare No UltiCare Micro Pen Micro Pen Micro Pen [place] 32G [place] 32G [place] X 4 MM X 4 MM 32G X 4 MM NovoLIN NovoLIN No NovoLIN 70/30 70/30 70/30 FlexPen FlexPen FlexPen (70-30) 100 (70-30) 100 (70-30) UNIT/ML UNIT/ML 100 UNIT/ML NovoLIN NovoLIN No BID NovoLIN 70/30 70/30 70/30 FlexPen FlexPen FlexPen (70-30) 100 (70-30) 100 (70-30) UNIT/ML UNIT/ML 100 UNIT/ML Victoza 18 Victoza 18 No QD Victoza 18 MG/3ML MG/3ML MG/3ML Albuterol Albuterol No 1{puff_ 6xD Albuterol Sulfate HFA Sulfate HFA as_need Sulfate 108 (90 108 (90 ed} HFA 108 Base) Base) (90 Base) MCG/ACT MCG/ACT MCG/ACT Hydrocodone Hydrocodone No 1{table QID Hydrocodon -Acetaminop -Acetaminop t_as_ne e-Acetamin hen 10-325 hen 10-325 eded} ophen MG MG 10-325 MG Metoprolol Metoprolol No 1{table BID Metoprolol Tartrate 50 Tartrate 50 t_with_ Tartrate MG MG food} 50 MG Tramadol Tramadol No 1{table QD Tramadol HCl 50 MG HCl 50 MG t_as_ne HCl 50 MG eded} Eliquis 5 Eliquis 5 No Eliquis 5 MG MG MG Amphetamine Amphetamine No 1{table BID Amphetamin -Dextroamph -Dextroamph t} e-Dextroam etamine 30 etamine 30 phetamine MG MG 30 MG Pen [place] Pen [place] No QD Pen 32G x 4 mm 32G x 4 mm [place] 06/14" 06/14" 32G x 4 mm 06/14" True Metrix True Metrix No True Blood Blood Metrix Glucose Glucose Blood Test - Test - Glucose Test - Duloxetine Duloxetine No 1{capsu QD Duloxetine HCl 60 MG HCl 60 MG le} HCl 60 MG Advair Advair No 1{puff} BID Advair Diskus Diskus Diskus 250-50 250-50 250-50 MCG/DOSE MCG/DOSE MCG/DOSE BusPIRone BusPIRone No 1{table BID BusPIRone HCl 10 MG HCl 10 MG t} HCl 10 MG Losartan Losartan No 1{table QD Losartan Potassium Potassium t} Potassium 50 MG 50 MG 50 MG Divalproex Divalproex No 1{table QD Divalproex Sodium ER Sodium ER t} Sodium ER 500 MG 500 MG 500 MG Risperidone Risperidone No 1{table QD Risperidon 4 MG 4 MG t} e 4 MG Clonazepam Clonazepam No 1{table QD Clonazepam 0.5 MG 0.5 MG t_at_be 0.5 MG dtime} Benztropine Benztropine No 1{table QD Benztropin Mesylate Mesylate t_at_be e Mesylate 0.5 MG 0.5 MG dtime} 0.5 MG Atorvastati Atorvastati No 1{table QD Atorvastat n Calcium n Calcium t} in Calcium 40 MG 40 MG 40 MG UltiCare UltiCare No UltiCare Micro Pen Micro Pen Micro Pen [place] 32G [place] 32G [place] X 4 MM X 4 MM 32G X 4 MM NovoLIN NovoLIN No NovoLIN 70/30 70/30 70/30 FlexPen FlexPen FlexPen (70-30) 100 (70-30) 100 (70-30) UNIT/ML UNIT/ML 100 UNIT/ML NovoLIN NovoLIN No BID NovoLIN 70/30 70/30 70/30 FlexPen FlexPen FlexPen (70-30) 100 (70-30) 100 (70-30) UNIT/ML UNIT/ML 100 UNIT/ML Victoza 18 Victoza 18 No QD Victoza 18 MG/3ML MG/3ML MG/3ML Albuterol Albuterol No 1{puff_ 6xD Albuterol Sulfate HFA Sulfate HFA as_need Sulfate 108 (90 108 (90 ed} HFA 108 Base) Base) (90 Base) MCG/ACT MCG/ACT MCG/ACT Hydrocodone Hydrocodone No 1{table QID Hydrocodon -Acetaminop -Acetaminop t_as_ne e-Acetamin hen 10-325 hen 10-325 eded} ophen MG MG 10-325 MG Metoprolol Metoprolol No 1{table BID Metoprolol Tartrate 50 Tartrate 50 t_with_ Tartrate MG MG food} 50 MG Tramadol Tramadol No 1{table QD Tramadol HCl 50 MG HCl 50 MG t_as_ne HCl 50 MG eded} Eliquis 5 Eliquis 5 No Eliquis 5 MG MG MG Amphetamine Amphetamine No 1{table BID Amphetamin -Dextroamph -Dextroamph t} e-Dextroam etamine 30 etamine 30 phetamine MG MG 30 MG Pen [place] Pen [place] No QD Pen 32G x 4 mm 32G x 4 mm [place] 06/14" 06/14" 32G x 4 mm 06/14" True Metrix True Metrix No True Blood Blood Metrix Glucose Glucose Blood Test - Test - Glucose Test - Duloxetine Duloxetine No 1{capsu QD Duloxetine HCl 60 MG HCl 60 MG le} HCl 60 MG Advair Advair No 1{puff} BID Advair Diskus Diskus Diskus 250-50 250-50 250-50 MCG/DOSE MCG/DOSE MCG/DOSE BusPIRone BusPIRone No 1{table BID BusPIRone HCl 10 MG HCl 10 MG t} HCl 10 MG Losartan Losartan No 1{table QD Losartan Potassium Potassium t} Potassium 50 MG 50 MG 50 MG Divalproex Divalproex No 1{table QD Divalproex Sodium ER Sodium ER t} Sodium ER 500 MG 500 MG 500 MG Risperidone Risperidone No 1{table QD Risperidon 4 MG 4 MG t} e 4 MG Clonazepam Clonazepam No 1{table QD Clonazepam 0.5 MG 0.5 MG t_at_be 0.5 MG dtime} Benztropine Benztropine No 1{table QD Benztropin Mesylate Mesylate t_at_be e Mesylate 0.5 MG 0.5 MG dtime} 0.5 MG Atorvastati Atorvastati No 1{table QD Atorvastat n Calcium n Calcium t} in Calcium 40 MG 40 MG 40 MG UltiCare UltiCare No UltiCare Micro Pen Micro Pen Micro Pen [place] 32G [place] 32G [place] X 4 MM X 4 MM 32G X 4 MM NovoLIN NovoLIN No NovoLIN 70/30 70/30 70/30 FlexPen FlexPen FlexPen (70-30) 100 (70-30) 100 (70-30) UNIT/ML UNIT/ML 100 UNIT/ML NovoLIN NovoLIN No BID NovoLIN 70/30 70/30 70/30 FlexPen FlexPen FlexPen (70-30) 100 (70-30) 100 (70-30) UNIT/ML UNIT/ML 100 UNIT/ML Victoza 18 Victoza 18 No QD Victoza 18 MG/3ML MG/3ML MG/3ML Albuterol Albuterol No 1{puff_ 6xD Albuterol Sulfate HFA Sulfate HFA as_need Sulfate 108 (90 108 (90 ed} HFA 108 Base) Base) (90 Base) MCG/ACT MCG/ACT MCG/ACT Hydrocodone Hydrocodone No 1{table QID Hydrocodon -Acetaminop -Acetaminop t_as_ne e-Acetamin hen 10-325 hen 10-325 eded} ophen MG MG 10-325 MG Metoprolol Metoprolol No 1{table BID Metoprolol Tartrate 50 Tartrate 50 t_with_ Tartrate MG MG food} 50 MG Tramadol Tramadol No 1{table QD Tramadol HCl 50 MG HCl 50 MG t_as_ne HCl 50 MG eded} Eliquis 5 Eliquis 5 No Eliquis 5 MG MG MG Amphetamine Amphetamine No 1{table BID Amphetamin -Dextroamph -Dextroamph t} e-Dextroam etamine 30 etamine 30 phetamine MG MG 30 MG Pen [place] Pen [place] No QD Pen 32G x 4 mm 32G x 4 mm [place] 06/14" 06/14" 32G x 4 mm 06/14" True Metrix True Metrix No True Blood Blood Metrix Glucose Glucose Blood Test - Test - Glucose Test - Duloxetine Duloxetine No 1{capsu QD Duloxetine HCl 60 MG HCl 60 MG le} HCl 60 MG Advair Advair No 1{puff} BID Advair Diskus Diskus Diskus 250-50 250-50 250-50 MCG/DOSE MCG/DOSE MCG/DOSE BusPIRone BusPIRone No 1{table BID BusPIRone HCl 10 MG HCl 10 MG t} HCl 10 MG Losartan Losartan No 1{table QD Losartan Potassium Potassium t} Potassium 50 MG 50 MG 50 MG Divalproex Divalproex No 1{table QD Divalproex Sodium ER Sodium ER t} Sodium ER 500 MG 500 MG 500 MG Immunizations Ordered Filled Immunization Date Status Comments [facility] e Immunization Name Name SARS-COV-2 COVID-19 2021-04-20 Completed Unive rsity of MOD[facility] 12+ YRS 00:00:00 [place] [facility] SARS-COV-2 COVID-19 2021-04-20 Completed Unive rsity of MODER[facility] 12+ YRS 00:00:00 [place] [facility] VACC[facility] SARS-COV-2 COVID-19 2021-04-20 Completed Unive rsity of MODERNA 12+ YRS 00:00:00 [place] [facility] VACC[facility] SARS-COV-2 COVID-19 2021-04-20 Completed Unive rsity of MODERNA 12+ YRS 00:00:00 [place] [facility] VACCINE [facility] SARS-COV-2 COVID-19 2021-04-20 Completed Unive rsity of MODERNA 12+ YRS 00:00:00 [place] [facility] VACCINE [facility] SARS-COV-2 COVID-19 2021-04-20 Completed Unive rsity of MODERNA 12+ YRS 00:00:00 [place] [facility] VACCINE [facility] SARS-COV-2 COVID-19 2021-04-20 [...] rsity of MODERNA 12+ YRS 00:00:00 [place] [facility] ical VACCINE Branch Prevnar 13 Prevnar 13 2019-07-12 Completed [facility] - -Pneumonia Vaccine -Pneumonia Vaccine 10:47:00 [facility] Prevnar 13 Prevnar 13 2019-07-12 Completed [facility] - -Pneumonia Vaccine -Pneumonia Vaccine 10:47:00 [facility] Prevnar 13 Prevnar 13 2019-07-12 Completed [facility] - -Pneumonia Vaccine -Pneumonia Vaccine 10:47:00 [facility] Prevnar 13 Prevnar 13 2019-07-12 Completed [facility] - -Pneumonia Vaccine -Pneumonia Vaccine 10:47:00 [facility] Prevnar 13 Prevnar 13 2019-07-12 Completed [facility] - -Pneumonia Vaccine -Pneumonia Vaccine 10:47:00 [facility] Prevnar 13 Prevnar 13 2019-07-12 Completed [facility] - -Pneumonia Vaccine -Pneumonia Vaccine 10:47:00 [facility] Prevnar 13 Prevnar 13 2019-07-12 Completed [facility] - -Pneumonia Vaccine -Pneumonia Vaccine 10:47:00 [facility] Prevnar 13 Prevnar 13 2019-07-12 Completed [facility] - -Pneumonia Vaccine -Pneumonia Vaccine 10:47:00 [facility] Pneumococcal 13 2019-07-12 Completed [facility] of [...] Completed Universit y of Conjugate, PCV13 00:00:00 [place] [facility] (Prevnar 13) Branch Pneumococcal 13 2019-05-25 Completed Universit y of Conjugate, PCV13 00:00:00 [place] [facility] (Prevnar 13) Branch Pneumococcal 13 2019-05-25 Completed Universit y of Conjugate, PCV13 00:00:00 [place] [facility] (Prevnar 13) Branch Vital Signs Vital Name Observation Time Observation Value Comments Source Systolic blood 2022-03-18 06:58:00 185 mm[Hg] Univer sity of pressure [facility] Diastolic blood 2022-03-18 06:58:00 85 mm[Hg] Unive rsity of [facility] Heart rate 2022-03-18 06:58:00 89 /min Universi ty [facility] Body temperature 2022-03-18 06:58:00 36.56 Cece [facility] ersity [facility] Respiratory rate 2022-03-18 06:58:00 18 /min Univ ersity [facility] Body height 2022-03-18 06:58:00 182.9 cm Universi ty [facility] Body weight 2022-03-18 06:58:00 97.523 kg Universi ty [facility] BMI 2022-03-18 06:58:00 29.16 kg/m2 Universi ty [facility] Oxygen saturation in 2022-03-18 06:58:00 98 /min University of Arterial blood by [facility] [place] Pulse oximetry Branch Systolic blood 2022-03-17 16:38:00 181 mm[Hg] Univer sity of [facility] Diastolic blood 2022-03-17 16:38:00 91 mm[Hg] Unive rsity of [facility] Heart rate 2022-03-17 16:38:00 75 /min Universi ty [facility] Body temperature 2022-03-17 16:38:00 35.56 Cece Univ ersity [facility] Respiratory rate 2022-03-17 16:38:00 18 /min Univ ersity [facility] Oxygen saturation in 2022-03-17 16:38:00 97 /min [facility] Arterial blood by [facility] [place] Pulse oximetry Branch Body weight 2022-03-17 08:13:00 104.962 kg Universi ty [facility] BMI 2022-03-17 08:13:00 32.27 kg/m2 [facility] Body height 2022-03-16 01:43:00 180.3 cm [facility] Systolic blood 2022-02-21 15:58:00 167 mm[Hg] [facility] Diastolic blood 2022-02-21 15:58:00 94 mm[Hg] Unive rsity of [facility] Heart rate 2022-02-21 15:53:00 95 /min [facility] Respiratory rate 2022-02-21 15:53:00 19 /min [facility] Body height 2022-02-21 15:53:00 182.9 cm Univers[facility] Body weight 2022-02-21 15:53:00 94.802 kg [facility] BMI 2022-02-21 15:53:00 28.35 kg/m2 [facility] Oxygen saturation in 2022-02-21 15:53:00 95 /min [facility] Arterial blood by [facility] Pulse oximetry Branch height 2020-04-03 11:30:00 72 [in_i] [facility] weight 2020-04-03 11:30:00 240.2 [lb_av] Common [facility] temperature 2020-04-03 11:30:00 97.8 [degF] [facility] bmi 2020-04-03 11:30:00 32.57 kg/m2 [facility] oximetry 2020-04-03 11:30:00 95 % [facility] respiratory rate 2020-04-03 11:30:00 17 /min [facility] blood pressure 2020-04-03 11:30:00 125 mm[Hg] Common [facility] - systolic [facility] blood pressure 2020-04-03 11:30:00 61 mm[Hg] Common [facility] - diastolic [facility] Procedures Procedure Date / Time Performing Clinician Source Performed AUTHORIZATION FOR 2022-03-20 05:01:00 Doctor Unassigned, No [facility] Name Medical Branch URINALYSIS 2022-03-18 07:37:00 [facility] 2022-03-18 07:33:16 Gonzalez [facility] XR CHEST 1 VW 2022-03-18 07:27:00 Gonzalez [facility] TROPONIN I 2022-03-18 07:20:00 Gonzalez [facility] COMP. METABOLIC PANEL 2022-03-18 07:20:00 Gonzalez [facility] ([id number]) [facility] CBC WITH DIFF 2022-03-18 07:20:00 Gonzalez [facility] PROTHROMBIN TIME / INR 2022-03-18 07:20:00 Gonzalez [facility] N-TERMINAL PRO-BNP 2022-03-18 07:20:00 Zee Roth [facility] POCT GLUCOSE (AUTOMATED) 2022-03-17 16:37:00 Chacorta Flores [facility] DUPLEX VENOUS LEGS 2022-03-17 14:50:00 Justin Arango [facility] BILATERAL - BY VASCULAR [facility] LAB HEMOGLOBIN 2022-03-17 14:18:00 Chacorta Flores [facility] POCT GLUCOSE (AUTOMATED) 2022-03-17 12:37:00 Chacorta Flores [facility] BASIC METABOLIC PANEL 2022-03-17 10:23:00 Cole Moreno [facility] (NA, K, CL, CO2, Medical Branch GLUCOSE, BUN, CREATININE, CA) CBC WITH DIFF 2022-03-17 10:23:00 Cole Moreno [facility] GLYCOSYLATED HEMOGLOBIN 2022-03-17 10:23:00 Justin Arango [facility] (A1C) [facility] N-TERMINAL PRO-BNP 2022-03-17 10:23:00 Cole Moreno [facility] POCT GLUCOSE (AUTOMATED) 2022-03-17 02:16:00 Chacorta Flores [facility] POCT GLUCOSE (AUTOMATED) 2022-03-16 21:41:00 Chacorta Flores [facility] POCT GLUCOSE (AUTOMATED) 2022-03-16 16:49:00 Chacorta Flores [facility] NM LUNG PERFUSION ONLY 2022-03-16 13:52:07 Chacorta Flores [facility] POCT GLUCOSE (AUTOMATED) 2022-03-16 12:55:00 Chacorta Flores [facility] MAGNESIUM 2022-03-16 10:18:00 Justin Arango [facility] VITAMIN B12, LEVEL 2022-03-16 10:18:00 Justin Arango [facility] TROPONIN I 2022-03-16 10:18:00 Justin Arango [facility] BASIC METABOLIC PANEL 2022-03-16 10:18:00 Justin Arango [facility] (NA, K, CL, CO2, Medical Branch GLUCOSE, BUN, CREATININE, CA) LIPID PANEL 2022-03-16 10:18:00 Justin Arango [facility] ([id number])(TOTAL [facility] CHOLESTEROL, TRIGLYCERIDES, HDL) CBC WITH DIFF 2022-03-16 10:18:00 Justin Arango [facility] N-TERMINAL PRO-BNP 2022-03-16 10:18:00 Justin Arango [facility] TROPONIN I 2022-03-16 03:39:00 Justin Arango [facility] POCT GLUCOSE (AUTOMATED) 2022-03-16 02:23:00 Chacorta Flores [facility] POCT GLUCOSE (AUTOMATED) 2022-03-16 00:54:00 Héctor Ruiz [facility] D-DIMER 2022-03-15 22:28:00 Héctor Ruiz [facility] POCT GLUCOSE (AUTOMATED) 2022-03-15 22:11:00 Héctor Ruiz [facility] URINALYSIS 2022-03-15 21:29:00 Héctor Ruiz [facility] XR CHEST 1 VW 2022-03-15 21:10:14 Héctor Ruiz [facility] XR HAND 3+ VW LEFT 2022-03-15 21:10:14 Héctor Ruiz [facility] MAGNESIUM 2022-03-15 20:53:00 Héctor Ruiz Monique [facility] TROPONIN I 2022-03-15 20:53:00 Héctor Ruiz Monique [facility] COMP. METABOLIC PANEL 2022-03-15 20:53:00 Héctor Ruiz [facility] ([id number]) [facility] CBC WITH DIFF 2022-03-15 20:53:00 Joseph [facility] N-TERMINAL PRO-BNP 2022-03-15 20:53:00 Héctor Ruiz [facility] HB ECG ROUTINE & RHYTHM 2022-03-15 20:45:37 Héctor Ruiz [facility] CONSENT/REFUSAL FOR 2022-03-15 20:34:14 Doctor Unassigned, [facility] Name Medical Branch Plan of Care Planned Activity Planned Date Details Comments Source Future Scheduled 2022-03-09 IMM Influenza [facility] Test 00:00:00 Seasonal (>/= 19 yrs) [code = IMM Influenza Seasonal (>/= 19 yrs)] Future Scheduled 2022-03-09 IMM Influenza [facility] Test 00:00:00 Seasonal (>/= 19 yrs) [code = IMM Influenza Seasonal (>/= 19 yrs)] Future Scheduled 2021-12-25 COVID-19 Vaccination [facility] Test 10:49:05 (#1) [code = CRISTINA [facility] Center Future Scheduled 2021-12-25 COVID-19 Vaccination [facility] Test 10:49:05 (#1) [code = KATHRYN-Shakira VALENCIA [facility] (#1)] Center Future [...] malignant neoplasm of colon (procedure) [code = 177516459] Future Scheduled 2011 [facility] 00:00:00 malignant neoplasm of colon (procedure) [code = 668493428] Future Scheduled 2011 [facility] 00:00:00 malignant neoplasm of colon (procedure) [code = 393055841] Future Scheduled 1973 COVID-19 Vaccine (1) [facility] 00:00:00 [code = COVID-19 Vaccine (1)] Future Scheduled 1961 COVID-19 Vaccine (#1) [facility] 00:00:00 [code = COVID-19 Vaccine (#1)] Future Scheduled 1961 COVID-19 Vaccine (#1) [facility] Test 00:00:00 [code = COVID-19 Vaccine (#1)] Future Scheduled 1961 Fluoride Varnish [facility] 00:00:00 [code = Fluoride Varnish] Future Scheduled [address] [facility] Test 00:00:00 [code = Fluoride Varnish] Encounters Start End Encounter Admission Attending Care Care Encounter Source Date/Time Date/Time Type Type Clinicians Facility Department ID 2022-03-29 Outpatient [id number] Memoria 01:57:22 [id number] 62-4FDF-A52 L62-5UDC- A l -E534-21G [id number] Raul [id number] 2022-03-17 Outpatient [id number] [id number] AF3F-C Memoria 07:56:33 P20X-94AR 6A-48BE-9F9 46A-48BE- 9 l -4F87-119 [id number] Raul [id number] 44C [id number] 2022-03-15 Outpatient [id number] 29CC-6 Memoria 15:35:08 [id number] 16-9P0K-T25 116-4D6A- B l -D72K-7P9 F-[id number] 72F-8D02B6 Raul [id number] 454 [id number] 2022-02-21 Outpatient [id number] 1FA1 41F0-D Memoria 10:43:20 D129-507X 16-461F-AF0 816-461F- A l -VD96-Q97 [id number] F25-R443L2 Raul [id number] 5197-09-10 Outpatient [id number] [id number] 54A5 C79F-E Memoria 21:13:44 G8A4-1E40 E1-9C37-838 0R4-5W84- 8 l -862B-9B9 [id number] [id number]-[id number] Raul [id number] E8A [id number] 2021-10-22 Outpatient Karlo, [facility] [id number] Common 14:35:01 Sylvain 52807 [facility] 2021-07-05 Outpatient 3 OLIMPIA AntonPL OTH [id number] 20 [facility] 10:37:17 [facility]ta [facility] [place] 2021-07-05 Outpatient 3 OLIMPIA AntonPL OTH [id number] 20 [facility] 10:35:19 Violetta 09[facility] [place] 2021-07-05 Outpatient 3 [id number] ENCPL REF [facility] 10:33:41 0909 [facility] 2021-07-04 Outpatient Dietrich, STLMLC [facility] Common 12:23:16 Sylvain 45423 [facility] 2021-07-04 Out[facility] Common 11:58:41 Sylvain 87800 [facility] 2021-07-04 Outpatient Dietrich, STLMLC [facility] Common 11:58:34 Sylvain 70372 [facility] 2021-07-04 Outpatient Dietrich, STLMLC [facility] Common 11:54:24 Sylvain 38175 [facility] 2021-07-04 Outpatient Dietrich, [facility] Common 11:24:48 Sylvain 59662 [facility] 2021-07-04 Outpatient Dietrich, STLMLC [facility] Common 11:24:36 Sylvain 84344 [facility] 2021-04-09 Emergency [facility] [id number] Univers 19:11:35 ity of [facility] 2021-04-09 Emergency [facility] [id number] Univers 15:13:53 ity of [facility] 2021-04-09 Emergency [facility] [id number] Univers 10:54:40 ity [facility] 2021-04-09 Emergency [facility] [id number] Univers 02:55:05 ity [facility] 2021-04-08 Emergency [facility] [id number] Univers 20:59:19 ity of [facility] 2021-04-08 Emergency [facility] [id number] Univers 17:59:25 ity of [facility] 2021-04-08 Emergency [facility] [id number] Univers 10:37:05 ity of [facility] 2021-04-06 Emergency [facility] [id number] Univers 23:49:47 ity of [facility] 2021-04-06 Emergency [facility] [id number] Univers 20:23:00 ity of [facility] 2021-04-06 Emergency [facility] [id number] Univers 19:33:43 ity of [facility] 2021-04-06 Emergency [facility] [id number] Univers 16:10:55 ity of [facility] 2021-03-20 Outpatient [id number] B2B2-C Memoria 10:39:01 HM1H-9701 7D-4242-B44 X2Y-0873- B l -A00V-69H D-87NYJMH7R 44D-77CAFE Raul MXYY8LMI0 AF2 A1DAF2 2021-03-13 Outpatient [id number] [id number] 2B50-6 Memoria 08:49:42 6166-4D51 66-0K16-116 166-4D51- 8 l -8885-75E 5-91T3Q8K7O 885-75E2A2 Raul 3H8R5SL15 E94 F6FE94 2021-02-27 Outpatient [id number] 2APF5F91-6F 4DEB 5C74-0 Memoria 16:26:17 1S85-33MQ 34-41DF-A62 Z46-18FV- A l -P41O-6TB B-4CR08QDOS 62B-5CF45F Raul 15DOFXV31 E49 CCBE49 2021-02-13 Outpatient [id number]- [id number]-RT FF2B 728B-F Memoria 13:34:27 FDA5-4DF8 A5-7DZ2-WA9 DA5-4DF8- A l -FJ1K-69Y F-13B59R7J9 J0K-87A44Y Raul 55K1W7R5I C9E 9A6C9E 2021-02-05 Outpatient [id number] 9E73-2 Memoria 13:02:31 53J4-1AM1 E0-4NU0-2PG 8C6-6MW0- 8 l -8LO5-4Q7 7-9W0Z5EW6D BD7-8F3D5B Raul M4BB9G2T4 9A8 B3F9A8 2021-01-31 Outpatient [id number]- N0MWCX90-46 B3AE FD79-7 Memoria 14:21:44 71EF-4A97 EF-4D39-S3N 1EF-4A97- A l -A3P8-F98 2-L0712Q46I 4H8-K5762A Raul 45M05YKEY ABB 67DABB 2021-01-29 Outpatient [id number]- [id number]-PT B935 13FC-E Memoria 07:59:59 EAF3-4402 F3-4402-989 AF3-4402- 9 l -9894-E93 4-J415B728L 894-E932E0 Raul 2E949Z02K 73E 11E73E 2021-01-26 Outpatient [id number] 8D89 309C-0 Memoria 11:30:20 69Q8-6Z0O D3-4E4M-T50 2Q5-8D0L- A l -Q073-6H7 0-9O1D58F82 760-9F0F01 Raul M16B65I72 A92 B18A92 2021-01-18 [facility] [id number] 2109 6458-2 Memoria 19:23:47 6125-7172 91-4470-814 100-2113- 9 l -904F-E96 F-L84OFO456 04F-E96FEA Raul GWX354DK1 FF0 071FF0 2021-01-17 Outpatient [id number] B81D 33F9-5 Memoria 15:43:09 72X3-9165 B4-4358-860 7Q8-7752- 8 l -8608-A37 8-P49U24R3B 608-A37F06 Raul I90C5D51D 43A F6C43A 2021-01-11 Outpatient [id number] 9AC2 9515-D Memoria 16:20:54 PA29-8655 42-4648-8F1 J17-4396- 8 l -2I3V-SE6 A-YQ3W980MU R9V-WS6B40 Raul R127WVB8Y A7A 0AAA7A 2020-07-19 Inpatient EM Marina HCACL HCACL [id number] [facility] 06:03:52 an, 32 [facility] 2022-04-02 2022-04-02 Outpatient R DEMOND [facility] [id number] [facility] 10:40:00 10:40:00 MARYLU allan [facility] 2022-03-29 2022-03-29 Outpatient R FABIÁN REYES [facility] [id number] Univers 08:30:00 08:30:00 FABIÁN REYES [facility] 2022-03-21 2022-03-21 [facility] 1.2.840.114 [id number] Univers 00:00:00 00:00:00 Marylu MARTIN 350.1.13.10 [place] [id number] Nd dical [address] 2022-03-20 2022-03-20 Orders Doctor NAINA 1.2.840.114 [id number] Univers 00:00:00 00:00:00 Only Unassigned, MARIELOS 350.1.13.10 ity of [place] [facility] 4.2.7.2.686 [place] as [id number] [address] 2022-03-19 2022-03-19 Transition ROSALINE Dolan 1.2.840.114 [id number] Univers 00:00:00 00:00:00 of Care Mehul CASTILLO 350.1.13.10 [place] [place] [id number] [facility] [address] 2022-03-18 2022-03-18 Emergency X MARISA [facility] ERT [id number] Univers 01:51:00 03:16:00 KATH ity [facility] 2022-03-18 2022-03-18 Emergency Zee Roth [facility] 1.2.840 .114 [id number] Univers 01:51:00 03:16:00 Kath Jones 350.1.13.10 [facility] [facility] [place] [id number] [facility] [address] 2022-03-15 2022-03-17 Outpatient X CHARAN [facility] [id number] Univers 15:38:00 15:16:00 [facility]-15 2022-03-17 Emergency Héctor Ruiz [facility] 1.2.840. 114 [id number] Univers 15:38:00 15:16:00 Chacorta Flores 350.1.13.10 [place] [id number] [facility] [address] 2022-02-27 2022-02-27 [place] [facility] 1.2.840.114 9 [id number] Univers 00:00:00 00:00:00 Marylu MARTIN 350.1.13.10 [place] [id number] [address] 2022-02-26 2022-02-26 Outpatient Chi FOSTER [facility] [id number] Univers 13:00:00 13:00:00 YOGESH allan [facility] 2022-02-26 2022-02-26 Outpatient Chi FOSTER [facility] [id number] Univers 13:00:00 13:00:00 YOGESH christopher [facility] 2022-02-21 2022-02-21 Outpatient Chi ESCOBEDO [facility] [id number] Univers 10:00:00 12:00:18 UMA itchristopher [facility] 2022-02-21 2022-02-21 Office Gregg [facility] 1.2.840.114 [id number] [facility] 10:00:00 12:00:18 Visit Uma MARTIN 350.1.13.10 i ty [facility] [place] [id number] [address] 2022-02-14 2022-02-14 Telephone [facility] 1.2.840.114 9 [id number] Univers 00:00:00 00:00:00 Marylu MARTIN 350.1.13.10 [place] [id number] [address] 2022-02-12 2022-02-12 [facility] 1.2.840.114 9 [id number] Univers 00:00:00 00:00:00 Marylu MARTIN 350.1.13.10 [place] [id number] [address] 2022-02-07 2022-02-07 Telephone [facility] 1.2.840.114 9 [id number] Univers 00:00:00 00:00:00 Marylu MARTIN 350.1.13.10 it[place] [id number] [address] 2022-02-06 2022-02-06 Outpatient N FABIÁN REYES [facility] [id number] Univers 08:30:00 08:30:00 FABIÁN REYES [facility] 2022-01-30 2022-01-30 Outpatient R FABIÁN REYES [facility] [id number] Univers 11:00:00 11:42:01 FABIÁN REYES [facility] 2022-01-30 2022-01-30 Office Lianne [facility] 1.2.840.114 [id number] Univers 11:00:00 11:42:01 Visit Fabián MARIO 350.1.13.10 [place] of [place] [id number] Nd dical NAL [address] [facility] 2022-01-25 2022-01-25 [facility] 1.2.840.114 9 [id number] Univers 00:00:00 00:00:00 Marylu Ravin MARTIN 350.1.13.10 ity [facility] 4[place] [phone] Nd dical NAL [address] [facility] 2022-01-24 2022-01-24 Transition CESILIA DolanAntwan 1.2.840.114 [id number] Univers 00:00:00 00:00:00 of Care Mehul Ravin CASTILLO 350.1.13.10 ity of [place] 4[place]2.7.2.[id number] [facility] [address] 2022-01-20 2022-01-23 [facility] JOSE [id number] Univers 19:18:00 17:50:00 CHACORTA allan [facility] 2022-01-20 2022-01-23 [facility] Rafael Haro [facility] 1.2.840.1 14 [id number] Univers 19:18:00 17:50:00 Encounter Chacorta Flores 350.1.13.10 ity [facility] 4.2.7.[place] [id number] [facility] [address] 2022-01-20 2022-01-23 Inpatient X CHARAN [facility] JOSE [id number] Univers 19:18:00 17:50:00 CHACORTA allan [facility] 2022-01-23 2022-01-23 Outpatient R LUIS LAM [facility] [id number] Univers 14:00:00 14:00:00 LUIS LAM [facility] 2022-01-23 2022-01-23 Outpatient R LUIS LAM [facility] [id number] Univers 14:00:00 14:00:00 CAROLELUIS ity [facility] 2022-01-08 2022-01-08 [id number] Univers 13:40:00 13:40:00 MARYLU ity [facility] 2021-12-24 2021-12-24 Emergency X [facility] ERT [id number] Univers 16:57:00 20:57:00 KELVIN ity [facility] 2021-12-24 2021-12-24 Emergency [facility] 1.2.058.724 [id number] Univers 16:57:00 20:57:00 Kelvin MARTIN 350.1.13.10 i ty [place] [id number] [facility] [address] 2021-12-24 2021-12-24 [facility] 1.2.840.114 9 [id number] Univers 00:00:00 00:00:00 Marylu MARTIN 350.1.13.10 [place] of [place] [id number] Nd dic[address] 2021-12-18 2021-12-18 [facility] 1.2.840.114 [id number] Univers 00:00:00 00:00:00 Marylu MARTIN 350.1.13.10 it[place] of [place] [id number] [address] 2021-12-06 2021-12-06 Orders Doctor NAINA 1.2.840.114 [id number] Univers 00:00:00 00:00:00 Only Unassigned, MARIELOS 350.1.13.10 ity of [place] [facility] 4.2.7.2.[id number] [facility] [address] 2021-11-26 2021-11-26 Outpatient R [facility] [id number] Univers 13:30:00 13:30:00 ity of [facility] 2021-11-26 2021-11-26 Outpatient R [facility] [id number] Univers 13:30:00 13:30:00 ity of [facility] 2021-11-23 2021-11-23 Orders Doctor CHEW 1.2.840.114 [id number] Univers 00:00:00 00:00:00 Only Unassigned, MARIELOS 350.1.13.10 ity of [place] [facility] 4.2.7.2.[id number] [facility] [address] 2021-11-19 2021-11-22 Inpatient [facility] [id number] Univers 18:34:00 15:35:00 JENNIFER christopher [facility] 2021-11-19 2021-11-22 [facility] Kelvin Darby [facility] 1.2.840.1 14 [id number] Univers 18:34:00 15:35:00 Encounter Sari Avis MARTIN 350.1.13.10 ity of [place] 4.2.7.2.686 [facility] [id number] [facility] [address] 2021-11-19 2021-11-22 [facility] JOSE [id number] Univers 18:34:00 15:35:[address] [facility] 2021-11-20 2021-11-20 Telephone [facility] 1.2.840.114 9 [id number] Univers 00:00:00 00:00:00 Marylu MARTIN 350.1.13.10 [place] [id number] Nd dical [address] 2021-11-19 2021-11-19 [facility] [id number] Univers 14:00:00 15:01:22 [facility] 2021-11-19 2021-11-19 Office [facility] 1.2.840.114 [id number] Univers 14:00:00 15:01:22 Visit [facility] 350.1.13.10 it y of [place] 4.2.7.2.686 [place] as RIANA?BLEA [id number] Nd dical KNEY [address] MEDICAL OFFICE BUILDING 2021-11-19 2021-11-19 Outpatient R TIERRALAMINE [facility] [id number] Univers 14:00:00 15:01:22 SAPPHIRE ity [facility] 2021-11-19 2021-11-19 Outpatient R AJ, [facility] [id number] Univers 14:00:00 14:00:00 SAPPHIRE ity [facility] 2021-11-19 2021-11-19 Telephone [facility] 1.2.840.114 [id number] Univers 00:00:00 00:00:00 Marylu MARTIN 350.1.13.10 [place] [phone] Nd diclukas [facility] [address] BUILDING 2021-11-19 2021-11-19 Transition ROSALINE Dolan .2.840.114 [id number] Univers 00:00:00 00:00:00 of Care Mehul CASTILLO 350.1.13.10 [place] [place] [id number] [facility] [address] 2021-11-17 2021-11-17 Inpatient X NIR [facility] [id number] Univers 11:30:00 17:58:00 TO allan o f [facility] 2021-11-17 2021-11-17 Hospital Jean BakerGiles TRAUMA 1.2.840.11 4 [id number] Univers 11:30:00 17:58:00 [facility] 350.1.13.10 ity of [place] 4.2.7.2.[address] [place] [id number] [facility] [address] 2021-10-30 2021-10-30 Outpatient R DEMOND [facility] [id number] Univers 15:00:00 15:00:00 MARYLU allan [facility] 2021-10-29 2021-10-29 Telephone [place], [facility] .2.840.114 9 [id number] Univers 00:00:00 00:00:00 Marylu MARTIN 350.1.13.10 it[place] [phone] [facility] 2021-10-02 2021-10-02 Outpatient R DEMOND [facility] [id number] Univers 15:00:00 15:00:00 MARYLU ity [facility] 2021-10-02 2021-10-02 [facility] 1.2.840.114 [id number] Univers 00:00:00 00:00:00 Marylumiguel angel MARTIN [id number] [facility] [place] [id number] [address] 2021-09-21 2021-09-21 Outpatient R FABIÁN REYES [facility] [id number] Univers 14:30:00 15:28:52 [facility] 2021-09-21 Office Lianne [facility] 1.2.840.114 [id number] Univers 14:30:00 15:28:52 Visit Fabián MARTIN [id number] [facility] [place] [id number] [address] 2021-09-21 2021-09-21 Outpatient R FABIÁN REYES [facility] [id number] Univers 14:30:00 15:28:52 [facility] 2021-[facility]-20 2021-09-20 Transition ROSALINE Dolan 1.2.840.114 [id number] Univers 00:00:00 00:00:00 of Care Mehul CASTILLO [id number] [place] [id number] [address] 2021-09-20 2021-09-20 Orders Doctor NAINA 1.2.840.114 [id number] Univers 00:00:00 00:00:00 Only Unassigned, MARIELOS [id number] ity of [facility] 4.2.7.2.686 [place] as [id number] [address] 2021-09-17 2021-09-19 Outpatient X IRAM [facility] JOSE [id number] Univers 19:42:00 12:00:00 JENNIFER allan [facility] 2021-09-17 2021-09-19 Outpatient X IRAM [facility] JOSE [id number] Univers 19:42:00 12:00:00 JENNIFER allan [facility] 2021-09-17 2021-09-19 Emergency ZuritaWilly [facility] 1.2.840. 114 [id number] Univers 19:42:00 12:00:00 Jennifer Walden [id number] [facility] [id number] S[place] [id number] [address] 2021-09-17 2021-09-17 Refill Aj [facility] 1.2.840.114 [id number] Univers 00:00:00 00:00:00 [facility] [id number] it y of [place] 4.2.7.2.686 [place] as RIANA?BLEA [id number] [address] MEDICAL OFFICE [facility] 2021-09-17 2021-09-17 Telephone Aj [facility] 1.2.840.114 [id number] Univers 00:00:00 00:00:00 [facility] 350.1.13.10 it y of [place] 4.2.7.2.686 Gwyn as RIANA?BLEA [phone] [address] MEDICAL OFFICE [facility] 2021-09-17 2021-09-17 Orders Doctor CHEW 1.2.840.114 [id number] Univers 00:00:00 00:00:00 Only Unassigned, MARIELOS 350.1.13.10 ity of [place] [facility] 4.2.7.2.686 Gwyn as [phone] [address] 2021-09-15 2021-09-15 Refill Aj 1.2.840.0 [id number] Univers 00:00:00 00:00:00 [place] 00985.1.1 ity of 3.104.2.7 [place] .3.104552 Medica l .8 [place] 2021-09-14 2021-09-14 [id number] Univers 14:00:00 14:00:00 NATHANAEL, ity [facility] 2021-09-14 2021-09-14 Outpatient R [facility] [id number] Univers 14:00:00 14:00:00 NATHANAEL, ity [facility] 2021-09-14 2021-09-14 Outpatient R [facility] [id number] Univers 14:00:00 14:00:00 NATHANAEL, y [facility] 2021-09-13 2021-09-13 [facility] 1038 [id number] Univers 15:00:00 15:52:12 [facility] 2021-09-13 Office Tierralamine, 1.2.840.7 [id number] Univers 15:00:00 15:52:12 Visit [facility] 11845.1.1 ity of 3.104.2.7 [place] .3.733829 Medica l .8 [place] 2021-09-13 2021-09-13 [facility] 1038 [id number] Univers 15:00:00 15:52:12 SAPPHIRE ity [facility] 2021-09-13 2021-09-13 [facility] 1038 [id number] Univers 15:00:00 15:00:00 SAPPHIRE ity [facility] 2021-09-13 2021-09-13 Travel 1.2.840.1 1.2.055.992 [id number] Univers 00:00:00 00:00:00 67970.1.1 350.1.13.10 ity of 3.104.2.7 4[place].3.698 [place] .3.668[place] 084.8 Medica l .8 [place] 2021-09-12 2021-09-12 Patient Aj, 1.2.840.6 [id number] Univers 00:00:00 00:00:00 Secure Msg [facility] 24308.1.1 i ty of 3.104.2.7 [place] .3.902536 Medica l .8 [place] 2021-09-11 2021-09-11 [facility] 1.2.840.114 [id number] Univers 00:00:00 00:00:00 [facility] 350.1.13.10 it y of [place] 4.2.7.2.686 Gwyn as RIANA?BLEA [phone] [address] MEDICAL OFFICE BUILDING 2021-09-11 2021-09-11 Telephone Aj, 1.2.840.7 [id number] Univers 00:00:00 00:00:00 [place] 58503.1.1 ity of 3.104.2.7 [place] .3.690558 Medica l .8 [place] 2021-09-07 2021-09-07 Orders Doctor NAINA 1.2.840.114 [id number] Univers 00:00:00 00:00:00 Only Unassigned, MARIELOS 350.1.13.10 ity of [place] [facility] 4.2.7.2.686 Gwyn as [phone] [address] 2021-09-07 2021-09-07 Orders Doctor 1.2.840.0 [id number] Univers 00:00:00 00:00:00 Only Unassigned, 04869.1.1 ity of [place] 3.104.2.7 [place] .3.380904 Medica l .8 [place] 2021-08-27 2021-08-27 Outpatient R AJ [facility] 1038 [id number] Univers 10:30:00 10:30:00 SAPPHIRE ity of [facility] 2021-08-27 2021-08-27 Telephone Aj [facility] 1.2.840.114 [id number] Univers 00:00:00 00:00:00 [facility] 350.1.13.10 it y of [facility] 4.2.7.2.686 [place]wyn as RIANA?BLEA [phone] Nd christine [facility] [address] [facility] OFFICE [facility] 2021-08-27 2021-08-27 Telephone Aj, 1.2.840.1 [id number] Univers 00:00:00 00:00:00 [facility] 52342.1.1 ity of 3.104.2.7 [place] .3.806461 Medica l .8 [place] 2021-08-11 2021-08-11 Refill [place], [facility] 1.2.840.114 [id number] Univers 00:00:00 00:00:00 Marylu [facility] 350.1.13.10 ity [facility] 4.2.7.2.[place] PROF[place] [phone] [address] 2021-08-11 2021-08-11 Refill Demond, 1.2.840.5 [id number] Univers 00:00:00 00:00:00 Marylu Alicia 80885.1.1 ity of 3.104.2.7 [place] .3.649426 Medica l .[address] [place] [address] 2021-07-31 2021-07-31 [facility] 1034 [id number] Univers 13:40:00 15:22:19 MARYLU ity of [facility] 2021-07-31 2021-07-31 Office [place], [facility] 1.2.840.114 [id number] Univers 13:40:00 15:22:19 Visit Marylu MARTIN 350.1.13.10 ity of [place] 4.2.7.[place] [phone] [address] 2021-07-31 2021-07-31 [facility] 1034 [id number] Univers 13:40:00 15:22:19 MARYLU ity of [facility] 2021-07-31 2021-07-31 Office Demond, 1.2.840.7 [id number] Univers 13:40:00 15:22:19 Visit Marylu Alicia 97248.1.1 ity of 3.104.2.7 [place] .3.654142 Medica l .8 [place] 2021-07-31 2021-07-31 Outpatient R DEMOND [facility] 1034 [id number] Univers 13:40:00 15:22:19 MARYLU ity [facility] 2021-07-31 2021-07-31 Outpatient R DEMOND [facility] [id number] Univers 13:40:00 13:40:[facility] 2021-07-31 2021-07-31 Outpatient R DEMOND [facility] [id number] Univers 13:40:00 13:40:00 [facility] [place] [facility] 2021-07-31 2021-07-31 Outpatient R DEMOND [facility] 1034 [id number] Univers 13:40:00 13:40:00 [facility] 2021-07-31 2021-07-31 Telephone Rere SMITH 1.2.840.114 [id number] Univers 00:00:00 00:00:00 Nathanael PEDIATRIC 350.1.13.10 ity of [place] [phone] [address] 2021-07-31 2021-07-31 Telephone Aj 1.2.840.4 [id number] Univers 00:00:00 00:00:00 [place] 97843.1.1 ity of 3.104.2.7 [place] .3.854000 Medica l .8 [place] 2021-07-31 2021-07-31 Telephone Rere Markham.2.840.1 [id number] Univers 00:00:00 00:00:00 Nathanael 99587.1.1 it y of [place] 3.104.2.7 [place] .3.187508 Medica l .8 [place] 2021-07-30 2021-07-30 Patient Doctor 1.2.840.2 [id number] Univers 00:00:00 00:00:00 Secure Msg Unassigned, 81725.1.1 ity of [place] 3.104.2.7 [place] .3.790729 Medica l .8 [place] 2021-07-30 2021-07-30 Patient Doctor 1.2.840.1 [id number] Univers 00:00:00 00:00:00 Secure Msg Unassigned, 89311.1.1 ity of [place] 3.104.2.7 [place] .3.032822 Medica l .8 [place] 2021-07-20 2021-07-20 Telephone [facility] 1.2.840.114 9 [id number] Univers 00:00:00 00:00:00 Marylu MARTIN 350.1.13.10 ity of [facility] 4.2.7.2.[place] E[place] [id number] Nd dical NAL 231 [facility] 2021-07-20 2021-07-20 Telephone [place], 1.2.840.0 [id number] Univers 00:00:00 00:00:00 Marylu Ravin 76957.1.1 ity of 3.104.2.7 [place] .3.864083 Medica l .8 [place] 2021-07-04 2021-07-04 Telephone [facility] 1.2.840.114 9 [id number] Univers 00:00:00 00:00:00 [facility] 350.1.13.10 it y of [place] 4.2.7.2.686 Gwyn as RIANA?BLEA [phone] Nd dical KNEY [address] [place] MEDICAL OFFICE [facility] 2021-07-04 2021-07-04 Telephone [facility] 1.2.840.114 9 [id number] Univers 00:00:00 00:00:00 [facility] 350.1.13.10 it y of [place] 4.2.7.2.686 Gwyn as RIANA?BLEA [phone] Nd dical KNEY [address] [place] MEDICAL OFFICE [facility] 2021-07-04 2021-07-04 Telephone Aj, 1.2.840.0 [id number] Univers 00:00:00 00:00:00 [facility] 20947.1.1 ity of 3.104.2.7 [place] .3.851102 Medica l .8 [place] 2021-07-03 2021-07-03 Orders Doctor NAINA 1.2.840.114 [id number] Univers 00:00:00 00:00:00 Only Unassigned, MARIELOS 350.1.13.10 ity of [place] [facility] 4.2.7.2.686 Gwyn as [phone] Medi [place] 009 [place] 2021-07-03 2021-07-03 Orders Doctor 1.2.840.4 [id number] Univers 00:00:00 00:00:00 Only Unassigned, 89814.1.1 ity of [place] 3.104.2.7 [place] .3.813519 Medica l .8 [place] 2021-07-02 2021-07-02 Outpatient R AJ, [facility] 1036 [id number] Univers 11:00:00 11:00:00 [facility] 2021-07-02 2021-07-02 Outpatient R AJ, [facility] 1036 [id number] Univers 11:00:00 11:00:00 [facility] 2021-06-28 2021-06-28 Outpatient R DEMOND [facility] 1034 [id number] Univers 14:20:00 14:20:00 [facility] 2021-06-28 2021-06-28 Outpatient R DEMOND, [facility] 1034 [id number] Univers 14:20:00 14:20:00 [facility] [place] [facility] 2021-06-28 2021-06-28 Patient Doctor 1.2.840.1 [id number] Univers 00:00:00 00:00:00 Secure Msg Unassigned, 30935.1.1 ity of [place] 3.104.2.7 [place] .3.760871 Medica l .8 [place] 2021-06-27 2021-06-27 [facility] 1.2.840.114 9 [id number] Univers 00:00:00 00:00:00 [facility] 350.1.13.10 it y of [facility] 4.2.7.2.686 [place]wyn as RIANA?BLEA [phone] Nd christine KNEY [address] [place] MEDICAL OFFICE BUILDING 2021-06-27 2021-06-27 Telephone Aj, 1.2.840.8 [id number] Univers 00:00:00 00:00:00 [place]hire 66168.1.1 ity of 3.104.2.7 [place] .3.146613 Medica l .8 [place] 2021-06-26 2021-06-26 [facility] 1.2.840.114 9 [id number] Univers 00:00:00 00:00:00 Marylu A [facility] 350.1.13.10 it[place] of [place].2.7.2.686 [place] [facility] [phone] Nd christine MARTEL 231 [facility] 2021-06-26 2021-06-26 Telephone Demond, 1.2.840.3 [id number] Univers 00:00:00 00:00:00 Marylu A 58780.1.1 ity of 3.104.2.7 [place] .3.401085 Medica l .8 [place] 2021-06-23 2021-06-24 Emergency [facility] [id number] Univers 20:56:00 00:43:00 FOLUSHO ity of [facility] 2021-06-23 2021-06-24 Emergency [facility] 1.2.840.114 [id number] Univers 20:56:00 00:43:00 Folhuberto Areli [facility] 350.1.13.10 ity of [facility] 4.2.7.2.[place] [address]ACH[address] [phone] [facility] 084 [place] 2021-06-23 2021-06-24 Emergency [facility] E[facility] [id number] Univers 20:56:00 00:43:00 FOLUSHO ity of [facility] 2021-06-23 2021-06-24 Emergency X HARLEY, [facility] ERT [id number] Univers 20:56:00 00:43:00 FOLUSHO ity of [facility] 2021-06-23 2021-06-24 Emergency [place], 1.2.840.7 [id number] Univers 20:56:00 00:43:00 Cintiausho F 48981.1.1 it y of 3.104.2.7 [place] .3.725094 Medica l .8 [place] 2021-06-23 2021-06-23 Travel 1.2.840.1 1.2.880.318 [id number] Univers 00:00:00 00:00:00 43845.1.1 350.1.13.10 ity of 3.104.2.7 4.[place].3.698 [place] .[place].424348 084.8 Medica l .8 [place] 2021-06-22 2021-06-22 Telephone [facility] 1.2.840.114 9 [id number] Univers 00:00:00 00:00:00 Marylu A MARIO 350.1.13.10 ity of [facility] 4.2.7.2.[place] [phone] Nd diclukas MARTEL 231 [facility] 2021-06-22 2021-06-22 Telephone [place], 1.2.840.8 [id number] Univers 00:00:00 00:00:00 Marylu A 80365.1.1 ity of 3.104.2.7 [place] .3.076015 Medica l .8 [place] 2021-06-18 2021-06-18 Telephone [facility] 1.2.840.114 [id number] Univers 00:00:00 00:00:00 Marylu Alicia HEALTH 350.1.13.10 ity of [place] 4.2.7.2.686 Gwyn as RIANA?BLEA [phone] Nd diclukas [facility]TE[facility] 0[address] [place] MEDICAL OFFICE BUILDING 2021-06-14 2021-06-14 Outpatient R YOAV [facility] [id number] Univers 09:30:00 09:30:00 SRINIVAS ity [facility] 2021-06-14 2021-06-14 Outpatient R YOAV [facility] [id number] Univers 09:30:00 09:30:00 SRINIVAS ity [facility] 2021-06-14 2021-06-14 Outpatient R YOAV [facility] [id number] Univers 09:30:00 09:30:00 SRINIVAS ity [facility] 2021-06-14 2021-06-14 Outpatient R YOAV [facility] [id number] Univers 09:30:00 09:30:[address] [facility] 2021-06-14 2021-06-14 Orders Doctor NAINA 1.2.840.114 [id number] Univers 00:00:00 00:00:00 Only Unassigned, MARIELOS 350.1.13.10 ity of [place] [facility] 4.2.7.2.686 Gwyn as [phone] [address] 2021-06-13 2021-06-13 Telephone Demond [facility] 1.2.840.114 [id number] Univers 00:00:00 00:00:00 Marylu MARTIN 350.1.13.10 ity of [place] 4[place]7.2.[place] [id number] [address] 2021-06-04 2021-06-04 Patient Chriss [facility] 1.2.840.114 [id number] Univers 00:00:00 00:00:00 Outreach Barbara MARTIN 350.1.13.10 ity of [facility] 4.2.7.2.[place] [phone] [address] 2021-06-04 2021-06-04 Patient Chriss [facility] 1.2.840.114 [id number] Univers 00:00:00 00:00:00 Outreach Barbara MARTIN 350.1.13.10 ity of [place] 4[place]2.7.2.[place] [phone] [address] BUILDING 2021-05-31 2021-05-31 Telephone [facility] 1.2.840.114 8 [id number] Univers 00:00:00 00:00:00 [place] 350.1.13.10 i ty of [facility] 4.2.7.2.686 [place] HONEY[place] [id number] [facility] 220 [facility] 2021-05-28 2021-05-28 Office [facility] 1.2.840.114 [id number] Univers 13:00:00 13:30:00 [facility] 350.1.13.10 it y of [place] 4.2.7.2.686 Gwyn as RIANA?BLEA [phone] [address] 2021-05-28 2021-05-28 [facility] [id number] [id number] Univers 13:00:00 13:00:00 [facility] 2021-05-28 2021-05-28 Outpatient R AJ [facility] 1036 [id number] Univers 13:00:00 13:00:00 [facility] 2021-05-28 2021-05-28 Outpatient R AJ [facility] 1036 [id number] Univers 13:00:00 13:00:00 [facility] 2021-05-28 2021-05-28 [facility] 1.2.840.114 [id number] Univers 00:00:00 00:00:00 [facility] 350.1.13.10 it y of [place] 4.2.7.2.686 Gwyn as RIANA?BLEA [phone] [address] 2021-05-25 2021-05-25 Outpatient R DEMOND [facility] 1034 [id number] Univers 13:40:00 15:37:13 [facility] [place] [facility] 2021-05-25 2021-05-25 Outpatient R DEMOND [facility] 1034 [id number] Univers 13:40:00 15:37:13 [facility] [place] [facility] 2021-05-25 2021-05-25 Office [facility] 1.2.840.114 [id number] Univers 13:40:00 15:37:13 Visit Marylu MARTIN 350.1.13.10 itchristopher adrian [place] 4.2.7.2.686 Sonja melo PROFESSIO [phone] Nd dical NAL [address] [facility] 2021-05-25 2021-05-25 Outpatient R DEMOND [facility] 1034 [id number] Univers 13:40:00 15:37:13 [facility] 2021-05-25 2021-05-25 Outpatient R DEMOND [facility] 1034 [id number] Univers 13:40:00 13:40:00 [facility] 2021-05-25 2021-05-25 Outpatient R DEMOND [facility] 1034 [id number] Univers 13:40:00 13:40:00 [facility] 2021-05-23 2021-05-23 [facility] [id number] Univers 12:30:00 13:40:00 [facility] 2021-05-23 2021-05-23 Outpatient R CRISTIAN [facility] [id number] Univers 12:30:00 13:40:00 [facility] 2021-05-23 2021-05-23 Outpatient R FOSTER, [facility] [id number] Univers 12:30:00 13:40:00 [facility] 2021-05-23 2021-05-23 Ancillary Miriam Mcocy [facility] 1 .2.840.114 [id number] Univers 12:30:00 13:30:00 Visit Micky Zambrano 350.1.13.10 [facility] FosterYogesh rowland [place] 4.2.7.2.686 [place] PROFESSIO [phone] Nd dical NAL [address] [facility] 2021-05-23 2021-05-23 Outpatient [facility] [id number] Univers 13:00:00 13:00:[address] [facility] 2021-05-23 2021-05-23 Outpatient R CRISTIAN [facility] [id number] Univers 12:30:00 12:30:[address] [facility] 2021-05-17 2021-05-17 Telephone Gregg [facility] 1.2.840.114 [id number] Univers 00:00:00 00:00:00 Uma MARTIN 350.1.13.10 i ty [facility] 4.2.7.2.[place] [phone] Nd dical NAL 044 [facility] 2021-05-14 2021-05-14 Outpatient R BIANKA [facility] [id number] Univers 14:30:00 14:30:00 [facility] 2021-05-14 2021-05-14 Outpatient Chi CARLTON [facility] [id number] Univers 14:30:00 14:30:00 [facility] 2021-05-14 2021-05-14 Outpatient R BIANKA [facility] [id number] Univers 14:30:00 14:30:00 [facility] 2021-05-14 2021-05-14 Outpatient R BIANKA [facility] [id number] Univers 14:30:00 14:30:00 [facility] 2021-05-10 2021-05-10 Laboratory Only, Adc Pob2 Test [facility] 1.2 .840.114 [id number] Univers 14:51:58 15:05:07 Only Godfrey Aguilar 350.1.13 .10 ity [facility] 4.2.7.2.[place] [phone] Nd dical NAL 225 [facility] 2021-05-10 2021-05-10 Outpatient Chi AGUILAR [facility] [id number] Univers 15:00:00 15:00:00 GODFREY allan [facility] 2021-05-08 2021-05-08 Orders Doctor CHEW 1.2.840.114 [id number] Univers 00:00:00 00:00:00 Only Unassigned, MARIELOS 350.1.13.10 ity of [place] [facility] 4.2.7.2.[phone] [facility] [address] 2021-04-30 2021-04-30 Office [facility] 1.2.840.114 [id number] Univers 11:04:42 12:45:22 Visit [facility] 350.1.13.10 it y of [place] 4.2.7.2.686 Gwyn as RIANA?BLEA [id number] [address] MEDICAL OFFICE BUILDING 2021-04-30 2021-04-30 [facility] [id number] Univers 11:00:00 12:45:22 [facility] 2021-04-30 2021-04-30 [facility] 1036 [id number] Univers 11:00:00 11:00:00 [facility] 2021-04-27 2021-04-27 Transition CESILIA DolanAntwan 1.2.840.114 [id number] Univers 00:00:00 00:00:00 of Care Mehul Ravin CASTILLO 350.1.13.10 ity [facility] 4.2.7.2.[address] [place] [phone] [facility] [address] 2021-04-23 2021-04-26 [facility] Joseph Héctor Amaya [facility] 1.2.840.1 14 [id number] Univers 16:02:00 11:15:00 Encounter Jennifer Walden 350.1.13.10 ity [facility] 4.2.7.2.[place] [id number] [facility] [address] 2021-04-25 2021-04-25 Outpatient Chi FOSTER [facility] [id number] Univers 11:00:00 11:00:00 YOGESH allan [facility] 2021-04-25 2021-04-25 Outpatient Chi FOSTER [facility] [id number] Univers 11:00:00 11:00:00 YOGESH allan [facility] 2021-04-25 2021-04-25 [facility] [id number] Univers 11:00:00 11:00:[address] [facility] 2021-04-24 2021-04-24 [facility] [id number] Univers 16:00:00 16:00:00 NATHANAEL christopher [facility] 2021-04-24 2021-04-24 [id number] Univers 16:00:00 16:00:00 NATHANAEL christopher [facility] 2021-04-24 2021-04-24 [facility] [id number] Univers 16:00: 16:00:00 NATHANAEL christopher [facility] 2021-04-24 2021-04-24 [facility] [id number] [id number] Univers 16:00:00 16:00:00 NATHANAEL, [facility] 2021-04-23 2021-04-23 [facility] 1034 [id number] Univers 14:20:00 15:53:00 [facility] [place] [facility] 2021-04-23 2021-04-23 [facility] [id number] [id number] Univers 14:20:00 15:53:[address] [facility] 2021-04-23 2021-04-23 Office [place], [facility] 1.2.840.114 [id number] Univers 14:20:00 15:53:00 Visit Marylu MARTIN 350.1.13.10 [facility] 4.2.7.2.686 Sonja KERR [phone] [address] 2021-04-23 2021-04-23 [facility] 1034 [id number] Univers 14:20:00 14:20:[address] [facility] 2021-04-20 2021-04-20 Orders Doctor CHEW 1.2.840.114 [id number] Univers 00:00:00 00:00:00 Only Unassigned, MARIELOS 350.1.13.10 ity of [place] [facility] 4.2.7.2.686 Gwyn as [phone] [address] 2021-04-16 2021-04-16 Patient Chriss [facility] 1.2.840.114 [id number] Univers 00:00:00 00:00:00 Outreach Barbara MARTIN 350.1.13.10 ity of [place]2.[place].2.[place] [id number] Nd dical [facility] [address] [facility] 2021-04-16 2021-04-16 Patient Chriss [facility] 1.2.840.114 [id number] Univers 00:00:00 00:00:00 Outreach Barbara MARTIN 350.1.13.10 ity of [place] 4.2.[place].2.[place] [phone] Nd dic[address] 2021-04-12 2021-04-12 [facility] 1.2.840.114 [id number] [facility] 16:12:09 18:05:06 Visit Marylu MARTIN 350.1.13.10 [place] [id number] [address] 2021-04-12 2021-04-12 Outpatient R DEMOND [facility] [id number] Univers 16:00:00 18:05:06 MARYLU ity of [facility] 2021-04-09 2021-04-09 [facility] 1.2.840.114 [id number] Univers 00:00:00 00:00:00 Marylu MARTIN 350.1.13.10 [place] [id number] [facility] 044 [facility] 2021-04-06 2021-04-06 [facility] 1.2.840.114 [id number] Univers 00:00:00 00:00:00 Marylu MARTIN 350.1.13.10 [facility] [place] [phone] Nd dical NAL 044 [facility] 2021-04-05 2021-04-05 [facility] 1.2.840.114 [id number] Univers 00:00:00 00:00:00 Marylu MARTIN 350.1.13.10 [facility] [place] [phone] Nd dical NAL 231 [facility] 2021-04-03 2021-04-03 Outpatient R [facility] [id number] Univers 13:36:02 23:59:00 EMMANUEL allan [facility] 2021-04-03 2021-04-03 [facility] 1.2.840.114 [id number] Univers 13:00:00 23:59:00 Encounter Emmanuel Martin 350.1.13.10 [place] [id number] [facility] [address] 2021-04-02 2021-04-02 Telephone Rere Smith 1.2.840.114 [id number] Univers 00:00:00 00:00:00 Nathanael, Pediatric 350.1.13.10 [place] [phone] [facility] [facility] 2021-03-30 2021-03-30 Telephone [facility] 1.2.840.114 [id number] Univers 00:00:00 00:00:00 Marylu Martin 350.1.13.10 [place] [phone] Nd dical nal 044 [facility] 2021-03-26 2021-03-26 Office Ken Nelson [facility] 1.2.840.114 [id number] Univers 14:30:40 15:00:40 Visit Emmanuel Carlton [facility] 350.1.13 .10 [place] [phone] Nd diclukas [facility] 072 [facility] 2021-03-26 2021-03-26 Outpatient R BIANKA [facility] [id number] Univers 14:30:00 14:30:00 EMMANUEL christopher [facility] 2021-03-26 2021-03-26 Outpatient R BIANKA [facility] [id number] Univers 14:30:00 14:30:00 [facility] 2021-03-26 2021-03-26 Outpatient R BIANKA [facility] [id number] Univers 14:30:00 14:30:00 [facility] 2021-03-20 2021-03-20 [facility] 1.2.840.114 [id number] Univers 10:33:14 12:36:49 Visit Uma Martin 350.1.13.10 [facility] [place] [phone] Nd dical nal 044 [facility] 2021-03-20 2021-03-20 Out[facility] 1034 [id number] Univers 10:40:00 10:40:00 [facility] 2021-03-14 2021-03-14 Telephone [facility] 1.2.770.587 [id number] Univers 00:00:00 00:00:00 Juan Daniel Martin [facility].1.13.10 [facility] [place] [phone] Nd dical nal 059 [facility] 2021-03-13 2021-03-13 Outpatient R GREGG [facility] [id number] Univers 09:15:00 10:16:[address] [facility] 2021-03-13 2021-03-13 [facility] [id number] Univers 09:15:00 10:16:[address] [facility] 2021-03-13 2021-03-13 [facility] [id number] Univers 09:15:00 10:16:13 UMA ity of [facility] 2021-03-13 2021-03-13 Outpatient R [facility] [id number] Univers 09:15:00 09:15:00 ity of [facility] 2021-03-13 2021-03-13 Ground Source Heat Pump Technician 2, Adc Lab [facility] 1.2.840.114 [id number] [facility] 08:40:57 08:55:57 Visit Uma Escobedo 350.1.13.10 it[place] of [place] [phone] Nd dical nal 353 [facility] 2021-03-13 2021-03-13 Telephone [facility] 1.2.840.114 [id number] [facility] 00:00:00 00:00:00 Marylu Martin 350.1.13.10 [place] [phone] Nd dical nal 044 [facility] 2021-03-07 2021-03-07 [facility] 1.2.840.114 [id number] Univers 00:00:00 00:00:00 Marylu Martin 350.1.13.10 [place].2.[place] [phone] Nd dical nal 044 [facility] 2021-03-02 2021-03-02 Telephone [facility] 1.2.840.114 [id number] Univers 00:00:00 00:00:00 Marylu Martin 350.1.13.10 [place] of [place] [phone] Nd dical nal 231 [facility] 2021-02-27 2021-02-27 Office Gregg [facility] 1.2.840.114 [id number] [facility] 16:26:10 17:50:01 Visit Uma Martin 350.1.13.10 i [place].2.[place] [phone] Nd dical nal 044 [facility] 2021-02-27 2021-02-27 Outpatient R GREGG [facility] [id number] Univers 16:20:00 16:20:00 UMA ity of [facility] 2021-02-27 2021-02-27 Orders Doctor NAINA 1.2.840.114 [id number] Univers 00:00:00 00:00:00 Only Unassigned, MARIELOS 350.1.13.10 ity of [place] [facility] 4.2.7.2.686 [place] as [phone] [address] 2021-02-22 2021-02-22 Telephone [place], [facility] 1.2.840.114 [id number] Univers 00:00:00 00:00:00 Marylu Martin 350.1.13.10 ity of [place].2.7.2.[place] essrom[place] [phone] [place] [address] [facility] 2021-02-21 2021-02-21 Telephone [facility] 1.2.840.114 [id number] Univers 00:00:00 00:00:00 Nathanael [facility] 350.1.13.10 ity of RomelJovanny Reynolds 4.2.7.2.686 [place] [phone] [address] Office Building 2021-02-20 2021-02-[address] [facility] [id number] Univers 15:30:00 16:29:01 sanjana MYERS [facility] 2021-02-20 2021-02-[address] [id number] Univers 15:30:00 16:29:01 NATHANAEL ity [facility] 2021-02-20 2021-02-[address] [facility] [id number] Univers 15:30:00 16:29:01 NATHANAEL ity [facility] 2021-02-20 2021-02-20 [facility] [id number] Univers 15:30:00 16:29:01 NATHANAEL ity [facility] 2021-02-20 2021-02-20 [facility] [id number] Univers 15:30:00 16:29:01 NATHANAEL ity of [facility] 2021-02-20 2021-02-20 Office Rere Smith 1.2.840.114 [id number] Univers 15:17:43 16:29:01 Visit Nathanael Pediatric 350.1.13.10 ity of [place] Adult [phone] [facility] 059 [facility] 2021-02-19 2021-02-19 Orders Doctor NAINA 1.2.840.114 [id number] Univers 00:00:00 00:00:00 Only Unassigned, MARIELOS 350.1.13.10 ity of [place] [facility] 4.2.7.2.686 [place] [phone] [place] [address] [facility] 2021-02-16 2021-02-16 [facility] 1034 [id number] Univers 11:00:00 11:00:00 [facility] 2021-02-16 2021-02-16 [facility] [id number] [id number] Univers 09:40:00 09:40:00 [facility] 2021-02-13 2021-02-13 Office [facility] 1.2.840.114 [id number] Univers 13:31:14 14:31:28 Visit Juan Daniel Martin 350.1.13.10 ity of [place].7.2.[place] [phone] Nd dic[address] 2021-02-13 2021-02-13 Office [facility] 1.2.840.114 [id number] Univers 13:31:14 14:31:28 Visit Juan Daniel Martin 350.1.13.10 ity of [place] 4.2.7.2.[place] [phone] Nd dicor nal [address] [place] [address] 2021-02-13 2021-02-13 Outpatient R PARADISE, [facility] [id number] Univers 13:30:00 14:31:28 SENDIL ity of [facility] 2021-02-09 2021-02-09 Outpatient R STEVIE, [facility] [id number] Univers 13:30:00 13:30:00 JARRED ity of [facility] 2021-02-09 2021-02-09 Transition Rosaline Cohen 1.2.840.114 [id number] Univers 00:00:00 00:00:00 of Care Tmaara B Castillo 350.1.13.10 it y of [place].2.[place] [phone] [address] 2021-02-09 2021-02-09 Transition Rosaline Cohen 1.2.840.114 [id number] Univers 00:00:00 00:00:00 of Care Tamara B Castillo 350.1.13.10 it y of [place].2.[place] [phone] [address] 2021-02-05 2021-02-08 [facility] 1.2.840. 114 [id number] Univers 18:37:00 18:35:00 Encounter Bradly Simms 350.1.13.10 ity of [facility] 4.2.7.2.686 [place] [phone] [address] 2021-02-05 2021-02-08 [facility] 1.2.840. 114 [id number] Univers 18:37:00 18:35:00 Encounter Bradly Simms 350.1.13.10 ity of [facility] 4.2.7.2.686 [place] [phone] [address] 2021-02-08 2021-02-08 Cyrus Marte [facility] 1.2.996.361 [id number] Univers 00:00:00 00:00:00 Juan Daniel Martin 350.1.13.10 ity of [place] 4.2.7.2.[place] [phone] Nd dical nal 059 [facility] 2021-02-08 2021-02-08 Telephone [facility] 1.2.731.587 [id number] Univers 00:00:00 00:00:00 Bradly M PRIMARY 350.1.13.10 i ty of C[place]2.[place].2.[place] [phone] Nd dical [address] 2021-02-08 2021-02-08 Telephone [facility] 1.2.953.273 [id number] Univers 00:00:00 00:00:00 Juan Daniel Martin 350.1.13.10 ity of [place] 4.2.7.2.[place] [phone] Nd dicor nal 059 [facility] 2021-02-08 2021-02-08 [facility] 1.2.875.379 [id number] Univers 00:00:00 00:00:00 Bradly M PRIMARY 350.1.13.10 i ty of C[place] 4.2.7.2.[place] [phone] Nd dical [address] 2021-02-06 2021-02-06 [facility] [place], [facility] 1.2.840.114 [id number] Univers 00:00:00 00:00:00 Marylu Martin 350.1.13.10 it[place] of [place].2.7.2.[place] [phone] Nd dicor nal 231 [facility] 2021-02-06 2021-02-06 [facility] 1.2.840.114 [id number] Univers 00:00:00 00:00:00 Marylu Martin 350.1.13.10 it[place] of [place] 4.2.7.2.[place] [phone] Nd dical nal 231 [facility] 2021-02-05 2021-02-05 Office [facility] 1.2.840.114 [id number] Univers 13:01:11 15:10:18 Visit Marylu Martin 350.1.13.10 ity of [place] 4.2.7.2.[place] [phone] [facility] 231 [facility] 2021-02-05 2021-02-05 Office [facility] 1.2.840.114 [id number] Univers 13:01:11 15:10:18 Visit Marylu Martin 350.1.13.10 ity of [place] 4.2.7.2.[place] [phone] [facility] 231 [facility] 2021-02-05 2021-02-05 Outpatient R DEMOND [facility] [id number] [id number] Univers 13:00:00 15:10:18 [facility] 2021-02-05 2021-02-05 [facility] [id number] [id number] Univers 13:00:00 15:10:18 [facility] 2021-02-05 2021-02-05 [facility] [id number] [id number] Univers 13:00:00 15:10:18 [facility] 2021-02-05 2021-02-05 [facility] [id number] Univers 13:00:00 15:10:18 [facility] 2021-02-05 2021-02-05 [facility] 1034 [id number] Univers 13:00:00 13:00:00 [facility] 2021-01-31 2021-01-31 Office [facility] 1.2.840.114 [id number] Univers 14:21:31 15:45:35 Visit Juan Daniel Martin 350.1.13.10 ity of [place] 4.2.7.2.[place] [phone] [facility] 059 [facility] 2021-01-31 2021-01-31 Out[facility] [id number] Univers 14:30:00 14:30:00 SENDIL ity of [facility] 2021-01-30 2021-01-30 Transition Cesilia Dolanantwan 1.2.840.114 [id number] Univers 00:00:00 00:00:00 of Care Mehul Martinezy 350.1.13.10 ity of [place] 4.2.7.2.[address] [place] [phone] [facility] [address] 2021-01-30 2021-01-30 Transition Cesilia Dolanantwan 1.2.840.114 [id number] Univers 00:00:00 00:00:00 of Care Mehul Martinezy 350.1.13.10 ity of [place].2.7.2.[place] [phone] [address] 2021-01-18 2021-01-29 [facility] Yazmin Gillette 1.2.840.11 [id number] Univers 19:53:00 19:05:00 Encounter Kelvin Darby 350.1.13.10 ity of [facility] 4.2.7.2.6 86 [place] Bradly Simms [phone] [facility] Vitolorraine Mckeon [address] [place] [address] 2021-01-18 2021-01-29 [facility] JOSE [id number] Univers 19:53:00 19:05:00 BRADLY allan [facility] 2021-01-18 2021-01-29 [facility] [id number] Univers 19:53:00 19:05:00 BRADLY allan [facility] 2021-01-25 2021-01-25 Outpatient R DEMOND [facility] [id number] Univers 13:00:00 13:00:00 MARYLU allan [facility] 2021-01-24 2021-01-24 Telephone [facility] 1.2.840.114 [id number] Univers 00:00:00 00:00:00 Marylu Martin 350.1.13.10 ity of [place].2.[place] [phone] [facility] 231 [facility] 2021-01-18 2021-01-18 Orders Doctor NAINA 1.2.840.114 [id number] Univers 00:00:00 00:00:00 Only Unassigned, MARIELOS 350.1.13.10 ity of [place] [facility] 4.2.7.2.686 [place] as [phone] [address] 2021-01-17 2021-01-17 Telephone [facility] 1.2.840.114 [id number] Univers 00:00:00 00:00:00 Marylu Martin 350.1.13.10 it[place] of [place].2.[place] [phone] [address] 2021-01-17 2021-01-17 Telephone [facility] 1.2.840.114 [id number] 00:00:00 00:00:00 Marylu Martin 350.1.13.10 [place] 4.2.7.2.686 Professio [phone] [address] 2021-01-11 2021-01-11 Telephone [facility] 1.2.840.114 [id number] Univers 00:00:00 00:00:00 Uma Martin 350.1.13.10 i [place].2.[place] [phone] [address] 2021-01-11 2021-01-11 Patient [facility] 1.2.840.114 [id number] Univers 00:00:00 00:00:00 Outreach Barbara Martin 350.1.13.10 ity of [place] 4.2.7.2.[place] [phone] Nd dic[address] 2021-01-11 2021-01-11 [facility] 1.2.840.114 [id number] Univers 00:00:00 00:00:00 Marylu Martin 350.1.13.10 it[place] of [place].7.2.[place] [phone] [facility] 044 [facility] 2021-01-10 2021-01-10 Telephone [facility] 1.2.840.114 [id number] Univers 00:00:00 00:00:00 Marylu A [place] 350.1.13.10 ity of [place] 4[place].2.[place] [phone] [address] 2021-01-10 2021-01-10 Refill [facility] 1.2.840.114 [id number] Univers 00:00:00 00:00:00 Marylu A [place] 350.1.13.10 it[place] of [place].2.[place] [phone] [address] 2021-01-10 2021-01-10 Refill [facility] 1.2.840.114 [id number] 00:00:00 00:00:00 Marylu A [place] 350.1.13.10 [place] 4.2.7.2.686 Professio [phone] [address] 2021-01-09 2021-01-09 Outpatient R BEA, [facility] [id number] Univers 13:30:00 13:30:00 BRIANA ity [facility] 2021-01-09 2021-01-09 [facility] [id number] Univers 13:30:00 13:30:00 BRIANA ity [facility] 2021-01-09 2021-01-09 [facility] [id number] Univers 13:30:00 13:30:00 BRIANA ity [facility] 2021-01-09 2021-01-09 [facility] [id number] Univers 13:30:00 13:30:00 BRIANA ity [facility] 2021-01-03 2021-01-03 Telephone [facility] 1.2.840.114 [id number] Univers 00:00:00 00:00:00 Marylu Martin 350.1.13.10 it[place] of [place].2.[place] [phone] Nd dical nal 044 [facility] 2021-01-01 2021-01-01 Emergency Foster, [facility] 1.2.840.114 [id number] [facility] 16:04:00 18:20:00 Bernardino Martin 350.1.13.10 i ty of [place] 4.2.7.2.686 [place] [id number] [facility] [address] 2021-01-01 2021-01-01 Telephone [facility] 1.2.840.114 [id number] [facility] 00:00:00 00:00:00 Marylu Martin 350.1.13.10 it[place] of [place]2.[place].2.[place] [phone] Nd dical nal 044 [facility] 2020-12-29 2020-12-29 Patient Chriss [facility] 1.2.840.[id number] [place] [address] 00:00:00 00:00:00 Outreach Barbara Martin 350.1.13.10 it[place] of [place] 4.2.7.2.686 [place] [phone] Nd dical nal 231 [facility] 2020-12-29 2020-12-29 Telephone Demond [facility] 1.2.840.114 [id number] Univers 00:00:00 00:00:00 Marylu Martin 350.1.13.10 it[place] of [place].2.[place] [phone] Nd dical nal 231 [facility] 2020-12-28 2020-12-28 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 13.10 it[place] of [place] 4.2.7.2.[place] [phone] Me dical nal 353 [facility] 2020-12-28 2020-12-28 Office [facility] 1.2.840.114 [id number] [facility] 13:00:56 15:02:32 Visit Marylu Martin 350.1.13.10 it[place] of [place].2.[place] [phone] [address] 2020-12-28 2020-12-28 Office [facility] 1.2.840.114 [id number] 13:00:56 15:02:32 Visit Marylu [place] 350.1.13.10 [place] 4.2.7.2.686 Professio [phone] [address] 2020-12-28 2020-12-28 [facility] [id number] [facility] 13:00:00 13:00:00 MARYLU ity of [facility] 2020-12-19 2020-12-19 Telephone [facility] 1.2.840.114 [id number] Univers 00:00:00 00:00:00 Marylu [place] 350.1.13.10 ity of [place] 4[place]2.7.2.[place] [phone] [facility] 044 [facility] 2020-12-15 2020-12-15 Telephone [facility] 1.2.840.114 [id number] Univers 00:00:00 00:00:00 Marylu [place] 350.1.13.10 ity of [place] 4.2.7.2.[place] [phone] [facility] 231 [facility] 2020-12-13 2020-12-13 Telephone [facility] 12.840.114 [id number] Univers 00:00:00 00:00:00 Marylu A [place] 350.1.13.10 ity of [place] 4[place]2.7.2.[place] [phone] [facility] 231 [facility] 2020-12-07 2020-12-07 Outpatient R BEA, [facility] [id number] Univers 09:00:00 09:00[facility] 2020-12-07 2020-12-07 Outpatient R BEA, [facility] [id number] Univers 09:00:00 09:00:00 [facility] 2020-12-07 2020-12-07 Outpatient R BEA, [facility] [id number] Univers 09:00:00 09:00:00 [facility] 2020-12-07 2020-12-07 Telephone [facility] 1.2.840.114 [id number] Univers 00:00:00 00:00:00 Marylu Martin 350.1.13.10 [facility] 4.2.7.2.686 Sonja Kerr [phone] [address] 2020-12-05 2020-12-05 Outpatient R ANGELLA, [facility] [id number] Univers 15:00:00 15:00:00 [facility] 2020-12-05 2020-12-05 Outpatient R ANGELLA, [facility] [id number] Univers 15:00:00 15:00:00 [facility] william o [facility] 2020-12-05 2020-12-05 Outpatient R ANGELLA, [facility] [id number] Univers 15:00:00 15:00:00 [facility] william o [facility] 2020-12-04 2020-12-04 Outpatient R AJ, [facility] [id number] Univers 10:00:00 10:00:00 [facility] 2020-12-04 2020-12-04 Outpatient R AJ, [facility] [id number] Univers 10:00:00 10:00:00 [facility] 2020-12-04 2020-12-04 Outpatient R AJ, [facility] [id number] Univers 10:00:00 10:00:00 [facility] 2020-12-01 2020-12-01 Outpatient R DEMOND [facility] [id number] Univers 13:40:00 13:40:00 MARYLU allan [facility] 2020-12-01 2020-12-01 Outpatient R DEMOND [facility] [id number] Univers 13:40:00 13:40:00 MARYLU allan [facility] 2020-12-01 2020-12-01 Outpatient Chi LAGOS [facility] [id number] Univers 13:40:00 13:40:00 MARYLU allan [facility] 2020-11-28 2020-11-29 Emergency ZuritaWilly [facility] 1.2.840. 114 [id number] Univers 12:37:00 15:13:00 Chacorta Flores 350.1.13.10 ity [facility] 4.2.7.2.686 [place] [id number] [address] 2020-11-28 2020-11-[address] [facility] 1.2.840.114 [id number] Univers 11:33:51 12:50:43 Visit [facility] 350.1.13.10 i Mohit 4.2.7.2.686 [place] as Professio [phone] [address] Office Building One 2020-11-28 2020-11-28 [facility] [id number] Univers 11:30:00 11:30:00 LANCE thomasy o f [facility] 2020-11-24 2020-11-24 [facility]ill [facility] 1.2.840.114 [id number] Univers 00:00:00 00:00:00 Lance Martin 350.1.13.10 ity [facility] 4.2.7.2.[place] [phone] [address] Building 2020-11-16 2020-11-16 [facility] [id number] Univers 14:00:00 14:00:00 LANCE ity o f [facility] 2020-11-16 2020-11-16 Outpatient R ANTONELLA, [facility] [id number] Univers 14:00:00 14:00:00 LANCE shaw [facility] 2020-11-16 2020-11-16 Outpatient R ANTONELLA [facility] [id number] Univers 14:00:00 14:00:00 LANCE shaw [facility] 2020-11-08 2020-11-08 Outpatient R ANGELLA, [facility] [id number] Univers 10:20:00 10:20:00 JULIETA méndez [facility] 2020-11-08 2020-11-08 Outpatient R ANGELLA, [facility] [id number] Univers 10:20:00 10:20:00 JULIETA méndez [facility] 2020-11-08 2020-11-08 Outpatient R ANGELLA, [facility] [id number] Univers 10:20:00 10:20:00 JULIETA méndez [facility] 2020-11-07 2020-11-07 Outpatient R BEA, [facility] [id number] Univers 14:30:00 14:30:[address] [facility] 2020-11-07 2020-11-07 Outpatient R [facility] [id number] Univers 11:20:00 11:20:[address] [facility] 2020-11-07 2020-11-07 Outpatient R [facility] [id number] Univers 11:20:00 11:20:[address] [facility] 2020-11-02 2020-11-[address] [facility] 1.2.840.114 [id number] Univers 13:04:23 14:12:47 Visit Lance Martin 350.1.13.10 [facility] 4.2.7.2.686 Sonja Kerr [phone] [address] 2020-11-02 2020-11-02 [facility] [id number] Univers 13:00:00 14:12:47 LANCE méndez [facility] 2020-11-02 2020-11-02 Outpatient R ANTONELLA [facility] [id number] Univers 13:00:00 14:12:47 LANCE williamy o areli [facility] 2020-11-02 2020-11-02 Outpatient R ANTONELLA [facility] [id number] Univers 13:00:00 14:12:47 LANCE williamy o areli [facility] 2020-11-02 2020-11-02 Outpatient R ANTONELLA [facility] [id number] Univers 13:00:00 13:00:00 LANCE williamy o areli [facility] 2020-11-02 2020-11-02 Transition Rosaline Kirk 1.2.840.114 [id number] Univers 00:00:00 00:00:00 of Bridget Castillo 350.1.13.10 it y of [place] [id number] [place] [id number] [facility] [address] 2020-10-30 2020-11-01 Outpatient X ARCELIALAUREL [facility] [id number] Univers 16:03:00 16:48:00 [facility] 2020-10-30 2020-11-01 Emergency Héctor Ruiz 1.2.840. 114 [id number] Univers 16:03:00 16:48:00 Lm Sampson [id number] ity of [facility] [id number] [place] [id number] [facility] [address] 2020-10-30 2020-10-30 Office [place], [facility] 1.2.840.114 [id number] Univers 13:14:59 14:53:45 Visit Marylu Martin [id number] [id number] [id number] [address] [facility] 2020-10-30 2020-10-30 [facility] [id number] Univers 13:00:00 13:00:00 MARYLU allan of [facility] 2020-10-15 2020-10-17 Inpatient X EDITA [facility] JOSE [id number] Univers 16:54:00 05:30:00 YESSENIA ity of [facility] 2020-10-15 2020-10-17 [facility] Willy Zurita [facility] 1.2.840.1 [id number] Univers 16:54:00 05:30:00 Encounter Yessenia Iqbal Mario [id number] 0 ity of Jennifer Walden [id number] [facility] [id number] [facility] [address] 2020-10-17 2020-10-17 Telephone [facility] 1.2.840.114 [id number] Univers 00:00:00 00:00:00 Marylu Martin [id number] [id number] [id number] [facility] 044 [facility] 2020-10-10 2020-10-10 Refill [facility] 1.2.840.114 [id number] Univers 00:00:00 00:00:00 Marylumiguel angel Martin 350.1.13.10 [place] [phone] [facility] 231 [facility] 2020-10-09 2020-10-09 Telephone [facility] 1.2.840.114 [id number] Univers 00:00:00 00:00:00 Marylu [place] 350.1.13.10 [place] [phone] Nd dical nal 231 [facility] 2020-09-13 2020-09-13 Transition Rosaline Dolan 1.2.840.114 [id number] Univers 00:00:00 00:00:00 of Care Mehul Castillo 350.1.13.10 ity of [place].[address] [place] [phone] [facility] [address] 2020-09-11 2020-09-12 Emergency Rafael Haro [facility] 1.2.840. 114 [id number] Univers 08:37:00 12:20:00 Jennifer Walden 350.1.13.10 [place] [phone] [facility] [address] [place] 2020-09-08 2020-09-08 Telephone [facility] 1.2.840.114 [id number] Univers 00:00:00 00:00:00 Marylu Martin 350.1.13.10 [place] [phone] Nd dical nal 231 [facility] 2020-08-19 2020-08-19 [facility] 1.2.840.114 [id number] Univers 00:00:00 00:00:00 Outreach [facility] 350.1.13.10 i ty [facility] [place] [phone] Nd dical [address] [place] 2020-08-18 2020-08-18 [facility] [id number] Univers 14:40:00 14:40:00 [facility] 2020-08-18 2020-08-18 [id number] Univers 14:40:00 14:40:00 [facility] 2020-08-18 2020-08-18 [facility] [id number] Univers 14:40:00 14:40:00 [facility] 2020-08-16 2020-08-16 Telephone [facility] 1.2.840.114 [id number] Univers 00:00:00 00:00:00 Marylu Martin 350.1.13.10 [place] [phone] Nd dical nal 044 [facility] 2020-08-14 2020-08-14 Outpatient R PRECIOUS [facility] [id number] Univers 12:30:00 12:30:00 JOSE itchristopher [facility] 2020-08-14 2020-08-14 Outpatient R PRECIOUS [facility] [id number] Univers 12:30:00 12:30:00 JOSE ity [facility] 2020-08-14 2020-08-14 Outpatient R PRECIOUS [facility] [id number] Univers 12:30:00 12:30:00 JOSE y [facility] 2020-07-11 2020-07-11 [facility]phone [facility] 1.2.840.114 [id number] [facility] 00:00:00 00:00:00 Marylu Martin 350.1.13.10 [place] [phone] [address] 2020-06-28 2020-06-28 [facility] 1.2.840.[id number] [place] [address] 00:00:00 00:00:00 Outreach Barbara Martin 350.1.13.10 it[place] of [place] [phone] [address] 2020-06-27 2020-06-27 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 13.10 it[place] of [place] [phone] [facility] 353 [facility] 2020-06-27 2020-06-27 Office [facility] 1.2.840.114 [id number] Univers 09:38:13 11:01:45 Visit Marylu Martin 350.1.13.10 [place] of [place] [phone] [address] 2020-06-27 2020-06-27 Outpatient R DEMOND [facility] [id number] Univers 09:20:00 09:20:00 MARYLU allan [facility] 2020-06-27 2020-06-27 Orders Doctor NAINA 1.2.840.114 [id number] Univers 00:00:00 00:00:00 Only Unassigned, MARIELOS 350.1.13.10 ity of [place] [facility] 4.2.7.2.[phone] [facility] [address] 2020-06-27 2020-06-27 Letter Doctor NAINA 1.2.840.114 [id number] Univers 00:00:00 00:00:00 (Out) Unassigned, MARIELOS 350.1.13.10 ity of [place] [facility] 4.2.7.2.[phone] [facility] [address] 2020-06-27 2020-06-27 Telephone Demond [facility] 1.2.840.114 [id number] Univers 00:00:00 00:00:00 Marylu Martin 350.1.13.10 it[place] of [place]2.[place] [facility] [phone] Nd dical [facility] [address] [facility] 2020-04-04 2020-04-04 (TEL) STLC STLMLC [id number] Co mmon 00:00:00 00:00:00 [facility] 2020-04-03 2020-04-03 OFFICE STLMLC STLMLC [id number] Co mmon 00:00:00 00:00:00 VISIT Spirit [facility] PT - [facility] LEVEL 4 [facility] 2020-04-03 2020-04-03 (TEL) [facility] [id number] Co mmon 00:00:00 00:00:00 [facility] 2020-03-27 2020-03-29 Emergency Becky Anton [facility] 1.2.8 40.114 [id number] Univers 17:12:00 17:10:00 Chacorta Flores 350.1.13.10 it[place] of [place] [phone] [facility] [address] 2020-03-23 2020-03-23 Letter Raul [facility] 1.2.840.114 [id number] Univers 00:00:00 00:00:00 (Out) Elainaravin Martin 350.1.13.10 [place]y of [place] 4.2.7.2.686 [facility] [phone] [facility] [address] 2020-03-21 2020-03-21 (TEL) STLMLC STLMLC [id number] Co mmon 00:00:00 00:00:00 [facility] 2020-03-15 2020-03-15 Transition Rosaline Dolan 1.2.840.114 [id number] Univers 00:00:00 00:00:00 of Care Mehul Martinezy 350.1.13.10 ity of [place] 4.2.7.2.686 [facility] [phone] [facility] [address] 2020-03-08 2020-03-14 [facility] Esequiel Odom [facility]AM[facility] 1.2.8 40.114 [id number] Univers 17:36:00 18:10:00 Encounter Rafael Haro 350.1.13.10 ity of [place] 4.2.7.2.686 [facility] [phone] Medical [address] 2020-03-08 2020-03-08 (TEL) STLMLC STLMLC [id number] Co mmon 00:00:00 00:00:00 [facility] 2020-03-03 2020-03-03 Emergency Roth, [facility] 1.2.840.114 [id number] Univers 18:26:00 23:02:00 Zee Martin 350.1.13.10 i ty of [place] 4.2.7.2.686 [facility] [phone] [facility] [address] 2020-03-03 2020-03-03 (TEL) STLMLC STLMLC [id number] Co mmon 00:00:00 00:00:00 [facility] 2020-03-01 2020-03-01 (TEL) STLMLC STLMLC [id number] Co mmon 00:00:00 00:00:00 [facility] 2020-02-22 2020-02-22 (TEL) STLMLC STLMLC [id number] Co mmon 00:00:00 00:00:00 [facility] 2020-02-13 2020-02-18 Hospital Yazmin Gillette [facility] 1.2.840.11 4 [id number] Univers 17:07:00 18:00:00 Encounter Avis Guo 350.1.13.10 ity of [place] 4.2.7.2.686 [facility] [phone] [place] [id number] Branch 2020-02-18 2020-02-18 [facility] [id number] Univers 12:00:00 12:00:00 BERNARDINO allan [facility] 2020-02-13 2020-02-13 Orders Doctor CHEW 1.2.840.114 [id number] 00:00:00 00:00:00 Only Unassigned, MARIELOS 350.1.13.10 ity of [place] [facility] 4.2.7.2.686 [facility] [phone] [facility] [address] 2020-01-28 2020-01-28 [facility] [id number] Common 08:27:00 08:27:[address] [facility] 2020-01-26 2020-01-26 Outpatient [facility] [id number] Common 11:04:00 11:04:[address] [facility] 2020-01-07 2020-01-07 [facility]patient [facility] [id number] Univers 08:30:00 08:30:00 BERNARDINO allan [facility] 2020-01-05 2020-01-05 Outpatient [facility] [id number] Common 16:30:00 16:30:[address] [facility] 2020-01-03 2020-01-03 Outpatient [facility] [id number] Common 10:59:00 10:59:[address] [facility] 2019-12-17 2019-12-17 [facility] 1.2.103.091 [id number] [facility] 12:00:00 12:30:00 Visit Bernardino Le Mario 350.1.13.10 i ty of [place] [phone] Nd dical nal 220 [facility] 2019-12-17 2019-12-17 [facility] [id number] [facility] 12:00:00 12:00:00 BERNARDINO [facility]an [facility] 2019-12-08 2019-12-08 Orders Doctor NAINA 1.2.840.114 [id number] [facility] 00:00:00 00:00:00 Only Unassigned, MARIELOS 350.1.13.10 ity of [place] [facility] 4.2.7.2.686 [place] [phone] [address] 2019-12-07 2019-12-07 [facility] 1.2.840.114 [id number] Univers 00:00:00 00:00:00 Bernardino Martin 350.1.13.10 i ty of [place] [phone] Nd dical nal 220 [facility] 2019-11-24 2019-11-24 Outpatient [facility] 31 [id number] Common 11:16:00 11:16:00 t [facility] [address] [facility] 2019-11-24 2019-11-24 Outpatient [facility] 30 [id number] Common 11:15:00 11:15:[address] [facility] 2019-11-11 2019-11-11 Outpatient [facility] 30 [id number] Common 09:41:00 09:41:[address] [facility] 2019-11-10 2019-11-10 Outpatient [facility] [id number] Common 10:30:00 10:30:00 [facility] [facility] 2019-03-27 2019-03-27 Emergency [facility] [id number] [place] 11:00:00 11:00:00 [facility] 2019-03-27 2019-03-27 Emergency [facility] [id number] [place] 10:55:25 10:55:25 Health 2019-03-27 2019-03-27 Emergency [facility] [id number] [place] 08:02:06 08:02:06 Health 2019-03-27 2019-03-27 Emergency [facility] [id number] [place] 00:00:00 00:00:00 Health Results Test Description Test Time Test Comments Results Result Comments Source POCT GLUCOSE (AUTOMATED) 2022-03-17 16:47:27 Test Item Value Reference Range Interpretation Comme nts POCT GLU (test code = 1397025579) 100 mg/dL 70-110 Lab Interpretation (test code = 59425-5) Normal [facility] GLUCOSE (AUTOMATED)2022-03-17 12:45:10 Test Item Value Reference Range Interpretation Comments POCT GLU (test code = 1275267737) 224 mg/dL 70-110 H Lab Interpretation (test code = Abnormal 60227-3) [facility] GLUCOSE (AUTOMATED)2022-03-17 02:18:30 Test Item Value Reference Range Interpretation Comments POCT GLU (test code = 8357910721) 257 mg/dL 70-110 H Lab Interpretation (test code = Abnormal 98593-2) [facility] GLUCOSE (AUTOMATED)2022-03-16 22:00:41 Test Item Value Reference Range Interpretation Comments POCT GLU (test code = 1504273534) 235 mg/dL 70-110 H Lab Interpretation (test code = Abnormal 15243-0) [facility] GLUCOSE (AUTOMATED)2022-03-16 17:08:09 Test Item Value Reference Range Interpretation Comments POCT GLU (test code = 7282741327) 213 mg/dL 70-110 H Lab Interpretation (test code = Abnormal 03548-8) [facility] GLUCOSE (AUTOMATED)2022-03-16 13:06:23 Test Item Value Reference Range Interpretation Comments POCT GLU (test code = 2872293570) 235 mg/dL 70-110 H Lab Interpretation (test code = Abnormal 60798-7) [facility] GLUCOSE (AUTOMATED)2022-03-16 02:25:55 Test Item Value Reference Range Interpretation Comments POCT GLU (test code = 7591485840) 394 mg/dL 70-110 H Lab Interpretation (test code = Abnormal 21434-8) [facility] GLUCOSE (AUTOMATED)2022-03-16 00:56:51 Test Item Value Reference Range Interpretation Comments POCT GLU (test code = 8462987662) 391 mg/dL 70-110 H Lab Interpretation (test code = Abnormal 28836-4) [id number] 23:04:18 Test Item Value Reference Interpretation Comments Range D-DIMER (test code = See_Comment H [Autom ated 4499839573) message] The system which generated this result transmitted reference range : <0.41 ?g/mL (FEU). The reference range was not used to interpret this result as normal/abnormal . BRENDON (test code = This test may be BRENDON) used in conjunction with a clinical pretest probability (PTP) assessment model to exclude venous thromboembolism (VTE) in patients suspected of deep venous thrombosis (DVT) and pulmonary embolism (PE) A D-Dimer value less than 0.50 ?g/ml (FEU) has a negative predicative value of 96 to 100% (95% CI)and 97 to 100% (95% CI) as an aid in the diagnosis of deep vein thrombosis (DVT) and pulmonary embolism when there is low or moderate pretest probability of PE or DVT. D-Dimer values are expressed in initial fibrinogen equivalent units (FEU)" The assay results should be used with other information, including the clinical context, in forming a diagnosis. Lab Interpretation Abnormal (test code = 91221-4) [facility] GLUCOSE (AUTOMATED)2022-03-15 22:21:06 Test Item Value Reference Range Interpretation Comments POCT GLU (test code = 3398415058) 425 mg/dL 70-110 H Lab Interpretation (test code = Abnormal 27217-3) [facility]2021-[facility]-08 17:26:00 Test Item Value Reference Range Interpretation Comments GLUBED (test code = 246 MG/DL 70-110 H Performe d by certified GLUBED) transfer and pumphouse operator at [facility] [id number] 13:12:00 Test Item Value Reference Range Interpretation Comments GLUBED (test code = 233 MG/DL 70-110 H Performe d by certified GLUBED) transfer and pumphouse operator at [facility] [id number] 08:24:00 Test Item Value Reference Range Interpretation Comments GLUBED (test code = 157 MG/DL 70-110 H Performe d by certified GLUBED) transfer and pumphouse operator at [facility] [id number] 06:46:00 Test Item Value Reference Range Interpretation Comments GLUBED (test code = 159 MG/DL 70-110 H Performe d by certified GLUBED) transfer and pumphouse operator at [facility] [id number] 20:20:00 Test Item Value Reference Range Interpretation Comments GLUBED (test code = 174 MG/DL 70-110 H Performe d by certified GLUBED) transfer and pumphouse operator at [facility] [id number] 17:34:00 Test Item Value Reference Range Interpretation Comments GLUBED (test code = 101 MG/DL 70-110 N Performe d by certified GLUBED) transfer and pumphouse operator at [facility] [id number] 12:09:00 Test Item Value Reference Range Interpretation Comments GLUBED (test code = 176 MG/DL 70-110 H Performe d by certified GLUBED) transfer and pumphouse operator at [facility] BASIC METABOLIC [id number] 11:39:00 Test Item Value Reference Range Interpretation [...] 8.3 mg/dL 8.0-10.5 N CA) CBC W/AUTO [id number] 11:24:00 Test Item Value Reference Range Interpretation [...] DIFF REQUIRED (test code NO = MDIFF) [id number] 06:50:00 Test Item Value Reference Range Interpretation Comments GLUBED (test code = 192 MG/DL 70-110 H Performe d by certified GLUBED) transfer and pumphouse operator at [facility] [id number] 19:48:00 Test Item Value Reference Range Interpretation Comments GLUBED (test code = 187 MG/DL 70-110 H Performe d by certified GLUBED) transfer and pumphouse operator at [facility] [id number] 17:18:00 Test Item Value Reference Range Interpretation Comments GLUBED (test code = 128 MG/DL 70-110 H Performe d by certified GLUBED) transfer and pumphouse operator at [facility] C REACTIVE [id number] 13:50:00 Test Item Value Reference Range Interpretation Comments C REACTIVE PROTEIN (test code = CRP) 8.0 mg/L <10.0 N BASIC METABOLIC [id number] 13:50:00 Test Item Value Reference Range Interpretation [...] 8.7 mg/dL 8.0-10.5 N CA) CBC W/AUTO [id number] 13:19:00 Test Item Value Reference Range Interpretation [...] REQUIRED (test code = MDIFF) CBC W/AUTO [id number] 13:19:00 Test Item Value Reference Range Interpretation [...] DIFF REQUIRED (test code NO = MDIFF) [id number] 12:05:00 Test Item Value Reference Range Interpretation Comments GLUBED (test code = 209 MG/DL 70-110 H Performe d by certified GLUBED) transfer and pumphouse operator at [facility] [id number] 08:16:00 Test Item Value Reference Range Interpretation Comments GLUBED (test code = 208 MG/DL 70-110 H Performe d by certified GLUBED) transfer and pumphouse operator at [facility] [id number] 20:50:00 Test Item Value Reference Range Interpretation Comments GLUBED (test code = 232 MG/DL 70-110 H Performe d by certified GLUBED) transfer and pumphouse operator at [facility] [id number] 18:45:00 Test Item Value Reference Range Interpretation Comments GLUBED (test code = 146 MG/DL 70-110 H Performe d by certified GLUBED) transfer and pumphouse operator at [facility] - DUP LE ART [id number] 17:18:00 [facility] 1960 Sex: M Name: MARCOS RAMOS [facility] [place] : 1960 Age/S: 60 / M [address] [place], [place] [address]vd Unit #: [id number] Loc: [place] [address] Phys: Mark Alexander APPLICATION INTEGRATION ARCHITECT Acct: [id number] Dis Date: Status: ADM IN PHONE #: [phone] Exam Date: 07/14/2020 1655 FAX #: [phone] Reason: bilat foot uclers EXAMS: CPT CODE: [id number] [facility] 93546 Clinical Indication: Bilateral foot ulcers; Comparison: None TECHNIQUE: Bilateral lower extremity arterial Doppler evaluation without ABIs was performed with arce scale, color Doppler, and spectral Doppler evaluation. 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 FINDINGS: RIGHT LOWER EXTREMITY: ORDER EXPEDITER: Patent, triphasic waveform. SFA: Patent, triphasic waveform. Popliteal: Patent, triphasic waveform. Posterior tibial: Patent, triphasic waveform.Dorsalis pedis: Patent, triphasic waveform. LEFT LOWER EXTREMITY: ORDER EXPEDITER: Patent, triphasic waveform. SFA: Patent, biphasic waveform. Popliteal: Patent, triphasic waveform. Posterior tibial: Patent, biphasic waveform. Dorsalis pedis: Patent, triphasic waveform. IMPRESSION: Patent bilateral lower extremity arterial vasculature with multiphasic waveforms. SL: [id number] at 1718 Reported and signed by: Kuldeep Kuo M.D. PAGE 1 Signed Report (CONTINUED) Name: MARCOS RAMOS [facility] : 1960 Age/S: 60 / M [address] [facility] Unit #: [id number] Loc: [place] [address] Phys: Mark Alexander NP Acct: [id number] Dis Date: Status: ADM IN PHONE #: [phone] Exam Date: 07/14/20201654 FAX #: [phone] Reason: bilat foot uclers EXAMS: CPT CODE: [id number] [facility] 29196 (Continued) CC: Judah Campuzano MD; Mark Alexander NP Technologist: Sherin Hudson RDMS(AB) Trnscb Date/Time: 07/14/2020 (1717) [id number].[id number].KM28 Orig Print D/T: S: 07/14/2020 (172) Probe: PAGE 2 Signed Report- DUP VEIN [id number] 17:03:00 [facility] MATY CARMELName: MARCOS RAMOS : 1960 Sex: M Name: MARCOS RAMOS [facility] Maty Martinez : 1960 Age/S: 60 / M [address] [place] [address] Unit #: [id number] Loc: [place] [address] Phys: Jocelynn MehtaC Acct: [id number] Dis Date: Status: ADM IN PHONE #: [phone] Exam Date: 07/14/20201654 FAX #: [phone] Reason: hx of DVT EXAMS: CPT CODE: [id number] [facility] 57515 Clinical Indication: History of DVT, bilateral lower extremity pain; Comparison: None TECHNIQUE: Sonographic evaluation of the bilateral lower extremity veins was performed using high resolution B-mode imaging, along with pulse and color Doppler imaging. FINDINGS: Right lower extremity: Nonocclusive thrombus in the right popliteal vein. Common femoral, femoral, and posterior tibial veins are patent. Saphenofemoral junction is patent. Left lower extremity: Thrombus iden tified in the femoral vein and popliteal vein. Common femoral and posterior tibial veins are patent.Saphenofemoral junction is patent. IMPRESSION: Bilateral lower extremity DVT. Findings relayed to the patient's nurse Porfirio at 1702 hours on 07/14/2020. SL: [id number] at 1703 Reported and signed by: Kuldeep Kuo M.D. CC: Jocelynn Mehta; Judah Campuzano MD Technologist: Sherin Hudson RDMS(AB) Trnscb Date/Time: 07/14/2020 (1703) [email or web address] Orig Print D/T: S: 07/14/2020 (1706) Probe: PAGE 1 Signed [id number] 16:30:00 Test Item Value Reference Range Interpretation [...] APPROPRIATECLIN ICAL EUALUATIONS. - CTA CHEST FOR [id number] 16:24:00 [facility] MATY CARMELName: MARCOS RAMOS : 1960 Sex: M Name: MARCOS RAMOS [facility] : 1960 Age/S: 60 / M [address] [place] [address] Blvd Unit #: [id number] Loc: [place] [address] Phys: Jocelynn Mehta APPLICATION INTEGRATION ARCHITECTDean Acct: [id number] Dis Date: Status: ADM IN PHONE #: [phone] Exam Date: 07/14/2020 1553 FAX #: [phone] Reason: rule out PE, Hx of PE EXAMS: CPT CODE: [id number] [place] [address] Clinical Indication: History of PE. Shortness of [...] normal caliber. Scattered atelectatic changes and calcified granulomata.No consolidation, pleural effusion, or pneumothorax. No groundglass opacities. Heart size normal. Moderate coronary artery calcifications. Calcified mediastinal and hilar lymph nodes. Visualized thyroid gland is unremarkable. Central airway is patent. Thickening of the mid esophagus. Partially imaged u pper abdomen shows few calcified hepatic granulomata. Degenerative changes of the spine. IMPRESSION:1. No CT angiographic evidence of acute pulmonary embolism. No chronic thrombotic changes. 2. Thickening of the mid esophagus, possibly esophagitis or underlying lesion. Correlate clinically. 3. Moderate coronary artery calcifications. 4. Evidence of prior granulomatous process. SL: [id number] PAGE1 Signed Report (CONTINUED) Name: MARCOS RAMOS [facility] [place] : 1960 Age/S: 60 / M [address] [place] [address] Blvd Unit #: [id number] Loc: [place] [address] Phys: Jocelynn Mehta Acct: [id number] Dis Date: Status: ADM IN PHONE #: [phone] Exam Date: 07/14/2020 1553 FAX #: [phone] Reason: rule out PE, Hx of PE EXAMS: CPT CODE: [id number] [place] [address] (Continued) at 1624 Reported and signed by: Kuldeep Kuo M.D. CC: Jocelynn Mehta; Judah Campuzano MD Technologist:RT Schuyler(R) CTDI: DLP: Trnscb Date/Time: 07/14/2020 (1623) [id number].KM28 Orig Print D/T: S: 07/14/2020 (1626) PAGE 2 [id number] 15:20:00 Test Item Value Reference Range Interpretation Comments GLUBED (test code = 177 MG/DL 70-110 H Performe d by certified GLUBED) transfer and pumphouse operator at [facility] SED RATE [id number] 11:49:00 Test Item Value Reference Range Interpretation Comments SED RATE WESTERGREN (test code = 39 mm/hr 0-15 H SEDW) BASIC METABOLIC [id number] 11:18:00 Test Item Value Reference Range Interpretation [...] code = 8.6 mg/dL 8.0-10.5 N CA) [id number] 11:18:00 Test Item Value Reference Range Interpretation Comments MAGNESIUM (test code = MAG) 1.49 mg/dL 1.80-2.40 L [id number] 11:18:00 Test Item Value Reference Range Interpretation [...] may masoud y by method. CBC W/AUTO [id number] 11:02:00 Test Item Value Reference Range Interpretation [...] (test code NO = MDIFF) CBC W/AUTO [id number] 11:01:00 Test Item Value Reference Range Interpretation [...] MANUAL DIFF REQUIRED (test code = MDIFF) [id number] 10:08:00 Test Item Value Reference Range Interpretation Comments GLUBED (test code = 165 MG/DL 70-110 H Performe d by certified GLUBED) transfer and pumphouse operator at [facility] LACTIC ACID 2ND [id number] 21:31:00 Test Item Value Reference Range Interpretation Comments LACTIC ACID 2ND REPEAT (test code 1.9 mmol/L 0.4-1.9 N = LACT2) [id number] 21:04:00 Test Item Value Reference Range Interpretation Comments GLUBED (test code = 224 MG/DL 70-110 H Performe d by certified GLUBED) transfer and pumphouse operator at [facility] [id number] 19:23:00 Test Item Value Reference Range Interpretation [...] HGBA1C%) 11.2 %A1C 4.8-6.0 H LACTIC ACID [id number] 19:17:00 Test Item Value Reference Range Interpretation Comments LACTIC ACID REPEAT (test code = 2.3 mmol/l 0.4-1.9 H LACTR) UA RFLX MICR CULT IF [id number] 17:25:00 Test Item Value Reference Range Interpretation [...] culture: RiskForSepsis-no oth srcSpecimen Description: CLEAN CATCHLIPOPROTEIN [id number] 17:03:00 Test Item Value Reference Range Interpretation Comments LIPOPROTEIN LDL 165.8 mg/dL 0-100 H <100 OPTIMAL 100-129 (test code = LDL) NEAR OPTIM AL/ABOVE [id number] HIGH>BU=258 MELCHOR Y HIGH*Guidelines provided by the National Choles terol Education[employer]gra m Adult Treatment Panel III BASIC METABOLIC [id number] 16:44:00 Test Item Value Reference Range Interpretation [...] 8.8 mg/dL 8.0-10.5 N CA) HEPATIC FUNCTION [id number] 16:44:00 Test Item Value Reference Range Interpretation [...] 121 IUnit/L 20-125 N code = ALKP) [id number] 16:44:00 Test Item Value Reference Range Interpretation [...] may masoud y by method. BASIC METABOLIC [id number] 16:41:00 Test Item Value Reference Range Interpretation [...] code = CA) mg/dL 8.0-10.5 HEPATIC FUNCTION [id number] 16:41:00 Test Item Value Reference Range Interpretation Comments TOTAL PROTEIN (test code = PROT) g/dL 6.4-8.2 ALBUMIN (test code = ALB) g/dL 3.4-5.0 BILIRUBIN TOTAL (test code = BILT) mg/dL 0.0-1.0 BILIRUBIN DIRECT (test code = BILD) MG/DL 0.0-0.30 SGOT/AST (test code = AST) IUnit/L 15-37 SGPT/ALT (test code = ALT) IUnit/L 30-65 ALKALINE PHOSPHATASE TOTAL (test IUnit/L 20-125 code = ALKP) [id number] 16:41:00 Test Item Value Reference Range Interpretation [...] results may masoud y by method. LACTIC [id number] 16:39:00 Test Item Value Reference Range Interpretation Comments LACTIC ACID (test code = LACT) 2.6 mmol/L 0.4-1.9 H - XR CHEST 1 [id number] 16:34:00 [facility] 1960 Sex: M FAX: Buddy Guallpa [phone] [place]: St: ADM Name: MARCOS RAMOS [facility] [place], [place] : 1960 Age/S: 60/M [address] [place] [address] Bl Unit #: [id number] Loc: [place] [address] Phys: Buddy Pal APPLICATION INTEGRATION ARCHITECT Acct: [id number] Dis Date: Status: ADM IN PHONE #: [phone] Exam Date: 07/13/2020 1629 FAX #: [phone] Reason: sepsis EXAMS: CPT CODE: [id number] XR CHEST 1 V 52900 Portable single view AP chest INDICATION: Sepsis. [...] by: Festus Mejia M.D. CC: Buddy Pal APPLICATION INTEGRATION ARCHITECT Technologist: Meme Banerjee, RT(R); Nikki Coello, RT(R) Trnscrd Date/Time/By:07/13/2020 (9402) : By: [email or web address] Orig Print D/T: S: 07/13/2020 (6285) PAGE 1 Signed ReportCBC W/AUTO DIFF 2020-07-13 [...] (test code NO = MDIFF) CBC W/AUTO [id number] 16:27:00 Test Item Value Reference Range Interpretation [...]
[2022-03-29 03:42] LABS: Absolute Lymphocytes (CBC) 0.8 K/uL (0.7-4.9); Lymphocytes % 14.5 % (15.3-44.8); MPV 9.2 fL (7.6-11.3); RBC Red Blood Cell Count 2.33 M/uL (4.33-5.43)
[2022-03-29 03:46] LABS: Hematocrit 20.7 % (39.6-49.0)
[2022-03-29] MEDS ORDERED: FENTANYL CITR 100 MCG/2 ML ONE (04:25)
[2022-03-29 04:26] LABS: Albumin 2.6 g/dL (3.4-5.0); Bilirubin Total 0.1 mg/dL (0.2-1.0); Potassium 5.2 mmol/L (3.5-5.1); Protein, Total 6.5 g/dL (6.4-8.2)
[2022-03-29 04:27] LABS: Magnesium 1.3 mg/dL (1.8-2.4); Troponin High Sensitivity 87.2 pg/mL (<58.9)
--- NOTE | 2022-03-29 04:35 | EDPHYS ---
Physician Documentation [facility] Name: Gasper Fry Age: 62 yrs Sex: Male : 1960 Arrival Date: 03/29/2022 Time: 02:26 Bed 8 Private MD: ED Physician Carmen Finnegan HPI: 03/29 02:44 This 62 yrs old Male presents to ER via Unassigned with complaints of Chest sd2 Pain > 30 y/o. 02:44 62-year-old male presents via EMS with chief complaint of chest pain. He reports the sd2 pain radiates from one side of his chest to the other and into his left arm and has been intermittent for the past few hours. He does endorse some mild associated shortness of breath and nausea. He denies any vomiting or diaphoresis. He has no known prior cardiac history or history of NV or stents. He states he does currently have chest pain rated at an 8 out of 10 although the patient was sleeping upon my initial evaluation. He states he is currently on some kind of blood thinner as he has had a stroke in the past. . Historical: - Allergies: 02:48 Haldol (Anaphylaxis); ha1 - PMHx: 02:48 Hypertension; Diabetes - IDDM; cHRONIC FOOT WOUNDS; Kidney disease; ha1 - Immunization history:: Adult Immunizations unknown. - Social history:: Smoking status: unknown. ROS: 02:44 Constitutional: Negative for fever, chills, and weight loss, Eyes: Negative for injury, sd2 pain, redness, and discharge, Cardiovascular: Positive for chest pain, Negative for palpitations, and edema, Respiratory: Positive for shortness of breath, Negative for cough, wheezing. Abdomen/GI: Negative for abdominal pain, vomiting, diarrhea. Positive for nausea. MS/Extremity: Negative for injury and deformity, Skin: Negative for injury, rash, and discoloration, Neuro: Negative for headache, numbness and tingling. Exam: 02:44 Constitutional: This is a well developed, well nourished patient who is awake, alert, sd2 and in no acute distress. Head/Face: Normocephalic, atraumatic. Eyes: EOMI, normal conjunctiva bilaterally Chest/axilla: Normal chest wall appearance and motion. Reproducible tenderness to palpation of bilateral anterior chest wall without crepitus. Cardiovascular: Regular rate and rhythm with a normal S1 and S2. No gallops, murmurs, or rubs. 2+ distal pulses. Respiratory: Lungs have equal breath sounds bilaterally, clear to auscultation and percussion. No rales, rhonchi or wheezes noted. No increased work of breathing, no retractions or nasal flaring. Abdomen/GI: Soft, non-tender, with normal bowel sounds. No guarding or rebound. No evidence of tenderness throughout. Skin: Warm, dry with normal turgor. Normal color with no rashes, no lesions, and no evidence of cellulitis. Chronic skin changes noted to bilateral feet with previous left great toe amputation. Also new wound noted to top of 2nd left toe. Scattered abrasions to BLEs. Chronic appearing wound to R great toe with clean base and bandage in place. MS/ Extremity: Pulses equal, no cyanosis. Neurovascular intact. Full, normal range of motion. Ambulatory without difficulty. 02:44 ECG was reviewed by the Attending Physician. NSR, rate 78, no STEMI criteria sd2 Vital Signs: 02:30 BP 133 / 75; Pulse 76; Resp 18 S; Pulse Ox 98% on R/A; ha1 02:44 BP 133 / 75; Pulse 76; Resp 18 S; Temp 98.8; Pulse Ox 98% on R/A; Weight 104.33 kg; ha1 Height 6 ft. (182.88 cm); Pain 8/10; 03:30 BP 135 / 64; Pulse 74; Resp 15 S; Pulse Ox 95% on R/A; ha1 04:34 BP 156 / 84; Pulse 74; Resp 15 S; Pulse Ox 95% on R/A; ha1 05:10 BP 155 / 81; Pulse 70; Resp 12 S; Pulse Ox 95% on R/A; ha1 06:15 BP 148 / 71; Pulse 70; Resp 12 S; Pulse Ox 95% on R/A; ha1 07:24 BP 152 / 79; Pulse 70; Resp 16; Pulse Ox 94% on R/A; ll1 02:44 Body Mass Index 31.19 (104.33 kg, 182.88 cm) ha1 MDM: 02:31 Patient medically screened. sd2 02:44 Differential diagnosis: Differential diagnosis includes but is not limited to: ACS, sd2 DVT/PE, pneumothorax, dissection, musculoskeletal, anxiety, anemia, electrolyte abnormality, pneumonia, CHF, COPD among others. Data reviewed: vital signs, nurses notes, EKG. 04:31 Data reviewed: lab test result(s), radiologic studies. Counseling: I had a detailed sd2 discussion with the patient and/or guardian regarding: the historical points, exam findings, and any diagnostic results supporting the discharge/admit diagnosis, lab results, radiology results, the need for further work-up and treatment in the hospital. ED course: Labs and imaging reviewed. Labs with hypomagnesemia, elevated troponin, acute on chronic kidney dysfunction and elevated BNP. ASA given by EMS CONSULTING SALES EXECUTIVE. Fentanyl given for pain. Pt to be admitted at this time for further management. . 03/29 02:32 Order name: CBC with Diff; Complete Time: 04:07 sd2 03/29 02:32 Order name: CMP; Complete Time: 04:29 sd2 03/29 02:32 Order name: Magnesium; Complete Time: 04:29 sd2 03/29 02:32 Order name: Troponin High Sensitivity; Complete Time: 04:29 sd2 03/29 02:32 Order name: BNP; Complete Time: 04:29 sd2 03/29 04:30 Order name: PT-INR; Complete Time: 06:23 sd2 03/29 02:32 Order name: EKG - Nurse/Tech; Complete Time: 02:59 sd2 03/29 02:32 Order name: XRAY Chest (1 view) sd2 03/29 04:30 Order name: Ptt, Activated; Complete Time: 06:23 sd2 03/29 04:38 Order name: SARS RAPID; Complete Time: 06:23 bb 03/29 04:52 Order name: Type and Screen; Complete Time: 06:23 EDMS Administered Medications: 04:33 Drug: fentaNYL (PF) 50 mcg Route: IVP; Site: left antecubital; ha1 05:00 Follow up: Response: No adverse reaction; Pain is decreased; RASS: Alert and Calm (0) ha1 05:15 Drug: Magnesium Sulfate 2 grams Route: IVPB; Infused Over: 2 hrs; Site: right ha1 antecubital; 07:24 Follow up: Response: No adverse reaction; IV Status: Completed infusion; IV Intake: ll1 100ml 07:05 Not Given (given en route by EMS): Aspirin Chewable Tablet 324 mg PO once; 81 mg ll1 tablets x 4 Disposition Summary: 03/29/22 04:34 Hospitalization Ordered Hospitalization Status: Inpatient Admission sd2 Provider: Justin Valente2 Location: Telemetry/MedSurg (Inpatient) sd2 Condition: Stable sd2 Problem: new sd2 Symptoms: are unchanged sd2 Bed/Room Type: Standard sd2 Room Assignment: 409(03/29/22 06:19) mw Diagnosis - Chest pain, unspecified sd2 - Subsequent non-ST elevation (NSTEMI) myocardial infarction sd2 - Hypomagnesemia sd2 - Acute on chronic kidney dysfunction sd2 Forms: - Medication Reconciliation Form sd2 - SBAR form sd2 Signatures: Dispatcher [employer] EDAnita Way RN RN Carmen Finnegan MD MD sd2 Sona Ventura RN RN ha1 Zoe Rea, PA-C PADean walker4 Keira Roy RN ll1 Corrections: (The following items were deleted from the chart) 06:19 04:34 sd2 mw
--- NOTE | 2022-03-29 04:35 | ER ---
Nurse's Notes [facility] Name: Gasper Fry Age: 62 yrs Sex: Male : 1960 Arrival Date: 03/29/2022 Time: 02:26 Bed 8 Private MD: Diagnosis: Chest pain, unspecified;Subsequent non-ST elevation (NSTEMI) myocardial infarction;Hypomagnesemia;Acute on chronic kidney dysfunction Presentation: 03/29 02:44 Chief complaint: EMS states: 62 year old reports having chest pain for over an hour. ha1 324 mg of aspiring were given during our route. Coronavirus screen: Vaccine status:. Ebola Screen: No symptoms or risks identified at this time. Initial Sepsis Screen: Does the patient meet any 2 criteria? No. Patient's initial sepsis screen is negative. Does the patient have a suspected source of infection? No. Patient's initial sepsis screen is negative. Risk Assessment: Do you want to hurt yourself or someone else? Patient reports no desire to harm self or others. Onset of symptoms was March 29, 2022. 02:44 Method Of Arrival: EMS: [facility] ha1 02:44 Acuity: DARREL 3 ha1 Triage Assessment: 02:48 General: Appears comfortable, Behavior is calm, cooperative. Pain: Complains of pain in ha1 chest pain. Neuro: Level of Consciousness is awake, alert, obeys commands, Oriented to person, place, time, situation. Cardiovascular: Reports chest pain, Patient's skin is warm and dry. Rhythm is sinus rhythm. Respiratory: Airway is patent Trachea midline Respiratory effort is even, unlabored, Respiratory pattern is regular, symmetrical. GI: No signs and/or symptoms were reported involving the gastrointestinal system. Abdomen is non-distended, obese. Derm: Wound noted Other: foot wounds bilateral. Historical: - Allergies: 02:48 Haldol (Anaphylaxis); ha1 - PMHx: 02:48 Hypertension; Diabetes - IDDM; cHRONIC FOOT WOUNDS; Kidney disease; ha1 - Immunization history:: Adult Immunizations unknown. - Social history:: Smoking status: unknown. Screenin:54 Abuse screen: Denies threats or abuse. Denies injuries from another. Nutritional ha1 screening: No deficits noted. Tuberculosis screening: No symptoms or risk factors identified. Fall Risk Fall in past 12 months (25 points). Gait- Impaired (20 pts.). Total Martínez Fall Scale indicates Low Risk Score (25-44 pts). Fall prevention measures have been instituted. Side Rails Up X 2 Placed close to Nursing Station Frequent Obs/Assesments occuring. Assessment: 02:53 General: see triage. ha1 03:13 Reassessment: Aspirin given by EMS. order cancel by care provider. ha1 04:18 Reassessment: Patient and/or family updated on plan of care and expected duration. Pain ha1 level reassessed. Patient is alert, oriented x 3, equal unlabored respirations, skin warm/dry/pink. pain 10/10. requested pain medication. notified in shift. 05:15 Reassessment: Patient and/or family updated on plan of care and expected duration. Pain ha1 level reassessed. Patient is alert, oriented x 3, equal unlabored respirations, skin warm/dry/pink. Patient states feeling better. Patient states symptoms have improved. 06:15 Reassessment: Patient and/or family updated on plan of care and expected duration. Pain ha1 level reassessed. Patient is alert, oriented x 3, equal unlabored respirations, skin warm/dry/pink. 07:00 Reassessment: Report received from pediatric neurologist RN. ll1 07:20 Reassessment: No changes from previously documented assessment. Patient and/or family ll1 updated on plan of care and expected duration. Pain level reassessed. 07:23 Pain: Pain does not radiate. Pain began gradually. ll1 Vital Signs: 02:30 BP 133 / 75; Pulse 76; Resp 18 S; Pulse Ox 98% on R/A; ha1 02:44 BP 133 / 75; Pulse 76; Resp 18 S; Temp 98.8; Pulse Ox 98% on R/A; Weight 104.33 kg; ha1 Height 6 ft. (182.88 cm); Pain 8/10; 03:30 BP 135 / 64; Pulse 74; Resp 15 S; Pulse Ox 95% on R/A; ha1 04:34 BP 156 / 84; Pulse 74; Resp 15 S; Pulse Ox 95% on R/A; ha1 05:10 BP 155 / 81; Pulse 70; Resp 12 S; Pulse Ox 95% on R/A; ha1 06:15 BP 148 / 71; Pulse 70; Resp 12 S; Pulse Ox 95% on R/A; ha1 07:24 BP 152 / 79; Pulse 70; Resp 16; Pulse Ox 94% on R/A; ll1 02:44 Body Mass Index 31.19 (104.33 kg, 182.88 cm) ha1 ED Course: 02:26 Patient arrived in ED. dieter 02:31 Carmen Finnegan MD is Attending Physician. sd2 02:44 Sona Ventura RN is Primary Nurse. ha1 02:48 Triage completed. ha1 02:48 Arm band placed on right wrist. ha1 02:58 XRAY Chest (1 view) In Process Unspecified. EDMS 03:28 Inserted saline lock: 22 gauge in right forearm, using aseptic technique. Blood ds4 collected. Missed attempt(s): 20 gauge in left antecubital area. Bleeding controlled, band aid applied, catheter tip intact. 04:27 Notified ED physician of a critical lab result(s). Mag of 1.3, Troponin of 87.2 Dr dieter Finnegan notified. 04:33 Justin Valente MD is Hospitalizing Provider. sd2 05:31 Type and Screen Sent. ha1 05:31 PT-INR Sent. ha1 05:33 Ptt, Activated Sent. ha1 05:46 SARS RAPID Sent. ha1 05:48 Patient has correct armband on for positive identification. Placed in gown. Bed in low ha1 position. Call light in reach. Side rails up X 1. Client placed on continuous cardiac and pulse oximetry monitoring. NIBP monitoring applied. extra gang supervisor on. 07:20 No provider procedures requiring assistance completed. Patient admitted, IV remains in ll1 place. 07:21 Patient maintains SpO2 saturation greater than 95% on room air. ll1 Administered Medications: 04:33 Drug: fentaNYL (PF) 50 mcg Route: IVP; Site: left antecubital; ha1 05:00 Follow up: Response: No adverse reaction; Pain is decreased; RASS: Alert and Calm (0) ha1 05:15 Drug: Magnesium Sulfate 2 grams Route: IVPB; Infused Over: 2 hrs; Site: right ha1 antecubital; 07:24 Follow up: Response: No adverse reaction; IV Status: Completed infusion; IV Intake: ll1 100ml 07:05 Not Given (given en route by EMS): Aspirin Chewable Tablet 324 mg PO once; 81 mg ll1 tablets x 4 Medication: 07:23 VIS not applicable for this client. ll1 Intake: 07:24 IV: 100ml; Total: 100ml. ll1 Outcome: 04:34 Decision to Hospitalize by Provider. sd2 07:21 Admitted to Med/surg accompanied by nurse, via stretcher, room 409, with chart, Report ll1 called to Marisabel Colunga 07:21 Condition: stable 07:21 Instructed on the need for admit. 07:52 Patient left the ED. ll1 Signatures: Dispatcher [employer] EDMS Guadalupe Samayoa RN RN bb Jevon Ríos ds4 Keira Roy RN RN ll1 Carmen Finnegan MD MD co2 Sona Ventura RN RN ha1 Corrections: (The following items were deleted from the chart) 05:51 05:10 Reassessment: Patient and/or family updated on plan of care and expected ha1 duration. Pain level reassessed. Patient is alert, oriented x 3, equal unlabored respirations, skin warm/dry/pink. ha1 06:16 06:15 Reassessment: Patient and/or family updated on plan of care and expected ha1 duration. Pain level reassessed. Patient is alert, oriented x 3, equal unlabored respirations, skin warm/dry/pink. ha1 07:40 07:21 Admitted to Med/surg accompanied by nurse, via stretcher, room 409, with chart, ll1 ll1
[2022-03-29] MEDS ORDERED: Magnesium Sulfate 2gm IVPB 2 G/50 ML BAG IV ONE (04:41)
--- NOTE | 2022-03-29 04:49 | P.HP ---
Certification for Inpatient Patient admitted to: Inpatient With expected LOS: >2 Midnights Patient will require the following post-hospital care: None Practitioner: I am a practitioner with admitting privileges, knowledge of patient current condition, hospital course, and medical plan of care. Services: Services provided to patient in accordance with Admission requirements found in Title 42 Section 412.3 of the Code of Federal Regulations Patient History Date of Service: 03/29/22 Reason for admission: Chest Pain, CKD, Anemia History of Present Illness: Patient is a 61-year-old male with history of diabetes mellitus type 2insulin- dependent, CKD, anemia, hypertension, hyperlipidemia, CAD, DVT on eliquis, and chronic diabetic foot ulcers who presented to the emergency department via EMS with complaints of chest pain. He reports the pain began a few hours VP CARE MANAGEMENT and states it is associated with nausea and SHOB. EMS gave 324 aspirin en route. Patient reports that he is very compliant with morning medications, but frequently forgets to take his evening medications. His labs today are significant for hemoglobin 7, hematocrit 20.7, troponin HS 87.2, magnesium 1.3, potassium 5.2, glucose 268, BUN 67, Cr 4, BNP 7397. Chest xray negative. EKG showed NSR. Patient is admitted for further management. Allergies haloperidol [From Haldol] Allergy (Verified 12/03/20 01:19) Anaphylaxis naloxone [From Narcan] Allergy (Verified 12/03/20 01:19) Anaphylaxis Home medications list reviewed: Yes Home Medications: Metoprolol Tartrate [Lopressor*] 1 tab PO BID 12/01/19 Hydralazine [Apresoline*] 25 mg PO BID #60 tab 12/06/20 Amitriptyline HCl 1 tab PO BEDTIME 10/21/21 Amlodipine [Norvasc*] 1 tab PO BEDTIME 10/21/21 Aspirin [Vazalore] 1 tab PO DAILY 10/21/21 Atorvastatin Calcium 1 tab PO BEDTIME 10/21/21 Benztropine Mesylate [Cogentin*] 1 tab PO DAILY 10/21/21 Bumetanide [Bumex*] 2 tab PO BID 10/21/21 Carvedilol [Coreg] 1 tab PO BID 10/21/21 Divalproex [Depakote Sprinkle*] 250 mg PO BEDTIME 10/21/21 Docusate Sodium [Colace] 1 tab PO BID 10/21/21 Duloxetine [Cymbalta *] 2 tab PO BEDTIME 10/21/21 Ergocalciferol (Vitamin D2) [Vitamin D2] 1 tab PO WMP 10/21/21 Escitalopram Oxalate 1.5 tab PO DAILY 10/21/21 Glipizide [Glipizide Xl] 1 tab PO BID 10/21/21 Hydralazine [Apresoline*] 1 tab PO Q8H 10/21/21 Hydrocodone Bit/Acetaminophen [Hydrocodon-Acetaminophn 10-325] 1 tab PO Q8H 10/21/21 Insulin Degludec [Tresiba] 20 units IJ BID 10/21/21 Isosorbide Mononitrate [Isosorbide Mononitrate ER] 3 tab PO DAILY 10/21/21 Mirtazapine 1 tab PO BEDTIME 10/21/21 Nitroglycerin 1 tab PO PRN PRN MDD 3 10/21/21 Pantoprazole [Protonix Tab*] 1 tab PO BID 10/21/21 Risperidone 1 tab PO DAILY 10/21/21 Semaglutide [Ozempic] 1 mg IJ WMP 10/21/21 Tamsulosin [Flomax*] 1 tab PO BID 10/21/21 Tramadol HCl [Ultram] 1 tab PO PRN PRN 10/21/21 clonazePAM [Clonazepam] 1 tab PO TID 10/21/21 Apixaban [Eliquis *] 2.5 mg PO BID #60 tablet 10/23/21 - Past Medical/Surgical History Diabetic: Yes -: Diabetes mellitus type 2, insulin-dependent -: Hypertension -: Seizure disorder -: Peripheral vascular disease -: History of osteomyelitis -: Hyperlipidemia -: Bipolar disorder -: Tobacco abuse -: schizophrenia -: History of blood clots -: CKD followed by Dr. Bolton -: CVA -: Neck and back surgery -: Right eye removal -: Right knee surgery -: Bilateral wrist surgery due to suicide attempt -: Left great toe amputation Psychosocial/ Personal History: Patient is . He has 2 children. He lives at home. - Family History Brother -: Hypertension Sister -: Diabetes Father -: Heart disease Notes: heart attack Mother -: Diabetes - Social History Smoking Status: Former smoker Alcohol use: No CD- Drugs: No Caffeine use: Yes Place of Residence: Home Review of Systems Respiratory: Shortness of Breath Cardiovascular: Chest Pain Gastrointestinal: Nausea Physical Examination - Physical Exam General: Alert, In no apparent distress HEENT: Atraumatic, Sclerae nonicteric Neck: Supple, No LAD Respiratory: Clear to auscultation bilaterally, Normal air movement Cardiovascular: Regular rate/rhythm, Normal S1 S2 Gastrointestinal: Normal bowel sounds, No tenderness Musculoskeletal: No tenderness Integumentary: No rashes Neurological: Normal strength at 5/5 x4 extr, Sensation intact, Normal affect, Abnormal speech - Studies Laboratory Data (last 24 hrs) 03/29/22 03:07: Sodium 134 L, Potassium 5.2 H, BUN 67 H, Creatinine 4.03 H, Glucose 268 H, Magnesium 1.3 L*, Total Bilirubin 0.1 L, AST 26, ALT 29, Alkaline Phosphatase 223 H 03/29/22 03:07: WBC 5.50, Hgb 7.0 L, Hct 20.7 L*, Plt Count 175 Assessment and Plan - Problems (Diagnosis) (1) Chest pain Current Visit: Yes Status: Acute Qualifiers: Chest pain type: chest pain due to myocardial ischemia Ischemic chest pain type: unstable angina pectoris Qualified Code(s): I20.0 - Unstable angina (2) Hypomagnesemia Current Visit: Yes Status: Acute (3) LISBETH (acute kidney injury) Current Visit: Yes Status: Acute (4) CKD (chronic kidney disease) Current Visit: Yes Status: Chronic Qualifiers: Chronic kidney disease stage: stage 4 (severe) Qualified Code(s): N18.4 - Chronic kidney disease, stage 4 (severe) (5) Diabetes mellitus Current Visit: Yes Status: Chronic Qualifiers: Diabetes mellitus type: type 2 Diabetes mellitus termite technician insulin use: with termite technician use Diabetes mellitus complication status: with hyperglycemia Qualified Code(s): E11.65 - Type 2 diabetes mellitus with hyperglycemia; Z79.4 - half-way (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 (6) Hypertension Current Visit: Yes Status: Chronic Qualifiers: Hypertension type: primary hypertension Qualified Code(s): I10 - Essential (primary) hypertension (7) Peripheral arterial disease Current Visit: Yes Status: Chronic (8) Anemia Current Visit: Yes Status: Acute Qualifiers: Anemia type: due to chronic kidney disease Chronic kidney disease stage: stage 4 (severe) Qualified Code(s): N18.4 - Chronic kidney disease, stage 4 (severe); D63.1 - Anemia in chronic kidney disease - Plan -Troponin HS elevated at 87.2. It has not been elevated on prior visits for chest pain. Patient on eliquis daily. Will hold off on lovenox given worsening renal function and will wait on heparin drip to see troponin trend -Cardiology consult. Echo ordered (last done in october 2021). Monitor patient on telemetry -Nephrology consulted for worsening acute on chronic renal failure. Renally dose medications. Hold nephrotoxic agents. -Worsening anemia of CKD with H/H 12/26. Type and screen ordered. Will transfuse as necessary. -ACHS accu checks with moderate sliding scale insulin and diabetic diet. A1C pending -Lipid panel and TSH -Wound healing consult. Followed by Dr. Parra. -Physical therapy consult -Monitor and replete electrolytes per protocol -Reconcile and continue home medications -Eliquis for VTE prophylaxis -Full code Discharge Plan: Home Plan to discharge in: Greater than 2 days - Advance Directives Does patient have a Living Will: Yes Does patient have a Durable POA for Healthcare: No - Code Status/Comfort Care Code Status Assessed: Yes (Full) Critical Care: No Time Spent Managing Pts Care (In Minutes): 50
[2022-03-29 05:59] LABS: Protime INR 1.1
[2022-03-29 06:18] LABS: SARS-CoV-2 Antigen Rapid Res Negative (Negative)
[2022-03-29 08:17] VITALS: TEMP 98.8
[2022-03-29 08:27] VITALS: BP 152/79; O2SAT 94
--- NOTE | 2022-03-29 12:19 | RAD REPORT ---
EXAM DESCRIPTION: XR Chest, 1 View CLINICAL HISTORY: SHORTNESS OF BREATH TECHNIQUE: Frontal view of the chest. COMPARISON: No relevant prior studies available. FINDINGS: Lungs: Unremarkable. No consolidation. Pleural space: Unremarkable. No pneumothorax. Heart: The cardiac silhouette is mildly enlarged. Mediastinum: Calcified mediastinal and hilar lymph nodes. Bones/joints: Multilevel spondylosis. No acute fracture. Moderate degenerative changes at the g lenohumeral joints bilaterally. Vasculature: Thoracic aortic atherosclerosis. Upper abdomen: Mild elevation of the right hemidiaphragm. IMPRESSION: No acute disease. Electronically signed by: Ana M Wynne MD 03/29/2022 3:24 AM CDT Due to temporary technical issues with the PACS/Fluency reporting system, reports are being signed by the in house radiologists without review as a courtesy to insure prompt reporting. The interpreting radiologist is fully responsible for the content of the report.
--- NOTE | 2022-03-30 16:55 | EKG ---
Test Date: 2022-03-29 Test Time: 01:59:01 Digital Forensic Analyst: MEASUREMENT RESULTS: Intervals: Rate: 78 CA: 180 QRSD: 100 QT: 400 QTc: 456 [place]: P: 9 CA: 180 QRS: -26 T: 47 INTERPRETIVE STATEMENTS: Normal sinus rhythm Normal ECG Compared to ECG 02/16/2022 21:16:40 Left anterior fascicular block no longer present Myocardial infarct finding no longer present Electronically Signed On 03-30-22 16:53:39 CDT by Ashu Gardiner
== END 2022-03-29 08:30 | disposition left against medical advice (07) | DRG 303 ==
LOC: ER 01:54 → ERHOLD 05:01 → 4TH 06:50
PROVIDERS: ADMIT Hospitalist; ATTEND Hospitalist
DX: I25.110 Atherosclerotic heart disease of native coronary artery with unstable angina pectoris (principal); N17.9 Acute kidney failure, unspecified; N18.4 Chronic kidney disease, stage 4 (severe); I12.9 Hypertensive chronic kidney disease with stage 1 through stage 4 chronic kidney disease, or unspecified chronic kidney disease; E11.22 Type 2 diabetes mellitus with diabetic chronic kidney disease; E11.621 Type 2 diabetes mellitus with foot ulcer; L97.519 Non-pressure chronic ulcer of other part of right foot with unspecified severity; D63.1 Anemia in chronic kidney disease; E11.51 Type 2 diabetes mellitus with diabetic peripheral angiopathy without gangrene; E11.65 Type 2 diabetes mellitus with hyperglycemia; E83.42 Hypomagnesemia; E78.5 Hyperlipidemia, unspecified; I51.3 Intracardiac thrombosis, not elsewhere classified; R77.8 Other specified abnormalities of plasma proteins; R79.89 Other specified abnormal findings of blood chemistry; Z88.8 Allergy status to other drugs, medicaments and biological substances; Z79.4 Long term (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; Z79.82 Long term (current) use of aspirin; Z86.73 Personal history of transient ischemic attack (TIA), and cerebral infarction without residual deficits; Z79.84 Long term (current) use of oral hypoglycemic drugs; Z79.01 Long term (current) use of anticoagulants; Z86.718 Personal history of other venous thrombosis and embolism; Z89.412 Acquired absence of left great toe; Z79.899 Other long term (current) drug therapy; Z87.891 Personal history of nicotine dependence; Z20.822 Contact with and (suspected) exposure to COVID-19
CPT/HCPCS: 36415; 71045; 80053; 83735; 83880; 84484; 85025; 85610; 85730; 86850; 86900; 86901; 87811; 93005; 96365; 96366; 96375; 99285; J3010; J3475